=== PATIENT | male | born 1950 | race Caucasian/White ===

== ENCOUNTER 2016-07-08 13:02 | Inpatient (IN) | payer OTHER ==
[~2016-07-08] VITALS: Ht 177.8 cm; Wt 80.1 kg
[~2016-07-08 13:02] MED LIST: ALBU0.08 INH; ALBUAER2 INH; BUSP5TAB59 PO; CLC100X PO; EPP3/2 IM; GFNSR600 PO; OMEP20CA9 PO; SERT100T PO; SUCR1TAB29 PO; SYMIN160 INH; TIOTCAP INH; TRAZ150T64 PO; ULT50X PO
[2016-07-08] MEDS ORDERED: ALBUT/IPRATROP 3MG/0.5MG NEB 3 ML VIAL INH STA (13:14)
[2016-07-08] MEDS ORDERED: METHYLPREDNISOLONE 125 MG VIAL IV STA (13:18)
[2016-07-08] MEDS ORDERED: KETOROLAC TROMETHAMINE 30 MG/ML VIAL IV STA (13:24)
[2016-07-08 13:54] LABS: VEN BLOOD GAS BASE EXCESS 2.7 mmol/L; VENOUS BLOOD GAS PCO2 49 mmHg (38.0-50.0); VENOUS BLOOD GAS PO2 23 mmHg
[2016-07-08 13:55] LABS: VEN BLD GAS O2 SATURATION < 60.0 %
--- NOTE | 2016-07-08 13:59 | DIAGNOSTIC IMAGING REPORT ---
CHEST ONE VIEW PORTABLE HISTORY: Short of breath. COMPARISON: Chest 05/19/2016. FINDINGS: No pneumothorax. No pleural effusions. The heart is normal in size. Emphysema. The upper lung zones are clear. Punctate calcified granuloma within the left midlung zone. Bilateral mid to lower lung zone interstitial thickening is slightly progressed. There is a calcified granuloma the right lung base. IMPRESSION: 1. Slight progression of bilateral mid to lower lung zone interstitial thickening. This could be chronic or due to superimposed interstitial pneumonitis. Follow-up chest x-ray is recommended to ensure resolution. 2. Emphysema. Electronically signed by: Martin Perez M.D. 07/08/2016 1:58 PM Dictated Date/Time: 07/08/2016 1:55 PM
[2016-07-08 14:00] LABS: BASO % 0.1 %; BASO ABS # 0.01 K/uL (0-0.2); COMPLETE YES; HEMATOCRIT 43.4 % (42-52); IG% 0.1 %; LYMPH % 7.3 %; LYMPH ABS # 0.54 K/uL (1.2-3.4); MEAN CELL VOLUME 87.7 fL (80-100); MEAN CORPUSCULAR HEMOGLOBIN 29.7 pg (25-34); MEAN CORPUSCULAR HGB CONC 33.9 g/dl (32-36); MEAN PLATELET VOLUME 9.4 fL (7.4-10.4); MONO % 5.7 %; NEUT % 86.8 %; PLATELET COUNT 173 K/uL (130-400); RED BLOOD COUNT 4.95 M/uL (4.7-6.1); WHITE BLOOD COUNT 7.39 K/uL (4.8-10.8)
[2016-07-08 14:16] LABS: BUN/CREATININE RATIO 13.1 (10-20); CALCIUM 8.4 mg/dl (8.5-10.1); CREATININE 1.4 mg/dl (0.60-1.40); POTASSIUM 3.6 mmol/L (3.5-5.1)
[2016-07-08 14:18] LABS: ALB/GLOB RATIO 0.9 (0.9-2)
[2016-07-08] MEDS ORDERED: ONDANSETRON INJ 2 MG/ML 2 ML VIAL IV PRN (14:30)
[2016-07-08 14:58] VITALS: O2SAT 90; Ht 177.8 cm; Wt 80.1 kg
[2016-07-08 15:19] VITALS: BP 99/62; PULSE 85; TEMP 36.8; O2SAT 88
--- NOTE | 2016-07-08 15:41 | EMERGENCY ROOM VISIT NOTE ---
History Report prepared by Georgi: Benedicto Polanco Under the Supervision of: Dr. Gerson Judd D.O. First contact with patient: 13:10 Chief Complaint: SHORTNESS OF BREATH Stated Complaint: SOB,BODY ACHES,HEADACHE Nursing Triage Summary: pt here with increased sob x a few days. pt wears 2 liters at all times. pt has hx of copd. t has non prod cough History of Present Illness The patient is a 66 year old male who presents to the Emergency Room with complaints of worsening difficulty breathing for the past 3 days. The patient additionally complains of coughing, diarrhea, nausea, a headache, and rhinorrhea. The patient states that he has COPD. He denies any history of blood clots or using any blood thinners. He states that he gets short of breath without walking around. The patient states that he has a history of pneumonia in May. Pt denies change in vision, fevers, chest pain, vomiting, pain with urination, and melena. The patient takes 2L nasal cannula at night and PRN Source of History: patient Onset: three days ago Position: other (global) Quality: other (shortness of breath) Timing: worsening Associated Symptoms: + cough, + diarrhea, + headache, + nausea Note: Associated symptoms: Rhinorrhea Review of Systems See HPI for pertinent positives & negatives. A total of 10 systems reviewed and were otherwise negative. 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 (4) PTSD (post-traumatic stress disorder) Surgical Problems: (1) H/O hernia repair (2) S/P knee replacement Family History Cancer Heart disease Hypertension Social History Smoking Status: Former Smoker Alcohol Use: none Drug Use: none Marital Status: Housing Status: unknown Occupation Status: employed Current/Historical Medications Scheduled Budesonide/Formoterol Fumarate (Symbicort 160/4.5 Inhaler ), 2 PUFF INH BID Buspirone Hcl (Buspirone Hcl), 5 MG PO HS Docusate Sodium (Colace), 100 MG PO BID Guaifenesin Ext Rel (Mucinex Ext Rel), 600 MG PO Q12 Omeprazole (Prilosec), 20 MG PO BID Sertraline Hcl (Zoloft), 200 MG PO HS Sucralfate (Carafate), 1 TAB PO QID Tiotropium [place] (Spiriva Handihaler), 1 CAP INH DAILY Trazodone Hcl (Desyrel), 150 MG PO HS Scheduled PRN Albuterol (Ventolin), 2 PUFFS INH Q6H PRN for Rescue/Asthma Symptoms Albuterol Soln (Proventil 0.083% 2.5MG/3ML), 2.5 MG INH QID PRN for SOB/Wheezing Epinephrine (Epipen 2-Wilman), 0.3 MG IM UD PRN for ALLERGIC REACTION Tramadol HCl (Tramadol HCl), 50 MG PO Q6H PRN for Pain Allergies Coded Allergies: Pneumococcal Vaccine (Verified Allergy, Severe, SWELLING, 05/19/16) Prednisone (Verified Allergy, Severe, confusion and agitation, 05/19/16) Amoxicillin (Verified Allergy, Intermediate, FACIAL SWELLING (EYES SWELLED SHUT), 05/19/16) SPOKE W/ PATIENT REGARDING ALLERGYON 10/09/11--> FACIAL SWELLING, EYES SWELLED SHUT WITH SUGMENTIN. PATIENT HAS TOLERATED ROCEPHIN IV IN PAST. Clavulanic Acid (Verified Allergy, Intermediate, FACIAL SWELLING (EYES SWELLED SHUT), 05/19/16) SEE COMMENT UNDER AMOXICILLIN Statins (Verified Allergy, Unknown, UNKNOWN, 05/19/16) Physical Exam Vital Signs Date Time Temp Pulse Resp B/P Pulse Ox O2 Delivery O2 Flow Rate FiO2 07/08/16 15:19 36.8 85 22 99/62 88 Nasal Cannula 6.0 Humidified Oxygen 07/08/16 15:13 75 23 107/51 90 07/08/16 14:58 90 Nasal Cannula 4.0 07/08/16 14:51 81 23 107/51 90 Nasal Cannula 4.0 07/08/16 13:53 84 07/08/16 13:25 92 Nasal Cannula 4.0 07/08/16 13:25 92 Nasal Cannula 4.0 07/08/16 13:04 36.4 104 20 103/65 85 Nasal Cannula 2.0 Physical Exam GENERAL: Sitting up in bed on nasal cannula. Dyspneic with conversation. EYE EXAM: normal conjunctiva OROPHARYNX: no exudate, no erythema, lips, buccal mucosa, and tongue normal and mucous membranes are moist NECK: supple, no nuchal rigidity, no adenopathy, non-tender LUNGS: Diffuse wheezing bilaterally. Coarse sounds at the bases and minimal air movement. Normal chest wall mechanics HEART: no murmurs, S1 normal and S2 normal ABDOMEN: abdomen soft, non-tender, normo-active bowel sounds, no masses, no rebound or guarding. BACK: Back is symmetrical on inspection and there is no deformity, no midline tenderness, no CVA tenderness. SKIN: no rashes and no bruising UPPER EXTREMITIES: upper extremities are grossly normal. LOWER EXTREMITIES: Calves are equal bilaterally. No pitting edema. NEURO EXAM: Normal sensorium, cranial nerves II-XII grossly intact, normal speech, no gross weakness of arms, no gross weakness of legs. Gross sensation intact. Medical Decision & Procedures ER Provider Diagnostic Interpretation: Xray results per the radiologist and my interpretation. CHEST ONE VIEW PORTABLE HISTORY: Short of breath. COMPARISON: Chest 05/19/2016. FINDINGS: No pneumothorax. No pleural effusions. The heart is normal in size. Emphysema. The upper lung zones are clear. Punctate calcified granuloma within the left midlung zone. Bilateral mid to lower lung zone interstitial thickening is slightly progressed. There is a calcified granuloma the right lung base. IMPRESSION: 1. Slight progression of bilateral mid to lower lung zone interstitial thickening. This could be chronic or due to superimposed interstitial pneumonitis. Follow-up chest x-ray is recommended to ensure resolution. 2. Emphysema. Electronically signed by: Martin Perez M.D. 07/08/2016 1:58 PM Dictated Date/Time: 07/08/2016 1:55 PM Laboratory Results 07/08/16 13:44 Red Blood Count 4.95, Mean Corpuscular Volume 87.7, Mean Corpuscular Hemoglobin 29.7, Mean Corpuscular Hemoglobin Concent 33.9, Mean Platelet Volume 9.4, Neutrophils (%) (Auto) 86.8, Lymphocytes (%) (Auto) 7.3, Monocytes (%) (Auto) 5.7, Eosinophils (%) (Auto) 0.0, Basophils (%) (Auto) 0.1, Neutrophils # (Auto) 6.41, Lymphocytes # (Auto) 0.54, Monocytes # (Auto) 0.42, Eosinophils # (Auto) 0.00, Basophils # (Auto) 0.01 07/08/16 13:44 Test 07/08/16 13:40 07/08/16 13:44 Influenza Type A Antigen Neg for Influ A (NEG) Influenza Type B Antigen Neg for Influ B (NEG) White Blood Count 7.39 K/uL (4.8-10.8) Red Blood Count 4.95 M/uL (4.7-6.1) Hemoglobin 14.7 g/dL (14.0-18.0) Hematocrit 43.4 % (42-52) Mean Corpuscular Volume 87.7 fL (80-100) Mean Corpuscular Hemoglobin 29.7 pg (25-34) Mean Corpuscular Hemoglobin Concent 33.9 g/dl (32-36) Platelet Count 173 K/uL (130-400) Mean Platelet Volume 9.4 fL (7.4-10.4) Neutrophils (%) (Auto) 86.8 % Lymphocytes (%) (Auto) 7.3 % Monocytes (%) (Auto) 5.7 % Eosinophils (%) (Auto) 0.0 % Basophils (%) (Auto) 0.1 % Neutrophils # (Auto) 6.41 K/uL (1.4-6.5) Lymphocytes # (Auto) 0.54 K/uL (1.2-3.4) Monocytes # (Auto) 0.42 K/uL (0.11-0.59) Eosinophils # (Auto) 0.00 K/uL (0-0.5) Basophils # (Auto) 0.01 K/uL (0-0.2) RDW Standard Deviation 45.0 fL (36.4-46.3) RDW Coefficient of Variation 14.1 % (11.5-14.5) Immature Granulocyte % (Auto) 0.1 % Immature Granulocyte # (Auto) 0.01 K/uL (0.00-0.02) Venous Blood pH 7.39 (7.36-7.41) Venous Blood Partial Pressure CO2 49 mmHg (38.0-50.0) Venous Blood Partial Pressure O2 23 mmHg Venous Blood HCO3 29 mmol/L Venous Blood Oxygen Saturation < 60.0 % Venous Blood Base Excess 2.7 mmol/L Anion Gap 11.0 mmol/L (3-11) Est Creatinine Clear Calc Drug Dose 53.6 ml/min Estimated GFR () 60.3 Estimated GFR (Non- 52.0 BUN/Creatinine Ratio 13.1 (10-20) Calcium Level 8.4 mg/dl (8.5-10.1) Total Bilirubin 0.4 mg/dl (0.2-1) Aspartate Amino Transf (AST/SGOT) 77 U/L (15-37) Alanine Aminotransferase (ALT/SGPT) 43 U/L (12-78) Alkaline Phosphatase 81 U/L (45-117) Total Protein 7.1 gm/dl (6.4-8.2) Albumin 3.4 gm/dl (3.4-5.0) Globulin 3.7 gm/dl (2.5-4.0) Albumin/Globulin Ratio 0.9 (0.9-2) Laboratory results per my review. Medications Administered Medications (Trade) Dose Ordered Sig/Oren Route Start Time Stop Time Status Last Admin Dose Admin Albuterol/ Ipratropium (Duoneb) 3 ml NOW STAT INH 07/08/16 13:14 07/08/16 13:16 DC 07/08/16 13:50 3 ML Methylprednisolone Sodium Succinate (Solu-Medrol IV) 125 mg NOW STAT IV 07/08/16 13:18 07/08/16 13:19 DC 07/08/16 13:50 125 MG Ketorolac Tromethamine (Toradol Inj) 30 mg NOW STAT IV 07/08/16 13:24 07/08/16 13:35 DC 07/08/16 13:50 30 MG ECG Indication: SOB/dyspnea Rate (beats per minute): 87 Rhythm: sinus rhythm Findings: Q waves (Inferior), left axis deviation ED Course ED COURSE: Vital signs were reviewed and showed normal vitals The patients medical record was reviewed The above diagnostic studies were performed and reviewed. ED treatments and interventions as stated above. 1310: The patient was evaluated in room A12. A complete history and physical examination was performed. 1314: DuoNeb 3ml INH 1318: Solu-Medrol 125mg IV 1324: Toradol Inj 30mg IV 1410: I discussed the patient's case with Dr. Rowe. He is going to evaluate the patient for further treatment 1418: Upon reevaluation, the patient is resting.I discussed my findings with the patient and he understands and agrees with the treatment plan. Based on the patients age, coexisting illnesses, exam and lab findings the decision to treat as an inpatient was made. The patient remained stable while under my care. The patient will be evaluated for further management. Medical Decision Differential diagnoses includes but is not limited to pneumonia, bronchitis, COPD/Asthma exacerbation, pneumothorax, pulmonary embolism, congestive heart failure, acute coronary syndrome Patient is a 66-year-old male with emphysema/COPD that presents the ER for 3 days worth of worsening shortness of breath associated with cough and change in sputum. Afebrile. Upon presentation he is hypoxic with O2 sats in the low 80s on his 2 L nasal cannula. He was titrated up to 5 L nasal cannula and oxygen saturation saturations floated from 88% to 90%. I was comfortable with this. He was much improved. Vitals were otherwise stable. Calves are equal bilateral. He is given hour long DuoNeb along with steroids and Levaquin. Chest x-ray showed questionable worsening consolidation the right mid to lower lung. Patient/family were updated at bedside. He was admitted to internal medicine for COPD exacerbation along with hypoxia. Negative influenza A and B. Consults Time Called: 1406 Consulting Physician: Dr. Rowe Returned Call: 1410 I discussed the patient's case with Dr. Rowe. He is going to evaluate the patient for further treatment Impression Primary Impression: COPD exacerbation Additional Impressions: Bronchitis Hypoxia Scribe Attestation The scribe's documentation has been prepared under my direction and personally reviewed by me in its entirety. I confirm that the note above accurately reflects all work, treatment, procedures, and medical decision making performed by me. Departure Information Dispostion Being Evaluated By Hospitalist Referrals No Doctor, Assigned (PCP) Patient Instructions My [facility] Problem Qualifiers
[2016-07-08] MEDS: TRAMADOL HCL 50 MG TAB PO PRN (15:50)
[2016-07-08] MEDS: ALBUT/IPRATROP 3MG/0.5MG NEB 3 ML VIAL INH SCH ×2 (17:00→19:19)
[2016-07-08] MEDS ORDERED: INFLUENZA VIRUS QUAD VACCINE 0.5 ML SYR IM. ONE (17:30)
[2016-07-08] MEDS ORDERED: INFLUENZA ADMINISTRATION CHARGE ONE (17:30)
--- NOTE | 2016-07-08 18:01 | History and Physical ---
History & Physical Date & Time of Service: Jul 08, 2016 at 16:24 Chief Complaint: Copd Exacerbation,Hypoxia Primary Care Physician: No Doctor, Assigned History of Present Illness Source: patient, family, hospital records 66 yo male with history of COPD with admissions for exacerbations, most recent in the beginning of May (1.5 months ago), presented to the ED with 2 days of worsening shortness of breath, increased cough, night sweats, decreased appetite. He says that since he was discharged in May he has felt well, these symptoms seemed to come on all of a sudden. He admits that he was around a family member last week who had the flu and he did not get his flu vaccine this past year. His cough has been more frequent, minimal sputum. More wheezing at home. He typically wears 2L NC at all times and despite that he was short of breath. No chest pain or pressure. In the ED he was hypoxic with saturations 81% on 2L. Normal lab work and CXR without an infiltrate. Given hour long nebulizer and started on Solumedrol. 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 DEMO COORDINATOR vasculitis Status: Chronic (4) PTSD (post-traumatic stress disorder) Status: Chronic Surgical Problems: (1) H/O hernia repair Status: Resolved (2) S/P knee replacement Status: Resolved Family History Family history of rectal cancer, kidney cancer, hypertension, heart disease Social History Smoking Status: Former Smoker (40 years at 2ppd (80 pack years)) Smokeless Tobacco Use: No Alcohol Use: none Drug Use: none Marital Status: Housing status: lives with family 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[employer], 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) Immunizations History of Influenza Vaccine: Yes Influenza Vaccine Date: Apr 20, 2011 History of Tetanus Vaccine?: Yes Tetanus Immunization Date: Jan 19, 2010 History of Pneumococcal: Yes Pneumococcal Date: Apr 20, 2011 History of Hepatitis B Vaccine: No Multi-Drug Resistant Organisms History of MDRO: No Allergies Coded Allergies: Pneumococcal Vaccine (Verified Allergy, Severe, SWELLING, 05/19/16) Prednisone (Verified Allergy, Severe, confusion and agitation, 05/19/16) Amoxicillin (Verified Allergy, Intermediate, FACIAL SWELLING (EYES SWELLED SHUT), 05/19/16) SPOKE W/ PATIENT REGARDING ALLERGYON 5/1/12--> FACIAL SWELLING, EYES SWELLED SHUT WITH SUGMENTIN. PATIENT HAS TOLERATED ROCEPHIN IV IN PAST. Clavulanic Acid (Verified Allergy, Intermediate, FACIAL SWELLING (EYES SWELLED SHUT), 05/19/16) SEE COMMENT UNDER AMOXICILLIN Statins (Verified Allergy, Unknown, UNKNOWN, 05/19/16) Home Medications Scheduled Budesonide/Formoterol Fumarate (Symbicort 160/4.5 Inhaler ), 2 PUFF INH BID Buspirone Hcl (Buspirone Hcl), 5 MG PO HS Docusate Sodium (Colace), 100 MG PO BID Guaifenesin Ext Rel (Mucinex Ext Rel), 600 MG PO Q12 Omeprazole (Prilosec), 20 MG PO BID Sertraline Hcl (Zoloft), 200 MG PO HS Sucralfate (Carafate), 1 TAB PO QID Tiotropium [place] (Spiriva Handihaler), 1 CAP INH DAILY Trazodone Hcl (Desyrel), 150 MG PO HS Scheduled PRN Albuterol (Ventolin), 2 PUFFS INH Q6H PRN for Rescue/Asthma Symptoms Albuterol Soln (Proventil 0.083% 2.5MG/3ML), 2.5 MG INH QID PRN for SOB/Wheezing Epinephrine (Epipen 2-Wilman), 0.3 MG IM UD PRN for ALLERGIC REACTION Tramadol HCl (Tramadol HCl), 50 MG PO Q6H PRN for Pain Review of Systems Constitutional: + chills, + fatigue, + fever, + sweats, + weakness, No weight loss Eyes: No diplopia, No discharge, No eye pain, No problem reported, No redness, No worsening of vision ENT: + nasal symptoms, No dental problems, No hearing loss, No problem reported , No sore throat, No tinnitus, No trouble swallowing, No unusual epistaxis Respiratory: + cough, + dyspnea at rest, + dyspnea on exertion, + shortness of breath, + wheezing, No hemoptysis, No sputum Cardiovascular: No PND, No chest pain, No claudication, No edema, No orthopnea , No palpitations, No problem reported Abdomen: + problem reported (decreased appetite), No GI bleeding, No constipation, No diarrhea, No nausea, No pain, No vomiting Genitourinary - Male: No dysuria, No hematuria, No urinary frequency, No urinary urgency Neurologic: No balance problems, No memory loss, No numbness/tingling, No paralysis, No problem reported, No vertigo, No weakness Psychiatric: No anhedonism, No anxiety, No depression symptoms, No insomnia, No problem reported, No substance abuse Endocrine: No excessive thirst, No excessive urination, No fatigue, No problem reported Hematologic / Lymphatic: No abnormal bleeding/bruising, No clotting problems, No night sweats, No problem reported, No swollen lymph nodes Integumentary: No bleeding, No color change, No itch, No new/changing skin lesions, No problem reported, No rash Allergic / Immunologic: No environmental allergies, No food allergies, No frequent infections, No hives, No pet sensitivities, No poor healing, No problem reported, No prolonged convalescence, No seasonal allergies Physical Exam Vital Signs Date Time Temp Pulse Resp B/P Pulse Ox O2 Delivery O2 Flow Rate FiO2 07/08/16 15:19 36.8 85 22 99/62 88 Nasal Cannula 6.0 Humidified Oxygen 07/08/16 15:13 75 23 107/51 90 07/08/16 14:58 90 Nasal Cannula 4.0 07/08/16 14:51 81 23 107/51 90 Nasal Cannula 4.0 07/08/16 13:53 84 07/08/16 13:25 92 Nasal Cannula 4.0 07/08/16 13:25 92 Nasal Cannula 4.0 07/08/16 13:04 36.4 104 20 103/65 85 Nasal Cannula 2.0 General Appearance: WD/WN, no apparent distress Head: normocephalic, atraumatic Eyes: normal inspection, EOMI, sclerae normal ENT: normal ENT inspection, hearing grossly normal, pharynx normal Neck: supple, no adenopathy, no JVD, trachea midline Respiratory/Chest: chest non-tender, no respiratory distress, no accessory muscle use, + decreased breath sounds, + wheezing Cardiovascular: regular rate, rhythm, no edema, no gallop, no JVD, no murmur, normal peripheral pulses Abdomen/GI: normal bowel sounds, non tender, soft, no organomegaly Back: normal inspection, no CVA tenderness, no muscle spasm, normal range of motion Extremities/Musculoskelatal: normal inspection, no calf tenderness, normal capillary refill, no pedal edema, normal range of motion, pelvis stable Neurologic/Psych: cafe assistant II-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 nml as tested, no motor/sensory deficits, alert, normal mood/affect, normal reflexes, oriented x 3 Skin: normal color, warm/dry, no rash Lymphatic: no adenopathy Diagnostics Laboratory Results Results Past 24 Hours Test 07/08/16 13:40 07/08/16 13:44 Range/Units Influenza Type A Antigen Neg for Influ A NEG Influenza Type B Antigen Neg for Influ B NEG White Blood Count 7.39 4.8-10.8 K/uL Red Blood Count 4.95 4.7-6.1 M/uL Hemoglobin 14.7 14.0-18.0 g/dL Hematocrit 43.4 42-52 % Mean Corpuscular Volume 87.7 80-100 fL Mean Corpuscular Hemoglobin 29.7 25-34 pg Mean Corpuscular Hemoglobin Concent 33.9 32-36 g/dl Platelet Count 173 130-400 K/uL Mean Platelet Volume 9.4 7.4-10.4 fL Neutrophils (%) (Auto) 86.8 % Lymphocytes (%) (Auto) 7.3 % Monocytes (%) (Auto) 5.7 % Eosinophils (%) (Auto) 0.0 % Basophils (%) (Auto) 0.1 % Neutrophils # (Auto) 6.41 1.4-6.5 K/uL Lymphocytes # (Auto) 0.54 1.2-3.4 K/uL Monocytes # (Auto) 0.42 0.11-0.59 K/uL Eosinophils # (Auto) 0.00 0-0.5 K/uL Basophils # (Auto) 0.01 0-0.2 K/uL RDW Standard Deviation 45.0 36.4-46.3 fL RDW Coefficient of Variation 14.1 11.5-14.5 % Immature Granulocyte % (Auto) 0.1 % Immature Granulocyte # (Auto) 0.01 0.00-0.02 K/uL Venous Blood pH 7.39 7.36-7.41 Venous Blood Partial Pressure CO2 49 38.0-50.0 mmHg Venous Blood Partial Pressure O2 23 mmHg Venous Blood HCO3 29 mmol/L Venous Blood Oxygen Saturation < 60.0 % Venous Blood Base Excess 2.7 mmol/L Sodium Level 133 136-145 mmol/L Potassium Level 3.6 3.5-5.1 mmol/L Chloride Level 95 98-107 mmol/L Carbon Dioxide Level 27 21-32 mmol/L Anion Gap 11.0 3-11 mmol/L Blood Urea Nitrogen 18 7-18 mg/dl Creatinine 1.40 0.60-1.40 mg/dl Est Creatinine Clear Calc Drug Dose 53.6 ml/min Estimated GFR () 60.3 Estimated GFR (Non- 52.0 BUN/Creatinine Ratio 13.1 10-20 Random Glucose 132 70-99 mg/dl Calcium Level 8.4 8.5-10.1 mg/dl Total Bilirubin 0.4 0.2-1 mg/dl Aspartate Amino Transf (AST/SGOT) 77 15-37 U/L Alanine Aminotransferase (ALT/SGPT) 43 12-78 U/L Alkaline Phosphatase 81 45-117 U/L Total Protein 7.1 6.4-8.2 gm/dl Albumin 3.4 3.4-5.0 gm/dl Globulin 3.7 2.5-4.0 gm/dl Albumin/Globulin Ratio 0.9 0.9-2 Diagnostic Radiology CXR: bilateral interstitial thickening, slightly progressed from prior x-ray Impression Assessment and Plan 66 yo male with COPD exacerbation and acute on chronic hypoxia - COPD exacerbation: Solumedrol 40mg q12, Levaquin 750mg PO daily, nebulizers of note, patient cannot tolerate oral steroids, prior admission he was set up for IM steroids as outpatient will resume maintenance inhalers as breathing returns closer to baseline - Acute on chronic hypoxic respiratory failure: saturations improved on 4L, will titrate back to 2L as tolerated - GERD: PPI - Depression/Insomnia: continue home medications - DVT prophylaxis: Lovenox Level of Care Telemetry Advanced Directives Existing Advance Directive: No Existing Living Will: No Existing Power of Wild Oyster Harvester: No Resuscitation Status FULL RESUSCITATION VTE Prophylaxis VTE Risk Assessment Done? Y/N: Yes Risk Level: Moderate Given or contraindicated: Enoxaparin (Lovenox)SQ
[2016-07-08] MEDS: ENOXAPARIN 40 MG/0.4 ML SYR SC SCH (18:10)
[2016-07-08] MEDS: SUCRALFATE 1 GM TAB PO SCH ×2 (18:10→20:11)
[2016-07-08 19:10] VITALS: BP 111/61; PULSE 71; TEMP 36.7; O2SAT 90
[2016-07-08 19:20] VITALS: PULSE 95; O2SAT 90
[2016-07-08 20:00] VITALS: O2SAT 90
[2016-07-08] MEDS: PANTOprazole SOD 40 MG TAB PO SCH (20:11)
[2016-07-08] MEDS: GUAIFENESIN 600 MG TABCR PO SCH (20:11)
[2016-07-08] MEDS: DOCUSATE SODIUM 100 MG CAP PO SCH (20:12)
[2016-07-08] MEDS: TRAZODONE HCL 50 MG TAB PO SCH (20:12)
[2016-07-08] MEDS: SERTRALINE HCL 100 MG TAB PO SCH (20:13)
[2016-07-08 23:59] VITALS: O2SAT 90
[2016-07-09] VITALS (13 sets, daily range): BP systolic 108–122; BP diastolic 68–75; PULSE 56–82; TEMP 36.3–36.8; O2SAT 90–95
[2016-07-09] MEDS: METHYLPREDNISOLONE IV 40 MG in SYRINGE 0 ML IV SCH ×2 (01:10→14:25)
[2016-07-09 06:47] LABS: BASO % 0.2 %; BASO ABS # 0.01 K/uL (0-0.2); COMPLETE YES; HEMATOCRIT 42.3 % (42-52); IG% 0.2 %; LYMPH % 16.5 %; LYMPH ABS # 0.91 K/uL (1.2-3.4); MEAN CELL VOLUME 87.9 fL (80-100); MEAN CORPUSCULAR HEMOGLOBIN 30.8 pg (25-34); MEAN PLATELET VOLUME 9.7 fL (7.4-10.4); MONO % 5.2 %; NEUT % 77.9 %; PLATELET COUNT 172 K/uL (130-400); RED BLOOD COUNT 4.81 M/uL (4.7-6.1); WHITE BLOOD COUNT 5.53 K/uL (4.8-10.8)
[2016-07-09] MEDS: ALBUT/IPRATROP 3MG/0.5MG NEB 3 ML VIAL INH SCH ×4 (07:18→19:21)
[2016-07-09 07:33] LABS: BUN/CREATININE RATIO 17.3 (10-20); CALCIUM 8.9 mg/dl (8.5-10.1); CREATININE 1.1 mg/dl (0.60-1.40); MAGNESIUM 2.6 mg/dl (1.8-2.4); POTASSIUM 4.4 mmol/L (3.5-5.1)
--- NOTE | 2016-07-09 08:01 | Hospitalist Progress Note ---
Hospitalist Progress Note Date of Service Jul 09, 2016. (Bekah Hayes PA-C) Subjective Pt evaluation today including: conversation w/ patient, physical exam, chart review, lab review, review of studies, review of inpatient medication list Pain: None PO Intake: Good Voiding: no voiding problems The patient was seen and examined this morning. Pt reports breathing is much improved today. He has been using duoneb treatments as scheduled along with IV solumedrol. While up walking the patient still has some dyspnea on exertion. He normally wears 3 L O2 but currently is sating 88-89% on 4 L via NC. Constitutional: No chills, No fever, No sweats Eyes: No diplopia ENT: No sore throat, No tinnitus Respiratory: + dyspnea on exertion, + see HPI, No cough, No dyspnea at rest , No sputum Cardiovascular: No chest pain, No palpitations Abdomen: No constipation, No diarrhea, No nausea, No pain, No vomiting Musculoskeletal: No joint pain, No muscle pain, No swelling Male : No dysuria Neurologic: No balance problems, No weakness Skin: No rash (Bekah Hayes PA-C) Objective Vital Signs Date Time Temp Pulse Resp B/P Pulse Ox O2 Delivery O2 Flow Rate FiO2 07/09/16 07:25 36.4 61 18 114/71 95 6.0 07/09/16 07:18 66 18 93 Nasal Cannula 6.0 07/09/16 04:00 90 Nasal Cannula 6.0 07/09/16 03:59 36.4 56 18 111/75 95 Nasal Cannula 6.0 07/09/16 00:15 36.8 64 18 108/70 94 Nasal Cannula 6.0 07/08/16 23:59 90 Nasal Cannula 6.0 07/08/16 20:00 90 Nasal Cannula 6.0 07/08/16 19:20 95 18 90 Nasal Cannula 6.0 07/08/16 19:10 36.7 71 18 111/61 90 Nasal Cannula 6.0 Humidified Oxygen 07/08/16 16:00 Room Air 6.0 Humidified Oxygen 07/08/16 15:19 36.8 85 22 99/62 88 Nasal Cannula 6.0 Humidified Oxygen 07/08/16 15:13 75 23 107/51 90 07/08/16 14:58 90 Nasal Cannula 4.0 07/08/16 14:51 81 23 107/51 90 Nasal Cannula 4.0 07/08/16 13:53 84 07/08/16 13:25 92 Nasal Cannula 4.0 07/08/16 13:25 92 Nasal Cannula 4.0 07/08/16 13:04 36.4 104 20 103/65 85 Nasal Cannula 2.0 (Bekah Hayes PA-C) Physical Exam General Appearance: WD/WN, no apparent distress, + thin Eyes: PERRL, EOMI ENT: hearing grossly normal, pharynx normal, + pertinent finding (mucous membranes moist) Neck: supple, no JVD Respiratory/Chest: no respiratory distress, no accessory muscle use, + pertinent finding (+ wheezing in the R lobe throughout, + Wheeze in the CARL. Diminished breath sounds at bases bilaterally. + Faint rhonchi in the RLL. ) Cardiovascular: regular rate, rhythm, no murmur Abdomen: normal bowel sounds, non tender Extremities: non-tender, no pedal edema, no calf tenderness Neurologic/Psychiatric: alert, normal mood/affect, oriented x 3 Skin: normal color, warm/dry (Bekah Hayes PA-C) Laboratory Results Last 24 Hours Test 07/08/16 13:40 07/08/16 13:44 07/09/16 06:18 Influenza Type A Antigen Neg for Influ A Influenza Type B Antigen Neg for Influ B White Blood Count 7.39 K/uL 5.53 K/uL Red Blood Count 4.95 M/uL 4.81 M/uL Hemoglobin 14.7 g/dL 14.8 g/dL Hematocrit 43.4 % 42.3 % Mean Corpuscular Volume 87.7 fL 87.9 fL Mean Corpuscular Hemoglobin 29.7 pg 30.8 pg Mean Corpuscular Hemoglobin Concent 33.9 g/dl 35.0 g/dl Platelet Count 173 K/uL 172 K/uL Mean Platelet Volume 9.4 fL 9.7 fL Neutrophils (%) (Auto) 86.8 % 77.9 % Lymphocytes (%) (Auto) 7.3 % 16.5 % Monocytes (%) (Auto) 5.7 % 5.2 % Eosinophils (%) (Auto) 0.0 % 0.0 % Basophils (%) (Auto) 0.1 % 0.2 % Neutrophils # (Auto) 6.41 K/uL 4.31 K/uL Lymphocytes # (Auto) 0.54 K/uL 0.91 K/uL Monocytes # (Auto) 0.42 K/uL 0.29 K/uL Eosinophils # (Auto) 0.00 K/uL 0.00 K/uL Basophils # (Auto) 0.01 K/uL 0.01 K/uL RDW Standard Deviation 45.0 fL 45.6 fL RDW Coefficient of Variation 14.1 % 14.0 % Immature Granulocyte % (Auto) 0.1 % 0.2 % Immature Granulocyte # (Auto) 0.01 K/uL 0.01 K/uL Venous Blood pH 7.39 Venous Blood Partial Pressure CO2 49 mmHg Venous Blood Partial Pressure O2 23 mmHg Venous Blood HCO3 29 mmol/L Venous Blood Oxygen Saturation < 60.0 % Venous Blood Base Excess 2.7 mmol/L Sodium Level 133 mmol/L 135 mmol/L Potassium Level 3.6 mmol/L 4.4 mmol/L Chloride Level 95 mmol/L 98 mmol/L Carbon Dioxide Level 27 mmol/L 28 mmol/L Anion Gap 11.0 mmol/L 9.0 mmol/L Blood Urea Nitrogen 18 mg/dl 19 mg/dl Creatinine 1.40 mg/dl 1.10 mg/dl Est Creatinine Clear Calc Drug Dose 53.6 ml/min 68.2 ml/min Estimated GFR () 60.3 80.6 Estimated GFR (Non- 52.0 69.6 BUN/Creatinine Ratio 13.1 17.3 Random Glucose 132 mg/dl 146 mg/dl Calcium Level 8.4 mg/dl 8.9 mg/dl Total Bilirubin 0.4 mg/dl Aspartate Amino Transf (AST/SGOT) 77 U/L Alanine Aminotransferase (ALT/SGPT) 43 U/L Alkaline Phosphatase 81 U/L Total Protein 7.1 gm/dl Albumin 3.4 gm/dl Globulin 3.7 gm/dl Albumin/Globulin Ratio 0.9 Magnesium Level 2.6 mg/dl (Bekah Hayes, PAMaribelC) Assessment and Plan 66 yo male with COPD exacerbation and acute on chronic hypoxia COPD exacerbation: - Cont Solumedrol 40mg q12, Levaquin 750mg PO daily, nebulizers - of note, patient cannot tolerate oral steroids, prior admission he was set up for IM steroids as outpatient will resume maintenance inhalers as breathing returns closer to baseline - Breath sounds are present at bases but still with faint crackles in the RLL and + wheezing on exam. There are breath sounds throughout and the pt feels improved today. - O2 sats checked at bedside and are 88-89% on 4L via NC, home O2 is 3L. - CXR done 07/08/16 IMPRESSION: 1. Slight progression of bilateral mid to lower lung zone interstitial thickening. This could be chronic or due to superimposed interstitial pneumonitis. Follow-up chest x-ray is recommended to ensure resolution. 2. Emphysema. Acute on chronic hypoxic respiratory failure: - saturations improved on 4L, will titrate back to 3L as tolerated GERD: PPI Depression/Anxiety/Insomnia - continue home medications including zoloft 200 mg daily, trazodone 150 mg QHS , buspar 5 mg PO QHS DVT prophylaxis: Lovenox Disposition: From home, lives with . Continue management for now, likely discharge in 1-2 days depending on response to IV steroid. (Bekah Hayes PA-C) Reviewed: Pt Seen/Exam by Me, HO Notes, Prior Records, Labs, RAD (Lata Borja MD) History Agree with PA HPI/ROS. Pt much improved. (Lata Borja MD) All Other Systems: Reviewed and Negative (Lata Borja MD) General Appearance: WD/WN, no apparent distress (appears much older than stated age) Eye Exam: bilateral eye normal inspection Ears, Nose, Throat: hearing grossly normal, pharynx normal Neck: trachea midline Respiratory: decreased breath sounds (diminished throughout), crackles (at left base), wheezing (diffuse exp wheezing) Cardiovascular: regular rate, rhythm, no edema, no gallop, no murmur Gastrointestinal: normal bowel sounds, non tender, soft, no organomegaly, no pulsatile mass Extremities: non-tender, normal inspection, no pedal edema, no calf tenderness Neurologic/Psychiatric: alert, normal mood/affect, oriented x 3 Skin Characteristics: normal color, warm/dry, cyanosis (Lata Borja MD) Assessment/Plan AGree with PA A/P as above with the following exceptions/additions: AECOPD, acute hypoxemic respiratory failure-improved already on Levaquin, IV steroids. Problem will be that he absolutely cannot take po steroids due to previous h/o toxic encephalopathy. May need extended hospital course vs IM injections at [facility] as was arranged last month. CT chest from 05/11/16 showed irregular nodes, CXR here now with worsening interstitial prominence. He has Pulm appt as outpt and already has plans to have repeat CT chest in a few weeks from now. If worsens or not improving, will consider repeating CT chest while here. (Lata Borja MD)
[2016-07-09] MEDS: SUCRALFATE 1 GM TAB PO SCH ×4 (08:20→20:16)
[2016-07-09] MEDS: GUAIFENESIN 600 MG TABCR PO SCH ×2 (08:20→20:17)
[2016-07-09] MEDS: DOCUSATE SODIUM 100 MG CAP PO SCH ×2 (08:20→20:16)
[2016-07-09] MEDS: PANTOprazole SOD 40 MG TAB PO SCH ×2 (08:20→20:19)
[2016-07-09] MEDS: LEVOFLOXACIN 750 MG TAB PO SCH (12:57)
[2016-07-09 15:32] LABS: URINE APPEARANCE CLEAR (CLEAR); URINE BILIRUBIN NEG (NEG); URINE COLOR DK YELLOW; URINE EPITHELIAL CELL AUTO >30 /lpf (0-5); URINE NITRITE NEG (NEG); URINE SPECIFIC GRAVITY 1.022 (1.000-1.030); UROBILINOGEN NEG (NEG)
[2016-07-09 15:36] LABS: MANUAL MICROSCOPIC REQUIRED? NO; REVIEW REQ? YES
[2016-07-09] MEDS: ENOXAPARIN 40 MG/0.4 ML SYR SC SCH (17:26)
[2016-07-09] MEDS: TRAMADOL HCL 50 MG TAB PO PRN (17:38)
[2016-07-09] MEDS: SERTRALINE HCL 100 MG TAB PO SCH (20:17)
[2016-07-09] MEDS: TRAZODONE HCL 50 MG TAB PO SCH (20:19)
[2016-07-09] MEDS: ACETAMINOPHEN 325 MG TAB PO PRN (20:24)
[2016-07-10] VITALS (19 sets, daily range): BP systolic 92–139; BP diastolic 57–80; PULSE 59–97; TEMP 36.2–36.8; O2SAT 90–97
[2016-07-10] MEDS: METHYLPREDNISOLONE IV 40 MG in SYRINGE 0 ML IV SCH ×2 (02:00→14:39)
[2016-07-10] MEDS: ALBUT/IPRATROP 3MG/0.5MG NEB 3 ML VIAL INH SCH ×4 (07:12→19:58)
[2016-07-10] MEDS: GUAIFENESIN 600 MG TABCR PO SCH ×2 (07:52→20:25)
[2016-07-10] MEDS: DOCUSATE SODIUM 100 MG CAP PO SCH ×2 (07:52→20:24)
[2016-07-10] MEDS: SUCRALFATE 1 GM TAB PO SCH ×4 (07:53→20:29)
[2016-07-10] MEDS: TRAMADOL HCL 50 MG TAB PO PRN ×4 (07:59→22:23)
[2016-07-10] MEDS: PANTOprazole SOD 40 MG TAB PO SCH ×2 (08:58→20:27)
--- NOTE | 2016-07-10 09:14 | DIAGNOSTIC IMAGING REPORT ---
CHEST ONE VIEW PORTABLE CLINICAL HISTORY: Shortness of breath. COPD. Abnormal chest x-ray. COMPARISON STUDY: 07/08/2016 FINDINGS: The cardiac and mediastinal contours remain stable. The chest has an emphysematous configuration. There is radiographic evidence of pulmonary arterial hypertension. There are bilateral interstitial opacities with a lower lung zone predominance similar to the preceding study. There is no significant pleural fluid.[ IMPRESSION: 1. Emphysema 2. Bilateral interstitial opacities with a lower lung zone predominance, similar to the prior study. This is likely inflammatory. Continued radiographic follow-up is recommended. Electronically signed by: Herman Thornton M.D. 07/10/2016 9:12 AM Dictated Date/Time: 07/10/2016 9:10 AM
[2016-07-10] MEDS: LEVOFLOXACIN 750 MG TAB PO SCH (11:03)
[2016-07-10] MEDS: ACETAMINOPHEN 325 MG TAB PO PRN (14:40)
[2016-07-10] MEDS: ENOXAPARIN 40 MG/0.4 ML SYR SC SCH (17:20)
--- NOTE | 2016-07-10 18:53 | Hospitalist Progress Note ---
Hospitalist Progress Note Date of Service Jul 10, 2016. Subjective Pt evaluation today including: conversation w/ patient, physical exam, chart review, lab review, review of studies, review of inpatient medication list PO Intake: maria g po Pt feels about the same as yesterday. Reports when he got out of bed to go to the bathroom today he "almost passed out." He's focused this evening on getting cleaned up and wants to try walking around the hallway. Constitutional: No fever Respiratory: + shortness of breath Cardiovascular: No chest pain All Other Systems: Reviewed and Negative Objective Vital Signs Date Time Temp Pulse Resp B/P Pulse Ox O2 Delivery O2 Flow Rate FiO2 07/10/16 15:29 36.8 94 20 105/67 96 07/10/16 15:24 93 18 91 Nasal Cannula 3.0 07/10/16 15:06 97 Nasal Cannula 4.0 07/10/16 12:00 96 Nasal Cannula 4.0 07/10/16 11:39 36.8 81 18 92/57 90 07/10/16 11:11 81 18 91 Nasal Cannula 3.0 07/10/16 08:00 95 Nasal Cannula 4.0 07/10/16 07:58 36.8 59 18 139/80 96 07/10/16 07:12 77 18 94 Nasal Cannula 3.0 07/10/16 04:00 94 Nasal Cannula 4.0 07/10/16 03:12 36.4 77 18 112/72 94 Nasal Cannula 4.0 07/10/16 00:01 93 Nasal Cannula 4.0 07/09/16 23:55 36.3 81 20 109/68 93 Nasal Cannula 4.0 07/09/16 20:00 93 Nasal Cannula 4.0 07/09/16 19:44 36.6 81 18 118/74 93 07/09/16 19:21 81 18 92 Nasal Cannula 4.0 Physical Exam General Appearance: no apparent distress, + thin Eyes: normal inspection, sclerae normal Neck: trachea midline Respiratory/Chest: no respiratory distress, no accessory muscle use, + decreased breath sounds (throughout, +rales at right base, scattered exp wheezes ) Cardiovascular: regular rate, rhythm, no edema, no gallop, no murmur Abdomen: normal bowel sounds, non tender, soft Extremities: non-tender, normal inspection, no pedal edema, no calf tenderness Neurologic/Psychiatric: alert, normal mood/affect, oriented x 3 Skin: normal color, warm/dry, no rash Assessment and Plan 66 yo male with acute COPD exacerbation and acute on chronic hypoxemic respiratory failure-improving on Levaquin, IV steroids. Problem will be that he absolutely cannot take po steroids due to previous h/o toxic encephalopathy. [facility] need [facility], although pt reports he does not want to make his drive him all the way [facility] in this weather to do so. CT chest from 05/11/16 showed irregular nodes, CXR here now with worsening interstitial prominence. He has Pulm appt as outpt and already has plans to have repeat CT chest in a few weeks from now. CXR done 07/08/16 IMPRESSION: 1. Slight progression of bilateral mid to lower lung zone interstitial thickening. This could be chronic or due to superimposed interstitial pneumonitis. Follow-up chest x-ray is recommended to ensure resolution. 2. Emphysema. If worsens or not improving, will consider repeating CT chest while here. Repeat CXR 07/10 I reviewed images and looks slightly improved from admission. COPD exacerbation: - Cont Solumedrol 40mg q12, Levaquin 750mg PO daily, nebulizers -continue to wean back to home O2 which is 3L. GERD-stable -continue PPI Depression/Anxiety/Insomnia/PTSD-stable - continue home medications including zoloft 200 mg daily, trazodone 150 mg QHS , buspar 5 mg PO QHS DVT prophylaxis: Lovenox Disposition: From home, lives with . Continue management for now, likely discharge in 1-2 days depending on response to IV steroid.
[2016-07-10] MEDS: SERTRALINE HCL 100 MG TAB PO SCH (20:25)
[2016-07-10] MEDS: TRAZODONE HCL 50 MG TAB PO SCH (20:26)
[2016-07-11] VITALS (10 sets, daily range): BP systolic 106–148; BP diastolic 66–90; PULSE 64–87; TEMP 36.3–36.5; O2SAT 90–95
[2016-07-11] MEDS: METHYLPREDNISOLONE IV 40 MG in SYRINGE 0 ML IV SCH ×2 (01:09→13:35)
[2016-07-11] MEDS: ALBUT/IPRATROP 3MG/0.5MG NEB 3 ML VIAL INH SCH ×4 (06:59→19:16)
[2016-07-11 07:11] LABS: HEMATOCRIT 39.5 % (42-52); MEAN CELL VOLUME 87.6 fL (80-100); MEAN CORPUSCULAR HEMOGLOBIN 29.9 pg (25-34); MEAN CORPUSCULAR HGB CONC 34.2 g/dl (32-36); MEAN PLATELET VOLUME 9.2 fL (7.4-10.4); PLATELET COUNT 159 K/uL (130-400); RED BLOOD COUNT 4.51 M/uL (4.7-6.1); WHITE BLOOD COUNT 4.21 K/uL (4.8-10.8)
[2016-07-11 07:43] LABS: BASO % 0.5 %; BASO ABS # 0.02 K/uL (0-0.2); COMPLETE YES; IG% 0.5 %; LYMPH % 25.9 %; LYMPH ABS # 1.09 K/uL (1.2-3.4); MONO % 8.6 %; NEUT % 64.5 %
[2016-07-11 07:54] LABS: BUN/CREATININE RATIO 17.4 (10-20); CALCIUM 8.3 mg/dl (8.5-10.1); CREATININE 0.87 mg/dl (0.60-1.40); MAGNESIUM 2.1 mg/dl (1.8-2.4); POTASSIUM 4.3 mmol/L (3.5-5.1)
[2016-07-11] MEDS: TRAMADOL HCL 50 MG TAB PO PRN ×2 (08:18→17:57)
[2016-07-11] MEDS: GUAIFENESIN 600 MG TABCR PO SCH ×2 (08:19→21:27)
[2016-07-11] MEDS: SUCRALFATE 1 GM TAB PO SCH ×4 (08:19→21:27)
[2016-07-11] MEDS: PANTOprazole SOD 40 MG TAB PO SCH ×2 (08:19→21:28)
[2016-07-11] MEDS: DOCUSATE SODIUM 100 MG CAP PO SCH ×2 (08:19→21:27)
--- NOTE | 2016-07-11 11:02 | Hospitalist Progress Note ---
Hospitalist Progress Note Date of Service Jul 11, 2016. (Bekah Hayes PA-C) Subjective Pt evaluation today including: conversation w/ patient, physical exam, chart review, lab review, review of studies, review of inpatient medication list Pain: none PO Intake: good Voiding: no voiding problems The patient was seen and examined this morning. Pt reports his breathing is better today than yesterday. He has a mild cough, with sputum although he has not spit anything out to see if it has color. Pt is currently on 3.5 L O2 via NC with sat= 90%. He was up and walking with PT yesterday and walked the whole floor but was short of breath upon return to his room. He hasn't yet walked today other than to the restroom in room. Denies chest pain, sob at rest, abd pain n/v/d/c. Constitutional: No chills, No fever, No sweats Eyes: No diplopia, No redness ENT: No nasal symptoms, No sore throat, No tinnitus Respiratory: + see HPI Cardiovascular: No chest pain, No palpitations Abdomen: No constipation, No diarrhea, No nausea, No pain, No vomiting Musculoskeletal: No muscle pain, No swelling Male : No dysuria Skin: No itch, No rash (Bekah Hayes, CHRISTOPHER) Objective Vital Signs Date Time Temp Pulse Resp B/P Pulse Ox O2 Delivery O2 Flow Rate FiO2 07/11/16 08:23 95 Nasal Cannula 2.0 07/11/16 07:53 36.3 87 16 124/76 95 Nasal Cannula 2.0 07/11/16 07:32 Nasal Cannula 4.0 07/11/16 06:59 64 18 93 Nasal Cannula 4.0 07/11/16 00:05 36.5 78 16 148/90 94 Nasal Cannula 4.0 07/11/16 00:00 94 Nasal Cannula 4.0 07/10/16 23:50 94 Nasal Cannula 4.0 07/10/16 22:25 94 4.0 07/10/16 21:37 36.2 97 20 116/72 07/10/16 21:18 36.2 97 20 94 4.0 07/10/16 20:00 94 Nasal Cannula 4.0 07/10/16 19:59 90 18 94 Nasal Cannula 3.0 07/10/16 19:54 36.6 78 20 121/74 95 Nasal Cannula 4.0 Humidified Oxygen 07/10/16 15:29 36.8 94 20 105/67 96 07/10/16 15:24 93 18 91 Nasal Cannula 3.0 07/10/16 15:06 97 Nasal Cannula 4.0 07/10/16 12:00 96 Nasal Cannula 4.0 07/10/16 11:39 36.8 81 18 92/57 90 07/10/16 11:11 81 18 91 Nasal Cannula 3.0 (Bekah Hayes PA-C) Physical Exam General Appearance: WD/WN, no apparent distress, + thin, + pertinent finding ( appears older than stated age) Eyes: PERRL, EOMI ENT: hearing grossly normal, pharynx normal Neck: supple, no JVD Respiratory/Chest: chest non-tender, + pertinent finding (expiratory wheeze throughout. + rhonchi at left base. Diminished breath sounds at right base.) Cardiovascular: regular rate, rhythm, no murmur Abdomen: normal bowel sounds, non tender, soft Extremities: non-tender, no pedal edema, no calf tenderness Neurologic/Psychiatric: alert, oriented x 3 Skin: normal color, warm/dry (Bekah Hayes, JORI-C) Laboratory Results Last 24 Hours Test 07/11/16 06:43 White Blood Count 4.21 K/uL Red Blood Count 4.51 M/uL Hemoglobin 13.5 g/dL Hematocrit 39.5 % Mean Corpuscular Volume 87.6 fL Mean Corpuscular Hemoglobin 29.9 pg Mean Corpuscular Hemoglobin Concent 34.2 g/dl Platelet Count 159 K/uL Mean Platelet Volume 9.2 fL Neutrophils (%) (Auto) 64.5 % Lymphocytes (%) (Auto) 25.9 % Monocytes (%) (Auto) 8.6 % Eosinophils (%) (Auto) 0.0 % Basophils (%) (Auto) 0.5 % Neutrophils # (Auto) 2.72 K/uL Lymphocytes # (Auto) 1.09 K/uL Monocytes # (Auto) 0.36 K/uL Eosinophils # (Auto) 0.00 K/uL Basophils # (Auto) 0.02 K/uL RDW Standard Deviation 45.3 fL RDW Coefficient of Variation 14.0 % Immature Granulocyte % (Auto) 0.5 % Immature Granulocyte # (Auto) 0.02 K/uL Sodium Level 136 mmol/L Potassium Level 4.3 mmol/L Chloride Level 98 mmol/L Carbon Dioxide Level 30 mmol/L Anion Gap 8.0 mmol/L Blood Urea Nitrogen 15 mg/dl Creatinine 0.87 mg/dl Est Creatinine Clear Calc Drug Dose 86.2 ml/min Estimated GFR () 104.2 Estimated GFR (Non- 89.9 BUN/Creatinine Ratio 17.4 Random Glucose 118 mg/dl Calcium Level 8.3 mg/dl Magnesium Level 2.1 mg/dl (Bekah Hayes PA-C) Assessment and Plan 66 yo male with COPD exacerbation and acute on chronic hypoxia COPD exacerbation: - Cont Solumedrol 40mg q12, Levaquin 750mg PO daily, nebulizers - of note, patient cannot tolerate oral steroids, prior admission he was set up for IM steroids as outpatient will resume maintenance inhalers as breathing returns closer to baseline - Breath sounds are present at bases but still with +rhonchi in the RLL and + expiratory wheezing thyroughout with diminished breath sounds in the left base. Pt does feel improved today compared to yesterday but likely need one more day here. - O2 sats checked at bedside and are 90% on 3.5L via NC, home O2 is 3L. Repeat CXR on 07/10: IMPRESSION: 1. Emphysema 2. Bilateral interstitial opacities with a lower lung zone predominance, similar to the prior study. This is likely inflammatory. Continued radiographic follow-up is recommended. Acute on chronic hypoxic respiratory failure: - saturations improved on 4L, will titrate back to 3L as tolerated GERD: PPI Depression/Anxiety/Insomnia - continue home medications including zoloft 200 mg daily, trazodone 150 mg QHS , buspar 5 mg PO QHS DVT prophylaxis: Lovenox Disposition: From home, lives with . CM assisting with follow up. Likely discharge in 1-2 days depending on response to IV steroid. (Bekah Hayes PA-C) Reviewed: Pt Seen/Exam by Me, VIVIEN Notes, Prior Records, Labs (Lata Borja MD) History Agree with above PA HPI/ROS. Pt feeling much improved. Walked 2 laps around RN station and felt HORAN was much improved. (Lata Borja MD) All Other Systems: Reviewed and Negative (Lata Borja MD) General Appearance: no apparent distress, thin Eye Exam: bilateral eye normal inspection Respiratory: no respiratory distress, no accessory muscle use, crackles (at bases bilat, moving more air today and a few scattered wheezes bilat) Cardiovascular: regular rate, rhythm, no edema, no gallop, no murmur Gastrointestinal: normal bowel sounds, non tender, soft Extremities: non-tender, normal inspection, no pedal edema, no calf tenderness Neurologic/Psychiatric: alert, normal mood/affect, oriented x 3 Skin Characteristics: normal color, warm/dry (Lata Borja MD) Assessment/Plan 66 yo male with acute COPD exacerbation and acute on chronic hypoxemic respiratory failure-improving on Levaquin, IV steroids. Problem will be that he absolutely cannot take po steroids due to previous h/o toxic encephalopathy. May need extended hospital course vs IM injections at [facility] as was arranged last month, although pt reports he does not want to make his drive him all the way to the [facility] in this weather to do so. CT chest from 05/11/16 showed irregular nodes, CXR here now with worsening interstitial prominence. Follows with Pul[facility] Price at [facility]. CXR done 07/08/16 IMPRESSION: 1. Slight progression of bilateral mid to lower lung zone interstitial thickening. This could be chronic or due to superimposed interstitial pneumonitis. Follow-up chest x-ray is recommended to ensure resolution. 2. Emphysema. If worsens or not improving, will consider repeating CT chest while here. Repeat CXR 07/10 I reviewed images and looks slightly improved from admission. -Will obtain CT chest from 05/11/16 on CD with report for him to take to Pulm and have him f/u with his Pulm in 1 week after discharge COPD exacerbation: - Cont Solumedrol 40mg q12, Levaquin 750mg PO daily, nebulizers -continue to wean back to home O2 which is 3L but is only nocturnal. He has plenty of O2 tanks at home he states to last him for continuous O2 GERD-stable -continue PPI Depression/Anxiety/Insomnia/PTSD-stable - continue home medications including zoloft 200 mg daily, trazodone 150 mg QHS , buspar 5 mg PO QHS DVT prophylaxis: Lovenox Disposition: From home, lives with . Continue management for now, likely discharge in 1-2 days depending on response to IV steroid. (Lata Borja MD)
[2016-07-11] MEDS: LEVOFLOXACIN 750 MG TAB PO SCH (11:04)
[2016-07-11] MEDS: ENOXAPARIN 40 MG/0.4 ML SYR SC SCH (17:52)
[2016-07-11] MEDS: TRAZODONE HCL 50 MG TAB PO SCH (21:27)
[2016-07-11] MEDS: SERTRALINE HCL 100 MG TAB PO SCH (21:28)
[2016-07-12] MEDS: METHYLPREDNISOLONE IV 40 MG in SYRINGE 0 ML IV SCH ×2 (01:53→13:13)
[2016-07-12] MEDS: TRAMADOL HCL 50 MG TAB PO PRN ×2 (01:54→08:09)
[2016-07-12 07:13] VITALS: PULSE 70; O2SAT 96
[2016-07-12] MEDS: ALBUT/IPRATROP 3MG/0.5MG NEB 3 ML VIAL INH SCH ×2 (07:13→11:18)
--- NOTE | 2016-07-12 07:41 | Hospitalist Progress Note ---
Hospitalist Progress Note Date of Service Jul 12, 2016. Subjective Pt evaluation today including: conversation w/ patient, physical exam, chart review, lab review, review of studies, review of inpatient medication list Pain: None PO Intake: Good The patient was seen and examined this morning. Pt reports "I feel great today" and is insisting on going home. He reports he has been walking without any shortness of breath, with his report of O2 sats at 95%. He is coughing slightly and last night kelly up a large mucous plug and since then has felt so much better. I checked o2 sats at bedside = 88% on 3L at rest. Constitutional: No chills, No fever, No sweats Eyes: No diplopia ENT: No nasal symptoms, No sore throat, No tinnitus Respiratory: + see HPI Cardiovascular: No chest pain, No palpitations Abdomen: No constipation, No diarrhea, No nausea, No pain, No vomiting Musculoskeletal: No joint pain, No muscle pain, No swelling Male : No dysuria Skin: No itch, No rash Objective Vital Signs Date Time Temp Pulse Resp B/P Pulse Ox O2 Delivery O2 Flow Rate FiO2 07/12/16 07:13 70 16 96 Nasal Cannula 4.0 07/12/16 00:05 Nasal Cannula 4.0 07/11/16 23:27 36.3 67 18 106/66 91 Nasal Cannula 4.0 07/11/16 19:21 78 16 94 Nasal Cannula 3.0 07/11/16 16:00 90 Room Air 4.0 Nasal Cannula 07/11/16 15:47 36.4 72 16 120/74 90 Room Air 07/11/16 15:07 67 18 94 Nasal Cannula 3.0 07/11/16 08:23 95 Nasal Cannula 4.0 07/11/16 07:53 36.3 87 16 124/76 95 Nasal Cannula 4.0 Physical Exam General Appearance: WD/WN, no apparent distress Eyes: PERRL, EOMI ENT: hearing grossly normal, pharynx normal Neck: supple, no JVD Respiratory/Chest: chest non-tender, no respiratory distress, no accessory muscle use, + pertinent finding (Breath sounds are much clearer today, breath sounds present in all lung feilds, no adventitious breath sounds. No expiratory wheeze. + cough) Cardiovascular: regular rate, rhythm, no murmur Abdomen: normal bowel sounds, non tender, soft Extremities: non-tender, no pedal edema, no calf tenderness Neurologic/Psychiatric: normal mood/affect, oriented x 3 Skin: warm/dry, no rash Assessment and Plan 66 yo male with COPD exacerbation and acute on chronic hypoxia COPD exacerbation: - Cont Solumedrol 40mg q12 (day4), Levaquin 750mg PO daily(day4), nebulizers - of note, patient cannot tolerate oral steroids, prior admission he was set up for IM steroids as outpatient will resume maintenance inhalers as breathing returns closer to baseline - Breath sounds improved throughout, good breath sounds in bases bilaterally, no expiratory wheezing. - O2 sats are 88% on 3L, checked at bedside at rest. - Pt is agreeable to receiving an IM decadron dose prior to discharge in attempt have steroids on board for another day without the pt having to travel for IM dosing as an outpatient. [facility] [place] - Spoke with pharmacy: can administer Decadron 1mL IM (10mg/mL ) prior to discharge but after receives next dose of IV solumedrol. Repeat CXR on 07/10: IMPRESSION: 1. Emphysema 2. Bilateral interstitial opacities with a lower lung zone predominance, similar to the prior study. This is likely inflammatory. Continued radiographic follow-up is recommended. Acute on chronic hypoxic respiratory failure: - saturations improved on supplemental o2, back to home O2 level = 3L. - Pt reports normally only uses nocturnal o2, will need script at time of discharge for continuous o2. GERD: - cont PPI Depression/Anxiety/Insomnia - continue home medications including zoloft 200 mg daily, trazodone 150 mg QHS , buspar 5 mg PO QHS DVT prophylaxis: Lovenox Disposition: From home, lives with . CM assisting with follow up. Likely discharge later today.
[2016-07-12 07:48] VITALS: BP 136/77; PULSE 87; TEMP 36.4; O2SAT 92
[2016-07-12] MEDS: SUCRALFATE 1 GM TAB PO SCH ×2 (08:05→12:46)
[2016-07-12] MEDS: GUAIFENESIN 600 MG TABCR PO SCH (08:05)
[2016-07-12] MEDS: PANTOprazole SOD 40 MG TAB PO SCH (08:05)
[2016-07-12] MEDS: DOCUSATE SODIUM 100 MG CAP PO SCH (08:06)
[2016-07-12 09:00] VITALS: O2SAT 92
[2016-07-12 11:18] VITALS: PULSE 61; O2SAT 93
[2016-07-12 11:20] VITALS: BP 118/72; PULSE 88; TEMP 36.5; O2SAT 97
[2016-07-12] MEDS: LEVOFLOXACIN 750 MG TAB PO SCH (11:25)
[2016-07-12] MEDS ORDERED: LVQ750 PO (12:42)
--- NOTE | 2016-07-12 13:04 | Discharge Instructions ---
Discharge Instructions Admission Reason for Admission: Copd Exacerbation,Hypoxia (Bekah Hayes PA-C) Discharge Discharge Diagnosis / Problem: Acute exacerbation of COPD (Bekah Hayes PA-C) Discharge Goals Goal(s): Decrease discomfort, Improve function (Bekah Hayes PA-C) Activity Recommendations Activity Limitations: resume your previous activity Lifting Limitations: gradually increase as tolerated Exercise/Sports Limitations: gradually increase as tolerated Shower/Bathe: no limitations Driving or Machine Use: resume 1 day after discharge . (Bekah Hayes PA-C) Instructions / Follow-Up Instructions / Follow-Up You were admitted to [facility] with shortness of breath, increased cough, fever and sweats dx and diagnosed with acute exacerbation of COPD. - During your stay here you were treated with intravenous steroids and other supportive treatment including nebulizer treatements and oxygen. - You should resume your normal inhaler regimen upon discharge. - Continue taking Levaquin for the next 3 days to complete a prophylactic course of antibiotics for possible infectious process. Imaging studies which were completed include two chest xrays, the first on 07/08 and the second chest xray on 07/10 showed improvement. - You have been given a script for continuous oxygen at 3L, please use this as directed and have the [facility] follow your need for continuous oxygen at 3L. - Prior to discharge you received Decadron IM 10 mg injection to continue steroid treatment for one more day. Follow up with your Gas Processing Plant Operator, Dr. Jamaal Price within 1 week. Please call and schedule this appointment with him. Follow up with your PCP at the [facility] within 1 week. (Bekah Hayes PA-C) Current Hospital Diet Patient's current hospital diet: AHA Diet (Heart Healthy) (Bekah Hayes PA-C) Discharge Diet Recommended Diet: Regular Diet (Bekah Hayes PA-C) Procedures Procedures Performed: CXR 07/08 CXR 07/10 (Bekah Hayes PA-C) Pending Studies Studies pending at discharge: no (Bekah Hayes PA-C) Laboratory Results Last Resulted CBC 07/11/16 06:43 Red Blood Count 4.51, Mean Corpuscular Volume 87.6, Mean Corpuscular Hemoglobin 29.9, Mean Corpuscular Hemoglobin Concent 34.2, Mean Platelet Volume 9.2, Neutrophils (%) (Auto) 64.5, Lymphocytes (%) (Auto) 25.9, Monocytes (%) (Auto) 8.6, Eosinophils (%) (Auto) 0.0, Basophils (%) (Auto) 0.5, Neutrophils # (Auto) 2.72, Lymphocytes # (Auto) 1.09, Monocytes # (Auto) 0.36, Eosinophils # (Auto) 0.00, Basophils # (Auto) 0.02 Last Resulted BMP 07/11/16 06:43 (Bekah Hayes PA-C) Medical Emergencies . Who to Call and When: Medical Emergencies: If at any time you feel your situation is an emergency, please call 911 immediately. . (Bekah Hayes PA-C) Non-Emergent Contact Non-Emergency issues call your: Primary Care Provider Call Non-Emergent contact if: temperature is above 100.5, you have any medication questions . (Bekah Hayes PA-C) Past History Medical & Surgical History: (1) COPD exacerbation (2) Chronic obstructive lung disease (3) Hypoxia (Bekah Hayes PA-C) . "Provider Documentation" section prepared by Isaura Hayes. (Bekah Hayes PA-C) VTE Core Measure Inpt VTE Proph given/why not?: Enoxaparin (Lovenox)SQ (Bekah Hayes PA-C)
[2016-07-12] MEDS ORDERED: GFNSR600 PO (13:11)
--- NOTE | 2016-07-12 13:22 | Discharge Summary ---
Discharge Summary Admission Date: Jul 08, 2016 at 14:27 Discharge Date: Jul 12, 2016 Discharge Disposition: Home Principal Diagnosis: COPD exacerbation Problems/Secondary Diagnoses: Acute respiratory hypoxia Hx COPD Immunizations: Have You Had Influenza Vaccine: Yes Influenza Vaccine Date: Apr 20, 2011 History of Tetanus Vaccine?: Yes Tetanus Immunization Date: Jan 19, 2010 History of Pneumococcal: Yes Pneumococcal Date: Apr 20, 2011 History of Hepatitis B Vaccine: No Procedures: CHEST ONE VIEW PORTABLE HISTORY: Short of breath. COMPARISON: Chest 05/19/2016. FINDINGS: No pneumothorax. No pleural effusions. The heart is normal in size. Emphysema. The upper lung zones are clear. Punctate calcified granuloma within the left midlung zone. Bilateral mid to lower lung zone interstitial thickening is slightly progressed. There is a calcified granuloma the right lung base. IMPRESSION: 1. Slight progression of bilateral mid to lower lung zone interstitial thickening. This could be chronic or due to superimposed interstitial pneumonitis. Follow-up chest x-ray is recommended to ensure resolution. 2. Emphysema. Electronically signed by: Martin Perez M.D. 07/08/2016 1:58 PM Dictated Date/Time: 07/08/2016 1:55 PM The status of this report is Signed. CHEST ONE VIEW PORTABLE CLINICAL HISTORY: Shortness of breath. COPD. Abnormal chest x-ray. COMPARISON STUDY: 07/08/2016 FINDINGS: The cardiac and mediastinal contours remain stable. The chest has an emphysematous configuration. There is radiographic evidence of pulmonary arterial hypertension. There are bilateral interstitial opacities with a lower lung zone predominance similar to the preceding study. There is no significant pleural fluid.[ IMPRESSION: 1. Emphysema 2. Bilateral interstitial opacities with a lower lung zone predominance, similar to the prior study. This is likely inflammatory. Continued radiographic follow-up is recommended. Electronically signed by: Herman Thornton M.D. 07/10/2016 9:12 AM Dictated Date/Time: 07/10/2016 9:10 AM The status of this report is Signed. Consultations: None (Bekah Hayes, CHRISTOPHER) Medication Reconciliation New Medications: Levofloxacin (Levofloxacin) 750 Mg Tab 750 MG PO DAILY@11 for 3 Days, #3 TAB Continued Medications: Albuterol (Ventolin) Inh 2 PUFFS INH Q6H PRN for Rescue/Asthma Symptoms, 0 Refills Albuterol Soln (Proventil 0.083% 2.5MG/3ML) Nebu 2.5 MG INH QID PRN for SOB/Wheezing, EA Budesonide/Formoterol Fumarate (Symbicort 160/4.5 Inhaler ) Aero 2 PUFF INH BID, 0 Refills Buspirone Hcl (Buspirone Hcl) 5 Mg Tab 5 MG PO HS Docusate Sodium (Colace) 100 Mg Cap 100 MG PO BID, CAP Epinephrine (Epipen 2-Wilman) 0.3 Mg Inj 0.3 MG IM UD PRN for ALLERGIC REACTION Guaifenesin Ext Rel (Mucinex Ext Rel) 600 Mg Tabcr 600 MG PO Q12 for 3 Days, #6 TAB Omeprazole (Prilosec) 20 Mg Cap 20 MG PO BID, CAP Sertraline Hcl (Zoloft) 100 Mg Tab 200 MG PO HS, TAB Sucralfate (Carafate) 1 Gm Tab 1 TAB PO QID for 30 Days, #120 TAB 1 Refill Tiotropium Eagle (Spiriva Handihaler) 18 Mcg/ Aerp 1 CAP INH DAILY, 0 Refills Tramadol HCl (Tramadol HCl) 50 Mg Tab 50 MG PO Q6H PRN for Pain, #30 TAB Trazodone Hcl (Desyrel) 150 Mg Tab 150 MG PO HS, 0 Refills Discharge Exam The patient was seen and examined this morning. Pt reports his breathing is better today than yesterday. He has a mild cough, with sputum although he has not spit anything out to see if it has color. Pt is currently on 3.5 L O2 via NC with sat= 90%. He was up and walking with PT yesterday and walked the whole floor but was short of breath upon return to his room. He hasn't yet walked today other than to the restroom in room. Denies chest pain, sob at rest, abd pain n/v/d/c. Review of Systems: Constitutional: No chills, No fever, No sweats Eyes: No problem reported ENT: No sore throat, No tinnitus Cardiovascular: No chest pain, No palpitations Abdomen: No nausea, No pain, No vomiting Musculoskeletal: No calf pain, No joint pain, No swelling Neurologic: No numbness/tingling Integumentary: No itch, No rash Physical Exam: General Appearance: WD/WN, no apparent distress, + thin Eyes: PERRL, EOMI ENT: hearing grossly normal, pharynx normal Neck: supple, no JVD Respiratory/Chest: no respiratory distress, no accessory muscle use, + pertinent finding (Breath sounds are much clearer today, breath sounds present in all lung feilds, no adventitious breath sounds. No expiratory wheeze. + cough)) Cardiovascular: regular rate, rhythm, no murmur Abdomen / GI: normal bowel sounds, non tender, soft Extremities: no calf tenderness, no pedal edema Neurologic/Psychiatric: alert, normal mood/affect, oriented x 3 Skin: normal color, warm/dry (Bekah Hayes, CHRISTOPHER) Hospital Course H&P Source: patient, family, hospital records 66 yo male with history of COPD with admissions for exacerbations, most recent in the beginning of May (1.5 months ago), presented to the ED with 2 days of worsening shortness of breath, increased cough, night sweats, decreased appetite. He says that since he was discharged in May he has felt well, these symptoms seemed to come on all of a sudden. He admits that he was around a family member last week who had the flu and he did not get his flu vaccine this past year. His cough has been more frequent, minimal sputum. More wheezing at home. He typically wears 2L NC at all times and despite that he was short of breath. No chest pain or pressure. In the ED he was hypoxic with saturations 81% on 2L. Normal lab work and CXR without an infiltrate. Given hour long nebulizer and started on Solumedrol. 66 yo male with COPD exacerbation and acute on chronic hypoxia PE: Date Time Temp Pulse Resp B/P Pulse Ox O2 Delivery O2 Flow Rate FiO2 07/08/16 15:19 36.8 85 22 99/62 88 Nasal Cannula 6.0 Humidified Oxygen 07/08/16 15:13 75 23 107/51 90 07/08/16 14:58 90 Nasal Cannula 4.0 07/08/16 14:51 81 23 107/51 90 Nasal Cannula 4.0 07/08/16 13:53 84 07/08/16 13:25 92 Nasal Cannula 4.0 07/08/16 13:25 92 Nasal Cannula 4.0 07/08/16 13:04 36.4 104 20 103/65 85 Nasal Cannula 2.0 General Appearance: WD/WN, no apparent distress Head: normocephalic, atraumatic Eyes: normal inspection, EOMI, sclerae normal ENT: normal ENT inspection, hearing grossly normal, pharynx normal Neck: supple, no adenopathy, no JVD, trachea midline Respiratory/Chest: chest non-tender, no respiratory distress, no accessory muscle use, + decreased breath sounds, + wheezing Cardiovascular: regular rate, rhythm, no edema, no gallop, no JVD, no murmur, normal peripheral pulses Abdomen/GI: normal bowel sounds, non tender, soft, no organomegaly Back: normal inspection, no CVA tenderness, no muscle spasm, normal range of motion Extremities/Musculoskelatal: normal inspection, no calf tenderness, normal capillary refill, no pedal edema, normal range of motion, pelvis stable Neurologic/Psych: electric plater II-XII nml as tested, no motor/sensory deficits, alert, normal mood/affect, normal reflexes, oriented x 3 Skin: normal color, warm/dry, no rash Lymphatic: no adenopathy Hospital Course Acute on chronic COPD exacerbation: - Pt was treated with IV Solumedrol 40mg q12H (day4), Levaquin 750mg PO daily( day4), nebulizers - of note, patient cannot tolerate oral steroids, prior admission he was set up for IM steroids as outpatient - The patient breathing improved with iv steroids, antibiotics and other supportive treatment. Prior to discharge he was give one IM injection of Decadron 10 mg so that he would not need to drive for daily IM steriod injections as an outpatient to [place]. - He was given 3 more days of levaquin to complete a 7 day course. - O2 sats = 88% on 3L, Breath sounds improved throughout, good breath sounds in bases bilaterally, no expiratory wheezing on day of discharge - Resume maintenance inhalers upon discharge Repeat CXR on 07/10: IMPRESSION: 1. Emphysema 2. Bilateral interstitial opacities with a lower lung zone predominance, similar to the prior study. This is likely inflammatory. Continued radiographic follow-up is recommended. Acute on chronic hypoxic respiratory failure: - saturations improved on supplemental o2, back to home O2 level = 3L. - Pt reports normally only uses nocturnal o2, - a script was given to him at time of discharge for continuous o2 so that he [facility] can [facility] more can[facility]. GERD: - cont PPI Depression/Anxiety/Insomnia - continue home medications including zoloft 200 mg daily, trazodone 150 mg QHS , buspar 5 mg PO QHS DVT prophylaxis: Lovenox Total Time Spent: Greater than 30 minutes This includes examination of the patient, discharge planning, medication reconciliation, and communication with other providers. (Bekah Hayes PA-C) Discharge Instructions Please refer to the electronic Patient Visit Report (Discharge Instructions) for additional information. (Bekah Hayes, CHRISTOPHER) Follow-Up Follow up with your Primary Care Provider within 1 week. Follow up with your Dredge Boat Engineer, Dr. Jamaal Price within 1 week. (Bekah Hayes PA-C) Reviewed: Pt Seen/Exam by Me, HO Notes, Labs, RAD (Lata Borja MD) History Agree with above PA Discharge summary/ROS. Pt feeling much improved on day of discharge. He coughed up he said a "huge tubular" chunk of sputum last night that was yellow, no hemoptysis, and afterwards has been breathing much more easily. He has ambulated today with significantly improved dyspnea. He is anxious for discharge to home. (Lata Borja MD) All Other Systems: Reviewed and Negative (Lata Borja MD) General Appearance: no apparent distress (appears older than stated age), thin Eye Exam: bilateral eye normal inspection Ears, Nose, Throat: hearing grossly normal, pharynx normal Neck: supple, normal inspection, trachea midline Respiratory: no respiratory distress, no accessory muscle use, decreased breath sounds (throughout but improved air movement from previous, occasional exp wheeze noted, some mild crackles at left base) Cardiovascular: regular rate, rhythm, no edema, no gallop, no murmur Gastrointestinal: normal bowel sounds, non tender, soft, no organomegaly, no pulsatile mass Extremities: non-tender, normal inspection, no pedal edema, no calf tenderness Neurologic/Psychiatric: alert, normal mood/affect, oriented x 3 Skin Characteristics: normal color, warm/dry (Lata Borja MD) Assessment/Plan 66 yo male with acute COPD exacerbation and acute on chronic hypoxemic respiratory failure-improving on Levaquin, IV steroids. Problem will be that he absolutely cannot take po steroids due to previous h/o toxic encephalopathy. CT chest from 05/11/16 showed irregular nodes, CXR here now with worsening interstitial prominence. Follows with Pulm Dr. Price at [facility]. CXR done 07/08/16 IMPRESSION: 1. Slight progression of bilateral mid to lower lung zone interstitial thickening. This could be chronic or due to superimposed interstitial pneumonitis. Follow-up chest x-ray is recommended to ensure resolution. 2. Emphysema. Repeat CXR 07/10 I reviewed images and looks slightly improved from admission. -Will obtain CT chest from 05/11/16 on CD with report for him to take to Pulm and have him f/u with his Pulm in 1 week after discharge COPD exacerbation: - received Solumedrol 40mg q12, Levaquin 750mg PO daily, nebulizers -continue to wean back to home O2 which is 3L but is only nocturnal. He has plenty of O2 tanks at home he states to last him for continuous O2 -IM Decadron 10mg x 1 given just prior to discharge and half life is 36-48 hrs -f/u Pulm in 1 week GERD-stable -continue PPI Depression/Anxiety/Insomnia/PTSD-stable - continue home medications including zoloft 200 mg daily, trazodone 150 mg QHS , buspar 5 mg PO QHS DVT prophylaxis: Lovenox Disposition: to home (Lata Borja MD)
[2016-07-12 14:27] VITALS: BP 136/77; PULSE 61; TEMP 36.4; O2SAT 93
[2016-07-12] MEDS ORDERED: DEXAMETHASONE INJ 10 MG in SYRINGE 0 ML IM ONE (15:00)
[2016-09-24] MEDS ORDERED: LVQ500 PO (15:03)
== END 2016-07-12 15:16 | disposition home or self-care (01) | DRG 190 ==
LOC: ENRESERVTM → ENRESERVDT → C.EDB 13:03 → C.2T 14:27 → C.MED 07-10 21:28
PROVIDERS: ADMIT Internal Medicine; ATTEND Family Medicine
DX: J44.1 Chronic obstructive pulmonary disease with (acute) exacerbation (principal); J96.21 Acute and chronic respiratory failure with hypoxia; F43.10 Post-traumatic stress disorder, unspecified; F32.9 Major depressive disorder, single episode, unspecified; Z96.659 Presence of unspecified artificial knee joint; Z82.49 Family history of ischemic heart disease and other diseases of the circulatory system; Z80.8 Family history of malignant neoplasm of other organs or systems; Z87.891 Personal history of nicotine dependence; Z88.7 Allergy status to serum and vaccine; Z88.8 Allergy status to other drugs, medicaments and biological substances; Z88.0 Allergy status to penicillin; K21.9 Gastro-esophageal reflux disease without esophagitis; G47.00 Insomnia, unspecified; Z99.81 Dependence on supplemental oxygen; F41.9 Anxiety disorder, unspecified; J39.8 Other specified diseases of upper respiratory tract

== ENCOUNTER 2016-09-21 11:38 | Inpatient (IN) | payer OTHER ==
[~2016-09-21] VITALS: Ht 177.8 cm; Wt 84.5 kg
[2016-09-21 11:00] VITALS: BP 106/65; PULSE 75; TEMP 36.6; O2SAT 95
[~2016-09-21 11:38] MED LIST changes: +LVQ750 PO
[2016-09-21] MEDS ORDERED: METHYLPREDNISOLONE 125 MG VIAL IV STA (12:05)
[2016-09-21] MEDS ORDERED: LEVAQUIN 500MG / 100ML D5W IV ONE (12:15)
[2016-09-21 12:34] LABS: BASO % 0.1 %; BASO ABS # 0.02 K/uL (0-0.2); COMPLETE YES; EOS % 0.2 %; HEMATOCRIT 38.2 % (42-52); IG% 0.3 %; LYMPH % 6.8 %; LYMPH ABS # 1.11 K/uL (1.2-3.4); MEAN CELL VOLUME 88.2 fL (80-100); MEAN CORPUSCULAR HEMOGLOBIN 29.3 pg (25-34); MEAN CORPUSCULAR HGB CONC 33.2 g/dl (32-36); MONO % 7.6 %; PLATELET COUNT 190 K/uL (130-400); RED BLOOD COUNT 4.33 M/uL (4.7-6.1); WHITE BLOOD COUNT 16.42 K/uL (4.8-10.8)
--- NOTE | 2016-09-21 12:48 | DIAGNOSTIC IMAGING REPORT ---
CHEST ONE VIEW PORTABLE CLINICAL HISTORY: EVALUATE RESPIRATORY DISTRESS. DYSPNEA dyspnea COMPARISON STUDY: 07/10/2016 FINDINGS: Emphysematous change. Slightly progressive bibasilar parenchymal markings suggesting a component of basilar infiltrative change. Persistent hilar fullness bilaterally suggesting a component of pulmonary tear of hypertension. IMPRESSION: Small bibasilar parenchymal interstitial infiltrates superimposed upon chronic emphysematous change Electronically signed by: Tomer Villarreal M.D. 09/21/2016 12:46 PM Dictated Date/Time: 09/21/2016 12:44 PM
[2016-09-21 12:49] LABS: INR 1.1 (0.9-1.1); PARTIAL THROMBOPLASTIN RATIO 1.2; PROTHROMBIN TIME (PATIENT) 11.9 SECONDS (9.0-12.0)
[2016-09-21 12:51] LABS: BUN/CREATININE RATIO 9.3 (10-20); CREATININE 1.1 mg/dl (0.60-1.40); POTASSIUM 3.6 mmol/L (3.5-5.1)
[2016-09-21 12:55] LABS: ALB/GLOB RATIO 0.8 (0.9-2)
[2016-09-21] MEDS ORDERED: ALBUTEROL 0.083% NEBU SOLN 3 ML VIAL INH STA (12:58)
[2016-09-21 13:35] LABS: CALCIUM 8.9 mg/dl (8.5-10.1)
[2016-09-21] MEDS ORDERED: ONDANSETRON INJ 2 MG/ML 2 ML VIAL IV PRN (13:45)
[2016-09-21] MEDS ORDERED: ACETAMINOPHEN 325 MG TAB PO PRN (13:45)
[2016-09-21] MEDS ORDERED: LEVAQUIN~CONSULT PHARMACY PRN (13:50)
--- NOTE | 2016-09-21 14:41 | History and Physical ---
History & Physical Date & Time of Service: Sep 21, 2016 at 14:18 Chief Complaint: Shortness of Breath, Wheezing Primary Care Physician: Burak HUTTON History of Present Illness 66 year old male who presents to the ER with shortness of breath and wheezing. Patient was recently admitted to [facility] 07/08 - 07/12 for COPD exacerbation. At the time of discharge, patient was placed on 4L NC. He later saw his spacecraft systems engineer who increased his oxygen to 6L. Patient reports he slowly weaned off and has been totally off the oxygen for the past two weeks. Two days ago patient reports he developed rhinorrhea and watery eyes. He called his PCP who prescribed allergy medicine which he did not start taking yet. Yesterday he developed shortness of breath, wheezing, and cough productive for green sputum. He reports mild shortness of breath and with minimal exertion. He denies fever, chills, and rigors. No chest pain. He denies lightheadedness, dizziness, diaphoresis, and syncopal events. No abdominal pain, nausea, vomiting, or diarrhea. He denies urinary symptoms. In the ER, patient was found to be hypoxic on 3L at 76%. This improved with neb, IV solumedrol, and oxygen 5L via NC. CXR shows bibasilar infiltrates. He was given IV Levaquin. BP and HR and are stable. 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 (4) PTSD (post-traumatic stress disorder) Status: Chronic Surgical Problems: (1) H/O hernia repair Status: Resolved (2) S/P arthroscopic surgery of right knee Status: Resolved Family History FH: colon cancer MOTHER FH: kidney cancer FATHER Heart disease Uncle Social History Smoking Status: Former Smoker Alcohol Use: none Marital Status: Housing status: lives with family Multi-Drug Resistant Organisms History of MDRO: No Allergies Coded Allergies: Pneumococcal Vaccine (Verified Allergy, Severe, SWELLING, 09/21/16) Prednisone (Verified Allergy, Severe, confusion and agitation, 09/21/16) Amoxicillin (Verified Allergy, Intermediate, FACIAL SWELLING (EYES SWELLED SHUT), 09/21/16) SPOKE W/ PATIENT REGARDING ALLERGYON 10/09/11--> FACIAL SWELLING, EYES SWELLED SHUT WITH SUGMENTIN. PATIENT HAS TOLERATED ROCEPHIN IV IN PAST. Clavulanic Acid (Verified Allergy, Intermediate, FACIAL SWELLING (EYES SWELLED SHUT), 09/21/16) SEE COMMENT UNDER AMOXICILLIN BEE STING (Unverified Allergy, Unknown, ANAPHYLAXIS, 09/21/16) Statins (Verified Allergy, Unknown, UNKNOWN, 09/21/16) Home Medications Scheduled Budesonide/Formoterol Fumarate (Symbicort 160/4.5 Inhaler ), 2 PUFF INH BID Buspirone Hcl (Buspirone Hcl), 5 MG PO HS Docusate Sodium (Colace), 100 MG PO DAILY Guaifenesin Ext Rel (Mucinex Ext Rel), 600 MG PO Q12 Omeprazole (Prilosec), 20 MG PO BID Sertraline Hcl (Zoloft), 200 MG PO HS Tiotropium Victor (Spiriva Handihaler), 1 CAP INH DAILY Trazodone Hcl (Desyrel), 150 MG PO HS Scheduled PRN Albuterol (Ventolin), 2 PUFFS INH Q6H PRN for Rescue/Asthma Symptoms Albuterol Soln (Proventil 0.083% 2.5MG/3ML), 2.5 MG INH QID PRN for SOB/Wheezing Epinephrine (Epipen 2-Wilman), 0.3 MG IM UD PRN for ALLERGIC REACTION Tramadol HCl (Tramadol HCl), 50 MG PO Q6H PRN for Pain Review of Systems 10 point review of systems was completed with the pertinent positives and negatives noted per the HPI Physical Exam Vital Signs Date Time Temp Pulse Resp B/P Pulse Ox O2 Delivery O2 Flow Rate FiO2 09/21/16 13:10 82 22 120/73 96 Nasal Cannula 5.0 09/21/16 12:26 90 Nasal Cannula 4.0 09/21/16 12:26 90 Nasal Cannula 4.0 09/21/16 12:26 90 Nasal Cannula 4.0 09/21/16 12:06 96 09/21/16 11:43 36.6 99 18 118/72 76 Nasal Cannula 3.0 General Appearance: + mild distress (mild conversational dyspnea noted) Head: normocephalic Eyes: normal inspection ENT: hearing grossly normal Neck: supple, no JVD Respiratory/Chest: + respiratory distress (mild conversational dyspnea and with minimal exertion), + decreased breath sounds (poor air entry noted BL), + wheezing (end, expiratory), + pertinent finding (moist non productive cough) Abdomen/GI: normal bowel sounds, non tender, soft Extremities/Musculoskelatal: normal inspection, no calf tenderness Neurologic/Psych: no motor/sensory deficits, alert, normal mood/affect, oriented x 3 Skin: normal color, warm/dry Diagnostics Laboratory Results Results Past 24 Hours Test 09/21/16 12:17 09/21/16 12:20 Range/Units White Blood Count 16.42 4.8-10.8 K/uL Red Blood Count 4.33 4.7-6.1 M/uL Hemoglobin 12.7 14.0-18.0 g/dL Hematocrit 38.2 42-52 % Mean Corpuscular Volume 88.2 80-100 fL Mean Corpuscular Hemoglobin 29.3 25-34 pg Mean Corpuscular Hemoglobin Concent 33.2 32-36 g/dl Platelet Count 190 130-400 K/uL Mean Platelet Volume 9.0 7.4-10.4 fL Neutrophils (%) (Auto) 85.0 % Lymphocytes (%) (Auto) 6.8 % Monocytes (%) (Auto) 7.6 % Eosinophils (%) (Auto) 0.2 % Basophils (%) (Auto) 0.1 % Neutrophils # (Auto) 13.95 1.4-6.5 K/uL Lymphocytes # (Auto) 1.11 1.2-3.4 K/uL Monocytes # (Auto) 1.25 0.11-0.59 K/uL Eosinophils # (Auto) 0.04 0-0.5 K/uL Basophils # (Auto) 0.02 0-0.2 K/uL RDW Standard Deviation 46.9 36.4-46.3 fL RDW Coefficient of Variation 14.5 11.5-14.5 % Immature Granulocyte % (Auto) 0.3 % Immature Granulocyte # (Auto) 0.05 0.00-0.02 K/uL Prothrombin Time 11.9 9.0-12.0 SECONDS Prothromb Time International Ratio 1.1 0.9-1.1 Activated Partial Thromboplast Time 30.1 21.0-31.0 SECONDS Partial Thromboplastin Ratio 1.2 Sodium Level 136 136-145 mmol/L Potassium Level 3.6 3.5-5.1 mmol/L Chloride Level 100 98-107 mmol/L Carbon Dioxide Level 29 21-32 mmol/L Anion Gap 7.0 3-11 mmol/L Blood Urea Nitrogen 10 7-18 mg/dl Creatinine 1.10 0.60-1.40 mg/dl Est Creatinine Clear Calc Drug Dose 68.2 ml/min Estimated GFR () 80.6 Estimated GFR (Non- 69.6 BUN/Creatinine Ratio 9.3 10-20 Random Glucose 139 70-99 mg/dl Calcium Level 8.9 8.5-10.1 mg/dl Total Bilirubin 0.9 0.2-1 mg/dl Aspartate Amino Transf (AST/SGOT) 14 15-37 U/L Alanine Aminotransferase (ALT/SGPT) 15 12-78 U/L Alkaline Phosphatase 94 45-117 U/L Troponin I 0.028 0-0.045 ng/ml Pro-B-Type Natriuretic Peptide 3379 0-900 pg/ml Total Protein 7.1 6.4-8.2 gm/dl Albumin 3.1 3.4-5.0 gm/dl Globulin 4.0 2.5-4.0 gm/dl Albumin/Globulin Ratio 0.8 0.9-2 Influenza Type A Antigen Neg for Influ A NEG Influenza Type B Antigen Neg for Influ B NEG Diagnostic Radiology CXR IMPRESSION: Small bibasilar parenchymal interstitial infiltrates superimposed upon chronic emphysematous change Impression Assessment and Plan ACUTE HYPOXIC RESPIRATORY FAILURE DUE TO PNEUMONIA AND COPD EXACERBATION - admit to tele - patient presenting with increasing shortness of breath, productive cough, and wheezing; was found to be 76% on 3L in the ED, improved after neb, IV solumedrol and oxygen 5L via NC - patient had been on home O2 until about 2 weeks ago - check ABG - rapid flu negative, will check PCR - CXR shows bibasilar infiltrates - WBC 16K, no other signs of sepsis - s/p Levaquin in the ED, will continue with; due to recent hospitalization, will check MRSA nasal swab and add Vanco if positive - IV steroids (noted patient does not PO steroids and has required IM injections at the time of discharge), around the clock nebs, continue inhaled corticosteroid - may need home O2 eval prior to discharge GERD - continue PPI ANXIETY - continue home meds DVT PROPHYLAXIS - SQ Lovenox CODE STATUS - Patient is a full code as per my discussion with him. DISPO - In my clinical judgment this beneficiary meets acute admission criteria, established by [facility], that includes being hospitalized through two midnights. I have seen and examined the patient and agree with the assessment and plan as stated. He did mention to me that he recently had a CT chest without contrast for tracking of a pulm nodule last week at the [place]. I decided to repeat the CT with contast to rule out PE in the setting of acute onset hypoxia since that time. This study was negative for PE and multifocal pneumonia was identified, consistent with the significance of the hypoxia. Ang, DO Level of Care Telemetry Resuscitation Status FULL RESUSCITATION VTE Prophylaxis VTE Risk Assessment Done? Y/N: Yes Risk Level: Moderate Given or contraindicated: Enoxaparin (Lovenox)SQ
[2016-09-21 15:21] VITALS: BP 105/64; PULSE 81; TEMP 36.8; O2SAT 91; Ht 177.8 cm; Wt 84.5 kg
[2016-09-21 15:42] LABS: ALLEN TEST POS (POS); ARTERIAL BLD GAS O2 SATURATION 90.3 % (90-95); ARTERIAL BLOOD GAS BASE EXCESS 2.4 mEq/L (-9-1.8); ARTERIAL BLOOD GAS HCO3 27 mmol/L (19-24); ARTERIAL BLOOD GAS PO2 61 mm/Hg (80-95); ARTERIAL BLOOD GAS pH 7.41 (7.35-7.45); O2 ADMINISTRATION 5 L
[2016-09-21] MEDS: TRAMADOL HCL 50 MG TAB PO PRN ×2 (17:00→23:21)
[2016-09-21 17:07] VITALS: PULSE 92; O2SAT 93
[2016-09-21] MEDS ORDERED: ALBUT/IPRATROP 3MG/0.5MG NEB 3 ML VIAL INH ONE (17:15)
[2016-09-21 17:17] LABS: URINE APPEARANCE CLEAR (CLEAR); URINE BILIRUBIN NEG (NEG); URINE COLOR YELLOW; URINE EPITHELIAL CELL AUTO >30 /lpf (0-5); URINE NITRITE NEG (NEG); URINE PH 5.5 (4.5-7.5); URINE SPECIFIC GRAVITY 1.013 (1.000-1.030); UROBILINOGEN NEG (NEG)
[2016-09-21 17:23] LABS: MANUAL MICROSCOPIC REQUIRED? NO; REVIEW REQ? YES
--- NOTE | 2016-09-21 17:54 | EMERGENCY ROOM VISIT NOTE ---
History Report prepared by Georgi: Camryn Mcpherson Under the Supervision of: Dr. Gerson Judd D.O. First contact with patient: 11:54 Chief Complaint: SHORTNESS OF BREATH Stated Complaint: SOB, PAININ CHEST History of Present Illness The patient is a 66 year old male who presents to the Emergency Room with complaints of worsening SOB starting yesterday. His symptoms started 4 days ago as sneezing, congestion, and a "tickle" in his throat. Since then he has developed a cough productive of dark green sputum. He has a headache. He denies any fever, abdominal pain, or vomiting. He has been urinating and moving his bowels normally. He has been eating and drinking normally. He is on 3 L of oxygen as needed at home. He has inhalers which he has been using often. He denies any sick contacts. He has had a blood clot before in his hand. He is not on any blood thinners. He has a history of COPD and emphysema. He had a hospital stay in early July when he last received steroids. Source of History: patient Onset: yesterday Position: other (global) Quality: other (SOB) Timing: worsening Associated Symptoms: + cough, + headache, No abdominal pain, No fevers, No vomiting Review of Systems See HPI for pertinent positives & negatives. A total of 10 systems reviewed and were otherwise negative. 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 (4) PTSD (post-traumatic stress disorder) Surgical Problems: (1) H/O hernia repair (2) S/P arthroscopic surgery of right knee Family History Cancer Heart disease Hypertension Social History Smoking Status: Former Smoker Alcohol Use: none Drug Use: none Marital Status: Housing Status: unknown Occupation Status: retired Current/Historical Medications Scheduled Budesonide/Formoterol Fumarate (Symbicort 160/4.5 Inhaler ), 2 PUFF INH BID Buspirone Hcl (Buspirone Hcl), 5 MG PO HS Docusate Sodium (Colace), 100 MG PO DAILY Guaifenesin Ext Rel (Mucinex Ext Rel), 600 MG PO Q12 Omeprazole (Prilosec), 20 MG PO BID Sertraline Hcl (Zoloft), 200 MG PO HS Tiotropium [place] (Spiriva Handihaler), 1 CAP INH DAILY Trazodone Hcl (Desyrel), 150 MG PO HS Scheduled PRN Albuterol (Ventolin), 2 PUFFS INH Q6H PRN for Rescue/Asthma Symptoms Albuterol Soln (Proventil 0.083% 2.5MG/3ML), 2.5 MG INH QID PRN for SOB/Wheezing Epinephrine (Epipen 2-Wilman), 0.3 MG IM UD PRN for ALLERGIC REACTION Tramadol HCl (Tramadol HCl), 50 MG PO Q6H PRN for Pain Allergies Coded Allergies: Pneumococcal Vaccine (Verified Allergy, Severe, SWELLING, 09/21/16) Prednisone (Verified Allergy, Severe, confusion and agitation, 09/21/16) Amoxicillin (Verified Allergy, Intermediate, FACIAL SWELLING (EYES SWELLED SHUT), 09/21/16) SPOKE W/ PATIENT REGARDING ALLERGYON 10/09/11--> FACIAL SWELLING, EYES SWELLED SHUT WITH SUGMENTIN. PATIENT HAS TOLERATED ROCEPHIN IV IN PAST. Clavulanic Acid (Verified Allergy, Intermediate, FACIAL SWELLING (EYES SWELLED SHUT), 09/21/16) SEE COMMENT UNDER AMOXICILLIN BEE STING (Unverified Allergy, Unknown, ANAPHYLAXIS, 09/21/16) Statins (Verified Allergy, Unknown, UNKNOWN, 09/21/16) Physical Exam Vital Signs Date Time Temp Pulse Resp B/P Pulse Ox O2 Delivery O2 Flow Rate FiO2 09/21/16 13:10 82 22 120/73 96 Nasal Cannula 5.0 09/21/16 12:26 90 Nasal Cannula 4.0 09/21/16 12:26 90 Nasal Cannula 4.0 09/21/16 12:26 90 Nasal Cannula 4.0 09/21/16 12:06 96 09/21/16 11:43 36.6 99 18 118/72 76 Nasal Cannula 3.0 Physical Exam GENERAL: sitting up in bed, chronically ill-appearing, on nasal cannula with dry cough EYE EXAM: normal conjunctiva OROPHARYNX: no exudate, no erythema, lips, buccal mucosa, and tongue normal and mucous membranes are moist NECK: supple, no nuchal rigidity, no adenopathy, non-tender LUNGS: Coarse bilateral bases. HEART: no murmurs, S1 normal and S2 normal ABDOMEN: abdomen soft, non-tender, normo-active bowel sounds, no masses, no rebound or guarding. BACK: Back is symmetrical on inspection and there is no deformity, no midline tenderness, no CVA tenderness. SKIN: no rashes and no bruising UPPER EXTREMITIES: upper extremities are grossly normal. LOWER EXTREMITIES: No pitting edema. NEURO EXAM: Normal sensorium, cranial nerves II-XII grossly intact, normal speech, no gross weakness of arms, no gross weakness of legs. Medical Decision & Procedures ER Provider Diagnostic Interpretation: Xray results as stated below per radiologists and my interpretation. CHEST ONE VIEW PORTABLE CLINICAL HISTORY: EVALUATE RESPIRATORY DISTRESS. DYSPNEA dyspnea COMPARISON STUDY: 07/10/2016 FINDINGS: Emphysematous change. Slightly progressive bibasilar parenchymal markings suggesting a component of basilar infiltrative change. Persistent hilar fullness bilaterally suggesting a component of pulmonary tear of hypertension. IMPRESSION: Small bibasilar parenchymal interstitial infiltrates superimposed upon chronic emphysematous change Electronically signed by: Tomer Villarreal M.D. 09/21/2016 12:46 PM Dictated Date/Time: 09/21/2016 12:44 PM Laboratory Results 09/21/16 12:17 Red Blood Count 4.33, Mean Corpuscular Volume 88.2, Mean Corpuscular Hemoglobin 29.3, Mean Corpuscular Hemoglobin Concent 33.2, Mean Platelet Volume 9.0, Neutrophils (%) (Auto) 85.0, Lymphocytes (%) (Auto) 6.8, Monocytes (%) (Auto) 7.6, Eosinophils (%) (Auto) 0.2, Basophils (%) (Auto) 0.1, Neutrophils # (Auto) 13.95, Lymphocytes # (Auto) 1.11, Monocytes # (Auto) 1.25, Eosinophils # (Auto) 0.04, Basophils # (Auto) 0.02 09/21/16 12:17 Test 09/21/16 12:17 09/21/16 12:20 White Blood Count 16.42 K/uL (4.8-10.8) Red Blood Count 4.33 M/uL (4.7-6.1) Hemoglobin 12.7 g/dL (14.0-18.0) Hematocrit 38.2 % (42-52) Mean Corpuscular Volume 88.2 fL (80-100) Mean Corpuscular Hemoglobin 29.3 pg (25-34) Mean Corpuscular Hemoglobin Concent 33.2 g/dl (32-36) Platelet Count 190 K/uL (130-400) Mean Platelet Volume 9.0 fL (7.4-10.4) Neutrophils (%) (Auto) 85.0 % Lymphocytes (%) (Auto) 6.8 % Monocytes (%) (Auto) 7.6 % Eosinophils (%) (Auto) 0.2 % Basophils (%) (Auto) 0.1 % Neutrophils # (Auto) 13.95 K/uL (1.4-6.5) Lymphocytes # (Auto) 1.11 K/uL (1.2-3.4) Monocytes # (Auto) 1.25 K/uL (0.11-0.59) Eosinophils # (Auto) 0.04 K/uL (0-0.5) Basophils # (Auto) 0.02 K/uL (0-0.2) RDW Standard Deviation 46.9 fL (36.4-46.3) RDW Coefficient of Variation 14.5 % (11.5-14.5) Immature Granulocyte % (Auto) 0.3 % Immature Granulocyte # (Auto) 0.05 K/uL (0.00-0.02) Prothrombin Time 11.9 SECONDS (9.0-12.0) Prothromb Time International Ratio 1.1 (0.9-1.1) Activated Partial Thromboplast Time 30.1 SECONDS (21.0-31.0) Partial Thromboplastin Ratio 1.2 Anion Gap 7.0 mmol/L (3-11) Est Creatinine Clear Calc Drug Dose 68.2 ml/min Estimated GFR () 80.6 Estimated GFR (Non- 69.6 BUN/Creatinine Ratio 9.3 (10-20) Calcium Level 8.9 mg/dl (8.5-10.1) Total Bilirubin 0.9 mg/dl (0.2-1) Aspartate Amino Transf (AST/SGOT) 14 U/L (15-37) Alanine Aminotransferase (ALT/SGPT) 15 U/L (12-78) Alkaline Phosphatase 94 U/L (45-117) Troponin I 0.028 ng/ml (0-0.045) Pro-B-Type Natriuretic Peptide 3379 pg/ml (0-900) Total Protein 7.1 gm/dl (6.4-8.2) Albumin 3.1 gm/dl (3.4-5.0) Globulin 4.0 gm/dl (2.5-4.0) Albumin/Globulin Ratio 0.8 (0.9-2) Influenza Type A Antigen Neg for Influ A (NEG) Influenza Type B Antigen Neg for Influ B (NEG) Laboratory results per my review. Medications Administered Medications (Trade) Dose Ordered Sig/Oren Route Start Time Stop Time Status Last Admin Dose Admin Levofloxacin (Levaquin / D5W) 500 mg NOW ONCE IV 09/21/16 12:15 09/21/16 12:16 DC 09/21/16 12:34 500 MG Methylprednisolone Sodium Succinate (Solu-Medrol IV) 125 mg NOW STAT IV 09/21/16 12:05 09/21/16 12:07 DC 09/21/16 12:33 125 MG Albuterol Sulfate (Ventolin 0.083% 2.5MG/3ML Neb) 2.5 mg NOW STAT INH 09/21/16 12:58 09/21/16 12:59 DC 09/21/16 13:09 2.5 MG ECG Indication: SOB/dyspnea Rate (beats per minute): 91 Rhythm: sinus rhythm Findings: Q waves (Inferior), other (normal axis, T-wave flattening in anterior leads) Comparison ECG Date: 08-Jul-2016 Change: no significant change ED Course ED COURSE: Vital signs were reviewed and showed hypoxia. The patients medical record was reviewed The above diagnostic studies were performed and reviewed. ED treatments and interventions as stated above. 1158: The patient was evaluated in room C9. A complete history and physical examination was performed. 1205: Solu-Medrol IV 125 mg IV. 1215: Levofloxacin 500 mg IV. 1257: Upon reevaluation, the patient is resting comfortably.I discussed my findings with the patient and he understands and agrees with the treatment plan. Based on the patients age, coexisting illnesses, exam and lab findings the decision to treat as an inpatient was made. The patient remained stable while under my care. The patient will be evaluated for further management. 1258: Albuterol Sulfate 2.5 mg INH. 1305: I discussed the patient's case with Dr. Fry, [facility] hospitalist. She will evaluate the patient for further management. Medical Decision Differential diagnoses includes but is not limited to pneumonia, bronchitis, COPD/Asthma exacerbation, pneumothorax, pulmonary embolism, congestive heart failure, acute coronary syndrome Patient is a 66-year-old male who presents the ER for shortness breath associated with a green productive cough. He is chronically on 3 L nasal cannula intermittently and is now requiring 5 L. He was sent over by his PCP. Chest x-ray supports a pneumonia. Labs show a leukocytosis 16,000. He was given IV Levaquin. With his new oxygen requirement and infiltrate on chest x- ray he was admitted to internal medicine with pneumonia. He was given steroids and albuterol as he does have COPD. Consults Time Called: 1300 Consulting Physician: Dr. Fry [facility] hospitalist Returned Call: 1305 I reviewed the patient's case with her. She will evaluate the patient for further management. Impression Primary Impression: Pneumonia Additional Impression: Hypoxia Scribe Attestation The scribe's documentation has been prepared under my direction and personally reviewed by me in its entirety. I confirm that the note above accurately reflects all work, treatment, procedures, and medical decision making performed by me. Departure Information Dispostion Being Evaluated By Hospitalist Referrals No Doctor, Assigned (PCP) Patient Instructions My [facility] Problem Qualifiers Primary Impression: Pneumonia Pneumonia type: due to unspecified organism Laterality: unspecified laterality Lung location: unspecified part of lung Qualified Codes: J18.9 - Pneumonia, unspecified organism
[2016-09-21] MEDS ORDERED: KETOROLAC TROMETHAMINE 15 MG/ML VIAL IV. PRN (18:00)
[2016-09-21 19:47] VITALS: PULSE 78; O2SAT 93
[2016-09-21] MEDS: ALBUT/IPRATROP 3MG/0.5MG NEB 3 ML VIAL INH SCH (19:47)
[2016-09-21] MEDS ORDERED: HYDROCODONE/ACETAMINOPHEN 7.5/325MG TAB PO STA (20:24)
[2016-09-21] MEDS ORDERED: OPTIRAY 320 IV PRN (20:30)
[2016-09-21] MEDS: SERTRALINE HCL 100 MG TAB PO SCH (21:04)
[2016-09-21] MEDS: GUAIFENESIN 600 MG TABCR PO SCH (21:05)
[2016-09-21] MEDS: PANTOprazole SOD 40 MG TAB PO SCH (21:05)
[2016-09-21] MEDS: TRAZODONE HCL 50 MG TAB PO SCH (21:05)
[2016-09-21] MEDS: BUDESONIDE/FORMOTEROL FUMARATE 160/4.5 60 PUFFS/INHALER INH SCH (21:06)
[2016-09-21] MEDS: ENOXAPARIN 40 MG/0.4 ML SYR SC SCH (21:08)
[2016-09-21] MEDS: METHYLPREDNISOLONE IV 40 MG in SYRINGE 0 ML IV SCH (21:15)
--- NOTE | 2016-09-21 21:49 | DIAGNOSTIC IMAGING REPORT ---
CT ANGIOGRAM OF THE CHEST CLINICAL HISTORY: Atypical chest pain. COMPARISON STUDY: Chest x-ray dated 09/21/2016. Chest CT scans dated 05/11/2016 and 01/21/2011. TECHNIQUE: Following the IV administration of 96 cc of Optiray 320, CT angiogram of the chest was performed from the upper abdomen to the thoracic inlet utilizing the pulmonary embolus protocol. Images are reviewed in the axial, sagittal, and coronal planes. 3-D MIPS images are created and assessed. IV contrast was administered without complication. The examination is degraded by motion artifact. CT DOSE: 382.86 mGy.cm FINDINGS: Thyroid: Imaged portions of the thyroid gland are normal in size and attenuation. Thoracic aorta: There is atherosclerotic calcification of the thoracic aorta, which is normal in caliber and demonstrates bovine variant arch anatomy. No dissection is seen. Pulmonary vasculature: The pulmonary trunk is is dilated, measuring 3.8 cm. This suggests pulmonary artery hypertension. There are no filling defects identified in main, lobar, or segmental pulmonary branches to suggest pulmonary embolus. Heart: The heart is top normal in size and configuration, and without pericardial effusion. There are coronary artery calcifications. Lungs and pleural spaces: Evaluation of the lung parenchyma is degraded by respiratory motion artifact. There are advanced emphysematous changes. Scattered calcified granulomas are identified. There is patchy airspace consolidation/nodularity identified at both lung bases, left greater than right as well as in the left middle lobe. Mild patchy airspace opacities are also identified in the left upper lobe.. No pleural effusion is identified. Diffuse peribronchial thickening is observed. The trachea and central airways are clear. Mediastinum: There are mildly enlarged prevascular nodes which measure up to 11 mm short axis. Arabella: Calcified hilar lymph nodes are observed. Mildly enlarged bilateral hilar nodes measure up to 17 mm in short axis. Axillae: There is no axillary lymphadenopathy. Upper abdomen: Small calcified splenic granulomas are noted. Partially visualized upper abdominal viscera is otherwise within normal limits. Skeletal structures: The skeletal structures are osteopenic. Degenerative change is noted throughout the thoracic spine. No lytic or blastic bony lesions are seen. IMPRESSION: 1. There is no evidence of pulmonary embolus in the main, lobar, or segmental pulmonary arteries. 2. Advanced emphysema with evidence of pulmonary artery hypertension. 3. There is patchy airspace consolidation with foci of parenchymal nodularity seen at both lung bases, the right middle lobe, and the left upper lobe. There is also diffuse peribronchial thickening. These findings are typical for multifocal pneumonia. Precautionary 3-6 month follow-up chest CT is recommended to document resolution and to exclude the possibility of underlying pulmonary lesion. 4. Mildly enlarged mediastinal and hilar lymph nodes are likely on a reactive basis. Electronically signed by: Luciano Prieto M.D. 09/21/2016 9:47 PM Dictated Date/Time: 09/21/2016 9:40 PM
[2016-09-21 22:02] VITALS: BP 110/64; PULSE 78; TEMP 36.4; O2SAT 95
[2016-09-21 23:00] VITALS: BP 106/65; PULSE 75; TEMP 36.6; O2SAT 95
[2016-09-22] VITALS (10 sets, daily range): BP systolic 98–139; BP diastolic 60–73; PULSE 70–88; TEMP 36.4–36.8; O2SAT 92–98
[2016-09-22] MEDS: ALBUT/IPRATROP 3MG/0.5MG NEB 3 ML VIAL INH SCH ×4 (02:03→19:04)
[2016-09-22] MEDS: HYDROCODONE/ACETAMOPHEN 5/325MG TAB PO PRN ×3 (03:57→20:14)
[2016-09-22] MEDS: METHYLPREDNISOLONE IV 40 MG in SYRINGE 0 ML IV SCH ×3 (03:57→20:15)
[2016-09-22 06:02] LABS: HEMATOCRIT 34.4 % (42-52); MEAN CELL VOLUME 85.8 fL (80-100); MEAN CORPUSCULAR HEMOGLOBIN 28.7 pg (25-34); MEAN CORPUSCULAR HGB CONC 33.4 g/dl (32-36); MEAN PLATELET VOLUME 9.6 fL (7.4-10.4); PLATELET COUNT 186 K/uL (130-400); RED BLOOD COUNT 4.01 M/uL (4.7-6.1); WHITE BLOOD COUNT 11.97 K/uL (4.8-10.8)
[2016-09-22 06:32] LABS: BUN/CREATININE RATIO 17.1 (10-20); CALCIUM 8.9 mg/dl (8.5-10.1); CREATININE 1.1 mg/dl (0.60-1.40); POTASSIUM 4.1 mmol/L (3.5-5.1)
--- NOTE | 2016-09-22 07:52 | PULMONARY CONSULTATION ---
DATE OF CONSULTATION: 09/22/2016 The patient is a pleasant 66-year-old male who was admitted once again with an exacerbation of chronic obstructive lung disease and pneumonia. Molly Card PA-C, has asked me to evaluate the patient from a pulmonary standpoint. The patient developed worsening shortness of breath associated with cough which was nonproductive and some rhinorrhea 2 days prior to admission. He was prescribed some medications by his family physician but never started it. He developed some worsening shortness of breath and a cough producing green sputum yesterday, was seen by Dr. Gerson Judd in the Emergency Room, had been on 3 liters of oxygen at home, and was noted to have an oxygen saturation of 76% initially on 3 liters upon presentation to the Emergency Room. Chest x-ray revealed some parenchymal infiltrates and he also had leukocytosis. He had a CAT scan of his chest done last night that reveals bibasilar pulmonary infiltrates, changes consistent with advanced emphysema, calcified granulomas bilaterally, and an infiltrative process in the left mid lung field as well. There is some peribronchial thickening as well. Since admission, he states he is stable. Interestingly, he had a chest x-ray that showed some significant infiltrative changes at the bases back when he was hospitalized here in June. Prior to this, he has actually been fairly stable. He was out with his granddaughter shooting basketball 3 weeks ago and remains active at home doing woodworking with no significant symptoms. REVIEW OF SYSTEMS: Otherwise is unremarkable. He does have several pets at home, several dogs and a cat, but no exposure to birds. His travel history and environmental histories otherwise are normal. 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 He had been seen by Dr. Cunningham in the past, had a cardiac cath done several years ago, that was unremarkable. He was then readmitted for occlusion of the right radial artery but that resolved. He had been seen by Dr. Jon in the past and does not have any significant coronary artery disease. PAST SURGICAL HISTORY: Otherwise noted as above. FAMILY HISTORY: His father is from colon cancer. His mother is from kidney cancer. The patient does carry a history of nephrolithiasis after I reviewed the records. SOCIAL HISTORY: Started smoking at about age 12, quit at age 60, at least a pack a day. No alcohol. 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 He is . He was in the service in the [employer] in [place] [id number]. ALLERGIES: HE HAS MULTIPLE ALLERGIES INCLUDING PREDNISONE WHICH CAUSED CONFUSION, PNEUMOCOCCAL VACCINE, PENICILLIN, CLAVULANIC ACID, BEE STINGS, AND STATINS APPARENTLY CAUSE ACHING. MEDICATIONS: Noted. PHYSICAL EXAMINATION: VITAL SIGNS: Stable. His blood pressure is 106/65, last night it was 98/60, pulse is 70 and regular, respiratory rate 16 this morning, he is afebrile, oxygen saturation 94% on room air. His I\T\O's, 917 in and 300 out. Weight 84 kilograms. When he was here for an exacerbation of chronic obstructive lung disease in 08/2014, he was 103 kilograms. He states he has had a voluntary 75-pound weight loss after stopping prednisone. HEENT: Unremarkable. No thrush noted. No adenopathy is noted. Expansion of the thorax is good with deep inspiration. Thyroid normal. Trachea midline. No nodes palpable anywhere. HEART: Regular rate and rhythm. No murmurs are heard. Second heart sound normal. LUNGS: Reveal few crackles at the lung bases, especially the left lower lobe. The anterior lung cisneros are clear. No wheezing is noted. Forced expiratory maneuver about 2 seconds with no wheezing. ABDOMEN: Soft, nontender. No organomegaly noted. EXTREMITIES: He has no cyanosis, clubbing or edema. LABORATORY WORK: Reveals an improved white count from 16.42 down to 11.97, hemoglobin 11.5 with a slight left shift. Blood gas revealed pH 7.41, pCO2 of 44, pO2 of 61 on 5 liters. PRP is unremarkable. Glucose of 177, BUN was 10, creatinine 1.1. BNP was slightly increased at 3379. Liver function studies are normal. Troponin, coagulation profile unremarkable. Urinalysis did reveal few inflammatory cells with some budding hyphae. Influenza A and B antigens negative. MRSA DNA surveillance screen by DNA probe negative. Sputum Gram stain is pending. IMPRESSION: 1. Bibasilar pneumonia. From a purest standpoint, this should be considered healthcare facility associated pneumonia since he was hospitalized here and discharged on 07/08/2016. However, he has responded nicely to prednisone, has been very active at home, and this came on fairly suddenly, so I think it is appropriate to treat him as a community-acquired pneumonia at this point. 2. History of aspiration. He had been seen in [place], had a video swallow done in the remote past that showed some mild aspiration. Certainly, conceivable basilar infiltrates are consistent with aspiration. The fact that he had basilar infiltrates in June and they are very similar now could be worrisome for a chronic process as well. 3. Chronic obstructive lung disease. 4. Posttraumatic stress disorder post-[place]. 5. History of renal lithiasis. RECOMMENDATIONS: 1. Continue his present medications. He states he is improved on Levaquin, he has been afebrile, his white count has improved. I do not think we have to add on staph coverage or gram-negative coverage that is different from what we are doing now. 2. Continue on the Symbicort. Use the DuoNeb 4 times a day and q. 4 hours p.r.n. Continue on the methylprednisolone, I think that could be tapered down starting tomorrow 20 mg IV q. 8 hours and taper if off over about 4 or 5 days. 3. He will need a repeat CT of the chest in about 2-3 months. If the pulmonary infiltrative processes persist, then bronchoscopy should be considered. Thanks for asking me to evaluate Mr. Cantu and I will be glad to follow along with you during his hospital stay.
[2016-09-22] MEDS: LEVOFLOXACIN 750MG / D5W IV SCH (08:12)
[2016-09-22] MEDS: BUDESONIDE/FORMOTEROL FUMARATE 160/4.5 60 PUFFS/INHALER INH SCH ×2 (08:13→20:16)
[2016-09-22] MEDS: DOCUSATE SODIUM 100 MG CAP PO SCH (08:14)
[2016-09-22] MEDS: PANTOprazole SOD 40 MG TAB PO SCH ×2 (08:15→20:14)
[2016-09-22] MEDS: GUAIFENESIN 600 MG TABCR PO SCH ×2 (08:16→20:16)
[2016-09-22] MEDS: TRAMADOL HCL 50 MG TAB PO PRN ×2 (08:19→17:23)
--- NOTE | 2016-09-22 13:34 | Progress Note ---
Internal Med Progress Note Date of Service: Sep 22, 2016. Provider Documentation: SUBJECTIVE: Patient is seen and examined at bedside. Patient states feeling better today. Cough and SOB are improved. wheezing resolved. Denies chest pain, dizziness, nausea, vomiting, abd pain. Offers no other complaints. Family at bedside. OBJECTIVE: Vital Signs-as noted below Physical Exam: General Appearance:Moderately built and nourished, no apparent distress Head: normocephalic, Atraumatic Eyes: normal inspection, EOMI, PERRLA Neck: supple, Trachea midline Respiratory/Chest: Decreased breath sounds, CTA Cardiovascular: S1, S2, No murmur Abdomen/GI:Soft, Non tender, Bowel sounds present Extremities/Musculoskelatal:normal inspection, no edema Neurologic/Psych:AAOX3, grossly no focal neurological deficits Skin: normal color, warm Lab data as noted below. ASSESSMENT & PLAN: ACUTE ON CHRONIC HYPOXIC RESPIRATORY FAILURE DUE TO PNEUMONIA AND COPD EXACERBATION HCAP Patient presented with worsening SOB, productive cough and wheezing. 76% on 3L in the ED On chronic Oxygen 3L NC at baseline CT chest: No PE, multifocal pneumonia, Advanced COPD Influenza: Negative Leukocytosis improving Continue Levaquin, bronchodilators Oxygen per protocol Appreciate pulmonary input Plan to taper steroids starting tomorrow Needs repeat CT of the chest in about 2-3 months and consideration for bronchoscopy if infiltrate persists. ? Aspiration: Plan for video swallow eval on Saturday Aspiration precautions GERD Continue PPI ANXIETY Stable continue home meds DVT PX SQ Lovenox CODE STATUS Full Code DISPOSITION: Continue monitoring in Tele PROCEDURES: CT CHEST: 1. There is no evidence of pulmonary embolus in the main, lobar, or segmental pulmonary arteries. 2. Advanced emphysema with evidence of pulmonary artery hypertension. 3. There is patchy airspace consolidation with foci of parenchymal nodularity seen at both lung bases, the right middle lobe, and the left upper lobe. There is also diffuse peribronchial thickening. These findings are typical for multifocal pneumonia. Precautionary 3-6 month follow-up chest CT is recommended to document resolution and to exclude the possibility of underlying pulmonary lesion. 4. Mildly enlarged mediastinal and hilar lymph nodes are likely on a reactive basis. Vital Signs: Date Time Temp Pulse Resp B/P Pulse Ox O2 Delivery O2 Flow Rate FiO2 09/22/16 12:00 Nasal Cannula 5.0 09/22/16 11:45 36.8 79 18 119/65 97 09/22/16 08:00 Nasal Cannula 5.0 09/22/16 07:23 36.8 76 18 117/63 98 09/22/16 06:58 73 16 93 Nasal Cannula 4.0 09/22/16 04:00 Nasal Cannula 5.0 09/22/16 03:05 36.6 78 17 98/60 94 Nasal Cannula 5.0 09/22/16 02:03 70 14 93 Nasal Cannula 5.0 09/21/16 23:59 Nasal Cannula 5.0 09/21/16 23:00 36.6 75 17 106/65 95 Nasal Cannula 5.0 09/21/16 22:02 36.4 78 18 110/64 95 Nasal Cannula 5.0 09/21/16 20:00 Nasal Cannula 5.0 09/21/16 19:47 78 14 93 Nasal Cannula 5.0 09/21/16 17:07 92 14 93 Nasal Cannula 5.0 09/21/16 16:00 Nasal Cannula 5.0 09/21/16 15:21 36.8 81 18 105/64 91 Nasal Cannula 5.0 09/21/16 14:40 77 21 115/70 91 Nasal Cannula 5.0 Lab Results: Results Past 24 Hours Test 09/21/16 15:20 09/21/16 16:55 09/22/16 05:27 Range/Units Arterial Blood pH 7.41 7.35-7.45 Arterial Blood Partial Pressure CO2 44 35-46 mmHg Arterial Blood Partial Pressure O2 61 80-95 mm/Hg Arterial Blood HCO3 27 19-24 mmol/L Arterial Blood Oxygen Saturation 90.3 90-95 % Arterial Blood Base Excess 2.4 -9-1.8 mEq/L Arterial Blood Gas Delivery 5 L Wyatt Test POS POS Urine Color YELLOW Urine Appearance CLEAR CLEAR Urine pH 5.5 4.5-7.5 Urine Specific [place] 1.013 1.000-1.030 Urine Protein TRACE NEG Urine Glucose (UA) NEG NEG Urine Ketones NEG NEG Urine Occult Blood NEG NEG Urine Nitrite NEG NEG Urine Bilirubin NEG NEG Urine Urobilinogen NEG NEG Urine Leukocyte Esterase SMALL NEG Urine WBC (Auto) 10-30 0-5 /hpf Urine RBC (Auto) 0-4 0-4 /hpf Urine Hyaline Casts (Auto) 5-10 0-5 /lpf Urine Epithelial Cells (Auto) >30 0-5 /lpf Urine Bacteria (Auto) NEG NEG Urine Yeast (Auto) BUD W/ HYPHAE NONE PRSENT White Blood Count 11.97 4.8-10.8 K/uL Red Blood Count 4.01 4.7-6.1 M/uL Hemoglobin 11.5 14.0-18.0 g/dL Hematocrit 34.4 42-52 % Mean Corpuscular Volume 85.8 80-100 fL Mean Corpuscular Hemoglobin 28.7 25-34 pg Mean Corpuscular Hemoglobin Concent 33.4 32-36 g/dl RDW Standard Deviation 44.2 36.4-46.3 fL RDW Coefficient of Variation 14.2 11.5-14.5 % Platelet Count 186 130-400 K/uL Mean Platelet Volume 9.6 7.4-10.4 fL Sodium Level 134 136-145 mmol/L Potassium Level 4.1 3.5-5.1 mmol/L Chloride Level 99 98-107 mmol/L Carbon Dioxide Level 27 21-32 mmol/L Anion Gap 8.0 3-11 mmol/L Blood Urea Nitrogen 19 7-18 mg/dl Creatinine 1.10 0.60-1.40 mg/dl Est Creatinine Clear Calc Drug Dose 68.2 ml/min Estimated GFR () 80.6 Estimated GFR (Non- 69.6 BUN/Creatinine Ratio 17.1 10-20 Random Glucose 177 70-99 mg/dl Calcium Level 8.9 8.5-10.1 mg/dl Microbiology Results 09/21/16 MRSA DNA Surveillance Screen - Final, Complete Specimen Negative for MRSA by DNA Probe
[2016-09-22] MEDS: SERTRALINE HCL 100 MG TAB PO SCH (20:16)
[2016-09-22] MEDS: TRAZODONE HCL 50 MG TAB PO SCH (20:17)
[2016-09-22] MEDS: ENOXAPARIN 40 MG/0.4 ML SYR SC SCH (20:18)
[2016-09-23] VITALS (10 sets, daily range): BP systolic 119–138; BP diastolic 62–83; PULSE 80–105; TEMP 35.6–36.8; O2SAT 90–98
[2016-09-23] MEDS: ALBUT/IPRATROP 3MG/0.5MG NEB 3 ML VIAL INH SCH ×4 (02:11→19:42)
[2016-09-23] MEDS: METHYLPREDNISOLONE IV 40 MG in SYRINGE 0 ML IV SCH (04:42)
[2016-09-23 06:36] LABS: BASO % 0.1 %; BASO ABS # 0.01 K/uL (0-0.2); COMPLETE YES; HEMATOCRIT 35.6 % (42-52); IG% 0.5 %; LYMPH % 4.8 %; LYMPH ABS # 0.91 K/uL (1.2-3.4); MEAN CORPUSCULAR HEMOGLOBIN 29.3 pg (25-34); MEAN CORPUSCULAR HGB CONC 33.7 g/dl (32-36); MEAN PLATELET VOLUME 9.5 fL (7.4-10.4); MONO % 4.9 %; NEUT % 89.7 %; PLATELET COUNT 224 K/uL (130-400); RED BLOOD COUNT 4.09 M/uL (4.7-6.1); WHITE BLOOD COUNT 18.86 K/uL (4.8-10.8)
[2016-09-23 07:04] LABS: BUN/CREATININE RATIO 18.5 (10-20); MAGNESIUM 2.6 mg/dl (1.8-2.4); POTASSIUM 4.3 mmol/L (3.5-5.1)
[2016-09-23] MEDS: PANTOprazole SOD 40 MG TAB PO SCH ×2 (07:48→20:40)
[2016-09-23] MEDS: GUAIFENESIN 600 MG TABCR PO SCH ×2 (07:48→20:39)
[2016-09-23] MEDS: BUDESONIDE/FORMOTEROL FUMARATE 160/4.5 60 PUFFS/INHALER INH SCH ×2 (07:48→20:39)
[2016-09-23] MEDS: LEVOFLOXACIN 750MG / D5W IV SCH (07:48)
[2016-09-23] MEDS: DOCUSATE SODIUM 100 MG CAP PO SCH (07:48)
--- NOTE | 2016-09-23 08:57 | PROGRESS NOTE ---
DATE: 09/23/2016 SUBJECTIVE: The patient states he is considerably improved. He is able to walk in the room without difficulty. His cough is considerably improved. He is eating well and slept very well last night. He apparently is scheduled for a swallowing study which was ordered yesterday. He is tolerating his medications well. OBJECTIVE: VITAL SIGNS: Stable. He is afebrile, blood pressure 119/65, oxygen saturation 94% on six liters. I\T\O is a 1937 in and 2350 out. Weight 85.3 kilograms, which is about stable. According to the nurses' notes he slept fairly well without difficulty. HEENT: Unremarkable. No neck vein distention or HJR. HEART: Regular rate and rhythm. No gallops are auscultated. LUNGS: Reveal decreased breath sounds, otherwise are clear. ABDOMEN: Soft and nontender. EXTREMITIES: He has no cyanosis, clubbing or edema. CT of the chest revealed airspace consolidation at both lung bases and in the left mid lung field. Diffuse peribronchial thickening was noted as well. LABORATORY DATA: White count is 18.86, hemoglobin 12 and platelet count 224,000. Blood gas on the was fairly stable revealing normal acid base status with significant hypoxemia and widening of the A-a gradient. PRP is unremarkable today with a CO2 of 29. The MRSA DNA surveillance screen was negative. Sputum Gram stain from the revealed many inflammatory cells with mixed organisms and has grown out normal mary kate. IMPRESSION: 1. Bibasilar pneumonia. 2. Chronic obstructive lung disease. 3. Post-traumatic stress disorder from [place]. RECOMMENDATIONS: 1. At this point, I think the patient could be switched to p.o. Levaquin 500 mg daily; I will actually treat him for a full ten days. 2. Continue the Symbicort 160/4.5 two puffs b.i.d. with a mouth rinse. I discussed that with him today. 3. Continue on the DuoNeb 4 times a day and q. 4 hours p.r.n. antireflux regimen. He apparently is intolerant to prednisone. I think the methylprednisolone could be tapered down to 20 mg q. 12 hours. Hopefully, he will be well-controlled with the long-acting bronchodilator with budesonide ie; Symbicort. He will be followed by Dr. Eagle starting tomorrow who is on the pulmonary service. The patient should have a repeat CT of the chest done in about two months.
--- NOTE | 2016-09-23 11:06 | Progress Note ---
Internal Med Progress Note Date of Service: Sep 23, 2016. Provider Documentation: SUBJECTIVE: Patient is seen and examined at bedside. Cough and SOB improving. Denies chest pain, dizziness. Offers no other complaints. OBJECTIVE: Vital Signs-as noted below Physical Exam: General Appearance:Moderately built and nourished, no apparent distress Head: normocephalic, Atraumatic Eyes: normal inspection, EOMI, PERRLA Neck: supple, Trachea midline Respiratory/Chest: Decreased breath sounds, CTA Cardiovascular: S1, S2, No murmur Abdomen/GI:Soft, Non tender, Bowel sounds present Extremities/Musculoskelatal:normal inspection, no edema Neurologic/Psych:AAOX3, grossly no focal neurological deficits Skin: normal color, warm Lab data as noted below. ASSESSMENT & PLAN: ACUTE ON CHRONIC HYPOXIC RESPIRATORY FAILURE DUE TO PNEUMONIA AND COPD EXACERBATION HCAP Patient presented with worsening SOB, productive cough and wheezing. 76% on 3L in the ED On chronic Oxygen 3L NC at baseline CT chest: No PE, multifocal pneumonia, Advanced COPD Influenza: Negative Leukocytosis likely secondary to steroids Continue bronchodilators, Levaquin Day # 2 (Needs total of 10 days) Patient has intolerance to prednisone Oxygen per protocol Appreciate pulmonary input Continue steroid taper Needs repeat CT of the chest in about 2-3 months and consideration for bronchoscopy if infiltrate persists. Titrate oxygen down as able ? Aspiration: Plan for video swallow eval on Saturday Aspiration precautions GERD Continue PPI ANXIETY Stable continue home meds DVT PX SQ Lovenox CODE STATUS Full Code DISPOSITION: Continue monitoring in Tele PROCEDURES: CT CHEST: 1. There is no evidence of pulmonary embolus in the main, lobar, or segmental pulmonary arteries. 2. Advanced emphysema with evidence of pulmonary artery hypertension. 3. There is patchy airspace consolidation with foci of parenchymal nodularity seen at both lung bases, the right middle lobe, and the left upper lobe. There is also diffuse peribronchial thickening. These findings are typical for multifocal pneumonia. Precautionary 3-6 month follow-up chest CT is recommended to document resolution and to exclude the possibility of underlying pulmonary lesion. 4. Mildly enlarged mediastinal and hilar lymph nodes are likely on a reactive basis. Vital Signs: Date Time Temp Pulse Resp B/P Pulse Ox O2 Delivery O2 Flow Rate FiO2 09/23/16 08:00 Room Air 09/23/16 07:55 36.6 80 20 121/62 95 Nasal Cannula 5.0 09/23/16 06:18 86 16 94 Nasal Cannula 6.0 09/23/16 04:00 Nasal Cannula 4.0 09/23/16 03:29 36.6 85 20 119/65 92 Nasal Cannula 5.0 09/23/16 02:11 85 16 94 Nasal Cannula 4.0 09/22/16 23:59 Nasal Cannula 4.0 09/22/16 23:30 36.5 85 20 139/68 93 Nasal Cannula 5.0 09/22/16 20:00 Nasal Cannula 4.0 09/22/16 19:19 36.4 82 16 133/73 92 Nasal Cannula 4.0 09/22/16 19:05 82 16 92 Nasal Cannula 4.0 09/22/16 16:00 Nasal Cannula 5.0 09/22/16 15:34 36.4 88 18 111/70 92 4.0 09/22/16 14:01 71 16 93 Nasal Cannula 4.0 09/22/16 12:00 Nasal Cannula 5.0 09/22/16 11:45 36.8 79 18 119/65 97 Lab Results: Results Past 24 Hours Test 09/23/16 05:20 Range/Units White Blood Count 18.86 4.8-10.8 K/uL Red Blood Count 4.09 4.7-6.1 M/uL Hemoglobin 12.0 14.0-18.0 g/dL Hematocrit 35.6 42-52 % Mean Corpuscular Volume 87.0 80-100 fL Mean Corpuscular Hemoglobin 29.3 25-34 pg Mean Corpuscular Hemoglobin Concent 33.7 32-36 g/dl Platelet Count 224 130-400 K/uL Mean Platelet Volume 9.5 7.4-10.4 fL Neutrophils (%) (Auto) 89.7 % Lymphocytes (%) (Auto) 4.8 % Monocytes (%) (Auto) 4.9 % Eosinophils (%) (Auto) 0.0 % Basophils (%) (Auto) 0.1 % Neutrophils # (Auto) 16.92 1.4-6.5 K/uL Lymphocytes # (Auto) 0.91 1.2-3.4 K/uL Monocytes # (Auto) 0.93 0.11-0.59 K/uL Eosinophils # (Auto) 0.00 0-0.5 K/uL Basophils # (Auto) 0.01 0-0.2 K/uL RDW Standard Deviation 46.6 36.4-46.3 fL RDW Coefficient of Variation 14.5 11.5-14.5 % Immature Granulocyte % (Auto) 0.5 % Immature Granulocyte # (Auto) 0.09 0.00-0.02 K/uL Sodium Level 138 136-145 mmol/L Potassium Level 4.3 3.5-5.1 mmol/L Chloride Level 101 98-107 mmol/L Carbon Dioxide Level 29 21-32 mmol/L Anion Gap 8.0 3-11 mmol/L Blood Urea Nitrogen 19 7-18 mg/dl Creatinine 1.00 0.60-1.40 mg/dl Est Creatinine Clear Calc Drug Dose 75.0 ml/min Estimated GFR () 90.5 Estimated GFR (Non- 78.1 BUN/Creatinine Ratio 18.5 10-20 Random Glucose 150 70-99 mg/dl Calcium Level 9.0 8.5-10.1 mg/dl Magnesium Level 2.6 1.8-2.4 mg/dl
[2016-09-23] MEDS: METHYLPREDNISOLONE IV 20 MG in SYRINGE 0 ML IV SCH (18:03)
[2016-09-23] MEDS: TRAMADOL HCL 50 MG TAB PO PRN (18:06)
[2016-09-23] MEDS: ENOXAPARIN 40 MG/0.4 ML SYR SC SCH (22:00)
[2016-09-23] MEDS: SERTRALINE HCL 100 MG TAB PO SCH (22:04)
[2016-09-23] MEDS: TRAZODONE HCL 50 MG TAB PO SCH (22:05)
[2016-09-24 00:25] VITALS: BP 132/72; PULSE 83; TEMP 36.8; O2SAT 94
[2016-09-24 02:01] VITALS: PULSE 84; O2SAT 93
[2016-09-24] MEDS: ALBUT/IPRATROP 3MG/0.5MG NEB 3 ML VIAL INH SCH ×3 (02:01→14:07)
[2016-09-24] MEDS: TRAMADOL HCL 50 MG TAB PO PRN (03:04)
[2016-09-24] MEDS: METHYLPREDNISOLONE IV 20 MG in SYRINGE 0 ML IV SCH (05:36)
[2016-09-24 07:06] VITALS: BP 138/81; PULSE 74; TEMP 36.6; O2SAT 95
[2016-09-24 07:19] LABS: COMPLETE YES; EOS % 0.2 %; IG% 0.6 %; LYMPH % 16.8 %; LYMPH ABS # 1.99 K/uL (1.2-3.4); MEAN CELL VOLUME 87.8 fL (80-100); MEAN CORPUSCULAR HEMOGLOBIN 29.3 pg (25-34); MEAN CORPUSCULAR HGB CONC 33.3 g/dl (32-36); MEAN PLATELET VOLUME 9.2 fL (7.4-10.4); NEUT % 71.4 %; PLATELET COUNT 209 K/uL (130-400); WHITE BLOOD COUNT 11.82 K/uL (4.8-10.8)
[2016-09-24 07:45] LABS: BUN/CREATININE RATIO 17.5 (10-20); CALCIUM 8.7 mg/dl (8.5-10.1); MAGNESIUM 2.5 mg/dl (1.8-2.4)
[2016-09-24 07:55] VITALS: PULSE 86; O2SAT 93
[2016-09-24] MEDS: DOCUSATE SODIUM 100 MG CAP PO SCH (08:28)
[2016-09-24] MEDS: BUDESONIDE/FORMOTEROL FUMARATE 160/4.5 60 PUFFS/INHALER INH SCH (08:29)
[2016-09-24] MEDS: PANTOprazole SOD 40 MG TAB PO SCH (08:29)
[2016-09-24] MEDS: GUAIFENESIN 600 MG TABCR PO SCH (08:29)
[2016-09-24] MEDS ORDERED: LEVOFLOXACIN 500 MG TAB PO SCH (11:00)
--- NOTE | 2016-09-24 12:40 | DIAGNOSTIC IMAGING REPORT ---
VIDEO SWALLOW STUDY CLINICAL HISTORY: Aspiration. COMPARISON STUDY: No priors. Fluoroscopy time: 2.5 minutes. FINDINGS: Fluoroscopic guidance was provided to the Department of Speech Pathology in performing a video swallow study. The patient consumed barium-impregnated pudding, cracker with paste, nectar thick liquids, and thin barium while the swallowing mechanism was observed in real-time. Pharyngeal penetration and aspiration was seen with thin barium. There is pharyngeal penetration identified with the pudding and nectar thick liquid textures without clear evidence of aspiration. No aspiration was seen on the cracker with paste texture. IMPRESSION: 1. Aspiration was seen with thin barium. 2. Pharyngeal penetration was identified with pudding nectar thick liquids. 3. See dedicated speech pathology report for detailed findings and recommendations. Dictated: 09/24/2016 12:06 PM Transcribed: 09/24/2016 12:38 PM Nina Electronically signed by: Luciano Prieto M.D. 09/24/2016 1:00 PM Dictated Date/Time: 09/24/2016 12:06 PM
--- NOTE | 2016-09-24 14:01 | Pulmonology Progress Note ---
Pulmonary Progress Note Date of Service Sep 24, 2016. Attending Dr. Eagle Subjective Feeling improved today. Cough is less productive. Dyspnea markedly improved. Ambulating without difficulty. Anticipating discharge soon. Did report episode yesterday in which he blew a blood clot from his nose followed by cough productive of blood clot - felt to be upper respiratory origin. No further events. Objective 66-year-old male admitted to [facility] 09/21/2016 with bilateral pneumonia and exacerbation of COPD. Prior records were reviewed. PMHx includes: COPD/emphysema. His promotion producer is Dr. Price through the [place]. He is on Symbicort and Spiriva prior to admission. He was admitted recently in early 2016 with exacerbation of COPD and discharged on 4 liters/minute of oxygen but had been adjusting- weaning this in preceding weeks. He is a former tobacco user: 49 pack year. 09/21/2016 patient evaluated in the [facility] Emergency Department with history of cough productive of green sputum, wheeze, and dyspnea. In the emergency department he was hypoxic on 3 liters. Chest x-ray consistent with bibasilar infiltrate. CT angiogram confirmed presence of bibasilar pulmonary infiltrates , advanced emphysema, and middle left-sided infiltrate. There were mild enlargement of the lymph nodes felt to be inflammatory in nature. There is a question as to whether the patient has a history of aspiration with a these changes were acute on chronic. Patient was treated with Levaquin (day 4), methylprednisolone, scheduled bronchodilators, expectorants, and anti-reflux medication. ABG 09/21 was consistent with compensated respiratory acidosis. He responded quickly with steady clinical improvement. Today: - 93-95% on 2-4LPM - Afebrile, HD stable - WBC down-trending (11.82) - Swallow study- anticipated today Physical Exam: Constitutional: WDWN male lying in hospital bed but getting up easily and moving throughout the room. No acute distress. Head: + facial symmetry Eyes: EOMi, PERRLA, no conjunctival injection Mouth: Moist mucous membranes. No erythema, exudate, or post nasal gtt Neck: Trachea midline. No adenopathy or masses Respiratory: Non-labored respirations. Extended expiratory phase with diminished air movement throughout. No wheeze or rhonchi. No clubbing or cyanosis. Cardiovascular: RRR, no MRG. +2 radial pulses. <1s capillary refill. Abdomen: soft, non-tender, active bowel sounds Integumentary: no rashes, or ecchymosis MSK/Extremities: Moving and developed symmetrically. No calf tenderness or pitting peripheral edema. Neurologic: A&O, data recall in-tact. Appropriate affect. Assessment & Plan 66-yo male hospital day #3 with bilateral pneumonia and hypoxic exacerbation of COPD. 1. Complete total 10-days levofloxacin 2. Clarify prednisone allergy: consider discharge on Medrol Dose pack if he has tolerated before. Otherwise - no taper needed. 3. Continue PRN nebulizers, BID Symbicort and Restart Spiriva daily 4. 2-step prior to discharge with h/o variable O2 needs leading up to his admission 5. Will need CT in 12/2016 for chronic changes - if persistent would recommend bronchoscopy for further evaluation if felt appropriate by [facility] 6. F/U swallow evaluation - concern for aspiration 7. Should be seen by his promotion producer within 2-weeks of discharge. Data Medications: Current Inpatient Medications Medications (Trade) Dose Ordered Sig/Oren Route Start Time Stop Time Status Last Admin Dose Admin Enoxaparin Sodium (Lovenox Inj) 40 mg HS SC 09/21/16 21:00 10/21/16 20:59 09/22/16 20:18 40 MG Acetaminophen (Tylenol Tab) 650 mg Q4H PRN PO 09/21/16 13:45 10/21/16 13:44 Ondansetron HCl (Zofran Inj) 4 mg Q6H PRN IV 09/21/16 13:45 10/21/16 13:44 Albuterol/ Ipratropium (Duoneb) 3 ml Q6R INH 09/21/16 21:00 10/21/16 20:59 09/24/16 07:55 3 ML Budesonide/ Formoterol Fumarate (Symbicort 160/ 4.5 Inh) 2 puffs BID INH 09/21/16 21:00 10/21/16 20:59 09/24/16 08:29 2 PUFFS Buspirone HCl (Buspar Tab) 5 mg HS PO 09/21/16 21:00 10/21/16 20:59 09/23/16 22:04 5 MG Docusate Sodium (coLACE CAP) 100 mg DAILY PO 09/22/16 09:00 10/22/16 08:59 09/24/16 08:28 100 MG Guaifenesin (Mucinex Contr Rel Tab) 600 mg Q12 PO 09/21/16 21:00 10/21/16 20:59 09/24/16 08:29 600 MG Sertraline HCl (Zoloft Tab) 200 mg HS PO 09/21/16 21:00 10/21/16 20:59 09/23/16 22:04 200 MG Tramadol HCl (Ultram Tab) 50 mg Q6H PRN PO 09/21/16 14:00 10/21/16 13:59 09/24/16 03:04 50 MG Trazodone HCl (Desyrel Tab) 150 mg HS PO 09/21/16 21:00 10/21/16 20:59 09/23/16 22:05 150 MG Pantoprazole Sodium (Protonix Tab) 40 mg BID PO 09/21/16 21:00 10/21/16 20:59 09/24/16 08:29 40 MG Ketorolac Tromethamine (Toradol Inj) 15 mg Q8H PRN IV. 09/21/16 18:00 09/26/16 17:59 09/21/16 18:31 15 MG Ioversol (Optiray 320) 100 ml UD PRN IV 09/21/16 20:30 09/25/16 20:29 Acetaminophen/ Hydrocodone Bitart ([place] 5/325 Tab) 1 tab Q8 PRN PO 09/22/16 04:00 10/06/16 03:59 09/22/16 20:14 1 TAB Levofloxacin 500 mg 500 mg DAILY@11 PO 09/24/16 11:00 09/30/16 11:01 09/24/16 08:28 500 MG Methylprednisolone Sodium Succinate/ Syringe (Solu-Medrol IV/ Syringe) 0.32 ml @ 1.5 mls/min BID@0600,1800 IV 09/23/16 18:00 10/23/16 17:59 09/24/16 05:36 1.5 MLS/MIN I & O: 24-Hour Column 09/24/16 08:00 Output Total 0 ml Balance 0 ml Vital Signs: Date Time Temp Pulse Resp B/P Pulse Ox O2 Delivery O2 Flow Rate FiO2 09/24/16 08:00 Nasal Cannula 4.0 09/24/16 07:55 86 20 93 Nasal Cannula 4.0 09/24/16 07:06 36.6 74 18 138/81 95 2.0 09/24/16 02:01 84 20 93 Nasal Cannula 4.0 09/24/16 00:25 36.8 83 20 132/72 94 4.0 09/24/16 00:05 Nasal Cannula 4.0 09/23/16 20:00 Nasal Cannula 4.0 09/23/16 19:43 88 16 93 Nasal Cannula 4.0 09/23/16 16:00 Nasal Cannula 4.0 09/23/16 15:30 36.4 98 20 131/71 91 Nasal Cannula 4.0 09/23/16 14:38 35.6 96 20 122/71 90 Nasal Cannula 4.0 09/23/16 14:24 36.8 86 16 94 4.0 09/23/16 13:53 86 16 94 Nasal Cannula 4.0 Laboratory Results: Last 24 Hours Test 09/24/16 06:59 White Blood Count 11.82 K/uL Red Blood Count 4.10 M/uL Hemoglobin 12.0 g/dL Hematocrit 36.0 % Mean Corpuscular Volume 87.8 fL Mean Corpuscular Hemoglobin 29.3 pg Mean Corpuscular Hemoglobin Concent 33.3 g/dl Platelet Count 209 K/uL Mean Platelet Volume 9.2 fL Neutrophils (%) (Auto) 71.4 % Lymphocytes (%) (Auto) 16.8 % Monocytes (%) (Auto) 11.0 % Eosinophils (%) (Auto) 0.2 % Basophils (%) (Auto) 0.0 % Neutrophils # (Auto) 8.44 K/uL Lymphocytes # (Auto) 1.99 K/uL Monocytes # (Auto) 1.30 K/uL Eosinophils # (Auto) 0.02 K/uL Basophils # (Auto) 0.00 K/uL RDW Standard Deviation 47.4 fL RDW Coefficient of Variation 14.8 % Immature Granulocyte % (Auto) 0.6 % Immature Granulocyte # (Auto) 0.07 K/uL Sodium Level 138 mmol/L Potassium Level 4.0 mmol/L Chloride Level 101 mmol/L Carbon Dioxide Level 32 mmol/L Anion Gap 5.0 mmol/L Blood Urea Nitrogen 18 mg/dl Creatinine 1.00 mg/dl Est Creatinine Clear Calc Drug Dose 75.0 ml/min Estimated GFR () 90.5 Estimated GFR (Non- 78.1 BUN/Creatinine Ratio 17.5 Random Glucose 88 mg/dl Calcium Level 8.7 mg/dl Magnesium Level 2.5 mg/dl
[2016-09-24 14:07] VITALS: PULSE 75; O2SAT 94
--- NOTE | 2016-09-24 14:39 | Progress Note ---
Internal Med Progress Note Date of Service: Sep 24, 2016. Provider Documentation: SUBJECTIVE: Patient is seen and examined at bedside. States feeling much better. Eager to get discharged. Minimal cough. Denies chest pain, dizziness. Offers no other complaints. OBJECTIVE: Vital Signs-as noted below Physical Exam: General Appearance:Moderately built and nourished, no apparent distress Head: normocephalic, Atraumatic Eyes: normal inspection, EOMI, PERRLA Neck: supple, Trachea midline Respiratory/Chest: Decreased breath sounds, CTA Cardiovascular: S1, S2, No murmur Abdomen/GI:Soft, Non tender, Bowel sounds present Extremities/Musculoskelatal:normal inspection, no edema Neurologic/Psych:AAOX3, grossly no focal neurological deficits Skin: normal color, warm Lab data as noted below. ASSESSMENT & PLAN: ACUTE ON CHRONIC HYPOXIC RESPIRATORY FAILURE DUE TO PNEUMONIA AND COPD EXACERBATION HCAP Patient presented with worsening SOB, productive cough and wheezing. 76% on 3L in the ED On chronic Oxygen 3L NC at baseline CT chest: No PE, multifocal pneumonia, Advanced COPD Influenza: Negative Leukocytosis improved: secondary to steroids Continue bronchodilators, Levaquin Day # 3 (Needs total of 10 days) Patient has intolerance to prednisone Advised PO Methylprednisolone on discharge but patient refused. Oxygen per protocol Appreciate pulmonary input S/P IV steroids Needs repeat CT of the chest in about 2-3 months and consideration for bronchoscopy if infiltrate persists. Titrate oxygen down as able Sputum Culture:Normal mary kate Will get 2 step prior to discharge Chronic Aspiration: Video swallow eval:mild to moderate dal[place]-pharyngeal dysphagia Strict Aspiration and GERD precautions Regular diet and thin liquids. NO STRAWS GERD Continue PPI ANXIETY Stable continue home meds DVT PX SQ Lovenox CODE STATUS Full Code DISPOSITION: Plan to discharge home today Follow up with your Physician (PCP) at [place] in 1 week Follow up with your General Internal Medicine Doctor at [place] in [address] chest in December 2016: For chronic changes evaluation. May need bronchoscopy if infiltrates persist. PROCEDURES: CT CHEST: 1. There is no evidence of pulmonary embolus in the main, lobar, or segmental pulmonary arteries. 2. Advanced emphysema with evidence of pulmonary artery hypertension. 3. There is patchy airspace consolidation with foci of parenchymal nodularity seen at both lung bases, the right middle lobe, and the left upper lobe. There is also diffuse peribronchial thickening. These findings are typical for multifocal pneumonia. Precautionary 3-6 month follow-up chest CT is recommended to document resolution and to exclude the possibility of underlying pulmonary lesion. 4. Mildly enlarged mediastinal and hilar lymph nodes are likely on a reactive basis. Video Swallow Study: 1. Aspiration was seen with thin barium. 2. Pharyngeal penetration was identified with pudding nectar thick liquids. 3. See dedicated speech pathology report for detailed findings and recommendations. Vital Signs: Date Time Temp Pulse Resp B/P Pulse Ox O2 Delivery O2 Flow Rate FiO2 09/24/16 14:07 75 20 94 Nasal Cannula 4.0 09/24/16 08:00 Nasal Cannula 4.0 09/24/16 07:55 86 20 93 Nasal Cannula 4.0 09/24/16 07:06 36.6 74 18 138/81 95 2.0 09/24/16 02:01 84 20 93 Nasal Cannula 4.0 09/24/16 00:25 36.8 83 20 132/72 94 4.0 09/24/16 00:05 Nasal Cannula 4.0 09/23/16 20:00 Nasal Cannula 4.0 09/23/16 19:43 88 16 93 Nasal Cannula 4.0 09/23/16 16:00 Nasal Cannula 4.0 09/23/16 15:30 36.4 98 20 131/71 91 Nasal Cannula 4.0 Lab Results: Results Past 24 Hours Test 09/24/16 06:59 Range/Units White Blood Count 11.82 4.8-10.8 K/uL Red Blood Count 4.10 4.7-6.1 M/uL Hemoglobin 12.0 14.0-18.0 g/dL Hematocrit 36.0 42-52 % Mean Corpuscular Volume 87.8 80-100 fL Mean Corpuscular Hemoglobin 29.3 25-34 pg Mean Corpuscular Hemoglobin Concent 33.3 32-36 g/dl Platelet Count 209 130-400 K/uL Mean Platelet Volume 9.2 7.4-10.4 fL Neutrophils (%) (Auto) 71.4 % Lymphocytes (%) (Auto) 16.8 % Monocytes (%) (Auto) 11.0 % Eosinophils (%) (Auto) 0.2 % Basophils (%) (Auto) 0.0 % Neutrophils # (Auto) 8.44 1.4-6.5 K/uL Lymphocytes # (Auto) 1.99 1.2-3.4 K/uL Monocytes # (Auto) 1.30 0.11-0.59 K/uL Eosinophils # (Auto) 0.02 0-0.5 K/uL Basophils # (Auto) 0.00 0-0.2 K/uL RDW Standard Deviation 47.4 36.4-46.3 fL RDW Coefficient of Variation 14.8 11.5-14.5 % Immature Granulocyte % (Auto) 0.6 % Immature Granulocyte # (Auto) 0.07 0.00-0.02 K/uL Sodium Level 138 136-145 mmol/L Potassium Level 4.0 3.5-5.1 mmol/L Chloride Level 101 98-107 mmol/L Carbon Dioxide Level 32 21-32 mmol/L Anion Gap 5.0 3-11 mmol/L Blood Urea Nitrogen 18 7-18 mg/dl Creatinine 1.00 0.60-1.40 mg/dl Est Creatinine Clear Calc Drug Dose 75.0 ml/min Estimated GFR () 90.5 Estimated GFR (Non- 78.1 BUN/Creatinine Ratio 17.5 10-20 Random Glucose 88 70-99 mg/dl Calcium Level 8.7 8.5-10.1 mg/dl Magnesium Level 2.5 1.8-2.4 mg/dl
[2016-09-24] MEDS ORDERED: LVQ500 PO (15:03)
--- NOTE | 2016-09-24 15:12 | Discharge Instructions ---
Discharge Instructions Date of Service Sep 24, 2016. Admission Reason for Admission: Pneumonia Discharge Discharge Diagnosis / Problem: Pneumonia, COPD exacerbation, [place]-pharyngeal dysphagia Discharge Goals Goal(s): Decrease discomfort, Improve function Activity Recommendations Activity Limitations: resume your previous activity Exercise/Sports Limitations: as tolerated . Instructions / Follow-Up Instructions / Follow-Up Follow up with your Physician (PCP) at [place] in 1 week Follow up with your Pipe Bending Machine Operator at [place] in [address] chest in December 2016: For chronic changes evaluation. May need bronchoscopy if infiltrates persist. Complete the antibiotic course as advised Continue Oxygen vial Nasal Cannula: 3L at rest and 5L with activity/ambulation Aspiration Precautions: 1.Regular diet and thin liquids. 2.Strict aspiration and GERD precautions. NO straws. Fully upright for all oral intake and for 30-60 minutes after meals. HOB at 30 degrees at all times to include while asleep. 3.Safe swallow strategies: Small bites, small single sips of liquids. Throat clear/cough after swallowing liquids. Stringent oral care to include brushing of the teeth and all surfaces of the mouth in the morning, prior to and after each meal, and before bed. Current Hospital Diet Patient's current hospital diet: Regular Diet Discharge Diet Recommended Diet: Regular Diet Pending Studies Studies pending at discharge: no Medical Emergencies . Who to Call and When: Medical Emergencies: If at any time you feel your situation is an emergency, please call 911 immediately. . Non-Emergent Contact Non-Emergency issues call your: Primary Care Provider, Pipe Bending Machine Operator Call Non-Emergent contact if: you have a fever, your pain is not controlled, your pain is worsening, your pain is unusual for you, you have any medication questions If your SOB, wheezing or Cough is worsening . . "Provider Documentation" section prepared by Tino Regan. VTE Core Measure Inpt VTE Proph given/why not?: Enoxaparin (Lovenox)SQ
--- NOTE | 2016-09-24 16:34 | Discharge Summary ---
Discharge Summary Date of Service Sep 24, 2016. Discharge Summary Admission Date: Sep 21, 2016 at 13:46 Discharge Date: Sep 24, 2016 Discharge Disposition: Home Principal Diagnosis: Pneumonia, COPD exacerbation, [place]-pharyngeal dysphagia Procedures: CT CHEST: 1. There is no evidence of pulmonary embolus in the main, lobar, or segmental pulmonary arteries. 2. Advanced emphysema with evidence of pulmonary artery hypertension. 3. There is patchy airspace consolidation with foci of parenchymal nodularity seen at both lung bases, the right middle lobe, and the left upper lobe. There is also diffuse peribronchial thickening. These findings are typical for multifocal pneumonia. Precautionary 3-6 month follow-up chest CT is recommended to document resolution and to exclude the possibility of underlying pulmonary lesion. 4. Mildly enlarged mediastinal and hilar lymph nodes are likely on a reactive basis. Video Swallow Study: 1. Aspiration was seen with thin barium. 2. Pharyngeal penetration was identified with pudding nectar thick liquids. 3. See dedicated speech pathology report for detailed findings and recommendations. Consultations: Pulmonology Pending Studies/Follow-Up: Follow up with your Physician (PCP) at [place] in 1 week Follow up with your Marketing Programs Manager at [place] in [address] chest in December 2016: For chronic changes evaluation. May need bronchoscopy if infiltrates persist. Complete the antibiotic course as advised Continue Oxygen vial Nasal Cannula: 3L at rest and 5L with activity/ambulation Medication Reconciliation New Medications: Levofloxacin (Levofloxacin) 500 Mg Tab 500 MG PO DAILY@11 for 7 Days, #7 TAB Continued Medications: Albuterol (Ventolin) Inh 2 PUFFS INH Q6H PRN for Rescue/Asthma Symptoms, 0 Refills Albuterol Soln (Proventil 0.083% 2.5MG/3ML) Nebu 2.5 MG INH QID PRN for SOB/Wheezing, EA Budesonide/Formoterol Fumarate (Symbicort 160/4.5 Inhaler ) Aero 2 PUFF INH BID, 0 Refills Buspirone Hcl (Buspirone Hcl) 5 Mg Tab 5 MG PO HS Docusate Sodium (Colace) 100 Mg Cap 100 MG PO DAILY, CAP Epinephrine (Epipen 2-Wilman) 0.3 Mg Inj 0.3 MG IM UD PRN for ALLERGIC REACTION Guaifenesin Ext Rel (Mucinex Ext Rel) 600 Mg Tabcr 600 MG PO Q12 for 7 Days, #14 TAB Omeprazole (Prilosec) 20 Mg Cap 20 MG PO BID, CAP Sertraline Hcl (Zoloft) 100 Mg Tab 200 MG PO HS, TAB Tiotropium [place] (Spiriva Handihaler) 18 Mcg/ Aerp 1 CAP INH DAILY, 0 Refills Tramadol HCl (Tramadol HCl) 50 Mg Tab 50 MG PO Q6H PRN for Pain, #30 TAB Trazodone Hcl (Desyrel) 150 Mg Tab 150 MG PO HS, 0 Refills Admission Information HPI (per Admitting provider): 66 year old male who presents to the ER with shortness of breath and wheezing. Patient was recently admitted to [facility] 07/08 - 07/12 for COPD exacerbation. At the time of discharge, patient was placed on 4L NC. He later saw his powerhouse laborer who increased his oxygen to 6L. Patient reports he slowly weaned off and has been totally off the oxygen for the past two weeks. Two days ago patient reports he developed rhinorrhea and watery eyes. He called his PCP who prescribed allergy medicine which he did not start taking yet. Yesterday he developed shortness of breath, wheezing, and cough productive for green sputum. He reports mild shortness of breath and with minimal exertion. He denies fever, chills, and rigors. No chest pain. He denies lightheadedness, dizziness, diaphoresis, and syncopal events. No abdominal pain, nausea, vomiting, or diarrhea. He denies urinary symptoms. In the ER, patient was found to be hypoxic on 3L at 76%. This improved with neb, IV solumedrol, and oxygen 5L via NC. CXR shows bibasilar infiltrates. He was given IV Levaquin. BP and HR and are stable. Physical Exam (per Admitting): General Appearance: + mild distress (mild conversational dyspnea noted) Head: normocephalic Eyes: normal inspection ENT: hearing grossly normal Neck: supple, no JVD Respiratory/Chest: + respiratory distress (mild conversational dyspnea and with minimal exertion), + decreased breath sounds (poor air entry noted BL), + wheezing (end, expiratory), + pertinent finding (moist non productive cough) Abdomen/GI: normal bowel sounds, non tender, soft Extremities/Musculoskelatal: normal inspection, no calf tenderness Neurologic/Psych: no motor/sensory deficits, alert, normal mood/affect, oriented x 3 Skin: normal color, warm/dry Hospital Course ACUTE ON CHRONIC HYPOXIC RESPIRATORY FAILURE DUE TO PNEUMONIA AND COPD EXACERBATION HCAP Patient presented with worsening SOB, productive cough and wheezing. 76% on 3L in the ED On chronic Oxygen 3L NC at baseline CT chest: No PE, multifocal pneumonia, Advanced COPD Influenza: Negative Leukocytosis improved: secondary to steroids Continue bronchodilators, Levaquin Day # 3 (Needs total of 10 days) Patient has intolerance to prednisone Advised PO Methylprednisolone on discharge but patient refused. Oxygen per protocol Appreciate pulmonary input S/P IV steroids Needs repeat CT of the chest in about 2-3 months and consideration for bronchoscopy if infiltrate persists. Titrate oxygen down as able Sputum Culture:Normal mary kate Will get 2 step prior to discharge Chronic Aspiration: Video swallow eval:mild to moderate dal[place]-pharyngeal dysphagia Strict Aspiration and GERD precautions Regular diet and thin liquids. NO STRAWS GERD Continue PPI ANXIETY Stable continue home meds DVT PX SQ Lovenox CODE STATUS Full Code DISPOSITION: Plan to discharge home today Follow up with your Physician (PCP) at [place] in 1 week Follow up with your Marketing Programs Manager at [place] in [address] chest in December 2016: For chronic changes evaluation. May need bronchoscopy if infiltrates persist. PROCEDURES: CT CHEST: 1. There is no evidence of pulmonary embolus in the main, lobar, or segmental pulmonary arteries. 2. Advanced emphysema with evidence of pulmonary artery hypertension. 3. There is patchy airspace consolidation with foci of parenchymal nodularity seen at both lung bases, the right middle lobe, and the left upper lobe. There is also diffuse peribronchial thickening. These findings are typical for multifocal pneumonia. Precautionary 3-6 month follow-up chest CT is recommended to document resolution and to exclude the possibility of underlying pulmonary lesion. 4. Mildly enlarged mediastinal and hilar lymph nodes are likely on a reactive basis. Video Swallow Study: 1. Aspiration was seen with thin barium. 2. Pharyngeal penetration was identified with pudding nectar thick liquids. 3. See dedicated speech pathology report for detailed findings and recommendations. Total time spent on discharge = 40 minutes This includes examination of the patient, discharge planning, medication reconciliation, and communication with other providers. Discharge Instructions Discharge Instructions Date of Service Sep 24, 2016. Admission Reason for Admission: Pneumonia Discharge Discharge Diagnosis / Problem: Pneumonia, COPD exacerbation, [place]-pharyngeal dysphagia Discharge Goals Goal(s): Decrease discomfort, Improve function Activity Recommendations Activity Limitations: resume your previous activity Exercise/Sports Limitations: as tolerated . Instructions / Follow-Up Instructions / Follow-Up Follow up with your Physician (PCP) at [place] in 1 week Follow up with your Marketing Programs Manager at [place] in [address] chest in December 2016: For chronic changes evaluation. May need bronchoscopy if infiltrates persist. Complete the antibiotic course as advised Continue Oxygen vial Nasal Cannula: 3L at rest and 5L with activity/ambulation Aspiration Precautions: 1.Regular diet and thin liquids. 2.Strict aspiration and GERD precautions. NO straws. Fully upright for all oral intake and for 30-60 minutes after meals. HOB at 30 degrees at all times to include while asleep. 3.Safe swallow strategies: Small bites, small single sips of liquids. Throat clear/cough after swallowing liquids. Stringent oral care to include brushing of the teeth and all surfaces of the mouth in the morning, prior to and after each meal, and before bed. Current Hospital Diet Patient's current hospital diet: Regular Diet Discharge Diet Recommended Diet: Regular Diet Pending Studies Studies pending at discharge: no Medical Emergencies . Who to Call and When: Medical Emergencies: If at any time you feel your situation is an emergency, please call 911 immediately. . Non-Emergent Contact Non-Emergency issues call your: Primary Care Provider, Marketing Programs Manager Call Non-Emergent contact if: you have a fever, your pain is not controlled, your pain is worsening, your pain is unusual for you, you have any medication questions If your SOB, wheezing or Cough is worsening . . "Provider Documentation" section prepared by Tino Regan. VTE Core Measure Inpt VTE Proph given/why not?: Enoxaparin (Lovenox)SQ
[2016-09-24 16:40] VITALS: BP 138/81; PULSE 75; TEMP 36.6; O2SAT 94
[2016-09-25] MEDS ORDERED: TIOTROPIUM BROMIDE 5 PUFF/90 MCG INH INH SCH (08:00)
== END 2016-09-24 17:00 | disposition home or self-care (01) | DRG 177 ==
LOC: ENRESERVDT → ENRESERVTM → C.EDB 11:40 → C.2T 13:46 → C.MS4W 09-23 14:22
PROVIDERS: ADMIT Hospitalist; ATTEND Internal Medicine
DX: J69.0 Pneumonitis due to inhalation of food and vomit (principal); J96.21 Acute and chronic respiratory failure with hypoxia; Y95 Nosocomial condition; K21.9 Gastro-esophageal reflux disease without esophagitis; F43.10 Post-traumatic stress disorder, unspecified; R13.12 Dysphagia, oropharyngeal phase; F41.9 Anxiety disorder, unspecified; F32.9 Major depressive disorder, single episode, unspecified; T38.0X5A Adverse effect of glucocorticoids and synthetic analogues, initial encounter; J43.9 Emphysema, unspecified; Z87.891 Personal history of nicotine dependence; Z88.8 Allergy status to other drugs, medicaments and biological substances; Z86.79 Personal history of other diseases of the circulatory system; Z79.51 Long term (current) use of inhaled steroids; Z79.899 Other long term (current) drug therapy; Z79.891 Long term (current) use of opiate analgesic; Z53.29 Procedure and treatment not carried out because of patient's decision for other reasons

== ENCOUNTER 2017-05-31 14:50 | Inpatient (IN) | payer OTHER ==
[~2017-05-31] VITALS: Ht 180.3 cm; Wt 70.4 kg
[~2017-05-31 14:50] MED LIST changes: +LVQ500 PO; -LVQ750 PO; -SUCR1TAB29 PO
[2017-05-31] MEDS ORDERED: ALBUT/IPRATROP 3MG/0.5MG NEB 3 ML VIAL INH STA (14:57)
--- NOTE | 2017-05-31 15:21 | EMERGENCY ROOM VISIT NOTE ---
History Report prepared by Georgi: Benedicto Polanco Under the Supervision of: Dr. Reinaldo Gallegos D.O. First contact with patient: 14:55 Chief Complaint: CHEST PAIN Stated Complaint: SHORT OF BREATH, CHEST PAIN History of Present Illness The patient is a 67 year old male who presents to the Emergency Room with complaints of constant shortness of breath starting yesterday. The patient has had pneumonia three times already this year, and he went to a friends house this morning, and he had an oxygen saturation of 69%. The patient is supposed to be on 3L of oxygen, though he is weaning himself off. He reports that he has had some chest pain on the right side, though he states that it could be from coughing. He denies any leg swelling, leg pain, fever, chills, nausea, and vomiting. He notes that last night he had some night sweats. The patient states that he has been having difficulty breathing since 1970, and he used to smoke and quit 6 months ago. He has a history of COPD and emphysema, and he has no history of lung clots. Source of History: patient Onset: yesterday Position: other (global) Quality: other (shortness of breath) Timing: constant Associated Symptoms: + cough, + chest pain, No fevers, No chills, No nausea , No vomiting Review of Systems See HPI for pertinent positives & negatives. A total of 10 systems reviewed and were otherwise negative. 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[employer] HELPER vasculitis (5) PTSD (post-traumatic stress disorder) Surgical Problems: (1) H/O hernia repair (2) S/P arthroscopic surgery of right knee Family History FH: colon cancer MOTHER FH: kidney cancer FATHER Heart disease Uncle Social History Smoking Status: Former Smoker Alcohol Use: none Drug Use: none Marital Status: Housing Status: unknown Occupation Status: retired Current/Historical Medications Scheduled Budesonide/Formoterol Fumarate (Symbicort 160/4.5 Inhaler ), 2 PUFF INH BID Buspirone Hcl (Buspirone Hcl), 5 MG PO HS Cetirizine (Zyrtec), 10 MG PO DAILY Docusate Sodium (Colace), 100 MG PO DAILY Guaifenesin Ext Rel (Mucinex Ext Rel), 600 MG PO Q12 Omeprazole (Prilosec), 20 MG PO BID Sertraline Hcl (Zoloft), 200 MG PO HS Tiotropium Volin (Spiriva Handihaler), 1 CAP INH DAILY Trazodone HCl (Trazodone HCl), 150 MG PO HS Scheduled PRN Albuterol Hfa (Ventolin Hfa), 2-4 PUFFS INH Q6H PRN for ASTHMA Albuterol Sulf (Proventil 0.083% 2.5MG/3ML), 2.5 MG INH QID PRN for SOB/Wheezing Epinephrine (Epipen 2-Wilman), 0.3 MG IM UD PRN for ALLERGIC REACTION Tramadol HCl (Tramadol HCl), 50 MG PO Q6H PRN for Pain Allergies Coded Allergies: Pneumococcal Vaccine (Verified Allergy, Severe, SWELLING, 05/31/17) Prednisone (Verified Allergy, Severe, confusion and agitation, 05/31/17) Amoxicillin (Verified Allergy, Intermediate, FACIAL SWELLING (EYES SWELLED SHUT), 05/31/17) SPOKE W/ PATIENT REGARDING ALLERGYON 10/09/11--> FACIAL SWELLING, EYES SWELLED SHUT WITH SUGMENTIN. PATIENT HAS TOLERATED ROCEPHIN IV IN PAST. Clavulanic Acid (Verified Allergy, Intermediate, FACIAL SWELLING (EYES SWELLED SHUT), 05/31/17) SEE COMMENT UNDER AMOXICILLIN BEE STING (Unverified Allergy, Unknown, ANAPHYLAXIS, 05/31/17) Statins (Verified Allergy, Unknown, UNKNOWN, 05/31/17) Physical Exam Vital Signs Date Time Temp Pulse Resp B/P (MAP) Pulse Ox O2 Delivery O2 Flow Rate FiO2 05/31/17 17:16 70 20 96 Mask 5.0 05/31/17 17:11 72 22 93 Mask 5.0 05/31/17 17:01 96/63 05/31/17 16:41 72 23 94 Mask 5.0 05/31/17 16:36 74 20 94 Mask 5.0 05/31/17 16:31 115/56 05/31/17 16:06 76 26 94 Mask 5.0 05/31/17 16:01 108/57 05/31/17 15:50 72 19 94 Mask 5.0 05/31/17 15:36 122/59 05/31/17 15:36 73 24 122/59 94 Mask 5.0 05/31/17 15:31 94 Mask 5.0 05/31/17 15:20 73 88 05/31/17 15:03 80 05/31/17 15:00 37.3 79 24 113/59 92 Nasal Cannula 3.0 05/31/17 15:00 84 Nasal Cannula 3.0 05/31/17 14:58 113/59 Physical Exam GENERAL: Patient is awake, alert, very anxious appearing. Appears to be having difficulty with breathing. EYES: The conjunctivae are clear. The pupils are round and reactive. EARS, NOSE, MOUTH AND THROAT: The nose is without any evidence of any deformity. Mucous membranes are moist tongue is midline NECK: The neck is nontender and supple. RESPIRATORY: Lung sounds are diminished throughout. There was absent breath sounds at the right base. Scattered expiratory wheezing throughout. Pursed lip breathing noted. Significant conversational dyspnea. CARDIOVASCULAR: Regular rate and rhythm noted there no murmurs rubs or gallops normal S1 normal S2 GASTROINTESTINAL: The abdomen is soft. Bowel sounds are present in all quadrants. Abdomen is nontender PELVIS: The Pelvis is stable. No tenderness to palpation is noted. BACK: No midline tenderness or or step-off noted range of motion in flexion extension as well as rotation no signs of muscle spasm noted MUSCULOSKELETAL/EXTREMITIES: There is no evidence of gross deformity full range of motion is noted in the hips and shoulders SKIN: There is no obvious evidence of any rash. There are no petechiae, pallor or cyanosis noted. NEUROLOGIC: Patient is awake alert and oriented x3 Medical Decision & Procedures ER Provider Diagnostic Interpretation: Radiology results as stated below per my review and radiologist interpretation: CHEST ONE VIEW PORTABLE CLINICAL HISTORY: Sepsis COMPARISON STUDY: Chest radiograph and chest CT September 21, 2016. FINDINGS: Severe emphysema is noted. No pneumothorax or pleural effusion is present. Patchy right midlung airspace opacity has developed. Cardiac size is normal. Mediastinal contours are normal. There is no radiographic evidence of pulmonary edema. IMPRESSION: 1. Interval development of mild right midlung opacity which favors pneumonia. Radiographic follow-up to ensure resolution is recommended. 2. Severe emphysema. Electronically signed by: Mode Solis M.D. 05/31/2017 3:44 PM Dictated Date/Time: 05/31/2017 3:43 PM Laboratory Results 05/31/17 15:20 Red Blood Count 4.42, Mean Corpuscular Volume 90.0, Mean Corpuscular Hemoglobin 29.2, Mean Corpuscular Hemoglobin Concent 32.4, Mean Platelet Volume 9.6, Neutrophils (%) (Auto) 76.6, Lymphocytes (%) (Auto) 11.8, Monocytes (%) (Auto) 10.7, Eosinophils (%) (Auto) 0.3, Basophils (%) (Auto) 0.2, Neutrophils # (Auto ) 9.48, Lymphocytes # (Auto) 1.46, Monocytes # (Auto) 1.33, Eosinophils # (Auto ) 0.04, Basophils # (Auto) 0.03 05/31/17 15:20 Test 05/31/17 15:08 05/31/17 15:20 05/31/17 15:35 05/31/17 15:38 Venous Blood pH 7.41 (7.36-7.41) Venous Blood Partial Pressure CO2 45 mmHg (38.0-50.0) Venous Blood Partial Pressure O2 40 mmHg Venous Blood HCO3 28 mmol/L Venous Blood Oxygen Saturation 73.4 % Venous Blood Base Excess 3.0 mEq/L White Blood Count 12.39 K/uL (4.8-10.8) Red Blood Count 4.42 M/uL (4.7-6.1) Hemoglobin 12.9 g/dL (14.0-18.0) Hematocrit 39.8 % (42-52) Mean Corpuscular Volume 90.0 fL (80-100) Mean Corpuscular Hemoglobin 29.2 pg (25-34) Mean Corpuscular Hemoglobin Concent 32.4 g/dl (32-36) Platelet Count 192 K/uL (130-400) Mean Platelet Volume 9.6 fL (7.4-10.4) Neutrophils (%) (Auto) 76.6 % Lymphocytes (%) (Auto) 11.8 % Monocytes (%) (Auto) 10.7 % Eosinophils (%) (Auto) 0.3 % Basophils (%) (Auto) 0.2 % Neutrophils # (Auto) 9.48 K/uL (1.4-6.5) Lymphocytes # (Auto) 1.46 K/uL (1.2-3.4) Monocytes # (Auto) 1.33 K/uL (0.11-0.59) Eosinophils # (Auto) 0.04 K/uL (0-0.5) Basophils # (Auto) 0.03 K/uL (0-0.2) RDW Standard Deviation 49.2 fL (36.4-46.3) RDW Coefficient of Variation 15.0 % (11.5-14.5) Immature Granulocyte % (Auto) 0.4 % Immature Granulocyte # (Auto) 0.05 K/uL (0.00-0.02) Erythrocyte Sedimentation Rate 36 mm/hr (0-14) Prothrombin Time 11.3 SECONDS (9.0-12.0) Prothromb Time International Ratio 1.1 (0.9-1.1) Activated Partial Thromboplast Time 30.2 SECONDS (21.0-31.0) Partial Thromboplastin Ratio 1.2 D-Dimer 350 ug/L FEU (0-500) Anion Gap 4.0 mmol/L (3-11) Est Creatinine Clear Calc Drug Dose 70.7 ml/min Estimated GFR () 88.8 Estimated GFR (Non- 76.6 BUN/Creatinine Ratio 8.8 (10-20) Calcium Level 8.5 mg/dl (8.5-10.1) Phosphorus Level 1.7 mg/dl (2.5-4.9) Magnesium Level 2.1 mg/dl (1.8-2.4) Total Bilirubin 0.7 mg/dl (0.2-1) Aspartate Amino Transf (AST/SGOT) 18 U/L (15-37) Alanine Aminotransferase (ALT/SGPT) 19 U/L (12-78) Alkaline Phosphatase 74 U/L (45-117) Total Creatine Kinase 173 U/L (39-308) Creatine Kinase MB 1.0 ng/ml (0.5-3.6) Creatine Kinase MB Ratio 0.6 (0-3.0) Troponin I < 0.015 ng/ml (0-0.045) C-Reactive Protein 16.40 mg/dl (0-0.29) Pro-B-Type Natriuretic Peptide 1168 pg/ml (0-900) Total Protein 6.9 gm/dl (6.4-8.2) Albumin 3.3 gm/dl (3.4-5.0) Globulin 3.6 gm/dl (2.5-4.0) Albumin/Globulin Ratio 0.9 (0.9-2) Lipase 47 U/L (73-393) Influenza Type A (RT-PCR) Neg for Influ A (NEG) Influenza Type A Antigen Neg for Influ A (NEG) Influenza Type B Antigen Neg for Influ B (NEG) Influenza Type B (RT-PCR) Neg for Influ B (NEG) Bedside Lactic Acid Venous 0.66 mmol/L (0.90-1.70) Laboratory results per my review. Medications Administered Medications (Trade) Dose Ordered Sig/Oren Route Start Time Stop Time Status Last Admin Dose Admin Albuterol/ Ipratropium (Duoneb) 3 ml NOW STAT INH 05/31/17 14:57 05/31/17 14:59 DC 05/31/17 15:27 3 ML Levofloxacin (Levaquin / D5W) 750 mg NOW STAT IV 05/31/17 16:15 05/31/17 16:16 DC 05/31/17 16:25 750 MG Sodium Chloride 1,000 ml @ 999 mls/hr Q1H1M STAT IV 05/31/17 16:28 05/31/17 17:28 DC 05/31/17 16:37 999 MLS/HR Oxycodone HCl (Roxicodone Immediate Rel Tab) 5 mg NOW STAT PO 05/31/17 16:28 05/31/17 16:29 DC 05/31/17 16:37 5 MG ECG Indication: chest pain, SOB/dyspnea Rate (beats per minute): 78 Rhythm: normal sinus Findings: nonspecific-ST abn (diffuse) Comparison ECG Date: 09/21/16 Change: no significant change ED Course 1455: The patient was evaluated in room C9. A complete history and physical examination were performed. 1457: DuoNeb 3ml INH 1615: Levofloxacin 750mg IV 1628: I discussed the patient's case with Molly MERCHANT. The patient will be evaluated for further management. I ordered Oxycodone HCl 5mg PO and NSS 1,000 ml @ 999 mls/hr IV 1640: I discussed the treatment plan with the patient, and he was agreeable. He will be evaluated for further management. Medical Decision Differential diagnosis: Etiologies such as infections, reactive airway disease, pneumonia, pneumothorax , COPD, CHF, cardiac ischemia, pulmonary embolism, musculoskeletal, gastrointestinal, as well as others were entertained. Nursing notes reviewed. The patient is a 67-year-old male who presented to the emergency department for an evaluation of shortness of breath and dyspnea on exertion. The patient has a history of COPD but also started having a productive cough. The patient was found have signs of pneumonia on chest x-ray. The the patient was treated with IV fluids IV antibiotics and DuoNeb in the emergency department. He was also placed and supple at all oxygen. The patient's hypoxia was significantly improved. I discussed the patient's laboratory and radiographic studies with him. I discussed his case with the on-call [facility] hospitalist group. They've agreed to evaluate the patient in the emergency apartment for further management and disposition. Medication Reconcilliation Current Medication List: was personally reviewed by me Blood Pressure Screening Patient's blood pressure: Normal blood pressure Consults Time Called: 162 Consulting Physician: Molly MERCHANT Returned Call: [phone] I discussed the patient's case with Molly MERCHANT. The patient will be evaluated for further management. Impression Primary Impression: Pneumonia Additional Impressions: Hypoxia COPD (chronic obstructive pulmonary disease) Scribe Attestation The scribe's documentation has been prepared under my direction and personally reviewed by me in its entirety. I confirm that the note above accurately reflects all work, treatment, procedures, and medical decision making performed by me. Departure Information Dispostion Being Evaluated By Hospitalist Referrals No Doctor, Assigned (PCP) Patient Instructions My [facility] Problem Qualifiers Primary Impression: Pneumonia Pneumonia type: due to unspecified organism Laterality: right Lung location : middle lobe of lung Qualified Codes: J18.1 - Lobar pneumonia, unspecified organism Additional Impressions: COPD (chronic obstructive pulmonary disease) COPD type: unspecified COPD Qualified Codes: J44.9 - Chronic obstructive pulmonary disease, unspecified
[2017-05-31 15:38] LABS: VEN BLD GAS O2 SATURATION 73.4 %
[2017-05-31 15:41] LABS: BASO % 0.2 %; BASO ABS # 0.03 K/uL (0-0.2); COMPLETE YES; EOS % 0.3 %; HEMATOCRIT 39.8 % (42-52); IG% 0.4 %; LYMPH % 11.8 %; LYMPH ABS # 1.46 K/uL (1.2-3.4); MEAN CORPUSCULAR HEMOGLOBIN 29.2 pg (25-34); MEAN CORPUSCULAR HGB CONC 32.4 g/dl (32-36); MEAN PLATELET VOLUME 9.6 fL (7.4-10.4); MONO % 10.7 %; NEUT % 76.6 %; PLATELET COUNT 192 K/uL (130-400); RED BLOOD COUNT 4.42 M/uL (4.7-6.1); WHITE BLOOD COUNT 12.39 K/uL (4.8-10.8)
--- NOTE | 2017-05-31 15:45 | DIAGNOSTIC IMAGING REPORT ---
CHEST ONE VIEW PORTABLE CLINICAL HISTORY: Sepsis COMPARISON STUDY: Chest radiograph and chest CT September 21, 2016. FINDINGS: Severe emphysema is noted. No pneumothorax or pleural effusion is present. Patchy right midlung airspace opacity has developed. Cardiac size is normal. Mediastinal contours are normal. There is no radiographic evidence of pulmonary edema. IMPRESSION: 1. Interval development of mild right midlung opacity which favors pneumonia. Radiographic follow-up to ensure resolution is recommended. 2. Severe emphysema. Electronically signed by: Mode Solis M.D. 05/31/2017 3:44 PM Dictated Date/Time: 05/31/2017 3:43 PM
[2017-05-31] MEDS ORDERED: SPRIN/30 INH (15:46)
[2017-05-31] MEDS ORDERED: DOCU-94 PO (15:46)
[2017-05-31] MEDS ORDERED: DSY/150 PO (15:46)
[2017-05-31] MEDS ORDERED: ALBINS/ INH (15:46)
[2017-05-31] MEDS ORDERED: VNTHFA/IN INH (15:46)
[2017-05-31 15:49] LABS: INR 1.1 (0.9-1.1); PARTIAL THROMBOPLASTIN RATIO 1.2; PROTHROMBIN TIME (PATIENT) 11.3 SECONDS (9.0-12.0)
[2017-05-31 16:00] LABS: ALT/SGPT 19 U/L (12-78); AST/SGOT 18 U/L (15-37); BLOOD UREA NITROGEN 9 mg/dl (7-18); BUN/CREATININE RATIO 8.8 (10-20); CALCIUM 8.5 mg/dl (8.5-10.1); CARBON DIOXIDE 28 mmol/L (21-32); CHLORIDE 100 mmol/L (98-107); CREATININE 1.01 mg/dl (0.60-1.40); GLUCOSE 120 mg/dl (70-99); MAGNESIUM 2.1 mg/dl (1.8-2.4); POTASSIUM 3.8 mmol/L (3.5-5.1); SODIUM 132 mmol/L (136-145)
[2017-05-31 16:03] LABS: ALB/GLOB RATIO 0.9 (0.9-2); ALKALINE PHOSPHATASE 74 U/L (45-117); CKMB/CK RATIO 0.6 (0-3.0); PHOSPHORUS 1.7 mg/dl (2.5-4.9)
[2017-05-31] MEDS ORDERED: LEVAQUIN 750MG / 150ML D5W IV STA (16:15)
[2017-05-31] MEDS ORDERED: OXYCODONE HCL IR 5 MG TAB (IMMEDIATE RELEASE) PO STA (16:28)
[2017-05-31] MEDS ORDERED: SODIUM CHLORIDE 0.9% 1000ML 1,000 ML IV STA (16:28)
[2017-05-31 17:03] LABS: INFLUENZA A PCR Neg for Influ A (NEG); INFLUENZA B PCR Neg for Influ B (NEG)
[2017-05-31] MEDS ORDERED: ONDANSETRON INJ 2 MG/ML 2 ML VIAL IV PRN (17:15)
[2017-05-31] MEDS ORDERED: ACETAMINOPHEN 325 MG TAB PO PRN (17:15)
[2017-05-31] MEDS ORDERED: CETI10TA84 PO (17:51)
[2017-05-31] MEDS ORDERED: AZITHROMYCIN 250 MG TAB PO STA (17:57)
[2017-05-31 19:06] VITALS: Ht 180.3 cm; Wt 70.4 kg
[2017-05-31] MEDS: METHYLPREDNISOLONE IV 40 MG in SYRINGE 0 ML IV SCH (19:24)
[2017-05-31] MEDS: TRAMADOL HCL 50 MG TAB PO PRN (19:24)
--- NOTE | 2017-05-31 19:30 | History and Physical ---
History & Physical Date & Time of Service: May 31, 2017 ~ 17:00 Chief Complaint: Shortness of Breath Primary Care Physician: [facility] History of Present Illness 67 year old male who presents to the ED with shortness of breath. Patient reports his symptoms began two days ago. He reports increasing shortness of breath with exertion as well as at rest. He has had a cough productive for green and yellow sputum. He denies fever and chills. Patient reports he was on oxygen in the past however weaned himself off of it. He follows with a training and development project leader at the [facility]. He checked his oxygen saturations at home today and reports they were in the 60s. He then came to the ED for further evaluation. He denies chest pain and palpitations. No lightheadedness or dizziness. He denies abdominal pain, nausea, vomiting, or diarrhea. No urinary symptoms. In the ED, patient was saturating 84% on 3L via NC. Saturations improved with neb treatment and oxygen 5L via mask. CXR shows right mid lung pneumonia. He was given IV Levaquin. 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 (4) PTSD (post-traumatic stress disorder) Status: Chronic Surgical Problems: (1) H/O hernia repair Status: Resolved (2) S/P arthroscopic surgery of right knee Status: Resolved Family History FH: colon cancer MOTHER FH: kidney cancer FATHER Heart disease Uncle Social History Smoking Status: Former Smoker Alcohol Use: none Multi-Drug Resistant Organisms History of MDRO: No Allergies Coded Allergies: Pneumococcal Vaccine (Verified Allergy, Severe, SWELLING, 05/31/17) Prednisone (Verified Allergy, Severe, confusion and agitation, 05/31/17) Amoxicillin (Verified Allergy, Intermediate, FACIAL SWELLING (EYES SWELLED SHUT), 05/31/17) SPOKE W/ PATIENT REGARDING ALLERGYON 10/09/11--> FACIAL SWELLING, EYES SWELLED SHUT WITH SUGMENTIN. PATIENT HAS TOLERATED ROCEPHIN IV IN PAST. Clavulanic Acid (Verified Allergy, Intermediate, FACIAL SWELLING (EYES SWELLED SHUT), 05/31/17) SEE COMMENT UNDER AMOXICILLIN BEE STING (Unverified Allergy, Unknown, ANAPHYLAXIS, 05/31/17) Statins (Verified Allergy, Unknown, UNKNOWN, 05/31/17) Home Medications Scheduled Budesonide/Formoterol Fumarate (Symbicort 160/4.5 Inhaler ), 2 PUFF INH BID Buspirone Hcl (Buspirone Hcl), 5 MG PO HS Cetirizine (Zyrtec), 10 MG PO DAILY Docusate Sodium (Colace), 100 MG PO DAILY Guaifenesin Ext Rel (Mucinex Ext Rel), 600 MG PO Q12 Omeprazole (Prilosec), 20 MG PO BID Sertraline Hcl (Zoloft), 200 MG PO HS Tiotropium [place] (Spiriva Handihaler), 1 CAP INH DAILY Trazodone HCl (Trazodone HCl), 150 MG PO HS Scheduled PRN Albuterol Hfa (Ventolin Hfa), 2-4 PUFFS INH Q6H PRN for ASTHMA Albuterol Sulf (Proventil 0.083% 2.5MG/3ML), 2.5 MG INH QID PRN for SOB/Wheezing Epinephrine (Epipen 2-Wilman), 0.3 MG IM UD PRN for ALLERGIC REACTION Tramadol HCl (Tramadol HCl), 50 MG PO Q6H PRN for Pain Review of Systems ROS per HPI, all other systems reviewed and negative Physical Exam Vital Signs Date Time Temp Pulse Resp B/P (MAP) Pulse Ox O2 Delivery O2 Flow Rate FiO2 05/31/17 17:46 37.3 70 20 119/60 96 05/31/17 17:31 119/60 05/31/17 17:16 70 20 96 Mask 5.0 05/31/17 17:11 72 22 93 Mask 5.0 05/31/17 17:01 96/63 05/31/17 16:41 72 23 94 Mask 5.0 05/31/17 16:36 74 20 94 Mask 5.0 05/31/17 16:31 115/56 05/31/17 16:06 76 26 94 Mask 5.0 05/31/17 16:01 108/57 05/31/17 15:50 72 19 94 Mask 5.0 05/31/17 15:36 122/59 05/31/17 15:36 73 24 122/59 94 Mask 5.0 05/31/17 15:31 94 Mask 5.0 05/31/17 15:20 73 88 05/31/17 15:03 80 05/31/17 15:00 37.3 79 24 113/59 92 Nasal Cannula 3.0 05/31/17 15:00 84 Nasal Cannula 3.0 05/31/17 14:58 113/59 General Appearance: WD/WN, no apparent distress Head: normocephalic, atraumatic Eyes: normal inspection, EOMI, sclerae normal ENT: hearing grossly normal, + pertinent finding (mucous membranes moist) Neck: supple, no JVD, trachea midline Respiratory/Chest: no respiratory distress (able to speak in full sentences), + decreased breath sounds, + wheezing (faint, end expiratory wheezing scattered throughout all lung cisneros) Cardiovascular: regular rate, rhythm, no edema, normal peripheral pulses Abdomen/GI: normal bowel sounds, non tender, soft, no organomegaly Extremities/Musculoskelatal: normal inspection, no calf tenderness, normal capillary refill Neurologic/Psych: no motor/sensory deficits, alert, normal mood/affect, oriented x 3 Skin: warm/dry, + pertinent finding (scattered bruising and abrasions noted to BLUE in various stages of healing) Diagnostics Laboratory Results Results Past 24 Hours Test 05/31/17 15:08 05/31/17 15:20 05/31/17 15:35 05/31/17 15:38 Range/Units Venous Blood pH 7.41 7.36-7.41 Venous Blood Partial Pressure CO2 45 38.0-50.0 mmHg Venous Blood Partial Pressure O2 40 mmHg Venous Blood HCO3 28 mmol/L Venous Blood Oxygen Saturation 73.4 % Venous Blood Base Excess 3.0 mEq/L White Blood Count 12.39 4.8-10.8 K/uL Red Blood Count 4.42 4.7-6.1 M/uL Hemoglobin 12.9 14.0-18.0 g/dL Hematocrit 39.8 42-52 % Mean Corpuscular Volume 90.0 80-100 fL Mean Corpuscular Hemoglobin 29.2 25-34 pg Mean Corpuscular Hemoglobin Concent 32.4 32-36 g/dl Platelet Count 192 130-400 K/uL Mean Platelet Volume 9.6 7.4-10.4 fL Neutrophils (%) (Auto) 76.6 % Lymphocytes (%) (Auto) 11.8 % Monocytes (%) (Auto) 10.7 % Eosinophils (%) (Auto) 0.3 % Basophils (%) (Auto) 0.2 % Neutrophils # (Auto) 9.48 1.4-6.5 K/uL Lymphocytes # (Auto) 1.46 1.2-3.4 K/uL Monocytes # (Auto) 1.33 0.11-0.59 K/uL Eosinophils # (Auto) 0.04 0-0.5 K/uL Basophils # (Auto) 0.03 0-0.2 K/uL RDW Standard Deviation 49.2 36.4-46.3 fL RDW Coefficient of Variation 15.0 11.5-14.5 % Immature Granulocyte % (Auto) 0.4 % Immature Granulocyte # (Auto) 0.05 0.00-0.02 K/uL Erythrocyte Sedimentation Rate 36 0-14 mm/hr Prothrombin Time 11.3 9.0-12.0 SECONDS Prothromb Time International Ratio 1.1 0.9-1.1 Activated Partial Thromboplast Time 30.2 21.0-31.0 SECONDS Partial Thromboplastin Ratio 1.2 D-Dimer 350 0-500 ug/L FEU Sodium Level 132 136-145 mmol/L Potassium Level 3.8 3.5-5.1 mmol/L Chloride Level 100 98-107 mmol/L Carbon Dioxide Level 28 21-32 mmol/L Anion Gap 4.0 3-11 mmol/L Blood Urea Nitrogen 9 7-18 mg/dl Creatinine 1.01 0.60-1.40 mg/dl Est Creatinine Clear Calc Drug Dose 70.7 ml/min Estimated GFR () 88.8 Estimated GFR (Non- 76.6 BUN/Creatinine Ratio 8.8 10-20 Random Glucose 120 70-99 mg/dl Calcium Level 8.5 8.5-10.1 mg/dl Phosphorus Level 1.7 2.5-4.9 mg/dl Magnesium Level 2.1 1.8-2.4 mg/dl Total Bilirubin 0.7 0.2-1 mg/dl Aspartate Amino Transf (AST/SGOT) 18 15-37 U/L Alanine Aminotransferase (ALT/SGPT) 19 12-78 U/L Alkaline Phosphatase 74 45-117 U/L Total Creatine Kinase 173 39-308 U/L Creatine Kinase MB 1.0 0.5-3.6 ng/ml Creatine Kinase MB Ratio 0.6 0-3.0 Troponin I < 0.015 0-0.045 ng/ml C-Reactive Protein 16.40 0-0.29 mg/dl Pro-B-Type Natriuretic Peptide 1168 0-900 pg/ml Total Protein 6.9 6.4-8.2 gm/dl Albumin 3.3 3.4-5.0 gm/dl Globulin 3.6 2.5-4.0 gm/dl Albumin/Globulin Ratio 0.9 0.9-2 Lipase 47 73-393 U/L Influenza Type A (RT-PCR) Neg for Influ A NEG Influenza Type A Antigen Neg for Influ A NEG Influenza Type B Antigen Neg for Influ B NEG Influenza Type B (RT-PCR) Neg for Influ B NEG Bedside Lactic Acid Venous 0.66 0.90-1.70 mmol/L Microbiology Results 05/31/17 Blood Culture, Received Pending 05/31/17 Blood Culture, Received Pending Diagnostic Radiology CXR IMPRESSION: 1. Interval development of mild right midlung opacity which favors pneumonia. Radiographic follow-up to ensure resolution is recommended. 2. Severe emphysema. Impression Assessment and Plan ACUTE ON CHRONIC HYPOXIC RESPIRATORY FAILURE DUE TO COPD EXACERBATION AND PNEUMONIA - admit to med/surg - patient presenting with shortness of breath and productive cough x 2 days; in the ED, found to be hypoxic on 3L and CXR showing RML pneumonia - patient reports he has been on oxygen in the past however weaned himself off of it; currently requiring 5L via mask - follows with training and development project leader at [facility] - consider aspiration - patient has history of and also recently got a new bridge and reports trouble chewing at times; will obtain speech eval - s/p Levaquin in the ED; will change to Rocephin and azithromycin - IV steroids (patient reports severe hallucinations with oral steroids), around the clock nebs, continue home inhaled corticosteroid, flutter valve to help mobilize secretions - may need home O2 eval HYPOPHOSPHATEMIA - replace, follow up labs GERD - continue PPI DEPRESSION / PTSD - continue buspirone, sertraline, and trazodone DVT PROPHYLAXIS - SQ Lovenox DISPO - In my clinical judgment this beneficiary meets acute admission criteria, established by [facility], that includes being hospitalized through two midnights. Attending Addendum: The patient was seen adn examined Admitted with COPD exacerbation Feels a little better Want to go home tomorrow O/E Moderate SOB at rest Some right sided chest wall pain Chest-decreased breath sound bilaterally No Wheezing Heart-regular Abdomen-benign,no masses,bowel sound present Labs and Imaging studies were reviewed Agree with the assessment and plan. HE CANNOT TOLERATE ORAL PREDNISONE DR Michelle Sandoval VTE Prophylaxis VTE Risk Assessment Done? Y/N: Yes Risk Level: Moderate
[2017-05-31] MEDS: ALBUT/IPRATROP 3MG/0.5MG NEB 3 ML VIAL INH SCH (19:36)
[2017-05-31 19:39] VITALS: PULSE 66; O2SAT 91
[2017-05-31] MEDS ORDERED: POTASSIUM PHOS 3 MMOL/1 ML INFUSION IV STA (19:48)
[2017-05-31] MEDS: BUDESONIDE/FORMOTEROL FUMARATE 160/4.5 60 PUFFS/INHALER INH SCH (20:21)
[2017-05-31] MEDS: CEFTRIAXONE SOD INJ 1 GM in DEXTROSE 5% ADD-VANTAGE 50ML 50 ML IV SCH (20:21)
[2017-05-31] MEDS: SERTRALINE HCL 100 MG TAB PO SCH (20:21)
[2017-05-31] MEDS: GUAIFENESIN 600 MG TABCR PO SCH (20:22)
[2017-05-31] MEDS: PANTOprazole SOD 40 MG TAB PO SCH (20:22)
[2017-05-31] MEDS: TRAZODONE HCL 50 MG TAB PO SCH (20:22)
[2017-05-31] MEDS: ENOXAPARIN 40 MG/0.4 ML SYR SQ SCH (20:23)
[2017-05-31] MEDS ORDERED: POTASSIUM PHOSPHATE INJ 40 MMOL in SODIUM CHLORIDE 0.9% 1000ML 1,000 ML IV ONE (20:30)
[2017-06-01] VITALS (7 sets, daily range): BP systolic 104–133; BP diastolic 63–75; PULSE 64–91; TEMP 36.5–37; O2SAT 91–95
[2017-06-01] MEDS: ALBUT/IPRATROP 3MG/0.5MG NEB 3 ML VIAL INH SCH ×4 (03:00→18:58)
[2017-06-01 03:12] LABS: URINE APPEARANCE CLEAR (CLEAR); URINE BILIRUBIN NEG (NEG); URINE COLOR YELLOW; URINE NITRITE NEG (NEG); URINE PH 6.5 (4.5-7.5); URINE SPECIFIC GRAVITY 1.005 (1.000-1.030); UROBILINOGEN NEG (NEG); ZZUR CULT IF INDIC CLEAN CATCH YES
[2017-06-01 03:21] LABS: MANUAL MICROSCOPIC REQUIRED? NO; REVIEW REQ? YES
[2017-06-01] MEDS: METHYLPREDNISOLONE IV 40 MG in SYRINGE 0 ML IV SCH ×3 (04:15→20:36)
[2017-06-01 06:40] LABS: HEMATOCRIT 40.9 % (42-52); MEAN CELL VOLUME 90.7 fL (80-100); MEAN CORPUSCULAR HEMOGLOBIN 29.3 pg (25-34); MEAN CORPUSCULAR HGB CONC 32.3 g/dl (32-36); MEAN PLATELET VOLUME 9.7 fL (7.4-10.4); PLATELET COUNT 182 K/uL (130-400); RED BLOOD COUNT 4.51 M/uL (4.7-6.1); WHITE BLOOD COUNT 7.22 K/uL (4.8-10.8)
[2017-06-01 07:08] LABS: CREATININE 0.87 mg/dl (0.60-1.40)
[2017-06-01 07:09] LABS: BUN/CREATININE RATIO 9.8 (10-20); CALCIUM 8.3 mg/dl (8.5-10.1); PHOSPHORUS 2.8 mg/dl (2.5-4.9); POTASSIUM 4.9 mmol/L (3.5-5.1)
[2017-06-01] MEDS: AZITHROMYCIN 250 MG TAB PO SCH (08:47)
[2017-06-01] MEDS: CETIRIZINE HCL 10 MG TAB PO SCH (08:48)
[2017-06-01] MEDS: GUAIFENESIN 600 MG TABCR PO SCH ×2 (08:48→20:39)
[2017-06-01] MEDS: PANTOprazole SOD 40 MG TAB PO SCH ×2 (08:48→20:39)
[2017-06-01] MEDS: DOCUSATE SODIUM 100 MG CAP PO SCH (08:48)
[2017-06-01] MEDS: BUDESONIDE/FORMOTEROL FUMARATE 160/4.5 60 PUFFS/INHALER INH SCH ×2 (08:48→20:36)
--- NOTE | 2017-06-01 13:55 | Progress Note ---
Internal Med Progress Note Date of Service: Jun 01, 2017. Provider Documentation: SUBJECTIVE: Seen and examined at bedside Feels better today Less SOB, cough Denies chest pain, abd pain, dizziness No other complaints Family at bedside Eager to get discharged OBJECTIVE: Vital Signs-as noted below Physical Exam: General Appearance:Moderately built and nourished, no apparent distress Head: normocephalic, Atraumatic Eyes: normal inspection, EOMI, PERRL Neck: supple, Trachea midline Respiratory/Chest: Decreased breath sounds, B/L expiratory wheezing Cardiovascular: S1, S2, No murmur Abdomen/GI:Soft, Non tender, Bowel sounds present Extremities/Musculoskelatal:normal inspection, no edema Neurologic/Psych:AAOX3, grossly no focal neurological deficits Skin: normal color, warm Lab data as noted below. 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0 06/01/17 00:20 37.0 64 18 104/63 (77) 91 Nasal Cannula 4.0 06/01/17 00:00 Nasal Cannula 4.0 05/31/17 20:00 Nasal Cannula 4.0 05/31/17 19:39 66 16 91 Nasal Cannula 4.0 05/31/17 19:06 Nasal Cannula 4.0 05/31/17 17:46 37.3 70 20 119/60 96 05/31/17 17:31 119/60 05/31/17 17:16 70 20 96 Mask 5.0 05/31/17 17:11 72 22 93 Mask 5.0 05/31/17 17:01 96/63 05/31/17 16:41 72 23 94 Mask 5.0 05/31/17 16:36 74 20 94 Mask 5.0 05/31/17 16:31 115/56 05/31/17 16:06 76 26 94 Mask 5.0 05/31/17 16:01 108/57 05/31/17 15:50 72 19 94 Mask 5.0 05/31/17 15:36 122/59 05/31/17 15:36 73 24 122/59 94 Mask 5.0 05/31/17 15:31 94 Mask 5.0 05/31/17 15:20 73 88 05/31/17 15:03 80 05/31/17 15:00 37.3 79 24 113/59 92 Nasal Cannula 3.0 05/31/17 15:00 84 Nasal Cannula 3.0 05/31/17 14:58 113/59 Lab Results: Results Past 24 Hours Test 05/31/17 15:08 05/31/17 15:20 05/31/17 15:35 05/31/17 15:38 Range/Units Venous Blood pH 7.41 7.36-7.41 Venous Blood Partial Pressure CO2 45 38.0-50.0 mmHg Venous Blood Partial Pressure O2 40 mmHg Venous Blood HCO3 28 mmol/L Venous Blood Oxygen Saturation 73.4 % Venous Blood Base Excess 3.0 mEq/L White Blood Count 12.39 4.8-10.8 K/uL Red Blood Count 4.42 4.7-6.1 M/uL Hemoglobin 12.9 14.0-18.0 g/dL Hematocrit 39.8 42-52 % Mean Corpuscular Volume 90.0 80-100 fL Mean Corpuscular Hemoglobin 29.2 25-34 pg Mean Corpuscular Hemoglobin Concent 32.4 32-36 g/dl Platelet Count 192 130-400 K/uL Mean Platelet Volume 9.6 7.4-10.4 fL Neutrophils (%) (Auto) 76.6 % Lymphocytes (%) (Auto) 11.8 % Monocytes (%) (Auto) 10.7 % Eosinophils (%) (Auto) 0.3 % Basophils (%) (Auto) 0.2 % Neutrophils # (Auto) 9.48 1.4-6.5 K/uL Lymphocytes # (Auto) 1.46 1.2-3.4 K/uL Monocytes # (Auto) 1.33 0.11-0.59 K/uL Eosinophils # (Auto) 0.04 0-0.5 K/uL Basophils # (Auto) 0.03 0-0.2 K/uL RDW Standard Deviation 49.2 36.4-46.3 fL RDW Coefficient of Variation 15.0 11.5-14.5 % Immature Granulocyte % (Auto) 0.4 % Immature Granulocyte # (Auto) 0.05 0.00-0.02 K/uL Erythrocyte Sedimentation Rate 36 0-14 mm/hr Prothrombin Time 11.3 9.0-12.0 SECONDS Prothromb Time International Ratio 1.1 0.9-1.1 Activated Partial Thromboplast Time 30.2 21.0-31.0 SECONDS Partial Thromboplastin Ratio 1.2 D-Dimer 350 0-500 ug/L FEU Sodium Level 132 136-145 mmol/L Potassium Level 3.8 3.5-5.1 mmol/L Chloride Level 100 98-107 mmol/L Carbon Dioxide Level 28 21-32 mmol/L Anion Gap 4.0 3-11 mmol/L Blood Urea Nitrogen 9 7-18 mg/dl Creatinine 1.01 0.60-1.40 mg/dl Est Creatinine Clear Calc Drug Dose 70.7 ml/min Estimated GFR () 88.8 Estimated GFR (Non- 76.6 BUN/Creatinine Ratio 8.8 10-20 Random Glucose 120 70-99 mg/dl Calcium Level 8.5 8.5-10.1 mg/dl Phosphorus Level 1.7 2.5-4.9 mg/dl Magnesium Level 2.1 1.8-2.4 mg/dl Total Bilirubin 0.7 0.2-1 mg/dl Aspartate Amino Transf (AST/SGOT) 18 15-37 U/L Alanine Aminotransferase (ALT/SGPT) 19 12-78 U/L Alkaline Phosphatase 74 45-117 U/L Total Creatine Kinase 173 39-308 U/L Creatine Kinase MB 1.0 0.5-3.6 ng/ml Creatine Kinase MB Ratio 0.6 0-3.0 Troponin I < 0.015 0-0.045 ng/ml C-Reactive Protein 16.40 0-0.29 mg/dl Pro-B-Type Natriuretic Peptide 1168 0-900 pg/ml Total Protein 6.9 6.4-8.2 gm/dl Albumin 3.3 3.4-5.0 gm/dl Globulin 3.6 2.5-4.0 gm/dl Albumin/Globulin Ratio 0.9 0.9-2 Lipase 47 73-393 U/L Influenza Type A (RT-PCR) Neg for Influ A NEG Influenza Type A Antigen Neg for Influ A NEG Influenza Type B Antigen Neg for Influ B NEG Influenza Type B (RT-PCR) Neg for Influ B NEG Bedside Lactic Acid Venous 0.66 0.90-1.70 mmol/L Test 06/01/17 02:45 06/01/17 06:21 Range/Units Urine Color YELLOW Urine Appearance CLEAR CLEAR Urine pH 6.5 4.5-7.5 Urine Specific [place] 1.005 1.000-1.030 Urine Protein NEG NEG Urine Glucose (UA) NEG NEG Urine Ketones NEG NEG Urine Occult Blood NEG NEG Urine Nitrite NEG NEG Urine Bilirubin NEG NEG Urine Urobilinogen NEG NEG Urine Leukocyte Esterase MODERATE NEG Urine WBC (Auto) 10-30 0-5 /hpf Urine RBC (Auto) 0-4 0-4 /hpf Urine Hyaline Casts (Auto) 0 0-5 /lpf Urine Epithelial Cells (Auto) 10-20 0-5 /lpf Urine Bacteria (Auto) NEG NEG Urine Yeast (Auto) BUD W/ HYPHAE NONE PRSENT White Blood Count 7.22 4.8-10.8 K/uL Red Blood Count 4.51 4.7-6.1 M/uL Hemoglobin 13.2 14.0-18.0 g/dL Hematocrit 40.9 42-52 % Mean Corpuscular Volume 90.7 80-100 fL Mean Corpuscular Hemoglobin 29.3 25-34 pg Mean Corpuscular Hemoglobin Concent 32.3 32-36 g/dl RDW Standard Deviation 50.2 36.4-46.3 fL RDW Coefficient of Variation 15.1 11.5-14.5 % Platelet Count 182 130-400 K/uL Mean Platelet Volume 9.7 7.4-10.4 fL Sodium Level 138 136-145 mmol/L Potassium Level 4.9 3.5-5.1 mmol/L Chloride Level 105 98-107 mmol/L Carbon Dioxide Level 28 21-32 mmol/L Anion Gap 5.0 3-11 mmol/L Blood Urea Nitrogen 9 7-18 mg/dl Creatinine 0.87 0.60-1.40 mg/dl Est Creatinine Clear Calc Drug Dose 82.0 ml/min Estimated GFR () 103.5 Estimated GFR (Non- 89.3 BUN/Creatinine Ratio 9.8 10-20 Random Glucose 150 70-99 mg/dl Calcium Level 8.3 8.5-10.1 mg/dl Phosphorus Level 2.8 2.5-4.9 mg/dl Microbiology Results 05/31/17 Blood Culture, Received Pending 05/31/17 Blood Culture, Received Pending 06/01/17 Gram Stain, Received Pending 06/01/17 Sputum Culture, Received Pending 06/01/17 Urine Culture, Received Pending
[2017-06-01] MEDS: TRAMADOL HCL 50 MG TAB PO PRN ×2 (15:46→23:13)
[2017-06-01] MEDS: CEFTRIAXONE SOD INJ 1 GM in DEXTROSE 5% ADD-VANTAGE 50ML 50 ML IV SCH (20:37)
[2017-06-01] MEDS: ENOXAPARIN 40 MG/0.4 ML SYR SQ SCH (20:39)
[2017-06-01] MEDS: TRAZODONE HCL 50 MG TAB PO SCH (20:40)
[2017-06-01] MEDS: SERTRALINE HCL 100 MG TAB PO SCH (20:41)
[2017-06-02] VITALS (9 sets, daily range): BP systolic 125–144; BP diastolic 76–93; PULSE 79–95; TEMP 36.4–36.8; O2SAT 92–96
[2017-06-02] MEDS: ALBUT/IPRATROP 3MG/0.5MG NEB 3 ML VIAL INH SCH ×4 (01:57→18:47)
[2017-06-02] MEDS: METHYLPREDNISOLONE IV 40 MG in SYRINGE 0 ML IV SCH ×3 (03:00→20:48)
[2017-06-02 06:33] LABS: HEMATOCRIT 38.5 % (42-52); MEAN CELL VOLUME 90.8 fL (80-100); MEAN CORPUSCULAR HEMOGLOBIN 29.5 pg (25-34); MEAN CORPUSCULAR HGB CONC 32.5 g/dl (32-36); MEAN PLATELET VOLUME 9.5 fL (7.4-10.4); PLATELET COUNT 225 K/uL (130-400); RED BLOOD COUNT 4.24 M/uL (4.7-6.1); WHITE BLOOD COUNT 11.17 K/uL (4.8-10.8)
[2017-06-02 06:59] LABS: CALCIUM 9.1 mg/dl (8.5-10.1); CREATININE 0.93 mg/dl (0.60-1.40); POTASSIUM 4.3 mmol/L (3.5-5.1)
[2017-06-02] MEDS: BUDESONIDE/FORMOTEROL FUMARATE 160/4.5 60 PUFFS/INHALER INH SCH ×2 (08:53→20:48)
[2017-06-02] MEDS: PANTOprazole SOD 40 MG TAB PO SCH ×2 (08:54→20:49)
[2017-06-02] MEDS: GUAIFENESIN 600 MG TABCR PO SCH ×2 (08:54→20:51)
[2017-06-02] MEDS: AZITHROMYCIN 250 MG TAB PO SCH (08:54)
[2017-06-02] MEDS: CETIRIZINE HCL 10 MG TAB PO SCH (08:54)
[2017-06-02] MEDS: DOCUSATE SODIUM 100 MG CAP PO SCH (08:54)
[2017-06-02] MEDS: TRAMADOL HCL 50 MG TAB PO PRN ×3 (08:59→21:36)
--- NOTE | 2017-06-02 12:58 | Progress Note ---
Internal Med Progress Note Date of Service: Jun 02, 2017. Provider Documentation: SUBJECTIVE: Seen and examined at bedside Eager to get discharged Cough, SOB is improving per patient B/L wheezing on exam Denies chest pain, abd pain, dizziness OBJECTIVE: Vital Signs-as noted below Physical Exam: General Appearance:Moderately built and nourished, no apparent distress Head: normocephalic, Atraumatic Eyes: normal inspection, EOMI, PERRL Neck: supple, Trachea midline Respiratory/Chest: Decreased breath sounds, B/L expiratory wheezing Cardiovascular: S1, S2, No murmur Abdomen/GI:Soft, Non tender, Bowel sounds present Extremities/Musculoskelatal:normal inspection, no edema Neurologic/Psych:AAOX3, grossly no focal neurological deficits Skin: normal color, warm Lab data as noted below. 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 Aspiration precautions Continue Nebs, Solumedrol, IV Abx Speech Eval Oxygen support Mild leukocytosis likely secondary to steroids Sputum culture:Normal mary kate Blood culture:No growth Titrate oxygen to keep Sats > 88% Hypophosphatemia: Resolved monitor GERD continue PPI DEPRESSION / PTSD continue buspirone, sertraline, and trazodone DVT Px: SQ Lovenox Disposition: Expect to discharge home when stable Vital Signs: Date Time Temp Pulse Resp B/P (MAP) Pulse Ox O2 Delivery O2 Flow Rate FiO2 06/02/17 08:00 Nasal Cannula 4.0 06/02/17 07:40 36.4 89 18 125/76 (92) 94 06/02/17 06:52 79 17 92 Nasal Cannula 4.0 06/02/17 01:58 91 17 93 Nasal Cannula 4.0 06/02/17 00:01 36.6 86 20 135/77 (96) 94 Room Air 06/02/17 00:00 Nasal Cannula 4.0 06/01/17 18:59 90 17 94 Nasal Cannula 4.0 06/01/17 16:00 92 Nasal Cannula 3.0 06/01/17 15:08 36.6 91 20 133/75 (94) 92 3.0 06/01/17 14:18 85 16 93 Nasal Cannula 4.0 Lab Results: Results Past 24 Hours Test 06/02/17 05:45 Range/Units White Blood Count 11.17 4.8-10.8 K/uL Red Blood Count 4.24 4.7-6.1 M/uL Hemoglobin 12.5 14.0-18.0 g/dL Hematocrit 38.5 42-52 % Mean Corpuscular Volume 90.8 80-100 fL Mean Corpuscular Hemoglobin 29.5 25-34 pg Mean Corpuscular Hemoglobin Concent 32.5 32-36 g/dl RDW Standard Deviation 50.5 36.4-46.3 fL RDW Coefficient of Variation 15.4 11.5-14.5 % Platelet Count 225 130-400 K/uL Mean Platelet Volume 9.5 7.4-10.4 fL Sodium Level 136 136-145 mmol/L Potassium Level 4.3 3.5-5.1 mmol/L Chloride Level 103 98-107 mmol/L Carbon Dioxide Level 28 21-32 mmol/L Anion Gap 5.0 3-11 mmol/L Blood Urea Nitrogen 12 7-18 mg/dl Creatinine 0.93 0.60-1.40 mg/dl Est Creatinine Clear Calc Drug Dose 76.8 ml/min Estimated GFR () 98.1 Estimated GFR (Non- 84.6 BUN/Creatinine Ratio 13.0 10-20 Random Glucose 154 70-99 mg/dl Calcium Level 9.1 8.5-10.1 mg/dl
[2017-06-02] MEDS: CEFTRIAXONE SOD INJ 1 GM in DEXTROSE 5% ADD-VANTAGE 50ML 50 ML IV SCH (20:48)
[2017-06-02] MEDS: ENOXAPARIN 40 MG/0.4 ML SYR SQ SCH (20:49)
[2017-06-02] MEDS: SERTRALINE HCL 100 MG TAB PO SCH (20:50)
[2017-06-02] MEDS: TRAZODONE HCL 50 MG TAB PO SCH (20:51)
[2017-06-03] MEDS: ALBUT/IPRATROP 3MG/0.5MG NEB 3 ML VIAL INH SCH ×4 (01:55→18:52)
[2017-06-03 01:56] VITALS: PULSE 80; O2SAT 95
[2017-06-03] MEDS: TRAMADOL HCL 50 MG TAB PO PRN ×4 (03:21→23:51)
[2017-06-03] MEDS: METHYLPREDNISOLONE IV 40 MG in SYRINGE 0 ML IV SCH (03:21)
[2017-06-03 06:53] VITALS: BP 160/92; PULSE 97; TEMP 36.8; O2SAT 91
[2017-06-03 07:11] VITALS: PULSE 88; O2SAT 93
[2017-06-03 07:24] LABS: CREATININE 0.89 mg/dl (0.60-1.40)
[2017-06-03] MEDS: CETIRIZINE HCL 10 MG TAB PO SCH (07:41)
[2017-06-03] MEDS: DOCUSATE SODIUM 100 MG CAP PO SCH (07:41)
[2017-06-03] MEDS: GUAIFENESIN 600 MG TABCR PO SCH ×2 (07:41→20:49)
[2017-06-03] MEDS: AZITHROMYCIN 250 MG TAB PO SCH (07:42)
[2017-06-03] MEDS: PANTOprazole SOD 40 MG TAB PO SCH ×2 (07:42→20:49)
[2017-06-03] MEDS: BUDESONIDE/FORMOTEROL FUMARATE 160/4.5 60 PUFFS/INHALER INH SCH ×2 (07:42→20:48)
--- NOTE | 2017-06-03 12:14 | Progress Note ---
Internal Med Progress Note Date of Service: Jun 03, 2017. Provider Documentation: SUBJECTIVE: Seen and examined at bedside Feels better Eager to get discharged Cough, SOB improving Denies chest pain, abd pain, dizziness No new complaints Oxygen being titrated OBJECTIVE: Vital Signs-as noted below Physical Exam: General Appearance:Moderately built and nourished, no apparent distress Head: normocephalic, Atraumatic Eyes: normal inspection, EOMI, PERRL Neck: supple, Trachea midline Respiratory/Chest: Decreased breath sounds, CTA Cardiovascular: S1, S2, No murmur Abdomen/GI:Soft, Non tender, Bowel sounds present Extremities/Musculoskelatal:normal inspection, no edema Neurologic/Psych:AAOX3, grossly no focal neurological deficits Skin: normal color, warm Lab data as noted below. 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 Aspiration precautions Continue Nebs, Solumedrol, IV Abx Will decrease solumedrol to BID today and daily starting tomorrow Speech Eval Oxygen support Mild leukocytosis likely secondary to steroids Sputum culture:Normal mary kate Blood culture:No growth Titrate oxygen to keep Sats > 88% Hypophosphatemia: Resolved monitor GERD continue PPI DEPRESSION / PTSD continue buspirone, sertraline, and trazodone DVT Px: SQ Lovenox Disposition: Expect to discharge home when stable Vital Signs: Date Time Temp Pulse Resp B/P (MAP) Pulse Ox O2 Delivery O2 Flow Rate FiO2 06/03/17 08:00 Nasal Cannula 3.0 06/03/17 07:11 88 16 93 Nasal Cannula 2.0 06/03/17 06:53 36.8 97 18 160/92 (114) 91 06/03/17 01:56 80 16 95 Nasal Cannula 3.0 06/03/17 00:00 Nasal Cannula 3.0 06/02/17 22:58 36.8 83 20 129/93 (105) 93 2.0 06/02/17 18:48 86 17 96 Nasal Cannula 3.0 06/02/17 16:00 94 Nasal Cannula 3.0 06/02/17 15:46 36.7 95 18 144/82 (102) 94 Nasal Cannula 3.0 06/02/17 14:24 87 17 94 Nasal Cannula 3.0 Lab Results: Results Past 24 Hours Test 06/03/17 06:22 Range/Units Creatinine 0.89 0.60-1.40 mg/dl Est Creatinine Clear Calc Drug Dose 80.2 ml/min Estimated GFR () 102.5 Estimated GFR (Non- 88.5
[2017-06-03 14:21] VITALS: PULSE 84; O2SAT 93
[2017-06-03 15:21] VITALS: BP 108/69; PULSE 99; TEMP 36.9; O2SAT 92
[2017-06-03] MEDS ORDERED: METHYLPREDNISOLONE IV 40 MG in SYRINGE 0 ML IV ONE (18:00)
[2017-06-03 18:54] VITALS: PULSE 89; O2SAT 92
[2017-06-03] MEDS: CEFTRIAXONE SOD INJ 1 GM in DEXTROSE 5% ADD-VANTAGE 50ML 50 ML IV SCH (20:48)
[2017-06-03] MEDS: ENOXAPARIN 40 MG/0.4 ML SYR SQ SCH (20:50)
[2017-06-03] MEDS: TRAZODONE HCL 50 MG TAB PO SCH (20:51)
[2017-06-03] MEDS: SERTRALINE HCL 100 MG TAB PO SCH (20:51)
[2017-06-04 00:10] VITALS: BP 116/74; PULSE 79; TEMP 36.6; O2SAT 91
[2017-06-04] MEDS: ALBUT/IPRATROP 3MG/0.5MG NEB 3 ML VIAL INH SCH ×3 (02:26→14:12)
[2017-06-04 06:49] LABS: HEMATOCRIT 43.7 % (42-52); MEAN CORPUSCULAR HEMOGLOBIN 29.2 pg (25-34); MEAN PLATELET VOLUME 9.4 fL (7.4-10.4); PLATELET COUNT 228 K/uL (130-400)
[2017-06-04 07:10] VITALS: PULSE 73; O2SAT 96
[2017-06-04 07:21] LABS: BUN/CREATININE RATIO 18.5 (10-20); CALCIUM 9.3 mg/dl (8.5-10.1); POTASSIUM 3.9 mmol/L (3.5-5.1)
[2017-06-04] MEDS: BUDESONIDE/FORMOTEROL FUMARATE 160/4.5 60 PUFFS/INHALER INH SCH (07:51)
[2017-06-04] MEDS: AZITHROMYCIN 250 MG TAB PO SCH (07:52)
[2017-06-04] MEDS: PANTOprazole SOD 40 MG TAB PO SCH (07:52)
[2017-06-04] MEDS: DOCUSATE SODIUM 100 MG CAP PO SCH (07:52)
[2017-06-04] MEDS: CETIRIZINE HCL 10 MG TAB PO SCH (07:52)
[2017-06-04] MEDS: GUAIFENESIN 600 MG TABCR PO SCH (07:52)
[2017-06-04] MEDS ORDERED: METHYLPREDNISOLONE IV 40 MG in SYRINGE 0 ML IV SCH (08:00)
[2017-06-04 08:29] VITALS: BP 137/84; PULSE 78; TEMP 36.7; O2SAT 92
[2017-06-04] MEDS ORDERED: METHYLPREDNISOLONE 4 MG TAB PO SCH ×2 (13:00→21:00)
[2017-06-04] MEDS ORDERED: METHYLPREDNISOLONE 4MG TAB, 6 DAY TAPER PO SCH (13:30)
[2017-06-04 14:12] VITALS: PULSE 78; O2SAT 93
[2017-06-04 15:29] VITALS: BP 132/84; PULSE 86; TEMP 36.7; O2SAT 91
[2017-06-04] MEDS ORDERED: LEVO500T19 PO (16:12)
[2017-06-04] MEDS ORDERED: METH4PAK PO (16:12)
--- NOTE | 2017-06-04 16:17 | Discharge Instructions ---
Discharge Instructions Date of Service Jun 04, 2017. Admission Reason for Admission: Copd Exacerbation Discharge Discharge Diagnosis / Problem: COPD Exacerbation, pneumonia Discharge Goals Goal(s): Therapeutic intervention Activity Recommendations Activity Limitations: as noted below Lifting Limitations: gradually increase as tolerated Exercise/Sports Limitations: gradually increase as tolerated . Instructions / Follow-Up Instructions / Follow-Up Please call the [place] clinic to obtain a follow up appointment with your Primary care physician and also with your Potato Pancake Frier. Please see your Primary care physician within the next 5-7 days Current Hospital Diet Patient's current hospital diet: Regular Diet Discharge Diet Recommended Diet: Regular Diet Pending Studies Studies pending at discharge: no Medical Emergencies . Who to Call and When: Medical Emergencies: If at any time you feel your situation is an emergency, please call 911 immediately. . Non-Emergent Contact Non-Emergency issues call your: Primary Care Provider, Potato Pancake Frier . . "Provider Documentation" section prepared by Becki Calles. . VTE Core Measure Inpt VTE Proph given/why not?: Enoxaparin (Lovenox)SQ
[2017-06-04 16:20] VITALS: BP 132/84; PULSE 86; TEMP 36.7; O2SAT 91
--- NOTE | 2017-06-04 16:50 | Discharge Summary ---
Discharge Summary Date of Service Jun 04, 2017. Discharge Summary Admission Date: May 31, 2017 at 17:17 Discharge Date: Jun 04, 2017 Discharge Disposition: Home with services Principal Diagnosis: COPD exacerbation, hypoxic respiratory failure, community acquired pneumonia Pending Studies/Follow-Up: Pulmonary follow up Medication Reconciliation New Medications: Levofloxacin (Levaquin) 500 Mg Tab 1 TAB PO DAILY for 4 Days, #4 TAB Methylprednisolone (Medrol Dosepak) 4 Mg Wilman 1 PKT PO UD for 6 Days, #1 PKT Continued Medications: Albuterol Hfa (Ventolin Hfa) 200 Puffs/84831 Mcg Aers 2-4 PUFFS INH Q6H PRN for ASTHMA Albuterol Sulf (Proventil 0.083% 2.5MG/3ML) 2.5 Mg/3 Ml Nebu 2.5 MG INH QID PRN for SOB/Wheezing Budesonide/Formoterol Fumarate (Symbicort 160/4.5 Inhaler ) Aero 2 PUFF INH BID, 0 Refills Buspirone Hcl (Buspirone Hcl) 5 Mg Tab 5 MG PO HS Cetirizine (Zyrtec) 10 Mg Tab 10 MG PO DAILY, TAB Docusate Sodium (Colace) 100 Mg Cap 100 MG PO DAILY Epinephrine (Epipen 2-Wilman) 0.3 Mg Inj 0.3 MG IM UD PRN for ALLERGIC REACTION Guaifenesin Ext Rel (Mucinex Ext Rel) 600 Mg Tabcr 600 MG PO Q12 for 7 Days, #14 TAB Omeprazole (Prilosec) 20 Mg Cap 20 MG PO BID, CAP Sertraline Hcl (Zoloft) 100 Mg Tab 200 MG PO HS, TAB Tiotropium [place] (Spiriva Handihaler) 30 Puff/540 Mcg Aerp 1 CAP INH DAILY Tramadol HCl (Tramadol HCl) 50 Mg Tab 50 MG PO Q6H PRN for Pain, #30 TAB Trazodone HCl (Trazodone HCl) 150 Mg Tab 150 MG PO HS Admission Information HPI (per Admitting provider): 67 year old male who presents to the ED with shortness of breath. Patient reports his symptoms began two days ago. He reports increasing shortness of breath with exertion as well as at rest. He has had a cough productive for green and yellow sputum. He denies fever and chills. Patient reports he was on oxygen in the past however weaned himself off of it. He follows with a rubber compounder supervisor at the [facility]. He checked his oxygen saturations at home today and reports they were in the 60s. He then came to the ED for further evaluation. He denies chest pain and palpitations. No lightheadedness or dizziness. He denies abdominal pain, nausea, vomiting, or diarrhea. No urinary symptoms. In the ED, patient was saturating 84% on 3L via NC. Saturations improved with neb treatment and oxygen 5L via mask. CXR shows right mid lung pneumonia. He was given IV Levaquin. Physical Exam (per Admitting): General Appearance: WD/WN, no apparent distress Head: normocephalic, atraumatic Eyes: normal inspection, EOMI, sclerae normal ENT: hearing grossly normal, + pertinent finding (mucous membranes moist) Neck: supple, no JVD, trachea midline Respiratory/Chest: no respiratory distress (able to speak in full sentences) , + decreased breath sounds, + wheezing (faint, end expiratory wheezing scattered throughout all lung cisneros) Cardiovascular: regular rate, rhythm, no edema, normal peripheral pulses Abdomen/GI: normal bowel sounds, non tender, soft, no organomegaly Extremities/Musculoskelatal: normal inspection, no calf tenderness, normal capillary refill Neurologic/Psych: no motor/sensory deficits, alert, normal mood/affect, oriented x 3 Skin: warm/dry, + pertinent finding (scattered bruising and abrasions noted to BLUE in various stages of healing) Hospital Course ACUTE ON CHRONIC HYPOXIC RESPIRATORY FAILURE: secondary to COPD EXACERBATION and CAP -chronically on Oxygen: 3L at bedtime -Has Intolerance to Prednisone; hence the patient was given PO methylprednisolone as a trial and tolerated it without difficulty -CXR suggestive of RML pneumonia -follows with rubber compounder supervisor at [facility] -aspiration precautions -continue nebs, steroids, IV Abx -tapering steroids as tolerated -Speech Eval, no restrictions -Sputum culture:Normal mary kate -Blood culture:No growth -Titrate oxygen to keep Sats > 88% HYPOPHOSPHATEMIA: -resolved -monitor GERD: -continue PPI DEPRESSION/PTSD: -continue buspirone, sertraline, and trazodone DVT Px: SQ Lovenox PHYSICAL EXAM ON DAY OF DISCHARGE: GENERAL: Patient is in no acute distress. HEENT: No acute trauma, normocephalic, mucous membranes moist, no nasal congestion, no scleral icterus. NECK: No stridor, trachea is midline. LUNGS: Diminished bilaterally, no wheeze, no rhonchi, breath sounds equal. HEART: Without murmurs gallops or rubs, regular rate and rhythm. ABDOMEN: Soft, nontender, bowel sounds positive. EXTREMITIES: No cyanosis or edema, intact range of motion of the extremities NEUROLOGIC: Oriented x 3, no acute motor or sensory deficits, no focal weakness. SKIN: No rash, no jaundice, no diaphoresis. Total time spent on discharge = 37 This includes examination of the patient, discharge planning, medication reconciliation, and communication with other providers. Discharge Instructions see patient instructions
[2017-06-05] MEDS ORDERED: METHYLPREDNISOLONE 4 MG TAB PO SCH ×2 (07:00→22:00)
[2017-06-06] MEDS ORDERED: METHYLPREDNISOLONE 4 MG TAB PO SCH (07:00)
[2017-06-07] MEDS ORDERED: METHYLPREDNISOLONE 4 MG TAB PO SCH (07:00)
[2017-06-08] MEDS ORDERED: METHYLPREDNISOLONE 4 MG TAB PO SCH (07:00)
[2017-06-09] MEDS ORDERED: METHYLPREDNISOLONE 4 MG TAB PO SCH (07:00)
== END 2017-06-04 16:40 | disposition home or self-care (01) | DRG 189 ==
LOC: C.EDB 14:50 → C.MED 17:17 → ENRESERV 17:33 → C.MS4W 06-01 07:45
PROVIDERS: ADMIT Internal Medicine; ATTEND Internal Medicine
DX: J96.21 Acute and chronic respiratory failure with hypoxia (principal); J44.0 Chronic obstructive pulmonary disease with (acute) lower respiratory infection; J44.1 Chronic obstructive pulmonary disease with (acute) exacerbation; J18.9 Pneumonia, unspecified organism; F32.9 Major depressive disorder, single episode, unspecified; I77.6 Arteritis, unspecified; Z87.891 Personal history of nicotine dependence; E83.39 Other disorders of phosphorus metabolism; K21.9 Gastro-esophageal reflux disease without esophagitis; F43.10 Post-traumatic stress disorder, unspecified; Z99.81 Dependence on supplemental oxygen

== ENCOUNTER 2017-10-26 17:04 | Inpatient (IN) | payer OTHER ==
[~2017-10-26] VITALS: Ht 180.3 cm; Wt 86.0 kg
[~2017-10-26 17:04] MED LIST changes: +ALBINS/ INH; -ALBU0.08 INH; -ALBUAER2 INH; +CETI10TA84 PO; -CLC100X PO; +DOCU-94 PO; +DSY/150 PO; -LVQ500 PO; +SPRIN/30 INH; -TIOTCAP INH; -TRAZ150T64 PO; +VNTHFA/IN INH
[2017-10-26] MEDS ORDERED: METHYLPREDNISOLONE 125 MG VIAL IV STA (17:16)
[2017-10-26] MEDS ORDERED: ALBUT/IPRATROP 3MG/0.5MG NEB 3 ML VIAL INH STA ×3 (17:16→18:40)
--- NOTE | 2017-10-26 17:20 | EMERGENCY ROOM VISIT NOTE ---
History Report prepared by Georgi: Keven Mclaughlin Under the Supervision of: Dr. Elkin Montilla M.D. First contact with patient: 17:11 Chief Complaint: CHEST PAIN Stated Complaint: CHEST PAIN, SOB History of Present Illness The patient is a 67 year old male who presents to the Emergency Room with complaints of constant right sided chest pain that began two days ago. He rates his pain as an 8/10 in severity. The patient states he was walking to the mailbox when suddenly developed right sided chest pain. He reports the chest pain has been dull with intermittent episodes of a sharp sensation. The patient states he has also been short of breath. He denies recent travel, surgery, trauma, coughing up blood, and hormone pill use. The patient reports a history of COPD, which he occasionally wears oxygen for. He reports his last oxygen use was three weeks ago. The patient also reports a history of pneumonia. He reports whenever he takes Prednisone he "goes absolutely crazy". He states he has taken Solu-Medrol in the past without any complications. Source of History: patient Onset: two days ago Position: chest (right) Symptom Intensity: 8/10 Quality: sharp, dull Timing: constant Associated Symptoms: + SOB Note: Denies coughing up blood Review of Systems See HPI for pertinent positives and negatives. A total of ten systems were reviewed and were otherwise negative. 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 (4) PTSD (post-traumatic stress disorder) (5) Respiratory failure, acute Surgical Problems: (1) H/O hernia repair (2) S/P arthroscopic surgery of right knee Family History FH: colon cancer MOTHER FH: kidney cancer FATHER Heart disease Uncle Social History Smoking Status: Former Smoker Alcohol Use: none Housing Status: unknown Current/Historical Medications Scheduled Budesonide/Formoterol Fumarate (Symbicort 160/4.5 Inhaler ), 2 PUFF INH BID Buspirone Hcl (Buspirone Hcl), 5 MG PO HS Cetirizine (Zyrtec), 10 MG PO DAILY Docusate Sodium (Colace), 100 MG PO DAILY Guaifenesin La (Guaifenesin Er), 1,200 MG PO Q12H Omeprazole (Prilosec), 20 MG PO BID Sertraline Hcl (Zoloft), 200 MG PO HS Tiotropium [place] (Spiriva Handihaler), 1 CAP INH DAILY Trazodone HCl (Trazodone HCl), 150 MG PO HS Scheduled PRN Albuterol Hfa (Ventolin Hfa), 2-4 PUFFS INH Q6H PRN for ASTHMA Albuterol Sulf (Proventil 0.083% 2.5MG/3ML), 2.5 MG INH QID PRN for SOB/Wheezing Epinephrine (Epipen 2-Wilman), 0.3 MG IM UD PRN for ALLERGIC REACTION Tramadol (Ultram), 50 MG PO Q6H PRN for Pain Allergies Coded Allergies: Pneumococcal Vaccine (Verified Allergy, Severe, SWELLING, 05/31/17) Prednisone (Verified Allergy, Severe, confusion and agitation, 05/31/17) Amoxicillin (Verified Allergy, Intermediate, FACIAL SWELLING (EYES SWELLED SHUT), 05/31/17) SPOKE W/ PATIENT REGARDING ALLERGYON 10/09/11--> FACIAL SWELLING, EYES SWELLED SHUT WITH SUGMENTIN. PATIENT HAS TOLERATED ROCEPHIN IV IN PAST. Clavulanic Acid (Verified Allergy, Intermediate, FACIAL SWELLING (EYES SWELLED SHUT), 05/31/17) SEE COMMENT UNDER AMOXICILLIN BEE STING (Unverified Allergy, Unknown, ANAPHYLAXIS, 05/31/17) Statins (Verified Allergy, Unknown, UNKNOWN, 05/31/17) Physical Exam Vital Signs Date Time Temp Pulse Resp B/P (MAP) Pulse Ox O2 Delivery O2 Flow Rate FiO2 10/26/17 20:19 96 20 121/76 92 Nasal Cannula 2.5 10/26/17 18:50 84 22 130/76 92 Nasal Cannula 2.5 10/26/17 17:51 93 Nasal Cannula 2.5 10/26/17 17:49 67 20 129/83 99 Nebulizer 10/26/17 17:32 93 Nasal Cannula 2.5 10/26/17 17:32 93 Nasal Cannula 2.5 10/26/17 17:24 74 10/26/17 17:06 37.0 86 18 129/58 87 Room Air Physical Exam Physical Exam GENERAL: He is oriented to person, place, and time. He appears well-developed and well-nourished. He does not appear distressed. ____ HENT: Exam performed. Head: Normocephalic and atraumatic. Right Ear: External ear normal. No mastoid tenderness. Left Ear: External ear normal. No mastoid tenderness. Mouth/Throat: The oropharynx is clear and moist. No trismus in the jaw. No dental abscesses or uvula swelling. No oropharyngeal exudate or tonsillar abscesses. ____ EYES: Conjunctivae and EOM are normal. Pupils are equal, round, and reactive to light. Right eye exhibits no discharge. Left eye exhibits no discharge. No scleral icterus. ____ NECK: Normal range of motion. Neck supple. No JVD present. No spinous process tenderness present. No carotid bruit present. No rigidity. No tracheal deviation and normal range of motion present. No Brudzinski's sign and no Kernig 's sign noted. ____ CV: Normal rate, regular rhythm, normal heart sounds and intact distal pulses. There is no peripheral edema. Palpable radial pulses bue. ____ PULM/CHEST: Effort normal and breath sounds normal. No respiratory distress. No stridor. He has bilateral expiratory wheezes. He has no rales. Chest Wall: He exhibits no tenderness. ____ ABD: The abdomen is soft. Bowel sounds are normal. He has no distension. No mass is present. There is no tenderness. There is no rebound, no guarding, no Wilde's sign and no tenderness at McBurney's point. Rovsig negative MUSC/SKEL: Normal range of motion. There is no peripheral edema, tenderness or deformity. LYMPH: No cervical adenopathy. ____ NEURO: He is alert and oriented to person, place, and time. He has normal strength. No cranial nerve deficit or sensory deficit. Coordination and gait normal. GCS eye subscore is 4. GCS verbal subscore is 5. GCS motor subscore is 6. Cerebellar tests wnl. ____ SKIN: Skin is warm and dry. He is not diaphoretic. ____ PSYCH: He has a normal mood and affect. His behavior is normal. Judgment and thought content normal. ____ Medical Decision & Procedures ER Provider Diagnostic Interpretation: X-ray: Per my interpretation, radiologist review. CHEST 2 VIEWS ROUTINE CLINICAL HISTORY: COPD. Cough. Chest pain. COMPARISON STUDY: 05/31/2017 FINDINGS: The heart is normal in size. There is radiographic evidence of emphysema. There is been partial clearing of the right midlung zone airspace opacity. There are subtle left infrahilar airspace opacities, statistically infectious/inflammatory. Radiographic follow-up is recommended. There are no pleural effusions. There is no failure. IMPRESSION: 1. Emphysema 2. Partial clearing of the right midlung zone airspace opacities 3. Subtle left infrahilar airspace opacities statistically infectious/inflammatory. Radiographic follow-up is recommended Electronically signed by: Herman Thornton M.D. 10/26/2017 6:34 PM Dictated Date/Time: 10/26/2017 6:32 PM Laboratory Results 10/26/17 17:40 Red Blood Count 4.39, Mean Corpuscular Volume 88.2, Mean Corpuscular Hemoglobin 29.6, Mean Corpuscular Hemoglobin Concent 33.6, Mean Platelet Volume 8.9, Neutrophils (%) (Auto) 66.7, Lymphocytes (%) (Auto) 16.8, Monocytes (%) (Auto) 15.1, Eosinophils (%) (Auto) 0.7, Basophils (%) (Auto) 0.6, Neutrophils # (Auto ) 4.73, Lymphocytes # (Auto) 1.19, Monocytes # (Auto) 1.07, Eosinophils # (Auto ) 0.05, Basophils # (Auto) 0.04 10/26/17 17:40 Test 10/26/17 17:40 10/26/17 20:06 White Blood Count 7.09 K/uL (4.8-10.8) Red Blood Count 4.39 M/uL (4.7-6.1) Hemoglobin 13.0 g/dL (14.0-18.0) Hematocrit 38.7 % (42-52) Mean Corpuscular Volume 88.2 fL (80-100) Mean Corpuscular Hemoglobin 29.6 pg (25-34) Mean Corpuscular Hemoglobin Concent 33.6 g/dl (32-36) Platelet Count 168 K/uL (130-400) Mean Platelet Volume 8.9 fL (7.4-10.4) Neutrophils (%) (Auto) 66.7 % Lymphocytes (%) (Auto) 16.8 % Monocytes (%) (Auto) 15.1 % Eosinophils (%) (Auto) 0.7 % Basophils (%) (Auto) 0.6 % Neutrophils # (Auto) 4.73 K/uL (1.4-6.5) Lymphocytes # (Auto) 1.19 K/uL (1.2-3.4) Monocytes # (Auto) 1.07 K/uL (0.11-0.59) Eosinophils # (Auto) 0.05 K/uL (0-0.5) Basophils # (Auto) 0.04 K/uL (0-0.2) RDW Standard Deviation 46.9 fL (36.4-46.3) RDW Coefficient of Variation 14.4 % (11.5-14.5) Immature Granulocyte % (Auto) 0.1 % Immature Granulocyte # (Auto) 0.01 K/uL (0.00-0.02) Activated Partial Thromboplast Time 28.9 SECONDS (21.0-31.0) Partial Thromboplastin Ratio 1.1 Anion Gap 3.0 mmol/L (3-11) Est Creatinine Clear Calc Drug Dose 71.2 ml/min Estimated GFR () 85.7 Estimated GFR (Non- 73.9 BUN/Creatinine Ratio 8.4 (10-20) Calcium Level 8.4 mg/dl (8.5-10.1) Magnesium Level 2.1 mg/dl (1.8-2.4) Troponin I < 0.015 ng/ml (0-0.045) Pro-B-Type Natriuretic Peptide 716 pg/ml (0-900) Thyroid Stimulating Hormone (TSH) 1.310 uIu/ml (0.300-4.500) Arterial Blood pH 7.45 (7.35-7.45) Arterial Blood Partial Pressure CO2 42 mmHg (35-46) Arterial Blood Partial Pressure O2 56 mm/Hg (80-95) Arterial Blood HCO3 28 mmol/L (19-24) Arterial Blood Oxygen Saturation 88.4 % (90-95) Arterial Blood Base Excess 3.7 mEq/L (-9-1.8) Arterial Blood Gas Delivery 3L O2 Wyatt Test POS (POS) Laboratory results reviewed by me Medications Administered Medications (Trade) Dose Ordered Sig/Oren Route Start Time Stop Time Status Last Admin Dose Admin Methylprednisolone Sodium Succinate (Solu-Medrol IV) 125 mg NOW STAT IV 10/26/17 17:16 10/26/17 17:19 DC 10/26/17 17:47 125 MG Albuterol/ Ipratropium (Duoneb) 3 ml NOW STAT INH 10/26/17 17:16 10/26/17 17:19 DC 10/26/17 17:46 3 ML Albuterol/ Ipratropium (Duoneb) 3 ml NOW STAT INH 10/26/17 18:23 10/26/17 18:25 DC 10/26/17 18:25 3 ML Albuterol/ Ipratropium (Duoneb) 3 ml NOW STAT INH 10/26/17 18:40 10/26/17 18:43 DC 10/26/17 18:51 3 ML Azithromycin (Zithromax Tab) 500 mg NOW ONCE PO 10/26/17 18:45 10/26/17 18:46 DC 10/26/17 18:51 500 MG ECG Per My Interpretation Indication: chest pain Rate (beats per minute): 87 Rhythm: sinus rhythm Findings: other (MI QRS and QTC WNL. No ST elevation or depression.) ED Course 1713: The patient was evaluated in room B11A. A complete history and physical exam was performed. 1716: Ordered Duoneb 3 ml INH, Solu-Medrol 125 mg IV. 1823: Ordered Duoneb 3 ml INH. 1824: I reevaluated the patient. He feels better after breathing treatment. His oxygen saturation is 92 on 2 L of oxygen. He is still experiencing expiratory wheezes on reexamination. 1840: Ordered Duoneb 3 ml INH. 1845: Ordered Azithromycin 500 mg PO. 1855: Labs within normal limits. Patient still wheezing status post 3 duo nebs. Chest x-ray shows possible infiltrate, given the patient's long history of COPD and recurrent pneumonias as well as his symptoms we will treat with azithromycin. I reevaluated the patient and updated him on his results. I told him he will need to come in for COPD exacerbation.I discussed the patients case with Dr. Roldan, [facility] Hospitalist. He understands the patients condition and agrees to accept the patient. The patient will be further evaluated. Medical Decision 1713: The patient was evaluated in room B11A. A complete history and physical exam was performed. 1716: Ordered Duoneb 3 ml INH, Solu-Medrol 125 mg IV. 1822: Ordered Duoneb 3 ml INH. 182: I reevaluated the patient. He feels better after breathing treatment. His oxygen saturation is 92 on 2 L of oxygen. He is still experiencing expiratory wheezes on reexamination. 184: Ordered Duoneb 3 ml INH. 184: Ordered Azithromycin 500 mg PO. 185: Labs within normal limits. Patient still wheezing status post 3 duo nebs. Chest x-ray shows possible infiltrate, given the patient's long history of COPD and recurrent pneumonias as well as his symptoms we will treat with azithromycin. I reevaluated the patient and updated him on his results. I told him he will need to come in for COPD exacerbation.[facility] the patients condition and agrees to accept the patient. The patient will be further evaluated. Medication Reconcilliation Current Medication List: was personally reviewed by me Blood Pressure Screening Patient's blood pressure: Normal blood pressure Consults Time Called: 1854 [facility]ing Phys[facility] Returned Call: [phone] I discussed the patients case [facility] He understands the patients condition and agrees to accept the patient. The patient will be further evaluated. Impression Primary Impression: Hypoxia Additional Impressions: COPD exacerbation Bronchitis Scribe Attestation The scribe's documentation has been prepared under my direction and personally reviewed by me in its entirety. I confirm that the note above accurately reflects all work, treatment, procedures, and medical decision making performed by me. The chart was completed utilizing [employer] Speech voice recognition software. Grammatical errors, random word insertions, pronoun errors, and incomplete sentences are an occasional consequence of this system due to software limitations, ambient noise, and hardware issues. Any formal questions or concerns about the content, text, or information contained within the body of this dictation should be directly addressed to the physician for clarification. Departure Information Dispostion Being Evaluated By Hospitalist Referrals No Doctor, Assigned (PCP) Patient Instructions [facility] Problem Qualifiers
[2017-10-26 17:54] LABS: BASO % 0.6 %; BASO ABS # 0.04 K/uL (0-0.2); EOS % 0.7 %; EOS ABS # 0.05 K/uL (0-0.5); HEMATOCRIT 38.7 % (42-52); IG# 0.01 K/uL (0.00-0.02); LYMPH % 16.8 %; LYMPH ABS # 1.19 K/uL (1.2-3.4); MEAN CELL VOLUME 88.2 fL (80-100); MEAN CORPUSCULAR HEMOGLOBIN 29.6 pg (25-34); MEAN CORPUSCULAR HGB CONC 33.6 g/dl (32-36); MEAN PLATELET VOLUME 8.9 fL (7.4-10.4); MONO % 15.1 %; MONO ABS # 1.07 K/uL (0.11-0.59); NEUT % 66.7 %; NEUT ABS # 4.73 K/uL (1.4-6.5); PLATELET COUNT 168 K/uL (130-400); RED CELL DISTRIBUTION WIDTH CV 14.4 % (11.5-14.5); RED CELL DISTRIBUTION WIDTH SD 46.9 fL (36.4-46.3); WHITE BLOOD COUNT 7.09 K/uL (4.8-10.8)
[2017-10-26 18:15] LABS: BLOOD UREA NITROGEN 9 mg/dl (7-18); CALCIUM 8.4 mg/dl (8.5-10.1); CARBON DIOXIDE 31 mmol/L (21-32); CREATININE 1.04 mg/dl (0.60-1.40); GLUCOSE 87 mg/dl (70-99); SODIUM 137 mmol/L (136-145)
--- NOTE | 2017-10-26 18:35 | DIAGNOSTIC IMAGING REPORT ---
CHEST 2 VIEWS ROUTINE CLINICAL HISTORY: COPD. Cough. Chest pain. COMPARISON STUDY: 05/31/2017 FINDINGS: The heart is normal in size. There is radiographic evidence of emphysema. There is been partial clearing of the right midlung zone airspace opacity. There are subtle left infrahilar airspace opacities, statistically infectious/inflammatory. Radiographic follow-up is recommended. There are no pleural effusions. There is no failure. IMPRESSION: 1. Emphysema 2. Partial clearing of the right midlung zone airspace opacities 3. Subtle left infrahilar airspace opacities statistically infectious/inflammatory. Radiographic follow-up is recommended Electronically signed by: Herman Thornton M.D. 10/26/2017 6:34 PM Dictated Date/Time: 10/26/2017 6:32 PM
[2017-10-26] MEDS ORDERED: AZITHROMYCIN 250 MG TAB PO ONE (18:45)
[2017-10-26] MEDS ORDERED: GUAI1TAB75 PO (19:53)
[2017-10-26] MEDS ORDERED: TRAM-10 PO (19:54)
[2017-10-26] MEDS ORDERED: TRAMADOL HCL 50 MG TAB PO ONE (19:59)
[2017-10-26] MEDS ORDERED: TRAMADOL HCL 50 MG TAB PO PRN (20:00)
[2017-10-26 20:01] LABS: PTT PATIENT 28.9 SECONDS (21.0-31.0)
[2017-10-26] MEDS ORDERED: OPTIRAY 320 IV PRN (20:15)
[2017-10-26] MEDS ORDERED: SODIUM CHLORIDE 0.9% 1000ML 1,000 ML IV ONE (20:30)
[2017-10-26] MEDS ORDERED: ACETAMINOPHEN 325 MG TAB PO PRN (20:30)
[2017-10-26] MEDS ORDERED: PROCHLORPERAZINE INJ 5 MG in SYRINGE 4 ML IV PRN (20:30)
[2017-10-26] MEDS ORDERED: LEVALBUTEROL/IPRATROPIUM NEB INH PRN (20:30)
[2017-10-26 20:42] LABS: ALBUMIN 3.4 gm/dl (3.4-5.0); TOTAL PROTEIN 6.9 gm/dl (6.4-8.2)
[2017-10-26] MEDS ORDERED: LEVALBUTEROL/IPRATROPIUM NEB INH SCH (21:00)
[2017-10-26] MEDS ORDERED: SERTRALINE HCL 100 MG TAB PO SCH (21:00)
[2017-10-26] MEDS ORDERED: TRAZODONE HCL 50 MG TAB PO SCH (21:00)
[2017-10-26] MEDS ORDERED: ENOXAPARIN 40 MG/0.4 ML SYR SC SCH (21:00)
[2017-10-26] MEDS ORDERED: MoRPHine SULFATE 2 MG/ML CARP ONE (21:26)
[2017-10-26] MEDS ORDERED: MoRPHine SULFATE 4 MG/ML 1 ML CARP\\VIAL ONE (21:31)
[2017-10-26] MEDS ORDERED: IPRATROPIUM BROMIDE NEB SOLN 0.02% 2.5 ML VIAL INH PRN (21:45)
[2017-10-26] MEDS ORDERED: LEVALBUTEROL 1.25MG/0.5ML NEB INH PRN (21:45)
--- NOTE | 2017-10-26 22:17 | DIAGNOSTIC IMAGING REPORT ---
CT HEAD WITHOUT CONTRAST (CT) CLINICAL HISTORY: Severe headache COMPARISON STUDY: 06/17/2014 TECHNIQUE: Axial CT of the brain is performed from the vertex to the skull base. IV contrast was not administered for this examination. A dose lowering technique was utilized adhering to the principles of ALARA. CT DOSE: 941.41 mGy.cm FINDINGS: No intra or extra-axial mass lesions are visualized. There is no CT evidence of acute cortical infarction. There is no evidence of midline shift. There is no acute hemorrhage. No calvarial fractures are visualized. There are minor white matter hypodensities likely on a small vessel basis. There is no evidence of pathologic ventricular dilatation. There is no evidence of acute sinusitis IMPRESSION: No acute intracranial findings Electronically signed by: Herman Thornton M.D. 10/26/2017 10:15 PM Dictated Date/Time: 10/26/2017 10:14 PM
--- NOTE | 2017-10-26 22:24 | DIAGNOSTIC IMAGING REPORT ---
CT ANGIOGRAM OF THE CHEST CLINICAL HISTORY: Atypical chest pain and shortness of breath COMPARISON STUDY: 09/21/2016 TECHNIQUE: Following the IV administration of 116 mL of Optiray-320, CT angiogram of the thorax was performed from the thoracic inlet to the lung bases utilizing the pulmonary embolus protocol. Images are reviewed in the axial, sagittal, and coronal planes. IV contrast was administered without complication. MIP imaging was performed. A dose lowering technique was utilized adhering to the principles of ALARA. CT DOSE: FINDINGS: There is increasing hilar lymphadenopathy. A right hilar node measures 32 mm in diameter. There is a mildly enlarged 11 mm prevascular lymph node. There is 11 mm precarinal lymph node. There is 18 mm subcarinal lymph node. There are right hilar fide calcifications. The ascending thoracic aorta measures 37 mm. No intimal flaps are visualized. There are no pulmonary artery filling defects to indicate acute pulmonary embolism. Potential hypertension is suspected. No pleural effusions are visualized. There is severe underlying pulmonary emphysema there is lower lobe bronchial wall thickening. There are scattered areas of groundglass attenuation in a mosaic pattern, likely secondary to air-trapping. There is dependent atelectatic change. There is no lobar consolidation. IMPRESSION: 1. No evidence of acute pulmonary embolism 2. Advanced pulmonary emphysema 3. Stable mild mediastinal lymphadenopathy. Slight increase in the right hilar lymphadenopathy. 4. Lower lobe bronchial wall thickening Electronically signed by: Herman Thornton M.D. 10/26/2017 10:23 PM Dictated Date/Time: 10/26/2017 10:16 PM
[2017-10-26] MEDS: GUAIFENESIN 600 MG TABCR PO SCH (22:27)
[2017-10-26] MEDS: PANTOprazole SOD 40 MG TAB PO SCH (22:28)
[2017-10-26 23:47] VITALS: BP 133/70; PULSE 92; TEMP 36.8; O2SAT 90; Ht 180.3 cm; Wt 86.0 kg
[2017-10-27 00:10] VITALS: BP 113/69; PULSE 83; TEMP 36.9; O2SAT 90
[2017-10-27] MEDS: MoRPHine SULFATE 4 MG/ML 1 ML CARP\\VIAL IV PRN ×2 (00:28→03:43)
[2017-10-27] MEDS: IPRATROPIUM BROMIDE NEB SOLN 0.02% 2.5 ML VIAL INH SCH ×2 (02:10→07:05)
[2017-10-27] MEDS: LEVALBUTEROL 1.25MG/0.5ML NEB INH SCH ×2 (02:10→07:05)
[2017-10-27 02:11] VITALS: PULSE 86; O2SAT 85
--- NOTE | 2017-10-27 03:16 | HISTORY & PHYSICAL EXAMINATION ---
DATE OF ADMISSION: 10/26/2017 PRIMARY CARE DOCTOR[facility] [place]. CHIEF COMPLAINT: Right-sided chest pain, shortness of breath. HISTORY OF PRESENT ILLNESS: History obtained from patient and records. Medical history is significant for COPD, HTN, past tobacco abuse, mood disorder , post traumatic stress disorder, history of coronary vasospasm as per records, chronic anemia, baseline of 13. Recent confinement last in May 2017 for COPD exacerbation. A few days history of right-sided chest pain with cough symptoms productive of junky sputum. No aspiration, some chills, increasing shortness of breath. Patient complaining of generalized achy headache symptoms from stress. No nausea, no vomiting. No unusual leg swelling. At the Emergency Room, noted to be hypoxemic, O2 saturation is 87% on room air. Received Solu-Medrol, Albuterol, and Azithromycin for COPD exacerbation. MEDICAL HISTORY: As above. SURGICAL HISTORY: He has had appendectomy, tonsillectomy, knee surgery, urologic procedure. MEDICATIONS: Home medications include albuterol, budesonide, epinephrine, tramadol, buspirone, docusate sodium, gabapentin, omeprazole, sertraline, trazodone. ALLERGIES: AMOXICILLIN, BEE STING, CLAVULANIC ACID, PNEUMOCOCCAL VACCINE, PREDNISONE, STATIN. PREDNISONE REACTION IS AGITATION, but the patient can take methylprednisolone without problems. PERSONAL/SOCIAL HISTORY: Past tobacco abuse. No chronic intake of alcohol beverages. . REVIEW OF SYSTEMS: As per HPI. All 10 systems reviewed, all other ROS negative. PHYSICAL EXAMINATION: VITAL SIGNS: Blood pressure was noted to be 129/60, pulse rate 84, RR 22, temperature 37, O2 saturations 93% on 2 L. GENERAL: Noted to be in no respiratory distress, slightly anxious. SKIN: Normal color, warm. HEENT: Ventress palpebral conjunctivae. Chronic ptosis on the right. Dry oral mucosa. NECK: Supple and nontender. CHEST: Decreased expiratory wheeze. HEART: Regular rate and rhythm, no murmur. ABDOMEN: Some distention, nontender. EXTREMITIES: No edema, no other gross deformities, no tenderness. NEUROLOGIC: No gross focality except for chronic ptosis, right. LABORATORY DATA: Hemoglobin of 13, white cells 7, platelets noted to be 168. Sodium 137, potassium 4, chloride 103, CO2 of 30, BUN 9, creatinine 1, glucose was noted to be 87. IMAGING: Chest x-ray showed emphysema, subtle left infrahilar airspace opacity. EKG as per my interpretation, rate 85, NSR, no ischemia. ASSESSMENT: 1. Acute hypoxemic respiratory failure secondary to chronic obstructive pulmonary disease exacerbation secondary to complicated bronchitis no sepsis rule out pulmonary embolism with right-sided pleuritic chest pain. 2. Past tobacco abuse. 3. Hypertension, stable. 4. Chronic anemia, hemoglobin at baseline. 5. Headache likely posttussive , rule out bleed. PLAN: PCU supplemental O2. Doxycycline, nebs, oral methylprednisolone course (given patient hx of agitation from Prednisone) CT of chest PE study CT head RE headache. DVT Prophylaxis: Lovenox subcu. Full code. MTDD
[2017-10-27 03:41] VITALS: BP 106/62; PULSE 76; TEMP 36.9; O2SAT 90
[2017-10-27 05:31] LABS: HEMATOCRIT 37.3 % (42-52); HEMOGLOBIN 12.2 g/dL (14.0-18.0); IG# 0.01 K/uL (0.00-0.02); LYMPH % 8.2 %; MEAN CELL VOLUME 88.6 fL (80-100); MEAN CORPUSCULAR HGB CONC 32.7 g/dl (32-36); MONO % 3.3 %; MONO ABS # 0.16 K/uL (0.11-0.59); NEUT % 88.3 %; NEUT ABS # 4.29 K/uL (1.4-6.5); PLATELET COUNT 172 K/uL (130-400); RED CELL DISTRIBUTION WIDTH CV 14.7 % (11.5-14.5); RED CELL DISTRIBUTION WIDTH SD 47.3 fL (36.4-46.3); WHITE BLOOD COUNT 4.86 K/uL (4.8-10.8)
[2017-10-27 05:52] LABS: BLOOD UREA NITROGEN 10 mg/dl (7-18); CALCIUM 8.5 mg/dl (8.5-10.1); CARBON DIOXIDE 28 mmol/L (21-32); CREATININE 1.19 mg/dl (0.60-1.40); GLUCOSE 173 mg/dl (70-99); POTASSIUM 4.4 mmol/L (3.5-5.1); SODIUM 136 mmol/L (136-145)
[2017-10-27 07:05] VITALS: PULSE 89; O2SAT 91
[2017-10-27 07:12] VITALS: BP 119/72; PULSE 68; TEMP 36.8; O2SAT 90
[2017-10-27] MEDS: GUAIFENESIN 600 MG TABCR PO SCH (07:39)
[2017-10-27] MEDS: PANTOprazole SOD 40 MG TAB PO SCH (07:41)
[2017-10-27] MEDS ORDERED: CETIRIZINE HCL 10 MG TAB PO SCH (09:00)
[2017-10-27] MEDS ORDERED: DOCUSATE SODIUM 100 MG CAP PO SCH (09:00)
[2017-10-27] MEDS ORDERED: METHYLPREDNISOLONE 16 MG TAB PO SCH (09:00)
[2017-10-27] MEDS ORDERED: DOXYCYCLINE HYCLATE 100 MG CAP PO SCH (09:00)
--- NOTE | 2017-10-27 10:32 | Progress Note ---
Subjective Date of Service: October 27, 2017. Subjective Pt evaluation today including: conversation w/ patient, physical exam, lab review, review of studies, review of inpatient medication list Saw/examined the patient in room 288 Tells me his chest pain has resolved and his breathing is improved Refusing to stay in the hospital; states he has everything at home including oxygen, nebulizers Problem List Medical Problems: (1) Acute bronchitis Status: Acute (2) Bronchitis Status: Acute (3) Bronchitis Status: Acute (4) Bronchitis Status: Acute (5) Chest pain, unspecified Status: Acute (6) COPD exacerbation Status: Acute (7) Failure of outpatient treatment Status: Acute (8) Gastritis Status: Acute (9) Hypokalemia Status: Acute (10) Hypoxia Status: Acute (11) Hypoxia Status: Acute (12) Pneumonia Status: Acute Review of Systems Respiratory: + cough, + sputum, + wheezing, + dyspnea on exertion, No shortness of breath (improving) Cardiac: No chest pain (resolved), No edema, No palpitations Medications Current Inpatient Medications Medications (Trade) Dose Ordered Sig/Oren Route Start Time Stop Time Status Last Admin Dose Admin Tramadol HCl (Ultram Tab) not relieved by tylenol @ Q6H PRN PO 10/26/17 20:00 11/25/17 19:59 10/26/17 22:34 50 MG Ioversol (Optiray 320) 100 ml UD PRN IV 10/26/17 20:15 10/30/17 20:14 Enoxaparin Sodium (Lovenox Inj) 40 mg Q24H SC 10/26/17 21:00 11/25/17 20:59 10/26/17 22:36 40 MG Acetaminophen (Tylenol Tab) 650 mg Q4H PRN PO 10/26/17 20:30 11/25/17 20:29 Morphine Sulfate (MoRPHine SULFATE INJ) 4 mg Q3H PRN IV 10/26/17 20:30 11/09/17 20:29 10/27/17 03:43 4 MG Prochlorperazine Edisylate 5 mg/ Syringe 5 ml @ 5 mls/min Q6H PRN IV 10/26/17 20:30 11/25/17 20:29 Methylprednisolone (Medrol Tab) 32 mg DAILY PO 10/27/17 09:00 10/31/17 08:59 10/27/17 07:40 32 MG Buspirone HCl (Buspar Tab) 5 mg HS PO 10/26/17 21:00 11/25/17 20:59 10/26/17 21:34 5 MG Cetirizine HCl (zyrTEC TAB) 10 mg DAILY PO 10/27/17 09:00 11/26/17 08:59 10/27/17 07:41 10 MG Docusate Sodium (coLACE CAP) 100 mg DAILY PO 10/27/17 09:00 11/26/17 08:59 10/27/17 07:40 100 MG Guaifenesin (Mucinex Contr Rel Tab) 1,200 mg Q12H PO 10/26/17 21:00 11/25/17 20:59 10/27/17 07:39 1,200 MG Sertraline HCl (Zoloft Tab) 200 mg HS PO 10/26/17 21:00 11/25/17 20:59 10/26/17 22:27 200 MG Pantoprazole Sodium (Protonix Tab) 40 mg BID PO 10/26/17 21:00 11/25/17 20:59 10/27/17 07:41 40 MG Trazodone HCl (Desyrel Tab) 150 mg HS PO 10/26/17 21:00 11/25/17 20:59 10/26/17 22:35 150 MG Ipratropium Wheeler (Atrovent 0.02% 0.5MG/2.5ML Neb) 0.5 mg Q6R INH 10/27/17 03:00 11/26/17 02:59 10/27/17 07:05 0.5 MG Levalbuterol (Xopenex 1.25MG/ 0.5ML Neb) 1.25 mg Q6R INH 10/27/17 03:00 11/26/17 02:59 10/27/17 07:05 1.25 MG Ipratropium Wheeler (Atrovent 0.02% 0.5MG/2.5ML Neb) 0.5 mg Q4H PRN INH 10/26/17 21:45 11/25/17 21:44 Levalbuterol (Xopenex 1.25MG/ 0.5ML Neb) 1.25 mg Q4H PRN INH 5/19/18 21:45 11/25/17 21:44 Doxycycline Hyclate (Vibramycin Cap) 100 mg BID PO 10/27/17 09:00 11/03/17 08:59 10/27/17 07:40 100 MG Objective Vital Signs Date Time Temp Pulse Resp B/P (MAP) Pulse Ox O2 Delivery O2 Flow Rate FiO2 10/27/17 08:00 Nasal Cannula 3.0 10/27/17 07:12 36.8 68 18 119/72 (88) 90 Nasal Cannula 2.0 10/27/17 07:05 89 18 91 Nasal Cannula 3.0 10/27/17 04:00 Nasal Cannula 3.0 10/27/17 03:41 36.9 76 18 106/62 (77) 90 Nasal Cannula 10/27/17 02:11 86 18 85 Nasal Cannula 2.0 10/27/17 00:10 36.9 83 20 113/69 (84) 90 Nasal Cannula 2.0 10/27/17 00:00 Nasal Cannula 3.0 10/26/17 23:47 36.8 92 20 133/70 90 Nasal Cannula 3.0 10/26/17 20:19 96 20 121/76 92 Nasal Cannula 2.5 10/26/17 18:50 84 22 130/76 92 Nasal Cannula 2.5 10/26/17 17:51 93 Nasal Cannula 2.5 10/26/17 17:49 67 20 129/83 99 Nebulizer 10/26/17 17:32 93 Nasal Cannula 2.5 10/26/17 17:32 93 Nasal Cannula 2.5 10/26/17 17:24 74 10/26/17 17:06 37.0 86 18 129/58 87 Room Air Physical Exam General Appearance: no apparent distress Respiratory/Chest: no respiratory distress, no accessory muscle use, + wheezing (diffuse end expiratory wheezing with decreased air movement) Cardiovascular: regular rate, rhythm, no edema, no murmur Extremities: normal range of motion, non-tender, normal inspection, no pedal edema, no calf tenderness Neurologic/Psychiatric: no motor/sensory deficits, alert, normal mood/affect Laboratory Results Last 24 Hours Test 10/26/17 17:40 10/26/17 20:06 10/27/17 05:00 White Blood Count 7.09 K/uL 4.86 K/uL Red Blood Count 4.39 M/uL 4.21 M/uL Hemoglobin 13.0 g/dL 12.2 g/dL Hematocrit 38.7 % 37.3 % Mean Corpuscular Volume 88.2 fL 88.6 fL Mean Corpuscular Hemoglobin 29.6 pg 29.0 pg Mean Corpuscular Hemoglobin Concent 33.6 g/dl 32.7 g/dl Platelet Count 168 K/uL 172 K/uL Mean Platelet Volume 8.9 fL 9.0 fL Neutrophils (%) (Auto) 66.7 % 88.3 % Lymphocytes (%) (Auto) 16.8 % 8.2 % Monocytes (%) (Auto) 15.1 % 3.3 % Eosinophils (%) (Auto) 0.7 % 0.0 % Basophils (%) (Auto) 0.6 % 0.0 % Neutrophils # (Auto) 4.73 K/uL 4.29 K/uL Lymphocytes # (Auto) 1.19 K/uL 0.40 K/uL Monocytes # (Auto) 1.07 K/uL 0.16 K/uL Eosinophils # (Auto) 0.05 K/uL 0.00 K/uL Basophils # (Auto) 0.04 K/uL 0.00 K/uL RDW Standard Deviation 46.9 fL 47.3 fL RDW Coefficient of Variation 14.4 % 14.7 % Immature Granulocyte % (Auto) 0.1 % 0.2 % Immature Granulocyte # (Auto) 0.01 K/uL 0.01 K/uL Prothrombin Time 10.7 SECONDS Prothromb Time International Ratio 1.0 Activated Partial Thromboplast Time 28.9 SECONDS Partial Thromboplastin Ratio 1.1 Sodium Level 137 mmol/L 136 mmol/L Potassium Level 4.0 mmol/L 4.4 mmol/L Chloride Level 103 mmol/L 103 mmol/L Carbon Dioxide Level 31 mmol/L 28 mmol/L Anion Gap 3.0 mmol/L 5.0 mmol/L Blood Urea Nitrogen 9 mg/dl 10 mg/dl Creatinine 1.04 mg/dl 1.19 mg/dl Est Creatinine Clear Calc Drug Dose 71.2 ml/min 64.1 ml/min Estimated GFR () 85.7 72.8 Estimated GFR (Non- 73.9 62.8 BUN/Creatinine Ratio 8.4 8.4 Random Glucose 87 mg/dl 173 mg/dl Calcium Level 8.4 mg/dl 8.5 mg/dl Magnesium Level 2.1 mg/dl Total Bilirubin 0.4 mg/dl Direct Bilirubin 0.1 mg/dl Aspartate Amino Transf (AST/SGOT) 20 U/L Alanine Aminotransferase (ALT/SGPT) 21 U/L Alkaline Phosphatase 95 U/L Troponin I < 0.015 ng/ml < 0.015 ng/ml Pro-B-Type Natriuretic Peptide 716 pg/ml Total Protein 6.9 gm/dl Albumin 3.4 gm/dl Thyroid Stimulating Hormone (TSH) 1.310 uIu/ml Arterial Blood pH 7.45 Arterial Blood Partial Pressure CO2 42 mmHg Arterial Blood Partial Pressure O2 56 mm/Hg Arterial Blood HCO3 28 mmol/L Arterial Blood Oxygen Saturation 88.4 % Arterial Blood Base Excess 3.7 mEq/L Arterial Blood Gas Delivery 3L O2 Wyatt Test POS Assessment and Plan This is a 67 year old male with a past medical history of severe COPD, PTSD, mood disorder - presents with worsening shortness of breath, dyspnea on exertion Acute Hypoxic Respiratory Failure Acute Complicated Bronchitis Acute COPD Exacerbation - patient with severe COPD, likely should be on supplemental O2 continuously - uses Symbicort and Spiriva at home at baseline - presented with worsening shortness of breath/wheezing/HORAN - CT chest performed to show bronchial wall thickening/severe emphysema - recommended patient stay in the hospital due to persistent wheezing but refusing at this point - states he has nebulizer machine, portable oxygen at home - explained the possibility of a re-admission due to worsening shortness of breath, but insistent on going home - two step ordered to see how much O2 he would need at home - will discharge with a medrol dosepak (prednisone allergy noted) - doxycycline for complicated bronchitis - close outpatient follow-up with PCP and pulmonology PTSD/Mood Disorder - continue home medications DVT ppx - Lovenox FULL CODE
[2017-10-27 10:59] VITALS: BP 119/72; PULSE 68; TEMP 36.8; O2SAT 90
[2017-10-27] MEDS ORDERED: METH4PAK PO (11:07)
[2017-10-27] MEDS ORDERED: OXGN (11:07)
[2017-10-27] MEDS ORDERED: DXY100 PO (11:07)
--- NOTE | 2017-10-27 11:12 | Discharge Instructions ---
Discharge Instructions Date of Service October 27, 2017. Admission Reason for Admission: Respiratory Failure, Acute Discharge Discharge Diagnosis / Problem: Worsening COPD, bronchitis Discharge Goals Goal(s): Decrease discomfort, Improve function, Diagnostic testing, Therapeutic intervention Activity Recommendations Activity Limitations: resume your previous activity . Instructions / Follow-Up Instructions / Follow-Up Please follow-up with your primary care doctor in 3-5 days Please follow-up with pulmonology * You will require 2L of oxygen at rest and 5L with ambulation * You will be on doxycycline (abx) twice a day for the next five days * You will be on a medrol dose-bre please use as directed Current Hospital Diet Patient's current hospital diet: AHA Diet (Heart Healthy) Discharge Diet Recommended Diet: AHA Diet (Heart Healthy) Pending Studies Studies pending at discharge: no Medical Emergencies . Who to Call and When: Medical Emergencies: If at any time you feel your situation is an emergency, please call 911 immediately. . Non-Emergent Contact Non-Emergency issues call your: Primary Care Provider . . "Provider Documentation" section prepared by Antonio Calix. .
--- NOTE | 2017-10-27 11:14 | Discharge Summary ---
Discharge Summary Date of Service October 27, 2017. Discharge Summary Admission Date: October 26, 2017 at 19:38 Discharge Date: October 27, 2017 Discharge Disposition: Home Principal Diagnosis: Acute COPD Exacerbation; Severe COPD Acute Hypoxic Respiratory Failure Acute, Complicated Bronchitis Medication Reconciliation New Medications: Home O2 Therapy (Oxygen) Gas 2 LITERS NA PRN for 30 Days use 2L of O2 at rest use 5L of O2 with ambulation Methylprednisolone (Medrol Dosepak) 4 Mg Wilman 1 PKT PO DAILY, #1 PKT Doxycycline Hyclate (Doxycycline Hyclate) 100 Mg Cap 100 MG PO BID for 5 Days, #10 CAP Continued Medications: Albuterol Hfa (Ventolin Hfa) 200 Puffs/88282 Mcg Aers 2-4 PUFFS INH Q6H PRN for ASTHMA Albuterol Sulf (Proventil 0.083% 2.5MG/3ML) 2.5 Mg/3 Ml Nebu 2.5 MG INH QID PRN for SOB/Wheezing Budesonide/Formoterol Fumarate (Symbicort 160/4.5 Inhaler ) Aero 2 PUFF INH BID Buspirone Hcl (Buspirone Hcl) 5 Mg Tab 5 MG PO HS Cetirizine (Zyrtec) 10 Mg Tab 10 MG PO DAILY, TAB Docusate Sodium (Colace) 100 Mg Cap 100 MG PO DAILY Epinephrine (Epipen 2-Wilman) 0.3 Mg Inj 0.3 MG IM UD PRN for ALLERGIC REACTION Guaifenesin La (Guaifenesin Er) 600 Mg Tabcr 1200 MG PO Q12H, TAB Omeprazole (Prilosec) 20 Mg Cap 20 MG PO BID, CAP Sertraline Hcl (Zoloft) 100 Mg Tab 200 MG PO HS, TAB Tiotropium Amidon (Spiriva Handihaler) 30 Puff/540 Mcg Aerp 1 CAP INH DAILY Tramadol (Ultram) 50 Mg Tab 50 MG PO Q6H PRN for Pain, TAB Trazodone HCl (Trazodone HCl) 150 Mg Tab 150 MG PO HS Admission Information HPI (per Admitting provider): DATE OF ADMISSION: 10/26/2017 PRIMARY CARE DOCTOR: [facility] in [place]. CHIEF COMPLAINT: Right-sided chest pain, shortness of breath. HISTORY OF PRESENT ILLNESS: History obtained from patient and records. Medical history is significant for COPD, HTN, past tobacco abuse, mood disorder , post traumatic stress disorder, history of coronary vasospasm as per records, chronic anemia, baseline of 13. Recent confinement last in May 2017 for COPD exacerbation. A few days history of right-sided chest pain with cough symptoms productive of junky sputum. No aspiration, some chills, increasing shortness of breath. Patient complaining of generalized achy headache symptoms from stress. No nausea, no vomiting. No unusual leg swelling. At the Emergency Room, noted to be hypoxemic, O2 saturation is 87% on room air. Received Solu-Medrol, Albuterol, and Azithromycin for COPD exacerbation. MEDICAL HISTORY: As above. SURGICAL HISTORY: He has had appendectomy, tonsillectomy, knee surgery, urologic procedure. MEDICATIONS: Home medications include albuterol, budesonide, epinephrine, tramadol, buspirone, docusate sodium, gabapentin, omeprazole, sertraline, trazodone. ALLERGIES: AMOXICILLIN, BEE STING, CLAVULANIC ACID, PNEUMOCOCCAL VACCINE, PREDNISONE, STATIN. PREDNISONE REACTION IS AGITATION, but the patient can take methylprednisolone without problems. PERSONAL/SOCIAL HISTORY: Past tobacco abuse. No chronic intake of alcohol beverages. . REVIEW OF SYSTEMS: As per HPI. All 10 systems reviewed, all other ROS negative. PHYSICAL EXAMINATION: VITAL SIGNS: Blood pressure was noted to be 129/60, pulse rate 84, RR 22, temperature 37, O2 saturations 93% on 2 L. GENERAL: Noted to be in no respiratory distress, slightly anxious. SKIN: Normal color, warm. HEENT: [place] palpebral conjunctivae. Chronic ptosis on the right. Dry oral mucosa. NECK: Supple and nontender. CHEST: Decreased expiratory wheeze. HEART: Regular rate and rhythm, no murmur. ABDOMEN: Some distention, nontender. EXTREMITIES: No edema, no other gross deformities, no tenderness. NEUROLOGIC: No gross focality except for chronic ptosis, right. LABORATORY DATA: Hemoglobin of 13, white cells 7, platelets noted to be 168. Sodium 137, potassium 4, chloride 103, CO2 of 30, BUN 9, creatinine 1, glucose was noted to be 87. IMAGING: Chest x-ray showed emphysema, subtle left infrahilar airspace opacity. EKG as per my interpretation, rate 85, NSR, no ischemia. ASSESSMENT: 1. Acute hypoxemic respiratory failure secondary to chronic obstructive pulmonary disease exacerbation secondary to complicated bronchitis no sepsis rule out pulmonary embolism with right-sided pleuritic chest pain. 2. Past tobacco abuse. 3. Hypertension, stable. 4. Chronic anemia, hemoglobin at baseline. 5. Headache likely posttussive , rule out bleed. PLAN: PCU supplemental O2. Doxycycline, nebs, oral methylprednisolone course (given patient hx of agitation from Prednisone) CT of chest PE study CT head RE headache. DVT Prophylaxis: Lovenox subcu. Full code. Hospital Course This is a 67 year old male with a past medical history of severe COPD, PTSD, mood disorder - presents with worsening shortness of breath, dyspnea on exertion Acute Hypoxic Respiratory Failure Acute Complicated Bronchitis Acute COPD Exacerbation - patient with severe COPD, likely should be on supplemental O2 continuously - uses Symbicort and Spiriva at home at baseline - presented with worsening shortness of breath/wheezing/HORAN - CT chest performed to show bronchial wall thickening/severe emphysema - recommended patient stay in the hospital due to persistent wheezing but refusing at this point - states he has nebulizer machine, portable oxygen at home - explained the possibility of a re-admission due to worsening shortness of breath, but insistent on going home - two step ordered to see how much O2 he would need at home - will discharge with a medrol dosepak (prednisone allergy noted) - doxycycline for complicated bronchitis - close outpatient follow-up with PCP and pulmonology PTSD/Mood Disorder - continue home medications DVT ppx - Lovenox FULL CODE Total time spent on discharge = 45 minutes This includes examination of the patient, discharge planning, medication reconciliation, and communication with other providers. Discharge Instructions Please follow-up with your primary care doctor in 3-5 days Please follow-up with pulmonology * You will require 2L of oxygen at rest and 5L with ambulation * You will be on doxycycline (abx) twice a day for the next five days * You will be on a medrol dose-wilman please use as directed
== END 2017-10-27 12:15 | disposition home or self-care (01) | DRG 189 ==
LOC: C.EDB 17:04 → C.MED 19:38 → ENRESERV 20:13
PROVIDERS: ADMIT Family Medicine; ATTEND Family Medicine
DX: J96.01 Acute respiratory failure with hypoxia (principal); J44.0 Chronic obstructive pulmonary disease with (acute) lower respiratory infection; J44.1 Chronic obstructive pulmonary disease with (acute) exacerbation; J20.9 Acute bronchitis, unspecified; Z87.891 Personal history of nicotine dependence; Z88.1 Allergy status to other antibiotic agents; Z88.8 Allergy status to other drugs, medicaments and biological substances; D64.9 Anemia, unspecified; I10 Essential (primary) hypertension; Z88.7 Allergy status to serum and vaccine; G44.83 Primary cough headache; F39 Unspecified mood [affective] disorder

== ENCOUNTER 2018-07-04 14:33 | Observation (INO) ==
[2018-07-04] MEDS ORDERED: ALBUT/IPRATROP 3MG/0.5MG NEB 3 ML VIAL INH STA (15:06)
[2018-07-04] MEDS ORDERED: methylPREDNISolone 125 MG/2 ML VIAL IV STA (15:06)
[2018-07-04] MEDS ORDERED: SODIUM CHLORIDE 0.9% 1000ML 1,000 ML IV SCH (15:15)
[2018-07-04 15:34] LABS: Base Excess VBG 3.4 mEq/L; Oxygen Saturation VBG 73.6 %; pH VBG 7.37 (7.36-7.41)
[2018-07-04 15:37] LABS: Basophils # (auto) 0.02 K/uL (0-0.2); Basophils % (auto) 0.2 %; Eosinophils # (auto) 0.07 K/uL (0-0.5); Eosinophils % (auto) 0.6 %; Hematocrit (blood only) 40.8 % (42-52); Hemoglobin 13.2 g/dL (14.0-18.0); Immature Granulocytes # (auto) 0.03 K/uL (0.00-0.02); Immature Granulocytes % (auto) 0.3 %; Lymphocytes # (auto) 1.83 K/uL (1.2-3.4); Lymphocytes % (auto) 16.4 %; Mean Corpuscular Hgb Conc 32.4 g/dL (32-36); Mean Corpuscular Volume 89.9 fL (80-100); Mean Platelet Volume 8.9 fL (7.4-10.4); Monocytes # (auto) 0.97 K/uL (0.11-0.59); Monocytes % (auto) 8.7 %; Neutrophils # (auto) 8.25 K/uL (1.4-6.5); Neutrophils % (auto) 73.8 %; Platelet Count 226 K/uL (130-400); RDW Coefficient of Variation 15.5 % (11.5-14.5); RDW Standard Deviation 51.4 fL (36.4-46.3); Red Blood Count 4.54 M/uL (4.7-6.1); White Blood Count 11.17 K/uL (4.8-10.8)
[2018-07-04 15:48] LABS: Alanine Aminotransferase 16 U/L (12-78); Albumin Level 3.4 gm/dl (3.4-5.0); Aspartate Aminotransferase 13 U/L (15-37); BUN Creatinine Ratio 12.7 (10-20); Blood Urea Nitrogen 13 mg/dl (7-18); Calcium 8.5 mg/dl (8.5-10.1); Carbon Dioxide 27 mmol/L (21-32); Chloride 103 mmol/L (98-107); Creatinine Clr Calc Pharmacy 69.5 ml/min; Est GFR (African American) 84.1; Est GFR (Non-African American) 72.6; Glucose 96 mg/dl (70-99); Sodium 137 mmol/L (136-145)
--- NOTE | 2018-07-04 15:50 | XRay Report ---
SINGLE VIEW CHEST CLINICAL HISTORY: Dyspnea. FINDINGS: An AP, portable, upright chest radiograph is compared to chest x-ray and chest CT dated . The examination is degraded by portable technique and patient rotation. The cardiomediastin al silhouette is unremarkable, noting atherosclerotic calcification of the thoracic aorta enlargement of the central pulmonary arteries indicates pulmonary artery hypertension.. Advanced emphysema and c hronic interstitial thickening are similar to previous. Dependent airspace opacities are present at b oth lung bases. No large pleural effusion is identified. No pneumothorax is seen. The skeletal struct ures are osteopenic. The bony thorax is grossly intact. Degenerative change and scoliosis are noted i n the thoracic spine. IMPRESSION: 1. Advanced emphysema. 2. Bibasilar airspace opacities are nonspecific and could represent atelectasis versus an infectious/ inflammatory pneumonitis. Clinical correlation will be required. Electronically signed by: Luciano Prieto M.D. 07/04/2018 3:49 PM
[2018-07-04 15:51] LABS: INR 1.1 (0.9-1.1); Partial Thromboplastin Ratio 1.3; Partial Thromboplastin Time 34.8 Seconds (21.0-31.0); Prothrombin Time 10.7 Seconds (9.0-12.0)
[2018-07-04 15:52] LABS: Alkaline Phosphatase 86 U/L (45-117); Bilirubin,Total 0.4 mg/dl (0.2-1); Globulin 3.3 gm/dl (2.5-4.0); Total Protein 6.7 gm/dl (6.4-8.2); Troponin I < 0.015 ng/ml (0-0.045)
[2018-07-04] MEDS ORDERED: metroNIDAZOLE 500 MG/100 ML BAG IV STA (16:13)
[2018-07-04] MEDS ORDERED: CEFEPIME 1,000 MG in SYRINGE 0 ML IV STA (16:13)
[2018-07-04 16:25] LABS: Influenza A virus by PCR Neg for Influ A (Neg); Influenza B virus by PCR Neg for Influ B (Neg)
--- NOTE | 2018-07-04 16:33 | Emergency Department Note ---
Entered by Francois Buenrostro acting as a scribe for Edgar Beck MD History of Present Illness General Chief complaint: Shortness of Breath/Dyspnea Time Seen by Provider: 07/04/18 14:54 Source: patient History of Present Illness Onset (ago): hour(s) (worsened today) Location: chest (lungs) Pain Consistency: + other (worsening) Quality: + other (shortness of breath) Relieved By: + other (supplemental oxygen) Exacerbated By: + other (exertion and lying flat) Associated symptoms: + cough; no fever/chills and no other (leg swelling) The patient is a 68 year old white male with a history COPD, emphysema, 2 L oxygen at night, PTSD, and HTN who presents to the Emergency Room with hypoxia and worsened shortness of breath. His shortness of breath is worsened with exertion and lying flat, and he has been taking his inhalers more frequently in the past week. The patient reports that he was sent [facility] today for his symptoms. He notes a cough productive of yellow phlegm. He states that he wears oxygen at night but not during the day. He notes that he quit smoking six years ago. He states that he follows pulmonology at the [facility]. The patient denies leg swelling, fevers, or cardiac history. He states that he currently feels improved while wearing supplemental oxygen. He reports that he was hospitalized here with pneumonia last month and has been taking antibiotics. He states that he has received a flu shot. Home Medications Home Medications Medication Instructions Recorded Confirmed Type buspirone 5 mg PO HS 04/08/18 07/04/18 History cetirizine 10 mg PO DAILY PRN 04/08/18 07/04/18 History guaifenesin [Mucinex] 600 mg PO Q12H 04/08/18 07/04/18 History omeprazole 20 mg PO BID 04/08/18 07/04/18 History sertraline 200 mg PO HS 04/08/18 07/04/18 History tiotropium bromide [Spiriva with 1 cap INHALATION DAILY 04/08/18 07/04/18 History HandiHaler] tramadol 50 mg PO QID PRN 04/08/18 07/04/18 History trazodone 150 mg PO HS 04/08/18 07/04/18 History budesonide-formoterol 2 puff INHALATION Q12H 12/13/18 01/25/19 History diltiazem HCl 120 mg PO DAILY 05/22/18 07/04/18 History albuterol sulfate 2 puff INHALATION Q6H PRN 07/04/18 07/04/18 History albuterol sulfate 2.5 mg INHALATION QID PRN 07/04/18 07/04/18 History finasteride 5 mg PO DAILY 07/04/18 07/04/18 History Allergies Allergy/AdvReac Type Severity Reaction Status Date / Time bee venom protein (honey bee) Allergy Severe ANAPHYLAXIS Verified 07/04/18 15:41 pneumococcal vaccine Allergy Severe SWELLING Verified 07/04/18 15:41 Ujuzomv-Puj-Nag Reductase Allergy Severe CPK'S GO Verified 07/04/18 15:41 Inhibitor THROUGH ROOF amoxicillin Allergy Intermediate FACIAL Verified 07/04/18 15:41 SWELLING (EYES SWELLED SHUT) clavulanic acid Allergy Intermediate FACIAL Verified 07/04/18 15:41 SWELLING (EYES SWELLED SHUT) prednisone AdvReac Severe confusion Verified 07/04/18 15:41 and agitation Past Med/Surg History Surgical History History of extraction of renal calculus (Resolved) History of appendectomy (Resolved) History of tonsillectomy (Resolved) Loss of teeth due to extraction (Chronic) H/O hernia repair S/P arthroscopic surgery of right knee Family History Mother Colon cancer Father FH: kidney cancer Other Cancer Social History marital status: Current Living Situation: Spouse 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 and A total of 10 systems reviewed and were otherwise negative Physical Exam Vital Signs Vital Signs - 24 hr 07/04/18 14:44 07/04/18 14:46 07/04/18 14:47 Temperature 36.7 C Temperature Source Oral Sepsis Recent Fever Within 48 Hours No Sepsis New/Unexplained Change in Mental Status No Sepsis Action Taken by Nursing No Action Required Pulse Rate 68 Pulse Rhythm Respiratory Rate 20 Respiratory Depth Normal Blood Pressure 151/76 H Blood Pressure Mean 101 Pulse Oximetry 80 L 91 93 Oxygen Delivery Method Room Air Nasal Cannula Nasal Cannula Oxygen Flow Rate 2 2 07/04/18 15:38 07/04/18 16:01 07/04/18 16:30 Temperature Temperature Source Sepsis Recent Fever Within 48 Hours Sepsis New/Unexplained Change in Mental Status Sepsis Action Taken by Nursing Pulse Rate 63 65 Pulse Rhythm Regular Respiratory Rate 20 20 Respiratory Depth Blood Pressure 115/69 99/64 L Blood Pressure Mean 84 75 Pulse Oximetry 92 97 93 Oxygen Delivery Method Nasal Cannula Oxygen Flow Rate 2 07/04/18 17:01 07/04/18 17:34 07/04/18 18:01 Temperature Temperature Source Sepsis Recent Fever Within 48 Hours Sepsis New/Unexplained Change in Mental Status Sepsis Action Taken by Nursing Pulse Rate 70 66 Pulse Rhythm Respiratory Rate 18 18 Respiratory Depth Blood Pressure 109/60 118/59 L 119/70 Blood Pressure Mean 76 78 Pulse Oximetry 89 L 91 92 Oxygen Delivery Method Room Air Oxygen Flow Rate GENERAL: Appears older than stated age, well nourished, NAD, non-toxic, wearing glasses, NC in place. EYE EXAM: Normal conjunctiva. PERRL, no anisocoria and EOM's grossly intact w/o pain. OROPHARYNX: No exudate, posterior pharynx is clear, no tonsillar/uvular deviation or swelling. NECK: Supple, no nuchal rigidity, no adenopathy, non-tender. No signs of meningismus. LUNGS: Decreased breath sounds and mild diffuse wheezing throughout. Normal chest wall mechanics. HEART: NSR, no MRG. ABDOMEN: Abdomen soft, non-tender, normo-active bowel sounds, no masses, no rebound or guarding. BACK: No CVA TTP. SKIN: No rashes and no bruising. UPPER EXTREMITIES: Upper extremities are grossly normal. LOWER EXTREMITIES: No pitting edema. No calf pain. Negative Claudia's sign b/l. NEURO EXAM: Cranial nerves II-XII grossly intact, normal speech, 5/5 strength in b/l upper and lower extremities, moves all 4 extremities without issue on command. Course 1458: Past medical records reviewed. The patient was evaluated in room B5, and a complete history and physical examination were performed. 1630: I consulted MAYUR Collins [facility]. She will reevaluate the patient for hospitalization. 1645: I updated the patient on his results and the plan for hospitalization. Consultations Consultation #1: I consulted MAYUR Collins Hospitalist. She will reevaluate the patient for hospitalization. Time: 16:30 Administered Medications Discontinued Medications Albuterol (Duoneb) 6 ml INH NOW STA Stop: 07/04/18 15:07 Last Admin: 07/04/18 15:41 Dose: 6 ml Sodium Chloride (Nss 1000ml) 1,000 mls @ 999 mls/hr IV .Q1H1M PEARL Stop: 07/04/18 16:15 Last Infusion: 07/04/18 17:38 Dose: 0 mls/hr Admin: 07/04/18 15:41 Dose: 999 mls/hr Cefepime HCl 1,000 mg/ Syringe 11.3 mls @ 5.5 mls/min IV NOW STA Stop: 07/04/18 16:15 Last Admin: 07/04/18 17:11 Dose: 5.5 mls/min Metronidazole (Flagyl) 500 mg in 100 mls @ 100 mls/hr IV NOW STA Stop: 07/04/18 17:12 Last Admin: 07/04/18 17:11 Dose: 100 mls/hr Methylprednisolone (Solumedrol) 125 mg IV NOW STA Stop: 07/04/18 15:07 Last Admin: 07/04/18 15:42 Dose: 125 mg Medical Decision Making Medical Records Attestation: I reviewed the patient's medical records. Home Medications Current Medication List: was personally reviewed by me Laboratory Data Attestation: I reviewed the patient's lab results. Result diagrams: 07/04/18 15:17 07/04/18 15:17 Lab Results 07/04/18 07/04/18 07/04/18 Range/Units 15:17 15:17 15:17 WBC 11.17 H (4.8-10.8) K/uL RBC 4.54 L (4.7-6.1) M/uL Hgb 13.2 L (14.0-18.0) g/dL Hct 40.8 L (42-52) % MCV 89.9 (80-100) fL MCH 29.1 (25-34) pg MCHC 32.4 (32-36) g/dL RDW Std Deviation 51.4 H (36.4-46.3) fL RDW Coeff of Ren 15.5 H (11.5-14.5) % Plt Count 226 (130-400) K/uL MPV 8.9 (7.4-10.4) fL Immature Gran % (Auto) 0.3 % Neut % (Auto) 73.8 % Lymph % (Auto) 16.4 % Lamar % (Auto) 8.7 % Eos % (Auto) 0.6 % Baso % (Auto) 0.2 % Immature Gran # (Auto) 0.03 H (0.00-0.02) K/uL Neut # (Auto) 8.25 H (1.4-6.5) K/uL Lymph # (Auto) 1.83 (1.2-3.4) K/uL Lamar # (Auto) 0.97 H (0.11-0.59) K/uL Eos # (Auto) 0.07 (0-0.5) K/uL Baso # (Auto) 0.02 (0-0.2) K/uL PT 10.7 (9.0-12.0) Seconds INR 1.1 (0.9-1.1) APTT 34.8 H (21.0-31.0) Seconds PTT Ratio 1.3 VBG pH 7.37 (7.36-7.41) VBG pCO2 53 H (38-50) mmHg VBG pO2 41 mmHg VBG HCO3 30 mmol/L VBG O2 Saturation 73.6 % VBG Base Excess 3.4 mEq/L Barometric Pressure 732.9 mm/Hg Sodium (136-145) mmol/L Potassium (3.5-5.1) mmol/L Chloride (98-107) mmol/L Carbon Dioxide (21-32) mmol/L Anion Gap (3-11) BUN (7-18) mg/dl Creatinine (0.6-1.4) mg/dl Est Cr Clr Drug Dosing ml/min Est GFR ( Amer) Est GFR (Non-Af Amer) BUN/Creatinine Ratio (10-20) Glucose (70-99) mg/dl Calcium (8.5-10.1) mg/dl Total Bilirubin (0.2-1) mg/dl AST (15-37) U/L ALT (12-78) U/L Alkaline Phosphatase (45-117) U/L Troponin I (0-0.045) ng/ml Total Protein (6.4-8.2) gm/dl Albumin (3.4-5.0) gm/dl Globulin (2.5-4.0) gm/dl Albumin/Globulin Ratio (0.9-2) Urine Color Urine Appearance (Clear) Urine pH (4.5-7.5) Ur Specific [place] (1.000-1.030) Urine Protein (Negative) Urine Glucose (UA) (Negative) Urine Ketones (Negative) Urine Blood (Negative) Urine Nitrite (Negative) Urine Bilirubin (Negative) Urine Urobilinogen (Negative) Ur Leukocyte Esterase (Negative) Urine WBC (Auto) (0-5) /hpf Urine RBC (Auto) (0-4) /hpf U Hyaline Cast (Auto) (0-5) /lpf U Epithel Cells (Auto) (0-5) /lpf Urine Bacteria (Auto) (Negative) Urine Yeast (None Prsent) Influenza Type A (PCR) (Neg) Influenza Type B (PCR) (Neg) 07/04/18 07/04/18 07/04/18 Range/Units 15:17 15:40 16:20 WBC (4.8-10.8) K/uL RBC (4.7-6.1) M/uL Hgb (14.0-18.0) g/dL Hct (42-52) % MCV (80-100) fL MCH (25-34) pg MCHC (32-36) g/dL RDW Std Deviation (36.4-46.3) fL RDW Coeff of Ren (11.5-14.5) % Plt Count (130-400) K/uL MPV (7.4-10.4) fL Immature Gran % (Auto) % Neut % (Auto) % Lymph % (Auto) % Lamar % (Auto) % Eos % (Auto) % Baso % (Auto) % Immature Gran # (Auto) (0.00-0.02) K/uL Neut # (Auto) (1.4-6.5) K/uL Lymph # (Auto) (1.2-3.4) K/uL Lamar # (Auto) (0.11-0.59) K/uL Eos # (Auto) (0-0.5) K/uL Baso # (Auto) (0-0.2) K/uL PT (9.0-12.0) Seconds INR (0.9-1.1) APTT (21.0-31.0) Seconds PTT Ratio VBG pH (7.36-7.41) VBG pCO2 (38-50) mmHg VBG pO2 mmHg VBG HCO3 mmol/L VBG O2 Saturation % VBG Base Excess mEq/L Barometric Pressure mm/Hg Sodium 137 (136-145) mmol/L Potassium 4.0 (3.5-5.1) mmol/L Chloride 103 (98-107) mmol/L Carbon Dioxide 27 (21-32) mmol/L Anion Gap 8.0 (3-11) BUN 13 (7-18) mg/dl Creatinine 1.05 (0.6-1.4) mg/dl Est Cr Clr Drug Dosing 69.5 ml/min Est GFR ( Amer) 84.1 Est GFR (Non-Af Amer) 72.6 BUN/Creatinine Ratio 12.7 (10-20) Glucose 96 (70-99) mg/dl Calcium 8.5 (8.5-10.1) mg/dl Total Bilirubin 0.4 (0.2-1) mg/dl AST 13 L (15-37) U/L ALT 16 (12-78) U/L Alkaline Phosphatase 86 (45-117) U/L Troponin I < 0.015 (0-0.045) ng/ml Total Protein 6.7 (6.4-8.2) gm/dl Albumin 3.4 (3.4-5.0) gm/dl Globulin 3.3 (2.5-4.0) gm/dl Albumin/Globulin Ratio 1.0 (0.9-2) Urine Color Yellow Urine Appearance Turbid H (Clear) Urine pH 5.5 (4.5-7.5) Ur Specific [place] 1.014 (1.000-1.030) Urine Protein Negative (Negative) Urine Glucose (UA) Negative (Negative) Urine Ketones Negative (Negative) Urine Blood Trace H (Negative) Urine Nitrite Negative (Negative) Urine Bilirubin Negative (Negative) Urine Urobilinogen Negative (Negative) Ur Leukocyte Esterase 3+ H (Negative) Urine WBC (Auto) >30 H (0-5) /hpf Urine RBC (Auto) 0-4 (0-4) /hpf U Hyaline Cast (Auto) 1-5 (0-5) /lpf U Epithel Cells (Auto) 0-5 (0-5) /lpf Urine Bacteria (Auto) Negative (Negative) Urine Yeast Budding H (None Prsent) Influenza Type A (PCR) Neg for Influ A (Neg) Influenza Type B (PCR) Neg for Influ B (Neg) Imaging Data Radiologist's Impression: Radiology results as stated below per my review and the radiologist's interpretation: SINGLE VIEW CHEST CLINICAL HISTORY: Dyspnea. FINDINGS: An AP, portable, upright chest radiograph is compared to chest x-ray and chest CT dated 05/22/2018. The examination is degraded by portable technique and patient rotation. The cardiomediastinal silhouette is unremarkable, noting atherosclerotic calcification of the thoracic aorta enlargement of the central pulmonary arteries indicates pulmonary artery hypertension.. Advanced emphysema and chronic interstitial thickening are similar to previous. Dependent airspace opacities are present at both lung bases. No large pleural effusion is identified. No pneumothorax is seen. The skeletal structures are osteopenic. The bony thorax is grossly intact. Degenerative change and scoliosis are noted in the thoracic spine. IMPRESSION: 1. Advanced emphysema. 2. Bibasilar airspace opacities are nonspecific and could represent atelectasis versus an infectious/inflammatory pneumonitis. Clinical correlation will be required. Electronically signed by: Luciano Prieto M.D. 07/04/2018 3:49 PM ECG Data Attestation: I personally reviewed and interpreted this ECG as follows: Indication: SOB/dyspnea Rate (beats per minute): 61 Rhythm: normal sinus Findings: + other (normal intervals), + T-wave inversion (V2) and + left axis deviation Blood Pressure Blood Pressure Findings: Normal blood pressure Blood Pressure Disposition: further management by hospitalist [facility] Narrative Prior records/ancillary studies reviewed. Triage nursing notes reviewed. The patient is a 68 year old white male with a history COPD, emphysema, 2 L oxygen at night, PTSD, and HTN who presents to the Emergency Room with hypoxia and worsened shortness of breath. Differential diagnosis: Etiologies such as infections, reactive airway disease, pneumonia, pneumothorax , COPD, CHF, cardiac ischemia, pulmonary embolism, musculoskeletal, gastrointestinal, as well as others were entertained. Patient was seen and evaluated the bedside. The patient did present with concern for hypoxia. The patient does have a known history of emphysema. Last smoked 6 years prior. The patient does not complain of any chest pain lower extremity swelling. Patient does complain of exertional dyspnea. No prior history of DVT or PE. Patient had blood work completed along with EKG troponin chest x-ray. Patient' s chest x-ray shows possible atelectasis versus pneumonia. Given his recent hospitalization increasing hypoxia that is requiring oxygen supplementation and his productive sputum we will treat conservatively with antibiotics. The patient was ordered cefepime and Flagyl as the patient has an amoxicillin allergy and would not be able to have Zosyn. Patient's other blood work is fairly unremarkable. Troponin is not elevated. EKG does not show any acute ischemic change. Patient did receive duo nebs, methylprednisolone, and IV fluids. The patient did respond well to this and was satting in the low 90s on 2 L nasal cannula. I did discuss the patient's case with the on-call hospitalist who agreed to further evaluate treat the patient. Patient was admitted to the medicine service. Impression & Plan Respiratory failure with hypoxia, COPD exacerbation, Healthcare-associated pneumonia Discharge Plan Visit Data *Final* Discharge Date/Time: 07/04/18 18:01 Chief Complaint: Shortness of Breath/Dyspnea ED Provider: Edgar Beck Discharge Problem: Respiratory failure with hypoxia, COPD exacerbation, Healthcare-associated pneumonia Patient Disposition: Admitted As Inpatient Discharge Instructions Interventions: ED Discharge Assessment Last Done: 07/04/18 18:01 The scribe's documentation has been prepared under my direction and personally reviewed by me in its entirety. I confirm that the note above accurately reflects all work, treatment, procedures, and medical decision making performed by me.
[2018-07-04 16:36] LABS: Appearance Urine Turbid (Clear); Bacteria Urine Automated Negative (Negative); Bilirubin Urine Negative (Negative); Color Urine Yellow; Epithelial Cell Urine Auto 0-5 /lpf (0-5); Glucose Urine UA Negative (Negative); Ketones Urine Negative (Negative); Leukocyte Esterase Urine 3+ (Negative); Nitrite Urine Negative (Negative); Protein Urine Negative (Negative); Specific Gravity Urine 1.014 (1.000-1.030); Urobilinogen Urine Negative (Negative); WBC Urine Automated >30 /hpf (0-5); pH Urine 5.5 (4.5-7.5)
--- NOTE | 2018-07-04 17:53 | History & Physical Report ---
Date of Service July 04, 2018 Assessment & Plan (1) Acute on chronic respiratory failure with hypoxia: (2) COPD exacerbation: -[facility] -Patient presenting from referral of outpatient [facility] office for evaluation of shortness of breath and hypoxia -Patient well-known to our service for admissions for COPD/pneumonia -In the ED, patient saturating 80% on chronic 2 L of oxygen which greatly improved after nebulizer treatments and IV Solu-Medrol -CXR showing chronic changes; afebrile WBC 11 K -[id number] nebulizers -Continue home medications of Mucinex and Symbicort -S/P Solu-Medrol 125 mg IV in the ED; will continue with Medrol Dosepak starting tomorrow (patient is unable to tolerate prednisone) -S/P cefepime and Flagyl in the ED; will start Levaquin 500 mg p.o. tomorrow (3) HTN (hypertension): -BP controlled, continue diltiazem (4) PTSD (post-traumatic stress disorder): -Continue buspirone, trazodone, sertraline (5) GERD (gastroesophageal reflux disease): -Continue PPI (6) DVT prophylaxis: -SQ Lovenox History of Present Illness Chief Complaint: Shortness of Breath Primary Care Provider: [facility] 68 year old male who presents to the ED with shortness of breath. Patient is well known to our service for admissions for COPD exacerbation and pneumonia in the past, most recently May 2018. Patient reports his symptoms began 2 days ago. He reports increasing shortness of breath and cough productive for yellow sputum. He has noted increase use of rescue inhaler at home. He has not been using his nebulizer. He reports he typically uses 2L of oxygen at night. Patient reports he has "[employer] [facility]" at home that monitors his pulse ox, pulse, and BP daily. When he did his check in today, he received a phone call to be seen in the [place] clinic. He reports that his oxygen level was in the 70s and he was sent to the ED for further evaluation. Patient denies fever and chills. No other sick contacts. He reports some mild chest pain with coughing. No lightheadedness, dizziness, diaphoresis, or syncope. He denies abdominal pain, nausea, vomiting, diarrhea. No urinary symptoms. In the ED, patient was saturating 80% on his chronic 2 L. This improved after 2 nebulizer treatments and IV Solu-Medrol. Influenza PCR is negative. CXR shows chronic changes. Patient was also given IVF, IV cefepime, IV Flagyl. Allergies Allergy/AdvReac Type Severity Reaction Status Date / Time bee venom protein (honey bee) Allergy Severe ANAPHYLAXIS Verified 07/04/18 15:41 pneumococcal vaccine Allergy Severe SWELLING Verified 07/04/18 15:41 Yzlxpct-Rga-Yeg Reductase Allergy Severe CPK'S GO Verified 07/04/18 15:41 Inhibitor THROUGH ROOF amoxicillin Allergy Intermediate FACIAL Verified 07/04/18 15:41 SWELLING (EYES SWELLED SHUT) clavulanic acid Allergy Intermediate FACIAL Verified 07/04/18 15:41 SWELLING (EYES SWELLED SHUT) prednisone AdvReac Severe confusion Verified 07/04/18 15:41 and agitation Home Medications Home Medications Medication Instructions Recorded Confirmed Type buspirone 5 mg PO HS 04/08/18 07/04/18 History cetirizine 10 mg PO DAILY PRN 04/08/18 07/04/18 History guaifenesin [Mucinex] 600 mg PO Q12H 04/08/18 07/04/18 History omeprazole 20 mg PO BID 04/08/18 07/04/18 History sertraline 200 mg PO HS 04/08/18 07/04/18 History tiotropium bromide [Spiriva with 1 cap INHALATION DAILY 04/08/18 07/04/18 History HandiHaler] tramadol 50 mg PO QID PRN 04/08/18 07/04/18 History trazodone 150 mg PO HS 04/08/18 07/04/18 History budesonide-formoterol 2 puff INHALATION Q12H 05/22/18 07/04/18 History diltiazem HCl 120 mg PO DAILY 05/22/18 07/04/18 History albuterol sulfate 2 puff INHALATION Q6H PRN 07/04/18 07/04/18 History albuterol sulfate 2.5 mg INHALATION QID PRN 07/04/18 07/04/18 History finasteride 5 mg PO DAILY 07/04/18 07/04/18 History Past Med/Surg History Surgical History History of extraction of renal calculus (Resolved) History of appendectomy (Resolved) History of tonsillectomy (Resolved) Loss of teeth due to extraction (Chronic) H/O hernia repair S/P arthroscopic surgery of right knee Family History Mother Colon cancer Father FH: kidney cancer Other Cancer Social History marital status: Current Living Situation: Spouse 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 Feels Safe at Home: Yes Smoking Status: Former smoker Cigarettes per Day: 40 pack year hx Hx Alcohol Use: No Hx Substance Use: No Beliefs That Will Affect Care: None Preferred Language: Indonesian Review of Systems ROS per HPI, all other systems reviewed and negative Physical Exam 2 Vital Signs (Past 24 Hours): Last Vital Signs Temp 36.7 C 07/04/18 14:44 Pulse 65 07/04/18 16:01 Resp 20 07/04/18 16:01 BP 115/69 07/04/18 16:01 Pulse Ox 97 07/04/18 16:01 Constitutional: WD/WN, vitals as above Eyes: PERRL, conjunctivae normal, anicteric sclerae ENMT: external ear and nose normal, oropharynx normal Respiratory: normal respiratory effort; no respiratory distress Auscultation: + diminished lung sounds; no crackles, no rhonchi and no wheezes Cardiovascular: Rate/Rhythm: regular rate and regular rhythm Vessels: normal peripheral pulses Extremities: no edema Gastrointestinal (Abdomen): normal bowel sounds, soft, nontender, no hepatosplenomegaly Musculoskeletal: no cyanosis or clubbing, extremities motor strength 5/5 Skin: no rashes, warm and dry Neurologic: PERRL, EOMI, accommodation nl, no face palsy, no dysarthria Psychiatric: A+Ox3, euthymic affect Results & Data Laboratory Results Laboratory Last Values WBC 11.17 K/uL (4.8-10.8) H 07/04/18 15:17 RBC 4.54 M/uL (4.7-6.1) L 07/04/18 15:17 Hgb 13.2 g/dL (14.0-18.0) L 07/04/18 15:17 Hct 40.8 % (42-52) L 07/04/18 15:17 MCV 89.9 fL (80-100) 07/04/18 15:17 MCH 29.1 pg (25-34) 07/04/18 15:17 MCHC 32.4 g/dL (32-36) 07/04/18 15:17 RDW Std Deviation 51.4 fL (36.4-46.3) H 07/04/18 15:17 RDW Coeff of Ren 15.5 % (11.5-14.5) H 07/04/18 15:17 Plt Count 226 K/uL (130-400) 07/04/18 15:17 MPV 8.9 fL (7.4-10.4) 07/04/18 15:17 Immature Gran % (Auto) 0.3 % 07/04/18 15:17 Neut % (Auto) 73.8 % 07/04/18 15:17 Lymph % (Auto) 16.4 % 07/04/18 15:17 [place] % (Auto) 8.7 % 07/04/18 15:17 Eos % (Auto) 0.6 % 07/04/18 15:17 Baso % (Auto) 0.2 % 07/04/18 15:17 Immature Gran # (Auto) 0.03 K/uL (0.00-0.02) H 07/04/18 15:17 Neut # (Auto) 8.25 K/uL (1.4-6.5) H 07/04/18 15:17 Lymph # (Auto) 1.83 K/uL (1.2-3.4) 07/04/18 15:17 [place] # (Auto) 0.97 K/uL (0.11-0.59) H 07/04/18 15:17 Eos # (Auto) 0.07 K/uL (0-0.5) 07/04/18 15:17 Baso # (Auto) 0.02 K/uL (0-0.2) 07/04/18 15:17 PT 10.7 Seconds (9.0-12.0) 07/04/18 15:17 INR 1.1 (0.9-1.1) 07/04/18 15:17 APTT 34.8 Seconds (21.0-31.0) H 07/04/18 15:17 PTT Ratio 1.3 07/04/18 15:17 VBG pH 7.37 (7.36-7.41) 07/04/18 15:17 VBG pCO2 53 mmHg (38-50) H 07/04/18 15:17 VBG pO2 41 mmHg 07/04/18 15:17 VBG HCO3 30 mmol/L 07/04/18 15:17 VBG O2 Saturation 73.6 % 07/04/18 15:17 VBG Base Excess 3.4 mEq/L 07/04/18 15:17 Barometric Pressure 732.9 mm/Hg 07/04/18 15:17 Sodium 137 mmol/L (136-145) 07/04/18 15:17 Potassium 4.0 mmol/L (3.5-5.1) 07/04/18 15:17 Chloride 103 mmol/L (98-107) 07/04/18 15:17 Carbon Dioxide 27 mmol/L (21-32) 07/04/18 15:17 Anion Gap 8.0 (3-11) 07/04/18 15:17 BUN 13 mg/dl (7-18) 07/04/18 15:17 Creatinine 1.05 mg/dl (0.6-1.4) 07/04/18 15:17 Est Cr Clr Drug Dosing 69.5 ml/min 07/04/18 15:17 Est GFR ( Amer) 84.1 07/04/18 15:17 Est GFR (Non-Af Amer) 72.6 07/04/18 15:17 BUN/Creatinine Ratio 12.7 (10-20) 07/04/18 15:17 Glucose 96 mg/dl (70-99) 07/04/18 15:17 Calcium 8.5 mg/dl (8.5-10.1) 07/04/18 15:17 Total Bilirubin 0.4 mg/dl (0.2-1) 07/04/18 15:17 AST 13 U/L (15-37) L 07/04/18 15:17 ALT 16 U/L (12-78) 07/04/18 15:17 Alkaline Phosphatase 86 U/L (45-117) 07/04/18 15:17 Troponin I < 0.015 ng/ml (0-0.045) 07/04/18 15:17 Total Protein 6.7 gm/dl (6.4-8.2) 07/04/18 15:17 Albumin 3.4 gm/dl (3.4-5.0) 07/04/18 15:17 Globulin 3.3 gm/dl (2.5-4.0) 07/04/18 15:17 Albumin/Globulin Ratio 1.0 (0.9-2) 07/04/18 15:17 Urine Color Yellow 07/04/18 16:20 Urine Appearance Turbid (Clear) H 07/04/18 16:20 Urine pH 5.5 (4.5-7.5) 07/04/18 16:20 Ur Specific [place] 1.014 (1.000-1.030) 07/04/18 16:20 Urine Protein Negative (Negative) 07/04/18 16:20 Urine Glucose (UA) Negative (Negative) 07/04/18 16:20 Urine Ketones Negative (Negative) 07/04/18 16:20 Urine Blood Trace (Negative) H 07/04/18 16:20 Urine Nitrite Negative (Negative) 07/04/18 16:20 Urine Bilirubin Negative (Negative) 07/04/18 16:20 Urine Urobilinogen Negative (Negative) 07/04/18 16:20 Ur Leukocyte Esterase 3+ (Negative) H 07/04/18 16:20 Urine WBC (Auto) >30 /hpf (0-5) H 07/04/18 16:20 Urine RBC (Auto) 0-4 /hpf (0-4) 07/04/18 16:20 U Hyaline Cast (Auto) 1-5 /lpf (0-5) 07/04/18 16:20 U Epithel Cells (Auto) 0-5 /lpf (0-5) 07/04/18 16:20 Urine Bacteria (Auto) Negative (Negative) 07/04/18 16:20 Urine Yeast Budding (None Prsent) H 07/04/18 16:20 Influenza Type A (PCR) Neg for Influ A (Neg) 07/04/18 15:40 Influenza Type B (PCR) Neg for Influ B (Neg) 07/04/18 15:40 Diagnostic Findings CXR IMPRESSION: 1. Advanced emphysema. 2. Bibasilar airspace opacities are nonspecific and could represent atelectasis versus an infectious/inflammatory pneumonitis. Clinical correlation will be required. Code Status & VTE Plan VTE Prophylaxis Plan VTE Prophylaxis will be ordered: Yes Supervising Physician Co-Signing Physician Notes Patient is a 68-year-old male with history of COPD, chronic oxygen dependency and other problems presents with history of worsening shortness of breath, productive cough with yellow expectoration and need for increased use of rescue inhaler since 2 days duration. He was found to be Hypoxic today. CXR is suggestive of advanced COPD and bibasilar opacities suggestive of possible infectious/inflammatory pneumonitis. Negative influenza screen. He denied any history of fever, chills but admits to have mild chest pain with cough. He quit smoking few yrs ago. On Exam patient is chronic ill appearing, Lungs decreased Breath sounds, CTA, S1, S2, No murmur, No focal deficits, No pedal edema. Patient is admitted for mild COPD exacerbation, hypoxia and possible penumonia. Plan to start on IV Abx, Nebs, continue home inhalers. UA abnormal--Urine culture obtained. Patient denies any dysuria. Patient has Intolerance to Prednisone and so will be started on methylprednisolone. Oxygen support as needed. Check Procalcitonin. I personally reviewed the record. Patient is interviewed and examined at bedside. Patient's care is coordinated with Molly Card [facility]. Please refer to the documentation above for details of patient's presentation and for discussion of other issues.
[2018-07-04] MEDS ORDERED: TRAMADOL HCL 50 MG TABLET PO PRN (18:44)
[2018-07-04] MEDS ORDERED: CETIRIZINE HCL 10 MG TABLET PO PRN (18:44)
[2018-07-04] MEDS ORDERED: ACETAMINOPHEN 325 MG TAB PO PRN (18:44)
[2018-07-04] MEDS: ALBUT/IPRATROP 3MG/0.5MG NEB 3 ML VIAL NEB SCH (20:18)
[2018-07-04] MEDS ORDERED: ENOXAPARIN INJ 40 MG/0.4 ML SYR SQ SCH (21:00)
[2018-07-04] MEDS ORDERED: TRAZODONE HCL 50 MG TAB PO SCH (21:00)
[2018-07-04] MEDS ORDERED: SERTRALINE HCL 100 MG TABLET PO SCH (21:00)
[2018-07-04] MEDS: BUDESONIDE/FORMOTEROL FUMARATE 160/4.5 60 PUFFS/INHALER INH SCH (22:11)
[2018-07-04] MEDS: guaiFENesin 600 MG TABCR PO SCH (22:12)
[2018-07-04] MEDS: PANTOprazole 40 MG TAB PO SCH (22:12)
[2018-07-05] MEDS ORDERED: methylPREDNISolone 4 MG TAB PO SCH ×3 (07:00→13:00)
[2018-07-05] MEDS: ALBUT/IPRATROP 3MG/0.5MG NEB 3 ML VIAL NEB SCH ×2 (07:39→10:53)
[2018-07-05 08:47] LABS: Hematocrit (blood only) 37.6 % (42-52); Hemoglobin 12.1 g/dL (14.0-18.0); Mean Corpuscular Hgb Conc 32.2 g/dL (32-36); Mean Corpuscular Volume 89.3 fL (80-100); Mean Platelet Volume 9.5 fL (7.4-10.4); Platelet Count 228 K/uL (130-400); RDW Coefficient of Variation 15.2 % (11.5-14.5); Red Blood Count 4.21 M/uL (4.7-6.1); White Blood Count 9.85 K/uL (4.8-10.8)
[2018-07-05] MEDS: PANTOprazole 40 MG TAB PO SCH (09:00)
[2018-07-05] MEDS: guaiFENesin 600 MG TABCR PO SCH (09:00)
[2018-07-05] MEDS ORDERED: dilTIAZem ER 120 MG CAPCR PO SCH (09:00)
[2018-07-05] MEDS: BUDESONIDE/FORMOTEROL FUMARATE 160/4.5 60 PUFFS/INHALER INH SCH (09:00)
[2018-07-05] MEDS ORDERED: FINASTERIDE 5 MG TAB PO SCH (09:00)
[2018-07-05] MEDS ORDERED: methylPREDNISolone 4 MG TAB, 6 DAY TAPER PO SCH (09:00)
[2018-07-05 09:11] LABS: BUN Creatinine Ratio 12.3 (10-20); Calcium 9.1 mg/dl (8.5-10.1); Creatinine Clr Calc Pharmacy 71.6 ml/min; Est GFR (African American) 87.1; Est GFR (Non-African American) 75.2; Potassium 4.6 mmol/L (3.5-5.1)
[2018-07-05] MEDS ORDERED: ALBUTEROL 0.083% NEBU SOLN 3 ML VIAL NEB STA (09:59)
[2018-07-05] MEDS ORDERED: levoFLOXacin 500 MG TAB PO SCH ×2 (11:00→12:15)
--- NOTE | 2018-07-05 13:40 | Hospitalist Progress Note ---
Date of Service July 05, 2018 Assessment & Plan (1) Acute on chronic respiratory failure with hypoxia: (2) COPD exacerbation: -Admit to [facility] -Patient presenting from referral of outpatient [facility] office for evaluation of shortness of breath and hypoxia -In the ED, patient saturating 80% on chronic 2 L of oxygen which greatly improved after nebulizer treatments and IV Solu-Medrol -CXR showing chronic changes; afebrile WBC 11 K -S/P Solu-Medrol 125 mg IV in the ED -S/P cefepime and Flagyl in the ED 07/05/18: transitioned to Levaquin 500 mg, and medrol dose pack, WBC normalized, saturating high 80s to low 90s on nasal cannula at 2 liter/min, doing well between 2 liters to 3.5 liters/min, no wheezing, no acute coughing, patient plans on continuing medications at home including nebulizers if needed and follow up with [facility] Patient should follow up with primary care doctor at [facility] Patient should take medrol pack A Medrol Dose Pack contains 21 4-milligram pills that last for six days. The patient starts with six pills (24 milligrams) and takes one fewer each day, until the pack is finished Patient started medrol pack on 07/05/18 while in the hospital and is being discharged with enough pills to last to Saturday07/07/18 for which he can use the prescription with [facility] Patient given prescription for Levofloxacin daily for 7 more days and the last day is July 12, 2018 Patient given supply of Levofloxacin to last to Saturday07/07/18 for which he can use the prescription with [facility] (3) HTN (hypertension): -BP controlled, continue diltiazem (4) PTSD (post-traumatic stress disorder): -Continue buspirone, trazodone, sertraline (5) GERD (gastroesophageal reflux disease): -Continue PPI (6) DVT prophylaxis: -SQ Lovenox Discharge Instructions Patient should follow up with primary care doctor at [facility] Patient should take medrol pack A Medrol Dose Pack contains 21 4-milligram pills that last for six days. The patient starts with six pills (24 milligrams) and takes one fewer each day, until the pack is finished Patient started medrol pack on 07/05/18 while in the hospital and is being discharged with enough pills to last to Saturday07/07/18 for which he can use the prescription with [facility] Patient given prescription for Levofloxacin daily for 7 more days and the last day is July 12, 2018 Patient given supply of Levofloxacin to last to Saturday07/07/18 for which he can use the prescription with [facility] Discharge diagnosis Acute and chronic respiratory failure with hypoxia, COPD exacerbation, Essential hypertension, History of PTSD (Post-Traumatic Stress Disorder) Subjective transitioned to Levaquin 500 mg, and medrol dose pack, saturating high 80s to low 90s on nasal cannula at 2 liter/min, doing well between 2 liters to 3.5 liters/min, no wheezing, no acute coughing, patient plans on continuing medications at home including nebulizers if needed and follow up with [facility] Patient denies acute shortness of breath. reports that his breathing is baseline despite high oxygen requirements. he says he can adjust this at home denies chest pain or palpitations. denies abdominal pain or vomiting. denies fevers. denies emotional distress WBC normalized Physical Exam 2 Vital Signs (Past 24 Hours): Last Vital Signs Temp 36.8 C 07/05/18 07:11 Pulse 73 07/05/18 10:54 Resp 18 07/05/18 10:54 BP 143/73 H 07/05/18 07:11 Pulse Ox 87 L 07/05/18 10:54 Constitutional: WD/WN, vitals as above Eyes: PERRL, conjunctivae normal, anicteric sclerae ENMT: external ear and nose normal, oropharynx normal Neck: trachea midline, no thyromegaly Respiratory: normal respiratory effort, lungs clear to auscultation (on nasal cannula 3.5 liters/min) Cardiovascular: RRR, no murmur, no edema Gastrointestinal (Abdomen): normal bowel sounds, soft, nontender, no hepatosplenomegaly Musculoskeletal: no cyanosis or clubbing, extremities motor strength 5/5 Head/Neck/Chest: normocephalic and head atraumatic Neurologic: PERRL, EOMI, accommodation nl, no face palsy, no dysarthria CN' s II-XI intact bilaterally Psychiatric: A+Ox3, euthymic affect
--- NOTE | 2018-07-05 13:51 | Discharge Summary ---
Date of Service July 05, 2018 Admission HPI Per Admitting Provider 68 year old male who presents to the ED with shortness of breath. Patient is well known to our service for admissions for COPD exacerbation and pneumonia in the past, most recently May 2018. Patient reports his symptoms began 2 days ago. He reports increasing shortness of breath and cough productive for yellow sputum. He has noted increase use of rescue inhaler at home. He has not been using his nebulizer. He reports he typically uses 2L of oxygen at night. Patient reports he has "[facility]" at home that monitors his pulse ox, pulse, and BP daily. When he did his check in today, he received a phone call to be seen in the [facility] clinic. He reports that his oxygen level was in the 70s and he was sent to the ED for further evaluation. Patient denies fever and chills. No other sick contacts. He reports some mild chest pain with coughing. No lightheadedness, dizziness, diaphoresis, or syncope. He denies abdominal pain, nausea, vomiting, diarrhea. No urinary symptoms. In the ED, patient was saturating 80% on his chronic 2 L. This improved after 2 nebulizer treatments and IV Solu-Medrol. Influenza PCR is negative. CXR shows chronic changes. Patient was also given IVF, IV cefepime, IV Flagyl. Admission Exam Per Admitting Provider Constitutional: WD/WN, vitals as above Eyes: PERRL, conjunctivae normal, anicteric sclerae ENMT: external ear and nose normal, oropharynx normal Respiratory: normal respiratory effort; no respiratory distress Auscultation: + diminished lung sounds; no crackles, no rhonchi and no wheezes Cardiovascular: Rate/Rhythm: regular rate and regular rhythm Vessels: normal peripheral pulses Extremities: no edema Gastrointestinal (Abdomen): normal bowel sounds, soft, nontender, no hepatosplenomegaly Musculoskeletal: no cyanosis or clubbing, extremities motor strength 5/5 Skin: no rashes, warm and dry Neurologic: PERRL, EOMI, accommodation nl, no face palsy, no dysarthria Psychiatric: A+Ox3, euthymic affect Principal Diagnosis Acute and chronic respiratory failure with hypoxia, COPD exacerbation, Essential hypertension, History of PTSD (Post-Traumatic Stress Disorder) Discharge Exam Constitutional WD/WN, vitals as above Eyes PERRL, conjunctivae normal, anicteric sclerae ENMT external ear and nose normal, oropharynx normal Neck trachea midline, no thyromegaly Respiratory normal respiratory effort, lungs clear to auscultation (on nasal cannula 3.5 liters/min) Cardiovascular RRR, no murmur, no edema Gastrointestinal (Abdomen) normal bowel sounds, soft, nontender, no hepatosplenomegaly Musculoskeletal no cyanosis or clubbing, extremities motor strength 5/5 Head/Neck/Chest: normocephalic and head atraumatic Neurologic PERRL, EOMI, accommodation nl, no face palsy, no dysarthria CN's II-XI intact bilaterally Psychiatric A+Ox3, euthymic affect Discharge Data Allergies Allergy/AdvReac Type Severity Reaction Status Date / Time bee venom protein (honey bee) Allergy Severe ANAPHYLAXIS Verified 07/04/18 15:41 pneumococcal vaccine Allergy Severe SWELLING Verified 07/04/18 15:41 Mfxswlz-Qap-Nvn Reductase Allergy Severe CPK'S GO Verified 07/04/18 15:41 Inhibitor THROUGH ROOF amoxicillin Allergy Intermediate FACIAL Verified 07/04/18 15:41 SWELLING (EYES SWELLED SHUT) clavulanic acid Allergy Intermediate FACIAL Verified 07/04/18 15:41 SWELLING (EYES SWELLED SHUT) prednisone AdvReac Severe confusion Verified 07/04/18 15:41 and agitation Consultations 07/04/18 16:33 ED Decision to Admit Stat Hospital Course (1) Acute on chronic respiratory failure with hypoxia: (2) COPD exacerbation: -Admit to [facility] -Patient presenting from referral of outpatient [facility] office for evaluation of shortness of breath and hypoxia -In the ED, patient saturating 80% on chronic 2 L of oxygen which greatly improved after nebulizer treatments and IV Solu-Medrol -CXR showing chronic changes; afebrile WBC 11 K -S/P Solu-Medrol 125 mg IV in the ED -S/P cefepime and Flagyl in the ED 07/05/18: transitioned to Levaquin 500 mg, and medrol dose pack, WBC normalized, saturating high 80s to low 90s on nasal cannula at 2 liter/min, doing well between 2 liters to 3.5 liters/min, no wheezing, no acute coughing, patient plans on continuing medications at home including nebulizers if needed and follow up with AR and [facility] tele-health Patient should follow up with primary care doctor at [facility] Patient should take medrol pack A Medrol Dose Pack contains 21 4-milligram pills that last for six days. The patient starts with six pills (24 milligrams) and takes one fewer each day, until the pack is finished Patient started medrol pack on 07/05/18 while in the hospital and is being discharged with enough pills to last to Saturday07/07/18 for which [facility] Patient given prescription for Levofloxacin daily for 7 more days and the last day is July 12, 2018 Patient given supply of Levofloxacin to last to Saturday07/07/18 for which he can use the prescription with [facility] (3) HTN (hypertension): -BP controlled, continue diltiazem (4) PTSD (post-traumatic stress disorder): -Continue buspirone, trazodone, sertraline (5) GERD (gastroesophageal reflux disease): -Continue PPI (6) DVT prophylaxis: -SQ Lovenox Discharge Instructions Patient should follow up with primary care doctor at [facility] Patient should take medrol pack A Medrol Dose Pack contains 21 4-milligram pills that last for six days. The patient starts with six pills (24 milligrams) and takes one fewer each day, until the pack is finished Patient started medrol pack on 07/05/18 while in the hospital and is being discharged with enough pills to last to Saturday07/07/18 for which [facility] can [facility] Patient given prescription for Levofloxacin daily for 7 more days and the last day is July 12, 2018 Patient given supply of Levofloxacin to last to Saturday07/07/18 for which he can [facility] Discharge diagnosis Acute and chronic respiratory failure with hypoxia, COPD exacerbation, Essential hypertension, History of PTSD (Post-Traumatic Stress Disorder) Total Time Total Time Spent Total Time Spent (In Minutes): 40 minutes Total Time Includes: Examination of the Patient, Discharge Planning and Medication Reconciliation Discharge Plan Discharge Items Patient Disposition: Home - Self-Care Reason For Visit: COPD EXACERBATION Discharge Diagnosis: Acute and chronic respiratory failure with hypoxia, COPD exacerbation, Essential hypertension, History of PTSD (Post-Traumatic Stress Disorder) Condition: Good Discharge Goals: Improve disease control Activity: Resume your previous activity Non-emergency contact: Primary Care Provider Call non-emergency contact if: you have any medication questions Diet: Regular Addtl Provider Instructions: Discharge Instructions Patient should follow up with primary care doctor at [facility] Patient should take medrol pack A Medrol Dose Pack contains 21 4-milligram pills that last for six days. The patient starts with six pills (24 milligrams) and takes one fewer each day, until the pack is finished Patient started medrol pack on 07/05/18 while in the hospital and is being discharged with enough pills to last to Saturday07/07/18 for which he can use the prescription with [facility] Patient given prescription for Levofloxacin daily for 7 more days and the last day is July 12, 2018 Patient given supply of Levofloxacin to last to Saturday07/07/18 for which he can use the prescription with [facility] associated [facility] Prescriptions: New levofloxacin 500 mg Tablet 500 mg PO DAILY@1100 7 Days Qty: 7 RF: 0 methylprednisolone [Medrol (Wilman)] 4 mg tablets,dose pack 4 mg PO .as instructed 6 Days Qty: 21 RF: 0 Continue diltiazem HCl 120 mg Capsule,Extended Release 24 Hr 120 mg PO DAILY RF: 0 budesonide-formoterol 160-4.5 mcg/actuation Hfa Aerosol Inhaler 2 puff INHALATION Q12H RF: 0 albuterol sulfate 2.5 mg /3 mL (0.083 %) Solution For Nebulization 2.5 mg INHALATION QID PRN (Reason: Shortness Of Breath) RF: 0 albuterol sulfate 90 mcg/actuation Hfa Aerosol Inhaler 2 puff INHALATION Q6H PRN (Reason: shortness of breath) RF: 0 finasteride 5 mg Tablet 5 mg PO DAILY RF: 0 buspirone 5 mg Tablet 5 mg PO HS RF: 0 cetirizine 10 mg Tablet 10 mg PO DAILY PRN (Reason: Allergy Symptoms) RF: 0 sertraline 100 mg Tablet 200 mg PO HS RF: 0 tramadol 50 mg Tablet 50 mg PO QID PRN (Reason: Pain) RF: 0 trazodone 150 mg Tablet 150 mg PO HS RF: 0 omeprazole 20 mg Capsule,Delayed Release(Dr/Ec) 20 mg PO BID RF: 0 tiotropium bromide [Spiriva with HandiHaler] 18 mcg Capsule, W/Inhalation Device 1 cap INHALATION DAILY RF: 0 Discontinued guaifenesin [Mucinex] 600 mg Tablet Extended Release 12hr 600 mg PO Q12H RF: 0 Stand-Alone Forms: [facility] Discharge Orders: Discharge Order (Routine); Ordered 07/05/18 Ordered By: Markos Bains Admission Data Admit Date/Time: 07/04/18 17:19 Attending Provider: Markos Bains Admit Provider: Tino Regan Primary Care Provider: PCP,MAXIM Other Providers: Tino Regan Service: Medical Other Pending Studies at Discharge: No
[2018-07-06] MEDS ORDERED: methylPREDNISolone 4 MG TAB PO SCH ×2 (07:00→21:00)
[2018-07-07] MEDS ORDERED: methylPREDNISolone 4 MG TAB PO SCH (07:00)
[2018-07-08] MEDS ORDERED: methylPREDNISolone 4 MG TAB PO SCH (07:00)
[2018-07-09] MEDS ORDERED: methylPREDNISolone 4 MG TAB PO SCH (07:00)
[2018-07-10] MEDS ORDERED: methylPREDNISolone 4 MG TAB PO SCH (07:00)
== END 2018-07-05 15:00 | disposition home or self-care (01) ==
LOC: 4W 14:33 → ED 14:33 → 4W 18:01

== ENCOUNTER 2018-08-22 14:25 | Inpatient (IN) ==
[2018-08-22] MEDS ORDERED: ALBUT/IPRATROP 3MG/0.5MG NEB 3 ML VIAL NEB STA ×2 (14:57→17:09)
[2018-08-22] MEDS ORDERED: methylPREDNISolone 125 MG/2 ML VIAL IV STA (14:57)
[2018-08-22] MEDS ORDERED: SODIUM CHLORIDE 0.9% 500 ML IV SCH (15:00)
--- NOTE | 2018-08-22 15:07 | Emergency Department Note ---
Entered by Shilpa Masters acting as a scribe for Reinaldo Gallegos DO History of Present Illness General Chief complaint: Shortness of Breath/Dyspnea Stated complaint: SHORTNESS OF BREATH Time Seen by Provider: 08/22/18 14:41 Source: patient History of Present Illness Provider complaint: shortness of breath Onset (ago): hour(s) (today) Location: chest Maximum Pain Intensity: 0 Quality: + other (shortness of breath ) Associated symptoms: + denies other symptoms (denies swelling in his legs ) and + cough; no chest pain and no fever/chills The patient is a 68 year old male who presents to the Emergency Room with complaints of shortness of breath today. The patient states that he has TeleHealth through the [place] that monitors his BP, pulse, and pulse oximetry. He states that his pulse ox was 74 this morning, did a nebulizer treatment, and [facility] He states that he was referred here. He denies having chest pain, swelling in his legs, and a fever. The patient states that he has had a productive cough with green and yellow phlegm. The patient states that he has had pneumonia 6 times in the last 18 months and also reports that he has COPD. He states that he no longer smokes and states that he normally wears 2L of Oxygen. The patient does report falling 3 weeks ago and states that he hit his chest but did not hit his head. Home Medications Home Medications Medication Instructions Recorded Confirmed Type Spiriva with HandiHaler 1 cap INHALATION DAILY 04/08/18 08/22/18 History buspirone 5 mg PO HS 04/08/18 08/22/18 History cetirizine 10 mg PO DAILY PRN 04/08/18 08/22/18 History omeprazole 20 mg PO BID 04/08/18 08/22/18 History sertraline 200 mg PO HS 04/08/18 08/22/18 History trazodone 150 mg PO HS 04/08/18 08/22/18 History budesonide-formoterol 2 puff INHALATION Q12H 05/22/18 08/22/18 History diltiazem HCl 120 mg PO DAILY 05/22/18 08/22/18 History albuterol sulfate 2 puff INHALATION Q6H PRN 07/04/18 08/22/18 History albuterol sulfate 2.5 mg INHALATION QID PRN 07/04/18 08/22/18 History finasteride 5 mg PO DAILY 07/04/18 08/22/18 History budesonide-formoterol [Symbicort] 2 puff INHALATION BID 08/22/18 08/22/18 History epinephrine [EpiPen] 0.3 mg IM Q3H PRN 08/22/18 08/22/18 History guaifenesin 10 ml PO Q6H PRN 08/22/18 08/22/18 History guaifenesin 400 mg PO BID 08/22/18 08/22/18 History Allergies Allergy/AdvReac Type Severity Reaction Status Date / Time bee venom protein (honey bee) Allergy Severe ANAPHYLAXIS Verified 08/22/18 17:55 pneumococcal vaccine Allergy Severe SWELLING Verified 08/22/18 17:55 Nrcshgr-Wte-Cmo Reductase Allergy Severe CPK'S GO Verified 08/22/18 17:55 Inhibitor THROUGH ROOF amoxicillin Allergy Intermediate FACIAL Verified 08/22/18 17:55 SWELLING (EYES SWELLED SHUT) clavulanic acid Allergy Intermediate FACIAL Verified 08/22/18 17:55 SWELLING (EYES SWELLED SHUT) prednisone AdvReac Severe confusion Verified 08/22/18 17:55 and agitation Past Med/Surg History Medical History History of tobacco abuse (Chronic) HTN (hypertension) (Chronic) GERD (gastroesophageal reflux disease) (Chronic) PTSD (post-traumatic stress disorder) (Chronic) COPD (chronic obstructive pulmonary disease) with emphysema (Chronic) Kidney stones (Resolved) Osteoarthritis (Chronic) 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) Pneumonia (Resolved) Thrombophlebitis arm (Resolved) Depression Emphysema/COPD PTSD (post-traumatic stress disorder) Surgical History History of extraction of renal calculus (Resolved) History of appendectomy (Resolved) History of tonsillectomy (Resolved) Loss of teeth due to extraction (Chronic) H/O hernia repair S/P arthroscopic surgery of right knee Family History Mother Colon cancer Father FH: kidney cancer Other Cancer Social History Preferred Language: Kinyarwanda Communication Ability: Effective [employer] 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 and A total of 10 systems reviewed and were otherwise negative Physical Exam Vital Signs Vital Signs - 24 hr 08/22/18 16:35 08/22/18 17:35 08/22/18 18:30 Temperature Temperature Source Pulse Rate [Right Finger] 65 70 62 Pulse Rhythm [Right Finger] Regular Regular Pulse Strength [Right Finger] Normal Normal Respiratory Rate 18 18 18 Respiratory Effort / Characteristics Non-Labored Non-Labored Respiratory Depth Normal Normal Respiratory Pattern Regular Regular Blood Pressure [Left Arm] Blood Pressure [Right Arm] 136/84 146/102 H 138/76 Blood Pressure Mean [Left Arm] Blood Pressure Mean [Right Arm] 101 116 96 Blood Pressure Position [Left Arm] Blood Pressure Position [Right Arm] Lying Lying Pulse Oximetry 94 93 98 Oxygen Delivery Method Nasal Cannula Nasal Cannula Nasal Cannula Oxygen Flow Rate 3 3 3 08/22/18 21:20 08/22/18 21:21 08/23/18 00:12 Temperature 36.6 C 36.6 C Temperature Source Oral Oral Pulse Rate [Right Finger] 59 L 74 Pulse Rhythm [Right Finger] Pulse Strength [Right Finger] Respiratory Rate 20 18 Respiratory Effort / Characteristics Non-Labored Spontaneous Non-Labored Spontaneous Respiratory Depth Normal Normal Respiratory Pattern Regular Regular Blood Pressure [Left Arm] Blood Pressure [Right Arm] 136/74 129/68 Blood Pressure Mean [Left Arm] Blood Pressure Mean [Right Arm] 94 88 Blood Pressure Position [Left Arm] Blood Pressure Position [Right Arm] Lying Lying Pulse Oximetry 94 93 Oxygen Delivery Method Nasal Cannula Nasal Cannula Oxygen Flow Rate 4 4 4 08/23/18 07:34 Temperature 36.8 C Temperature Source Oral Pulse Rate [Right Finger] 59 L Pulse Rhythm [Right Finger] Pulse Strength [Right Finger] Respiratory Rate 18 Respiratory Effort / Characteristics Respiratory Depth Respiratory Pattern Blood Pressure [Left Arm] 122/61 Blood Pressure [Right Arm] Blood Pressure Mean [Left Arm] 81 Blood Pressure Mean [Right Arm] Blood Pressure Position [Left Arm] Lying Blood Pressure Position [Right Arm] Pulse Oximetry 95 Oxygen Delivery Method Nasal Cannula Oxygen Flow Rate 4 GENERAL: Patient is awake alert in no acute distress patient is resting comfortably and showing no signs of anxiety EYES: The conjunctivae are clear. The pupils are round and reactive. EARS, NOSE, MOUTH AND THROAT: The nose is without any evidence of any deformity. Mucous membranes are moist tongue is midline NECK: The neck is nontender and supple. RESPIRATORY: Diminished breath sounds are noted throughout. There were expiratory wheezes noted in both upper lung cisneros. There was mild conversational dyspnea appreciated. CARDIOVASCULAR: Regular rate and rhythm noted there no murmurs rubs or gallops normal S1 normal S2 GASTROINTESTINAL: The abdomen is soft. Bowel sounds are present in all quadrants. Abdomen is nontender MUSCULOSKELETAL/EXTREMITIES: There is no evidence of gross deformity full range of motion is noted in the hips and shoulders SKIN: There is no obvious evidence of any rash. There are no petechiae, pallor or cyanosis noted. There was no calf tenderness. NEUROLOGIC: Patient is awake alert and oriented x3. Strength is symmetric dumont llar reflexes are 2+ bilaterally Course 1457: Past medical records reviewed. The patient was evaluated in room C4, and a complete history and physical examination were performed. 1702: I updated the patient who verbalized agreement and understanding of the treatment plan. 1711: I discussed the patient's case with Dr. Albert who will evaluate the patient for further management. Consultations Consultation #1: Dr. Albert Time: 17:11 Administered Medications Budesonide/Formoterol Fumarate (Symbicort 160mcg/4.5mcg) 2 puffs INH Q12H PEARL Stop: 09/21/18 19:55 Last Admin: 08/23/18 07:42 Dose: 2 puffs Documented by: [id number] Admin: 08/22/18 21:46 Dose: 2 puffs Documented by: [id number] Buspirone HCl (Buspar) 5 mg PO HS PEARL Stop: 09/21/18 20:59 Last Admin: 08/22/18 21:47 Dose: 5 mg Documented by: [id number] Diltiazem HCl (Tiazac) 120 mg PO DAILY PEARL Stop: 09/22/18 08:59 Last Admin: 08/23/18 07:44 Dose: 120 mg Documented by: [id number] Enoxaparin Sodium (Lovenox) 40 mg SQ Q24H PEARL Stop: 09/21/18 20:59 Last Admin: 08/22/18 21:48 Dose: 40 mg Documented by: [id number] Finasteride (Proscar) 5 mg PO DAILY PEARL Stop: 09/22/18 08:59 Last Admin: 08/23/18 07:43 Dose: 5 mg Documented by: [id number] Methylprednisolone 40 mg/ (Syringe) 0.64 mls @ 1.5 mls/min IV Q8H PEARL Stop: 09/22/18 00:00 Last Admin: 08/23/18 07:42 Dose: 1.5 mls/min Documented by: [id number] Admin: 08/22/18 23:23 Dose: 1.5 mls/min Documented by: [id number] Levofloxacin (Levaquin) 500 mg PO DAILY@1100 PEARL Stop: 08/30/18 10:59 Last Admin: 08/23/18 11:13 Dose: 500 mg Documented by: [id number] Admin: 08/23/18 11:13 Dose: 500 mg Documented by: [id number] Pantoprazole Sodium (Protonix) 40 mg PO BID PEARL Stop: 09/21/18 20:59 Last Admin: 08/23/18 07:43 Dose: 40 mg Documented by: [id number] Admin: 08/22/18 21:48 Dose: 40 mg Documented by: [id number] Sertraline HCl (Zoloft) 200 mg PO HS PEARL Stop: 09/21/18 20:59 Last Admin: 08/22/18 21:48 Dose: 200 mg Documented by: [id number] Tiotropium [place] (Spiriva) 1 puffs INH DAILY PEARL Stop: 09/22/18 08:59 Last Admin: 08/23/18 09:04 Dose: 1 puffs Documented by: [id number] Trazodone HCl (Desyrel) 150 mg PO HS PEARL Stop: 09/21/18 20:59 Last Admin: 08/22/18 21:47 Dose: 150 mg Documented by: [id number] Discontinued Medications Albuterol (Duoneb) 3 ml NEB NOW STA Stop: 08/22/18 14:58 Last Admin: 08/22/18 15:22 Dose: 3 ml Documented by: [id number] Albuterol (Duoneb) 3 ml NEB NOW STA Stop: 08/22/18 17:10 Last Admin: 08/22/18 17:40 Dose: 3 ml Documented by: [id number] Sodium Chloride (Nss) 500 mls @ 999 mls/hr IV .Q31M PEARL Stop: 08/22/18 15:30 Last Infusion: 08/22/18 16:34 Dose: 0 mls/hr Documented by: [id number] Admin: 08/22/18 15:19 Dose: 999 mls/hr Documented by: [id number] Levofloxacin/Dextrose (Levaquin/D5w) 750 mg in 150 mls @ 100 mls/hr IV NOW STA Stop: 08/22/18 18:37 Last Infusion: 08/22/18 19:05 Dose: 0 mls/hr Documented by: [id number] Admin: 08/22/18 17:39 Dose: 100 mls/hr Documented by: [id number] Sodium Chloride (Nss 1000ml) 1,000 mls @ 999 mls/hr IV .Q1H1M ONE Stop: 08/22/18 18:08 Last Infusion: 08/22/18 19:05 Dose: 0 mls/hr Documented by: [id number] Admin: 08/22/18 17:41 Dose: 999 mls/hr Documented by: [id number] Methylprednisolone (Solumedrol) 125 mg IV NOW STA Stop: 08/22/18 14:58 Last Admin: 08/22/18 15:19 Dose: 125 mg Documented by: [id number] Medical Decision Making Differential Diagnosis Differential diagnosis: Etiologies such as infections, reactive airway disease, COPD, pneumonia, pleural effusion, pulmonary edema, ARDS, pneumothorax, CHF, cardiac ischemia, cardiac tamponade, dysrhythmia, anemia, pulmonary embolism, musculoskeletal, gastrointestinal process, as well as others were entertained. Medical Records Attestation: I reviewed the patient's medical records. Home Medications Current Medication List: was personally reviewed by me Laboratory Data Attestation: I reviewed the patient's lab results. Result diagrams: 08/22/18 15:10 08/22/18 15:10 Lab Results 08/22/18 08/22/18 08/22/18 Range/Units 15:10 15:10 15:10 WBC 8.62 (4.8-10.8) K/uL RBC 4.49 L (4.7-6.1) M/uL Hgb 13.0 L (14.0-18.0) g/dL Hct 39.5 L (42-52) % MCV 88.0 (80-100) fL MCH 29.0 (25-34) pg MCHC 32.9 (32-36) g/dL RDW Std Deviation 53.0 H (36.4-46.3) fL RDW Coeff of Ren 16.5 H (11.5-14.5) % Plt Count 201 (130-400) K/uL MPV 9.3 (7.4-10.4) fL Immature Gran % (Auto) 0.3 % Neut % (Auto) 66.8 % Lymph % (Auto) 21.8 % [place] % (Auto) 9.3 % Eos % (Auto) 1.2 % Baso % (Auto) 0.6 % Immature Gran # (Auto) 0.03 H (0.00-0.02) K/uL Neut # (Auto) 5.76 (1.4-6.5) K/uL Lymph # (Auto) 1.88 (1.2-3.4) K/uL [place] # (Auto) 0.80 H (0.11-0.59) K/uL Eos # (Auto) 0.10 (0-0.5) K/uL Baso # (Auto) 0.05 (0-0.2) K/uL PT 10.6 (9.0-12.0) Seconds INR 1.0 (0.9-1.1) APTT 25.2 (21.0-31.0) Seconds PTT Ratio 0.9 D-Dimer (0-500) ug/L FEU VBG pH (7.36-7.41) VBG pCO2 (38-50) mmHg VBG pO2 mmHg VBG HCO3 mmol/L VBG O2 Saturation % VBG Base Excess mEq/L Barometric Pressure mm/Hg Sodium 140 (136-145) mmol/L Potassium 4.0 (3.5-5.1) mmol/L Chloride 105 (98-107) mmol/L Carbon Dioxide 29 (21-32) mmol/L Anion Gap 5.0 (3-11) BUN 21 H (7-18) mg/dl Creatinine 1.12 (0.6-1.4) mg/dl Est Cr Clr Drug Dosing 65.2 ml/min Est GFR ( Amer) 77.8 Est GFR (Non-Af Amer) 67.1 BUN/Creatinine Ratio 18.3 (10-20) Glucose 80 (70-99) mg/dl Calcium 8.7 (8.5-10.1) mg/dl Total Bilirubin 0.4 (0.2-1) mg/dl AST 18 (15-37) U/L ALT 21 (12-78) U/L Alkaline Phosphatase 84 (45-117) U/L Troponin I < 0.015 (0-0.045) ng/ml Total Protein 7.3 (6.4-8.2) gm/dl Albumin 3.8 (3.4-5.0) gm/dl Globulin 3.5 (2.5-4.0) gm/dl Albumin/Globulin Ratio 1.1 (0.9-2) Urine Color Urine Appearance (Clear) Urine pH (4.5-7.5) Ur Specific [place] (1.000-1.030) Urine Protein (Negative) Urine Glucose (UA) (Negative) Urine Ketones (Negative) Urine Blood (Negative) Urine Nitrite (Negative) Urine Bilirubin (Negative) Urine Urobilinogen (Negative) Ur Leukocyte Esterase (Negative) Urine WBC (Auto) (0-5) /hpf Urine RBC (Auto) (0-4) /hpf U Hyaline Cast (Auto) (0-5) /lpf U Epithel Cells (Auto) (0-5) /lpf Urine Bacteria (Auto) (Negative) Urine Yeast (None Prsent) Influenza Type A (PCR) (Neg) Influenza Type B (PCR) (Neg) 08/22/18 08/22/18 08/22/18 Range/Units 15:10 15:18 15:33 WBC (4.8-10.8) K/uL RBC (4.7-6.1) M/uL Hgb (14.0-18.0) g/dL Hct (42-52) % MCV (80-100) fL MCH (25-34) pg MCHC (32-36) g/dL RDW Std Deviation (36.4-46.3) fL RDW Coeff of Ren (11.5-14.5) % Plt Count (130-400) K/uL MPV (7.4-10.4) fL Immature Gran % (Auto) % Neut % (Auto) % Lymph % (Auto) % [place] % (Auto) % Eos % (Auto) % Baso % (Auto) % Immature Gran # (Auto) (0.00-0.02) K/uL Neut # (Auto) (1.4-6.5) K/uL Lymph # (Auto) (1.2-3.4) K/uL [place] # (Auto) (0.11-0.59) K/uL Eos # (Auto) (0-0.5) K/uL Baso # (Auto) (0-0.2) K/uL PT (9.0-12.0) Seconds INR (0.9-1.1) APTT (21.0-31.0) Seconds PTT Ratio D-Dimer 300 (0-500) ug/L FEU VBG pH 7.39 (7.36-7.41) VBG pCO2 47 (38-50) mmHg VBG pO2 78 mmHg VBG HCO3 28 mmol/L VBG O2 Saturation 95.1 % VBG Base Excess 1.9 mEq/L Barometric Pressure 724.0 mm/Hg Sodium (136-145) mmol/L Potassium (3.5-5.1) mmol/L Chloride (98-107) mmol/L Carbon Dioxide (21-32) mmol/L Anion Gap (3-11) BUN (7-18) mg/dl Creatinine (0.6-1.4) mg/dl Est Cr Clr Drug Dosing ml/min Est GFR ( Amer) Est GFR (Non-Af Amer) BUN/Creatinine Ratio (10-20) Glucose (70-99) mg/dl Calcium (8.5-10.1) mg/dl Total Bilirubin (0.2-1) mg/dl AST (15-37) U/L ALT (12-78) U/L Alkaline Phosphatase (45-117) U/L Troponin I (0-0.045) ng/ml Total Protein (6.4-8.2) gm/dl Albumin (3.4-5.0) gm/dl Globulin (2.5-4.0) gm/dl Albumin/Globulin Ratio (0.9-2) Urine Color Urine Appearance (Clear) Urine pH (4.5-7.5) Ur Specific [place] (1.000-1.030) Urine Protein (Negative) Urine Glucose (UA) (Negative) Urine Ketones (Negative) Urine Blood (Negative) Urine Nitrite (Negative) Urine Bilirubin (Negative) Urine Urobilinogen (Negative) Ur Leukocyte Esterase (Negative) Urine WBC (Auto) (0-5) /hpf Urine RBC (Auto) (0-4) /hpf U Hyaline Cast (Auto) (0-5) /lpf U Epithel Cells (Auto) (0-5) /lpf Urine Bacteria (Auto) (Negative) Urine Yeast (None Prsent) Influenza Type A (PCR) Neg for Influ A (Neg) Influenza Type B (PCR) Neg for Influ B (Neg) 08/22/18 Range/Units 19:24 WBC (4.8-10.8) K/uL RBC (4.7-6.1) M/uL Hgb (14.0-18.0) g/dL Hct (42-52) % MCV (80-100) fL MCH (25-34) pg MCHC (32-36) g/dL RDW Std Deviation (36.4-46.3) fL RDW Coeff of Ren (11.5-14.5) % Plt Count (130-400) K/uL MPV (7.4-10.4) fL Immature Gran % (Auto) % Neut % (Auto) % Lymph % (Auto) % [place] % (Auto) % Eos % (Auto) % Baso % (Auto) % Immature Gran # (Auto) (0.00-0.02) K/uL Neut # (Auto) (1.4-6.5) K/uL Lymph # (Auto) (1.2-3.4) K/uL [place] # (Auto) (0.11-0.59) K/uL Eos # (Auto) (0-0.5) K/uL Baso # (Auto) (0-0.2) K/uL PT (9.0-12.0) Seconds INR (0.9-1.1) APTT (21.0-31.0) Seconds PTT Ratio D-Dimer (0-500) ug/L FEU VBG pH (7.36-7.41) VBG pCO2 (38-50) mmHg VBG pO2 mmHg VBG HCO3 mmol/L VBG O2 Saturation % VBG Base Excess mEq/L Barometric Pressure mm/Hg Sodium (136-145) mmol/L Potassium (3.5-5.1) mmol/L Chloride (98-107) mmol/L Carbon Dioxide (21-32) mmol/L Anion Gap (3-11) BUN (7-18) mg/dl Creatinine (0.6-1.4) mg/dl Est Cr Clr Drug Dosing ml/min Est GFR ( Amer) Est GFR (Non-Af Amer) BUN/Creatinine Ratio (10-20) Glucose (70-99) mg/dl Calcium (8.5-10.1) mg/dl Total Bilirubin (0.2-1) mg/dl AST (15-37) U/L ALT (12-78) U/L Alkaline Phosphatase (45-117) U/L Troponin I (0-0.045) ng/ml Total Protein (6.4-8.2) gm/dl Albumin (3.4-5.0) gm/dl Globulin (2.5-4.0) gm/dl Albumin/Globulin Ratio (0.9-2) Urine Color Yellow Urine Appearance Turbid H (Clear) Urine pH 5.0 (4.5-7.5) Ur Specific [place] 1.017 (1.000-1.030) Urine Protein Negative (Negative) Urine Glucose (UA) Negative (Negative) Urine Ketones Negative (Negative) Urine Blood 1+ H (Negative) Urine Nitrite Negative (Negative) Urine Bilirubin Negative (Negative) Urine Urobilinogen Negative (Negative) Ur Leukocyte Esterase 3+ H (Negative) Urine WBC (Auto) >30 H (0-5) /hpf Urine RBC (Auto) 5-10 H (0-4) /hpf U Hyaline Cast (Auto) 0 (0-5) /lpf U Epithel Cells (Auto) 5-10 H (0-5) /lpf Urine Bacteria (Auto) Negative (Negative) Urine Yeast Budding H (None Prsent) Influenza Type A (PCR) (Neg) Influenza Type B (PCR) (Neg) Imaging Data Radiologist's Impression: Radiology results as stated below per my review and the radiologist's interpretation: SINGLE VIEW CHEST CLINICAL HISTORY: Dyspnea. FINDINGS: An AP, portable, upright chest radiograph is compared to study dated 07/04/2018 and correlated with chest CT dated 05/22/2018. The examination is degraded by portable technique and patient rotation. The heart is mildly enlarged. The pulmonary vasculature is noncongested. Enlargement of the central pulmonary vessels suggests pulmonary artery hypertension. Advanced emphysema and chronic interstitial thickening are similar to previous. There is bibasilar scarring/atelectasis. No airspace consolidation or large pleural effusion is identified. No pneumothorax is seen. The skeletal structures are osteopenic. The bony thorax is grossly intact. Degenerative change is noted throughout the thoracic spine. IMPRESSION: Cardiomegaly and advanced emphysema with no acute cardiopulmonary abnormality. Electronically signed by: Luciano Prieto M.D. 08/22/2018 3:46 PM ECG Data Attestation: I personally reviewed and interpreted this ECG as follows: Indication: SOB/dyspnea Rate (beats per minute): 96 Rhythm: normal sinus Findings: no PAC, no PVC, no ST depression, no ST elevation and no ectopy Comparison ECG Date: from (07/04/18) Change: no significant change Blood Pressure Blood Pressure Findings: Normal blood pressure MDM Narrative The patient is a 68-year-old male who presented to the emergency department for an evaluation of difficulty breathing. The patient has a tele-monitor which notifies his primary doctor if he has any abnormal vital signs. The patient was called today and told to go to the emergency department because of significant hypoxia. He was noted to have oxygen saturation in the 70s. He has a long history of COPD but also has had bronchitis in the past. He does note some sputum production with shortness of breath and cough. The patient had a negative d-dimer. He was treated with bronchodilator therapy and IV steroids. He was also treated with IV antibiotics. I discussed the patient's laboratory and radiographic studies with him. Ultimately given his hypoxia and underlying medical conditions I did discuss his case with the on-call [facility] hospitalist group. They have agreed to evaluate the patient in the emergency department for further management and disposition. Impression & Plan COPD exacerbation, Hypoxia, Bronchitis Discharge Plan Visit Data *Final* Discharge Date/Time: 08/22/18 19:20 Chief Complaint: Shortness of Breath/Dyspnea Stated Complaint: SHORTNESS OF BREATH ED Provider: Reinaldo Gallegos Discharge Problem: COPD exacerbation, Hypoxia, Bronchitis Patient Disposition: Admitted As Inpatient Discharge Instructions Interventions: ED Discharge Assessment Last Done: 08/22/18 19:20 The scribe's documentation has been prepared under my direction and personally reviewed by me in its entirety. I confirm that the note above accurately reflects all work, treatment, procedures, and medical decision making performed by me.
[2018-08-22 15:25] LABS: Basophils # (auto) 0.05 K/uL (0-0.2); Basophils % (auto) 0.6 %; Eosinophils % (auto) 1.2 %; Hematocrit (blood only) 39.5 % (42-52); Immature Granulocytes # (auto) 0.03 K/uL (0.00-0.02); Immature Granulocytes % (auto) 0.3 %; Lymphocytes # (auto) 1.88 K/uL (1.2-3.4); Lymphocytes % (auto) 21.8 %; Mean Corpuscular Hgb Conc 32.9 g/dL (32-36); Mean Platelet Volume 9.3 fL (7.4-10.4); Monocytes % (auto) 9.3 %; Neutrophils # (auto) 5.76 K/uL (1.4-6.5); Neutrophils % (auto) 66.8 %; Platelet Count 201 K/uL (130-400); RDW Coefficient of Variation 16.5 % (11.5-14.5); Red Blood Count 4.49 M/uL (4.7-6.1); White Blood Count 8.62 K/uL (4.8-10.8)
[2018-08-22 15:35] LABS: Partial Thromboplastin Ratio 0.9; Partial Thromboplastin Time 25.2 Seconds (21.0-31.0); Prothrombin Time 10.6 Seconds (9.0-12.0)
[2018-08-22 15:42] LABS: Alanine Aminotransferase 21 U/L (12-78); Albumin Level 3.8 gm/dl (3.4-5.0); Aspartate Aminotransferase 18 U/L (15-37); BUN Creatinine Ratio 18.3 (10-20); Blood Urea Nitrogen 21 mg/dl (7-18); Calcium 8.7 mg/dl (8.5-10.1); Carbon Dioxide 29 mmol/L (21-32); Chloride 105 mmol/L (98-107); Creatinine Clr Calc Pharmacy 65.2 ml/min; Est GFR (African American) 77.8; Est GFR (Non-African American) 67.1; Glucose 80 mg/dl (70-99); Sodium 140 mmol/L (136-145)
[2018-08-22 15:46] LABS: Albumin Globulin Ratio 1.1 (0.9-2); Alkaline Phosphatase 84 U/L (45-117); Bilirubin,Total 0.4 mg/dl (0.2-1); Globulin 3.5 gm/dl (2.5-4.0); Total Protein 7.3 gm/dl (6.4-8.2); Troponin I < 0.015 ng/ml (0-0.045)
[2018-08-22 15:47] LABS: Base Excess VBG 1.9 mEq/L; Oxygen Saturation VBG 95.1 %; pH VBG 7.39 (7.36-7.41)
--- NOTE | 2018-08-22 15:48 | XRay Report ---
SINGLE VIEW CHEST CLINICAL HISTORY: Dyspnea. FINDINGS: An AP, portable, upright chest radiograph is compared to study dated 07/04/2018 and correlat ed with chest CT dated 05/22/2018. The examination is degraded by portable technique and patient rota tion. The heart is mildly enlarged. The pulmonary vasculature is noncongested. Enlargement of the ce ntral pulmonary vessels suggests pulmonary artery hypertension. Advanced emphysema and chronic inters titial thickening are similar to previous. There is bibasilar scarring/atelectasis. No airspace conso lidation or large pleural effusion is identified. No pneumothorax is seen. The skeletal structures ar e osteopenic. The bony thorax is grossly intact. Degenerative change is noted throughout the thoracic spine. IMPRESSION: Cardiomegaly and advanced emphysema with no acute cardiopulmonary abnormality. Electronically signed by: Luciano Prieto M.D. 08/22/2018 3:46 PM
[2018-08-22 16:22] LABS: Influenza A virus by PCR Neg for Influ A (Neg); Influenza B virus by PCR Neg for Influ B (Neg)
[2018-08-22 16:29] LABS: D Dimer 300 ug/L FEU (0-500)
[2018-08-22] MEDS ORDERED: LEVOFLOXACIN/D5W 750 MG/150 ML BAG IV STA (17:08)
[2018-08-22] MEDS ORDERED: SODIUM CHLORIDE 0.9% 1000ML 1,000 ML IV ONE (17:08)
--- NOTE | 2018-08-22 18:06 | History & Physical Report ---
Date of Service August 22, 2018 Assessment & Plan (1) COPD exacerbation: Increasing shortness of breath with cough for the last 2 days Noted to have hypoxia on admission Chest x-ray did not show any pneumonia Likely has acute bronchitis with exacerbation of COPD Started on intravenous Levaquin, Solu-Medrol and nebulized bronchodilator Blood culture has been sent Uses 2 L of oxygen at night only Likely to need a 2 steps O2 saturation before discharge Present on Admission?: Yes (2) Bronchitis: As above (3) HTN (hypertension): Blood pressure is controlled (4) PTSD (post-traumatic stress disorder): No acute delirium and/or depression Continue current medications for PTSD (5) GERD (gastroesophageal reflux disease): No acute symptoms DVT prophylaxis Subcu Lovenox CODE STATUS Full History of Present Illness Chief Complaint: Shortness of breath with cough for the last 2 days Primary Care Provider: NO PCP He is a 68-year-old male with significant past medical history of COPD on home oxygen, hypertension, GERD, PTSD and history of kidney stone has been complaining of more shortness of breath with cough for the last 2 days. He has been producing yellowish phlegm but denies any fever and/or chills. He denies any chest pain and/or palpitation. No abdominal pain, nausea and/or vomiting. No headache, dizziness, blurred vision or any other neurological symptoms. Infiltrating ER with a decreasing O2 saturation on 2 L nasal cannula. Chest x- ray did not show any pneumonia. And was admitted to medical unit with infective exacerbation of COPD. . Allergies Allergy/AdvReac Type Severity Reaction Status Date / Time bee venom protein (honey bee) Allergy Severe ANAPHYLAXIS Verified 08/22/18 17:55 pneumococcal vaccine Allergy Severe SWELLING Verified 08/22/18 17:55 Qechenu-Osv-Gso Reductase Allergy Severe CPK'S GO Verified 08/22/18 17:55 Inhibitor THROUGH ROOF amoxicillin Allergy Intermediate FACIAL Verified 08/22/18 17:55 SWELLING (EYES SWELLED SHUT) clavulanic acid Allergy Intermediate FACIAL Verified 08/22/18 17:55 SWELLING (EYES SWELLED SHUT) prednisone AdvReac Severe confusion Verified 08/22/18 17:55 and agitation Home Medications Home Medications Medication Instructions Recorded Confirmed Type Spiriva with HandiHaler 1 cap INHALATION DAILY 04/08/18 08/22/18 History buspirone 5 mg PO HS 04/08/18 08/22/18 History cetirizine 10 mg PO DAILY PRN 04/08/18 08/22/18 History omeprazole 20 mg PO BID 04/08/18 08/22/18 History sertraline 200 mg PO HS 04/08/18 08/22/18 History trazodone 150 mg PO HS 04/08/18 08/22/18 History budesonide-formoterol 2 puff INHALATION Q12H 05/22/18 08/22/18 History diltiazem HCl 120 mg PO DAILY 05/22/18 08/22/18 History albuterol sulfate 2 puff INHALATION Q6H PRN 07/04/18 08/22/18 History albuterol sulfate 2.5 mg INHALATION QID PRN 07/04/18 08/22/18 History finasteride 5 mg PO DAILY 07/04/18 08/22/18 History epinephrine [EpiPen] 0.3 mg IM Q3H PRN 08/22/18 08/22/18 History guaifenesin 10 ml PO Q6H PRN 08/22/18 08/22/18 History guaifenesin 400 mg PO BID 08/22/18 08/22/18 History Past Med/Surg History Medical History History of tobacco abuse (Chronic) HTN (hypertension) (Chronic) GERD (gastroesophageal reflux disease) (Chronic) PTSD (post-traumatic stress disorder) (Chronic) COPD (chronic obstructive pulmonary disease) with emphysema (Chronic) Kidney stones (Resolved) Osteoarthritis (Chronic) 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) Pneumonia (Resolved) Thrombophlebitis arm (Resolved) Depression Emphysema/COPD PTSD (post-traumatic stress disorder) Surgical History History of extraction of renal calculus (Resolved) History of appendectomy (Resolved) History of tonsillectomy (Resolved) Loss of teeth due to extraction (Chronic) H/O hernia repair S/P arthroscopic surgery of right knee Family History Mother Colon cancer Father FH: kidney cancer Other Cancer Social History Preferred Language: Upper Sorbian Beliefs That Will Affect Care: None marital status: Current Living Situation: Spouse 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 Feels Safe at Home: Yes Smoking Status: Former smoker Hx Alcohol Use: No Hx Substance Use: No Review of Systems All systems reviewed & are unremarkable except as noted in HPI & below Physical Exam Vital Signs (Past 24 Hours): Last Vital Signs Temp 36.3 C L 08/22/18 14:30 Pulse 70 08/22/18 17:35 Resp 18 08/22/18 17:35 BP 146/102 H 08/22/18 17:35 Pulse Ox 93 08/22/18 17:35 Physical Exam: Moderate distress at rest with shortness of breath Constitutional: WD/WN, vitals as above well developed, + acute distress (Minimal acute distress) and + ill appearing Eyes: PERRL, conjunctivae normal, anicteric sclerae ENMT: external ear and nose normal, oropharynx normal Neck: trachea midline, no thyromegaly Respiratory: + respiratory distress, + cough and + tachypneic Auscultation: + diminished lung sounds and + wheezes (Severe decrease in air entry and minimal wheezing) Cardiovascular: RRR, no murmur, no edema Gastrointestinal (Abdomen): Inspection/Auscultation: abdomen normal to inspection and normal bowel sounds Neurologic: PERRL, EOMI, accommodation nl, no face palsy, no dysarthria Results & Data Laboratory Results Short CBC 08/22/18 Range/Units 15:10 WBC 8.62 (4.8-10.8) K/uL Hgb 13.0 L (14.0-18.0) g/dL Hct 39.5 L (42-52) % Plt Count 201 (130-400) K/uL BMP 08/22/18 15:10 Sodium 140 Potassium 4.0 Chloride 105 Carbon Dioxide 29 BUN 21 H Creatinine 1.12 Glucose 80 Calcium 8.7 Cardiac Enzymes 08/22/18 Range/Units 15:10 Troponin I < 0.015 (0-0.045) ng/ml Liver Function 08/22/18 Range/Units 15:10 Total Bilirubin 0.4 (0.2-1) mg/dl AST 18 (15-37) U/L ALT 21 (12-78) U/L Alkaline Phosphatase 84 (45-117) U/L Albumin 3.8 (3.4-5.0) gm/dl Medications Administered Current Inpatient Medications Enoxaparin Sodium (Lovenox) 40 mg SQ Q24H PEARL Stop: 09/21/18 17:59 Levofloxacin/Dextrose (Levaquin/D5w) 750 mg in 150 mls @ 100 mls/hr IV NOW STA Stop: 08/22/18 18:37 Last Admin: 08/22/18 17:39 Dose: 100 mls/hr Documented by: Sodium Chloride (Nss 1000ml) 1,000 mls @ 999 mls/hr IV .Q1H1M ONE Stop: 08/22/18 18:08 Last Admin: 08/22/18 17:41 Dose: 999 mls/hr Documented by:
[2018-08-22 19:51] LABS: Appearance Urine Turbid (Clear); Bacteria Urine Automated Negative (Negative); Bilirubin Urine Negative (Negative); Blood Urine 1+ (Negative); Cast Urine Automated 0 /lpf (0-5); Color Urine Yellow; Glucose Urine UA Negative (Negative); Ketones Urine Negative (Negative); Leukocyte Esterase Urine 3+ (Negative); Nitrite Urine Negative (Negative); Protein Urine Negative (Negative); Specific Gravity Urine 1.017 (1.000-1.030); Urobilinogen Urine Negative (Negative); WBC Urine Automated >30 /hpf (0-5)
[2018-08-22] MEDS ORDERED: ALBUTEROL HFA 8 GM INHALER INH PRN (19:56)
[2018-08-22] MEDS ORDERED: CETIRIZINE HCL 10 MG TABLET PO PRN (19:56)
[2018-08-22] MEDS ORDERED: TRAMADOL HCL 50 MG TABLET PO PRN (19:56)
[2018-08-22] MEDS ORDERED: ALBUTEROL 0.083% NEBU SOLN 3 ML VIAL INH PRN (19:56)
[2018-08-22] MEDS: BUDESONIDE/FORMOTEROL FUMARATE 160/4.5 60 PUFFS/INHALER INH SCH (21:46)
[2018-08-22] MEDS: TRAZODONE HCL 50 MG TAB PO SCH (21:47)
[2018-08-22] MEDS: ENOXAPARIN INJ 40 MG/0.4 ML SYR SQ SCH (21:48)
[2018-08-22] MEDS: SERTRALINE HCL 100 MG TABLET PO SCH (21:48)
[2018-08-22] MEDS: PANTOprazole 40 MG TAB PO SCH (21:48)
[2018-08-22] MEDS: methylPREDNISolone 40 MG in SYRINGE 0 ML IV SCH (23:23)
[2018-08-23] MEDS: methylPREDNISolone 40 MG in SYRINGE 0 ML IV SCH ×3 (07:42→23:29)
[2018-08-23] MEDS: BUDESONIDE/FORMOTEROL FUMARATE 160/4.5 60 PUFFS/INHALER INH SCH ×2 (07:42→21:00)
[2018-08-23] MEDS: PANTOprazole 40 MG TAB PO SCH ×2 (07:43→21:02)
[2018-08-23] MEDS: FINASTERIDE 5 MG TAB PO SCH (07:43)
[2018-08-23] MEDS: dilTIAZem ER 120 MG CAPCR PO SCH (07:44)
[2018-08-23] MEDS: TIOTROPIUM BROMIDE 5 PUFF/90 MCG INH INH SCH (09:04)
[2018-08-23] MEDS ORDERED: levoFLOXacin 750 MG TAB PO SCH (11:00)
[2018-08-23] MEDS: levoFLOXacin 500 MG TAB PO SCH (11:13)
[2018-08-23 15:47] VITALS: TEMP 98.1
--- NOTE | 2018-08-23 17:52 | Hospitalist Progress Note ---
Date of Service August 23, 2018 Assessment & Plan (1) COPD exacerbation: Presents with worsening shortness of breath with cough for 2 days Chronic Oxygen dependency--2 Liters at bedtime Former Tobacco use CXR:Cardiomegaly and advanced emphysema with no acute cardiopulmonary abnormality. Continue IV Levaquin, Solu-Medrol and nebulized bronchodilator Blood culture:Pending Supplemental Oxygen as needed May need 2 step prior to discharge (2) Bronchitis: As above (3) HTN (hypertension): Stable (4) PTSD (post-traumatic stress disorder): Stable Continue home meds (5) GERD (gastroesophageal reflux disease): Continue PPI DVT Px: SQ Lovenox Code Status Full Code Subjective Patient is seen and examined at bedside Feels much better today Eager to get discharged Less Cough and SOB today Denies chest pain, nausea, abd pain No other complaints Physical Exam Vital Signs (Past 24 Hours): Last Vital Signs Temp 36.7 C 08/23/18 15:47 Pulse 62 08/23/18 15:47 Resp 20 08/23/18 15:47 BP 129/75 08/23/18 15:47 Pulse Ox 93 08/23/18 15:47 Physical Exam: Physical Exam: Vitals signs as noted above General Appearance:Moderately built and nourished, no apparent distress Head: normocephalic, Atraumatic Eyes: normal inspection, EOMI Neck: supple, Trachea midline Respiratory/Chest: Decreased breath sounds, CTA Cardiovascular: S1, S2, No murmur Abdomen/GI:Soft, Non tender, Bowel sounds present Extremities/Musculoskelatal:normal inspection, no edema Neurologic/Psych:AAOX3, grossly no focal neurological deficits Skin: normal color, warm Results & Data Laboratory Results Urine 08/22/18 Range/Units 19:24 Urine Color Yellow Urine Appearance Turbid H (Clear) Urine pH 5.0 (4.5-7.5) Ur Specific [place] 1.017 (1.000-1.030) Urine Protein Negative (Negative) Urine Glucose (UA) Negative (Negative)
[2018-08-23] MEDS: TRAZODONE HCL 50 MG TAB PO SCH (21:01)
[2018-08-23] MEDS: ENOXAPARIN INJ 40 MG/0.4 ML SYR SQ SCH (21:01)
[2018-08-23] MEDS: SERTRALINE HCL 100 MG TABLET PO SCH (21:02)
[2018-08-24 06:51] LABS: Hematocrit (blood only) 36.6 % (42-52); Hemoglobin 11.7 g/dL (14.0-18.0); Mean Corpuscular Volume 88.2 fL (80-100); Mean Platelet Volume 9.5 fL (7.4-10.4); Platelet Count 182 K/uL (130-400); RDW Coefficient of Variation 16.3 % (11.5-14.5); RDW Standard Deviation 52.5 fL (36.4-46.3); Red Blood Count 4.15 M/uL (4.7-6.1); White Blood Count 10.91 K/uL (4.8-10.8)
[2018-08-24 07:23] LABS: BUN Creatinine Ratio 14.9 (10-20); Calcium 8.5 mg/dl (8.5-10.1); Creatinine Clr Calc Pharmacy 70.2 ml/min; Est GFR (African American) 85.1; Est GFR (Non-African American) 73.4; Potassium 3.9 mmol/L (3.5-5.1)
[2018-08-24] MEDS: methylPREDNISolone 40 MG in SYRINGE 0 ML IV SCH ×2 (08:37→14:09)
[2018-08-24] MEDS: dilTIAZem ER 120 MG CAPCR PO SCH (08:37)
[2018-08-24] MEDS: BUDESONIDE/FORMOTEROL FUMARATE 160/4.5 60 PUFFS/INHALER INH SCH (08:38)
[2018-08-24] MEDS: PANTOprazole 40 MG TAB PO SCH (08:38)
[2018-08-24] MEDS: TIOTROPIUM BROMIDE 5 PUFF/90 MCG INH INH SCH (08:38)
[2018-08-24] MEDS: FINASTERIDE 5 MG TAB PO SCH (08:38)
--- NOTE | 2018-08-24 11:18 | Hospitalist Progress Note ---
Date of Service August 24, 2018 Assessment & Plan (1) COPD exacerbation: Presents with worsening shortness of breath with cough for 2 days Chronic Oxygen dependency--2 Liters at bedtime Former Tobacco use CXR:Cardiomegaly and advanced emphysema with no acute cardiopulmonary abnormality. Continue Levaquin, Solu-Medrol and nebulized bronchodilator Blood culture:No growth to date Supplemental Oxygen as needed Saturating well on 2 liters--Taper as able 2 step:2 liters at rest and with activity (2) Bronchitis: As above (3) HTN (hypertension): Stable (4) PTSD (post-traumatic stress disorder): Stable Continue home meds (5) GERD (gastroesophageal reflux disease): Continue PPI DVT Px: SQ Lovenox Code Status Full Code Subjective Patient is seen and examined at bedside Eager to get discharged Offers no complaints Minimal dry Cough Denies chest pain,SOB, nausea, abd pain Plan to discharge home today Physical Exam Vital Signs (Past 24 Hours): Last Vital Signs Temp 36.7 C 08/24/18 07:51 Pulse 57 L 08/24/18 07:51 Resp 20 08/24/18 07:51 BP 122/67 08/24/18 07:51 Pulse Ox 92 08/24/18 07:51 Physical Exam: Physical Exam: Vitals signs as noted above General Appearance:Moderately built and nourished, no apparent distress Head: normocephalic, Atraumatic Eyes: normal inspection, EOMI Neck: supple, Trachea midline Respiratory/Chest: Decreased breath sounds, Scattered wheezes Cardiovascular: S1, S2, No murmur Abdomen/GI:Soft, Non tender, Bowel sounds present Extremities/Musculoskelatal:normal inspection, no edema Neurologic/Psych:AAOX3, grossly no focal neurological deficits Skin: normal color, warm Results & Data Laboratory Results Short CBC 08/24/18 Range/Units 06:21 WBC 10.91 H (4.8-10.8) K/uL Hgb 11.7 L (14.0-18.0) g/dL Hct 36.6 L (42-52) % Plt Count 182 (130-400) K/uL BMP 08/24/18 06:21 Sodium 134 L Potassium 3.9 Chloride 100 Carbon Dioxide 27 BUN 16 Creatinine 1.04 Glucose 221 H Calcium 8.5
--- NOTE | 2018-08-24 13:25 | Discharge Summary ---
Date of Service August 24, 2018 Admission HPI Per Admitting Provider He is a 68-year-old male with significant past medical history of COPD on home oxygen, hypertension, GERD, PTSD and history of kidney stone has been complaining of more shortness of breath with cough for the last 2 days. He has been producing yellowish phlegm but denies any fever and/or chills. He denies any chest pain and/or palpitation. No abdominal pain, nausea and/or vomiting. No headache, dizziness, blurred vision or any other neurological symptoms. Infiltrating ER with a decreasing O2 saturation on 2 L nasal cannula. Chest x- ray did not show any pneumonia. And was admitted to medical unit with infective exacerbation of COPD. . Admission Exam Per Admitting Provider Constitutional: WD/WN, vitals as above Eyes: PERRL, conjunctivae normal, anicteric sclerae ENMT: external ear and nose normal, oropharynx normal Respiratory: normal respiratory effort; no respiratory distress Auscultation: + diminished lung sounds; no crackles, no rhonchi and no wheezes Cardiovascular: Rate/Rhythm: regular rate and regular rhythm Vessels: normal peripheral pulses Extremities: no edema Gastrointestinal (Abdomen): normal bowel sounds, soft, nontender, no hepatosplenomegaly Musculoskeletal: no cyanosis or clubbing, extremities motor strength 5/5 Skin: no rashes, warm and dry Neurologic: PERRL, EOMI, accommodation nl, no face palsy, no dysarthria Psychiatric: A+Ox3, euthymic affect Principal Diagnosis Discharge Information Discharge Diagnosis COPD Exacerbation Discharge Goals Decrease discomfort,Improve disease control, Improve function Discharge Activity Limitations Per instructions/follow-up Discharge Data Allergies Allergy/AdvReac Type Severity Reaction Status Date / Time bee venom protein (honey bee) Allergy Severe ANAPHYLAXIS Verified 08/22/18 17:55 pneumococcal vaccine Allergy Severe SWELLING Verified 08/22/18 17:55 Rxnmugn-Qnv-Rot Reductase Allergy Severe CPK'S GO Verified 08/22/18 17:55 Inhibitor THROUGH ROOF amoxicillin Allergy Intermediate FACIAL Verified 08/22/18 17:55 SWELLING (EYES SWELLED SHUT) clavulanic acid Allergy Intermediate FACIAL Verified 08/22/18 17:55 SWELLING (EYES SWELLED SHUT) prednisone AdvReac Severe confusion Verified 08/22/18 17:55 and agitation Consultations 08/22/18 17:16 ED Decision to Admit Stat Procedures Performed CXR: Cardiomegaly and advanced emphysema with no acute cardiopulmonary abnormality. Hospital Course (1) COPD exacerbation: Presents with worsening shortness of breath with cough for 2 days Chronic Oxygen dependency--2 Liters at bedtime Former Tobacco use CXR:Cardiomegaly and advanced emphysema with no acute cardiopulmonary abnormality. Continue Levaquin, Solu-Medrol and nebulized bronchodilator Blood culture:No growth to date Supplemental Oxygen as needed Saturating well on 2 liters--Taper as able 2 step:2 liters at rest and with activity (2) Bronchitis: As above (3) HTN (hypertension): Stable (4) PTSD (post-traumatic stress disorder): Stable Continue home meds (5) GERD (gastroesophageal reflux disease): Continue PPI DVT Px: SQ Lovenox Code Status Full Code Total Time Total Time Spent Total Time Spent (In Minutes): 36 minutes Total Time Includes: Examination of the Patient, Discharge Planning, Medication Reconciliation and Other Discharge Plan Discharge Items Patient Disposition: Home - Self-Care Reason For Visit: COPD EXACERBATION Discharge Diagnosis: COPD Exacerbation Discharge Goals: Decrease discomfort, Improve disease control and Improve function Activity: Per 'Additional Instructions' section Lifting: Gradually increase as tolerated Exercise/Sports: Gradually increase as tolerated Non-emergency contact: Primary Care Provider and Shift Production Supervisor Call non-emergency contact if: you have any medication questions, your symptoms worsen, your pain is not controlled, your pain is worsening, your pain is unusual for you, your pain is concerning for you and you have a fever Follow-up/Referrals: PCP,NO [Primary Care Provider] - Diet: Heart Healthy Addtl Provider Instructions: Follow up with your Primary Care Physician at [facility] in 1 week as advised Follow up with your Pulmnologist in 2-4 weeks Complete the antibiotic and Steroid Course as prescribed Use Oxygen 2 liters via Nasal Cannula at rest and with activity Seek immediate medical attention if your symptoms reoccur or worsen Prescriptions: New levofloxacin 500 mg Tablet 500 mg PO DAILY@1100 4 Days Qty: 2 RF: 0 methylprednisolone [Medrol (Wilman)] 4 mg tablets,dose pack 4 mg PO DIRECTED Qty: 21 RF: 0 Continued diltiazem HCl 120 mg Capsule,Extended Release 24 Hr 120 mg PO DAILY RF: 0 budesonide-formoterol 160-4.5 mcg/actuation Hfa Aerosol Inhaler 2 puff INHALATION Q12H RF: 0 albuterol sulfate 2.5 mg /3 mL (0.083 %) Solution For Nebulization 2.5 mg INHALATION QID PRN (Reason: Shortness Of Breath) RF: 0 albuterol sulfate 90 mcg/actuation Hfa Aerosol Inhaler 2 puff INHALATION Q6H PRN (Reason: shortness of breath) RF: 0 finasteride 5 mg Tablet 5 mg PO DAILY RF: 0 buspirone 5 mg Tablet 5 mg PO HS RF: 0 cetirizine 10 mg Tablet 10 mg PO DAILY PRN (Reason: Allergy Symptoms) RF: 0 sertraline 100 mg Tablet 200 mg PO HS RF: 0 trazodone 150 mg Tablet 150 mg PO HS RF: 0 omeprazole 20 mg Capsule,Delayed Release(Dr/Ec) 20 mg PO BID RF: 0 Spiriva with HandiHaler 18 mcg Capsule, W/Inhalation Device 1 cap INHALATION DAILY RF: 0 guaifenesin 200 mg Tablet 400 mg PO BID RF: 0 epinephrine [EpiPen] 0.3 mg/0.3 mL Auto-Injector 0.3 mg IM Q3H PRN (Reason: Allergic Reaction) RF: 0 guaifenesin 200 mg/5 mL Liquid 10 ml PO Q6H PRN (Reason: Cough) RF: 0 Symbicort 160-4.5 mcg/actuation Hfa Aerosol Inhaler 2 puff INHALATION BID RF: 0 Stand-Alone Forms: [facility] Discharge Orders: Discharge Order (Routine); Ordered 08/24/18 Ordered By: Tino Regan Admission Data Admit Date/Time: 08/22/18 17:55 Attending Provider: Tino Regan Admit Provider: Emeli Sandoval Primary Care Provider: PCP,MAXIM Other Providers: Emeli Sandoval Service: Medical Other Interventions: Discharge Summary Assessment (RN) Last Done: 08/24/18 13:43 DC Date/Time DO NOT enter until pt leaves facility: 08/24/18 14:42
[2018-08-24] MEDS: levoFLOXacin 500 MG TAB PO SCH (13:38)
[2018-08-24 13:44] VITALS: BP 127/77; PULSE 57; O2SAT 92
== END 2018-08-24 14:42 | disposition home or self-care (01) | DRG 202 ==
LOC: ED 14:25 → 4W 17:55

== ENCOUNTER 2018-09-09 16:26 | Inpatient (IN) ==
[2018-09-09] MEDS ORDERED: ALBUT/IPRATROP 3MG/0.5MG NEB 3 ML VIAL INH STA (16:44)
[2018-09-09] MEDS ORDERED: methylPREDNISolone 125 MG/2 ML VIAL IV STA (16:44)
[2018-09-09] MEDS ORDERED: LEVOFLOXACIN/D5W 750 MG/150 ML BAG IV STA (16:44)
[2018-09-09] MEDS ORDERED: SODIUM CHLORIDE 0.9% 1000ML 1,000 ML IV SCH (16:45)
--- NOTE | 2018-09-09 16:59 | XRay Report ---
XR chest 1V portable HISTORY: Dyspnea COMPARISON: Chest 08/22/2018. FINDINGS: Emphysema and bilateral mid to lower lung zone interstitial thickening persists. No pneumot horax. No pleural effusions. The heart is normal in size. IMPRESSION: No significant change compared to the prior study. No acute process. Emphysema. Electronically signed by: Martin Perez M.D. 09/09/2018 4:57 PM
[2018-09-09 17:07] LABS: Basophils # (auto) 0.01 K/uL (0-0.2); Basophils % (auto) 0.1 %; Eosinophils # (auto) 0.04 K/uL (0-0.5); Eosinophils % (auto) 0.4 %; Hematocrit (blood only) 42.7 % (42-52); Hemoglobin 13.9 g/dL (14.0-18.0); Immature Granulocytes # (auto) 0.03 K/uL (0.00-0.02); Immature Granulocytes % (auto) 0.3 %; Lymphocytes # (auto) 1.75 K/uL (1.2-3.4); Lymphocytes % (auto) 17.1 %; Mean Corpuscular Hgb Conc 32.6 g/dL (32-36); Mean Corpuscular Volume 88.2 fL (80-100); Mean Platelet Volume 9.5 fL (7.4-10.4); Monocytes # (auto) 0.74 K/uL (0.11-0.59); Monocytes % (auto) 7.2 %; Neutrophils # (auto) 7.67 K/uL (1.4-6.5); Neutrophils % (auto) 74.9 %; Platelet Count 144 K/uL (130-400); RDW Coefficient of Variation 16.5 % (11.5-14.5); RDW Standard Deviation 53.5 fL (36.4-46.3); Red Blood Count 4.84 M/uL (4.7-6.1); White Blood Count 10.24 K/uL (4.8-10.8)
[2018-09-09 17:17] LABS: Base Excess VBG 5.9 mEq/L; Oxygen Saturation VBG 78.9 %; pH VBG 7.36 (7.36-7.41)
[2018-09-09 17:23] LABS: Alanine Aminotransferase 27 U/L (12-78); Albumin Level 3.7 gm/dl (3.4-5.0); Aspartate Aminotransferase 18 U/L (15-37); BUN Creatinine Ratio 18.7 (10-20); Blood Urea Nitrogen 18 mg/dl (7-18); Calcium 9.3 mg/dl (8.5-10.1); Carbon Dioxide 33 mmol/L (21-32); Chloride 102 mmol/L (98-107); Creatinine Clr Calc Pharmacy 76.8 ml/min; Est GFR (African American) 94.9; Est GFR (Non-African American) 81.9; Glucose 113 mg/dl (70-99); Partial Thromboplastin Ratio 0.9; Partial Thromboplastin Time 23.1 Seconds (21.0-31.0); Potassium 3.8 mmol/L (3.5-5.1); Prothrombin Time 10.2 Seconds (9.0-12.0); Sodium 138 mmol/L (136-145)
[2018-09-09 17:28] LABS: Alkaline Phosphatase 86 U/L (45-117); Bilirubin,Total 0.3 mg/dl (0.2-1); Globulin 3.7 gm/dl (2.5-4.0); Total Protein 7.4 gm/dl (6.4-8.2); Troponin I < 0.015 ng/ml (0-0.045)
[2018-09-09 17:48] LABS: Influenza A virus by PCR Neg for Influ A (Neg); Influenza B virus by PCR Neg for Influ B (Neg)
[2018-09-09 18:08] LABS: Appearance Urine Turbid (Clear); Bacteria Urine Automated Negative (Negative); Bilirubin Urine Negative (Negative); Blood Urine 1+ (Negative); Color Urine Yellow; Epithelial Cell Urine Auto 0-5 /lpf (0-5); Glucose Urine UA Negative (Negative); Ketones Urine Negative (Negative); Leukocyte Esterase Urine 3+ (Negative); Nitrite Urine Negative (Negative); Protein Urine Negative (Negative); Specific Gravity Urine 1.017 (1.000-1.030); Urobilinogen Urine Negative (Negative); WBC Urine Automated >30 /hpf (0-5); pH Urine 5.5 (4.5-7.5)
--- NOTE | 2018-09-09 18:22 | History & Physical Report ---
Date of Service September 09, 2018 Assessment & Plan (1) COPD exacerbation: Admitted with exacerbation of COPD secondary to acute bronchitis Requiring more than usual amount of oxygen at home Uses 2 L via nasal cannula oxygen continuously at home Started on intravenous Solu-Medrol and nebulized bronchodilator Continue other medications for COPD Cannot tolerate prednisone but continues Solu-Medrol and Medrol Dosepak Present on Admission?: Yes (2) Bronchitis: We will start doxycycline No pneumonia on chest x-ray (3) HTN (hypertension): The patient seems to be controlled Continue with current medications (4) PTSD (post-traumatic stress disorder): No acute delirium and confusion Continue current medications DVT prophylaxis Subcu heparin CODE STATUS Full History of Present Illness Chief Complaint: Shortness of breath and hypoxemia since Saturday last Primary Care Provider: NO PCP He is a 68-year-old male with significant past medical history of COPD on home oxygen, chronic respiratory failure, hypertension, posttraumatic stress disorder, GERD, and history of kidney stone and osteoarthritis has been complaining of increasing shortness of breath with cough for the last few days. He has been complaining of greenish yellow phlegm with the cough and requiring more than usual flow of oxygen to maintain saturation. He denies any fever and/or chills and he is not improved for the last few days. He denies any chest pain and/or palpitation, no abdominal pain and/or nausea and/or vomiting. He was noted to have tachypnea and tachycardic in the emergency room with wheezing and decreased breathing sound on examination. Chest x-ray did not show pneumonia. He was admitted to medical unit for continuation of care. Allergies Allergy/AdvReac Type Severity Reaction Status Date / Time bee venom protein (honey bee) Allergy Severe ANAPHYLAXIS Verified 08/22/18 17:55 pneumococcal vaccine Allergy Severe SWELLING Verified 08/22/18 17:55 Sapmgjg-Vkp-Vlp Reductase Allergy Severe CPK'S GO Verified 08/22/18 17:55 Inhibitor THROUGH ROOF amoxicillin Allergy Intermediate FACIAL Verified 08/22/18 17:55 SWELLING (EYES SWELLED SHUT) clavulanic acid Allergy Intermediate FACIAL Verified 08/22/18 17:55 SWELLING (EYES SWELLED SHUT) prednisone AdvReac Severe confusion Verified 08/22/18 17:55 and agitation Home Medications Home Medications Medication Instructions Recorded Confirmed Type Spiriva with HandiHaler 1 cap INHALATION DAILY 04/08/18 09/09/18 History buspirone 5 mg PO HS 04/08/18 09/09/18 History cetirizine 10 mg PO DAILY PRN 04/08/18 09/09/18 History omeprazole 20 mg PO BID 04/08/18 09/09/18 History sertraline 200 mg PO HS 04/08/18 09/09/18 History trazodone 150 mg PO HS 04/08/18 09/09/18 History budesonide-formoterol 2 puff INHALATION Q12H 05/22/18 09/09/18 History diltiazem HCl 120 mg PO DAILY 05/22/18 09/09/18 History albuterol sulfate 2 puff INHALATION Q6H PRN 07/04/18 09/09/18 History albuterol sulfate 2.5 mg CONTINUOUS NEBULIZATION QID 07/04/18 09/09/18 History PRN finasteride 5 mg PO DAILY 07/04/18 09/09/18 History Symbicort 2 puff INHALATION BID 08/22/18 09/09/18 History epinephrine [EpiPen] 0.3 mg IM Q3H PRN 08/22/18 09/09/18 History guaifenesin 10 ml PO Q6H PRN 08/22/18 09/09/18 History guaifenesin 400 mg PO BID 08/22/18 09/09/18 History methylprednisolone [Medrol (Wilman)] 4 mg PO DIRECTED #21 ea 08/24/18 09/09/18 Rx cholecalciferol (vitamin D3) 50,000 units PO .WEEKLY ON Saturday09/09/18 09/09/18 History Past Med/Surg History Medical History History of tobacco abuse (Chronic) HTN (hypertension) (Chronic) GERD (gastroesophageal reflux disease) (Chronic) PTSD (post-traumatic stress disorder) (Chronic) COPD (chronic obstructive pulmonary disease) with emphysema (Chronic) Kidney stones (Resolved) Osteoarthritis (Chronic) 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) Pneumonia (Resolved) Thrombophlebitis arm (Resolved) Depression Emphysema/COPD PTSD (post-traumatic stress disorder) Surgical History History of extraction of renal calculus (Resolved) History of appendectomy (Resolved) History of tonsillectomy (Resolved) Loss of teeth due to extraction (Chronic) H/O hernia repair S/P arthroscopic surgery of right knee Family History Mother Colon cancer Father FH: kidney cancer Other Cancer Social History Preferred Language: Swedish Beliefs That Will Affect Care: None marital status: Current Living Situation: Spouse 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 Feels Safe at Home: Yes Smoking Status: Former smoker Hx Alcohol Use: Yes Hx Substance Use: No Review of Systems All systems reviewed & are unremarkable except as noted in HPI & below Physical Exam Vital Signs (Past 24 Hours): Last Vital Signs Temp 36.7 C 09/09/18 16:32 Pulse 78 09/09/18 17:03 Resp 19 09/09/18 17:03 BP 129/77 09/09/18 16:32 Pulse Ox 98 09/09/18 17:03 Physical Exam: Minimal distress at rest with shortness of breath Constitutional: well nourished and + ill appearing Eyes: PERRL, conjunctivae normal, anicteric sclerae ENMT: external ear and nose normal, oropharynx normal Neck: trachea midline, no thyromegaly Respiratory: + respiratory distress, + labored breathing and + uses accessory muscles Auscultation: + diminished lung sounds and + wheezes (Moderate wheezing bilaterally) Cardiovascular: Rate/Rhythm: regular rate, regular rhythm and + tachycardic Heart Sounds: normal S1 and normal S2 Extremities: no edema Gastrointestinal (Abdomen): Inspection/Auscultation: abdomen normal to inspection and normal bowel sounds Percussion/Palpation: abdomen soft Neurologic: PERRL, EOMI, accommodation nl, no face palsy, no dysarthria Psychiatric: A+Ox3, euthymic affect Results & Data Laboratory Results Short CBC 09/09/18 Range/Units 16:59 WBC 10.24 (4.8-10.8) K/uL Hgb 13.9 L (14.0-18.0) g/dL Hct 42.7 (42-52) % Plt Count 144 (130-400) K/uL BMP 09/09/18 16:59 Sodium 138 Potassium 3.8 Chloride 102 Carbon Dioxide 33 H BUN 18 Creatinine 0.95 Glucose 113 H Calcium 9.3 Cardiac Enzymes 09/09/18 Range/Units 16:59 Troponin I < 0.015 (0-0.045) ng/ml Liver Function 09/09/18 Range/Units 16:59 Total Bilirubin 0.3 (0.2-1) mg/dl AST 18 (15-37) U/L ALT 27 (12-78) U/L Alkaline Phosphatase 86 (45-117) U/L Albumin 3.7 (3.4-5.0) gm/dl Urine 09/09/18 Range/Units 17:50 Urine Color Yellow Urine Appearance Turbid H (Clear) Urine pH 5.5 (4.5-7.5) Ur Specific [place] 1.017 (1.000-1.030) Urine Protein Negative (Negative) Urine Glucose (UA) Negative (Negative) Medications Administered Current Inpatient Medications Doxycycline Hyclate (Vibramycin) 100 mg PO BID PEARL Stop: 09/16/18 20:59 Heparin Sodium (Porcine) (Heparin Sodium (Porcine)) 5,000 units SQ Q8 PEARL Stop: 10/09/18 21:59 Methylprednisolone 40 mg/ (Syringe) 0.64 mls @ 1.5 mls/min IV Q8H PEARL Stop: 10/09/18 18:14
[2018-09-09] MEDS ORDERED: guaiFENesin SUGAR FREE 200 MG/10 ML UDC PO PRN (19:15)
[2018-09-09] MEDS ORDERED: ALBUTEROL HFA 8 GM INHALER INH PRN (19:15)
[2018-09-09] MEDS ORDERED: CETIRIZINE HCL 10 MG TABLET PO PRN (19:15)
[2018-09-09] MEDS ORDERED: BUDESONIDE/FORMOTEROL FUMARATE 160/4.5 60 PUFFS/INHALER INH SCH (19:15)
[2018-09-09] MEDS ORDERED: ACETAMINOPHEN 500 MG TAB PO PRN (20:01)
[2018-09-09] MEDS: SERTRALINE HCL 100 MG TABLET PO SCH (20:34)
[2018-09-09] MEDS: guaiFENesin 200 MG TAB PO SCH (20:35)
[2018-09-09] MEDS: PANTOprazole 40 MG TAB PO SCH (20:35)
[2018-09-09] MEDS: TRAZODONE HCL 50 MG TAB PO SCH (20:36)
[2018-09-09] MEDS: DOXYCYCLINE HYCLATE 100 MG CAP PO SCH (20:38)
[2018-09-09] MEDS: BUDESONIDE/FORMOTEROL FUMARATE 160/4.5 60 PUFFS/INHALER INH SCH (20:39)
[2018-09-09] MEDS: HEPARIN SOD 5,000 UNIT/0.5 ML VIAL SQ SCH (20:42)
--- NOTE | 2018-09-09 23:10 | Emergency Department Note ---
Entered by Lakeisha Elias acting as a scribe for Gerson Judd DO History of Present Illness General Chief complaint: Shortness of Breath/Dyspnea Stated complaint: SOB, CHEST PAIN Time Seen by Provider: 09/09/18 16:36 Source: patient Mode of arrival: ambulatory Limitations: no limitations History of Present Illness Provider complaint: shortness of breath Onset (ago): day(s) 4 Location: chest Pain Consistency: + other (persistent) Maximum Pain Intensity: 7 Quality: + other (SOB) Associated symptoms: + denies other symptoms (abd pain, diarrhea), + chest pain, + cough and + other (rhinorrhea); no nausea/vomiting The patient is a 68 year old male who presents to the Emergency Room with complaints of a persistent shortness of breath that began last Saturday. The patient reports that he wears 2 L of nasal cannula oxygen at baseline and notes that his pulse ox this morning was 74. He states that he has also been coughing and had a runny nose but denies any abdominal pain, nausea, vomiting or diarrhea. He reports that he does have a COPD and is a former smoker, but denies a history of asthma. He notes that he has also had chest pain which he describes as stabbing and notes it is exacerbated when coughing. No other exacerbating or remitting factors. Home Medications Home Medications Medication Instructions Recorded Confirmed Type Spiriva with HandiHaler 1 cap INHALATION DAILY 04/08/18 09/09/18 History buspirone 5 mg PO HS 04/08/18 09/09/18 History cetirizine 10 mg PO DAILY PRN 04/08/18 09/09/18 History omeprazole 20 mg PO BID 04/08/18 09/09/18 History sertraline 200 mg PO HS 04/08/18 09/09/18 History trazodone 150 mg PO HS 04/08/18 09/09/18 History budesonide-formoterol 2 puff INHALATION Q12H 05/22/18 09/09/18 History diltiazem HCl 120 mg PO DAILY 05/22/18 09/09/18 History albuterol sulfate 2 puff INHALATION Q6H PRN 07/04/18 09/09/18 History albuterol sulfate 2.5 mg CONTINUOUS NEBULIZATION QID 07/04/18 09/09/18 History PRN finasteride 5 mg PO DAILY 07/04/18 09/09/18 History Symbicort 2 puff INHALATION BID 08/22/18 09/09/18 History epinephrine [EpiPen] 0.3 mg IM Q3H PRN 08/22/18 09/09/18 History guaifenesin 10 ml PO Q6H PRN 08/22/18 09/09/18 History guaifenesin 400 mg PO BID 08/22/18 09/09/18 History methylprednisolone [Medrol (Wilman)] 4 mg PO DIRECTED #21 ea 08/24/18 09/09/18 Rx cholecalciferol (vitamin D3) 50,000 units PO .WEEKLY ON Saturday09/09/18 09/09/18 History Allergies Allergy/AdvReac Type Severity Reaction Status Date / Time bee venom protein (honey bee) Allergy Severe ANAPHYLAXIS Verified 08/22/18 17:55 pneumococcal vaccine Allergy Severe SWELLING Verified 08/22/18 17:55 [id number] Reductase Allergy Severe CPK'S GO Verified 08/22/18 17:55 Inhibitor THROUGH ROOF amoxicillin Allergy Intermediate FACIAL Verified 08/22/18 17:55 SWELLING (EYES SWELLED SHUT) clavulanic acid Allergy Intermediate FACIAL Verified 08/22/18 17:55 SWELLING (EYES SWELLED SHUT) prednisone AdvReac Severe confusion Verified 08/22/18 17:55 and agitation Past Med/Surg History Medical History History of tobacco abuse (Chronic) HTN (hypertension) (Chronic) GERD (gastroesophageal reflux disease) (Chronic) PTSD (post-traumatic stress disorder) (Chronic) COPD (chronic obstructive pulmonary disease) with emphysema (Chronic) Kidney stones (Resolved) Osteoarthritis (Chronic) 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) Pneumonia (Resolved) Thrombophlebitis arm (Resolved) Depression Emphysema/COPD PTSD (post-traumatic stress disorder) Surgical History History of extraction of renal calculus (Resolved) History of appendectomy (Resolved) History of tonsillectomy (Resolved) Loss of teeth due to extraction (Chronic) H/O hernia repair S/P arthroscopic surgery of right knee Family History Mother Colon cancer Father FH: kidney cancer Other Cancer Social History Preferred Language: Chinese Communication Ability: Effective Electronic Coils Supervisor Required: No Beliefs That Will Affect Care: None marital status: Current Living Situation: Spouse Current Living Situation Comment: lives with spouse 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 and A total of 10 systems reviewed and were otherwise negative Physical Exam Vital Signs Vital Signs - 24 hr 09/09/18 16:32 09/09/18 17:01 09/09/18 17:03 Temperature 36.7 C Temperature Source Oral Sepsis Recent Fever Within 48 Hours No Sepsis New/Unexplained Change in Mental Status No Sepsis Action Taken by Nursing No Action Required Pulse Rate 94 H 78 Pulse Rate [Right Brachial] Pulse Rate from SpO2 Sensor Pulse Rhythm Regular Pulse Rhythm [Right Brachial] Pulse Strength [Right Brachial] Respiratory Rate 22 19 Respiratory Effort / Characteristics Respiratory Depth Respiratory Pattern Blood Pressure 129/77 Blood Pressure [Right Arm] Blood Pressure Mean 94 Blood Pressure Mean [Right Arm] Blood Pressure Position [Right Arm] Pulse Oximetry 90 98 98 Oxygen Delivery Method Nasal Cannula Nasal Cannula Nasal Cannula Oxygen Flow Rate 4 4 4 09/09/18 17:08 09/09/18 17:09 09/09/18 17:30 Temperature Temperature Source Sepsis Recent Fever Within 48 Hours Sepsis New/Unexplained Change in Mental Status Sepsis Action Taken by Nursing Pulse Rate 76 77 Pulse Rate [Right Brachial] Pulse Rate from SpO2 Sensor 77 76 Pulse Rhythm Pulse Rhythm [Right Brachial] Pulse Strength [Right Brachial] Respiratory Rate 19 18 Respiratory Effort / Characteristics Respiratory Depth Respiratory Pattern Blood Pressure 133/78 123/93 Blood Pressure [Right Arm] Blood Pressure Mean 96 103 Blood Pressure Mean [Right Arm] Blood Pressure Position [Right Arm] Pulse Oximetry 98 98 Oxygen Delivery Method Nasal Cannula Nasal Cannula Nasal Cannula Oxygen Flow Rate 4 4 4 09/09/18 18:15 09/09/18 18:47 09/09/18 19:21 Temperature 36.6 C Temperature Source Oral Sepsis Recent Fever Within 48 Hours Sepsis New/Unexplained Change in Mental Status Sepsis Action Taken by Nursing Pulse Rate 76 76 Pulse Rate [Right Brachial] 78 Pulse Rate from SpO2 Sensor 77 Pulse Rhythm Pulse Rhythm [Right Brachial] Pulse Strength [Right Brachial] Respiratory Rate 18 18 22 Respiratory Effort / Characteristics SOB on Exertion Respiratory Depth Normal Respiratory Pattern Tachypnea Blood Pressure 134/78 134/78 Blood Pressure [Right Arm] 145/81 H Blood Pressure Mean 96 Blood Pressure Mean [Right Arm] 102 Blood Pressure Position [Right Arm] Sitting Pulse Oximetry 97 97 95 Oxygen Delivery Method Nasal Cannula Room Air Nasal Cannula Oxygen Flow Rate 4 5 09/09/18 23:01 Temperature 36.6 C Temperature Source Oral Sepsis Recent Fever Within 48 Hours Sepsis New/Unexplained Change in Mental Status Sepsis Action Taken by Nursing Pulse Rate Pulse Rate [Right Brachial] 74 Pulse Rate from SpO2 Sensor Pulse Rhythm Pulse Rhythm [Right Brachial] Regular Pulse Strength [Right Brachial] Normal Respiratory Rate 20 Respiratory Effort / Characteristics Non-Labored Respiratory Depth Normal Respiratory Pattern Regular Blood Pressure Blood Pressure [Right Arm] 132/62 Blood Pressure Mean Blood Pressure Mean [Right Arm] 85 Blood Pressure Position [Right Arm] Lying Pulse Oximetry 94 Oxygen Delivery Method Nasal Cannula Oxygen Flow Rate 5 GENERAL: Sitting up in bed, alert, disheveled, dyspneic with conversation, on 5 L nasal cannula. EYE EXAM: normal conjunctiva. OROPHARYNX: no exudate, no erythema, lips, buccal mucosa, and tongue normal and mucous membranes are moist NECK: supple, no nuchal rigidity, no adenopathy, non-tender LUNGS: Wheezing at bilateral bases. HEART: no murmurs, S1 normal and S2 normal ABDOMEN: abdomen soft, non-tender, normo-active bowel, sounds, no masses, no rebound or guarding. BACK: Back is symmetrical on inspection and there is no deformity, no midline tenderness, no CVA tenderness. SKIN: no rashes and no bruising UPPER EXTREMITIES: upper extremities are grossly normal. LOWER EXTREMITIES: No pitting edema. Calves are equal bilaterally. NEURO EXAM: Normal sensorium, cranial nerves II-XII grossly intact, normal speech, no gross weakness of arms, no gross weakness of legs. Course ED COURSE: Vital signs were reviewed and the patient is hypoxic. The patients medical record was reviewed The above diagnostic studies were performed and reviewed. ED treatments and interventions as stated above. 1640: The patient was evaluated in room C12A. A complete history and physical examination was performed. 1742: I discussed my findings with the patient and he understands and agrees with the treatment plan. Based on the patients age, coexisting illnesses, exam and lab findings the decision to treat as an inpatient was made. The patient remained stable while under my care. The patient will be evaluated for further management. Administered Medications Acetaminophen (Tylenol) 1,000 mg PO Q6H PRN PRN Reason: Pain Stop: 10/09/18 20:00 Last Admin: 09/09/18 20:35 Dose: 1,000 mg Documented by: [id number] Budesonide/Formoterol Fumarate (Symbicort 160mcg/4.5mcg) 2 puffs INH BID PEARL Stop: 10/09/18 20:59 Last Admin: 09/09/18 20:39 Dose: 2 puffs Documented by: [id number] Buspirone HCl (Buspar) 5 mg PO HS PEARL Stop: 10/09/18 20:59 Last Admin: 09/09/18 20:37 Dose: 5 mg Documented by: [id number] Doxycycline Hyclate (Vibramycin) 100 mg PO BID PEARL Stop: 09/16/18 20:59 Last Admin: 09/09/18 20:38 Dose: 100 mg Documented by: [id number] Guaifenesin (Organidin Nr) 400 mg PO BID PEARL Stop: 10/09/18 20:59 Last Admin: 09/09/18 20:35 Dose: 400 mg Documented by: [id number] Heparin Sodium (Porcine) (Heparin Sodium (Porcine)) 5,000 units SQ Q8 PEARL Stop: 10/09/18 21:59 Last Admin: 09/09/18 20:42 Dose: 5,000 units Documented by: [id number] Cosigned by: [id number] Pantoprazole Sodium (Protonix) 40 mg PO BID PEARL Stop: 10/09/18 20:59 Last Admin: 09/09/18 20:35 Dose: 40 mg Documented by: [id number] Sertraline HCl (Zoloft) 200 mg PO HS PEARL Stop: 10/09/18 20:59 Last Admin: 09/09/18 20:34 Dose: 200 mg Documented by: [id number] Trazodone HCl (Desyrel) 150 mg PO HS PEARL Stop: 10/09/18 20:59 Last Admin: 09/09/18 20:36 Dose: 150 mg Documented by: [id number] Discontinued Medications Albuterol (Duoneb) 9 ml INH NOW STA Stop: 09/09/18 16:45 Last Admin: 09/09/18 17:28 Dose: 9 ml Documented by: [id number] Levofloxacin/Dextrose (Levaquin/D5w) 750 mg in 150 mls @ 100 mls/hr IV NOW STA Stop: 09/09/18 18:13 Last Infusion: 09/09/18 18:58 Dose: 0 mls/hr Documented by: [id number] Admin: 09/09/18 17:28 Dose: 100 mls/hr Documented by: [id number] Sodium Chloride (Nss 1000ml) 1,000 mls @ 999 mls/hr IV .Q1H1M PEARL Stop: 09/09/18 17:45 Last Infusion: 09/09/18 18:47 Dose: 0 mls/hr Documented by: [id number] Admin: 09/09/18 17:34 Dose: 999 mls/hr Documented by: [id number] Methylprednisolone (Solumedrol) 40 mg IV NOW STA Stop: 09/09/18 16:45 Last Admin: 09/09/18 17:29 Dose: Not Given Documented by: [id number] Methylprednisolone (Solumedrol) Confirm Administered Dose 40 mg .ROUTE .STK-MED ONE Stop: 09/09/18 17:19 Last Admin: 09/09/18 17:28 Dose: 40 mg Documented by: [id number] Medical Decision Making Differential Diagnosis Differential diagnoses includes but is not limited to: pneumonia, bronchitis, COPD/Asthma exacerbation, pneumothorax, pulmonary embolism, congestive heart failure, and acute coronary syndrome. Home Medications Current Medication List: was personally reviewed by me Laboratory Data Attestation: I reviewed the patient's lab results. Result diagrams: 09/09/18 16:59 09/09/18 16:59 Lab Results 09/09/18 09/09/18 09/09/18 Range/Units 16:59 16:59 16:59 WBC 10.24 (4.8-10.8) K/uL RBC 4.84 (4.7-6.1) M/uL Hgb 13.9 L (14.0-18.0) g/dL Hct 42.7 (42-52) % MCV 88.2 (80-100) fL MCH 28.7 (25-34) pg MCHC 32.6 (32-36) g/dL RDW Std Deviation 53.5 H (36.4-46.3) fL RDW Coeff of Ren 16.5 H (11.5-14.5) % Plt Count 144 (130-400) K/uL MPV 9.5 (7.4-10.4) fL Immature Gran % (Auto) 0.3 % Neut % (Auto) 74.9 % Lymph % (Auto) 17.1 % [place] % (Auto) 7.2 % Eos % (Auto) 0.4 % Baso % (Auto) 0.1 % Immature Gran # (Auto) 0.03 H (0.00-0.02) K/uL Neut # (Auto) 7.67 H (1.4-6.5) K/uL Lymph # (Auto) 1.75 (1.2-3.4) K/uL [place] # (Auto) 0.74 H (0.11-0.59) K/uL Eos # (Auto) 0.04 (0-0.5) K/uL Baso # (Auto) 0.01 (0-0.2) K/uL PT 10.2 (9.0-12.0) Seconds INR 1.0 (0.9-1.1) APTT 23.1 (21.0-31.0) Seconds PTT Ratio 0.9 VBG pH 7.36 (7.36-7.41) VBG pCO2 60 H (38-50) mmHg VBG pO2 45 mmHg VBG HCO3 33 mmol/L VBG O2 Saturation 78.9 % VBG Base Excess 5.9 mEq/L Barometric Pressure 734.3 mm/Hg Sodium (136-145) mmol/L Potassium (3.5-5.1) mmol/L Chloride (98-107) mmol/L Carbon Dioxide (21-32) mmol/L Anion Gap (3-11) BUN (7-18) mg/dl Creatinine (0.6-1.4) mg/dl Est Cr Clr Drug Dosing ml/min Est GFR ( Amer) Est GFR (Non-Af Amer) BUN/Creatinine Ratio (10-20) Glucose (70-99) mg/dl Calcium (8.5-10.1) mg/dl Total Bilirubin (0.2-1) mg/dl AST (15-37) U/L ALT (12-78) U/L Alkaline Phosphatase (45-117) U/L Troponin I (0-0.045) ng/ml Total Protein (6.4-8.2) gm/dl Albumin (3.4-5.0) gm/dl Globulin (2.5-4.0) gm/dl Albumin/Globulin Ratio (0.9-2) Urine Color Urine Appearance (Clear) Urine pH (4.5-7.5) Ur Specific [place] (1.000-1.030) Urine Protein (Negative) Urine Glucose (UA) (Negative) Urine Ketones (Negative) Urine Blood (Negative) Urine Nitrite (Negative) Urine Bilirubin (Negative) Urine Urobilinogen (Negative) Ur Leukocyte Esterase (Negative) Urine WBC (Auto) (0-5) /hpf Urine RBC (Auto) (0-4) /hpf U Hyaline Cast (Auto) (0-5) /lpf U Epithel Cells (Auto) (0-5) /lpf Urine Bacteria (Auto) (Negative) Urine Yeast (None Prsent) Influenza Type A (PCR) (Neg) Influenza Type B (PCR) (Neg) 09/09/18 09/09/18 09/09/18 Range/Units 16:59 17:07 17:50 WBC (4.8-10.8) K/uL RBC (4.7-6.1) M/uL Hgb (14.0-18.0) g/dL Hct (42-52) % MCV (80-100) fL MCH (25-34) pg MCHC (32-36) g/dL RDW Std Deviation (36.4-46.3) fL RDW Coeff of Ren (11.5-14.5) % Plt Count (130-400) K/uL MPV (7.4-10.4) fL Immature Gran % (Auto) % Neut % (Auto) % Lymph % (Auto) % [place] % (Auto) % Eos % (Auto) % Baso % (Auto) % Immature Gran # (Auto) (0.00-0.02) K/uL Neut # (Auto) (1.4-6.5) K/uL Lymph # (Auto) (1.2-3.4) K/uL [place] # (Auto) (0.11-0.59) K/uL Eos # (Auto) (0-0.5) K/uL Baso # (Auto) (0-0.2) K/uL PT (9.0-12.0) Seconds INR (0.9-1.1) APTT (21.0-31.0) Seconds PTT Ratio VBG pH (7.36-7.41) VBG pCO2 (38-50) mmHg VBG pO2 mmHg VBG HCO3 mmol/L VBG O2 Saturation % VBG Base Excess mEq/L Barometric Pressure mm/Hg Sodium 138 (136-145) mmol/L Potassium 3.8 (3.5-5.1) mmol/L Chloride 102 (98-107) mmol/L Carbon Dioxide 33 H (21-32) mmol/L Anion Gap 3.0 (3-11) BUN 18 (7-18) mg/dl Creatinine 0.95 (0.6-1.4) mg/dl Est Cr Clr Drug Dosing 76.8 ml/min Est GFR ( Amer) 94.9 Est GFR (Non-Af Amer) 81.9 BUN/Creatinine Ratio 18.7 (10-20) Glucose 113 H (70-99) mg/dl Calcium 9.3 (8.5-10.1) mg/dl Total Bilirubin 0.3 (0.2-1) mg/dl AST 18 (15-37) U/L ALT 27 (12-78) U/L Alkaline Phosphatase 86 (45-117) U/L Troponin I < 0.015 (0-0.045) ng/ml Total Protein 7.4 (6.4-8.2) gm/dl Albumin 3.7 (3.4-5.0) gm/dl Globulin 3.7 (2.5-4.0) gm/dl Albumin/Globulin Ratio 1.0 (0.9-2) Urine Color Yellow Urine Appearance Turbid H (Clear) Urine pH 5.5 (4.5-7.5) Ur Specific [place] 1.017 (1.000-1.030) Urine Protein Negative (Negative) Urine Glucose (UA) Negative (Negative) Urine Ketones Negative (Negative) Urine Blood 1+ H (Negative) Urine Nitrite Negative (Negative) Urine Bilirubin Negative (Negative) Urine Urobilinogen Negative (Negative) Ur Leukocyte Esterase 3+ H (Negative) Urine WBC (Auto) >30 H (0-5) /hpf Urine RBC (Auto) 5-10 H (0-4) /hpf U Hyaline Cast (Auto) 1-5 (0-5) /lpf U Epithel Cells (Auto) 0-5 (0-5) /lpf Urine Bacteria (Auto) Negative (Negative) Urine Yeast Budding H (None Prsent) Influenza Type A (PCR) Neg for Influ A (Neg) Influenza Type B (PCR) Neg for Influ B (Neg) Imaging Data Radiologist's Impression: Radiology results as stated below per my review and the radiologist's interpretation: XR chest 1V portable HISTORY: Dyspnea COMPARISON: Chest 08/22/2018. FINDINGS: Emphysema and bilateral mid to lower lung zone interstitial thickening persists. No pneumothorax. No pleural effusions. The heart is normal in size. IMPRESSION: No significant change compared to the prior study. No acute process. Emphysema. Electronically signed by: Martin Perez M.D. 09/09/2018 4:57 PM ECG Data Attestation: I personally reviewed and interpreted this ECG as follows: Indication: SOB/dyspnea Rate (beats per minute): 75 Rhythm: sinus rhythm Findings: + other (normal axis) and + T-wave inversion (Septal); no PVC Blood Pressure Blood Pressure Findings: Normal blood pressure Blood Pressure Disposition: did not require urgent referral MDM Narrative Patient is a 60-year-old male who presents the ER for cough, runny nose and shortness of breath which is been present for the past several days and gradually getting worse. Normally on 2 L nasal cannula secondary to COPD but recently within the past 4-5 hours had increased to 4 L. Upon presentation he was placed on 5 L pulse ox was 90%. He was given an hour-long neb treatment along with IV steroids and IV Levaquin with a cough and congestion. Chest x-ray shows no focal infiltrate. Patient was updated bedside. EKG was unchanged. Labs show no significant leukocytosis or anemia. VBG with a pH of 60. BMP along with LFTs bilirubin was unremarkable. UA with yeast which I do favor is contaminant. Patient was updated bedside admitted to the hospitalist for further workup of his COPD exacerbation. Impression & Plan COPD exacerbation Discharge Plan Visit Data *Final* Discharge Date/Time: 09/09/18 18:47 Chief Complaint: Shortness of Breath/Dyspnea Stated Complaint: SOB, CHEST PAIN ED Provider: Gerson Judd Discharge Problem: COPD exacerbation Patient Disposition: Admitted As Inpatient Discharge Instructions Interventions: ED Discharge Assessment Last Done: 09/09/18 18:47 The scribe's documentation has been prepared under my direction and personally reviewed by me in its entirety. I confirm that the note above accurately reflects all work, treatment, procedures, and medical decision making performed by me.
[2018-09-10] MEDS: methylPREDNISolone 40 MG in SYRINGE 0 ML IV SCH ×3 (01:51→18:16)
[2018-09-10] MEDS: HYDROCODONE/HOMATROPINE SYRUP 5MG/1.5MG 5ML UDP PO PRN ×5 (02:34→21:26)
[2018-09-10] MEDS: HEPARIN SOD 5,000 UNIT/0.5 ML VIAL SQ SCH ×3 (05:48→21:29)
[2018-09-10] MEDS: FINASTERIDE 5 MG TAB PO SCH (08:51)
[2018-09-10] MEDS: DOXYCYCLINE HYCLATE 100 MG CAP PO SCH ×2 (08:51→21:28)
[2018-09-10] MEDS: dilTIAZem ER 120 MG CAPCR PO SCH (08:51)
[2018-09-10] MEDS: PANTOprazole 40 MG TAB PO SCH ×2 (08:52→21:27)
[2018-09-10] MEDS: guaiFENesin 200 MG TAB PO SCH ×2 (08:52→21:27)
[2018-09-10] MEDS: BUDESONIDE/FORMOTEROL FUMARATE 160/4.5 60 PUFFS/INHALER INH SCH ×2 (08:53→21:29)
[2018-09-10] MEDS: TIOTROPIUM BROMIDE 5 PUFF/90 MCG INH INH SCH (08:54)
[2018-09-10] MEDS: ALBUTEROL 0.083% NEBU SOLN 3 ML VIAL NEB PRN ×2 (15:53→23:55)
[2018-09-10] MEDS: ALBUTEROL HFA 8 GM INHALER INH SCH (16:40)
--- NOTE | 2018-09-10 16:48 | Hospitalist Progress Note ---
Date of Service September 10, 2018 Assessment & Plan (1) COPD exacerbation: Admitted with exacerbation of COPD secondary to acute bronchitis Requiring more than usual amount of oxygen at home Uses 2 L via nasal cannula oxygen continuously at home Started on intravenous Solu-Medrol and nebulized bronchodilator Continue other medications for COPD Cannot tolerate prednisone but continues Solu-Medrol and Medrol Dosepak Not any better today We will continue current medications Hycodan cough syrup has been added (2) Bronchitis: We will start doxycycline No pneumonia on chest x-ray (3) HTN (hypertension): The patient seems to be controlled Continue with current medications (4) PTSD (post-traumatic stress disorder): No acute delirium and confusion Continue current medications DVT prophylaxis Subcu heparin CODE STATUS Full Subjective 09/10 The patient was seen and examined in medical floor He was admitted with exacerbation of COPD Has been complaining of more shortness of breath and cough this morning He did not get his nebulized bronchodilators since admission Physical Exam Vital Signs (Past 24 Hours): Last Vital Signs Temp 36.8 C 09/10/18 14:52 Pulse 90 09/10/18 15:53 Resp 20 09/10/18 15:53 BP 146/82 H 09/10/18 14:52 Pulse Ox 94 09/10/18 15:53 Physical Exam: Shortness of breath at rest with wheezing Constitutional: well nourished and + ill appearing Eyes: PERRL, conjunctivae normal, anicteric sclerae ENMT: external ear and nose normal, oropharynx normal Neck: trachea midline, no thyromegaly Respiratory: + respiratory distress, + labored breathing and + uses accessory muscles Auscultation: + diminished lung sounds and + wheezes (Moderate wheezing bilaterally) Cardiovascular: Rate/Rhythm: regular rate, regular rhythm and + tachycardic Heart Sounds: normal S1 and normal S2 Extremities: no edema Gastrointestinal (Abdomen): Inspection/Auscultation: abdomen normal to inspection and normal bowel sounds Percussion/Palpation: abdomen soft Neurologic: PERRL, EOMI, accommodation nl, no face palsy, no dysarthria Psychiatric: A+Ox3, euthymic affect Results & Data Laboratory Results Short CBC 09/09/18 Range/Units 16:59 WBC 10.24 (4.8-10.8) K/uL Hgb 13.9 L (14.0-18.0) g/dL Hct 42.7 (42-52) % Plt Count 144 (130-400) K/uL BMP 09/09/18 16:59 Sodium 138 Potassium 3.8 Chloride 102 Carbon Dioxide 33 H BUN 18 Creatinine 0.95 Glucose 113 H Calcium 9.3 Cardiac Enzymes 09/09/18 Range/Units 16:59 Troponin I < 0.015 (0-0.045) ng/ml Liver Function 09/09/18 Range/Units 16:59 Total Bilirubin 0.3 (0.2-1) mg/dl AST 18 (15-37) U/L ALT 27 (12-78) U/L Alkaline Phosphatase 86 (45-117) U/L Albumin 3.7 (3.4-5.0) gm/dl Urine 09/09/18 Range/Units 17:50 Urine Color Yellow Urine Appearance Turbid H (Clear) Urine pH 5.5 (4.5-7.5) Ur Specific [place] 1.017 (1.000-1.030) Urine Protein Negative (Negative) Urine Glucose (UA) Negative (Negative) Medications Administered Current Inpatient Medications Acetaminophen (Tylenol) 1,000 mg PO Q6H PRN PRN Reason: Pain Stop: 10/09/18 20:00 Last Admin: 09/09/18 20:35 Dose: 1,000 mg Documented by: Albuterol (Ventolin 0.083% 2.5mg/3ml) 2.5 mg NEB QID PRN PRN Reason: Shortness Of Breath Stop: 10/09/18 19:14 Last Admin: 09/10/18 15:53 Dose: 2.5 mg Documented by: Albuterol (Ventolin Hfa) 2 puffs INH Q6 [facility]AR[place] Stop: 10/10/18 16:14 Last Admin: 09/10/18 16:40 Dose: 2 puffs Documented by: Budesonide/Formoterol Fumarate (Symbicort 160mcg/4.5mcg) 2 puffs INH BID [place]AR[place] Stop: 10/09/18 20:59 Last Admin: 09/10/18 08:53 Dose: 2 puffs Documented by: Buspirone HCl (Buspar) 5 mg PO HS PEARL Stop: 10/09/18 20:59 Last Admin: 09/09/18 20:37 Dose: 5 mg Documented by: Cetirizine HCl (Zyrtec) 10 mg PO DAILY PRN PRN Reason: ALLERGIES Stop: 10/09/18 19:14 Diltiazem HCl (Tiazac) 120 mg PO DAILY [facility]AR[facility] Stop: 10/10/18 08:59 Last Admin: 09/10/18 08:51 Dose: 120 mg Documented by: Doxycycline Hyclate (Vibramycin) 100 mg PO BID PEARL Stop: 09/16/18 20:59 Last Admin: 09/10/18 08:51 Dose: 100 mg Documented by: Ergocalciferol (Vitamin D2) 50,000 units PO Edgar@0900 PEARL Stop: 10/14/18 08:59 Finasteride (Proscar) 5 mg PO DAILY PEAR[place] Stop: 10/10/18 08:59 Last Admin: 09/10/18 08:51 Dose: 5 mg Documented by: Guaifenesin (Organidin Nr) 400 mg PO BID [facility] Stop: 10/09/18 20:59 Last Admin: 09/10/18 08:52 Dose: 400 mg Documented by: Guaifenesin (Robitussin Sugar Free) 200 mg PO Q6H PRN PRN Reason: Cough Stop: 10/09/18 19:14 Heparin Sodium (Porcine) (Heparin Sodium (Porcine)) 5,000 units SQ Q8 PEARL Stop: 10/09/18 21:59 Last Admin: 09/10/18 14:21 Dose: 5,000 units Documented by: Hydrocodone Bit/Homatropine Methylb (Hycodan) 5 ml PO Q6H PRN PRN Reason: Cough Stop: 09/24/18 01:45 Last Admin: 09/10/18 15:38 Dose: 5 ml Documented by: Methylprednisolone 40 mg/ (Syringe) 0.64 mls @ 1.5 mls/min IV Q8H PEARL Stop: 10/10/18 01:59 Last Admin: 09/10/18 12:43 Dose: 1.5 mls/min Documented by: Pantoprazole Sodium (Protonix) 40 mg PO BID PEARL Stop: 10/09/18 20:59 Last Admin: 09/10/18 08:52 Dose: 40 mg Documented by: Sertraline HCl (Zoloft) 200 mg PO HS [facility] Stop: 10/09/18 20:59 Last Admin: 09/09/18 20:34 Dose: 200 mg Documented by: Tiotropium [place] (Spiriva) 1 puffs INH DAILY [facility] Stop: 10/10/18 08:59 Last Admin: 09/10/18 08:54 Dose: 1 puffs Documented by: Trazodone HCl (Desyrel) 150 mg PO HS [facility] Stop: 10/09/18 20:59 Last Admin: 09/09/18 20:36 Dose: 150 mg Documented by:
[2018-09-10] MEDS: TRAZODONE HCL 50 MG TAB PO SCH (21:27)
[2018-09-10] MEDS: SERTRALINE HCL 100 MG TABLET PO SCH (21:28)
[2018-09-11] MEDS: methylPREDNISolone 40 MG in SYRINGE 0 ML IV SCH ×3 (01:13→18:52)
[2018-09-11] MEDS: ALBUTEROL HFA 8 GM INHALER INH SCH ×4 (01:20→18:52)
[2018-09-11] MEDS: HYDROCODONE/HOMATROPINE SYRUP 5MG/1.5MG 5ML UDP PO PRN ×3 (02:27→16:11)
[2018-09-11] MEDS: HEPARIN SOD 5,000 UNIT/0.5 ML VIAL SQ SCH ×3 (06:13→21:19)
[2018-09-11] MEDS: ALBUTEROL 0.083% NEBU SOLN 3 ML VIAL NEB PRN ×3 (07:50→19:27)
[2018-09-11] MEDS: guaiFENesin 200 MG TAB PO SCH ×2 (08:12→21:19)
[2018-09-11] MEDS: DOXYCYCLINE HYCLATE 100 MG CAP PO SCH ×2 (08:13→21:20)
[2018-09-11] MEDS: dilTIAZem ER 120 MG CAPCR PO SCH (08:13)
[2018-09-11] MEDS: TIOTROPIUM BROMIDE 5 PUFF/90 MCG INH INH SCH (08:13)
[2018-09-11] MEDS: PANTOprazole 40 MG TAB PO SCH ×2 (08:13→21:19)
[2018-09-11] MEDS: BUDESONIDE/FORMOTEROL FUMARATE 160/4.5 60 PUFFS/INHALER INH SCH ×2 (08:15→21:20)
[2018-09-11] MEDS: FINASTERIDE 5 MG TAB PO SCH (08:15)
--- NOTE | 2018-09-11 12:13 | Hospitalist Progress Note ---
Date of Service September 11, 2018 Assessment & Plan (1) COPD exacerbation: Secondary to acute and chronic respiratory failure in setting of Acute Bronchitis with COPD Requiring more than usual amount of oxygen at home Uses 2 L via nasal cannula oxygen continuously at home Started on intravenous Solu-Medrol and nebulized bronchodilator Continue other medications for COPD Cannot tolerate prednisone but continues Solu-Medrol and Medrol Dosepak Not any better today We will continue current medications Hycodan cough syrup has been added Clinically a lot better today Advised to have more ambulation (2) Bronchitis: We will start doxycycline No pneumonia on chest x-ray Cough syrup is helping (3) HTN (hypertension): The patient seems to be controlled Continue with current medications (4) PTSD (post-traumatic stress disorder): No acute delirium and confusion Continue current medications Presence of any acute anxiety and/or depression DVT prophylaxis Subcu heparin CODE STATUS Full Subjective 09/10 The patient was seen and examined in medical floor He was admitted with exacerbation of COPD Has been complaining of more shortness of breath and cough this morning He did not get his nebulized bronchodilators since admission 09/11 He has been feeling a lot better this morning His breathing is better and the cough has improved Not yet ready to be discharged and he does not want to be transferred to [facility] in [place] Physical Exam Vital Signs (Past 24 Hours): Last Vital Signs Temp 36.6 C 09/11/18 07:55 Pulse 72 09/11/18 07:55 Resp 18 09/11/18 07:55 BP 132/75 09/11/18 07:55 Pulse Ox 96 09/11/18 07:55 Physical Exam: Moderate shortness of breath at rest Constitutional: well nourished and + ill appearing Eyes: PERRL, conjunctivae normal, anicteric sclerae ENMT: external ear and nose normal, oropharynx normal Neck: trachea midline, no thyromegaly Respiratory: + respiratory distress, + labored breathing and + uses accessory muscles Auscultation: + diminished lung sounds and + wheezes (Minimal wheezing) Cardiovascular: Rate/Rhythm: regular rate, regular rhythm and + tachycardic Heart Sounds: normal S1 and normal S2 Extremities: no edema Gastrointestinal (Abdomen): Inspection/Auscultation: abdomen normal to inspection and normal bowel sounds Percussion/Palpation: abdomen soft Neurologic: PERRL, EOMI, accommodation nl, no face palsy, no dysarthria Psychiatric: A+Ox3, euthymic affect Results & Data Medications Administered Current Inpatient Medications Acetaminophen (Tylenol) 1,000 mg PO Q6H PRN PRN Reason: Pain Stop: 10/09/18 20:00 Last Admin: 09/09/18 20:35 Dose: 1,000 mg Documented by: Albuterol (Ventolin 0.083% 2.5mg/3ml) 2.5 mg NEB QID PRN PRN Reason: Shortness Of Breath Stop: 10/09/18 19:14 Last Admin: 09/11/18 07:50 Dose: 2.5 mg Documented by: Albuterol (Ventolin Hfa) 2 puffs INH Q6 [facility] Stop: 10/10/18 16:14 Last Admin: 09/11/18 06:14 Dose: 2 puffs Documented by: Budesonide/Formoterol Fumarate (Symbicort 160mcg/4.5mcg) 2 puffs INH BID [facility] Stop: 10/09/18 20:59 Last Admin: 09/11/18 08:15 Dose: 2 puffs Documented by: Buspirone HCl (Buspar) 5 mg PO HS [facility] Stop: 10/09/18 20:59 Last Admin: 09/10/18 21:26 Dose: 5 mg Documented by: Cetirizine HCl (Zyrtec) 10 mg PO DAILY PRN PRN Reason: ALLERGIES Stop: 10/09/18 19:14 Diltiazem HCl (Tiazac) 120 mg PO DAILY [facility] Stop: 10/10/18 08:59 Last Admin: 09/11/18 08:13 Dose: 120 mg Documented by: Doxycycline Hyclate (Vibramycin) 100 mg PO BID [facility] Stop: 09/16/18 20:59 Last Admin: 09/11/18 08:13 Dose: 100 mg Documented by: Ergocalciferol (Vitamin D2) 50,000 units PO Edgar@0900 [facility] Stop: 10/14/18 08:59 Finasteride (Proscar) 5 mg PO DAILY [facility] Stop: 10/10/18 08:59 Last Admin: 09/11/18 08:15 Dose: 5 mg Documented by: Guaifenesin (Organidin Nr) 400 mg PO BID [facility] Stop: 10/09/18 20:59 Last Admin: 09/11/18 08:12 Dose: 400 mg Documented by: Guaifenesin (Robitussin Sugar Free) 200 mg PO Q6H PRN PRN Reason: Cough Stop: 10/09/18 19:14 Heparin Sodium (Porcine) (Heparin Sodium (Porcine)) 5,000 units SQ Q8 [facility] Stop: 10/09/18 21:59 Last Admin: 09/11/18 06:13 Dose: 5,000 units Documented by: Hydrocodone Bit/Homatropine Methylb (Hycodan) 5 ml PO Q6H PRN PRN Reason: Cough Stop: 09/24/18 01:45 Last Admin: 09/11/18 08:21 Dose: 5 ml Documented by: Methylprednisolone 40 mg/ (Syringe) 0.64 mls @ 1.5 mls/min IV Q8H [facility] Stop: 10/10/18 01:59 Last Admin: 09/11/18 10:10 Dose: 1.5 mls/min Documented by: Pantoprazole Sodium (Protonix) 40 mg PO BID [facility] Stop: 10/09/18 20:59 Last Admin: 09/11/18 08:13 Dose: 40 mg Documented by: Sertraline HCl (Zoloft) 200 mg PO HS [facility] Stop: 10/09/18 20:59 Last Admin: 09/10/18 21:28 Dose: 200 mg Documented by: Tiotropium [place] (Spiriva) 1 puffs INH DAILY [facility] Stop: 10/10/18 08:59 Last Admin: 09/11/18 08:13 Dose: 1 puffs Documented by: Trazodone HCl (Desyrel) 150 mg PO HS [facility] Stop: 10/09/18 20:59 Last Admin: 09/10/18 21:27 Dose: 150 mg Documented by:
[2018-09-11] MEDS: SERTRALINE HCL 100 MG TABLET PO SCH (21:18)
[2018-09-11] MEDS: TRAZODONE HCL 50 MG TAB PO SCH (21:18)
[2018-09-12] MEDS: ALBUTEROL HFA 8 GM INHALER INH SCH ×5 (00:17→23:28)
[2018-09-12] MEDS: HYDROCODONE/HOMATROPINE SYRUP 5MG/1.5MG 5ML UDP PO PRN ×3 (00:19→17:31)
[2018-09-12] MEDS: methylPREDNISolone 40 MG in SYRINGE 0 ML IV SCH ×3 (03:42→17:58)
[2018-09-12] MEDS: HEPARIN SOD 5,000 UNIT/0.5 ML VIAL SQ SCH ×3 (07:19→21:43)
[2018-09-12] MEDS: ALBUTEROL 0.083% NEBU SOLN 3 ML VIAL NEB PRN ×2 (07:33→18:59)
[2018-09-12] MEDS: BUDESONIDE/FORMOTEROL FUMARATE 160/4.5 60 PUFFS/INHALER INH SCH ×2 (08:24→21:45)
[2018-09-12] MEDS: PANTOprazole 40 MG TAB PO SCH ×2 (08:24→21:44)
[2018-09-12] MEDS: TIOTROPIUM BROMIDE 5 PUFF/90 MCG INH INH SCH (08:24)
[2018-09-12] MEDS: guaiFENesin 200 MG TAB PO SCH ×2 (08:25→21:43)
[2018-09-12] MEDS: FINASTERIDE 5 MG TAB PO SCH (08:25)
[2018-09-12] MEDS: DOXYCYCLINE HYCLATE 100 MG CAP PO SCH ×2 (08:25→21:43)
[2018-09-12] MEDS: dilTIAZem ER 120 MG CAPCR PO SCH (08:27)
--- NOTE | 2018-09-12 15:49 | Hospitalist Progress Note ---
Date of Service September 12, 2018 Assessment & Plan (1) COPD exacerbation: Secondary to acute and chronic respiratory failure in setting of Acute Bronchitis with COPD Requiring more than usual amount of oxygen at home Uses 2 L via nasal cannula oxygen continuously at home Started on intravenous Solu-Medrol and nebulized bronchodilator Continue other medications for COPD Cannot tolerate prednisone but continues Solu-Medrol and Medrol Dosepak Not any better today We will continue current medications Hycodan cough syrup has been added Clinically a lot better today and has been ambulating Likely be discharged tomorrow (2) Bronchitis: We will start doxycycline No pneumonia on chest x-ray Denies any more cough (3) HTN (hypertension): The patient seems to be controlled Continue with current medications Controlled (4) PTSD (post-traumatic stress disorder): No acute delirium and confusion Continue current medications Presence of any acute anxiety and/or depression DVT prophylaxis Subcu heparin CODE STATUS Full Subjective 09/10 The patient was seen and examined in medical floor He was admitted with exacerbation of COPD Has been complaining of more shortness of breath and cough this morning He did not get his nebulized bronchodilators since admission 09/11 He has been feeling a lot better this morning His breathing is better and the cough has improved Not yet ready to be discharged and he does not want to be transferred to [place] in [place] 09/12 The patient was seen and examined in medical floor He has been feeling a lot better since this morning He is back to his usual requirement of oxygen flow to maintain saturation He was advised to ambulate more before he goes on to Physical Exam Vital Signs (Past 24 Hours): Last Vital Signs Temp 36.7 C 09/12/18 15:02 Pulse 95 H 09/12/18 15:02 Resp 18 09/12/18 15:02 BP 161/84 H 09/12/18 15:02 Pulse Ox 90 09/12/18 15:02 Physical Exam: No apparent distress at rest Constitutional: well nourished and + ill appearing Eyes: PERRL, conjunctivae normal, anicteric sclerae ENMT: external ear and nose normal, oropharynx normal Neck: trachea midline, no thyromegaly Respiratory: + respiratory distress and + uses accessory muscles Auscultation: + diminished lung sounds and + wheezes (Minimal wheezing) Cardiovascular: Rate/Rhythm: regular rate, regular rhythm and + tachycardic Heart Sounds: normal S1 and normal S2 Extremities: no edema Gastrointestinal (Abdomen): Inspection/Auscultation: abdomen normal to inspection and normal bowel sounds Percussion/Palpation: abdomen soft Neurologic: PERRL, EOMI, accommodation nl, no face palsy, no dysarthria Psychiatric: A+Ox3, euthymic affect Results & Data Medications Administered Current Inpatient Medications Acetaminophen (Tylenol) 1,000 mg PO Q6H PRN PRN Reason: Pain Stop: 10/09/18 20:00 Last Admin: 09/09/18 20:35 Dose: 1,000 mg Documented by: Albuterol (Ventolin 0.083% 2.5mg/3ml) 2.5 mg NEB QID PRN PRN Reason: Shortness Of Breath Stop: 10/09/18 19:14 Last Admin: 09/12/18 07:33 Dose: 2.5 mg Documented by: Albuterol (Ventolin Hfa) 2 puffs INH Q6 [facility] Stop: 10/10/18 16:14 Last Admin: 09/12/18 14:24 Dose: 2 puffs Documented by: Budesonide/Formoterol Fumarate (Symbicort 160mcg/4.5mcg) 2 puffs INH BID [facility] Stop: 10/09/18 20:59 Last Admin: 09/12/18 08:24 Dose: 2 puffs Documented by: Buspirone HCl (Buspar) 5 mg PO HS [facility] Stop: 10/09/18 20:59 Last Admin: 09/11/18 21:19 Dose: 5 mg Documented by: Cetirizine HCl (Zyrtec) 10 mg PO DAILY PRN PRN Reason: ALLERGIES Stop: 10/09/18 19:14 Diltiazem HCl (Tiazac) 120 mg PO DAILY [facility] Stop: 10/10/18 08:59 Last Admin: 09/12/18 08:27 Dose: 120 mg Documented by: Doxycycline Hyclate (Vibramycin) 100 mg PO BID [facility] Stop: 09/16/18 20:59 Last Admin: 09/12/18 08:25 Dose: 100 mg Documented by: Ergocalciferol (Vitamin D2) 50,000 units PO Edgar@0900 [facility] Stop: 10/14/18 08:59 Finasteride (Proscar) 5 mg PO DAILY [facility] Stop: 10/10/18 08:59 Last Admin: 04/05/19 08:25 Dose: 5 mg Documented by: Orenaifenesin (Organidin Nr) 400 mg PO BID [facility] Stop: 10/09/18 20:59 Last Admin: 09/12/18 08:25 Dose: 400 mg Documented by: Guaifenesin (Robitussin Sugar Free) 200 mg PO Q6H PRN PRN Reason: Cough Stop: 10/09/18 19:14 Heparin Sodium (Porcine) (Heparin Sodium (Porcine)) 5,000 units SQ Q8 [facility] Stop: 10/09/18 21:59 Last Admin: 09/12/18 14:25 Dose: 5,000 units Documented by: Hydrocodone Bit/Homatropine Methylb (Hycodan) 5 ml PO Q6H PRN PRN Reason: Cough Stop: 09/24/18 01:45 Last Admin: 09/12/18 08:32 Dose: 5 ml Documented by: Methylprednisolone 40 mg/ (Syringe) 0.64 mls @ 1.5 mls/min IV Q8H [facility] Stop: 10/10/18 01:59 Last Admin: 09/12/18 10:48 Dose: 1.5 mls/min Documented by: Pantoprazole Sodium (Protonix) 40 mg PO BID [facility] Stop: 10/09/18 20:59 Last Admin: 09/12/18 08:24 Dose: 40 mg Documented by: Sertraline HCl (Zoloft) 200 mg PO HS [facility] Stop: 10/09/18 20:59 Last Admin: 09/11/18 21:18 Dose: 200 mg Documented by: Tiotropium [place] (Spiriva) 1 puffs INH DAILY [facility] Stop: 10/10/18 08:59 Last Admin: 09/12/18 08:24 Dose: 1 puffs Documented by: Trazodone HCl (Desyrel) 150 mg PO HS [facility] Stop: 10/09/18 20:59 Last Admin: 09/11/18 21:18 Dose: 150 mg Documented by:
[2018-09-12] MEDS: SERTRALINE HCL 100 MG TABLET PO SCH (21:42)
[2018-09-12] MEDS: TRAZODONE HCL 50 MG TAB PO SCH (21:43)
[2018-09-13] MEDS ORDERED: methylPREDNISolone 4 MG TAB PO SCH ×2
[2018-09-13] MEDS: methylPREDNISolone 40 MG in SYRINGE 0 ML IV SCH ×2 (02:11→10:19)
[2018-09-13] MEDS: ALBUTEROL HFA 8 GM INHALER INH SCH ×2 (05:33→13:48)
[2018-09-13] MEDS: HEPARIN SOD 5,000 UNIT/0.5 ML VIAL SQ SCH (05:33)
[2018-09-13] MEDS: TIOTROPIUM BROMIDE 5 PUFF/90 MCG INH INH SCH (08:11)
[2018-09-13] MEDS: BUDESONIDE/FORMOTEROL FUMARATE 160/4.5 60 PUFFS/INHALER INH SCH (08:11)
[2018-09-13 09:15] LABS: Hematocrit (blood only) 37.8 % (42-52); Hemoglobin 12.3 g/dL (14.0-18.0); Immature Granulocytes # (auto) 0.03 K/uL (0.00-0.02); Immature Granulocytes % (auto) 0.3 %; Lymphocytes # (auto) 0.58 K/uL (1.2-3.4); Lymphocytes % (auto) 6.5 %; Mean Corpuscular Hgb Conc 32.5 g/dL (32-36); Mean Corpuscular Volume 88.3 fL (80-100); Mean Platelet Volume 9.6 fL (7.4-10.4); Monocytes # (auto) 0.37 K/uL (0.11-0.59); Monocytes % (auto) 4.1 %; Neutrophils # (auto) 7.96 K/uL (1.4-6.5); Neutrophils % (auto) 89.1 %; Platelet Count 124 K/uL (130-400); RDW Coefficient of Variation 16.5 % (11.5-14.5); RDW Standard Deviation 53.5 fL (36.4-46.3); Red Blood Count 4.28 M/uL (4.7-6.1); White Blood Count 8.94 K/uL (4.8-10.8)
[2018-09-13 09:32] LABS: BUN Creatinine Ratio 22.5 (10-20); Calcium 9.7 mg/dl (8.5-10.1); Creatinine Clr Calc Pharmacy 73.7 ml/min; Est GFR (African American) 90.3; Est GFR (Non-African American) 77.9; Magnesium 2.5 mg/dl (1.8-2.4); Potassium 4.2 mmol/L (3.5-5.1)
[2018-09-13] MEDS: guaiFENesin 200 MG TAB PO SCH (10:17)
[2018-09-13] MEDS: FINASTERIDE 5 MG TAB PO SCH (10:18)
[2018-09-13] MEDS: PANTOprazole 40 MG TAB PO SCH (10:18)
[2018-09-13] MEDS: dilTIAZem ER 120 MG CAPCR PO SCH (10:18)
[2018-09-13] MEDS: DOXYCYCLINE HYCLATE 100 MG CAP PO SCH (10:19)
--- NOTE | 2018-09-13 10:43 | Hospitalist Progress Note ---
Date of Service September 13, 2018 Assessment & Plan (1) COPD exacerbation: Secondary to acute and chronic respiratory failure in setting of Acute Bronchitis with COPD Requiring more than usual amount of oxygen at home Uses 2 L via nasal cannula oxygen continuously at home Started on intravenous Solu-Medrol and nebulized bronchodilator Continue other medications for COPD Cannot tolerate prednisone but continues Solu-Medrol and Medrol Dosepak Not any better today We will continue current medications Hycodan cough syrup has been added Denies any more cough and/or shortness of breath at rest No problem with ambulation and back to his baseline use of oxygen He will be discharged this afternoon (2) Bronchitis: We will start doxycycline No pneumonia on chest x-ray Denies any more cough We will continue antibiotic as an outpatient (3) HTN (hypertension): The patient seems to be controlled Continue with current medications Controlled (4) PTSD (post-traumatic stress disorder): No acute delirium and confusion Continue current medications Presence of any acute anxiety and/or depression DVT prophylaxis Subcu heparin CODE STATUS Full Subjective 09/10 The patient was seen and examined in medical floor He was admitted with exacerbation of COPD Has been complaining of more shortness of breath and cough this morning He did not get his nebulized bronchodilators since admission 09/11 He has been feeling a lot better this morning His breathing is better and the cough has improved Not yet ready to be discharged and he does not want to be transferred to [place] in [place] 09/12 The patient was seen and examined in medical floor He has been feeling a lot better since this morning He is back to his usual requirement of oxygen flow to maintain saturation He was advised to ambulate more before he goes on to 09/13 He has been feeling a lot better this morning and feels that he is back to his baseline Has been ambulating without any significant symptoms He will be discharged this afternoon Physical Exam Vital Signs (Past 24 Hours): Last Vital Signs Temp 36.3 C L 09/13/18 07:16 Pulse 72 09/13/18 07:16 Resp 18 09/13/18 07:16 BP 156/92 H 09/13/18 07:16 Pulse Ox 94 09/13/18 07:16 Physical Exam: No apparent distress at rest and no wheezing Constitutional: well nourished and + ill appearing Eyes: PERRL, conjunctivae normal, anicteric sclerae ENMT: external ear and nose normal, oropharynx normal Neck: trachea midline, no thyromegaly Respiratory: normal respiratory effort and + respiratory distress (Activity) Auscultation: + diminished lung sounds and + wheezes (Almost gone) Cardiovascular: Rate/Rhythm: regular rate, regular rhythm and + tachycardic Heart Sounds: normal S1 and normal S2 Extremities: no edema Gastrointestinal (Abdomen): Inspection/Auscultation: abdomen normal to inspection and normal bowel sounds Percussion/Palpation: abdomen soft Neurologic: PERRL, EOMI, accommodation nl, no face palsy, no dysarthria Psychiatric: A+Ox3, euthymic affect Results & Data Laboratory Results Short CBC 09/13/18 Range/Units 08:29 WBC 8.94 (4.8-10.8) K/uL Hgb 12.3 L (14.0-18.0) g/dL Hct 37.8 L (42-52) % Plt Count 124 L (130-400) K/uL BMP 09/13/18 08:29 Sodium 136 Potassium 4.2 Chloride 96 L Carbon Dioxide 33 H BUN 22 H Creatinine 0.99 Glucose 155 H Calcium 9.7 Medications Administered Current Inpatient Medications Acetaminophen (Tylenol) 1,000 mg PO Q6H PRN PRN Reason: Pain Stop: 10/09/18 20:00 Last Admin: 09/09/18 20:35 Dose: 1,000 mg Documented by: Albuterol (Ventolin 0.083% 2.5mg/3ml) 2.5 mg NEB QID PRN PRN Reason: Shortness Of Breath Stop: 10/09/18 19:14 Last Admin: 09/12/18 18:59 Dose: 2.5 mg Documented by: Albuterol (Ventolin Hfa) 2 puffs INH Q6 [facility] Stop: 10/10/18 16:14 Last Admin: 09/13/18 05:33 Dose: 2 puffs Documented by: Budesonide/Formoterol Fumarate (Symbicort 160mcg/4.5mcg) 2 puffs INH BID [facility] Stop: 10/09/18 20:59 Last Admin: 09/13/18 08:11 Dose: 2 puffs Documented by: Buspirone HCl (Buspar) 5 mg PO HS [facility] Stop: 10/09/18 20:59 Last Admin: 09/12/18 22:11 Dose: 5 mg Documented by: Cetirizine HCl (Zyrtec) 10 mg PO DAILY PRN PRN Reason: ALLERGIES Stop: 10/09/18 19:14 Diltiazem HCl (Tiazac) 120 mg PO DAILY [facility] Stop: 10/10/18 08:59 Last Admin: 09/13/18 10:18 Dose: 120 mg Documented by: Doxycycline Hyclate (Vibramycin) 100 mg PO BID [facility] Stop: 09/16/18 20:59 Last Admin: 09/13/18 10:19 Dose: 100 mg Documented by: Ergocalciferol (Vitamin D2) 50,000 units PO Edgar@0900 [facility] Stop: 10/14/18 08:59 Finasteride (Proscar) 5 mg PO DAILY [facility] Stop: 10/10/18 08:59 Last Admin: 09/13/18 10:18 Dose: 5 mg Documented by: Guaifenesin (Organidin Nr) 400 mg PO BID [facility] Stop: 10/09/18 20:59 Last Admin: 09/13/18 10:17 Dose: 400 mg Documented by: Guaifenesin (Robitussin Sugar Free) 200 mg PO Q6H PRN PRN Reason: Cough Stop: 10/09/18 19:14 Heparin Sodium (Porcine) (Heparin Sodium (Porcine)) 5,000 units SQ Q8 [facility] Stop: 10/09/18 21:59 Last Admin: 09/13/18 05:33 Dose: 5,000 units Documented by: Hydrocodone Bit/Homatropine Methylb (Hycodan) 5 ml PO Q6H PRN PRN Reason: Cough Stop: 09/24/18 01:45 Last Admin: 09/12/18 17:31 Dose: 5 ml Documented by: Methylprednisolone 40 mg/ (Syringe) 0.64 mls @ 1.5 mls/min IV Q8H [facility] Stop: 10/10/18 01:59 Last Admin: 09/13/18 10:19 Dose: 1.5 mls/min Documented by: Pantoprazole Sodium (Protonix) 40 mg PO BID [facility] Stop: 10/09/18 20:59 Last Admin: 09/13/18 10:18 Dose: 40 mg Documented by: Sertraline HCl (Zoloft) 200 mg PO HS [facility] Stop: 10/09/18 20:59 Last Admin: 09/12/18 21:42 Dose: 200 mg Documented by: Tiotropium [place] (Spiriva) 1 puffs INH DAILY [facility] Stop: 10/10/18 08:59 Last Admin: 09/13/18 08:11 Dose: 1 puffs Documented by: Trazodone HCl (Desyrel) 150 mg PO HS [facility] Stop: 10/09/18 20:59 Last Admin: 09/12/18 21:43 Dose: 150 mg Documented by:
[2018-09-13] MEDS ORDERED: [UNRECOGNIZED DRUG - OTHER] PO SCH (11:00)
[2018-09-13] MEDS ORDERED: Nursing to Pharmacy Communication ONE (14:03)
--- NOTE | 2018-09-14 07:30 | Discharge Summary ---
Date of Service September 14, 2018 Admission HPI Per Admitting Provider He is a 68-year-old male with significant past medical history of COPD on home oxygen, chronic respiratory failure, hypertension, posttraumatic stress disorder, GERD, and history of kidney stone and osteoarthritis has been complaining of increasing shortness of breath with cough for the last few days. He has been complaining of greenish yellow phlegm with the cough and requiring more than usual flow of oxygen to maintain saturation. He denies any fever and/or chills and he is not improved for the last few days. He denies any chest pain and/or palpitation, no abdominal pain and/or nausea and/or vomiting. He was noted to have tachypnea and tachycardic in the emergency room with wheezing and decreased breathing sound on examination. Chest x-ray did not show pneumonia. He was admitted to medical unit for continuation of care. Admission Exam Per Admitting Provider Vital Signs (Past 24 Hours): Last Vital Signs Temp 36.7 C 09/09/18 16:32 Pulse 78 09/09/18 17:03 Resp 19 09/09/18 17:03 BP 129/77 09/09/18 16:32 Pulse Ox 98 09/09/18 17:03 Physical Exam: Minimal distress at rest with shortness of breath Constitutional: well nourished and + ill appearing Eyes: PERRL, conjunctivae normal, anicteric sclerae ENMT: external ear and nose normal, oropharynx normal Neck: trachea midline, no thyromegaly Respiratory: + respiratory distress, + labored breathing and + uses accessory muscles Auscultation: + diminished lung sounds and + wheezes (Moderate wheezing bilaterally) Cardiovascular: Rate/Rhythm: regular rate, regular rhythm and + tachycardic Heart Sounds: normal S1 and normal S2 Extremities: no edema Gastrointestinal (Abdomen): Inspection/Auscultation: abdomen normal to inspection and normal bowel sounds Percussion/Palpation: abdomen soft Neurologic: PERRL, EOMI, accommodation nl, no face palsy, no dysarthria Psychiatric: A+Ox3, euthymic affect Principal Diagnosis COPD exacerbation, acute bronchitis Discharge Exam Constitutional well nourished and + ill appearing Eyes PERRL, conjunctivae normal, anicteric sclerae ENMT external ear and nose normal, oropharynx normal Neck trachea midline, no thyromegaly Respiratory normal respiratory effort and + respiratory distress (Activity) Auscultation: + diminished lung sounds and + wheezes (Almost gone) Cardiovascular Rate/Rhythm: regular rate, regular rhythm and + tachycardic Heart Sounds: normal S1 and normal S2 Extremities: no edema Gastrointestinal (Abdomen) Inspection/Auscultation: abdomen normal to inspection and normal bowel sounds Percussion/Palpation: abdomen soft Neurologic PERRL, EOMI, accommodation nl, no face palsy, no dysarthria Psychiatric A+Ox3, euthymic affect Discharge Data Allergies Allergy/AdvReac Type Severity Reaction Status Date / Time bee venom protein (honey bee) Allergy Severe ANAPHYLAXIS Verified 08/22/18 17:55 pneumococcal vaccine Allergy Severe SWELLING Verified 08/22/18 17:55 [id number]-[id number]-Eev Reductase Allergy Severe CPK'S GO Verified 08/22/18 17:55 Inhibitor THROUGH ROOF amoxicillin Allergy Intermediate FACIAL Verified 08/22/18 17:55 SWELLING (EYES SWELLED SHUT) clavulanic acid Allergy Intermediate FACIAL Verified 08/22/18 17:55 SWELLING (EYES SWELLED SHUT) prednisone AdvReac Severe confusion Verified 08/22/18 17:55 and agitation Consultations 09/09/18 17:46 ED Decision to Admit Stat Hospital Course (1) COPD exacerbation: Secondary to acute and chronic respiratory failure in setting of Acute Bronchitis with COPD Requiring more than usual amount of oxygen at home Uses 2 L via nasal cannula oxygen continuously at home Started on intravenous Solu-Medrol and nebulized bronchodilator Continue other medications for COPD Cannot tolerate prednisone but continues Solu-Medrol and Medrol Dosepak Not any better today We will continue current medications Hycodan cough syrup has been added Denies any more cough and/or shortness of breath at rest No problem with ambulation and back to his baseline use of oxygen He will be discharged this afternoon (2) Bronchitis: We will start doxycycline No pneumonia on chest x-ray Denies any more cough We will continue antibiotic as an outpatient (3) HTN (hypertension): The patient seems to be controlled Continue with current medications Controlled (4) PTSD (post-traumatic stress disorder): No acute delirium and confusion Continue current medications Presence of any acute anxiety and/or depression DVT prophylaxis Subcu heparin CODE STATUS Full Total Time Total Time Spent Total Time Spent (In Minutes): 35 minutes Total Time Includes: Examination of the Patient, Discharge Planning and Medication Reconciliation Discharge Plan Discharge Items Patient Disposition: Home - Self-Care Reason For Visit: COPD EXACERBATION Discharge Diagnosis: COPD exacerbation, acute bronchitis Condition: Good Discharge Goals: Decrease discomfort, Improve function and Increase independence Activity: Resume your previous activity Non-emergency contact: Primary Care Provider Call non-emergency contact if: you have any medication questions and your symptoms worsen Follow-up/Referrals: PCP,NO [Primary Care Provider] - (Please keep appointment with your primary care physician on Saturday) Diet: Heart Healthy Addtl Provider Instructions: Continue oxygen as prescribed Prescriptions: New methylprednisolone [Medrol ([place])] 4 mg tablets,dose pack 4 mg PO UD Qty: 21 RF: 0 Continued diltiazem HCl 120 mg Capsule,Extended Release 24 Hr 120 mg PO DAILY RF: 0 budesonide-formoterol 160-4.5 mcg/actuation Hfa Aerosol Inhaler 2 puff INHALATION Q12H RF: 0 albuterol sulfate 2.5 mg /3 mL (0.083 %) Solution For Nebulization 2.5 mg continuous nebulization QID PRN (Reason: Shortness Of Breath) RF: 0 albuterol sulfate 90 mcg/actuation Hfa Aerosol Inhaler 2 puff INHALATION Q6H PRN (Reason: shortness of breath) RF: 0 finasteride 5 mg Tablet 5 mg PO DAILY RF: 0 buspirone 5 mg Tablet 5 mg PO HS RF: 0 cetirizine 10 mg Tablet 10 mg PO DAILY PRN (Reason: Allergy Symptoms) RF: 0 sertraline 100 mg Tablet 200 mg PO HS RF: 0 trazodone 150 mg Tablet 150 mg PO HS RF: 0 omeprazole 20 mg Capsule,Delayed Release(Dr/Ec) 20 mg PO BID RF: 0 Spiriva with HandiHaler 18 mcg Capsule, W/Inhalation Device 1 cap INHALATION DAILY RF: 0 guaifenesin 200 mg Tablet 400 mg PO BID RF: 0 epinephrine [EpiPen] 0.3 mg/0.3 mL Auto-Injector 0.3 mg IM Q3H PRN (Reason: Allergic Reaction) RF: 0 guaifenesin 200 mg/5 mL Liquid 10 ml PO Q6H PRN (Reason: Cough) RF: 0 Symbicort 160-4.5 mcg/actuation Hfa Aerosol Inhaler 2 puff INHALATION BID RF: 0 methylprednisolone [Medrol ([place])] 4 mg tablets,dose pack 4 mg PO DIRECTED Qty: 21 RF: 0 cholecalciferol (vitamin D3) 50,000 unit Tablet 50,000 units PO .WEEKLY ON SATURDAY RF: 0 Stand-Alone Forms: [facility] Discharge Orders: Discharge Order (Routine); Ordered 09/13/18 Ordered By: Emeli Sandoval Admission Data Admit Date/Time: 09/09/18 18:30 Attending Provider: Emeli Sandoval Admit Provider: Emeli Sandoval Primary Care Provider: PCP,NO Other Providers: Emeli Sandoval ; Crow Franklin Service: Medical Other Interventions: Discharge Summary Assessment (RN) Last Done: 09/13/18 11:32 DC Date/Time DO NOT enter until pt leaves facility: 09/13/18 14:45
[2018-09-14] MEDS ORDERED: ERGOCALCIFEROL 50,000 UNITS CAP PO SCH (09:00)
== END 2018-09-13 14:45 | disposition home or self-care (01) | DRG 190 ==
LOC: ED 16:26 → 4W 18:30 → SUATTDRO 18:30 → 4W 18:47

== ENCOUNTER 2019-06-25 14:40 | Inpatient (IN) ==
[2019-06-25] MEDS ORDERED: ALBUT/IPRATROP 3MG/0.5MG NEB 3 ML VIAL NEB STA ×2 (15:01→17:36)
[2019-06-25] MEDS ORDERED: methylPREDNISolone 125 MG/2 ML VIAL IV STA (15:01)
[2019-06-25] MEDS ORDERED: MoRPHine SULFATE 4 MG/ML 1 ML CARP\\VIAL IV STA ×2 (15:02→17:36)
--- NOTE | 2019-06-25 15:21 | XRay Report ---
XR chest 1V portable CLINICAL HISTORY: Chest Pain dyspnea COMPARISON STUDY: 09/09/2018 FINDINGS: Chronic interstitial change of both hemithorax. Stable emphysematous change. Stable bleb fo rmation. No evidence for superimposed infiltrate. Diaphragms are smooth. IMPRESSION: Chronic and emphysematous change. No acute process. ACT 112: Negative or not required by law. The above report was generated using voice recognition software. It may contain grammatical, syntax or spelling errors. Electronically signed by: Tomer Villarreal M.D. 06/25/2019 3:19 PM
[2019-06-25 15:36] LABS: Basophils # (auto) 0.02 K/uL (0-0.2); Basophils % (auto) 0.3 %; Eosinophils # (auto) 0.02 K/uL (0-0.5); Eosinophils % (auto) 0.3 %; Hemoglobin 13.3 g/dL (14.0-18.0); Immature Granulocytes # (auto) 0.02 K/uL (0.00-0.02); Immature Granulocytes % (auto) 0.3 %; Lymphocytes # (auto) 0.99 K/uL (1.2-3.4); Lymphocytes % (auto) 14.6 %; Mean Corpuscular Hemoglobin 29.3 pg (25-34); Mean Corpuscular Hgb Conc 32.4 g/dL (32-36); Mean Corpuscular Volume 90.3 fL (80-100); Mean Platelet Volume 9.3 fL (7.4-10.4); Monocytes # (auto) 0.82 K/uL (0.11-0.59); Monocytes % (auto) 12.1 %; Neutrophils % (auto) 72.4 %; Platelet Count 122 K/uL (130-400); RDW Coefficient of Variation 15.8 % (11.5-14.5); RDW Standard Deviation 52.2 fL (36.4-46.3); Red Blood Count 4.54 M/uL (4.7-6.1); White Blood Count 6.77 K/uL (4.8-10.8)
[2019-06-25 15:52] LABS: Alanine Aminotransferase 21 U/L (12-78); Albumin Level 3.8 gm/dl (3.4-5.0); Aspartate Aminotransferase 23 U/L (15-37); BUN Creatinine Ratio 9.5 (10-20); Blood Urea Nitrogen 11 mg/dl (7-18); Calcium 9.3 mg/dl (8.5-10.1); Carbon Dioxide 33 mmol/L (21-32); Chloride 99 mmol/L (98-107); Creatinine Clr Calc Pharmacy 65.9 ml/min; Est GFR (African American) 71.1; Est GFR (Non-African American) 61.3; Glucose 111 mg/dl (70-99); Lipase 85 U/L (73-393); Potassium 4.1 mmol/L (3.5-5.1); Sodium 135 mmol/L (136-145)
[2019-06-25 15:57] LABS: Alkaline Phosphatase 82 U/L (45-117); Bilirubin,Total 0.6 mg/dl (0.2-1); Globulin 3.9 gm/dl (2.5-4.0); Total Protein 7.7 gm/dl (6.4-8.2); Troponin I < 0.015 ng/ml (0-0.045)
[2019-06-25] MEDS ORDERED: OPTIRAY 320 125ml IV PRN (16:23)
--- NOTE | 2019-06-25 16:37 | CT Scan Report ---
CT angio chest PE protocol CT DOSE: 400.59 mGy.cm HISTORY: 69 years-old Male with PE, right chest pain. Acute right-sided chest pain or shortness of breath and emphysema TECHNIQUE: Multiple CTA images of the chest were obtained after the intravenous administration of 97 ml Optiray 320. Coronal and sagittal MIPS were obtained from the axial data set and were submitted f or review. All measurements were obtained according to NASCET criteria. A dose lowering technique wa s utilized adhering to the principles of ALARA. COMPARISON: Chest radiograph of same day, CTA chest 05/22/2018 FINDINGS: CTA: Heart is upper limits of normal in size. No pericardial effusion. Reflux of contrast into the IVC. Mi ld coronary arterial calcifications. No thoracic aortic aneurysm or dissection. Moderate mixed plaque of the thoracic aorta with patency of the imaged great vessels. The main pulmonary artery is dilated measuring up to 3.6 cm. Pulmonary arterial tree is opacified to level of the proximal subsegmental b ranches and demonstrates no appreciable filling defects suggest pulmonary thromboembolic disease. Mil d respiratory motion artifact limits evaluation of the lung bases. CT CHEST: Unremarkable thyroid. Enlarged subcarinal lymph nodes measure up to 2.6 x 1.2 cm. Enlarged hilar lymp h nodes measure up to 1.5 cm on the right. Calcified hilar lymph nodes are also present. Findings thalia ear similar from comparison. No pneumothorax or pleural effusion. Severe emphysema with chronic fibro tic changes. Moderate bronchial wall thickening. Scattered calcified granulomata. Mild dependent biba silar groundglass densities suggest atelectasis. 4 mm solid nodule of the left upper lobe, image 167 series 4 is unchanged from comparison. Subpleural 4 mm solid nodule of the superior segment right low er lobe, image 180 series 4 appears new from comparison. Unchanged 4 mm solid nodule of the right low er lobe on image 158 series 4. Central airways appear patent. Calcified granulomata of the spleen. No acute process of the imaged upper abdomen. Soft tissues are w ithin normal limits. Degenerative changes of the shoulders and spine. IMPRESSION: 1. No evidence of pulmonary thromboembolic disease. 2. Advanced emphysema with chronic fibrotic changes. Moderate bronchial wall thickening suggests asso ciated bronchitis. 3. No pleural effusion or airspace consolidation typical for pneumonia. 4. Prior granulomatous disease. 5. There are a few scattered 4 mm solid nodules including a new subpleural nodule of the superior seg ment right lower lobe as above. 6. Probable pulmonary arterial hypertension. ACT 112: Negative or not required by law. Please refer to below summary of Fleischner criteria recommendations for follow-up of incidental CT n odules (Medardo Martinez, Guidelines for management of small pulmonary nodules detected on CT scans: A sta tement from the Fleischner Society, Radiology 237: [phone].) SOLID NODULES Multiple nodules size: <6 mm * Low risk patients: no routine follow-up * high risk patients: optional CT at 12 months Note: newly detected indeterminate nodule in persons 35 years of age or older. * Low risk patients: minimal or absent history of smoking and/or other known risk factors * high risk patients: history of smoking or of other known risk factors (e.g. first degree relative with lung cancer, or exposure to asbestos, radon, uranium) * if a nodule up to 8 mm is partly solid or is ground glass further follow-up is required after 24 m onths to exclude possible slow growing adenocarcinoma (MACHO) The above report was generated using voice recognition software. It may contain grammatical, syntax o r spelling errors. Electronically signed by: Nicholas Cr M.D. 06/25/2019 4:36 PM
--- NOTE | 2019-06-25 17:35 | Electrocardiogram Report ---
Test Reason : Blood Pressure : / mmHG Vent. Rate : 096 BPM Atrial Rate : 096 BPM P-R Int : 144 ms QRS Dur : 070 ms QT Int : 336 ms P-R-T Axes : 070 010 081 degrees QTc Int : 424 ms Normal sinus rhythm Normal ECG When compared with ECG of 09-SEP-2018 17:03, QRS axis Shifted right Nonspecific T wave abnormality no longer present Confirmed by Cristiano Allen ([id number]) on 06/25/2019 5:35:34 PM Referred By: Confirmed By:Cristiano Allen
[2019-06-25] MEDS ORDERED: DOXYCYCLINE HYCLATE 100 MG in DEXTROSE 5% 100 ML IV STA (17:36)
[2019-06-25] MEDS ORDERED: ALUMINUM/MAGNESIUM SUSP 30 ML UDC PO PRN (18:28)
[2019-06-25] MEDS ORDERED: ONDANSETRON INJ 2 MG/ML 2 ML VIAL IV PRN (18:28)
--- NOTE | 2019-06-25 18:45 | History & Physical Report ---
Date of Service June 25, 2019 Assessment & Plan (1) COPD exacerbation: Increasing shortness of breath for the last 2 days Likely secondary to viral infection--negative for flu Recent exposure to grandson who has RSV Has been started on intravenous Solu-Medrol and nebulized bronchodilator Doxycycline will be continued for about 8 more days to complete the course of 10 days in total He has been on a prophylactic antibiotic 3 times a week . The antibiotic itself and the doses were not available during my examination. Clinically better since admission Present on Admission?: Yes (2) Respiratory failure with hypoxia: Has chronic respiratory failure on O2 at 2 L/min Requiring 4 L/min to maintain saturation Expected to improve (3) Bronchitis: Has cough with greenish-yellow phlegm No pneumonia and/or fluid overload in chest x-ray No fever and/or chills and no increase in white count He has been on oral doxycycline foot for the last 2 days We will continue doxycycline for now Present on Admission?: Yes (4) HTN (hypertension): Continue Cardizem (5) PTSD (post-traumatic stress disorder): Continue antidepressant No acute issue DVT prophylaxis Subcu heparin CODE STATUS Full History of Present Illness Chief Complaint: Increasing shortness of breath for the last day or 2 Primary Care Provider: NO PCP He is a 69-year-old male with significant past medical history of COPD on home oxygen, chronic respiratory failure, hypertension, posttraumatic stress disorder and GERD has been complaining of increasing shortness of breath for the last day or 2. Apparently he was exposed to his grandson recently who has respiratory symptoms. He has been complaining more shortness of breath on minimal exertion and that is not been improved with increasing dose of oxygen to 4 L/min. He has cough with associated pain mostly in the right side of the chest with greenish and sometimes yellowish phlegm. Denies any fever and/or chills. Denies any nausea and/or vomiting. No edema and no increase in weight. He was noted to be hypoxic in the emergency room and apparent investigation including CT of the chest did not show any pulmonary embolism and/or infiltration. He received intravenous Solu-Medrol and bronchodilators and the condition improved to some extent. From that point he was admitted to telemetry unit for continuation of care. Allergies Allergy/AdvReac Type Severity Reaction Status Date / Time bee venom protein (honey bee) Allergy Severe ANAPHYLAXIS Verified 12/03/18 13:02 pneumococcal vaccine Allergy Severe SWELLING Verified 12/03/18 13:02 Jkpouat-Wcz-Jcw Reductase Allergy Severe CPK'S GO Verified 12/03/18 13:02 Inhibitor THROUGH ROOF amoxicillin Allergy Intermediate FACIAL Verified 12/03/18 13:02 SWELLING (EYES SWELLED SHUT) clavulanic acid Allergy Intermediate FACIAL Verified 12/03/18 13:02 SWELLING (EYES SWELLED SHUT) prednisone AdvReac Severe confusion Verified 12/03/18 13:02 and agitation Home Medications Home Medications Medication Instructions Recorded Confirmed Type Spiriva with HandiHaler 1 cap INHALATION DAILY 04/08/18 06/25/19 History buspirone 5 mg PO HS 04/08/18 06/25/19 History cetirizine 10 mg PO DAILY PRN 04/08/18 06/25/19 History omeprazole 20 mg PO BID 04/08/18 06/25/19 History sertraline 200 mg PO HS 04/08/18 06/25/19 History trazodone 150 mg PO HS 04/08/18 06/25/19 History diltiazem HCl 120 mg PO DAILY 05/22/18 06/25/19 History albuterol sulfate 2 puff INHALATION Q6H PRN 07/04/18 06/25/19 History albuterol sulfate 2.5 mg INHALATION QID PRN 07/04/18 06/25/19 History finasteride 5 mg PO DAILY 07/04/18 06/25/19 History Symbicort 2 puff INHALATION BID 08/22/18 06/25/19 History epinephrine [EpiPen] 0.3 mg IM DIRECTED PRN 08/22/18 06/25/19 History guaifenesin 400 mg PO BID 08/22/18 06/25/19 History cholecalciferol (vitamin D3) 50,000 units PO WK 09/09/18 06/25/19 History Unknown Maintenance Antibiotic 1 dose PO 3XWK 06/25/19 History doxycycline hyclate 0 mg PO BID 06/25/19 06/25/19 History Past Med/Surg History Social History Preferred Language: [place]ian Communication Ability: Effective Rn Disease Management Required: No Beliefs That Will Affect Care: None marital status: Current Living Situation: Spouse Current Living Situation Comment: lives with spouse 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 Right-sided chest pain Physical Exam Physical Exam: Lying in bed with moderate discomfort due to shortness of breath Constitutional: well developed, well nourished, + acute distress (Minimal shortness of breath at rest) and + ill appearing Eyes: PERRL, conjunctivae normal, anicteric sclerae ENMT: external ear and nose normal, oropharynx normal Neck: trachea midline, no thyromegaly Respiratory: + respiratory distress (Minimal at rest) Auscultation: + diminished lung sounds and + wheezes (Minimal wheezing bilaterally); no crackles Cardiovascular: Rate/Rhythm: regular rate and regular rhythm Heart Sounds: no murmur Gastrointestinal (Abdomen): Inspection/Auscultation: abdomen normal to inspection and normal bowel sounds Musculoskeletal: No acute arthritis in any joints Neurologic: moves all extremities and + focal motor deficit Alert, awake and oriented x3. Lymphatic: no cervical or axillary lymphadenopathy Results & Data Vital Signs (Past 12 Hours) Vital Signs Temp Pulse Pulse Resp BP Pulse Ox 06/25/19 18:00 77 76 23 115/65 90 06/25/19 17:00 76 21 124/66 91 06/25/19 16:25 82 16 119/64 86 L 06/25/19 16:01 77 21 94 06/25/19 16:00 78 20 128/57 L 94 06/25/19 15:50 76 21 132/50 L 94 06/25/19 15:32 79 20 96 06/25/19 15:31 75 21 96 06/25/19 15:30 76 20 125/67 96 06/25/19 15:05 97 06/25/19 15:00 78 19 132/73 96 06/25/19 14:46 37.1 C 89 20 128/74 90 Laboratory Results Short CBC 06/25/19 Range/Units 15:28 WBC 6.77 (4.8-10.8) K/uL Hgb 13.3 L (14.0-18.0) g/dL Hct 41.0 L (42-52) % Plt Count 122 L (130-400) K/uL BMP 06/25/19 15:28 Sodium 135 L Potassium 4.1 Chloride 99 Carbon Dioxide 33 H BUN 11 Creatinine 1.20 Glucose 111 H Calcium 9.3 Cardiac Enzymes 06/25/19 Range/Units 15:28 Troponin I < 0.015 (0-0.045) ng/ml Liver Function 06/25/19 Range/Units 15:28 Total Bilirubin 0.6 (0.2-1) mg/dl AST 23 (15-37) U/L ALT 21 (12-78) U/L Alkaline Phosphatase 82 (45-117) U/L Albumin 3.8 (3.4-5.0) gm/dl Medications Administered Current Inpatient Medications Acetaminophen (Tylenol) 650 mg PO Q4H PRN PRN Reason: Pain or Fever Stop: 07/25/19 18:27 Al Hydrox/Mg Hydrox/Simethicone (Maalox) 15 ml PO Q4H PRN PRN Reason: Dyspepsia Stop: 07/25/19 18:27 Heparin Sodium (Porcine) (Heparin Sodium (Porcine)) 5,000 units SQ Q12 PEARL Stop: 07/25/19 20:59 Doxycycline Hyclate 100 mg/ (Dextrose) 110 mls @ 50 mls/hr IV NOW STA Stop: 06/25/19 19:47 Last Admin: 06/25/19 18:16 Dose: 50 mls/hr Documented by: Ioversol (Optiray 320 125ml) 97 ml IV ONCE PRN PRN Reason: Interaction Checking Stop: 06/29/19 16:22 Last Admin: 06/25/19 16:24 Dose: 97 ml Documented by: Methylprednisolone (Solumedrol) 40 mg IV Q8H PEARL Stop: 07/25/19 18:29 Ondansetron HCl (Zofran) 4 mg IV Q6H PRN PRN Reason: Nausea Stop: 07/25/19 18:27 Code Status & VTE Plan VTE Prophylaxis Plan VTE Prophylaxis will be ordered: Yes (1) Respiratory failure with hypoxia Chronicity: acute on chronic Qualified Code(s): J96.21 - Acute and chronic respiratory failure with hypoxia
[2019-06-25 19:45] LABS: Influenza A virus by PCR Neg for Influ A (Neg); Influenza B virus by PCR Neg for Influ B (Neg)
[2019-06-25] MEDS ORDERED: CETIRIZINE HCL 10 MG TABLET PO PRN (21:16)
[2019-06-25] MEDS ORDERED: ALBUTEROL HFA 8 GM INHALER INH PRN (21:16)
[2019-06-25] MEDS: ACETAMINOPHEN 325 MG TAB PO PRN (21:22)
[2019-06-25] MEDS: SERTRALINE HCL 100 MG TABLET PO SCH (23:44)
[2019-06-25] MEDS: PANTOprazole 40 MG TAB PO SCH (23:45)
[2019-06-25] MEDS: DOXYCYCLINE HYCLATE 100 MG CAP PO SCH (23:45)
[2019-06-25] MEDS: guaiFENesin 200 MG TAB PO SCH (23:45)
[2019-06-25] MEDS: TRAZODONE HCL 50 MG TAB PO SCH (23:46)
[2019-06-25] MEDS: methylPREDNISolone 40 MG in SYRINGE 0 ML IV SCH (23:48)
[2019-06-25] MEDS: HEPARIN SOD 5,000 UNIT/0.5 ML VIAL SQ SCH (23:48)
[2019-06-26] MEDS: ALBUTEROL 0.083% NEBU SOLN 3 ML VIAL INH SCH ×5 (00:17→19:06)
--- NOTE | 2019-06-26 00:36 | Emergency Department Note ---
Entered by Gale Foster acting as a scribe for ED Provider Note CHIEF COMPLAINT: Shortness of breath HISTORY OF PRESENT ILLNESS: The patient is a 69 year old male who presents to the Emergency Room with complaints of worsening shortness of breath that started 1 week ago. The patient states that he also has sharp right sided chest pain secondary to coughing so much. The patient rates his pain as a 8/10. The patient states that his cough is productive with thick white and yellow mucous. The patient notes that he usually wears 2L of oxygen via nasal cannula, but he has increased it to 4L all of the time because he has been feeling more short of breath. The patient states that after he got up today to make coffee and go to the bathroom, his O2 saturation was 72%. The patient notes that he has been diagnosed with pneumonia 6 times in the past 3 years. The patient notes that his current symptoms feel similar to when he had pneumonia. The patient notes that his has noticed him audibly wheezing. Pt denies LOC, headache, fevers, chills, diaphoresis, visual changes, neck pain, nausea, vomiting, abdominal pain, back pain, melena, hematochezia, urinary symptoms, numbness, weakness, lymphadenopathy, rash, or other complai nts. REVIEW OF SYSTEMS: See HPI for pertinent positives and negatives. A total of ten systems were reviewed and were otherwise negative. PMHx/PSHx: COPD, emphysema, hypertension, pneumonia, kidney stones, depression, PTSD and osteoarthritis. SOCIAL HISTORY: Patient lives at home. PHYSICAL EXAM: GENERAL: Awake, alert, uncomfortable and tired-appearing, in no distress HENT: Normocephalic, atraumatic. Oropharynx unremarkable. EYES: PERRL. Normal conjunctiva. Sclera non-icteric. NECK: Inspection normal. Non-tender. Supple. No nuchal rigidity. FROM. No masses. RESPIRATORY: Wheezes bilaterally, increased work of breathing. No rales. CARDIAC: Normal rate. Normal rhythm. No murmurs. No rubs. Extremities warm and well perfused. Pulses equal. No JVD. GI: Soft, non-distended. No tenderness to palpation. No rebound or guarding. No masses. RECTAL: Deferred. MUSCULOSKELETAL: Atraumatic. Chest examination reveals no tenderness. The back is symmetrical on inspection without obvious abnormality. There is no CVA tenderness to palpation. No joint edema. LOWER EXTREMITIES: Calves are equal size bilaterally and non-tender. No edema. No discoloration. NEURO: Normal sensorium. No sensory or motor deficits noted. SKIN: No rash or jaundice noted. EMERGENCY DEPARTMENT COURSE: 1458: Past medical records reviewed. The patient was evaluated in room A09A, and a complete history and physical examination were performed. 1738: I updated the patient on the plan for admission. He verbally agrees and u nderstands. 175: I discussed the patient's case with Dr. Sissy Pedraza, Hospitalist. He will evaluate the patient for further management. MEDICAL DECISION MAKING: A9 Prior records/ancillary studies reviewed. Triage Nursing notes reviewed and agree them. The patient's history was concerning for shortness of breath and chest pain. Differential diagnosis: Etiologies such as pneumonia, COPD, reactive airway disease, CHF, cardiac ischemia, pulmonary embolism, pneumothorax, musculoskeletal, infections, gastrointestinal, as well as others were entertained. Physical examination: As above. The patient was requiring 4 L nasal cannula oxygen to maintain his saturations barely at 90 to 91% ER treatment provided: DuoNeb x2 Solu-Medrol 125 mg IV IV morphine x2 On reassessment the patient felt better. IV doxycycline Diagnostic interpretation by me: The electrocardiogram was negative for ischemic change. The labs revealed an unremarkable CBC and chemistry panel. Troponin negative. Imaging studies: Chest x-ray negative for acute process. CT PE study was performed and showed advanced COPD/emphysema with bronchitis. No pneumothorax or pulmonary embolism. The patient has pleuritic chest pain and what appears to be a COPD exacerbation. He is requiring twice his normal oxygen delivery to maintain his saturations in the 90% range. Consultation: A consultation was placed with the hospitalist. The case was discussed and diagnostics were reviewed. The patient was evaluated in the ER for further treatment. IMPRESSION: Hypoxia, COPD exacerbation, bronchitis. PLAN: Admitted as inpatient The scribe's documentation has been prepared under my direction and personally reviewed by me in its entirety. I confirm that the note above accurately refle cts all work, treatment, procedures, and medical decision making performed by me. 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 Other Information That Helps Us Care for You: No Feels Safe at Home: Yes Safety Concerns: Feels Safe At This Time Smoking Status: Former smoker Tobacco Type: cigarettes ; Cigarettes Per Day: 40 pack year hx ; Do You Dip or Chew Tobacco: No ; Second Hand Exposure: No ; Tobacco Cessation Education Requested by Patient: No Hx Alcohol Use: Yes Alcohol type: hard liquor Hx Substance Use: No Results & Data Vital Signs Vital Signs - 24 hr 06/25/19 14:46 06/25/19 15:00 06/25/19 15:05 Temperature 37.1 C Temperature Source Oral Pulse Rate 89 78 Pulse Rate [Right Finger] Pulse Rate from SpO2 Sensor 77 Respiratory Rate 20 19 Respiratory Effort / Characteristics Non-Labored Respiratory Depth Normal Blood Pressure 128/74 132/73 Blood Pressure Mean 92 83 Blood Pressure Position Lying Pulse Oximetry 90 96 97 Oxygen Delivery Method Nasal Cannula Nasal Cannula Oxygen Flow Rate 4 4 Sepsis Recent Fever Within 48 Hours No Sepsis New/Unexplained Change in Mental Status No Sepsis Action Taken by Nursing No Action Required 06/25/19 15:30 06/25/19 15:31 06/25/19 15:32 Temperature Temperature Source Pulse Rate 76 75 Pulse Rate [Right Finger] 79 Pulse Rate from SpO2 Sensor 76 75 Respiratory Rate 20 21 20 Respiratory Effort / Characteristics Non-Labored Respiratory Depth Blood Pressure 125/67 Blood Pressure Mean 92 Blood Pressure Position Pulse Oximetry 96 96 96 Oxygen Delivery Method Oxygen Flow Rate 4 Sepsis Recent Fever Within 48 Hours Sepsis New/Unexplained Change in Mental Status Sepsis Action Taken by Nursing 06/25/19 15:50 06/25/19 16:00 06/25/19 16:01 Temperature Temperature Source Pulse Rate 76 78 77 Pulse Rate [Right Finger] Pulse Rate from SpO2 Sensor 77 78 77 Respiratory Rate 21 20 21 Respiratory Effort / Characteristics Respiratory Depth Blood Pressure 132/50 L 128/57 L Blood Pressure Mean 94 85 Blood Pressure Position Pulse Oximetry 94 94 94 Oxygen Delivery Method Oxygen Flow Rate Sepsis Recent Fever Within 48 Hours Sepsis New/Unexplained Change in Mental Status Sepsis Action Taken by Nursing 06/25/19 16:25 06/25/19 17:00 06/25/19 18:00 Temperature Temperature Source Pulse Rate 82 76 77 Pulse Rate [Right Finger] 76 Pulse Rate from SpO2 Sensor 82 76 77 Respiratory Rate 16 21 23 Respiratory Effort / Characteristics Non-Labored Respiratory Depth Blood Pressure 119/64 124/66 115/65 Blood Pressure Mean 75 78 91 Blood Pressure Position Pulse Oximetry 86 L 91 90 Oxygen Delivery Method Nasal Cannula Nasal Cannula Oxygen Flow Rate 4 4 Sepsis Recent Fever Within 48 Hours Sepsis New/Unexplained Change in Mental Status Sepsis Action Taken by Longterm Medications Current Medication List: was personally reviewed by me Laboratory Data Attestation: I reviewed the patient's lab results. Result diagrams: 06/25/19 15:28 06/25/19 15:28 Lab Results 06/25/19 06/25/19 Range/Units 15:28 15:28 WBC 6.77 (4.8-10.8) K/uL RBC 4.54 L (4.7-6.1) M/uL Hgb 13.3 L (14.0-18.0) g/dL Hct 41.0 L (42-52) % MCV 90.3 (80-100) fL MCH 29.3 (25-34) pg MCHC 32.4 (32-36) g/dL RDW Std Deviation 52.2 H (36.4-46.3) fL RDW Coeff of Ren 15.8 H (11.5-14.5) % Plt Count 122 L (130-400) K/uL MPV 9.3 (7.4-10.4) fL Immature Gran % (Auto) 0.3 % Neut % (Auto) 72.4 % Lymph % (Auto) 14.6 % [place] % (Auto) 12.1 % Eos % (Auto) 0.3 % Baso % (Auto) 0.3 % Immature Gran # (Auto) 0.02 (0.00-0.02) K/uL Neut # (Auto) 4.90 (1.4-6.5) K/uL Lymph # (Auto) 0.99 L (1.2-3.4) K/uL [place] # (Auto) 0.82 H (0.11-0.59) K/uL Eos # (Auto) 0.02 (0-0.5) K/uL Baso # (Auto) 0.02 (0-0.2) K/uL Sodium 135 L (136-145) mmol/L Potassium 4.1 (3.5-5.1) mmol/L Chloride 99 (98-107) mmol/L Carbon Dioxide 33 H (21-32) mmol/L Anion Gap 3.0 (3-11) BUN 11 (7-18) mg/dl Creatinine 1.20 (0.6-1.4) mg/dl Est Cr Clr Drug Dosing 65.9 ml/min Est GFR ( Amer) 71.1 Est GFR (Non-Af Amer) 61.3 BUN/Creatinine Ratio 9.5 L (10-20) Glucose 111 H (70-99) mg/dl Calcium 9.3 (8.5-10.1) mg/dl Total Bilirubin 0.6 (0.2-1) mg/dl AST 23 (15-37) U/L ALT 21 (12-78) U/L Alkaline Phosphatase 82 (45-117) U/L Troponin I < 0.015 (0-0.045) ng/ml Total Protein 7.7 (6.4-8.2) gm/dl Albumin 3.8 (3.4-5.0) gm/dl Globulin 3.9 (2.5-4.0) gm/dl Albumin/Globulin Ratio 1.0 (0.9-2) Lipase 85 (73-393) U/L Administered Medications Acetaminophen (Tylenol) 650 mg PO Q4H PRN PRN Reason: Pain or Fever Stop: 07/25/19 18:27 Last Admin: 06/25/19 21:22 Dose: 650 mg Documented by: [id number] Albuterol (Ventolin 0.083% 2.5mg/3ml) 2.5 mg INH Q6R [facility] Stop: 07/25/19 21:15 Last Admin: 06/26/19 00:17 Dose: 2.5 mg Documented by: [id number] Buspirone HCl (Buspar) 5 mg PO HS [facility] Stop: 07/25/19 21:15 Last Admin: 06/25/19 23:45 Dose: 5 mg Documented by: [id number] Doxycycline Hyclate (Vibramycin) 100 mg PO BID [facility] Stop: 07/03/19 09:01 Last Admin: 06/25/19 23:45 Dose: 100 mg Documented by: [id number] Guaifenesin (Organidin Nr) 400 mg PO BID [facility] Stop: 07/25/19 21:15 Last Admin: 06/25/19 23:45 Dose: 400 mg Documented by: [id number] Heparin Sodium (Porcine) (Heparin Sodium (Porcine)) 5,000 units SQ Q12 [facility] Stop: 07/25/19 20:59 Last Admin: 06/25/19 23:48 Dose: 5,000 units Documented by: [id number] Cosigned by: [id number] Methylprednisolone 40 mg/ (Syringe) 0.64 mls @ 1.5 mls/min IV Q8H [facility] Stop: 07/26/19 00:00 Last Admin: 06/25/19 23:48 Dose: 1.5 mls/min Documented by: [id number] Ioversol (Optiray 320 125ml) 97 ml IV ONCE PRN PRN Reason: Interaction Checking Stop: 06/29/19 16:22 Last Admin: 06/25/19 16:24 Dose: 97 ml Documented by: [id number] Pantoprazole Sodium (Protonix) 40 mg PO BID [facility] Stop: 07/25/19 22:59 Last Admin: 06/25/19 23:45 Dose: 40 mg Documented by: [id number] Sertraline HCl (Zoloft) 200 mg PO HS [facility] Stop: 07/25/19 21:15 Last Admin: 06/25/19 23:44 Dose: 200 mg Documented by: [id number] Trazodone HCl (Desyrel) 150 mg PO HS [facility] Stop: 07/25/19 21:15 Last Admin: 06/25/19 23:46 Dose: 150 mg Documented by: [id number] Discontinued Medications Albuterol (Duoneb) 3 ml NEB NOW STA Stop: 06/25/19 15:02 Last Admin: 06/25/19 15:29 Dose: 3 ml Documented by: [id number] Albuterol (Duoneb) 3 ml NEB NOW STA Stop: 06/25/19 17:37 Last Admin: 06/25/19 17:59 Dose: 3 ml Documented by: [id number] Doxycycline Hyclate 100 mg/ (Dextrose) 110 mls @ 50 mls/hr IV NOW STA Stop: 06/25/19 19:47 Last Infusion: 06/25/19 20:35 Dose: 0 mls/hr Documented by: [id number] Admin: 06/25/19 18:16 Dose: 50 mls/hr Documented by: [id number] Methylprednisolone (Solumedrol) 125 mg IV NOW STA Stop: 06/25/19 15:02 Last Admin: 06/25/19 15:36 Dose: 125 mg Documented by: [id number] Morphine Sulfate (Morphine Sulfate) 4 mg IV NOW STA Stop: 06/25/19 15:03 Last Admin: 06/25/19 15:36 Dose: 4 mg Documented by: [id number] Morphine Sulfate (Morphine Sulfate) 4 mg IV NOW STA Stop: 06/25/19 17:37 Last Admin: 06/25/19 18:16 Dose: 4 mg Documented by: [id number] Imaging Data Radiologist's Impression: Radiology results as stated below per my review and the radiologist's interpretation: XR chest 1V portable CLINICAL HISTORY: Chest Pain dyspnea COMPARISON STUDY: 09/09/2018 FINDINGS: Chronic interstitial change of both hemithorax. Stable emphysematous change. Stable bleb formation. No evidence for superimposed infiltrate. Diaphragms are smooth. IMPRESSION: Chronic and emphysematous change. No acute process. ACT 112: Negative or not required by law. The above report was generated using voice recognition software. It may contain grammatical, syntax or spelling errors. Electronically signed by: Tomer Villarreal M.D. 06/25/2019 3:[address] angio chest PE protocol CT DOSE: 400.59 mGy.cm HISTORY: 69 years-old Male with PE, right chest pain. Acute right-sided chest pain or shortness of breath and emphysema TECHNIQUE: Multiple CTA images of the chest were obtained after the intravenous administration of 97 ml Optiray 320. Coronal and sagittal MIPS were obtained from the axial data set and were submitted for review. All measurements were obtained according to NASCET criteria. A dose lowering technique was utilized adhering to the principles of ALARA. COMPARISON: Chest radiograph of same day, CTA chest 05/22/2018 FINDINGS: CTA: Heart is upper limits of normal in size. No pericardial effusion. Reflux of contrast into the IVC. Mild coronary arterial calcifications. No thoracic aortic aneurysm or dissection. Moderate mixed plaque of the thoracic aorta with patency of the imaged great vessels. The main pulmonary artery is dilated measuring up to 3.6 cm. Pulmonary arterial tree is opacified to level of the proximal subsegmental branches and demonstrates no appreciable filling defects suggest pulmonary thromboembolic disease. Mild respiratory motion artifact limits evaluation of the lung bases. CT CHEST: Unremarkable thyroid. Enlarged subcarinal lymph nodes measure up to 2.6 x 1.2 cm. Enlarged hilar lymph nodes measure up to 1.5 cm on the right. Calcified hilar lymph nodes are also present. Findings appear similar from comparison. No pneumothorax or pleural effusion. Severe emphysema with chronic fibrotic changes. Moderate bronchial wall thickening. Scattered calcified granulomata. Mild dependent bibasilar groundglass densities suggest atelectasis. 4 mm solid nodule of the left upper lobe, image 167 series 4 is unchanged from comparison. Subpleural 4 mm solid nodule of the superior segment right lower lobe, image 180 series 4 appears new from comparison. Unchanged 4 mm solid nodule of the right lower lobe on image 158 series 4. Central airways appear patent. Calcified granulomata of the spleen. No acute process of the imaged upper abdomen. Soft tissues are within normal limits. Degenerative changes of the shoulders and spine. IMPRESSION: 1. No evidence of pulmonary thromboembolic disease. 2. Advanced emphysema with chronic fibrotic changes. Moderate bronchial wall thickening suggests associated bronchitis. 3. No pleural effusion or airspace consolidation typical for pneumonia. 4. Prior granulomatous disease. 5. There are a few scattered 4 mm solid nodules including a new subpleural nodule of the superior segment right lower lobe as above. 6. Probable pulmonary arterial hypertension. ACT 112: Negative or not required by law. Please refer to below summary of Fleischner criteria recommendations for follow- up of incidental CT nodules (Medardo Martinez, Guidelines for management of small pulmonary nodules detected on CT scans: A statement from the Fleischner Society, Radiology 237: [phone].) SOLID NODULES Multiple nodules size: <6 mm * Low risk patients: no routine follow-up * high risk patients: optional CT at 12 months Note: newly detected indeterminate nodule in persons 35 years of age or older. * Low risk patients: minimal or absent history of smoking and/or other known risk factors * high risk patients: history of smoking or of other known risk factors (e.g. first degree relative with lung cancer, or exposure to asbestos, radon, uranium) * if a nodule up to 8 mm is partly solid or is ground glass further follow-up is required after 24 months to exclude possible slow growing adenocarcinoma (MACHO) The above report was generated using voice recognition software. It may contain grammatical, syntax or spelling errors. Electronically signed by: Nicholas Cr M.D. 06/25/2019 4:36 PM ECG Data Attestation: I personally reviewed and interpreted this ECG as follows: Indication: + chest pain Rate (beats per minute): 96 Rhythm: normal sinus ECG Intervals/blocks: + Normal QRS ECG [place]: + Normal ECG ST segments: no ST depression and no ST elevation ECG Findings: no PACs and no PVCs Blood Pressure Blood Pressure Findings: Normal blood pressure Blood Pressure Disposition: did not require urgent referral Discharge Plan Visit Data *Final* Discharge Date/Time: 06/25/19 21:26 Chief Complaint: Chest Pain Stated Complaint: CHEST PAIN ED Provider: Sanjeev Andino Discharge Problem: Hypoxia, COPD exacerbation, Bronchitis Patient Disposition: Admitted As Inpatient Discharge Instructions Interventions: ED Discharge Assessment Last Done: 06/25/19 20:55 The scribe's documentation has been prepared under my direction and personally reviewed by me in its entirety. I confirm that the note above accurately reflects all work, treatment, procedures, and medical decision making performed by me.
[2019-06-26] MEDS: TRAMADOL HCL 50 MG TABLET PO PRN ×2 (01:07→06:20)
[2019-06-26] MEDS: KETOROLAC TROMETHAMINE 15 MG/ML VIAL IV PRN (01:08)
[2019-06-26] MEDS: ACETAMINOPHEN 325 MG TAB PO PRN (03:07)
[2019-06-26 06:55] LABS: Basophils # (auto) 0.01 K/uL (0-0.2); Basophils % (auto) 0.3 %; Hematocrit (blood only) 36.4 % (42-52); Hemoglobin 11.7 g/dL (14.0-18.0); Immature Granulocytes # (auto) 0.01 K/uL (0.00-0.02); Immature Granulocytes % (auto) 0.3 %; Lymphocytes # (auto) 0.55 K/uL (1.2-3.4); Lymphocytes % (auto) 14.4 %; Mean Corpuscular Hemoglobin 28.7 pg (25-34); Mean Corpuscular Hgb Conc 32.1 g/dL (32-36); Mean Corpuscular Volume 89.2 fL (80-100); Monocytes % (auto) 5.2 %; Neutrophils # (auto) 3.04 K/uL (1.4-6.5); Neutrophils % (auto) 79.8 %; Platelet Count 123 K/uL (130-400); RDW Coefficient of Variation 15.2 % (11.5-14.5); RDW Standard Deviation 49.5 fL (36.4-46.3); Red Blood Count 4.08 M/uL (4.7-6.1); White Blood Count 3.81 K/uL (4.8-10.8)
[2019-06-26 07:29] LABS: BUN Creatinine Ratio 12.9 (10-20); Est GFR (African American) 72.5; Est GFR (Non-African American) 62.6; Phosphorus 2.6 mg/dl (2.5-4.9); Potassium 4.2 mmol/L (3.5-5.1)
[2019-06-26] MEDS: methylPREDNISolone 40 MG in SYRINGE 0 ML IV SCH ×2 (09:14→15:58)
[2019-06-26] MEDS: UMECLIDINIUM BROMIDE 62.5MCG/BLISTER 7 PUFFS/INHALER INH SCH (09:15)
[2019-06-26] MEDS: FLUTICASONE/VILANTEROL 100/25MCG 14 PUFFS/INHALER INH SCH (09:15)
[2019-06-26] MEDS: PANTOprazole 40 MG TAB PO SCH ×2 (09:17→19:59)
[2019-06-26] MEDS: HEPARIN SOD 5,000 UNIT/0.5 ML VIAL SQ SCH ×2 (09:17→19:59)
[2019-06-26] MEDS: DOXYCYCLINE HYCLATE 100 MG CAP PO SCH ×2 (09:18→19:58)
[2019-06-26] MEDS: guaiFENesin 200 MG TAB PO SCH ×2 (09:18→19:58)
[2019-06-26] MEDS: dilTIAZem ER 120 MG CAPCR PO SCH (09:19)
[2019-06-26] MEDS: FINASTERIDE 5 MG TAB PO SCH (09:19)
--- NOTE | 2019-06-26 15:40 | Hospitalist Progress Note ---
Date of Service June 26, 2019 Assessment & Plan (1) COPD exacerbation: Improved since yesterday. Recent exposure to RSV which was possible inciting factor. Swab was performed however this will be a send out. Will empirically place him on droplet precautions to protect others. Continue supportive care. Continue increased level of oxygen supplementation. Continue current therapy with Solu-Medrol IV every 8, doxycycline, guaifenesin twice daily, Incruse Ellipta, Breo. (2) Respiratory failure with hypoxia: Chronic respiratory failure requiring 2 L/min of oxygen supplementation at home secondary to COPD. (3) HTN (hypertension): At goal, continue Cardizem per home regimen. Low-salt diet. (4) BPH (benign prostatic hyperplasia): Continue finasteride per home regimen. (5) Depression: Stable, continue sertraline 200 mg p.o. nightly, trazodone 150 mg p.o. nightly, BuSpar 5 mg p.o. nightly all per home regimen. (6) DVT prophylaxis: Heparin Full code Disposition-continue PCU monitoring Susana Fry DO [facility] Hospitalist Subjective 69 yo M wtih COPD, h/o smoking but not active, on chronic oxygen 2LPM at home. Recently had an exposure to RSV as grandson was sick and he held him all day (3 months old). His symptoms began 7-10 days ago and became worse yesterday. He reported chest pain yesterday with some relief with morphine. Trop trend was negative and EKG revealed no ST changes or acute ischemia. He is still tight but is feeling better today than yesterday. He denies other symptoms and is not febrile and is tolerating PO. He is still requiring twice as much oxygen as his baseline. Review of Systems Review of Systems: All systems reviewed & are unremarkable except as noted in HPI & below Physical Exam Physical Exam: CONSTITUTIONAL: WNWD, vitals as above, generally well- appearing EYES: normal conjunctivae, no scleral icterus ENT: MMM RESPIRATORY: wheezing throughout all lung cisneros and poor air movement. Normal respiratory effort and no conversational dyspnea noted. CARDIOVASCULAR: regular rate and rhythm, S1 and 2 heard without murmurs, gallops or rubs, no JVD, no peripheral edema GASTROINTESTINAL: normal bowel sounds, soft, nontender, nondistended MUSCULOSKELETAL: strength 5/5 throughout, head is normocephalic and atraumatic SKIN: warm and dry NEUROLOGIC: CN 2-12 grossly intact, normal cognition, normal speech, no gross focal deficits. PSYCHIATRIC: alert cooperative and oriented to person, place and time. Results & Data Vital Signs (Past 12 Hours) Vital Signs Temp Pulse Pulse Resp BP Pulse Ox 06/26/19 15:11 36.6 C 83 18 121/67 91 06/26/19 13:22 77 20 93 06/26/19 11:34 36.8 C 71 18 120/66 91 06/26/19 08:45 72 06/26/19 07:10 36.4 C L 78 24 119/69 95 06/26/19 06:59 71 20 95 06/26/19 04:43 37.0 C 67 20 111/60 91 Laboratory Results Short CBC 06/26/19 Range/Units 06:37 WBC 3.81 L (4.8-10.8) K/uL Hgb 11.7 L (14.0-18.0) g/dL Hct 36.4 L (42-52) % Plt Count 123 L (130-400) K/uL BMP 06/25/19 06/26/19 15:28 06:37 Sodium 135 L 131 L Potassium 4.1 4.2 Chloride 99 97 L Carbon Dioxide 33 H 28 BUN 11 15 Creatinine 1.20 1.18 Glucose 111 H 204 H Calcium 9.3 9.0 Cardiac Enzymes 06/25/19 06/25/19 Range/Units 15:28 19:01 Troponin I < 0.015 < 0.015 (0-0.045) ng/ml Liver Function 06/25/19 Range/Units 15:28 Total Bilirubin 0.6 (0.2-1) mg/dl AST 23 (15-37) U/L ALT 21 (12-78) U/L Alkaline Phosphatase 82 (45-117) U/L Albumin 3.8 (3.4-5.0) gm/dl Medications Administered Current Inpatient Medications Acetaminophen (Tylenol) 650 mg PO Q4H PRN PRN Reason: Pain or Fever Stop: 07/25/19 18:27 Last Admin: 06/26/19 03:07 Dose: 650 mg Documented by: Al Hydrox/Mg Hydrox/Simethicone (Maalox) 15 ml PO Q4H PRN PRN Reason: Dyspepsia Stop: 07/25/19 18:27 Albuterol (Ventolin 0.083% 2.5mg/3ml) 2.5 mg INH Q6R [facility] Stop: 07/25/19 21:15 Last Admin: 06/26/19 13:21 Dose: 2.5 mg Documented by: Albuterol (Ventolin Hfa) 2 puffs INH Q6H PRN PRN Reason: Shortness Of Breath Or Wheezing Stop: 07/25/19 21:15 Buspirone HCl (Buspar) 5 mg PO HS [facility] Stop: 07/25/19 21:15 Last Admin: 06/25/19 23:45 Dose: 5 mg Documented by: Cetirizine HCl (Zyrtec) 10 mg PO DAILY PRN PRN Reason: Allergy Symptoms Stop: 07/25/19 21:15 Diltiazem HCl (Tiazac) 120 mg PO DAILY [facility] Stop: 07/26/19 08:59 Last Admin: 06/26/19 09:19 Dose: 120 mg Documented by: Doxycycline Hyclate (Vibramycin) 100 mg PO BID [facility] Stop: 07/03/19 09:01 Last Admin: 06/26/19 09:18 Dose: 100 mg Documented by: Ergocalciferol (Vitamin D2) 50,000 units PO Edgar@0900 [facility] Stop: 07/28/19 08:59 Finasteride (Proscar) 5 mg PO DAILY [facility] Stop: 07/26/19 08:59 Last Admin: 06/26/19 09:19 Dose: 5 mg Documented by: Fluticasone/Vilanterol (Breo Ellipta 100/25 Mcg Inh) 1 puffs INH DAILY [facility]; Protocol Stop: 07/26/19 08:59 Last Admin: 06/26/19 09:15 Dose: 1 puffs Documented by: Guaifenesin (Organidin Nr) 400 mg PO BID [facility] Stop: 07/25/19 21:15 Last Admin: 06/26/19 09:18 Dose: 400 mg Documented by: Heparin Sodium (Porcine) (Heparin Sodium (Porcine)) 5,000 units SQ Q12 [facility] Stop: 07/25/19 20:59 Last Admin: 06/26/19 09:17 Dose: 5,000 units Documented by: Methylprednisolone 40 mg/ (Syringe) 0.64 mls @ 1.5 mls/min IV Q8H [facility] Stop: 07/26/19 00:00 Last Admin: 06/26/19 09:14 Dose: 1.5 mls/min Documented by: Ioversol (Optiray 320 125ml) 97 ml IV ONCE PRN PRN Reason: Interaction Checking Stop: 06/29/19 16:22 Last Admin: 06/25/19 16:24 Dose: 97 ml Documented by: Ketorolac Tromethamine (Toradol) 15 mg IV Q6H PRN PRN Reason: Pain Stop: 07/01/19 00:33 Last Admin: 06/26/19 01:08 Dose: 15 mg Documented by: Morphine Sulfate (Morphine Sulfate) 2 mg IV Q2H PRN PRN Reason: Pain Stop: 07/10/19 15:40 Ondansetron HCl (Zofran) 4 mg IV Q6H PRN PRN Reason: Nausea Stop: 07/25/19 18:27 Pantoprazole Sodium (Protonix) 40 mg PO BID [facility] Stop: 07/25/19 22:59 Last Admin: 06/26/19 09:17 Dose: 40 mg Documented by: Sertraline HCl (Zoloft) 200 mg PO HS [facility] Stop: 07/25/19 21:15 Last Admin: 06/25/19 23:44 Dose: 200 mg Documented by: Tramadol HCl (Ultram) 25 mg PO Q4H PRN PRN Reason: Pain Stop: 07/26/19 00:33 Last Admin: 06/26/19 06:20 Dose: 25 mg Documented by: Trazodone HCl (Desyrel) 150 mg PO HS [facility] Stop: 07/25/19 21:15 Last Admin: 06/25/19 23:46 Dose: 150 mg Documented by: Umeclidinium [place] (Incruse Ellipta) 1 puffs INH DAILY [facility] Stop: 07/26/19 08:59 Last Admin: 06/26/19 09:15 Dose: 1 puffs Documented by: (1) Respiratory failure with hypoxia Chronicity: acute on chronic Qualified Code(s): J96.21 - Acute and chronic respiratory failure with hypoxia
[2019-06-26] MEDS ORDERED: MoRPHine SULFATE 2 MG/ML CARP IV STA (15:41)
[2019-06-26] MEDS: MoRPHine SULFATE 2 MG/ML CARP IV PRN ×2 (19:55→22:02)
[2019-06-26] MEDS: SERTRALINE HCL 100 MG TABLET PO SCH (19:57)
[2019-06-26] MEDS: TRAZODONE HCL 50 MG TAB PO SCH (19:58)
[2019-06-27] MEDS: ALBUTEROL 0.083% NEBU SOLN 3 ML VIAL INH SCH ×4 (00:56→19:01)
[2019-06-27] MEDS: MoRPHine SULFATE 2 MG/ML CARP IV PRN ×4 (02:08→09:00)
[2019-06-27 06:19] LABS: Hematocrit (blood only) 34.7 % (42-52); Hemoglobin 11.5 g/dL (14.0-18.0); Mean Corpuscular Hgb Conc 33.1 g/dL (32-36); Mean Corpuscular Volume 87.6 fL (80-100); Mean Platelet Volume 9.8 fL (7.4-10.4); Platelet Count 121 K/uL (130-400); RDW Standard Deviation 48.5 fL (36.4-46.3); Red Blood Count 3.96 M/uL (4.7-6.1); White Blood Count 7.89 K/uL (4.8-10.8)
[2019-06-27 06:51] LABS: BUN Creatinine Ratio 17.3 (10-20); Calcium 9.3 mg/dl (8.5-10.1); Creatinine Clr Calc Pharmacy 64.9 ml/min; Est GFR (African American) 78.1; Est GFR (Non-African American) 67.4; Potassium 4.3 mmol/L (3.5-5.1)
[2019-06-27] MEDS: FINASTERIDE 5 MG TAB PO SCH (08:43)
[2019-06-27] MEDS: methylPREDNISolone 40 MG in SYRINGE 0 ML IV SCH ×3 (08:43→16:41)
[2019-06-27] MEDS: PANTOprazole 40 MG TAB PO SCH ×2 (08:43→20:17)
[2019-06-27] MEDS: guaiFENesin 200 MG TAB PO SCH ×2 (08:43→20:17)
[2019-06-27] MEDS: dilTIAZem ER 120 MG CAPCR PO SCH (08:43)
[2019-06-27] MEDS: FLUTICASONE/VILANTEROL 100/25MCG 14 PUFFS/INHALER INH SCH (08:44)
[2019-06-27] MEDS: DOXYCYCLINE HYCLATE 100 MG CAP PO SCH ×2 (08:44→20:18)
[2019-06-27] MEDS: UMECLIDINIUM BROMIDE 62.5MCG/BLISTER 7 PUFFS/INHALER INH SCH (08:44)
[2019-06-27] MEDS: HEPARIN SOD 5,000 UNIT/0.5 ML VIAL SQ SCH ×2 (08:44→20:16)
[2019-06-27] MEDS: KETOROLAC TROMETHAMINE 15 MG/ML VIAL IV PRN (09:01)
[2019-06-27] MEDS: TRAMADOL HCL 50 MG TABLET PO SCH ×2 (11:40→20:20)
[2019-06-27] MEDS: ACETAMINOPHEN 500 MG TAB PO SCH ×2 (11:41→20:18)
--- NOTE | 2019-06-27 11:53 | Hospitalist Progress Note ---
Date of Service June 27, 2019 Assessment & Plan (1) COPD exacerbation: Improved since yesterday. Recent exposure to RSV which was possible inciting factor. Swab was performed however this will be a send out. Will empirically place him on droplet precautions to protect others. Continue supportive care. Continue oxygen supplementation, now at baseline. Continue current therapy with Solu-Medrol IV every 8, doxycycline, guaifenesin twice daily, Incruse Ellipta, Breo. (2) Respiratory failure with hypoxia: Chronic respiratory failure requiring 2 L/min of oxygen supplementation at home secondary to COPD. (3) HTN (hypertension): At goal, continue Cardizem per home regimen. Low-salt diet. (4) BPH (benign prostatic hyperplasia): Continue finasteride per home regimen. (5) Depression: Stable, continue sertraline 200 mg p.o. nightly, trazodone 150 mg p.o. nightly, BuSpar 5 mg p.o. nightly all per home regimen. (6) DVT prophylaxis: Heparin Full code Disposition-continue PCU monitoring Susana Fry DO [facility] Hospitalist Subjective 69-year-old man admitted for COPD exacerbation. Still reporting some coughing with chest pain that is tender to palpation on the chest wall. Patient feels this is musculoskeletal in nature. Current cardiac work-up has been negative and telemetry review revealed no evidence of arrhythmias. He has been using morphine every 2 hours to control the pain and we will switch to a different treatment regimen today. He reports an improvement in his breathing again today but is not back to baseline. He is on baseline oxygen use at this time. Review of Systems Review of Systems: All systems reviewed & are unremarkable except as noted in HPI & below Physical Exam Physical Exam: CONSTITUTIONAL: WNWD, vitals as above, generally well- appearing EYES: normal conjunctivae, no scleral icterus ENT: MMM RESPIRATORY: wheezing throughout all lung cisneros and poor air movement., somewhat improved. Normal respiratory effort and no conversational dyspnea noted. CARDIOVASCULAR: regular rate and rhythm, S1 and 2 heard without murmurs, gallops or rubs, no JVD, no peripheral edema GASTROINTESTINAL: normal bowel sounds, soft, nontender, nondistended MUSCULOSKELETAL: strength 5/5 throughout, head is normocephalic and atraumatic SKIN: warm and dry NEUROLOGIC: CN 2-12 grossly intact, normal cognition, normal speech, no gross focal deficits. PSYCHIATRIC: alert cooperative and oriented to person, place and time. Results & Data Vital Signs (Past 12 Hours) Vital Signs Temp Pulse Pulse Resp BP Pulse Ox 06/27/19 11:05 36.4 C L 81 19 129/71 91 06/27/19 09:20 69 06/27/19 07:15 77 19 99 06/27/19 06:18 36.6 C 70 20 124/76 92 06/27/19 04:02 36.7 C 73 19 135/73 91 06/27/19 00:56 68 16 94 Laboratory Results Short CBC 06/27/19 Range/Units 05:51 WBC 7.89 (4.8-10.8) K/uL Hgb 11.5 L (14.0-18.0) g/dL Hct 34.7 L (42-52) % Plt Count 121 L (130-400) K/uL BMP 06/27/19 05:51 Sodium 133 L Potassium 4.3 Chloride 98 Carbon Dioxide 30 BUN 19 H Creatinine 1.11 Glucose 184 H Calcium 9.3 Medications Administered Current Inpatient Medications Acetaminophen (Tylenol) 1,000 mg PO Q8 [facility] Stop: 07/27/19 11:14 Last Admin: 06/27/19 11:41 Dose: 1,000 mg Documented by: Al Hydrox/Mg Hydrox/Simethicone (Maalox) 15 ml PO Q4H PRN PRN Reason: Dyspepsia Stop: 07/25/19 18:27 Albuterol (Ventolin 0.083% 2.5mg/3ml) 2.5 mg INH Q6R [facility] Stop: 07/25/19 21:15 Last Admin: 06/27/19 07:13 Dose: 2.5 mg Documented by: Albuterol (Ventolin Hfa) 2 puffs INH Q6H PRN PRN Reason: Shortness Of Breath Or Wheezing Stop: 07/25/19 21:15 Buspirone HCl (Buspar) 5 mg PO HS [facility] Stop: 07/25/19 21:15 Last Admin: 06/26/19 19:59 Dose: 5 mg Documented by: Cetirizine HCl (Zyrtec) 10 mg PO DAILY PRN PRN Reason: Allergy Symptoms Stop: 07/25/19 21:15 Diltiazem HCl (Tiazac) 120 mg PO DAILY [facility] Stop: 07/26/19 08:59 Last Admin: 06/27/19 08:43 Dose: 120 mg Documented by: Doxycycline Hyclate (Vibramycin) 100 mg PO BID [facility] Stop: 07/03/19 09:01 Last Admin: 06/27/19 08:44 Dose: 100 mg Documented by: Ergocalciferol (Vitamin D2) 50,000 units PO Edgar@0900 [facility] Stop: 07/28/19 08:59 Finasteride (Proscar) 5 mg PO DAILY [facility] Stop: 07/26/19 08:59 Last Admin: 06/27/19 08:43 Dose: 5 mg Documented by: Fluticasone/Vilanterol (Breo Ellipta 100/25 Mcg Inh) 1 puffs INH DAILY [facility]; Protocol Stop: 07/26/19 08:59 Last Admin: 06/27/19 08:44 Dose: 1 puffs Documented by: Guaifenesin (Organidin Nr) 400 mg PO BID [facility] Stop: 07/25/19 21:15 Last Admin: 06/27/19 08:43 Dose: 400 mg Documented by: Heparin Sodium (Porcine) (Heparin Sodium (Porcine)) 5,000 units SQ Q12 [facility] Stop: 07/25/19 20:59 Last Admin: 06/27/19 08:44 Dose: 5,000 units Documented by: Methylprednisolone 40 mg/ (Syringe) 0.64 mls @ 1.5 mls/min IV Q8H [facility] Stop: 07/26/19 00:00 Last Admin: 06/27/19 08:43 Dose: 1.5 mls/min Documented by: Ioversol (Optiray 320 125ml) 97 ml IV ONCE PRN PRN Reason: Interaction Checking Stop: 06/29/19 16:22 Last Admin: 06/25/19 16:24 Dose: 97 ml Documented by: Ondansetron HCl (Zofran) 4 mg IV Q6H PRN PRN Reason: Nausea Stop: 07/25/19 18:27 Pantoprazole Sodium (Protonix) 40 mg PO BID [facility] Stop: 07/25/19 22:59 Last Admin: 06/27/19 08:43 Dose: 40 mg Documented by: Sertraline HCl (Zoloft) 200 mg PO HS [facility] Stop: 07/25/19 21:15 Last Admin: 06/26/19 19:57 Dose: 200 mg Documented by: Tramadol HCl (Ultram) 50 mg PO Q8 [facility] Stop: 07/27/19 11:14 Last Admin: 06/27/19 11:40 Dose: 50 mg Documented by: Trazodone HCl (Desyrel) 150 mg PO HS [facility] Stop: 07/25/19 21:15 Last Admin: 06/26/19 19:58 Dose: 150 mg Documented by: Umeclidinium [place] (Incruse Ellipta) 1 puffs INH DAILY [facility] Stop: 07/26/19 08:59 Last Admin: 06/27/19 08:44 Dose: 1 puffs Documented by: (1) Respiratory failure with hypoxia Chronicity: acute on chronic Qualified Code(s): J96.21 - Acute and chronic respiratory failure with hypoxia
[2019-06-27] MEDS: TRAZODONE HCL 50 MG TAB PO SCH (20:16)
[2019-06-27] MEDS: SERTRALINE HCL 100 MG TABLET PO SCH (20:18)
[2019-06-28] MEDS: methylPREDNISolone 40 MG in SYRINGE 0 ML IV SCH ×4 (00:04→23:43)
[2019-06-28] MEDS: ALBUTEROL 0.083% NEBU SOLN 3 ML VIAL INH SCH ×2 (00:14→06:57)
[2019-06-28] MEDS: TRAMADOL HCL 50 MG TABLET PO SCH ×3 (05:31→20:12)
[2019-06-28] MEDS: ACETAMINOPHEN 500 MG TAB PO SCH ×3 (05:32→20:14)
[2019-06-28] MEDS ORDERED: ERGOCALCIFEROL 50,000 UNITS CAP PO SCH (09:00)
[2019-06-28] MEDS: PANTOprazole 40 MG TAB PO SCH ×2 (09:49→20:13)
[2019-06-28] MEDS: dilTIAZem ER 120 MG CAPCR PO SCH (09:49)
[2019-06-28] MEDS: FINASTERIDE 5 MG TAB PO SCH (09:49)
[2019-06-28] MEDS: guaiFENesin 200 MG TAB PO SCH ×2 (09:49→20:14)
[2019-06-28] MEDS: HEPARIN SOD 5,000 UNIT/0.5 ML VIAL SQ SCH ×2 (09:49→20:15)
[2019-06-28] MEDS: DOXYCYCLINE HYCLATE 100 MG CAP PO SCH ×2 (09:49→20:14)
[2019-06-28] MEDS: UMECLIDINIUM BROMIDE 62.5MCG/BLISTER 7 PUFFS/INHALER INH SCH (09:50)
[2019-06-28] MEDS: FLUTICASONE/VILANTEROL 100/25MCG 14 PUFFS/INHALER INH SCH (09:50)
[2019-06-28] MEDS: ALBUT/IPRATROP 3MG/0.5MG NEB 3 ML VIAL NEB SCH ×3 (11:10→19:04)
--- NOTE | 2019-06-28 12:11 | Hospitalist Progress Note ---
Date of Service June 28, 2019 Assessment & Plan (1) COPD exacerbation: Continues to improve clinically and is moving more air now. Continue current therapy with Solu-Medrol IV every 8, doxycycline, guaifenesin twice daily, Incruse Ellipta, Breo. Change albuterol nebs to duonebs scheduled. (2) Respiratory failure with hypoxia: Chronic respiratory failure requiring 2 L/min of oxygen supplementation at home secondary to COPD. (3) HTN (hypertension): At goal, continue Cardizem per home regimen. Low-salt diet. (4) BPH (benign prostatic hyperplasia): Continue finasteride per home regimen. (5) Depression: Stable, continue sertraline 200 mg p.o. nightly, trazodone 150 mg p.o. nightly, BuSpar 5 mg p.o. nightly all per home regimen. (6) DVT prophylaxis: Heparin Full code Disposition-continue PCU monitoring Susana Fry DO [facility] Hospitalist Subjective 69 yo M with COPD exacerbation after RSV exposure. States he is continuing to improve with respect to his breathing and he is coughing less. Afebrile. Skye ating PO and doing well on the steorids. Review of Systems Review of Systems: All systems reviewed & are unremarkable except as noted in HPI & below Physical Exam Physical Exam: CONSTITUTIONAL: WNWD, vitals as above, generally well-a ppearing EYES: normal conjunctivae, no scleral icterus ENT: MMM RESPIRATORY: wheezing throughout all lung cisneros and improved air movement. Normal respiratory effort and no conversational dyspnea noted. On baseline oxygen supplementation. CARDIOVASCULAR: regular rate and rhythm, S1 and 2 heard without murmurs, gallops or rubs, no JVD, no peripheral edema GASTROINTESTINAL: normal bowel sounds, soft, nontender, nondistended MUSCULOSKELETAL: strength 5/5 throughout, head is normocephalic and atraumatic SKIN: warm and dry NEUROLOGIC: CN 2-12 grossly intact, normal cognition, normal speech, no gross focal deficits. PSYCHIATRIC: alert cooperative and oriented to person, place and time. Results & Data Vital Signs (Past 12 Hours) Vital Signs Temp Pulse Pulse Resp BP Pulse Ox 06/28/19 11:49 36.6 C 82 20 143/79 H 06/28/19 11:11 78 18 94 06/28/19 09:00 73 06/28/19 07:07 36.5 C 67 18 144/80 H 93 06/28/19 06:59 18 94 06/28/19 03:00 36.4 C L 76 16 137/72 92 06/28/19 00:14 74 16 94 Medications Administered Current Inpatient Medications Acetaminophen (Tylenol) 1,000 mg PO Q8 [facility] Stop: 07/27/19 11:14 Last Admin: 06/28/19 05:32 Dose: 1,000 mg Documented by: Al Hydrox/Mg Hydrox/Simethicone (Maalox) 15 ml PO Q4H PRN PRN Reason: Dyspepsia Stop: 07/25/19 18:27 Albuterol (Ventolin Hfa) 2 puffs INH Q6H PRN PRN Reason: Shortness Of Breath Or Wheezing Stop: 07/25/19 21:15 Albuterol (Duoneb) 3 ml NEB QIDR [facility] Stop: 07/28/19 10:59 Last Admin: 06/28/19 11:10 Dose: 3 ml Documented by: Buspirone HCl (Buspar) 5 mg PO HS [facility] Stop: 07/25/19 21:15 Last Admin: 06/27/19 20:16 Dose: 5 mg Documented by: Cetirizine HCl (Zyrtec) 10 mg PO DAILY PRN PRN Reason: Allergy Symptoms Stop: 07/25/19 21:15 Diltiazem HCl (Tiazac) 120 mg PO DAILY [facility] Stop: 07/26/19 08:59 Last Admin: 06/28/19 09:49 Dose: 120 mg Documented by: Doxycycline Hyclate (Vibramycin) 100 mg PO BID [facility] Stop: 07/03/19 09:01 Last Admin: 06/28/19 09:49 Dose: 100 mg Documented by: Ergocalciferol (Vitamin D2) 50,000 units PO Edgar@0900 [facility] Stop: 07/28/19 08:59 Last Admin: 06/28/19 09:49 Dose: 50,000 units Documented by: Finasteride (Proscar) 5 mg PO DAILY [facility] Stop: 07/26/19 08:59 Last Admin: 06/28/19 09:49 Dose: 5 mg Documented by: Fluticasone/Vilanterol (Breo Ellipta 100/25 Mcg Inh) 1 puffs INH DAILY [facility]; Protocol Stop: 07/26/19 08:59 Last Admin: 06/28/19 09:50 Dose: 1 puffs Documented by: Guaifenesin (Organidin Nr) 400 mg PO BID [facility] Stop: 07/25/19 21:15 Last Admin: 06/28/19 09:49 Dose: 400 mg Documented by: Heparin Sodium (Porcine) (Heparin Sodium (Porcine)) 5,000 units SQ Q12 [facility] Stop: 07/25/19 20:59 Last Admin: 06/28/19 09:49 Dose: 5,000 units Documented by: Methylprednisolone 40 mg/ (Syringe) 0.64 mls @ 1.5 mls/min IV Q8H [facility] Stop: 07/26/19 00:00 Last Admin: 06/28/19 09:49 Dose: 1.5 mls/min Documented by: Ioversol (Optiray 320 125ml) 97 ml IV ONCE PRN PRN Reason: Interaction Checking Stop: 06/29/19 16:22 Last Admin: 06/25/19 16:24 Dose: 97 ml Documented by: Ondansetron HCl (Zofran) 4 mg IV Q6H PRN PRN Reason: Nausea Stop: 07/25/19 18:27 Pantoprazole Sodium (Protonix) 40 mg PO BID [facility] Stop: 07/25/19 22:59 Last Admin: 06/28/19 09:49 Dose: 40 mg Documented by: Sertraline HCl (Zoloft) 200 mg PO HS [facility] Stop: 07/25/19 21:15 Last Admin: 06/27/19 20:18 Dose: 200 mg Documented by: Tramadol HCl (Ultram) 50 mg PO Q8 [facility] Stop: 07/27/19 11:14 Last Admin: 06/28/19 05:31 Dose: 50 mg Documented by: Trazodone HCl (Desyrel) 150 mg PO HS [facility] Stop: 07/25/19 21:15 Last Admin: 06/27/19 20:16 Dose: 150 mg Documented by: Trazodone HCl (Desyrel) 150 mg PO HS [facility] Stop: 06/28/19 23:59 Umeclidinium [place] (Incruse Ellipta) 1 puffs INH DAILY [facility] Stop: 07/26/19 08:59 Last Admin: 06/28/19 09:50 Dose: 1 puffs Documented by: (1) Respiratory failure with hypoxia Chronicity: acute on chronic Qualified Code(s): J96.21 - Acute and chronic respiratory failure with hypoxia
[2019-06-28] MEDS: SERTRALINE HCL 100 MG TABLET PO SCH (20:12)
[2019-06-28] MEDS ORDERED: TRAZODONE HCL 100 MG TAB PO SCH (21:00)
[2019-06-29] MEDS: ACETAMINOPHEN 500 MG TAB PO SCH ×3 (05:55→22:25)
[2019-06-29] MEDS: TRAMADOL HCL 50 MG TABLET PO SCH ×3 (05:55→22:25)
[2019-06-29 05:56] LABS: Hematocrit (blood only) 35.9 % (42-52); Hemoglobin 11.6 g/dL (14.0-18.0); Mean Corpuscular Hgb Conc 32.3 g/dL (32-36); Mean Corpuscular Volume 89.8 fL (80-100); Mean Platelet Volume 9.7 fL (7.4-10.4); Platelet Count 130 K/uL (130-400); RDW Coefficient of Variation 15.5 % (11.5-14.5); RDW Standard Deviation 51.2 fL (36.4-46.3); White Blood Count 10.07 K/uL (4.8-10.8)
[2019-06-29 06:17] LABS: BUN Creatinine Ratio 19.8 (10-20); Creatinine Clr Calc Pharmacy 62.1 ml/min; Est GFR (African American) 74.1; Est GFR (Non-African American) 63.9; Potassium 4.7 mmol/L (3.5-5.1)
[2019-06-29] MEDS: ALBUT/IPRATROP 3MG/0.5MG NEB 3 ML VIAL NEB SCH ×4 (06:55→19:41)
[2019-06-29] MEDS: FLUTICASONE/VILANTEROL 100/25MCG 14 PUFFS/INHALER INH SCH (08:14)
[2019-06-29] MEDS: UMECLIDINIUM BROMIDE 62.5MCG/BLISTER 7 PUFFS/INHALER INH SCH (08:14)
[2019-06-29] MEDS: methylPREDNISolone 40 MG in SYRINGE 0 ML IV SCH (08:18)
[2019-06-29] MEDS: guaiFENesin 200 MG TAB PO SCH ×2 (08:18→21:24)
[2019-06-29] MEDS: HEPARIN SOD 5,000 UNIT/0.5 ML VIAL SQ SCH ×2 (08:19→21:23)
[2019-06-29] MEDS: DOXYCYCLINE HYCLATE 100 MG CAP PO SCH ×2 (08:19→21:24)
[2019-06-29] MEDS: FINASTERIDE 5 MG TAB PO SCH (08:19)
[2019-06-29] MEDS: dilTIAZem ER 120 MG CAPCR PO SCH (08:19)
[2019-06-29] MEDS: PANTOprazole 40 MG TAB PO SCH ×2 (08:19→21:23)
[2019-06-29] MEDS: methylPREDNISolone 4 MG TAB PO SCH (14:11)
--- NOTE | 2019-06-29 14:48 | Hospitalist Progress Note ---
Date of Service June 29, 2019 Assessment & Plan (1) COPD exacerbation: Continues to improve clinically and is moving more air now. Continue current therapy with Solu-Medrol IV every 8, doxycycline, guaifenesin twice daily, Incruse Ellipta, Breo. Change albuterol nebs to duonebs scheduled. (2) Respiratory failure with hypoxia: Chronic respiratory failure requiring 2 L/min of oxygen supplementation at home secondary to COPD. (3) HTN (hypertension): At goal, continue Cardizem per home regimen. Low-salt diet. (4) BPH (benign prostatic hyperplasia): Continue finasteride per home regimen. (5) Depression: Stable, continue sertraline 200 mg p.o. nightly, trazodone 150 mg p.o. nightly, BuSpar 5 mg p.o. nightly all per home regimen. (6) DVT prophylaxis: Heparin Full code Disposition-continue PCU monitoring [facility] Hospitalist Results & Data Vital Signs (Past 12 Hours) Vital Signs Temp Pulse Pulse Resp BP BP Pulse Ox 06/29/19 14:36 36.4 C L 85 24 132/70 91 06/29/19 11:09 36.5 C 84 22 136/76 97 06/29/19 11:05 78 19 97 06/29/19 08:00 62 06/29/19 07:36 36.4 C L 67 22 130/77 93 06/29/19 06:56 74 18 97 06/29/19 02:57 36.8 C 71 18 120/71 93 Laboratory Results Short CBC 06/29/19 Range/Units 05:21 WBC 10.07 (4.8-10.8) K/uL Hgb 11.6 L (14.0-18.0) g/dL Hct 35.9 L (42-52) % Plt Count 130 (130-400) K/uL BMP 06/29/19 05:21 Sodium 135 L Potassium 4.7 Chloride 100 Carbon Dioxide 33 H BUN 23 H Creatinine 1.16 Glucose 136 H Calcium 9.0 Medications Administered Current Inpatient Medications Acetaminophen (Tylenol) 1,000 mg PO Q8 [facility] Stop: 07/27/19 11:14 Last Admin: 06/29/19 14:10 Dose: 1,000 mg Documented by: Al Hydrox/Mg Hydrox/Simethicone (Maalox) 15 ml PO Q4H PRN PRN Reason: Dyspepsia Stop: 07/25/19 18:27 Albuterol (Ventolin Hfa) 2 puffs INH Q6H PRN PRN Reason: Shortness Of Breath Or Wheezing Stop: 07/25/19 21:15 Albuterol (Duoneb) 3 ml NEB QIDR [facility] Stop: 07/28/19 10:59 Last Admin: 06/29/19 11:05 Dose: 3 ml Documented by: Buspirone HCl (Buspar) 5 mg PO HS [facility] Stop: 07/25/19 21:15 Last Admin: 06/28/19 20:13 Dose: 5 mg Documented by: Cetirizine HCl (Zyrtec) 10 mg PO DAILY PRN PRN Reason: Allergy Symptoms Stop: 07/25/19 21:15 Diltiazem HCl (Tiazac) 120 mg PO DAILY [facility] Stop: 07/26/19 08:59 Last Admin: 06/29/19 08:19 Dose: 120 mg Documented by: Doxycycline Hyclate (Vibramycin) 100 mg PO BID [facility] Stop: 07/03/19 09:01 Last Admin: 06/29/19 08:19 Dose: 100 mg Documented by: Ergocalciferol (Vitamin D2) 50,000 units PO Edgar@0900 [facility] Stop: 07/28/19 08:59 Last Admin: 06/28/19 09:49 Dose: 50,000 units Documented by: Finasteride (Proscar) 5 mg PO DAILY [facility] Stop: 07/26/19 08:59 Last Admin: 06/29/19 08:19 Dose: 5 mg Documented by: Fluticasone/Vilanterol (Breo Ellipta 100/25 Mcg Inh) 1 puffs INH DAILY [facility]; Protocol Stop: 07/26/19 08:59 Last Admin: 06/29/19 08:14 Dose: 1 puffs Documented by: Guaifenesin (Organidin Nr) 400 mg PO BID [facility] Stop: 07/25/19 21:15 Last Admin: 06/29/19 08:18 Dose: 400 mg Documented by: Heparin Sodium (Porcine) (Heparin Sodium (Porcine)) 5,000 units SQ Q12 [facility] Stop: 07/25/19 20:59 Last Admin: 06/29/19 08:19 Dose: 5,000 units Documented by: Ioversol (Optiray 320 125ml) 97 ml IV ONCE PRN PRN Reason: Interaction Checking Stop: 06/29/19 16:22 Last Admin: 06/25/19 16:24 Dose: 97 ml Documented by: Methylprednisolone (Medrol) 40 mg PO DAILY [facility] Stop: 07/29/19 13:29 Last Admin: 06/29/19 14:11 Dose: 40 mg Documented by: Ondansetron HCl (Zofran) 4 mg IV Q6H PRN PRN Reason: Nausea Stop: 07/25/19 18:27 Pantoprazole Sodium (Protonix) 40 mg PO BID [facility] Stop: 07/25/19 22:59 Last Admin: 06/29/19 08:19 Dose: 40 mg Documented by: Sertraline HCl (Zoloft) 200 mg PO HS [facility] Stop: 07/25/19 21:15 Last Admin: 06/28/19 20:12 Dose: 200 mg Documented by: Tramadol HCl (Ultram) 50 mg PO Q8 [facility] Stop: 07/27/19 11:14 Last Admin: 06/29/19 14:10 Dose: 50 mg Documented by: Trazodone HCl (Desyrel) 150 mg PO HS [facility] Stop: 07/25/19 21:15 Last Admin: 06/27/19 20:16 Dose: 150 mg Documented by: Umeclidinium [place] (Incruse Ellipta) 1 puffs INH DAILY [facility] Stop: 07/26/19 08:59 Last Admin: 06/29/19 08:14 Dose: 1 puffs Documented by: (1) Respiratory failure with hypoxia Chronicity: acute on chronic Qualified Code(s): J96.21 - Acute and chronic respiratory failure with hypoxia
[2019-06-29] MEDS: TRAZODONE HCL 50 MG TAB PO SCH (21:22)
[2019-06-29] MEDS: SERTRALINE HCL 100 MG TABLET PO SCH (21:22)
[2019-06-30] MEDS: TRAMADOL HCL 50 MG TABLET PO SCH ×2 (05:33→14:05)
[2019-06-30] MEDS: ACETAMINOPHEN 500 MG TAB PO SCH ×2 (05:34→14:05)
[2019-06-30 05:54] LABS: Hematocrit (blood only) 35.2 % (42-52); Hemoglobin 11.3 g/dL (14.0-18.0); Mean Corpuscular Hemoglobin 28.8 pg (25-34); Mean Corpuscular Hgb Conc 32.1 g/dL (32-36); Mean Corpuscular Volume 89.6 fL (80-100); Mean Platelet Volume 10.1 fL (7.4-10.4); Platelet Count 128 K/uL (130-400); RDW Coefficient of Variation 15.5 % (11.5-14.5); RDW Standard Deviation 50.9 fL (36.4-46.3); Red Blood Count 3.93 M/uL (4.7-6.1); White Blood Count 12.17 K/uL (4.8-10.8)
[2019-06-30 06:29] LABS: BUN Creatinine Ratio 21.7 (10-20); Calcium 8.9 mg/dl (8.5-10.1); Creatinine Clr Calc Pharmacy 70.6 ml/min; Est GFR (African American) 86.5; Est GFR (Non-African American) 74.6; Potassium 4.2 mmol/L (3.5-5.1)
[2019-06-30] MEDS: ALBUT/IPRATROP 3MG/0.5MG NEB 3 ML VIAL NEB SCH ×3 (07:40→14:52)
[2019-06-30] MEDS: dilTIAZem ER 120 MG CAPCR PO SCH (08:43)
[2019-06-30] MEDS: guaiFENesin 200 MG TAB PO SCH (08:43)
[2019-06-30] MEDS: FINASTERIDE 5 MG TAB PO SCH (08:44)
[2019-06-30] MEDS: DOXYCYCLINE HYCLATE 100 MG CAP PO SCH (08:44)
[2019-06-30] MEDS: PANTOprazole 40 MG TAB PO SCH (08:44)
[2019-06-30] MEDS: methylPREDNISolone 4 MG TAB PO SCH (08:44)
[2019-06-30] MEDS: UMECLIDINIUM BROMIDE 62.5MCG/BLISTER 7 PUFFS/INHALER INH SCH (08:45)
[2019-06-30] MEDS: FLUTICASONE/VILANTEROL 100/25MCG 14 PUFFS/INHALER INH SCH (08:45)
[2019-06-30] MEDS: HEPARIN SOD 5,000 UNIT/0.5 ML VIAL SQ SCH (08:46)
--- NOTE | 2019-06-30 16:18 | Discharge Summary ---
Date of Service June 30, 2019 Admission HPI Per Admitting Provider He is a 69-year-old male with significant past medical history of COPD on home oxygen, chronic respiratory failure, hypertension, posttraumatic stress disorder and GERD has been complaining of increasing shortness of breath for the last day or 2. Apparently he was exposed to his grandson recently who has respiratory symptoms. He has been complaining more shortness of breath on minimal exertion and that is not been improved with increasing dose of oxygen to 4 L/min. He has cough with associated pain mostly in the right side of the chest with greenish and sometimes yellowish phlegm. Denies any fever and/or chills. Denies any nausea and/or vomiting. No edema and no increase in weight. He was noted to be hypoxic in the emergency room and apparent investigation including CT of the chest did not show any pulmonary embolism and/or infiltration. He received intravenous Solu-Medrol and bronchodilators and the condition improved to some extent. From that point he was admitted to telemetry unit for continuation of care. Principal Diagnosis COPD exacerbation chronic hypoxic respiratory failure on continuous oxygen supplementation Discharge Data Allergies Allergy/AdvReac Type Severity Reaction Status Date / Time bee venom protein (honey bee) Allergy Severe ANAPHYLAXIS Verified 12/03/18 13:02 pneumococcal vaccine Allergy Severe SWELLING Verified 12/03/18 13:02 [id number]-Hxm Reductase Allergy Severe CPK'S GO Verified 12/03/18 13:02 Inhibitor THROUGH ROOF amoxicillin Allergy Intermediate FACIAL Verified 12/03/18 13:02 SWELLING (EYES SWELLED SHUT) clavulanic acid Allergy Intermediate FACIAL Verified 12/03/18 13:02 SWELLING (EYES SWELLED SHUT) prednisone AdvReac Severe confusion Verified 12/03/18 13:02 and agitation Consultations 06/25/19 17:56 ED Decision to Admit Stat Ordered Studies 06/25/19 15:58 CT angio chest PE protocol Stat Hospital Course (1) COPD exacerbation: Continues to improve clinically and is moving more air now. Continue current therapy with Solu-Medrol IV every 8, doxycycline, guaifenesin twice daily, Incruse Ellipta, Breo. Change albuterol nebs to duonebs scheduled. (2) Respiratory failure with hypoxia: Chronic respiratory failure requiring 2 L/min of oxygen supplementation at home secondary to COPD. (3) HTN (hypertension): At goal, continue Cardizem per home regimen. Low-salt diet. (4) BPH (benign prostatic hyperplasia): Continue finasteride per home regimen. (5) Depression: Stable, continue sertraline 200 mg p.o. nightly, trazodone 150 mg p.o. nightly, BuSpar 5 mg p.o. nightly all per home regimen. (6) DVT prophylaxis: Heparin Full code Disposition-continue PCU monitoring DO [facility] Plan Discharge Items Patient Disposition: Home - Self-Care Reason For Visit: EXACERBATION OF COPD, CHEST PAIN Discharge Diagnosis: COPD exacerbation chronic hypoxic respiratory failure on continuous oxygen supplementation Condition on Discharge: Good Activity: Resume your previous activity Non-emergency contact: Primary Care Provider and Bass String Winder Call non-emergency contact if: you have any medication questions, your symptoms worsen, your pain is not controlled, your pain is worsening, your pain is unusual for you, your pain is concerning for you and you have a fever Follow-up/Referrals: PCP,MAXIM [Primary Care Provider] - Diet: Heart Healthy Addtl Attending Provider Instructions: Please take all medications as instructed on discharge list below. You are being given a Medrol Dosepak to continue to taper off of steroids. Please follow the instruction packaging on the label. It is recommended that you have a close follow-up with your lung doctor and primary care physician after this hospitalization to touch base and review your medications. It was a pleasure taking care of you! Please call if you have any questions or problems. You can reach a [facility] Hospitalist on duty at [facility] 24 hours a day by calling [phone]. Take care of yourself. Susana [facility] Pending Studies at Discharge: No Stand-Alone Forms: Call Back Authorization, [facility], Smoking Cessation Medications and DC Order Prescriptions: New methylprednisolone [Medrol ([place])] 4 mg tablets,dose pack See Rx Instructions .ROUTE .COMPLEX Qty: 21 RF: 0 Continued diltiazem HCl 120 mg Capsule,Extended Release 24 Hr 120 mg PO DAILY RF: 0 albuterol sulfate 2.5 mg /3 mL (0.083 %) Solution For Nebulization 2.5 mg inhalation QID PRN (Reason: Shortness Of Breath Or Wheezing) RF: 0 albuterol sulfate 90 mcg/actuation Hfa Aerosol Inhaler 2 puff INHALATION Q6H PRN (Reason: Shortness Of Breath Or Wheezing) RF: 0 finasteride 5 mg Tablet 5 mg PO DAILY RF: 0 buspirone 5 mg Tablet 5 mg PO HS RF: 0 cetirizine 10 mg Tablet 10 mg PO DAILY PRN (Reason: Allergy Symptoms) RF: 0 sertraline 100 mg Tablet 200 mg PO HS RF: 0 trazodone 150 mg Tablet 150 mg PO HS RF: 0 omeprazole 20 mg Capsule,Delayed Release(Dr/Ec) 20 mg PO BID RF: 0 Spiriva with HandiHaler 18 mcg Capsule, W/Inhalation Device 1 cap INHALATION DAILY RF: 0 guaifenesin 200 mg Tablet 400 mg PO BID RF: 0 epinephrine [EpiPen] 0.3 mg/0.3 mL Auto-Injector 0.3 mg IM DIRECTED PRN (Reason: Allergic Reaction) RF: 0 Symbicort 160-4.5 mcg/actuation Hfa Aerosol Inhaler 2 puff INHALATION BID RF: 0 cholecalciferol (vitamin D3) 50,000 unit Tablet 50,000 units PO WK RF: 0 Unknown Maintenance Antibiotic 1 dose PO 3XWK RF: 0 Discontinued doxycycline hyclate 100 mg Tablet 0 mg PO BID RF: 0 Discharge Orders: Discharge Order (Routine); Ordered 06/30/19 Ordered By: Susana Fry Admission Data Admit Date/Time: 06/25/19 18:29 Attending Provider: Susana Fry Admit Provider: Emeli Sandoval Primary Care Provider: PCP,NO Other Providers: Emeli Sandoval
== END 2019-06-30 17:11 | disposition home or self-care (01) | DRG 191 ==
LOC: ED 14:40 → 2S 18:29 → 3N 06-29 14:29

== ENCOUNTER 2019-07-01 17:25 | Inpatient (IN) ==
[2019-07-01] MEDS ORDERED: SODIUM CHLORIDE 0.9% 500 ML IV ONE (17:54)
[2019-07-01 18:16] LABS: Basophils # (auto) 0.01 K/uL (0-0.2); Basophils % (auto) 0.1 %; Hematocrit (blood only) 39.2 % (42-52); Hemoglobin 12.7 g/dL (14.0-18.0); Immature Granulocytes # (auto) 0.24 K/uL (0.00-0.02); Immature Granulocytes % (auto) 1.3 %; Lymphocytes # (auto) 0.84 K/uL (1.2-3.4); Lymphocytes % (auto) 4.7 %; Mean Corpuscular Hemoglobin 28.8 pg (25-34); Mean Corpuscular Hgb Conc 32.4 g/dL (32-36); Mean Corpuscular Volume 88.9 fL (80-100); Mean Platelet Volume 9.7 fL (7.4-10.4); Monocytes # (auto) 1.13 K/uL (0.11-0.59); Monocytes % (auto) 6.3 %; Neutrophils # (auto) 15.61 K/uL (1.4-6.5); Neutrophils % (auto) 87.6 %; Platelet Count 130 K/uL (130-400); RDW Coefficient of Variation 15.8 % (11.5-14.5); RDW Standard Deviation 51.6 fL (36.4-46.3); Red Blood Count 4.41 M/uL (4.7-6.1); White Blood Count 17.83 K/uL (4.8-10.8)
--- NOTE | 2019-07-01 18:17 | XRay Report ---
XR chest 1V portable CLINICAL HISTORY: 69 years-old Male presenting with Chest Pain. TECHNIQUE: Portable upright AP view of the chest was obtained. COMPARISON: . FINDINGS: Bilateral hilar prominence is presumably vascular. Cardiomediastinal silhouette otherwise normal. Ret iculonodular infiltrates with a basilar predominance, stable to slightly increased in prominence. Het erogeneous radiolucency of the upper lungs. No large effusion or pneumothorax. Degenerative changes o f the right glenohumeral joint. Upper abdomen normal. IMPRESSION: 1. Stable to slight increased prominence of the bibasilar reticulonodular infiltrates. Presumably th is in large part relates to underlying fibrotic change as seen on recent CTA chest from . Pot entially this may also indicate mild superimposed congestive change or less likely developing multifo alexandru infiltrates. 2. Underlying emphysema. ACT 112: Negative or not required by law. Electronically signed by: Mian Sánchez M.D. 07/01/2019 6:15 PM
[2019-07-01] MEDS ORDERED: methylPREDNISolone 125 MG/2 ML VIAL IV STA (18:30)
[2019-07-01] MEDS ORDERED: ALBUT/IPRATROP 3MG/0.5MG NEB 3 ML VIAL NEB ONE (18:30)
[2019-07-01 18:32] LABS: Blood Urea Nitrogen 26 mg/dl (7-18); Carbon Dioxide 34 mmol/L (21-32); Chloride 94 mmol/L (98-107); Est GFR (African American) 85.5; Potassium 4.6 mmol/L (3.5-5.1); Sodium 133 mmol/L (136-145)
[2019-07-01 18:33] LABS: Alanine Aminotransferase 49 U/L (12-78); Albumin Level 3.2 gm/dl (3.4-5.0); Aspartate Aminotransferase 26 U/L (15-37); Calcium 8.9 mg/dl (8.5-10.1); Creatinine Clr Calc Pharmacy 71.3 ml/min; Est GFR (Non-African American) 73.8; Glucose 130 mg/dl (70-99); Lipase 56 U/L (73-393); Magnesium 2.2 mg/dl (1.8-2.4)
[2019-07-01 18:37] LABS: Albumin Globulin Ratio 0.9 (0.9-2); Alkaline Phosphatase 65 U/L (45-117); Bilirubin,Total 0.6 mg/dl (0.2-1); Globulin 3.6 gm/dl (2.5-4.0); Phosphorus 3.6 mg/dl (2.5-4.9); Total Protein 6.8 gm/dl (6.4-8.2); Troponin I < 0.015 ng/ml (0-0.045)
[2019-07-01 19:11] LABS: Base Excess VBG 5.7 mEq/L; pH VBG 7.46 (7.36-7.41)
[2019-07-01 19:13] LABS: NT Pro B Type Natriuretic Pept 117 pg/ml (0-900)
[2019-07-01 19:41] LABS: Influenza A virus by PCR Neg for Influ A (Neg); Influenza B virus by PCR Neg for Influ B (Neg)
[2019-07-01] MEDS ORDERED: OPTIRAY 320 125ml IV PRN (20:31)
[2019-07-01] MEDS ORDERED: DOXYCYCLINE HYCLATE 100 MG in DEXTROSE 5% 100 ML IV STA (20:36)
[2019-07-01] MEDS ORDERED: cefTRIAXone SODIUM 2,000 MG/70 ML BAG IV STA (20:36)
--- NOTE | 2019-07-01 21:05 | CT Scan Report ---
CT angio chest PE protocol CLINICAL HISTORY: 69 years-old Male presenting with shortness of breath, atypical chest pain. TECHNIQUE: Multidetector CT angiography of the chest was performed after administration of intravenou s contrast. 3-D volumetric and/or maximum intensity projection (MIP) images were subsequently reconst ructed for review. IV contrast: 119 mL of Optiray 320. One or more dose lowering techniques were used consistent with the principles of ALARA (as low as reasonably achievable), including automatic expos ure control, mA or kV adjustment to individual patient size, and/or use of iterative reconstruction. COMPARISON: 06/25/2019. CT DOSE (mGy.cm): The estimated cumulative dose is 505.76 mGy.cm. FINDINGS: Radar Scientist topogram: Unremarkable. Pulmonary vasculature: The study is suboptimal for the assessment of the pulmonary vascular tree secondary to respiratory mo tion artifact. No filling defect within the pulmonary arteries to suggest embolus. Main pulmonary art diane enlarged measuring 3.8 cm in diameter. No flattening of the interventricular septum. No intracard iac filling defect. No reflux of contrast into the hepatic veins. Remaining chest: Soft tissues: Normal thyroid and thoracic inlet. Calcified right hilar lymph nodes. Atherosclerosis o f the aorta. Normal heart size. No pericardial or pleural effusion. Upper abdomen normal. Lungs and airways: No pneumothorax. Bronchial wall thickening in the lower lobes. Allowing for the ex piratory phase of respiration, central airways patent. Severe centrilobular emphysema. Pulmonary teddy adam enlarged relative to adjacent bronchi. Significant interval increase in predominantly dependent nodular consolidation in the right middle lobe. Dependent groundglass density in the posterior segmen t of the right upper lobe is similar to prior. Increased peribronchovascular consolidation in the lat eral basal right lower lobe. There is also stable to increased dependent groundglass and solid consol idation in the right lower lobe. Remaining scattered areas of presumed atelectasis and scarring in th e lung similar to prior. Respiratory motion artifact significantly degrades evaluation. Musculoskeletal: Degenerative changes of the spine. IMPRESSION: 1. Interval development of nodular consolidation dependently in the right middle lobe concerning for pneumonia. 2. No evidence of pulmonary emboli. 3. Severe emphysema. 4. Evidence of old granulomatous disease. 5. Pulmonary nodules not well assessed due to respiratory motion artifact. Please see prior exam for enumerated nodules and follow-up recommendations. 6. Pulmonary artery hypertension. ACT 112: Negative or not required by law. Electronically signed by: Mian Sánchez M.D. 07/01/2019 9:04 PM
[2019-07-01] MEDS ORDERED: KETOROLAC TROMETHAMINE 15 MG/ML VIAL IV STA (21:16)
[2019-07-01] MEDS ORDERED: ACETAMINOPHEN 1,000 MG/100 ML VIAL IV STA (21:16)
--- NOTE | 2019-07-01 22:33 | Emergency Department Note ---
Entered by Shira Kiser acting as a scribe for Hiram Main MD History of Present Illness General Chief complaint: Shortness of Breath/Dyspnea Stated complaint: SOB Time Seen by Provider: 07/01/19 17:54 Source: patient History of Present Illness Provider complaint: shortness of breath Onset (ago): day(s) 1 Location: chest Pain Consistency: + other (worsening) Maximum Pain Intensity: 3 Relieved By: + none Associated symptoms: + chest pain and + cough The patient is a 69 year old male who presents to the Emergency Room with complaints of worsening shortness of breath since yesterday. The patient states that he was discharged yesterday for COPD exacerbation. He notes that his symptoms have worsened. He reports that he wears oxygen at home and is normally on 2 liters. He reports that he was on 5 liters at home today with a pulse oxygen percent at 90. He notes that he has right sided chest pain. He states that he has been coughing up yellow mucous. He denies taking any blood thinners. Home Medications Home Medications Medication Instructions Recorded Confirmed Type Spiriva with HandiHaler 1 cap INHALATION DAILY 04/08/18 07/01/19 History buspirone 5 mg PO HS 04/08/18 07/01/19 History cetirizine 10 mg PO DAILY PRN 04/08/18 07/01/19 History omeprazole 20 mg PO BID 04/08/18 07/01/19 History sertraline 200 mg PO HS 04/08/18 07/01/19 History trazodone 150 mg PO HS 04/08/18 07/01/19 History diltiazem HCl 120 mg PO DAILY 05/22/18 07/01/19 History albuterol sulfate 2 puff INHALATION Q6H PRN 07/04/18 07/01/19 History albuterol sulfate 2.5 mg INHALATION QID PRN 07/04/18 07/01/19 History finasteride 5 mg PO DAILY 07/04/18 07/01/19 History Symbicort 2 puff INHALATION BID 08/22/18 07/01/19 History epinephrine [EpiPen] 0.3 mg IM DIRECTED PRN 08/22/18 07/01/19 History guaifenesin 400 mg PO BID 08/22/18 07/01/19 History cholecalciferol (vitamin D3) 50,000 units PO WK 09/09/18 07/01/19 History Unknown Maintenance Antibiotic 1 dose PO 3XWK 06/25/19 07/01/19 History methylprednisolone [Medrol (Wilman)] See Rx Instructions .ROUTE 06/30/19 07/01/19 Rx .COMPLEX #21 ea Allergies Allergy/AdvReac Type Severity Reaction Status Date / Time bee venom protein (honey bee) Allergy Severe ANAPHYLAXIS Verified 07/01/19 18:00 pneumococcal vaccine Allergy Severe SWELLING Verified 07/01/19 18:00 [id number] Reductase Allergy Severe CPK'S GO Verified 07/01/19 18:00 Inhibitor THROUGH ROOF amoxicillin Allergy Intermediate FACIAL Verified 07/01/19 18:00 SWELLING (EYES SWELLED SHUT) clavulanic acid Allergy Intermediate FACIAL Verified 07/01/19 18:00 SWELLING (EYES SWELLED SHUT) prednisone AdvReac Severe confusion Verified 07/01/19 18:00 and agitation Past Med/Surg History Medical History 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) Depression Emphysema/COPD GERD (gastroesophageal reflux disease) (Chronic) History of tobacco abuse (Chronic) HTN (hypertension) (Chronic) Kidney stones (Resolved) Osteoarthritis (Chronic) Pneumonia (Resolved) PTSD (post-traumatic stress disorder) PTSD (post-traumatic stress disorder) (Chronic) Thrombophlebitis arm (Resolved) Surgical History H/O hernia repair History of appendectomy (Resolved) History of extraction of renal calculus (Resolved) History of tonsillectomy (Resolved) Loss of teeth due to extraction (Chronic) S/P arthroscopic surgery of right knee Family History Mother Colon cancer Father FH: kidney cancer Other Cancer Social History Preferred Language: Divehi Communication Ability: Effective 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 and A total of 10 systems reviewed and were otherwise negative Physical Exam Vital Signs Vital Signs - 24 hr 07/01/19 17:30 07/01/19 17:34 07/01/19 17:39 Temperature 36.8 C Temperature Source Oral Pulse Rate 85 85 85 Pulse Rate [Right Finger] Pulse Rate from SpO2 Sensor 85 85 Respiratory Rate 19 18 21 Respiratory Effort / Characteristics Blood Pressure 130/63 130/63 Blood Pressure [Right Arm] Blood Pressure Mean 89 85 Blood Pressure Mean [Right Arm] Pulse Oximetry 92 80 L 90 Oxygen Delivery Method Nasal Cannula Nasal Cannula Nasal Cannula Oxygen Flow Rate 4 2 4 Sepsis Recent Fever Within 48 Hours No Sepsis New/Unexplained Change in Mental Status No Sepsis Action Taken by Nursing No Action Required Oxygen Flow Rate - Titration 5 Pulse Oximetry Post Tiitration 92 07/01/19 17:40 07/01/19 17:50 07/01/19 18:00 Temperature Temperature Source Pulse Rate 85 79 78 Pulse Rate [Right Finger] Pulse Rate from SpO2 Sensor 84 80 79 Respiratory Rate 16 21 18 Respiratory Effort / Characteristics Blood Pressure 134/82 Blood Pressure [Right Arm] Blood Pressure Mean 95 Blood Pressure Mean [Right Arm] Pulse Oximetry 91 92 93 Oxygen Delivery Method Nasal Cannula Nasal Cannula Nasal Cannula Oxygen Flow Rate 4 4 4 Sepsis Recent Fever Within 48 Hours Sepsis New/Unexplained Change in Mental Status Sepsis Action Taken by Nursing Oxygen Flow Rate - Titration Pulse Oximetry Post Tiitration 07/01/19 18:10 07/01/19 18:20 07/01/19 18:30 Temperature Temperature Source Pulse Rate 85 75 78 Pulse Rate [Right Finger] Pulse Rate from SpO2 Sensor 84 78 Respiratory Rate 26 H 23 23 Respiratory Effort / Characteristics Blood Pressure 123/83 Blood Pressure [Right Arm] Blood Pressure Mean 104 Blood Pressure Mean [Right Arm] Pulse Oximetry 92 91 Oxygen Delivery Method Nasal Cannula Nasal Cannula Nasal Cannula Oxygen Flow Rate 4 4 4 Sepsis Recent Fever Within 48 Hours Sepsis New/Unexplained Change in Mental Status Sepsis Action Taken by Nursing Oxygen Flow Rate - Titration Pulse Oximetry Post Tiitration 07/01/19 18:40 07/01/19 18:50 07/01/19 19:00 Temperature Temperature Source Pulse Rate 76 79 73 Pulse Rate [Right Finger] Pulse Rate from SpO2 Sensor 77 79 74 Respiratory Rate 21 26 H 25 H Respiratory Effort / Characteristics Blood Pressure Blood Pressure [Right Arm] Blood Pressure Mean Blood Pressure Mean [Right Arm] Pulse Oximetry 90 92 91 Oxygen Delivery Method Nasal Cannula Nasal Cannula Nasal Cannula Oxygen Flow Rate 4 4 4 Sepsis Recent Fever Within 48 Hours Sepsis New/Unexplained Change in Mental Status Sepsis Action Taken by Nursing Oxygen Flow Rate - Titration Pulse Oximetry Post Tiitration 07/01/19 19:06 07/01/19 19:10 07/01/19 19:20 Temperature Temperature Source Pulse Rate 81 73 Pulse Rate [Right Finger] 86 Pulse Rate from SpO2 Sensor 81 73 Respiratory Rate 18 19 19 Respiratory Effort / Characteristics Labored Short of Breath Blood Pressure Blood Pressure [Right Arm] Blood Pressure Mean Blood Pressure Mean [Right Arm] Pulse Oximetry 91 87 L 95 Oxygen Delivery Method Room Air Nasal Cannula Nebulizer Nebulizer Oxygen Flow Rate 5 9 9 Sepsis Recent Fever Within 48 Hours Sepsis New/Unexplained Change in Mental Status Sepsis Action Taken by Nursing Oxygen Flow Rate - Titration Pulse Oximetry Post Tiitration 07/01/19 19:30 07/01/19 19:40 07/01/19 19:50 Temperature Temperature Source Pulse Rate 73 72 72 Pulse Rate [Right Finger] Pulse Rate from SpO2 Sensor 74 73 71 Respiratory Rate 22 14 24 Respiratory Effort / Characteristics Blood Pressure 123/68 Blood Pressure [Right Arm] Blood Pressure Mean 83 Blood Pressure Mean [Right Arm] Pulse Oximetry 94 95 95 Oxygen Delivery Method Nebulizer Nebulizer Nebulizer Oxygen Flow Rate 9 9 9 Sepsis Recent Fever Within 48 Hours Sepsis New/Unexplained Change in Mental Status Sepsis Action Taken by Nursing Oxygen Flow Rate - Titration Pulse Oximetry Post Tiitration 07/01/19 19:57 07/01/19 20:00 07/01/19 20:10 Temperature Temperature Source Pulse Rate 73 72 Pulse Rate [Right Finger] 88 Pulse Rate from SpO2 Sensor 74 72 Respiratory Rate 22 19 16 Respiratory Effort / Characteristics Blood Pressure 135/79 Blood Pressure [Right Arm] 123/68 Blood Pressure Mean 100 Blood Pressure Mean [Right Arm] 86 Pulse Oximetry 90 95 95 Oxygen Delivery Method Nebulizer Nebulizer Nasal Cannula Oxygen Flow Rate 9 9 4 Sepsis Recent Fever Within 48 Hours Sepsis New/Unexplained Change in Mental Status Sepsis Action Taken by Nursing Oxygen Flow Rate - Titration Pulse Oximetry Post Tiitration 07/01/19 20:39 07/01/19 20:40 07/01/19 20:50 Temperature Temperature Source Pulse Rate 84 83 77 Pulse Rate [Right Finger] Pulse Rate from SpO2 Sensor 85 82 77 Respiratory Rate 23 21 20 Respiratory Effort / Characteristics Blood Pressure Blood Pressure [Right Arm] Blood Pressure Mean Blood Pressure Mean [Right Arm] Pulse Oximetry 90 90 92 Oxygen Delivery Method Nasal Cannula Nasal Cannula Nasal Cannula Oxygen Flow Rate 4 4 4 Sepsis Recent Fever Within 48 Hours Sepsis New/Unexplained Change in Mental Status Sepsis Action Taken by Nursing Oxygen Flow Rate - Titration Pulse Oximetry Post Tiitration 07/01/19 21:00 07/01/19 21:10 07/01/19 21:20 Temperature Temperature Source Pulse Rate 77 86 75 Pulse Rate [Right Finger] Pulse Rate from SpO2 Sensor 78 76 Respiratory Rate 25 H 22 15 Respiratory Effort / Characteristics Blood Pressure 137/65 Blood Pressure [Right Arm] Blood Pressure Mean 91 Blood Pressure Mean [Right Arm] Pulse Oximetry 92 91 Oxygen Delivery Method Nasal Cannula Nasal Cannula Nasal Cannula Oxygen Flow Rate 4 4 4 Sepsis Recent Fever Within 48 Hours Sepsis New/Unexplained Change in Mental Status Sepsis Action Taken by Nursing Oxygen Flow Rate - Titration Pulse Oximetry Post Tiitration 07/01/19 21:30 07/01/19 21:40 07/01/19 21:50 Temperature Temperature Source Pulse Rate 71 79 71 Pulse Rate [Right Finger] Pulse Rate from SpO2 Sensor 70 80 70 Respiratory Rate 19 22 19 Respiratory Effort / Characteristics Blood Pressure Blood Pressure [Right Arm] Blood Pressure Mean Blood Pressure Mean [Right Arm] Pulse Oximetry 92 90 91 Oxygen Delivery Method Nasal Cannula Nasal Cannula Nasal Cannula Oxygen Flow Rate 4 4 4 Sepsis Recent Fever Within 48 Hours Sepsis New/Unexplained Change in Mental Status Sepsis Action Taken by Nursing Oxygen Flow Rate - Titration Pulse Oximetry Post Tiitration 07/01/19 22:00 07/01/19 22:01 07/01/19 22:10 Temperature Temperature Source Pulse Rate 72 70 74 Pulse Rate [Right Finger] Pulse Rate from SpO2 Sensor 72 74 73 Respiratory Rate 15 16 17 Respiratory Effort / Characteristics Blood Pressure 147/60 H Blood Pressure [Right Arm] Blood Pressure Mean 87 Blood Pressure Mean [Right Arm] Pulse Oximetry 91 92 92 Oxygen Delivery Method Nasal Cannula Nasal Cannula Nasal Cannula Oxygen Flow Rate 4 4 4 Sepsis Recent Fever Within 48 Hours Sepsis New/Unexplained Change in Mental Status Sepsis Action Taken by Nursing Oxygen Flow Rate - Titration Pulse Oximetry Post Tiitration 07/01/19 22:20 07/01/19 22:26 Temperature Temperature Source Pulse Rate 75 Pulse Rate [Right Finger] Pulse Rate from SpO2 Sensor 75 Respiratory Rate 22 Respiratory Effort / Characteristics Blood Pressure Blood Pressure [Right Arm] Blood Pressure Mean Blood Pressure Mean [Right Arm] Pulse Oximetry 93 Oxygen Delivery Method Nasal Cannula Nasal Cannula Oxygen Flow Rate 4 4 Sepsis Recent Fever Within 48 Hours Sepsis New/Unexplained Change in Mental Status Sepsis Action Taken by Nursing Oxygen Flow Rate - Titration Pulse Oximetry Post Tiitration GENERAL: Awake, alert, chronically ill-appearing, in no distress HENT: Normocephalic, atraumatic. Oropharynx with dry mucous membranes and otherwise unremarkable. EYES: Normal conjunctiva. Sclera non-icteric. NECK: Supple. No nuchal rigidity. FROM. No JVD. RESPIRATORY: Diffuse wheezes CARDIAC: Regular rate, normal rhythm. Extremities warm and well perfused. Pulses equal. ABDOMEN: Soft, non-distended. No tenderness to palpation. No rebound or guarding. No masses. RECTAL: Deferred. MUSCULOSKELETAL: Chest examination reveals no tenderness. The back is symmetrical on inspection without obvious abnormality. There is no CVA tenderness to palpation. No joint edema. LOWER EXTREMITIES: Calves are equal size bilaterally and non-tender. No edema. No discoloration. NEURO: Normal sensorium. No sensory or motor deficits noted. SKIN: No rash or jaundice noted. Course Course 1825: The patient was evaluated in room C4, and a complete history and physical examination were performed. Upon reevaluation, the patient appeared to have improvement of his symptoms. I discussed today's findings with him. He verbalized agreement of the treatment plan. He was discharged home. Administered Medications Doxycycline Hyclate 100 mg/ (Dextrose) 110 mls @ 50 mls/hr IV NOW STA Stop: 07/01/19 22:47 Last Admin: 07/01/19 21:08 Dose: 50 mls/hr Documented by: [id number] Ioversol (Optiray 320 125ml) 119 ml IV ONCE PRN PRN Reason: Interaction Checking Stop: 07/05/19 20:30 Last Admin: 07/01/19 20:31 Dose: 119 ml Documented by: [id number] Discontinued Medications Albuterol (Duoneb) 12 ml NEB ONE ONE Stop: 07/01/19 18:31 Last Admin: 07/01/19 19:04 Dose: 12 ml Documented by: [id number] Sodium Chloride (Nss) 500 mls @ 999 mls/hr IV .Q31M ONE Stop: 07/01/19 18:24 Last Infusion: 07/01/19 18:58 Dose: 0 mls/hr Documented by: [id number] Admin: 07/01/19 18:25 Dose: 999 mls/hr Documented by: [id number] Ceftriaxone Sodium (Rocephin) 2,000 mg in 70 mls @ 140 mls/hr IV NOW STA Stop: 07/01/19 21:05 Last Infusion: 07/01/19 21:31 Dose: 0 mls/hr Documented by: [id number] Admin: 07/01/19 20:52 Dose: 140 mls/hr Documented by: [id number] Acetaminophen (Ofirmev) 1,000 mg in 100 mls @ 400 mls/hr IV NOW STA Stop: 07/01/19 21:30 Last Infusion: 07/01/19 21:40 Dose: 0 mls/hr Documented by: [id number] Admin: 07/01/19 21:25 Dose: 400 mls/hr Documented by: [id number] Ketorolac Tromethamine (Toradol) 15 mg IV NOW STA Stop: 07/01/19 21:17 Last Admin: 07/01/19 21:25 Dose: 15 mg Documented by: [id number] Methylprednisolone (Solumedrol) 125 mg IV NOW STA Stop: 07/01/19 18:31 Last Admin: 07/01/19 19:17 Dose: 125 mg Documented by: [id number] Medical Decision Making Differential Diagnosis Differential diagnosis: Etiologies such as infections, reactive airway disease, pneumonia, pneumothorax, COPD, CHF, cardiac ischemia, pulmonary embolism, musculoskeletal, gastrointestinal, as well as others were entertained. Medical Records Attestation: I reviewed the patient's medical records. Home Medications Current Medication List: was personally reviewed by me Laboratory Data Attestation: I reviewed the patient's lab results. Result diagrams: 07/01/19 18:05 07/01/19 18:05 Lab Results 07/01/19 07/01/19 07/01/19 Range/Units 18:05 18:05 18:46 WBC 17.83 H (4.8-10.8) K/uL RBC 4.41 L (4.7-6.1) M/uL Hgb 12.7 L (14.0-18.0) g/dL Hct 39.2 L (42-52) % MCV 88.9 (80-100) fL MCH 28.8 (25-34) pg MCHC 32.4 (32-36) g/dL RDW Std Deviation 51.6 H (36.4-46.3) fL RDW Coeff of Ren 15.8 H (11.5-14.5) % Plt Count 130 (130-400) K/uL MPV 9.7 (7.4-10.4) fL Immature Gran % (Auto) 1.3 % Neut % (Auto) 87.6 % Lymph % (Auto) 4.7 % Karnes % (Auto) 6.3 % Eos % (Auto) 0.0 % Baso % (Auto) 0.1 % Immature Gran # (Auto) 0.24 H (0.00-0.02) K/uL Neut # (Auto) 15.61 H (1.4-6.5) K/uL Lymph # (Auto) 0.84 L (1.2-3.4) K/uL Karnes # (Auto) 1.13 H (0.11-0.59) K/uL Eos # (Auto) 0.00 (0-0.5) K/uL Baso # (Auto) 0.01 (0-0.2) K/uL VBG pH (7.36-7.41) VBG pCO2 (38-50) mmHg VBG pO2 mmHg VBG HCO3 mmol/L VBG O2 Saturation % VBG Base Excess mEq/L Barometric Pressure mm/Hg Sodium 133 L (136-145) mmol/L Potassium 4.6 (3.5-5.1) mmol/L Chloride 94 L (98-107) mmol/L Carbon Dioxide 34 H (21-32) mmol/L Anion Gap 4.0 (3-11) BUN 26 H (7-18) mg/dl Creatinine 1.03 (0.6-1.4) mg/dl Est Cr Clr Drug Dosing 71.3 ml/min Est GFR ( Amer) 85.5 Est GFR (Non-Af Amer) 73.8 BUN/Creatinine Ratio 25.0 H (10-20) Glucose 130 H (70-99) mg/dl Lactate 1.0 (0.4-2.0) mmol/L Calcium 8.9 (8.5-10.1) mg/dl Phosphorus 3.6 (2.5-4.9) mg/dl Magnesium 2.2 (1.8-2.4) mg/dl Total Bilirubin 0.6 (0.2-1) mg/dl AST 26 (15-37) U/L ALT 49 (12-78) U/L Alkaline Phosphatase 65 (45-117) U/L Troponin I < 0.015 (0-0.045) ng/ml NT-Pro-B Natriuret Pep 117 (0-900) pg/ml Total Protein 6.8 (6.4-8.2) gm/dl Albumin 3.2 L (3.4-5.0) gm/dl Globulin 3.6 (2.5-4.0) gm/dl Albumin/Globulin Ratio 0.9 (0.9-2) Lipase 56 L (73-393) U/L Influenza Type A (PCR) (Neg) Influenza Type B (PCR) (Neg) 07/01/19 07/01/19 Range/Units 18:46 18:55 WBC (4.8-10.8) K/uL RBC (4.7-6.1) M/uL Hgb (14.0-18.0) g/dL Hct (42-52) % MCV (80-100) fL MCH (25-34) pg MCHC (32-36) g/dL RDW Std Deviation (36.4-46.3) fL RDW Coeff of Ren (11.5-14.5) % Plt Count (130-400) K/uL MPV (7.4-10.4) fL Immature Gran % (Auto) % Neut % (Auto) % Lymph % (Auto) % Karnes % (Auto) % Eos % (Auto) % Baso % (Auto) % Immature Gran # (Auto) (0.00-0.02) K/uL Neut # (Auto) (1.4-6.5) K/uL Lymph # (Auto) (1.2-3.4) K/uL Karnes # (Auto) (0.11-0.59) K/uL Eos # (Auto) (0-0.5) K/uL Baso # (Auto) (0-0.2) K/uL VBG pH 7.46 H (7.36-7.41) VBG pCO2 44 (38-50) mmHg VBG pO2 51 mmHg VBG HCO3 30 mmol/L VBG O2 Saturation 86.0 % VBG Base Excess 5.7 mEq/L Barometric Pressure 738.6 mm/Hg Sodium (136-145) mmol/L Potassium (3.5-5.1) mmol/L Chloride (98-107) mmol/L Carbon Dioxide (21-32) mmol/L Anion Gap (3-11) BUN (7-18) mg/dl Creatinine (0.6-1.4) mg/dl Est Cr Clr Drug Dosing ml/min Est GFR ( Amer) Est GFR (Non-Af Amer) BUN/Creatinine Ratio (10-20) Glucose (70-99) mg/dl Lactate (0.4-2.0) mmol/L Calcium (8.5-10.1) mg/dl Phosphorus (2.5-4.9) mg/dl Magnesium (1.8-2.4) mg/dl Total Bilirubin (0.2-1) mg/dl AST (15-37) U/L ALT (12-78) U/L Alkaline Phosphatase (45-117) U/L Troponin I (0-0.045) ng/ml NT-Pro-B Natriuret Pep (0-900) pg/ml Total Protein (6.4-8.2) gm/dl Albumin (3.4-5.0) gm/dl Globulin (2.5-4.0) gm/dl Albumin/Globulin Ratio (0.9-2) Lipase (73-393) U/L Influenza Type A (PCR) Neg for Influ A (Neg) Influenza Type B (PCR) Neg for Influ B (Neg) Imaging Data Radiologist's Impression: Radiology results as stated below per my review and the radiologist's interpretation: XR chest 1V portable CLINICAL HISTORY: 69 years-old Male presenting with Chest Pain. TECHNIQUE: Portable upright AP view of the chest was obtained. COMPARISON: . FINDINGS: Bilateral hilar prominence is presumably vascular. Cardiomediastinal silhouette otherwise normal. Reticulonodular infiltrates with a basilar predominance, stable to slightly increased in prominence. Heterogeneous radiolucency of the upper lungs. No large effusion or pneumothorax. Degenerative changes of the right glenohumeral joint. Upper abdomen normal. IMPRESSION: 1. Stable to slight increased prominence of the bibasilar reticulonodular infiltrates. Presumably this in large part relates to underlying fibrotic change as seen on recent CTA chest from . Potentially this may also indicate mild superimposed congestive change or less likely developing multifocal infiltrates. 2. Underlying emphysema. ACT 112: Negative or not required by law. Electronically signed by: Mian Sánchez M.D. 07/01/2019 6:[address] angio chest PE protocol CLINICAL HISTORY: 69 years-old Male presenting with shortness of breath, atypical chest pain. TECHNIQUE: Multidetector CT angiography of the chest was performed after administration of intravenous contrast. 3-D volumetric and/or maximum intensity projection (MIP) images were subsequently reconstructed for review. IV contrast: 119 mL of Optiray 320. One or more dose lowering techniques were used consistent with the principles of ALARA (as low as reasonably achievable), including automatic exposure control, mA or kV adjustment to individual patient size, and/or use of iterative reconstruction. COMPARISON: 06/25/2019. CT DOSE (mGy.cm): The estimated cumulative dose is 505.76 mGy.cm. FINDINGS: Superintendent Local topogram: Unremarkable. Pulmonary vasculature: The study is suboptimal for the assessment of the pulmonary vascular tree secondary to respiratory motion artifact. No filling defect within the pulmonary arteries to suggest embolus. Main pulmonary artery enlarged measuring 3.8 cm in diameter. No flattening of the interventricular septum. No intracardiac filling defect. No reflux of contrast into the hepatic veins. Remaining chest: Soft tissues: Normal thyroid and thoracic inlet. Calcified right hilar lymph nodes. Atherosclerosis of the aorta. Normal heart size. No pericardial or pleural effusion. Upper abdomen normal. Lungs and airways: No pneumothorax. Bronchial wall thickening in the lower lobes. Allowing for the expiratory phase of respiration, central airways patent. Severe centrilobular emphysema. Pulmonary arteries enlarged relative to adjacent bronchi. Significant interval increase in predominantly dependent nodular consolidation in the right middle lobe. Dependent groundglass density in the posterior segment of the right upper lobe is similar to prior. Increased peribronchovascular consolidation in the lateral basal right lower lobe. There is also stable to increased dependent groundglass and solid consolidation in the right lower lobe. Remaining scattered areas of presumed atelectasis and scarring in the lung similar to prior. Respiratory motion artifact significantly degrades evaluation. Musculoskeletal: Degenerative changes of the spine. IMPRESSION: 1. Interval development of nodular consolidation dependently in the right middle lobe concerning for pneumonia. 2. No evidence of pulmonary emboli. 3. Severe emphysema. 4. Evidence of old granulomatous disease. 5. Pulmonary nodules not well assessed due to respiratory motion artifact. Please see prior exam for enumerated nodules and follow-up recommendations. 6. Pulmonary artery hypertension. ACT 112: Negative or not required by law. Electronically signed by: Mian Sánchez M.D. 07/01/2019 9:04 PM ECG Data Attestation: I personally reviewed and interpreted this ECG as follows: Indication: + SOB/dyspnea Rate (beats per minute): 93 Rhythm: + sinus tachycardia ECG Intervals/blocks: + Normal QRS (64) and + Normal QT-c (437) ECG ST segments: no ST depression and no ST elevation ECG Findings: + PVCs Blood Pressure Blood Pressure Findings: Elevated blood pressure Blood Pressure Disposition: did not require urgent referral MDM Narrative The patient is a pleasant 69-year-old gentleman with a past medical history of COPD on 2 L home O2, HTN, GERD who presents emergency department with worsening cough congestion shortness of breath in setting of being discharged yesterday after an admission for a COPD flare discharged on steroids and doxycycline per HPI. On arrival the patient is chronically ill-appearing but no acute distress, afebrile stable vital signs. On exam the patient has diffuse wheezes. EKG without overt acute ischemia. Chest x-ray with question of increased density of previously viewed infiltrate. WBC 17.8, with neutrophil predominance and left shift however nonspecific and possibly related to the patient's course of steroids on his recent admission versus possible worsening infection. H/H 12.7/39.2 similar to prior range of values. Platelets within normal limits. Chemistry without acidosis. Electrolytes and LFTs unremarkable. Lactate 1.0. Troponin negative/undetectable. BNP within normal limits. Flu was negative. CTA of the chest was performed and negative for PE. There was interval development of a nodular consolidation in the right middle lobe that is suspicious for pneumonia. Given the patient does not appear toxic with normal lactate treatment initiated with ceftriaxone and doxycycline. Patient did show some improvement after his initial treatment with IV fluid hydration, Solu- Medrol and continuous DuoNeb. However he did easily desaturate with exertion despite being on 100% oxygen during his nebulizer. He is agreeable with plan for admission. Case was discussed with Dr. Neumann, [facility] hospitalist, who evaluate the patient for admission. Impression & Plan Pneumonia, COPD exacerbation, Leukocytosis, Oxygen dependent Discharge Plan Visit Data Chief Complaint: Shortness of Breath/Dyspnea Stated Complaint: SOB ED Provider: Hiram Main Discharge Problem: Pneumonia, COPD exacerbation, Leukocytosis, Oxygen dependent Patient Disposition: Admitted As Inpatient Discharge Instructions Interventions: ED Discharge Assessment Last Done: 07/01/19 22:26 Forms Stand Alone Forms: My [employer] Prescriptions Prescriptions: No Action diltiazem HCl 120 mg Capsule,Extended Release 24 Hr 120 mg PO DAILY RF: 0 albuterol sulfate 2.5 mg /3 mL (0.083 %) Solution For Nebulization 2.5 mg inhalation QID PRN (Reason: Shortness Of Breath Or Wheezing) RF: 0 albuterol sulfate 90 mcg/actuation Hfa Aerosol Inhaler 2 puff INHALATION Q6H PRN (Reason: Shortness Of Breath Or Wheezing) RF: 0 finasteride 5 mg Tablet 5 mg PO DAILY RF: 0 buspirone 5 mg Tablet 5 mg PO HS RF: 0 cetirizine 10 mg Tablet 10 mg PO DAILY PRN (Reason: Allergy Symptoms) RF: 0 sertraline 100 mg Tablet 200 mg PO HS RF: 0 trazodone 150 mg Tablet 150 mg PO HS RF: 0 omeprazole 20 mg Capsule,Delayed Release(Dr/Ec) 20 mg PO BID RF: 0 Spiriva with HandiHaler 18 mcg Capsule, W/Inhalation Device 1 cap INHALATION DAILY RF: 0 guaifenesin 200 mg Tablet 400 mg PO BID RF: 0 epinephrine [EpiPen] 0.3 mg/0.3 mL Auto-Injector 0.3 mg IM DIRECTED PRN (Reason: Allergic Reaction) RF: 0 Symbicort 160-4.5 mcg/actuation Hfa Aerosol Inhaler 2 puff INHALATION BID RF: 0 cholecalciferol (vitamin D3) 50,000 unit Tablet 50,000 units PO WK RF: 0 Unknown Maintenance Antibiotic 1 dose PO 3XWK RF: 0 methylprednisolone [Medrol ([place])] 4 mg tablets,dose pack See Rx Instructions .ROUTE .COMPLEX Qty: 21 RF: 0 Referrals Referrals: PCP,NO [Primary Care Provider] - Discharge Problem: Pneumonia Qualifiers: Pneumonia type: due to unspecified organism Laterality: right Lung location: middle lobe of lung Qualified Code(s): J18.9 - Pneumonia, unspecified organism Leukocytosis Qualifiers: Leukocytosis type: unspecified Qualified Code(s): D72.829 - Elevated white b lood cell count, unspecified The scribe's documentation has been prepared under my direction and personally reviewed by me in its entirety. I confirm that the note above accurately reflects all work, treatment, procedures, and medical decision making performed by me.
[2019-07-01] MEDS ORDERED: EPINEPHRINE ADULT AUTO-INJECT 0.3 MG SYR IM PRN (22:49)
[2019-07-01] MEDS ORDERED: CETIRIZINE HCL 10 MG TABLET PO PRN (22:49)
[2019-07-01] MEDS ORDERED: LEVALBUTEROL 1.25MG/0.5ML NEB INH PRN (22:49)
[2019-07-01] MEDS ORDERED: XOPENEX/ATROVENT 1.25mg/0.5MG NEB COMBO NEB PRN (22:49)
[2019-07-01] MEDS ORDERED: IPRATROPIUM BROMIDE NEB SOLN 0.02% 2.5 ML VIAL INH PRN (22:49)
[2019-07-01] MEDS ORDERED: POLYETHYLENE (MIRALAX) 17 GM PACK PO PRN (22:49)
[2019-07-01] MEDS ORDERED: ONDANSETRON INJ 2 MG/ML 2 ML VIAL IV PRN (22:49)
[2019-07-01] MEDS ORDERED: ACETAMINOPHEN 325 MG TAB PO PRN (22:49)
--- NOTE | 2019-07-01 23:08 | History and Physical Report ---
DATE OF ADMISSION: 07/01/2019 CHIEF COMPLAINT: Shortness of breath. HISTORY OF PRESENT ILLNESS: This 69-year-old male with past medical history significant for COPD on home oxygen 2 liters, chronic respiratory failure, hypertension, posttraumatic stress disorder, GERD, who was recently in the hospital for COPD exacerbation and discharged yesterday, comes back with again shortness of breath. The patient states after going home, he suddenly started to feel short of breath. He is still coughing, bringing up yellowish phlegm. Denies any fever, chills. He has some right-sided chest pain at one spot on the lateral side of the right anterior chest. He thinks it is from the cough and his pain is more when taking deep breath. Denies any nausea, vomiting. Appetite is good. Denies any dysphagia or odynophagia. Denies any cough while eating. No headache, no blurred vision. Somewhat hard of hearing. He has some runny nose for the last 1 week. No abdominal pain. Normal bowel and bladder movements. No hematuria or hematochezia or melena. No swelling in the legs, ambulates okay. Currently, he is saturating 92%. ALLERGIES: BEE VENOM, PNEUMOCOCCAL VACCINE, STATIN, AMOXICILLIN, CLAVULANIC ACID, PREDNISONE. PAST MEDICAL HISTORY: As mentioned above. PAST SURGICAL HISTORY: Significant for appendectomy, tonsillectomy, renal endoscopy, cystoscopy and stent placement. MEDICATIONS: The patient is discharged on Medrol Dosepak, diltiazem 120 mg p.o. daily, albuterol inhalation q.i.d. p.r.n., albuterol 2 puffs inhalation q. 6 hours p.r.n., finasteride 5 mg p.o. daily, buspirone 5 mg p.o. at bedtime, cetirizine 10 mg p.o. daily p.r.n., Zoloft 200 mg p.o. at bedtime, trazodone 150 mg p.o. at bedtime, omeprazole 20 mg p.o. b.i.d., Spiriva 18 mcg 1 capsule inhalation daily, guaifenesin 400 mg p.o. b.i.d., epinephrine as directed, Symbicort 160/4.5 mcg 2 puffs inhalation b.i.d., vitamin D 50,000 units p.o. weekly. FAMILY HISTORY: No family history on file. SOCIAL HISTORY: . Former smoker, quit 42 years ago. No alcohol use. REVIEW OF SYMPTOMS: As per HPI. Rest of review of systems negative. PHYSICAL EXAMINATION: GENERAL: The patient is alert and oriented, not in acute distress. VITAL SIGNS: Temperature 36.8, pulse 71, respiratory rate 19, blood pressure 137/65, oxygen 92% on 4 liters. HEENT: No pallor, no icterus. Pupils equal, round, reactive to light. NECK: No JVD, no neck masses, no carotid bruits. CARDIOVASCULAR: S1, S2 heard, regular rate and rhythm, no murmur, no gallop. RESPIRATORY SYSTEM: Normal AP diameter. No accessory muscle use. Mild bibasilar expiratory wheezing heard, no crackles. ABDOMEN: Soft, bowel sounds present, nontender. No distention. CENTRAL NERVOUS SYSTEM: Cranial nerves II-XII grossly intact. Nonfocal. EXTREMITIES: No edema, no erythema. LABORATORY DATA: WBC 17.8, hemoglobin 11.8, hematocrit 39.2, platelets 130. Venous blood gas pH of 7.46, pCO2 of 44, pO2 51, bicarbonate 30. Sodium 133, potassium 4.6, chloride 94, bicarbonate 34, BUN 26, creatinine 1.03, serum glucose 130. Lactate 1. Calcium 8.9, phosphorus 3.6, magnesium 2.2, total bilirubin 0.6, AST 26, ALT 49, alkaline phosphatase 65. Troponin I less than 0.015. BNP 117. Lipase 56. Influenza A and B, PCR negative. IMAGING: Chest x-ray, stable to slight increased prominence of bibasilar infiltrates. Presumably this enlarged part relates to underlying fibrotic change as seen on the recent CT of the chest. Potential risks also indicate mild superimposed congestive changes or less likely developing multifocal infiltrates, underlying emphysema. CT of the chest, interval development of nodular consolidation dependency in the right middle lobe concerning for pneumonia. No evidence of pulmonary embolism or severe emphysema, evidence of old granulomatous disease, pulmonary nodules due to respiratory motion artifact. EKG: Shows accelerated junctional rhythm with occasional PVCs at a rate of 93, nonspecific ST abnormality. ASSESSMENT AND PLAN: This is a 69-year-old male who presents with shortness of breath. 1. Shortness of breath. The patient was recently in the hospital for chronic obstructive pulmonary disease exacerbation, discharged yesterday. Today's CAT scan showing right middle lobe infiltrate pneumonia. He received Rocephin and doxycycline in the ER which we will continue for now. THE PATIENT IS ALLERGIC TO AUGMENTIN WITH FACIAL SWELLING. We will watch for any allergic reaction to Rocephin, seems to tolerate okay in the ER. We will place him on IV Solu-Medrol 40 mg t.i.d., nebs around the clock and p.r.n. Continue Symbicort and Spiriva. Closely monitor on tele floor. 2. Chronic obstructive pulmonary disease exacerbation secondary to above. Management as above. 3. Chest pain at one spot on the right side more with cough. EKG shows junctional rhythm. We will follow repeat EKG, follow serial troponins and monitor in the med/surg tele. 4. Hypertension. Continue Cardizem. Monitor the blood pressure. 5. Acute on chronic respiratory failure secondary to above, on home oxygen 2 liters. Continue to monitor. 7. Depression. Continue Zoloft, trazodone, BuSpar. 8. Deep venous thrombosis prophylaxis, Lovenox. DISPOSITION: Admit to med/surg tele. Level 1 full code. PT and OT prior to discharge. Social Service to help with discharge planning. ELOISA
[2019-07-01] MEDS: SERTRALINE HCL 100 MG TABLET PO SCH (23:56)
[2019-07-01] MEDS: TRAZODONE HCL 50 MG TAB PO SCH (23:57)
[2019-07-01] MEDS: PANTOprazole 40 MG TAB PO SCH (23:58)
[2019-07-02] MEDS: IPRATROPIUM BROMIDE NEB SOLN 0.02% 2.5 ML VIAL INH SCH ×4 (00:23→19:51)
[2019-07-02] MEDS: LEVALBUTEROL 1.25MG/0.5ML NEB INH SCH ×4 (00:23→19:50)
[2019-07-02] MEDS ORDERED: XOPENEX/ATROVENT 1.25mg/0.5MG NEB COMBO NEB SCH (01:00)
[2019-07-02 05:46] LABS: Basophils # (auto) 0.01 K/uL (0-0.2); Basophils % (auto) 0.1 %; Hematocrit (blood only) 36.4 % (42-52); Hemoglobin 11.8 g/dL (14.0-18.0); Immature Granulocytes # (auto) 0.14 K/uL (0.00-0.02); Immature Granulocytes % (auto) 1.1 %; Lymphocytes # (auto) 0.75 K/uL (1.2-3.4); Lymphocytes % (auto) 5.9 %; Mean Corpuscular Hemoglobin 28.9 pg (25-34); Mean Corpuscular Hgb Conc 32.4 g/dL (32-36); Mean Platelet Volume 10.2 fL (7.4-10.4); Monocytes # (auto) 0.55 K/uL (0.11-0.59); Monocytes % (auto) 4.3 %; Neutrophils # (auto) 11.29 K/uL (1.4-6.5); Neutrophils % (auto) 88.6 %; Platelet Count 138 K/uL (130-400); RDW Standard Deviation 51.9 fL (36.4-46.3); Red Blood Count 4.09 M/uL (4.7-6.1); White Blood Count 12.74 K/uL (4.8-10.8)
[2019-07-02 06:21] LABS: BUN Creatinine Ratio 23.7 (10-20); Blood Urea Nitrogen 27 mg/dl (7-18); Calcium 8.8 mg/dl (8.5-10.1); Carbon Dioxide 34 mmol/L (21-32); Chloride 97 mmol/L (98-107); Creatinine Clr Calc Pharmacy 62.6 ml/min; Est GFR (African American) 74.8; Est GFR (Non-African American) 64.6; Glucose 174 mg/dl (70-99); Magnesium 2.6 mg/dl (1.8-2.4); Potassium 4.5 mmol/L (3.5-5.1); Sodium 135 mmol/L (136-145)
[2019-07-02 06:26] LABS: Troponin I < 0.015 ng/ml (0-0.045)
[2019-07-02] MEDS: dilTIAZem ER 120 MG CAPCR PO SCH (08:26)
[2019-07-02] MEDS: DOXYCYCLINE HYCLATE 100 MG CAP PO SCH ×2 (08:26→21:00)
[2019-07-02] MEDS: PANTOprazole 40 MG TAB PO SCH ×2 (08:27→20:59)
[2019-07-02] MEDS: methylPREDNISolone 40 MG in SYRINGE 0 ML IV SCH ×3 (08:28→21:01)
[2019-07-02] MEDS: FINASTERIDE 5 MG TAB PO SCH (08:28)
[2019-07-02] MEDS: guaiFENesin 200 MG TAB PO SCH ×2 (08:28→21:01)
[2019-07-02] MEDS: ENOXAPARIN INJ 40 MG/0.4 ML SYR SQ SCH (08:28)
[2019-07-02] MEDS: FLUTICASONE/VILANTEROL 100/25MCG 14 PUFFS/INHALER INH SCH (08:30)
[2019-07-02] MEDS: UMECLIDINIUM BROMIDE 62.5MCG/BLISTER 7 PUFFS/INHALER INH SCH (08:31)
[2019-07-02] MEDS ORDERED: cefTRIAXone SODIUM 1,000 MG in DEXTROSE 5% 50 ML IV SCH (09:00)
--- NOTE | 2019-07-02 13:54 | Hospitalist Progress Note ---
Date of Service July 02, 2019 Assessment & Plan (1) Pneumonia: Recent discharge from the hospital on of this month following an attack of acute bronchitis and COPD exacerbation Has been back with increasing shortness of breath on exertion and desaturation Noted to have right middle lobe infiltration on CAT scan of the chest Has been on intravenous ceftriaxone and oral doxycycline twice daily Clinically better today We will continue current medications Present on Admission?: Yes (2) COPD exacerbation: Has severe emphysema Has been getting intravenous Solu-Medrol and nebulized bronchodilators as before Will change to oral prednisone on improvement (3) Respiratory failure with hypoxia: Has been on home oxygen Requiring more oxygen than before (4) Oxygen dependent: As above (5) HTN (hypertension): Blood pressure is upper side of normal Continue current medications (6) PTSD (post-traumatic stress disorder): Continue suppressive medic (7) Depression: No acute delirium DVT prophylaxis Subcu Lovenox CODE STATUS Full Subjective 07/02/2019 The patient was seen and examined in medical for He was admitted with the desaturation with minimal exertion and shortness of breath and noted to have right middle lobe infiltration He has severe COPD Has been feeling a little bit better since admission Review of Systems Review of Systems: All systems reviewed and are unremarkable except as noted below Respiratory: + cough, + dyspnea and + dyspnea on exertion Physical Exam Physical Exam: Lying in bed with minimal distress due to shortness of breath Constitutional: well developed, well nourished and + obese Eyes: PERRL, conjunctivae normal, anicteric sclerae ENMT: external ear and nose normal, oropharynx normal Neck: trachea midline, no thyromegaly Respiratory: + respiratory distress (Minimal respiratory distress) Auscultation: + diminished lung sounds and + wheezes (Minimal wheezing); no crackles Cardiovascular: Rate/Rhythm: regular rate and regular rhythm Heart Sounds: no murmur Gastrointestinal (Abdomen): Inspection/Auscultation: abdomen normal to inspection and normal bowel sounds Musculoskeletal: No acute arthritis in any joints Neurologic: Alert, awake and oriented x3 Lymphatic: no cervical or axillary lymphadenopathy Results & Data Vital Signs (Past 12 Hours) Vital Signs Temp Pulse Pulse Resp BP Pulse Ox 07/02/19 13:17 83 17 93 07/02/19 11:16 36.6 C 72 20 163/84 H 93 07/02/19 07:53 36.4 C L 60 20 132/82 95 07/02/19 07:12 62 07/02/19 06:49 63 18 97 07/02/19 04:00 36.8 C 63 18 123/80 96 Laboratory Results Short CBC 07/01/19 07/02/19 Range/Units 18:05 05:17 WBC 17.83 H 12.74 H (4.8-10.8) K/uL Hgb 12.7 L 11.8 L (14.0-18.0) g/dL Hct 39.2 L 36.4 L (42-52) % Plt Count 130 138 (130-400) K/uL BMP 07/01/19 07/02/19 18:05 05:17 Sodium 133 L 135 L Potassium 4.6 4.5 Chloride 94 L 97 L Carbon Dioxide 34 H 34 H BUN 26 H 27 H Creatinine 1.03 1.15 Glucose 130 H 174 H Calcium 8.9 8.8 Cardiac Enzymes 07/01/19 07/01/19 07/02/19 Range/Units 18:05 22:54 05:17 Troponin I < 0.015 < 0.015 < 0.015 (0-0.045) ng/ml 07/02/19 Range/Units 11:00 Troponin I < 0.015 (0-0.045) ng/ml Liver Function 07/01/19 Range/Units 18:05 Total Bilirubin 0.6 (0.2-1) mg/dl AST 26 (15-37) U/L ALT 49 (12-78) U/L Alkaline Phosphatase 65 (45-117) U/L Albumin 3.2 L (3.4-5.0) gm/dl Medications Administered Current Inpatient Medications Acetaminophen (Tylenol) 650 mg PO Q4H PRN PRN Reason: Pain or Fever Stop: 07/31/19 22:48 Buspirone HCl (Buspar) 5 mg PO HS [facility] Stop: 08/01/19 20:59 Last Admin: 07/01/19 23:56 Dose: 5 mg Documented by: Cetirizine HCl (Zyrtec) 10 mg PO DAILY PRN PRN Reason: Allergy Symptoms Stop: 07/31/19 22:48 Diltiazem HCl (Tiazac) 120 mg PO DAILY [facility] Stop: 08/01/19 08:59 Last Admin: 07/02/19 08:26 Dose: 120 mg Documented by: Doxycycline Hyclate (Vibramycin) 100 mg PO BID [facility] Stop: 07/09/19 08:59 Last Admin: 07/02/19 08:26 Dose: 100 mg Documented by: Enoxaparin Sodium (Lovenox) 40 mg SQ Q24H [facility] Stop: 08/01/19 08:59 Last Admin: 07/02/19 08:28 Dose: 40 mg Documented by: Epinephrine HCl (Epipen) 0.3 mg IM UD PRN PRN Reason: Allergic Reaction Stop: 07/31/19 22:48 Finasteride (Proscar) 5 mg PO DAILY [facility] Stop: 08/01/19 08:59 Last Admin: 07/02/19 08:28 Dose: 5 mg Documented by: Fluticasone/Vilanterol (Breo Ellipta 100/25 Mcg Inh) 1 puffs INH DAILY [facility] Stop: 08/01/19 08:59 Last Admin: 07/02/19 08:30 Dose: 1 puffs Documented by: Guaifenesin (Organidin Nr) 400 mg PO BID [facility] Stop: 08/01/19 08:59 Last Admin: 07/02/19 08:28 Dose: 400 mg Documented by: Ceftriaxone Sodium 2,000 mg/ (Dextrose) 70 mls @ 140 mls/hr IV Q24H [facility] Stop: 07/07/19 21:29 Methylprednisolone 40 mg/ (Syringe) 0.64 mls @ 1.5 mls/min IV TID [facility] Stop: 08/01/19 08:59 Last Admin: 07/02/19 08:28 Dose: 1.5 mls/min Documented by: Ipratropium [place] (Atrovent 0.02% 0.5mg/2.5ml) 0.5 mg INH Q6R [facility] Stop: 08/01/19 00:59 Last Admin: 07/02/19 13:17 Dose: 0.5 mg Documented by: Ipratropium [place] (Atrovent 0.02% 0.5mg/2.5ml) 0.5 mg INH Q2H PRN PRN Reason: Shortness Of Breath Or Wheezing Stop: 07/31/19 22:48 Levalbuterol HCl (Xopenex 1.25mg/0.5ml Neb) 1.25 mg INH Q6R [facility] Stop: 08/01/19 00:59 Last Admin: 07/02/19 13:17 Dose: 1.25 mg Documented by: Levalbuterol HCl (Xopenex 1.25mg/0.5ml Neb) 1.25 mg INH Q2H PRN PRN Reason: Shortness Of Breath Or Wheezing Stop: 07/31/19 22:48 Ondansetron HCl (Zofran) 4 mg IV Q6H PRN PRN Reason: Nausea Stop: 07/31/19 22:48 Pantoprazole Sodium (Protonix) 40 mg PO BID [facility] Stop: 08/01/19 08:59 Last Admin: 07/02/19 08:27 Dose: 40 mg Documented by: Polyethylene Glycol (Miralax Powder Packet) 17 gm PO DAILY PRN PRN Reason: Constipation Stop: 07/31/19 22:48 Sertraline HCl (Zoloft) 200 mg PO HS [facility] Stop: 08/01/19 20:59 Last Admin: 07/01/19 23:56 Dose: 200 mg Documented by: Trazodone HCl (Desyrel) 150 mg PO HS [facility] Stop: 08/01/19 20:59 Last Admin: 07/01/19 23:57 Dose: 150 mg Documented by: Umeclidinium [place] (Incruse Ellipta) 1 puffs INH DAILY [facility] Stop: 08/01/19 08:59 Last Admin: 07/02/19 08:31 Dose: 1 puffs Documented by: (1) Pneumonia Laterality: right Lung location: middle lobe of lung Pneumonia type: due to unspecified organism Qualified Code(s): J18.9 - Pneumonia, unspecified organism (2) Respiratory failure with hypoxia Chronicity: acute on chronic Qualified Code(s): J96.21 - Acute and chronic respiratory failure with hypoxia
[2019-07-02] MEDS: TRAZODONE HCL 50 MG TAB PO SCH (20:59)
[2019-07-02] MEDS: SERTRALINE HCL 100 MG TABLET PO SCH (21:00)
[2019-07-02] MEDS: cefTRIAXone SODIUM 2,000 MG in DEXTROSE 5% 50 ML IV SCH (21:04)
--- NOTE | 2019-07-02 22:16 | Electrocardiogram Report ---
Test Reason : Blood Pressure : / mmHG Vent. Rate : 093 BPM Atrial Rate : 092 BPM P-R Int : 184 ms QRS Dur : 064 ms QT Int : 352 ms P-R-T Axes : 000 -38 060 degrees QTc Int : 437 ms Poor data quality, interpretation may be adversely affected Normal sinus rhythm Left axis deviation Nonspecific ST abnormality Abnormal ECG When compared with ECG of 25-JUN-2019 14:46, No significant change Confirmed by Will Walls ([id number]) on 07/02/2019 10:16:23 PM Referred By: REFERRED SELF Confirmed By:Will Walls
[2019-07-03] MEDS: IPRATROPIUM BROMIDE NEB SOLN 0.02% 2.5 ML VIAL INH SCH ×4 (01:07→19:34)
[2019-07-03] MEDS: LEVALBUTEROL 1.25MG/0.5ML NEB INH SCH ×4 (01:07→19:34)
[2019-07-03 05:55] LABS: Basophils # (auto) 0.01 K/uL (0-0.2); Basophils % (auto) 0.1 %; Hematocrit (blood only) 34.8 % (42-52); Hemoglobin 11.3 g/dL (14.0-18.0); Immature Granulocytes # (auto) 0.14 K/uL (0.00-0.02); Lymphocytes # (auto) 0.82 K/uL (1.2-3.4); Mean Corpuscular Hemoglobin 28.8 pg (25-34); Mean Corpuscular Hgb Conc 32.5 g/dL (32-36); Mean Corpuscular Volume 88.8 fL (80-100); Mean Platelet Volume 9.9 fL (7.4-10.4); Monocytes # (auto) 1.01 K/uL (0.11-0.59); Monocytes % (auto) 7.4 %; Neutrophils # (auto) 11.69 K/uL (1.4-6.5); Neutrophils % (auto) 85.5 %; Platelet Count 148 K/uL (130-400); RDW Coefficient of Variation 16.1 % (11.5-14.5); RDW Standard Deviation 51.1 fL (36.4-46.3); Red Blood Count 3.92 M/uL (4.7-6.1); White Blood Count 13.67 K/uL (4.8-10.8)
[2019-07-03 06:12] LABS: BUN Creatinine Ratio 22.7 (10-20); Calcium 8.9 mg/dl (8.5-10.1); Creatinine Clr Calc Pharmacy 67.9 ml/min; Est GFR (African American) 82.6; Est GFR (Non-African American) 71.3; Potassium 4.3 mmol/L (3.5-5.1)
[2019-07-03] MEDS: ENOXAPARIN INJ 40 MG/0.4 ML SYR SQ SCH (08:24)
[2019-07-03] MEDS: DOXYCYCLINE HYCLATE 100 MG CAP PO SCH ×2 (08:25→20:36)
[2019-07-03] MEDS: guaiFENesin 200 MG TAB PO SCH ×2 (08:25→20:37)
[2019-07-03] MEDS: FINASTERIDE 5 MG TAB PO SCH (08:25)
[2019-07-03] MEDS: PANTOprazole 40 MG TAB PO SCH ×2 (08:25→20:36)
[2019-07-03] MEDS: dilTIAZem ER 120 MG CAPCR PO SCH (08:25)
[2019-07-03] MEDS: methylPREDNISolone 40 MG in SYRINGE 0 ML IV SCH ×3 (08:25→20:34)
[2019-07-03] MEDS: FLUTICASONE/VILANTEROL 100/25MCG 14 PUFFS/INHALER INH SCH (08:26)
[2019-07-03] MEDS: UMECLIDINIUM BROMIDE 62.5MCG/BLISTER 7 PUFFS/INHALER INH SCH (08:26)
--- NOTE | 2019-07-03 16:25 | Hospitalist Progress Note ---
Date of Service July 03, 2019 Assessment & Plan (1) Pneumonia: Recent discharge from the hospital on of this month following an attack of acute bronchitis and COPD exacerbation Has been back with increasing shortness of breath on exertion and desaturation Noted to have right middle lobe infiltration on CAT scan of the chest Has been on intravenous ceftriaxone and oral doxycycline twice daily Clinically better today We will continue current medications Much better today Advised to increase ambulation PT and OT evaluation (2) COPD exacerbation: Has severe emphysema Has been getting intravenous Solu-Medrol and nebulized bronchodilators as before Will change to oral prednisone on improvement Decrease intravenous dose of steroid (3) Respiratory failure with hypoxia: Has been on home oxygen Requiring more oxygen than before (4) Oxygen dependent: As above (5) HTN (hypertension): Blood pressure is upper side of normal Continue current medications (6) PTSD (post-traumatic stress disorder): Continue suppressive medic (7) Depression: No acute delirium DVT prophylaxis Subcu Lovenox CODE STATUS Full Subjective 07/02/2019 The patient was seen and examined in medical for He was admitted with the desaturation with minimal exertion and shortness of breath and noted to have right middle lobe infiltration He has severe COPD Has been feeling a little bit better since admission 07/03/19 Patient was seen and examined in medical floor He has been feeling little better Still has shortness of breath at rest but cough is decreased Denies any fever and/or chills Review of Systems Review of Systems: All systems reviewed and are unremarkable except as noted below Respiratory: + cough, + dyspnea and + dyspnea on exertion Physical Exam Physical Exam: Lying in bed comfortably Constitutional: well developed, well nourished and + obese Eyes: PERRL, conjunctivae normal, anicteric sclerae ENMT: external ear and nose normal, oropharynx normal Neck: trachea midline, no thyromegaly Respiratory: + respiratory distress (Very minimal) Auscultation: + diminished lung sounds and + wheezes (Minimal wheezing); no crackles Cardiovascular: Rate/Rhythm: regular rate and regular rhythm Heart Sounds: no murmur Gastrointestinal (Abdomen): Inspection/Auscultation: abdomen normal to inspection and normal bowel sounds Musculoskeletal: No acute arthritis in any joints Lymphatic: no cervical or axillary lymphadenopathy Results & Data Vital Signs (Past 12 Hours) Vital Signs Temp Pulse Pulse Resp BP BP Pulse Ox 07/03/19 15:24 36.6 C 80 18 153/81 H 90 07/03/19 13:34 81 18 94 07/03/19 11:42 36.6 C 77 20 150/91 H 92 07/03/19 07:34 36.9 C 73 16 146/84 H 97 07/03/19 07:30 68 07/03/19 06:50 74 16 96 Laboratory Results Short CBC 07/03/19 Range/Units 05:27 WBC 13.67 H (4.8-10.8) K/uL Hgb 11.3 L (14.0-18.0) g/dL Hct 34.8 L (42-52) % Plt Count 148 (130-400) K/uL BMP 07/03/19 05:27 Sodium 135 L Potassium 4.3 Chloride 98 Carbon Dioxide 33 H BUN 24 H Creatinine 1.06 Glucose 146 H Calcium 8.9 Medications Administered Current Inpatient Medications Acetaminophen (Tylenol) 650 mg PO Q4H PRN PRN Reason: Pain or Fever Stop: 07/31/19 22:48 Buspirone HCl (Buspar) 5 mg PO HS [facility] Stop: 08/01/19 20:59 Last Admin: 07/02/19 21:01 Dose: 5 mg Documented by: Cetirizine HCl (Zyrtec) 10 mg PO DAILY PRN PRN Reason: Allergy Symptoms Stop: 07/31/19 22:48 Diltiazem HCl (Tiazac) 120 mg PO DAILY [facility] Stop: 08/01/19 08:59 Last Admin: 07/03/19 08:25 Dose: 120 mg Documented by: Doxycycline Hyclate (Vibramycin) 100 mg PO BID [facility] Stop: 07/09/19 08:59 Last Admin: 07/03/19 08:25 Dose: 100 mg Documented by: Enoxaparin Sodium (Lovenox) 40 mg SQ Q24H [facility] Stop: 08/01/19 08:59 Last Admin: 07/03/19 08:24 Dose: 40 mg Documented by: Epinephrine HCl (Epipen) 0.3 mg IM UD PRN PRN Reason: Allergic Reaction Stop: 07/31/19 22:48 Finasteride (Proscar) 5 mg PO DAILY [facility] Stop: 08/01/19 08:59 Last Admin: 07/03/19 08:25 Dose: 5 mg Documented by: Fluticasone/Vilanterol (Breo Ellipta 100/25 Mcg Inh) 1 puffs INH DAILY [facility] Stop: 08/01/19 08:59 Last Admin: 07/03/19 08:26 Dose: 1 puffs Documented by: Guaifenesin (Organidin Nr) 400 mg PO BID [facility] Stop: 08/01/19 08:59 Last Admin: 07/03/19 08:25 Dose: 400 mg Documented by: Ceftriaxone Sodium 2,000 mg/ (Dextrose) 70 mls @ 140 mls/hr IV Q24H [facility] Stop: 07/07/19 21:29 Last Infusion: 07/02/19 21:37 Dose: Infused Documented by: Methylprednisolone 40 mg/ (Syringe) 0.64 mls @ 1.5 mls/min IV TID [facility] Stop: 08/01/19 08:59 Last Admin: 07/03/19 14:38 Dose: 1.5 mls/min Documented by: Ipratropium [place] (Atrovent 0.02% 0.5mg/2.5ml) 0.5 mg INH Q6R [facility] Stop: 08/01/19 00:59 Last Admin: 07/03/19 13:33 Dose: 0.5 mg Documented by: Ipratropium [place] (Atrovent 0.02% 0.5mg/2.5ml) 0.5 mg INH Q2H PRN PRN Reason: Shortness Of Breath Or Wheezing Stop: 07/31/19 22:48 Levalbuterol HCl (Xopenex 1.25mg/0.5ml Neb) 1.25 mg INH Q6R [facility] Stop: 08/01/19 00:59 Last Admin: 07/03/19 13:33 Dose: 1.25 mg Documented by: Levalbuterol HCl (Xopenex 1.25mg/0.5ml Neb) 1.25 mg INH Q2H PRN PRN Reason: Shortness Of Breath Or Wheezing Stop: 07/31/19 22:48 Ondansetron HCl (Zofran) 4 mg IV Q6H PRN PRN Reason: Nausea Stop: 07/31/19 22:48 Pantoprazole Sodium (Protonix) 40 mg PO BID [facility] Stop: 08/01/19 08:59 Last Admin: 07/03/19 08:25 Dose: 40 mg Documented by: Polyethylene Glycol (Miralax Powder Packet) 17 gm PO DAILY PRN PRN Reason: Constipation Stop: 07/31/19 22:48 Sertraline HCl (Zoloft) 200 mg PO HS [facility] Stop: 08/01/19 20:59 Last Admin: 07/02/19 21:00 Dose: 200 mg Documented by: Trazodone HCl (Desyrel) 150 mg PO HS [facility] Stop: 08/01/19 20:59 Last Admin: 07/02/19 20:59 Dose: 150 mg Documented by: Umeclidinium [place] (Incruse Ellipta) 1 puffs INH DAILY [facility] Stop: 08/01/19 08:59 Last Admin: 07/03/19 08:26 Dose: 1 puffs Documented by: (1) Pneumonia Laterality: right Lung location: middle lobe of lung Pneumonia type: due to unspecified organism Qualified Code(s): J18.9 - Pneumonia, unspecified organism (2) Respiratory failure with hypoxia Chronicity: acute on chronic Qualified Code(s): J96.21 - Acute and chronic respiratory failure with hypoxia
[2019-07-03] MEDS: cefTRIAXone SODIUM 2,000 MG in DEXTROSE 5% 50 ML IV SCH (20:34)
[2019-07-03] MEDS: SERTRALINE HCL 100 MG TABLET PO SCH (20:35)
[2019-07-03] MEDS: TRAZODONE HCL 50 MG TAB PO SCH (20:37)
[2019-07-04] MEDS: IPRATROPIUM BROMIDE NEB SOLN 0.02% 2.5 ML VIAL INH SCH ×4 (01:31→19:51)
[2019-07-04] MEDS: LEVALBUTEROL 1.25MG/0.5ML NEB INH SCH ×4 (01:31→19:51)
[2019-07-04] MEDS: PANTOprazole 40 MG TAB PO SCH ×2 (07:50→20:26)
[2019-07-04] MEDS: UMECLIDINIUM BROMIDE 62.5MCG/BLISTER 7 PUFFS/INHALER INH SCH (07:50)
[2019-07-04] MEDS: FINASTERIDE 5 MG TAB PO SCH (07:50)
[2019-07-04] MEDS: FLUTICASONE/VILANTEROL 100/25MCG 14 PUFFS/INHALER INH SCH (07:50)
[2019-07-04] MEDS: ENOXAPARIN INJ 40 MG/0.4 ML SYR SQ SCH (07:51)
[2019-07-04] MEDS: dilTIAZem ER 120 MG CAPCR PO SCH (07:51)
[2019-07-04] MEDS: guaiFENesin 200 MG TAB PO SCH ×2 (07:51→20:26)
[2019-07-04] MEDS: DOXYCYCLINE HYCLATE 100 MG CAP PO SCH ×2 (07:51→20:25)
[2019-07-04] MEDS: methylPREDNISolone 40 MG in SYRINGE 0 ML IV SCH ×2 (08:41→20:26)
[2019-07-04] MEDS: NYSTATIN SUSP 500,000 U/5 ML UDC PO SCH ×3 (12:23→20:26)
--- NOTE | 2019-07-04 13:31 | Hospitalist Progress Note ---
Date of Service July 04, 2019 Assessment & Plan (1) Pneumonia: Recent discharge from the hospital on of this month following an attack of acute bronchitis and COPD exacerbation Has been back with increasing shortness of breath on exertion and desaturation Noted to have right middle lobe infiltration on CAT scan of the chest Has been on intravenous ceftriaxone and oral doxycycline twice daily Clinically better today We will continue current medications Much better today Advised to increase ambulation PT and OT evaluation Clinically a lot better and will continue current medications (2) COPD exacerbation: Has severe emphysema Has been getting intravenous Solu-Medrol and nebulized bronchodilators as before Will change to oral prednisone on improvement Decrease intravenous dose of steroid We will change steroids to oral prednisone from tomorrow (3) Respiratory failure with hypoxia: Has been on home oxygen Requiring more oxygen than before (4) Oxygen dependent: As above (5) HTN (hypertension): Blood pressure is upper side of normal Continue current medications Blood pressure remains upper side of normal Will increase diltiazem to twice a day (6) PTSD (post-traumatic stress disorder): Continue suppressive medic (7) Depression: No acute delirium DVT prophylaxis Subcu Lovenox CODE STATUS Full Subjective 07/02/2019 The patient was seen and examined in medical for He was admitted with the desaturation with minimal exertion and shortness of breath and noted to have right middle lobe infiltration He has severe COPD Has been feeling a little bit better since admission 07/03/19 Patient was seen and examined in medical floor He has been feeling little better Still has shortness of breath at rest but cough is decreased Denies any fever and/or chills 07/04/2019 The patient was seen and examined in medical telemetry unit He remains stable and complains of less cough and/or shortness of breath He has been out of bed without any symptoms He complains to have oral thrush Review of Systems Review of Systems: All systems reviewed and are unremarkable except as noted below Respiratory: + cough, + dyspnea and + dyspnea on exertion Physical Exam Physical Exam: Lying in bed comfortably Constitutional: well developed, well nourished and + obese Eyes: PERRL, conjunctivae normal, anicteric sclerae ENMT: external ear and nose normal, oropharynx normal Neck: trachea midline, no thyromegaly Respiratory: normal respiratory effort; no respiratory distress Auscultation: + diminished lung sounds and + wheezes (Minimal wheezing); no crackles Cardiovascular: Rate/Rhythm: regular rate and regular rhythm Heart Sounds: no murmur Gastrointestinal (Abdomen): Inspection/Auscultation: abdomen normal to inspection and normal bowel sounds Musculoskeletal: No acute arthritis involving any joints Lymphatic: no cervical or axillary lymphadenopathy Results & Data Vital Signs (Past 12 Hours) Vital Signs Temp Pulse Pulse Resp BP BP Pulse Ox 07/04/19 13:14 96 H 18 93 07/04/19 12:01 36.6 C 84 18 156/91 H 90 07/04/19 09:18 36.5 C 07/04/19 07:36 35.6 C L 78 16 188/80 H 97 07/04/19 07:33 79 07/04/19 07:05 94 H 16 91 07/04/19 05:11 36.5 C 75 18 128/80 92 07/04/19 01:32 73 16 93 Medications Administered Current Inpatient Medications Acetaminophen (Tylenol) 650 mg PO Q4H PRN PRN Reason: Pain or Fever Stop: 07/31/19 22:48 Buspirone HCl (Buspar) 5 mg PO HS [facility] Stop: 08/01/19 20:59 Last Admin: 07/03/19 20:37 Dose: 5 mg Documented by: Cetirizine HCl (Zyrtec) 10 mg PO DAILY PRN PRN Reason: Allergy Symptoms Stop: 07/31/19 22:48 Diltiazem HCl (Tiazac) 120 mg PO DAILY [facility] Stop: 08/01/19 08:59 Last Admin: 07/04/19 07:51 Dose: 120 mg Documented by: Doxycycline Hyclate (Vibramycin) 100 mg PO BID [facility] Stop: 07/09/19 08:59 Last Admin: 07/04/19 07:51 Dose: 100 mg Documented by: Enoxaparin Sodium (Lovenox) 40 mg SQ Q24H [facility] Stop: 08/01/19 08:59 Last Admin: 07/04/19 07:51 Dose: 40 mg Documented by: Epinephrine HCl (Epipen) 0.3 mg IM UD PRN PRN Reason: Allergic Reaction Stop: 07/31/19 22:48 Finasteride (Proscar) 5 mg PO DAILY [facility] Stop: 08/01/19 08:59 Last Admin: 07/04/19 07:50 Dose: 5 mg Documented by: Fluticasone/Vilanterol (Breo Ellipta 100/25 Mcg Inh) 1 puffs INH DAILY [facility] Stop: 08/01/19 08:59 Last Admin: 07/04/19 07:50 Dose: 1 puffs Documented by: Guaifenesin (Organidin Nr) 400 mg PO BID [facility] Stop: 08/01/19 08:59 Last Admin: 07/04/19 07:51 Dose: 400 mg Documented by: Ceftriaxone Sodium 2,000 mg/ (Dextrose) 70 mls @ 140 mls/hr IV Q24H [facility] Stop: 07/07/19 21:29 Last Infusion: 07/03/19 21:28 Dose: Infused Documented by: Methylprednisolone 40 mg/ (Syringe) 0.64 mls @ 1.5 mls/min IV TID [facility] Stop: 08/01/19 08:59 Last Admin: 07/04/19 08:41 Dose: 1.5 mls/min Documented by: Ipratropium [place] (Atrovent 0.02% 0.5mg/2.5ml) 0.5 mg INH Q6R [facility] Stop: 08/01/19 00:59 Last Admin: 07/04/19 13:14 Dose: 0.5 mg Documented by: Ipratropium [place] (Atrovent 0.02% 0.5mg/2.5ml) 0.5 mg INH Q2H PRN PRN Reason: Shortness Of Breath Or Wheezing Stop: 07/31/19 22:48 Levalbuterol HCl (Xopenex 1.25mg/0.5ml Neb) 1.25 mg INH Q6R [facility] Stop: 08/01/19 00:59 Last Admin: 07/04/19 13:14 Dose: 1.25 mg Documented by: Levalbuterol HCl (Xopenex 1.25mg/0.5ml Neb) 1.25 mg INH Q2H PRN PRN Reason: Shortness Of Breath Or Wheezing Stop: 07/31/19 22:48 Nystatin (Mycostatin) 5 ml PO QID [facility] Stop: 08/03/19 12:59 Last Admin: 07/04/19 12:23 Dose: 5 ml Documented by: Ondansetron HCl (Zofran) 4 mg IV Q6H PRN PRN Reason: Nausea Stop: 07/31/19 22:48 Pantoprazole Sodium (Protonix) 40 mg PO BID [facility] Stop: 08/01/19 08:59 Last Admin: 07/04/19 07:50 Dose: 40 mg Documented by: Polyethylene Glycol (Miralax Powder Packet) 17 gm PO DAILY PRN PRN Reason: Constipation Stop: 07/31/19 22:48 Sertraline HCl (Zoloft) 200 mg PO HS [facility] Stop: 08/01/19 20:59 Last Admin: 07/03/19 20:35 Dose: 200 mg Documented by: Trazodone HCl (Desyrel) 150 mg PO HS [facility] Stop: 08/01/19 20:59 Last Admin: 07/03/19 20:37 Dose: 150 mg Documented by: Umeclidinium [place] (Incruse Ellipta) 1 puffs INH DAILY [facility] Stop: 08/01/19 08:59 Last Admin: 07/04/19 07:50 Dose: 1 puffs Documented by: (1) Pneumonia Laterality: right Lung location: middle lobe of lung Pneumonia type: due to unspecified organism Qualified Code(s): J18.9 - Pneumonia, unspecified organism (2) Respiratory failure with hypoxia Chronicity: acute on chronic Qualified Code(s): J96.21 - Acute and chronic respiratory failure with hypoxia
[2019-07-04] MEDS ORDERED: dilTIAZem HCL 120 MG CAPCR PO ONE (13:36)
[2019-07-04] MEDS: cefTRIAXone SODIUM 2,000 MG in DEXTROSE 5% 50 ML IV SCH (20:25)
[2019-07-04] MEDS: SERTRALINE HCL 100 MG TABLET PO SCH (20:26)
[2019-07-04] MEDS: TRAZODONE HCL 50 MG TAB PO SCH (20:26)
[2019-07-05] MEDS: IPRATROPIUM BROMIDE NEB SOLN 0.02% 2.5 ML VIAL INH SCH ×4 (01:45→19:41)
[2019-07-05] MEDS: LEVALBUTEROL 1.25MG/0.5ML NEB INH SCH ×4 (01:45→19:41)
[2019-07-05] MEDS: FLUTICASONE/VILANTEROL 100/25MCG 14 PUFFS/INHALER INH SCH (08:46)
[2019-07-05] MEDS: UMECLIDINIUM BROMIDE 62.5MCG/BLISTER 7 PUFFS/INHALER INH SCH (08:46)
[2019-07-05] MEDS: PANTOprazole 40 MG TAB PO SCH ×2 (08:47→20:59)
[2019-07-05] MEDS: DOXYCYCLINE HYCLATE 100 MG CAP PO SCH ×2 (08:47→20:59)
[2019-07-05] MEDS: guaiFENesin 200 MG TAB PO SCH ×2 (08:47→20:59)
[2019-07-05] MEDS: ENOXAPARIN INJ 40 MG/0.4 ML SYR SQ SCH (08:47)
[2019-07-05] MEDS: dilTIAZem ER 120 MG CAPCR PO SCH (08:47)
[2019-07-05] MEDS: FINASTERIDE 5 MG TAB PO SCH (08:47)
[2019-07-05] MEDS: methylPREDNISolone 40 MG in SYRINGE 0 ML IV SCH ×2 (08:47→21:00)
[2019-07-05] MEDS: NYSTATIN SUSP 500,000 U/5 ML UDC PO SCH ×4 (08:47→20:59)
[2019-07-05] MEDS ORDERED: predniSONE 20 MG TAB PO SCH (09:00)
--- NOTE | 2019-07-05 11:59 | Hospitalist Progress Note ---
Date of Service July 05, 2019 Assessment & Plan (1) Pneumonia: Recent discharge from the hospital on of this month following an attack of acute bronchitis and COPD exacerbation Has been back with increasing shortness of breath on exertion and desaturation Noted to have right middle lobe infiltration on CAT scan of the chest Has been on intravenous ceftriaxone and oral doxycycline twice daily Much better today Advised to increase ambulation PT and OT evaluation Clinically a lot better and will continue current medications CXR PA and lateral view tomorrow We will continue current antibiotics (2) COPD exacerbation: Has severe emphysema Has been getting intravenous Solu-Medrol and nebulized bronchodilators as before Will change to oral prednisone on improvement Decrease intravenous dose of steroid Will go home on oral Medrol dose pack (3) Respiratory failure with hypoxia: Has been on home oxygen Requiring more oxygen than before (4) Oxygen dependent: As above (5) HTN (hypertension): Blood pressure is upper side of normal Continue current medications Blood pressure remains upper side of normal Will increase diltiazem to twice a day Blood pressure seems to be controlled with increasing dose of diltiazem (6) PTSD (post-traumatic stress disorder): Continue suppressive medic (7) Depression: No acute delirium DVT prophylaxis Subcu Lovenox CODE STATUS Full Subjective 07/02/2019 The patient was seen and examined in medical for He was admitted with the desaturation with minimal exertion and shortness of breath and noted to have right middle lobe infiltration He has severe COPD Has been feeling a little bit better since admission 07/03/19 Patient was seen and examined in medical floor He has been feeling little better Still has shortness of breath at rest but cough is decreased Denies any fever and/or chills 07/04/2019 The patient was seen and examined in medical telemetry unit He remains stable and complains of less cough and/or shortness of breath He has been out of bed without any symptoms He complains to have oral thrush 07/05/2019 Patient was seen and examined in medical floor He has been feeling a lot better and denies any cough and/or shortness of breath at rest Was advised to have more ambulation Like to be discharged tomorrow Review of Systems Review of Systems: All systems reviewed and are unremarkable except as noted below Respiratory: + cough, + dyspnea and + dyspnea on exertion Physical Exam Physical Exam: Lying in bed without any acute distress Constitutional: well developed, well nourished and + obese Eyes: PERRL, conjunctivae normal, anicteric sclerae ENMT: external ear and nose normal, oropharynx normal Neck: trachea midline, no thyromegaly Respiratory: normal respiratory effort; no respiratory distress Auscultation: + diminished lung sounds and + wheezes (Minimal wheezing); no crackles Cardiovascular: Rate/Rhythm: regular rate and regular rhythm Heart Sounds: no murmur Gastrointestinal (Abdomen): Inspection/Auscultation: abdomen normal to inspection and normal bowel sounds Musculoskeletal: No acute pain in any of the joints Neurologic: Alert, awake and oriented x3 Lymphatic: no cervical or axillary lymphadenopathy Results & Data Vital Signs (Past 12 Hours) Vital Signs Temp Pulse Pulse Resp BP BP Pulse Ox 07/05/19 11:33 36.5 C 82 16 147/79 H 90 07/05/19 07:49 87 17 95 07/05/19 07:06 36.3 C L 69 18 146/84 H 94 07/05/19 07:03 78 07/05/19 02:44 36.3 C L 89 23 118/78 94 07/05/19 01:47 89 16 93 07/05/19 00:16 78 Medications Administered Current Inpatient Medications Acetaminophen (Tylenol) 650 mg PO Q4H PRN PRN Reason: Pain or Fever Stop: 07/31/19 22:48 Last Admin: 07/04/19 19:31 Dose: 650 mg Documented by: Buspirone HCl (Buspar) 5 mg PO HS [facility] Stop: 08/01/19 20:59 Last Admin: 07/04/19 20:26 Dose: 5 mg Documented by: Cetirizine HCl (Zyrtec) 10 mg PO DAILY PRN PRN Reason: Allergy Symptoms Stop: 07/31/19 22:48 Diltiazem HCl (Tiazac) 240 mg PO DAILY [facility] Stop: 08/04/19 08:59 Last Admin: 07/05/19 08:47 Dose: 240 mg Documented by: Doxycycline Hyclate (Vibramycin) 100 mg PO BID [facility] Stop: 07/09/19 08:59 Last Admin: 07/05/19 08:47 Dose: 100 mg Documented by: Enoxaparin Sodium (Lovenox) 40 mg SQ Q24H [facility] Stop: 08/01/19 08:59 Last Admin: 01/26/20 08:47 Dose: 40 mg Documented by: Epinephrine HCl (Epipen) 0.3 mg IM UD PRN PRN Reason: Allergic Reaction Stop: 07/31/19 22:48 Finasteride (Proscar) 5 mg PO DAILY [facility] Stop: 08/01/19 08:59 Last Admin: 07/05/19 08:47 Dose: 5 mg Documented by: Fluticasone/Vilanterol (Breo Ellipta 100/25 Mcg Inh) 1 puffs INH DAILY [facility] Stop: 08/01/19 08:59 Last Admin: 07/05/19 08:46 Dose: 1 puffs Documented by: Guaifenesin (Organidin Nr) 400 mg PO BID [facility] Stop: 08/01/19 08:59 Last Admin: 07/05/19 08:47 Dose: 400 mg Documented by: Ceftriaxone Sodium 2,000 mg/ (Dextrose) 70 mls @ 140 mls/hr IV Q24H [facility] Stop: 07/07/19 21:29 Last Infusion: 07/04/19 21:00 Dose: Infused Documented by: Methylprednisolone 40 mg/ (Syringe) 0.64 mls @ 1.5 mls/min IV BID [facility] Stop: 08/03/19 20:59 Last Admin: 07/05/19 08:47 Dose: 1.5 mls/min Documented by: Ipratropium [place] (Atrovent 0.02% 0.5mg/2.5ml) 0.5 mg INH Q6R [facility] Stop: 08/01/19 00:59 Last Admin: 07/05/19 07:48 Dose: 0.5 mg Documented by: Ipratropium [place] (Atrovent 0.02% 0.5mg/2.5ml) 0.5 mg INH Q2H PRN PRN Reason: Shortness Of Breath Or Wheezing Stop: 07/31/19 22:48 Levalbuterol HCl (Xopenex 1.25mg/0.5ml Neb) 1.25 mg INH Q6R [facility] Stop: 08/01/19 00:59 Last Admin: 07/05/19 07:48 Dose: 1.25 mg Documented by: Levalbuterol HCl (Xopenex 1.25mg/0.5ml Neb) 1.25 mg INH Q2H PRN PRN Reason: Shortness Of Breath Or Wheezing Stop: 07/31/19 22:48 Nystatin (Mycostatin) 5 ml PO QID [facility] Stop: 08/03/19 12:59 Last Admin: 07/05/19 08:47 Dose: 5 ml Documented by: Ondansetron HCl (Zofran) 4 mg IV Q6H PRN PRN Reason: Nausea Stop: 07/31/19 22:48 Pantoprazole Sodium (Protonix) 40 mg PO BID [facility] Stop: 08/01/19 08:59 Last Admin: 07/05/19 08:47 Dose: 40 mg Documented by: Polyethylene Glycol (Miralax Powder Packet) 17 gm PO DAILY PRN PRN Reason: Constipation Stop: 07/31/19 22:48 Sertraline HCl (Zoloft) 200 mg PO HS [facility] Stop: 08/01/19 20:59 Last Admin: 07/04/19 20:26 Dose: 200 mg Documented by: Trazodone HCl (Desyrel) 150 mg PO HS [facility] Stop: 08/01/19 20:59 Last Admin: 07/04/19 20:26 Dose: 150 mg Documented by: Umeclidinium [place] (Incruse Ellipta) 1 puffs INH DAILY [facility] Stop: 08/01/19 08:59 Last Admin: 07/05/19 08:46 Dose: 1 puffs Documented by: (1) Pneumonia Laterality: right Lung location: middle lobe of lung Pneumonia type: due to unspecified organism Qualified Code(s): J18.9 - Pneumonia, unspecified organism (2) Respiratory failure with hypoxia Chronicity: acute on chronic Qualified Code(s): J96.21 - Acute and chronic respiratory failure with hypoxia
[2019-07-05] MEDS: TRAZODONE HCL 50 MG TAB PO SCH (20:59)
[2019-07-05] MEDS: SERTRALINE HCL 100 MG TABLET PO SCH (20:59)
[2019-07-05] MEDS: cefTRIAXone SODIUM 2,000 MG in DEXTROSE 5% 50 ML IV SCH (20:59)
[2019-07-06] MEDS: IPRATROPIUM BROMIDE NEB SOLN 0.02% 2.5 ML VIAL INH SCH ×3 (01:18→13:24)
[2019-07-06] MEDS: LEVALBUTEROL 1.25MG/0.5ML NEB INH SCH ×3 (01:20→13:24)
--- NOTE | 2019-07-06 08:06 | XRay Report ---
XR chest 2V PA/lateral HISTORY: pneumonia COMPARISON: Chest CTA 07/01/2019. FINDINGS: No pneumothorax. No pleural effusions. The heart is normal in size. Stable prominence of th e central pulmonary arteries. Mild interstitial thickening at the lung bases has improved. No new foc al lung consolidations identified. IMPRESSION: Mild interstitial thickening at the lung bases has improved. No new focal lung consolidations. ACT 112: Negative or not required by law. Electronically signed by: Martin Perez M.D. 07/06/2019 8:05 AM
[2019-07-06] MEDS: ENOXAPARIN INJ 40 MG/0.4 ML SYR SQ SCH (08:41)
[2019-07-06] MEDS: UMECLIDINIUM BROMIDE 62.5MCG/BLISTER 7 PUFFS/INHALER INH SCH (08:41)
[2019-07-06] MEDS: NYSTATIN SUSP 500,000 U/5 ML UDC PO SCH (08:42)
[2019-07-06] MEDS: PANTOprazole 40 MG TAB PO SCH (08:42)
[2019-07-06] MEDS: DOXYCYCLINE HYCLATE 100 MG CAP PO SCH (08:42)
[2019-07-06] MEDS: dilTIAZem ER 120 MG CAPCR PO SCH (08:42)
[2019-07-06] MEDS: guaiFENesin 200 MG TAB PO SCH (08:42)
[2019-07-06] MEDS: methylPREDNISolone 40 MG in SYRINGE 0 ML IV SCH (08:43)
[2019-07-06] MEDS: FINASTERIDE 5 MG TAB PO SCH (08:43)
[2019-07-06] MEDS: FLUTICASONE/VILANTEROL 100/25MCG 14 PUFFS/INHALER INH SCH (08:43)
--- NOTE | 2019-07-06 11:26 | Hospitalist Progress Note ---
Date of Service July 06, 2019 Assessment & Plan (1) Pneumonia: Recent discharge from the hospital on of this month following an attack of acute bronchitis and COPD exacerbation Has been back with increasing shortness of breath on exertion and desaturation Noted to have right middle lobe infiltration on CAT scan of the chest Has been on intravenous ceftriaxone and oral doxycycline twice daily Much better today Advised to increase ambulation PT and OT evaluation Clinically a lot better and will continue current medications CXR PA and lateral view tomorrow We will continue current antibiotics Repeat chest x-ray did show improvement of infiltration He will continue with oral doxycycline to finish a 10-day course of antibiotic (2) COPD exacerbation: Has severe emphysema Has been getting intravenous Solu-Medrol and nebulized bronchodilators as before Will change to oral prednisone on improvement Decrease intravenous dose of steroid Will go home on oral Medrol dose pack He has Medrol Dosepak at home and will finish (3) Respiratory failure with hypoxia: Has been on home oxygen Requiring more oxygen than before Oxygen requirement has been to baseline for the last 2 days (4) Oxygen dependent: As above (5) HTN (hypertension): Blood pressure is upper side of normal Continue current medications Blood pressure remains upper side of normal Will increase diltiazem to twice a day Blood pressure seems to be controlled with increasing dose of diltiazem (6) PTSD (post-traumatic stress disorder): Continue suppressive medic (7) Depression: No acute delirium DVT prophylaxis Subcu Lovenox CODE STATUS Full Discharge home this afternoon Subjective 07/06/2019 Patient was seen and examined in medical telemetry unit He denies any complaints as of today No cough and/or shortness of breath at rest He has been ambulating without any difficulty as well Discharge home this afternoon 07/02/2019 The patient was seen and examined in medical for He was admitted with the desaturation with minimal exertion and shortness of breath and noted to have right middle lobe infiltration He has severe COPD Has been feeling a little bit better since admission 07/03/19 Patient was seen and examined in medical floor He has been feeling little better Still has shortness of breath at rest but cough is decreased Denies any fever and/or chills 07/04/2019 The patient was seen and examined in medical telemetry unit He remains stable and complains of less cough and/or shortness of breath He has been out of bed without any symptoms He complains to have oral thrush 07/05/2019 Patient was seen and examined in medical floor He has been feeling a lot better and denies any cough and/or shortness of breath at rest Was advised to have more ambulation Like to be discharged tomorrow Review of Systems Review of Systems: All systems reviewed and are unremarkable except as noted below Respiratory: + dyspnea on exertion (Minimal); no cough and no dyspnea Physical Exam Physical Exam: Lying in bed comfortably Constitutional: well developed, well nourished and + obese Eyes: PERRL, conjunctivae normal, anicteric sclerae ENMT: external ear and nose normal, oropharynx normal Neck: trachea midline, no thyromegaly Respiratory: normal respiratory effort; no respiratory distress Auscultation: + diminished lung sounds and + wheezes (Minimal wheezing); no crackles Cardiovascular: Rate/Rhythm: regular rate and regular rhythm Heart Sounds: no murmur Gastrointestinal (Abdomen): Inspection/Auscultation: abdomen normal to inspection and normal bowel sounds Musculoskeletal: No acute arthritis involving any joints Lymphatic: no cervical or axillary lymphadenopathy Results & Data Vital Signs (Past 12 Hours) Vital Signs Temp Pulse Pulse Resp BP BP Pulse Ox 07/06/19 11:20 36.6 C 84 16 156/88 H 90 07/06/19 07:32 36.1 C L 74 16 126/53 L 98 07/06/19 07:23 74 18 98 07/06/19 04:44 36.5 C 72 23 124/74 94 07/06/19 01:21 85 18 93 07/06/19 00:42 82 07/06/19 00:35 36.8 C 78 20 139/81 92 Medications Administered Current Inpatient Medications Acetaminophen (Tylenol) 650 mg PO Q4H PRN PRN Reason: Pain or Fever Stop: 07/31/19 22:48 Last Admin: 07/04/19 19:31 Dose: 650 mg Documented by: Buspirone HCl (Buspar) 5 mg PO HS [facility] Stop: 08/01/19 20:59 Last Admin: 07/05/19 20:59 Dose: 5 mg Documented by: Cetirizine HCl (Zyrtec) 10 mg PO DAILY PRN PRN Reason: Allergy Symptoms Stop: 07/31/19 22:48 Diltiazem HCl (Tiazac) 240 mg PO DAILY [facility] Stop: 08/04/19 08:59 Last Admin: 07/06/19 08:42 Dose: 240 mg Documented by: Doxycycline Hyclate (Vibramycin) 100 mg PO BID [facility] Stop: 07/09/19 08:59 Last Admin: 07/06/19 08:42 Dose: 100 mg Documented by: Enoxaparin Sodium (Lovenox) 40 mg SQ Q24H [facility] Stop: 08/01/19 08:59 Last Admin: 07/06/19 08:41 Dose: 40 mg Documented by: Epinephrine HCl (Epipen) 0.3 mg IM UD PRN PRN Reason: Allergic Reaction Stop: 07/31/19 22:48 Finasteride (Proscar) 5 mg PO DAILY [facility] Stop: 08/01/19 08:59 Last Admin: 07/06/19 08:43 Dose: 5 mg Documented by: Fluticasone/Vilanterol (Breo Ellipta 100/25 Mcg Inh) 1 puffs INH DAILY [facility] Stop: 08/01/19 08:59 Last Admin: 07/06/19 08:43 Dose: 1 puffs Documented by: Guaifenesin (Organidin Nr) 400 mg PO BID [facility] Stop: 08/01/19 08:59 Last Admin: 07/06/19 08:42 Dose: 400 mg Documented by: Ceftriaxone Sodium 2,000 mg/ (Dextrose) 70 mls @ 140 mls/hr IV Q24H [facility] Stop: 07/07/19 21:29 Last Infusion: 07/05/19 21:41 Dose: Infused Documented by: Methylprednisolone 40 mg/ (Syringe) 0.64 mls @ 1.5 mls/min IV BID [facility] Stop: 08/03/19 20:59 Last Admin: 07/06/19 08:43 Dose: 1.5 mls/min Documented by: Ipratropium [place] (Atrovent 0.02% 0.5mg/2.5ml) 0.5 mg INH Q6R [facility] Stop: 08/01/19 00:59 Last Admin: 07/06/19 07:23 Dose: 0.5 mg Documented by: Ipratropium [place] (Atrovent 0.02% 0.5mg/2.5ml) 0.5 mg INH Q2H PRN PRN Reason: Shortness Of Breath Or Wheezing Stop: 07/31/19 22:48 Levalbuterol HCl (Xopenex 1.25mg/0.5ml Neb) 1.25 mg INH Q6R [facility] Stop: 08/01/19 00:59 Last Admin: 07/06/19 07:23 Dose: 1.25 mg Documented by: Levalbuterol HCl (Xopenex 1.25mg/0.5ml Neb) 1.25 mg INH Q2H PRN PRN Reason: Shortness Of Breath Or Wheezing Stop: 07/31/19 22:48 Nystatin (Mycostatin) 5 ml PO QID [facility] Stop: 08/03/19 12:59 Last Admin: 07/06/19 08:42 Dose: 5 ml Documented by: Ondansetron HCl (Zofran) 4 mg IV Q6H PRN PRN Reason: Nausea Stop: 07/31/19 22:48 Pantoprazole Sodium (Protonix) 40 mg PO BID [facility] Stop: 08/01/19 08:59 Last Admin: 07/06/19 08:42 Dose: 40 mg Documented by: Polyethylene Glycol (Miralax Powder Packet) 17 gm PO DAILY PRN PRN Reason: Constipation Stop: 07/31/19 22:48 Sertraline HCl (Zoloft) 200 mg PO HS [facility] Stop: 08/01/19 20:59 Last Admin: 07/05/19 20:59 Dose: 200 mg Documented by: Trazodone HCl (Desyrel) 150 mg PO HS [facility] Stop: 08/01/19 20:59 Last Admin: 07/05/19 20:59 Dose: 150 mg Documented by: Umeclidinium [place] (Incruse Ellipta) 1 puffs INH DAILY [facility] Stop: 08/01/19 08:59 Last Admin: 07/06/19 08:41 Dose: 1 puffs Documented by: (1) Pneumonia Laterality: right Lung location: middle lobe of lung Pneumonia type: due to unspecified organism Qualified Code(s): J18.9 - Pneumonia, unspecified organism (2) Respiratory failure with hypoxia Chronicity: acute on chronic Qualified Code(s): J96.21 - Acute and chronic respiratory failure with hypoxia
== END 2019-07-06 15:32 | disposition home or self-care (01) | DRG 190 ==
LOC: ED 17:25 → 2N 21:51

== ENCOUNTER 2019-08-19 14:41 | Inpatient (IN) ==
[2019-08-19] MEDS ORDERED: ALBUT/IPRATROP 3MG/0.5MG NEB 3 ML VIAL INH STA (15:08)
--- NOTE | 2019-08-19 15:20 | Emergency Department Note ---
Entered by Papito Goodwin acting as a scribe for History of Present Illness General Chief complaint: Shortness of Breath/Dyspnea Stated complaint: COUGH, CHEST PAIN, SOB Time Seen by Provider: 08/19/19 14:54 Source: patient History of Present Illness Onset (ago): day(s) (few) Location: chest Pain Consistency: + other (worsening) Maximum Pain Intensity: 8 Quality: + other (shortness of breath) Relieved By: + rest (and deep breathing) Exacerbated By: + movement Associated symptoms: + chest pain (pressure) and + cough The patient is a 69 y/o male who presents to the ED w/ CC of worsening shortness of breath beginning a few days ago. The patient states he has had trouble maintaining his PulseOx at home while being on 3L of oxygen. He reports he will walk around his house and his saturation will drop to 78 while on his 3L. The patient notes the only way to raise his saturation to 89-91 is to sit down and breathe deeply. He states he also developed chest pressure for the past three days. The [facility]. He notes he has had a cough that is productive with yellow/brown phlegm for the past few days. The patient states the last time he was hospitalized for pneumonia was a few months ago. Home Medications Home Medications Medication Instructions Recorded Confirmed Type Spiriva with HandiHaler 1 cap INHALATION QPM 04/08/18 08/19/19 History buspirone 5 mg PO HS 04/08/18 08/19/19 History cetirizine 10 mg PO DAILY PRN 04/08/18 08/19/19 History omeprazole 20 mg PO BID 04/08/18 08/19/19 History sertraline 200 mg PO HS 04/08/18 08/19/19 History trazodone 150 mg PO HS 04/08/18 08/19/19 History albuterol sulfate 2 puff INHALATION Q6H PRN 07/04/18 08/19/19 History albuterol sulfate 2.5 mg INHALATION QID PRN 07/04/18 08/19/19 History finasteride 5 mg PO DAILY 07/04/18 08/19/19 History budesonide-formoterol [Symbicort] 2 puff INHALATION BID 08/22/18 08/19/19 History epinephrine [EpiPen] 0.3 mg IM DIRECTED PRN 08/22/18 08/19/19 History guaifenesin 400 mg PO BID 08/22/18 08/19/19 History Unknown Maintenance Antibiotic 1 dose PO 3XWK 06/25/19 07/01/19 History cholecalciferol (vitamin D3) 0 unit PO DAILY 08/19/19 08/19/19 History [Vitamin D3] erythromycin 0 mg PO 3XWK 08/19/19 08/19/19 History Allergies Allergy/AdvReac Type Severity Reaction Status Date / Time bee venom protein (honey bee) Allergy Severe ANAPHYLAXIS Verified 08/19/19 15:19 pneumococcal vaccine Allergy Severe SWELLING Verified 08/19/19 15:19 Gethmwk-Pkn-Rgw Reductase Allergy Severe CPK'S GO Verified 08/19/19 15:19 Inhibitor THROUGH ROOF amoxicillin Allergy Intermediate FACIAL Verified 08/19/19 15:19 SWELLING (EYES SWELLED SHUT) clavulanic acid Allergy Intermediate FACIAL Verified 08/19/19 15:19 SWELLING (EYES SWELLED SHUT) prednisone AdvReac Severe confusion Verified 08/19/19 15:19 and agitation Past Med/Surg History Medical History 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) Depression Emphysema/COPD GERD (gastroesophageal reflux disease) (Chronic) History of tobacco abuse (Chronic) HTN (hypertension) (Chronic) Kidney stones (Resolved) Osteoarthritis (Chronic) Pneumonia (Resolved) PTSD (post-traumatic stress disorder) PTSD (post-traumatic stress disorder) (Chronic) Thrombophlebitis arm (Resolved) Surgical History H/O hernia repair History of appendectomy (Resolved) History of extraction of renal calculus (Resolved) History of tonsillectomy (Resolved) Loss of teeth due to extraction (Chronic) S/P arthroscopic surgery of right knee Family History Mother Colon cancer Father FH: kidney cancer Other Cancer Social History Preferred Language: [place] Communication Ability: Effective Business Services Tech Required: No Beliefs That Will Affect Care: None marital status: Current Living Situation: Spouse Current Living Situation Comment: lives with spouse 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 and A total of 10 systems reviewed and were otherwise negative Physical Exam Vital Signs Vital Signs - 24 hr 08/19/19 14:48 08/19/19 15:00 08/19/19 15:08 Temperature 36.5 C Temperature Source Oral Pulse Rate 77 66 Pulse Rate [Right] Pulse Rate from SpO2 Sensor 66 Respiratory Rate 22 17 22 Respiratory Rate [Exercises] Respiratory Effort / Characteristics Non-Labored Non-Labored SOB on Exertion Respiratory Depth Normal Normal Respiratory Pattern Regular Blood Pressure 138/78 143/86 H Blood Pressure Mean 98 102 Pulse Oximetry 88 L 95 93 Pulse Oximetry [Exercises] Oxygen Delivery Method Nasal Cannula Nasal Cannula Oxygen Flow Rate 3 3 Sepsis Recent Fever Within 48 Hours No Sepsis New/Unexplained Change in Mental Status No Sepsis Action Taken by Nursing No Action Required 08/19/19 15:14 08/19/19 15:15 08/19/19 15:30 Temperature Temperature Source Pulse Rate 67 65 61 Pulse Rate [Right] Pulse Rate from SpO2 Sensor 66 65 60 Respiratory Rate 25 H 21 17 Respiratory Rate [Exercises] Respiratory Effort / Characteristics Respiratory Depth Respiratory Pattern Blood Pressure 133/77 Blood Pressure Mean 93 Pulse Oximetry 95 95 95 Pulse Oximetry [Exercises] Oxygen Delivery Method Oxygen Flow Rate Sepsis Recent Fever Within 48 Hours Sepsis New/Unexplained Change in Mental Status Sepsis Action Taken by Nursing 08/19/19 15:40 08/19/19 15:44 08/19/19 15:45 Temperature Temperature Source Pulse Rate 58 L Pulse Rate [Right] 61 Pulse Rate from SpO2 Sensor 58 L Respiratory Rate 20 13 Respiratory Rate [Exercises] Respiratory Effort / Characteristics Non-Labored Spontaneous Respiratory Depth Respiratory Pattern Blood Pressure Blood Pressure Mean Pulse Oximetry 94 93 98 Pulse Oximetry [Exercises] Oxygen Delivery Method Nasal Cannula Nasal Cannula Oxygen Flow Rate 4 3 Sepsis Recent Fever Within 48 Hours Sepsis New/Unexplained Change in Mental Status Sepsis Action Taken by Nursing 08/19/19 16:00 08/19/19 16:14 08/19/19 16:15 Temperature Temperature Source Pulse Rate 59 L 60 Pulse Rate [Right] Pulse Rate from SpO2 Sensor 59 L 60 Respiratory Rate 15 16 Respiratory Rate [Exercises] 34 H Respiratory Effort / Characteristics Respiratory Depth Respiratory Pattern Blood Pressure 131/72 Blood Pressure Mean 95 Pulse Oximetry 96 95 Pulse Oximetry [Exercises] 78 L Oxygen Delivery Method Nasal Cannula Oxygen Flow Rate 3 Sepsis Recent Fever Within 48 Hours Sepsis New/Unexplained Change in Mental Status Sepsis Action Taken by Nursing 08/19/19 16:30 Temperature Temperature Source Pulse Rate 59 L Pulse Rate [Right] Pulse Rate from SpO2 Sensor 59 L Respiratory Rate 17 Respiratory Rate [Exercises] Respiratory Effort / Characteristics Respiratory Depth Respiratory Pattern Blood Pressure 124/77 Blood Pressure Mean 92 Pulse Oximetry 94 Pulse Oximetry [Exercises] Oxygen Delivery Method Nasal Cannula Oxygen Flow Rate 4 Sepsis Recent Fever Within 48 Hours Sepsis New/Unexplained Change in Mental Status Sepsis Action Taken by Nursing CONSTITUTIONAL/VITAL SIGNS: Reviewed / noted above. GENERAL: Non-toxic in appearance. INTEGUMENTARY: Warm, dry, and Vincent. HEAD: Normocephalic. EYES: without scleral icterus or trauma. ENT/OROPHARYNX: clear and moist. LYMPHADENOPATHY/NECK: Is supple without lymphadenopathy or meningismus. RESPIRATORY: Diminished breathe sounds bilaterally with expiratory wheezing in the right lower lobe. CARDIOVASCULAR: Regular rate and rhythm. GI/ABDOMEN: Soft and nontender. No organomegaly or pulsatile mass. No rebound or guarding. Normal bowel sounds. EXTREMITIES: Warm and well perfused. BACK: No CVA tenderness. NEUROLOGICAL: Intact without focal deficits. PSYCHIATRIC: normal affect. MUSCULOSKELETAL: Normally developed with good muscle tone. Course Course 1457: Past medical records reviewed. The patient was evaluated in room A02. A complete history and physical examination was performed. 1654: Upon reevaluation, the patient is resting comfortably. I discussed laboratory and radiographic results with him. He verbalized agreement of the treatment plan. The patient will be evaluated for further management and care. 1704: I reviewed the patient's case with Shakila Cole PA-C, [facility] Hospitalist, attending Dr. Moreno. She will evaluate the patient for further management. Administered Medications Discontinued Medications Albuterol (Duoneb) 3 ml INH NOW STA Stop: 08/19/19 15:09 Last Admin: 08/19/19 15:38 Dose: 3 ml Documented by: [id number] Medical Decision Making Differential Diagnosis Differential diagnoses includes but is not limited to pneumonia, bronchitis, COPD/Asthma exacerbation, pneumothorax, pulmonary embolism, congestive heart failure, acute coronary syndrome Medical Records Attestation: I reviewed the patient's medical records. Home Medications Current Medication List: was personally reviewed by me Laboratory Data Attestation: I reviewed the patient's lab results. Result diagrams: 08/19/19 15:26 08/19/19 15:26 Lab Results 08/19/19 08/19/19 08/19/19 Range/Units 15:26 15:26 15:26 WBC 9.35 (4.8-10.8) K/uL RBC 4.17 L (4.7-6.1) M/uL Hgb 12.2 L (14.0-18.0) g/dL Hct 37.7 L (42-52) % MCV 90.4 (80-100) fL MCH 29.3 (25-34) pg MCHC 32.4 (32-36) g/dL RDW Std Deviation 52.1 H (36.4-46.3) fL RDW Coeff of Ren 15.7 H (11.5-14.5) % Plt Count 157 (130-400) K/uL MPV 9.3 (7.4-10.4) fL Immature Gran % (Auto) 0.2 % Neut % (Auto) 71.8 % Lymph % (Auto) 19.5 % Lanier % (Auto) 7.6 % Eos % (Auto) 0.7 % Baso % (Auto) 0.2 % Immature Gran # (Auto) 0.02 (0.00-0.02) K/uL Neut # (Auto) 6.71 H (1.4-6.5) K/uL Lymph # (Auto) 1.82 (1.2-3.4) K/uL Lanier # (Auto) 0.71 H (0.11-0.59) K/uL Eos # (Auto) 0.07 (0-0.5) K/uL Baso # (Auto) 0.02 (0-0.2) K/uL PT 10.9 (9.0-12.0) Seconds INR 1.0 (0.9-1.1) APTT 23.2 (21.0-31.0) Seconds PTT Ratio 0.8 Sodium 138 (136-145) mmol/L Potassium 3.8 (3.5-5.1) mmol/L Chloride 105 (98-107) mmol/L Carbon Dioxide 29 (21-32) mmol/L Anion Gap 4.0 (3-11) BUN 14 (7-18) mg/dl Creatinine 1.09 (0.6-1.4) mg/dl Est Cr Clr Drug Dosing 66.0 ml/min Est GFR ( Amer) 79.8 Est GFR (Non-Af Amer) 68.9 BUN/Creatinine Ratio 12.4 (10-20) Glucose 100 H (70-99) mg/dl Calcium 8.9 (8.5-10.1) mg/dl Total Bilirubin 0.4 (0.2-1) mg/dl AST 21 (15-37) U/L ALT 21 (12-78) U/L Alkaline Phosphatase 71 (45-117) U/L Troponin I < 0.015 (0-0.045) ng/ml Total Protein 6.7 (6.4-8.2) gm/dl Albumin 3.3 L (3.4-5.0) gm/dl Globulin 3.4 (2.5-4.0) gm/dl Albumin/Globulin Ratio 1.0 (0.9-2) Imaging Data Radiologist's Impression: Radiology results as stated below per my review and the radiologist's interpretation: SINGLE VIEW CHEST CLINICAL HISTORY: Dyspnea. FINDINGS: An AP, portable, upright chest radiograph is compared to study dated 07/06/2019 and correlated with chest CT dated 07/01/2019. The examination is degraded by portable technique and patient rotation. The heart is top normal for projection noting atherosclerotic calcification of the thoracic aorta. Enlargement of the main pulmonary arteries suggests pulmonary artery hypertension. Advanced emphysema and chronic interstitial thickening are similar to previous. Dependent airspace opacities are noted in the lower lobes. No large pleural effusion or pneumothorax is seen. The skeletal structures are osteopenic. The bony thorax is grossly intact. IMPRESSION: 1. Advanced emphysema. 2. Dependent airspace opacities could represent scarring/atelectasis. Correlate clinically for evidence of a superimposed infectious/inflammatory pneumonitis. ACT 112: Negative or not required by law. Electronically signed by: Luciano Prieto M.D. 08/19/2019 3:37 PM ECG Data Attestation: I personally reviewed and interpreted this ECG as follows: Indication: + SOB/dyspnea Rate (beats per minute): 63 Rhythm: + normal sinus ECG Intervals/blocks: + Normal QT-c ECG ST segments: no ST elevation ECG Findings: no PVCs Blood Pressure Blood Pressure Findings: Elevated blood pressure Blood Pressure Disposition: further management by hospitalist ALBINO Zamudio This is a 69-year-old male who presents to the ED with a chief complaint of shortness of breath with exertion. The patient states that he noticed his symptoms this morning. He also noticed that his pulse ox was low. It was 78% on his typical 3 L of home oxygen. The patient also reports chest pain for the past few days. He describes it as a pressure. He also reports a cough that is productive of a slight yellow/brown phlegm. His initial pulse ox here was noted to be 88% on 3 L nasal cannula. Vital signs are otherwise stable. His physical exam did reveal diminished breath sounds bilaterally with some end expiratory wheezing in the right lower lobe. The patient does not appear to be in any respiratory distress. He does not appear to have any increased work of breathing. The patient does have a history of emphysema. His pulse ox on 3 L in the ED evaluation room revealed a pulse ox of 93 to 98%. Twelve-lead EKG shows a normal sinus rhythm at rate of 63 without ischemic changes. Chest x-ray reveals advanced COPD as well as atelectasis or possibly some inflammatory change in the bases. CBC is normal. An ambulatory pulse ox was performed and the patient's pulse ox drops into the 70s with ambulation. This was done after a DuoNeb treatment. The chemistry panel was unremarkable and troponin was negative. The patient was given IV Zithromax and IV Rocephin. Because of his hypoxia despite oxygen, he will be seen by the hospitalist for further evaluation and care. Impression & Plan Basal pneumonia of both lungs, Hypoxia Discharge Plan Visit Data Chief Complaint: Shortness of Breath/Dyspnea Stated Complaint: COUGH, CHEST PAIN, SOB ED Provider: Anand Pickard Discharge Problem: Basal pneumonia of both lungs, Hypoxia Patient Disposition: Being Evaluated by Hospitalist Forms Stand Alone Forms: My [facility] Prescriptions Prescriptions: No Action albuterol sulfate 2.5 mg /3 mL (0.083 %) Solution For Nebulization 2.5 mg inhalation QID PRN (Reason: Shortness Of Breath Or Wheezing) RF: 0 albuterol sulfate 90 mcg/actuation Hfa Aerosol Inhaler 2 puff INHALATION Q6H PRN (Reason: Shortness Of Breath Or Wheezing) RF: 0 finasteride 5 mg Tablet 5 mg PO DAILY RF: 0 buspirone 5 mg Tablet 5 mg PO HS RF: 0 cetirizine 10 mg Tablet 10 mg PO DAILY PRN (Reason: Allergy Symptoms) RF: 0 sertraline 100 mg Tablet 200 mg PO HS RF: 0 trazodone 150 mg Tablet 150 mg PO HS RF: 0 omeprazole 20 mg Capsule,Delayed Release(Dr/Ec) 20 mg PO BID RF: 0 Spiriva with HandiHaler 18 mcg Capsule, W/Inhalation Device 1 cap INHALATION QPM RF: 0 guaifenesin 200 mg Tablet 400 mg PO BID RF: 0 epinephrine [EpiPen] 0.3 mg/0.3 mL Auto-Injector 0.3 mg IM DIRECTED PRN (Reason: Allergic Reaction) RF: 0 budesonide-formoterol [Symbicort] 160-4.5 mcg/actuation Hfa Aerosol Inhaler 2 puff INHALATION BID RF: 0 Unknown Maintenance Antibiotic 1 dose PO 3XWK RF: 0 cholecalciferol (vitamin D3) [Vitamin D3] 25 mcg (1,000 unit) Capsule 0 unit PO DAILY RF: 0 erythromycin 250 mg Tablet 0 mg PO 3XWK RF: 0 Referrals Referrals: PT,DECLINED [Primary Care Provider] - The scribe's documentation has been prepared under my direction and personally reviewed by me in its entirety. I confirm that the note above accurately reflects all work, treatment, procedures, and medical decision making performed by me.
[2019-08-19 15:35] LABS: Basophils # (auto) 0.02 K/uL (0-0.2); Basophils % (auto) 0.2 %; Eosinophils # (auto) 0.07 K/uL (0-0.5); Eosinophils % (auto) 0.7 %; Hematocrit (blood only) 37.7 % (42-52); Hemoglobin 12.2 g/dL (14.0-18.0); Immature Granulocytes # (auto) 0.02 K/uL (0.00-0.02); Immature Granulocytes % (auto) 0.2 %; Lymphocytes # (auto) 1.82 K/uL (1.2-3.4); Lymphocytes % (auto) 19.5 %; Mean Corpuscular Hemoglobin 29.3 pg (25-34); Mean Corpuscular Hgb Conc 32.4 g/dL (32-36); Mean Corpuscular Volume 90.4 fL (80-100); Mean Platelet Volume 9.3 fL (7.4-10.4); Monocytes # (auto) 0.71 K/uL (0.11-0.59); Monocytes % (auto) 7.6 %; Neutrophils # (auto) 6.71 K/uL (1.4-6.5); Neutrophils % (auto) 71.8 %; Platelet Count 157 K/uL (130-400); RDW Coefficient of Variation 15.7 % (11.5-14.5); RDW Standard Deviation 52.1 fL (36.4-46.3); Red Blood Count 4.17 M/uL (4.7-6.1); White Blood Count 9.35 K/uL (4.8-10.8)
--- NOTE | 2019-08-19 15:38 | XRay Report ---
SINGLE VIEW CHEST CLINICAL HISTORY: Dyspnea. FINDINGS: An AP, portable, upright chest radiograph is compared to study dated 07/06/2019 and correlat ed with chest CT dated 07/01/2019. The examination is degraded by portable technique and patient rotat ion. The heart is top normal for projection noting atherosclerotic calcification of the thoracic aor ta. Enlargement of the main pulmonary arteries suggests pulmonary artery hypertension. Advanced emphy sema and chronic interstitial thickening are similar to previous. Dependent airspace opacities are no mildred in the lower lobes. No large pleural effusion or pneumothorax is seen. The skeletal structures ar e osteopenic. The bony thorax is grossly intact. IMPRESSION: 1. Advanced emphysema. 2. Dependent airspace opacities could represent scarring/atelectasis. Correlate clinically for eviden ce of a superimposed infectious/inflammatory pneumonitis. ACT 112: Negative or not required by law. Electronically signed by: Luciano Prieto M.D. 08/19/2019 3:37 PM
[2019-08-19 15:45] LABS: Partial Thromboplastin Ratio 0.8; Partial Thromboplastin Time 23.2 Seconds (21.0-31.0); Prothrombin Time 10.9 Seconds (9.0-12.0)
[2019-08-19 15:58] LABS: Alanine Aminotransferase 21 U/L (12-78); Albumin Level 3.3 gm/dl (3.4-5.0); Aspartate Aminotransferase 21 U/L (15-37); BUN Creatinine Ratio 12.4 (10-20); Blood Urea Nitrogen 14 mg/dl (7-18); Calcium 8.9 mg/dl (8.5-10.1); Carbon Dioxide 29 mmol/L (21-32); Chloride 105 mmol/L (98-107); Est GFR (African American) 79.8; Est GFR (Non-African American) 68.9; Glucose 100 mg/dl (70-99); Potassium 3.8 mmol/L (3.5-5.1); Sodium 138 mmol/L (136-145)
[2019-08-19 16:02] LABS: Alkaline Phosphatase 71 U/L (45-117); Bilirubin,Total 0.4 mg/dl (0.2-1); Globulin 3.4 gm/dl (2.5-4.0); Total Protein 6.7 gm/dl (6.4-8.2); Troponin I < 0.015 ng/ml (0-0.045)
--- NOTE | 2019-08-19 16:28 | Electrocardiogram Report ---
Test Reason : Blood Pressure : / mmHG Vent. Rate : 063 BPM Atrial Rate : 063 BPM P-R Int : 156 ms QRS Dur : 072 ms QT Int : 428 ms P-R-T Axes : 042 -10 051 degrees QTc Int : 437 ms Normal sinus rhythm Normal ECG When compared with ECG of 01-JUL-2019 17:32, No significant change was found Confirmed by Cristiano Allen ([id number]) on 08/19/2019 4:28:03 PM Referred By: Confirmed By:Cristiano Allen
[2019-08-19] MEDS ORDERED: AZITHROMYCIN 500 MG in DEXTROSE 5% 250 ML IV ONE (16:46)
[2019-08-19] MEDS ORDERED: cefTRIAXone SODIUM 1,000 MG/50 ML BAG IV STA (16:46)
--- NOTE | 2019-08-19 18:07 | History & Physical Report ---
Date of Service August 19, 2019 Assessment & Plan (1) Acute on chronic respiratory failure with hypoxia: (2) Basal pneumonia of both lungs: (3) COPD exacerbation: This is a 69-year-old male with significant PMH for chronic hypoxemic respiratory failure on 3 L of O2, emphysema, HTN, PTSD, GERD presents to ED secondary to shortness of breath with exertion and hypoxia x2 days. In ED he remained hemodynamically stable; however he was hypoxic requiring increased O2 requirements. He also desaturated with ambulation. Lab work revealed WBC 9.35, H&H 12.2 and 37.7, platelet 157, K3.8, BUN 14, creatinine 1.09, glucose 100, troponin WNL. Chest x-ray consistent with dependent airspace opacities which could represent scarring/atelectasis, correlate clinically for evidence of superimposed infectious/inflammatory pneumonitis. In ED he received IV azithromycin and Rocephin along with nebulizer treatment. His symptoms have improve since arrival and has good air exchange without wheezing on my exam. This is patient's third hospitalization since June 2019 for COPD exacerbation and presumed pneumonia. Cannot rule out HCAP, last discharged 07/06/19. Admit to PCU IV methylprednisolone 40 mg 3 times daily ( pt with allergy to prednisone but can tolerate methylprednisolone) IV cefepime, azithromycin and Flagyl for broad-spectrum coverage (cover for HCAP and aspiration given previous RML infiltrate) obtain CT scan chest w/o contrast sputum culture, procalcitonin pending Influenza pending BIOFIRE panel available tomorrow - consider ordering Pulmonary toilet with routine DuoNeb, incentive spirometry consult pulmonary due to freq exac - appreciate their input consider ST eval (4) Chest pain: Doubt ACS EKG reviewed, normal sinus rhythm no ST or T wave changes Troponin WNL Chest pain reproducible on exam and worsens with cough We will trend troponin x2 and repeat EKG in a.m. 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 Moreno, please see addendum History of Present Illness Chief Complaint: SOB with exertion and hypoxia x 2 days. Primary Care Provider: PT DECLINED This is a 69-year-old male with significant PMH for chronic hypoxemic respiratory failure on 3 L of O2, emphysema, HTN, PTSD, GERD presents to ED secondary to shortness of breath with exertion and hypoxia x2 days. Of significance patient with 2 hospitalizations in the past 3 months. Initially was hospitalized 06/25 06/30 secondary to a COPD exacerbation and right middle lobe pneumonia treated with doxycycline. He was then rehospitalized on 07/01 to 07/06/2019 again secondary to COPD exacerbation treated with IV methylprednisolone, IV Rocephin and oral doxycycline. His symptoms improved and he was discharged home. He had been doing well until the past 2 days when he developed a productive cough of brown-yellow sputum, increasing shortness of breath with exertion and hypoxia. He has a pulse oximeter at home and was getting readings in the 70s today. He occasionally gets short of breath at rest. When he does get short of breath he complains of left-sided chest pain. It resolves with rest. Chest pain gets worse when he coughs, but is not active with respiration. He denies any fever, chills, sweats, lightheadedness, dizziness, hemoptysis, wheezing, palpitations, nausea, vomiting, abdominal pain, change in bowel or urinary habits. He has been eating and drinking well and appetite has been good. He denies any significant weight gain or loss or peripheral edema. He admits to being compliant with Symbicort twice a day and has been using his nebulizer once a day. He has not used his nebulizer with his increasing shortness of breath. He is also taking azithromycin 250 mg 3 times a week as well as Mucinex. He denies any coughing with meals or feel like he is having difficulty swallowing. He denies any sick contacts or recent travel. In ED he remained hemodynamically stable; however he was hypoxic requiring increased O2 requirements. He also desaturated with ambulation. Lab work revealed WBC 9.35, H&H 12.2 and 37.7, platelet 157, K3.8, BUN 14, creatinine 1.09, glucose 100, troponin WNL. Chest x-ray consistent with dependent airspace opacities which could represent scarring/atelectasis, correlate clinically for evidence of superimposed infectious/inflammatory pneumonitis. In ED he received IV azithromycin and Rocephin along with nebulizer treatment. His symptoms did improve. Allergies Allergy/AdvReac Type Severity Reaction Status Date / Time bee venom protein (honey bee) Allergy Severe ANAPHYLAXIS Verified 08/19/19 15:19 amoxicillin Allergy Intermediate FACIAL Verified 08/19/19 15:19 SWELLING (EYES SWELLED SHUT) clavulanic acid Allergy Intermediate FACIAL Verified 08/19/19 15:19 SWELLING (EYES SWELLED SHUT) pneumococcal vaccine Allergy Intermediate SWELLING Verified 08/19/19 18:22 Iylxgyf-Wbi-Kpx Reductase Allergy Intermediate CPK'S GO Verified 08/19/19 18:22 Inhibitor THROUGH ROOF prednisone AdvReac Intermediate confusion Verified 08/19/19 18:22 and agitation Home Medications Home Medications Medication Instructions Recorded Confirmed Type Spiriva with HandiHaler 1 cap INHALATION QPM 04/08/18 08/19/19 History buspirone 5 mg PO HS 04/08/18 08/19/19 History cetirizine 10 mg PO DAILY PRN 04/08/18 08/19/19 History omeprazole 20 mg PO BID 04/08/18 08/19/19 History sertraline 200 mg PO HS 04/08/18 08/19/19 History trazodone 150 mg PO HS 04/08/18 08/19/19 History albuterol sulfate 2 puff INHALATION Q6H PRN 07/04/18 08/19/19 History albuterol sulfate 2.5 mg INHALATION QID PRN 07/04/18 08/19/19 History budesonide-formoterol [Symbicort] 2 puff INHALATION BID 08/22/18 08/19/19 History epinephrine [EpiPen] 0.3 mg IM DIRECTED PRN 08/22/18 08/19/19 History guaifenesin 400 mg PO BID 08/22/18 08/19/19 History azithromycin 250 mg PO MOWEFR 08/19/19 08/19/19 History cholecalciferol (vitamin D3) 1,000 unit PO DAILY 08/19/19 08/19/19 History [Vitamin D3] Past Med/Surg History Medical History 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) Depression Emphysema/COPD GERD (gastroesophageal reflux disease) (Chronic) History of tobacco abuse (Chronic) HTN (hypertension) (Chronic) Kidney stones (Resolved) Osteoarthritis (Chronic) Pneumonia (Resolved) PTSD (post-traumatic stress disorder) PTSD (post-traumatic stress disorder) (Chronic) Thrombophlebitis arm (Resolved) Surgical History H/O hernia repair History of appendectomy (Resolved) History of extraction of renal calculus (Resolved) History of tonsillectomy (Resolved) Loss of teeth due to extraction (Chronic) S/P arthroscopic surgery of right knee Family History Mother Colon cancer Father FH: kidney cancer Other Cancer Social History Preferred Language: Icelandic Communication Ability: Effective Flow Floor Attendant Required: No Beliefs That Will Affect Care: None marital status: Current Living Situation: Spouse Current Living Situation Comment: lives with spouse 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 Other Information That Helps Us Care for You: No Feels Safe at Home: Yes Safety Concerns: Feels Safe At This Time Smoking Status: Former smoker Tobacco Type: cigarettes ; Cigarettes Per Day: 40 pack year hx ; Second Hand Exposure: No ; Hx Alcohol Use: No Hx Substance Use: No Review of Systems Review of Systems: All systems reviewed & are unremarkable except as noted in HPI & below Physical Exam Physical Exam: Constitutional: Appears older than stated age, WD/WN, vitals as above, NAD, sitting up in bed, pleasant, conversing easily Head: Normocephalic, Atraumatic Eyes: PERRL, conjunctivae normal, anicteric sclerae ENMT: external ear and nose normal, oropharynx normal Neck: trachea midline, no thyromegaly normal visual inspection Respiratory: On O2 via NC, normal respiratory effort, lungs clear to auscultation, no wheeze, rales, rhonchi. Normal insp/exp effort, no accessory muscle use Cardiovascular: RRR, no murmur, no edema Vessels: no JVD or carotid bruit Chest: normal inspection of chest, L sided parasternal CP reproducible on exam, no erythema Abdomen: normal bowel sounds, soft, nontender, no hepatosplenomegaly Musculoskeletal: no cyanosis or clubbing, extremities motor strength 5/5 Skin: no rashes, warm and dry normal turgor Neurologic: PERRL, EOMI, accommodation nl, no face palsy, no dysarthria CN's II-XI intact bilaterally and moves all extremities Psychiatric: A+Ox3, euthymic affect Lymphatic: no cervical or axillary lymphadenopathy : deferred Results & Data Vital Signs (Past 12 Hours) Vital Signs Temp Pulse Pulse Resp Resp BP Pulse Ox 08/19/19 17:30 60 16 133/78 93 08/19/19 17:00 61 19 118/71 93 08/19/19 16:42 62 19 124/77 93 08/19/19 16:30 59 L 17 124/77 94 08/19/19 16:15 60 16 95 08/19/19 16:14 34 H 08/19/19 16:00 59 L 15 131/72 96 08/19/19 15:45 58 L 13 98 08/19/19 15:44 93 08/19/19 15:40 61 20 94 08/19/19 15:30 61 17 133/77 95 08/19/19 15:15 65 21 95 08/19/19 15:14 67 25 H 95 08/19/19 15:08 22 93 08/19/19 15:00 66 17 143/86 H 95 08/19/19 14:48 36.5 C 77 22 138/78 88 L Pulse Ox 08/19/19 17:30 08/19/19 17:00 08/19/19 16:42 08/19/19 16:30 08/19/19 16:15 08/19/19 16:14 78 L 08/19/19 16:00 08/19/19 15:45 08/19/19 15:44 08/19/19 15:40 08/19/19 15:30 08/19/19 15:15 08/19/19 15:14 08/19/19 15:08 08/19/19 15:00 08/19/19 14:48 Laboratory Results Short CBC 08/19/19 Range/Units 15:26 WBC 9.35 (4.8-10.8) K/uL Hgb 12.2 L (14.0-18.0) g/dL Hct 37.7 L (42-52) % Plt Count 157 (130-400) K/uL BMP 08/19/19 15:26 Sodium 138 Potassium 3.8 Chloride 105 Carbon Dioxide 29 BUN 14 Creatinine 1.09 Glucose 100 H Calcium 8.9 Cardiac Enzymes 08/19/19 Range/Units 15:26 Troponin I < 0.015 (0-0.045) ng/ml Liver Function 08/19/19 Range/Units 15:26 Total Bilirubin 0.4 (0.2-1) mg/dl AST 21 (15-37) U/L ALT 21 (12-78) U/L Alkaline Phosphatase 71 (45-117) U/L Albumin 3.3 L (3.4-5.0) gm/dl Diagnostic Findings CXR: IMPRESSION: 1. Advanced emphysema. 2. Dependent airspace opacities could represent scarring/atelectasis. Correlate clinically for evidence of a superimposed infectious/inflammatory pneumonitis. Medications Administered Azithromycin 500 mg/ Dextrose 255 mls @ 125 mls/hr IV ONE ONE Stop: 08/19/19 18:48 Last Admin: 08/19/19 18:01 Dose: 125 mls/hr Documented by: [id number] Discontinued Medications Albuterol (Duoneb) 3 ml INH NOW STA Stop: 08/19/19 15:09 Last Admin: 08/19/19 15:38 Dose: 3 ml Documented by: [id number] Ceftriaxone Sodium (Rocephin) 1,000 mg in 50 mls @ 100 mls/hr IV NOW STA Stop: 08/19/19 17:15 Last Admin: 08/19/19 17:28 Dose: 100 mls/hr Documented by: [id number] ECG Rate (beats per minute): 63 Rhythm: normal sinus Additional Comments: QTC 437ms Code Status & VTE Plan Code Status Full Code VTE Prophylaxis Plan VTE Prophylaxis will be ordered: Yes Supervising Physician Co-Signing Physician Notes Pt seen and examined by me, care coordinated with Shakila Cole PA-C, pls refer to her note above for further detail. Pt is a a 69 y/o male with COPD and frequent hospitalizations, more recently discharged at the end of June. Reports chronic cough w/ clear yellow sputum however noted sputum to be brown for the past 3 days. He also noted that his O2 sats significantly decreased (to 70s%) with ambulation. Denies any fever, chills, but reports left sided chest pain that comes and goes and feels somewhat sharp, does not radiate anywhere. It is also increased w/ cough or when pressing on the chest. On physical exam, pt is lying in bed in NAD on 4L (up from 3L at baseline). Lung sounds are diminished b/l, no wheezing, or rhonchi appreciated. Heart sounds regular, no murmurs noted. Chest discomfort reproducible by pressing on ribcage. Abdomen is soft, nontender, nondistended, posit. bowel sounds. Pt moves extremities spontaneously, seems to answer questions appropriately, no facial asymmetry or slurred speech noted. 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 Price at [facility]. Will obtain medical records tmrw AM. Pt reports that no new medications were started during that visit, reports getting chest CT done and follow up appointment planned in 6 months. He was started on azithromycin MWF by his PCP. Will obtain chest CT to further evaluate and will consult pulmonary service given frequent hospitalizations. Will obtain sputum cltx, procalcitonin, cont. broad spectrum Abx for now. Goal O2 sats between 86-92% given his COPD. Chest pain does not seem to be ACS, EKG reviewed - normal sinus rhythm, troponin negative, will cont. to monitor. Dangelo Moreno MD
[2019-08-19 18:47] LABS: Influenza A virus by PCR Neg for Influ A (Neg); Influenza B virus by PCR Neg for Influ B (Neg)
[2019-08-19] MEDS ORDERED: ONDANSETRON INJ 2 MG/ML 2 ML VIAL IV PRN (19:07)
[2019-08-19] MEDS ORDERED: MAGNESIUM HYDROXIDE SUSP 30 ML UDC PO PRN (19:07)
[2019-08-19] MEDS ORDERED: ALUMINUM/MAGNESIUM SUSP 30 ML UDC PO PRN (19:07)
[2019-08-19] MEDS ORDERED: POLYETHYLENE (MIRALAX) 17 GM PACK PO PRN (19:07)
[2019-08-19] MEDS ORDERED: ACETAMINOPHEN 325 MG TAB PO PRN (19:07)
[2019-08-19 19:23] LABS: Basophils # (auto) 0.02 K/uL (0-0.2); Basophils % (auto) 0.2 %; Eosinophils # (auto) 0.09 K/uL (0-0.5); Hematocrit (blood only) 37.3 % (42-52); Immature Granulocytes # (auto) 0.02 K/uL (0.00-0.02); Immature Granulocytes % (auto) 0.2 %; Lymphocytes # (auto) 2.02 K/uL (1.2-3.4); Lymphocytes % (auto) 22.8 %; Mean Corpuscular Hemoglobin 29.4 pg (25-34); Mean Corpuscular Hgb Conc 32.2 g/dL (32-36); Mean Corpuscular Volume 91.4 fL (80-100); Mean Platelet Volume 9.1 fL (7.4-10.4); Monocytes # (auto) 0.64 K/uL (0.11-0.59); Monocytes % (auto) 7.2 %; Neutrophils # (auto) 6.08 K/uL (1.4-6.5); Neutrophils % (auto) 68.6 %; Platelet Count 156 K/uL (130-400); RDW Coefficient of Variation 15.6 % (11.5-14.5); RDW Standard Deviation 52.3 fL (36.4-46.3); Red Blood Count 4.08 M/uL (4.7-6.1); White Blood Count 8.87 K/uL (4.8-10.8)
[2019-08-19] MEDS ORDERED: METRONIDAZOLE CONSULT ACTIVE PRN (19:24)
[2019-08-19] MEDS ORDERED: CEFEPIME CONSULT ACTIVE PRN (19:25)
[2019-08-19] MEDS: ALBUT/IPRATROP 3MG/0.5MG NEB 3 ML VIAL NEB SCH (19:38)
[2019-08-19] MEDS: metroNIDAZOLE 500 MG/100 ML BAG IV SCH (21:05)
[2019-08-19] MEDS: CEFEPIME 2,000 MG in SYRINGE 7.5 ML IV SCH (21:05)
[2019-08-19] MEDS: methylPREDNISolone 40 MG in SYRINGE 0 ML IV SCH (21:05)
[2019-08-19] MEDS: UMECLIDINIUM BROMIDE 62.5MCG/BLISTER 7 PUFFS/INHALER INH SCH (21:06)
[2019-08-19] MEDS: ENOXAPARIN INJ 40 MG/0.4 ML SYR SQ SCH (21:06)
[2019-08-19] MEDS: SERTRALINE HCL 100 MG TABLET PO SCH (21:07)
[2019-08-19] MEDS: guaiFENesin 200 MG TAB PO SCH (21:07)
[2019-08-19] MEDS: PANTOprazole 40 MG TAB PO SCH (21:07)
[2019-08-19] MEDS: TRAZODONE HCL 50 MG TAB PO SCH (21:19)
[2019-08-20 03:15] LABS: Hematocrit (blood only) 37.8 % (42-52); Hemoglobin 11.9 g/dL (14.0-18.0); Mean Corpuscular Hemoglobin 28.7 pg (25-34); Mean Corpuscular Hgb Conc 31.5 g/dL (32-36); Mean Corpuscular Volume 91.1 fL (80-100); Mean Platelet Volume 9.4 fL (7.4-10.4); Platelet Count 143 K/uL (130-400); RDW Coefficient of Variation 15.6 % (11.5-14.5); RDW Standard Deviation 52.3 fL (36.4-46.3); Red Blood Count 4.15 M/uL (4.7-6.1); White Blood Count 7.73 K/uL (4.8-10.8)
[2019-08-20] MEDS: metroNIDAZOLE 500 MG/100 ML BAG IV SCH (03:26)
[2019-08-20] MEDS: CEFEPIME 2,000 MG in SYRINGE 7.5 ML IV SCH (03:27)
[2019-08-20 03:33] LABS: BUN Creatinine Ratio 9.9 (10-20); Blood Urea Nitrogen 13 mg/dl (7-18); Calcium 8.7 mg/dl (8.5-10.1); Carbon Dioxide 27 mmol/L (21-32); Chloride 106 mmol/L (98-107); Creatinine Clr Calc Pharmacy 56.7 ml/min; Est GFR (African American) 66.4; Est GFR (Non-African American) 57.3; Glucose 178 mg/dl (70-99); Magnesium 2.1 mg/dl (1.8-2.4); Potassium 4.3 mmol/L (3.5-5.1); Sodium 137 mmol/L (136-145)
[2019-08-20 03:38] LABS: Phosphorus 2.8 mg/dl (2.5-4.9); Troponin I < 0.015 ng/ml (0-0.045)
[2019-08-20 03:42] LABS: Appearance Urine Cloudy (Clear); Bacteria Urine Automated Negative (Negative); Bilirubin Urine Negative (Negative); Blood Urine Negative (Negative); Color Urine Yellow; Glucose Urine UA Negative (Negative); Ketones Urine Negative (Negative); Leukocyte Esterase Urine 2+ (Negative); Nitrite Urine Negative (Negative); Protein Urine Negative (Negative); RBC Urine Automated 0-4 /hpf (0-4); Specific Gravity Urine 1.019 (1.000-1.030); Urobilinogen Urine Negative (Negative); WBC Urine Automated >30 /hpf (0-5)
--- NOTE | 2019-08-20 07:00 | CT Scan Report ---
CT chest wo con CT DOSE: 388.28 mGy.cm CLINICAL HISTORY: 69 years-old Male with hypoxia. Acute hypoxia TECHNIQUE: Multiaxial CT images of the chest were performed without contrast. A dose lowering techni que was utilized adhering to the principles of ALARA. COMPARISON: CTA of the chest 07/01/2019, 06/25/2019 FINDINGS: Heart is upper limits of normal in size. No pericardial effusion. Mild coronary artery calcifications . Unremarkable thyroid. Mild to moderate calcified plaque of the thoracic aorta. No thoracic aortic a neurysm. Dilation of the main pulmonary artery measures up to 3.6 cm. Mild enlarged 2.0 x 1.0 cm subc arinal lymph node with central fatty hilum, likely physiologic is unchanged. Calcified right hilar ly mph nodes. No new adenopathy. Advanced emphysema. No pneumothorax or pleural effusion. Chronic fibrotic changes are most pronounced in the lung bases. Bronchial wall thickening suggests chronic bronchitis. 4 mm fissural nodule adjac ent to the superior aspect of the right major fissure is likely physiologic. The previously noted sub pleural 4 mm solid nodule of the superior segment right lower lobe is not appreciated on today's stud y. 4 mm solid nodule of the left upper lobe, image 128 series 4 is unchanged. Unchanged 4 mm solid no dule of the superior segment right lower lobe. There is resolution of the previously described nodula r and patchy consolidative opacities of the right lung base, most pronounced within the dependent rig ht middle lobe. No overt pulmonary edema or new airspace consolidation typical for pneumonia. Scatter ed calcified granulomata of the lungs. Central airways are patent. No acute processes of the imaged upper abdomen. Scattered calcified granulomata of the spleen. Mildly contracted gallbladder. Soft tissues are unremarkable. Degenerative changes of the shoulders and spi ne. IMPRESSION: 1. No acute intrathoracic abnormality. 2. Resolution of the previously described consolidative opacities of the right lung base compatible w ith resolved pneumonia. 3. Advanced emphysema with chronic bibasilar fibrotic changes. 4. There are a few scattered bilateral solid pulmonary nodules redemonstrated measuring up to 4 mm wh ich are unchanged from comparison. 5. Probable pulmonary artery hypertension. 6. Prior granulomatous disease. Please refer to below summary of Fleischner criteria recommendations for follow-up of incidental CT n odules [place], Guidelines for management of small pulmonary nodules detected on CT scans: A sta tement from the Fleischner Society, Radiology 237: [id number].) SOLID NODULES Multiple nodules size: <6 mm * Low risk patients: no routine follow-up * high risk patients: optional CT at 12 months Note: newly detected indeterminate nodule in persons 35 years of age or older. * Low risk patients: minimal or absent history of smoking and/or other known risk factors * high risk patients: history of smoking or of other known risk factors (e.g. first degree relative with lung cancer, or exposure to asbestos, radon, uranium) * if a nodule up to 8 mm is partly solid or is ground glass further follow-up is required after 24 m onths to exclude possible slow growing adenocarcinoma (MACHO) The above report was generated using voice recognition software. It may contain grammatical, syntax o r spelling errors. ACT 112: Negative or not required by law. Electronically signed by: Nicholas Cr M.D. 08/20/2019 6:58 AM
[2019-08-20] MEDS: ALBUT/IPRATROP 3MG/0.5MG NEB 3 ML VIAL NEB SCH ×4 (07:11→19:19)
--- NOTE | 2019-08-20 08:01 | Hospitalist Progress Note ---
Date of Service August 20, 2019 Assessment & Plan (1) Acute on chronic respiratory failure with hypoxia: (2) Basal pneumonia of both lungs: (3) COPD exacerbation: This is a 69-year-old male with significant PMH for chronic hypoxemic respiratory failure on 3 L of O2, emphysema, HTN, PTSD, GERD presents to ED secondary to shortness of breath with exertion and hypoxia x2 days. In ED he remained hemodynamically stable; however he was hypoxic requiring increased O2 requirements. He also desaturated with ambulation. Lab work revealed WBC 9.35, H&H 12.2 and 37.7, platelet 157, K3.8, BUN 14, creatinine 1.09, glucose 100, troponin WNL. Chest x-ray consistent with dependent airspace opacities which could represent scarring/atelectasis, correlate clinically for evidence of superimposed infectious/inflammatory pneumonitis. In ED he received IV azithromycin and Rocephin along with nebulizer treatment. His symptoms have improve since arrival and has good air exchange without wheezing on my exam. This is patient's third hospitalization since June 2019 for COPD exacerbation and presumed pneumonia. Cannot rule out HCAP, last discharged 07/06/19. Admit to PCU IV methylprednisolone 40 mg 3 times daily ( pt with allergy to prednisone but can tolerate methylprednisolone) IV cefepime, azithromycin and Flagyl for broad-spectrum coverage (cover for HCAP and aspiration given previous RML infiltrate) obtain CT scan chest w/o contrast CT chest - obtained - no pna (shows resolution of prior pna and empysema) - will de-escalate Abx sputum culture - pending, procalcitonin wnl Influenza - negative BIOFIRE panel not available at this time Pulmonary toilet with routine DuoNeb, incentive spirometry Consulted pulmonary medicine due to freq exac - appreciate their input 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 Price at [facility]) - not yet received (4) Chest pain: Doubt ACS EKG reviewed, normal sinus rhythm no ST or T wave changes Trended troponin WNL Chest pain reproducible on exam and worsens with cough EKG repeated this a.m. 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 Discussed CT chest findings, prior pna resolved, emphysema. Records requested from pulmonology [place] [facility], Dr. Price - not received. Pulmonology consulted while inpt. Review of Systems Review of Systems: All systems reviewed & are unremarkable except as noted in HPI & below Constitutional: no fever and no chills Respiratory: + cough and + dyspnea Cardiovascular: no chest pain and no palpitations Gastrointestinal: no abdominal pain, no nausea and no vomiting Physical Exam Physical Exam: Constitutional: Elderly male in NAD, sitting up in bed, on NC Head: Normocephalic, Atraumatic Eyes: PERRL, EOMI, conjunctivae normal, anicteric sclerae ENMT: external ear and nose normal, oropharynx normal Neck: trachea midline, no thyromegaly normal visual inspection Respiratory: On O2 via NC, normal respiratory effort, lungs sounds diminished, no wheeze, rales, rhonchi noted. Normal insp/exp effort, no accessory muscle use Cardiovascular: RRR, no murmur, no edema Vessels: no JVD or carotid bruit Chest: normal inspection of chest, L sided parasternal CP reproducible on exam, no erythema Abdomen: normal bowel sounds, soft, nontender, nondistended Musculoskeletal: no cyanosis or clubbing, extremities motor strength 5/5, moves extremities spontaneously Skin: no rashes, warm and dry normal turgor Neurologic: PERRL, EOMI, accommodation nl, no face palsy, no dysarthria CN's II-XI intact bilaterally and moves all extremities Psychiatric: A+Ox3, euthymic affect Results & Data ([facility]) Vital Signs (Past 12 Hours) Vital Signs Temp Pulse Resp BP Pulse Ox 08/20/19 07:13 64 18 95 08/20/19 07:07 37 C 63 18 128/74 92 08/20/19 03:20 36.6 C 73 19 136/79 94 08/19/19 23:58 36.4 C L 73 20 133/74 92 Laboratory Results 03/12/20 03/12/20 03/12/20 Range/Units 03:20 02:56 02:56 WBC 7.73 (4.8-10.8) K/uL RBC 4.15 L (4.7-6.1) M/uL Hgb 11.9 L (14.0-18.0) g/dL Hct 37.8 L (42-52) % MCV 91.1 (80-100) fL MCH 28.7 (25-34) pg MCHC 31.5 L (32-36) g/dL RDW Std Deviation 52.3 H (36.4-46.3) fL RDW Coeff of Ren 15.6 H (11.5-14.5) % Plt Count 143 (130-400) K/uL MPV 9.4 (7.4-10.4) fL Immature Gran % (Auto) % Neut % (Auto) % Lymph % (Auto) % Morris % (Auto) % Eos % (Auto) % Baso % (Auto) % Immature Gran # (Auto) (0.00-0.02) K/uL Neut # (Auto) (1.4-6.5) K/uL Lymph # (Auto) (1.2-3.4) K/uL Morris # (Auto) (0.11-0.59) K/uL Eos # (Auto) (0-0.5) K/uL Baso # (Auto) (0-0.2) K/uL PT (9.0-12.0) Seconds INR (0.9-1.1) APTT (21.0-31.0) Seconds PTT Ratio Sodium 137 (136-145) mmol/L Potassium 4.3 (3.5-5.1) mmol/L Chloride 106 (98-107) mmol/L Carbon Dioxide 27 (21-32) mmol/L Anion Gap 4.0 (3-11) BUN 13 (7-18) mg/dl Creatinine 1.27 (0.6-1.4) mg/dl Est Cr Clr Drug Dosing 56.7 ml/min Est GFR ( Amer) 66.4 Est GFR (Non-Af Amer) 57.3 BUN/Creatinine Ratio 9.9 L (10-20) Glucose 178 H (70-99) mg/dl Lactate (0.4-2.0) mmol/L Calcium 8.7 (8.5-10.1) mg/dl Phosphorus 2.8 (2.5-4.9) mg/dl Magnesium 2.1 (1.8-2.4) mg/dl Total Bilirubin (0.2-1) mg/dl AST (15-37) U/L ALT (12-78) U/L Alkaline Phosphatase (45-117) U/L Troponin I < 0.015 (0-0.045) ng/ml Total Protein (6.4-8.2) gm/dl Albumin (3.4-5.0) gm/dl Globulin (2.5-4.0) gm/dl Albumin/Globulin Ratio (0.9-2) Procalcitonin (0-0.5) ng/ml Urine Color Yellow Urine Appearance Cloudy A (Clear) Urine pH 5.0 (4.5-7.5) Ur Specific [place] 1.019 (1.000-1.030) Urine Protein Negative (Negative) Urine Glucose (UA) Negative (Negative) Urine Ketones Negative (Negative) Urine Blood Negative (Negative) Urine Nitrite Negative (Negative) Urine Bilirubin Negative (Negative) Urine Urobilinogen Negative (Negative) Ur Leukocyte Esterase 2+ H (Negative) Urine WBC (Auto) >30 H (0-5) /hpf Urine RBC (Auto) 0-4 (0-4) /hpf U Hyaline Cast (Auto) 1-5 (0-5) /lpf U Epithel Cells (Auto) 5-10 H (0-5) /lpf Urine Bacteria (Auto) Negative (Negative) Urine Yeast Budding A (None Prsent) Influenza Type A (PCR) (Neg) Influenza Type B (PCR) (Neg) 08/20/19 08/19/19 08/19/19 Range/Units 00:03 20:43 19:13 WBC 8.87 (4.8-10.8) K/uL RBC 4.08 L (4.7-6.1) M/uL Hgb 12.0 L (14.0-18.0) g/dL Hct 37.3 L (42-52) % MCV 91.4 (80-100) fL MCH 29.4 (25-34) pg MCHC 32.2 (32-36) g/dL RDW Std Deviation 52.3 H (36.4-46.3) fL RDW Coeff of Ren 15.6 H (11.5-14.5) % Plt Count 156 (130-400) K/uL MPV 9.1 (7.4-10.4) fL Immature Gran % (Auto) 0.2 % Neut % (Auto) 68.6 % Lymph % (Auto) 22.8 % Morris % (Auto) 7.2 % Eos % (Auto) 1.0 % Baso % (Auto) 0.2 % Immature Gran # (Auto) 0.02 (0.00-0.02) K/uL Neut # (Auto) 6.08 (1.4-6.5) K/uL Lymph # (Auto) 2.02 (1.2-3.4) K/uL Morris # (Auto) 0.64 H (0.11-0.59) K/uL Eos # (Auto) 0.09 (0-0.5) K/uL Baso # (Auto) 0.02 (0-0.2) K/uL PT (9.0-12.0) Seconds INR (0.9-1.1) APTT (21.0-31.0) Seconds PTT Ratio Sodium (136-145) mmol/L Potassium (3.5-5.1) mmol/L Chloride (98-107) mmol/L Carbon Dioxide (21-32) mmol/L Anion Gap (3-11) BUN (7-18) mg/dl Creatinine (0.6-1.4) mg/dl Est Cr Clr Drug Dosing ml/min Est GFR ( Amer) Est GFR (Non-Af Amer) BUN/Creatinine Ratio (10-20) Glucose (70-99) mg/dl Lactate 2.0 (0.4-2.0) mmol/L Calcium (8.5-10.1) mg/dl Phosphorus (2.5-4.9) mg/dl Magnesium (1.8-2.4) mg/dl Total Bilirubin (0.2-1) mg/dl AST (15-37) U/L ALT (12-78) U/L Alkaline Phosphatase (45-117) U/L Troponin I < 0.015 (0-0.045) ng/ml Total Protein (6.4-8.2) gm/dl Albumin (3.4-5.0) gm/dl Globulin (2.5-4.0) gm/dl Albumin/Globulin Ratio (0.9-2) Procalcitonin (0-0.5) ng/ml Urine Color Urine Appearance (Clear) Urine pH (4.5-7.5) Ur Specific [place] (1.000-1.030) Urine Protein (Negative) Urine Glucose (UA) (Negative) Urine Ketones (Negative) Urine Blood (Negative) Urine Nitrite (Negative) Urine Bilirubin (Negative) Urine Urobilinogen (Negative) Ur Leukocyte Esterase (Negative) Urine WBC (Auto) (0-5) /hpf Urine RBC (Auto) (0-4) /hpf U Hyaline Cast (Auto) (0-5) /lpf U Epithel Cells (Auto) (0-5) /lpf Urine Bacteria (Auto) (Negative) Urine Yeast (None Prsent) Influenza Type A (PCR) (Neg) Influenza Type B (PCR) (Neg) 08/19/19 08/19/19 08/19/19 Range/Units 18:02 18:02 15:26 WBC (4.8-10.8) K/uL RBC (4.7-6.1) M/uL Hgb (14.0-18.0) g/dL Hct (42-52) % MCV (80-100) fL MCH (25-34) pg MCHC (32-36) g/dL RDW Std Deviation (36.4-46.3) fL RDW Coeff of Ren (11.5-14.5) % Plt Count (130-400) K/uL MPV (7.4-10.4) fL Immature Gran % (Auto) % Neut % (Auto) % Lymph % (Auto) % Morris % (Auto) % Eos % (Auto) % Baso % (Auto) % Immature Gran # (Auto) (0.00-0.02) K/uL Neut # (Auto) (1.4-6.5) K/uL Lymph # (Auto) (1.2-3.4) K/uL Morris # (Auto) (0.11-0.59) K/uL Eos # (Auto) (0-0.5) K/uL Baso # (Auto) (0-0.2) K/uL PT (9.0-12.0) Seconds INR (0.9-1.1) APTT (21.0-31.0) Seconds PTT Ratio Sodium (136-145) mmol/L Potassium (3.5-5.1) mmol/L Chloride (98-107) mmol/L Carbon Dioxide (21-32) mmol/L Anion Gap (3-11) BUN (7-18) mg/dl Creatinine (0.6-1.4) mg/dl Est Cr Clr Drug Dosing ml/min Est GFR ( Amer) Est GFR (Non-Af Amer) BUN/Creatinine Ratio (10-20) Glucose (70-99) mg/dl Lactate (0.4-2.0) mmol/L Calcium (8.5-10.1) mg/dl Phosphorus (2.5-4.9) mg/dl Magnesium 2.2 (1.8-2.4) mg/dl Total Bilirubin (0.2-1) mg/dl AST (15-37) U/L ALT (12-78) U/L Alkaline Phosphatase (45-117) U/L Troponin I (0-0.045) ng/ml Total Protein (6.4-8.2) gm/dl Albumin (3.4-5.0) gm/dl Globulin (2.5-4.0) gm/dl Albumin/Globulin Ratio (0.9-2) Procalcitonin < 0.05 (0-0.5) ng/ml Urine Color Urine Appearance (Clear) Urine pH (4.5-7.5) Ur Specific [place] (1.000-1.030) Urine Protein (Negative) Urine Glucose (UA) (Negative) Urine Ketones (Negative) Urine Blood (Negative) Urine Nitrite (Negative) Urine Bilirubin (Negative) Urine Urobilinogen (Negative) Ur Leukocyte Esterase (Negative) Urine WBC (Auto) (0-5) /hpf Urine RBC (Auto) (0-4) /hpf U Hyaline Cast (Auto) (0-5) /lpf U Epithel Cells (Auto) (0-5) /lpf Urine Bacteria (Auto) (Negative) Urine Yeast (None Prsent) Influenza Type A (PCR) Neg for Influ A (Neg) Influenza Type B (PCR) Neg for Influ B (Neg) 08/19/19 08/19/19 08/19/19 Range/Units 15:26 15:26 15:26 WBC 9.35 (4.8-10.8) K/uL RBC 4.17 L (4.7-6.1) M/uL Hgb 12.2 L (14.0-18.0) g/dL Hct 37.7 L (42-52) % MCV 90.4 (80-100) fL MCH 29.3 (25-34) pg MCHC 32.4 (32-36) g/dL RDW Std Deviation 52.1 H (36.4-46.3) fL RDW Coeff of Ren 15.7 H (11.5-14.5) % Plt Count 157 (130-400) K/uL MPV 9.3 (7.4-10.4) fL Immature Gran % (Auto) 0.2 % Neut % (Auto) 71.8 % Lymph % (Auto) 19.5 % Morris % (Auto) 7.6 % Eos % (Auto) 0.7 % Baso % (Auto) 0.2 % Immature Gran # (Auto) 0.02 (0.00-0.02) K/uL Neut # (Auto) 6.71 H (1.4-6.5) K/uL Lymph # (Auto) 1.82 (1.2-3.4) K/uL Morris # (Auto) 0.71 H (0.11-0.59) K/uL Eos # (Auto) 0.07 (0-0.5) K/uL Baso # (Auto) 0.02 (0-0.2) K/uL PT 10.9 (9.0-12.0) Seconds INR 1.0 (0.9-1.1) APTT 23.2 (21.0-31.0) Seconds PTT Ratio 0.8 Sodium 138 (136-145) mmol/L Potassium 3.8 (3.5-5.1) mmol/L Chloride 105 (98-107) mmol/L Carbon Dioxide 29 (21-32) mmol/L Anion Gap 4.0 (3-11) BUN 14 (7-18) mg/dl Creatinine 1.09 (0.6-1.4) mg/dl Est Cr Clr Drug Dosing 66.0 ml/min Est GFR ( Amer) 79.8 Est GFR (Non-Af Amer) 68.9 BUN/Creatinine Ratio 12.4 (10-20) Glucose 100 H (70-99) mg/dl Lactate (0.4-2.0) mmol/L Calcium 8.9 (8.5-10.1) mg/dl Phosphorus (2.5-4.9) mg/dl Magnesium (1.8-2.4) mg/dl Total Bilirubin 0.4 (0.2-1) mg/dl AST 21 (15-37) U/L ALT 21 (12-78) U/L Alkaline Phosphatase 71 (45-117) U/L Troponin I < 0.015 (0-0.045) ng/ml Total Protein 6.7 (6.4-8.2) gm/dl Albumin 3.3 L (3.4-5.0) gm/dl Globulin 3.4 (2.5-4.0) gm/dl Albumin/Globulin Ratio 1.0 (0.9-2) Procalcitonin (0-0.5) ng/ml Urine Color Urine Appearance (Clear) Urine pH (4.5-7.5) Ur Specific [place] (1.000-1.030) Urine Protein (Negative) Urine Glucose (UA) (Negative) Urine Ketones (Negative) Urine Blood (Negative) Urine Nitrite (Negative) Urine Bilirubin (Negative) Urine Urobilinogen (Negative) Ur Leukocyte Esterase (Negative) Urine WBC (Auto) (0-5) /hpf Urine RBC (Auto) (0-4) /hpf U Hyaline Cast (Auto) (0-5) /lpf U Epithel Cells (Auto) (0-5) /lpf Urine Bacteria (Auto) (Negative) Urine Yeast (None Prsent) Influenza Type A (PCR) (Neg) Influenza Type B (PCR) (Neg) Medications Administered Current Inpatient Medications Acetaminophen (Tylenol) 650 mg PO Q4H PRN PRN Reason: Pain or Fever Stop: 09/18/19 19:06 Al Hydrox/Mg Hydrox/Simethicone (Maalox) 15 ml PO Q4H PRN PRN Reason: Dyspepsia Stop: 09/18/19 19:06 Albuterol (Duoneb) 3 ml NEB QIDR [facility] Stop: 09/18/19 19:06 Last Admin: 08/20/19 07:11 Dose: 3 ml Documented by: Buspirone HCl (Buspar) 5 mg PO HS [facility] Stop: 09/18/19 20:59 Last Admin: 08/19/19 21:07 Dose: 5 mg Documented by: Enoxaparin Sodium (Lovenox) 40 mg SQ Q24H [facility] Stop: 09/18/19 20:59 Last Admin: 08/19/19 21:06 Dose: 40 mg Documented by: Fluticasone/Vilanterol (Breo Ellipta 100/25 Mcg Inh) 1 puffs INH DAILY [facility] Stop: 09/19/19 08:59 Guaifenesin (Organidin Nr) 400 mg PO BID [facility] Stop: 09/18/19 20:59 Last Admin: 08/19/19 21:07 Dose: 400 mg Documented by: Azithromycin 500 mg/ Dextrose 255 mls @ 125 mls/hr IV DAILY@1800 [facility] Stop: 08/27/19 17:59 Cefepime HCl 2,000 mg/ Syringe 20 mls @ 5 mls/min IV Q8H [facility]; Protocol Stop: 08/26/19 19:59 Last Admin: 08/20/19 03:27 Dose: 5 mls/min Documented by: Metronidazole (Flagyl) 500 mg in 100 mls @ 100 mls/hr IV Q8H [facility] Stop: 08/26/19 19:59 Last Infusion: 08/20/19 04:28 Dose: Infused Documented by: Methylprednisolone 40 mg/ (Syringe) 0.64 mls @ 1.5 mls/min IV TID [facility] Stop: 09/18/19 20:59 Last Admin: 08/19/19 21:05 Dose: 1.5 mls/min Documented by: Magnesium Hydroxide (Milk Of Magnesia) 30 ml PO Q12H PRN PRN Reason: Constipation Stop: 09/18/19 19:06 Miscellaneous Information (Consult) 1 ea N/A UD PRN PRN Reason: Consult Stop: 09/18/19 19:23 Miscellaneous Information (Cefepime Consult Active) 1 ea N/A UD PRN PRN Reason: Consult Stop: 09/18/19 19:24 Ondansetron HCl (Zofran) 4 mg IV Q6H PRN PRN Reason: Nausea Stop: 09/18/19 19:06 Pantoprazole Sodium (Protonix) 40 mg PO BID [facility] Stop: 09/18/19 20:59 Last Admin: 08/19/19 21:07 Dose: 40 mg Documented by: Polyethylene Glycol (Miralax Powder Packet) 17 gm PO DAILY PRN PRN Reason: Constipation Stop: 09/18/19 19:06 Sertraline HCl (Zoloft) 200 mg PO HS [facility] Stop: 09/18/19 20:59 Last Admin: 08/19/19 21:07 Dose: 200 mg Documented by: Trazodone HCl (Desyrel) 150 mg PO HS [facility] Stop: 09/18/19 20:59 Last Admin: 08/19/19 21:19 Dose: 150 mg Documented by: Umeclidinium [place] (Incruse Ellipta) 1 puffs INH QPM [facility] Stop: 09/18/19 20:59 Last Admin: 08/19/19 21:06 Dose: 1 puffs Documented by: Vitamin D (Vitamin D3) 1,000 units PO DAILY [facility] Stop: 09/19/19 08:59
[2019-08-20] MEDS: methylPREDNISolone 40 MG in SYRINGE 0 ML IV SCH (08:04)
[2019-08-20] MEDS: PANTOprazole 40 MG TAB PO SCH ×2 (08:04→20:00)
[2019-08-20] MEDS: CHOLECALCIFEROL 1,000 UNITS 25 MCG TAB PO SCH (08:04)
[2019-08-20] MEDS: guaiFENesin 200 MG TAB PO SCH ×2 (08:04→20:01)
[2019-08-20] MEDS: FLUTICASONE/VILANTEROL 100/25MCG 14 PUFFS/INHALER INH SCH (08:04)
--- NOTE | 2019-08-20 11:23 | Pulmonary Consultation ---
Date of Consultation August 20, 2019 Assessment & Plan (1) Acute on chronic respiratory failure with hypoxemia: Patient has a chart history of COPD. I do not have any pulmonary function testing on him. He certainly has characteristics of COPD including an extensive smoking history and severe emphysema noted on his CT of his chest. He also has sequelae of severe COPD including chronic hypoxemic respiratory failure and chronic bronchitis. He also likely has some mild degree of WHO class III pulmonary hypertension. He is having some chest pain and I would recommend a thorough ischemia evaluation with a possible echo and a stress test as an outpatient. I do not think that he is in a significant COPD exacerbation during this hospitalization. I do not think that he warrants cefepime, Flagyl and azithromycin. He is not infected. He does not have pneumonia. His infiltrates have in fact resolved since his last CAT scan. I would recommend obtaining a morning ABG to evaluate for the possibility of hypercapnia and see if he would be a candidate for noninvasive ventilation. The patient did indicate to me that he is very claustrophobic and would likely not wear a BiPAP if indicated. I also recommend pulmonary rehab as an outpatient and follow-up with his assistant kitchen manager. We will certainly be happy to see him in our clinic if you would prefer to be seen by us in [place]. I would not give him more than 5 days of prednisone. I have decreased him to 40 mg p.o. prednisone. Maintain sats of 88 to 92%. Avoid hyperoxia in this gentleman who has a tendency to go hypercapnic. In addition to his Symbicort. I would stop his Spiriva and add him on a nebulized long-acting muscarinic antagonist such as Yupelri. Would defer to his outpatient assistant kitchen manager in regards to starting him on bed bug exterminator azithromycin or Roflumilast therapy. (2) Chest pain: (3) COPD exacerbation: History of Present Illness Reason for Consultation: Recurrent COPD exacerbation Requesting Physician: Hospitalist Attending Physician: Mendel Moreno MD History of Present Illness 69-year-old male with a past medical history of COPD, chronic hypoxemic respiratory failure on 3 L of oxygen for the last 4 years, tobacco abuse, PTSD, hypertension who presented to the hospital due to shortness of breath x3 days. Patient notes occasional chest pain as well that is sharp and can last for an entire day. He notes episodes of "pneumonia" in the last 2 years. Pulmonary is asked to evaluate the patient for 3 recent COPD exacerbations. Patient notes that he has been on Symbicort and Spiriva for the last 5 years. He has a assistant kitchen manager that he sees in [place]. He also saw Dr. Marie here based on records from all scripts. Am not able to find any history of pulmonary function testing. He had an echo in 2014 which was generally unremarkable. He denies any fevers, chills or night sweats. He does have a cough that is occasionally productive in the morning. CT of the chest performed on 08/19/2019 demonstrates no acute abnormalities and improvement in previously seen consolidative opacities in the right lung base. There is very severe emphysema. Pulmonary artery is mildly enlarged. Tobacco history includes 42 years of smoking quit 4 to 5 years ago. Smoked 2 packs/day. He was deployed to [place]. Has some agent orange exposure. Also had numerous other jobs. Lives with his . Patient was started on IV methylprednisone. He was also started on cefepime azithromycin and Flagyl. Procalcitonin is negative. Influenza negative. Bio fire panel testing has not been checked. Troponin is within normal limits. EKG with no obvious ischemia. Allergies Allergy/AdvReac Type Severity Reaction Status Date / Time bee venom protein (honey bee) Allergy Severe ANAPHYLAXIS Verified 08/19/19 15:19 amoxicillin Allergy Intermediate FACIAL Verified 08/19/19 15:19 SWELLING (EYES SWELLED SHUT) clavulanic acid Allergy Intermediate FACIAL Verified 08/19/19 15:19 SWELLING (EYES SWELLED SHUT) pneumococcal vaccine Allergy Intermediate SWELLING Verified 08/19/19 18:22 Khzvqwu-Mxo-Gwq Reductase Allergy Intermediate CPK'S GO Verified 08/19/19 18:22 Inhibitor THROUGH ROOF prednisone AdvReac Intermediate confusion Verified 08/19/19 18:22 and agitation Home Medications Home Medications Medication Instructions Recorded Confirmed Type Spiriva with HandiHaler 1 cap INHALATION QPM 04/08/18 08/19/19 History buspirone 5 mg PO HS 04/08/18 08/19/19 History cetirizine 10 mg PO DAILY PRN 04/08/18 08/19/19 History omeprazole 20 mg PO BID 04/08/18 08/19/19 History sertraline 200 mg PO HS 04/08/18 08/19/19 History trazodone 150 mg PO HS 04/08/18 08/19/19 History albuterol sulfate 2 puff INHALATION Q6H PRN 07/04/18 08/19/19 History albuterol sulfate 2.5 mg INHALATION QID PRN 07/04/18 08/19/19 History budesonide-formoterol [Symbicort] 2 puff INHALATION BID 08/22/18 08/19/19 History epinephrine [EpiPen] 0.3 mg IM DIRECTED PRN 08/22/18 08/19/19 History guaifenesin 400 mg PO BID 08/22/18 08/19/19 History azithromycin 250 mg PO MOWEFR 08/19/19 08/19/19 History cholecalciferol (vitamin D3) 1,000 unit PO DAILY 08/19/19 08/19/19 History [Vitamin D3] Patient History Medical History 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) Depression Emphysema/COPD GERD (gastroesophageal reflux disease) (Chronic) History of tobacco abuse (Chronic) HTN (hypertension) (Chronic) Kidney stones (Resolved) Osteoarthritis (Chronic) Pneumonia (Resolved) PTSD (post-traumatic stress disorder) PTSD (post-traumatic stress disorder) (Chronic) Thrombophlebitis arm (Resolved) Surgical History H/O hernia repair History of appendectomy (Resolved) History of extraction of renal calculus (Resolved) History of tonsillectomy (Resolved) Loss of teeth due to extraction (Chronic) S/P arthroscopic surgery of right knee Family History Mother Colon cancer Father FH: kidney cancer Other Cancer Social History Preferred Language: Polish Communication Ability: Effective Camp Counselor Required: No Beliefs That Will Affect Care: None marital status: Current Living Situation: Spouse Current Living Situation Comment: lives with spouse 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 No apparent distress. Eyes: PERRL, conjunctivae normal, anicteric sclerae ENMT: external ear and nose normal, oropharynx normal Neck: trachea midline, no thyromegaly Respiratory: normal respiratory effort, lungs clear to auscultation Cardiovascular: RRR, no murmur, no edema Gastrointestinal (Abdomen): normal bowel sounds, soft, nontender, no hepatosplenomegaly Musculoskeletal: no cyanosis or clubbing, extremities motor strength 5/5 Skin: normal turgor Senile purpura noted Neurologic: PERRL, EOMI, accommodation nl, no face palsy, no dysarthria Psychiatric: A+Ox3, euthymic affect Results & Data ([facility]) Vital Signs (Past 12 Hours) Vital Signs Temp Pulse Resp BP Pulse Ox 08/20/19 07:13 64 18 95 08/20/19 07:07 98.6 F 63 18 128/74 92 08/20/19 03:20 97.9 F 73 19 136/79 94 08/19/19 23:58 97.5 F L 73 20 133/74 92 PG Care Time/CCT Total # of Minutes Spent Total Time Spent with Patient: Total time spent is greater than 50% in coordination of care (as documented) at patient's floor/unit and/or counseling patient: [place] [address] Initial Inpt Care Lvl 3 Patient Type New Diagnoses Acute on chronic respiratory failure with hypoxemia J96.21 Chest pain R07.9 COPD exacerbation J44.1
--- NOTE | 2019-08-20 14:33 | Electrocardiogram Report ---
Test Reason : Blood Pressure : / mmHG Vent. Rate : 061 BPM Atrial Rate : 061 BPM P-R Int : 156 ms QRS Dur : 074 ms QT Int : 440 ms P-R-T Axes : 040 -16 048 degrees QTc Int : 442 ms Normal sinus rhythm Normal ECG When compared with ECG of 19-AUG-2019 15:17, No significant change was found Confirmed by Cristiano Allen ([id number]) on 08/20/2019 2:33:10 PM Referred By: REFERRED SELF Confirmed By:Cristiano Allen
--- NOTE | 2019-08-20 14:47 | Electrocardiogram Report ---
Test Reason : Blood Pressure : / mmHG Vent. Rate : 065 BPM Atrial Rate : 065 BPM P-R Int : 154 ms QRS Dur : 070 ms QT Int : 436 ms P-R-T Axes : 035 -11 055 degrees QTc Int : 453 ms Normal sinus rhythm Normal ECG When compared with ECG of 19-AUG-2019 16:19, No significant change was found Confirmed by Cristiano Allen ([id number]) on 08/20/2019 2:46:55 PM Referred By: REFERRED SELF Confirmed By:Cristiano Allen
[2019-08-20] MEDS ORDERED: AZITHROMYCIN 500 MG in DEXTROSE 5% 250 ML IV SCH (18:00)
[2019-08-20] MEDS: TRAZODONE HCL 50 MG TAB PO SCH (20:00)
[2019-08-20] MEDS: SERTRALINE HCL 100 MG TABLET PO SCH (20:01)
[2019-08-20] MEDS: ENOXAPARIN INJ 40 MG/0.4 ML SYR SQ SCH (20:02)
[2019-08-20] MEDS: UMECLIDINIUM BROMIDE 62.5MCG/BLISTER 7 PUFFS/INHALER INH SCH (20:03)
[2019-08-21] MEDS ORDERED: methylPREDNISolone 4 MG TAB PO SCH
[2019-08-21 06:37] LABS: Allen Test Pos (Pos); Base Excess ABG 5.2 mEq/L (-9-1.8); HCO3 ABG 30 mmol/L (19-24); Oxygen Saturation ABG 93.5 % (90-95); PCO2 ABG 45 mmHg (35-46); PO2 ABG 67 mmHg (80-95); pH ABG 7.44 (7.35-7.45)
[2019-08-21] MEDS: ALBUT/IPRATROP 3MG/0.5MG NEB 3 ML VIAL NEB SCH ×4 (06:55→19:11)
[2019-08-21] MEDS: PANTOprazole 40 MG TAB PO SCH (08:08)
[2019-08-21] MEDS: CHOLECALCIFEROL 1,000 UNITS 25 MCG TAB PO SCH (08:08)
[2019-08-21] MEDS: guaiFENesin 200 MG TAB PO SCH (08:08)
[2019-08-21] MEDS: FLUTICASONE/VILANTEROL 100/25MCG 14 PUFFS/INHALER INH SCH (08:09)
[2019-08-21] MEDS ORDERED: predniSONE 20 MG TAB PO SCH (09:00)
[2019-08-21 09:12] LABS: BUN Creatinine Ratio 8.9 (10-20); Calcium 8.6 mg/dl (8.5-10.1); Creatinine Clr Calc Pharmacy 65.4 ml/min; Est GFR (Non-African American) 68.1; Phosphorus 3.2 mg/dl (2.5-4.9); Potassium 3.3 mmol/L (3.5-5.1)
[2019-08-21 09:16] LABS: Hematocrit (blood only) 34.3 % (42-52); Hemoglobin 11.1 g/dL (14.0-18.0); Mean Corpuscular Hemoglobin 29.6 pg (25-34); Mean Corpuscular Hgb Conc 32.4 g/dL (32-36); Mean Corpuscular Volume 91.5 fL (80-100); Mean Platelet Volume 9.7 fL (7.4-10.4); Platelet Count 143 K/uL (130-400); RDW Coefficient of Variation 15.7 % (11.5-14.5); Red Blood Count 3.75 M/uL (4.7-6.1); White Blood Count 10.39 K/uL (4.8-10.8)
[2019-08-21] MEDS ORDERED: POTASSIUM CHLORIDE 20 MEQ TABCR PO STA (09:18)
[2019-08-21] MEDS ORDERED: methylPREDNISolone 40 MG in SYRINGE 0 ML IV SCH (09:45)
--- NOTE | 2019-08-21 09:49 | Pulmonology Progress Note ---
Date of Service August 21, 2019 Assessment & Plan (1) Acute on chronic respiratory failure with hypoxemia: ABG does not demonstrate evidence of chronic hypercapnic respiratory failure. He would not actually qualify for noninvasive ventilation at this point. Would recommend an outpatient sleep study. Recommend pulmonary rehab and consideration of chronic azithromycin versus Roflumilast as an outpatient per the discretion of his blade boner. Additionally recommend discharging home on you Yupelri instead of spiriva. Would not recommend steroids for longer than 5 days total. Pulmonary will sign off. Please call with questions. Thanks. (2) Chest pain: (3) COPD exacerbation: Subjective Patient laying in bed sleeping. He is in no apparent distress. He does have a bit of a dry cough. No fevers. No chills. No chest pain. He notes that he is about 70% better since hospital admission. Physical Exam Constitutional: WD/WN, vitals as above Laying in bed with a nasal cannula in place. No apparent distress. Eyes: PERRL, conjunctivae normal, anicteric sclerae ENMT: external ear and nose normal, oropharynx normal Neck: trachea midline, no thyromegaly Respiratory: normal respiratory effort, lungs clear to auscultation Cardiovascular: RRR, no murmur, no edema Gastrointestinal (Abdomen): normal bowel sounds, soft, nontender, no hepatosplenomegaly Musculoskeletal: no cyanosis or clubbing, extremities motor strength 5/5 Skin: normal turgor Senile purpura noted Neurologic: PERRL, EOMI, accommodation nl, no face palsy, no dysarthria Psychiatric: A+Ox3, euthymic affect Results & Data ([facility]) Vital Signs (Past 12 Hours) Vital Signs Temp Pulse Resp BP Pulse Ox 08/21/19 07:53 98.2 F 74 18 115/62 96 08/21/19 06:55 66 18 92 08/21/19 03:21 97.5 F L 84 18 101/64 94 08/20/19 23:43 97.3 F L 88 18 113/70 94 PG Care Time/CCT Total # of Minutes Spent Total Time Spent with Patient: Total time spent is greater than 50% in coordination of care (as documented) at patient's floor/unit and/or counseling patient: Coding Level of Care Code 77058 Subseq Hosp Care Lvl 3 Diagnoses Acute on chronic respiratory failure with hypoxemia J96.21 Chest pain R07.9 COPD exacerbation J44.1
[2019-08-21] MEDS ORDERED: POTASSIUM CHLORIDE 20 MEQ TABCR PO SCH (13:00)
[2019-08-21] MEDS ORDERED: AZITHROMYCIN 250 MG TAB PO SCH (18:00)
--- NOTE | 2019-08-21 19:45 | Discharge Summary ---
Date of Service August 21, 2019 Admission HPI Per Admitting Provider This is a 69-year-old male with significant PMH for chronic hypoxemic respiratory failure on 3 L of O2, emphysema, HTN, PTSD, GERD presents to ED secondary to shortness of breath with exertion and hypoxia x2 days. Of s ignificance patient with 2 hospitalizations in the past 3 months. Initially was hospitalized 06/25 06/30 secondary to a COPD exacerbation and right middle lobe pneumonia treated with doxycycline. He was then rehospitalized on 07/01 to 07/06/2019 again secondary to COPD exacerbation treated with IV methylprednisolone, IV Rocephin and oral doxycycline. His symptoms improved and he was discharged home. He had been doing well until the past 2 days when he developed a productive cough of brown-yellow sputum, increasing shortness of breath with exertion and hypoxia. He has a pulse oximeter at home and was getting readings in the 70s today. He occasionally gets short of breath at rest. When he does get short of breath he complains of left-sided chest pain. It resolves with rest. Chest pain gets worse when he coughs, but is not active with respiration. He denies any fever, chills, sweats, lightheadedness, dizziness, hemoptysis, wheezing, palpitations, nausea, vomiting, abdominal pain, change in bowel or urinary habits. He has been eating and drinking well and appetite has been good. He denies any significant weight gain or loss or peripheral edema. He admits to being compliant with Symbicort twice a day and has been using his nebulizer once a day. He has not used his nebulizer with his increasing shortness of breath. He is also taking azithromycin 250 mg 3 times a week as well as Mucinex. He denies any coughing with meals or feel like he is having difficulty swallowing. He denies any sick contacts or recent travel. In ED he remained hemodynamically stable; however he was hypoxic requiring increased O2 requirements. He also desaturated with ambulation. Lab work revealed WBC 9.35, H&H 12.2 and 37.7, platelet 157, K3.8, BUN 14, creatinine 1.09, glucose 100, troponin WNL. Chest x-ray consistent with dependent airspace opacities which could represent scarring/atelectasis, correlate clinically for evidence of superimposed infectious/inflammatory pneumonitis. In ED he received IV azithromycin and Rocephin along with nebulizer treatment. His symptoms did improve. Admission Exam Per Admitting Provider Constitutional: Elderly male, WD/WN, vitals as above, NAD, sitting up in bed, pleasant, conversing easily Head: Normocephalic, Atraumatic Eyes: PERRL, conjunctivae normal, anicteric sclerae ENMT: external ear and nose normal, oropharynx normal Neck: trachea midline, no thyromegaly normal visual inspection Respiratory: On O2 via NC, normal respiratory effort, lung sounds somewhat diminished, but otherwise clear to auscultation, no wheeze, rales, rhonchi. no accessory muscle use Cardiovascular: RRR, no murmur, no edema Vessels: no JVD or carotid bruit Chest: normal inspection of chest, L sided parasternal CP reproducible on exam, no erythema Abdomen: normal bowel sounds, soft, nontender, nondistended Musculoskeletal: no LE edema b/l, moves extremities spontaneously Skin: no rashes, warm and dry normal turgor Neurologic: PERRL, EOMI, no face palsy, no dysarthria, moves extremities spontaneously Psychiatric: A+Ox3, euthymic affect Principal Diagnosis Acute on chronic resp. failure w/ hypoxia due to COPD exacerbation Discharge Exam Constitutional: Elderly male in NAD, sitting up in bed, on 3L NC Head: Normocephalic, Atraumatic Eyes: PERRL, EOMI, conjunctivae normal, anicteric sclerae ENMT: external ear and nose normal, oropharynx normal Neck: trachea midline, no thyromegaly normal visual inspection Respiratory: On O2 via NC, normal respiratory effort, improved air movement from previous exam, no wheeze, rales, rhonchi noted. no accessory muscle use Cardiovascular: RRR, no murmur, no edema Vessels: no JVD or carotid bruit Chest: normal inspection of chest, L sided parasternal CP reproducible on exam, no erythema Abdomen: normal bowel sounds, soft, nontender, nondistended Musculoskeletal: no cyanosis or clubbing, extremities motor strength 5/5, moves extremities spontaneously Skin: no rashes, warm and dry normal turgor Neurologic: PERRL, EOMI, accommodation nl, no face palsy, no dysarthria CN's II-XI intact bilaterally and moves all extremities Psychiatric: A+Ox3, euthymic affect Discharge Data Allergies Allergy/AdvReac Type Severity Reaction Status Date / Time bee venom protein (honey bee) Allergy Severe ANAPHYLAXIS Verified 08/19/19 15:19 amoxicillin Allergy Intermediate FACIAL Verified 08/19/19 15:19 SWELLING (EYES SWELLED SHUT) clavulanic acid Allergy Intermediate FACIAL Verified 08/19/19 15:19 SWELLING (EYES SWELLED SHUT) pneumococcal vaccine Allergy Intermediate SWELLING Verified 08/19/19 18:22 Noqzhcy-Xgj-Kqp Reductase Allergy Intermediate CPK'S GO Verified 08/19/19 18:22 Inhibitor THROUGH ROOF prednisone AdvReac Intermediate confusion Verified 08/19/19 18:22 and agitation Consultations 08/19/19 17:10 ED Decision to Admit Stat 08/19/19 19:07 Consult Case Management - Discharge Planning Routine Consult Pulmonology Routine Ordered Studies 08/19/19 18:11 CT chest wo con Urgent IMPRESSION: 1. No acute intrathoracic abnormality. 2. Resolution of the previously described consolidative opacities of the right lung base compatible with resolved pneumonia. 3. Advanced emphysema with chronic bibasilar fibrotic changes. 4. There are a few scattered bilateral solid pulmonary nodules redemonstrated measuring up to 4 mm which are unchanged from comparison. 5. Probable pulmonary artery hypertension. 6. Prior granulomatous disease. Hospital Course (1) Acute on chronic respiratory failure with hypoxia: (2) COPD exacerbation: This is a 69-year-old male with significant PMH for chronic hypoxemic respiratory failure on 3 L of O2, emphysema, HTN, PTSD, GERD presents to ED secondary to shortness of breath with exertion and hypoxia x2 days. In ED he remained hemodynamically stable; however he was hypoxic requiring increased O2 requirements. He also desaturated with ambulation. Lab work revealed WBC 9.35, H&H 12.2 and 37.7, platelet 157, K3.8, BUN 14, creatinine 1.09, glucose 100, troponin WNL. Chest x-ray consistent with dependent airspace opacities which could represent scarring/atelectasis, correlate clinically for evidence of superimposed infectious/inflammatory pneumonitis. In ED he received IV azithromycin and Rocephin along with nebulizer treatment. His symptoms have improve since arrival and has good air exchange without wheezing on my exam. This is patient's third hospitalization since June 2019 for COPD exacerbation and presumed pneumonia. On admission could not rule out HCAP, last discharged 07/06/19. IV methylprednisolone 40 mg 3 times daily ( pt with allergy to prednisone but can tolerate methylprednisolone) IV cefepime, azithromycin and Flagyl for broad-spectrum coverage on admission (cover for HCAP and aspiration given previous RML infiltrate) Goal O2 sats 88-92% given pt's COPD Obtained CT chest w/o contrast - no pna (shows resolution of prior pna and emphysema) - IV Abx stopped sputum culture ordered - sample not adequate, procalcitonin wnl Influenza - negative BIOFIRE panel not available at this time Pulmonary toilet with routine DuoNeb, incentive spirometry ABG obtained - does not demonstrate evidence of chronic hypercapnic respiratory failure. Pt would not actually qualify for noninvasive ventilation at this point. Records from pt's swatcher requested (Dr. Price at [facility]) and reviewed - pt seen on 07/21/2019, CT images from [facility] reviewed at that time. Pt has diagnosis of moderate COPD. During that visit pt was clinically back to his baseline and no medications changes were made. Consulted Pulmonary medicine due to freq exac - recommend pulmonary rehab, outpt sleep study and consider to stop Spiriva and add nebulized long-acting muscarinic antagonist such as Yupelri. Will send records from this visit to pt's PCP and swatcher, Dr. Price for review. 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 failure w/ hypoxia due to COPD exacerbation Activity: As commented below Non-emergency contact: Primary Care Provider and [employer] Veget[employer] Inspector Call non-emergency contact if: you have any medication questions Follow-up/Referrals: PT,DECLINED [Primary Care Provider] - Diet: Heart Healthy Addtl Attending Provider Instructions: Recommend to follow up with primary care doctor in 1 week and with your swatcher in next 1-2 weeks. Methylprednisolone will be provided for you on discharge (11 pills), please take 6 pills tomorrow (Monday 08/21) and 5 pills on Saturday on 08/22. You will be provided paper script for the rest of the medication taper. Take 4 pills following day (Saturday), then 3 pills (), then 2 (Sat) and then 1 pill (). We will send recommendations to your health care providers regarding your COPD management. Pending Studies at Discharge: No Stand-Alone Forms: My [facility] Manifest, Smoking Cessation Medications and DC Order Prescriptions: New methylprednisolone 4 mg Tablet 4 mg PO UD Qty: 11 RF: 0 Continued albuterol sulfate 2.5 mg /3 mL (0.083 %) Solution For Nebulization 2.5 mg inhalation QID PRN (Reason: Shortness Of Breath Or Wheezing) RF: 0 albuterol sulfate 90 mcg/actuation Hfa Aerosol Inhaler 2 puff INHALATION Q6H PRN (Reason: Shortness Of Breath Or Wheezing) RF: 0 buspirone 5 mg Tablet 5 mg PO HS RF: 0 cetirizine 10 mg Tablet 10 mg PO DAILY PRN (Reason: Allergy Symptoms) RF: 0 sertraline 100 mg Tablet 200 mg PO HS RF: 0 trazodone 150 mg Tablet 150 mg PO HS RF: 0 omeprazole 20 mg Capsule,Delayed Release(Dr/Ec) 20 mg PO BID RF: 0 Spiriva with HandiHaler 18 mcg Capsule, W/Inhalation Device 1 cap INHALATION QPM RF: 0 guaifenesin 200 mg Tablet 400 mg PO BID RF: 0 epinephrine [EpiPen] 0.3 mg/0.3 mL Auto-Injector 0.3 mg IM DIRECTED PRN (Reason: Allergic Reaction) RF: 0 budesonide-formoterol [Symbicort] 160-4.5 mcg/actuation Hfa Aerosol Inhaler 2 puff INHALATION BID RF: 0 cholecalciferol (vitamin D3) [Vitamin D3] 25 mcg (1,000 unit) Capsule 1,000 unit PO DAILY RF: 0 azithromycin 250 mg Tablet 250 mg PO MOWEFR RF: 0 Discharge Orders: Discharge Order (Routine); Ordered 08/21/19 Ordered By: Mendel Moreno Admission Data Admit Date/Time: 08/19/19 17:30 Attending Provider: Mendel Moreno Admit Provider: Mendel Moreno Primary Care Provider: PT,DECLINED Other Providers: Mendel Moreno ; Joshua Abel Other Interventions: Discharge Summary Assessment (RN) Last Done: 08/21/19 19:49 DC Date/Time DO NOT enter until pt leaves facility: 08/21/19 20:34
== END 2019-08-21 20:34 | disposition home or self-care (01) | DRG 190 ==
LOC: ED 14:41 → 2S 17:30
DX: I10 Essential (primary) hypertension; R07.9 Chest pain, unspecified; J96.21 Acute and chronic respiratory failure with hypoxia; J18.9 Pneumonia, unspecified organism; F32.9 Major depressive disorder, single episode, unspecified; K21.9 Gastro-esophageal reflux disease without esophagitis; F43.10 Post-traumatic stress disorder, unspecified; J44.1 Chronic obstructive pulmonary disease with (acute) exacerbation

== ENCOUNTER 2019-12-06 05:28 | Inpatient (IN) ==
[2019-12-06] MEDS ORDERED: ALBUT/IPRATROP 3MG/0.5MG NEB 3 ML VIAL NEB ONE (05:39)
[2019-12-06] MEDS ORDERED: TRAMADOL HCL 50 MG TABLET PO STA ×2 (05:39→21:23)
--- NOTE | 2019-12-06 05:44 | Emergency Department Note ---
Impression & Plan Acute on chronic respiratory failure with hypoxemia, Elevated troponin ED Provider Note Name: DAVID AVILEZ Age: 69 Sex: M Arrives Via: Ambulance Informant: Patient, EMS ED Provider: David Conti MD Chief Complaint: Shortness of breath Impression: Acute on Chronic Respiratory Failure with Hypoxemia Elevated Troponin Medical Decision Makin male with long history of COPD issues who's oxygen broke a few days ago arrives via EMS due to worsening shortness of breath. Evaluated at bedside and labs/nebs ordered as patient very tight lung sounds and consistent with COPD exacerbation. While reviewing vitals notes temp 37.8 and thus out of abundance of caution I asked patient to be placed in isolation while awaiting covid testing. Patient did seem to be breathing better on prolonged neb. To try and decrease number of gownings I opted to have cultures/lactate drawn with initial labs as well. CXR with bilateral congestion vs infiltrates. With fevers will treat with empiric abx. With stable BP and normal lactate does not appear he is septic shock. He has mildly low pH on vbg consistent with acute on chronic respiratory failure. Troponin positive though EKG without stemi and patient denies chest pain. This may be due to persistent hypoxia at home. Given no chest pain will defer anticoagulation to hospitalist as primary ACS seems less likely. Prior Medical Record and Triage/Nursing Notes reviewed by Me Additional history obtained from chart Differentials:Reactive airway disease, COVID, pneumonia, pneumothorax, COPD, CHF, infections, cardiac ischemia, pulmonary embolism, musculoskeletal, g astrointestinal, as well as other pathologies. Vital Signs: reviewed and remarkable for hypoxia, tachypnea, febrile Interventions: saline lock, duoneb 1 hr, nss bolus 1 L IV, tylenol 1gm PO Labs:Reviewed and remarkable for negative covid, positive trop Imaging:X ray results are stated below per my interpretation: Chest: 1 view: Bilateral congestion vs infiltrates EKG:Per My Interpretation: Indication Shortness of breath: NSR 94 bpm, qtc 432. New anterior/diffuse ST depressions compared to 08/20/19. No Ectopy. No STEMI. Cardiac/Tele Monitoring: Cardiac Monitoring: An Order was placed for continuous cardiac monitoring. The monitor shows a rate of 90 with a normal sinus rhythm. Consults:Dr Rachel Pedraza Hospitalist Plan: Disposition:Hospitalization. Condition: Fair Blood pressure:Normal.No Referral necessary Prescriptions:none PDMP: n/a History of Present Illness:69 / M with extensive COPD arrives for evaluation of shortness of breath. Patient chronically on 2 L NC O2 for respiratory issues and notes his machine brook 3 days ago. Breathing gradually worsening over last few days. Machine was fixed yesterday but breathing difficulty continued. Noted he started getting feeling of chest tightness at which point EMS contacted. O2 sats in 70s and he was given multiple albuterol puffs, 125mg IV solumedrol en route. Patient notes he is starting to feel a bit better. Exertion makes worse, rest makes better. Denies fevers, chills, chest pain, rashes, nausea, vomiting, abdominal pain, leg swelling, calf pain, nor other symptoms with this. Does note chronic back pain for which he uses tramadol and it is acting up from ambulance ride. Patient states that he has had no sick contacts, no travel, and no known Covid exposures. He has not been tested for covid. 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 ROS: See above HPI for pertinent positives & negatives. A total of 10 systems reviewed and were otherwise negative. Past Medical History:See Below Past Surgical History:See Below Family History:See Below Social History:See Below Home Medications:See Below Allergies:See Below Vitals:Blood Pressure: 112/58, Pulse 94, RR 26, T 37.8C, O2 90% on 4L NC Physical Exam: GENERAL: Patient is unwell appearing and in mild distress. EYES: No scleral icterus, unremarkable pupils. ENT: Mucous membranes moist, no nasal congestion. NECK: No masses appreciated, nomeningismus, trachea is midline. RESPIRATORY: Dyspneic with diffusely tight lung sounds and tight wheezing CARDIOVASCULAR: Regular rate and rhythm.No murmurs, rubs, gallops appreciated. GASTROINTESTINAL: Abdomen soft, non-tender, no peritonitis.Bowel sounds positive.No masses appreciated. BACK: No midline tenderness, no CVA tenderness EXTREMITIES: Normal motion all extremities, no cyanosis, no edema. NEUROLOGIC: Alert and oriented, no acute motor or sensory deficits, no focal weakness, cranial nerves grossly intact. SKIN: No rash, no jaundice, no diaphoresis. PSYCH: Appropriate GCS: 15 ED Course: Times/Reassessments: Breathing much improved post neb Critical Care: I have personally spent 40 minutes of critical care time in the direct management of this patient. Acute hypoxic respiratory failure requiring high flow oxygen and prolonged respiratory treatment. This was a life/limb threate dominick event. This 40 minutes is in excess of all separately billable procedures. David Conti MD Past Med/Surg History Medical History (Updated 12/06/19 @ 22:37 by Sanjeev Ramos MD) 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) Cirrhosis of liver COPD (chronic obstructive pulmonary disease) with emphysema (Chronic) Depression Emphysema/COPD GERD (gastroesophageal reflux disease) (Chronic) History of tobacco abuse (Chronic) HTN (hypertension) (Chronic) Kidney stones (Resolved) Osteoarthritis (Chronic) Pneumonia (Resolved) PTSD (post-traumatic stress disorder) (Chronic) Pulmonary nodules Surgical History H/O hernia repair History of appendectomy (Resolved) History of extraction of renal calculus (Resolved) History of tonsillectomy (Resolved) Loss of teeth due to extraction (Chronic) S/P arthroscopic surgery of right knee Family History Mother Colon cancer Father FH: kidney cancer Other Cancer Social History Preferred Language: Albanian Communication Ability: Effective Roll Former Required: No Beliefs That Will Affect Care: None marital status: Current Living Situation: Spouse Current Living Situation Comment: lives with spouse 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 Other Information That Helps Us Care for You: No Feels Safe at Home: Yes Safety Concerns: Feels Safe At This Time Smoking Status: Former smoker Tobacco Type: cigarettes ; Cigarettes Per Day: 40 pack year hx ; Do You Dip or Chew Tobacco: No ; Second Hand Exposure: No ; Tobacco Cessation Education Requested by Patient: No Hx Alcohol Use: No Hx Substance Use: No Allergies Allergies Allergy/AdvReac Type Severity Reaction Status Date / Time bee venom protein (honey bee) Allergy Severe ANAPHYLAXIS Verified 12/06/19 05:57 amoxicillin Allergy Intermediate FACIAL Verified 12/06/19 05:57 SWELLING (EYES SWELLED SHUT) clavulanic acid Allergy Intermediate FACIAL Verified 12/06/19 05:57 SWELLING (EYES SWELLED SHUT) pneumococcal vaccine Allergy Intermediate SWELLING Verified 12/06/19 05:57 Coeipsp-Muy-Rds Reductase Allergy Intermediate CPK'S GO Verified 12/06/19 05:57 Inhibitor THROUGH ROOF prednisone AdvReac Intermediate confusion Verified 12/06/19 05:57 and agitation Home Meds Home Medications Medication Instructions Recorded Confirmed Spiriva with HandiHaler 1 cap INHALATION QPM 04/08/18 12/06/19 buspirone 5 mg PO HS 04/08/18 12/06/19 cetirizine 10 mg PO DAILY PRN 04/08/18 12/06/19 omeprazole 20 mg PO BID 04/08/18 12/06/19 sertraline 200 mg PO HS 04/08/18 12/06/19 trazodone 150 mg PO HS 04/08/18 12/06/19 albuterol sulfate 2 puff INHALATION Q6H PRN 07/04/18 12/06/19 albuterol sulfate 2.5 mg INHALATION QID PRN 07/04/18 12/06/19 budesonide-formoterol [Symbicort] 2 puff INHALATION BID 08/22/18 12/06/19 epinephrine [EpiPen] 0.3 mg IM DIRECTED PRN 08/22/18 12/06/19 guaifenesin 400 mg PO BID 08/22/18 12/06/19 azithromycin 250 mg PO 3XWK 08/19/19 12/06/19 cholecalciferol (vitamin D3) 0 unit PO DAILY 08/19/19 12/06/19 [Vitamin D3] Results & Data (ED) Vital Signs Vital Signs - 24 hr 12/06/19 05:40 12/06/19 05:46 12/06/19 05:48 Temperature 37.8 C H Temperature Source Oral Pulse Rate 94 H Pulse Rate [Apical] Respiratory Rate 26 H Respiratory Effort / Characteristics Accessory Muscle Use Respiratory Depth Normal Blood Pressure 112/58 L Blood Pressure [Left Arm] Blood Pressure Mean 76 Blood Pressure Mean [Left Arm] Pulse Oximetry 82 L 90 90 Oxygen Delivery Method Nasal Cannula Nasal Cannula Nasal Cannula Oxygen Flow Rate 2 4 4 Sepsis Recent Fever Within 48 Hours Yes Sepsis Action Taken by Nursing Physician Notified 12/06/19 06:00 12/06/19 06:45 Temperature Temperature Source Pulse Rate Pulse Rate [Apical] 90 92 H Respiratory Rate 18 22 Respiratory Effort / Characteristics Non-Labored Spontaneous Respiratory Depth Blood Pressure Blood Pressure [Left Arm] 117/69 Blood Pressure Mean Blood Pressure Mean [Left Arm] 85 Pulse Oximetry 94 94 Oxygen Delivery Method Nasal Cannula Nebulizer Oxygen Flow Rate 5 Sepsis Recent Fever Within 48 Hours Sepsis Action Taken by Nursing Laboratory Data Result diagrams: 12/06/19 06:11 12/06/19 06:11 Lab Results 12/06/19 12/06/19 12/06/19 Range/Units 05:59 05:59 06:09 WBC (4.8-10.8) K/uL RBC (4.7-6.1) M/uL Hgb (14.0-18.0) g/dL Hct (42-52) % MCV (80-100) fL MCH (25-34) pg MCHC (32-36) g/dL RDW Std Deviation (36.4-46.3) fL RDW Coeff of Ren (11.5-14.5) % Plt Count (130-400) K/uL MPV (7.4-10.4) fL Immature Gran % (Auto) % Neut % (Auto) % Lymph % (Auto) % [place] % (Auto) % Eos % (Auto) % Baso % (Auto) % Neut # (Auto) (1.4-6.5) K/uL Lymph # (Auto) (1.2-3.4) K/uL [place] # (Auto) (0.11-0.59) K/uL Eos # (Auto) (0-0.5) K/uL Baso # (Auto) (0-0.2) K/uL Immature Gran # (Auto) (0.00-0.02) K/uL PT (9.0-12.0) Seconds INR (0.9-1.1) VBG pH (7.36-7.41) VBG pCO2 (38-50) mmHg VBG pO2 mmHg VBG HCO3 mmol/L VBG O2 Saturation % VBG Base Excess mEq/L Barometric Pressure mm/Hg Sodium (136-145) mmol/L Potassium (3.5-5.1) mmol/L Chloride (98-107) mmol/L Carbon Dioxide (21-32) mmol/L Anion Gap (3-11) BUN (7-18) mg/dl Creatinine (0.6-1.4) mg/dl Est Cr Clr Drug Dosing ml/min Est GFR ( Amer) Est GFR (Non-Af Amer) BUN/Creatinine Ratio (10-20) Glucose (70-99) mg/dl Lactate 0.5 (0.4-2.0) mmol/L Calcium (8.5-10.1) mg/dl Magnesium (1.8-2.4) mg/dl Troponin I (0-0.045) ng/ml COVID-19 PCR NEGATIVE (Negative) SARS-CoV-2 RNA (RT-PCR) Cancelled 12/06/19 12/06/19 12/06/19 Range/Units 06:11 06:11 06:11 WBC 9.28 (4.8-10.8) K/uL RBC 3.79 L (4.7-6.1) M/uL Hgb 10.6 L (14.0-18.0) g/dL Hct 34.1 L (42-52) % MCV 90.0 (80-100) fL MCH 28.0 (25-34) pg MCHC 31.1 L (32-36) g/dL RDW Std Deviation 47.8 H (36.4-46.3) fL RDW Coeff of Ren 14.5 (11.5-14.5) % Plt Count 180 (130-400) K/uL MPV 9.6 (7.4-10.4) fL Immature Gran % (Auto) 0.2 % Neut % (Auto) 71.2 % Lymph % (Auto) 17.7 % [place] % (Auto) 9.7 % Eos % (Auto) 1.1 % Baso % (Auto) 0.1 % Neut # (Auto) 6.61 H (1.4-6.5) K/uL Lymph # (Auto) 1.64 (1.2-3.4) K/uL [place] # (Auto) 0.90 H (0.11-0.59) K/uL Eos # (Auto) 0.10 (0-0.5) K/uL Baso # (Auto) 0.01 (0-0.2) K/uL Immature Gran # (Auto) 0.02 (0.00-0.02) K/uL PT 10.8 (9.0-12.0) Seconds INR 1.0 (0.9-1.1) VBG pH (7.36-7.41) VBG pCO2 (38-50) mmHg VBG pO2 mmHg VBG HCO3 mmol/L VBG O2 Saturation % VBG Base Excess mEq/L Barometric Pressure mm/Hg Sodium 140 (136-145) mmol/L Potassium 3.7 (3.5-5.1) mmol/L Chloride 106 (98-107) mmol/L Carbon Dioxide 29 (21-32) mmol/L Anion Gap 5.0 (3-11) BUN 18 (7-18) mg/dl Creatinine 1.29 (0.6-1.4) mg/dl Est Cr Clr Drug Dosing 63.1 ml/min Est GFR ( Amer) 65.1 Est GFR (Non-Af Amer) 56.2 BUN/Creatinine Ratio 13.9 (10-20) Glucose 110 H (70-99) mg/dl Lactate (0.4-2.0) mmol/L Calcium 8.4 L (8.5-10.1) mg/dl Magnesium 2.0 (1.8-2.4) mg/dl Troponin I 0.058 H* (0-0.045) ng/ml COVID-19 PCR (Negative) SARS-CoV-2 RNA (RT-PCR) 12/06/19 Range/Units 06:18 WBC (4.8-10.8) K/uL RBC (4.7-6.1) M/uL Hgb (14.0-18.0) g/dL Hct (42-52) % MCV (80-100) fL MCH (25-34) pg MCHC (32-36) g/dL RDW Std Deviation (36.4-46.3) fL RDW Coeff of Ren (11.5-14.5) % Plt Count (130-400) K/uL MPV (7.4-10.4) fL Immature Gran % (Auto) % Neut % (Auto) % Lymph % (Auto) % [place] % (Auto) % Eos % (Auto) % Baso % (Auto) % Neut # (Auto) (1.4-6.5) K/uL Lymph # (Auto) (1.2-3.4) K/uL [place] # (Auto) (0.11-0.59) K/uL Eos # (Auto) (0-0.5) K/uL Baso # (Auto) (0-0.2) K/uL Immature Gran # (Auto) (0.00-0.02) K/uL PT (9.0-12.0) Seconds INR (0.9-1.1) VBG pH 7.32 L (7.36-7.41) VBG pCO2 59 H (38-50) mmHg VBG pO2 64 mmHg VBG HCO3 29 mmol/L VBG O2 Saturation 89.8 % VBG Base Excess 2.3 mEq/L Barometric Pressure 727.1 mm/Hg Sodium (136-145) mmol/L Potassium (3.5-5.1) mmol/L Chloride (98-107) mmol/L Carbon Dioxide (21-32) mmol/L Anion Gap (3-11) BUN (7-18) mg/dl Creatinine (0.6-1.4) mg/dl Est Cr Clr Drug Dosing ml/min Est GFR ( Amer) Est GFR (Non-Af Amer) BUN/Creatinine Ratio (10-20) Glucose (70-99) mg/dl Lactate (0.4-2.0) mmol/L Calcium (8.5-10.1) mg/dl Magnesium (1.8-2.4) mg/dl Troponin I (0-0.045) ng/ml COVID-19 PCR (Negative) SARS-CoV-2 RNA (RT-PCR) Administered Medications Buspirone HCl (Buspar) 5 mg PO HS [facility] Stop: 01/05/20 20:59 Last Admin: 12/06/19 20:08 Dose: 5 mg Documented by: [id number] Enoxaparin Sodium (Lovenox) 40 mg SQ HS [facility] Stop: 01/05/20 20:59 Last Admin: 12/06/19 20:10 Dose: 40 mg Documented by: [id number] Guaifenesin (Organidin Nr) 400 mg PO BID [facility] Stop: 01/05/20 20:59 Last Admin: 12/06/19 20:09 Dose: 400 mg Documented by: [id number] Methylprednisolone 20 mg/ (Syringe) 0.32 mls @ 1.5 mls/min IV Q8 [facility] Stop: 01/05/20 13:59 Last Admin: 12/06/19 21:35 Dose: 1.5 mls/min Documented by: [id number] Admin: 12/06/19 13:58 Dose: 1.5 mls/min Documented by: [id number] Ioversol (Optiray 320 125ml) 118 ml IV ONCE PRN PRN Reason: Interaction Checking Stop: 12/10/19 09:28 Last Admin: 12/06/19 09:30 Dose: 118 ml Documented by: [id number] Pantoprazole Sodium (Protonix) 40 mg PO BID [facility]; Protocol Stop: 01/05/20 20:59 Last Admin: 12/06/19 20:09 Dose: 40 mg Documented by: [id number] Sertraline HCl (Zoloft) 200 mg PO [facility] Stop: 01/05/20 20:59 Last Admin: 12/06/19 20:08 Dose: 200 mg Documented by: [id number] Trazodone HCl (Desyrel) 150 mg PO [facility] Stop: 01/05/20 20:59 Last Admin: 12/06/19 20:13 Dose: 150 mg Documented by: [id number] Umeclidinium [place] (Incruse Ellipta) 1 puffs INH QPM [facility]; Protocol Stop: 01/05/20 20:59 Last Admin: 12/06/19 20:10 Dose: 1 puffs Documented by: [id number] Discontinued Medications Acetaminophen (Tylenol) 1,000 mg PO NOW STA Stop: 12/06/19 05:52 Last Admin: 12/06/19 06:05 Dose: 1,000 mg Documented by: [id number] Albuterol (Duoneb) 12 ml NEB ONE ONE Stop: 12/06/19 05:40 Last Admin: 12/06/19 05:56 Dose: 12 ml Documented by: [id number] Sodium Chloride (Nss 1000ml) 1,000 mls @ 999 mls/hr IV .Q1H1M ONE Stop: 12/06/19 06:51 Last Infusion: 12/06/19 07:57 Dose: 0 mls/hr Documented by: [id number] Admin: 12/06/19 06:05 Dose: 999 mls/hr Documented by: [id number] Levofloxacin/Dextrose (Levaquin/D5w) 750 mg in 150 mls @ 100 mls/hr IV NOW STA Stop: 12/06/19 08:32 Last Infusion: 12/06/19 08:58 Dose: 0 mls/hr Documented by: [id number] Admin: 12/06/19 07:26 Dose: 100 mls/hr Documented by: [id number] Furosemide 40 mg/ Syringe 4 mls @ 4 mls/min IV NOW ONE Stop: 12/06/19 17:46 Last Admin: 12/06/19 18:54 Dose: 4 mls/min Documented by: [id number] Potassium Chloride (Klor-Con M20) 20 meq PO NOW ONE Stop: 12/06/19 17:46 Last Admin: 12/06/19 18:54 Dose: 20 meq Documented by: [id number] Tramadol HCl (Ultram) 50 mg PO NOW STA Stop: 12/06/19 05:40 Last Admin: 12/06/19 06:05 Dose: 50 mg Documented by: [id number] Tramadol HCl (Ultram) 50 mg PO NOW STA Stop: 12/06/19 21:24 Last Admin: 12/06/19 21:34 Dose: 50 mg Documented by: [id number] Discharge Plan Visit Data *Final* Discharge Date/Time: 12/06/19 08:41 Chief Complaint: Respiratory Problems Stated Complaint: DIFFICULTY BREATHING ED Provider: David Conti Discharge Problem: Acute on chronic respiratory failure with hypoxemia, Elevated troponin Patient Disposition: Admitted As Inpatient Discharge Instructions Interventions: ED Discharge Assessment Last Done: 12/06/19 08:41
[2019-12-06] MEDS ORDERED: SODIUM CHLORIDE 0.9% 1000ML 1,000 ML IV ONE (05:51)
[2019-12-06] MEDS ORDERED: ACETAMINOPHEN 500 MG TAB PO STA (05:51)
[2019-12-06 06:29] LABS: Basophils # (auto) 0.01 K/uL (0-0.2); Basophils % (auto) 0.1 %; Eosinophils % (auto) 1.1 %; Hematocrit (blood only) 34.1 % (42-52); Hemoglobin 10.6 g/dL (14.0-18.0); Immature Granulocytes # (auto) 0.02 K/uL (0.00-0.02); Immature Granulocytes % (auto) 0.2 %; Lymphocytes # (auto) 1.64 K/uL (1.2-3.4); Lymphocytes % (auto) 17.7 %; Mean Corpuscular Hgb Conc 31.1 g/dL (32-36); Mean Platelet Volume 9.6 fL (7.4-10.4); Monocytes % (auto) 9.7 %; Neutrophils # (auto) 6.61 K/uL (1.4-6.5); Neutrophils % (auto) 71.2 %; Platelet Count 180 K/uL (130-400); RDW Coefficient of Variation 14.5 % (11.5-14.5); RDW Standard Deviation 47.8 fL (36.4-46.3); Red Blood Count 3.79 M/uL (4.7-6.1); White Blood Count 9.28 K/uL (4.8-10.8)
[2019-12-06 06:35] LABS: Base Excess VBG 2.3 mEq/L; Oxygen Saturation VBG 89.8 %; pH VBG 7.32 (7.36-7.41)
[2019-12-06 06:38] LABS: Prothrombin Time 10.8 Seconds (9.0-12.0)
--- NOTE | 2019-12-06 06:45 | XRay Report ---
XR chest 1V portable CLINICAL HISTORY: shortness of breath dyspnea COMPARISON STUDY: 08/19/2019 FINDINGS: Prominent interstitial changes throughout both hemithoraces. Mild increase in cardiac size. Pulmonary apices are clear. IMPRESSION: Developing congestive failure ACT 112: Negative or not required by law. The above report was generated using voice recognition software. It may contain grammatical, syntax or spelling errors. Electronically signed by: Tomer Villarreal M.D. 12/06/2019 6:43 AM
[2019-12-06 06:48] LABS: BUN Creatinine Ratio 13.9 (10-20); Calcium 8.4 mg/dl (8.5-10.1); Creatinine Clr Calc Pharmacy 63.1 ml/min; Est GFR (African American) 65.1; Est GFR (Non-African American) 56.2; Potassium 3.7 mmol/L (3.5-5.1)
[2019-12-06 07:00] LABS: Troponin I 0.058 ng/ml (0-0.045)
[2019-12-06] MEDS ORDERED: LEVOFLOXACIN/D5W 750 MG/150 ML BAG IV STA (07:03)
--- NOTE | 2019-12-06 08:07 | History & Physical Report ---
Date of Service December 06, 2019 Assessment & Plan (1) Acute on chronic respiratory failure with hypoxemia: Chronic hypoxic respiratory failure on home O2 2 LPM. Former smoker with severe COPD. Presents with dyspnea and worsening hypoxia with O2 sats as low as 64% at home. = acute on chronic hypoxic respiratory failure. O2 sats in ED as low as 87% on NC 5 LPM. Low grade fever. SARS-CoV-2 PCR negative. No apparent acute infiltrates per chest x-ray or CTA. Pulmonary embolism ruled out by CTA. ? mild CHF on CXR. Pro-BNP slightly elevated. Check echo. Levofloxacin + IV methylprednisolone for probable exacerbation of COPD. IV furosemide x 1 for possible CHF. Titrate supplemental O2. (2) Elevated troponin: No apparent history of ischemic heart disease. Pt complains of sharp anterior chest pain, pleuritic in nature. Troponin # 1 = 0.058, # 2 = 0.027. EKG shows NSR, incomplete RBBB, slight ST depression anterior leads. CTA negative for pulmonary embolism. Check echo. Slightly elevated troponin could be secondary to hypoxia. (3) Pulmonary nodules: Multiple sub-centimeter pulmonary nodules noted on CTA chest, stable compared to August 2019. Former smoker. Follow-up per guidelines. (4) Cirrhosis of liver: Cirrhosis of liver noted on CTA of chest. Need to review hepatic history. (5) COVID-19 ruled out: SARS-CoV-2 PCR negative. (6) DVT prophylaxis: SQ enoxaparin. Ambulate. (7) Discharge planning issues: Anticipated discharge to home. Primary Care and Pulmonary Medicine follow-up with [facility]. History of Present Illness Chief Complaint: shortness of breath Primary Care Provider: [facility] 69 YO male followed by [facility] for primary care. Also followed by [facility]. History of severe COPD on home O2 2 LPM and other problems as outlined below. He was in his usual state of fair health until 2 days prior to admission when he felt more dyspneic. O2 sats were 64% per his personal pulse oximeter. Is seemed like there was a problem with his oxygen concentrator. However, he continued to feel SOB once the concentrator seemed to be functioning properly. He required O2 at 6 LPM compared to usual 2 LPM. Came to the ED during the night because of persistent dypnea. No significant cough. No fever. No travel or sick contacts. Also experiencing sharp anterior chest pain, worse with deep inspiration. He attributes the chest pain to low O2 sats. Received nebulizer treatment in ED without much improvement of symptoms. Allergies Allergy/AdvReac Type Severity Reaction Status Date / Time bee venom protein (honey bee) Allergy Severe ANAPHYLAXIS Verified 12/06/19 05:57 amoxicillin Allergy Intermediate FACIAL Verified 12/06/19 05:57 SWELLING (EYES SWELLED SHUT) clavulanic acid Allergy Intermediate FACIAL Verified 12/06/19 05:57 SWELLING (EYES SWELLED SHUT) pneumococcal vaccine Allergy Intermediate SWELLING Verified 12/06/19 05:57 Lvgpvio-Uhp-Yml Reductase Allergy Intermediate CPK'S GO Verified 12/06/19 05:57 Inhibitor THROUGH ROOF prednisone AdvReac Intermediate confusion Verified 12/06/19 05:57 and agitation Home Medications Home Medications Medication Instructions Recorded Confirmed Type Spiriva with HandiHaler 1 cap INHALATION QPM 04/08/18 12/06/19 History buspirone 5 mg PO HS 04/08/18 12/06/19 History cetirizine 10 mg PO DAILY PRN 04/08/18 12/06/19 History omeprazole 20 mg PO BID 04/08/18 12/06/19 History sertraline 200 mg PO HS 04/08/18 12/06/19 History trazodone 150 mg PO HS 04/08/18 12/06/19 History albuterol sulfate 2 puff INHALATION Q6H PRN 07/04/18 12/06/19 History albuterol sulfate 2.5 mg INHALATION QID PRN 07/04/18 12/06/19 History budesonide-formoterol [Symbicort] 2 puff INHALATION BID 08/22/18 12/06/19 History epinephrine [EpiPen] 0.3 mg IM DIRECTED PRN 08/22/18 12/06/19 History guaifenesin 400 mg PO BID 08/22/18 12/06/19 History azithromycin 250 mg PO 3XWK 08/19/19 12/06/19 History cholecalciferol (vitamin D3) 0 unit PO DAILY 08/19/19 12/06/19 History [Vitamin D3] Past Med/Surg History Medical History (Updated 12/06/19 @ 22:37 by Sanjeev Ramos MD) 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) Cirrhosis of liver COPD (chronic obstructive pulmonary disease) with emphysema (Chronic) Depression Emphysema/COPD GERD (gastroesophageal reflux disease) (Chronic) History of tobacco abuse (Chronic) HTN (hypertension) (Chronic) Kidney stones (Resolved) Osteoarthritis (Chronic) Pneumonia (Resolved) PTSD (post-traumatic stress disorder) (Chronic) Pulmonary nodules Surgical History H/O hernia repair History of appendectomy (Resolved) History of extraction of renal calculus (Resolved) History of tonsillectomy (Resolved) Loss of teeth due to extraction (Chronic) S/P arthroscopic surgery of right knee Family History Mother Colon cancer Father FH: kidney cancer Other Cancer Social History Preferred Language: Finnish Communication Ability: Effective Satellite Manager Required: No Beliefs That Will Affect Care: None marital status: Current Living Situation: Spouse Current Living Situation Comment: lives with spouse current occupation: Retired [employer] Other Information That Helps Us Care for You: No Feels Safe at Home: Yes Safety Concerns: Feels Safe At This Time Smoking Status: Former smoker Tobacco Type: cigarettes ; Cigarettes Per Day: 40 pack year hx ; Do You Dip or Chew Tobacco: No ; Second Hand Exposure: No ; Tobacco Cessation Education Requested by Patient: No Hx Alcohol Use: No Hx Substance Use: No Review of Systems Constitutional: no fever and no weight loss Eyes: + worsening vision (gradual changes); no diplopia Ear, Nose, Mouth, Throat: no nasal congestion, no sinus pain/pressure and no sore throat Respiratory: as per Subjective / HPI Cardiovascular: + chest pain; no palpitations and no edema Gastrointestinal: no nausea, no vomiting, no constipation, no diarrhea/loose stools, no blood in stools and no melena Genitourinary: no dysuria and no hematuria Musculoskeletal: + joint pain Integumentary: no rash and no new lesions Neurologic: + headache(s) (occasional) Psychiatric: + anxiety Endocrine: no polydipsia and no polyuria Hematologic / Lymphatic: + easy bruising; no lymphadenopathy Physical Exam Constitutional: WD/WN, vitals as above no acute distress Eyes: PERRL, conjunctivae normal, anicteric sclerae ENMT: external ear and nose normal, oropharynx normal Mouth: + dentition abnormality (edentulous) Neck: trachea midline, no thyromegaly Respiratory: no respiratory distress Auscultation: + wheezes (diffuse); no rhonchi and no pleural rub Cardiovascular: Rate/Rhythm: regular rate Heart Sounds: no gallop (distant heart sounds, exam limited), no murmur (distant heart sounds, exam limited) and no cardiac rub (distant heart sounds, exam limited) Vessels: no JVD and + abnormal peripheral pulses (pedal pulses diminished) Extremities: normal capillary refill; no calf tenderness and no edema Gastrointestinal (Abdomen): normal bowel sounds, soft, nontender, no hepatosplenomegaly Musculoskeletal: Head/Neck/Chest: neck supple Extremities: strength 5/5 throughout and + clubbing; no cyanosis Skin: no rashes, warm and dry several ecchymoses Neurologic: PERRL, EOMI no facial palsy no dysarthria or aphasia patellar DTR's 2/2 bilat Psychiatric: Orientation: alert and oriented x 3 Affect: euthymic affect Lymphatic: no cervical lymphadenopathy Results & Data Results & Data ([facility]) Vital Signs (Past 12 Hours) Vital Signs Temp Pulse Pulse Resp BP BP Pulse Ox 12/06/19 06:45 92 H 22 117/69 94 12/06/19 06:00 90 18 94 12/06/19 05:48 90 12/06/19 05:46 90 12/06/19 05:40 37.8 C H 94 H 26 H 112/58 L 82 L Laboratory Results Laboratory Results - last 24 hr 12/06/19 12/06/19 12/06/19 05:59 05:59 06:09 WBC RBC Hgb Hct MCV MCH MCHC RDW Std Deviation RDW Coeff of Ren Plt Count MPV Immature Gran % (Auto) Neut % (Auto) Lymph % (Auto) Yates % (Auto) Eos % (Auto) Baso % (Auto) Neut # (Auto) Lymph # (Auto) Yates # (Auto) Eos # (Auto) Baso # (Auto) Immature Gran # (Auto) PT INR VBG pH VBG pCO2 VBG pO2 VBG HCO3 VBG O2 Saturation VBG Base Excess Barometric Pressure Sodium Potassium Chloride Carbon Dioxide Anion Gap BUN Creatinine Est Cr Clr Drug Dosing Est GFR ( Amer) Est GFR (Non-Af Amer) BUN/Creatinine Ratio Glucose Lactate 0.5 Calcium Magnesium Troponin I NT-Pro-B Natriuret Pep Procalcitonin COVID-19 PCR NEGATIVE SARS-CoV-2 RNA (RT-PCR) Cancelled 12/06/19 12/06/19 12/06/19 06:11 06:11 06:11 WBC 9.28 RBC 3.79 L Hgb 10.6 L Hct 34.1 L MCV 90.0 MCH 28.0 MCHC 31.1 L RDW Std Deviation 47.8 H RDW Coeff of Ren 14.5 Plt Count 180 MPV 9.6 Immature Gran % (Auto) 0.2 Neut % (Auto) 71.2 Lymph % (Auto) 17.7 Yates % (Auto) 9.7 Eos % (Auto) 1.1 Baso % (Auto) 0.1 Neut # (Auto) 6.61 H Lymph # (Auto) 1.64 Yates # (Auto) 0.90 H Eos # (Auto) 0.10 Baso # (Auto) 0.01 Immature Gran # (Auto) 0.02 PT 10.8 INR 1.0 VBG pH VBG pCO2 VBG pO2 VBG HCO3 VBG O2 Saturation VBG Base Excess Barometric Pressure Sodium 140 Potassium 3.7 Chloride 106 Carbon Dioxide 29 Anion Gap 5.0 BUN 18 Creatinine 1.29 Est Cr Clr Drug Dosing 63.1 Est GFR ( Amer) 65.1 Est GFR (Non-Af Amer) 56.2 BUN/Creatinine Ratio 13.9 Glucose 110 H Lactate Calcium 8.4 L Magnesium 2.0 Troponin I 0.058 H* NT-Pro-B Natriuret Pep Procalcitonin COVID-19 PCR SARS-CoV-2 RNA (RT-PCR) 12/06/19 12/06/19 12/06/19 06:18 14:37 14:37 WBC RBC Hgb Hct MCV MCH MCHC RDW Std Deviation RDW Coeff of Ren Plt Count MPV Immature Gran % (Auto) Neut % (Auto) Lymph % (Auto) Yates % (Auto) Eos % (Auto) Baso % (Auto) Neut # (Auto) Lymph # (Auto) Yates # (Auto) Eos # (Auto) Baso # (Auto) Immature Gran # (Auto) PT INR VBG pH 7.32 L VBG pCO2 59 H VBG pO2 64 VBG HCO3 29 VBG O2 Saturation 89.8 VBG Base Excess 2.3 Barometric Pressure 727.1 Sodium Potassium Chloride Carbon Dioxide Anion Gap BUN Creatinine Est Cr Clr Drug Dosing Est GFR ( Amer) Est GFR (Non-Af Amer) BUN/Creatinine Ratio Glucose Lactate Calcium Magnesium Troponin I 0.027 NT-Pro-B Natriuret Pep 1364 H Procalcitonin < 0.05 COVID-19 PCR SARS-CoV-2 RNA (RT-PCR) Diagnostic Findings PORTABLE CHEST X-RAY Reviewed by the undersigned and formally interpreted by Radiology: FINDINGS: Prominent interstitial changes throughout both hemithoraces. Mild increase in cardiac size. Pulmonary apices are clear. IMPRESSION: Developing congestive failure ACT 112: Negative or not required by law. The above report was generated using voice recognition software. It may contain grammatical, syntax or spelling errors. Electronically signed by: Tomer Villarreal M.D. 12/06/2019 6:43 AM CTA CHEST IMPRESSION: 1. No evidence for pulmonary embolus. 2. No significant change in the scattered subcentimeter pulmonary nodules. Dominant nodule within the left upper lobe measures 5 mm. Continued follow-up recommended on the previous studies. 3. Prominent arterial hypertension. 4. Trace bilateral pleural effusions. 5. Linear scarlike density within the left lower lobe is again noted. 6. Mild cirrhosis. ACT 112: Negative or not required by law. Electronically signed by: Martin Perez M.D. 12/06/2019 10:20 AM ECG Additional Comments: EKG performed at 0535 reviewed and demonstrated NSR at 94 / min, incomplete RBBB, slight ST depression anterior leads. Code Status & VTE Plan Code Status Discussed with patient. No living will. He would like to have resuscitation attempted in the event of a cardiopulmonary arrest. VTE Prophylaxis Plan VTE Prophylaxis will be ordered: Yes
[2019-12-06] MEDS ORDERED: OPTIRAY 320 125ml IV PRN (09:29)
--- NOTE | 2019-12-06 10:21 | CT Scan Report ---
CHEST CTA for PULMONARY ARTERIES CT DOSE: 519.29 mGy.cm HISTORY: Atypical chest pain. TECHNIQUE: Multiaxial CT images of the chest were performed following the intravenous administration of contrast to evaluate the pulmonary arteries. Maximal intensity projection images were also obtaine d. A dose lowering technique was utilized adhering to the principles of ALARA. COMPARISON STUDY: Chest CT 08/19/2019. Chest CTA 07/01/2019. FINDINGS: Normal caliber thoracic aorta with no evidence for dissection. The heart is normal in size. The main pulmonary artery is distended up to 3.5 cm. This is consistent with pulmonary arterial hype rtension. No filling defects within the pulmonary arteries to suggest pulmonary embolus. Limited view s of the upper abdomen demonstrate a normal spleen. Nodular contour to the liver consistent with cirr hosis. Normal esophagus. Stable calcified right hilar lymph nodes and a few prominent left hilar lymp h nodes. No mediastinal or right hilar lymphadenopathy. No suspicious lytic are blastic osseous lesio ns. No pneumothorax. Advanced emphysema. Scattered calcified granulomas and scattered solid nodules r emain unchanged. Dominant nodule within the left upper lobe abutting the major fissure measures 5 mm and is best seen on image 209. Mild interstitial thickening and mild bronchial wall thickening which is likely chronic. Linear density within the left lower lobe posteriorly. This may represent scarring or atelectasis. This is similar to the prior study. Otherwise, no new focal lung consolidations to s uggest pneumonia. Trace bilateral pleural effusions. No pneumothorax. IMPRESSION: 1. No evidence for pulmonary embolus. 2. No significant change in the scattered subcentimeter pulmonary nodules. Dominant nodule within the left upper lobe measures 5 mm. Continued follow-up recommended on the previous studies. 3. Prominent arterial hypertension. 4. Trace bilateral pleural effusions. 5. Linear scarlike density within the left lower lobe is again noted. 6. Mild cirrhosis. ACT 112: Negative or not required by law. Electronically signed by: Martin Perez M.D. 12/06/2019 10:20 AM
[2019-12-06] MEDS ORDERED: ACETAMINOPHEN 325 MG TAB PO PRN (10:26)
--- NOTE | 2019-12-06 12:29 | Electrocardiogram Report ---
Test Reason : Blood Pressure : / mmHG Vent. Rate : 094 BPM Atrial Rate : 094 BPM P-R Int : 140 ms QRS Dur : 072 ms QT Int : 346 ms P-R-T Axes : 057 008 071 degrees QTc Int : 432 ms Normal sinus rhythm Nonspecific ST and T wave abnormality Incomplete right bundle branch block Abnormal ECG When compared with ECG of 20-AUG-2019 06:46, ST now depressed in Anterior leads Nonspecific T wave abnormality now evident in Anterior leads Confirmed by Peter Mariano ([id number]) on 12/06/2019 12:29:28 PM Referred By: Confirmed By:Tong Mariano
[2019-12-06] MEDS ORDERED: ALBUTEROL 0.083% NEBU SOLN 3 ML VIAL INH PRN (13:02)
[2019-12-06] MEDS: methylPREDNISolone 20 MG in SYRINGE 0 ML IV SCH ×2 (13:58→21:35)
[2019-12-06 15:18] LABS: Troponin I 0.027 ng/ml (0-0.045)
[2019-12-06] MEDS ORDERED: FUROSEMIDE 40 MG/4 ML VIAL IV ONE (17:11)
[2019-12-06] MEDS ORDERED: POTASSIUM CHLORIDE 20 MEQ TABCR PO ONE (17:45)
[2019-12-06] MEDS ORDERED: FUROSEMIDE 40 MG in SYRINGE 0 ML IV ONE (17:45)
[2019-12-06] MEDS: SERTRALINE HCL 100 MG TABLET PO SCH (20:08)
[2019-12-06] MEDS: PANTOprazole 40 MG TAB PO SCH (20:09)
[2019-12-06] MEDS: guaiFENesin 200 MG TAB PO SCH (20:09)
[2019-12-06] MEDS: UMECLIDINIUM BROMIDE 62.5MCG/BLISTER 7 PUFFS/INHALER INH SCH (20:10)
[2019-12-06] MEDS: ENOXAPARIN INJ 40 MG/0.4 ML SYR SQ SCH (20:10)
[2019-12-06] MEDS: TRAZODONE HCL 50 MG TAB PO SCH (20:13)
[2019-12-07] MEDS: methylPREDNISolone 20 MG in SYRINGE 0 ML IV SCH ×3 (05:14→22:24)
[2019-12-07] MEDS ORDERED: TRAMADOL HCL 50 MG TABLET PO STA (05:39)
[2019-12-07] MEDS: PANTOprazole 40 MG TAB PO SCH ×2 (08:18→22:21)
[2019-12-07] MEDS: guaiFENesin 200 MG TAB PO SCH ×2 (08:18→22:21)
[2019-12-07] MEDS: FLUTICASONE/VILANTEROL 100/25MCG 14 PUFFS/INHALER INH SCH (08:19)
--- NOTE | 2019-12-07 20:41 | Hospitalist Progress Note ---
Date of Service December 07, 2019 Assessment & Plan (1) Acute on chronic respiratory failure with hypoxemia: Chronic hypoxic respiratory failure on home O2 2 LPM. Former smoker with severe COPD. Presented with dyspnea and worsening hypoxia with O2 sats as low as 64% at home. = acute on chronic hypoxic respiratory failure. O2 sats in ED as low as 87% on NC 5 LPM. Low grade fever. SARS-CoV-2 PCR negative. No apparent acute infiltrates per chest x-ray or CTA. Pulmonary embolism ruled out by CTA. ? mild CHF on CXR. Pro-BNP slightly elevated. Echo showed LVEF 70%, grade I diastolic dysfunction, mild pulmonary hypertension. IV furosemide x 1 for possible CHF. Received levofloxacin + IV methylprednisolone for probable exacerbation of COPD. Changed antibiotic therapy to doxycycline. Titrate supplemental O2. (2) Elevated troponin: No apparent history of ischemic heart disease. Pt complains of sharp anterior chest pain, pleuritic in nature. Troponin # 1 = 0.058, # 2 = 0.027. EKG showed NSR, incomplete RBBB, slight ST depression anterior leads. CTA negative for pulmonary embolism. Check echo. Slightly elevated troponin could be secondary to hypoxia. (3) Pulmonary nodules: Multiple sub-centimeter pulmonary nodules noted on CTA chest, stable compared to August 2019. Former smoker. Follow-up per guidelines. (4) Cirrhosis of liver: Cirrhosis of liver noted on CTA of chest. Former drinker. Patient believes that diagnosis may have been mentioned in past. Follow. (5) COVID-19 ruled out: SARS-CoV-2 PCR negative. (6) DVT prophylaxis: SQ enoxaparin. Ambulate. (7) Discharge planning issues: Anticipated discharge to home. Primary Care and Pulmonary Medicine follow-up with [facility]. Admission and Anticipated Discharge Date Admission Date: December 06, 2019 Subjective Recheck for multiple problems. Patient seen in their room around 1530. No fever. Less SOB. Occasional cough. Still requiring higher O2 flow rate than baseline. No chest pain. Review of Systems: Constitutional- no fever. Cardiac- as noted above. Pulmonary- as noted above. GI- no nausea, vomiting, diarrhea, melena, hematochezia. - no urinary symptoms. Otherwise, as noted above. Physical Exam Constitutional: WD/WN, vitals as above no acute distress Eyes: + anicteric sclerae Respiratory: no respiratory distress Auscultation: + wheezes (diffuse); no rhonchi and no pleural rub Cardiovascular: Rate/Rhythm: regular rate Heart Sounds: no gallop (distant heart sounds, exam limited), no murmur (distant heart sounds, exam limited) and no cardiac rub (distant heart sounds, exam limited) Vessels: no JVD Extremities: no calf tenderness and no edema Gastrointestinal (Abdomen): normal bowel sounds, soft, nontender, no hepatosplenomegaly Musculoskeletal: Extremities: + clubbing; no cyanosis Skin: no rashes, warm and dry Psychiatric: Orientation: alert and oriented x 3 Results & Data Results & Data ([facility]) Vital Signs (Past 12 Hours) Vital Signs Temp Pulse Pulse Resp BP Pulse Ox 12/07/19 19:37 36.5 C 88 20 151/82 H 91 12/07/19 15:02 37.0 C 78 19 127/85 92 12/07/19 14:30 96 H 12/07/19 11:23 36.7 C 83 18 136/74 90 Laboratory Results 12/06/19 06:11 12/06/19 06:11
[2019-12-07] MEDS: ENOXAPARIN INJ 40 MG/0.4 ML SYR SQ SCH (21:42)
[2019-12-07] MEDS: UMECLIDINIUM BROMIDE 62.5MCG/BLISTER 7 PUFFS/INHALER INH SCH (21:42)
[2019-12-07] MEDS: TRAZODONE HCL 50 MG TAB PO SCH (21:45)
[2019-12-07] MEDS: DOXYCYCLINE HYCLATE 100 MG CAP PO SCH (22:21)
[2019-12-07] MEDS: SERTRALINE HCL 100 MG TABLET PO SCH (22:22)
[2019-12-08] MEDS: methylPREDNISolone 20 MG in SYRINGE 0 ML IV SCH ×2 (06:10→14:14)
[2019-12-08 06:23] LABS: Hemoglobin 11.4 g/dL (14.0-18.0); Mean Corpuscular Hgb Conc 30.8 g/dL (32-36); Mean Corpuscular Volume 90.9 fL (80-100); Mean Platelet Volume 9.5 fL (7.4-10.4); Platelet Count 169 K/uL (130-400); RDW Coefficient of Variation 14.4 % (11.5-14.5); RDW Standard Deviation 48.1 fL (36.4-46.3); Red Blood Count 4.07 M/uL (4.7-6.1); White Blood Count 9.79 K/uL (4.8-10.8)
[2019-12-08 06:51] LABS: BUN Creatinine Ratio 19.3 (10-20); Calcium 8.8 mg/dl (8.5-10.1); Creatinine Clr Calc Pharmacy 74.9 ml/min; Est GFR (African American) 84.5; Est GFR (Non-African American) 72.9; Potassium 4.1 mmol/L (3.5-5.1)
[2019-12-08 06:57] LABS: Ferritin 9.8 ng/ml (8-388)
[2019-12-08] MEDS: FLUTICASONE/VILANTEROL 100/25MCG 14 PUFFS/INHALER INH SCH (08:21)
[2019-12-08] MEDS: guaiFENesin 200 MG TAB PO SCH (08:22)
[2019-12-08] MEDS: PANTOprazole 40 MG TAB PO SCH (08:22)
[2019-12-08] MEDS: DOXYCYCLINE HYCLATE 100 MG CAP PO SCH (08:24)
[2019-12-08 10:34] LABS: Folate (Folic Acid) 2.99 ng/ml (>5.38)
--- NOTE | 2019-12-08 13:35 | Hospitalist Progress Note ---
Date of Service December 08, 2019 Assessment & Plan (1) Acute on chronic respiratory failure with hypoxemia: Chronic hypoxic respiratory failure on home O2 2 LPM. Former smoker with severe COPD. Presented with dyspnea and worsening hypoxia with O2 sats as low as 64% at home. = acute on chronic hypoxic respiratory failure. O2 sats in ED as low as 87% on NC 5 LPM. Low grade fever. SARS-CoV-2 PCR negative. No apparent acute infiltrates per chest x-ray or CTA. Pulmonary embolism ruled out by CTA. ? mild CHF on CXR. Pro-BNP slightly elevated. Echo showed LVEF 70%, grade I diastolic dysfunction, mild pulmonary hypertension. IV furosemide x 1 for possible CHF. Received levofloxacin + IV methylprednisolone for probable exacerbation of COPD. Changed antibiotic therapy to doxycycline. Titrated supplemental O2- weaned to baseline 2 LPM by discharge. Exacerbation of COPD secondary to bronchitis. Discharge on doxycycline + methylprednisolone taper. (2) Elevated troponin: No apparent history of ischemic heart disease. Pt complains of sharp anterior chest pain, pleuritic in nature. Troponin # 1 = 0.058, # 2 = 0.027. EKG showed NSR, incomplete RBBB, slight ST depression anterior leads. CTA negative for pulmonary embolism. Echo did not show any wall motion abnormalities. Slightly elevated troponin probably secondary to hypoxia. (3) Pulmonary nodules: Multiple sub-centimeter pulmonary nodules noted on CTA chest, stable compared to August 2019. Former smoker. Followed by [facility] Medicine at [facility]. Follow-up per guidelines. (4) Cirrhosis of liver: Cirrhosis of liver noted on CTA of chest. Former drinker. Patient believes that diagnosis may have been mentioned in past. Follow. (5) COVID-19 ruled out: SARS-CoV-2 PCR negative. (6) DVT prophylaxis: SQ enoxaparin. Ambulate. (7) Discharge planning issues: Discharged to home. Primary Care ([facility]) and Pulmonary Medicine follow-up with [facility]. Admission and Anticipated Discharge Date Admission Date: December 06, 2019 Subjective Recheck for multiple problems. Patient seen in their room around 1340. Feels well- back to baseline. O2 weaned down to usual 2 LPM. No fever. Less SOB. Rare cough. No chest pain. Ambulating. Would like to go home today. Review of Systems: Constitutional- no fever. Cardiac- as noted above. Pulmonary- as noted above. GI- no nausea, vomiting, diarrhea, melena, hematochezia. - no urinary symptoms. Otherwise, as noted above. Physical Exam Constitutional: WD/WN, vitals as above no acute distress Respiratory: no respiratory distress Auscultation: + wheezes (diffuse, mild); no rhonchi and no pleural rub Cardiovascular: Rate/Rhythm: regular rate Heart Sounds: no gallop (distant heart sounds, exam limited), no murmur (distant heart sounds, exam limited) and no cardiac rub (distant heart sounds, exam limited) Vessels: no JVD Extremities: no calf tenderness and no edema Gastrointestinal (Abdomen): normal bowel sounds, soft, nontender, no hepatosplenomegaly Musculoskeletal: Extremities: no cyanosis Skin: no rashes, warm and dry Psychiatric: Orientation: alert and oriented x 3 Results & Data Results & Data ([facility]) Vital Signs (Past 12 Hours) Vital Signs Temp Pulse Pulse Resp BP Pulse Ox 12/08/19 11:39 36.8 C 74 16 118/58 L 98 12/08/19 08:00 68 12/08/19 07:55 37.0 C 62 18 121/63 96 12/08/19 03:27 36.5 C 63 16 118/75 92 Laboratory Results 12/08/19 05:59 12/08/19 05:59 Microbiology 12/06/19 06:11 Blood Aerobic Blood Culture - Preliminary No growth in Aerobic bottle after 48 hours. 12/06/19 06:11 Blood Anaerobic Blood Culture - Preliminary No growth in Anaerobic bottle after 48 hours. 12/06/19 06:18 Blood Aerobic Blood Culture - Preliminary No growth in Aerobic bottle after 48 hours. 12/06/19 06:18 Blood Anaerobic Blood Culture - Final
[2019-12-08] MEDS ORDERED: DOXYCYCLINE HYCLATE 100 MG CAP PO STA (14:17)
--- NOTE | 2019-12-09 07:03 | Discharge Summary ---
Date of Service Date of Admission: 12/06/19 Date of Discharge: 12/08/19 Admission HPI Per Admitting Provider 69 YO male followed by [facility] for primary care. Also followed by [facility]. History of severe COPD on home O2 2 LPM and other problems as outlined below. He was in his usual state of fair health until 2 days prior to admission when he felt more dyspneic. O2 sats were 64% per his personal pulse oximeter. Is seemed like there was a problem with his oxygen concentrator. However, he continued to feel SOB once the concentrator seemed to be functioning properly. He required O2 at 6 LPM compared to usual 2 LPM. Came to the ED during the night because of persistent dypnea. No significant cough. No fever. No travel or sick contacts. Also experiencing sharp anterior chest pain, worse with deep inspiration. He attributes the chest pain to low O2 sats. Received nebulizer treatment in ED without much improvement of symptoms. Principal Diagnosis acute on chronic hypoxic respiratory failure exacerbation of COPD Discharge Data Allergies Allergy/AdvReac Type Severity Reaction Status Date / Time bee venom protein (honey bee) Allergy Severe ANAPHYLAXIS Verified 12/06/19 05:57 amoxicillin Allergy Intermediate FACIAL Verified 12/06/19 05:57 SWELLING (EYES SWELLED SHUT) clavulanic acid Allergy Intermediate FACIAL Verified 12/06/19 05:57 SWELLING (EYES SWELLED SHUT) pneumococcal vaccine Allergy Intermediate SWELLING Verified 12/06/19 05:57 Cqjdmiw-Kyi-Wku Reductase Allergy Intermediate CPK'S GO Verified 12/06/19 05:57 Inhibitor THROUGH ROOF prednisone AdvReac Intermediate confusion Verified 12/06/19 05:57 and agitation Consultations 12/06/19 07:03 ED Decision to Admit Stat Ordered Studies 12/06/19 08:49 CT angio chest PE protocol Stat Hospital Course (1) Acute on chronic respiratory failure with hypoxemia: Chronic hypoxic respiratory failure on home O2 2 LPM. Former smoker with severe COPD. Presented with dyspnea and worsening hypoxia with O2 sats as low as 64% at home. = acute on chronic hypoxic respiratory failure. O2 sats in ED as low as 87% on NC 5 LPM. Low grade fever. SARS-CoV-2 PCR negative. No apparent acute infiltrates per chest x-ray or CTA. Pulmonary embolism ruled out by CTA. ? mild CHF on CXR. Pro-BNP slightly elevated. Echo showed LVEF 70%, grade I diastolic dysfunction, mild pulmonary hypertension. IV furosemide x 1 for possible CHF. Received levofloxacin + IV methylprednisolone for probable exacerbation of COPD. Changed antibiotic therapy to doxycycline. Titrated supplemental O2- weaned to baseline 2 LPM by discharge. Exacerbation of COPD secondary to bronchitis. Discharge on doxycycline + methylprednisolone taper. (2) Elevated troponin: No apparent history of ischemic heart disease. Pt complained of sharp anterior chest pain, pleuritic in nature. Troponin # 1 = 0.058, # 2 = 0.027. EKG showed NSR, incomplete RBBB, slight ST depression anterior leads. CTA negative for pulmonary embolism. Echo did not show any wall motion abnormalities. Slightly elevated troponin probably secondary to hypoxia. (3) Pulmonary nodules: Multiple sub-centimeter pulmonary nodules noted on CTA chest, stable compared to August 2019. Former smoker. Followed by Pul[facility] Medicine at [facility]. Follow-up per guidelines. (4) Cirrhosis of liver: Cirrhosis of liver noted on CTA of chest. Former drinker. Patient believes that diagnosis may have been mentioned in past. Follow. (5) COVID-19 ruled out: SARS-CoV-2 PCR negative. (6) Anemia: Normocytic anemia with Hgb ~ 11. Fe low. Folate low. B12 normal. Fe + folate supplementation. Should have colonoscopy if not done recently. (7) DVT prophylaxis: SQ enoxaparin. Ambulate. (8) Discharge planning issues: Discharged to home. Primary Care ([facility]) and Pulmonary Medicine follow-up with [facility]. 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 CT scan of chest did not show any blood clots. CT scan of chest did show some small spots in the lungs. You should see your lung doctor at the [facility] for follow-up. CT scan showed cirrhosis of liver. Please discuss with your primary care provider. Blood count showed mild anemia. Your iron level was low. Your folic acid level was low. Take folic acid and ferrous sulfate as directed. Discuss further with your primary care provider. You should consider having a colonoscopy if not recently done. RECOMMENDATIONS FOR FOLLOW-UP: Please schedule follow-up appointment at [facility] next week for recheck. OTHER INSTRUCTIONS: Seek medical attention if you have: * temperature above 101 * chest pain or trouble breathing * abdominal pain, nausea, vomiting * diarrhea, dark stools or bloody stools * any unanswered questions or concerns Call 911 if symptoms are severe. Please take good care of yourself. Call if you have any questions or problems. You can reach a [facility] hospitalist on duty at [facility] 24 hours a day by calling [phone]. My cell # is [phone]. Pending Studies at Discharge: No Stand-Alone Forms: [facility], Smoking Cessation Medications and DC Order Prescriptions: New doxycycline hyclate 100 mg capsule 100 mg PO BID 6 Days Qty: 12 RF: 0 methylprednisolone 4 mg tablets,dose pack See Rx Instructions .ROUTE .COMPLEX Qty: 21 RF: 0 folic acid 1 mg tablet 1 mg PO DAILY Qty: 30 RF: 5 ferrous sulfate 325 mg (65 mg iron) tablet 325 mg PO DAILY Qty: 30 RF: 5 Continued albuterol sulfate 2.5 mg /3 mL (0.083 %) Solution For Nebulization 2.5 mg inhalation QID PRN (Reason: Shortness Of Breath Or Wheezing) RF: 0 albuterol sulfate 90 mcg/actuation Hfa Aerosol Inhaler 2 puff INHALATION Q6H PRN (Reason: Shortness Of Breath Or Wheezing) RF: 0 buspirone 5 mg Tablet 5 mg PO HS RF: 0 cetirizine 10 mg Tablet 10 mg PO DAILY PRN (Reason: Allergy Symptoms) RF: 0 sertraline 100 mg Tablet 200 mg PO HS RF: 0 trazodone 150 mg Tablet 150 mg PO HS RF: 0 omeprazole 20 mg Capsule,Delayed Release(Dr/Ec) 20 mg PO BID RF: 0 Spiriva with HandiHaler 18 mcg Capsule, W/Inhalation Device 1 cap INHALATION QPM RF: 0 guaifenesin 200 mg Tablet 400 mg PO BID RF: 0 epinephrine [EpiPen] 0.3 mg/0.3 mL Auto-Injector 0.3 mg IM DIRECTED PRN (Reason: Allergic Reaction) RF: 0 budesonide-formoterol [Symbicort] 160-4.5 mcg/actuation Hfa Aerosol Inhaler 2 puff INHALATION BID RF: 0 cholecalciferol (vitamin D3) [Vitamin D3] 25 mcg (1,000 unit) Capsule 0 unit PO DAILY RF: 0 azithromycin 250 mg Tablet 250 mg PO 3XWK RF: 0 Discharge Orders: Discharge Order (Routine); Ordered 12/08/19 Ordered By: Sanjeev Ramos Admission Data Admit Date/Time: 12/06/19 08:06 Attending Provider: Sanjeev Ramos Admit Provider: Sanjeev Ramos Primary Care Provider: PCP,NO Other Providers: Sanjeev Ramos Other Interventions: Discharge Summary Assessment (RN) Last Done: 12/08/19 14:06 DC Date/Time DO NOT enter until pt leaves facility: 12/08/19 14:40
== END 2019-12-08 14:40 | disposition home or self-care (01) | DRG 190 ==
LOC: ED 05:28 → 2S 08:06

== ENCOUNTER 2020-05-30 11:57 | Inpatient (IN) ==
[2020-05-30] MEDS ORDERED: methylPREDNISolone 125 MG/2 ML VIAL IV STA (12:59)
[2020-05-30] MEDS ORDERED: ALBUT/IPRATROP 3MG/0.5MG NEB 3 ML VIAL INH STA (12:59)
[2020-05-30] MEDS ORDERED: HYDROCODONE/ACETAMOPHEN 5/325MG TAB PO STA (13:44)
[2020-05-30 13:56] LABS: Appearance Urine Cloudy (Clear); Bacteria Urine Automated Negative (Negative); Bilirubin Urine Negative (Negative); Blood Urine 2+ (Negative); Color Urine Dark Yellow; Epithelial Cell Urine Auto 0-5 /lpf (0-5); Glucose Urine UA Negative (Negative); Ketones Urine Negative (Negative); Leukocyte Esterase Urine 2+ (Negative); Nitrite Urine Negative (Negative); Protein Urine 1+ (Negative); Specific Gravity Urine 1.021 (1.000-1.030); Urobilinogen Urine Negative (Negative); WBC Urine Automated >30 /hpf (0-5); pH Urine 5.5 (4.5-7.5)
--- NOTE | 2020-05-30 14:04 | XRay Report ---
XR chest 1V portable CLINICAL HISTORY: Dyspnea COMPARISON STUDY: 12/06/2019 FINDINGS: The heart is normal in size. There is prominence of central pulmonary arteries suggesting p ulmonary arterial hypertension. There is underlying pulmonary emphysema. There are persistent bilater al interstitial opacities with a basilar predominance.[ IMPRESSION: 1. Pulmonary emphysema 2. Radiographic evidence of pulmonary arterial hypertension 3. Relatively stable mid to lower lung zone interstitial opacities ACT 112: Negative or not required by law. Electronically signed by: Herman Thornton M.D. 05/30/2020 2:02 PM
[2020-05-30 14:12] LABS: Basophils # (auto) 0.01 K/uL (0-0.2); Basophils % (auto) 0.2 %; Eosinophils # (auto) 0.01 K/uL (0-0.5); Eosinophils % (auto) 0.2 %; Hematocrit (blood only) 37.4 % (42-52); Hemoglobin 12.5 g/dL (14.0-18.0); Immature Granulocytes # (auto) 0.02 K/uL (0.00-0.02); Immature Granulocytes % (auto) 0.4 %; Lymphocytes # (auto) 0.93 K/uL (1.2-3.4); Lymphocytes % (auto) 18.1 %; Mean Corpuscular Hemoglobin 30.9 pg (25-34); Mean Corpuscular Hgb Conc 33.4 g/dL (32-36); Mean Corpuscular Volume 92.3 fL (80-100); Mean Platelet Volume 9.5 fL (7.4-10.4); Monocytes # (auto) 0.52 K/uL (0.11-0.59); Monocytes % (auto) 10.1 %; Neutrophils # (auto) 3.65 K/uL (1.4-6.5); Platelet Count 89 K/uL (130-400); Platelet Estimate Decreased (Normal); RDW Coefficient of Variation 14.2 % (11.5-14.5); RDW Standard Deviation 48.1 fL (36.4-46.3); Red Blood Count 4.05 M/uL (4.7-6.1); White Blood Count 5.14 K/uL (4.8-10.8)
[2020-05-30 14:14] LABS: RBC Urine Automated 0-4 /hpf (0-4)
[2020-05-30 14:15] LABS: Partial Thromboplastin Ratio 1.2; Partial Thromboplastin Time 33.3 Seconds (21.0-31.0); Prothrombin Time 10.9 Seconds (9.0-12.0)
[2020-05-30 14:17] LABS: Alanine Aminotransferase 45 U/L (12-78); Albumin Level 3.2 gm/dl (3.4-5.0); Aspartate Aminotransferase 80 U/L (15-37); BUN Creatinine Ratio 14.2 (10-20); Blood Urea Nitrogen 15 mg/dl (7-18); Carbon Dioxide 29 mmol/L (21-32); Chloride 100 mmol/L (98-107); Est GFR (Non-African American) 70.8; Glucose 103 mg/dl (70-99); Sodium 135 mmol/L (136-145)
[2020-05-30 14:21] LABS: Albumin Globulin Ratio 0.9 (0.9-2); Alkaline Phosphatase 72 U/L (45-117); Bilirubin,Total 0.5 mg/dl (0.2-1); Globulin 3.4 gm/dl (2.5-4.0); Total Protein 6.6 gm/dl (6.4-8.2); Troponin I < 0.015 ng/ml (0-0.045)
--- NOTE | 2020-05-30 15:43 | History & Physical Report ---
Date of Service May 30, 2020 Assessment & Plan (1) Acute on chronic respiratory failure with hypoxia: (2) COVID-19: This is a 70yo M with a PMH of severe COPD on 6 L NC O2 at baseline, depression, anxiety, cirrhosis and other medical problems listed below who presents with worsening SOB and dizziness x 3 days and was found to be covid positive. -Covid positive test today, 05/30. Symptomatic with dizziness, SOB and cough x 3 days -Saturating at 90% on 6 L NC at rest, which is baseline but becomes hypoxic to mid-80s with any ambulation -VBG pH 7.36, d-dimer, troponin, procalcitonin all within normal limits. Lyme ab negative. Anaplasma smear pending -Given solumedrol 60mg IV in ED. Plan to continue steroids with 6mg IV dexamethasone daily. Started day 1 of 5 Remdesivir -Discussed option of convalescent plasma-patient declined (3) COPD (chronic obstructive pulmonary disease) with emphysema: Mid wheezing on exam but close to baseline. Continue home nebs, Symbicort, Spiriva (4) PTSD (post-traumatic stress disorder): (5) Depression: (6) Anxiety: Continue Zoloft, buspar (7) GERD (gastroesophageal reflux disease): Continue PPI (8) Cirrhosis of liver: Former drinker. Has been informed of this diagnosis in the past. LFTs normal except for elevation of AST: 80. Monitor with CMP DVT Ppx: SQ Lovenox Code status: CONDITIONAL CODE- YES to CPR, cardiac defibrillation resuscitative efforts but NO intubation or mechanical ventilation PCP: [facility] Dispo: Admitted to 2nd floor covid unit. Discharge planning ordered. Patient seen in collaboration with Dr. Hein. Please see addendum. History of Present Illness Chief Complaint: SOB, Covid + Primary Care Provider: NO PCP This is a 70yo M with a PMH of severe COPD on 6 L NC O2 at baseline, depression, anxiety, cirrhosis and other medical problems listed below who presents with worsening SOB and dizziness x 3 days. Patient started to feel lightheaded with worsening shortness of breath with any type of ambulation on Saturday. Also endorses pleuritic chest pain and productive cough with yellow mucus. Had a near syncopal event earlier today prior to presenting to the ED. Denies any head trauma. Denies any fever, chills, loss of taste or smell, sore throat, palpitations, nausea, vomiting, abdominal pain, dysuria, diarrhea or constipation. No changes to appetite. Follows with [facility] PCP and pulmonology. Lives at home with , adult children and grandchildren. He is the first to test positive for Covid. In ED, patient is saturating at 90% on 6 L nasal cannula at rest, which is baseline. When he got up to ambulate to the restroom, became hypoxic to 85%. No leukocytosis. Plt 89, D-dimer 410, creatinine 1.06, initial troponin negative, procalcitonin normal. Anaplasma smear, lyme ab pending. CXR with pulmonary emphysema, radiographic evidence of pulmonary arterial hypertension and relatively stable mid to lower lung zone interstitial opacities. Allergies Allergy/AdvReac Type Severity Reaction Status Date / Time bee venom protein (honey bee) Allergy Severe ANAPHYLAXIS Verified 05/30/20 13:11 amoxicillin Allergy Intermediate FACIAL Verified 05/30/20 13:11 SWELLING (EYES SWELLED SHUT) clavulanic acid Allergy Intermediate FACIAL Verified 05/30/20 13:11 SWELLING (EYES SWELLED SHUT) pneumococcal vaccine Allergy Intermediate SWELLING Verified 05/30/20 13:11 Swwpial-Dwx-Mkz Reductase Allergy Intermediate CPK'S GO Verified 05/30/20 13:11 Inhibitor THROUGH ROOF prednisone AdvReac Intermediate confusion Verified 05/30/20 13:11 and agitation Home Medications Medication Instructions Recorded Confirmed Type Spiriva with HandiHaler 1 cap INHALATION QPM 04/08/18 05/30/20 History buspirone 5 mg PO QPM 04/08/18 05/30/20 History cetirizine 10 mg PO DAILY PRN 04/08/18 05/30/20 History omeprazole 20 mg PO BID 04/08/18 05/30/20 History sertraline 200 mg PO HS 04/08/18 05/30/20 History trazodone 150 mg PO HS 04/08/18 05/30/20 History albuterol sulfate 2 puff INHALATION Q6H PRN 07/04/18 05/30/20 History albuterol sulfate 2.5 mg INHALATION QID PRN 07/04/18 05/30/20 History budesonide-formoterol [Symbicort] 2 puff INHALATION BID 08/22/18 05/30/20 History epinephrine [EpiPen] 0.3 mg IM DIRECTED PRN 08/22/18 05/30/20 History guaifenesin 400 mg PO BID 08/22/18 05/30/20 History cholecalciferol (vitamin D3) 1,000 unit PO QAM 08/19/19 05/30/20 History [Vitamin D3] ferrous sulfate 325 mg PO QAM 05/30/20 05/30/20 History folic acid 1 mg PO QAM 05/30/20 05/30/20 History Past Med/Surg History Medical History (Updated 05/30/20 @ 17:02 by Bethany Morales PA-C) Agent orange exposure Anemia Anxiety Cirrhosis of liver COPD (chronic obstructive pulmonary disease) with emphysema Depression Emphysema/COPD GERD (gastroesophageal reflux disease) History of tobacco abuse HTN (hypertension) Kidney stones Osteoarthritis Pneumonia PTSD (post-traumatic stress disorder) Pulmonary nodules Surgical History H/O hernia repair History of appendectomy History of extraction of renal calculus History of tonsillectomy Loss of teeth due to extraction S/P arthroscopic surgery of right knee Family History Mother Colon cancer Father FH: kidney cancer Other Cancer Social History Smoking Status: Never smoker Tobacco Type: Cigarettes Cigarettes Per Day: 40 pack year hx; Second Hand Exposure: No; Hx Alcohol Use: No Hx Substance Use: No Preferred Language: Urdu Communication Ability: Effective Accountant Auditor Required: No Beliefs That Will Affect Care: None marital status: Current Living Situation: Spouse Current Living Situation Comment: lives with spouse 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 Physical Exam Physical Exam: Please see Dr. Hein's addendum for physical exam. Results & Data Results & Data ([facility]) Vital Signs (Past 12 Hours) Vital Signs Temp Pulse Pulse Pulse Pulse Pulse Resp 05/30/20 15:08 98 H 86 82 05/30/20 14:50 68 16 05/30/20 14:40 66 21 05/30/20 14:30 66 21 05/30/20 14:20 66 24 05/30/20 14:10 70 21 05/30/20 14:08 71 25 H 05/30/20 14:06 69 21 05/30/20 14:00 72 23 05/30/20 13:50 70 24 05/30/20 13:40 72 16 05/30/20 13:30 72 24 05/30/20 13:28 75 18 05/30/20 13:26 79 24 05/30/20 13:10 76 31 H 05/30/20 13:00 79 21 05/30/20 12:57 80 17 05/30/20 12:15 37.0 C 87 22 Resp Resp Resp BP BP Pulse Ox Pulse Ox 05/30/20 15:08 26 H 24 22 85 L 05/30/20 14:50 05/30/20 14:40 05/30/20 14:30 05/30/20 14:20 05/30/20 14:10 95 05/30/20 14:08 107/55 L 95 05/30/20 14:06 107/55 L 97 05/30/20 14:00 97 05/30/20 13:50 97 05/30/20 13:40 96 05/30/20 13:30 98 05/30/20 13:28 95 05/30/20 13:26 05/30/20 13:10 97 05/30/20 13:00 95 05/30/20 12:57 97 05/30/20 12:15 94/50 L 94 Pulse Ox Pulse Ox 05/30/20 15:08 92 91 05/30/20 14:50 05/30/20 14:40 05/30/20 14:30 05/30/20 14:20 05/30/20 14:10 05/30/20 14:08 05/30/20 14:06 05/30/20 14:00 05/30/20 13:50 05/30/20 13:40 05/30/20 13:30 05/30/20 13:28 05/30/20 13:26 05/30/20 13:10 05/30/20 13:00 05/30/20 12:57 05/30/20 12:15 Laboratory Results Short CBC 05/30/20 05/30/20 05/30/20 Range/Units 13:30 13:30 13:30 WBC 5.14 (4.8-10.8) K/uL Hgb 12.5 L (14.0-18.0) g/dL Hct 37.4 L (42-52) % Plt Count 89 L (130-400) K/uL Sodium 135 L (136-145) mmol/L Total Creatine Kinase 371 H (39-308) U/L BMP 05/30/20 13:30 Sodium 135 L Potassium 4.0 Chloride 100 Carbon Dioxide 29 BUN 15 Creatinine 1.06 Glucose 103 H Calcium 8.0 L Cardiac Enzymes 05/30/20 05/30/20 Range/Units 13:30 13:30 Total Creatine Kinase 371 H (39-308) U/L Troponin I < 0.015 (0-0.045) ng/ml Liver Function 05/30/20 Range/Units 13:30 Total Bilirubin 0.5 (0.2-1) mg/dl AST 80 H (15-37) U/L ALT 45 (12-78) U/L Alkaline Phosphatase 72 (45-117) U/L Albumin 3.2 L (3.4-5.0) gm/dl Urine 05/30/20 Range/Units 13:30 Urine Color Dark Yellow Urine Appearance Cloudy A (Clear) Urine pH 5.5 (4.5-7.5) Ur Specific [place] 1.021 (1.000-1.030) Urine Protein 1+ H (Negative) Urine Glucose (UA) Negative (Negative) Diagnostic Findings CXR: IMPRESSION: 1. Pulmonary emphysema 2. Radiographic evidence of pulmonary arterial hypertension 3. Relatively stable mid to lower lung zone interstitial opacities Code Status & VTE Plan VTE Prophylaxis Plan VTE Prophylaxis will be ordered: Yes Supervising Physician Co-Signing Physician Notes Pt was seen and and examined. Agreed with Bethany WHITE assessment and plan. 70yo M with a PMH of severe COPD on 6 L NC O2 at baseline, depression, anxiety, cirrhosis presented to the ED with worsening SOB and dizziness x 3 days. Pt said that SOB worsening with minimal exertion. He said that he also has productive cough with yellow mucus. Denies any head trauma. In the ED his saturation was above 90% in 6L NC oxygen rest but when she tries to ambulate to the bathroom his oxygen dropped in the 80's. Denies any fever, chills, loss of taste or smell, sore throat, palpitations, nausea, vomiting, abdominal pain, dysuria, diarrhea, constipation or any contact to anyone testing positive for COVID. Exam General- Mild respiratory distress with exertion Head- atraumatic Eyes- PERRL, EOMI, ENT- oropharynx clear Neck- supple, no JVD Lungs- +wheezing Heart- regular rhythm; no murmur Abdomen- normal bowel sounds, soft, nontender Extremities- no calf tenderness Neuro- alert, oriented x 3; PERRL, EOMI; no facial palsy; no dysarthria Skin- warm & dry A/P COVID 19 Positive Chronic hypoxic respiratory failure on home O2 6 L NC oxygen Presented on admission with worsening dyspnea CXR on admission showed pulmonary emphysema. Relatively stable mid to lower lung zone interstitial opacities D-Dimer and procalcitonin are normal Received IV solumedrol 60mg in ER Pt meet criteria for steroid and remdesivir since he desaturates in the 80's with ambulation Pt declined plasma convalescent administered Will monitor LFT while on Remdesivir Will start on decadron IV 6mg for now [place] oxygen supplement Will check anti-inflammatory markers such as ESR, CRP, LDH, Ferritin, Will repeat procalcitonin in am DVT px on Lovenox subq BID Please refer to Bethany WHITE documentation for other problems MD Angel Luis
[2020-05-30 16:02] LABS: Ferritin 262.3 ng/ml (8-388)
[2020-05-30 16:13] LABS: D Dimer 410 ug/L FEU (0-500)
[2020-05-30] MEDS ORDERED: REMDESIVIR 200 MG in SODIUM CHLORIDE 0.9% 210 ML IV STA (16:20)
[2020-05-30 16:48] LABS: Lyme Ab IgG w/WB Rflx Negative (Negative); Lyme Ab IgM w/WB Rflx Negative (Negative)
[2020-05-30] MEDS ORDERED: HYDROCODONE/ACETAMOPHEN 5/325MG TAB PO ONE (18:33)
--- NOTE | 2020-05-30 18:47 | Emergency Department Note ---
History of Present Illness General Chief complaint: Shortness of Breath/Dyspnea Stated complaint: sob hx copd cough dizzy Source: patient and RN notes reviewed Mode of arrival: ambulatory Limitations: no limitations History of Present Illness Provider complaint: Shortness of breath, oxygen dependent COPD Maximum Pain Intensity: 6 This patient is a 70-year-old male who presents emergency department with complaints of increased shortness of breath. Patient states he has had difficulty particularly with exertion. He had a near syncopal episode while attempting to walk to the bathroom today. He had his oxygen on at 6 L which is his baseline. Patient states he has terrible COPD from his "days in [place]." He states he does not currently smoke cigarettes. He denies any recent fevers but states he has been coughing more than usual. He lives at home with his , son, [id number] and their 3 children. He denies any vomiting, abdominal pain or diarrhea. Home Medications Medication Instructions Recorded Confirmed Type Spiriva with HandiHaler 1 cap INHALATION QPM 04/08/18 05/30/20 History buspirone 5 mg PO QPM 04/08/18 05/30/20 History cetirizine 10 mg PO DAILY PRN 04/08/18 05/30/20 History omeprazole 20 mg PO BID 04/08/18 05/30/20 History sertraline 200 mg PO HS 04/08/18 05/30/20 History trazodone 150 mg PO HS 04/08/18 05/30/20 History albuterol sulfate 2 puff INHALATION Q6H PRN 07/04/18 05/30/20 History albuterol sulfate 2.5 mg INHALATION QID PRN 07/04/18 05/30/20 History budesonide-formoterol [Symbicort] 2 puff INHALATION BID 08/22/18 05/30/20 History epinephrine [EpiPen] 0.3 mg IM DIRECTED PRN 08/22/18 05/30/20 History guaifenesin 400 mg PO BID 08/22/18 05/30/20 History cholecalciferol (vitamin D3) 1,000 unit PO QAM 08/19/19 05/30/20 History [Vitamin D3] ferrous sulfate 325 mg PO QAM 05/30/20 05/30/20 History folic acid 1 mg PO QAM 05/30/20 05/30/20 History Allergies Allergy/AdvReac Type Severity Reaction Status Date / Time bee venom protein (honey bee) Allergy Severe ANAPHYLAXIS Verified 05/30/20 13:11 amoxicillin Allergy Intermediate FACIAL Verified 05/30/20 13:11 SWELLING (EYES SWELLED SHUT) clavulanic acid Allergy Intermediate FACIAL Verified 05/30/20 13:11 SWELLING (EYES SWELLED SHUT) pneumococcal vaccine Allergy Intermediate SWELLING Verified 05/30/20 13:11 [id number]-[id number] Reductase Allergy Intermediate CPK'S GO Verified 05/30/20 13:11 Inhibitor THROUGH ROOF prednisone AdvReac Intermediate confusion Verified 05/30/20 13:11 and agitation Past Med/Surg History Medical History Agent orange exposure Anemia Anxiety Cirrhosis of liver COPD (chronic obstructive pulmonary disease) with emphysema Depression Emphysema/COPD GERD (gastroesophageal reflux disease) History of tobacco abuse HTN (hypertension) Kidney stones Osteoarthritis Pneumonia PTSD (post-traumatic stress disorder) Pulmonary nodules Surgical History H/O hernia repair History of appendectomy History of extraction of renal calculus History of tonsillectomy Loss of teeth due to extraction S/P arthroscopic surgery of right knee Family History Mother Colon cancer Father FH: kidney cancer Other Cancer Social History Smoking Status: Former smoker Tobacco Type: Cigarettes Cigarettes Per Day: 40 pack year hx; Second Hand Exposure: No; Do You Dip or Chew Tobacco: No; Tobacco Cessation Education Requested by Patient: No Hx Alcohol Use: No Hx Substance Use: No Preferred Language: Mongolian Communication Ability: Effective 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 and A total of 10 systems reviewed and were otherwise negative Physical Exam Vital Signs Vital Signs - 24 hr 05/30/20 12:15 05/30/20 12:57 05/30/20 13:00 Temperature 37.0 C Temperature Source Temporal Artery Scan Pulse Rate 87 80 79 Pulse Rate [Apical] Pulse Rate [Exercises] Pulse Rate [Recovery] Pulse Rate [Resting] Pulse Rate from SpO2 Sensor 79 78 Pulse Rhythm Regular Pulse Rhythm [Apical] Pulse Strength Normal Respiratory Rate 22 17 21 Respiratory Rate [Exercises] Respiratory Rate [Recovery] Respiratory Rate [Resting] Respiratory Effort / Characteristics Non-Labored Spontaneous Respiratory Depth Normal Respiratory Pattern Regular Blood Pressure 94/50 L Blood Pressure [Left Arm] Blood Pressure Mean 64 Blood Pressure Mean [Left Arm] Blood Pressure Position Sitting Blood Pressure Position [Left Arm] Pulse Oximetry 94 97 95 Pulse Oximetry [Exercises] Pulse Oximetry [Recovery] Pulse Oximetry [Resting] Oxygen Delivery Method Nasal Cannula Oxygen Flow Rate 6 Sepsis Recent Fever Within 48 Hours No Sepsis New/Unexplained Change in Mental Status No Sepsis Action Taken by Nursing No Action Required 05/30/20 13:10 05/30/20 13:26 05/30/20 13:28 Temperature Temperature Source Pulse Rate 76 79 Pulse Rate [Apical] 75 Pulse Rate [Exercises] Pulse Rate [Recovery] Pulse Rate [Resting] Pulse Rate from SpO2 Sensor 77 Pulse Rhythm Pulse Rhythm [Apical] Pulse Strength Respiratory Rate 31 H 24 18 Respiratory Rate [Exercises] Respiratory Rate [Recovery] Respiratory Rate [Resting] Respiratory Effort / Characteristics Spontaneous Respiratory Depth Respiratory Pattern Blood Pressure Blood Pressure [Left Arm] Blood Pressure Mean Blood Pressure Mean [Left Arm] Blood Pressure Position Blood Pressure Position [Left Arm] Pulse Oximetry 97 95 Pulse Oximetry [Exercises] Pulse Oximetry [Recovery] Pulse Oximetry [Resting] Oxygen Delivery Method Nasal Cannula Oxygen Flow Rate 6 Sepsis Recent Fever Within 48 Hours Sepsis New/Unexplained Change in Mental Status Sepsis Action Taken by Nursing 05/30/20 13:30 05/30/20 13:40 05/30/20 13:50 Temperature Temperature Source Pulse Rate 72 72 70 Pulse Rate [Apical] Pulse Rate [Exercises] Pulse Rate [Recovery] Pulse Rate [Resting] Pulse Rate from SpO2 Sensor 72 72 70 Pulse Rhythm Pulse Rhythm [Apical] Pulse Strength Respiratory Rate 24 16 24 Respiratory Rate [Exercises] Respiratory Rate [Recovery] Respiratory Rate [Resting] Respiratory Effort / Characteristics Respiratory Depth Respiratory Pattern Blood Pressure Blood Pressure [Left Arm] Blood Pressure Mean Blood Pressure Mean [Left Arm] Blood Pressure Position Blood Pressure Position [Left Arm] Pulse Oximetry 98 96 97 Pulse Oximetry [Exercises] Pulse Oximetry [Recovery] Pulse Oximetry [Resting] Oxygen Delivery Method Oxygen Flow Rate Sepsis Recent Fever Within 48 Hours Sepsis New/Unexplained Change in Mental Status Sepsis Action Taken by Nursing 05/30/20 14:00 05/30/20 14:06 05/30/20 14:08 Temperature Temperature Source Pulse Rate 72 69 Pulse Rate [Apical] 71 Pulse Rate [Exercises] Pulse Rate [Recovery] Pulse Rate [Resting] Pulse Rate from SpO2 Sensor 71 69 Pulse Rhythm Pulse Rhythm [Apical] Regular Pulse Strength Respiratory Rate 23 21 25 H Respiratory Rate [Exercises] Respiratory Rate [Recovery] Respiratory Rate [Resting] Respiratory Effort / Characteristics Respiratory Depth Normal Respiratory Pattern Blood Pressure 107/55 L Blood Pressure [Left Arm] 107/55 L Blood Pressure Mean 60 Blood Pressure Mean [Left Arm] 72 Blood Pressure Position Blood Pressure Position [Left Arm] Sitting Pulse Oximetry 97 97 95 Pulse Oximetry [Exercises] Pulse Oximetry [Recovery] Pulse Oximetry [Resting] Oxygen Delivery Method Nasal Cannula Oxygen Flow Rate 6 Sepsis Recent Fever Within 48 Hours Sepsis New/Unexplained Change in Mental Status Sepsis Action Taken by Nursing 05/30/20 14:10 05/30/20 14:20 05/30/20 14:30 Temperature Temperature Source Pulse Rate 70 66 66 Pulse Rate [Apical] Pulse Rate [Exercises] Pulse Rate [Recovery] Pulse Rate [Resting] Pulse Rate from SpO2 Sensor 69 Pulse Rhythm Pulse Rhythm [Apical] Pulse Strength Respiratory Rate 21 24 21 Respiratory Rate [Exercises] Respiratory Rate [Recovery] Respiratory Rate [Resting] Respiratory Effort / Characteristics Respiratory Depth Respiratory Pattern Blood Pressure Blood Pressure [Left Arm] Blood Pressure Mean Blood Pressure Mean [Left Arm] Blood Pressure Position Blood Pressure Position [Left Arm] Pulse Oximetry 95 Pulse Oximetry [Exercises] Pulse Oximetry [Recovery] Pulse Oximetry [Resting] Oxygen Delivery Method Oxygen Flow Rate Sepsis Recent Fever Within 48 Hours Sepsis New/Unexplained Change in Mental Status Sepsis Action Taken by Nursing 05/30/20 14:40 05/30/20 14:50 05/30/20 15:00 Temperature Temperature Source Pulse Rate 66 68 67 Pulse Rate [Apical] Pulse Rate [Exercises] Pulse Rate [Recovery] Pulse Rate [Resting] Pulse Rate from SpO2 Sensor Pulse Rhythm Pulse Rhythm [Apical] Pulse Strength Respiratory Rate 21 16 18 Respiratory Rate [Exercises] Respiratory Rate [Recovery] Respiratory Rate [Resting] Respiratory Effort / Characteristics Respiratory Depth Respiratory Pattern Blood Pressure Blood Pressure [Left Arm] Blood Pressure Mean Blood Pressure Mean [Left Arm] Blood Pressure Position Blood Pressure Position [Left Arm] Pulse Oximetry Pulse Oximetry [Exercises] Pulse Oximetry [Recovery] Pulse Oximetry [Resting] Oxygen Delivery Method Oxygen Flow Rate Sepsis Recent Fever Within 48 Hours Sepsis New/Unexplained Change in Mental Status Sepsis Action Taken by Nursing 05/30/20 15:08 05/30/20 15:30 05/30/20 15:44 Temperature Temperature Source Pulse Rate 66 66 Pulse Rate [Apical] Pulse Rate [Exercises] 98 H Pulse Rate [Recovery] 86 Pulse Rate [Resting] 82 Pulse Rate from SpO2 Sensor Pulse Rhythm Pulse Rhythm [Apical] Pulse Strength Respiratory Rate 24 19 Respiratory Rate [Exercises] 28 H Respiratory Rate [Recovery] 24 Respiratory Rate [Resting] 22 Respiratory Effort / Characteristics Respiratory Depth Respiratory Pattern Blood Pressure 99/67 L Blood Pressure [Left Arm] Blood Pressure Mean 75 Blood Pressure Mean [Left Arm] Blood Pressure Position Blood Pressure Position [Left Arm] Pulse Oximetry Pulse Oximetry [Exercises] 80 L Pulse Oximetry [Recovery] 92 Pulse Oximetry [Resting] 91 Oxygen Delivery Method Nasal Cannula Oxygen Flow Rate 6 Sepsis Recent Fever Within 48 Hours Sepsis New/Unexplained Change in Mental Status Sepsis Action Taken by Nursing 05/30/20 15:52 05/30/20 16:00 05/30/20 16:30 Temperature Temperature Source Pulse Rate 61 65 Pulse Rate [Apical] 65 Pulse Rate [Exercises] Pulse Rate [Recovery] Pulse Rate [Resting] Pulse Rate from SpO2 Sensor Pulse Rhythm Pulse Rhythm [Apical] Pulse Strength Respiratory Rate 22 20 17 Respiratory Rate [Exercises] Respiratory Rate [Recovery] Respiratory Rate [Resting] Respiratory Effort / Characteristics Non-Labored Spontaneous Respiratory Depth Normal Respiratory Pattern Blood Pressure Blood Pressure [Left Arm] 99/67 L Blood Pressure Mean Blood Pressure Mean [Left Arm] 77 Blood Pressure Position Blood Pressure Position [Left Arm] Pulse Oximetry 90 Pulse Oximetry [Exercises] Pulse Oximetry [Recovery] Pulse Oximetry [Resting] Oxygen Delivery Method Nasal Cannula Oxygen Flow Rate 6 Sepsis Recent Fever Within 48 Hours Sepsis New/Unexplained Change in Mental Status Sepsis Action Taken by Nursing 05/30/20 17:00 05/30/20 17:30 05/30/20 17:42 Temperature Temperature Source Pulse Rate 63 63 Pulse Rate [Apical] Pulse Rate [Exercises] Pulse Rate [Recovery] Pulse Rate [Resting] Pulse Rate from SpO2 Sensor 62 Pulse Rhythm Pulse Rhythm [Apical] Pulse Strength Respiratory Rate 25 H 25 H Respiratory Rate [Exercises] Respiratory Rate [Recovery] Respiratory Rate [Resting] Respiratory Effort / Characteristics Respiratory Depth Respiratory Pattern Blood Pressure 125/60 Blood Pressure [Left Arm] Blood Pressure Mean 79 Blood Pressure Mean [Left Arm] Blood Pressure Position Blood Pressure Position [Left Arm] Pulse Oximetry 95 Pulse Oximetry [Exercises] Pulse Oximetry [Recovery] Pulse Oximetry [Resting] Oxygen Delivery Method Nasal Cannula Oxygen Flow Rate 6 Sepsis Recent Fever Within 48 Hours Sepsis New/Unexplained Change in Mental Status Sepsis Action Taken by Nursing 05/30/20 18:00 05/30/20 18:30 Temperature Temperature Source Pulse Rate 60 59 L Pulse Rate [Apical] Pulse Rate [Exercises] Pulse Rate [Recovery] Pulse Rate [Resting] Pulse Rate from SpO2 Sensor Pulse Rhythm Pulse Rhythm [Apical] Pulse Strength Respiratory Rate 20 26 H Respiratory Rate [Exercises] Respiratory Rate [Recovery] Respiratory Rate [Resting] Respiratory Effort / Characteristics Respiratory Depth Respiratory Pattern Blood Pressure 121/68 Blood Pressure [Left Arm] Blood Pressure Mean 85 Blood Pressure Mean [Left Arm] Blood Pressure Position Blood Pressure Position [Left Arm] Pulse Oximetry Pulse Oximetry [Exercises] Pulse Oximetry [Recovery] Pulse Oximetry [Resting] Oxygen Delivery Method Oxygen Flow Rate Sepsis Recent Fever Within 48 Hours Sepsis New/Unexplained Change in Mental Status Sepsis Action Taken by Nursing Vital signs reviewed. General: Chronically ill-appearing 70-year-old male, in no significant distress. HEENT: No scleral icterus, PERRLA, neck supple. Atraumatic. Cardiovascular: Regular rate and rhythm, no extra sounds. Pulmonary: Decreased but coarse breath sounds bilaterally, dry cough, on nasal cannula oxygen. Increased work of breathing. Abdomen: Soft, nontender, nondistended, positive bowel sounds. Musculoskeletal: Atraumatic, no peripheral edema. Neurologic: Patient awake alert and oriented x 3 Skin: Warm, dry, no rash Course Administered Medications Hydrocodone Bitart/Acetaminophen (Hydrocodone/Acetamophen 5/325mg Tab) 1 tab PO Q6H PRN PRN Reason: Pain Stop: 06/14/20 17:46 Last Admin: 06/01/20 00:31 Dose: 1 tab Documented by: [id number] Admin: 05/31/20 17:53 Dose: 1 tab Documented by: [id number] Buspirone HCl (Buspirone 5 Mg Tab) 5 mg PO QPM [facility] Stop: 06/29/20 20:59 Last Admin: 05/31/20 21:35 Dose: 5 mg Documented by: [id number] Admin: 05/30/20 21:45 Dose: 5 mg Documented by: [id number] Ferrous Sulfate (Ferrous Sulfate 325 Mg Tab) 325 mg PO QAM [facility] Stop: 06/30/20 08:59 Last Admin: 05/31/20 08:22 Dose: 325 mg Documented by: [id number] Fluticasone/Vilanterol (Fluticasone/Vilanterol 100/25mcg 14 Puffs/Inhaler) 1 puffs INH DAILY [facility]; Protocol Stop: 06/30/20 08:59 Last Admin: 05/31/20 08:21 Dose: 1 puffs Documented by: [id number] Folic Acid (Folic Acid 1 Mg Tab) 1 mg PO QAM [facility] Stop: 06/30/20 08:59 Last Admin: 05/31/20 08:22 Dose: 1 mg Documented by: [id number] Guaifenesin (Guaifenesin 200 Mg Tab) 400 mg PO BID [facility] Stop: 06/29/20 20:59 Last Admin: 05/31/20 21:35 Dose: 400 mg Documented by: [id number] Admin: 05/31/20 08:21 Dose: 400 mg Documented by: [id number] Admin: 05/30/20 21:44 Dose: 400 mg Documented by: [id number] Remdesivir 100 mg/ Sodium (Chloride) 250 mls @ 250 mls/hr IV Q24H [facility]; Protocol Stop: 06/03/20 20:59 Last Infusion: 06/01/20 00:32 Dose: 0 mls/hr Documented by: [id number] Admin: 05/31/20 21:33 Dose: 250 mls/hr Documented by: [id number] Dexamethasone 6 mg/ Syringe 1.5 mls @ 1 mls/min IV DAILY [facility] Stop: 06/10/20 08:59 Last Admin: 05/31/20 08:21 Dose: 1 mls/min Documented by: [id number] Pantoprazole Sodium (Pantoprazole 40 Mg Tab) 40 mg PO BID [facility]; Protocol Stop: 06/29/20 20:59 Last Admin: 05/31/20 21:36 Dose: 40 mg Documented by: [id number] Admin: 05/31/20 08:22 Dose: 40 mg Documented by: [id number] Admin: 05/30/20 21:47 Dose: 40 mg Documented by: [id number] Sertraline HCl (Sertraline Hcl 100 Mg Tablet) 200 mg PO HS [facility] Stop: 06/29/20 20:59 Last Admin: 05/31/20 21:37 Dose: 200 mg Documented by: [id number] Admin: 05/30/20 21:46 Dose: 200 mg Documented by: [id number] Sodium Chloride (Sodium Chloride 0.9% 10ml Flush) 30 ml IV Q24H [facility] Stop: 06/03/20 18:01 Last Admin: 06/01/20 00:32 Dose: 30 ml Documented by: [id number] Admin: 05/30/20 22:03 Dose: 30 ml Documented by: [id number] Trazodone HCl (Trazodone Hcl 50 Mg Tab) 150 mg PO [facility] Stop: 06/29/20 20:59 Last Admin: 05/31/20 21:34 Dose: 150 mg Documented by: [id number] Admin: 05/30/20 21:46 Dose: 150 mg Documented by: [id number] Umeclidinium [place] (Umeclidinium [place] 62.5mcg/Blister 7 Puffs/Inhaler) 1 puffs INH QPM [facility] Stop: 06/29/20 20:59 Last Admin: 05/31/20 21:37 Dose: 1 puffs Documented by: [id number] Admin: 05/31/20 00:15 Dose: 1 puffs Documented by: [id number] Vitamin D (Cholecalciferol 1,000 Units 25 Mcg Tab) 1,000 units PO QAM [facility] Stop: 06/30/20 08:59 Last Admin: 05/31/20 08:22 Dose: 1,000 units Documented by: [id number] Discontinued Medications Hydrocodone Bitart/Acetaminophen (Hydrocodone/Acetamophen 5/325mg Tab) 1 tab PO NOW STA Stop: 05/30/20 13:45 Last Admin: 05/30/20 14:05 Dose: 1 tab Documented by: [id number] Hydrocodone Bitart/Acetaminophen (Hydrocodone/Acetamophen 5/325mg Tab) 1 tab PO ONE ONE Stop: 05/30/20 18:34 Last Admin: 05/30/20 19:10 Dose: 1 tab Documented by: [id number] Hydrocodone Bitart/Acetaminophen (Hydrocodone/Acetamophen 5/325mg Tab) Confirm Administered Dose 1 tab PO .STK-MED ONE Stop: 05/31/20 17:52 Last Admin: 05/31/20 17:53 Dose: Not Given Documented by: [id number] Albuterol (Albut/Ipratrop 3mg/0.5mg Neb 3 Ml Vial) 3 ml INH NOW STA Stop: 05/30/20 13:00 Last Admin: 05/30/20 13:28 Dose: 3 ml Documented by: [id number] Enoxaparin Sodium (Enoxaparin Inj 40 Mg/0.4 Ml Syr) 40 mg SQ Q12H [facility] Stop: 06/29/20 20:59 Last Admin: 05/31/20 08:22 Dose: 40 mg Documented by: [id number] Admin: 05/30/20 21:47 Dose: 40 mg Documented by: [id number] Remdesivir 200 mg/ Sodium (Chloride) 250 mls @ 125 mls/hr IV ONE STA; Protocol Stop: 05/30/20 18:19 Last Infusion: 05/30/20 22:09 Dose: 0 mls/hr Documented by: [id number] Admin: 05/30/20 17:40 Dose: 125 mls/hr Documented by: [id number] Sodium Chloride (Nss) 500 mls @ 80 mls/hr IV .Q6H15M [facility] Stop: 05/31/20 02:36 Last Infusion: 05/31/20 06:45 Dose: 0 mls/hr Documented by: [id number] Admin: 05/31/20 00:14 Dose: 80 mls/hr Documented by: [id number] Methylprednisolone (Methylprednisolone 125 Mg/2 Ml Vial) 60 mg IV NOW STA Stop: 05/30/20 13:00 Last Admin: 05/30/20 13:45 Dose: 60 mg Documented by: [id number] Medical Decision Making Differential Diagnosis Reactive airway disease, pneumonia, pneumothorax, COPD, CHF, infections, cardiac ischemia, pulmonary embolism, musculoskeletal, gastrointestinal, as well as other pathologies. Medical Records Attestation: I reviewed the patient's medical records. Home Medications Current Medication List: was personally reviewed by me Laboratory Data Attestation: I reviewed the patient's lab results. Result diagrams: 05/31/20 07:18 05/31/20 07:18 Lab Results 05/30/20 05/30/20 05/30/20 Range/Units 13:30 13:30 13:30 WBC 5.14 (4.8-10.8) K/uL RBC 4.05 L (4.7-6.1) M/uL Hgb 12.5 L (14.0-18.0) g/dL Hct 37.4 L (42-52) % MCV 92.3 (80-100) fL MCH 30.9 (25-34) pg MCHC 33.4 (32-36) g/dL RDW Std Deviation 48.1 H (36.4-46.3) fL RDW Coeff of Ren 14.2 (11.5-14.5) % Plt Count 89 L (130-400) K/uL MPV 9.5 (7.4-10.4) fL Immature Gran % (Auto) 0.4 % Neut % (Auto) 71.0 % Lymph % (Auto) 18.1 % [place] % (Auto) 10.1 % Eos % (Auto) 0.2 % Baso % (Auto) 0.2 % Neut # (Auto) 3.65 (1.4-6.5) K/uL Lymph # (Auto) 0.93 L (1.2-3.4) K/uL [place] # (Auto) 0.52 (0.11-0.59) K/uL Eos # (Auto) 0.01 (0-0.5) K/uL Baso # (Auto) 0.01 (0-0.2) K/uL Immature Gran # (Auto) 0.02 (0.00-0.02) K/uL Platelet Estimate Decreased L (Normal) PT 10.9 (9.0-12.0) Seconds INR 1.0 (0.9-1.1) APTT 33.3 H (21.0-31.0) Seconds PTT Ratio 1.2 D-Dimer (0-500) ug/L FEU Sodium 135 L (136-145) mmol/L Potassium 4.0 (3.5-5.1) mmol/L Chloride 100 (98-107) mmol/L Carbon Dioxide 29 (21-32) mmol/L Anion Gap 6.0 (3-11) BUN 15 (7-18) mg/dl Creatinine 1.06 (0.6-1.4) mg/dl Est Cr Clr Drug Dosing 67.0 ml/min Est GFR ( Amer) 82.0 Est GFR (Non-Af Amer) 70.8 BUN/Creatinine Ratio 14.2 (10-20) Glucose 103 H (70-99) mg/dl Calcium 8.0 L (8.5-10.1) mg/dl Magnesium 2.0 (1.8-2.4) mg/dl Ferritin (8-388) ng/ml Total Bilirubin 0.5 (0.2-1) mg/dl AST 80 H (15-37) U/L ALT 45 (12-78) U/L Alkaline Phosphatase 72 (45-117) U/L Total Creatine Kinase (39-308) U/L Troponin I < 0.015 (0-0.045) ng/ml Total Protein 6.6 (6.4-8.2) gm/dl Albumin 3.2 L (3.4-5.0) gm/dl Globulin 3.4 (2.5-4.0) gm/dl Albumin/Globulin Ratio 0.9 (0.9-2) Procalcitonin (0-0.5) ng/ml Urine Color Urine Appearance (Clear) Urine pH (4.5-7.5) Ur Specific [place] (1.000-1.030) Urine Protein (Negative) Urine Glucose (UA) (Negative) Urine Ketones (Negative) Urine Blood (Negative) Urine Nitrite (Negative) Urine Bilirubin (Negative) Urine Urobilinogen (Negative) Ur Leukocyte Esterase (Negative) Urine WBC (Auto) (0-5) /hpf Urine RBC (Auto) (0-4) /hpf U Hyaline Cast (Auto) (0-5) /lpf U Epithel Cells (Auto) (0-5) /lpf Urine Bacteria (Auto) (Negative) Urine Yeast (None Prsent) Anaplasma Smear See Comment Lyme Disease IgG Ab (Negative) Lyme Disease IgM Ab (Negative) COVID-19 Eval Order SARS-CoV-2, RNA, NAAT (NEGATIVE) 05/30/20 05/30/20 05/30/20 Range/Units 13:30 13:30 13:30 WBC (4.8-10.8) K/uL RBC (4.7-6.1) M/uL Hgb (14.0-18.0) g/dL Hct (42-52) % MCV (80-100) fL MCH (25-34) pg MCHC (32-36) g/dL RDW Std Deviation (36.4-46.3) fL RDW Coeff of Ren (11.5-14.5) % Plt Count (130-400) K/uL MPV (7.4-10.4) fL Immature Gran % (Auto) % Neut % (Auto) % Lymph % (Auto) % [place] % (Auto) % Eos % (Auto) % Baso % (Auto) % Neut # (Auto) (1.4-6.5) K/uL Lymph # (Auto) (1.2-3.4) K/uL [place] # (Auto) (0.11-0.59) K/uL Eos # (Auto) (0-0.5) K/uL Baso # (Auto) (0-0.2) K/uL Immature Gran # (Auto) (0.00-0.02) K/uL Platelet Estimate (Normal) PT (9.0-12.0) Seconds INR (0.9-1.1) APTT (21.0-31.0) Seconds PTT Ratio D-Dimer (0-500) ug/L FEU Sodium (136-145) mmol/L Potassium (3.5-5.1) mmol/L Chloride (98-107) mmol/L Carbon Dioxide (21-32) mmol/L Anion Gap (3-11) BUN (7-18) mg/dl Creatinine (0.6-1.4) mg/dl Est Cr Clr Drug Dosing ml/min Est GFR ( Amer) Est GFR (Non-Af Amer) BUN/Creatinine Ratio (10-20) Glucose (70-99) mg/dl Calcium (8.5-10.1) mg/dl Magnesium (1.8-2.4) mg/dl Ferritin (8-388) ng/ml Total Bilirubin (0.2-1) mg/dl AST (15-37) U/L ALT (12-78) U/L Alkaline Phosphatase (45-117) U/L Total Creatine Kinase (39-308) U/L Troponin I (0-0.045) ng/ml Total Protein (6.4-8.2) gm/dl Albumin (3.4-5.0) gm/dl Globulin (2.5-4.0) gm/dl Albumin/Globulin Ratio (0.9-2) Procalcitonin (0-0.5) ng/ml Urine Color Dark Yellow Urine Appearance Cloudy A (Clear) Urine pH 5.5 (4.5-7.5) Ur Specific [place] 1.021 (1.000-1.030) Urine Protein 1+ H (Negative) Urine Glucose (UA) Negative (Negative) Urine Ketones Negative (Negative) Urine Blood 2+ H (Negative) Urine Nitrite Negative (Negative) Urine Bilirubin Negative (Negative) Urine Urobilinogen Negative (Negative) Ur Leukocyte Esterase 2+ H (Negative) Urine WBC (Auto) >30 H (0-5) /hpf Urine RBC (Auto) 0-4 (0-4) /hpf U Hyaline Cast (Auto) 5-10 H (0-5) /lpf U Epithel Cells (Auto) 0-5 (0-5) /lpf Urine Bacteria (Auto) Negative (Negative) Urine Yeast Budding w/ Hyphae A (None Prsent) Anaplasma Smear Cancelled Lyme Disease IgG Ab Negative (Negative) Lyme Disease IgM Ab Negative (Negative) COVID-19 Eval Order SARS-CoV-2, RNA, NAAT (NEGATIVE) 05/30/20 05/30/20 05/30/20 Range/Units 13:30 13:30 13:30 WBC (4.8-10.8) K/uL RBC (4.7-6.1) M/uL Hgb (14.0-18.0) g/dL Hct (42-52) % MCV (80-100) fL MCH (25-34) pg MCHC (32-36) g/dL RDW Std Deviation (36.4-46.3) fL RDW Coeff of Ren (11.5-14.5) % Plt Count (130-400) K/uL MPV (7.4-10.4) fL Immature Gran % (Auto) % Neut % (Auto) % Lymph % (Auto) % [place] % (Auto) % Eos % (Auto) % Baso % (Auto) % Neut # (Auto) (1.4-6.5) K/uL Lymph # (Auto) (1.2-3.4) K/uL [place] # (Auto) (0.11-0.59) K/uL Eos # (Auto) (0-0.5) K/uL Baso # (Auto) (0-0.2) K/uL Immature Gran # (Auto) (0.00-0.02) K/uL Platelet Estimate (Normal) PT (9.0-12.0) Seconds INR (0.9-1.1) APTT (21.0-31.0) Seconds PTT Ratio D-Dimer 410 (0-500) ug/L FEU Sodium (136-145) mmol/L Potassium (3.5-5.1) mmol/L Chloride (98-107) mmol/L Carbon Dioxide (21-32) mmol/L Anion Gap (3-11) BUN (7-18) mg/dl Creatinine (0.6-1.4) mg/dl Est Cr Clr Drug Dosing ml/min Est GFR ( Amer) Est GFR (Non-Af Amer) BUN/Creatinine Ratio (10-20) Glucose (70-99) mg/dl Calcium (8.5-10.1) mg/dl Magnesium (1.8-2.4) mg/dl Ferritin 262.3 (8-388) ng/ml Total Bilirubin (0.2-1) mg/dl AST (15-37) U/L ALT (12-78) U/L Alkaline Phosphatase (45-117) U/L Total Creatine Kinase 371 H (39-308) U/L Troponin I (0-0.045) ng/ml Total Protein (6.4-8.2) gm/dl Albumin (3.4-5.0) gm/dl Globulin (2.5-4.0) gm/dl Albumin/Globulin Ratio (0.9-2) Procalcitonin < 0.05 (0-0.5) ng/ml Urine Color Urine Appearance (Clear) Urine pH (4.5-7.5) Ur Specific [place] (1.000-1.030) Urine Protein (Negative) Urine Glucose (UA) (Negative) Urine Ketones (Negative) Urine Blood (Negative) Urine Nitrite (Negative) Urine Bilirubin (Negative) Urine Urobilinogen (Negative) Ur Leukocyte Esterase (Negative) Urine WBC (Auto) (0-5) /hpf Urine RBC (Auto) (0-4) /hpf U Hyaline Cast (Auto) (0-5) /lpf U Epithel Cells (Auto) (0-5) /lpf Urine Bacteria (Auto) (Negative) Urine Yeast (None Prsent) Anaplasma Smear Lyme Disease IgG Ab (Negative) Lyme Disease IgM Ab (Negative) COVID-19 Eval Order SARS-CoV-2, RNA, NAAT (NEGATIVE) 05/30/20 05/30/20 Range/Units 14:12 14:12 WBC (4.8-10.8) K/uL RBC (4.7-6.1) M/uL Hgb (14.0-18.0) g/dL Hct (42-52) % MCV (80-100) fL MCH (25-34) pg MCHC (32-36) g/dL RDW Std Deviation (36.4-46.3) fL RDW Coeff of Ren (11.5-14.5) % Plt Count (130-400) K/uL MPV (7.4-10.4) fL Immature Gran % (Auto) % Neut % (Auto) % Lymph % (Auto) % [place] % (Auto) % Eos % (Auto) % Baso % (Auto) % Neut # (Auto) (1.4-6.5) K/uL Lymph # (Auto) (1.2-3.4) K/uL [place] # (Auto) (0.11-0.59) K/uL Eos # (Auto) (0-0.5) K/uL Baso # (Auto) (0-0.2) K/uL Immature Gran # (Auto) (0.00-0.02) K/uL Platelet Estimate (Normal) PT (9.0-12.0) Seconds INR (0.9-1.1) APTT (21.0-31.0) Seconds PTT Ratio D-Dimer (0-500) ug/L FEU Sodium (136-145) mmol/L Potassium (3.5-5.1) mmol/L Chloride (98-107) mmol/L Carbon Dioxide (21-32) mmol/L Anion Gap (3-11) BUN (7-18) mg/dl Creatinine (0.6-1.4) mg/dl Est Cr Clr Drug Dosing ml/min Est GFR ( Amer) Est GFR (Non-Af Amer) BUN/Creatinine Ratio (10-20) Glucose (70-99) mg/dl Calcium (8.5-10.1) mg/dl Magnesium (1.8-2.4) mg/dl Ferritin (8-388) ng/ml Total Bilirubin (0.2-1) mg/dl AST (15-37) U/L ALT (12-78) U/L Alkaline Phosphatase (45-117) U/L Total Creatine Kinase (39-308) U/L Troponin I (0-0.045) ng/ml Total Protein (6.4-8.2) gm/dl Albumin (3.4-5.0) gm/dl Globulin (2.5-4.0) gm/dl Albumin/Globulin Ratio (0.9-2) Procalcitonin (0-0.5) ng/ml Urine Color Urine Appearance (Clear) Urine pH (4.5-7.5) Ur Specific [place] (1.000-1.030) Urine Protein (Negative) Urine Glucose (UA) (Negative) Urine Ketones (Negative) Urine Blood (Negative) Urine Nitrite (Negative) Urine Bilirubin (Negative) Urine Urobilinogen (Negative) Ur Leukocyte Esterase (Negative) Urine WBC (Auto) (0-5) /hpf Urine RBC (Auto) (0-4) /hpf U Hyaline Cast (Auto) (0-5) /lpf U Epithel Cells (Auto) (0-5) /lpf Urine Bacteria (Auto) (Negative) Urine Yeast (None Prsent) Anaplasma Smear Lyme Disease IgG Ab (Negative) Lyme Disease IgM Ab (Negative) COVID-19 Eval Order Covid19 [facility] SARS-CoV-2, RNA, NAAT POSITIVE A* (NEGATIVE) Imaging Data Radiologist's Impression: XR chest 1V portable CLINICAL HISTORY: Dyspnea COMPARISON STUDY: 12/06/2019 FINDINGS: The heart is normal in size. There is prominence of central pulmonary arteries suggesting pulmonary arterial hypertension. There is underlying pulmonary emphysema. There are persistent bilateral interstitial opacities with a basilar predominance.[ IMPRESSION: 1. Pulmonary emphysema 2. Radiographic evidence of pulmonary arterial hypertension 3. Relatively stable mid to lower lung zone interstitial opacities ACT 112: Negative or not required by law. Electronically signed by: Herman Thornton M.D. 05/30/2020 2:02 PM Dictated: 05/30/20 1400Transcribed: 05/30/20 1400 ECG Data Attestation: I personally reviewed and interpreted this ECG as follows: Indication: + SOB/dyspnea Rate (beats per minute): 77 Rhythm: + normal sinus ECG Intervals/blocks: + Normal QT-c ECG [place]: + Normal ECG ST segments: + Nonspecific ST abnormalities ECG Findings: no PACs and no PVCs Blood Pressure Blood Pressure Findings: Low blood pressure Blood Pressure Disposition: further management by hospitalist MDM Narrative This patient was evaluated and appeared to be in no significant distress. Patient was placed in isolation. IV access was obtained and laboratory work was drawn. An order for cardiac monitoring was noted to be in a normal sinus rhythm at 79 bpm. Patient's blood pressure and oxygenation have remained stable on 6 L nasal cannula. Patient was given 60 mg of IV Solu-Medrol and a DuoNeb treatment. Chest x-ray was performed and reveals evidence of his emphysema with pulmonary arterial hypertension and stable mid to lower lung zone opacities. Patient has tested positive for Covid. Patient's laboratory work is fairly reassuring with a normal WBC and negative troponin. Patient did request somethi ng for pain and was given a [place] tablet p.o. Given the patient's chronic lung condition and frail state with 6 L nasal cannula oxygen dependency and positive Covid status, patient will be evaluated by the hospitalist service for further evaluation and management. Patient is aware of the plan and agrees. Impression & Plan Acute exacerbation of chronic obstructive pulmonary disease, Oxygen dependent, COVID-19 Discharge Plan Visit Data Chief Complaint: Shortness of Breath/Dyspnea Stated Complaint: sob hx copd cough dizzy ED Provider: Kiah Banks Discharge Problem: Acute exacerbation of chronic obstructive pulmonary disease, Oxygen dependent, COVID-19 Patient Disposition: Admitted As Inpatient Discharge Instructions Interventions: ED Discharge Assessment Last Done: 05/30/20 19:03
[2020-05-30] MEDS ORDERED: ALBUTEROL 0.083% NEBU SOLN 3 ML VIAL INH PRN (20:22)
[2020-05-30] MEDS ORDERED: SODIUM CHLORIDE 0.9% 500 ML IV SCH (20:22)
[2020-05-30] MEDS ORDERED: EPINEPHrine ADULT AUTO-INJECT 0.3 MG SYR IM PRN (20:22)
[2020-05-30] MEDS ORDERED: ACETAMINOPHEN 325 MG TAB PO PRN (20:22)
[2020-05-30] MEDS ORDERED: CETIRIZINE HCL 10 MG TABLET PO PRN (20:22)
[2020-05-30] MEDS ORDERED: POLYETHYLENE (MIRALAX) 17 GM PACK PO PRN (20:22)
[2020-05-30] MEDS ORDERED: ALBUTEROL HFA 8 GM INHALER INH PRN (20:22)
[2020-05-30] MEDS: guaiFENesin 200 MG TAB PO SCH (21:44)
[2020-05-30] MEDS: busPIRone 5 MG TAB PO SCH (21:45)
[2020-05-30] MEDS: SERTRALINE HCL 100 MG TABLET PO SCH (21:46)
[2020-05-30] MEDS: traZODone HCL 50 MG TAB PO SCH (21:46)
[2020-05-30] MEDS: ENOXAPARIN INJ 40 MG/0.4 ML SYR SQ SCH (21:47)
[2020-05-30] MEDS: PANTOprazole 40 MG TAB PO SCH (21:47)
[2020-05-30] MEDS: SODIUM CHLORIDE 0.9% 10ML FLUSH IV SCH (22:03)
[2020-05-31] MEDS: UMECLIDINIUM BROMIDE 62.5MCG/BLISTER 7 PUFFS/INHALER INH SCH ×2 (00:15→21:37)
[2020-05-31 08:01] LABS: Hematocrit (blood only) 38.2 % (42-52); Hemoglobin 12.5 g/dL (14.0-18.0); Mean Corpuscular Hemoglobin 30.2 pg (25-34); Mean Corpuscular Hgb Conc 32.7 g/dL (32-36); Mean Corpuscular Volume 92.3 fL (80-100); RDW Coefficient of Variation 13.9 % (11.5-14.5); RDW Standard Deviation 46.9 fL (36.4-46.3); Red Blood Count 4.14 M/uL (4.7-6.1); White Blood Count 3.29 K/uL (4.8-10.8)
[2020-05-31 08:04] LABS: Mean Platelet Volume 9.5 fL (7.4-10.4); Platelet Count 83 K/uL (130-400)
[2020-05-31] MEDS: dexAMETHasone 6 MG in SYRINGE 0 ML IV SCH (08:21)
[2020-05-31] MEDS: FLUTICASONE/VILANTEROL 100/25MCG 14 PUFFS/INHALER INH SCH (08:21)
[2020-05-31] MEDS: guaiFENesin 200 MG TAB PO SCH ×2 (08:21→21:35)
[2020-05-31] MEDS: FERROUS SULFATE 325 MG TAB PO SCH (08:22)
[2020-05-31] MEDS: PANTOprazole 40 MG TAB PO SCH ×2 (08:22→21:36)
[2020-05-31] MEDS: FOLIC ACID 1 MG TAB PO SCH (08:22)
[2020-05-31] MEDS: CHOLECALCIFEROL 1,000 UNITS 25 MCG TAB PO SCH (08:22)
[2020-05-31] MEDS: ENOXAPARIN INJ 40 MG/0.4 ML SYR SQ SCH (08:22)
[2020-05-31 08:31] LABS: Albumin Level 2.9 gm/dl (3.4-5.0); BUN Creatinine Ratio 17.4 (10-20); C Reactive Protein 5.58 mg/dl (0-0.29); Calcium 8.3 mg/dl (8.5-10.1); Creatinine Clr Calc Pharmacy 78.9 ml/min; Est GFR (African American) 99.9; Est GFR (Non-African American) 86.2; Potassium 4.2 mmol/L (3.5-5.1)
[2020-05-31 08:36] LABS: Albumin Globulin Ratio 0.9 (0.9-2); Bilirubin,Total 0.4 mg/dl (0.2-1); Ferritin 230.4 ng/ml (8-388); Globulin 3.2 gm/dl (2.5-4.0); Total Protein 6.1 gm/dl (6.4-8.2)
--- NOTE | 2020-05-31 15:55 | Electrocardiogram Report ---
Test Reason : Blood Pressure : / mmHG Vent. Rate : 077 BPM Atrial Rate : 077 BPM P-R Int : 148 ms QRS Dur : 072 ms QT Int : 378 ms P-R-T Axes : 053 -22 073 degrees QTc Int : 427 ms Poor data quality, interpretation may be adversely affected Normal sinus rhythm Nonspecific ST abnormality Abnormal ECG When compared with ECG of 06-DEC-2019 05:35, No significant change was found Confirmed by Alonso Lo ([id number]) on 05/31/2020 3:55:16 PM Referred By: REFERRED SELF Confirmed By:Alonso Lo
[2020-05-31] MEDS ORDERED: ACETAMINOPHEN 325 MG TAB PO ONE (16:30)
[2020-05-31] MEDS ORDERED: HYDROCODONE/ACETAMOPHEN 5/325MG TAB PO ONE (17:51)
[2020-05-31] MEDS: HYDROCODONE/ACETAMOPHEN 5/325MG TAB PO PRN (17:53)
--- NOTE | 2020-05-31 19:23 | Hospitalist Progress Note ---
Date of Service May 31, 2020 Assessment & Plan (1) Acute on chronic respiratory failure with hypoxia: (2) COVID-19: Admitting service notes This is a 70yo M with a PMH of severe COPD on 6 L NC O2 at baseline, depression, anxiety, cirrhosis and other medical problems listed below who presents with worsening SOB and dizziness x 3 days and was found to be covid positive. -Covid positive test today, 05/30. Symptomatic with dizziness, SOB and cough x 3 days -Saturating at 90% on 6 L NC at rest, which is baseline but becomes hypoxic to mid-80s with any ambulation -VBG pH 7.36, d-dimer, troponin, procalcitonin all within normal limits. Lyme ab negative. Anaplasma smear pending -Given solumedrol 60mg IV in ED. Plan to continue steroids with 6mg IV dexamethasone daily. Started day 1 of 5 Remdesivir -Discussed option of convalescent plasma-patient declined 05/31/2020 Patient now back to baseline 6 L from 8 L of oxygen via nasal cannula Continue day #2 of remdesivir and Decadron Patient requesting convalescent plasma today Lovenox subcu for DVT prophylaxis Incentive spirometry, flutter valve (3) COPD (chronic obstructive pulmonary disease) with emphysema: No wheezing today continue home nebs, Symbicort, Spiriva (4) PTSD (post-traumatic stress disorder): (5) Depression: (6) Anxiety: Continue Zoloft, buspar (7) GERD (gastroesophageal reflux disease): Continue PPI (8) Cirrhosis of liver: Former drinker. monitor LFTs DVT Ppx: SQ Lovenox Code status: CONDITIONAL CODE- YES to CPR, cardiac defibrillation resuscitative efforts but NO intubation or mechanical ventilation PCP: Burak [facility] Dispo: Lives with family at home, anticipate discharge home medically stable Admission and Anticipated Discharge Date Admission Date: May 30, 2020 Subjective Follow-up for COVID-19 pneumonia, COPD on 6 L of oxygen via nasal cannula etc. Seen resting in bed sitting up, comfortable, on 6 L of O2 via nasal States breathing is improved today compared to yesterday Less cough, no chest pain No abdominal pain, no nausea no diarrhea No other symptoms, Review of Systems Review of Systems: All systems reviewed & are unremarkable except as noted in Subjective Physical Exam Physical Exam: General- oriented x 3, not in distress, speaks in sentences with no effort or accessory muscle use Head- atraumatic Eyes- PERRL, EOMI, anicteric ENT- oropharynx clear Neck- supple, no JVD, no adenopathy, no thyromegaly; carotids +2/2, no bruits appreciated Lungs-diminished breath sounds bilaterally, mild rales at the bases, no wheezing Heart- normal rate, regular rhythm; no murmur, no gallop, no rub appreciated Abdomen- normal bowel sounds, nondistended, soft, nontender, no masses or hepatosplenomegaly Extremities- no pretibial edema, no calf tenderness; peripheral pulses intact Neuro- alert, oriented x 3; CN 2-12 grossly intact; motor 5/5 bilaterally;sensation 100% on all extremities; no other gross focal neurologic deficits Skin- warm & dry Results & Data Results & Data ([facility]) Vital Signs (Past 12 Hours) Vital Signs Temp Pulse Pulse Resp BP Pulse Ox 05/31/20 15:41 36.4 C L 64 19 145/77 H 92 05/31/20 11:22 36.4 C L 58 L 20 118/76 95 05/31/20 08:35 60 05/31/20 08:29 93 05/31/20 07:55 36.4 C L 55 L 18 112/74 93
[2020-05-31] MEDS: REMDESIVIR 100 MG in SODIUM CHLORIDE 0.9% 230 ML IV SCH (21:33)
[2020-05-31] MEDS: traZODone HCL 50 MG TAB PO SCH (21:34)
[2020-05-31] MEDS: busPIRone 5 MG TAB PO SCH (21:35)
[2020-05-31] MEDS: SERTRALINE HCL 100 MG TABLET PO SCH (21:37)
[2020-06-01] MEDS: HYDROCODONE/ACETAMOPHEN 5/325MG TAB PO PRN ×4 (00:31→23:58)
[2020-06-01] MEDS: SODIUM CHLORIDE 0.9% 10ML FLUSH IV SCH ×2 (00:32→22:37)
[2020-06-01 07:14] LABS: Hematocrit (blood only) 36.2 % (42-52); Hemoglobin 12.1 g/dL (14.0-18.0); Mean Corpuscular Hemoglobin 30.6 pg (25-34); Mean Corpuscular Hgb Conc 33.4 g/dL (32-36); Mean Corpuscular Volume 91.6 fL (80-100); Mean Platelet Volume 10.5 fL (7.4-10.4); Platelet Count 108 K/uL (130-400); RDW Coefficient of Variation 13.7 % (11.5-14.5); RDW Standard Deviation 45.9 fL (36.4-46.3); Red Blood Count 3.95 M/uL (4.7-6.1); White Blood Count 6.85 K/uL (4.8-10.8)
[2020-06-01 07:41] LABS: Albumin Level 2.9 gm/dl (3.4-5.0); BUN Creatinine Ratio 18.8 (10-20); Calcium 8.3 mg/dl (8.5-10.1); Creatinine Clr Calc Pharmacy 77.1 ml/min; Est GFR (African American) 97.3; Potassium 3.7 mmol/L (3.5-5.1)
[2020-06-01 07:44] LABS: Albumin Globulin Ratio 0.9 (0.9-2); Bilirubin,Total 0.4 mg/dl (0.2-1); Globulin 3.3 gm/dl (2.5-4.0); Total Protein 6.2 gm/dl (6.4-8.2)
[2020-06-01] MEDS: dexAMETHasone 6 MG in SYRINGE 0 ML IV SCH (08:33)
[2020-06-01] MEDS: ENOXAPARIN INJ 40 MG/0.4 ML SYR SQ SCH (08:34)
[2020-06-01] MEDS: FLUTICASONE/VILANTEROL 100/25MCG 14 PUFFS/INHALER INH SCH (08:34)
[2020-06-01] MEDS: FOLIC ACID 1 MG TAB PO SCH (08:35)
[2020-06-01] MEDS: CHOLECALCIFEROL 1,000 UNITS 25 MCG TAB PO SCH (08:35)
[2020-06-01] MEDS: guaiFENesin 200 MG TAB PO SCH ×2 (08:35→20:40)
[2020-06-01] MEDS: PANTOprazole 40 MG TAB PO SCH ×2 (08:35→20:40)
[2020-06-01] MEDS: FERROUS SULFATE 325 MG TAB PO SCH (08:35)
[2020-06-01] MEDS: REMDESIVIR 100 MG in SODIUM CHLORIDE 0.9% 230 ML IV SCH (20:34)
[2020-06-01] MEDS: UMECLIDINIUM BROMIDE 62.5MCG/BLISTER 7 PUFFS/INHALER INH SCH (20:39)
[2020-06-01] MEDS: SERTRALINE HCL 100 MG TABLET PO SCH (20:40)
[2020-06-01] MEDS: traZODone HCL 50 MG TAB PO SCH (20:41)
[2020-06-01] MEDS: busPIRone 5 MG TAB PO SCH (20:41)
--- NOTE | 2020-06-01 21:04 | Hospitalist Progress Note ---
Date of Service June 01, 2020 Assessment & Plan (1) Acute on chronic respiratory failure with hypoxia: (2) COVID-19: Admitting service notes This is a 70yo M with a PMH of severe COPD on 6 L NC O2 at baseline, depression, anxiety, cirrhosis and other medical problems listed below who presents with worsening SOB and dizziness x 3 days and was found to be covid positive. -Saturating at 90% on 6 L NC at rest, which is baseline but becomes hypoxic to mid-80s with any ambulation -VBG pH 7.36, d-dimer, troponin, procalcitonin all within normal limits. Lyme ab negative. Anaplasma smear pending pt started on IV dexamethasone day # 3 IV remdesivir Day # 3 Patient now back to baseline resp status 6 L oxygen via nasal cannula receiving convalescent plasma today Lovenox for DVT prophylaxis Incentive spirometry, flutter valve (3) COPD (chronic obstructive pulmonary disease) with emphysema: No wheezing continue home nebs, Symbicort, Spiriva (4) PTSD (post-traumatic stress disorder): (5) Depression: (6) Anxiety: Continue Zoloft, buspar (7) GERD (gastroesophageal reflux disease): Continue PPI (8) Cirrhosis of liver: Former drinker. monitor LFTs while getting Remdesivir DVT Ppx: SQ Lovenox Code status: CONDITIONAL CODE- YES to CPR, cardiac defibrillation resuscitative efforts but NO intubation or mechanical ventilation PCP: Burak [facility] Dispo: Lives with family at home, anticipate discharge home medically stable Admission and Anticipated Discharge Date Admission Date: May 30, 2020 Subjective FOLLOW UP VISIT FOR COVID 19 PNEUMONIA : pt report of feeling fine no cough or SOB at baseline resp status receiving convalescent plasma BP check during infusion noted 151/81 ( previous reading 119 /62 ) pt remains asymptomatic , cont to monitor Review of Systems Review of Systems: All systems reviewed & are unremarkable except as noted in HPI & below Physical Exam Constitutional: WD/WN, vitals as above Eyes: + anicteric sclerae ENMT: external ear and nose normal, oropharynx normal Neck: trachea midline, no thyromegaly Respiratory: + cough Auscultation: + diminished lung sounds Gastrointestinal (Abdomen): Percussion/Palpation: abdomen soft; abdomen nontender Neurologic: PERRL, EOMI, accommodation nl, no face palsy, no dysarthria Psychiatric: A+Ox3, euthymic affect Results & Data Results & Data ([facility]) Vital Signs (Past 12 Hours) Vital Signs Temp Pulse Pulse Pulse Resp BP Pulse Ox 06/01/20 19:11 36.6 C 65 19 139/82 94 06/01/20 15:39 36.6 C 66 18 133/79 95 06/01/20 15:14 66 06/01/20 11:31 36.5 C 68 20 123/77 95 (1) COPD (chronic obstructive pulmonary disease) with emphysema Emphysema type: unspecified Qualified Code(s): J43.9 - Emphysema, unspecified
[2020-06-02] MEDS: HYDROCODONE/ACETAMOPHEN 5/325MG TAB PO PRN ×3 (06:18→23:41)
[2020-06-02] MEDS: guaiFENesin 200 MG TAB PO SCH ×2 (08:27→20:02)
[2020-06-02] MEDS: PANTOprazole 40 MG TAB PO SCH ×2 (08:27→20:02)
[2020-06-02] MEDS: FERROUS SULFATE 325 MG TAB PO SCH (08:27)
[2020-06-02] MEDS: dexAMETHasone 6 MG in SYRINGE 0 ML IV SCH (08:28)
[2020-06-02] MEDS: CHOLECALCIFEROL 1,000 UNITS 25 MCG TAB PO SCH (08:28)
[2020-06-02] MEDS: ENOXAPARIN INJ 40 MG/0.4 ML SYR SQ SCH (08:28)
[2020-06-02] MEDS: FOLIC ACID 1 MG TAB PO SCH (08:28)
[2020-06-02] MEDS: FLUTICASONE/VILANTEROL 100/25MCG 14 PUFFS/INHALER INH SCH (08:29)
--- NOTE | 2020-06-02 18:06 | Hospitalist Progress Note ---
Date of Service June 02, 2020 Assessment & Plan (1) Acute on chronic respiratory failure with hypoxia: (2) COVID-19: Admitting service notes This is a 70yo M with a PMH of severe COPD on 6 L NC O2 at baseline, depression, anxiety, cirrhosis and other medical problems listed below who presents with worsening SOB and dizziness x 3 days and was found to be covid positive. on IV dexamethasone day # 5 IV remdesivir Day # 5 Patient now back to baseline resp status 6 L oxygen via nasal cannula Has been asymptomatic, no shortness of breath or dyspnea on exertion. Plan to discharge home tomorrow (3) COPD (chronic obstructive pulmonary disease) with emphysema: No wheezing continue home nebs, Symbicort, Spiriva (4) PTSD (post-traumatic stress disorder): (5) Depression: (6) Anxiety: Continue Zoloft, buspar (7) GERD (gastroesophageal reflux disease): Continue PPI (8) Cirrhosis of liver: Former drinker. monitor LFTs while getting Remdesivir DVT Ppx: SQ Lovenox Code status: CONDITIONAL CODE- YES to CPR, cardiac defibrillation resuscitative efforts but NO intubation or mechanical ventilation PCP: Burak [facility] Dispo: dc home in am Admission and Anticipated Discharge Date Admission Date: May 30, 2020 Subjective ,FOLLOW UP VISIT FOR COVID 19 PNEUMONIA : Patient stated respiratory status improved, has no cough, on 6 L oxygen which is at his home setting No fever or chills no shortness of breath no dyspnea on exertion Has been able to ambulate independently Review of Systems Review of Systems: All systems reviewed & are unremarkable except as noted in HPI & below Physical Exam Constitutional: WD/WN, vitals as above Eyes: + anicteric sclerae ENMT: external ear and nose normal, oropharynx normal Neck: trachea midline, no thyromegaly Respiratory: Auscultation: + diminished lung sounds Gastrointestinal (Abdomen): Percussion/Palpation: abdomen soft; abdomen nontender Musculoskeletal: no cyanosis or clubbing, extremities motor strength 5/5 Skin: no rashes, warm and dry Neurologic: PERRL, EOMI, accommodation nl, no face palsy, no dysarthria Psychiatric: A+Ox3, euthymic affect Results & Data Results & Data ([facility]) Vital Signs (Past 12 Hours) Vital Signs Temp Pulse Pulse Resp BP Pulse Ox 06/02/20 15:52 36.5 C 64 19 158/84 H 94 06/02/20 11:11 36.5 C 51 L 20 149/76 H 91 06/02/20 07:29 36.6 C 57 L 20 148/84 H 97 06/02/20 07:11 70 (1) COPD (chronic obstructive pulmonary disease) with emphysema Emphysema type: unspecified Qualified Code(s): J43.9 - Emphysema, unspecified
[2020-06-02] MEDS: REMDESIVIR 100 MG in SODIUM CHLORIDE 0.9% 230 ML IV SCH (19:56)
[2020-06-02] MEDS: SODIUM CHLORIDE 0.9% 10ML FLUSH IV SCH (19:59)
[2020-06-02] MEDS: traZODone HCL 50 MG TAB PO SCH (19:59)
[2020-06-02] MEDS: SERTRALINE HCL 100 MG TABLET PO SCH (20:00)
[2020-06-02] MEDS: UMECLIDINIUM BROMIDE 62.5MCG/BLISTER 7 PUFFS/INHALER INH SCH (20:01)
[2020-06-02] MEDS: busPIRone 5 MG TAB PO SCH (20:03)
[2020-06-03] MEDS: dexAMETHasone 6 MG in SYRINGE 0 ML IV SCH (08:45)
[2020-06-03] MEDS: FLUTICASONE/VILANTEROL 100/25MCG 14 PUFFS/INHALER INH SCH (08:45)
[2020-06-03] MEDS: FOLIC ACID 1 MG TAB PO SCH (08:47)
[2020-06-03] MEDS: ENOXAPARIN INJ 40 MG/0.4 ML SYR SQ SCH (08:47)
[2020-06-03] MEDS: FERROUS SULFATE 325 MG TAB PO SCH (08:47)
[2020-06-03] MEDS: guaiFENesin 200 MG TAB PO SCH (08:48)
[2020-06-03] MEDS: CHOLECALCIFEROL 1,000 UNITS 25 MCG TAB PO SCH (08:48)
[2020-06-03] MEDS: PANTOprazole 40 MG TAB PO SCH (08:48)
[2020-06-03] MEDS: HYDROCODONE/ACETAMOPHEN 5/325MG TAB PO PRN (08:57)
--- NOTE | 2020-06-03 15:13 | Discharge Summary ---
Date of Service June 03, 2020 Admission HPI Per Admitting Provider This is a 70yo M with a PMH of severe COPD on 6 L NC O2 at baseline, depression, anxiety, cirrhosis and other medical problems listed below who presents with worsening SOB and dizziness x 3 days. Patient started to feel lightheaded with worsening shortness of breath with any type of ambulation on Saturday. Also endorses pleuritic chest pain and productive cough with yellow mucus. Had a near syncopal event earlier today prior to presenting to the ED. Denies any head trauma. Denies any fever, chills, loss of taste or smell, sore throat, palpitations, nausea, vomiting, abdominal pain, dysuria, diarrhea or c onstipation. No changes to appetite. Follows with [facility] PCP and pulmonology. Lives at home with , adult children and grandchildren. He is the first to test positive for Covid. In ED, patient is saturating at 90% on 6 L nasal cannula at rest, which is baseline. When he got up to ambulate to the restroom, became hypoxic to 85%. No leukocytosis. Plt 89, D-dimer 410, creatinine 1.06, initial troponin negative, procalcitonin normal. Anaplasma smear, lyme ab pending. CXR with pulmonary emphysema, radiographic evidence of pulmonary arterial hypertension and relatively stable mid to lower lung zone interstitial opacities. Principal Diagnosis COVID-19 pneumonia: Acute on chronic respiratory failure with COPD exacerbation Discharge Exam Constitutional WD/WN, vitals as above Eyes + anicteric sclerae ENMT external ear and nose normal, oropharynx normal Neck trachea midline, no thyromegaly Respiratory + cough Auscultation: + diminished lung sounds Gastrointestinal (Abdomen) Percussion/Palpation: abdomen soft; abdomen nontender Musculoskeletal no cyanosis or clubbing, extremities motor strength 5/5 Skin no rashes, warm and dry Neurologic PERRL, EOMI, accommodation nl, no face palsy, no dysarthria Psychiatric A+Ox3, euthymic affect Discharge Data Allergies Allergy/AdvReac Type Severity Reaction Status Date / Time bee venom protein (honey bee) Allergy Severe ANAPHYLAXIS Verified 05/30/20 13:11 amoxicillin Allergy Intermediate FACIAL Verified 05/30/20 13:11 SWELLING (EYES SWELLED SHUT) clavulanic acid Allergy Intermediate FACIAL Verified 05/30/20 13:11 SWELLING (EYES SWELLED SHUT) pneumococcal vaccine Allergy Intermediate SWELLING Verified 05/30/20 13:11 Owsvwlt-Dmp-Pre Reductase Allergy Intermediate CPK'S GO Verified 05/30/20 13:11 Inhibitor THROUGH ROOF prednisone AdvReac Intermediate confusion Verified 05/30/20 13:11 and agitation Consultations 05/30/20 17:08 ED Decision to Admit Stat 05/30/20 20:22 Consult Case Management - Discharge Planning Routine Hospital Course (1) Acute on chronic respiratory failure with hypoxia: (2) COVID-19: Admitting service notes This is a 70yo M with a PMH of severe COPD on 6 L NC O2 at baseline, depression, anxiety, cirrhosis and other medical problems listed below who presents with worsening SOB and dizziness x 3 days and was found to be covid positive. on IV dexamethasone day # 5 IV remdesivir Day # 5 Patient now back to baseline resp status 6 L oxygen via nasal cannula Has been asymptomatic, no shortness of breath or dyspnea on exertion. Plan to discharge home tomorrow (3) COPD (chronic obstructive pulmonary disease) with emphysema: No wheezing continue home nebs, Symbicort, Spiriva (4) PTSD (post-traumatic stress disorder): (5) Depression: (6) Anxiety: Continue Zoloft, buspar (7) GERD (gastroesophageal reflux disease): Continue PPI (8) Cirrhosis of liver: Former drinker. monitor LFTs while getting Remdesivir DVT Ppx: SQ Lovenox Code status: CONDITIONAL CODE- YES to CPR, cardiac defibrillation resuscitative efforts but NO intubation or mechanical ventilation PCP: [facility] Dispo: dc home in am Total Time Total Time Spent Total Time Spent (In Minutes): approximately 35 minutes. Total Time Includes: Discharge Planning and Medication Reconciliation Discharge Plan Discharge Items Patient Disposition: Home - Self-Care Reason For Visit: COVID, CHRONIC RESP FAILURE REQUIRING 6L BASELINE Discharge Diagnosis: COVID-19 pneumonia: Acute on chronic respiratory failure with COPD exacerbation Activity: Resume your previous activity Non-emergency contact: Primary Care Provider Call non-emergency contact if: you have any medication questions Follow-up/Referrals: PCP,NO [Primary Care Provider] - Diet: Heart Healthy Addtl Attending Provider Instructions: Hospital follow-up with your family physician in a week Addtl Energy Assistant Provider Instructions: Home Isolation COVID-19 Instructions The following information about Home Isolation is from the CDC Website: https://www.cdc.gov/coronavirus/2019-ncov/hcp/sxrgwvmr-lmhhghf-drlvmy.html Stay home except to get medical care People who are mildly ill with COVID-19 are able to isolate at home during their illness. You should restrict activities outside your home, except for getting medical care. Do not go to work, school, or public areas. Avoid using public transportation, ride-sharing, or taxis. Separate yourself from other people and animals in your home People: As much as possible, you should stay in a specific room and away from other people in your home. Also, you should use a separate bathroom, if available. Animals: You should restrict contact with pets and other animals while you are sick with COVID-19, just like you would around other people. Although there have not been reports of pets or other animals becoming sick with COVID-19, it is still recommended that people sick with COVID-19 limit contact with animals until more information is known about the virus. When possible, have another member of your household care for your animals while you are sick. If you are sick with COVID-19, avoid contact with your pet, including petting, snuggling, being kissed or licked, and sharing food. If you must care for your pet or be around animals while you are sick, wash your hands before and after you interact with pets and wear a face mask. Call ahead before visiting your doctor If you have a medical appointment, call the healthcare provider and tell them that you have or may have COVID-19. This will help the healthcare providers office take steps to keep other people from getting infected or exposed. Wear a face mask You should wear a face mask when you are around other people (e.g., sharing a room or vehicle) or pets and before you enter a healthcare providers office. If you are not able to wear a face mask (for example, because it causes trouble breathing), then people who live with you should not stay in the same room with you, or they should wear a face mask if they enter your room. Cover your coughs and sneezes Cover your mouth and nose with a tissue when you cough or sneeze. Throw used tissues in a lined trash can. Immediately wash your hands with soap and water for at least 20 seconds or, if soap and water are not available, clean your hands with an alcohol-based hand box worker that contains at least 60% alcohol. Clean your hands often Wash your hands often with soap and water for at least 20 seconds, especially after blowing your nose, coughing, or sneezing; going to the bathroom; and before eating or preparing food. If soap and water are not readily available, use an alcohol-based hand box worker with at least 60% alcohol, covering all sasha faces of your hands and rubbing them together until they feel dry. Soap and water are the best option if hands are visibly dirty. Avoid touching your eyes, nose, and mouth with unwashed hands. Avoid sharing personal household items You should not share dishes, drinking glasses, cups, eating utensils, towels, or bedding with other people or pets in your home. After using these items, they should be washed thoroughly with soap and water. Clean all high-touch surfaces everyday High touch surfaces include counters, tabletops, doorknobs, bathroom fixtures, toilets, phones, keyboards, tablets, and bedside tables. Also, clean any surfaces that may have blood, stool, or body fluids on them. Use a household cleaning spray or wipe, according to the label instructions. Labels contain instructions for safe and effective use of the cleaning product including precautions you should take when applying the product, such as wearing gloves and making sure you have good ventilation during use of the product. Monitor your symptoms Seek prompt medical attention if your illness is worsening (e.g., difficulty breathing).Beforeseeking care, call your healthcare provider and tell them that you have, or are being evaluated for, COVID-19. Put on a face mask before you enter the facility. These steps will help the healthcare providers office to keep other people in the office or waiting room from getting infected or exposed. Ask your healthcare provider to call the local or state health departme nt. Persons who are placed under active monitoring or facilitated self- monitoring should follow instructions provided by their local health department or occupational health professionals, as appropriate. When working with your local health department check their available hours. If you have a medical emergency and need to call 911, notify the dispatch personnel that you have, or are being evaluated for COVID-19. If possible, put on a face mask before emergency medical services arrive. Discontinuing home isolation As per CDC guideline home quarantine/isolation can be discontinued 10 days after the onset of symptoms-if no fever for last 3 days without taking any fever reducing medications Pending Studies at Discharge: No Stand-Alone Forms: My [facility] [employer], Smoking Cessation Medications and DC Order Prescriptions: Continued albuterol sulfate 2.5 mg /3 mL (0.083 %) Solution For Nebulization 2.5 mg inhalation QID PRN (Reason: Shortness Of Breath Or Wheezing) RF: 0 albuterol sulfate 90 mcg/actuation Hfa Aerosol Inhaler 2 puff INHALATION Q6H PRN (Reason: Shortness Of Breath Or Wheezing) RF: 0 ferrous sulfate 325 mg (65 mg iron) tablet 325 mg PO QAM RF: 0 folic acid 1 mg tablet 1 mg PO QAM RF: 0 buspirone 5 mg Tablet 5 mg PO QPM RF: 0 cetirizine 10 mg Tablet 10 mg PO DAILY PRN (Reason: Allergy Symptoms) RF: 0 sertraline 100 mg Tablet 200 mg PO HS RF: 0 trazodone 150 mg Tablet 150 mg PO HS RF: 0 omeprazole 20 mg Capsule,Delayed Release(Dr/Ec) 20 mg PO BID RF: 0 Spiriva with HandiHaler 18 mcg Capsule, W/Inhalation Device 1 cap INHALATION QPM RF: 0 guaifenesin 200 mg Tablet 400 mg PO BID RF: 0 epinephrine [EpiPen] 0.3 mg/0.3 mL Auto-Injector 0.3 mg IM DIRECTED PRN (Reason: Allergic Reaction) RF: 0 budesonide-formoterol [Symbicort] 160-4.5 mcg/actuation Hfa Aerosol Inhaler 2 puff INHALATION BID RF: 0 cholecalciferol (vitamin D3) [Vitamin D3] 25 mcg (1,000 unit) Capsule 1,000 unit PO QAM RF: 0 Discharge Orders: Discharge Order (Routine); Ordered 06/03/20 Ordered By: Phylicia Zee Admission Data Admit Date/Time: 05/30/20 15:38 Attending Provider: Phylicia Zee Admit Provider: Jay Hein Primary Care Provider: PCP,NO Other Providers: Jay Hein ; Crow Franklin Other Interventions: Discharge Summary Assessment (RN) Last Done: 06/03/20 14:44
== END 2020-06-03 16:36 | disposition home or self-care (01) | DRG 177 ==
LOC: ED 11:57 → SUATTDRO 15:38 → 2S 15:38

== ENCOUNTER 2020-12-19 16:18 | Inpatient (IN) ==
--- NOTE | 2020-12-19 16:38 | Emergency Department Note ---
Impression & Plan Acute exacerbation of chronic obstructive pulmonary disease, Agent orange exposure ED Provider Note NAME: PANTERA AVILEZ AGE: 70 SEX: M : 1950 ARRIVES VIA: Walk-In INFORMANT: Patient, ED PROVIDER(S): Edgar Beck MD Chief Complaint: Shortness of breath HPI: Patient does present with concern for shortness of breath which she has been acute on chronic but worse over the last 7 days. Patient states that even getting up to use the restroom he becomes very dyspneic and tachypneic. The patient's O2 saturation at home is in the 70s. The patient does require 6 L at all times secondary to COPD and history of agent orange exposure. Patient denies any fevers or chills but does have some chest pains that he describes as right-sided in nature. No exertional symptoms with regard to the chest pain. Patient denies any lower extremity swelling. Patient denies any history of DVT. The patient does follow with Dr. Price with pulmonology at [place]. The patient has been using his inhalers with only mild improvement that is typically brief in duration. He denies any productive cough. Patient is vaccinated for Covid. No recent prolonged car or plane travel, surgeries or procedures. ROS: See HPI for pertinent positives and negatives. A total of 10 systems were reviewed and otherwise negative. Past medical history: See below Surgical history: See below Social history: See below Physical Exam: GENERAL: Wearing a mask, nasal cannula in place. Mild tachypnea noted. EYE EXAM: Normal conjunctiva. PERRL, no anisocoria and EOM's grossly intact w/o pain. NECK: Supple, no nuchal rigidity, no adenopathy, non-tender. No signs of meningismus. LUNGS: Mild tachypnea noted. Decreased air movement throughout. HEART: NSR, no MRG. ABDOMEN: Abdomen soft, non-tender, normo-active bowel sounds, no masses, no rebound or guarding. BACK: No CVA TTP. SKIN: No rashes and no bruising. UPPER EXTREMITIES: Upper extremities are grossly normal. LOWER EXTREMITIES: Grossly normal, no edema. Negative Homans' sign bilaterally. NEURO EXAM: A&O x3, cranial nerves II-XII grossly intact, normal speech, moves all 4 extremities on command w/o issue. Differential diagnoses: Reactive airway disease, pneumonia, pneumothorax, COPD, CHF, infections, cardiac ischemia, pulmonary embolism, musculoskeletal, bradley rointestinal, as well as other pathologies. Course: Patient was seen and evaluated the bedside. Full history physical exam was performed. EKG interpreted by me Normal sinus rhythm, rate of 65, normal intervals, left axis deviation, T wave inversion in V2. No obvious ST changes. Imaging Studies: See below Cardiac monitoring: An order was placed for continuous cardiac monitoring. The monitor shows a rate of 66 with sinus rhythm. MDM: Patient did present with worsening shortness of breath. The patient does have significant chronic lung disease. Given the patient's inability to complete activities of daily living I was concerned about the patient's ability to go home safely. Patient was treated symptomatically for COPD exacerbation given the patient's history and physical exam the patient did have blood work which was completed which showed a normal white counts mild anemia. The patient's kidney function grossly unremarkable. The patient VBG does show chronic hypercarbia. I did speak the on-call hospitalist and the patient was admitted to the medicine service by Bethany Morales PA-C. Past Med/Surg History Medical History (Updated 12/20/20 @ 17:40 by Edgar Beck MD) Agent orange exposure Anemia Anxiety Chronic respiratory failure with hypoxia Cirrhosis of liver COPD (chronic obstructive pulmonary disease) with emphysema Depression Emphysema/COPD GERD (gastroesophageal reflux disease) History of tobacco abuse HTN (hypertension) Kidney stones Osteoarthritis Pneumonia PTSD (post-traumatic stress disorder) Pulmonary nodules Surgical History H/O hernia repair History of appendectomy History of extraction of renal calculus History of tonsillectomy Loss of teeth due to extraction S/P arthroscopic surgery of right knee Family History Mother Colon cancer Father FH: kidney cancer Other Cancer Social History Smoking Status: Former smoker Tobacco Type: Cigarettes Cigarettes Per Day: 40 pack year hx; Second Hand Exposure: No; Hx Alcohol Use: No Hx Substance Use: No Preferred Language: Greek Communication Ability: Effective Blending Line Attendant Required: No Beliefs That Will Affect Care: None marital status: Current Living Situation: Spouse Current Living Situation Comment: lives with spouse 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 Other Information That Helps Us Care for You: No Feels Safe at Home: Yes Safety Concerns: Feels Safe At This Time Assistive Devices: Oxygen - Continuous Allergies Allergies Allergy/AdvReac Type Severity Reaction Status Date / Time bee venom protein (honey bee) Allergy Severe ANAPHYLAXIS Verified 12/19/20 17:25 amoxicillin Allergy Intermediate FACIAL Verified 12/19/20 17:25 SWELLING (EYES SWELLED SHUT) clavulanic acid Allergy Intermediate FACIAL Verified 12/19/20 17:25 SWELLING (EYES SWELLED SHUT) pneumococcal vaccine Allergy Intermediate SWELLING Verified 12/19/20 17:25 Blfxydk-Kqq-Fff Reductase Allergy Intermediate CPK'S GO Verified 12/19/20 17:25 Inhibitor THROUGH ROOF prednisone AdvReac Intermediate confusion Verified 12/19/20 17:25 and agitation Home Meds Home Medications Medication Instructions Recorded Confirmed Spiriva with HandiHaler 1 cap INHALATION QPM 04/08/18 12/19/20 buspirone 5 mg PO QPM 04/08/18 12/19/20 cetirizine 10 mg PO DAILY PRN 04/08/18 12/19/20 omeprazole 20 mg PO BID 04/08/18 12/19/20 sertraline 200 mg PO HS 04/08/18 12/19/20 trazodone 150 mg PO HS 04/08/18 12/19/20 albuterol sulfate 2 puff INHALATION Q6H PRN 07/04/18 12/19/20 albuterol sulfate 2.5 mg INHALATION QID PRN 07/04/18 12/19/20 budesonide-formoterol [Symbicort] 2 puff INHALATION BID 08/22/18 12/19/20 epinephrine [EpiPen] 0.3 mg IM DIRECTED PRN 08/22/18 12/19/20 guaifenesin 400 mg PO BID 08/22/18 12/19/20 cholecalciferol (vitamin D3) 1,000 unit PO QAM 08/19/19 12/19/20 [Vitamin D3] cyanocobalamin (vitamin B-12) 1,000 mcg PO 2XWK 12/19/20 12/19/20 [Vitamin B-12] diltiazem HCl 240 mg PO DAILY 12/19/20 12/19/20 Results & Data (ED) Vital Signs Vital Signs - 24 hr 12/19/20 17:39 12/19/20 18:43 Pulse Rate [Finger] 65 84 Respiratory Rate 20 16 Respiratory Effort / Characteristics Non-Labored Spontaneous Pulse Oximetry 93 98 Oxygen Delivery Method Nasal Cannula Oxygen Flow Rate 6 Home Medications Current Medication List: was personally reviewed by me Laboratory Data Attestation: I reviewed the patient's lab results. Result diagrams: 12/20/20 06:45 12/20/20 06:45 Lab Results 12/19/20 12/19/20 12/19/20 Range/Units 17:00 17:00 17:00 WBC 11.88 H (4.8-10.8) K/uL RBC 4.24 L (4.7-6.1) M/uL Hgb 13.1 L (14.0-18.0) g/dL Hct 40.2 L (42-52) % MCV 94.8 (80-100) fL MCH 30.9 (25-34) pg MCHC 32.6 (32-36) g/dL RDW Std Deviation 51.0 H (36.4-46.3) fL RDW Coeff of Ren 14.8 H (11.5-14.5) % Plt Count 117 L (130-400) K/uL MPV 10.4 (7.4-10.4) fL Immature Gran % (Auto) 0.2 % Neut % (Auto) 77.1 % Lymph % (Auto) 13.6 % [place] % (Auto) 8.1 % Eos % (Auto) 0.8 % Baso % (Auto) 0.2 % Neut # (Auto) 9.16 H (1.4-6.5) K/uL Lymph # (Auto) 1.62 (1.2-3.4) K/uL [place] # (Auto) 0.96 H (0.11-0.59) K/uL Eos # (Auto) 0.10 (0-0.5) K/uL Baso # (Auto) 0.02 (0-0.2) K/uL Immature Gran # (Auto) 0.02 (0.00-0.02) K/uL VBG pH 7.36 (7.36-7.41) VBG pCO2 60 H (38-50) mmHg VBG pO2 37 mmHg VBG HCO3 33 mmol/L VBG O2 Saturation 70.6 % VBG Base Excess 6.0 mEq/L Barometric Pressure 734.6 mm/Hg Sodium 137 (136-145) mmol/L Potassium 4.0 (3.5-5.1) mmol/L Chloride 102 (98-107) mmol/L Carbon Dioxide 34 H (21-32) mmol/L Anion Gap 1.0 L (3-11) BUN 15 (7-18) mg/dl Creatinine 1.20 (0.6-1.4) mg/dl Est Cr Clr Drug Dosing 59.1 ml/min Est GFR ( Amer) 70.6 ml/min Est GFR (Non-Af Amer) 60.9 ml/min BUN/Creatinine Ratio 12.9 (10-20) Glucose 98 (70-99) mg/dl Calcium 9.2 (8.5-10.1) mg/dl Total Bilirubin 0.5 (0.2-1) mg/dl AST 30 (15-37) U/L ALT 30 (12-78) U/L Alkaline Phosphatase 83 (45-117) U/L Troponin I < 0.015 (0-0.045) ng/ml NT-Pro-B Natriuret Pep 128 (0-900) pg/ml Total Protein 7.4 (6.4-8.2) gm/dl Albumin 3.8 (3.4-5.0) gm/dl Globulin 3.6 (2.5-4.0) gm/dl Albumin/Globulin Ratio 1.1 (0.9-2) COVID-19 Eval Order SARS-CoV-2 (PCR) (Negative) 12/19/20 12/19/20 Range/Units 17:19 17:19 WBC (4.8-10.8) K/uL RBC (4.7-6.1) M/uL Hgb (14.0-18.0) g/dL Hct (42-52) % MCV (80-100) fL MCH (25-34) pg MCHC (32-36) g/dL RDW Std Deviation (36.4-46.3) fL RDW Coeff of Ren (11.5-14.5) % Plt Count (130-400) K/uL MPV (7.4-10.4) fL Immature Gran % (Auto) % Neut % (Auto) % Lymph % (Auto) % [place] % (Auto) % Eos % (Auto) % Baso % (Auto) % Neut # (Auto) (1.4-6.5) K/uL Lymph # (Auto) (1.2-3.4) K/uL [place] # (Auto) (0.11-0.59) K/uL Eos # (Auto) (0-0.5) K/uL Baso # (Auto) (0-0.2) K/uL Immature Gran # (Auto) (0.00-0.02) K/uL VBG pH (7.36-7.41) VBG pCO2 (38-50) mmHg VBG pO2 mmHg VBG HCO3 mmol/L VBG O2 Saturation % VBG Base Excess mEq/L Barometric Pressure mm/Hg Sodium (136-145) mmol/L Potassium (3.5-5.1) mmol/L Chloride (98-107) mmol/L Carbon Dioxide (21-32) mmol/L Anion Gap (3-11) BUN (7-18) mg/dl Creatinine (0.6-1.4) mg/dl Est Cr Clr Drug Dosing ml/min Est GFR ( Amer) ml/min Est GFR (Non-Af Amer) ml/min BUN/Creatinine Ratio (10-20) Glucose (70-99) mg/dl Calcium (8.5-10.1) mg/dl Total Bilirubin (0.2-1) mg/dl AST (15-37) U/L ALT (12-78) U/L Alkaline Phosphatase (45-117) U/L Troponin I (0-0.045) ng/ml NT-Pro-B Natriuret Pep (0-900) pg/ml Total Protein (6.4-8.2) gm/dl Albumin (3.4-5.0) gm/dl Globulin (2.5-4.0) gm/dl Albumin/Globulin Ratio (0.9-2) COVID-19 Eval Order Covid19 at [facility] SARS-CoV-2 (PCR) NEGATIVE (Negative) Administered Medications Albuterol (Albut/Ipratrop 3mg/0.5mg Neb 3 Ml Vial) 3 ml NEB Q4R PEARL Stop: 01/18/21 22:59 Last Admin: 12/20/20 15:11 Dose: 3 ml Documented by: [id number] Admin: 12/20/20 11:15 Dose: 3 ml Documented by: [id number] Admin: 12/20/20 07:08 Dose: 3 ml Documented by: [id number] Admin: 12/20/20 02:40 Dose: Not Given Documented by: [id number] Admin: 12/19/20 22:10 Dose: 3 ml Documented by: [id number] Buspirone HCl (Buspirone 5 Mg Tab) 5 mg PO QPM PEARL Stop: 01/18/21 20:59 Last Admin: 12/19/20 22:04 Dose: 5 mg Documented by: [id number] Diltiazem HCl (Diltiazem Hcl 240 Mg Capcr) 240 mg PO DAILY PEARL Stop: 01/19/21 08:59 Last Admin: 12/20/20 08:05 Dose: 240 mg Documented by: [id number] Doxycycline Hyclate (Doxycycline Hyclate 100 Mg Cap) 100 mg PO BID PEARL Stop: 12/26/20 20:59 Last Admin: 12/20/20 08:05 Dose: 100 mg Documented by: [id number] Admin: 12/19/20 22:06 Dose: 100 mg Documented by: [id number] Enoxaparin Sodium (Enoxaparin Inj 40 Mg/0.4 Ml Syr) 40 mg SQ Q24H PEARL Stop: 01/18/21 20:59 Last Admin: 12/19/20 22:04 Dose: 40 mg Documented by: [id number] Fluticasone/Vilanterol (Fluticasone/Vilanterol 200/25mcg 14 Puffs/Inhaler) 1 puffs INH DAILY PEARL Stop: 01/19/21 08:59 Last Admin: 12/20/20 08:04 Dose: 1 puffs Documented by: [id number] Guaifenesin (Guaifenesin 200 Mg Tab) 400 mg PO BID PEARL Stop: 01/18/21 20:59 Last Admin: 12/20/20 08:05 Dose: 400 mg Documented by: [id number] Admin: 12/19/20 22:04 Dose: 400 mg Documented by: [id number] Methylprednisolone 40 mg/ (Syringe) 0.64 mls @ 1.5 mls/min IV DAILY PEARL Stop: 01/19/21 08:59 Last Admin: 12/20/20 08:05 Dose: 1.5 mls/min Documented by: [id number] Pantoprazole Sodium (Pantoprazole 40 Mg Tab) 40 mg PO BID PEARL Stop: 01/18/21 20:59 Last Admin: 12/20/20 08:05 Dose: 40 mg Documented by: [id number] Admin: 12/19/20 22:05 Dose: 40 mg Documented by: [id number] Sertraline HCl (Sertraline Hcl 100 Mg Tablet) 200 mg PO HS PEARL Stop: 01/18/21 20:59 Last Admin: 12/19/20 22:05 Dose: 200 mg Documented by: [id number] Trazodone HCl (Trazodone Hcl 50 Mg Tab) 150 mg PO HS PEARL Stop: 01/18/21 20:59 Last Admin: 12/19/20 22:05 Dose: 150 mg Documented by: [id number] Vitamin D (Cholecalciferol 1,000 Units 25 Mcg Tab) 1,000 units PO QAM PEARL Stop: 01/19/21 08:59 Last Admin: 12/20/20 08:06 Dose: 1,000 units Documented by: [id number] Discontinued Medications Albuterol (Albut/Ipratrop 3mg/0.5mg Neb 3 Ml Vial) 12 ml INH ONE STA Stop: 12/19/20 16:45 Last Admin: 12/19/20 17:38 Dose: 12 ml Documented by: [id number] Sodium Chloride (Nss) 500 mls @ 999 mls/hr IV .Q31M STA Stop: 12/19/20 17:14 Last Infusion: 12/19/20 17:32 Dose: 0 mls/hr Documented by: [id number] Admin: 12/19/20 17:02 Dose: 999 mls/hr Documented by: [id number] Magnesium Sulfate/Dextrose (Magnesium Sulfate / D5w) 1 gm in 100 mls @ 100 mls/hr IV Q1H PEARL Stop: 12/19/20 18:44 Last Infusion: 12/19/20 20:59 Dose: 0 mls/hr Documented by: [id number] Admin: 12/19/20 18:09 Dose: 100 mls/hr Documented by: [id number] Infusion: 12/19/20 18:02 Dose: 100 mls/hr Documented by: [id number] Admin: 12/19/20 17:02 Dose: 100 mls/hr Documented by: [id number] Methylprednisolone (Methylprednisolone 125 Mg/2 Ml Vial) 125 mg IV NOW STA Stop: 12/19/20 16:45 Last Admin: 12/19/20 17:02 Dose: 125 mg Documented by: [id number] Imaging Data Radiologist's Impression: Chest X-Ray 12/19/20 16:44 XR chest 1V portable CLINICAL HISTORY: Dyspnea COMPARISON STUDY: Chest CT November 28, 2019. Chest radiograph May 30, 2020. FINDINGS: There is no pneumothorax or pleural effusion. Underlying emphysema is present. Interstitial thickening is unchanged. Cardiomediastinal silhouette is stable. There is no consolidation or evidence for pulmonary edema. IMPRESSION: 1. No change in appearance of the chest. Emphysema. 2. Interstitial thickening, likely chronic. ACT 112: Negative or not required by law. Electronically signed by: Mode Solis M.D. 12/19/2020 6:06 PM Discharge Plan Visit Data Chief Complaint: Shortness of Breath/Dyspnea Stated Complaint: SOB,DIZZY,LOW OXY ED Provider: Edgar Beck Discharge Problem: Acute exacerbation of chronic obstructive pulmonary disease, Agent orange exposure Patient Disposition: Admitted As Inpatient Discharge Instructions Interventions: ED Discharge Assessment Last Done: 12/19/20 20:30
[2020-12-19] MEDS ORDERED: methylPREDNISolone 125 MG/2 ML VIAL IV STA (16:44)
[2020-12-19] MEDS ORDERED: SODIUM CHLORIDE 0.9% 500 ML IV STA (16:44)
[2020-12-19] MEDS ORDERED: ALBUT/IPRATROP 3MG/0.5MG NEB 3 ML VIAL INH STA (16:44)
[2020-12-19] MEDS: MAGNESIUM SULFATE / D5W 1 GM/100 ML BAG IV SCH ×2 (17:02→18:09)
[2020-12-19 17:19] LABS: Basophils # (auto) 0.02 K/uL (0-0.2); Basophils % (auto) 0.2 %; Eosinophils % (auto) 0.8 %; Hematocrit (blood only) 40.2 % (42-52); Hemoglobin 13.1 g/dL (14.0-18.0); Immature Granulocytes # (auto) 0.02 K/uL (0.00-0.02); Immature Granulocytes % (auto) 0.2 %; Lymphocytes # (auto) 1.62 K/uL (1.2-3.4); Lymphocytes % (auto) 13.6 %; Mean Corpuscular Hemoglobin 30.9 pg (25-34); Mean Corpuscular Hgb Conc 32.6 g/dL (32-36); Mean Corpuscular Volume 94.8 fL (80-100); Mean Platelet Volume 10.4 fL (7.4-10.4); Monocytes # (auto) 0.96 K/uL (0.11-0.59); Monocytes % (auto) 8.1 %; Neutrophils # (auto) 9.16 K/uL (1.4-6.5); Neutrophils % (auto) 77.1 %; Platelet Count 117 K/uL (130-400); RDW Coefficient of Variation 14.8 % (11.5-14.5); Red Blood Count 4.24 M/uL (4.7-6.1); White Blood Count 11.88 K/uL (4.8-10.8)
[2020-12-19 17:24] LABS: Oxygen Saturation VBG 70.6 %; pH VBG 7.36 (7.36-7.41)
[2020-12-19 17:36] LABS: Alanine Aminotransferase 30 U/L (12-78); Albumin Level 3.8 gm/dl (3.4-5.0); Aspartate Aminotransferase 30 U/L (15-37); BUN Creatinine Ratio 12.9 (10-20); Blood Urea Nitrogen 15 mg/dl (7-18); Calcium 9.2 mg/dl (8.5-10.1); Carbon Dioxide 34 mmol/L (21-32); Chloride 102 mmol/L (98-107); Creatinine Clr Calc Pharmacy 59.1 ml/min; Est GFR (African American) 70.6 ml/min; Est GFR (Non-African American) 60.9 ml/min; Glucose 98 mg/dl (70-99); Sodium 137 mmol/L (136-145)
[2020-12-19 17:41] LABS: Albumin Globulin Ratio 1.1 (0.9-2); Alkaline Phosphatase 83 U/L (45-117); Bilirubin,Total 0.5 mg/dl (0.2-1); Globulin 3.6 gm/dl (2.5-4.0); NT Pro B Type Natriuretic Pept 128 pg/ml (0-900); Total Protein 7.4 gm/dl (6.4-8.2); Troponin I < 0.015 ng/ml (0-0.045)
--- NOTE | 2020-12-19 18:07 | XRay Report ---
XR chest 1V portable CLINICAL HISTORY: Dyspnea COMPARISON STUDY: Chest CT November 28, 2019. Chest radiograph May 30, 2020. FINDINGS: There is no pneumothorax or pleural effusion. Underlying emphysema is present. Interstitial thickening is unchanged. Cardiomediastinal silhouette is stable. There is no consolidation or eviden ce for pulmonary edema. IMPRESSION: 1. No change in appearance of the chest. Emphysema. 2. Interstitial thickening, likely chronic. ACT 112: Negative or not required by law. Electronically signed by: Mode Solis M.D. 12/19/2020 6:06 PM
--- NOTE | 2020-12-19 19:15 | History & Physical Report ---
Date of Service December 19, 2020 Assessment & Plan (1) Acute exacerbation of chronic obstructive pulmonary disease: (2) Chronic respiratory failure with hypoxia: This is a 70 yo M with a PMH of severe COPD on 6 L NC O2 at baseline, anxiety, history of cirrhosis and other medical problems listed below who presents with worsening SOB and lightheadedness x1 week. Worsening dyspnea on exertion with any type of movement x 1 week, hypoxia to 74% at home. Has saturated above 93% on baseline 6L NC O2 while in ER Afebrile, mild leukocytosis of 11. Covid PCR negative CXR with no change in appearance of the chest. Evidence of chronic emphysema, interstitial thickening VBG consistent with compensated respiratory acidosis Given 125mg IV solu-medrol in ER along with albuterol breathing treatment Prednisone 40mg daily, Doxycycline 100mg BID and Duoneb Q4HR Continue Mucinex (3) Anxiety: Continue Zoloft, Buspar (4) GERD (gastroesophageal reflux disease): Continue PPI (5) Cirrhosis of liver: Former drinker. Has been informed of this diagnosis in the past. LFTs normal DVT Ppx: SQ Lovenox Code status: Full code PCP: Bur[facility] Dispo: Observation med tele. Discharge planning ordered. Patient seen in collaboration with Dr. Neumann. Please see addendum. History of Present Illness Chief Complaint: SOB Primary Care Provider: MAXIM PCP This is a 70 yo M with a PMH of severe COPD on 6 L NC O2 at baseline, anxiety, history of cirrhosis and other medical problems listed below who presents with worsening SOB and lightheadedness x1 week. Patient started to notice worsening dyspnea on exertion with any type of movement, including just walking 30 feet to the bathroom. Checked his pulse ox during ambulation to the bathroom earlier today and saw that it was 74%. Came to ED for further evaluation. Denies any recent sick contacts. No fever or chills. No productive cough. No chest pain, wheezing, nausea, vomiting, abdominal pain, dysuria, diarrhea constipation. Uses inhalers as scheduled as well as taking Mucinex twice a day. Has not been using nebulizers treatments. He is on 6 L of oxygen at baseline. Follows with [facility]CP and pulmonology. Lives at home with , adult children and grandchildren. Allergies Allergy/AdvReac Type Severity Reaction Status Date / Time bee venom protein (honey bee) Allergy Severe ANAPHYLAXIS Verified 12/19/20 17:25 amoxicillin Allergy Intermediate FACIAL Verified 12/19/20 17:25 SWELLING (EYES SWELLED SHUT) clavulanic acid Allergy Intermediate FACIAL Verified 12/19/20 17:25 SWELLING (EYES SWELLED SHUT) pneumococcal vaccine Allergy Intermediate SWELLING Verified 12/19/20 17:25 Ahyozhj-Wbd-Cde Reductase Allergy Intermediate CPK'S GO Verified 12/19/20 17:25 Inhibitor THROUGH ROOF prednisone AdvReac Intermediate confusion Verified 12/19/20 17:25 and agitation Home Medications Medication Instructions Recorded Confirmed Type Spiriva with HandiHaler 1 cap INHALATION QPM 04/08/18 12/19/20 History buspirone 5 mg PO QPM 04/08/18 12/19/20 History cetirizine 10 mg PO DAILY PRN 04/08/18 12/19/20 History omeprazole 20 mg PO BID 04/08/18 12/19/20 History sertraline 200 mg PO HS 04/08/18 12/19/20 History trazodone 150 mg PO HS 04/08/18 12/19/20 History albuterol sulfate 2 puff INHALATION Q6H PRN 07/04/18 12/19/20 History albuterol sulfate 2.5 mg INHALATION QID PRN 07/04/18 12/19/20 History budesonide-formoterol [Symbicort] 2 puff INHALATION BID 08/22/18 12/19/20 History epinephrine [EpiPen] 0.3 mg IM DIRECTED PRN 08/22/18 12/19/20 History guaifenesin 400 mg PO BID 08/22/18 12/19/20 History cholecalciferol (vitamin D3) 1,000 unit PO QAM 08/19/19 12/19/20 History [Vitamin D3] cyanocobalamin (vitamin B-12) 1,000 mcg PO 2XWK 12/19/20 12/19/20 History [Vitamin B-12] diltiazem HCl 240 mg PO DAILY 12/19/20 12/19/20 History Past Med/Surg History Medical History (Updated 12/19/20 @ 20:06 by Bethany Morales PA-C) Agent orange exposure Anemia Anxiety Chronic respiratory failure with hypoxia Cirrhosis of liver COPD (chronic obstructive pulmonary disease) with emphysema Depression Emphysema/COPD GERD (gastroesophageal reflux disease) History of tobacco abuse HTN (hypertension) Kidney stones Osteoarthritis Pneumonia PTSD (post-traumatic stress disorder) Pulmonary nodules Surgical History H/O hernia repair History of appendectomy History of extraction of renal calculus History of tonsillectomy Loss of teeth due to extraction S/P arthroscopic surgery of right knee Family History Mother Colon cancer Father FH: kidney cancer Other Cancer Social History Smoking Status: Former smoker Tobacco Type: Cigarettes Cigarettes Per Day: 40 pack year hx; Second Hand Exposure: No; Hx Alcohol Use: No Hx Substance Use: No Preferred Language: Czech Communication Ability: Effective Med Spa Manager Required: No Beliefs That Will Affect Care: None marital status: Current Living Situation: Spouse Current Living Situation Comment: lives with spouse 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 Physical Exam Physical Exam: General Appearance: WD/WN, vitals as above, NAD, sitting up in bed, pleasant, conversational dyspnea, wearing oxymask Head: normocephalic, atraumatic Eyes: normal inspection, PERRL, conjunctivae normal, anicteric sclerae ENT: external ear and nose normal, oropharynx normal Neck: normal visual inspection, trachea midline, no thyromegaly Respiratory: normal respiratory effort, diminished lung sounds throughout, no wheeze, rales, rhonchi. No accessory muscle use Cardiovascular: regular rate, rhythm, no murmur, normal peripheral pulses, no BLE edema. Vessels: no JVD Chest: normal inspection of chest Abdomen/GI: normal bowel sounds, soft, nontender, no hepatosplenomegaly Extremities/Musculoskeletal: no cyanosis or clubbing, extremities motor strength 5/5 Neurologic: PERRL, EOMI, accommodation nl, no face palsy, no dysarthria, CN's II-XI intact bilaterally and moves all extremities Psychiatric: A+Ox3, euthymic affect Skin: no rashes, normal color, warm/dry Results & Data Results & Data ([facility]) Vital Signs (Past 12 Hours) Vital Signs Temp Pulse Pulse Resp BP Pulse Ox 12/19/20 18:43 84 16 98 12/19/20 17:39 65 20 93 12/19/20 17:19 65 18 96 12/19/20 16:23 37.0 C 66 24 111/68 100 Laboratory Results Short CBC 12/19/20 Range/Units 17:00 WBC 11.88 H (4.8-10.8) K/uL Hgb 13.1 L (14.0-18.0) g/dL Hct 40.2 L (42-52) % Plt Count 117 L (130-400) K/uL BMP 12/19/20 17:00 Sodium 137 Potassium 4.0 Chloride 102 Carbon Dioxide 34 H BUN 15 Creatinine 1.20 Glucose 98 Calcium 9.2 Cardiac Enzymes 12/19/20 Range/Units 17:00 Troponin I < 0.015 (0-0.045) ng/ml Liver Function 12/19/20 Range/Units 17:00 Total Bilirubin 0.5 (0.2-1) mg/dl AST 30 (15-37) U/L ALT 30 (12-78) U/L Alkaline Phosphatase 83 (45-117) U/L Albumin 3.8 (3.4-5.0) gm/dl Diagnostic Findings Chest X-Ray 12/19/20 16:44 XR chest 1V portable CLINICAL HISTORY: Dyspnea COMPARISON STUDY: Chest CT November 28, 2019. Chest radiograph May 30, 2020. FINDINGS: There is no pneumothorax or pleural effusion. Underlying emphysema is present. Interstitial thickening is unchanged. Cardiomediastinal silhouette is stable. There is no consolidation or evidence for pulmonary edema. IMPRESSION: 1. No change in appearance of the chest. Emphysema. 2. Interstitial thickening, likely chronic. ACT 112: Negative or not required by law. Electronically signed by: Mode Solis M.D. 12/19/2020 6:06 PM ECG Rhythm: normal sinus Change: no significant change Code Status & VTE Plan VTE Prophylaxis Plan VTE Prophylaxis will be ordered: Yes Supervising Physician Co-Signing Physician Notes Care coordinated with Bethany Morales PA-C. Agree with above note. Patient seen and examined. Please refer to her notes for full details. Vital signs reviewed. Physical exam: General exam: Alert and oriented. Not in acute distress. CVS: S1 and S2 heard, regular rate and rhythm, no murmurs. RS: Clear to auscultation, mild b/l wheezing or crackles. ABD: Soft, bowel sounds present, nontender, no distention. RESORT HOUSEKEEPER: Nonfocal. EXT: No edema, no erythema. Labs: Reviewed. Assessment and plan: 70M with hx of exposure to agent orange in 1968, quit smoking 6yrs ago, hx of covid 05/29 , hx of copd, on home oxygen 6lts comes with sob. He says he can walk a block with oxygen on but today going to bathroom and coming back about 30feet his oxygen sats dropped into 70's . Has cough. No fevers. No chest pain. Copd ex nebs, iv solumedrol, doxycyline close monitor in med/tele seems cannot tolerate prednisone but ok with solumedrol pt/ot when stable Anxiety home meds Other diagnosis and plan of care as per Bethany Morales PA-C.. Nav obregon MD.
[2020-12-19] MEDS ORDERED: CETIRIZINE HCL 10 MG TABLET PO PRN (20:30)
[2020-12-19] MEDS ORDERED: POLYETHYLENE (MIRALAX) 17 GM PACK PO PRN (20:30)
[2020-12-19] MEDS ORDERED: EPINEPHrine ADULT AUTO-INJECT 0.3 MG SYR IM PRN (20:30)
[2020-12-19] MEDS ORDERED: ONDANSETRON INJ 2 MG/ML 2 ML VIAL IV PRN (20:30)
[2020-12-19] MEDS ORDERED: ALBUTEROL HFA 8 GM INHALER INH PRN (20:30)
[2020-12-19] MEDS: ENOXAPARIN INJ 40 MG/0.4 ML SYR SQ SCH (22:04)
[2020-12-19] MEDS: busPIRone 5 MG TAB PO SCH (22:04)
[2020-12-19] MEDS: guaiFENesin 200 MG TAB PO SCH (22:04)
[2020-12-19] MEDS: PANTOprazole 40 MG TAB PO SCH (22:05)
[2020-12-19] MEDS: SERTRALINE HCL 100 MG TABLET PO SCH (22:05)
[2020-12-19] MEDS: traZODone HCL 50 MG TAB PO SCH (22:05)
[2020-12-19] MEDS: DOXYCYCLINE HYCLATE 100 MG CAP PO SCH (22:06)
[2020-12-19] MEDS: ALBUT/IPRATROP 3MG/0.5MG NEB 3 ML VIAL NEB SCH (22:10)
[2020-12-19 23:10] LABS: Appearance Urine Turbid (Clear); Bacteria Urine Automated Negative (Negative); Bilirubin Urine Negative (Negative); Blood Urine 1+ (Negative); Color Urine Yellow; Glucose Urine UA Negative (Negative); Ketones Urine Negative (Negative); Leukocyte Esterase Urine 3+ (Negative); Nitrite Urine Negative (Negative); Protein Urine Negative (Negative); Specific Gravity Urine 1.013 (1.000-1.030); Urobilinogen Urine Negative (Negative); WBC Urine Automated >30 /hpf (0-5); pH Urine 5.5 (4.5-7.5)
[2020-12-19 23:23] LABS: RBC Urine Automated 0-4 /hpf (0-4)
[2020-12-20] MEDS: ALBUT/IPRATROP 3MG/0.5MG NEB 3 ML VIAL NEB SCH ×6 (02:40→22:46)
[2020-12-20 07:31] LABS: Hematocrit (blood only) 35.8 % (42-52); Hemoglobin 11.7 g/dL (14.0-18.0); Mean Corpuscular Hemoglobin 30.6 pg (25-34); Mean Corpuscular Hgb Conc 32.7 g/dL (32-36); Mean Corpuscular Volume 93.7 fL (80-100); RDW Coefficient of Variation 14.6 % (11.5-14.5); RDW Standard Deviation 50.2 fL (36.4-46.3); Red Blood Count 3.82 M/uL (4.7-6.1); White Blood Count 6.24 K/uL (4.8-10.8)
[2020-12-20 07:36] LABS: Mean Platelet Volume 11.1 fL (7.4-10.4); Platelet Count 97 K/uL (130-400)
[2020-12-20] MEDS: FLUTICASONE/VILANTEROL 200/25MCG 14 PUFFS/INHALER INH SCH (08:04)
[2020-12-20] MEDS: dilTIAZem HCL 240 MG CAPCR PO SCH (08:05)
[2020-12-20] MEDS: methylPREDNISolone 40 MG in SYRINGE 0 ML IV SCH (08:05)
[2020-12-20] MEDS: PANTOprazole 40 MG TAB PO SCH ×2 (08:05→21:58)
[2020-12-20] MEDS: DOXYCYCLINE HYCLATE 100 MG CAP PO SCH ×2 (08:05→22:00)
[2020-12-20] MEDS: guaiFENesin 200 MG TAB PO SCH ×2 (08:05→21:59)
[2020-12-20] MEDS: CHOLECALCIFEROL 1,000 UNITS 25 MCG TAB PO SCH (08:06)
[2020-12-20 08:08] LABS: Creatinine Clr Calc Pharmacy 67.6 ml/min; Est GFR (Non-African American) 71.6 ml/min; Potassium 4.3 mmol/L (3.5-5.1)
[2020-12-20] MEDS ORDERED: predniSONE 20 MG TAB PO SCH (09:00)
--- NOTE | 2020-12-20 18:23 | Electrocardiogram Report ---
Test Reason : Blood Pressure : / mmHG Vent. Rate : 065 BPM Atrial Rate : 065 BPM P-R Int : 160 ms QRS Dur : 072 ms QT Int : 432 ms P-R-T Axes : 052 -14 058 degrees QTc Int : 449 ms Normal sinus rhythm Normal ECG When compared with ECG of 30-MAY-2020 13:28, No significant change was found Confirmed by Peter Mariano ([id number]) on 12/20/2020 6:22:39 PM Referred By: REFERRED SELF Confirmed By:Tong Mariano
[2020-12-20] MEDS: ENOXAPARIN INJ 40 MG/0.4 ML SYR SQ SCH (21:57)
[2020-12-20] MEDS: SERTRALINE HCL 100 MG TABLET PO SCH (21:58)
[2020-12-20] MEDS: busPIRone 5 MG TAB PO SCH (21:59)
[2020-12-20] MEDS: ACETAMINOPHEN 325 MG TAB PO PRN (22:00)
[2020-12-20] MEDS: traZODone HCL 50 MG TAB PO SCH (22:00)
[2020-12-21] MEDS: ALBUT/IPRATROP 3MG/0.5MG NEB 3 ML VIAL NEB SCH ×6 (01:59→23:01)
--- NOTE | 2020-12-21 06:38 | Hospitalist Progress Note ---
Date of Service December 20, 2020 Assessment & Plan (1) Acute exacerbation of chronic obstructive pulmonary disease: Continue home nebs, Symbicort, Spiriva (2) Chronic respiratory failure with hypoxia: This is a 70 yo M with a PMH of severe COPD on 6 L NC O2 at baseline, anxiety, history of cirrhosis and other medical problems listed below who presents with worsening SOB and lightheadedness x1 week. Worsening dyspnea on exertion with any type of movement x 1 week, hypoxia to 74% at home. Has saturated above 93% on baseline 6L NC O2 while in ER Afebrile, mild leukocytosis of 11. Covid PCR negative CXR with no change in appearance of the chest. Evidence of chronic emphysema, interstitial thickening VBG consistent with compensated respiratory acidosis Given 125mg IV solu-medrol in ER along with albuterol breathing treatment Prednisone 40mg daily, Doxycycline 100mg BID and Duoneb Q4HR Continue Mucinex (3) Anxiety: Continue Zoloft, Buspar (4) GERD (gastroesophageal reflux disease): Continue PPI (5) Cirrhosis of liver: Former drinker. Has been informed of this diagnosis in the past. LFTs normal DVT Ppx: SQ Lovenox Code status: Full code PCP: Burak [facility] Dispo: Observation med tele. Discharge planning ordered. Admission and Anticipated Discharge Date Admission Date: December 19, 2020 Subjective Pt seen in follow up of COPD exacerbation Says when he was walking he dasatted into low 80s Otherwise denies any chest pain, palpitations, fever, chills Says he cannot take prednisone, doing well on solumedrol now Review of Systems Review of Systems: At least ten systems reviewed and negative except as noted in the HPI. Physical Exam Physical Exam: General Appearance: WD/WN, NAD Head: normocephalic, atraumatic Eyes: normal inspection, PERRL, EOMI, conjunctivae normal, anicteric sclerae ENT: external ear and nose normal, oropharynx normal Neck: normal visual inspection Respiratory: normal respiratory effort, CTAB no wheeze, rales, rhonchi. No accessory muscle use Cardiovascular: regular rate, rhythm, no murmur, normal peripheral pulses, no BLE edema. Vessels: no JVD Chest: normal inspection of chest Abdomen/GI: normal bowel sounds, soft, nontender Extremities/Musculoskeletal: extremities motor strength 5/5 Neurologic: PERRL, EOMI, no face palsy, no dysarthria, moves all extremities Psychiatric: A+Ox3, euthymic affect Skin: no rashes, normal color, warm/dry Results & Data Results & Data ([facility]) Vital Signs (Past 12 Hours) Vital Signs Temp Pulse Pulse Resp BP BP Pulse Ox 12/20/20 23:09 36.8 C 85 18 113/58 L 93 12/20/20 22:47 85 14 93 12/20/20 22:19 90 12/20/20 20:30 12/20/20 19:43 36.7 C 85 18 127/69 92 12/20/20 19:19 80 20 93 Pulse Ox 12/20/20 23:09 12/20/20 22:47 12/20/20 22:19 12/20/20 20:30 90 12/20/20 19:43 12/20/20 19:19
[2020-12-21] MEDS: PANTOprazole 40 MG TAB PO SCH ×2 (08:23→20:11)
[2020-12-21] MEDS: methylPREDNISolone 40 MG in SYRINGE 0 ML IV SCH (08:23)
[2020-12-21] MEDS: FLUTICASONE/VILANTEROL 200/25MCG 14 PUFFS/INHALER INH SCH (08:23)
[2020-12-21] MEDS: guaiFENesin 200 MG TAB PO SCH ×2 (08:24→20:11)
[2020-12-21] MEDS: DOXYCYCLINE HYCLATE 100 MG CAP PO SCH ×2 (08:24→20:10)
[2020-12-21] MEDS: dilTIAZem HCL 240 MG CAPCR PO SCH (08:24)
[2020-12-21] MEDS: CHOLECALCIFEROL 1,000 UNITS 25 MCG TAB PO SCH (08:24)
[2020-12-21] MEDS: ACETAMINOPHEN 325 MG TAB PO PRN (11:57)
--- NOTE | 2020-12-21 18:40 | Hospitalist Progress Note ---
Date of Service December 21, 2020 Assessment & Plan (1) Acute exacerbation of chronic obstructive pulmonary disease: (2) Chronic respiratory failure with hypoxia: Plan: 70 yo M with a PMH of severe COPD on 6 L NC O2 at baseline, anxiety, history of cirrhosis presents with worsening SOB with exertion and hypoxia Covid 19 PCR negative CXR with no change in appearance of the chest. Evidence of chronic emphysema, interstitial thickening VBG consistent with compensated respiratory acidosis Received solumedrol 125mg IV in the ER and neb treatment Currently on IV Solumedrol, Doxycycline 100mg BID and Duoneb Q4HR Continue oxygen supplement with 6L NC baseline Continue Mucinex daily Anxiety: Continue Zoloft, Buspar stable GERD (gastroesophageal reflux disease): Continue PPI Cirrhosis of liver: Former drinker. Has been informed of this diagnosis in the past. LFTs normal DVT Ppx: SQ Lovenox Code status: Full code (3) Anxiety: (4) GERD (gastroesophageal reflux disease): (5) Cirrhosis of liver: Admission and Anticipated Discharge Date Admission Date: December 19, 2020 Subjective Pt was seen and examined for follow up of SOB Lying in bed with no distress watching TV Pt said that his breathing is getting better He said that he has not been able to cough the phlem out Denies any chest pain, palpitation, dizziness and SOB Physical Exam Physical Exam: General Appearance: WD/WN, NAD Head: normocephalic, atraumatic Eyes: normal inspection, PERRL, EOMI, conjunctivae normal, anicteric sclerae ENT: external ear and nose normal, oropharynx normal Neck: normal visual inspection Respiratory: normal respiratory effort, CTAB no wheeze, rales, rhonchi. No accessory muscle use Cardiovascular: regular rate, rhythm, no murmur, normal peripheral pulses, no BLE edema. Vessels: no JVD Chest: normal inspection of chest Abdomen/GI: normal bowel sounds, soft, nontender Extremities/Musculoskeletal: extremities motor strength 5/5 Neurologic: PERRL, EOMI, no face palsy Psychiatric: A+Ox3, euthymic affect Skin: no rashes, normal color, warm/dry Results & Data Results & Data ([facility]) Vital Signs (Past 12 Hours) Vital Signs Temp Pulse Resp BP Pulse Ox 12/21/20 18:16 85 16 92 12/21/20 15:20 37.0 C 79 19 107/56 L 93 12/21/20 15:19 81 16 95 12/21/20 11:25 36.6 C 80 21 128/71 92 12/21/20 11:04 84 20 95 12/21/20 07:42 36.5 C 80 18 118/67 93 12/21/20 07:30 78 20 91
[2020-12-21] MEDS: busPIRone 5 MG TAB PO SCH (20:10)
[2020-12-21] MEDS: ENOXAPARIN INJ 40 MG/0.4 ML SYR SQ SCH (20:10)
[2020-12-21] MEDS: SERTRALINE HCL 100 MG TABLET PO SCH (20:11)
[2020-12-21] MEDS: traZODone HCL 50 MG TAB PO SCH (20:11)
[2020-12-22] MEDS: ALBUT/IPRATROP 3MG/0.5MG NEB 3 ML VIAL NEB SCH ×6 (03:39→22:40)
[2020-12-22] MEDS: dilTIAZem HCL 240 MG CAPCR PO SCH (07:42)
[2020-12-22] MEDS: CHOLECALCIFEROL 1,000 UNITS 25 MCG TAB PO SCH (07:42)
[2020-12-22] MEDS: guaiFENesin 200 MG TAB PO SCH ×2 (07:42→21:35)
[2020-12-22] MEDS: PANTOprazole 40 MG TAB PO SCH ×2 (07:42→21:35)
[2020-12-22] MEDS: FLUTICASONE/VILANTEROL 200/25MCG 14 PUFFS/INHALER INH SCH (07:42)
[2020-12-22] MEDS: methylPREDNISolone 40 MG in SYRINGE 0 ML IV SCH (07:42)
[2020-12-22] MEDS: DOXYCYCLINE HYCLATE 100 MG CAP PO SCH ×2 (07:42→21:34)
[2020-12-22 08:42] LABS: Creatinine Clr Calc Pharmacy 69.6 ml/min; Est GFR (African American) 85.9 ml/min; Est GFR (Non-African American) 74.1 ml/min
[2020-12-22] MEDS: ENOXAPARIN INJ 40 MG/0.4 ML SYR SQ SCH (21:34)
[2020-12-22] MEDS: busPIRone 5 MG TAB PO SCH (21:34)
[2020-12-22] MEDS: traZODone HCL 50 MG TAB PO SCH (21:35)
[2020-12-22] MEDS: SERTRALINE HCL 100 MG TABLET PO SCH (21:35)
[2020-12-22] MEDS: ACETAMINOPHEN 325 MG TAB PO PRN (22:17)
--- NOTE | 2020-12-22 23:32 | Hospitalist Progress Note ---
Date of Service December 22, 2020 Assessment & Plan (1) Acute exacerbation of chronic obstructive pulmonary disease: (2) Chronic respiratory failure with hypoxia: Plan: 70 yo M with a PMH of severe COPD on 6 L NC O2 at baseline, anxiety, history of cirrhosis presents with worsening SOB with exertion and hypoxia Covid 19 PCR negative CXR with no change in appearance of the chest. Evidence of chronic emphysema, interstitial thickening VBG consistent with compensated respiratory acidosis Received solumedrol 125mg IV in the ER and neb treatment Currently on IV Solumedrol, Doxycycline 100mg BID and Duoneb Q4HR Will transition to PO prednisone Continue oxygen supplement with 6L NC baseline Continue Mucinex daily Anxiety: Continue Zoloft, Buspar stable GERD (gastroesophageal reflux disease): Continue PPI Cirrhosis of liver: Former drinker. Has been informed of this diagnosis in the past. LFTs normal DVT Ppx: SQ Lovenox Code status: Full code Disposition Plan to discharge home tomorrow (3) Anxiety: (4) GERD (gastroesophageal reflux disease): (5) Cirrhosis of liver: Admission and Anticipated Discharge Date Admission Date: December 19, 2020 Subjective Pt was seen and examined for follow up of SOB He was walking in the hallway with therapist Pt said that his breathing is getting better Denies any chest pain, palpitation, dizziness and SOB Physical Exam Physical Exam: General Appearance: WD/WN, NAD Head: normocephalic, atraumatic Eyes: normal inspection, PERRL, EOMI, conjunctivae normal, anicteric sclerae ENT: external ear and nose normal, oropharynx normal Neck: normal visual inspection Respiratory: normal respiratory effort, CTAB no wheeze, rales, rhonchi. No accessory muscle use Cardiovascular: regular rate, rhythm, no murmur, normal peripheral pulses, no BLE edema. Vessels: no JVD Chest: normal inspection of chest Abdomen/GI: normal bowel sounds, soft, nontender Extremities/Musculoskeletal: extremities motor strength 5/5 Neurologic: PERRL, EOMI, no face palsy Psychiatric: A+Ox3, euthymic affect Skin: no rashes, normal color, warm/dry Results & Data Results & Data ([facility]) Vital Signs (Past 12 Hours) Vital Signs Temp Pulse Resp BP BP Pulse Ox 12/22/20 23:03 36.7 C 85 18 127/69 94 07/15/21 22:41 84 18 91 12/22/20 19:39 86 22 91 12/22/20 19:23 36.7 C 90 18 124/68 93 12/22/20 16:09 37.0 C 89 20 125/74 92 12/22/20 15:11 80 18 94 12/22/20 11:44 36.9 C 86 19 132/82 90
[2020-12-23] MEDS: ALBUT/IPRATROP 3MG/0.5MG NEB 3 ML VIAL NEB SCH ×2 (04:04→07:31)
[2020-12-23] MEDS: dilTIAZem HCL 240 MG CAPCR PO SCH (08:14)
[2020-12-23] MEDS: CHOLECALCIFEROL 1,000 UNITS 25 MCG TAB PO SCH (08:14)
[2020-12-23] MEDS: DOXYCYCLINE HYCLATE 100 MG CAP PO SCH (08:14)
[2020-12-23] MEDS: FLUTICASONE/VILANTEROL 200/25MCG 14 PUFFS/INHALER INH SCH (08:14)
[2020-12-23] MEDS: methylPREDNISolone 40 MG in SYRINGE 0 ML IV SCH (08:15)
[2020-12-23] MEDS: PANTOprazole 40 MG TAB PO SCH (08:15)
[2020-12-23] MEDS: guaiFENesin 200 MG TAB PO SCH (08:15)
[2020-12-23] MEDS ORDERED: CYANOCOBALAMIN 500 MCG TABLET (VITAMIN B-12) PO SCH (09:00)
[2020-12-23] MEDS ORDERED: ALBUT/IPRATROP 3MG/0.5MG NEB 3 ML VIAL NEB PRN (09:05)
--- NOTE | 2020-12-23 12:40 | Discharge Summary ---
Date of Service December 23, 2020 Admission HPI Per Admitting Provider This is a 70 yo M with a PMH of severe COPD on 6 L NC O2 at baseline, anxiety, history of cirrhosis and other medical problems listed below who presents with worsening SOB and lightheadedness x1 week. Patient started to notice worsening dyspnea on exertion with any type of movement, including just walking 30 feet to the bathroom. Checked his pulse ox during ambulation to the bathroom earlier today and saw that it was 74%. Came to ED for further evaluation. Denies any recent sick contacts. No fever or chills. No productive cough. No chest pain, wheezing, nausea, vomiting, abdominal pain, dysuria, diarrhea constipation. Uses inhalers as scheduled as well as taking Mucinex twice a day. Has not been using nebulizers treatments. He is on 6 L of oxygen at baseline. Follows with [facility] PCP and pulmonology. Lives at home with , adult children and grandchildren. Admission Exam Per Admitting Provider General Appearance: WD/WN, vitals as above, NAD, sitting up in bed, pleasant, conversational dyspnea, wearing oxymask Head: normocephalic, atraumatic Eyes: normal inspection, PERRL, conjunctivae normal, anicteric sclerae ENT: external ear and nose normal, oropharynx normal Neck: normal visual inspection, trachea midline, no thyromegaly Respiratory: normal respiratory effort, diminished lung sounds throughout, no wheeze, rales, rhonchi. No accessory muscle use Cardiovascular: regular rate, rhythm, no murmur, normal peripheral pulses, no BLE edema. Vessels: no JVD Chest: normal inspection of chest Abdomen/GI: normal bowel sounds, soft, nontender, no hepatosplenomegaly Extremities/Musculoskeletal: no cyanosis or clubbing, extremities motor strength 5/5 Neurologic: PERRL, EOMI, accommodation nl, no face palsy, no dysarthria, CN's II-XI intact bilaterally and moves all extremities Psychiatric: A+Ox3, euthymic affect Skin: no rashes, normal color, warm/dry Principal Diagnosis Acute exacerbation of chronic obstructive pulmonary disease: Chronic respiratory failure with hypoxia: Discharge Exam General Appearance: WD/WN, NAD Head: normocephalic, atraumatic Eyes: normal inspection, PERRL, EOMI, conjunctivae normal, anicteric sclerae ENT: external ear and nose normal, oropharynx normal Neck: normal visual inspection Respiratory: normal respiratory effort, CTAB no wheeze, rales, rhonchi. No accessory muscle use Cardiovascular: regular rate, rhythm, no murmur, normal peripheral pulses, no BLE edema. Vessels: no JVD Chest: normal inspection of chest Abdomen/GI: normal bowel sounds, soft, nontender Extremities/Musculoskeletal: extremities motor strength 5/5 Neurologic: PERRL, EOMI, no face palsy Psychiatric: A+Ox3, euthymic affect Skin: no rashes, normal color, warm/dry Discharge Data Allergies Allergy/AdvReac Type Severity Reaction Status Date / Time bee venom protein (honey bee) Allergy Severe ANAPHYLAXIS Verified 12/19/20 17:25 amoxicillin Allergy Intermediate FACIAL Verified 12/19/20 17:25 SWELLING (EYES SWELLED SHUT) clavulanic acid Allergy Intermediate FACIAL Verified 12/19/20 17:25 SWELLING (EYES SWELLED SHUT) pneumococcal vaccine Allergy Intermediate SWELLING Verified 12/19/20 17:25 Amsnuoh-Okj-Ays Reductase Allergy Intermediate CPK'S GO Verified 12/19/20 17:25 Inhibitor THROUGH ROOF prednisone AdvReac Intermediate confusion Verified 12/19/20 17:25 and agitation Consultations 12/19/20 18:52 ED Decision to Admit Stat Ordered Studies XR chest 1V portable CLINICAL HISTORY: Dyspnea COMPARISON STUDY: Chest CT November 28, 2019. Chest radiograph May 30, 2020. FINDINGS: There is no pneumothorax or pleural effusion. Underlying emphysema is present. Interstitial thickening is unchanged. Cardiomediastinal silhouette is stable. There is no consolidation or evidence for pulmonary edema. IMPRESSION: 1. No change in appearance of the chest. Emphysema. 2. Interstitial thickening, likely chronic. ACT 112: Negative or not required by law. Electronically signed by: Mode Solis M.D. 12/19/2020 6:06 PM Dictated: 12/19/201803Transcribed: 12/19/201803 Hospital Course (1) Acute exacerbation of chronic obstructive pulmonary disease: (2) Chronic respiratory failure with hypoxia: 70 yo M with a PMH of severe COPD on 6 L NC O2 at baseline, anxiety, history of cirrhosis presents with worsening SOB with exertion and hypoxia Covid 19 PCR negative CXR with no change in appearance of the chest. Evidence of chronic emphysema, interstitial thickening VBG consistent with compensated respiratory acidosis Received solumedrol 125mg IV in the ER and [facility] treatment Currently on IV Solumedrol, Doxycycline 100mg BID and Duoneb Q4HR Will transition to PO medrol dose wilman and doxycycline PO Continue oxygen supplement with 6L NC baseline Continue Mucinex daily Continue flutter valve. Pt said that he has vibrating vest, will continue it at home Anxiety: Continue Zoloft, Buspar stable GERD (gastroesophageal reflux disease): Continue PPI Cirrhosis of liver: Former drinker. Has been informed of this diagnosis in the past. LFTs normal DVT Ppx: SQ Lovenox Code status: Full code Disposition Plan to discharge home today Total Time Total Time Spent Total Time Spent (In Minutes): 35 minutes Discharge Plan Discharge Items Patient Disposition: Home - Self-Care Reason For Visit: COPD EXACERBATION. Discharge Diagnosis: (1) Acute exacerbation of chronic obstructive pulmonary disease: (2) Chronic respiratory failure with hypoxia: Activity: Resume your previous activity Non-emergency contact: Primary Care Provider Call non-emergency contact if: you have any medication questions Follow-up/Referrals: PCP,NO [Physician] - (Your Primary Care Physician's office at the [facility] will call you with an appointment for follow up of your hospital stay.) Diet: Heart Healthy Addtl Attending Provider Instructions: Follow up with your primary care provider at the [facility] within 1 week Continue oxygen supplement at 6L nasal canula Continue Flutter valve and chest PT (vibrating vest) seek medical attention if shortness of breath worsening Pending Studies at Discharge: No Stand-Alone Forms: [employer], Smoking Cessation Medications and DC Order Prescriptions: New methylprednisolone [Medrol ([place])] 4 mg tablets,dose pack 4 mg PO UD Qty: 21 RF: 0 Continued albuterol sulfate 2.5 mg /3 mL (0.083 %) Solution For Nebulization 2.5 mg inhalation QID PRN (Reason: Shortness Of Breath Or Wheezing) RF: 0 albuterol sulfate 90 mcg/actuation Hfa Aerosol Inhaler 2 puff INHALATION Q6H PRN (Reason: Shortness Of Breath Or Wheezing) RF: 0 buspirone 5 mg Tablet 5 mg PO QPM RF: 0 cetirizine 10 mg Tablet 10 mg PO DAILY PRN (Reason: Allergy Symptoms) RF: 0 sertraline 100 mg Tablet 200 mg PO HS RF: 0 trazodone 150 mg Tablet 150 mg PO HS RF: 0 omeprazole 20 mg Capsule,Delayed Release(Dr/Ec) 20 mg PO BID RF: 0 Spiriva with HandiHaler 18 mcg Capsule, W/Inhalation Device 1 cap INHALATION QPM RF: 0 guaifenesin 200 mg Tablet 400 mg PO BID RF: 0 epinephrine [EpiPen] 0.3 mg/0.3 mL Auto-Injector 0.3 mg IM DIRECTED PRN (Reason: Allergic Reaction) RF: 0 budesonide-formoterol [Symbicort] 160-4.5 mcg/actuation Hfa Aerosol Inhaler 2 puff INHALATION BID RF: 0 cholecalciferol (vitamin D3) [Vitamin D3] 25 mcg (1,000 unit) Capsule 1,000 unit PO QAM RF: 0 cyanocobalamin (vitamin B-12) [Vitamin B-12] 1,000 mcg Tablet 1,000 mcg PO 2XWK RF: 0 diltiazem HCl 240 mg Capsule,Ext.Rel 24h Degradable 240 mg PO DAILY RF: 0 Discharge Orders: Discharge Order (Routine); Ordered 12/23/20 Ordered By: Jay Hein Admission Data Admit Date/Time: 12/21/20 06:33 Attending Provider: Jay Hein Admit Provider: Nav Neumann Primary Care Provider: Valencia Patel Other Providers: Nav Neumann ; [facility] ; Mendel Moreno Other Interventions: Discharge Summary Assessment (RN) Last Done: 12/23/20 12:47
== END 2020-12-23 14:22 | disposition home or self-care (01) | DRG 191 ==
LOC: ED 16:18 → 2W 16:18 → SUATTDRO 19:10 → 2W 20:30

== ENCOUNTER 2021-05-09 12:37 | Inpatient (IN) ==
--- NOTE | 2021-05-09 13:27 | XRay Report ---
SINGLE VIEW CHEST CLINICAL HISTORY: Dyspnea. FINDINGS: An AP, portable, upright chest radiograph is compared to study dated 12/19/2020 and correlat ed with chest CT dated 12/06/2019. The heart is top normal for projection. Enlargement of the central pulmonary arteries is unchanged and suggests pulmonary artery hypertension. Advanced emphysema with c hanges of chronic interstitial lung disease are similar to previous. There is bibasilar scarring/atel ectasis. No airspace consolidation typical for pneumonia or large pleural effusion is identified. No pneumothorax is seen. The skeletal structures are osteopenic. The bony thorax is grossly intact. IMPRESSION: 1. No acute cardiopulmonary abnormality. 2. Findings of emphysema with superimposed chronic interstitial lung disease are similar to previous. ACT 112: Negative or not required by law. Electronically signed by: Luciano Prieto M.D. 05/09/2021 1:25 PM
--- NOTE | 2021-05-09 13:31 | Electrocardiogram Report ---
Test Reason : Blood Pressure : / mmHG Vent. Rate : 076 BPM Atrial Rate : 076 BPM P-R Int : 150 ms QRS Dur : 072 ms QT Int : 372 ms P-R-T Axes : 057 -24 066 degrees QTc Int : 418 ms Normal sinus rhythm Normal ECG When compared with ECG of 19-DEC-2020 16:51, No significant change was found Confirmed by Peter Mariano ([id number]) on 05/09/2021 1:30:52 PM Referred By: Confirmed By:Tong Mariano
[2021-05-09 13:33] LABS: Basophils # (auto) 0.01 K/uL (0-0.2); Basophils % (auto) 0.1 %; Eosinophils # (auto) 0.12 K/uL (0-0.5); Eosinophils % (auto) 1.2 %; Hematocrit (blood only) 41.7 % (42-52); Immature Granulocytes # (auto) 0.03 K/uL (0.00-0.02); Immature Granulocytes % (auto) 0.3 %; Lymphocytes # (auto) 0.98 K/uL (1.2-3.4); Lymphocytes % (auto) 10.2 %; Mean Corpuscular Hemoglobin 31.1 pg (25-34); Mean Corpuscular Hgb Conc 31.2 g/dL (32-36); Mean Corpuscular Volume 99.8 fL (80-100); Mean Platelet Volume 10.6 fL (7.4-10.4); Monocytes % (auto) 7.3 %; Neutrophils % (auto) 80.9 %; Platelet Count 152 K/uL (130-400); RDW Coefficient of Variation 13.7 % (11.5-14.5); RDW Standard Deviation 50.5 fL (36.4-46.3); Red Blood Count 4.18 M/uL (4.7-6.1); White Blood Count 9.64 K/uL (4.8-10.8)
[2021-05-09 13:53] LABS: Alanine Aminotransferase 23 U/L (12-78); Albumin Level 3.9 gm/dl (3.4-5.0); BUN Creatinine Ratio 10.5 (10-20); Blood Urea Nitrogen 11 mg/dl (7-18); Calcium 9.3 mg/dl (8.5-10.1); Carbon Dioxide 39 mmol/L (21-32); Chloride 94 mmol/L (98-107); Creatinine Clr Calc Pharmacy 64.2 ml/min; Est GFR (African American) 78.7 ml/min; Est GFR (Non-African American) 67.9 ml/min; Glucose 92 mg/dl (70-99); Potassium 3.7 mmol/L (3.5-5.1); Sodium 138 mmol/L (136-145)
[2021-05-09 14:00] LABS: Albumin Globulin Ratio 0.9 (0.9-2); Alkaline Phosphatase 92 U/L (45-117); Aspartate Aminotransferase 24 U/L (15-37); Bilirubin,Total 0.5 mg/dl (0.2-1); Globulin 4.5 gm/dl (2.5-4.0); Total Protein 8.4 gm/dl (6.4-8.2); Troponin I < 0.015 ng/ml (0-0.045)
[2021-05-09] MEDS ORDERED: ALBUT/IPRATROP 3MG/0.5MG NEB 3 ML VIAL NEB STA (14:32)
[2021-05-09] MEDS ORDERED: methylPREDNISolone 125 MG/2 ML VIAL IV STA (14:32)
--- NOTE | 2021-05-09 14:34 | Emergency Department Note ---
Impression & Plan Acute respiratory failure with hypoxia and hypercarbia ADMIT ED Provider Note HPI: The patient is a 71-year-old male with history of COPD on 6 L nasal cannula oxygen at baseline history of agent orange exposure, presents the emergency department with a chief complaint of shortness of breath with physical exertion and desaturations with physical exertion. He states this has been worsening over the past several weeks. Denies any chest pain, denies any recent fevers or cough. Pt states he is fully vaccinated against COVID-19. ROS: -Pulmonary: Shortness of breath on exertion *10 point review systems was conducted and is otherwise negative unless stated above *Outpatient medications and allergy history reviewed PE: General: Alert, NAD HEENT: Normocephalic, atraumatic, trachea midline Eyes: Extraocular eye movement is intact, no scleral erythema Pulmonary: Diminished bilaterally, no wheezing Cardio: Regular rate and rhythm GI: Abdomen is soft, nontender : No suprapubic tenderness MSK: No evidence of trauma or malformation of the extremities, no edema Skin: No evidence of rash Neuro: Alert, no focal deficits Psychiatric: Cooperative hris coordinator: - An order was placed for continuous cardiac monitoring - Patient was noted to be in sinus rhythm with rate of 85 EKG: Rate: 76 Rhythm: Normal sinus rhythm Intervals: Within normal limits ST changes: No ST elevation Time: 1313 Medical Decision Making: On arrival here to the ED the patient is stable at rest on a 6 L nasal cannula oxygen which he wears at baseline. Chest x-ray does not show any evidence of pneumonia. Venous blood gas shows evidence of hypercarbic retention with a PCO2 of 81, pH is near compensated at 7.33. Lab work is otherwise largely unremarkable including a negative troponin. EKG does not show any ischemic changes. Ambulatory pulse ox was performed here in the ED and the patient did have an acute desaturation with minimal exertion making it only a few feet before he became hypoxic into the 70s despite being on 6 L nasal cannula oxygen. Given this in addition to his hypercarbia [facility]. COVID-19 test is pending. * Diagnosis: Hypercarbic respiratory failure, dyspnea on exertion, hypoxia on exertion despite supplemental oxygen * Disposition: Admission * CRITICAL CARE TIME: 32 min -Treatment of hypoxia on exertion requiring supplemental oxygen for stabilization, treatment of hypercarbic respiratory failure requiring DuoNeb breathing treatments and IV Solu-Medrol, time spent at the bedside, discussion with the patient, discussion with other physicians and arrangement of admission Tomer Powell DO Emergency Medicine Past Med/Surg History Medical History (Updated 05/09/21 @ 15:25 by Tomer Powell DO) Anemia COPD (chronic obstructive pulmonary disease) with emphysema Depression GERD (gastroesophageal reflux disease) Hearing deficit [place] 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 [place] exposure History of COVID-19 05/2020 - hospitalized at [facility] - sob, cough, generalized weakness --> pneumonia; still requiring more supplemental oxygen since having Covid (currently on 6 lpm cont home o2, prior to covid was only on 4 lpm) History of kidney stones History of tobacco abuse HTN (hypertension) On home O2 cont @ 6 lpm Osteoarthritis PTSD (post-traumatic stress disorder) Pulmonary nodules Thrombocytopenia Surgical History Dilatation of ureter H/O hernia repair History of appendectomy History of cardiac cath x 2 - most recent [place] 2010 - no stents; also cath years prior at [facility] and no stents History of colonoscopy History of extraction of renal calculus History of tonsillectomy Loss of teeth due to extraction S/P arthroscopic surgery of right knee Family History Mother Colon cancer Father FH: kidney cancer Other Cancer Social History Smoking Status: Former smoker Tobacco Type: Cigarettes Cigarettes Per Day: 40 pack year hx; Second Hand Exposure: No; Hx Alcohol Use: No Hx Substance Use: No Preferred Language: [place] Leonean Communication Ability: Effective Plate Sensitizer Required: No Beliefs That Will Affect Care: None marital status: Current Living Situation: Spouse Current Living Situation Comment: lives with spouse 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 Feels Safe at Home: Yes Assistive Devices: Oxygen - Continuous Allergies Allergies Allergy/AdvReac Type Severity Reaction Status Date / Time bee venom protein (honey bee) Allergy Severe ANAPHYLAXIS Verified 03/24/21 09:37 amoxicillin Allergy Intermediate FACIAL Verified 03/24/21 09:37 SWELLING (EYES SWELLED SHUT) clavulanic acid Allergy Intermediate FACIAL Verified 03/24/21 09:37 SWELLING (EYES SWELLED SHUT) pneumococcal vaccine Allergy Intermediate SWELLING Verified 03/24/21 09:37 Kbrqabh-IME-RjW Reductase Allergy Intermediate CPK'S GO Verified 03/24/21 09:37 Inhibitor THROUGH [Bxgltkk-Bbx-Ogi Reductase ROOF Inhibitor] prednisone AdvReac Intermediate confusion Verified 03/24/21 09:37 and agitation Home Meds Home Medications Medication Instructions Recorded Confirmed buspirone 5 mg tablet 5 mg PO QPM 04/08/18 03/21/21 cetirizine 10 mg tablet 10 mg PO DAILY PRN 04/08/18 03/21/21 omeprazole 20 mg capsule,delayed 20 mg PO BID 04/08/18 03/21/21 release sertraline 100 mg tablet 200 mg PO HS 04/08/18 03/21/21 tiotropium bromide 18 mcg capsule 1 cap INHALATION QPM 04/08/18 03/21/21 with inhalation device (Spiriva with HandiHaler) trazodone 150 mg tablet 150 mg PO HS 04/08/18 03/21/21 albuterol sulfate 2.5 mg INHALATION QID PRN 07/04/18 03/21/21 albuterol sulfate 90 mcg/actuation 2 puff INHALATION Q6H PRN 07/04/18 03/21/21 aerosol inhaler budesonide-formoterol HFA 160 2 puff INHALATION BID 08/22/18 03/21/21 mcg-4.5 mcg/actuation aerosol inhaler (Symbicort) epinephrine 0.3 mg/0.3 mL 0.3 mg IM DIRECTED PRN 08/22/18 03/21/21 injection, auto-injector (EpiPen) guaifenesin 200 mg tablet 400 mg PO BID 08/22/18 03/21/21 cholecalciferol (vitamin D3) 25 1,000 unit PO QAM 08/19/19 03/21/21 mcg (1,000 unit) capsule (Vitamin D3) cyanocobalamin (vitamin B-12) 1,000 mcg PO 2XWK 12/19/20 03/21/21 1,000 mcg tablet (Vitamin B-12) diltiazem HCl 240 mg 240 mg PO QAM 12/19/20 03/24/21 capsule,extended release 24 hr, controlled Results & Data (ED) Vital Signs Vital Signs - 24 hr 05/09/21 12:43 05/09/21 13:54 05/09/21 14:30 Temperature 36.3 C L Temperature Source Temporal Artery Scan Pulse Rate 92 H Pulse Rate [Exercises] Pulse Rate [Right Finger] 82 Respiratory Rate 24 18 Respiratory Rate [Exercises] Respiratory Effort / Characteristics Labored Non-Labored Spontaneous Respiratory Depth Blood Pressure 131/80 Blood Pressure [Left Arm] 96/54 L Blood Pressure Mean 97 Blood Pressure Mean [Left Arm] 68 Pulse Oximetry 99 Pulse Oximetry [Exercises] Oxygen Delivery Method Nasal Cannula Nasal Cannula Nasal Cannula Oxygen Flow Rate 6 6 6 Sepsis Recent Fever Within 48 Hours No Sepsis New/Unexplained Change in Mental Status N/A Sepsis Action Taken by Nursing No Action Required 05/09/21 14:51 05/09/21 15:00 05/09/21 15:34 Temperature Temperature Source Pulse Rate Pulse Rate [Exercises] 88 Pulse Rate [Right Finger] 75 77 Respiratory Rate 16 18 Respiratory Rate [Exercises] 22 Respiratory Effort / Characteristics Non-Labored Spontaneous Non-Labored Respiratory Depth Normal Blood Pressure Blood Pressure [Left Arm] 116/72 Blood Pressure Mean Blood Pressure Mean [Left Arm] 86 Pulse Oximetry 96 95 Pulse Oximetry [Exercises] 81 L Oxygen Delivery Method Nasal Cannula Nasal Cannula Nasal Cannula Oxygen Flow Rate 6 6 6 Sepsis Recent Fever Within 48 Hours Sepsis New/Unexplained Change in Mental Status Sepsis Action Taken by Nursing 05/09/21 15:35 Temperature Temperature Source Pulse Rate Pulse Rate [Exercises] Pulse Rate [Right Finger] Respiratory Rate Respiratory Rate [Exercises] Respiratory Effort / Characteristics Respiratory Depth Blood Pressure Blood Pressure [Left Arm] Blood Pressure Mean Blood Pressure Mean [Left Arm] Pulse Oximetry 93 Pulse Oximetry [Exercises] Oxygen Delivery Method Nasal Cannula Oxygen Flow Rate 6 Sepsis Recent Fever Within 48 Hours Sepsis New/Unexplained Change in Mental Status Sepsis Action Taken by Nursing Laboratory Data Result diagrams: 05/09/21 13:22 05/09/21 13:22 Lab Results 05/09/21 05/09/21 05/09/21 Range/Units 13:22 13:22 13:22 WBC 9.64 (4.8-10.8) K/uL RBC 4.18 L (4.7-6.1) M/uL Hgb 13.0 L (14.0-18.0) g/dL Hct 41.7 L (42-52) % MCV 99.8 (80-100) fL MCH 31.1 (25-34) pg MCHC 31.2 L (32-36) g/dL RDW Std Deviation 50.5 H (36.4-46.3) fL RDW Coeff of Ren 13.7 (11.5-14.5) % Plt Count 152 (130-400) K/uL MPV 10.6 H (7.4-10.4) fL Immature Gran % (Auto) 0.3 % Neut % (Auto) 80.9 % Lymph % (Auto) 10.2 % [place] % (Auto) 7.3 % Eos % (Auto) 1.2 % Baso % (Auto) 0.1 % Neut # (Auto) 7.80 H (1.4-6.5) K/uL Lymph # (Auto) 0.98 L (1.2-3.4) K/uL [place] # (Auto) 0.70 H (0.11-0.59) K/uL Eos # (Auto) 0.12 (0-0.5) K/uL Baso # (Auto) 0.01 (0-0.2) K/uL Immature Gran # (Auto) 0.03 H (0.00-0.02) K/uL PT Cancelled INR Cancelled APTT Cancelled PTT Ratio Cancelled VBG pH (7.36-7.41) VBG pCO2 (38-50) mmHg VBG pO2 mmHg VBG HCO3 mmol/L VBG O2 Saturation % VBG Base Excess mEq/L Barometric Pressure mm/Hg Sodium 138 (136-145) mmol/L Potassium 3.7 (3.5-5.1) mmol/L Chloride 94 L (98-107) mmol/L Carbon Dioxide 39 H (21-32) mmol/L Anion Gap 6.0 (3-11) BUN 11 (7-18) mg/dl Creatinine 1.09 (0.6-1.4) mg/dl Est Cr Clr Drug Dosing 64.2 ml/min Est GFR ( Amer) 78.7 ml/min Est GFR (Non-Af Amer) 67.9 ml/min BUN/Creatinine Ratio 10.5 (10-20) Glucose 92 (70-99) mg/dl Calcium 9.3 (8.5-10.1) mg/dl Magnesium 2.0 (1.8-2.4) mg/dl Total Bilirubin 0.5 (0.2-1) mg/dl AST 24 (15-37) U/L ALT 23 (12-78) U/L Alkaline Phosphatase 92 (45-117) U/L Troponin I < 0.015 (0-0.045) ng/ml Total Protein 8.4 H (6.4-8.2) gm/dl Albumin 3.9 (3.4-5.0) gm/dl Globulin 4.5 H (2.5-4.0) gm/dl Albumin/Globulin Ratio 0.9 (0.9-2) 05/09/ Range/Units 14:45 WBC (4.8-10.8) K/uL RBC (4.7-6.1) M/uL Hgb (14.0-18.0) g/dL Hct (42-52) % MCV (80-100) fL MCH (25-34) pg MCHC (32-36) g/dL RDW Std Deviation (36.4-46.3) fL RDW Coeff of Ren (11.5-14.5) % Plt Count (130-400) K/uL MPV (7.4-10.4) fL Immature Gran % (Auto) % Neut % (Auto) % Lymph % (Auto) % [place] % (Auto) % Eos % (Auto) % Baso % (Auto) % Neut # (Auto) (1.4-6.5) K/uL Lymph # (Auto) (1.2-3.4) K/uL [place] # (Auto) (0.11-0.59) K/uL Eos # (Auto) (0-0.5) K/uL Baso # (Auto) (0-0.2) K/uL Immature Gran # (Auto) (0.00-0.02) K/uL PT INR APTT PTT Ratio VBG pH 7.33 L (7.36-7.41) VBG pCO2 81 H (38-50) mmHg VBG pO2 54 mmHg VBG HCO3 42 mmol/L VBG O2 Saturation 88.0 % VBG Base Excess 12.4 mEq/L Barometric Pressure 728.6 mm/Hg Sodium (136-145) mmol/L Potassium (3.5-5.1) mmol/L Chloride (98-107) mmol/L Carbon Dioxide (21-32) mmol/L Anion Gap (3-11) BUN (7-18) mg/dl Creatinine (0.6-1.4) mg/dl Est Cr Clr Drug Dosing ml/min Est GFR ( Amer) ml/min Est GFR (Non-Af Amer) ml/min BUN/Creatinine Ratio (10-20) Glucose (70-99) mg/dl Calcium (8.5-10.1) mg/dl Magnesium (1.8-2.4) mg/dl Total Bilirubin (0.2-1) mg/dl AST (15-37) U/L ALT (12-78) U/L Alkaline Phosphatase (45-117) U/L Troponin I (0-0.045) ng/ml Total Protein (6.4-8.2) gm/dl Albumin (3.4-5.0) gm/dl Globulin (2.5-4.0) gm/dl Albumin/Globulin Ratio (0.9-2) Administered Medications Discontinued Medications Albuterol (Albut/Ipratrop 3mg/0.5mg Neb 3 Ml Vial) 3 ml NEB NOW STA Stop: 05/09/21 14:33 Last Admin: 05/09/21 14:50 Dose: 3 ml Documented by: [id number] Sodium Chloride (Nss) 500 mls @ 999 mls/hr IV .Q31M ONE Stop: 05/09/21 15:19 Last Admin: 05/09/21 15:03 Dose: 999 mls/hr Documented by: [id number] Methylprednisolone (Methylprednisolone 125 Mg/2 Ml Vial) 125 mg IV NOW STA Stop: 05/09/21 14:33 Last Admin: 05/09/21 15:02 Dose: 125 mg Documented by: [id number] Imaging Data Radiologist's Impression: Chest X-Ray 05/09/21 12:48 SINGLE VIEW CHEST CLINICAL HISTORY: Dyspnea. FINDINGS: An AP, portable, upright chest radiograph is compared to study dated 12/19/2020 and correlated with chest CT dated 12/06/2019. The heart is top normal for projection. Enlargement of the central pulmonary arteries is unchanged and suggests pulmonary artery hypertension. Advanced emphysema with changes of chronic interstitial lung disease are similar to previous. There is bibasilar scarring/atelectasis. No airspace consolidation typical for pneumonia or large pleural effusion is identified. No pneumothorax is seen. The skeletal structures are osteopenic. The bony thorax is grossly intact. IMPRESSION: 1. No acute cardiopulmonary abnormality. 2. Findings of emphysema with superimposed chronic interstitial lung disease are similar to previous. ACT 112: Negative or not required by law. Electronically signed by: Luciano Prieto M.D. 05/09/2021 1:25 PM Discharge Plan Visit Data Chief Complaint: Shortness of Breath/Dyspnea Stated Complaint: SOB EVEN WITH O2 ON ED Provider: Tomer Powell Discharge Problem: Acute respiratory failure with hypoxia and hypercarbia Forms Stand Alone Forms: [employer] [facility] Prescriptions Prescriptions: No Action albuterol sulfate 2.5 mg /3 mL (0.083 %) Solution For Nebulization 2.5 mg inhalation QID PRN (Reason: Shortness Of Breath Or Wheezing) RF: 0 albuterol sulfate 90 mcg/actuation Hfa Aerosol Inhaler 2 puff INHALATION Q6H PRN (Reason: Shortness Of Breath Or Wheezing) RF: 0 buspirone 5 mg Tablet 5 mg PO QPM RF: 0 cetirizine 10 mg Tablet 10 mg PO DAILY PRN (Reason: Allergy Symptoms) RF: 0 sertraline 100 mg Tablet 200 mg PO HS RF: 0 trazodone 150 mg Tablet 150 mg PO HS RF: 0 omeprazole 20 mg Capsule,Delayed Release(Dr/Ec) 20 mg PO BID RF: 0 Spiriva with HandiHaler 18 mcg Capsule, W/Inhalation Device 1 cap INHALATION QPM RF: 0 guaifenesin 200 mg Tablet 400 mg PO BID RF: 0 epinephrine [EpiPen] 0.3 mg/0.3 mL Auto-Injector 0.3 mg IM DIRECTED PRN (Reason: Allergic Reaction) RF: 0 budesonide-formoterol [Symbicort] 160-4.5 mcg/actuation Hfa Aerosol Inhaler 2 puff INHALATION BID RF: 0 cholecalciferol (vitamin D3) [Vitamin D3] 25 mcg (1,000 unit) Capsule 1,000 unit PO QAM RF: 0 cyanocobalamin (vitamin B-12) [Vitamin B-12] 1,000 mcg Tablet 1,000 mcg PO 2XWK RF: 0 diltiazem HCl 240 mg Capsule,Ext.Rel 24h Degradable 240 mg PO QAM RF: 0 Referrals Referrals: Valencia Patel PA-C [Primary Care Provider] -
[2021-05-09] MEDS ORDERED: SODIUM CHLORIDE 0.9% 500 ML IV ONE (14:49)
[2021-05-09 15:07] LABS: Base Excess VBG 12.4 mEq/L; pH VBG 7.33 (7.36-7.41)
[2021-05-09] MEDS ORDERED: AZITHROMYCIN 250 MG TAB PO ONE (16:08)
--- NOTE | 2021-05-09 16:24 | History & Physical Report ---
Date of Service May 09, 2021 Assessment & Plan (1) Acute on chronic respiratory failure with hypoxia and hypercapnia: (2) COPD exacerbation: (3) HTN (hypertension): (4) PTSD (post-traumatic stress disorder): Plan: This is a 71-year-old male who has significant past medical history of severe COPD on chronic 6 L of oxygen, cirrhosis, HTN, PTSD, depression with anxiety, history of tobacco abuse, anemia who presents to ED secondary to worsening shortness of breath times several weeks. He elicits that he has been following pulmonary rehab for the past 3 to 4 weeks 2 times a week. Acute on Chronic Respiratory failure with hypoxia and hypercapnia COPD Exac admit to [facility] tele IV solumedrol 30mg TID Azithromycin 500mg po x 3 days duoneb QID and q2h prn incentive spirometry, flutter valve muccinex continue supplemental oxygen obtain abg, consider BIPAP if CO2 significantly elevated from baseline continue symbicort and spiriva pt follows [facility] HTN bp stable continue diltiazem Depression with anxiety/PTSD continue zoloft, buspar and trazodone mood stable DVT ppx: SQ Lovenox Dispo:med tele PCP: Valencia Patel PA-C FULL CODE Pt was seen and examined in collaboration with Dr. Moreno, please see addendum History of Present Illness Chief Complaint: Increasing shortness of breath times several weeks. Primary Care Provider: Valencia Patel PA-C This is a 71-year-old male who has significant past medical history of severe COPD on chronic 6 L of oxygen, cirrhosis, HTN, PTSD, depression with anxiety, history of tobacco abuse, anemia who presents to ED secondary to worsening shortness of breath times several weeks. He elicits that he has been following pulmonary rehab for the past 3 to 4 weeks 2 times a week. Over the past few weeks he has noticed increasing need to use his rescue albuterol inhaler. He has been using it twice a day. Per pulmonary rehab they felt this was an exacerbation and recommended he be seen in ER due to history of allergy to oral prednisone. He denies any wheezing or increased sputum production. He does have a chronic cough of productive white sputum. He admits to being chilled and sweats but denies any documented fever. He denies any lightheadedness, dizziness, syncope, chest pain, palpitations, hemoptysis, nausea, vomiting, abdominal pain, change in bowel or urinary habits. His appetite is otherwise been stable. He has been compliant with his Symbicort and Spiriva. He denies any known sick contacts. In ED patient remained hemodynamically stable. Upon ambulation he did desaturate on his chronic 6 L of oxygen. He did receive 125 mg IV Solu-Medrol, albuterol nebulizer treatment and his symptoms did mildly improve. Chest x-ray was negative for acute abnormality. His VBG does show a compensatory respiratory acidosis; however, hypercarbia is worse than baseline. Allergies Allergy/AdvReac Type Severity Reaction Status Date / Time bee venom protein (honey bee) Allergy Severe ANAPHYLAXIS Verified 05/09/21 15:48 amoxicillin Allergy Intermediate FACIAL Verified 05/09/21 15:48 SWELLING (EYES SWELLED SHUT) clavulanic acid Allergy Intermediate FACIAL Verified 05/09/21 15:48 SWELLING (EYES SWELLED SHUT) pneumococcal vaccine Allergy Intermediate SWELLING Verified 05/09/21 15:48 Ottbgoj-AZC-NlZ Reductase Allergy Intermediate CPK'S GO Verified 05/09/21 15:48 Inhibitor THROUGH [Xkuzwns-Spc-Gjd Reductase ROOF Inhibitor] prednisone AdvReac Intermediate confusion Verified 05/09/21 15:48 and agitation Home Medications Medication Instructions Recorded Confirmed Type buspirone 5 mg tablet 5 mg PO QPM 04/08/18 05/09/21 History cetirizine 10 mg tablet 10 mg PO DAILY PRN 04/08/18 05/09/21 History omeprazole 20 mg capsule,delayed 20 mg PO BID 04/08/18 05/09/21 History release sertraline 100 mg tablet 200 mg PO HS 04/08/18 05/09/21 History tiotropium bromide 18 mcg capsule 1 cap INHALATION QPM 04/08/18 05/09/21 History with inhalation device (Spiriva with HandiHaler) trazodone 150 mg tablet 150 mg PO HS 04/08/18 05/09/21 History albuterol sulfate 2.5 mg INHALATION QID PRN 07/04/18 05/09/21 History albuterol sulfate 90 mcg/actuation 2 puff INHALATION Q6H PRN 07/04/18 05/09/21 History aerosol inhaler budesonide-formoterol HFA 160 2 puff INHALATION BID 08/22/18 05/09/21 History mcg-4.5 mcg/actuation aerosol inhaler (Symbicort) epinephrine 0.3 mg/0.3 mL 0.3 mg IM DIRECTED PRN 08/22/18 05/09/21 History injection, auto-injector (EpiPen) guaifenesin 200 mg tablet 400 mg PO BID 08/22/18 05/09/21 History cholecalciferol (vitamin D3) 25 1,000 unit PO QAM 08/19/19 05/09/21 History mcg (1,000 unit) capsule (Vitamin D3) cyanocobalamin (vitamin B-12) 1,000 mcg PO 2XWK 12/19/20 05/09/21 History 1,000 mcg tablet (Vitamin B-12) diltiazem HCl 240 mg 240 mg PO QAM 12/19/20 05/09/21 History capsule,extended release 24 hr, controlled aspirin 81 mg tablet,delayed 81 mg PO QAM #30 tab 05/16/21 Rx release azithromycin 250 mg tablet 250 mg PO MoWeFr@0900 #15 tab 05/16/21 Rx isosorbide mononitrate 30 mg 30 mg PO QAM #30 tab 05/16/21 Rx tablet,extended release 24 hr methylprednisolone 16 mg tablet 32 mg PO DAILY #4 tab 05/16/21 Rx (Medrol) Past Med/Surg History Medical History Anemia COPD (chronic obstructive pulmonary disease) with emphysema Depression GERD (gastroesophageal reflux disease) Hearing deficit BL BRUNO 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 [place] exposure History of COVID-19 05/2020 - hospitalized at [facility] - sob, cough, generalized weakness --> pneumonia; still requiring more supplemental oxygen since having Covid (currently on 6 lpm cont home o2, prior to covid was only on 4 lpm) History of kidney stones History of tobacco abuse HTN (hypertension) On home O2 cont @ 6 lpm Osteoarthritis Palliative care encounter PTSD (post-traumatic stress disorder) Pulmonary nodules Thrombocytopenia Surgical History Dilatation of ureter H/O hernia repair History of appendectomy History of cardiac cath x 2 - most recent [place] 2010 - no stents; also cath years prior at [facility] and no stents History of colonoscopy History of extraction of renal calculus History of tonsillectomy Loss of teeth due to extraction S/P arthroscopic surgery of right knee Family History Mother Colon cancer Father FH: kidney cancer Other Cancer Social History Smoking Status: Former smoker Tobacco Type: Cigarettes Cigarettes Per Day: 40 pack year hx; Second Hand Exposure: No; Hx Alcohol Use: No Hx Substance Use: No Preferred Language: Bulgarian Communication Ability: Effective 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 Required: No Beliefs That Will Affect Care: None marital status: Current Living Situation: Spouse Current Living Situation Comment: lives with spouse 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 Feels Safe at Home: Yes Assistive Devices: Glasses, Oxygen - Continuous and Walker Review of Systems Review of Systems: All systems reviewed & are unremarkable except as noted in HPI & below Physical Exam Physical Exam: Constitutional: Alert, male, chronically ill-appearing, vitals as above, NAD, sitting up in bed, pleasant, conversing easily Head: Normocephalic, Atraumatic Eyes: PERRL, conjunctivae normal, anicteric sclerae ENMT: external ear and nose normal, oropharynx normal Neck: trachea midline, no thyromegaly normal visual inspection Respiratory: On 6 L O2 via NC, decreased breath sounds throughout, diminished aeration, respiratory effort, lungs clear to auscultation, no wheeze, rales, rhonchi. Normal insp/exp effort, no accessory muscle use Cardiovascular: RRR, no murmur, no edema Vessels: no JVD or carotid bruit Chest: normal inspection of chest Abdomen: normal bowel sounds, soft, nontender, Musculoskeletal: no cyanosis or clubbing, extremities motor strength 5/5 Skin: no rashes, warm and dry normal turgor Neurologic: PERRL, EOMI, accommodation nl, no face palsy, no dysarthria CN's II-XI intact bilaterally and moves all extremities Psychiatric: A+Ox3, euthymic affect Lymphatic: no cervical or axillary lymphadenopathy : deferred Results & Data Results & Data ([facility]) Vital Signs (Past 12 Hours) Vital Signs Temp Pulse Pulse Pulse Resp Resp BP 05/09/21 15:35 05/09/21 15:34 88 22 05/09/21 15:00 77 18 05/09/21 14:51 75 16 05/09/21 13:54 82 18 05/09/21 12:43 36.3 C L 92 H 24 131/80 BP Pulse Ox Pulse Ox 05/09/21 15:35 93 05/09/21 15:34 81 L 05/09/21 15:00 116/72 95 05/09/21 14:51 96 05/09/21 13:54 96/54 L 99 05/09/21 12:43 Diagnostic Findings Chest X-Ray 05/09/21 12:48 SINGLE VIEW CHEST CLINICAL HISTORY: Dyspnea. FINDINGS: An AP, portable, upright chest radiograph is compared to study dated 12/19/2020 and correlated with chest CT dated 12/06/2019. The heart is top normal for projection. Enlargement of the central pulmonary arteries is unchanged and suggests pulmonary artery hypertension. Advanced emphysema with changes of chronic interstitial lung disease are similar to previous. There is bibasilar scarring/atelectasis. No airspace consolidation typical for pneumonia or large pleural effusion is identified. No pneumothorax is seen. The skeletal structures are osteopenic. The bony thorax is grossly intact. IMPRESSION: 1. No acute cardiopulmonary abnormality. 2. Findings of emphysema with superimposed chronic interstitial lung disease are similar to previous. ACT 112: Negative or not required by law. Electronically signed by: Luciano Prieto M.D. 05/09/2021 1:25 PM Medications Administered Medication List Discontinued Medications Albuterol (Albut/Ipratrop 3mg/0.5mg Neb 3 Ml Vial) 3 ml NEB NOW STA Stop: 05/09/21 14:33 Last Admin: 05/09/21 14:50 Dose: 3 ml Documented by: [id number] Sodium Chloride (Nss) 500 mls @ 999 mls/hr IV .Q31M ONE Stop: 05/09/21 15:19 Last Infusion: 05/09/21 15:57 Dose: 0 mls/hr Documented by: [id number] Admin: 05/09/21 15:03 Dose: 999 mls/hr Documented by: [id number] Methylprednisolone (Methylprednisolone 125 Mg/2 Ml Vial) 125 mg IV NOW STA Stop: 05/09/21 14:33 Last Admin: 05/09/21 15:02 Dose: 125 mg Documented by: [id number] COVID-19 Results Results COVID-19 Adm Lab Results: RBC 3.44 M/uL (4.7-6.1) L 05/14/21 WBC 9.09 K/uL (4.8-10.8) 05/14/21 Hgb 10.4 g/dL (14.0-18.0) L 05/14/21 Hct 32.8 % (42-52) L 05/14/21 Plt Count 108 K/uL (130-400) L 05/14/21 Neutrophils (%) (Auto) 79.9 % 05/12/21 Lymphocytes (%) (Auto) 10.7 % 05/12/21 Monocytes # (Auto) 0.75 K/uL (0.11-0.59) H 05/12/21 Eosinophils # (Auto) 0.00 K/uL (0-0.5) 05/12/21 Immature Granulocyte % (Auto) 0.4 % 05/12/21 Neutrophils # (Auto) 6.62 K/uL (1.4-6.5) H 05/12/21 Lymphocytes # (Auto) 0.89 K/uL (1.2-3.4) L 05/12/21 Monocytes # (Auto) 0.75 K/uL (0.11-0.59) H 05/12/21 Eosinophils # (Auto) 0.00 K/uL (0-0.5) 05/12/21 Basophils # (Auto) 0.00 K/uL (0-0.2) 05/12/21 Immature Granulocyte # (Auto) 0.03 K/uL (0.00-0.02) H 05/12/21 Na 139 mmol/L (136-145) 05/14/21 K 3.9 mmol/L (3.5-5.1) 05/14/21 Cl 97 mmol/L (98-107) L 05/14/21 CO2 37 mmol/L (21-32) H 05/14/21 Anion Gap 5.0 (3-11) 05/14/21 BUN 20 mg/dl (7-18) H 05/14/21 Creatinine 0.94 mg/dl (0.6-1.4) 05/15/21 BUN/Creatinine Ratio 21.7 (10-20) H 05/14/21 Glucose Level 91 mg/dl (70-99) 05/14/21 Ca 8.5 mg/dl (8.5-10.1) 05/14/21 Phosphorus Level 3.5 mg/dl (2.5-4.9) 05/12/21 Total Bilirubin 0.2 mg/dl (0.2-1) 05/11/21 AST/SGOT 16 U/L (15-37) 05/11/21 ALT/SGPT 22 U/L (12-78) 05/11/21 Alkaline Phosphatase 65 U/L (45-117) 05/11/21 Total Protein 6.5 gm/dl (6.4-8.2) 05/11/21 Albumin 3.1 gm/dl (3.4-5.0) L 05/11/21 Globulin 3.4 gm/dl (2.5-4.0) 05/11/21 Albumin/Globulin Ratio 0.9 (0.9-2) 05/11/21 Troponin I < 0.015 ng/ml (0-0.045) 05/11/21 Procalcitonin < 0.05 ng/ml (0-0.5) 05/09/21 PTT 24.0 Seconds (21.0-31.0) 05/11/21 SARS-CoV-2, RNA, NAAT NEGATIVE (NEGATIVE) 05/09/21 ABG pH 7.37 (7.35-7.45) 05/09/21 ABG pCO2 71 mmHg (35-46) H 05/09/21 ABG pO2 80 mmHg (80-95) 05/09/21 ABG HCO3 40 mmol/L (19-24) H 05/09/21 ABG O2 Saturation 95.0 % (90-95) 05/09/21 ABG Base Excess 11.9 mEq/L (-9-1.8) H 05/09/21 Chest X-Ray 05/09/21 Code Status & VTE Plan Code Status FULL CODE VTE Prophylaxis Plan VTE Prophylaxis will be ordered: Yes Supervising Physician Co-Signing Physician Notes Pt seen and examined by me, care coordinated with Beatriz Bautista PA-C, pls refer to her note above for further detail. Pt is a 71 yo M w/ severe COPD on chronic 6 L of oxygen (follows w/ [facility] pulmonary medicine), cirrhosis, HTN, PTSD, depression with anxiety, history of tobacco abuse, anemia who presents w/ worsening shortness of breath and O2 desaturation w/ ambulation. He has been involved w/pulmonary rehab for the past 3 to 4 weeks 2 times a week. Per pulmonary rehab they felt pt had an exacerbation and recommended he be seen in ER due to history of allergy to oral prednisone. He received 125 mg IV Solu-Medrol, albuterol nebulizer treatment and his symptoms did mildly improve. Chest x-ray was negative for acute abnormality. Currently laying in bed in NAD, on 6L of O2 reading on his iPad. He is awake and able to converse without difficulty. He is answering questions appropriately. Lung sounds are decreased, no wheezing, rhonchi noted. Heart sounds regular. Abdomen soft, nontender, nondistended. No LE edema. Moves extremities. Skin is warm, dry. Cont. current treatment w/ solumedrol and nebs. Obtain ABG, may need bipap ( however pt reports he is not interested/ willing to use one). If not improved, consider pulmonary consultation. Dangelo Moreno MD
[2021-05-09 16:39] LABS: Allen Test Pos (Pos); Base Excess ABG 11.9 mEq/L (-9-1.8); HCO3 ABG 40 mmol/L (19-24); PCO2 ABG 71 mmHg (35-46); PO2 ABG 80 mmHg (80-95); pH ABG 7.37 (7.35-7.45)
[2021-05-09] MEDS ORDERED: MAGNESIUM HYDROXIDE SUSP 30 ML UDC PO PRN (18:29)
[2021-05-09] MEDS ORDERED: POLYETHYLENE (MIRALAX) 17 GM PACK PO PRN (18:29)
[2021-05-09] MEDS ORDERED: ONDANSETRON INJ 2 MG/ML 2 ML VIAL IV PRN (18:29)
[2021-05-09] MEDS ORDERED: ACETAMINOPHEN 325 MG TAB PO PRN (18:29)
[2021-05-09] MEDS ORDERED: ALUMINUM/MAGNESIUM SUSP 30 ML UDC PO PRN (18:29)
[2021-05-09] MEDS ORDERED: CETIRIZINE HCL 10 MG TABLET PO PRN (18:29)
[2021-05-09] MEDS ORDERED: ALBUT/IPRATROP 3MG/0.5MG NEB 3 ML VIAL NEB PRN (19:28)
[2021-05-09] MEDS: ALBUT/IPRATROP 3MG/0.5MG NEB 3 ML VIAL NEB SCH (19:46)
[2021-05-09] MEDS: UMECLIDINIUM BROMIDE 62.5MCG/BLISTER 7 PUFFS/INHALER INH SCH (23:18)
[2021-05-09] MEDS: FLUTICASONE/VILANTEROL 200/25MCG 14 PUFFS/INHALER INH SCH (23:19)
[2021-05-09] MEDS: guaiFENesin 600 MG TABCR PO SCH (23:30)
[2021-05-09] MEDS: busPIRone 5 MG TAB PO SCH (23:30)
[2021-05-09] MEDS: traZODone HCL 50 MG TAB PO SCH (23:31)
[2021-05-09] MEDS: SERTRALINE HCL 100 MG TABLET PO SCH (23:31)
[2021-05-09] MEDS: PANTOprazole 40 MG TAB PO SCH (23:32)
[2021-05-09] MEDS: ENOXAPARIN INJ 40 MG/0.4 ML SYR SQ SCH (23:34)
[2021-05-10] MEDS ORDERED: MoRPHine SULFATE 2 MG/ML CARP IV STA (04:55)
[2021-05-10] MEDS: ALBUT/IPRATROP 3MG/0.5MG NEB 3 ML VIAL NEB SCH ×4 (07:48→20:24)
[2021-05-10 08:14] LABS: Mean Corpuscular Hemoglobin 30.6 pg (25-34); Mean Corpuscular Hgb Conc 31.4 g/dL (32-36); Mean Corpuscular Volume 97.2 fL (80-100); RDW Coefficient of Variation 13.4 % (11.5-14.5); RDW Standard Deviation 48.1 fL (36.4-46.3); White Blood Count 7.12 K/uL (4.8-10.8)
[2021-05-10] MEDS: PANTOprazole 40 MG TAB PO SCH ×2 (08:16→21:00)
[2021-05-10] MEDS: dilTIAZem HCL 240 MG CAPCR PO SCH (08:16)
[2021-05-10] MEDS: guaiFENesin 600 MG TABCR PO SCH ×2 (08:16→21:00)
[2021-05-10] MEDS: CHOLECALCIFEROL 1,000 UNITS 25 MCG TAB PO SCH (08:17)
[2021-05-10 08:19] LABS: Base Excess VBG 12.9 mEq/L; Oxygen Saturation VBG 77.8 %; pH VBG 7.42 (7.36-7.41)
[2021-05-10 08:35] LABS: Immature Granulocytes # (auto) 0.01 K/uL (0.00-0.02); Immature Granulocytes % (auto) 0.1 %; Lymphocytes # (auto) 0.68 K/uL (1.2-3.4); Lymphocytes % (auto) 9.6 %; Mean Platelet Volume 10.3 fL (7.4-10.4); Monocytes # (auto) 0.42 K/uL (0.11-0.59); Monocytes % (auto) 5.9 %; Neutrophils # (auto) 6.01 K/uL (1.4-6.5); Neutrophils % (auto) 84.4 %; Platelet Count 95 K/uL (130-400); Platelet Estimate Decreased (Normal)
[2021-05-10 08:58] LABS: BUN Creatinine Ratio 14.2 (10-20); Blood Urea Nitrogen 14 mg/dl (7-18); Carbon Dioxide 36 mmol/L (21-32); Chloride 97 mmol/L (98-107); Creatinine Clr Calc Pharmacy 70.7 ml/min; Est GFR (African American) 88.4 ml/min; Est GFR (Non-African American) 76.3 ml/min; Glucose 116 mg/dl (70-99); Magnesium 2.2 mg/dl (1.8-2.4); Potassium 4.5 mmol/L (3.5-5.1); Sodium 138 mmol/L (136-145); Troponin I < 0.015 ng/ml (0-0.045)
[2021-05-10] MEDS ORDERED: AZITHROMYCIN 250 MG TAB PO SCH (09:00)
[2021-05-10] MEDS: methylPREDNISolone 30 MG in SYRINGE 0 ML IV SCH ×3 (09:39→20:59)
[2021-05-10] MEDS: DICLOFENAC SOD 1% GEL 100 GM TUBE EXT SCH ×2 (13:54→21:00)
--- NOTE | 2021-05-10 14:07 | Electrocardiogram Report ---
Test Reason : Blood Pressure : / mmHG Vent. Rate : 076 BPM Atrial Rate : 076 BPM P-R Int : 170 ms QRS Dur : 074 ms QT Int : 396 ms P-R-T Axes : 051 -07 060 degrees QTc Int : 445 ms Normal sinus rhythm Normal ECG When compared with ECG of 09-MAY-2021 13:13, No significant change was found Confirmed by Peter Mariano ([id number]) on 05/10/2021 2:07:18 PM Referred By: REFERRED SELF Confirmed By:Tong Mariano
[2021-05-10] MEDS: traMADol HCL 50 MG TABLET PO PRN ×2 (15:37→22:42)
--- NOTE | 2021-05-10 17:24 | Pulmonary Consultation ---
Date of Consultation May 10, 2021 Assessment & Plan (1) COPD exacerbation: (2) Acute on chronic respiratory failure with hypoxia and hypercapnia: Impression: 71-year-old male with advanced COPD and chronic hypoxemic respiratory failure requiring 6 L at baseline. He does not appear far off from his baseline oxygen requirement. Blood gas demonstrated compensated hypercarbic respiratory failure. Again this does not appear far off from the patient's baseline. He is not coughing and expectorating phlegm and is not particularly bronchospastic. Unfortunately it appears that the patient has advanced/end- stage emphysema. Recommendations: 1. COPD: The patient does not have clear evidence of an exacerbation currently as he is not coughing, expectorating phlegm, or significantly wheezing. He is on Solu-Medrol 30 mg 3 times a day currently which seems reasonable to continue for now but would recommend rapidly transitioning to a 5-day prednisone burst. He is currently on Breo and Incruse which should be adequate as well as duo nebs on an as-needed basis. 2. There is a question about oral medications. Given his frequent exacerbations, could consider the addition of chronic azithromycin therapy 250 mg 3 times a week or potential Daliresp however these medications Have only been shown to decrease exacerbations and have no role in the acute management of chronic obstructive pulmonary disease. Could consider theophylline however it has a fairly narrow therapeutic index and I am unclear if it would offer the patient clinical benefit at this point in time. 3. Hypercarbic respiratory failure: Blood gas demonstrates fairly good compensation currently. He has been ordered CPAP/BiPAP nightly. We will follow up with his response. Could consider outpatient AVAPS for chronic hypercarbic respiratory failure. 4. Patient is not a candidate for other advanced therapies including a lung transplant. Could consider referral to a tertiary center to see whether or not the patient was a candidate for endobronchial valves or other potential interventions. These are not available here. 5. Unfortunately it appears that the patient is close to his poor baseline status. His oxygen requirement is at his baseline and he does not report increased wheezing or sputum production. He may be eligible to dismiss from the hospital in short order with [facility] Feel free to contact us with additional questions. Will reassess tomorrow History of Present Illness Attending Physician: Fidel Reilly MD History of Present Illness Asked by hospitalist to assist in evaluation management of this patient admitted with obstructive lung disease. History is obtained from reviewed electronic medical record and interview the patient at bedside. Patient is a 71-year-old male with a history of chronic hypoxemic respiratory failure on 6 L of oxygen chronically. He is [facility] through [facility] and gets most of his care through them. He has been undergoing pulmonary rehab and was referred to the emergency room due to possible exacerbation. Patient has been treated with azithromycin and Solu-Medrol. He states that his admitting provider told him that there was a pill that would make him not require supplemental oxygen. He does report cough but no significant wheezing. He has been maintained on Spiriva and Symbicort in the outpatient setting. He states that he is admitted about 3 times a year for respiratory difficulties. We do not have his PFTs available to review. He denies fevers chills night sweats or other constitutional symptoms. He states he cannot go home until he is able to walk in the hallway without his oxygen level dropping. Allergies Allergy/AdvReac Type Severity Reaction Status Date / Time bee venom protein (honey bee) Allergy Severe ANAPHYLAXIS Verified 05/09/21 15:48 amoxicillin Allergy Intermediate FACIAL Verified 05/09/21 15:48 SWELLING (EYES SWELLED SHUT) clavulanic acid Allergy Intermediate FACIAL Verified 05/09/21 15:48 SWELLING (EYES SWELLED SHUT) pneumococcal vaccine Allergy Intermediate SWELLING Verified 05/09/21 15:48 Olbhdcf-QDP-TaN Reductase Allergy Intermediate CPK'S GO Verified 05/09/21 15:48 Inhibitor THROUGH [Pwgipft-Jxj-Ejw Reductase ROOF Inhibitor] prednisone AdvReac Intermediate confusion Verified 05/09/21 15:48 and agitation Home Medications Medication Instructions Recorded Confirmed Type buspirone 5 mg tablet 5 mg PO QPM 04/08/18 05/09/21 History cetirizine 10 mg tablet 10 mg PO DAILY PRN 04/08/18 05/09/21 History omeprazole 20 mg capsule,delayed 20 mg PO BID 04/08/18 05/09/21 History release sertraline 100 mg tablet 200 mg PO HS 04/08/18 05/09/21 History tiotropium bromide 18 mcg capsule 1 cap INHALATION QPM 04/08/18 05/09/21 History with inhalation device (Spiriva with HandiHaler) trazodone 150 mg tablet 150 mg PO HS 04/08/18 05/09/21 History albuterol sulfate 2.5 mg INHALATION QID PRN 07/04/18 05/09/21 History albuterol sulfate 90 mcg/actuation 2 puff INHALATION Q6H PRN 07/04/18 05/09/21 History aerosol inhaler budesonide-formoterol HFA 160 2 puff INHALATION BID 08/22/18 05/09/21 History mcg-4.5 mcg/actuation aerosol inhaler (Symbicort) epinephrine 0.3 mg/0.3 mL 0.3 mg IM DIRECTED PRN 08/22/18 05/09/21 History injection, auto-injector (EpiPen) guaifenesin 200 mg tablet 400 mg PO BID 08/22/18 05/09/21 History cholecalciferol (vitamin D3) 25 1,000 unit PO QAM 08/19/19 05/09/21 History mcg (1,000 unit) capsule (Vitamin D3) cyanocobalamin (vitamin B-12) 1,000 mcg PO 2XWK 12/19/20 05/09/21 History 1,000 mcg tablet (Vitamin B-12) diltiazem HCl 240 mg 240 mg PO QAM 12/19/20 05/09/21 History capsule,extended release 24 hr, controlled Patient History Medical History Anemia COPD (chronic obstructive pulmonary disease) with emphysema Depression GERD (gastroesophageal reflux disease) Hearing deficit [place] BRUNO 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 [place] exposure History of COVID-05/2020 - hospitalized at [facility] - sob, cough, generalized weakness --> pneumonia; still requiring more supplemental oxygen since having Covid (currently on 6 lpm cont home o2, prior to covid was only on 4 lpm) History of kidney stones History of tobacco abuse HTN (hypertension) On home O2 cont @ 6 lpm Osteoarthritis PTSD (post-traumatic stress disorder) Pulmonary nodules Thrombocytopenia Surgical History Dilatation of ureter H/O hernia repair History of appendectomy History of cardiac cath x 2 - most recent [place] 2010 - no stents; also cath years prior at [facility] and no stents History of colonoscopy History of extraction of renal calculus History of tonsillectomy Loss of teeth due to extraction S/P arthroscopic surgery of right knee Family History Mother Colon cancer Father FH: kidney cancer Other Cancer Social History Smoking Status: Former smoker Tobacco Type: Cigarettes Cigarettes Per Day: 40 pack year hx; Second Hand Exposure: No; Do You Dip or Chew Tobacco: No; Hx Alcohol Use: No Hx Substance Use: No Preferred Language: Croatian Communication Ability: Effective Wood Router Hand Required: No Beliefs That Will Affect Care: None marital status: Current Living Situation: Spouse Current Living Situation Comment: lives with spouse 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 Feels Safe at Home: Yes Safety Concerns: Feels Safe At This Time Assistive Devices: Oxygen - Continuous Review of Systems Review of Systems: Please refer to admission H&P Physical Exam Physical Exam: Constitutional: Alert, male, chronically ill-appearing, vitals as above, NAD, sitting up in bed, pleasant, conversing easily Head: Normocephalic, Atraumatic Eyes: PERRL, conjunctivae normal, anicteric sclerae ENMT: external ear and nose normal, oropharynx normal Neck: trachea midline, no thyromegaly normal visual inspection Respiratory: On 6 L O2 via NC, decreased breath sounds throughout, diminished aeration, respiratory effort, lungs clear to auscultation, no wheeze, rales, rhonchi. Normal insp/exp effort, no accessory muscle use Cardiovascular: RRR, no murmur, no edema Vessels: no JVD or carotid bruit Chest: normal inspection of chest Abdomen: normal bowel sounds, soft, nontender, Musculoskeletal: no cyanosis or clubbing, extremities motor strength 5/5 Skin: no rashes, warm and dry normal turgor Neurologic: PERRL, EOMI, accommodation nl, no face palsy, no dysarthria CN's II-XI intact bilaterally and moves all extremities Psychiatric: A+Ox3, euthymic affect Lymphatic: no cervical or axillary lymphadenopathy : deferred Results & Data Results & Data ([facility]) Vital Signs (Past 12 Hours) Vital Signs Temp Pulse Pulse Resp BP Pulse Ox 05/10/21 15:53 84 05/10/21 15:18 78 18 93 05/10/21 15:06 37.0 C 85 18 103/62 93 05/10/21 11:32 75 18 94 05/10/21 11:09 36.8 C 59 L 18 136/79 99 05/10/21 08:15 65 05/10/21 07:50 76 18 92 05/10/21 07:29 36.8 C 64 18 136/71 91 Laboratory Results 05/10/21 08:02 05/10/21 08:02 05/09/21 05/09/21 05/10/21 14:45 16:23 08:02 ABG pH 7.37 ABG pCO2 71 H ABG pO2 80 ABG HCO3 40 H ABG O2 Saturation 95.0 ABG Base Excess 11.9 H VBG pH 7.33 L 7.42 H VBG pCO2 81 H 63 H VBG pO2 54 43 VBG HCO3 42 40 VBG O2 Saturation 88.0 77.8 VBG Base Excess 12.4 12.9 Diagnostic Findings X-ray from the emergency room demonstrated no acute infiltrate. Hyperinflation with emphysematous changes was identified. PG Care Time/CCT Total # of Minutes Spent Total Time Spent with Patient: Total time spent is greater than 50% in coordination of care (as documented) at patient's floor/unit and/or counseling patient: Coding Level of Care Code 28580 Initial Inpt Care Lvl 3 Diagnoses COPD exacerbation J44.1 Acute on chronic respiratory failure with hypoxia and hypercapnia J96.21; J96.22
--- NOTE | 2021-05-10 17:32 | Hospitalist Progress Note ---
Date of Service May 10, 2021 Assessment & Plan (1) Acute on chronic respiratory failure with hypoxia and hypercapnia: (2) COPD exacerbation: (3) HTN (hypertension): (4) PTSD (post-traumatic stress disorder): Plan: 71-year-old male who has significant past medical history of severe COPD on chronic 6 L of oxygen, Covid May last year, cirrhosis, HTN, PTSD, depression with anxiety, history of tobacco abuse, anemia who presents to ED 05/09 secondary to worsening shortness of breath times several weeks. He elicits that he has been following pulmonary rehab for the past 3 to 4 weeks 2 times a week. Is being managed for the following: Acute on Chronic Respiratory failure with hypoxia and hypercapnia COPD Exac admitted to [facility] c/w IV solumedrol 30mg TID Azithromycin 500mg po x 3 days duoneb QID and q2h prn incentive spirometry, flutter valve, Mucinex, Symbicort, Spiriva continue supplemental oxygen, patient at baseline oxygen while at rest, desaturates/feels increased shortness of breath with ambulation. Pt reports cough frequency at baseline with scant whitish occasional mucus, no fever, no wheezing. BiPAP at bedtime and as needed. Follow OR pulmonology per pt, patient requested pulmonology see him while inpatient. consulted Pulm, await further recs HTN bp stable continue diltiazem Depression with anxiety/PTSD continue zoloft, buspar and trazodone mood stable DVT ppx: SQ Lovenox Dispo:[facility] PCP: Valencia Patel PA-C FULL CODE Admission and Anticipated Discharge Date Admission Date: May 09, 2021 Subjective Patient was lying in bed, on 6 L nasal cannula oxygen, NAD, reports an episode of sudden onset sharp pinpointed chest pain with no radiation overnight. Troponin x3 and EKG WNL. Patient's pain was reproducible at bedside exam. Pain is constant and has not abated. Will give a trial of diclofenac gel. Patient is eating and moving bowels okay. Patient denies headache/di zziness/chills/chest pain/palpitation/other review of symptoms. Physical Exam Physical Exam: GENERAL: Alert and oriented x3. NAD, on 6L HEENT: No pallor, no icterus. Pupils equal, round and reactive to light. Oral mucosa moist. NECK: No JVD, no neck masses. HEART: S1 and S2 heard. Regular rate and rhythm. No murmur, no gallop. RESPIRATORY SYSTEM: Normal AP diameter. No accessory muscle use. No wheezing, no crackles. Decreased breath sounds bilaterally. ABDOMEN: Soft, bowel sounds present, nontender, no distention. CENTRAL NERVOUS SYSTEM: Alert and oriented x3. No facial droop. Speech is clear. Obeys simple commands. Moves extremities. EXTREMITIES: No edema, no erythema seen. Results & Data Results & Data ([facility]) Vital Signs (Past 12 Hours) Vital Signs Temp Pulse Pulse Resp BP Pulse Ox 05/10/21 15:53 84 05/10/21 15:18 78 18 93 05/10/21 15:06 37.0 C 85 18 103/62 93 05/10/21 11:32 75 18 94 05/10/21 11:09 36.8 C 59 L 18 136/79 99 05/10/21 08:15 65 05/10/21 07:50 76 18 92 05/10/21 07:29 36.8 C 64 18 136/71 91
[2021-05-10] MEDS: UMECLIDINIUM BROMIDE 62.5MCG/BLISTER 7 PUFFS/INHALER INH SCH (20:58)
[2021-05-10] MEDS: FLUTICASONE/VILANTEROL 200/25MCG 14 PUFFS/INHALER INH SCH (20:58)
[2021-05-10] MEDS: SERTRALINE HCL 100 MG TABLET PO SCH (20:59)
[2021-05-10] MEDS: busPIRone 5 MG TAB PO SCH (21:00)
[2021-05-10] MEDS: ENOXAPARIN INJ 40 MG/0.4 ML SYR SQ SCH (22:42)
[2021-05-10] MEDS: traZODone HCL 50 MG TAB PO SCH (22:43)
[2021-05-11] MEDS ORDERED: NITROGLYCERIN SL 0.4 MG/TAB TAB SL STA (02:54)
[2021-05-11] MEDS ORDERED: traMADol HCL 50 MG TABLET PO STA (03:09)
[2021-05-11 03:25] LABS: Hematocrit (blood only) 33.7 % (42-52); Hemoglobin 10.8 g/dL (14.0-18.0); Immature Granulocytes # (auto) 0.03 K/uL (0.00-0.02); Immature Granulocytes % (auto) 0.3 %; Lymphocytes # (auto) 0.47 K/uL (1.2-3.4); Lymphocytes % (auto) 5.4 %; Mean Corpuscular Hemoglobin 30.8 pg (25-34); Mean Platelet Volume 9.5 fL (7.4-10.4); Monocytes # (auto) 0.36 K/uL (0.11-0.59); Monocytes % (auto) 4.1 %; Neutrophils # (auto) 7.83 K/uL (1.4-6.5); Neutrophils % (auto) 90.2 %; Platelet Count 108 K/uL (130-400); RDW Coefficient of Variation 13.7 % (11.5-14.5); RDW Standard Deviation 48.2 fL (36.4-46.3); Red Blood Count 3.51 M/uL (4.7-6.1); White Blood Count 8.69 K/uL (4.8-10.8)
[2021-05-11 03:46] LABS: Partial Thromboplastin Ratio 0.9
[2021-05-11 03:49] LABS: Alanine Aminotransferase 22 U/L (12-78); Albumin Level 3.1 gm/dl (3.4-5.0); Aspartate Aminotransferase 16 U/L (15-37); BUN Creatinine Ratio 14.7 (10-20); Blood Urea Nitrogen 17 mg/dl (7-18); Calcium 9.4 mg/dl (8.5-10.1); Carbon Dioxide 37 mmol/L (21-32); Chloride 96 mmol/L (98-107); Creatinine Clr Calc Pharmacy 61.9 ml/min; Est GFR (African American) 75.4 ml/min; Glucose 190 mg/dl (70-99); Lipase 74 U/L (73-393); Magnesium 2.3 mg/dl (1.8-2.4); Potassium 4.2 mmol/L (3.5-5.1); Sodium 135 mmol/L (136-145)
[2021-05-11 04:01] LABS: Albumin Globulin Ratio 0.9 (0.9-2); Alkaline Phosphatase 65 U/L (45-117); Bilirubin,Total 0.2 mg/dl (0.2-1); Globulin 3.4 gm/dl (2.5-4.0); Phosphorus 2.4 mg/dl (2.5-4.9); Total Protein 6.5 gm/dl (6.4-8.2); Troponin I < 0.015 ng/ml (0-0.045)
--- NOTE | 2021-05-11 04:31 | Communication Note ---
Date of Service: May 11, 2021 2:48 AM Patient complaining of chest pain described as somebody stabbing/sitting on his chest as per RN. Happened last night as well as per RN. SBP 140s EKG as per my interpretation : Rate 85, NSR, normal axis, no ischemia Troponin negative Some relief of of chest pain with nitroglycerin as per RN. AP Chest pain possible ACS given relief with nitroglycerin Aspirin for CAD prevention Follow troponin Check TTE May benefit from Cardiology input Will relay to AM provider.
[2021-05-11] MEDS ORDERED: ASPIRIN 81 MG ECTAB PO ONE (04:45)
[2021-05-11] MEDS: ALBUT/IPRATROP 3MG/0.5MG NEB 3 ML VIAL NEB SCH ×4 (07:59→20:06)
[2021-05-11] MEDS: traMADol HCL 50 MG TABLET PO PRN ×2 (08:37→21:03)
[2021-05-11] MEDS: guaiFENesin 600 MG TABCR PO SCH ×2 (08:38→20:51)
[2021-05-11] MEDS: dilTIAZem HCL 240 MG CAPCR PO SCH (08:38)
[2021-05-11] MEDS: CHOLECALCIFEROL 1,000 UNITS 25 MCG TAB PO SCH (08:38)
[2021-05-11] MEDS: PANTOprazole 40 MG TAB PO SCH ×2 (08:38→20:51)
[2021-05-11] MEDS: methylPREDNISolone 30 MG in SYRINGE 0 ML IV SCH ×2 (08:38→14:57)
[2021-05-11] MEDS: DICLOFENAC SOD 1% GEL 100 GM TUBE EXT SCH ×3 (08:39→20:48)
--- NOTE | 2021-05-11 08:50 | Electrocardiogram Report ---
Test Reason : Blood Pressure : / mmHG Vent. Rate : 082 BPM Atrial Rate : 082 BPM P-R Int : 160 ms QRS Dur : 074 ms QT Int : 384 ms P-R-T Axes : 057 -05 059 degrees QTc Int : 448 ms Normal sinus rhythm Normal ECG When compared with ECG of 10-MAY-2021 04:43, No significant change was found Confirmed by Peter Mariano ([id number]) on 05/11/2021 8:50:07 AM Referred By: REFERRED SELF Confirmed By:Tong Mariano
[2021-05-11] MEDS ORDERED: AZITHROMYCIN 250 MG TAB PO SCH (09:00)
--- NOTE | 2021-05-11 10:18 | Cardiology Consultation ---
Date of Consultation May 11, 2021 Assessment & Plan (1) Acute on chronic respiratory failure with hypoxia: (2) Chest pain: Chest discomfort noted at rest, without acute EKG changes, serial cardiac enzyme enzymes negative. Assessment does have risk factors for underlying coronary heart disease. Echocardiogram reassuring. Given his history of chief complaint of dyspnea on exertion in the setting of chronic COPD and oxygen supplementation, and recent stasis, with patient description of being confined to his chair due to severe dyspnea recently, I think would be prudent to proceed with a CT angiogram to exclude pulmonary embolism. At present I am not inclined to start him on aspirin for unfractionated heparin especially given his history of chronic normocytic anemia, hemoglobin 10.8 in the setting of chronic hypoxia. He has a chart history of intolerance to statin medications due to elevated CPK levels. As noted we will start with CT angiogram, in terms of work-up for angina, in the absence of evidence of acute coronary syndrome, likely ongoing observation would be the best approach. History of Present Illness Attending Physician: Fidel Reilly MD History of Present Illness David Cantu is a 71 year old male seen in cardiology consultation per the request of Dr Reilly for the evaluation of chest pain. The patient follows with the [facility] clinic in [place], and has not been seen by cardiology at this center, or within the [facility] system in the past. He does recall having perhaps been seen at [facility] and having either a stress test or cardiac catheterization dating back to the 1980s. He quit cigarette smoking 6 years ago, and has a history of severe COPD and is on chronic supplemental oxygen, 6 L/min, and has a history of cirrhosis, hypertension, posttraumatic stress disorder. He was admitted via the emergency room on 05/09/2021 with chief complaint of worsening shortness of breath with exertion. He describes that he becomes extremely fatigued with minimal exertion such as walking from his chair in his home to his bathroom. He has been obtaining drive-through food because he gets dyspneic when he tries to go into stores. He had been assessed by the hospitalist on duty last evening for an episode of chest discomfort. He describes it as a sharp pain that was just left of his sternum, and then radiated throughout his left pectoral area. The patient received a dose of nitroglycerin and he describes to me that it only partially relieved the discomfort. He describes ongoing vague discomfort, but he is in no distress. Serial EKG tracings have been normal. 5 troponin I levels this admission have been undetectable the most recent of which was obtained this morning at 7:55 AM. He notes recent similar discomfort at home that typically occurs when he is sitting or resting, he does not notice when he is walking. Allergies Allergy/AdvReac Type Severity Reaction Status Date / Time bee venom protein (honey bee) Allergy Severe ANAPHYLAXIS Verified 05/09/21 15:48 amoxicillin Allergy Intermediate FACIAL Verified 05/09/21 15:48 SWELLING (EYES SWELLED SHUT) clavulanic acid Allergy Intermediate FACIAL Verified 05/09/21 15:48 SWELLING (EYES SWELLED SHUT) pneumococcal vaccine Allergy Intermediate SWELLING Verified 05/09/21 15:48 Kehvxqf-QUE-GcD Reductase Allergy Intermediate CPK'S GO Verified 05/09/21 15:48 Inhibitor THROUGH [Nmzgzam-Qmz-Wbs Reductase ROOF Inhibitor] prednisone AdvReac Intermediate confusion Verified 05/09/21 15:48 and agitation Home Medications Medication Instructions Recorded Confirmed Type buspirone 5 mg tablet 5 mg PO QPM 04/08/18 05/09/21 History cetirizine 10 mg tablet 10 mg PO DAILY PRN 04/08/18 05/09/21 History omeprazole 20 mg capsule,delayed 20 mg PO BID 04/08/18 05/09/21 History release sertraline 100 mg tablet 200 mg PO HS 04/08/18 05/09/21 History tiotropium bromide 18 mcg capsule 1 cap INHALATION QPM 04/08/18 05/09/21 History with inhalation device (Spiriva with HandiHaler) trazodone 150 mg tablet 150 mg PO HS 04/08/18 05/09/21 History albuterol sulfate 2.5 mg INHALATION QID PRN 07/04/18 05/09/21 History albuterol sulfate 90 mcg/actuation 2 puff INHALATION Q6H PRN 07/04/18 05/09/21 History aerosol inhaler budesonide-formoterol HFA 160 2 puff INHALATION BID 08/22/18 05/09/21 History mcg-4.5 mcg/actuation aerosol inhaler (Symbicort) epinephrine 0.3 mg/0.3 mL 0.3 mg IM DIRECTED PRN 08/22/18 05/09/21 History injection, auto-injector (EpiPen) guaifenesin 200 mg tablet 400 mg PO BID 08/22/18 05/09/21 History cholecalciferol (vitamin D3) 25 1,000 unit PO QAM 08/19/19 05/09/21 History mcg (1,000 unit) capsule (Vitamin D3) cyanocobalamin (vitamin B-12) 1,000 mcg PO 2XWK 12/19/20 05/09/21 History 1,000 mcg tablet (Vitamin B-12) diltiazem HCl 240 mg 240 mg PO QAM 12/19/20 05/09/21 History capsule,extended release 24 hr, controlled Patient History Medical History Anemia COPD (chronic obstructive pulmonary disease) with emphysema Depression GERD (gastroesophageal reflux disease) Hearing deficit [place] 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 Leslie exposure History of COVID-19 05/2020 - hospitalized at [facility] - sob, cough, generalized weakness --> pneumonia; still requiring more supplemental oxygen since having Covid (currently on 6 lpm cont home o2, prior to covid was only on 4 lpm) History of kidney stones History of tobacco abuse HTN (hypertension) On home O2 cont @ 6 lpm Osteoarthritis PTSD (post-traumatic stress disorder) Pulmonary nodules Thrombocytopenia Surgical History Dilatation of ureter H/O hernia repair History of appendectomy History of cardiac cath x 2 - most recent NE 2010 - no stents; also cath years prior at [facility] [place] and no stents History of colonoscopy History of extraction of renal calculus History of tonsillectomy Loss of teeth due to extraction S/P arthroscopic surgery of right knee Family History Mother Colon cancer Father FH: kidney cancer Other Cancer Social History Smoking Status: Former smoker Tobacco Type: Cigarettes Cigarettes Per Day: 40 pack year hx; Second Hand Exposure: No; Do You Dip or Chew Tobacco: No; Hx Alcohol Use: No Hx Substance Use: No Preferred Language: Somali Communication Ability: Effective Deck Worker Required: No Beliefs That Will Affect Care: None marital status: Current Living Situation: Spouse Current Living Situation Comment: lives with spouse 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 Feels Safe at Home: Yes Safety Concerns: Feels Safe At This Time Assistive Devices: Oxygen - Continuous Review of Systems Review of Systems: All systems reviewed & are unremarkable except as noted in HPI & below Physical Exam Physical Exam: Temp Pulse Resp BP Pulse Ox 36.7 C 80 17 147/79 H 90 05/11/21 07:25 05/11/21 08:29 05/11/21 08:29 05/11/21 07:25 05/11/21 08:29 Constitutional: WD/WN, vitals as above Respiratory: normal respiratory effort, lungs clear to auscultation Chest (Breasts): normal inspection/palpation of breasts Neurologic: PERRL, EOMI, accommodation nl, no face palsy, no dysarthria Results & Data ([facility]) Vital Signs (Past 12 Hours) Vital Signs Temp Pulse Pulse Resp BP Pulse Ox 05/11/21 08:29 80 17 90 05/11/21 07:48 76 05/11/21 07:25 36.7 C 74 18 147/79 H 93 05/11/21 02:39 36.9 C 78 19 145/71 H 91 05/10/21 22:30 36.8 C 92 H 18 118/67 91 05/10/21 22:19 91 H Laboratory Results Cardiac Enzymes 05/10/21 05/11/21 05/11/21 Range/Units 11:07 03:14 07:55 AST 16 (15-37) U/L Troponin I < 0.015 < 0.015 < 0.015 (0-0.045) ng/ml Coagulation 05/11/21 Range/Units 03:14 APTT 24.0 (21.0-31.0) Seconds CBC 05/11/21 Range/Units 03:14 WBC 8.69 (4.8-10.8) K/uL RBC 3.51 L (4.7-6.1) M/uL Hgb 10.8 L (14.0-18.0) g/dL Hct 33.7 L (42-52) % Plt Count 108 L (130-400) K/uL Neut # (Auto) 7.83 H (1.4-6.5) K/uL Lymph # (Auto) 0.47 L (1.2-3.4) K/uL [place] # (Auto) 0.36 (0.11-0.59) K/uL Eos # (Auto) 0.00 (0-0.5) K/uL Baso # (Auto) 0.00 (0-0.2) K/uL Comprehensive Metabolic Panel 05/11/21 Range/Units 03:14 Sodium 135 L (136-145) mmol/L Potassium 4.2 (3.5-5.1) mmol/L Chloride 96 L (98-107) mmol/L Carbon Dioxide 37 H (21-32) mmol/L BUN 17 (7-18) mg/dl Creatinine 1.13 (0.6-1.4) mg/dl Glucose 190 H (70-99) mg/dl Calcium 9.4 (8.5-10.1) mg/dl AST 16 (15-37) U/L ALT 22 (12-78) U/L Alkaline Phosphatase 65 (45-117) U/L Total Protein 6.5 D (6.4-8.2) gm/dl Albumin 3.1 L (3.4-5.0) gm/dl Intake and Output 05/10/21 05/11/21 05/11/21 22:59 06:59 14:59 Intake Total 300 / 1250 460 / 1250 Output Total 300 / 1750 1050 / 1750 Balance 0 / -500 -590 / -500 Intake: Oral 300 / 1250 460 / 1250 Output: Urine 300 / 1750 1050 / 1750 Other: Weight 86.5 kg Diagnostic Findings EKG performed this morning 05/11/2021 at 2:42 AM revealed normal sinus rhythm 87 bpm, normal EKG Echocardiogram performed this morning and reviewed independently revealed borderline concentric left ventricular hypertrophy, no regional left ventricular wall motion abnormalities, LVEF in the range of 65 to 70%. Mild dilatation of the right ventricle with mild RV hypokinesis noted, unchanged compared to 2019.
[2021-05-11] MEDS ORDERED: OPTIRAY 320 125ml IV ONE (11:04)
--- NOTE | 2021-05-11 11:23 | CT Scan Report ---
CT ANGIOGRAM OF THE CHEST CLINICAL HISTORY: Dyspnea COMPARISON STUDY: Chest CT dated 12/06/2019. Chest x-ray dated 05/09/2021, 05/22/2018, and 01/21/2011. TECHNIQUE: Following the IV administration of 120 cc of Optiray 320, CT angiogram of the chest was pe rformed from the upper abdomen to the thoracic inlet utilizing the pulmonary embolus protocol. Images are reviewed in the axial, sagittal, and coronal planes. 3-D MIPS images are created and assessed. I V contrast was administered without complication. A dose lowering technique was utilized adhering to the principles of ALARA. CT DOSE: 498.37 mGycm FINDINGS: Thyroid: Imaged portions of the thyroid gland are normal in size and attenuation. Thoracic aorta: There is mild atherosclerotic calcification of the thoracic aorta, which is normal in caliber and demonstrates bovine variant arch anatomy. No dissection is seen. Pulmonary vasculature: The pulmonary trunk is dilated, measuring 4.0 cm in diameter. This suggests pu lmonary artery hypertension. There are no filling defects identified in main, lobar, or segmental pul monary branches to suggest pulmonary embolus. Heart: The heart is mildly enlarged and without pericardial effusion. There are scattered coronary ar gerardo calcifications. Lungs and pleural spaces: Advanced emphysematous change is noted. There is no airspace consolidation typical for pneumonia or pleural effusion. The trachea and central airways appear clear. Foci of scar ring/atelectasis are seen throughout both lungs. There are scattered calcified granulomas. Diffuse pe ribronchial thickening is observed. A 5 mm left upper lobe pulmonary nodule is seen on image #133. Th is has been present dating back to 2010 and is of low suspicion. Mediastinum: There is no mediastinal lymphadenopathy. [place]: There are calcified right hilar nodes. No hilar adenopathy is seen. Axillae: There is no axillary lymphadenopathy. Upper abdomen: The catheter granuloma is noted in the spleen. Imaged portions of the liver show mild cirrhotic change Skeletal structures: The skeletal structures are osteopenic. There is a mild chronic superior endplat e compression deformity of T3. Mild spondylotic change is seen throughout the thoracic spine. No lyti c or blastic bony lesions are seen. IMPRESSION: 1. There is no evidence of pulmonary embolus in the main, lobar, or segmental pulmonary arteries. 2. Mild cardiomegaly and advanced emphysema with evidence of pulmonary artery hypertension. 3. There is no airspace consolidation typical for pneumonia or pleural effusion. 4. Diffuse peribronchial thickening suggests bronchitis/reactive airway disease. Clinical correlation will be required. 5. Additional findings as above. ACT 112: Negative or not required by law. Electronically signed by: Luciano Prieto M.D. 05/11/2021 11:22 AM
--- NOTE | 2021-05-11 14:24 | Electrocardiogram Report ---
Test Reason : Blood Pressure : / mmHG Vent. Rate : 087 BPM Atrial Rate : 087 BPM P-R Int : 138 ms QRS Dur : 080 ms QT Int : 372 ms P-R-T Axes : 053 -01 059 degrees QTc Int : 447 ms Normal sinus rhythm Normal ECG When compared with ECG of 10-MAY-2021 09:55, (unconfirmed) No significant change was found Confirmed by Peter Mariano ([id number]) on 05/11/2021 2:24:03 PM Referred By: REFERRED SELF Confirmed By:Tong Mariano
[2021-05-11] MEDS: ISOSORBIDE MONO EXTENDED REL 30 MG TABCR PO SCH (14:56)
[2021-05-11] MEDS: POT PHOSPHATE MONOBASIC W/ SOD TAB PO SCH ×2 (17:14→20:51)
--- NOTE | 2021-05-11 17:15 | Hospitalist Progress Note ---
Date of Service May 11, 2021 Assessment & Plan (1) Acute on chronic respiratory failure with hypoxia and hypercapnia: (2) COPD exacerbation: (3) HTN (hypertension): (4) PTSD (post-traumatic stress disorder): Plan: 71-year-old male who has significant past medical history of severe COPD on chronic 6 L of oxygen, Covid May last year, cirrhosis, HTN, PTSD, depression with anxiety, history of tobacco abuse, anemia who presents to ED 05/09 secondary to worsening shortness of breath times several weeks. He elicits that he has been following pulmonary rehab for the past 3 to 4 weeks 2 times a week. Is being managed for the following: Acute on Chronic Respiratory failure with hypoxia and hypercapnia COPD Exac admitted to [facility] tele Pt reports cough frequency at baseline with scant whitish occasional mucus, no fever, no wheezing. c/w IV solumedrol 30mg TID --> transition to BID --->then PO methylprednisolone from tomorrow [patient reports increased confusion/" going nuts" with prednisone but cannot tolerate methylprednisolone] s/p Azithromycin 500mg po x 3 days duoneb QID and q2h prn incentive spirometry, flutter valve, Mucinex, Symbicort, Spiriva continue supplemental oxygen, patient at baseline oxygen while at rest Pulmonology evaluated the patient while inpatient: Transition to 5-day prednisone burst, agrees with current Breo and Incruse with as needed duo nebs. Consider adding azithromycin 250 mg 3 times a week or potential Daliresp given his poor baseline status. Also could consider outpatient AVAPS for chronic hypercarbic respiratory failure. Patient not a candidate for lung transplant. Patient declining BiPAP use overnight, communicated with RN to see if respiratory can provide different masks that patient can tolerate. Patient ne eds to use BiPAP for improvement in his COPD status. Patient needs to follow-up with his pulmonology as an outpatient, will be started on azithromycin 253 times a week upon discharge, will need to discuss with his outpatient pulmonology regarding AVAPS/other possible interventions upon discharge. Chest Pain Patient complained of chest pain overnight for 2 nights in a row, troponin trends normal, EKG showing no acute ST or T elevation 05/11 ECHO with ejection fraction of 65 to 70% with grade 1 diastolic dysfunction. / CTA chest negative per PE or pneumonia or pleural effusion. Cardiology consulted: Await further recommendation. HTN bp stable continue diltiazem Depression with anxiety/PTSD continue zoloft, buspar and trazodone mood stable DVT ppx: SQ Lovenox Dispo:med tele PCP: Valencia Patel PA-C FULL CODE Disposition: PT/OT evaluation, will transition him to p.o. methylprednisolone tomorrow in preparation for discharge. Should be able to discharge in 1 to 2 days if no new issues arises. Admission and Anticipated Discharge Date Admission Date: May 09, 2021 Subjective Patient was lying in bed, on 6 L nasal cannula oxygen, NAD, overnight reported pressure-like chest pain relieved with nitroglycerin. Troponin x3 and EKG WNL. Echo WNL. No complaint of pain at bedside exam. Cardiology is already on board. Patient is eating and moving bowels okay. Patient denies headache/dizziness/chills/palpitation/other review of symptoms. Per RN, patient has occasions of confusion and hallucination, appeared AOx3/no hallucination at bedside exam. Physical Exam Physical Exam: GENERAL: Alert and oriented x3. NAD, on 6L HEENT: No pallor, no icterus. Pupils equal, round and reactive to light. Oral mucosa moist. NECK: No JVD, no neck masses. HEART: S1 and S2 heard. Regular rate and rhythm. No murmur, no gallop. RESPIRATORY SYSTEM: Normal AP diameter. No accessory muscle use. No wheezing, no crackles. Decreased breath sounds bilaterally -- better compared to yesterday. ABDOMEN: Soft, bowel sounds present, nontender, no distention. CENTRAL NERVOUS SYSTEM: Alert and oriented x3. No facial droop. Speech is clear. Obeys simple commands. Moves extremities. EXTREMITIES: No edema, no erythema seen. Results & Data Results & Data ([facility]) Vital Signs (Past 12 Hours) Vital Signs Temp Pulse Pulse Resp BP Pulse Ox 05/11/21 16:22 75 18 96 05/11/21 15:57 79 05/11/21 15:51 36.7 C 73 18 136/72 90 05/11/21 11:45 36.6 C 75 18 152/78 H 92 05/11/21 11:30 79 18 96 05/11/21 08:29 80 17 90 05/11/21 07:48 76 05/11/21 07:25 36.7 C 74 18 147/79 H 93
[2021-05-11] MEDS: busPIRone 5 MG TAB PO SCH (20:51)
[2021-05-11] MEDS: SERTRALINE HCL 100 MG TABLET PO SCH (20:51)
[2021-05-11] MEDS: traZODone HCL 50 MG TAB PO SCH (20:52)
[2021-05-11] MEDS: UMECLIDINIUM BROMIDE 62.5MCG/BLISTER 7 PUFFS/INHALER INH SCH (20:56)
[2021-05-11] MEDS: FLUTICASONE/VILANTEROL 200/25MCG 14 PUFFS/INHALER INH SCH (20:56)
[2021-05-11] MEDS: ENOXAPARIN INJ 40 MG/0.4 ML SYR SQ SCH (21:04)
--- NOTE | 2021-05-11 22:59 | Pulmonology Progress Note ---
Date of Service May 11, 2021 Assessment & Plan (1) COPD exacerbation: (2) Acute on chronic respiratory failure with hypoxia and hypercapnia: Plan: Impression: 71-year-old male with advanced COPD and chronic hypoxemic respiratory failure requiring 6 L at baseline. He does not appear far off from his baseline oxygen requirement. Blood gas demonstrated compensated hypercarbic respiratory failure. Again this does not appear far off from the patient's baseline. He is not coughing and expectorating phlegm and is not particularly bronchospastic. Unfortunately it appears that the patient has advanced/end- stage emphysema. Recommendations: 1. COPD: The patient does not have clear evidence of an exacerbation currently as he is not coughing, expectorating phlegm, or significantly wheezing. He is on Solu-Medrol 30 mg 3 times a day currently which seems reasonable to continue for now but would recommend rapidly transitioning to a 5-day prednisone burst t omorrow. He is currently on Breo and Incruse which should be adequate as well as duo nebs on an as-needed basis. 2. There is a question about oral medications. Given his frequent exacerbations, could consider the addition of chronic azithromycin therapy 250 mg 3 times a week or potential Daliresp however these medications Have only been shown to decrease exacerbations and have no role in the acute management of chronic obstructive pulmonary disease. Could consider theophylline however it has a fairly narrow therapeutic index and I am unclear if it would offer the patient clinical benefit at this point in time. These typically are prescribed as outpatient. QTC is 447 ms. EKG would have to be monitored if patient was placed on chronic azithromycin therapy. 3. Hypercarbic respiratory failure: Blood gas demonstrates fairly good compensation currently. He has been ordered CPAP/BiPAP nightly. We will follow up with his response. Could consider outpatient AVAPS for chronic hypercarbic respiratory failure. Follow-up with outpatient sleep clinic for CPAP compliance. 4. Patient is not a candidate for other advanced therapies including a lung transplant. Could consider referral to a tertiary center to see whether or not the patient was a candidate for endobronchial valves or other potential interventions. These are not available here. This would need to be completed as an outpatient. 5. Unfortunately it appears that the patient is close to his poor baseline status. His oxygen requirement is at his baseline and he does not report increased wheezing or sputum production. He may be eligible to dismiss from the hospital in short order with [facility] Patient does appear baseline. He can be discharged from a pulmonary perspective and follow-up with the [place] clinic. He is well-established with a position classification manager who visits the clinic on Tuesdays. At this time the pulmonary service will sign off. Please call with any additional questions. Admission and Anticipated Discharge Date Admission Date: May 09, 2021 Subjective Attending: Dr. Abel Patient seen and examined at bedside. He has no improvement. He continues with his chronic respiratory failure requiring 6 L/min via nasal cannula. He reports that he feels like he is at baseline but wants to have further improvement before discharge. No other acute symptoms. Review of Systems Review of Systems: All systems reviewed & are unremarkable except as noted in Subjective Physical Exam Physical Exam: GENERAL : No acute distress EYES: No icterus, gaze conjugate NOSE: No evidence of epistaxis MOUTH: No lesions or candidiasis NECK: Supple LUNGS: Diminished breath sounds throughout. No wheezes. No rales. No rhonchi. Patient continues on 6 L/min via nasal cannula which is his baseline at home. HEART: Regular, rate controlled ABDOMEN: Soft, NT, ND, BS Present EXTREMITIES: No LE edema, pedal pulses intact NEURO: A&OX3 Results & Data Results & Data ([facility]) Vital Signs (Past 12 Hours) Vital Signs Temp Pulse Pulse Resp BP Pulse Ox Pulse Ox 05/11/21 20:08 88 18 94 05/11/21 19:06 36.6 C 83 20 123/66 93 05/11/21 18:00 92 05/11/21 16:22 75 18 96 05/11/21 15:57 79 05/11/21 15:51 36.7 C 73 18 136/72 90 05/11/21 11:45 36.6 C 75 18 152/78 H 92 05/11/21 11:30 79 18 96 Laboratory Results 05/11/21 03:14 05/11/21 03:14 05/09/21 05/09/21 05/10/21 14:45 16:23 08:02 ABG pH 7.37 ABG pCO2 71 H ABG pO2 80 ABG HCO3 40 H ABG O2 Saturation 95.0 ABG Base Excess 11.9 H VBG pH 7.33 L 7.42 H VBG pCO2 81 H 63 H VBG pO2 54 43 VBG HCO3 42 40 VBG O2 Saturation 88.0 77.8 VBG Base Excess 12.4 12.9 Diagnostic Findings Chest CTA 05/11/21 08:56 CT ANGIOGRAM OF THE CHEST CLINICAL HISTORY: Dyspnea COMPARISON STUDY: Chest CT dated 12/06/2019. Chest x-ray dated 05/09/2021, 05/22/2018, and 01/21/2011. TECHNIQUE: Following the IV administration of 120 cc of Optiray 320, CT angiogram of the chest was performed from the upper abdomen to the thoracic inlet utilizing the pulmonary embolus protocol. Images are reviewed in the axial, sagittal, and coronal planes. 3-D MIPS images are created and assessed. IV contrast was administered without complication. A dose lowering technique was utilized adhering to the principles of ALARA. CT DOSE: 498.37 mGycm FINDINGS: Thyroid: Imaged portions of the thyroid gland are normal in size and attenuation. Thoracic aorta: There is mild atherosclerotic calcification of the thoracic aorta, which is normal in caliber and demonstrates bovine variant arch anatomy. No dissection is seen. Pulmonary vasculature: The pulmonary trunk is dilated, measuring 4.0 cm in diameter. This suggests pulmonary artery hypertension. There are no filling defects identified in main, lobar, or segmental pulmonary branches to suggest pulmonary embolus. Heart: The heart is mildly enlarged and without pericardial effusion. There are scattered coronary artery calcifications. Lungs and pleural spaces: Advanced emphysematous change is noted. There is no airspace consolidation typical for pneumonia or pleural effusion. The trachea and central airways appear clear. Foci of scarring/atelectasis are seen throughout both lungs. There are scattered calcified granulomas. Diffuse peribronchial thickening is observed. A 5 mm left upper lobe pulmonary nodule is seen on image #133. This has been present dating back to 2010 and is of low suspicion. Mediastinum: There is no mediastinal lymphadenopathy. Arabella: There are calcified right hilar nodes. No hilar adenopathy is seen. Axillae: There is no axillary lymphadenopathy. Upper abdomen: The catheter granuloma is noted in the spleen. Imaged portions of the liver show mild cirrhotic change Skeletal structures: The skeletal structures are osteopenic. There is a mild chronic superior endplate compression deformity of T3. Mild spondylotic change is seen throughout the thoracic spine. No lytic or blastic bony lesions are seen. IMPRESSION: 1. There is no evidence of pulmonary embolus in the main, lobar, or segmental pulmonary arteries. 2. Mild cardiomegaly and advanced emphysema with evidence of pulmonary artery hypertension. 3. There is no airspace consolidation typical for pneumonia or pleural effusion. 4. Diffuse peribronchial thickening suggests bronchitis/reactive airway disease. Clinical correlation will be required. 5. Additional findings as above. ACT 112: Negative or not required by law. Electronically signed by: Luciano Prieto M.D. 05/11/2021 11:22 AM PG Care Time/CCT Total # of Minutes Spent Total Time Spent with Patient: Total time spent is greater than 50% in coordination of care (as documented) at patient's floor/unit and/or counseling patient: 30 minutes Coding Level of Care Code 06615 Subseq Hosp Care Lvl 2 Diagnoses COPD exacerbation J44.1 Acute on chronic respiratory failure with hypoxia and hypercapnia J96.21; J96.22 Time Spent (min) 30
[2021-05-12] MEDS ORDERED: methylPREDNISolone 30 MG in SYRINGE 0 ML IV SCH (04:00)
[2021-05-12] MEDS: traMADol HCL 50 MG TABLET PO PRN ×3 (04:17→17:18)
[2021-05-12] MEDS: ALBUT/IPRATROP 3MG/0.5MG NEB 3 ML VIAL NEB SCH ×4 (07:16→20:32)
[2021-05-12 08:16] LABS: Hematocrit (blood only) 36.2 % (42-52); Hemoglobin 11.4 g/dL (14.0-18.0); Mean Corpuscular Hemoglobin 30.6 pg (25-34); Mean Corpuscular Hgb Conc 31.5 g/dL (32-36); Mean Corpuscular Volume 97.1 fL (80-100); Mean Platelet Volume 10.4 fL (7.4-10.4); Platelet Count 113 K/uL (130-400); RDW Coefficient of Variation 13.7 % (11.5-14.5); RDW Standard Deviation 48.5 fL (36.4-46.3); Red Blood Count 3.73 M/uL (4.7-6.1); White Blood Count 8.67 K/uL (4.8-10.8)
[2021-05-12] MEDS: POT PHOSPHATE MONOBASIC W/ SOD TAB PO SCH ×4 (08:20→20:58)
[2021-05-12] MEDS: CHOLECALCIFEROL 1,000 UNITS 25 MCG TAB PO SCH (08:20)
[2021-05-12] MEDS: ISOSORBIDE MONO EXTENDED REL 30 MG TABCR PO SCH (08:21)
[2021-05-12] MEDS: dilTIAZem HCL 240 MG CAPCR PO SCH (08:21)
[2021-05-12] MEDS: guaiFENesin 600 MG TABCR PO SCH ×2 (08:22→20:57)
[2021-05-12] MEDS: CYANOCOBALAMIN 500 MCG TABLET (VITAMIN B-12) PO SCH (08:22)
[2021-05-12] MEDS: PANTOprazole 40 MG TAB PO SCH ×2 (08:22→20:57)
[2021-05-12] MEDS: DICLOFENAC SOD 1% GEL 100 GM TUBE EXT SCH ×3 (08:25→20:55)
[2021-05-12 09:02] LABS: BUN Creatinine Ratio 19.4 (10-20); Calcium 9.3 mg/dl (8.5-10.1); Creatinine Clr Calc Pharmacy 71.4 ml/min; Est GFR (African American) 89.5 ml/min; Est GFR (Non-African American) 77.3 ml/min; Potassium 4.4 mmol/L (3.5-5.1)
[2021-05-12 09:15] LABS: Phosphorus 3.5 mg/dl (2.5-4.9)
[2021-05-12] MEDS ORDERED: ISOSORBIDE MONO EXTENDED REL 30 MG TABCR PO ONE (10:09)
--- NOTE | 2021-05-12 10:18 | Cardiology Progress Note ---
Date of Service May 12, 2021 Assessment & Plan (1) Acute on chronic respiratory failure with hypoxia: (2) Chest pain: Plan: Chest discomfort noted at rest, without acute EKG changes, serial Troponin I undetectable x 5 measurements. Assessment does have risk factors for underlying coronary heart disease. Echocardiogram reassuring. CT negative for pulmonary embolism. He has a chart history of intolerance to statin medications due to elevated CPK levels. He is not on aspirin at baseline, perhaps due to anemia (patient unaware of why). Although pt is certainly at high risk for having underlying significant CAD, his symptoms are atypical, favor conservative approach. Increase Imdur to 30 mg, add ASA 81 mg with caution. Continue diltiazem. No beta loraine due to lung disease and bedause HR and BP are already controlled. As noted, intolerant of statin therapy. Admission and Anticipated Discharge Date Admission Date: May 09, 2021 Subjective Pt seen in cardiology follow up of chest discomfort. His was transferred to a different room, now has a window. He notes he believes he is "seeing things that are not there". No respiratory distress. Appears very comfortable. Describes ongoing vague left sided chest discomfort, unchanged with Imdur yesterday or today. Physical Exam Constitutional: WD/WN, vitals as above Respiratory: normal respiratory effort, lungs clear to auscultation Cardiovascular: RRR, no murmur, no edema Neurologic: PERRL, EOMI, accommodation nl, no face palsy, no dysarthria Results & Data ([facility]) Vital Signs (Past 12 Hours) Vital Signs Temp Pulse Pulse Resp BP Pulse Ox 05/12/21 07:58 36.6 C 79 20 129/71 91 05/12/21 07:16 88 22 90 05/12/21 04:10 36.7 C 76 20 131/71 95 05/12/21 04:09 79 05/11/21 23:49 36.7 C 79 20 124/66 95
--- NOTE | 2021-05-12 13:59 | Hospitalist Progress Note ---
Date of Service May 12, 2021 Assessment & Plan (1) Acute on chronic respiratory failure with hypoxia and hypercapnia: (2) COPD exacerbation: (3) HTN (hypertension): (4) PTSD (post-traumatic stress disorder): Plan: 71-year-old male who has significant past medical history of severe COPD on chronic 6 L of oxygen, Covid May last year, cirrhosis, HTN, PTSD, depression with anxiety, history of tobacco abuse, anemia who presents to ED 05/09 secondary to worsening shortness of breath times several weeks. He elicits that he has been following pulmonary rehab for the past 3 to 4 weeks 2 times a week. Is being managed for the following: Acute on Chronic Respiratory failure with hypoxia and hypercapnia COPD Exac admitted to [facility] tele Pt reports cough frequency at baseline with scant whitish occasional mucus, no fever, no wheezing. c/w IV solumedrol 30mg TID --> transition to BID --->then PO methylprednisolone from tomorrow (05/13) for 5 days and stop [patient reports increased confusion/" going nuts" with prednisone but cannot tolerate methylprednisolone] s/p Azithromycin 500mg po x 3 days duoneb QID and q2h prn incentive spirometry, flutter valve, Mucinex, Symbicort, Spiriva continue supplemental oxygen, patient at baseline oxygen while at rest Pulmonology evaluated the patient while inpatient: Transition to 5-day prednisone burst, agrees with current Breo and Incruse with as needed duo nebs. Consider adding azithromycin 250 mg 3 times a week or potential Daliresp given his poor baseline status. Also could consider outpatient AVAPS for chronic hypercarbic respiratory failure. Patient not a candidate for lung transplant. Patient declining BiPAP use overnight - multiple counselling done, Already got different masks that suits him but still not using, discussed about using it tonight. Patient needs to follow-up with his pulmonology as an outpatient Start Azithro 250 mg 3times/week (05/12) and CM made aware for AVAPS upon DC. D/w Pulm regarding AVAPS settings Discussed with patient for palliative care, pt agreeable. Chest Pain Patient complained of chest pain overnight for 2 nights in a row, troponin trends normal, EKG showing no acute ST or T elevation 05/11 ECHO with ejection fraction of 65 to 70% with grade 1 diastolic dysfunction. 12/2 CTA chest negative per PE or pneumonia or pleural effusion. Cardiology consulted: conservative approach, on imdur and ASA 81 mg daily. HTN bp stable continue diltiazem Depression with anxiety/PTSD continue zoloft, buspar and trazodone mood stable DVT ppx: SQ Lovenox Dispo:med tele PCP: Valencia Patel PA-C FULL CODE Disposition: PT/OT evaluation, await recs. CM to work on AVAPS and assist with DC planning. Should be able to discharge in a day or 2 if no new issues arises. Admission and Anticipated Discharge Date Admission Date: May 09, 2021 Subjective Patient lying in bed, on nasal cannula oxygen 6 L, NAD, no new acute events overnight. Patient reports eating and moving bowels okay. Patient reports ongoing chest painconstant relieved with Imdur. Patient denies f ever/headache/increased shortness of breath/wheezing/other review of symptoms. Patient has been repeatedly counseled to use BiPAP overnight in this admission, he has been declining/reluctant/noncompliant with BiPAP use. Upon further counseling and discussion today, he has agreed to use BiPAP overnight today. Will relay to the nursing staff. Per pulmonology, patient needs outpatient AVAPS, discussed with pulmonology for required settings when patient leaves. CM made aware. PT/OT to eval. Physical Exam Physical Exam: GENERAL: Alert and oriented x3. NAD, on 6L HEENT: No pallor, no icterus. Pupils equal, round and reactive to light. Oral mucosa moist. NECK: No JVD, no neck masses. HEART: S1 and S2 heard. Regular rate and rhythm. No murmur, no gallop. RESPIRATORY SYSTEM: Normal AP diameter. No accessory muscle use. No wheezing, no crackles. Decreased breath sounds bilaterally. ABDOMEN: Soft, bowel sounds present, nontender, no distention. CENTRAL NERVOUS SYSTEM: Alert and oriented x3. No facial droop. Speech is clear. Obeys simple commands. Moves extremities. EXTREMITIES: No edema, no erythema seen. Results & Data Results & Data ([facility]) Vital Signs (Past 12 Hours) Vital Signs Temp Pulse Pulse Resp BP Pulse Ox 05/12/21 12:03 36.3 C L 77 20 115/75 93 05/12/21 10:58 87 20 90 05/12/21 07:58 36.6 C 79 20 129/71 91 05/12/21 07:16 88 22 90 05/12/21 04:10 36.7 C 76 20 131/71 95 05/12/21 04:09 79
--- NOTE | 2021-05-12 14:02 | Palliative Care Consultation ---
Date of Consultation May 12, 2021 Assessment & Plan (1) Palliative care encounter: This is a 71 year old male who presented to the hospital with SOB over a few week period. Additional PMH includes: COPD on chronic 6 L of oxygen at baseline/home, cirrhosis, HTN, PTSD, depression with anxiety, history of tobacco abuse, and anemia of chronic disease. Palliative medicine was consulted to discuss overall goals of care and code status. I talked with David in his room for a while. He talked about his illness and him wearing 6LNC at baseline. He said that he lives next door to his son and DIL who are both EMT's and check in on them daily. 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 We talked about his overall goals. It sounds like his just had a knee replacement. Overall, we talked about his code status and before I could even finish the conversation he was clear that he would not want to be intubated in the event of further and continued respiratory decline. He confirmed he would not want heroic efforts taken in the event of cardiac or respiratory arrest. Cod e status changed to reflect such. DNR/DNI ordered. Discussed above with hospitalist who plans to DC in 1-2 days. (2) COPD exacerbation: (3) Oxygen dependent: History of Present Illness Reason for Consultation: Goals of care Requesting Physician: Dr. Reilly Attending Physician: Fidel Reilly MD History of Present Illness This is a 71 year old male who presented to the hospital with SOB over a few week period. Additional PMH includes: COPD on chronic 6 L of oxygen at baseline/home, cirrhosis, HTN, PTSD, depression with anxiety, history of tobacco abuse, and anemia of chronic disease. Palliative medicine was consulted to discuss overall goals of care and code status. Thanks for involving palliative medicine with this patient. Allergies Allergy/AdvReac Type Severity Reaction Status Date / Time bee venom protein (honey bee) Allergy Severe ANAPHYLAXIS Verified 05/09/21 15:48 amoxicillin Allergy Intermediate FACIAL Verified 05/09/21 15:48 SWELLING (EYES SWELLED SHUT) clavulanic acid Allergy Intermediate FACIAL Verified 05/09/21 15:48 SWELLING (EYES SWELLED SHUT) pneumococcal vaccine Allergy Intermediate SWELLING Verified 05/09/21 15:48 Cjuadmm-PFL-VpQ Reductase Allergy Intermediate CPK'S GO Verified 05/09/21 15:48 Inhibitor THROUGH [Iohvnda-Hqq-Kao Reductase ROOF Inhibitor] prednisone AdvReac Intermediate confusion Verified 05/09/21 15:48 and agitation Home Medications Medication Instructions Recorded Confirmed Type buspirone 5 mg tablet 5 mg PO QPM 04/08/18 05/09/21 History cetirizine 10 mg tablet 10 mg PO DAILY PRN 04/08/18 05/09/21 History omeprazole 20 mg capsule,delayed 20 mg PO BID 04/08/18 05/09/21 History release sertraline 100 mg tablet 200 mg PO HS 04/08/18 05/09/21 History tiotropium bromide 18 mcg capsule 1 cap INHALATION QPM 04/08/18 05/09/21 History with inhalation device (Spiriva with HandiHaler) trazodone 150 mg tablet 150 mg PO HS 04/08/18 05/09/21 History albuterol sulfate 2.5 mg INHALATION QID PRN 07/04/18 05/09/21 History albuterol sulfate 90 mcg/actuation 2 puff INHALATION Q6H PRN 07/04/18 05/09/21 History aerosol inhaler budesonide-formoterol HFA 160 2 puff INHALATION BID 08/22/18 05/09/21 History mcg-4.5 mcg/actuation aerosol inhaler (Symbicort) epinephrine 0.3 mg/0.3 mL 0.3 mg IM DIRECTED PRN 08/22/18 05/09/21 History injection, auto-injector (EpiPen) guaifenesin 200 mg tablet 400 mg PO BID 08/22/18 05/09/21 History cholecalciferol (vitamin D3) 25 1,000 unit PO QAM 08/19/19 05/09/21 History mcg (1,000 unit) capsule (Vitamin D3) cyanocobalamin (vitamin B-12) 1,000 mcg PO 2XWK 12/19/20 05/09/21 History 1,000 mcg tablet (Vitamin B-12) diltiazem HCl 240 mg 240 mg PO QAM 12/19/20 05/09/21 History capsule,extended release 24 hr, controlled Patient History Medical History (Updated 05/12/21 @ 19:41 by MAYUR Macias) Anemia COPD (chronic obstructive pulmonary disease) with emphysema Depression GERD (gastroesophageal reflux disease) Hearing deficit [place] 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 History of COVID-19 05/2020 - hospitalized at [facility], [place] - sob, cough, generalized weakness --> pneumonia; still requiring more supplemental oxygen since having Covid (currently on 6 lpm cont home o2, prior to covid was only on 4 lpm) History of kidney stones History of tobacco abuse HTN (hypertension) On home O2 cont @ 6 lpm Osteoarthritis Palliative care encounter PTSD (post-traumatic stress disorder) Pulmonary nodules Thrombocytopenia Surgical History Dilatation of ureter H/O hernia repair History of appendectomy History of cardiac cath x 2 - most recent CA 2010 - no stents; also cath years prior at [facility] [place] and no stents History of colonoscopy History of extraction of renal calculus History of tonsillectomy Loss of teeth due to extraction S/P arthroscopic surgery of right knee Family History Mother Colon cancer Father FH: kidney cancer Other Cancer Social History Smoking Status: Former smoker Tobacco Type: Cigarettes Cigarettes Per Day: 40 pack year hx; Second Hand Exposure: No; Do You Dip or Chew Tobacco: No; Hx Alcohol Use: No Hx Substance Use: No Preferred Language: [place] Communication Ability: Effective Material Liaison Required: No Beliefs That Will Affect Care: None marital status: Current Living Situation: Spouse Current Living Situation Comment: lives with spouse 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 Feels Safe at Home: Yes Safety Concerns: Feels Safe At This Time Assistive Devices: Oxygen - Continuous and Walker Review of Systems Review of Systems: [place] System Assessment Scale: Pain: 0/3 SOB: 0/3 Anxiety: 0/3 Lack of Appetite: 0/3 PPS: 50% Physical Exam Constitutional: + thin, cooperative and comfortable ENMT: Mouth: + dry oral mucous membranes Respiratory: normal respiratory effort Auscultation: + diminished lung sounds Cardiovascular: Rate/Rhythm: regular rate and regular rhythm Heart Sounds: normal S1 and normal S2 Extremities: normal capillary refill Gastrointestinal (Abdomen): Inspection/Auscultation: abdomen normal to inspection Skin: + pallor Psychiatric: Orientation: alert and oriented x 3 Insight: + limited insight Judgement: + limited judgement Results & Data ([facility]) Vital Signs (Past 12 Hours) Vital Signs Temp Pulse Pulse Resp BP Pulse Ox 05/12/21 12:03 36.3 C L 77 20 115/75 93 05/12/21 10:58 87 20 90 05/12/21 07:58 36.6 C 79 20 129/71 91 05/12/21 07:16 88 22 90 05/12/21 04:10 36.7 C 76 20 131/71 95 05/12/21 04:09 79
[2021-05-12] MEDS: AZITHROMYCIN 250 MG TAB PO SCH (17:15)
--- NOTE | 2021-05-12 19:47 | Palliative Care Consultation ---
Date of Consultation May 12, 2021 Assessment & Plan (1) Palliative care encounter: This is a 71 year old male who presented to the hospital with SOB over a few week period. Additional PMH includes: COPD on chronic 6 L of oxygen at baseline/home, cirrhosis, HTN, PTSD, depression with anxiety, history of tobacco abuse, and anemia of chronic disease. Palliative medicine was consulted to discuss overall goals of care and code status. I talked with David in his room for a while. He talked about his illness and him wearing 6LNC at baseline. He said that he lives next door to his son and DIL who are both EMT's and check in on them daily. 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 We talked about his overall goals. It sounds like his just had a knee replacement. Overall, we talked about his code status and before I could even finish the conversation he was clear that he would not want to be intubated in the event of further and continued respiratory decline. He confirmed he would not want heroic efforts taken in the event of cardiac or respiratory arrest. Cod e status changed to reflect such. DNR/DNI ordered. Discussed above with hospitalist who plans to DC in 1-2 days. (2) COPD exacerbation: (3) Oxygen dependent: History of Present Illness Reason for Consultation: goals of care Requesting Physician: Dr. Reilly Attending Physician: Fidel Reilly MD History of Present Illness This is a 71 year old male who presented to the hospital with SOB over a few week period. Additional PMH includes: COPD on chronic 6 L of oxygen at baseline/home, cirrhosis, HTN, PTSD, depression with anxiety, history of tobacco abuse, and anemia of chronic disease. Palliative medicine was consulted to discuss overall goals of care and code status. Allergies Allergy/AdvReac Type Severity Reaction Status Date / Time bee venom protein (honey bee) Allergy Severe ANAPHYLAXIS Verified 05/09/21 15:48 amoxicillin Allergy Intermediate FACIAL Verified 05/09/21 15:48 SWELLING (EYES SWELLED SHUT) clavulanic acid Allergy Intermediate FACIAL Verified 05/09/21 15:48 SWELLING (EYES SWELLED SHUT) pneumococcal vaccine Allergy Intermediate SWELLING Verified 05/09/21 15:48 Glhulsb-YCF-PnO Reductase Allergy Intermediate CPK'S GO Verified 05/09/21 15:48 Inhibitor THROUGH [Iesucte-Baf-Oyn Reductase ROOF Inhibitor] prednisone AdvReac Intermediate confusion Verified 05/09/21 15:48 and agitation Home Medications Medication Instructions Recorded Confirmed Type buspirone 5 mg tablet 5 mg PO QPM 04/08/18 05/09/21 History cetirizine 10 mg tablet 10 mg PO DAILY PRN 04/08/18 05/09/21 History omeprazole 20 mg capsule,delayed 20 mg PO BID 04/08/18 05/09/21 History release sertraline 100 mg tablet 200 mg PO HS 04/08/18 05/09/21 History tiotropium bromide 18 mcg capsule 1 cap INHALATION QPM 04/08/18 05/09/21 History with inhalation device (Spiriva with HandiHaler) trazodone 150 mg tablet 150 mg PO HS 04/08/18 05/09/21 History albuterol sulfate 2.5 mg INHALATION QID PRN 07/04/18 05/09/21 History albuterol sulfate 90 mcg/actuation 2 puff INHALATION Q6H PRN 07/04/18 05/09/21 History aerosol inhaler budesonide-formoterol HFA 160 2 puff INHALATION BID 08/22/18 05/09/21 History mcg-4.5 mcg/actuation aerosol inhaler (Symbicort) epinephrine 0.3 mg/0.3 mL 0.3 mg IM DIRECTED PRN 08/22/18 05/09/21 History injection, auto-injector (EpiPen) guaifenesin 200 mg tablet 400 mg PO BID 08/22/18 05/09/21 History cholecalciferol (vitamin D3) 25 1,000 unit PO QAM 08/19/19 05/09/21 History mcg (1,000 unit) capsule (Vitamin D3) cyanocobalamin (vitamin B-12) 1,000 mcg PO 2XWK 12/19/20 05/09/21 History 1,000 mcg tablet (Vitamin B-12) diltiazem HCl 240 mg 240 mg PO QAM 12/19/20 05/09/21 History capsule,extended release 24 hr, controlled Patient History Medical History Anemia COPD (chronic obstructive pulmonary disease) with emphysema Depression GERD (gastroesophageal reflux disease) Hearing deficit [place] 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 [place] exposure History of COVID-19 05/2020 - hospitalized at [facility] - sob, cough, generalized weakness --> pneumonia; still requiring more supplemental oxygen since having Covid (currently on 6 lpm cont home o2, prior to covid was only on 4 lpm) History of kidney stones History of tobacco abuse HTN (hypertension) On home O2 cont @ 6 lpm Osteoarthritis Palliative care encounter PTSD (post-traumatic stress disorder) Pulmonary nodules Thrombocytopenia Surgical History Dilatation of ureter H/O hernia repair History of appendectomy History of cardiac cath x 2 - most recent [place] 2010 - no stents; also cath years prior at [facility] and no stents History of colonoscopy History of extraction of renal calculus History of tonsillectomy Loss of teeth due to extraction S/P arthroscopic surgery of right knee Family History Mother Colon cancer Father FH: kidney cancer Other Cancer Social History Smoking Status: Former smoker Tobacco Type: Cigarettes Cigarettes Per Day: 40 pack year hx; Second Hand Exposure: No; Do You Dip or Chew Tobacco: No; Hx Alcohol Use: No Hx Substance Use: No Preferred Language: Azeri Communication Ability: Effective Parts Cataloguer Required: No Beliefs That Will Affect Care: None marital status: Current Living Situation: Spouse Current Living Situation Comment: lives with spouse 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 Feels Safe at Home: Yes Safety Concerns: Feels Safe At This Time Assistive Devices: Oxygen - Continuous and Walker Review of Systems Review of Systems: [place] System Assessment Scale: Pain: 0/3 SOB: 0/3 Anxiety: 0/3 Lack of Appetite: 0/3 PPS: 50% Physical Exam Constitutional: + thin, cooperative and comfortable ENMT: Mouth: + dry oral mucous membranes Respiratory: normal respiratory effort Auscultation: + diminished lung sounds Cardiovascular: Rate/Rhythm: regular rate and regular rhythm Heart Sounds: normal S1 and normal S2 Extremities: normal capillary refill Gastrointestinal (Abdomen): Inspection/Auscultation: abdomen normal to inspection Skin: + pallor Psychiatric: Orientation: alert and oriented x 3 Insight: + limited insight Judgement: + limited judgement Results & Data ([facility]) Vital Signs (Past 12 Hours) Vital Signs Temp Pulse Resp BP Pulse Ox 05/12/21 16:02 87 18 93 05/12/21 15:13 36.3 C L 77 20 123/69 93 05/12/21 15:05 92 05/12/21 12:03 36.3 C L 77 20 115/75 93 05/12/21 10:58 87 20 90 05/12/21 07:58 36.6 C 79 20 129/71 91 PG Care Time/CCT Total # of Minutes Spent Total Time Spent with Patient: Total time spent is greater than 50% in coordination of care (as documented) at patient's floor/unit and/or counseling patient: 100 minutes Coding Level of Care Code 06394 Initial Inpt Care Lvl 3 Diagnoses Palliative care encounter Z51.5 COPD exacerbation J44.1 Oxygen dependent Z99.81 Time Spent (min) 100
[2021-05-12] MEDS: busPIRone 5 MG TAB PO SCH (20:57)
[2021-05-12] MEDS: SERTRALINE HCL 100 MG TABLET PO SCH (20:58)
[2021-05-12] MEDS: traZODone HCL 50 MG TAB PO SCH (20:58)
[2021-05-12] MEDS: UMECLIDINIUM BROMIDE 62.5MCG/BLISTER 7 PUFFS/INHALER INH SCH (21:02)
[2021-05-12] MEDS: FLUTICASONE/VILANTEROL 200/25MCG 14 PUFFS/INHALER INH SCH (21:02)
[2021-05-12] MEDS: ENOXAPARIN INJ 40 MG/0.4 ML SYR SQ SCH (21:03)
--- NOTE | 2021-05-12 21:06 | Communication Note ---
Date of Service: May 12, 2021 Patient with epistaxis as per RN without headache complaints. Thrombocytopenia noted on lab work. Hold Lovenox for now.
[2021-05-12 21:39] LABS: Hematocrit (blood only) 34.6 % (42-52); Hemoglobin 10.9 g/dL (14.0-18.0); Immature Granulocytes # (auto) 0.03 K/uL (0.00-0.02); Immature Granulocytes % (auto) 0.4 %; Lymphocytes # (auto) 0.89 K/uL (1.2-3.4); Lymphocytes % (auto) 10.7 %; Mean Corpuscular Hemoglobin 30.5 pg (25-34); Mean Corpuscular Hgb Conc 31.5 g/dL (32-36); Mean Corpuscular Volume 96.9 fL (80-100); Mean Platelet Volume 9.4 fL (7.4-10.4); Monocytes # (auto) 0.75 K/uL (0.11-0.59); Neutrophils # (auto) 6.62 K/uL (1.4-6.5); Neutrophils % (auto) 79.9 %; Platelet Count 102 K/uL (130-400); RDW Coefficient of Variation 13.7 % (11.5-14.5); RDW Standard Deviation 48.4 fL (36.4-46.3); Red Blood Count 3.57 M/uL (4.7-6.1); White Blood Count 8.29 K/uL (4.8-10.8)
[2021-05-13 07:08] LABS: BUN Creatinine Ratio 19.8 (10-20); Calcium 8.5 mg/dl (8.5-10.1); Creatinine Clr Calc Pharmacy 70.7 ml/min; Est GFR (African American) 88.4 ml/min; Est GFR (Non-African American) 76.3 ml/min; Potassium 3.8 mmol/L (3.5-5.1)
[2021-05-13] MEDS: ALBUT/IPRATROP 3MG/0.5MG NEB 3 ML VIAL NEB SCH ×4 (07:44→19:56)
[2021-05-13] MEDS: POT PHOSPHATE MONOBASIC W/ SOD TAB PO SCH ×2 (08:05→13:10)
[2021-05-13] MEDS: CHOLECALCIFEROL 1,000 UNITS 25 MCG TAB PO SCH (08:05)
[2021-05-13] MEDS: PANTOprazole 40 MG TAB PO SCH ×2 (08:05→20:17)
[2021-05-13] MEDS: ASPIRIN 81 MG ECTAB PO SCH (08:06)
[2021-05-13] MEDS: dilTIAZem HCL 240 MG CAPCR PO SCH (08:06)
[2021-05-13] MEDS: ISOSORBIDE MONO EXTENDED REL 30 MG TABCR PO SCH (08:06)
[2021-05-13] MEDS: DICLOFENAC SOD 1% GEL 100 GM TUBE EXT SCH ×3 (08:06→20:15)
[2021-05-13] MEDS: guaiFENesin 600 MG TABCR PO SCH ×2 (08:06→20:17)
--- NOTE | 2021-05-13 16:31 | Cardiology Progress Note ---
Date of Service May 13, 2021 Assessment & Plan (1) Acute on chronic respiratory failure with hypoxia: (2) Chest pain: Plan: Although pt is certainly at high risk for having underlying significant CAD, his symptoms are atypical, favor conservative approach. Added Imdur to 30 mg and ASA 81 mg with caution. Continue diltiazem. No beta loraine due to lung disease and because HR and BP are already controlled. As noted, intolerant of statin therapy. If has recurrent epistaxis, consider elevating aspirin, perhaps this is why he was not on it at baseline. Admission and Anticipated Discharge Date Admission Date: May 09, 2021 Subjective Patient seen in follow-up. He states his breathing has improved, denies chest discomfort. He states he is ready to go home. He had an episode of epistaxis last night and therefore his Lovenox is on hold. Physical Exam Physical Exam: Temp Pulse Resp BP Pulse Ox 36.7 C 80 17 147/79 H 90 05/11/21 07:25 05/11/21 08:29 05/11/21 08:29 05/11/21 07:25 05/11/21 08:29 Constitutional: WD/WN, vitals as above Respiratory: normal respiratory effort, lungs clear to auscultation Cardiovascular: RRR, no murmur, no edema Chest (Breasts): normal inspection/palpation of breasts Neurologic: PERRL, EOMI, accommodation nl, no face palsy, no dysarthria Results & Data ([facility]) Vital Signs (Past 12 Hours) Vital Signs Temp Pulse Resp BP Pulse Ox 05/13/21 15:38 84 18 94 05/13/21 15:37 36.7 C 88 21 104/66 92 05/13/21 12:13 37.0 C 89 18 94/58 L 90 05/13/21 11:04 76 18 97 05/13/21 07:46 70 18 98 05/13/21 07:00 70 21 112/66 93
--- NOTE | 2021-05-13 19:44 | Hospitalist Progress Note ---
Date of Service May 13, 2021 Assessment & Plan (1) Acute on chronic respiratory failure with hypoxia and hypercapnia: (2) COPD exacerbation: (3) HTN (hypertension): (4) PTSD (post-traumatic stress disorder): Plan: 71-year-old male who has significant past medical history of severe COPD on chronic 6 L of oxygen, Covid May last year, cirrhosis, HTN, PTSD, depression with anxiety, history of tobacco abuse, anemia who presents to ED 05/09 secondary to worsening shortness of breath times several weeks. He elicits that he has been following pulmonary rehab for the past 3 to 4 weeks 2 times a week. Is being managed for the following: Acute on Chronic Respiratory failure with hypoxia and hypercapnia COPD Exac admitted to [facility] tele Pt reports cough frequency at baseline with scant whitish occasional mucus, no fever, no wheezing. c/w IV solumedrol 30mg TID --> transition to BID --->then PO methylprednisolone from tomorrow (05/13) for 5 days and stop [patient reports increased confusion/" going nuts" with prednisone but cannot tolerate methylprednisolone] s/p Azithromycin 500mg po x 3 days duoneb QID and q2h prn incentive spirometry, flutter valve, Mucinex, Symbicort, Spiriva continue supplemental oxygen, patient at baseline oxygen while at rest Pulmonology evaluated the patient while inpatient: Transition to 5-day prednisone burst, agrees with current Breo and Incruse with as needed duo nebs. Consider adding azithromycin 250 mg 3 times a week or potential Daliresp given his poor baseline status. Also could consider outpatient AVAPS for chronic hypercarbic respiratory failure. Patient not a candidate for lung transplant. Continue with BiPAP nightly. Patient needs to follow-up with his pulmonology as an outpatient Start Azithro 250 mg 3times/week (05/12) and CM made aware for AVAPS upon DC. D/w Pulm regarding AVAPS settings. Palliative care evaluated the patient while inpatient. Chest Pain Patient complained of chest pain overnight for 2 nights in a row, troponin trends normal, EKG showing no acute ST or T elevation 05/11 ECHO with ejection fraction of 65 to 70% with grade 1 diastolic dysfunction. 05/11 CTA chest negative per PE or pneumonia or pleural effusion. Cardiology consulted: conservative approach, on imdur and ASA 81 mg daily. HTN bp stable continue diltiazem Depression with anxiety/PTSD continue zoloft, buspar and trazodone mood stable DVT ppx: SQ Lovenox Dispo:med tele PCP: Valencia Patel PA-C FULL CODE Disposition: PT/OT evaluation, await recs. CM to work on AVAPS and assist with DC planning. Okay to DC. Awaiting BiPAP. Agreed with DC to home with home health. Admission and Anticipated Discharge Date Admission Date: May 09, 2021 Subjective Patient seen and examined at the bedside. Patient was on 6 L nasal cannula oxygen NAD, patient uses BiPAP overnight for 3 hours. Patient denies increasing cough or wheezing. Patient denies fever/headache/dizziness/other review of symptoms. Physical Exam Physical Exam: GENERAL: Alert and oriented x3. NAD, on 6L HEENT: No pallor, no icterus. Pupils equal, round and reactive to light. Oral mucosa moist. NECK: No JVD, no neck masses. HEART: S1 and S2 heard. Regular rate and rhythm. No murmur, no gallop. RESPIRATORY SYSTEM: Normal AP diameter. No accessory muscle use. No wheezing, no crackles. Decreased breath sounds bilaterally. ABDOMEN: Soft, bowel sounds present, nontender, no distention. CENTRAL NERVOUS SYSTEM: Alert and oriented x3. No facial droop. Speech is clear. Obeys simple commands. Moves extremities. EXTREMITIES: No edema, no erythema seen. Results & Data Results & Data ([facility]) Vital Signs (Past 12 Hours) Vital Signs Temp Pulse Resp BP Pulse Ox 05/13/21 15:38 84 18 94 05/13/21 15:37 36.7 C 88 21 104/66 92 05/13/21 12:13 37.0 C 89 18 94/58 L 90 05/13/21 11:04 76 18 97 05/13/21 07:46 70 18 98
[2021-05-13] MEDS: SERTRALINE HCL 100 MG TABLET PO SCH (20:17)
[2021-05-13] MEDS: traZODone HCL 50 MG TAB PO SCH (20:17)
[2021-05-13] MEDS: busPIRone 5 MG TAB PO SCH (20:17)
[2021-05-13] MEDS: UMECLIDINIUM BROMIDE 62.5MCG/BLISTER 7 PUFFS/INHALER INH SCH (20:17)
[2021-05-13] MEDS: FLUTICASONE/VILANTEROL 200/25MCG 14 PUFFS/INHALER INH SCH (20:17)
[2021-05-14] MEDS: traMADol HCL 50 MG TABLET PO PRN (01:52)
[2021-05-14] MEDS: ALBUT/IPRATROP 3MG/0.5MG NEB 3 ML VIAL NEB SCH ×4 (07:38→19:55)
[2021-05-14 07:39] LABS: Hematocrit (blood only) 32.8 % (42-52); Hemoglobin 10.4 g/dL (14.0-18.0); Mean Corpuscular Hemoglobin 30.2 pg (25-34); Mean Corpuscular Hgb Conc 31.7 g/dL (32-36); Mean Corpuscular Volume 95.3 fL (80-100); Mean Platelet Volume 9.9 fL (7.4-10.4); Platelet Count 108 K/uL (130-400); RDW Coefficient of Variation 13.7 % (11.5-14.5); RDW Standard Deviation 48.3 fL (36.4-46.3); Red Blood Count 3.44 M/uL (4.7-6.1); White Blood Count 9.09 K/uL (4.8-10.8)
[2021-05-14 08:13] LABS: BUN Creatinine Ratio 21.7 (10-20); Calcium 8.5 mg/dl (8.5-10.1); Creatinine Clr Calc Pharmacy 80.6 ml/min; Est GFR (African American) 94.2 ml/min; Est GFR (Non-African American) 81.2 ml/min; Magnesium 2.4 mg/dl (1.8-2.4); Potassium 3.9 mmol/L (3.5-5.1)
[2021-05-14] MEDS: dilTIAZem HCL 240 MG CAPCR PO SCH (09:20)
[2021-05-14] MEDS: CHOLECALCIFEROL 1,000 UNITS 25 MCG TAB PO SCH (09:20)
[2021-05-14] MEDS: ISOSORBIDE MONO EXTENDED REL 30 MG TABCR PO SCH (09:21)
[2021-05-14] MEDS: guaiFENesin 600 MG TABCR PO SCH ×2 (09:21→20:55)
[2021-05-14] MEDS: PANTOprazole 40 MG TAB PO SCH ×2 (09:21→20:56)
[2021-05-14] MEDS: ASPIRIN 81 MG ECTAB PO SCH (09:21)
[2021-05-14] MEDS: DICLOFENAC SOD 1% GEL 100 GM TUBE EXT SCH ×3 (09:22→20:54)
--- NOTE | 2021-05-14 18:09 | Hospitalist Progress Note ---
Date of Service May 14, 2021 Assessment & Plan (1) Acute on chronic respiratory failure with hypoxia and hypercapnia: (2) COPD exacerbation: (3) HTN (hypertension): (4) PTSD (post-traumatic stress disorder): Plan: 71-year-old male who has significant past medical history of severe COPD on chronic 6 L of oxygen, Covid May last year, cirrhosis, HTN, PTSD, depression with anxiety, history of tobacco abuse, anemia who presents to ED 05/09 secondary to worsening shortness of breath times several weeks. He elicits that he has been following pulmonary rehab for the past 3 to 4 weeks 2 times a week. Is being managed for the following: Acute on Chronic Respiratory failure with hypoxia and hypercapnia COPD Exac admitted to [facility] tele Pt reports cough frequency at baseline with scant whitish occasional mucus, no fever, no wheezing. c/w IV solumedrol 30mg TID --> transition to BID ---> continue with methylprednisolone (05/13) for 5 days and stop [patient reports increased confusion/" going nuts" with prednisone but cannot tolerate methylprednisolone] s/p Azithromycin 500mg po x 3 days duoneb QID and q2h prn incentive spirometry, flutter valve, Mucinex, Symbicort, Spiriva continue supplemental oxygen, patient at baseline oxygen while at rest Pulmonology evaluated the patient while inpatient: Transition to 5-day prednisone burst, agrees with current Breo and Incruse with as needed duo nebs. Consider adding azithromycin 250 mg 3 times a week or potential Daliresp given his poor baseline status. Also could consider outpatient AVAPS for chronic hypercarbic respiratory failure. Patient not a candidate for lung transplant. Continue with BiPAP nightly. Patient needs to follow-up with his pulmonology as an outpatient Start Azithro 250 mg 3times/week (05/12) and CM made aware for AVAPS/BPAP upon DC. D/w Pulm regarding AVAPS settings. Palliative care evaluated the patient while inpatient. Chest Pain Patient complained of chest pain overnight for 2 nights in a row, troponin trends normal, EKG showing no acute ST or T elevation 05/11 ECHO with ejection fraction of 65 to 70% with grade 1 diastolic dysfunction. 05/11 CTA chest negative per PE or pneumonia or pleural effusion. Cardiology consulted: conservative approach, on imdur and ASA 81 mg daily. Patient reports improving chest pain. HTN bp stable continue diltiazem Depression with anxiety/PTSD continue zoloft, buspar and trazodone mood stable DVT ppx: SQ Lovenox Dispo:med tele PCP: Valencia Patel PA-C FULL CODE Disposition: PT/OT evaluation, await recs. CM to work on AVAPS/BPAP and assist with DC planning. Okay to DC. Awaiting BiPAP. Agreed with DC to home with home health. Admission and Anticipated Discharge Date Admission Date: May 09, 2021 Subjective Patient seen and examined at the bedside. Patient was on 6 L nasal cannula oxygen NAD, no new acute events overnight.. Patient denies increasing cough or wheezing. Patient denies fever/headache/dizziness/other review of symptoms. Physical Exam Physical Exam: GENERAL: Alert and oriented x3. NAD, on 6L HEENT: No pallor, no icterus. Pupils equal, round and reactive to light. Oral mucosa moist. NECK: No JVD, no neck masses. HEART: S1 and S2 heard. Regular rate and rhythm. No murmur, no gallop. RESPIRATORY SYSTEM: Normal AP diameter. No accessory muscle use. No wheezing, no crackles. Decreased breath sounds bilaterally. ABDOMEN: Soft, bowel sounds present, nontender, no distention. CENTRAL NERVOUS SYSTEM: Alert and oriented x3. No facial droop. Speech is clear. Obeys simple commands. Moves extremities. EXTREMITIES: No edema, no erythema seen. Results & Data Results & Data ([facility]) Vital Signs (Past 12 Hours) Vital Signs Temp Pulse Pulse Resp BP BP Pulse Ox 05/14/21 15:04 36.6 C 72 18 115/54 L 94 05/14/21 15:03 68 05/14/21 14:45 77 18 94 05/14/21 11:07 36.6 C 70 18 137/76 98 05/14/21 08:12 71 05/14/21 07:43 36.5 C 78 20 143/72 H 90
[2021-05-14] MEDS: busPIRone 5 MG TAB PO SCH (20:53)
[2021-05-14] MEDS: FLUTICASONE/VILANTEROL 200/25MCG 14 PUFFS/INHALER INH SCH (20:54)
[2021-05-14] MEDS: UMECLIDINIUM BROMIDE 62.5MCG/BLISTER 7 PUFFS/INHALER INH SCH (20:55)
[2021-05-14] MEDS: SERTRALINE HCL 100 MG TABLET PO SCH (20:57)
[2021-05-14] MEDS: traZODone HCL 50 MG TAB PO SCH (21:00)
[2021-05-15] MEDS: ALBUT/IPRATROP 3MG/0.5MG NEB 3 ML VIAL NEB SCH (07:36)
[2021-05-15] MEDS: CHOLECALCIFEROL 1,000 UNITS 25 MCG TAB PO SCH (08:31)
[2021-05-15] MEDS: AZITHROMYCIN 250 MG TAB PO SCH (08:31)
[2021-05-15] MEDS: ASPIRIN 81 MG ECTAB PO SCH (08:31)
[2021-05-15] MEDS: dilTIAZem HCL 240 MG CAPCR PO SCH (08:32)
[2021-05-15] MEDS: ISOSORBIDE MONO EXTENDED REL 30 MG TABCR PO SCH (08:32)
[2021-05-15] MEDS: CYANOCOBALAMIN 500 MCG TABLET (VITAMIN B-12) PO SCH (08:32)
[2021-05-15] MEDS: guaiFENesin 600 MG TABCR PO SCH ×2 (08:33→20:36)
[2021-05-15] MEDS: PANTOprazole 40 MG TAB PO SCH ×2 (08:33→20:38)
[2021-05-15 10:21] LABS: Creatinine Clr Calc Pharmacy 74.4 ml/min; Est GFR (African American) 94.2 ml/min; Est GFR (Non-African American) 81.2 ml/min
[2021-05-15] MEDS: DICLOFENAC SOD 1% GEL 100 GM TUBE EXT SCH ×3 (11:45→20:31)
--- NOTE | 2021-05-15 12:19 | Pulmonology Progress Note ---
Date of Service May 15, 2021 Assessment & Plan (1) COPD exacerbation: (2) Acute on chronic respiratory failure with hypoxia and hypercapnia: Plan: Impression: 71-year-old male with advanced COPD and chronic hypoxemic respiratory failure requiring 6 L at baseline. He does not appear far off from his baseline oxygen requirement. Blood gas demonstrated compensated hypercarbic respiratory failure. Again this does not appear far off from the patient's baseline. He is not coughing and expectorating phlegm and is not particularly bronchospastic. Unfortunately it appears that the patient has advanced/end- stage emphysema. Recommendations: 1. COPD: The patient does not have clear evidence of an exacerbation currently as he is not coughing, expectorating phlegm, or significantly wheezing. He is on Solu-Medrol [address] patient on a 5 day rapid prednisone taper. He is currently on scheduled Breo and Incruse which should be adequate as well as duo nebs on an as-needed basis. 2. There is a question about oral medications. Given his frequent exacerbations, could consider the addition of chronic azithromycin therapy 250 mg 3 times a week or potential Daliresp however these medications Have only been shown to decrease exacerbations and have no role in the acute management of chronic obstructive pulmonary disease. Could consider theophylline however it has a fairly narrow therapeutic index and I am unclear if it would offer the patient clinical benefit at this point in time. These typically are prescribed as outpatient. QTC is 447 ms. EKG would have to be monitored if patient was placed on chronic azithromycin therapy. 3. Hypercarbic respiratory failure: Blood gas demonstrates fairly good compensation currently. He has been ordered CPAP/BiPAP nightly. We will follow up with his response. Will order outpatient AVAPS for chronic hypercarbic respiratory failure. See #6 below. Follow-up with outpatient sleep clinic for CPAP compliance. 4. Patient is not a candidate for other advanced therapies including a lung transplant. Could consider referral to a tertiary center to see whether or not the patient was a candidate for endobronchial valves or other potential interventions. These are not available here. This would need to be completed as an outpatient. 5. Unfortunately it appears that the patient is close to his poor baseline status. His oxygen requirement is at his baseline and he does not report increased wheezing or sputum production. He may be eligible to dismiss from the hospital in short order with [facility] Please discharge with incentive spirometry and flutter valve. 6. Due to chronic respiratory failure consequent to COPD, patient now requires a noninvasive home ventilator. Bilevel therapy with and without a rate would be ineffective as patient requires a volume targeted mode. Ventilation is required to decrease work of breathing and improve pulmonary status. Interruption of ventilator support would lead to decline of health status. NIMV settings should be AVAPS-AE; Breath rate: auto; Inspiratory time:auto; Sigh: off; PS min: 6; PS max 16; EPAP min: 4; EPAP max: 14; AVAPS rate: 1 During sleep and as needed; Targeted Vt 6-8 ml/kg 420-560 Patient does appear baseline. He can be discharged from a pulmonary perspective and follow-up with the [place] clinic. He is well-established with a [employer] administrator who visits the clinic on Tuesdays. At this time the pulmonary service will sign off. Please call with any additional questions. Admission and Anticipated Discharge Date Admission Date: May 09, 2021 Subjective Attending: Dr. Marlow Patient is still admitted. Has been at baseline oxygen requirements for several days. Recommendation prior was to discharge home from a pulmonary perspective. Patient is being prescribed AVAPS therapy. This can be coordinated as an outpatient. Settings are below. And Rx will be given to case management to [facility]. Review of Systems Review of Systems: All systems reviewed & are unremarkable except as noted in Subjective Physical Exam Physical Exam: GENERAL : No acute distress EYES: No icterus, gaze conjugate NOSE: No evidence of epistaxis. Nasal cannula in place. MOUTH: No lesions or candidiasis NECK: Supple LUNGS: No accessory muscle use. Fine scattered wheezes. Scattered rales. No rhonchi appreciated. HEART: Regular, rate controlled ABDOMEN: Soft, NT, ND, BS Present EXTREMITIES: No LE edema, pedal pulses intact NEURO: A&OX3 Results & Data Results & Data ([facility]) Vital Signs (Past 12 Hours) Vital Signs Temp Pulse Pulse Resp BP BP Pulse Ox 05/15/21 11:17 36.3 C L 89 22 124/68 93 05/15/21 08:32 36.4 C L 78 18 147/77 H 95 05/15/21 07:17 64 05/15/21 04:44 72 20 93 05/15/21 03:13 36 C L 71 20 128/68 95 05/15/21 00:38 71 26 H 93 Diagnostic Findings No further imaging since 05/11/2021 PG Care Time/CCT Total # of Minutes Spent Total Time Spent with Patient: Total time spent is greater than 50% in coordination of care (as documented) at patient's floor/unit and/or counseling patient: 30 minutes Coding Level of Care Code 06108 Subseq Hosp Care Lvl 2 Diagnoses COPD exacerbation J44.1 Acute on chronic respiratory failure with hypoxia and hypercapnia J96.21; J96 .22
--- NOTE | 2021-05-15 18:26 | Hospitalist Progress Note ---
Date of Service May 15, 2021 Assessment & Plan (1) Acute on chronic respiratory failure with hypoxia and hypercapnia: (2) COPD exacerbation: (3) HTN (hypertension): (4) PTSD (post-traumatic stress disorder): Plan: 71-year-old male who has significant past medical history of severe COPD on chronic 6 L of oxygen, Covid May last year, cirrhosis, HTN, PTSD, depression with anxiety, history of tobacco abuse, anemia who presents to ED 05/09 secondary to worsening shortness of breath times several weeks. He elicits that he has been following pulmonary rehab for the past 3 to 4 weeks 2 times a week. Is being managed for the following: Acute on Chronic Respiratory failure with hypoxia and hypercapnia COPD Exac admitted to [facility] tele Pt reports cough frequency at baseline with scant whitish occasional mucus, no fever, no wheezing. c/w IV solumedrol 30mg TID --> transition to BID ---> continue with methylprednisolone (05/13) for 5 days and stop [patient reports increased confusion/" going nuts" with prednisone but cannot tolerate methylprednisolone] s/p Azithromycin 500mg po x 3 days duoneb QID and q2h prn incentive spirometry, flutter valve, Mucinex, Symbicort, Spiriva continue supplemental oxygen, patient at baseline oxygen while at rest Pulmonology evaluated the patient while inpatient: Transition to 5-day prednisone burst, agrees with current Breo and Incruse with as needed duo nebs. Consider adding azithromycin 250 mg 3 times a week or potential Daliresp given his poor baseline status. Also could consider outpatient AVAPS/BPAP for chronic hypercarbic respiratory failure. Patient not a candidate for lung transplant. f/u OP sleep clinic for CPAP compliance. DC with IS and flutter valve. F/u Pulm as OP. AVAPS settings recommended by Pulm: PS min 6; PS max 16; EPAP min 4; EPAP max 14; AVAPS rat: 1; Targeted Vt 6-8 ml/kg 420-560. Continue with BiPAP nightly. Patient needs to follow-up with his pulmonology as an outpatient Start Azithro 250 mg 3times/week (05/12) and CM made aware for AVAPS/BPAP upon DC. Monitor EKG for QTc periodically. D/w Pulm regarding AVAPS settings. Palliative care evaluated the patient while inpatient. Chest Pain Patient complained of chest pain overnight for 2 nights in a row, troponin trends normal, EKG showing no acute ST or T elevation / ECHO with ejection fraction of 65 to 70% with grade 1 diastolic dysfunction. / CTA chest negative per PE or pneumonia or pleural effusion. Cardiology consulted: conservative approach, on imdur and ASA 81 mg daily. Patient reports improving chest pain. HTN bp stable continue diltiazem Depression with anxiety/PTSD continue zoloft, buspar and trazodone mood stable DVT ppx: SQ Lovenox Dispo:med tele PCP: Valencia Patel PA-C FULL CODE Disposition: Patient to be discharged to home with home health tomorrow with BiPAP set up from [place]. Admission and Anticipated Discharge Date Admission Date: May 09, 2021 Subjective Patient lying in bed, on 6 L nasal cannula oxygen which is his baseline, no new acute events overnight, patient reports eating and moving bowels okay. Patient denies fever/chills/headache/increased shortness of breath/chest pain/palpitations or other review of symptoms. Physical Exam Physical Exam: GENERAL: Alert and oriented x3. NAD, on 6L HEENT: No pallor, no icterus. Pupils equal, round and reactive to light. Oral mucosa moist. NECK: No JVD, no neck masses. HEART: S1 and S2 heard. Regular rate and rhythm. No murmur, no gallop. RESPIRATORY SYSTEM: Normal AP diameter. No accessory muscle use. No wheezing, no crackles. Decreased breath sounds bilaterally. ABDOMEN: Soft, bowel sounds present, nontender, no distention. CENTRAL NERVOUS SYSTEM: Alert and oriented x3. No facial droop. Speech is clear. Obeys simple commands. Moves extremities. EXTREMITIES: No edema, no erythema seen. Results & Data Results & Data ([facility]) Vital Signs (Past 12 Hours) Vital Signs Temp Pulse Pulse Resp BP BP Pulse Ox 05/15/21 17:08 76 05/15/21 15:46 36.8 C 75 20 126/73 95 05/15/21 11:17 36.3 C L 89 22 124/68 93 05/15/21 08:32 36.4 C L 78 18 147/77 H 95 05/15/21 07:17 64
[2021-05-15] MEDS: traZODone HCL 50 MG TAB PO SCH (20:37)
[2021-05-15] MEDS: SERTRALINE HCL 100 MG TABLET PO SCH (20:37)
[2021-05-15] MEDS: busPIRone 5 MG TAB PO SCH (20:38)
[2021-05-15] MEDS: FLUTICASONE/VILANTEROL 200/25MCG 14 PUFFS/INHALER INH SCH (20:39)
[2021-05-15] MEDS: UMECLIDINIUM BROMIDE 62.5MCG/BLISTER 7 PUFFS/INHALER INH SCH (20:39)
[2021-05-16] MEDS: ASPIRIN 81 MG ECTAB PO SCH (07:50)
[2021-05-16] MEDS: ISOSORBIDE MONO EXTENDED REL 30 MG TABCR PO SCH (07:50)
[2021-05-16] MEDS: dilTIAZem HCL 240 MG CAPCR PO SCH (07:50)
[2021-05-16] MEDS: CHOLECALCIFEROL 1,000 UNITS 25 MCG TAB PO SCH (07:50)
[2021-05-16] MEDS: guaiFENesin 600 MG TABCR PO SCH (07:50)
[2021-05-16] MEDS: PANTOprazole 40 MG TAB PO SCH (07:50)
[2021-05-16] MEDS: DICLOFENAC SOD 1% GEL 100 GM TUBE EXT SCH ×2 (07:51→10:44)
--- NOTE | 2021-05-16 12:24 | Discharge Summary ---
Date of Service May 16, 2021 Admission HPI Per Admitting Provider This is a 71-year-old male who has significant past medical history of severe COPD on chronic 6 L of oxygen, cirrhosis, HTN, PTSD, depression with anxiety, history of tobacco abuse, anemia who presents to ED secondary to worsening shortness of breath times several weeks. He elicits that he has been following pulmonary rehab for the past 3 to 4 weeks 2 times a week. Over the past few weeks he has noticed increasing need to use his rescue albuterol inhaler. He has been using it twice a day. Per pulmonary rehab they felt this was an exacerbation and recommended he be seen in ER due to history of allergy to oral prednisone. He denies any wheezing or increased sputum production. He does have a chronic cough of productive white sputum. He admits to being chilled and sweats but denies any documented fever. He denies any lightheadedness, dizziness, syncope, chest pain, palpitations, hemoptysis, nausea, vomiting, abdominal pain, change in bowel or urinary habits. His appetite is otherwise been stable. He has been compliant with his Symbicort and Spiriva. He denies any known sick contacts. In ED patient remained hemodynamically stable. Upon ambulation he did desaturate on his chronic 6 L of oxygen. He did receive 125 mg IV Solu-Medrol, albuterol nebulizer treatment and his symptoms did mildly improve. Chest x-ray was negative for acute abnormality. His VBG does show a compensatory respiratory acidosis; however, hypercarbia is worse than baseline. Admission Exam Per Admitting Provider Constitutional: Alert, male, chronically ill-appearing, vitals as above, NAD, sitting up in bed, pleasant, conversing easily Head: Normocephalic, Atraumatic Eyes: PERRL, conjunctivae normal, anicteric sclerae ENMT: external ear and nose normal, oropharynx normal Neck: trachea midline, no thyromegaly normal visual inspection Respiratory: On 6 L O2 via NC, decreased breath sounds throughout, diminished aeration, respiratory effort, lungs clear to auscultation, no wheeze, rales, rhonchi. Normal insp/exp effort, no accessory muscle use Cardiovascular: RRR, no murmur, no edema Vessels: no JVD or carotid bruit Chest: normal inspection of chest Abdomen: normal bowel sounds, soft, nontender, Musculoskeletal: no cyanosis or clubbing, extremities motor strength 5/5 Skin: no rashes, warm and dry normal turgor Neurologic: PERRL, EOMI, accommodation nl, no face palsy, no dysarthria CN's II-XI intact bilaterally and moves all extremities Psychiatric: A+Ox3, euthymic affect Lymphatic: no cervical or axillary lymphadenopathy : deferred Principal Diagnosis Acute on chronic respiratory failure with hypoxia and hypercapnia COPD exacerbation Discharge Exam GENERAL: Alert and oriented x3. NAD, on 6L HEENT: No pallor, no icterus. Pupils equal, round and reactive to light. Oral mucosa moist. NECK: No JVD, no neck masses. HEART: S1 and S2 heard. Regular rate and rhythm. No murmur, no gallop. RESPIRATORY SYSTEM: Normal AP diameter. No accessory muscle use. No wheezing, no crackles. Decreased breath sounds bilaterally. ABDOMEN: Soft, bowel sounds present, nontender, no distention. CENTRAL NERVOUS SYSTEM: Alert and oriented x3. No facial droop. Speech is clear. Obeys simple commands. Moves extremities. EXTREMITIES: No edema, no erythema seen. Discharge Data Allergies Allergy/AdvReac Type Severity Reaction Status Date / Time bee venom protein (honey bee) Allergy Severe ANAPHYLAXIS Verified 05/09/21 15:48 amoxicillin Allergy Intermediate FACIAL Verified 05/09/21 15:48 SWELLING (EYES SWELLED SHUT) clavulanic acid Allergy Intermediate FACIAL Verified 05/09/21 15:48 SWELLING (EYES SWELLED SHUT) pneumococcal vaccine Allergy Intermediate SWELLING Verified 05/09/21 15:48 Lywbeec-HRF-NpZ Reductase Allergy Intermediate CPK'S GO Verified 05/09/21 15:48 Inhibitor THROUGH [Sgrgdwv-Bir-Iqn Reductase ROOF Inhibitor] prednisone AdvReac Intermediate confusion Verified 05/09/21 15:48 and agitation Consultations 05/09/21 15:36 ED Decision to Admit Stat 05/10/21 12:36 Consult Pulmonology Routine 05/11/21 07:18 Consult Cardiology Routine 05/12/21 13:48 Consult Palliative Care Routine Ordered Studies 05/11/21 08:56 CT angio chest PE protocol Routine Hospital Course (1) Acute on chronic respiratory failure with hypoxia and hypercapnia: (2) COPD exacerbation: (3) HTN (hypertension): (4) PTSD (post-traumatic stress disorder): 71-year-old male who has significant past medical history of severe COPD on c hronic 6 L of oxygen, Covid May last year, cirrhosis, HTN, PTSD, depression with anxiety, history of tobacco abuse, anemia who presents to ED 05/09 secondary to worsening shortness of breath times several weeks. He elicits that he has been following pulmonary rehab for the past 3 to 4 weeks 2 times a week. He was managed for the following: #. Acute on Chronic Respiratory failure with hypoxia and hypercapnia #. COPD Exac admitted to [facility] Pt reports cough frequency at baseline with scant whitish occasional mucus, no fever, no wheezing. Incentive spirometer, flutter valve, Mucinex, Symbicort and Spiriva while inpatient. Patient treated with azithromycin and started on thrice weekly azithromycin long-term with pulmonology recommendation. Patient needs to have periodic EKG follow-up. Patient transitioned from IV to oral Solu-Medrol as patient reports not tolerating prednisone. On the day of examination, patient was at his baseline with 6 L nasal cannula oxygen and auscultation there were decreased breath sound but no wheezing appreciated. #. Pulmonology evaluated the patient while inpatient: Consider adding azithromycin 250 mg 3 times a week or potential Daliresp given his poor baseline status. Also could consider outpatient AVAPS/BPAP for chronic hypercarbic respiratory failure. Patient not a candidate for lung transplant. f/u OP sleep clinic for CPAP compliance. DC with IS and flutter valve. F/u Pulm as OP. AVAPS settings recommended by Pulm: PS min 6; PS max 16; EPAP min 4; EPAP max 14; AVAPS rat: 1; Targeted Vt 6-8 ml/kg 420-560. Continue with BiPAP nightly. [facility]. Patient needs to follow-up with his pulmonology as an outpatient Start Azithro 250 mg 3times/week (05/12), continue with it. Monitor EKG for QTc periodically. Palliative care evaluated the patient while inpatient. #. Chest Pain Patient complained of chest pain overnight for 2 nights in a row, troponin trends normal, EKG showing no acute ST or T elevation 05/11 ECHO with ejection fraction of 65 to 70% with grade 1 diastolic dysfunction. 05/11 CTA chest negative per PE or pneumonia or pleural effusion. Cardiology consulted: conservative approach, on imdur and ASA 81 mg daily. Patient reports improving chest pain. #. HTN bp stable continue diltiazem #. Depression with anxiety/PTSD continue zoloft, buspar and trazodone mood stable DVT ppx: SQ Lovenox Dispo:med tele PCP: Valencia Patel PA-C FULL CODE Patient is being discharged to home with home health with following instruction at the point of discharge: Follow-up with your primary care physician within a week time. You have been started on long-term azithromycin 3 times weekly [Saturday, Saturday, Saturday], you will need periodic EKG monitoring due to this. Coordinate with your primary care physician as an outpatient. Get EKG done in 2 weeks time. You are being discharged on BiPAP/AVAPS per pulmonology recommendation while inpatient, you will need to follow-up with your pulmonology closely. Use your BiPAP nightly. Follow-up with your heart doctor in a month time. Because of any chest pain, cardiology evaluated you while inpatient, you are started on Imdur and aspirin. Watch out for any recurrent epistaxis/bleeding, stop aspirin in such scenario and coordinate with your primary care or cardiology immediately. You are being discharged on incentive spirometer and flutter valve, continue to do as instructed. AVAPS settings recommended by Pulm:PS min 6; PS max 16; EPAP min 4; EPAP max 14; AVAPS rate: 1; Targeted Vt 6-8 ml/kg 420-560. Follow-up with outpatient sleep clinic for CPAP compliance. Take medications as prescribed. Total Time Total Time Spent Total Time Spent (In Minutes): 40 Discharge Plan Discharge Items Patient Disposition: Home - Home Health Services Reason For Visit: COPD EXAC Discharge Diagnosis: Acute on chronic respiratory failure with hypoxia and hypercapnia COPD exacerbation Activity: Resume your previous activity Non-emergency contact: Primary Care Provider Call non-emergency contact if: you have any medication questions, your symptoms worsen, your pain is not controlled and your temperature is above 101 Follow-up/Referrals: Valencia Patel PA-C [Primary Care Provider] - Diet: Heart Healthy Addtl Attending Provider Instructions: Follow-up with your primary care physician within a week time. You have been started on long-term azithromycin 3 times weekly [Saturday, Saturday, Saturday], you will need periodic EKG monitoring due to this. Coordinate with your primary care physician as an outpatient. Get EKG done in 2 weeks time. You are being discharged on BiPAP/AVAPS per pulmonology recommendation while inpatient, you will need to follow-up with your pulmonology closely. Use your BiPAP nightly. Follow-up with your heart doctor in a month time. Because of any chest pain, cardiology evaluated you while inpatient, you are st arted on Imdur and aspirin. Watch out for any recurrent epistaxis/bleeding, stop aspirin in such scenario and coordinate with your primary care or cardiology immediately. You are being discharged on incentive spirometer and flutter valve, continue to do as instructed. AVAPS settings recommended by Pulm:PS min 6; PS max 16; EPAP min 4; EPAP max 14; AVAPS rate: 1; Targeted Vt 6-8 ml/kg 420-560. Follow-up with outpatient sleep clinic for CPAP compliance. Take medications as prescribed. Pending Studies at Discharge: No Stand-Alone Forms: My [facility] [employer], Smoking Cessation Medications and DC Order Prescriptions: New azithromycin 250 mg Tablet 250 mg PO MoWeFr@0900 Qty: 15 RF: 0 isosorbide mononitrate 30 mg Tablet Extended Release 24 Hr 30 mg PO QAM Qty: 30 RF: 0 aspirin 81 mg Tablet,Delayed Release (Dr/Ec) 81 mg PO QAM Qty: 30 RF: 0 methylprednisolone [Medrol] 16 mg Tablet 32 mg PO DAILY Qty: 4 RF: 0 Continued albuterol sulfate 2.5 mg /3 mL (0.083 %) Solution For Nebulization 2.5 mg inhalation QID PRN (Reason: Shortness Of Breath Or Wheezing) RF: 0 albuterol sulfate 90 mcg/actuation Hfa Aerosol Inhaler 2 puff INHALATION Q6H PRN (Reason: Shortness Of Breath Or Wheezing) RF: 0 buspirone 5 mg Tablet 5 mg PO QPM RF: 0 cetirizine 10 mg Tablet 10 mg PO DAILY PRN (Reason: Allergy Symptoms) RF: 0 sertraline 100 mg Tablet 200 mg PO HS RF: 0 trazodone 150 mg Tablet 150 mg PO HS RF: 0 omeprazole 20 mg Capsule,Delayed Release(Dr/Ec) 20 mg PO BID RF: 0 Spiriva with HandiHaler 18 mcg Capsule, W/Inhalation Device 1 cap INHALATION QPM RF: 0 guaifenesin 200 mg Tablet 400 mg PO BID RF: 0 epinephrine [EpiPen] 0.3 mg/0.3 mL Auto-Injector 0.3 mg IM DIRECTED PRN (Reason: Allergic Reaction) RF: 0 budesonide-formoterol [Symbicort] 160-4.5 mcg/actuation Hfa Aerosol Inhaler 2 puff INHALATION BID RF: 0 cholecalciferol (vitamin D3) [Vitamin D3] 25 mcg (1,000 unit) Capsule 1,000 unit PO QAM RF: 0 cyanocobalamin (vitamin B-12) [Vitamin B-12] 1,000 mcg Tablet 1,000 mcg PO 2XWK RF: 0 diltiazem HCl 240 mg Capsule,Ext.Rel 24h Degradable 240 mg PO QAM RF: 0 Discharge Orders: Discharge Order (Routine); Ordered 05/16/21 Ordered By: Fidel Reilly Admission Data Admit Date/Time: 05/09/21 15:42 Attending Provider: Fidel Reilly Admit Provider: Tanya Jones I. Primary Care Provider: Valencia Patel Other Providers: Tanya Jones I. ; [facility] ; Joshua Abel ; Kendall Jon ; Hazel Yeh ; [facility]
== END 2021-05-16 15:00 | disposition home health service (06) | DRG 190 ==
LOC: ED 12:37 → EDINP 15:42 → SUATTDRO 15:42 → 2W 22:44 → 2N 05-11 18:16
DX: Z91.030 Bee allergy status; Z87.01 Personal history of pneumonia (recurrent); Z66 Do not resuscitate; J96.21 Acute and chronic respiratory failure with hypoxia; Z86.16 Personal history of COVID-19; R04.0 Epistaxis; Z86.711 Personal history of pulmonary embolism; Z99.81 Dependence on supplemental oxygen; Z79.51 Long term (current) use of inhaled steroids; Z77.098 Contact with and (suspected) exposure to other hazardous, chiefly nonmedicinal, chemicals; D69.6 Thrombocytopenia, unspecified; D63.8 Anemia in other chronic diseases classified elsewhere; Z79.899 Other long term (current) drug therapy; F43.10 Post-traumatic stress disorder, unspecified; Z88.8 Allergy status to other drugs, medicaments and biological substances; Z88.0 Allergy status to penicillin; Z88.7 Allergy status to serum and vaccine; Z79.52 Long term (current) use of systemic steroids; Z87.891 Personal history of nicotine dependence; R07.9 Chest pain, unspecified; J96.22 Acute and chronic respiratory failure with hypercapnia; F41.8 Other specified anxiety disorders; Z79.2 Long term (current) use of antibiotics; I10 Essential (primary) hypertension; Z79.82 Long term (current) use of aspirin; J44.1 Chronic obstructive pulmonary disease with (acute) exacerbation

== ENCOUNTER 2021-06-14 09:36 | Inpatient (IN) ==
[2021-06-14] MEDS ORDERED: ALBUT/IPRATROP 3MG/0.5MG NEB 3 ML VIAL INH STA (09:38)
[2021-06-14] MEDS ORDERED: ALBUT/IPRATROP 3MG/0.5MG NEB 3 ML VIAL NEB ONE (09:50)
[2021-06-14] MEDS ORDERED: methylPREDNISolone 125 MG/2 ML VIAL IV STA (09:50)
[2021-06-14 10:01] LABS: Basophils # (auto) 0.02 K/uL (0-0.2); Basophils % (auto) 0.2 %; Eosinophils # (auto) 0.04 K/uL (0-0.5); Eosinophils % (auto) 0.4 %; Hematocrit (blood only) 41.8 % (42-52); Hemoglobin 13.1 g/dL (14.0-18.0); Immature Granulocytes # (auto) 0.03 K/uL (0.00-0.02); Immature Granulocytes % (auto) 0.3 %; Lymphocytes # (auto) 1.09 K/uL (1.2-3.4); Lymphocytes % (auto) 10.8 %; Mean Corpuscular Hemoglobin 30.8 pg (25-34); Mean Corpuscular Hgb Conc 31.3 g/dL (32-36); Mean Corpuscular Volume 98.1 fL (80-100); Mean Platelet Volume 9.4 fL (7.4-10.4); Monocytes # (auto) 1.08 K/uL (0.11-0.59); Monocytes % (auto) 10.7 %; Neutrophils # (auto) 7.79 K/uL (1.4-6.5); Neutrophils % (auto) 77.6 %; Platelet Count 167 K/uL (130-400); RDW Coefficient of Variation 14.3 % (11.5-14.5); RDW Standard Deviation 50.3 fL (36.4-46.3); Red Blood Count 4.26 M/uL (4.7-6.1); White Blood Count 10.05 K/uL (4.8-10.8)
--- NOTE | 2021-06-14 10:11 | Emergency Department Note ---
Impression & Plan Hypoxia, Chest pain, COPD (chronic obstructive pulmonary disease) with emphysema, SOB (shortness of breath) ED Provider Note INFORMANT: Patient ED PROVIDER(S): Sanjeev Andino MD CHIEF COMPLAINT: Shortness of breath PLAN: Disposition: Admitted Condition: Guarded Outpatient prescription management: none Referral: None MEDICAL DECISION MAKING: Patient presented because of respiratory difficulties. He was hypoxic and tachypneic. He has an extensive history of COPD. The patient responded well to nonrebreather increasing his oxygen saturations into the high 90s. He was given IV Solu-Medrol as he has had this before and has not had a reaction. He does not do well with prednisone. The patient was started on an hour-long treatment. Chest x-ray and blood work were performed. ECG did not reveal any acute findings. Covid, flu, RSV testing performed. Chest x-ray is concerning for his extensive COPD. Patient did respond well to supplemental oxygen as well as the treatments and IV steroids. CBC and chemistry panel were unremarkable. Further management in the hospital will be necessary. Covid testing and flu testing negative. Triage Nursing notes reviewed and agree them. Vital Signs: reviewed and remarkable for hypoxia and tachypnea Differential diagnosis: Reactive airway disease, pneumonia, pneumothorax, COPD, influenza, COVID-19, CHF, infections, cardiac ischemia, pulmonary embolism, musculoskeletal, gastro intestinal, as well as other pathologies. Diagnostics interpreted by me: ECG: Twelve-lead ECG reveals a normal sinus rhythm at [address] elevation or depression. No PACs or PVCs. Cardiac Monitoring: Cardiac monitoring ordered by me: The patient was placed on continuous cardiac monitoring and observed. It revealed a normal sinus rhythm at 96 beats per minute without ectopy or evidence of dysrhythmia. Imaging studies: Chest imaging reveals extensive chronic changes of emphysema and bibasilar increased interstitial markings. HPI: The patient is a 71year old male who presents to the Emergency Room with complaints of shortness of breath. This started day before yesterday and is worsening. The patient also notes the following associated symptoms, chest pain, fatigue, cough. Patient is immunized for influenza and Covid. He denies any Covid exposures but may have an influenza exposure. Patient has an extensive history of COPD. The patient has been given a nebulizer treatment by EMS for relieving factors. Current pain is rated as 6/10. Patient states he did not take his morning medications. EMS noted the patient's sats were in the 60s but he responded well to a nebulizer treatment and supplemental oxygen. On arrival to the emergency department his O2 saturation was in the 50s on room air. Patient states he has been requiring up to 6 L of oxygen daily. Pt denies LOC, headache, fevers, chills, diaphoresis, visual changes, neck pain, nausea, vomiting, abdominal pain, back pain, melena, hematochezia, urinary symptoms, numbness, weakness, lymphadenopathy, rash, or other complaints. ROS: See above HPI for pertinent positives & negatives. A total of 10 systems reviewed and were otherwise negative. PAST MEDICAL HISTORY:See Below , COPD PAST SURGICAL HISTORY:See Below, FAMILY HISTORY:See Below SOCIAL HISTORY:See Below, former smoker HOME MEDICATIONS:See Below ALLERGIES:See Below VITALS:See Below PHYSICAL EXAMINATION: GENERAL: Awake, alert, dyspneic-appearing, in mild distress HENT: Normocephalic, atraumatic. Oropharynx unremarkable. EYES: Normal conjunctiva. Sclera non-icteric. NECK: Inspection normal. Non-tender. Supple. No nuchal rigidity. FROM. No m asses. RESPIRATORY: Few scattered wheezes. No rales. Poor air movement. Increased respiratory effort. CARDIAC: Normal rate. Normal rhythm. No murmurs. No rubs. Extremities warm and well perfused. Pulses equal. No JVD. GI: Soft, non-distended. No tenderness to palpation. No rebound or guarding. No masses. RECTAL: Deferred. MUSCULOSKELETAL: Atraumatic. Chest examination reveals no tenderness. The back is symmetrical on inspection without obvious abnormality. There is no CVA tenderness to palpation. No joint edema. LOWER EXTREMITIES: Calves are equal size bilaterally and non-tender. No edema. No discoloration. NEURO: Normal sensorium. No sensory or motor deficits noted. SKIN: No rash or jaundice noted. CRITICAL CARE: I have personally spent greater than 38 minutes of critical care time in the direct management of this patient. This includes bedside care, interpretation of diagnostic studies, and testing, discussion with consultants, patient, and other required patient management activities. These minutes are in excess of all separately billable procedures. Sanjeev Andino MD Past Med/Surg History Medical History Anemia COPD (chronic obstructive pulmonary disease) with emphysema Depression GERD (gastroesophageal reflux disease) Hearing deficit [place] 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 Maverick exposure History of COVID-19 05/2020 - hospitalized at [facility] - sob, cough, generalized weakness --> pneumonia; still requiring more supplemental oxygen since having Covid (currently on 6 lpm cont home o2, prior to covid was only on 4 lpm) History of kidney stones History of tobacco abuse HTN (hypertension) On home O2 cont @ 6 lpm Osteoarthritis Palliative care encounter PTSD (post-traumatic stress disorder) Pulmonary nodules Thrombocytopenia Surgical History Dilatation of ureter H/O hernia repair History of appendectomy History of cardiac cath x 2 - most recent [place] 2010 - no stents; also cath years prior at [facility] [place] and no stents History of colonoscopy History of extraction of renal calculus History of tonsillectomy Loss of teeth due to extraction S/P arthroscopic surgery of right knee Family History Mother Colon cancer Father FH: kidney cancer Other Cancer Social History (Updated 06/14/21 @ 13:24 by Nitza Floyd PA-C) Smoking Status: Former smoker Tobacco Type: Cigarettes Cigarettes Per Day: 40 pack year hx; Second Hand Exposure: No; Hx Alcohol Use: No Hx Substance Use: No Preferred Language: Bulgarian Communication Ability: Effective Javascript Software 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 Required: No Beliefs That Will Affect Care: None marital status: Current Living Situation: Spouse Current Living Situation Comment: lives with spouse current occupation: Retired [employer] Feels Safe at Home: Yes Safety Concerns: Feels Safe At This Time Assistive Devices: Glasses, Oxygen - Continuous and Walker Allergies Allergies Allergy/AdvReac Type Severity Reaction Status Date / Time bee venom protein (honey bee) Allergy Severe ANAPHYLAXIS Verified 05/09/21 15:48 amoxicillin Allergy Intermediate FACIAL Verified 05/09/21 15:48 SWELLING (EYES SWELLED SHUT) clavulanic acid Allergy Intermediate FACIAL Verified 05/09/21 15:48 SWELLING (EYES SWELLED SHUT) pneumococcal vaccine Allergy Intermediate SWELLING Verified 05/09/21 15:48 [id number] Reductase Allergy Intermediate CPK'S GO Verified 05/09/21 15:48 Inhibitor THROUGH [Stpgyrm-Ved-Poo Reductase ROOF Inhibitor] prednisone AdvReac Intermediate confusion Verified 05/09/21 15:48 and agitation Home Meds Home Medications Medication Instructions Recorded Confirmed buspirone 5 mg tablet 5 mg PO QPM 04/08/18 06/14/21 cetirizine 10 mg tablet 10 mg PO DAILY PRN 04/08/18 06/14/21 omeprazole 20 mg capsule,delayed 20 mg PO BID 04/08/18 06/14/21 release sertraline 100 mg tablet 200 mg PO HS 04/08/18 06/14/21 tiotropium bromide 18 mcg capsule 1 cap INHALATION QPM 04/08/18 06/14/21 with inhalation device (Spiriva with HandiHaler) trazodone 150 mg tablet 150 mg PO HS 04/08/18 06/14/21 albuterol sulfate 2.5 mg INHALATION QID PRN 07/04/18 06/14/21 albuterol sulfate 90 mcg/actuation 2 puff INHALATION Q6H PRN 07/04/18 06/14/21 aerosol inhaler budesonide-formoterol HFA 160 2 puff INHALATION BID 08/22/18 06/14/21 mcg-4.5 mcg/actuation aerosol inhaler (Symbicort) epinephrine 0.3 mg/0.3 mL 0.3 mg IM DIRECTED PRN 08/22/18 06/14/21 injection, auto-injector (EpiPen) guaifenesin 200 mg tablet 400 mg PO BID 08/22/18 06/14/21 cholecalciferol (vitamin D3) 25 1,000 unit PO QAM 08/19/19 06/14/21 mcg (1,000 unit) capsule (Vitamin D3) cyanocobalamin (vitamin B-12) 1,000 mcg PO 2XWK 12/19/20 06/14/21 1,000 mcg tablet (Vitamin B-12) diltiazem HCl 240 mg 240 mg PO QAM 12/19/20 06/14/21 capsule,extended release 24 hr, controlled Previous Rx's Medication Instructions Recorded aspirin 81 mg tablet,delayed 81 mg PO QAM #30 tab 05/16/21 release azithromycin 250 mg tablet 250 mg PO MoWeFr@0900 #15 tab 05/16/21 isosorbide mononitrate 30 mg 30 mg PO QAM #30 tab 05/16/21 tablet,extended release 24 hr Results & Data (ED) Vital Signs Vital Signs - 24 hr 06/14/21 09:22 06/14/21 09:38 06/14/21 09:46 Temperature 37.1 C Temperature Source Oral Pulse Rate 98 H 97 H 101 H Pulse Rate [Bilateral Apical] Pulse Rate from SpO2 Sensor 100 H Pulse Rhythm Regular Regular Pulse Strength Normal Respiratory Rate 32 H 32 H 27 H Respiratory Effort / Characteristics Labored Blood Pressure 124/76 Blood Pressure [Left Arm] Blood Pressure Mean 92 Blood Pressure Mean [Left Arm] Pulse Oximetry 56 L 98 96 Oxygen Delivery Method Room Air Non-rebreather Oxygen Flow Rate Sepsis Recent Fever Within 48 Hours No Sepsis New/Unexplained Change in Mental Status No Sepsis Action Taken by Nursing No Action Required Oxygen Flow Rate - Titration Pulse Oximetry Post Tiitration 06/14/21 09:50 06/14/21 09:53 06/14/21 10:00 Temperature Temperature Source Pulse Rate 97 H 96 H 96 H Pulse Rate [Bilateral Apical] 96 H Pulse Rate from SpO2 Sensor 96 H 96 H 96 H Pulse Rhythm Pulse Strength Respiratory Rate 31 H 25 H 30 H Respiratory Effort / Characteristics Labored Short of Breath Blood Pressure 156/66 H 124/76 Blood Pressure [Left Arm] Blood Pressure Mean 96 92 Blood Pressure Mean [Left Arm] Pulse Oximetry 98 99 97 Oxygen Delivery Method Non-rebreather Oxygen Flow Rate 15 Sepsis Recent Fever Within 48 Hours Sepsis New/Unexplained Change in Mental Status Sepsis Action Taken by Nursing Oxygen Flow Rate - Titration 15 Pulse Oximetry Post Tiitration 98 06/14/21 12:15 Temperature Temperature Source Pulse Rate Pulse Rate [Bilateral Apical] 106 H Pulse Rate from SpO2 Sensor Pulse Rhythm Pulse Strength Respiratory Rate 22 Respiratory Effort / Characteristics Blood Pressure Blood Pressure [Left Arm] 123/65 Blood Pressure Mean Blood Pressure Mean [Left Arm] 84 Pulse Oximetry 95 Oxygen Delivery Method Oxymask Oxygen Flow Rate Sepsis Recent Fever Within 48 Hours Sepsis New/Unexplained Change in Mental Status Sepsis Action Taken by Nursing Oxygen Flow Rate - Titration Pulse Oximetry Post Tiitration Laboratory Data Result diagrams: 06/14/21 09:50 06/14/21 Unknown Lab Results 06/14/21 Range/Units 09:50 WBC 10.05 (4.8-10.8) K/uL RBC 4.26 L (4.7-6.1) M/uL Hgb 13.1 L (14.0-18.0) g/dL Hct 41.8 L (42-52) % MCV 98.1 (80-100) fL MCH 30.8 (25-34) pg MCHC 31.3 L (32-36) g/dL RDW Std Deviation 50.3 H (36.4-46.3) fL RDW Coeff of Ren 14.3 (11.5-14.5) % Plt Count 167 (130-400) K/uL MPV 9.4 (7.4-10.4) fL Immature Gran % (Auto) 0.3 % Neut % (Auto) 77.6 % Lymph % (Auto) 10.8 % [place] % (Auto) 10.7 % Eos % (Auto) 0.4 % Baso % (Auto) 0.2 % Neut # (Auto) 7.79 H (1.4-6.5) K/uL Lymph # (Auto) 1.09 L (1.2-3.4) K/uL York # (Auto) 1.08 H (0.11-0.59) K/uL Eos # (Auto) 0.04 (0-0.5) K/uL Baso # (Auto) 0.02 (0-0.2) K/uL Immature Gran # (Auto) 0.03 H (0.00-0.02) K/uL Administered Medications Albuterol (Albut/Ipratrop 3mg/0.5mg Neb 3 Ml Vial) 3 ml NEB QIDR PEARL; Protocol Stop: 07/14/21 14:59 Last Admin: 06/14/21 16:08 Dose: 3 ml Documented by: [id number] Diltiazem HCl (Diltiazem Hcl 240 Mg Capcr) 240 mg PO QAM [facility] Stop: 07/14/21 13:59 Last Admin: 06/14/21 15:22 Dose: 240 mg Documented by: [id number] Enoxaparin Sodium (Enoxaparin Inj 40 Mg/0.4 Ml Syr) 40 mg SQ Q24H [facility] Stop: 07/14/21 13:59 Last Admin: 06/14/21 15:22 Dose: 40 mg Documented by: [id number] Discontinued Medications Albuterol (Albut/Ipratrop 3mg/0.5mg Neb 3 Ml Vial) 3 ml INH NOW STA Stop: 06/14/21 09:39 Last Admin: 06/14/21 10:46 Dose: 3 ml Documented by: [id number] Albuterol (Albut/Ipratrop 3mg/0.5mg Neb 3 Ml Vial) 12 ml NEB ONE ONE; Protocol Stop: 06/14/21 09:51 Last Admin: 06/14/21 10:00 Dose: 12 ml Documented by: [id number] Methylprednisolone (Methylprednisolone 125 Mg/2 Ml Vial) 125 mg IV NOW STA Stop: 06/14/21 09:51 Last Admin: 06/14/21 10:13 Dose: 125 mg Documented by: [id number] Methylprednisolone (Methylprednisolone 40 Mg/Ml Vial) 40 mg IV Q8H [place] Stop: 07/14/21 13:14 Last Admin: 06/14/21 13:32 Dose: 40 mg Documented by: [id number] Tramadol HCl (Tramadol Hcl 50 Mg Tablet) 50 mg PO NOW STA Stop: 06/14/21 13:05 Last Admin: 06/14/21 13:32 Dose: 50 mg Documented by: [id number] Imaging Data Radiologist's Impression: Chest X-Ray 06/14/21 09:38 XR chest 1V portable HISTORY: Dyspnea COMPARISON: Chest 05/09/2021. FINDINGS: No pneumothorax. No pleural effusions. The heart is normal in size. Central pulmonary enlargement remains unchanged. This favors pulmonary arterial hypertension. Emphysema and chronic interstitial changes again noted within the mid to lower lung zones. This remains unchanged. No new focal lung consolidations. No evidence for pulmonary edema. IMPRESSION: 1. No change in the emphysema and chronic interstitial change at the lung bases. 2. No new focal lung consolidations. 3. Pulmonary arterial hypertension is again noted. ACT 112: Negative or not required by law. Electronically signed by: Martin Perez M.D. 06/14/2021 10:51 AM Discharge Plan Visit Data Chief Complaint: Shortness of Breath/Dyspnea Stated Complaint: SOB, BODY PAIN ED Provider: Sanjeev Andino Discharge Problem: Hypoxia, Chest pain, COPD (chronic obstructive pulmonary disease) with emphysema, SOB (shortness of breath) Patient Disposition: Admitted As Inpatient Discharge Instructions Interventions: ED Discharge Assessment Last Done: 06/14/21 13:25
[2021-06-14 10:23] LABS: Alanine Aminotransferase 20 (12-78); Albumin Level 3.5 gm/dl (3.4-5.0); Aspartate Aminotransferase 20 U/L (15-37); BUN Creatinine Ratio 8.9 (10-20); Blood Urea Nitrogen 9 mg/dl (7-18); Calcium 9.3 mg/dl (8.5-10.1); Carbon Dioxide 35 mmol/L (21-32); Chloride 94 mmol/L (98-107); Est GFR (African American) 87.4 ml/min; Est GFR (Non-African American) 75.4 ml/min; Glucose 129 mg/dl (70-99); Potassium 4.1 mmol/L (3.5-5.1); Sodium 133 mmol/L (136-145)
[2021-06-14 10:28] LABS: Albumin Globulin Ratio 0.9 (0.9-2); Alkaline Phosphatase 101 U/L (45-117); Bilirubin,Total 0.4 mg/dl (0.2-1); Globulin 4.1 gm/dl (2.5-4.0); NT Pro B Type Natriuretic Pept 169 pg/ml (0-900); Total Protein 7.6 gm/dl (6.4-8.2); Troponin I < 0.015 ng/ml (0-0.045)
--- NOTE | 2021-06-14 10:53 | XRay Report ---
XR chest 1V portable HISTORY: Dyspnea COMPARISON: Chest 05/09/2021. FINDINGS: No pneumothorax. No pleural effusions. The heart is normal in size. Central pulmonary enlar gement remains unchanged. This favors pulmonary arterial hypertension. Emphysema and chronic intersti tial changes again noted within the mid to lower lung zones. This remains unchanged. No new focal katheryn g consolidations. No evidence for pulmonary edema. IMPRESSION: 1. No change in the emphysema and chronic interstitial change at the lung bases. 2. No new focal lung consolidations. 3. Pulmonary arterial hypertension is again noted. ACT 112: Negative or not required by law. Electronically signed by: Martin Perez M.D. 06/14/2021 10:51 AM
[2021-06-14 10:58] LABS: Influenza A virus by PCR Negative (Neg); Influenza B virus by PCR Negative (Neg); RSV by PCR Negative (Neg); SARS CoV2 RNA(COVID-19) InHosp NEGATIVE (Negative)
[2021-06-14] MEDS ORDERED: traMADol HCL 50 MG TABLET PO STA (13:04)
--- NOTE | 2021-06-14 13:04 | History & Physical Report ---
Date of Service June 14, 2021 Assessment & Plan (1) Acute on chronic respiratory failure: (2) COPD (chronic obstructive pulmonary disease) with emphysema: Plan: Patient is 71y/o M with PMH chronic respiratory failure, COPD on chronic 6 L O2, HTN, cirrhosis, depression, anxiety, PTSD, h/o tobacco use, chronic anemia presented to ER with complaint of increased shortness of breath for the past 3 days and reported pulse ox down to the 60s at home Today in ER patient afebrile, P: 98, R: 32, BP 124/76, 56% on room air. Patient was initially placed on nonrebreather with sats up to 98%. Currently on oxygen mask 6 L with sats 92-95%. No leukocytosis. Negative COVID-19 PCR, negative influenza and RSV PCR. CXR: No consolidation, chronic emphysema changes, chronic interstitial changes at lung bases, evidence of pulmonary hypertension In ER received Solu-Medrol 125 mg IV, hour-long neb Solu-Medrol 40 mg IV every 8 H Will continue home azithromycin on Saturday basis Obtain procalcitonin, if elevated consider adding Rocephin Obtain ABG, may need to consider BiPAP Scheduled DuoNebs Continue supplemental oxygen Continue BiPAP at bedtime Incentive spirometry, flutter valve Continue home Symbicort. Will hold Spiriva as getting scheduled DuoNebs Pulmonology consult Patient [facility] Patient reports does not want intubation or mechanical ventilation CBC, BMP in a.m. (3) HTN (hypertension): Plan: Continue diltiazem (4) Depression: Plan: Continue buspirone, sertraline, trazodone DVT Prophylaxis Lovenox SQ Conditional code - Is DNI, wants CPR as per discussion with pt Follows with Valencia Patel PA-C for routine care Pt was seen and care coordinated with Dr Regan. See addendum History of Present Illness Chief Complaint: SOB Primary Care Provider: Valencia Patel PA-C Patient is 71y/o M with PMH chronic respiratory failure, COPD on chronic 6 L O2, HTN, cirrhosis, depression, anxiety, PTSD, h/o tobacco use, chronic anemia presented to ER with complaint of increased shortness of breath for the past 3 days. Patient reports chronic shortness of breath with exertion at baseline. States increased shortness of breath with exertion the past 3 days. Today noted pulse ox to drop down to the 60s with ambulation. He reports he ambulates with use of walker with seat. Patient states he has been having lightheadedness with ambulating. He states he had a fall 2 days ago. Patient denies any chest pain, syncope, palpitations. Denies hitting his head. Patient reports chronic cough however past couple of days he has noted some white sputum production. He typically uses albuterol neb 2-3 times a day however past couple days has felt like he needed it more frequently. Is on Symbicort and Spiriva. Patient with history of hospitalization 05/09/2021-05/16/2021 for acute on chronic respiratory failure. Upon discharge he was given azithromycin three times a week and pulmonology was consulted and had recommended to consider outpatient AVAPS/BPAP for chronic hypercarbic respiratory failure. [facility] and he is still on his chronic inhalers and using bipap HS and was given f/u in 6 months. Denies fever/chills, diaphoresis, N/V/D/C, BRUNO, syncope, vision changes, neck pain, CP, orthopnea, palpitations, hemoptysis, sore throat, choking, otalgia, rhinorrhea, abdominal pain, paresthesias, extremity weakness, extremity edema, rashes, urinary symptoms. Allergies Allergy/AdvReac Type Severity Reaction Status Date / Time bee venom protein (honey bee) Allergy Severe ANAPHYLAXIS Verified 05/09/21 15:48 amoxicillin Allergy Intermediate FACIAL Verified 05/09/21 15:48 SWELLING (EYES SWELLED SHUT) clavulanic acid Allergy Intermediate FACIAL Verified 05/09/21 15:48 SWELLING (EYES SWELLED SHUT) pneumococcal vaccine Allergy Intermediate SWELLING Verified 05/09/21 15:48 Yluptrp-HLD-DkK Reductase Allergy Intermediate CPK'S GO Verified 05/09/21 15:48 Inhibitor THROUGH [Xptgsub-Idj-Mdk Reductase ROOF Inhibitor] prednisone AdvReac Intermediate confusion Verified 05/09/21 15:48 and agitation Home Medications Medication Instructions Recorded Confirmed Type buspirone 5 mg tablet 5 mg PO QPM 04/08/18 06/14/21 History cetirizine 10 mg tablet 10 mg PO DAILY PRN 04/08/18 06/14/21 History omeprazole 20 mg capsule,delayed 20 mg PO BID 04/08/18 06/14/21 History release sertraline 100 mg tablet 200 mg PO HS 04/08/18 06/14/21 History tiotropium bromide 18 mcg capsule 1 cap INHALATION QPM 04/08/18 06/14/21 History with inhalation device (Spiriva with HandiHaler) trazodone 150 mg tablet 150 mg PO HS 04/08/18 06/14/21 History albuterol sulfate 2.5 mg INHALATION QID PRN 07/04/18 06/14/21 History albuterol sulfate 90 mcg/actuation 2 puff INHALATION Q6H PRN 07/04/18 06/14/21 History aerosol inhaler budesonide-formoterol HFA 160 2 puff INHALATION BID 08/22/18 06/14/21 History mcg-4.5 mcg/actuation aerosol inhaler (Symbicort) epinephrine 0.3 mg/0.3 mL 0.3 mg IM DIRECTED PRN 08/22/18 06/14/21 History injection, auto-injector (EpiPen) guaifenesin 200 mg tablet 400 mg PO BID 08/22/18 06/14/21 History cholecalciferol (vitamin D3) 25 1,000 unit PO QAM 08/19/19 06/14/21 History mcg (1,000 unit) capsule (Vitamin D3) cyanocobalamin (vitamin B-12) 1,000 mcg PO 2XWK 12/19/20 06/14/21 History 1,000 mcg tablet (Vitamin B-12) diltiazem HCl 240 mg 240 mg PO QAM 12/19/20 06/14/21 History capsule,extended release 24 hr, controlled aspirin 81 mg tablet,delayed 81 mg PO QAM #30 tab 05/16/21 06/14/21 Rx release azithromycin 250 mg tablet 250 mg PO MoWeFr@0900 #15 tab 05/16/21 06/14/21 Rx isosorbide mononitrate 30 mg 30 mg PO QAM #30 tab 05/16/21 06/14/21 Rx tablet,extended release 24 hr Past Med/Surg History Medical History Anemia COPD (chronic obstructive pulmonary disease) with emphysema Depression GERD (gastroesophageal reflux disease) Hearing deficit BL BRUNO 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 [place] exposure History of COVID-19 05/2020 - hospitalized at [facility] - sob, cough, generalized weakness --> pneumonia; still requiring more supplemental oxygen since having Covid (currently on 6 lpm cont home o2, prior to covid was only on 4 lpm) History of kidney stones History of tobacco abuse HTN (hypertension) On home O2 cont @ 6 lpm Osteoarthritis Palliative care encounter PTSD (post-traumatic stress disorder) Pulmonary nodules Thrombocytopenia Surgical History Dilatation of ureter H/O hernia repair History of appendectomy History of cardiac cath x 2 - most recent [place] 2010 - no stents; also cath years prior at [facility] and no stents History of colonoscopy History of extraction of renal calculus History of tonsillectomy Loss of teeth due to extraction S/P arthroscopic surgery of right knee Family History Mother Colon cancer Father FH: kidney cancer Other Cancer Social History (Updated 06/14/21 @ 13:24 by Nitza Floyd PA-C) Smoking Status: Former smoker Tobacco Type: Cigarettes Cigarettes Per Day: 40 pack year hx; Second Hand Exposure: No; Hx Alcohol Use: No Hx Substance Use: No Preferred Language: Scottish Communication Ability: Effective Assistant Professor Of History Required: No Beliefs That Will Affect Care: None marital status: Current Living Situation: Spouse Current Living Situation Comment: lives with spouse 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 Feels Safe at Home: Yes Safety Concerns: Feels Safe At This Time Assistive Devices: Glasses, Oxygen - Continuous and Walker Review of Systems Review of Systems: All systems reviewed & are unremarkable except as noted in HPI & below Physical Exam Physical Exam: General: mild respiratory distress, chronic ill appearing elderly male Head: normocephalic, atraumatic Eyes: conjunctiva non-injected, anicteric ENT: hard of hearing, normal inspection external ears, nose, mucous membranes moist Neck: supple, trachea midline Lungs: Respirations 24, pulse ox 92% on 6L oxymask, able to speak in short sentences, +diminished throughout, +scattered wheezing CV: tachycardia, rate 104, no murmur, no pretibial edema Abd: normal BS, soft, non-tender Ext: no cyanosis, no calf tenderness Neuro: A&O x 3, no focal deficits noted, normal affect Skin: warm, dry Results & Data Results & Data ([facility]) Vital Signs (Past 12 Hours) Vital Signs Temp Pulse Pulse Resp BP BP Pulse Ox 06/14/21 12:15 106 H 22 123/65 95 06/14/21 10:00 96 H 96 H 30 H 124/76 97 06/14/21 09:53 96 H 25 H 156/66 H 99 06/14/21 09:50 97 H 31 H 98 06/14/21 09:46 101 H 27 H 96 06/14/21 09:38 97 H 32 H 98 06/14/21 09:22 37.1 C 98 H 32 H 124/76 56 L Laboratory Results Short CBC 06/14/21 Range/Units 09:50 WBC 10.05 (4.8-10.8) K/uL Hgb 13.1 L (14.0-18.0) g/dL Hct 41.8 L (42-52) % Plt Count 167 (130-400) K/uL BMP 06/14/21 Unknown Sodium 133 L Potassium 4.1 Chloride 94 L Carbon Dioxide 35 H BUN 9 Creatinine 1.00 Glucose 129 H Calcium 9.3 Cardiac Enzymes 06/14/21 Range/Units Unknown Troponin I < 0.015 (0-0.045) ng/ml Liver Function 06/14/21 Range/Units Unknown Total Bilirubin 0.4 (0.2-1) mg/dl AST 20 (15-37) U/L ALT 20 (12-78) Alkaline Phosphatase 101 (45-117) U/L Albumin 3.5 (3.4-5.0) gm/dl Diagnostic Findings Chest X-Ray 06/14/21 09:38 XR chest 1V portable HISTORY: Dyspnea COMPARISON: Chest 05/09/2021. FINDINGS: No pneumothorax. No pleural effusions. The heart is normal in size. Central pulmonary enlargement remains unchanged. This favors pulmonary arterial hypertension. Emphysema and chronic interstitial changes again noted within the mid to lower lung zones. This remains unchanged. No new focal lung consolidations. No evidence for pulmonary edema. IMPRESSION: 1. No change in the emphysema and chronic interstitial change at the lung bases. 2. No new focal lung consolidations. 3. Pulmonary arterial hypertension is again noted. ACT 112: Negative or not required by law. Electronically signed by: Martin Perez M.D. 06/14/2021 10:51 AM Code Status & VTE Plan VTE Prophylaxis Plan VTE Prophylaxis will be ordered: Yes Supervising Physician Co-Signing Physician Notes Patient is a 71-year-old male with history of COPD, chronic oxygen dependency 6 L at baseline, hypertension, cirrhosis, prior tobacco use disorder and other medical problems presents with history of worsening shortness of breath associated with cough since 3 days duration. Patient was recently discharged from [facility] after being treated for acute respiratory failure secondary to COPD exacerbation. Patient admits to using his home inhalers more frequently than his usual secondary to his symptoms. He was found to be hypoxic in 60s while in ED. He was negative for Covid, RSV, influenza screen. He also reports having dizziness with ambulation but admits to sustained a fall 2 days ago but denies any head trauma, loss of consciousness. He also denies any chest pain, nausea, vomiting, abdominal pain, diarrhea. Please review HPI for complete details of presentation. On exam patient is chronic ill-appearing, mild respiratory distress, normocephalic atraumatic, EOMI, decreased breath sounds, bilateral wheezing, S1-S2, mild tachycardia, no pedal edema, no murmur, abdomen soft, nontender, normal vitals, alert, awake, oriented, grossly no focal deficits. Patient is admitted for management of acute on chronic respiratory failure secondary to COPD exacerbation. Agree with hermilo Dixon, will consider antibiotics, continue chronic azithromycin, obtain ABG, consult pulmonary. Continue supplemental oxygen as needed. Continue BiPAP at bedtime. Hyponatremia, hypochloremia noted from regrowing. Monitor for now. I personally reviewed the record. Patient is interviewed and examined at bedside. Patient's care is coordinated with Nitza Floyd PA-C. Please refer to the documentation above for details of patient's presentation and for discussion of other issues.
--- NOTE | 2021-06-14 13:08 | Electrocardiogram Report ---
Test Reason : Blood Pressure : / mmHG Vent. Rate : 094 BPM Atrial Rate : 094 BPM P-R Int : 152 ms QRS Dur : 066 ms QT Int : 332 ms P-R-T Axes : 056 -28 061 degrees QTc Int : 415 ms Poor data quality, interpretation may be adversely affected Normal sinus rhythm Nonspecific ST and T wave abnormality Abnormal ECG When compared with ECG of 11-MAY-2021 02:42, T wave inversion now evident in Anterior leads Confirmed by Reinaldo Wan ([id number]) on 06/14/2021 1:07:56 PM Referred By: REFERRED SELF Confirmed By:Reinaldo Wan
[2021-06-14] MEDS ORDERED: ACETAMINOPHEN 325 MG TAB PO PRN (13:40)
[2021-06-14] MEDS ORDERED: POLYETHYLENE (MIRALAX) 17 GM PACK PO PRN (13:40)
[2021-06-14 13:55] LABS: Base Excess ABG 8.8 mEq/L (-9-1.8); HCO3 ABG 38 mmol/L (19-24); Oxygen Saturation ABG 95.2 % (90-95); PCO2 ABG 76 mmHg (35-46); PO2 ABG 81 mmHg (80-95); pH ABG 7.32 (7.35-7.45)
[2021-06-14 13:58] LABS: Allen Test Pos (Pos)
[2021-06-14] MEDS: ENOXAPARIN INJ 40 MG/0.4 ML SYR SQ SCH (15:22)
[2021-06-14] MEDS: dilTIAZem HCL 240 MG CAPCR PO SCH (15:22)
[2021-06-14] MEDS: ALBUT/IPRATROP 3MG/0.5MG NEB 3 ML VIAL NEB SCH (16:08)
--- NOTE | 2021-06-14 16:23 | Pulmonary Consultation ---
Date of Consultation June 14, 2021 Assessment & Plan (1) Acute on chronic respiratory failure with hypoxia and hypercapnia: (2) COPD exacerbation: (3) COPD (chronic obstructive pulmonary disease) with emphysema: Chest x-ray 06/14/2021 personally reviewed: Portable film, fair inspiratory ef fort, bilateral costophrenic cardiomegaly is again Increased hilar vascular markings Increased reticular markings in the periphery especially in the lower part of the lung. No significant change compared to before ABG 06/14/2021: 7.32/76/81 on 5 L --Acute on chronic hypercapnic hypoxic respiratory failure Secondary to COPD exacerbation COVID-19 PCR negative Influenza A/B negative Continue with inhaled bronchodilators --COPD On azithromycin 250 mg [id number] --> resume at discharge On Symbicort as well as Spiriva Daliresp 250 MCG daily for 1 week followed by 500 MCG on a daily basis on the day of discharge --History of COVID-19 pneumonia May 2020 Plan: Continue with Solu-Medrol 40 mg every 8 hours Hold azithromycin while patient is in the hospital I will give the patient doxycycline for 5 days Continue with BiPAP nightly and as needed shortness of breath Please note the above document was generated using voice recognition software. It may contain grammatical, syntax or spelling errors.Any formal questions or concerns about the content, text or information contained within the body of this dictation should be directly addressed to the provider for clarification. History of Present Illness Attending Physician: Tino Regan MD History of Present Illness 71-year-old male came to the hospital because of shortness of breath which has been going on since the last 3-5 days Past medical history: Combined pulmonary emphysema with fibrosis, chronic respiratory failure on 6 L O2, hypertension, depression, PTSD Patient was recently in the hospital end of April early May and he was discharged on azithromycin 3 times a week. Patient states that he has been compliant with his inhalers and has been using BiPAP nightly At the time of examination patient states that he is feeling better after coming to the hospital He stated he has been coughing but is unable to bring up any phlegm He has chest vest at home, he also uses guaifenesin but is not bringing up any phlegm. He denies any hemoptysis. No chest pain. He says that he is compliant with his inhalers as well as his machine at night. Denies any fever or chills. No dysuria or diarrhea Social history: Greater than [id number] smoking history Allergies Allergy/AdvReac Type Severity Reaction Status Date / Time bee venom protein (honey bee) Allergy Severe ANAPHYLAXIS Verified 05/09/21 15:48 amoxicillin Allergy Intermediate FACIAL Verified 05/09/21 15:48 SWELLING (EYES SWELLED SHUT) clavulanic acid Allergy Intermediate FACIAL Verified 05/09/21 15:48 SWELLING (EYES SWELLED SHUT) pneumococcal vaccine Allergy Intermediate SWELLING Verified 05/09/21 15:48 Bknomll-RUE-FxA Reductase Allergy Intermediate CPK'S GO Verified 05/09/21 15:48 Inhibitor THROUGH [Zpkdrox-Whf-Svr Reductase ROOF Inhibitor] prednisone AdvReac Intermediate confusion Verified 05/09/21 15:48 and agitation Home Medications Medication Instructions Recorded Confirmed Type buspirone 5 mg tablet 5 mg PO QPM 04/08/18 06/14/21 History cetirizine 10 mg tablet 10 mg PO DAILY PRN 04/08/18 06/14/21 History omeprazole 20 mg capsule,delayed 20 mg PO BID 04/08/18 06/14/21 History release sertraline 100 mg tablet 200 mg PO HS 04/08/18 06/14/21 History tiotropium bromide 18 mcg capsule 1 cap INHALATION QPM 04/08/18 06/14/21 History with inhalation device (Spiriva with HandiHaler) trazodone 150 mg tablet 150 mg PO HS 04/08/18 06/14/21 History albuterol sulfate 2.5 mg INHALATION QID PRN 07/04/18 06/14/21 History albuterol sulfate 90 mcg/actuation 2 puff INHALATION Q6H PRN 07/04/18 06/14/21 History aerosol inhaler budesonide-formoterol HFA 160 2 puff INHALATION BID 08/22/18 06/14/21 History mcg-4.5 mcg/actuation aerosol inhaler (Symbicort) epinephrine 0.3 mg/0.3 mL 0.3 mg IM DIRECTED PRN 08/22/18 06/14/21 History injection, auto-injector (EpiPen) guaifenesin 200 mg tablet 400 mg PO BID 08/22/18 06/14/21 History cholecalciferol (vitamin D3) 25 1,000 unit PO QAM 08/19/19 06/14/21 History mcg (1,000 unit) capsule (Vitamin D3) cyanocobalamin (vitamin B-12) 1,000 mcg PO 2XWK 12/19/20 06/14/21 History 1,000 mcg tablet (Vitamin B-12) diltiazem HCl 240 mg 240 mg PO QAM 12/19/20 06/14/21 History capsule,extended release 24 hr, controlled aspirin 81 mg tablet,delayed 81 mg PO QAM #30 tab 05/16/21 06/14/21 Rx release azithromycin 250 mg tablet 250 mg PO MoWeFr@0900 #15 tab 05/16/21 06/14/21 Rx isosorbide mononitrate 30 mg 30 mg PO QAM #30 tab 05/16/21 06/14/21 Rx tablet,extended release 24 hr Patient History Medical History Anemia COPD (chronic obstructive pulmonary disease) with emphysema Depression GERD (gastroesophageal reflux disease) Hearing deficit BL BRUNO 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 [place] exposure History of COVID-19 05/2020 - hospitalized at [facility] - sob, cough, generalized weakness --> pneumonia; still requiring more supplemental oxygen since having Covid (currently on 6 lpm cont home o2, prior to covid was only on 4 lpm) History of kidney stones History of tobacco abuse HTN (hypertension) On home O2 cont @ 6 lpm Osteoarthritis Palliative care encounter PTSD (post-traumatic stress disorder) Pulmonary nodules Thrombocytopenia Surgical History Dilatation of ureter H/O hernia repair History of appendectomy History of cardiac cath x 2 - most recent [place] 2010 - no stents; also cath years prior at [facility] and no stents History of colonoscopy History of extraction of renal calculus History of tonsillectomy Loss of teeth due to extraction S/P arthroscopic surgery of right knee Family History Mother Colon cancer Father FH: kidney cancer Other Cancer Social History (Updated 06/14/21 @ 13:24 by Nitza Floyd PA-C) Smoking Status: Former smoker Tobacco Type: Cigarettes Cigarettes Per Day: 40 pack year hx; Second Hand Exposure: No; Hx Alcohol Use: No Hx Substance Use: No Preferred Language: Romanian Communication Ability: Effective Career Development Coordinator/Teacher Required: No Beliefs That Will Affect Care: None marital status: Current Living Situation: Spouse Current Living Situation Comment: lives with spouse 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 Feels Safe at Home: Yes Safety Concerns: Feels Safe At This Time Assistive Devices: Oxygen - Continuous Review of Systems Review of Systems: All systems reviewed & are unremarkable except as noted in HPI & below Physical Exam Physical Exam: Constitutional: No acute distress HEENT: EOMI, PERRLA Respiratory system: Decreased air entry bilaterally, no rhonchi, minimal expiratory wheeze, positive crackles bilaterally lower lobes CVS: S1-S2 positive, no murmurs or gallops Abdomen: Soft, nontender, nondistended, positive bowel sounds x4 Extremities: +2 pulses bilaterally radialis/ dorsalis pedis, no cyanosis, +1 pitting edema bilateral lower extremity Neuro: Awake alert oriented x3 Psych: Normal mood and affect G/U: No [place] Skin: no rashes, warm and dry Lymphatic: no cervical or axillary lymphadenopathy Results & Data Results & Data ([facility]) Vital Signs (Past 12 Hours) Vital Signs Temp Pulse Pulse Resp BP BP Pulse Ox 06/14/21 16:11 97 H 24 94 06/14/21 15:32 06/14/21 14:15 94 H 22 125/69 93 06/14/21 14:13 95 H 22 125/69 93 06/14/21 14:12 97 H 18 93 06/14/21 12:15 106 H 22 123/65 95 06/14/21 10:00 96 H 96 H 30 H 124/76 97 06/14/21 09:53 96 H 25 H 156/66 H 99 06/14/21 09:50 97 H 31 H 98 06/14/21 09:46 101 H 27 H 96 06/14/21 09:38 97 H 32 H 98 06/14/21 09:22 37.1 C 98 H 32 H 124/76 56 L Pulse Ox 06/14/21 16:11 06/14/21 15:32 92 06/14/21 14:15 06/14/21 14:13 93 06/14/21 14:12 06/14/21 12:15 01/05/22 10:00 06/14/21 09:53 06/14/21 09:50 06/14/21 09:46 06/14/21 09:38 06/14/21 09:22 06/14/21 09:50 06/14/21 Unknown PG Care Time/CCT Total # of Minutes Spent Total Time Spent with Patient: Total time spent is greater than 50% in coordination of care (as documented) at patient's floor/unit and/or counseling patient: Coding Level of Care Code 97815 Initial Inpt Care Lvl 3 Diagnoses Acute on chronic respiratory failure with hypoxia and hypercapnia J96.21; J96.22 COPD exacerbation J44.1 COPD (chronic obstructive pulmonary disease) with emphysema J43.9
[2021-06-14] MEDS: SERTRALINE HCL 100 MG TABLET PO SCH (20:49)
[2021-06-14] MEDS: traZODone HCL 50 MG TAB PO SCH (20:49)
[2021-06-14] MEDS: PANTOprazole 40 MG TAB PO SCH (20:49)
[2021-06-14] MEDS: guaiFENesin 600 MG TABCR PO SCH (20:49)
[2021-06-14] MEDS: DOXYCYCLINE HYCLATE 100 MG CAP PO SCH (20:49)
[2021-06-14] MEDS: busPIRone 5 MG TAB PO SCH (20:50)
[2021-06-14] MEDS: methylPREDNISolone 40 MG in SYRINGE 0 ML IV SCH (20:50)
[2021-06-14 22:39] LABS: Appearance Urine Cloudy (Clear); Bacteria Urine Automated Negative (Negative); Bilirubin Urine Negative (Negative); Blood Urine Trace (Negative); Cast Urine Automated 0 /lpf (0-5); Color Urine Yellow; Glucose Urine UA Negative (Negative); Ketones Urine Negative (Negative); Leukocyte Esterase Urine 2+ (Negative); Nitrite Urine Negative (Negative); Protein Urine Trace (Negative); Specific Gravity Urine 1.014 (1.000-1.030); Urobilinogen Urine Negative (Negative); WBC Urine Automated >30 /hpf (0-5)
[2021-06-15] MEDS ORDERED: traMADol HCL 50 MG TABLET PO STA (00:15)
[2021-06-15] MEDS ORDERED: NITROGLYCERIN SL 0.4 MG/TAB TAB ONE (00:20)
[2021-06-15] MEDS ORDERED: NITROGLYCERIN SL 0.4 MG/TAB TAB SL STA (00:26)
[2021-06-15] MEDS: ALBUT/IPRATROP 3MG/0.5MG NEB 3 ML VIAL NEB SCH ×5 (01:07→19:42)
[2021-06-15] MEDS: methylPREDNISolone 40 MG in SYRINGE 0 ML IV SCH ×2 (04:21→13:30)
[2021-06-15 06:42] LABS: Hematocrit (blood only) 38.6 % (42-52); Hemoglobin 12.1 g/dL (14.0-18.0); Mean Corpuscular Hemoglobin 30.4 pg (25-34); Mean Corpuscular Hgb Conc 31.3 g/dL (32-36); Mean Platelet Volume 10.1 fL (7.4-10.4); Platelet Count 143 K/uL (130-400); RDW Coefficient of Variation 13.9 % (11.5-14.5); RDW Standard Deviation 49.4 fL (36.4-46.3); Red Blood Count 3.98 M/uL (4.7-6.1); White Blood Count 7.57 K/uL (4.8-10.8)
[2021-06-15 06:46] LABS: Base Excess VBG 11.8 mEq/L; HCO3 VBG 43 mmol/L; PCO2 VBG 97 mmHg (38-50); PO2 VBG 40 mmHg; pH VBG 7.26 (7.36-7.41)
[2021-06-15 07:17] LABS: Blood Urea Nitrogen 12 mg/dl (7-18); Calcium 9.5 mg/dl (8.5-10.1); Carbon Dioxide 40 mmol/L (21-32); Chloride 95 mmol/L (98-107); Est GFR (African American) 103.6 ml/min; Est GFR (Non-African American) 89.4 ml/min; Glucose 157 mg/dl (70-99); Sodium 136 mmol/L (136-145); Troponin I < 0.015 ng/ml (0-0.045)
[2021-06-15 07:24] LABS: Estimated Average Glucose 123 mg/dl; Hemoglobin A1C 5.9 % (4.5-5.6)
[2021-06-15 08:29] LABS: Potassium 5.2 mmol/L (3.5-5.1)
[2021-06-15] MEDS: dilTIAZem HCL 240 MG CAPCR PO SCH (09:00)
[2021-06-15] MEDS: PANTOprazole 40 MG TAB PO SCH ×2 (09:01→20:46)
[2021-06-15] MEDS: guaiFENesin 600 MG TABCR PO SCH ×2 (09:01→20:46)
[2021-06-15] MEDS: CHOLECALCIFEROL 1,000 UNITS 25 MCG TAB PO SCH (09:01)
[2021-06-15] MEDS: ASPIRIN 81 MG ECTAB PO SCH (09:01)
[2021-06-15] MEDS: DOXYCYCLINE HYCLATE 100 MG CAP PO SCH ×2 (09:01→20:46)
[2021-06-15] MEDS: UMECLIDINIUM BROMIDE 62.5MCG/BLISTER 7 PUFFS/INHALER INH SCH (09:02)
[2021-06-15] MEDS: ISOSORBIDE MONO EXTENDED REL 30 MG TABCR PO SCH (09:02)
[2021-06-15] MEDS: FLUTICASONE/VILANTEROL 100/25MCG 14 PUFFS/INHALER INH SCH (09:02)
[2021-06-15] MEDS: traMADol HCL 50 MG TABLET PO PRN ×2 (12:49→23:42)
--- NOTE | 2021-06-15 13:02 | Pulmonology Progress Note ---
Date of Service June 15, 2021 Assessment & Plan (1) Acute on chronic respiratory failure with hypoxia and hypercapnia: (2) COPD exacerbation: (3) COPD (chronic obstructive pulmonary disease) with emphysema: Plan: Chest x-ray 06/14/2021 reviewed: Portable film, fair inspiratory effort, bilateral costophrenic cardiomegaly is again Increased hilar vascular markings Increased reticular markings in the periphery especially in the lower part of the lung. No significant change compared to before ABG 06/14/2021: 7.32/76/81 on 5 L --Acute on chronic hypercapnic hypoxic respiratory failure Secondary to COPD exacerbation Baseline 6L/min via nasal canula Follows with [place] manager instrumentation Uses CPAP at home on a regular basis. End stage disease. Not eligble for a lung transplant Discussed outpatient evaluation with tertiary [facility] facility last admission for consideration of bronchial valves Continue BiPAP HS while an inpatient Continue with CPAP on discharge per [place] manager instrumentation COVID-19 PCR negative Influenza A/B negative Continue with inhaled bronchodilators --COPD Started on azithromycin 250 mg Dewjux-Jigymsnoe-Gjspze after last admission --> resume at discharge * Follow QtC - currently 446 ms On Symbicort as well as Spiriva Daliresp 250 MCG daily for 1 week followed by 500 MCG on a daily basis on the day of discharge. Continue as an outpatient --History of COVID-19 pneumonia May 2020 Plan: Can titrate Solu-Medrol Change to 40 mg daily Hold azithromycin while patient is in the hospital and resume on discharge Doxycycline for 5 days then stop The pulmonary service will sign off at this time. Please feel free to call with further questions. Admission and Anticipated Discharge Date Admission Date: June 14, 2021 Supervising Physician Co-Signing Physician Notes I saw and evaluated the patient with Luciano Chow, and agree with findings and plan as documented in the note. Patient seen and examined at bedside. No acute distress, no deficits overnight Patient states that he is feeling better. He is bringing up phlegm. No hemoptysis. No headache, no nausea or vomiting. Overall he states that he is feeling better On physical exam patient does have mild expiratory wheeze. S1-S2 positive, no murmurs or gallops No edema. Abdominal sounds present Can titrate down Solu-Medrol to prednisone. Consider adding Roflumilast on discharge Patient will benefit from pulmonary rehab Subjective Attending: Dr. Osuna Patient seen and examined in room 241. He appears to be at baseline. He uses 6 L of supplemental oxygen via nasal cannula at home. He did have some decrease in saturations last night with CPAP usage. That was corrected and otherwise he did well overnight. There was some confusion about placement and patient thought that he was being placed in group home permanently. I discussed with him that he may benefit from temporary placement for rehab but we would not know until evaluations for physical therapy and Occupational Therapy were completed. Patient does have a good support system with his son. Patient states she continues with some white sputum. No hemoptysis. No green sputum. He is tolerating supplemental oxygen. He has no fever or chills. He denies any other acute complaints. Review of Systems Review of Systems: All systems reviewed & are unremarkable except as noted in Subjective Physical Exam Constitutional: No acute distress. Pleasant Eyes: PERRL, conjunctivae normal, anicteric sclerae Neck: No appreciation of stridor or carotid bruits Respiratory: normal respiratory effort; no respiratory distress Auscultation: + diminished lung sounds and + rales (bilaterally) Cardiovascular: Rate/Rhythm: regular rate and regular rhythm Musculoskeletal: Head/Neck/Chest: + abnormal palpation of chest wall Neurologic: [CAM +] [CAM -]. A&OX3. Results & Data Results [facility]) Vital Signs (Past 12 Hours) Vital Signs Temp Pulse Pulse Pulse Resp BP Pulse Ox 06/15/21 11:20 70 06/15/21 11:11 36.6 C 98 H 19 126/66 91 06/15/21 10:31 86 20 91 06/15/21 07:35 36.4 C L 90 19 125/71 91 06/15/21 07:11 86 20 99 06/15/21 03:05 36.4 C L 80 24 133/78 95 Laboratory Results 06/15/21 06:25 06/15/21 06:25 PG Care Time/CCT Total # of Minutes Spent Total Time Spent with Patient: Total time spent is greater than 50% in coordination of care (as documented) at patient's floor/unit and/or counseling patient: Coding Level of Care Code 50850 Subseq Hosp Care Lvl 2 Diagnoses Acute on chronic respiratory failure with hypoxia and hypercapnia J96.21; J96.22 COPD exacerbation J44.1 COPD (chronic obstructive pulmonary disease) with emphysema J43.9 Time Spent (min) 25
[2021-06-15] MEDS: ENOXAPARIN INJ 40 MG/0.4 ML SYR SQ SCH (14:30)
--- NOTE | 2021-06-15 15:31 | Hospitalist Progress Note ---
Date of Service June 15, 2021 Assessment & Plan (1) Acute on chronic respiratory failure: Plan: Management as below (2) COPD (chronic obstructive pulmonary disease) with emphysema: Plan: Patient is 71y/o M with PMH chronic respiratory failure, COPD on chronic 6 L O2, HTN, cirrhosis, depression, anxiety, PTSD, h/o tobacco use, chronic anemia presented to ER with complaint of increased shortness of breath for the past 3 days and reported pulse ox down to the 60s at home Today in ER patient afebrile, P: 98, R: 32, BP 124/76, 56% on room air. Patient was initially placed on nonrebreather with sats up to 98%. Following admission he was on oxygen mask 6 L with sats 92-95%. No leukocytosis. Negative COVID-19 PCR, negative influenza and RSV PCR. CXR: No consolidation, chronic emphysema changes, chronic interstitial changes at lung bases, evidence of pulmonary hypertension In ER received Solu-Medrol 125 mg IV, hour-long neb Solu-Medrol 40 mg IV every 8 H was continued and later on decreased to follow milligram once daily from 06/15/2021 Will continue home azithromycin on Saturday basis following discharge Obtain procalcitonin-less than 0.05 Obtain ABG,-7.3 on 5 L of oxygen Scheduled DuoNebs Continue supplemental oxygen Continue BiPAP at bedtime Incentive spirometry, flutter valve Continue home Symbicort. Will hold Spiriva as getting scheduled DuoNebs Pulmonology consult-appreciate input and recommendation Patient follows [facility] outpatient Patient reports does not want intubation or mechanical ventilation Clinically a little bit better We will continue doxycycline for 5 days We will get PT and OT evaluation and may need placement (3) HTN (hypertension): Plan: Continue diltiazem (4) Depression: Plan: Continue buspirone, sertraline, trazodone DVT Prophylaxis Lovenox SQ Conditional code - Is DNI, wants CPR as per discussion with pt Follows with Valencia Patel PA-C for routine care Admission and Anticipated Discharge Date Admission Date: June 14, 2021 Subjective 06/15/2021 The patient was seen and examined in telemetry unit He has had episode of desaturation last night and required extra care He has been feeling better this morning Has shortness of breath but denies any pain, any nausea and or vomiting Review of Systems Review of Systems: All systems reviewed and are unremarkable except as noted below Respiratory: Moderate shortness of breath at rest Physical Exam Physical Exam: Lying in bed with moderate shortness of breath Constitutional: + ill appearing and average body habitus Eyes: PERRL, conjunctivae normal, anicteric sclerae ENMT: external ear and nose normal, oropharynx normal Neck: trachea midline, no thyromegaly Respiratory: + respiratory distress; no labored breathing Auscultation: + diminished lung sounds, + crackles (Bibasilar crackles) and + wheezes (Minimal wheezing) Cardiovascular: Rate/Rhythm: regular rate and regular rhythm; not tachycardic Heart Sounds: normal S1 and normal S2; no murmur Extremities: no edema Gastrointestinal (Abdomen): Inspection/Auscultation: normal bowel sounds; abdomen not distended Percussion/Palpation: abdomen soft; abdomen nontender Musculoskeletal: No acute arthritis in any joint Neurologic: Alert, awake and oriented x3 Results & Data Results & Data ([facility]) Vital Signs (Past 12 Hours) Vital Signs Temp Pulse Pulse Resp BP Pulse Ox Pulse Ox 06/15/21 15:00 91 06/15/21 11:20 70 06/15/21 11:11 36.6 C 98 H 19 126/66 91 06/15/21 10:31 86 20 91 06/15/21 07:35 36.4 C L 90 19 125/71 91 06/15/21 07:11 86 20 99 Laboratory Results Short CBC 06/15/21 Range/Units 06:25 WBC 7.57 (4.8-10.8) K/uL Hgb 12.1 L (14.0-18.0) g/dL Hct 38.6 L (42-52) % Plt Count 143 (130-400) K/uL BMP 06/15/21 06:25 Sodium 136 Potassium 5.2 H D Chloride 95 L Carbon Dioxide 40 H BUN 12 Creatinine 0.81 Glucose 157 H Calcium 9.5 Cardiac Enzymes 06/15/21 06/15/21 Range/Units 00:24 06:25 Troponin I < 0.015 < 0.015 (0-0.045) ng/ml Urine 06/14/21 Range/Units 22:00 Urine Color Yellow Urine Appearance Cloudy A (Clear) Urine pH 6.0 (4.5-7.5) Ur Specific [place] 1.014 (1.000-1.030) Urine Protein Trace H (Negative) Urine Glucose (UA) Negative (Negative) Medications Administered Current Inpatient Medications Acetaminophen (Acetaminophen 325 Mg Tab) 650 mg PO Q4H PRN PRN Reason: Pain or Fever Stop: 07/14/21 13:39 Albuterol (Albut/Ipratrop 3mg/0.5mg Neb 3 Ml Vial) 3 ml NEB QIDR [facility]; Protocol Stop: 07/14/21 14:59 Last Admin: 06/15/21 15:22 Dose: 3 ml Documented by: Aspirin (Aspirin 81 Mg Ectab) 81 mg PO QAM [facility] Stop: 07/15/21 08:59 Last Admin: 06/15/21 09:01 Dose: 81 mg Documented by: Buspirone HCl (Buspirone 5 Mg Tab) 5 mg PO QPM [facility] Stop: 07/14/21 20:59 Last Admin: 06/14/21 20:50 Dose: 5 mg Documented by: Diltiazem HCl (Diltiazem Hcl 240 Mg Capcr) 240 mg PO QAM [facility] Stop: 07/14/21 13:59 Last Admin: 06/15/21 09:00 Dose: 240 mg Documented by: Doxycycline Hyclate (Doxycycline Hyclate 100 Mg Cap) 100 mg PO BID [facility] Stop: 06/19/21 20:59 Last Admin: 06/15/21 09:01 Dose: 100 mg Documented by: Enoxaparin Sodium (Enoxaparin Inj 40 Mg/0.4 Ml Syr) 40 mg SQ Q24H [facility] Stop: 07/14/21 13:59 Last Admin: 06/15/21 14:30 Dose: 40 mg Documented by: Fluticasone/Vilanterol (Fluticasone/Vilanterol 100/25mcg 14 Puffs/Inhaler) 1 puffs INH DAILY [facility]; Protocol Stop: 07/15/21 08:59 Last Admin: 06/15/21 09:02 Dose: 1 puffs Documented by: Guaifenesin (Guaifenesin 600 Mg Tabcr) 600 mg PO Q12 [facility] Stop: 07/14/21 20:59 Last Admin: 06/15/21 09:01 Dose: 600 mg Documented by: Methylprednisolone 40 mg/ (Syringe) 0.64 mls @ 1.5 mls/min IV Q8H [facility] Stop: 07/14/21 20:59 Last Admin: 06/15/21 13:30 Dose: 1.5 mls/min Documented by: Isosorbide Mononitrate (Isosorbide [place] Extended Rel 30 Mg Tabcr) 30 mg PO QAM [facility] Stop: 07/15/21 08:59 Last Admin: 06/15/21 09:02 Dose: 30 mg Documented by: Pantoprazole Sodium (Pantoprazole 40 Mg Tab) 40 mg PO BID [facility]; Protocol Stop: 07/14/21 20:59 Last Admin: 06/15/21 09:01 Dose: 40 mg Documented by: Polyethylene Glycol (Polyethylene (Miralax) 17 Gm Pack) 17 gm PO DAILY PRN PRN Reason: Constipation Stop: 07/14/21 13:39 Sertraline HCl (Sertraline Hcl 100 Mg Tablet) 200 mg PO [facility] Stop: 07/14/21 20:59 Last Admin: 06/14/21 20:49 Dose: 200 mg Documented by: Tramadol HCl (Tramadol Hcl 50 Mg Tablet) 25 mg PO Q6H PRN PRN Reason: Pain Stop: 07/15/21 11:14 Last Admin: 06/15/21 12:49 Dose: 25 mg Documented by: Trazodone HCl (Trazodone Hcl 50 Mg Tab) 150 mg PO [facility] Stop: 07/14/21 20:59 Last Admin: 06/14/21 20:49 Dose: 150 mg Documented by: Umeclidinium Junior (Umeclidinium Junior 62.5mcg/Blister 7 Puffs/Inhaler) 1 puffs INH DAILY [facility] Stop: 07/15/21 08:59 Last Admin: 06/15/21 09:02 Dose: 1 puffs Documented by: Vitamin D (Cholecalciferol 1,000 Units 25 Mcg Tab) [facility] [place] Stop: 07/15/21 08:59 Last Admin: 06/15/21 09:01 Dose: 1,000 units Documented by:
[2021-06-15] MEDS: SERTRALINE HCL 100 MG TABLET PO SCH (20:46)
[2021-06-15] MEDS: busPIRone 5 MG TAB PO SCH (20:46)
[2021-06-15] MEDS: traZODone HCL 50 MG TAB PO SCH (20:46)
--- NOTE | 2021-06-15 22:09 | Electrocardiogram Report ---
Test Reason : Blood Pressure : / mmHG Vent. Rate : 082 BPM Atrial Rate : 082 BPM P-R Int : 152 ms QRS Dur : 076 ms QT Int : 382 ms P-R-T Axes : 061 -12 067 degrees QTc Int : 446 ms Normal sinus rhythm Normal ECG When compared with ECG of 14-JUN-2021 09:53, No significant change Confirmed by Will Walls ([id number]) on 06/15/2021 10:09:17 PM Referred By: REFERRED SELF Confirmed By:Will Walls
[2021-06-16 06:34] LABS: BUN Creatinine Ratio 17.5 (10-20); Blood Urea Nitrogen 16 mg/dl (7-18); Calcium 9.5 mg/dl (8.5-10.1); Carbon Dioxide 40 mmol/L (21-32); Chloride 94 mmol/L (98-107); Est GFR (African American) 100.2 ml/min; Est GFR (Non-African American) 86.4 ml/min; Glucose 117 mg/dl (70-99); Magnesium 2.3 mg/dl (1.8-2.4); Phosphorus 2.6 mg/dl (2.5-4.9); Potassium 4.9 mmol/L (3.5-5.1); Sodium 133 mmol/L (136-145)
[2021-06-16] MEDS: ALBUT/IPRATROP 3MG/0.5MG NEB 3 ML VIAL NEB SCH ×4 (07:03→20:16)
[2021-06-16] MEDS: dilTIAZem HCL 240 MG CAPCR PO SCH (08:01)
[2021-06-16] MEDS: guaiFENesin 600 MG TABCR PO SCH ×2 (08:02→20:55)
[2021-06-16] MEDS: DOXYCYCLINE HYCLATE 100 MG CAP PO SCH ×2 (08:02→20:55)
[2021-06-16] MEDS: CHOLECALCIFEROL 1,000 UNITS 25 MCG TAB PO SCH (08:02)
[2021-06-16] MEDS: ASPIRIN 81 MG ECTAB PO SCH (08:02)
[2021-06-16] MEDS: ISOSORBIDE MONO EXTENDED REL 30 MG TABCR PO SCH (08:02)
[2021-06-16] MEDS: PANTOprazole 40 MG TAB PO SCH ×2 (08:03→20:56)
[2021-06-16] MEDS: FLUTICASONE/VILANTEROL 100/25MCG 14 PUFFS/INHALER INH SCH (08:03)
[2021-06-16] MEDS: methylPREDNISolone 40 MG in SYRINGE 0 ML IV SCH (08:03)
[2021-06-16] MEDS: UMECLIDINIUM BROMIDE 62.5MCG/BLISTER 7 PUFFS/INHALER INH SCH (08:03)
[2021-06-16] MEDS ORDERED: AZITHROMYCIN 250 MG TAB PO SCH (09:00)
--- NOTE | 2021-06-16 14:13 | Hospitalist Progress Note ---
Date of Service June 16, 2021 Assessment & Plan (1) Acute on chronic respiratory failure: Plan: Management as below (2) COPD (chronic obstructive pulmonary disease) with emphysema: Plan: Patient is 71y/o M with PMH chronic respiratory failure, COPD on chronic 6 L O2, HTN, cirrhosis, depression, anxiety, PTSD, h/o tobacco use, chronic anemia presented to ER with complaint of increased shortness of breath for the past 3 days and reported pulse ox down to the 60s at home Today in ER patient afebrile, P: 98, R: 32, BP 124/76, 56% on room air. Patient was initially placed on nonrebreather with sats up to 98%. Following admission he was on oxygen mask 6 L with sats 92-95%. No leukocytosis. Negative COVID-19 PCR, negative influenza and RSV PCR. CXR: No consolidation, chronic emphysema changes, chronic interstitial changes at lung bases, evidence of pulmonary hypertension In ER received Solu-Medrol 125 mg IV, hour-long neb Solu-Medrol 40 mg IV every 8 H was continued and later on decreased to follow milligram once daily from 06/15/2021 Will continue home azithromycin on Saturday basis following discharge Obtain procalcitonin-less than 0.05 Obtain ABG,-7.3 on 5 L of oxygen Scheduled DuoNebs Continue supplemental oxygen Continue BiPAP at bedtime Incentive spirometry, flutter valve Continue home Symbicort. Will hold Spiriva as getting scheduled DuoNebs Pulmonology consult-appreciate input and recommendation Patient follows [facility] Patient reports does not want intubation or mechanical ventilation Clinically a little bit better We will continue doxycycline for 5 days We will get PT and OT evaluation and may need placement He has been requiring 10 L of oxygen to maintain saturation He wants to go home but not yet ready-we will continue current management (3) HTN (hypertension): Plan: Continue diltiazem (4) Depression: Plan: Continue buspirone, sertraline, trazodone DVT Prophylaxis Lovenox SQ Conditional code - Is DNI, wants CPR as per discussion with pt Admission and Anticipated Discharge Date Admission Date: June 14, 2021 Subjective 06/15/2021 The patient was seen and examined in telemetry unit He has had episode of desaturation last night and required extra care He has been feeling better this morning Has shortness of breath but denies any pain, any nausea and or vomiting 06/16/2021 The patient was seen and examined in telemetry unit He has been feeling reasonably well and is requiring 10 L of oxygen via oxygen mask to maintain saturation He wants to go home but is not yet at his baseline We will get PT and OT evaluation Review of Systems Review of Systems: All systems reviewed and are unremarkable except as noted below Respiratory: Moderate shortness of breath at rest Physical Exam Physical Exam: Lying in bed with moderate shortness of breath Constitutional: + ill appearing and average body habitus Eyes: PERRL, conjunctivae normal, anicteric sclerae ENMT: external ear and nose normal, oropharynx normal Neck: trachea midline, no thyromegaly Respiratory: + respiratory distress; no labored breathing Auscultation: + diminished lung sounds, + crackles (Bibasilar crackles) and + wheezes (Minimal wheezing) Cardiovascular: Rate/Rhythm: regular rate and regular rhythm; not tachycardic Heart Sounds: normal S1 and normal S2; no murmur Extremities: no edema Gastrointestinal (Abdomen): Inspection/Auscultation: normal bowel sounds; abdomen not distended Percussion/Palpation: abdomen soft; abdomen nontender Musculoskeletal: No acute arthritis in any joint Neurologic: Alert awake and oriented x3, generally weak but no focal sensory and motor deficit appreciated Results & Data Results & Data ([facility]) Vital Signs (Past 12 Hours) Vital Signs Temp Pulse Pulse Resp BP Pulse Ox Pulse Ox 06/16/21 10:50 81 06/16/21 10:32 90 18 91 06/16/21 09:41 90 06/16/21 08:00 36.8 C 69 16 118/70 95 06/16/21 07:05 68 18 96 06/16/21 03:09 36.8 C 75 17 125/73 99 Pulse Ox Pulse Ox 06/16/21 10:50 06/16/21 10:32 06/16/21 09:41 94 89 L 06/16/21 08:00 06/16/21 07:05 06/16/21 03:09 Laboratory Results BMP 06/16/21 05:46 Sodium 133 L Potassium 4.9 Chloride 94 L Carbon Dioxide 40 H BUN 16 Creatinine 0.88 Glucose 117 H Calcium 9.5 Medications Administered Current Inpatient Medications Acetaminophen (Acetaminophen 325 Mg Tab) 650 mg PO Q4H PRN PRN Reason: Pain or Fever Stop: 07/14/21 13:39 Albuterol (Albut/Ipratrop 3mg/0.5mg Neb 3 Ml Vial) 3 ml NEB QIDR [facility]; Protocol Stop: 07/14/21 14:59 Last Admin: 06/16/21 10:32 Dose: 3 ml Documented by: Aspirin (Aspirin 81 Mg Ectab) 81 mg PO QAM [facility] Stop: 07/15/21 08:59 Last Admin: 06/16/21 08:02 Dose: 81 mg Documented by: Buspirone HCl (Buspirone 5 Mg Tab) 5 mg PO QPM [facility] Stop: 07/14/21 20:59 Last Admin: 06/15/21 20:46 Dose: 5 mg Documented by: Diltiazem HCl (Diltiazem Hcl 240 Mg Capcr) 240 mg PO QAM [facility] Stop: 07/14/21 13:59 Last Admin: 06/16/21 08:01 Dose: 240 mg Documented by: Doxycycline Hyclate (Doxycycline Hyclate 100 Mg Cap) 100 mg PO BID [facility] Stop: 06/19/21 20:59 Last Admin: 06/16/21 08:02 Dose: 100 mg Documented by: Enoxaparin Sodium (Enoxaparin Inj 40 Mg/0.4 Ml Syr) 40 mg SQ Q24H [facility] Stop: 07/14/21 13:59 Last Admin: 06/16/21 14:16 Dose: 40 mg Documented by: Fluticasone/Vilanterol (Fluticasone/Vilanterol 100/25mcg 14 Puffs/Inhaler) 1 puffs INH DAILY [facility]; Protocol Stop: 07/15/21 08:59 Last Admin: 06/16/21 08:03 Dose: 1 puffs Documented by: Guaifenesin (Guaifenesin 600 Mg Tabcr) 600 mg PO Q12 [facility] Stop: 07/14/21 20:59 Last Admin: 06/16/21 08:02 Dose: 600 mg Documented by: Methylprednisolone 40 mg/ (Syringe) 0.64 mls @ 1.5 mls/min IV DAILY [facility] Stop: 07/16/21 08:59 Last Admin: 06/16/21 08:03 Dose: 1.5 mls/min Documented by: Isosorbide Mononitrate (Isosorbide [place] Extended Rel 30 Mg Tabcr) 30 mg PO QAM [facility] Stop: 07/15/21 08:59 Last Admin: 06/16/21 08:02 Dose: 30 mg Documented by: Pantoprazole Sodium (Pantoprazole 40 Mg Tab) 40 mg PO BID [facility]; Protocol Stop: 07/14/21 20:59 Last Admin: 06/16/21 08:03 Dose: 40 mg Documented by: Polyethylene Glycol (Polyethylene (Miralax) 17 Gm Pack) 17 gm PO DAILY PRN PRN Reason: Constipation Stop: 07/14/21 13:39 Sertraline HCl (Sertraline Hcl 100 Mg Tablet) 200 mg PO [facility] Stop: 07/14/21 20:59 Last Admin: 06/15/21 20:46 Dose: 200 mg Documented by: Tramadol HCl (Tramadol Hcl 50 Mg Tablet) 25 mg PO Q6H PRN PRN Reason: Pain Stop: 07/15/21 11:14 Last Admin: 06/15/21 23:42 Dose: 25 mg Documented by: Trazodone HCl (Trazodone Hcl 50 Mg Tab) 150 mg PO [facility] Stop: 07/14/21 20:59 Last Admin: 06/15/21 20:46 Dose: 150 mg Documented by: Umeclidinium [place] (Umeclidinium [place] 62.5mcg/Blister 7 Puffs/Inhaler) 1 puffs INH DAILY [facility] Stop: 07/15/21 08:59 Last Admin: 06/16/21 08:03 Dose: 1 puffs Documented by: Vitamin D (Cholecalciferol 1,000 Units 25 Mcg Tab) 1,000 units PO QAM [facility] Stop: 07/15/21 08:59 Last Admin: 06/16/21 08:02 Dose: 1,000 units Documented by:
[2021-06-16] MEDS: ENOXAPARIN INJ 40 MG/0.4 ML SYR SQ SCH (14:16)
[2021-06-16] MEDS: traZODone HCL 50 MG TAB PO SCH (20:54)
[2021-06-16] MEDS: traMADol HCL 50 MG TABLET PO PRN (20:54)
[2021-06-16] MEDS: busPIRone 5 MG TAB PO SCH (20:55)
[2021-06-16] MEDS: SERTRALINE HCL 100 MG TABLET PO SCH (20:56)
[2021-06-17] MEDS: ALBUT/IPRATROP 3MG/0.5MG NEB 3 ML VIAL NEB SCH ×4 (08:14→19:55)
[2021-06-17] MEDS: PANTOprazole 40 MG TAB PO SCH ×2 (09:11→20:34)
[2021-06-17] MEDS: dilTIAZem HCL 240 MG CAPCR PO SCH (09:12)
[2021-06-17] MEDS: CHOLECALCIFEROL 1,000 UNITS 25 MCG TAB PO SCH (09:12)
[2021-06-17] MEDS: UMECLIDINIUM BROMIDE 62.5MCG/BLISTER 7 PUFFS/INHALER INH SCH (09:12)
[2021-06-17] MEDS: methylPREDNISolone 40 MG in SYRINGE 0 ML IV SCH ×2 (09:12→20:34)
[2021-06-17] MEDS: ISOSORBIDE MONO EXTENDED REL 30 MG TABCR PO SCH (09:12)
[2021-06-17] MEDS: traMADol HCL 50 MG TABLET PO PRN (09:12)
[2021-06-17] MEDS: DOXYCYCLINE HYCLATE 100 MG CAP PO SCH ×2 (09:12→20:34)
[2021-06-17] MEDS: ASPIRIN 81 MG ECTAB PO SCH (09:12)
[2021-06-17] MEDS: guaiFENesin 600 MG TABCR PO SCH ×2 (09:12→20:33)
[2021-06-17] MEDS: FLUTICASONE/VILANTEROL 100/25MCG 14 PUFFS/INHALER INH SCH (09:13)
[2021-06-17] MEDS ORDERED: FUROSEMIDE 40 MG/4 ML VIAL IV ONE (09:31)
--- NOTE | 2021-06-17 12:39 | Hospitalist Progress Note ---
Date of Service June 17, 2021 Assessment & Plan (1) Acute on chronic respiratory failure: Plan: Management as below (2) COPD (chronic obstructive pulmonary disease) with emphysema: Plan: Patient is 71y/o M with PMH chronic respiratory failure, COPD on chronic 6 L O2, HTN, cirrhosis, depression, anxiety, PTSD, h/o tobacco use, chronic anemia presented to ER with complaint of increased shortness of breath for the past 3 days and reported pulse ox down to the 60s at home Today in ER patient afebrile, P: 98, R: 32, BP 124/76, 56% on room air. Patient was initially placed on nonrebreather with sats up to 98%. Following admission he was on oxygen mask 6 L with sats 92-95%. No leukocytosis. Negative COVID-19 PCR, negative influenza and RSV PCR. CXR: No consolidation, chronic emphysema changes, chronic interstitial changes at lung bases, evidence of pulmonary hypertension In ER received Solu-Medrol 125 mg IV, hour-long neb Solu-Medrol 40 mg IV every 8 H was continued and later on decreased to follow milligram once daily from 06/15/2021 Will continue home azithromycin on Saturday basis following discharge Obtain procalcitonin-less than 0.05 Obtain ABG,-7.3 on 5 L of oxygen Scheduled DuoNebs Continue supplemental oxygen Continue BiPAP at bedtime Incentive spirometry, flutter valve Continue home Symbicort. Will hold Spiriva as getting scheduled DuoNebs Pulmonology consult-appreciate input and recommendation [place] [facility] [place] [facility] [place] Patient reports does not want intubation or mechanical ventilation Clinically a little bit better We will continue doxycycline for 5 days We will get PT and OT evaluation and may need placement He has been requiring 10 L of oxygen to maintain saturation He wants to go home but not yet ready-we will continue current management Clinically little worse with increasing wheezing and shortness of breath and requiring more oxygen We will increase Solu-Medrol to 40 mg twice daily and given nebulized b ronchodilator treatment now He also received a dose of Lasix for more diuresis (3) HTN (hypertension): Plan: Continue diltiazem (4) Depression: Plan: Continue buspirone, sertraline, trazodone DVT Prophylaxis Lovenox SQ Conditional code - Is DNI, wants CPR as per discussion with pt Admission and Anticipated Discharge Date Admission Date: June 14, 2021 Subjective 06/15/2021 The patient was seen and examined in telemetry unit He has had episode of desaturation last night and required extra care He has been feeling better this morning Has shortness of breath but denies any pain, any nausea and or vomiting 06/16/2021 The patient was seen and examined in telemetry unit He has been feeling reasonably well and is requiring 10 L of oxygen via oxygen mask to maintain saturation He wants to go home but is not yet at his baseline We will get PT and OT evaluation 06/17/2021 The patient was seen and examined in telemetry unit His condition got worse last night and required high flow oxygen Complains a lot of wheezing today and oxygen requirements remains at 9 L/min Denies any chest pain and/or palpitation Review of Systems Review of Systems: All systems reviewed and are unremarkable except as noted below Respiratory: Moderate shortness of breath at rest with audible wheezing Physical Exam Physical Exam: Lying in bed with moderate shortness of breath Constitutional: + ill appearing and average body habitus Eyes: PERRL, conjunctivae normal, anicteric sclerae ENMT: external ear and nose normal, oropharynx normal Neck: trachea midline, no thyromegaly Respiratory: + respiratory distress; no labored breathing Auscultation: + diminished lung sounds, + crackles (Bibasilar crackles) and + wheezes (Moderate wheezing bilaterally) Cardiovascular: Rate/Rhythm: regular rate and regular rhythm; not tachycardic Heart Sounds: normal S1 and normal S2; no murmur Extremities: no edema Gastrointestinal (Abdomen): Inspection/Auscultation: normal bowel sounds; abdomen not distended Percussion/Palpation: abdomen soft; abdomen nontender Musculoskeletal: No acute arthritis in any joint Neurologic: PERRL, EOMI, accommodation nl, no face palsy, no dysarthria Lymphatic: no cervical or axillary lymphadenopathy Results & Data Results & Data ([facility]) Vital Signs (Past 12 Hours) Vital Signs Temp Pulse Pulse Resp BP Pulse Ox 06/17/21 12:03 90 20 93 06/17/21 11:00 37.0 C 89 20 124/69 98 06/17/21 08:15 79 18 92 06/17/21 07:30 71 06/17/21 07:00 36.9 C 76 18 131/71 98 06/17/21 03:50 36.5 C 81 18 144/74 H 92 Medications Administered Current Inpatient Medications Acetaminophen (Acetaminophen 325 Mg Tab) 650 mg PO Q4H PRN PRN Reason: Pain or Fever Stop: 07/14/21 13:39 Albuterol (Albut/Ipratrop 3mg/0.5mg Neb 3 Ml Vial) 3 ml NEB QIDR [facility]; Protocol Stop: 07/14/21 14:59 Last Admin: 06/17/21 12:03 Dose: 3 ml Documented by: Aspirin (Aspirin 81 Mg Ectab) 81 mg PO QAM [facility] Stop: 07/15/21 08:59 Last Admin: 06/17/21 09:12 Dose: 81 mg Documented by: Buspirone HCl (Buspirone 5 Mg Tab) 5 mg PO QPM [facility] Stop: 07/14/21 20:59 Last Admin: 06/16/21 20:55 Dose: 5 mg Documented by: Diltiazem HCl (Diltiazem Hcl 240 Mg Capcr) 240 mg PO QAM [facility] Stop: 07/14/21 13:59 Last Admin: 06/17/21 09:12 Dose: 240 mg Documented by: Doxycycline Hyclate (Doxycycline Hyclate 100 Mg Cap) 100 mg PO BID [facility] Stop: 06/19/21 20:59 Last Admin: 06/17/21 09:12 Dose: 100 mg Documented by: Enoxaparin Sodium (Enoxaparin Inj 40 Mg/0.4 Ml Syr) 40 mg SQ Q24H [facility] Stop: 07/14/21 13:59 Last Admin: 06/16/21 14:16 Dose: 40 mg Documented by: Fluticasone/Vilanterol (Fluticasone/Vilanterol 100/25mcg 14 Puffs/Inhaler) 1 puffs INH DAILY [facility]; Protocol Stop: 07/15/21 08:59 Last Admin: 06/17/21 09:13 Dose: 1 puffs Documented by: Guaifenesin (Guaifenesin 600 Mg Tabcr) 600 mg PO Q12 [facility] Stop: 07/14/21 20:59 Last Admin: 06/17/21 09:12 Dose: 600 mg Documented by: Methylprednisolone 40 mg/ (Syringe) 0.64 mls @ 1.5 mls/min IV BID [facility] Stop: 07/17/21 20:59 Isosorbide Mononitrate (Isosorbide [place] Extended Rel 30 Mg Tabcr) 30 mg PO QAM [facility] Stop: 07/15/21 08:59 Last Admin: 06/17/21 09:12 Dose: 30 mg Documented by: Pantoprazole Sodium (Pantoprazole 40 Mg Tab) 40 mg PO BID [facility]; Protocol Stop: 07/14/21 20:59 Last Admin: 06/17/21 09:11 Dose: 40 mg Documented by: Polyethylene Glycol (Polyethylene (Miralax) 17 Gm Pack) 17 gm PO DAILY PRN PRN Reason: Constipation Stop: 07/14/21 13:39 Sertraline HCl (Sertraline Hcl 100 Mg Tablet) [address] [facility] Stop: 07/14/21 20:59 Last Admin: 06/16/21 20:56 Dose: 200 mg Documented by: Tramadol HCl (Tramadol Hcl 50 Mg Tablet) 25 mg PO Q6H PRN PRN Reason: Pain Stop: 07/15/21 11:14 Last Admin: 06/17/21 09:12 Dose: 25 mg Documented by: Trazodone HCl (Trazodone Hcl 50 Mg Tab) [address] [facility] Stop: 07/14/21 20:59 Last Admin: 06/16/21 20:54 Dose: 150 mg Documented by: Umeclidinium Conrad (Umeclidinium Conrad 62.5mcg/Blister 7 Puffs/Inhaler) 1 puffs INH DAILY [facility] Stop: 07/15/21 08:59 Last Admin: 06/17/21 09:12 Dose: 1 puffs Documented by: Vitamin D (Cholecalciferol 1,000 Units 25 Mcg Tab) [facility] [place]: 07/15/21 08:59 Last Admin: 06/17/21 09:12 Dose: 1,000 units Documented by:
[2021-06-17] MEDS: ENOXAPARIN INJ 40 MG/0.4 ML SYR SQ SCH (13:34)
[2021-06-17] MEDS: busPIRone 5 MG TAB PO SCH (20:33)
[2021-06-17] MEDS: SERTRALINE HCL 100 MG TABLET PO SCH (20:34)
[2021-06-17] MEDS: traZODone HCL 50 MG TAB PO SCH (20:36)
[2021-06-18] MEDS: ALBUT/IPRATROP 3MG/0.5MG NEB 3 ML VIAL NEB SCH ×4 (08:17→19:44)
[2021-06-18 08:44] LABS: BUN Creatinine Ratio 25.7 (10-20); Blood Urea Nitrogen 21 mg/dl (7-18); Calcium 9.6 mg/dl (8.5-10.1); Carbon Dioxide 43 mmol/L (21-32); Chloride 91 mmol/L (98-107); Est GFR (African American) 103.6 ml/min; Est GFR (Non-African American) 89.4 ml/min; Glucose 144 mg/dl (70-99); Magnesium 2.3 mg/dl (1.8-2.4); Phosphorus 3.9 mg/dl (2.5-4.9); Potassium 4.1 mmol/L (3.5-5.1); Sodium 135 mmol/L (136-145)
[2021-06-18] MEDS: FLUTICASONE/VILANTEROL 100/25MCG 14 PUFFS/INHALER INH SCH (08:53)
[2021-06-18] MEDS: DOXYCYCLINE HYCLATE 100 MG CAP PO SCH ×2 (08:53→20:37)
[2021-06-18] MEDS: dilTIAZem HCL 240 MG CAPCR PO SCH (08:53)
[2021-06-18] MEDS: ISOSORBIDE MONO EXTENDED REL 30 MG TABCR PO SCH (08:53)
[2021-06-18] MEDS: PANTOprazole 40 MG TAB PO SCH ×2 (08:53→20:37)
[2021-06-18] MEDS: guaiFENesin 600 MG TABCR PO SCH ×2 (08:53→20:37)
[2021-06-18] MEDS: CHOLECALCIFEROL 1,000 UNITS 25 MCG TAB PO SCH (08:53)
[2021-06-18] MEDS: UMECLIDINIUM BROMIDE 62.5MCG/BLISTER 7 PUFFS/INHALER INH SCH (08:53)
[2021-06-18] MEDS: methylPREDNISolone 40 MG in SYRINGE 0 ML IV SCH ×2 (08:53→20:36)
[2021-06-18] MEDS: ASPIRIN 81 MG ECTAB PO SCH (08:54)
--- NOTE | 2021-06-18 13:24 | Hospitalist Progress Note ---
Date of Service June 18, 2021 Assessment & Plan (1) Acute on chronic respiratory failure: Plan: Management as below (2) COPD (chronic obstructive pulmonary disease) with emphysema: Plan: Patient is 71y/o M with PMH chronic respiratory failure, COPD on chronic 6 L O2, HTN, cirrhosis, depression, anxiety, PTSD, h/o tobacco use, chronic anemia presented to ER with complaint of increased shortness of breath for the past 3 days and reported pulse ox down to the 60s at home Today in ER patient afebrile, P: 98, R: 32, BP 124/76, 56% on room air. Patient was initially placed on nonrebreather with sats up to 98%. Following admission he was on oxygen mask 6 L with sats 92-95%. No leukocytosis. Negative COVID-19 PCR, negative influenza and RSV PCR. CXR: No consolidation, chronic emphysema changes, chronic interstitial changes at lung bases, evidence of pulmonary hypertension In ER received Solu-Medrol 125 mg IV, hour-long neb Solu-Medrol 40 mg IV every 8 H was continued and later on decreased to follow milligram once daily from 06/15/2021 Will continue home azithromycin on Saturday basis following discharge Obtain procalcitonin-less than 0.05 Obtain ABG,-7.3 on 5 L of oxygen Scheduled DuoNebs Continue supplemental oxygen Continue BiPAP at bedtime Incentive spirometry, flutter valve Continue home Symbicort. Will hold Spiriva as getting scheduled DuoNebs Pulmonology consult-appreciate input and recommendation Patient [place] Patient reports does not want intubation or mechanical ventilation Clinically a little bit better We will continue doxycycline for 5 days We will get PT and OT evaluation and may need placement He has been requiring 10 L of oxygen to maintain saturation He wants to go home but not yet ready-we will continue current management Clinically little worse with increasing wheezing and shortness of breath and requiring more oxygen We will increase Solu-Medrol to 40 mg twice daily and given nebulized b ronchodilator treatment now He also received a dose of Lasix for more diuresis Remains stable and has been requiring up to 9 L of oxygen to maintain saturation CO2 is little elevated may be secondary to use of Lasix PT recommendation on 06/16/2021 was to go home (3) HTN (hypertension): Plan: Continue diltiazem (4) Depression: Plan: Continue buspirone, sertraline, trazodone DVT Prophylaxis Lovenox SQ Conditional code - Is DNI, wants CPR as per discussion with pt Admission and Anticipated Discharge Date Admission Date: June 14, 2021 Subjective 06/15/2021 The patient was seen and examined in telemetry unit He has had episode of desaturation last night and required extra care He has been feeling better this morning Has shortness of breath but denies any pain, any nausea and or vomiting 06/16/2021 The patient was seen and examined in telemetry unit He has been feeling reasonably well and is requiring 10 L of oxygen via oxygen mask to maintain saturation He wants to go home but is not yet at his baseline We will get PT and OT evaluation 06/17/2021 The patient was seen and examined in telemetry unit His condition got worse last night and required high flow oxygen Complains a lot of wheezing today and oxygen requirements remains at 9 L/min Denies any chest pain and/or palpitation 06/18/2021 The patient was seen and examined in telemetry unit He remains reasonably stable but is still requiring high flow oxygen to maintain saturation His CO2 level is slightly elevated this morning but denies any drowsiness Review of Systems Review of Systems: All systems reviewed and are unremarkable except as noted below Respiratory: Moderate shortness of breath at rest with audible wheezing Physical Exam Physical Exam: Lying in bed with moderate shortness of breath Constitutional: + ill appearing and average body habitus Eyes: PERRL, conjunctivae normal, anicteric sclerae ENMT: external ear and nose normal, oropharynx normal Neck: trachea midline, no thyromegaly Respiratory: + respiratory distress; no labored breathing Auscultation: + diminished lung sounds, + crackles (Bibasilar crackles) and + wheezes (Moderate wheezing bilaterally) Cardiovascular: Rate/Rhythm: regular rate and regular rhythm; not tachycardic Heart Sounds: normal S1 and normal S2; no murmur Extremities: no edema Gastrointestinal (Abdomen): Inspection/Auscultation: normal bowel sounds; abdomen not distended Percussion/Palpation: abdomen soft; abdomen nontender Musculoskeletal: No acute arthritis in any joint Neurologic: PERRL, EOMI, accommodation nl, no face palsy, no dysarthria Lymphatic: no cervical or axillary lymphadenopathy Results & Data Results & Data ([facility]) Vital Signs (Past 12 Hours) Vital Signs Temp Pulse Pulse Resp BP Pulse Ox 06/18/21 12:07 36.9 C 65 18 122/66 95 06/18/21 08:17 89 20 93 06/18/21 08:00 36.8 C 88 24 131/71 96 06/18/21 07:15 74 06/18/21 04:28 36.5 C 74 24 118/76 94 Laboratory Results [facility] 06/18/21 07:41 Sodium 135 L Potassium 4.1 Chloride 91 L Carbon Dioxide 43 H* BUN 21 H Creatinine 0.81 Glucose 144 H Calcium 9.6 Medications Administered Current Inpatient Medications Acetaminophen (Acetaminophen 325 Mg Tab) 650 mg PO Q4H PRN PRN Reason: Pain or Fever Stop: 07/14/21 13:39 Albuterol (Albut/Ipratrop 3mg/0.5mg Neb 3 Ml Vial) 3 ml NEB QIDR [facility]; Protocol Stop: 07/14/21 14:59 Last Admin: 06/18/21 11:35 Dose: Not Given Documented by: Aspirin (Aspirin 81 Mg Ectab) [facility] [place] [place] Stop: 07/15/21 08:59 Last Admin: 06/18/21 08:54 Dose: 81 mg Documented by: Buspirone HCl (Buspirone 5 Mg Tab) 5 mg PO QPM [facility] Stop: 07/14/21 20:59 Last Admin: 06/17/21 20:33 Dose: 5 mg Documented by: Diltiazem HCl (Diltiazem Hcl 240 Mg Capcr) 240 mg PO QAM [facility] Stop: 07/14/21 13:59 Last Admin: 06/18/21 08:53 Dose: 240 mg Documented by: Doxycycline Hyclate (Doxycycline Hyclate 100 Mg Cap) 100 mg PO BID [facility] Stop: 06/19/21 20:59 Last Admin: 06/18/21 08:53 Dose: 100 mg Documented by: Enoxaparin Sodium (Enoxaparin Inj 40 Mg/0.4 Ml Syr) 40 mg SQ Q24H [facility] Stop: 07/14/21 13:59 Last Admin: 06/17/21 13:34 Dose: 40 mg Documented by: Fluticasone/Vilanterol (Fluticasone/Vilanterol 100/25mcg 14 Puffs/Inhaler) 1 puffs INH DAILY [facility]; Protocol Stop: 07/15/21 08:59 Last Admin: 06/18/21 08:53 Dose: 1 puffs Documented by: Guaifenesin (Guaifenesin 600 Mg Tabcr) 600 mg PO Q12 [facility] Stop: 07/14/21 20:59 Last Admin: 06/18/21 08:53 Dose: 600 mg Documented by: Methylprednisolone 40 mg/ (Syringe) 0.64 mls @ 1.5 mls/min IV BID [facility] Stop: 07/17/21 20:59 Last Admin: 06/18/21 08:53 Dose: 1.5 mls/min Documented by: Isosorbide Mononitrate (Isosorbide [place] Extended Rel 30 Mg Tabcr) 30 mg PO QAM [facility] Stop: 07/15/21 08:59 Last Admin: 06/18/21 08:53 Dose: 30 mg Documented by: Pantoprazole Sodium (Pantoprazole 40 Mg Tab) 40 mg PO BID [facility]; Protocol Stop: 07/14/21 20:59 Last Admin: 06/18/21 08:53 Dose: 40 mg Documented by: Polyethylene Glycol (Polyethylene (Miralax) 17 Gm Pack) 17 gm PO DAILY PRN PRN Reason: Constipation Stop: 07/14/21 13:39 Sertraline HCl (Sertraline Hcl 100 Mg Tablet) 200 mg PO [facility] Stop: 07/14/21 20:59 Last Admin: 06/17/21 20:34 Dose: 200 mg Documented by: Tramadol HCl (Tramadol Hcl 50 Mg Tablet) 25 mg PO Q6H PRN PRN Reason: Pain Stop: 07/15/21 11:14 Last Admin: 06/17/21 09:12 Dose: 25 mg Documented by: Trazodone HCl (Trazodone Hcl 50 Mg Tab) 150 mg PO [facility] Stop: 07/14/21 20:59 Last Admin: 06/17/21 20:36 Dose: 150 mg Documented by: Umeclidinium [place] (Umeclidinium [place] 62.5mcg/Blister 7 Puffs/Inhaler) 1 puffs INH DAILY [facility] Stop: 07/15/21 08:59 Last Admin: 06/18/21 08:53 Dose: 1 puffs Documented by: Vitamin D (Cholecalciferol 1,000 Units 25 Mcg Tab) 1,000 [facility] [place] [place] Stop: 07/15/21 08:59 Last Admin: 06/18/21 08:53 Dose: 1,000 units Documented by:
[2021-06-18] MEDS: ENOXAPARIN INJ 40 MG/0.4 ML SYR SQ SCH (13:26)
[2021-06-18] MEDS: busPIRone 5 MG TAB PO SCH (20:37)
[2021-06-18] MEDS: SERTRALINE HCL 100 MG TABLET PO SCH (20:38)
[2021-06-18] MEDS: traZODone HCL 50 MG TAB PO SCH (20:42)
[2021-06-18] MEDS: traMADol HCL 50 MG TABLET PO PRN (20:54)
[2021-06-19 06:41] LABS: Basophils # (auto) 0.01 K/uL (0-0.2); Basophils % (auto) 0.1 %; Hematocrit (blood only) 36.9 % (42-52); Hemoglobin 11.7 g/dL (14.0-18.0); Immature Granulocytes # (auto) 0.12 K/uL (0.00-0.02); Immature Granulocytes % (auto) 0.9 %; Lymphocytes % (auto) 6.3 %; Mean Corpuscular Hemoglobin 30.4 pg (25-34); Mean Corpuscular Hgb Conc 31.7 g/dL (32-36); Mean Corpuscular Volume 95.8 fL (80-100); Mean Platelet Volume 10.2 fL (7.4-10.4); Monocytes # (auto) 0.65 K/uL (0.11-0.59); Monocytes % (auto) 5.1 %; Neutrophils # (auto) 11.09 K/uL (1.4-6.5); Neutrophils % (auto) 87.6 %; Platelet Count 181 K/uL (130-400); RDW Coefficient of Variation 13.6 % (11.5-14.5); RDW Standard Deviation 47.6 fL (36.4-46.3); Red Blood Count 3.85 M/uL (4.7-6.1); White Blood Count 12.67 K/uL (4.8-10.8)
[2021-06-19] MEDS: ALBUT/IPRATROP 3MG/0.5MG NEB 3 ML VIAL NEB SCH ×4 (07:01→19:10)
[2021-06-19 07:33] LABS: BUN Creatinine Ratio 21.9 (10-20); Blood Urea Nitrogen 20 mg/dl (7-18); Calcium 9.8 mg/dl (8.5-10.1); Carbon Dioxide 40 mmol/L (21-32); Chloride 92 mmol/L (98-107); Est GFR (African American) 96.6 ml/min; Est GFR (Non-African American) 83.4 ml/min; Glucose 152 mg/dl (70-99); Magnesium 2.7 mg/dl (1.8-2.4); Potassium 4.5 mmol/L (3.5-5.1); Sodium 135 mmol/L (136-145)
[2021-06-19 07:34] LABS: Phosphorus 2.8 mg/dl (2.5-4.9)
[2021-06-19] MEDS: DOXYCYCLINE HYCLATE 100 MG CAP PO SCH (09:26)
[2021-06-19] MEDS: ASPIRIN 81 MG ECTAB PO SCH (09:26)
[2021-06-19] MEDS: dilTIAZem HCL 240 MG CAPCR PO SCH (09:26)
[2021-06-19] MEDS: CHOLECALCIFEROL 1,000 UNITS 25 MCG TAB PO SCH (09:26)
[2021-06-19] MEDS: methylPREDNISolone 40 MG in SYRINGE 0 ML IV SCH ×2 (09:26→19:45)
[2021-06-19] MEDS: ISOSORBIDE MONO EXTENDED REL 30 MG TABCR PO SCH (09:27)
[2021-06-19] MEDS: PANTOprazole 40 MG TAB PO SCH ×2 (09:27→19:47)
[2021-06-19] MEDS: guaiFENesin 600 MG TABCR PO SCH ×2 (09:27→19:47)
[2021-06-19] MEDS: FLUTICASONE/VILANTEROL 100/25MCG 14 PUFFS/INHALER INH SCH (09:28)
[2021-06-19] MEDS: UMECLIDINIUM BROMIDE 62.5MCG/BLISTER 7 PUFFS/INHALER INH SCH (09:28)
[2021-06-19] MEDS: ENOXAPARIN INJ 40 MG/0.4 ML SYR SQ SCH (15:03)
--- NOTE | 2021-06-19 16:58 | Hospitalist Progress Note ---
Date of Service June 19, 2021 Assessment & Plan (1) Acute on chronic respiratory failure: Plan: Management as below (2) COPD (chronic obstructive pulmonary disease) with emphysema: Plan: Patient is 71y/o M with PMH chronic respiratory failure, COPD on chronic 6 L O2, HTN, cirrhosis, depression, anxiety, PTSD, h/o tobacco use, chronic anemia presented to ER with complaint of increased shortness of breath for the past 3 days and reported pulse ox down to the 60s at home Today in ER patient afebrile, P: 98, R: 32, BP 124/76, 56% on room air. Patient was initially placed on nonrebreather with sats up to 98%. Following admission he was on oxygen mask 6 L with sats 92-95%. No leukocytosis. Negative COVID-19 PCR, negative influenza and RSV PCR. CXR: No consolidation, chronic emphysema changes, chronic interstitial changes at lung bases, evidence of pulmonary hypertension In ER received Solu-Medrol 125 mg IV, hour-long neb Solu-Medrol 40 mg IV every 8 H was continued and later on decreased to follow milligram once daily from 06/15/2021 Will continue home azithromycin on Saturday basis following discharge Obtain procalcitonin-less than 0.05 Obtain ABG,-7.3 on 5 L of oxygen Scheduled DuoNebs Continue supplemental oxygen Continue BiPAP at bedtime Incentive spirometry, flutter valve Continue home Symbicort. Will hold Spiriva as getting scheduled DuoNebs Pulmonology consult-appreciate input and recommendation [place] Patient reports does not want intubation or mechanical ventilation Clinically a little bit better We will continue doxycycline for 5 days We will get PT and OT evaluation and may need placement He has been requiring 10 L of oxygen to maintain saturation He wants to go home but not yet ready-we will continue current management Clinically little worse with increasing wheezing and shortness of breath and requiring more oxygen We will increase Solu-Medrol to 40 mg twice daily and given nebulized bronchodilator treatment now He also received a dose of Lasix for more diuresis Remains stable and has been requiring up to 9 L of oxygen to maintain saturation CO2 is little elevated may be secondary to use of Lasix PT recommendation on 06/16/2021 was to go home We will continue with nocturnal BiPAP today as CO2 level remains at 40 Clinically much better and feels a lot better (3) HTN (hypertension): Plan: Continue diltiazem (4) Depression: Plan: Continue buspirone, sertraline, trazodone DVT Prophylaxis Lovenox SQ Conditional code - Is DNI, wants CPR as per discussion with pt Admission and Anticipated Discharge Date Admission Date: June 14, 2021 Subjective 06/15/2021 The patient was seen and examined in telemetry unit He has had episode of desaturation last night and required extra care He has been feeling better this morning Has shortness of breath but denies any pain, any nausea and or vomiting 06/16/2021 The patient was seen and examined in telemetry unit He has been feeling reasonably well and is requiring 10 L of oxygen via oxygen mask to maintain saturation He wants to go home but is not yet at his baseline We will get PT and OT evaluation 06/17/2021 The patient was seen and examined in telemetry unit His condition got worse last night and required high flow oxygen Complains a lot of wheezing today and oxygen requirements remains at 9 L/min Denies any chest pain and/or palpitation 06/18/2021 The patient was seen and examined in telemetry unit He remains reasonably stable but is still requiring high flow oxygen to maintain saturation His CO2 level is slightly elevated this morning but denies any drowsiness 06/19/2021 The patient was seen and examined in telemetry unit He has been feeling a lot better and wants to go home but unfortunately requiring 10 L of oxygen to maintain saturation He will be given nocturnal BiPAP treatment today Review of Systems Review of Systems: All systems reviewed and are unremarkable except as noted below Respiratory: Moderate shortness of breath at rest with audible wheezing Physical Exam Physical Exam: Lying in bed with moderate shortness of breath Constitutional: + ill appearing and average body habitus Eyes: PERRL, conjunctivae normal, anicteric sclerae ENMT: external ear and nose normal, oropharynx normal Neck: trachea midline, no thyromegaly Respiratory: + respiratory distress; no labored breathing Auscultation: + diminished lung sounds, + crackles (Bibasilar crackles) and + wheezes (Moderate wheezing bilaterally) Cardiovascular: Rate/Rhythm: regular rate and regular rhythm; not tachycardic Heart Sounds: normal S1 and normal S2; no murmur Extremities: no edema Gastrointestinal (Abdomen): Inspection/Auscultation: normal bowel sounds; abdomen not distended Percussion/Palpation: abdomen soft; abdomen nontender Musculoskeletal: No acute arthritis in any joint Neurologic: PERRL, EOMI, accommodation nl, no face palsy, no dysarthria Lymphatic: no cervical or axillary lymphadenopathy Results & Data Results & Data ([facility]) Vital Signs (Past 12 Hours) Vital Signs Temp Pulse Pulse Resp BP Pulse Ox Pulse Ox 06/19/21 16:48 36.6 C 92 H 24 139/78 90 06/19/21 15:00 91 06/19/21 14:35 88 18 91 06/19/21 11:57 36.4 C L 90 24 148/86 H 90 06/19/21 10:50 79 20 84 L 06/19/21 09:00 69 06/19/21 08:10 36.6 C 91 H 22 152/80 H 90 06/19/21 07:01 74 18 93 Laboratory Results Short CBC 06/19/21 Range/Units 05:49 WBC 12.67 H (4.8-10.8) K/uL Hgb 11.7 L (14.0-18.0) g/dL Hct 36.9 L (42-52) % Plt Count 181 (130-400) K/uL BMP 06/19/21 05:49 Sodium 135 L Potassium 4.5 Chloride 92 L Carbon Dioxide 40 H BUN 20 H Creatinine 0.92 Glucose 152 H Calcium 9.8 Medications Administered Current Inpatient Medications Acetaminophen (Acetaminophen 325 Mg Tab) 650 mg PO Q4H PRN PRN Reason: Pain or Fever Stop: 07/14/21 13:39 Albuterol (Albut/Ipratrop 3mg/0.5mg Neb 3 Ml Vial) 3 ml NEB QIDR [facility]; Protocol Stop: 07/14/21 14:59 Last Admin: 06/19/21 14:35 Dose: 3 ml Documented by: Aspirin (Aspirin 81 Mg Ectab) 81 mg PO QAM [facility] Stop: 07/15/21 08:59 Last Admin: 06/19/21 09:26 Dose: 81 mg Documented by: Buspirone HCl (Buspirone 5 Mg Tab) 5 mg PO QPM [facility] Stop: 07/14/21 20:59 Last Admin: 06/18/21 20:37 Dose: 5 mg Documented by: Diltiazem HCl (Diltiazem Hcl 240 Mg Capcr) 240 mg PO QAM [facility] Stop: 07/14/21 13:59 Last Admin: 06/19/21 09:26 Dose: 240 mg Documented by: Doxycycline Hyclate (Doxycycline Hyclate 100 Mg Cap) 100 mg PO BID [facility] Stop: 06/19/21 20:59 Last Admin: 06/19/21 09:26 Dose: 100 mg Documented by: Enoxaparin Sodium (Enoxaparin Inj 40 Mg/0.4 Ml Syr) 40 mg SQ Q24H [facility] Stop: 07/14/21 13:59 Last Admin: 06/19/21 15:03 Dose: 40 mg Documented by: Fluticasone/Vilanterol (Fluticasone/Vilanterol 100/25mcg 14 Puffs/Inhaler) 1 puffs INH DAILY [facility]; Protocol Stop: 07/15/21 08:59 Last Admin: 06/19/21 09:28 Dose: 1 puffs Documented by: Guaifenesin (Guaifenesin 600 Mg Tabcr) 600 mg PO Q12 [facility] Stop: 07/14/21 20:59 Last Admin: 06/19/21 09:27 Dose: 600 mg Documented by: Methylprednisolone 40 mg/ (Syringe) 0.64 mls @ 1.5 mls/min IV BID [facility] Stop: 07/17/21 20:59 Last Admin: 06/19/21 09:26 Dose: 1.5 mls/min Documented by: Isosorbide Mononitrate (Isosorbide [place] Extended Rel 30 Mg Tabcr) 30 mg PO QAM [facility] Stop: 07/15/21 08:59 Last Admin: 06/19/21 09:27 Dose: 30 mg Documented by: Pantoprazole Sodium (Pantoprazole 40 Mg Tab) 40 mg PO BID [facility]; Protocol Stop: 07/14/21 20:59 Last Admin: 06/19/21 09:27 Dose: 40 mg Documented by: Polyethylene Glycol (Polyethylene (Miralax) 17 Gm Pack) 17 gm PO DAILY PRN PRN Reason: Constipation Stop: 07/14/21 13:39 Sertraline HCl (Sertraline Hcl 100 Mg Tablet) 200 mg PO HS [facility] Stop: 07/14/21 20:59 Last Admin: 06/18/21 20:38 Dose: 200 mg Documented by: Tramadol HCl (Tramadol Hcl 50 Mg Tablet) 25 mg PO Q6H PRN PRN Reason: Pain Stop: 07/15/21 11:14 Last Admin: 06/18/21 20:54 Dose: 25 mg Documented by: Trazodone HCl (Trazodone Hcl 50 Mg Tab) 150 mg PO [facility] Stop: 07/14/21 20:59 Last Admin: 06/18/21 20:42 Dose: 150 mg Documented by: Umeclidinium [place] (Umeclidinium [place] 62.5mcg/Blister 7 Puffs/Inhaler) 1 puffs INH DAILY [facility] Stop: 07/15/21 08:59 Last Admin: 06/19/21 09:28 Dose: 1 puffs Documented by: Vitamin D (Cholecalciferol 1,000 Units 25 Mcg Tab) 1,000 units PO QAM [facility] Stop: 07/15/21 08:59 Last Admin: 06/19/21 09:26 Dose: 1,000 units Documented by:
--- NOTE | 2021-06-19 16:58 | Communication Note ---
Date of Service: June 19, 2021
--- NOTE | 2021-06-19 16:58 | Communication Note ---
Date of Service: June 19, 2021 Please use BiPAP at night
[2021-06-19] MEDS: SERTRALINE HCL 100 MG TABLET PO SCH (19:46)
[2021-06-19] MEDS: busPIRone 5 MG TAB PO SCH (19:47)
[2021-06-19] MEDS: traMADol HCL 50 MG TABLET PO PRN (19:53)
[2021-06-19] MEDS: traZODone HCL 50 MG TAB PO SCH (19:54)
[2021-06-20] MEDS: traMADol HCL 50 MG TABLET PO PRN ×2 (01:41→21:23)
[2021-06-20] MEDS: ALBUT/IPRATROP 3MG/0.5MG NEB 3 ML VIAL NEB SCH ×4 (07:13→19:32)
[2021-06-20 07:16] LABS: BUN Creatinine Ratio 25.3 (10-20); Blood Urea Nitrogen 22 mg/dl (7-18); Calcium 9.8 mg/dl (8.5-10.1); Carbon Dioxide 37 mmol/L (21-32); Chloride 92 mmol/L (98-107); Est GFR (African American) 100.6 ml/min; Est GFR (Non-African American) 86.8 ml/min; Glucose 149 mg/dl (70-99); Potassium 4.2 mmol/L (3.5-5.1); Sodium 133 mmol/L (136-145)
[2021-06-20] MEDS: FLUTICASONE/VILANTEROL 100/25MCG 14 PUFFS/INHALER INH SCH (08:09)
[2021-06-20] MEDS: ISOSORBIDE MONO EXTENDED REL 30 MG TABCR PO SCH (08:09)
[2021-06-20] MEDS: guaiFENesin 600 MG TABCR PO SCH ×2 (08:09→21:15)
[2021-06-20] MEDS: methylPREDNISolone 40 MG in SYRINGE 0 ML IV SCH (08:09)
[2021-06-20] MEDS: dilTIAZem HCL 240 MG CAPCR PO SCH (08:09)
[2021-06-20] MEDS: ASPIRIN 81 MG ECTAB PO SCH (08:09)
[2021-06-20] MEDS: UMECLIDINIUM BROMIDE 62.5MCG/BLISTER 7 PUFFS/INHALER INH SCH (08:09)
[2021-06-20] MEDS: PANTOprazole 40 MG TAB PO SCH ×2 (08:09→21:16)
[2021-06-20] MEDS: CHOLECALCIFEROL 1,000 UNITS 25 MCG TAB PO SCH (08:09)
[2021-06-20] MEDS: ENOXAPARIN INJ 40 MG/0.4 ML SYR SQ SCH (13:45)
--- NOTE | 2021-06-20 15:22 | Hospitalist Progress Note ---
Date of Service June 20, 2021 Assessment & Plan (1) Acute on chronic respiratory failure: Plan: Management as below (2) COPD (chronic obstructive pulmonary disease) with emphysema: Plan: Patient is 71y/o M with PMH chronic respiratory failure, COPD on chronic 6 L O2, HTN, cirrhosis, depression, anxiety, PTSD, h/o tobacco use, chronic anemia presented to ER with complaint of increased shortness of breath for the past 3 days and reported pulse ox down to the 60s at home Today in ER patient afebrile, P: 98, R: 32, BP 124/76, 56% on room air. Patient was initially placed on nonrebreather with sats up to 98%. Following admission he was on oxygen mask 6 L with sats 92-95%. No leukocytosis. Negative COVID-19 PCR, negative influenza and RSV PCR. CXR: No consolidation, chronic emphysema changes, chronic interstitial changes at lung bases, evidence of pulmonary hypertension In ER received Solu-Medrol 125 mg IV, hour-long neb Solu-Medrol 40 mg IV every 8 H was continued and later on decreased to follow milligram once daily from 06/15/2021 Will continue home azithromycin on Saturday basis following discharge Obtain procalcitonin-less than 0.05 Obtain ABG,-7.3 on 5 L of oxygen Scheduled DuoNebs Continue supplemental oxygen Continue BiPAP at bedtime Incentive spirometry, flutter valve Continue home Symbicort. Will hold Spiriva as getting scheduled DuoNebs Pulmonology consult-appreciate input and recommendation [place] [facility] [place] Patient reports does not want intubation or mechanical ventilation Clinically a little bit better We will continue doxycycline for 5 days We will get PT and OT evaluation and may need placement He has been requiring 10 L of oxygen to maintain saturation He wants to go home but not yet ready-we will continue current management Clinically little worse with increasing wheezing and shortness of breath and requiring more oxygen We will increase Solu-Medrol to 40 mg twice daily and given nebulized bronchodilator treatment now He also received a dose of Lasix for more diuresis Remains stable and has been requiring up to 9 L of oxygen to maintain saturation CO2 is little elevated may be secondary to use of Lasix PT recommendation on 06/16/2021 was to go home Tolerated BiPAP last night with difficulty and wants to have sleep medications tonight CO2 level is gone down to 37 and he has been feeling a lot better with the use of BiPAP last night He wants to go home-he was told that when the oxygen requirements come down to around 4 it would be safer for him to go home We will give him melatonin tonight Will decrease methylprednisone to once daily (3) HTN (hypertension): Plan: Continue diltiazem (4) Depression: Plan: Continue buspirone, sertraline, trazodone DVT Prophylaxis Lovenox SQ Conditional code - Is DNI, wants CPR as per discussion with pt Admission and Anticipated Discharge Date Admission Date: June 14, 2021 Subjective 06/15/2021 The patient was seen and examined in telemetry unit He has had episode of desaturation last night and required extra care He has been feeling better this morning Has shortness of breath but denies any pain, any nausea and or vomiting 06/16/2021 The patient was seen and examined in telemetry unit He has been feeling reasonably well and is requiring 10 L of oxygen via oxygen mask to maintain saturation He wants to go home but is not yet at his baseline We will get PT and OT evaluation 06/17/2021 The patient was seen and examined in telemetry unit His condition got worse last night and required high flow oxygen Complains a lot of wheezing today and oxygen requirements remains at 9 L/min Denies any chest pain and/or palpitation 06/18/2021 The patient was seen and examined in telemetry unit He remains reasonably stable but is still requiring high flow oxygen to maintain saturation His CO2 level is slightly elevated this morning but denies any drowsiness 06/19/2021 The patient was seen and examined in telemetry unit He has been feeling a lot better and wants to go home but unfortunately requiring 10 L of oxygen to maintain saturation He will be given nocturnal BiPAP treatment today 06/20/2021 The patient was seen and examined in telemetry unit He has been feeling much better but he still requires about 8 L of oxygen to maintain saturation He has had BiPAP last night He wants to have medicine to sleep tonight that he can use the BiPAP Review of Systems Review of Systems: All systems reviewed and are unremarkable except as noted below Respiratory: Moderate shortness of breath at rest with audible wheezing Physical Exam Physical Exam: Lying in bed with moderate shortness of breath Constitutional: + ill appearing and average body habitus Eyes: PERRL, conjunctivae normal, anicteric sclerae ENMT: external ear and nose normal, oropharynx normal Neck: trachea midline, no thyromegaly Respiratory: + respiratory distress; no labored breathing Auscultation: + diminished lung sounds, + crackles (Bibasilar crackles) and + wheezes (Moderate wheezing bilaterally) Cardiovascular: Rate/Rhythm: regular rate and regular rhythm; not tachycardic Heart Sounds: normal S1 and normal S2; no murmur Extremities: no edema Gastrointestinal (Abdomen): Inspection/Auscultation: normal bowel sounds; abdomen not distended Percussion/Palpation: abdomen soft; abdomen nontender Musculoskeletal: No acute arthritis in any joint Neurologic: PERRL, EOMI, accommodation nl, no face palsy, no dysarthria Lymphatic: no cervical or axillary lymphadenopathy Results & Data Results & Data ([facility]) Vital Signs (Past 12 Hours) Vital Signs Temp Pulse Pulse Resp BP Pulse Ox 06/20/21 14:53 73 18 91 06/20/21 11:38 87 18 96 06/20/21 11:37 36.7 C 77 20 141/63 H 97 06/20/21 08:16 36.6 C 79 18 132/68 98 06/20/21 08:00 73 06/20/21 07:14 65 18 95 06/20/21 03:40 36.4 C L 71 18 149/71 H 94 Diagnostic Findings BMP 06/20/21 06:00 Sodium 133 L Potassium 4.2 Chloride 92 L Carbon Dioxide 37 H BUN 22 H Creatinine 0.87 Glucose 149 H Calcium 9.8 Medications Administered Current Inpatient Medications Acetaminophen (Acetaminophen 325 Mg Tab) 650 mg PO Q4H PRN PRN Reason: Pain or Fever Stop: 07/14/21 13:39 Albuterol (Albut/Ipratrop 3mg/0.5mg Neb 3 Ml Vial) 3 ml NEB QIDR REPLACED BY [facility]; Protocol Stop: 07/14/21 14:59 Last Admin: 06/20/21 14:53 Dose: 3 ml Documented by: Aspirin (Aspirin 81 Mg Ectab) 81 mg PO [facility] Stop: 07/15/21 08:59 Last Admin: 06/20/21 08:09 Dose: 81 mg Documented by: Buspirone HCl (Buspirone 5 Mg Tab) 5 mg PO QPM [facility]PL[facility] Stop: 07/14/21 20:59 Last Admin: 06/19/21 19:47 Dose: 5 mg Documented by: Diltiazem HCl (Diltiazem Hcl 240 Mg Capcr) 240 mg PO QAM [facility] Stop: 07/14/21 13:59 Last Admin: 06/20/21 08:09 Dose: 240 mg Documented by: Enoxaparin Sodium (Enoxaparin Inj 40 Mg/0.4 Ml Syr) 40 mg SQ Q24H [facility] Stop: 07/14/21 13:59 Last Admin: 06/20/21 13:45 Dose: 40 mg Documented by: Fluticasone/Vilanterol (Fluticasone/Vilanterol 100/25mcg 14 Puffs/Inhaler) 1 puffs INH DAILY [facility]; Protocol Stop: 07/15/21 08:59 Last Admin: 06/20/21 08:09 Dose: 1 puffs Documented by: Guaifenesin (Guaifenesin 600 Mg Tabcr) 600 mg PO Q12 [facility] Stop: 07/14/21 20:59 Last Admin: 06/20/21 08:09 Dose: 600 mg Documented by: Methylprednisolone 40 mg/ (Syringe) 0.64 mls @ 1.5 mls/min IV BID [facility] Stop: 07/17/21 20:59 Last Admin: 06/20/21 08:09 Dose: 1.5 mls/min Documented by: Isosorbide Mononitrate (Isosorbide [place] Extended Rel 30 Mg Tabcr) 30 mg PO QAM [facility]PL[facility] Stop: 07/15/21 08:59 Last Admin: 06/20/21 08:09 Dose: 30 mg Documented by: Pantoprazole Sodium (Pantoprazole 40 Mg Tab) 40 mg PO BID [facility]; Protocol Stop: 07/14/21 20:59 Last Admin: 06/20/21 08:09 Dose: 40 mg Documented by: Polyethylene Glycol (Polyethylene (Miralax) 17 Gm Pack) 17 gm PO DAILY PRN PRN Reason: Constipation Stop: 07/14/21 13:39 Sertraline HCl (Sertraline Hcl 100 Mg Tablet) 200 mg PO HS [facility]PL[facility] Stop: 07/14/21 20:59 Last Admin: 06/19/21 19:46 Dose: 200 mg Documented by: Tramadol HCl (Tramadol Hcl 50 Mg Tablet) 25 mg PO Q6H PRN PRN Reason: Pain Stop: 07/15/21 11:14 Last Admin: 06/20/21 01:41 Dose: 25 mg Documented by: Trazodone HCl (Trazodone Hcl 50 Mg Tab) 150 mg PO HS [facility] Stop: 07/14/21 20:59 Last Admin: 06/19/21 19:54 Dose: 150 mg Documented by: Umeclidinium [place] (Umeclidinium [place] 62.5mcg/Blister 7 Puffs/Inhaler) 1 puffs INH DAILY [facility] Stop: 07/15/21 08:59 Last Admin: 06/20/21 08:09 Dose: 1 puffs Documented by: Vitamin D (Cholecalciferol 1,000 Units 25 Mcg Tab) 1,000 units PO QAM [facility]PL[facility] Stop: 07/15/21 08:59 Last Admin: 06/20/21 08:09 Dose: 1,000 units Documented by:
[2021-06-20] MEDS ORDERED: ZOLPIDEM TARTRATE 5 MG TAB PO STA (21:14)
[2021-06-20] MEDS: SERTRALINE HCL 100 MG TABLET PO SCH (21:15)
[2021-06-20] MEDS: busPIRone 5 MG TAB PO SCH (21:16)
[2021-06-20] MEDS: traZODone HCL 50 MG TAB PO SCH (21:23)
[2021-06-21] MEDS: ALBUT/IPRATROP 3MG/0.5MG NEB 3 ML VIAL NEB SCH ×4 (07:09→20:37)
[2021-06-21] MEDS: methylPREDNISolone 40 MG in SYRINGE 0 ML IV SCH (07:48)
[2021-06-21] MEDS: dilTIAZem HCL 240 MG CAPCR PO SCH (07:49)
[2021-06-21] MEDS: ASPIRIN 81 MG ECTAB PO SCH (07:49)
[2021-06-21] MEDS: CHOLECALCIFEROL 1,000 UNITS 25 MCG TAB PO SCH (07:49)
[2021-06-21] MEDS: ISOSORBIDE MONO EXTENDED REL 30 MG TABCR PO SCH (07:49)
[2021-06-21] MEDS: PANTOprazole 40 MG TAB PO SCH ×2 (07:49→21:57)
[2021-06-21] MEDS: guaiFENesin 600 MG TABCR PO SCH ×2 (07:49→21:58)
[2021-06-21] MEDS: FLUTICASONE/VILANTEROL 100/25MCG 14 PUFFS/INHALER INH SCH (07:50)
[2021-06-21] MEDS: UMECLIDINIUM BROMIDE 62.5MCG/BLISTER 7 PUFFS/INHALER INH SCH (07:50)
[2021-06-21] MEDS: ENOXAPARIN INJ 40 MG/0.4 ML SYR SQ SCH (14:06)
--- NOTE | 2021-06-21 19:12 | Hospitalist Progress Note ---
Date of Service June 21, 2021 Assessment & Plan (1) Acute on chronic respiratory failure: Plan: Management as below (2) COPD (chronic obstructive pulmonary disease) with emphysema: Plan: Patient is a 71 yr male with H/O Chronic respiratory failure, COPD on chronic 6 L O2, HTN, cirrhosis, depression, anxiety, PTSD, h/o tobacco use, chronic anemia presented to ER with complaint of increased shortness of breath for the past 3 days and reported pulse ox down to the 60s at home Acute on chronic respiratory failure with hypoxia/hypercapnia Chronic oxygen dependency--6 L at baseline Acute COPD exacerbation Negative COVID-19 PCR, negative influenza and RSV PCR. 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 as per pulmonary Continue IV Solu-Medrol Continue supplemental oxygen Plan to continue home azithromycin on Saturday basis following discharge Procalcitonin-less than 0.05 Continue DuoNebs Continue BiPAP at bedtime Incentive spirometry, flutter valve Continue home Symbicort Appreciate Pulmonology Input Received doxycycline for 5 days Needs 2 step prior to discharge Titrate oxygen to keep oxygen saturation 88-92% (3) HTN (hypertension): Plan: Continue diltiazem (4) Depression: Plan: Continue buspirone, sertraline, trazodone DVT Prophylaxis Lovenox SQ Code Status Conditional code Is DNI, wants CPR as per discussion Admission and Anticipated Discharge Date Admission Date: June 14, 2021 Subjective Patient is seen and examined at bedside States feeling better today Currently on 6 L supplemental oxygen Reports minimal cough Denies any dyspnea, dizziness, nausea, abdominal pain Review of Systems Review of Systems: All systems reviewed & are unremarkable except as noted in Subjective Physical Exam Physical Exam: Physical Exam: Vitals signs as noted above General Appearance:Chronic ill appearing, no apparent distress Head: normocephalic, Atraumatic Eyes: normal inspection, EOMI Neck: supple, Trachea midline Respiratory/Chest: Decreased breath sounds, CTA, No accessory muscle use Cardiovascular: S1, S2, No murmur Abdomen/GI:Soft, Non tender, Bowel sounds present Extremities/Musculoskeletal:normal inspection, no edema Neurologic/Psych:AAOX3, grossly no focal neurological deficits Skin: normal color, warm Results & Data Results & Data [facility]) Vital Signs (Past 12 Hours) Vital Signs Temp Pulse Pulse Resp BP Pulse Ox Pulse Ox 06/21/21 16:41 37.0 C 77 18 109/71 98 06/21/21 16:00 79 06/21/21 15:00 91 06/21/21 14:56 77 20 91 06/21/21 11:00 37.0 C 69 18 136/69 97 06/21/21 10:42 81 20 89 L 06/21/21 08:00 73 06/21/21 07:56 36.7 C 88 16 124/68 97 06/21/21 07:10 79 20 92
[2021-06-21] MEDS: busPIRone 5 MG TAB PO SCH (21:57)
[2021-06-21] MEDS: SERTRALINE HCL 100 MG TABLET PO SCH (21:57)
[2021-06-21] MEDS: traZODone HCL 50 MG TAB PO SCH (22:02)
[2021-06-21] MEDS: traMADol HCL 50 MG TABLET PO PRN (22:02)
[2021-06-21] MEDS ORDERED: LORazepam 0.5 MG TAB PO STA (22:56)
[2021-06-22 06:48] LABS: Anion Gap 5 (3-11); BUN Creatinine Ratio 25.3 (10-20); Blood Urea Nitrogen 20 mg/dl (6-23); Calcium 8.7 mg/dl (8.5-10.1); Carbon Dioxide 40 mmol/L (21-32); Chloride 94 mmol/L (98-107); Est GFR (African American) 104.7 ml/min; Est GFR (Non-African American) 90.3 ml/min; Glucose 123 mg/dl (70-99); Sodium 139 mmol/L (136-145)
[2021-06-22] MEDS: ALBUT/IPRATROP 3MG/0.5MG NEB 3 ML VIAL NEB SCH ×4 (07:14→19:42)
[2021-06-22] MEDS: PANTOprazole 40 MG TAB PO SCH ×2 (08:26→21:03)
[2021-06-22] MEDS: ASPIRIN 81 MG ECTAB PO SCH (08:26)
[2021-06-22] MEDS: guaiFENesin 600 MG TABCR PO SCH ×2 (08:26→21:03)
[2021-06-22] MEDS: CHOLECALCIFEROL 1,000 UNITS 25 MCG TAB PO SCH (08:26)
[2021-06-22] MEDS: dilTIAZem HCL 240 MG CAPCR PO SCH (08:26)
[2021-06-22] MEDS: ISOSORBIDE MONO EXTENDED REL 30 MG TABCR PO SCH (08:26)
[2021-06-22] MEDS: methylPREDNISolone 40 MG in SYRINGE 0 ML IV SCH (08:26)
[2021-06-22] MEDS: UMECLIDINIUM BROMIDE 62.5MCG/BLISTER 7 PUFFS/INHALER INH SCH (08:27)
[2021-06-22] MEDS: FLUTICASONE/VILANTEROL 100/25MCG 14 PUFFS/INHALER INH SCH (08:27)
[2021-06-22] MEDS: traMADol HCL 50 MG TABLET PO PRN ×2 (12:02→21:12)
[2021-06-22] MEDS: ENOXAPARIN INJ 40 MG/0.4 ML SYR SQ SCH (16:10)
--- NOTE | 2021-06-22 18:33 | Hospitalist Progress Note ---
Date of Service June 22, 2021 Assessment & Plan (1) Acute on chronic respiratory failure: Plan: Management as below (2) COPD (chronic obstructive pulmonary disease) with emphysema: Plan: Patient is a 71 yr male with H/O Chronic respiratory failure, COPD on chronic 6 L O2, HTN, cirrhosis, depression, anxiety, PTSD, h/o tobacco use, chronic anemia presented to ER with complaint of increased shortness of breath for the past 3 days and reported pulse ox down to the 60s at home Acute on chronic respiratory failure with hypoxia/hypercapnia Chronic oxygen dependency--6 L at baseline Acute COPD exacerbation Negative COVID-19 PCR, negative influenza and RSV PCR. 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 Received IV Solu-Medrol Continue supplemental oxygen Plan to continue home azithromycin on Saturday basis following discharge Procalcitonin-less than 0.05 Continue DuoNebs Continue BiPAP at bedtime Incentive spirometry, flutter valve Continue home Symbicort Appreciate Pulmonology Input Received doxycycline for 5 days Needs 2 step prior to discharge Titrate oxygen to keep oxygen saturation 88-92% Currently on 6 to 8 L supplemental oxygen Transition IV Solu-Medrol to prednisone tomorrow (3) HTN (hypertension): Plan: Continue diltiazem (4) Depression: Plan: Continue buspirone, sertraline, trazodone DVT Prophylaxis Lovenox SQ Code Status Conditional code Is DNI, wants CPR as per discussion Admission and Anticipated Discharge Date Admission Date: June 14, 2021 Subjective Patient is seen and examined at bedside No significant change symptomatically per patient Currently on 6 to 8 L supplemental oxygen Continues to have cough with minimal expectoration Denies any dyspnea, dizziness, nausea, abdominal pain Eager to get discharged Review of Systems Review of Systems: All systems reviewed & are unremarkable except as noted in Subjective Physical Exam Physical Exam: Physical Exam: Vitals signs as noted above General Appearance:Chronic ill appearing, no apparent distress Head: normocephalic, Atraumatic Eyes: normal inspection, EOMI Neck: supple, Trachea midline Respiratory/Chest: Decreased breath sounds, CTA, No accessory muscle use Cardiovascular: S1, S2, No murmur Abdomen/GI:Soft, Non tender, Bowel sounds present Extremities/Musculoskeletal:normal inspection, no edema Neurologic/Psych:AAOX3, grossly no focal neurological deficits Skin: normal color, warm Results & Data Results & Data ([facility]) Vital Signs (Past 12 Hours) Vital Signs Temp Pulse Pulse Resp BP BP Pulse Ox 06/22/21 15:26 36.6 C 89 22 128/71 90 06/22/21 15:00 06/22/21 14:47 77 18 93 06/22/21 10:58 83 18 96 06/22/21 10:56 36.4 C L 79 19 137/80 96 06/22/21 10:30 72 06/22/21 07:27 36.3 C L 81 20 138/79 97 06/22/21 07:17 79 20 86 L Pulse Ox 06/22/21 15:26 06/22/21 15:00 90 06/22/21 14:47 06/22/21 10:58 06/22/21 10:56 06/22/21 10:30 06/22/21 07:27 06/22/21 07:17
[2021-06-22] MEDS: busPIRone 5 MG TAB PO SCH (21:03)
[2021-06-22] MEDS: SERTRALINE HCL 100 MG TABLET PO SCH (21:03)
[2021-06-22] MEDS: traZODone HCL 50 MG TAB PO SCH (21:11)
[2021-06-23] MEDS: ALBUT/IPRATROP 3MG/0.5MG NEB 3 ML VIAL NEB SCH ×4 (07:26→19:16)
[2021-06-23] MEDS: ASPIRIN 81 MG ECTAB PO SCH (07:48)
[2021-06-23] MEDS: CHOLECALCIFEROL 1,000 UNITS 25 MCG TAB PO SCH (07:48)
[2021-06-23] MEDS: predniSONE 20 MG TAB PO SCH (07:48)
[2021-06-23] MEDS: guaiFENesin 600 MG TABCR PO SCH ×2 (07:48→21:26)
[2021-06-23] MEDS: PANTOprazole 40 MG TAB PO SCH ×2 (07:48→21:27)
[2021-06-23] MEDS: UMECLIDINIUM BROMIDE 62.5MCG/BLISTER 7 PUFFS/INHALER INH SCH (07:49)
[2021-06-23] MEDS: dilTIAZem HCL 240 MG CAPCR PO SCH (07:49)
[2021-06-23] MEDS: ISOSORBIDE MONO EXTENDED REL 30 MG TABCR PO SCH (07:49)
[2021-06-23] MEDS: FLUTICASONE/VILANTEROL 100/25MCG 14 PUFFS/INHALER INH SCH (08:51)
[2021-06-23] MEDS: ENOXAPARIN INJ 40 MG/0.4 ML SYR SQ SCH (15:18)
[2021-06-23] MEDS: traMADol HCL 50 MG TABLET PO PRN ×2 (15:41→21:26)
--- NOTE | 2021-06-23 17:35 | Hospitalist Progress Note ---
Date of Service June 23, 2021 Assessment & Plan (1) Acute on chronic respiratory failure: Plan: Management as below (2) COPD (chronic obstructive pulmonary disease) with emphysema: Plan: Patient is a 71 yr male with H/O Chronic respiratory failure, COPD on chronic 6 L O2, HTN, cirrhosis, depression, anxiety, PTSD, h/o tobacco use, chronic anemia presented to ER with complaint of increased shortness of breath for the past 3 days and reported pulse ox down to the 60s at home Acute on chronic respiratory failure with hypoxia/hypercapnia Chronic oxygen dependency--6 L at baseline Acute COPD exacerbation Negative COVID-19 PCR, negative influenza and RSV PCR. 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 Received IV Solu-Medrol Continue supplemental oxygen Plan to continue home azithromycin on Saturday basis following discharge Procalcitonin-less than 0.05 Continue DuoNebs Continue BiPAP at bedtime Incentive spirometry, flutter valve Continue home Symbicort Appreciate Pulmonology Input Received doxycycline for 5 days Titrate oxygen to keep oxygen saturation 88-92% Continue prednisone taper course We will repeat chest x-ray tomorrow Will need 2 step prior to discharge (3) HTN (hypertension): Plan: Continue diltiazem (4) Depression: Plan: Continue buspirone, sertraline, trazodone DVT Prophylaxis Lovenox SQ Code Status Conditional code Is DNI, wants CPR as per discussion Admission and Anticipated Discharge Date Admission Date: June 14, 2021 Subjective Patient is seen and examined at bedside No new complaints Continues to have minimal cough Requires 6 to 8 L supplemental oxygen Denies any chest pain, dyspnea, dizziness, nausea, abdominal pain Review of Systems Review of Systems: All systems reviewed & are unremarkable except as noted in Subjective Physical Exam Physical Exam: Physical Exam: Vitals signs as noted above General Appearance:Chronic ill appearing, no apparent distress Head: normocephalic, Atraumatic Eyes: normal inspection, EOMI Neck: supple, Trachea midline Respiratory/Chest: Decreased breath sounds, CTA, No accessory muscle use Cardiovascular: S1, S2, No murmur Abdomen/GI:Soft, Non tender, Bowel sounds present Extremities/Musculoskeletal:normal inspection, no edema Neurologic/Psych:AAOX3, grossly no focal neurological deficits Skin: normal color, warm Results & Data Results & Data ([facility]) Vital Signs (Past 12 Hours) Vital Signs Temp Pulse Pulse Resp BP BP Pulse Ox 06/23/21 15:29 36.7 C 79 80 19 130/68 92 06/23/21 15:00 06/23/21 14:35 82 20 90 06/23/21 12:09 36.6 C 85 19 112/69 90 06/23/21 10:18 72 20 91 06/23/21 07:41 36.6 C 75 20 130/73 91 06/23/21 07:39 67 06/23/21 07:26 75 18 91 Pulse Ox 06/23/21 15:29 06/23/21 15:00 91 06/23/21 14:35 06/23/21 12:09 06/23/21 10:18 06/23/21 07:41 06/23/21 07:39 06/23/21 07:26
[2021-06-23] MEDS: busPIRone 5 MG TAB PO SCH (21:26)
[2021-06-23] MEDS: traZODone HCL 50 MG TAB PO SCH (21:26)
[2021-06-23] MEDS: SERTRALINE HCL 100 MG TABLET PO SCH (21:27)
[2021-06-23] MEDS: LORazepam 0.5 MG TAB PO PRN (22:21)
[2021-06-24] MEDS: ALBUT/IPRATROP 3MG/0.5MG NEB 3 ML VIAL NEB SCH ×4 (07:20→19:28)
--- NOTE | 2021-06-24 07:23 | XRay Report ---
XR chest 1V portable CLINICAL HISTORY: COPD COMPARISON STUDY: Chest CT May 11, 2021 chest radiograph June 14, 2021. FINDINGS: Note is made of emphysema. No pneumothorax or pleural effusion is noted. Cardiac size is no rmal. There is no evidence for pulmonary edema. Hilar enlargement is unchanged and due to dilated pul monary arteries. Lower lung interstitial thickening has slightly improved. IMPRESSION: 1. Interval improvement in lower lung interstitial thickening. 2. Emphysema. ACT 112: Negative or not required by law. Electronically signed by: Mode Solis M.D. 06/24/2021 7:22 AM
[2021-06-24] MEDS: CHOLECALCIFEROL 1,000 UNITS 25 MCG TAB PO SCH (08:30)
[2021-06-24] MEDS: PANTOprazole 40 MG TAB PO SCH ×2 (08:30→20:09)
[2021-06-24] MEDS: ASPIRIN 81 MG ECTAB PO SCH (08:31)
[2021-06-24] MEDS: ISOSORBIDE MONO EXTENDED REL 30 MG TABCR PO SCH (08:31)
[2021-06-24] MEDS: dilTIAZem HCL 240 MG CAPCR PO SCH (08:31)
[2021-06-24] MEDS: UMECLIDINIUM BROMIDE 62.5MCG/BLISTER 7 PUFFS/INHALER INH SCH (08:32)
[2021-06-24] MEDS: predniSONE 20 MG TAB PO SCH ×2 (08:32→08:42)
[2021-06-24] MEDS: guaiFENesin 600 MG TABCR PO SCH ×2 (08:32→20:09)
[2021-06-24] MEDS: FLUTICASONE/VILANTEROL 100/25MCG 14 PUFFS/INHALER INH SCH (08:33)
[2021-06-24 09:53] LABS: BUN Creatinine Ratio 21.3 (10-20); Calcium 8.3 mg/dl (8.5-10.1); Creatinine Clr Calc Pharmacy 95.1 ml/min; Est GFR (African American) 104.2 ml/min; Est GFR (Non-African American) 89.9 ml/min; Potassium 3.8 mmol/L (3.5-5.1)
[2021-06-24] MEDS ORDERED: TRIAMCINOLONE ACET 0.1% CR 80 GM TUBE EXT PRN (13:45)
[2021-06-24] MEDS: ENOXAPARIN INJ 40 MG/0.4 ML SYR SQ SCH (15:24)
[2021-06-24] MEDS: traMADol HCL 50 MG TABLET PO PRN (18:14)
[2021-06-24] MEDS ORDERED: ALUMINUM/MAGNESIUM/SIMETH (MAALOX MAX) 30 ML UDC PO PRN (18:30)
[2021-06-24] MEDS ORDERED: ALUMINUM/MAGNESIUM/SIMETH (MAALOX MAX) 30 ML UDC ONE (18:36)
--- NOTE | 2021-06-24 19:01 | Hospitalist Progress Note ---
Date of Service June 24, 2021 Assessment & Plan (1) Acute on chronic respiratory failure: Plan: Management as below (2) COPD (chronic obstructive pulmonary disease) with emphysema: Plan: Patient is a 71 yr male with H/O Chronic respiratory failure, COPD on chronic 6 L O2, HTN, cirrhosis, depression, anxiety, PTSD, h/o tobacco use, chronic anemia presented to ER with complaint of increased shortness of breath for the past 3 days and reported pulse ox down to the 60s at home Acute on chronic respiratory failure with hypoxia/hypercapnia Chronic oxygen dependency--6 L at baseline Acute COPD exacerbation Negative COVID-19 PCR, negative influenza and RSV PCR. 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 Received IV Solu-Medrol Continue supplemental oxygen Plan to continue home azithromycin on Saturday basis following discharge Procalcitonin-less than 0.05 Continue DuoNebs Continue BiPAP at bedtime Incentive spirometry, flutter valve Continue home Symbicort Appreciate Pulmonology Input Received doxycycline for 5 days Titrate oxygen to keep oxygen saturation 88-92% Continue methylprednisolone taper course Will need 2 step prior to discharge Chest x-ray today showed improving interstitial thickening Currently on 7 L supplemental oxygen (3) HTN (hypertension): Plan: Continue diltiazem (4) Depression: Plan: Continue buspirone, sertraline, trazodone DVT Prophylaxis Lovenox SQ Code Status Conditional code Is DNI, wants CPR as per discussion Admission and Anticipated Discharge Date Admission Date: June 14, 2021 Subjective Patient is seen and examined at bedside States feeling better this morning CXR showed improvement of interstitial thickening Intermittent cough Currently on 7 L supplemental oxygen Denies any chest pain, dyspnea, dizziness, nausea, abdominal pain Review of Systems Review of Systems: All systems reviewed & are unremarkable except as noted in Subjective Physical Exam Physical Exam: Physical Exam: Vitals signs as noted above General Appearance:Chronic ill appearing, no apparent distress Head: normocephalic, Atraumatic Eyes: normal inspection, EOMI Neck: supple, Trachea midline Respiratory/Chest: Decreased breath sounds, CTA, No accessory muscle use Cardiovascular: S1, S2, No murmur Abdomen/GI:Soft, Non tender, Bowel sounds present Extremities/Musculoskeletal:normal inspection, no edema Neurologic/Psych:AAOX3, grossly no focal neurological deficits Skin: normal color, warm Results & Data Results & Data ([facility]) Vital Signs (Past 12 Hours) Vital Signs Temp Pulse Pulse Resp BP BP Pulse Ox 06/24/21 18:18 36.4 C L 82 20 129/68 91 06/24/21 15:25 36.4 C L 82 19 131/67 90 06/24/21 14:09 74 18 90 06/24/21 12:31 92 06/24/21 11:20 36.4 C L 83 19 107/67 91 06/24/21 10:23 89 20 92 06/24/21 10:02 65 06/24/21 09:55 06/24/21 07:21 72 20 06/24/21 07:18 36.4 C L 80 21 145/69 H 90 Pulse Ox 06/24/21 18:18 06/24/21 15:25 06/24/21 14:09 06/24/21 12:31 06/24/21 11:20 06/24/21 10:23 06/24/21 10:02 06/24/21 09:55 94 06/24/21 07:21 06/24/21 07:18 Laboratory Results BMP 06/24/21 08:55 Sodium 137 Potassium 3.8 Chloride 94 L Carbon Dioxide 40 H BUN 17 Creatinine 0.80 Glucose 173 H Calcium 8.3 L
[2021-06-24] MEDS: busPIRone 5 MG TAB PO SCH (20:09)
[2021-06-24] MEDS: SERTRALINE HCL 100 MG TABLET PO SCH (20:09)
[2021-06-24] MEDS: traZODone HCL 50 MG TAB PO SCH (22:41)
[2021-06-24] MEDS: LORazepam 0.5 MG TAB PO PRN (22:41)
[2021-06-25] MEDS: ALBUT/IPRATROP 3MG/0.5MG NEB 3 ML VIAL NEB SCH ×4 (07:29→19:37)
[2021-06-25] MEDS: guaiFENesin 600 MG TABCR PO SCH ×2 (08:00→21:26)
[2021-06-25] MEDS: dilTIAZem HCL 240 MG CAPCR PO SCH (08:01)
[2021-06-25] MEDS: ASPIRIN 81 MG ECTAB PO SCH (08:03)
[2021-06-25] MEDS: UMECLIDINIUM BROMIDE 62.5MCG/BLISTER 7 PUFFS/INHALER INH SCH (08:03)
[2021-06-25] MEDS: CHOLECALCIFEROL 1,000 UNITS 25 MCG TAB PO SCH (08:03)
[2021-06-25] MEDS: ISOSORBIDE MONO EXTENDED REL 30 MG TABCR PO SCH (08:03)
[2021-06-25] MEDS: PANTOprazole 40 MG TAB PO SCH ×2 (08:03→21:26)
[2021-06-25] MEDS: FLUTICASONE/VILANTEROL 100/25MCG 14 PUFFS/INHALER INH SCH (08:04)
--- NOTE | 2021-06-25 14:45 | Hospitalist Progress Note ---
Date of Service June 25, 2021 Assessment & Plan (1) Acute on chronic respiratory failure: Plan: Management as below (2) COPD (chronic obstructive pulmonary disease) with emphysema: Plan: Patient is a 71 yr male with H/O Chronic respiratory failure, COPD on chronic 6 L O2, HTN, cirrhosis, depression, anxiety, PTSD, h/o tobacco use, chronic anemia presented to ER with complaint of increased shortness of breath for the past 3 days and reported pulse ox down to the 60s at home Acute on chronic respiratory failure with hypoxia/hypercapnia Chronic oxygen dependency--6 L at baseline Acute COPD exacerbation Negative COVID-19 PCR, negative influenza and RSV PCR. 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 transplant as per pulmonary Received IV Solu-Medrol Continue supplemental oxygen Plan to continue home azithromycin on Saturday basis following discharge Procalcitonin-less than 0.05 Continue DuoNebs Continue BiPAP at bedtime Incentive spirometry, flutter valve Continue home Symbicort Appreciate Pulmonology Input Received doxycycline for 5 days Titrate oxygen to keep oxygen saturation 88-92% Continue methylprednisolone taper course Repeat Chest x-ray showed improving interstitial thickening Currently on 6-7 L supplemental oxygen Will consider 2 step tomorrow (3) HTN (hypertension): Plan: Continue diltiazem (4) Depression: Plan: Continue buspirone, sertraline, trazodone DVT Prophylaxis Lovenox SQ Code Status Conditional code Is DNI, wants CPR as per discussion Admission and Anticipated Discharge Date Admission Date: June 14, 2021 Subjective Patient is seen and examined at bedside No new complaints Currently on 6-7 L supplemental oxygen Chronic cough Denies any chest pain, dyspnea, dizziness, nausea, abdominal pain Review of Systems Review of Systems: All systems reviewed & are unremarkable except as noted in Subjective Physical Exam Physical Exam: Physical Exam: Vitals signs as noted above General Appearance:Chronic ill appearing, no apparent distress Head: normocephalic, Atraumatic Eyes: normal inspection, EOMI Neck: supple, Trachea midline Respiratory/Chest: Decreased breath sounds, CTA, No accessory muscle use Cardiovascular: S1, S2, No murmur Abdomen/GI:Soft, Non tender, Bowel sounds present Extremities/Musculoskeletal:normal inspection, no edema Neurologic/Psych:AAOX3, grossly no focal neurological deficits Skin: normal color, warm Results & Data Results & Data ([facility]) Vital Signs (Past 12 Hours) Vital Signs Temp Pulse Pulse Resp BP BP Pulse Ox 06/25/21 11:25 36.8 C 83 20 148/64 H 92 06/25/21 11:24 78 18 91 06/25/21 09:00 06/25/21 07:50 74 06/25/21 07:30 89 15 90 06/25/21 07:16 36.7 C 77 20 125/74 97 06/25/21 04:58 92 06/25/21 04:49 36.5 C 74 18 137/76 06/25/21 03:30 81 20 92 Pulse Ox 06/25/21 11:25 06/25/21 11:24 06/25/21 09:00 97 06/25/21 07:50 06/25/21 07:30 06/25/21 07:16 06/25/21 04:58 06/25/21 04:49 06/25/21 03:30 Laboratory Results Cardiac Enzymes 06/24/21 06/25/21 Range/Units 18:55 05:48 Troponin I < 0.03 < 0.03 (0-0.04) ng/ml
[2021-06-25] MEDS: ENOXAPARIN INJ 40 MG/0.4 ML SYR SQ SCH (14:51)
[2021-06-25] MEDS: traMADol HCL 50 MG TABLET PO PRN ×2 (15:15→23:03)
[2021-06-25] MEDS: SERTRALINE HCL 100 MG TABLET PO SCH (21:25)
[2021-06-25] MEDS: busPIRone 15 MG TAB PO SCH (21:26)
[2021-06-25] MEDS: traZODone HCL 50 MG TAB PO SCH (23:03)
[2021-06-25] MEDS: LORazepam 0.5 MG TAB PO PRN (23:07)
[2021-06-26] MEDS: ALBUT/IPRATROP 3MG/0.5MG NEB 3 ML VIAL NEB SCH ×4 (08:24→19:10)
[2021-06-26] MEDS: ASPIRIN 81 MG ECTAB PO SCH (08:42)
[2021-06-26] MEDS: PANTOprazole 40 MG TAB PO SCH ×2 (08:42→20:34)
[2021-06-26] MEDS: dilTIAZem HCL 240 MG CAPCR PO SCH (08:42)
[2021-06-26] MEDS: guaiFENesin 600 MG TABCR PO SCH ×2 (08:42→20:38)
[2021-06-26] MEDS: UMECLIDINIUM BROMIDE 62.5MCG/BLISTER 7 PUFFS/INHALER INH SCH (08:43)
[2021-06-26] MEDS: ISOSORBIDE MONO EXTENDED REL 30 MG TABCR PO SCH (08:43)
[2021-06-26] MEDS: CHOLECALCIFEROL 1,000 UNITS 25 MCG TAB PO SCH (08:43)
[2021-06-26] MEDS: FLUTICASONE/VILANTEROL 100/25MCG 14 PUFFS/INHALER INH SCH (08:43)
[2021-06-26 09:23] LABS: BUN Creatinine Ratio 19.3 (10-20); Calcium 8.5 mg/dl (8.5-10.1); Creatinine Clr Calc Pharmacy 92.5 ml/min; Est GFR (African American) 102.6 ml/min; Est GFR (Non-African American) 88.5 ml/min
[2021-06-26] MEDS: methylPREDNISolone 40 MG in SYRINGE 0 ML IV SCH (12:36)
[2021-06-26] MEDS: ENOXAPARIN INJ 40 MG/0.4 ML SYR SQ SCH (13:09)
--- NOTE | 2021-06-26 16:39 | Hospitalist Progress Note ---
Date of Service June 26, 2021 Assessment & Plan (1) Acute on chronic respiratory failure: Plan: Management as below (2) COPD (chronic obstructive pulmonary disease) with emphysema: Plan: Patient is a 71 yr male with H/O Chronic respiratory failure, COPD on chronic 6 L O2, HTN, cirrhosis, depression, anxiety, PTSD, h/o tobacco use, chronic anemia presented to ER with complaint of increased shortness of breath for the past 3 days and reported pulse ox down to the 60s at home Acute on chronic respiratory failure with hypoxia/hypercapnia Chronic oxygen dependency--6 L at baseline Acute COPD exacerbation Negative COVID-19 PCR, negative influenza and RSV PCR. 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 Required 15 L with ambulation Scant wheezing on exam Restart IV Solu-Medrol (3) HTN (hypertension): Plan: Continue diltiazem (4) Depression: Plan: Continue buspirone, sertraline, trazodone DVT Prophylaxis Lovenox SQ Code Status Conditional code Is DNI, wants CPR as per discussion Admission and Anticipated Discharge Date Admission Date: June 14, 2021 Subjective Patient is seen and examined at bedside Could not complete 2 step today: Required 15 L with ambulation Subjectively feels no significant change from yesterday Chronic cough Denies any chest pain, dyspnea, dizziness, nausea, abdominal pain Review of Systems Review of Systems: All systems reviewed & are unremarkable except as noted in Subjective Physical Exam Physical Exam: Physical Exam: Vitals signs as noted above General Appearance:Chronic ill appearing, no apparent distress Head: normocephalic, Atraumatic Eyes: normal inspection, EOMI Neck: supple, Trachea midline Respiratory/Chest: Decreased breath sounds, Scattered wheezing Cardiovascular: S1, S2, No murmur Abdomen/GI:Soft, Non tender, Bowel sounds present Extremities/Musculoskeletal:normal inspection, no edema Neurologic/Psych:AAOX3, grossly no focal neurological deficits Skin: normal color, warm Results & Data Results & Data ([facility]) Vital Signs (Past 12 Hours) Vital Signs Temp Pulse Pulse Pulse Pulse Pulse Pulse 06/26/21 16:16 06/26/21 15:58 36.6 C 06/26/21 15:25 06/26/21 15:08 81 06/26/21 11:06 36.5 C 06/26/21 10:58 87 92 H 94 H 82 86 06/26/21 10:57 06/26/21 09:55 06/26/21 08:22 06/26/21 07:17 73 06/26/21 07:13 36.6 C Pulse Resp Resp Resp Resp Resp Resp 06/26/21 16:16 06/26/21 15:58 78 24 06/26/21 15:25 87 22 06/26/21 15:08 06/26/21 11:06 86 24 06/26/21 10:58 22 22 22 22 18 06/26/21 10:57 87 20 06/26/21 09:55 06/26/21 08:22 85 18 06/26/21 07:17 06/26/21 07:13 80 21 BP Pulse Ox Pulse Ox Pulse Ox Pulse Ox Pulse Ox Pulse Ox 06/26/21 16:16 92 06/26/21 15:58 133/74 91 06/26/21 15:25 91 06/26/21 15:08 06/26/21 11:06 124/69 93 06/26/21 10:58 90 87 L 86 L 91 86 L 06/26/21 10:57 92 06/26/21 09:55 89 L 06/26/21 08:22 92 06/26/21 07:17 06/26/21 07:13 133/61 90 Laboratory Results BMP 06/26/21 08:32 Sodium 137 Potassium 4.0 Chloride 94 L Carbon Dioxide 43 H* BUN 16 Creatinine 0.83 Glucose 129 H Calcium 8.5
[2021-06-26] MEDS: SERTRALINE HCL 100 MG TABLET PO SCH (20:37)
[2021-06-26] MEDS: busPIRone 15 MG TAB PO SCH (20:38)
[2021-06-26] MEDS: traZODone HCL 50 MG TAB PO SCH (23:49)
[2021-06-26] MEDS: LORazepam 0.5 MG TAB PO PRN (23:49)
[2021-06-26] MEDS: traMADol HCL 50 MG TABLET PO PRN (23:49)
[2021-06-27] MEDS: ALBUT/IPRATROP 3MG/0.5MG NEB 3 ML VIAL NEB SCH ×4 (07:38→20:01)
[2021-06-27] MEDS: ASPIRIN 81 MG ECTAB PO SCH (08:18)
[2021-06-27] MEDS: dilTIAZem HCL 240 MG CAPCR PO SCH (08:18)
[2021-06-27] MEDS: CHOLECALCIFEROL 1,000 UNITS 25 MCG TAB PO SCH (08:18)
[2021-06-27] MEDS: guaiFENesin 600 MG TABCR PO SCH ×2 (08:18→20:53)
[2021-06-27] MEDS: methylPREDNISolone 40 MG in SYRINGE 0 ML IV SCH (08:18)
[2021-06-27] MEDS: FLUTICASONE/VILANTEROL 100/25MCG 14 PUFFS/INHALER INH SCH (08:19)
[2021-06-27] MEDS: UMECLIDINIUM BROMIDE 62.5MCG/BLISTER 7 PUFFS/INHALER INH SCH (08:19)
[2021-06-27] MEDS: PANTOprazole 40 MG TAB PO SCH ×2 (08:19→20:53)
[2021-06-27] MEDS: ISOSORBIDE MONO EXTENDED REL 30 MG TABCR PO SCH (08:20)
[2021-06-27] MEDS: ENOXAPARIN INJ 40 MG/0.4 ML SYR SQ SCH (14:59)
--- NOTE | 2021-06-27 17:41 | Hospitalist Progress Note ---
Date of Service June 27, 2021 Assessment & Plan (1) Acute on chronic respiratory failure: Plan: Management as below (2) COPD (chronic obstructive pulmonary disease) with emphysema: Plan: Patient is a 71 yr male with H/O Chronic respiratory failure, COPD on chronic 6 L O2, HTN, cirrhosis, depression, anxiety, PTSD, h/o tobacco use, chronic anemia presented to ER with complaint of increased shortness of breath for the past 3 days and reported pulse ox down to the 60s at home Acute on chronic respiratory failure with hypoxia/hypercapnia Chronic oxygen dependency--6 L at baseline Acute COPD exacerbation Negative COVID-19 PCR, negative influenza and RSV PCR. 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 Required 15 L with ambulation on 06/26/21 Continue IV Solu-Medrol Desaturates quickly with exertion (3) HTN (hypertension): Plan: Continue diltiazem (4) Depression: Plan: Continue buspirone, sertraline, trazodone DVT Prophylaxis Lovenox SQ Code Status Conditional code Is DNI, wants CPR as per discussion Admission and Anticipated Discharge Date Admission Date: June 14, 2021 Subjective Patient is seen and examined at bedside Sleepy during my encounter Currently on 7 L supplemental oxygen No wheezing on exam today Chronic cough Denies any chest pain, dyspnea, dizziness, nausea, abdominal pain Review of Systems Review of Systems: All systems reviewed & are unremarkable except as noted in Subjective Physical Exam Physical Exam: Physical Exam: Vitals signs as noted above General Appearance:Chronic ill appearing, no apparent distress Head: normocephalic, Atraumatic Eyes: normal inspection, EOMI Neck: supple, Trachea midline Respiratory/Chest: Decreased breath sounds, CTA Cardiovascular: S1, S2, No murmur Abdomen/GI:Soft, Non tender, Bowel sounds present Extremities/Musculoskeletal:normal inspection, no edema Neurologic/Psych:AAOX3, grossly no focal neurological deficits Skin: normal color, warm Results & Data Results & Data ([facility]) Vital Signs (Past 12 Hours) Vital Signs Temp Pulse Resp BP BP Pulse Ox 06/27/21 15:57 36.9 C 84 20 133/66 95 06/27/21 14:10 77 20 93 06/27/21 12:06 36.6 C 85 16 122/65 90 06/27/21 10:26 83 20 92 06/27/21 07:49 36.3 C L 85 15 131/74 96 06/27/21 07:40 82 20 90
[2021-06-27] MEDS: traZODone HCL 50 MG TAB PO SCH (20:53)
[2021-06-27] MEDS: SERTRALINE HCL 100 MG TABLET PO SCH (20:53)
[2021-06-27] MEDS: busPIRone 5 MG TAB PO SCH (20:54)
[2021-06-27] MEDS: traMADol HCL 50 MG TABLET PO PRN (23:37)
[2021-06-27] MEDS: LORazepam 0.5 MG TAB PO PRN (23:38)
[2021-06-28 06:42] LABS: Mean Corpuscular Hemoglobin 29.9 pg (25-34); Mean Corpuscular Hgb Conc 30.6 g/dL (32-36); Mean Corpuscular Volume 97.8 fL (80-100); Mean Platelet Volume 9.5 fL (7.4-10.4); Platelet Count 126 K/uL (130-400); RDW Coefficient of Variation 13.9 % (11.5-14.5); RDW Standard Deviation 50.3 fL (36.4-46.3); Red Blood Count 3.68 M/uL (4.7-6.1); White Blood Count 15.86 K/uL (4.8-10.8)
[2021-06-28] MEDS: guaiFENesin 600 MG TABCR PO SCH ×2 (07:27→20:55)
[2021-06-28] MEDS: methylPREDNISolone 40 MG in SYRINGE 0 ML IV SCH (07:27)
[2021-06-28] MEDS: PANTOprazole 40 MG TAB PO SCH ×2 (07:28→20:55)
[2021-06-28] MEDS: ASPIRIN 81 MG ECTAB PO SCH (07:29)
[2021-06-28] MEDS: ISOSORBIDE MONO EXTENDED REL 30 MG TABCR PO SCH (07:29)
[2021-06-28] MEDS: CHOLECALCIFEROL 1,000 UNITS 25 MCG TAB PO SCH (07:29)
[2021-06-28] MEDS: dilTIAZem HCL 240 MG CAPCR PO SCH (07:31)
[2021-06-28 07:32] LABS: BUN Creatinine Ratio 24.1 (10-20); Calcium 8.4 mg/dl (8.5-10.1); Creatinine Clr Calc Pharmacy 95.7 ml/min; Est GFR (African American) 104.7 ml/min; Est GFR (Non-African American) 90.3 ml/min; Potassium 4.1 mmol/L (3.5-5.1)
[2021-06-28] MEDS: FLUTICASONE/VILANTEROL 100/25MCG 14 PUFFS/INHALER INH SCH (07:32)
[2021-06-28] MEDS: UMECLIDINIUM BROMIDE 62.5MCG/BLISTER 7 PUFFS/INHALER INH SCH (07:32)
[2021-06-28] MEDS: ALBUT/IPRATROP 3MG/0.5MG NEB 3 ML VIAL NEB SCH ×4 (07:58→20:33)
--- NOTE | 2021-06-28 14:21 | Hospitalist Progress Note ---
Date of Service June 28, 2021 Assessment & Plan (1) Acute on chronic respiratory failure: Plan: Management as below (2) COPD (chronic obstructive pulmonary disease) with emphysema: Plan: per Dr. Regan's notes with addendum: Patient is a 71 yr male with H/O Chronic respiratory failure, COPD on chronic 6 L O2, HTN, cirrhosis, depression, anxiety, PTSD, h/o tobacco use, chronic anemia presented to ER with complaint of increased shortness of breath for the past 3 days and reported pulse ox down to the 60s at home Acute on chronic respiratory failure with hypoxia/hypercapnia Chronic oxygen dependency--6 L at baseline Acute COPD exacerbation Negative COVID-19 PCR, negative influenza and RSV PCR. 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 Required 15 L with ambulation on 06/26/21 Continue IV Solu-Medrol Desaturates quickly with exertion 06/28 wheezing improving but on 8 L NC continue IV Solumedrol Nebs incentive spirometry (3) HTN (hypertension): Plan: Continue diltiazem (4) Depression: Plan: Continue buspirone, sertraline, trazodone DVT Prophylaxis Lovenox SQ Code Status Conditional code Is DNI, wants CPR as per discussion Admission and Anticipated Discharge Date Admission Date: June 14, 2021 Subjective ff up for COPD exacerbation, etc seen resting in bed, comfortable states he feels improved today no dyspnea, intermittent cough on 8 L NC no chest pain, dyspnea, palpitations, dizziness no other symptoms Review of Systems Review of Systems: all noted and negative except for above Physical Exam Physical Exam: General- oriented x 3, not in distress, speaks in sentences with no effort or accessory muscle use Head- atraumatic Eyes- PERRL, EOMI, anicteric ENT- oropharynx clear Neck- supple, no JVD, no adenopathy, no thyromegaly; carotids +2/2, no bruits appreciated Lungs- diminished but clear to auscultation bilaterally, no rales/wheezes Heart- normal rate, regular rhythm; no murmur, no gallop, no rub appreciated Abdomen- normal bowel sounds, nondistended, soft, nontender, no masses or hepatosplenomegaly Extremities- no pretibial edema, no calf tenderness; peripheral pulses intact Neuro- alert, oriented x 3; CN 2-12 grossly intact; motor 5/5 bilaterally;sensation 100% on all extremities; no other gross focal neurologic deficits Skin- warm & dry Results & Data Results & Data ([facility]) Vital Signs (Past 12 Hours) Vital Signs Temp Pulse Pulse Resp BP BP Pulse Ox 06/28/21 12:00 36.7 C 20 114/68 91 06/28/21 11:39 71 06/28/21 11:06 81 18 90 06/28/21 08:00 36.1 C L 81 21 130/72 95 06/28/21 07:58 78 21 91 06/28/21 07:33 36.4 C L 83 18 133/76 95 06/28/21 03:42 71 16 97 06/28/21 03:41 36.6 C 71 22 112/69 99 all noted and reviewed including below
--- NOTE | 2021-06-28 14:45 | XRay Report ---
XR chest 1V portable CLINICAL HISTORY: wheezing, ff up COPD exacerbation. COMPARISON STUDY: 06/24/2021 TECHNIQUE: 1 view of the chest FINDINGS: Single frontal view of the chest demonstrates the cardiomediastinal silhouette to be within normal li mits. Compared to previous examination, patchy interstitial and alveolar opacities are again seen par ticularly at both lung bases. There is no significant interval change. There is no evidence for pleur al effusion. There is no evidence for vascular congestion. There is no acute osseous pathology. IMPRESSION: No significant interval change in bilateral interstitial and patchy alveolar opacities, p articularly at the lung bases bilaterally. ACT 112: Negative or not required by law. Electronically signed by: Rashaad Mac M.D. 06/28/2021 2:44 PM
[2021-06-28] MEDS: ENOXAPARIN INJ 40 MG/0.4 ML SYR SQ SCH (15:24)
[2021-06-28] MEDS: traZODone HCL 50 MG TAB PO SCH (20:54)
[2021-06-28] MEDS: SERTRALINE HCL 100 MG TABLET PO SCH (20:55)
[2021-06-28] MEDS: busPIRone 5 MG TAB PO SCH (20:55)
[2021-06-28] MEDS: traMADol HCL 50 MG TABLET PO PRN (23:24)
[2021-06-28] MEDS: LORazepam 0.5 MG TAB PO PRN (23:24)
[2021-06-29] MEDS: ALBUT/IPRATROP 3MG/0.5MG NEB 3 ML VIAL NEB SCH ×4 (07:33→20:08)
[2021-06-29] MEDS: CHOLECALCIFEROL 1,000 UNITS 25 MCG TAB PO SCH (08:35)
[2021-06-29] MEDS: ISOSORBIDE MONO EXTENDED REL 30 MG TABCR PO SCH (08:35)
[2021-06-29] MEDS: dilTIAZem HCL 240 MG CAPCR PO SCH (08:35)
[2021-06-29] MEDS: methylPREDNISolone 40 MG in SYRINGE 0 ML IV SCH (08:35)
[2021-06-29] MEDS: ASPIRIN 81 MG ECTAB PO SCH (08:35)
[2021-06-29] MEDS: guaiFENesin 600 MG TABCR PO SCH ×2 (08:36→20:26)
[2021-06-29] MEDS: UMECLIDINIUM BROMIDE 62.5MCG/BLISTER 7 PUFFS/INHALER INH SCH (08:36)
[2021-06-29] MEDS: PANTOprazole 40 MG TAB PO SCH ×2 (08:36→20:25)
[2021-06-29] MEDS: FLUTICASONE/VILANTEROL 100/25MCG 14 PUFFS/INHALER INH SCH (08:36)
--- NOTE | 2021-06-29 14:15 | Hospitalist Progress Note ---
Date of Service June 29, 2021 Assessment & Plan (1) Acute on chronic respiratory failure: Plan: Management as below (2) COPD (chronic obstructive pulmonary disease) with emphysema: Plan: per Dr. Regan's notes with addendum: Patient is a 71 yr male with H/O Chronic respiratory failure, COPD on chronic 6 L O2, HTN, cirrhosis, depression, anxiety, PTSD, h/o tobacco use, chronic anemia presented to ER with complaint of increased shortness of breath for the past 3 days and reported pulse ox down to the 60s at home Acute on chronic respiratory failure with hypoxia/hypercapnia Chronic oxygen dependency--6 L at baseline Acute COPD exacerbation Negative COVID-19 PCR, negative influenza and RSV PCR. 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 Required 15 L with ambulation on 06/26/21 Continue IV Solu-Medrol Desaturates quickly with exertion 06/29 wheezing resolved but remains on 7-8 L NC at rest, with ambulation, desats to83% while on 10 L NC repeat CXR: No significant interval change in bilateral interstitial and patchy alveolar opacities, particularly at the lung bases bilaterally. continue IV Solumedrol Nebs add hypertonic saline incentive spirometry Nir Moses Mucinex check sputum culture will request Pulmonary re-evaluation (3) HTN (hypertension): Plan: Continue diltiazem (4) Depression: Plan: Continue buspirone, sertraline, trazodone DVT Prophylaxis Lovenox SQ Code Status Conditional code Is DNI, wants CPR as per discussion Admission and Anticipated Discharge Date Admission Date: June 14, 2021 Subjective ff up for COPD exacerbation, etc seen resting in bed, on 7L nasal cannula states he feels improved today breathing is improving has cough productive of white sputum no chest pain, dyspnea, palpitations, dizziness no fever/chills as per PT, patient was on 10L of o2 with ambulation, satting 83% Review of Systems Review of Systems: all noted and negative except for above Physical Exam Physical Exam: General- oriented x 3, not in distress, speaks in sentences with no effort or accessory muscle use Eyes- anicteric Neck- no JVD Lungs- diminished breath sounds bilaterally no wheezing Heart- normal rate, regular rhythm; no murmurs Abdomen- normal bowel sounds, nondistended, soft, nontender Extremities- no pretibial edema, no calf tenderness Neuro- alert, oriented x 3; no gross focal neurologic deficits Skin- warm & dry Results & Data Results & Data ([facility]) Vital Signs (Past 12 Hours) Vital Signs Temp Pulse Pulse Resp BP BP Pulse Ox 06/29/21 11:31 87 20 91 06/29/21 10:53 36.6 C 81 22 136/74 91 06/29/21 10:33 78 06/29/21 07:34 85 18 95 06/29/21 07:21 36.6 C 87 22 142/76 H 91 06/29/21 03:07 36.6 C 84 16 115/68 91 all noted and reviewed including below
[2021-06-29] MEDS: ENOXAPARIN INJ 40 MG/0.4 ML SYR SQ SCH (15:17)
[2021-06-29] MEDS: SODIUM CHLOR 7% 4 ML NEB NEB SCH (19:58)
[2021-06-29] MEDS: SERTRALINE HCL 100 MG TABLET PO SCH (20:25)
[2021-06-29] MEDS: traZODone HCL 50 MG TAB PO SCH (20:25)
[2021-06-29] MEDS: busPIRone 5 MG TAB PO SCH (20:25)
[2021-06-30] MEDS: traMADol HCL 50 MG TABLET PO PRN ×3 (01:27→20:21)
[2021-06-30] MEDS: LORazepam 0.5 MG TAB PO PRN ×2 (01:28→20:23)
[2021-06-30] MEDS: ALBUT/IPRATROP 3MG/0.5MG NEB 3 ML VIAL NEB SCH ×4 (07:21→19:29)
[2021-06-30] MEDS: SODIUM CHLOR 7% 4 ML NEB NEB SCH ×2 (07:21→19:21)
[2021-06-30] MEDS: FLUTICASONE/VILANTEROL 100/25MCG 14 PUFFS/INHALER INH SCH (08:38)
[2021-06-30] MEDS: ASPIRIN 81 MG ECTAB PO SCH (08:38)
[2021-06-30] MEDS: ISOSORBIDE MONO EXTENDED REL 30 MG TABCR PO SCH (08:38)
[2021-06-30] MEDS: PANTOprazole 40 MG TAB PO SCH ×2 (08:38→20:22)
[2021-06-30] MEDS: methylPREDNISolone 40 MG in SYRINGE 0 ML IV SCH ×3 (08:38→21:11)
[2021-06-30] MEDS: guaiFENesin 600 MG TABCR PO SCH ×2 (08:38→20:22)
[2021-06-30] MEDS: UMECLIDINIUM BROMIDE 62.5MCG/BLISTER 7 PUFFS/INHALER INH SCH (08:38)
[2021-06-30] MEDS: dilTIAZem HCL 240 MG CAPCR PO SCH (08:38)
[2021-06-30] MEDS: CHOLECALCIFEROL 1,000 UNITS 25 MCG TAB PO SCH (08:39)
[2021-06-30] MEDS ORDERED: CONSULT PHARMACY STA (09:38)
[2021-06-30] MEDS: CEFEPIME 2,000 MG in SYRINGE 0 ML IV SCH ×2 (10:09→17:18)
--- NOTE | 2021-06-30 12:00 | Hospitalist Progress Note ---
Date of Service June 30, 2021 Assessment & Plan (1) Acute on chronic respiratory failure: Plan: Management as below (2) COPD (chronic obstructive pulmonary disease) with emphysema: Plan: per Dr. Regan's notes with addendum: Patient is a 71 yr male with H/O Chronic respiratory failure, COPD on chronic 6 L O2, HTN, cirrhosis, depression, anxiety, PTSD, h/o tobacco use, chronic anemia presented to ER with complaint of increased shortness of breath for the past 3 days and reported pulse ox down to the 60s at home Acute on chronic respiratory failure with hypoxia/hypercapnia Chronic oxygen dependency--6 L at baseline Acute COPD exacerbation Negative COVID-19 PCR, negative influenza and RSV PCR. 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 Required 15 L with ambulation on 06/26/21 Continue IV Solu-Medrol Desaturates quickly with exertion 06/30 wheezing resolved but remains on 8-10 L NC at rest, with ambulation, desats to 83% while on 10 L NC repeat CXR: No significant interval change in bilateral interstitial and patchy alveolar opacities, particularly at the lung bases bilaterally. continue IV Solumedrol- increased to 40mg BID added Cefepime IV ff up sputum culture Nebs hypertonic saline incentive spirometry Breo, Incruse Mucinex pending Pulmonary re-evaluation (3) HTN (hypertension): Plan: Continue diltiazem (4) Depression: Plan: Continue buspirone, sertraline, trazodone DVT Prophylaxis Lovenox SQ Code Status Conditional code Is DNI, wants CPR as per discussion Admission and Anticipated Discharge Date Admission Date: June 14, 2021 Subjective ff up for COPD exacerbation, pneumonia, etc seen resting in bed, on 8 L NC states he had a rough night with the Bipap improved this morning breathing is ok able to expectorate brown, thick phlegm no other symptoms Review of Systems Review of Systems: all noted and negative except for above Physical Exam Physical Exam: General- oriented x 3, not in distress, speaks in sentences with no effort or accessory muscle use Eyes- anicteric Neck- no JVD Lungs- diminished but clear breath sounds bilaterally Heart- normal rate, regular rhythm; no murmurs Abdomen- normal bowel sounds, nondistended, soft, nontender Extremities- no pretibial edema, no calf tenderness Neuro- alert, oriented x 3; no gross focal neurologic deficits Skin- warm & dry Results & Data Results & Data ([facility]) Vital Signs (Past 12 Hours) Vital Signs Temp Pulse Pulse Resp BP Pulse Ox 06/30/21 10:32 93 H 06/30/21 10:25 81 20 92 06/30/21 09:52 20 94 06/30/21 08:00 36.4 C L 87 18 122/72 93 06/30/21 07:22 78 20 98 06/30/21 03:04 36.5 C 77 20 146/73 H 98 06/30/21 00:25 73 16 96
--- NOTE | 2021-06-30 14:31 | Pulmonary Consultation ---
Date of Consultation June 30, 2021 Assessment & Plan (1) Acute on chronic respiratory failure: (2) SOB (shortness of breath): (3) COPD (chronic obstructive pulmonary disease) with emphysema: (4) COPD exacerbation: Patient has severe COPD at baseline which can be classified as group D. He is oxygen dependent at baseline with 6 L of oxygen via nasal cannula. He is currently on 8 L of oxygen. I would have a lower threshold for O2 saturations in this patient of 86 to 90%. Recommend titrating him down to oral steroids in the next day or so. I do not think increased Solu-Medrol is going to be of much benefit at this point. He can be placed on 40 mg of prednisone and wean by 5 mg every 5 days. Would recommend placing the patient on Bactrim prophylaxis during the prednisone taper. He will need follow-up with his outpatient director talent management. Pulmonary rehab is recommended on an outpatient basis as well. I spoke with respiratory therapy and we will try the patient on an oxygen reservoir/Oxymizer device to see if we can decrease the flow rate of oxygen to be discharged home. His overall prognosis is poor and I would recommend an outpatient palliative care consultation. Thank you for the consult. Please call with questions. History of Present Illness Reason for Consultation: Shortness of breath and COPD Attending Physician: Crow Franklin MD History of Present Illness 71-year-old male with a past medical history of osteoarthritis, hypertension, PTSD, COPD and chronic respiratory failure presenting to the hospital on 06/14/2021 due to shortness of breath. He has remained hospitalized since that time. He was seen in pulmonary consultation by Dr. Caldwell on 06/14/2021. Patient continues to be short of breath and is requiring 8 L of oxygen to maintain sats in the low 90s. He also has a history of COVID-19 in May 2020. Has been seen by palliative care in the past most recently in May 2021. He does wear 6 L of oxygen at baseline. ABG from 06/14/2021 revealed hypercapnic respiratory failure with a PCO2 of 76 and a pH of 7.32. He is currently on Solu-Medrol for COPD exacerbation. He is also on cefepime 2 g 3 times daily. Incruse Ellipta and Breo has been ordered as an inpatient. CT from 05/11/2021 reviewed which demonstrates severe bullous emphysema with in terstitial crowding in the bases. Chest x-ray from 06/28/2022 with bilateral emphysema. Echo from 05/11/2021 revealed grade 1 diastolic dysfunction, LVEF 65 to 70% and a reduction in the right ventricular function. Normal pulmonary artery pressures were estimated. Patient normally sees a director talent management at the [facility]. He is chronically on azithromycin, Symbicort and Spiriva. He notes chronic breathlessness. Allergies Allergy/AdvReac Type Severity Reaction Status Date / Time bee venom protein (honey bee) Allergy Severe ANAPHYLAXIS Verified 05/09/21 15:48 amoxicillin Allergy Intermediate FACIAL Verified 05/09/21 15:48 SWELLING (EYES SWELLED SHUT) clavulanic acid Allergy Intermediate FACIAL Verified 05/09/21 15:48 SWELLING (EYES SWELLED SHUT) pneumococcal vaccine Allergy Intermediate SWELLING Verified 05/09/21 15:48 Sqbcpos-OWA-ZpS Reductase Allergy Intermediate CPK'S GO Verified 05/09/21 15:48 Inhibitor THROUGH [Xjtibak-Xdx-Ztr Reductase ROOF Inhibitor] prednisone AdvReac Intermediate confusion Verified 05/09/21 15:48 and agitation Home Medications Medication Instructions Recorded Confirmed Type buspirone 5 mg tablet 5 mg PO QPM 04/08/18 06/14/21 History cetirizine 10 mg tablet 10 mg PO DAILY PRN 04/08/18 06/14/21 History omeprazole 20 mg capsule,delayed 20 mg PO BID 04/08/18 06/14/21 History release sertraline 100 mg tablet 200 mg PO HS 04/08/18 06/14/21 History tiotropium bromide 18 mcg capsule 1 cap INHALATION QPM 04/08/18 06/14/21 History with inhalation device (Spiriva with HandiHaler) trazodone 150 mg tablet 150 mg PO HS 04/08/18 06/14/21 History albuterol sulfate 2.5 mg INHALATION QID PRN 07/04/18 06/14/21 History albuterol sulfate 90 mcg/actuation 2 puff INHALATION Q6H PRN 07/04/18 06/14/21 History aerosol inhaler budesonide-formoterol HFA 160 2 puff INHALATION BID 08/22/18 06/14/21 History mcg-4.5 mcg/actuation aerosol inhaler (Symbicort) epinephrine 0.3 mg/0.3 mL 0.3 mg IM DIRECTED PRN 08/22/18 06/14/21 History injection, auto-injector (EpiPen) guaifenesin 200 mg tablet 400 mg PO BID 08/22/18 06/14/21 History cholecalciferol (vitamin D3) 25 1,000 unit PO QAM 08/19/19 06/14/21 History mcg (1,000 unit) capsule (Vitamin D3) cyanocobalamin (vitamin B-12) 1,000 mcg PO 2XWK 12/19/20 06/14/21 History 1,000 mcg tablet (Vitamin B-12) diltiazem HCl 240 mg 240 mg PO QAM 12/19/20 06/14/21 History capsule,extended release 24 hr, controlled aspirin 81 mg tablet,delayed 81 mg PO QAM #30 tab 05/16/21 06/14/21 Rx release azithromycin 250 mg tablet 250 mg PO MoWeFr@0900 #15 tab 05/16/21 06/14/21 Rx isosorbide mononitrate 30 mg 30 mg PO QAM #30 tab 05/16/21 06/14/21 Rx tablet,extended release 24 hr Patient History Medical History (Updated 06/30/21 @ 14:35 by Joshua Abel MD) Anemia COPD (chronic obstructive pulmonary disease) with emphysema COPD exacerbation Depression GERD (gastroesophageal reflux disease) Hearing deficit [place] 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 Dyer exposure History of COVID-19 05/2020 - hospitalized at [facility] - sob, cough, generalized weakness --> pneumon ia; still requiring more supplemental oxygen since having Covid (currently on 6 lpm cont home o2, prior to covid was only on 4 lpm) History of kidney stones History of tobacco abuse HTN (hypertension) On home O2 cont @ 6 lpm Osteoarthritis Palliative care encounter PTSD (post-traumatic stress disorder) Pulmonary nodules Thrombocytopenia Surgical History Dilatation of ureter H/O hernia repair History of appendectomy History of cardiac cath x 2 - most recent [place] 2010 - no stents; [place] [facility] [place] History of colonoscopy History of extraction of renal calculus History of tonsillectomy Loss of teeth due to extraction S/P arthroscopic surgery of right knee Family History Mother Colon cancer Father FH: kidney cancer Other Cancer Social History (Updated 06/14/21 @ 13:24 by Nitza Floyd PA-C) Smoking Status: Former smoker Tobacco Type: Cigarettes Cigarettes Per Day: 40 pack year hx; Second Hand Exposure: No; Hx Alcohol Use: No Hx Substance Use: No Preferred Language: Setswana Communication Ability: Effective Corporate Controller Required: No Beliefs That Will Affect Care: None marital status: Current Living Situation: Spouse Current Living Situation Comment: lives with spouse 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 Pleasant Eyes: PERRL, conjunctivae normal, anicteric sclerae Neck: No appreciation of stridor or carotid bruits Respiratory: normal respiratory effort; no respiratory distress Prolonged phase of exhalation. Cardiovascular: Rate/Rhythm: regular rate and regular rhythm Gastrointestinal (Abdomen): normal bowel sounds, soft, nontender, no hepatosplenomegaly Musculoskeletal: Head/Neck/Chest: + abnormal palpation of chest wall Neurologic: Nonfocal Psychiatric: A+Ox3, euthymic affect Results & Data Results & Data ([facility]) Vital Signs (Past 12 Hours) Vital Signs Temp Pulse Pulse Resp BP Pulse Ox 06/30/21 12:55 36.8 C 86 18 118/69 92 06/30/21 10:32 93 H 06/30/21 10:25 81 20 92 06/30/21 09:52 20 94 06/30/21 08:00 36.4 C L 87 18 122/72 93 06/30/21 07:22 78 20 98 06/30/21 03:04 36.5 C 77 20 146/73 H 98 Vitals, labs and imaging reviewed as per HPI PG Care Time/CCT Total # of Minutes Spent Total Time Spent with Patient: Total time spent is greater than 50% in coordination of care (as documented) at patient's floor/unit and/or counseling patient: Coding Level of Care Code 41112 Initial Inpt Care Lvl 3 Diagnoses Acute on chronic respiratory failure J96.20 SOB (shortness of breath) R06.02 COPD (chronic obstructive pulmonary disease) with emphysema J43.9 COPD exacerbation J44.1
[2021-06-30] MEDS: ENOXAPARIN INJ 40 MG/0.4 ML SYR SQ SCH (15:12)
[2021-06-30] MEDS: traZODone HCL 50 MG TAB PO SCH (20:20)
[2021-06-30] MEDS: SERTRALINE HCL 100 MG TABLET PO SCH (20:21)
[2021-06-30] MEDS: busPIRone 5 MG TAB PO SCH (20:23)
[2021-07-01] MEDS: CEFEPIME 2,000 MG in SYRINGE 0 ML IV SCH ×3 (02:38→17:45)
[2021-07-01] MEDS: methylPREDNISolone 40 MG in SYRINGE 0 ML IV SCH ×2 (05:53→13:53)
[2021-07-01] MEDS: ALBUT/IPRATROP 3MG/0.5MG NEB 3 ML VIAL NEB SCH ×4 (07:45→19:55)
[2021-07-01] MEDS: SODIUM CHLOR 7% 4 ML NEB NEB SCH ×2 (07:46→19:40)
[2021-07-01] MEDS: UMECLIDINIUM BROMIDE 62.5MCG/BLISTER 7 PUFFS/INHALER INH SCH (08:34)
[2021-07-01] MEDS: FLUTICASONE/VILANTEROL 100/25MCG 14 PUFFS/INHALER INH SCH (08:34)
[2021-07-01] MEDS: PANTOprazole 40 MG TAB PO SCH ×2 (08:35→20:13)
[2021-07-01] MEDS: CHOLECALCIFEROL 1,000 UNITS 25 MCG TAB PO SCH (08:35)
[2021-07-01] MEDS: guaiFENesin 600 MG TABCR PO SCH ×2 (08:35→20:12)
[2021-07-01] MEDS: ISOSORBIDE MONO EXTENDED REL 30 MG TABCR PO SCH (08:35)
[2021-07-01] MEDS: ASPIRIN 81 MG ECTAB PO SCH (08:36)
[2021-07-01] MEDS: dilTIAZem HCL 240 MG CAPCR PO SCH (08:36)
--- NOTE | 2021-07-01 12:47 | Pulmonology Progress Note ---
Date of Service July 01, 2021 Assessment & Plan (1) Acute on chronic respiratory failure: (2) SOB (shortness of breath): (3) COPD (chronic obstructive pulmonary disease) with emphysema: (4) COPD exacerbation: Plan: Patient has severe COPD at baseline which can be classified as group D. He is oxygen dependent at baseline with 6 L of oxygen via nasal cannula. I would have a lower threshold for O2 saturations in this patient of 86 to 90%. Recommend titrating him down to oral steroids in the next day or so. I do not think increased Solu-Medrol is going to be of much benefit at this point. He can be placed on 40 mg of prednisone and wean by 5 mg every 5 days. Would recommend placing the patient on Bactrim prophylaxis during the prednisone taper. I see no role for cefepime at this time. Sputum cultures from 06/30/2021 will floor. No clinical signs of pneumonia. White cell count elevated today likely related to demargination from increase steroid dose. He will need follow-up with his outpatient open end spinning operator. Pulmonary rehab is recommended on an outpatient basis as well. He seems to be responding well to the oxygen reservoir/Oxymizer. His overall prognosis is poor and I would recommend an outpatient palliative care consultation. Thank you for the consult. Please call with questions. We will sign off at this time. Admission and Anticipated Discharge Date Admission Date: June 14, 2021 Subjective Patient seen and examined this morning. He is doing well with the Oxymizer and is currently on 6 L of oxygen. He was able to ambulate around the hallways. No significant chest pain or tightness today. Symptoms are near his baseline. Review of Systems Review of Systems: All systems reviewed & are unremarkable except as noted in HPI & below Physical Exam Constitutional: No acute distress. Pleasant Eyes: PERRL, conjunctivae normal, anicteric sclerae Neck: No appreciation of stridor or carotid bruits Respiratory: normal respiratory effort; no respiratory distress Prolonged phase of exhalation. Cardiovascular: Rate/Rhythm: regular rate and regular rhythm Gastrointestinal (Abdomen): normal bowel sounds, soft, nontender, no hepatosplenomegaly Neurologic: Nonfocal Psychiatric: A+Ox3, euthymic affect Results & Data Results & Data ([facility]) Vital Signs (Past 12 Hours) Vital Signs Temp Pulse Pulse Resp BP BP Pulse Ox 07/01/21 12:01 36.4 C L 97 H 14 117/70 90 07/01/21 11:14 91 H 22 90 07/01/21 08:05 36.6 C 81 16 163/84 H 90 07/01/21 07:55 84 07/01/21 07:50 80 20 90 07/01/21 03:08 36.5 C 82 17 145/71 H 91 Vital signs, labs and imaging personally reviewed PG Care Time/CCT Total # of Minutes Spent Total Time Spent with Patient: Total time spent is greater than 50% in coordination of care (as documented) at patient's floor/unit and/or counseling patient: Coding Level of Care Code 81471 Subseq Hosp Care Lvl 2 Diagnoses Acute on chronic respiratory failure J96.20 SOB (shortness of breath) R06.02 COPD (chronic obstructive pulmonary disease) with emphysema J43.9 COPD exacerbation J44.1
[2021-07-01] MEDS: ENOXAPARIN INJ 40 MG/0.4 ML SYR SQ SCH (13:53)
--- NOTE | 2021-07-01 14:54 | Hospitalist Progress Note ---
Date of Service July 01, 2021 Assessment & Plan (1) Acute on chronic respiratory failure: Plan: Management as below (2) COPD (chronic obstructive pulmonary disease) with emphysema: Plan: per Dr. Regan's notes with addendum: Patient is a 71 yr male with H/O Chronic respiratory failure, COPD on chronic 6 L O2, HTN, cirrhosis, depression, anxiety, PTSD, h/o tobacco use, chronic anemia presented to ER with complaint of increased shortness of breath for the past 3 days and reported pulse ox down to the 60s at home Acute on chronic respiratory failure with hypoxia/hypercapnia Chronic oxygen dependency--6 L at baseline Acute COPD exacerbation Negative COVID-19 PCR, negative influenza and RSV PCR. 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 Required 15 L with ambulation on 06/26/21 Continue IV Solu-Medrol Desaturates quickly with exertion 06/30 wheezing resolved but remains on 8-10 L NC at rest, with ambulation, desats to 83% while on 10 L NC repeat CXR: No significant interval change in bilateral interstitial and patchy alveolar opacities, particularly at the lung bases bilaterally. 07/01 Seems to be improving clinically overall Now down to 7 L of oxygen supplement via nasal cannula Goal O2 sats 86 to 89% continue IV Solumedrol- increased to 40mg BID--> change to p.o. Solu-Medrol tomorrow added Cefepime IV ff up sputum culture: Normal mary kate Nebs hypertonic saline incentive spirometry Breo, Incruse Mucinex Consulted pulmonary service, appreciate the recommendations (3) HTN (hypertension): Plan: Continue diltiazem (4) Depression: Plan: Continue buspirone, sertraline, trazodone DVT Prophylaxis Lovenox SQ Code Status Conditional code Is DNI, wants CPR as per discussion Admission and Anticipated Discharge Date Admission Date: June 14, 2021 Subjective Follow-up for COPD exacerbation, pneumonia, etc. Seen resting in bed, comfortable, on 7 L of oxygen via nasal cannula, saturating 93% States he feels improved today No shortness of breath, less cough No chest pain No other symptoms Review of Systems Review of Systems: all noted and negative except for above Physical Exam Physical Exam: General- oriented x 3, not in distress, speaks in sentences with no effort or accessory muscle use Eyes- anicteric Neck- no JVD Lungs-diminished breath sounds bilaterally but clear No wheezing noted Heart- normal rate, regular rhythm; no murmurs Abdomen- normal bowel sounds, nondistended, soft, nontender Extremities- no pretibial edema, no calf tenderness Neuro- alert, oriented x 3; no gross focal neurologic deficits Skin- warm & dry Results & Data Results & Data ([facility]) Vital Signs (Past 12 Hours) Vital Signs Temp Pulse Pulse Resp BP BP Pulse Ox 07/01/21 14:35 84 18 94 07/01/21 12:01 36.4 C L 97 H 14 117/70 90 07/01/21 11:14 91 H 22 90 07/01/21 08:05 36.6 C 81 16 163/84 H 90 07/01/21 07:55 84 07/01/21 07:50 80 20 90 07/01/21 03:08 36.5 C 82 17 145/71 H 91 all noted and reviewed including below
[2021-07-01] MEDS: traMADol HCL 50 MG TABLET PO PRN ×2 (15:42→20:11)
[2021-07-01] MEDS: traZODone HCL 50 MG TAB PO SCH (20:11)
[2021-07-01] MEDS: SERTRALINE HCL 100 MG TABLET PO SCH (20:12)
[2021-07-01] MEDS: LORazepam 0.5 MG TAB PO PRN (20:12)
[2021-07-01] MEDS: busPIRone 5 MG TAB PO SCH (20:14)
[2021-07-02] MEDS: CEFEPIME 2,000 MG in SYRINGE 0 ML IV SCH ×3 (02:20→17:02)
[2021-07-02] MEDS: ALBUT/IPRATROP 3MG/0.5MG NEB 3 ML VIAL NEB SCH ×4 (07:00→20:04)
[2021-07-02] MEDS: SODIUM CHLOR 7% 4 ML NEB NEB SCH ×2 (07:01→20:05)
[2021-07-02] MEDS: FLUTICASONE/VILANTEROL 100/25MCG 14 PUFFS/INHALER INH SCH (08:07)
[2021-07-02] MEDS: UMECLIDINIUM BROMIDE 62.5MCG/BLISTER 7 PUFFS/INHALER INH SCH (08:07)
[2021-07-02] MEDS: dilTIAZem HCL 240 MG CAPCR PO SCH (08:08)
[2021-07-02] MEDS: ASPIRIN 81 MG ECTAB PO SCH (08:08)
[2021-07-02] MEDS: ISOSORBIDE MONO EXTENDED REL 30 MG TABCR PO SCH (08:08)
[2021-07-02] MEDS: CHOLECALCIFEROL 1,000 UNITS 25 MCG TAB PO SCH (08:08)
[2021-07-02] MEDS: guaiFENesin 600 MG TABCR PO SCH ×2 (08:09→21:16)
[2021-07-02] MEDS: PANTOprazole 40 MG TAB PO SCH ×2 (08:09→21:18)
[2021-07-02] MEDS: traMADol HCL 50 MG TABLET PO PRN ×3 (08:13→21:27)
[2021-07-02] MEDS ORDERED: methylPREDNISolone 4 MG TAB, 6 DAY TAPER PO SCH (09:00)
[2021-07-02] MEDS: methylPREDNISolone 4 MG TAB PO SCH ×4 (10:15→21:17)
--- NOTE | 2021-07-02 11:18 | Hospitalist Progress Note ---
Date of Service July 02, 2021 Assessment & Plan (1) Acute on chronic respiratory failure: Plan: Management as below (2) COPD (chronic obstructive pulmonary disease) with emphysema: Plan: per Dr. Regan's notes with addendum: Patient is a 71 yr male with H/O Chronic respiratory failure, COPD on chronic 6 L O2, HTN, cirrhosis, depression, anxiety, PTSD, h/o tobacco use, chronic anemia presented to ER with complaint of increased shortness of breath for the past 3 days and reported pulse ox down to the 60s at home Acute on chronic respiratory failure with hypoxia/hypercapnia Chronic oxygen dependency--6 L at baseline Acute COPD exacerbation Negative COVID-19 PCR, negative influenza and RSV PCR. 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 Required 15 L with ambulation on 06/26/21 Continue IV Solu-Medrol Desaturates quickly with exertion 06/30 wheezing resolved but remains on 8-10 L NC at rest, with ambulation, desats to 83% while on 10 L NC repeat CXR: No significant interval change in bilateral interstitial and patchy alveolar opacities, particularly at the lung bases bilaterally. 07/02 Improving, now at 5 L of oxygen by nasal cannula Ambulated yesterday only using 6 L Goal O2 sats 86 to 89% continue IV Solumedrol- increased to 40mg BID--> change to p.o. Medrol Dosepak today added Cefepime IV ff up sputum culture: Normal mary kate, final report pending Nebs hypertonic saline incentive spirometry Nir Mosesex Consulted pulmonary service, appreciate the recommendations (3) HTN (hypertension): Plan: Continue diltiazem (4) Depression: Plan: Continue buspirone, sertraline, trazodone DVT Prophylaxis Lovenox SQ Code Status Conditional code Is DNI, wants CPR as per discussion Admission and Anticipated Discharge Date Admission Date: June 14, 2021 Subjective Follow-up for COPD exacerbation, etc. Seen resting in bed, on 5 L of oxygen, saturating 92% States he feels improved overall Breathing is improving Less cough No other symptoms Review of Systems Review of Systems: all noted and negative except for above Physical Exam Physical Exam: General- oriented x 3, not in distress, speaks in sentences with no effort or accessory muscle use Eyes- anicteric Neck- no JVD Lungs-diminished breath sounds bilaterally, mild wheeze at the bases, better air entry noted bilaterally Heart- normal rate, regular rhythm; no murmurs Abdomen- normal bowel sounds, nondistended, soft, nontender Extremities- no pretibial edema, no calf tenderness Neuro- alert, oriented x 3; no gross focal neurologic deficits Skin- warm & dry Results & Data Results & Data ([facility]) Vital Signs (Past 12 Hours) Vital Signs Temp Pulse Pulse Resp BP BP Pulse Ox 07/02/21 11:04 88 18 90 07/02/21 10:46 92 07/02/21 07:43 36.5 C 92 H 22 144/78 H 90 07/02/21 07:20 81 07/02/21 07:02 80 18 93 07/02/21 02:49 36.8 C 90 18 104/62 91 07/02/21 00:00 65 all noted and reviewed including below
[2021-07-02] MEDS: NYSTATIN SUSP 500,000 U/5 ML UDC PO SCH ×3 (12:36→21:16)
[2021-07-02] MEDS: ENOXAPARIN INJ 40 MG/0.4 ML SYR SQ SCH (12:37)
[2021-07-02] MEDS: SERTRALINE HCL 100 MG TABLET PO SCH (21:16)
[2021-07-02] MEDS: busPIRone 5 MG TAB PO SCH (21:18)
[2021-07-02] MEDS ORDERED: SODIUM CHLORIDE 0.65% NA SOLN 45 ML (OCEAN) ONE (21:22)
[2021-07-02] MEDS: traZODone HCL 50 MG TAB PO SCH (21:26)
[2021-07-02] MEDS: LORazepam 0.5 MG TAB PO PRN (21:27)
[2021-07-02] MEDS ORDERED: SODIUM CHLORIDE 0.65% NA SOLN 45 ML (OCEAN) PRN (21:47)
[2021-07-03] MEDS: CEFEPIME 2,000 MG in SYRINGE 0 ML IV SCH (02:20)
[2021-07-03] MEDS: ALBUT/IPRATROP 3MG/0.5MG NEB 3 ML VIAL NEB SCH ×4 (07:09→19:22)
[2021-07-03] MEDS: SODIUM CHLOR 7% 4 ML NEB NEB SCH ×2 (07:09→19:22)
[2021-07-03 09:09] LABS: Calcium 8.5 mg/dl (8.5-10.1); Creatinine Clr Calc Pharmacy 93.5 ml/min; Est GFR (African American) 103.1 ml/min; Potassium 4.3 mmol/L (3.5-5.1)
[2021-07-03] MEDS: UMECLIDINIUM BROMIDE 62.5MCG/BLISTER 7 PUFFS/INHALER INH SCH (09:21)
[2021-07-03] MEDS: FLUTICASONE/VILANTEROL 100/25MCG 14 PUFFS/INHALER INH SCH (09:21)
[2021-07-03] MEDS: NYSTATIN SUSP 500,000 U/5 ML UDC PO SCH ×4 (09:22→21:01)
[2021-07-03] MEDS: ASPIRIN 81 MG ECTAB PO SCH (09:22)
[2021-07-03] MEDS: ISOSORBIDE MONO EXTENDED REL 30 MG TABCR PO SCH (09:22)
[2021-07-03] MEDS: guaiFENesin 600 MG TABCR PO SCH ×2 (09:23→21:03)
[2021-07-03] MEDS: dilTIAZem HCL 240 MG CAPCR PO SCH (09:23)
[2021-07-03] MEDS: CHOLECALCIFEROL 1,000 UNITS 25 MCG TAB PO SCH (09:23)
[2021-07-03] MEDS: PANTOprazole 40 MG TAB PO SCH ×2 (09:23→21:04)
[2021-07-03] MEDS: methylPREDNISolone 4 MG TAB PO SCH ×3 (09:24→17:12)
[2021-07-03] MEDS ORDERED: methylPREDNISolone 4 MG TAB PO SCH ×2 (11:15→21:00)
[2021-07-03] MEDS: ENOXAPARIN INJ 40 MG/0.4 ML SYR SQ SCH (13:08)
--- NOTE | 2021-07-03 17:13 | Hospitalist Progress Note ---
Date of Service July 03, 2021 Assessment & Plan (1) Acute on chronic respiratory failure: Plan: Management as below (2) COPD (chronic obstructive pulmonary disease) with emphysema: Plan: per Dr. Regan's notes with addendum: Patient is a 71 yr male with H/O Chronic respiratory failure, COPD on chronic 6 L O2, HTN, cirrhosis, depression, anxiety, PTSD, h/o tobacco use, chronic anemia presented to ER with complaint of increased shortness of breath for the past 3 days and reported pulse ox down to the 60s at home Acute on chronic respiratory failure with hypoxia/hypercapnia Chronic oxygen dependency--6 L at baseline Acute COPD exacerbation Negative COVID-19 PCR, negative influenza and RSV PCR. 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 Required 15 L with ambulation on 06/26/21 Continue IV Solu-Medrol Desaturates quickly with exertion 06/30 wheezing resolved but remains on 8-10 L NC at rest, with ambulation, desats to 83% while on 10 L NC repeat CXR: No significant interval change in bilateral interstitial and patchy alveolar opacities, particularly at the lung bases bilaterally. 07/03 Improving, now at 4 L of oxygen by nasal cannula Requiring 10 L with ambulation per two-step exercise test Goal O2 sats 86 to 89% given IV Solumedrol- increased to 40mg BID--> change to p.o. Medrol Dosepak Day 2 ff up sputum culture: Normal mary kate Nebs hypertonic saline incentive spirometry Breo, Incruse Mucinex Bactrim 3xweek m/w/f per Pulm Consulted pulmonary service, appreciate the recommendations (3) HTN (hypertension): Plan: Continue diltiazem (4) Depression: Plan: Continue buspirone, sertraline, trazodone DVT Prophylaxis Lovenox SQ Code Status Conditional code Is DNI, wants CPR as per discussion Admission and Anticipated Discharge Date Admission Date: June 14, 2021 Subjective Follow-up for COPD exacerbation, acute on chronic hypoxic respiratory failure, etc. Seen sitting up in bed, on 4 L of oxygen 90% saturation States he feels much better overall Breathing is improving Less cough No chest pain, palpitations, dizziness, nausea vomiting No other symptoms Review of Systems Review of Systems: all noted and negative except for above Physical Exam Physical Exam: General- oriented x 3, not in distress, speaks in sentences with no effort or accessory muscle use Eyes- anicteric Neck- no JVD Lungs-less diminished breath sounds, faint wheeze at the bases, no crackles Heart- normal rate, regular rhythm; no murmurs Abdomen- normal bowel sounds, nondistended, soft, nontender Extremities- no pretibial edema, no calf tenderness Neuro- alert, oriented x 3; no gross focal neurologic deficits Skin- warm & dry Results & Data Results & Data ([facility]) Vital Signs (Past 12 Hours) Vital Signs Temp Pulse Pulse Pulse Pulse Pulse Pulse 07/03/21 15:35 36.7 C 07/03/21 14:58 84 07/03/21 14:25 07/03/21 14:00 90 91 H 96 H 121 H 126 H 07/03/21 11:31 36.5 C 07/03/21 11:18 07/03/21 07:58 36.7 C 07/03/21 07:28 77 07/03/21 07:11 Pulse Pulse Pulse Pulse Pulse Resp Resp 07/03/21 15:35 82 19 07/03/21 14:58 07/03/21 14:25 68 20 07/03/21 14:00 127 H 111 H 86 90 20 07/03/21 11:31 86 19 07/03/21 11:18 87 18 07/03/21 07:58 86 18 07/03/21 07:28 07/03/21 07:11 78 18 Resp Resp Resp Resp Resp Resp Resp 07/03/21 15:35 07/03/21 14:58 07/03/21 14:25 07/03/21 14:00 20 20 24 24 22 24 20 07/03/21 11:31 07/03/21 11:18 07/03/21 07:58 07/03/21 07:28 07/03/21 07:11 Resp BP BP Pulse Ox Pulse Ox Pulse Ox Pulse Ox 07/03/21 15:35 132/72 91 07/03/21 14:58 07/03/21 14:25 95 07/03/21 14:00 20 83 L 85 L 90 07/03/21 11:31 137/70 92 07/03/21 11:18 93 07/03/21 07:58 135/65 90 07/03/21 07:28 07/03/21 07:11 97 Pulse Ox Pulse Ox Pulse Ox Pulse Ox Pulse Ox Pulse Ox 07/03/21 15:35 07/03/21 14:58 07/03/21 14:25 07/03/21 14:00 86 L 86 L 90 85 L 89 L 74 L 07/03/21 11:31 07/03/21 11:18 07/03/21 07:58 07/03/21 07:28 07/03/21 07:11 all noted and reviewed including below
[2021-07-03] MEDS: traMADol HCL 50 MG TABLET PO PRN ×2 (17:14→23:28)
[2021-07-03] MEDS ORDERED: SULFAMETHOXAZOLE/TRIMETHOPRIM DS 800/160MG TAB PO SCH (17:30)
[2021-07-03] MEDS: traZODone HCL 50 MG TAB PO SCH (21:01)
[2021-07-03] MEDS: busPIRone 5 MG TAB PO SCH (21:03)
[2021-07-03] MEDS: SERTRALINE HCL 100 MG TABLET PO SCH (21:04)
[2021-07-04] MEDS: methylPREDNISolone 4 MG TAB PO SCH ×3 (06:01→17:34)
[2021-07-04] MEDS: SODIUM CHLOR 7% 4 ML NEB NEB SCH (07:06)
[2021-07-04] MEDS: ALBUT/IPRATROP 3MG/0.5MG NEB 3 ML VIAL NEB SCH ×3 (07:06→14:50)
[2021-07-04] MEDS: ASPIRIN 81 MG ECTAB PO SCH (08:48)
[2021-07-04] MEDS: CHOLECALCIFEROL 1,000 UNITS 25 MCG TAB PO SCH (08:49)
[2021-07-04] MEDS: FLUTICASONE/VILANTEROL 100/25MCG 14 PUFFS/INHALER INH SCH (08:49)
[2021-07-04] MEDS: dilTIAZem HCL 240 MG CAPCR PO SCH (08:49)
[2021-07-04] MEDS: guaiFENesin 600 MG TABCR PO SCH (08:50)
[2021-07-04] MEDS: ISOSORBIDE MONO EXTENDED REL 30 MG TABCR PO SCH (08:50)
[2021-07-04] MEDS: NYSTATIN SUSP 500,000 U/5 ML UDC PO SCH ×3 (08:50→17:34)
[2021-07-04] MEDS: PANTOprazole 40 MG TAB PO SCH (08:51)
[2021-07-04] MEDS: UMECLIDINIUM BROMIDE 62.5MCG/BLISTER 7 PUFFS/INHALER INH SCH (08:51)
[2021-07-04] MEDS: traMADol HCL 50 MG TABLET PO PRN (13:17)
[2021-07-04] MEDS: ENOXAPARIN INJ 40 MG/0.4 ML SYR SQ SCH (13:19)
--- NOTE | 2021-07-04 13:29 | Hospitalist Progress Note ---
Date of Service July 04, 2021 Assessment & Plan (1) Acute on chronic respiratory failure: Plan: Management as below (2) COPD (chronic obstructive pulmonary disease) with emphysema: Plan: per Dr. Regan's notes with addendum: Patient is a 71 yr male with H/O Chronic respiratory failure, COPD on chronic 6 L O2, HTN, cirrhosis, depression, anxiety, PTSD, h/o tobacco use, chronic anemia presented to ER with complaint of increased shortness of breath for the past 3 days and reported pulse ox down to the 60s at home Acute on chronic respiratory failure with hypoxia/hypercapnia Chronic oxygen dependency--6 L at baseline Acute COPD exacerbation Negative COVID-19 PCR, negative influenza and RSV PCR. 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 Required 15 L with ambulation on 06/26/21 Continue IV Solu-Medrol Desaturates quickly with exertion 06/30 wheezing resolved but remains on 8-10 L NC at rest, with ambulation, desats to 83% while on 10 L NC repeat CXR: No significant interval change in bilateral interstitial and patchy alveolar opacities, particularly at the lung bases bilaterally. 07/04 Improving, now at 6 L of oxygen by nasal cannula Requiring 10 L with ambulation per two-step exercise test Goal O2 sats 86 to 89% given IV Solumedrol- increased to 40mg BID--> change to p.o. Medrol Dosepak Day 3 ff up sputum culture: Normal mary kate Nebs hypertonic saline incentive spirometry Breo, Incruse Mucinex Bactrim 3xweek m/w/f per Pulm Consulted pulmonary service, appreciate the recommendations discharge on Medrol dose bre, Bactrim m/w/f (3) HTN (hypertension): Plan: Continue diltiazem (4) Depression: Plan: Continue buspirone, sertraline, trazodone DVT Prophylaxis Lovenox SQ Code Status Conditional code Is DNI, wants CPR as per discussion Admission and Anticipated Discharge Date Admission Date: June 14, 2021 Subjective ff up for COPD exacerbation, etc seen resting in bed, comfortable on 5 L NC not in distress states he feels fine overall no dyspnea, chest pain no other symptoms eager for discharge Review of Systems Review of Systems: all noted and negative except for above Physical Exam Physical Exam: General- oriented x 3, not in distress, speaks in sentences with no effort or accessory muscle use Eyes- anicteric Neck- no JVD Lungs- diminished but clear breath sounds bilaterally, no rales/wheezes Heart- normal rate, regular rhythm; no murmurs Abdomen- normal bowel sounds, nondistended, soft, nontender Extremities- no pretibial edema, no calf tenderness Neuro- alert, oriented x 3; no gross focal neurologic deficits Skin- warm & dry Results & Data Results & Data ([facility]) Vital Signs (Past 12 Hours) Vital Signs Temp Pulse Pulse Resp BP BP Pulse Ox 07/04/21 11:00 36.9 C 88 20 132/70 93 07/04/21 10:17 89 93 07/04/21 08:00 76 07/04/21 07:06 67 18 97 07/04/21 07:00 36.3 C L 81 20 159/72 H 93 07/04/21 03:00 36.8 C 72 21 135/73 94 all noted and reviewed including below
[2021-07-04] MEDS ORDERED: SULFAMETHOXAZOLE/TRIMETHOPRIM DS 800/160MG TAB PO SCH (16:15)
--- NOTE | 2021-07-04 17:19 | Discharge Summary ---
Date of Service July 04, 2021 Admission HPI Per Admitting Provider Patient is 71y/o M with PMH chronic respiratory failure, COPD on chronic 6 L O2, HTN, cirrhosis, depression, anxiety, PTSD, h/o tobacco use, chronic anemia presented to ER with complaint of increased shortness of breath for the past 3 days. Patient reports chronic shortness of breath with exertion at baseline. States increased shortness of breath with exertion the past 3 days. Today noted pulse ox to drop down to the 60s with ambulation. He reports he ambulates with use of walker with seat. Patient states he has been having lightheadedness with ambulating. He states he had a fall 2 days ago. Patient denies any chest pain, syncope, palpitations. Denies hitting his head. Patient reports chronic cough however past couple of days he has noted some white sputum production. He typically uses albuterol neb 2-3 times a day however past couple days has felt like he needed it more frequently. Is on Symbicort and Spiriva. Patient with history of hospitalization 05/09/2021-05/16/2021 for acute on chronic respiratory failure. Upon discharge he was given azithromycin three times a week and pulmonology was consulted and had recommended to consider outpatient AVAPS/BPAP for chronic hypercarbic respiratory failure. Patient reports [facility] with [facility] and he is still on his chronic inhalers and using bipap HS and was given f/u in 6 months. Denies fever/chills, diaphoresis, N/V/D/C, BRUNO, syncope, vision changes, neck pain, CP, orthopnea, palpitations, hemoptysis, sore throat, choking, otalgia, rhinorrhea, abdominal pain, paresthesias, extremity weakness, extremity edema, rashes, urinary symptoms. Admission Exam (Per Admitting) Constitutional General: mild respiratory distress, chronic ill appearing elderly male Head: normocephalic, atraumatic Eyes: conjunctiva non-injected, anicteric ENT: hard of hearing, normal inspection external ears, nose, mucous membranes moist Neck: supple, trachea midline Lungs: Respirations 24, pulse ox 92% on 6L oxymask, able to speak in short sentences, +diminished throughout, +scattered wheezing CV: tachycardia, rate 104, no murmur, no pretibial edema Abd: normal BS, soft, non-tender Ext: no cyanosis, no calf tenderness Neuro: A&O x 3, no focal deficits noted, normal affect Skin: warm, dry Discharge Data Consultations 06/14/21 11:47 ED Decision to Admit Stat 06/14/21 13:17 Consult Pulmonology Routine 06/30/21 07:36 Consult Pulmonology Routine Procedures Performed XR chest 1V portable HISTORY: Dyspnea COMPARISON: Chest 05/09/2021. FINDINGS: No pneumothorax. No pleural effusions. The heart is normal in size. Central pulmonary enlargement remains unchanged. This favors pulmonary arterial hypertension. Emphysema and chronic interstitial changes again noted within the mid to lower lung zones. This remains unchanged. No new focal lung consolidations. No evidence for pulmonary edema. IMPRESSION: 1. No change in the emphysema and chronic interstitial change at the lung bases. 2. No new focal lung consolidations. 3. Pulmonary arterial hypertension is again noted. ACT 112: Negative or not required by law. Hospital Course (1) Acute on chronic respiratory failure: Management as below (2) COPD (chronic obstructive pulmonary disease) with emphysema: per Dr. Regan's notes with addendum: Patient is a 71 yr male with H/O Chronic respiratory failure, COPD on chronic 6 L O2, HTN, cirrhosis, depression, anxiety, PTSD, h/o tobacco use, chronic anemia presented to ER with complaint of increased shortness of breath for the past 3 days and reported pulse ox down to the 60s at home Acute on chronic respiratory failure with hypoxia/hypercapnia Chronic oxygen dependency--6 L at baseline Acute COPD exacerbation Negative COVID-19 PCR, negative influenza and RSV PCR. 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 Medrol Dosepak ff up sputum culture: Normal mary kate Nebs hypertonic saline incentive spirometry Breo, Incruse Mucinex Bactrim 3xweek m/w/f per Pulm for prophylaxis Consulted pulmonary service, appreciate the recommendations discharge on Medrol dose bre, Bactrim m/w/f, nebs every 6 hours, continue usual inhalers (3) HTN (hypertension): Continue diltiazem (4) Depression: Continue buspirone, sertraline, trazodone DVT Prophylaxis Lovenox SQ Disposition discharge to home with home services follow-up with primary care physician in 1 week follow-up with tax manager cpa as an outpatient
[2021-07-05] MEDS ORDERED: methylPREDNISolone 4 MG TAB PO SCH (07:00)
[2021-07-06] MEDS ORDERED: methylPREDNISolone 4 MG TAB PO SCH (07:00)
[2021-07-07] MEDS ORDERED: methylPREDNISolone 4 MG TAB PO SCH (07:00)
== END 2021-07-04 18:27 | disposition home health service (06) | DRG 189 ==
LOC: ED 09:36 → SUATTDRO 12:40 → EDINP 12:40 → 2S 18:46

== ENCOUNTER 2021-09-18 13:22 | Inpatient (IN) ==
[2021-09-18] MEDS ORDERED: methylPREDNISolone 125 MG/2 ML VIAL IV STA (13:32)
[2021-09-18] MEDS ORDERED: guaiFENesin 600 MG TABCR PO STA (13:32)
[2021-09-18] MEDS ORDERED: ALBUT/IPRATROP 3MG/0.5MG NEB 3 ML VIAL NEB ONE ×2 (13:32→15:30)
[2021-09-18] MEDS ORDERED: SODIUM CHLORIDE 0.9% 1000ML 1,000 ML IV ONE ×2 (13:32→15:30)
--- NOTE | 2021-09-18 13:38 | Emergency Department Note ---
Impression & Plan Acute on chronic respiratory failure with hypoxia and hypercapnia, COPD exacerbation, SIRS (systemic inflammatory response syndrome) ED Provider Note NAME: PANTERA AVILEZ AGE: 71 SEX: M ARRIVES VIA: Ambulance INFORMANT: Patient ED PROVIDER(S): Hiram Main MD CHIEF COMPLAINT: SOB PLAN: Disposition: Admit MEDICAL DECISION MAKING: The patient is a pleasant 71-year-old gentleman with a past medical history of chronic respiratory failure secondary to COPD on 4 L home O2 who presents to the emergency department via EMS with worsening shortness of breath, cough, congestion with yellow productive sputum over the past several days. Patient denies any fevers, chills, nausea, vomit, diarrhea or urinary symptoms.The patient was found to be in the mid 80s on his home oxygen by EMS. He was given DuoNeb in route and placed on 100% oxygen. On arrival the patient is acute on chronically ill-appearing but no acute distress, afebrile with stable vital signs. He appears clinically dry. He has diminished breath sounds throughout with underlying wheezing with prolonged expiratory phase. On arrival the patient is acute on chronically ill-appearing but no acute distress, afebrile with stable vital signs. He appears clinically dry. He has diminished breath sounds throughout with underlying wheezing with prolonged e xpiratory phase. EKG without overt acute ischemia. Check x-ray with chronic interstitial and alveolar opacities when compared to June 2021. WBC 18.4K with mild left shift. H/H 12.3/30.9 similar to prior range of values. Platelets within normal limits. Chemistry without metabolic acidosis. Lactic acid 1.1, within normal limits. Electrolytes and LFTs without significant abnormality. Troponin 0.03, within normal limits. Procalcitonin is not significantly elevated at 0.17. UA appears contaminated with epithelial cells present and patient denies any urinary symptoms. Covid-19 PCR negative. Influenza and RSV PCR negative. Given the patient's leukocytosis and acute on chronic respiratory failure he was treated empirically with cefepime and azithromycin. Upon reevaluation the patient did have some improvement in initial symptoms after continuous hour-long DuoNeb, Solu-Medrol, guaifenesin and 2L IV fluid hydration. Given his blood pressure was stable 30cc/kg, deferred. Case was discussed with Shakila Bautista [facility] PAC with Dr. Hopkins, [facility] hospitalist, who will evaluate the patient for admission. Triage Nursing notes reviewed and agree them. Prior medical records reviewed Vital Signs: reviewed and remarkable for tachycardia, hypoxia. Differential diagnosis: Reactive airway disease, pneumonia, pneumothorax, COPD, CHF, infections, cardiac ischemia, pulmonary embolism, musculoskeletal, gastrointestinal, as well as other pathologies. ER treatment provided: See below. Diagnostics interpreted by me: ECG: Normal sinus rhythm, 99 bpm, no ectopy, nonspecific ST and T wave abnormality, no overt ST elevation or depression, QTC 410, QRS 70 Cardiac Monitoring: An order for continuous cardiac monitoring was placed and demonstrated normal sinus rhythm, 99 bpm, no ectopy. Laboratory studies: See below Imaging studies: See below Consultation(s): Case was discussed with Shakila Pedraza PAC with Dr. Hopkins [facility] Hospitalist, who will evaluate the patient for admission. HPI: The patient is a pleasant 71-year-old gentleman with a past medical history of chronic respiratory failure secondary to COPD on 4 L home O2 who presents to the emergency department via EMS with worsening shortness of breath, cough, congestion with yellow productive sputum over the past several days. Patient denies any fevers, chills, nausea, vomit, diarrhea or urinary symptoms.The patient was found to be in the mid 80s on his home oxygen by EMS. He was given DuoNeb in route and placed on 100% oxygen. ROS: See above HPI for pertinent positives & negatives. A total of 10 systems reviewed and were otherwise negative. VITALS:See Below PHYSICAL EXAMINATION: GENERAL: Awake, alert, acute on chronically ill-appearing, in no distress HENT: Normocephalic, atraumatic. Oropharynx with dry mucous membranes and ot herwise unremarkable. EYES: Normal conjunctiva. Sclera non-icteric. NECK: Supple. No nuchal rigidity. FROM. No JVD. RESPIRATORY: Diminished breath sounds of bilateral lung cisneros with underlying wheeze with prolonged expiratory phase. Mildly dyspneic without significant increased work of breathing. CARDIAC: Regular rate, normal rhythm. Extremities warm and well perfused. Pulses equal. ABDOMEN: Soft, non-distended. No tenderness to palpation. No rebound or guarding. No masses. RECTAL: Deferred. MUSCULOSKELETAL: Chest examination reveals no tenderness. The back is symmetrical on inspection without obvious abnormality. There is no CVA tenderness to palpation. No joint edema. LOWER EXTREMITIES: Calves are equal size bilaterally and non-tender. No edema. No discoloration. NEURO: Normal sensorium. No sensory or motor deficits noted. SKIN: No rash or jaundice noted. ED COURSE: Critical Care: I have personally spent greater than 35 minutes of critical care time in the direct management of this patient. This includes bedside care, interpretation of diagnostic studies, and testing, discussion with consultants, patient, and family members, and other required patient management activities. This 35 minutes is in excess of all separately billable procedures. Hiram Main MD Past Med/Surg History Medical History Anemia COPD (chronic obstructive pulmonary disease) with emphysema COPD exacerbation Depression GERD (gastroesophageal reflux disease) Hearing deficit [place] 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 Stan[place] exposure History of COVID-19 05/2020 - hospitalized at [facility] - sob, cough, generalized weakness --> pneumonia; still requiring more supplemental oxygen since having Covid (currently on 6 lpm cont home o2, prior to covid was only on 4 lpm) History of kidney stones History of tobacco abuse HTN (hypertension) On home O2 cont @ 6 lpm Osteoarthritis Palliative care encounter PTSD (post-traumatic stress disorder) Pulmonary nodules Thrombocytopenia Surgical History Dilatation of ureter H/O hernia repair History of appendectomy History of cardiac cath x 2 - most recent [place] 2010 - no stents; [place] [facility] [place] History of colonoscopy History of extraction of renal calculus History of tonsillectomy Loss of teeth due to extraction S/P arthroscopic surgery of right knee Family History Mother Colon cancer Father FH: kidney cancer Other Cancer Social History Smoking Status: Former smoker Tobacco Type: Cigarettes Cigarettes Per Day: 40 pack year hx; Second Hand Exposure: No; Hx Alcohol Use: No Hx Substance Use: No Preferred Language: Korean Communication Ability: Effective Automation Qa Analyst Required: No Beliefs That Will Affect Care: None marital status: Current Living Situation: Spouse Current Living Situation Comment: lives with spouse 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 Feels Safe at Home: Yes Assistive Devices: Oxygen - Continuous Allergies Allergies Allergy/AdvReac Type Severity Reaction Status Date / Time bee venom protein (honey bee) Allergy Severe ANAPHYLAXIS Verified 09/18/21 14:17 amoxicillin Allergy Intermediate FACIAL Verified 09/18/21 14:17 SWELLING (EYES SWELLED SHUT) clavulanic acid Allergy Intermediate FACIAL Verified 09/18/21 14:17 SWELLING (EYES SWELLED SHUT) pneumococcal vaccine Allergy Intermediate SWELLING Verified 09/18/21 14:17 Tltushb-OJM-ShS Reductase Allergy Intermediate CPK'S GO Verified 09/18/21 14:17 Inhibitor THROUGH [Bbmmfjc-Wib-Nod Reductase ROOF Inhibitor] prednisone AdvReac Intermediate confusion Verified 09/18/21 14:17 and agitation Home Meds Home Medications Medication Instructions Recorded Confirmed buspirone 5 mg tablet 5 mg PO QPM 04/08/18 09/18/21 cetirizine 10 mg tablet 10 mg PO DAILY PRN 04/08/18 09/18/21 omeprazole 20 mg capsule,delayed 20 mg PO BID 04/08/18 09/18/21 release sertraline 100 mg tablet 200 mg PO HS 04/08/18 09/18/21 tiotropium bromide 18 mcg capsule 1 cap INHALATION QPM 04/08/18 09/18/21 with inhalation device (Spiriva with HandiHaler) trazodone 150 mg tablet 150 mg PO HS 04/08/18 09/18/21 albuterol sulfate 90 mcg/actuation 2 puff INHALATION Q6H PRN 07/04/18 09/18/21 aerosol inhaler budesonide-formoterol HFA 160 2 puff INHALATION BID 08/22/18 09/18/21 mcg-4.5 mcg/actuation aerosol inhaler (Symbicort) epinephrine 0.3 mg/0.3 mL 0.3 mg IM DIRECTED PRN 08/22/18 09/18/21 injection, auto-injector (EpiPen) guaifenesin 200 mg tablet 400 mg PO BID 08/22/18 09/18/21 cholecalciferol (vitamin D3) 25 1,000 unit PO QAM 08/19/19 09/18/21 mcg (1,000 unit) capsule (Vitamin D3) cyanocobalamin (vitamin B-12) 1,000 mcg PO 2XWK 07/12/21 04/11/22 1,000 mcg tablet (Vitamin B-12) diltiazem HCl 240 mg 240 mg PO QAM 12/19/20 09/18/21 capsule,extended release 24 hr, controlled Previous Rx's Medication Instructions Recorded aspirin 81 mg tablet,delayed 81 mg PO QAM #30 tab 05/16/21 release isosorbide mononitrate 30 mg 30 mg PO QAM #30 tab 05/16/21 tablet,extended release 24 hr albuterol sulfate 2.5 mg INHALATION QID 14 Days #168 07/04/21 ml sodium chloride 0.65 % nasal spray 1 spray NA Q2H 30 Days #1 btl 07/04/21 aerosol (Saline Mist) Results & Data (ED) Vital Signs Vital Signs - 24 hr 09/18/21 13:30 09/18/21 13:31 09/18/21 13:35 Temperature 36.8 C Temperature Source Oral Pulse Rate 98 H 95 H Pulse Rate [Apical] Pulse Rate from SpO2 Sensor 98 H Pulse Rhythm [Apical] Pulse Strength [Apical] Respiratory Rate 24 22 Respiratory Effort / Characteristics Respiratory Depth Blood Pressure 149/76 H Blood Pressure [Right Arm] Blood Pressure Mean 100 Blood Pressure Mean [Right Arm] Blood Pressure Position [Right Arm] Pulse Oximetry 98 97 Oxygen Delivery Method Non-rebreather Oxygen Flow Rate 10 Sepsis Recent Fever Within 48 Hours No Sepsis New/Unexplained Change in Mental Status No Sepsis Action Taken by Nursing No Action Required 09/18/21 13:50 09/18/21 14:00 09/18/21 15:06 Temperature Temperature Source Pulse Rate 94 H Pulse Rate [Apical] 97 H 106 H Pulse Rate from SpO2 Sensor Pulse Rhythm [Apical] Regular Pulse Strength [Apical] Normal Respiratory Rate 22 16 18 Respiratory Effort / Characteristics Spontaneous Respiratory Depth Normal Blood Pressure 136/65 Blood Pressure [Right Arm] 125/65 Blood Pressure Mean 88 Blood Pressure Mean [Right Arm] 85 Blood Pressure Position [Right Arm] Lying Pulse Oximetry 100 97 93 Oxygen Delivery Method Non-rebreather Nasal Cannula Oxygen Flow Rate 10 6 Sepsis Recent Fever Within 48 Hours Sepsis New/Unexplained Change in Mental Status Sepsis Action Taken by Nursing 09/18/21 16:42 09/18/21 17:00 Temperature Temperature Source Pulse Rate Pulse Rate [Apical] 100 H 104 H Pulse Rate from SpO2 Sensor Pulse Rhythm [Apical] Regular Pulse Strength [Apical] Normal Respiratory Rate 18 18 Respiratory Effort / Characteristics Non-Labored Spontaneous Non-Labored Respiratory Depth Normal Blood Pressure Blood Pressure [Right Arm] 141/85 H Blood Pressure Mean Blood Pressure Mean [Right Arm] 103 Blood Pressure Position [Right Arm] Pulse Oximetry 93 Oxygen Delivery Method Nasal Cannula Oxygen Flow Rate 7 Sepsis Recent Fever Within 48 Hours Sepsis New/Unexplained Change in Mental Status Sepsis Action Taken by Nursing Laboratory Data Attestation: I reviewed the patient's lab results. Result diagrams: 09/18/21 13:30 09/18/21 13:30 Lab Results 09/18/21 09/18/21 09/18/21 Range/Units 13:30 13:30 13:30 WBC 18.48 H (4.8-10.8) K/uL RBC 4.08 L (4.7-6.1) M/uL Hgb 12.3 L (14.0-18.0) g/dL Hct 38.9 L (42-52) % MCV 95.3 (80-100) fL MCH 30.1 (25-34) pg MCHC 31.6 L (32-36) g/dL RDW Std Deviation 52.4 H (36.4-46.3) fL RDW Coeff of Ren 15.2 H (11.5-14.5) % Plt Count 151 (130-400) K/uL MPV 9.8 (7.4-10.4) fL Immature Gran % (Auto) 0.5 % Neut % (Auto) 85.1 % Lymph % (Auto) 7.0 % [place] % (Auto) 7.1 % Eos % (Auto) 0.2 % Baso % (Auto) 0.1 % Neut # (Auto) 15.70 H (1.4-6.5) K/uL Lymph # (Auto) 1.30 (1.2-3.4) K/uL [place] # (Auto) 1.32 H (0.11-0.59) K/uL Eos # (Auto) 0.04 (0-0.5) K/uL Baso # (Auto) 0.02 (0-0.2) K/uL Immature Gran # (Auto) 0.10 H (0.00-0.02) K/uL Sodium 135 L (136-145) mmol/L Potassium 3.8 (3.5-5.1) mmol/L Chloride 98 (98-107) mmol/L Carbon Dioxide 31 (21-32) mmol/L Anion Gap 6 (3-11) BUN 12 (6-23) mg/dl Creatinine 0.83 (0.6-1.4) mg/dl Est Cr Clr Drug Dosing 84.3 ml/min Est GFR ( Amer) 102.6 ml/min Est GFR (Non-Af Amer) 88.5 ml/min BUN/Creatinine Ratio 14.5 (10-20) Glucose 143 H (70-99(Fasting)) mg/dl Lactate (0.4-2.0) mmol/L Calcium 9.1 (8.5-10.1) mg/dl Phosphorus 2.4 L (2.5-4.9) mg/dl Magnesium 1.9 (1.7-2.4) mg/dl Total Bilirubin 0.9 (0.2-1.0) mg/dl AST 16 (13-39) U/L ALT 12 (7-52) U/L Alkaline Phosphatase 78 (34-104) U/L Troponin I 0.03 (0-0.04) ng/ml Total Protein 6.7 (6.0-8.3) gm/dl Albumin 3.8 (3.4-5.0) gm/dl Globulin 2.9 (2.5-4.0) gm/dl Albumin/Globulin Ratio 1.3 (0.9-2) Lipase 5 L (11-82) U/L Procalcitonin 0.17 (0-0.5) ng/ml Urine Color Urine Appearance (Clear) Urine pH (4.5-7.5) Ur Specific [place] (1.000-1.030) Urine Protein (Negative) Urine Glucose (UA) (Negative) Urine Ketones (Negative) Urine Blood (Negative) Urine Nitrite (Negative) Urine Bilirubin (Negative) Urine Urobilinogen (Negative) Ur Leukocyte Esterase (Negative) Urine WBC (Auto) (0-5) /hpf Urine RBC (Auto) (0-4) /hpf U Hyaline Cast (Auto) (0-5) /lpf U Epithel Cells (Auto) (0-5) /lpf Urine Bacteria (Auto) (Negative) Ur Renal Epithelial Cell (0-5) /lpf Urine Yeast (None Prsent) SARS-CoV-2 (PCR) (Negative) Influenza Type A (PCR) (Neg) Influenza Type B (PCR) (Neg) RSV (RT-PCR) (Neg) 09/18/21 09/18/21 09/18/21 Range/Units 14:35 16:26 16:57 WBC (4.8-10.8) K/uL RBC (4.7-6.1) M/uL Hgb (14.0-18.0) g/dL Hct (42-52) % MCV (80-100) fL MCH (25-34) pg MCHC (32-36) g/dL RDW Std Deviation (36.4-46.3) fL RDW Coeff of Ren (11.5-14.5) % Plt Count (130-400) K/uL MPV (7.4-10.4) fL Immature Gran % (Auto) % Neut % (Auto) % Lymph % (Auto) % [place] % (Auto) % Eos % (Auto) % Baso % (Auto) % Neut # (Auto) (1.4-6.5) K/uL Lymph # (Auto) (1.2-3.4) K/uL [place] # (Auto) (0.11-0.59) K/uL Eos # (Auto) (0-0.5) K/uL Baso # (Auto) (0-0.2) K/uL Immature Gran # (Auto) (0.00-0.02) K/uL Sodium (136-145) mmol/L Potassium (3.5-5.1) mmol/L Chloride (98-107) mmol/L Carbon Dioxide (21-32) mmol/L Anion Gap (3-11) BUN (6-23) mg/dl Creatinine (0.6-1.4) mg/dl Est Cr Clr Drug Dosing ml/min Est GFR ( Amer) ml/min Est GFR (Non-Af Amer) ml/min BUN/Creatinine Ratio (10-20) Glucose (70-99(Fasting)) mg/dl Lactate 1.1 (0.4-2.0) mmol/L Calcium (8.5-10.1) mg/dl Phosphorus (2.5-4.9) mg/dl Magnesium (1.7-2.4) mg/dl Total Bilirubin (0.2-1.0) mg/dl AST (13-39) U/L ALT (7-52) U/L Alkaline Phosphatase (34-104) U/L Troponin I (0-0.04) ng/ml Total Protein (6.0-8.3) gm/dl Albumin (3.4-5.0) gm/dl Globulin (2.5-4.0) gm/dl Albumin/Globulin Ratio (0.9-2) Lipase (11-82) U/L Procalcitonin (0-0.5) ng/ml Urine Color Dark Yellow Urine Appearance Cloudy A (Clear) Urine pH 5.5 (4.5-7.5) Ur Specific [place] 1.020 (1.000-1.030) Urine Protein 1+ H (Negative) Urine Glucose (UA) Negative (Negative) Urine Ketones Negative (Negative) Urine Blood Trace H (Negative) Urine Nitrite Negative (Negative) Urine Bilirubin Negative (Negative) Urine Urobilinogen Negative (Negative) Ur Leukocyte Esterase 3+ H (Negative) Urine WBC (Auto) >30 H (0-5) /hpf Urine RBC (Auto) 0-4 (0-4) /hpf U Hyaline Cast (Auto) 0 (0-5) /lpf U Epithel Cells (Auto) 10-20 H (0-5) /lpf Urine Bacteria (Auto) Negative (Negative) Ur Renal Epithelial Cell 0-5 (0-5) /lpf Urine Yeast Budding w/ Hyphae A (None Prsent) SARS-CoV-2 (PCR) NEGATIVE (Negative) Influenza Type A (PCR) Negative (Neg) Influenza Type B (PCR) Negative (Neg) RSV (RT-PCR) Negative (Neg) Administered Medications Discontinued Medications Albuterol (Albut/Ipratrop 3mg/0.5mg Neb 3 Ml Vial) 12 ml NEB ONE ONE; Protocol Stop: 09/18/21 13:33 Last Admin: 09/18/21 13:46 Dose: 12 ml Documented by: [id number] Albuterol (Albut/Ipratrop 3mg/0.5mg Neb 3 Ml Vial) 12 ml NEB ONE ONE; Protocol Stop: 09/18/21 15:31 Last Admin: 09/18/21 16:40 Dose: 12 ml Documented by: [id number] Guaifenesin (Guaifenesin 600 Mg Tabcr) 600 mg PO NOW STA Stop: 09/18/21 13:33 Last Admin: 09/18/21 14:06 Dose: 600 mg Documented by: [id number] Sodium Chloride (Nss 1000ml) 1,000 mls @ 999 mls/hr IV .Q1H1M ONE Stop: 09/18/21 14:32 Last Infusion: 09/18/21 15:53 Dose: 0 mls/hr Documented by: [id number] Admin: 09/18/21 14:08 Dose: 999 mls/hr Documented by: [id number] Acetaminophen (Ofirmev) 1,000 mg in 100 mls @ 400 mls/hr IV NOW STA Stop: 09/18/21 14:37 Last Infusion: 09/18/21 15:53 Dose: 0 mls/hr Documented by: [id number] Admin: 09/18/21 14:33 Dose: 400 mls/hr Documented by: [id number] Cefepime HCl 2,000 mg/ Syringe 20 mls @ 5 mls/min IV NOW STA; Protocol Stop: 09/18/21 15:32 Last Admin: 09/18/21 16:07 Dose: 5 mls/min Documented by: [id number] Azithromycin 500 mg/ Dextrose 255 mls @ 127.5 mls/hr IV NOW STA Stop: 09/18/21 17:28 Last Admin: 09/18/21 16:07 Dose: 127.5 mls/hr Documented by: [id number] Sodium Chloride (Nss 1000ml) 1,000 mls @ 999 mls/hr IV .Q1H1M ONE Stop: 09/18/21 16:30 Last Infusion: 09/18/21 17:06 Dose: 0 mls/hr Documented by: [id number] Admin: 09/18/21 15:50 Dose: 999 mls/hr Documented by: [id number] Ketorolac Tromethamine (Ketorolac Tromethamine 15 Mg/Ml Vial) 15 mg IV NOW STA Stop: 09/18/21 15:31 Last Admin: 09/18/21 15:50 Dose: 15 mg Documented by: [id number] Methylprednisolone (Methylprednisolone 125 Mg/2 Ml Vial) 125 mg IV NOW STA Stop: 09/18/21 13:33 Last Admin: 09/18/21 14:06 Dose: 125 mg Documented by: [id number] Imaging Data Radiologist's Impression: Chest X-Ray 09/18/21 13:27 XR chest 1V portable CLINICAL HISTORY: Chest Pain. COMPARISON STUDY: 06/28/2021 TECHNIQUE: 1 view of the chest FINDINGS: Single frontal view of the chest demonstrates the cardiomediastinal silhouette to be within normal limits. There is a decreased inspiratory effort with elevation of the hemidiaphragms and crowding of the bronchovascular markings at the lung bases and centrally. Compared to the previous examination, chronic patchy interstitial and alveolar opacities are again seen at the lung bases which are more prominent due to the decreased inspiratory effort. The lungs are clear of new confluent alveolar opacities. There is no evidence for pleural effusion. There is no evidence for vascular congestion. There is no acute osseous pathology. IMPRESSION: 1. Decreased inspiration with chronic interstitial and alveolar opacities at both lung bases as described above. 2. Otherwise, no acute chest disease. ACT 112: Negative or not required by law. Electronically signed by: Rashaad Mac M.D. 09/18/2021 2:20 PM Discharge Plan Visit Data Chief Complaint: Shortness of Breath/Dyspnea ED Provider: Hiram Main Discharge Problem: Acute on chronic respiratory failure with hypoxia and hypercapnia, COPD exacerbation, SIRS (systemic inflammatory response syndrome) Forms Stand Alone Forms: [facility] [employer] Prescriptions Prescriptions: No Action albuterol sulfate 90 mcg/actuation Hfa Aerosol Inhaler 2 puff INHALATION Q6H PRN (Reason: Shortness Of Breath Or Wheezing) RF: 0 buspirone 5 mg Tablet 5 mg PO QPM RF: 0 cetirizine 10 mg Tablet 10 mg PO DAILY PRN (Reason: Allergy Symptoms) RF: 0 sertraline 100 mg Tablet 200 mg PO HS RF: 0 trazodone 150 mg Tablet 150 mg PO HS RF: 0 omeprazole 20 mg Capsule,Delayed Release(Dr/Ec) 20 mg PO BID RF: 0 Spiriva with HandiHaler 18 mcg Capsule, W/Inhalation Device 1 cap INHALATION QPM RF: 0 guaifenesin 200 mg Tablet 400 mg PO BID RF: 0 epinephrine [EpiPen] 0.3 mg/0.3 mL Auto-Injector 0.3 mg IM DIRECTED PRN (Reason: Allergic Reaction) RF: 0 budesonide-formoterol [Symbicort] 160-4.5 mcg/actuation Hfa Aerosol Inhaler 2 puff INHALATION BID RF: 0 cholecalciferol (vitamin D3) [Vitamin D3] 25 mcg (1,000 unit) Capsule 1,000 unit PO QAM RF: 0 cyanocobalamin (vitamin B-12) [Vitamin B-12] 1,000 mcg Tablet 1,000 mcg PO 2XWK RF: 0 diltiazem HCl 240 mg Capsule,Ext.Rel 24h Degradable 240 mg PO QAM RF: 0 isosorbide mononitrate 30 mg Tablet Extended Release 24 Hr 30 mg PO QAM Qty: 30 RF: 0 aspirin 81 mg Tablet,Delayed Release (Dr/Ec) 81 mg PO QAM Qty: 30 RF: 0 Saline Mist 0.65 % Aerosol,[place] 1 spray NA Q2H 30 Days Qty: 1 RF: 2 albuterol sulfate 2.5 mg /3 mL (0.083 %) Solution For Nebulization 2.5 mg inhalation QID 14 Days Qty: 168 RF: 2 Referrals Referrals: Valencia Patel PA-C [Primary Care Provider] -
[2021-09-18 13:45] LABS: Basophils # (auto) 0.02 K/uL (0-0.2); Basophils % (auto) 0.1 %; Eosinophils # (auto) 0.04 K/uL (0-0.5); Eosinophils % (auto) 0.2 %; Hematocrit (blood only) 38.9 % (42-52); Hemoglobin 12.3 g/dL (14.0-18.0); Immature Granulocytes % (auto) 0.5 %; Mean Corpuscular Hemoglobin 30.1 pg (25-34); Mean Corpuscular Hgb Conc 31.6 g/dL (32-36); Mean Corpuscular Volume 95.3 fL (80-100); Mean Platelet Volume 9.8 fL (7.4-10.4); Monocytes # (auto) 1.32 K/uL (0.11-0.59); Monocytes % (auto) 7.1 %; Neutrophils % (auto) 85.1 %; Platelet Count 151 K/uL (130-400); RDW Coefficient of Variation 15.2 % (11.5-14.5); RDW Standard Deviation 52.4 fL (36.4-46.3); Red Blood Count 4.08 M/uL (4.7-6.1); White Blood Count 18.48 K/uL (4.8-10.8)
--- NOTE | 2021-09-18 14:21 | XRay Report ---
XR chest 1V portable CLINICAL HISTORY: Chest Pain. COMPARISON STUDY: 06/28/2021 TECHNIQUE: 1 view of the chest FINDINGS: Single frontal view of the chest demonstrates the cardiomediastinal silhouette to be within normal li mits. There is a decreased inspiratory effort with elevation of the hemidiaphragms and crowding of th e bronchovascular markings at the lung bases and centrally. Compared to the previous examination, chr onic patchy interstitial and alveolar opacities are again seen at the lung bases which are more promi nent due to the decreased inspiratory effort. The lungs are clear of new confluent alveolar opacities . There is no evidence for pleural effusion. There is no evidence for vascular congestion. There is n o acute osseous pathology. IMPRESSION: 1. Decreased inspiration with chronic interstitial and alveolar opacities at both lung bases as descr ibed above. 2. Otherwise, no acute chest disease. ACT 112: Negative or not required by law. Electronically signed by: Rashaad Mac M.D. 09/18/2021 2:20 PM
[2021-09-18] MEDS ORDERED: ACETAMINOPHEN 1,000 MG/100 ML VIAL IV STA (14:23)
[2021-09-18 14:24] LABS: Troponin I 0.03 ng/ml (0-0.04)
[2021-09-18 14:36] LABS: Albumin Globulin Ratio 1.3 (0.9-2); Albumin Level 3.8 gm/dl (3.4-5.0); BUN Creatinine Ratio 14.5 (10-20); Bilirubin,Total 0.9 mg/dl (0.2-1.0); Calcium 9.1 mg/dl (8.5-10.1); Creatinine Clr Calc Pharmacy 84.3 ml/min; Est GFR (African American) 102.6 ml/min; Est GFR (Non-African American) 88.5 ml/min; Globulin 2.9 gm/dl (2.5-4.0); Magnesium 1.9 mg/dl (1.7-2.4); Phosphorus 2.4 mg/dl (2.5-4.9); Potassium 3.8 mmol/L (3.5-5.1); Total Protein 6.7 gm/dl (6.0-8.3)
[2021-09-18] MEDS ORDERED: CEFEPIME 2,000 MG in SYRINGE 0 ML IV STA (15:29)
[2021-09-18] MEDS ORDERED: AZITHROMYCIN 500 MG in DEXTROSE 5% 250 ML IV STA (15:29)
[2021-09-18] MEDS ORDERED: KETOROLAC TROMETHAMINE 15 MG/ML VIAL IV STA (15:30)
--- NOTE | 2021-09-18 16:25 | History & Physical Report ---
Date of Service September 18, 2021 Assessment & Plan (1) Acute on chronic respiratory failure: (2) COPD exacerbation: (3) SOB (shortness of breath): (4) HTN (hypertension): Plan: This is a 71-year-old male who has significant past medical history of severe COPD on chronic 6 L of oxygen, cirrhosis, HTN, PTSD, depression with anxiety, history of tobacco abuse, anemia who presents to ED secondary to worsening shortness of breath times 1.5 weeks. Acute on Chronic Respiratory failure with hypoxia and hypercapnia COPD Exac admit to [facility] IV solumedrol 40mg TID Levaquin 750mg daily duoneb QID and q2h prn Inhaled budesonide and formoterol BID incentive spirometry, flutter valve muccinex continue supplemental oxygen BIPAP at HS pt follows [facility] pulmonology - but pt states he is establishing with [facility] in 2 days obtain sputum culture pt states he had sputum culture done ~ 3 weeks ago as outpt and was treated with 2 week course of bactrim, will try to obtain from [facility] SIRS Leukocytosis per CMS guidelines pt meets SIRS criteria due to leukocytosis and tachycardia ? source is pulmonary, likely in setting of copd exac blood cultures obtain, UA and sputum culture ordered continue antibiotic therapy for COPD exacerbation HTN bp stable continue diltiazem, imdur Hyperglycemia admitting bsg 143, obtain a1c in a.m. Depression with anxiety/PTSD continue zoloft, buspar and trazodone mood stable DVT ppx:SQ Lovenox Dispo:med tele PCP:Valencia Patel PA-C FULL CODE Pt was seen and examined in collaboration with Dr. Hopkins, please see addendum History of Present Illness Chief Complaint: Shortness of breath and cough x1.5 weeks. Primary Care Provider: Valencia Patel PA-C This is a 71-year-old male who has significant past medical history of severe COPD on chronic 6 L of oxygen, cirrhosis, HTN, PTSD, depression with anxiety, history of tobacco abuse, anemia who presents to ED secondary to worsening shortness of breath times 1.5 weeks. Patient states over the last week and a half he has been experiencing increasing shortness of breath, productive cough with purulent sputum and increased oxygen requirements. He denies any sick contacts except his grandson does have pinkeye. He complains of increased wheezing. He states at baseline he typically uses 6 L of oxygen at night and 4 L during the day. Over the last 2 nights he had to increase his oxygen to 8 and 10 L without improvement; therefore, he came to ED. He does complain of generalized chest wall pain that is worse with coughing and inspiration. He feels it is related to coughing. It is not exertional. He denies any documented fever, chills, sweats, lightheadedness, dizziness, syncope, chest pain, hemoptysis, palpitations, nausea, vomiting, abdominal pain, melena, hematochezia, diarrhea, dysuria, increased urgency or frequency with urination. He uses his nebulizer routinely 3 times a day. He has not increased this. He also has been compliant with his Symbicort. His appetite has been normal and he denies any weight loss. Of significance patient was last hospitalized June 14 July 04 for COPD exacerbation. During the hospitalization he was evaluated by [facility] pulmonology. At that time it was deemed his COPD was end-stage and he was transitioned from azithromycin 3 times a week to Bactrim 3 times a week. He was also treated with Daliresp while in hospital. He states he has upcoming appointment to establish care with Dr. Abel in 2 days. In ED patient initially increased oxygen requirements at 10 L. He received DuoNeb treatment, 125 IV Solu-Medrol, IV cefepime, azithromycin and Toradol. His oxygenation improved and is currently now satting at 6 L. In ED he did have mild leukocytosis at 18 K. He denies any recent steroid use as outpatient. He does admit to increasing his Bactrim use to twice daily for 2 weeks due to abnormal sputum culture. He does not recall what organism grew on sputum culture. Allergies Allergy/AdvReac Type Severity Reaction Status Date / Time bee venom protein (honey bee) Allergy Severe ANAPHYLAXIS Verified 09/18/21 14:17 amoxicillin Allergy Intermediate FACIAL Verified 09/18/21 14:17 SWELLING (EYES SWELLED SHUT) clavulanic acid Allergy Intermediate FACIAL Verified 09/18/21 14:17 SWELLING (EYES SWELLED SHUT) pneumococcal vaccine Allergy Intermediate SWELLING Verified 09/18/21 14:17 [id number]-[id number]-[id number] Reductase Allergy Intermediate CPK'S GO Verified 09/18/21 14:17 Inhibitor THROUGH [Oldsmzf-Ckm-Bcb Reductase ROOF Inhibitor] prednisone AdvReac Intermediate confusion Verified 09/18/21 14:17 and agitation Home Medications Medication Instructions Recorded Confirmed Type buspirone 5 mg tablet 5 mg PO QPM 04/08/18 09/18/21 History cetirizine 10 mg tablet 10 mg PO DAILY PRN 04/08/18 09/18/21 History omeprazole 20 mg capsule,delayed 20 mg PO BID 04/08/18 09/18/21 History release sertraline 100 mg tablet 200 mg PO HS 04/08/18 09/18/21 History tiotropium bromide 18 mcg capsule 1 cap INHALATION QPM 04/08/18 09/18/21 History with inhalation device (Spiriva with HandiHaler) trazodone 150 mg tablet 150 mg PO HS 04/08/18 09/18/21 History albuterol sulfate 90 mcg/actuation 2 puff INHALATION Q6H PRN 07/04/18 09/18/21 History aerosol inhaler budesonide-formoterol HFA 160 2 puff INHALATION BID 08/22/18 09/18/21 History mcg-4.5 mcg/actuation aerosol inhaler (Symbicort) epinephrine 0.3 mg/0.3 mL 0.3 mg IM DIRECTED PRN 08/22/18 09/18/21 History injection, auto-injector (EpiPen) guaifenesin 200 mg tablet 400 mg PO BID 08/22/18 09/18/21 History cholecalciferol (vitamin D3) 25 1,000 unit PO QAM 08/19/19 09/18/21 History mcg (1,000 unit) capsule (Vitamin D3) cyanocobalamin (vitamin B-12) 1,000 mcg PO 2XWK 12/19/20 09/18/21 History 1,000 mcg tablet (Vitamin B-12) diltiazem HCl 240 mg 240 mg PO QAM 12/19/20 09/18/21 History capsule,extended release 24 hr, controlled aspirin 81 mg tablet,delayed 81 mg PO QAM #30 tab 05/16/21 09/18/21 Rx release isosorbide mononitrate 30 mg 30 mg PO QAM #30 tab 05/16/21 09/18/21 Rx tablet,extended release 24 hr albuterol sulfate 2.5 mg INHALATION QID 14 Days #168 07/04/21 09/18/21 Rx ml sodium chloride 0.65 % nasal spray 1 spray NA Q2H 30 Days #1 btl 07/04/21 09/18/21 Rx aerosol (Saline Mist) Past Med/Surg History Medical History Anemia COPD (chronic obstructive pulmonary disease) with emphysema COPD exacerbation Depression GERD (gastroesophageal reflux disease) Hearing deficit [place] 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 Piute exposure History of COVID-19 05/2020 - hospitalized at [facility] - sob, cough, generalized weakness --> pneumonia; still requiring more supplemental oxygen since having Covid (currently on 6 lpm cont home o2, prior to covid was only on 4 lpm) History of kidney stones History of tobacco abuse HTN (hypertension) On home O2 cont @ 6 lpm Osteoarthritis Palliative care encounter PTSD (post-traumatic stress disorder) Pulmonary nodules Thrombocytopenia Surgical History Dilatation of ureter H/O hernia repair History of appendectomy History of cardiac cath x 2 - most recent [place] 2010 - no stents; also cath years prior at [facility] [place] and no stents History of colonoscopy History of extraction of renal calculus History of tonsillectomy Loss of teeth due to extraction S/P arthroscopic surgery of right knee Family History Mother Colon cancer Father FH: kidney cancer Other Cancer Social History Smoking Status: Former smoker Tobacco Type: Cigarettes Cigarettes Per Day: 40 pack year hx; Second Hand Exposure: No; Hx Alcohol Use: No Hx Substance Use: No Preferred Language: Andorran Communication Ability: Effective Ball Shagger Required: No Beliefs That Will Affect Care: None marital status: Current Living Situation: Spouse Current Living Situation Comment: lives with spouse 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 Feels Safe at Home: Yes Assistive Devices: Oxygen - Continuous Review of Systems Review of Systems: All systems reviewed & are unremarkable except as noted in HPI & below Physical Exam Physical Exam: Constitutional: WD/WN, M, chronic ill appearing, vitals as above, NAD, sitting up in bed, pleasant, conversing easily Head: Normocephalic, Atraumatic Eyes: + ecchymosis to superior aspect of R eyelid and L lateral forehead in various stages of healing, PERRL, conjunctivae normal, anicteric sclerae ENMT: external ear and nose normal, oropharynx normal Neck: trachea midline, no thyromegaly normal visual inspection Respiratory: increased resp effort, on 6L of O2 via NC, diminished breath sounds throughout, poor air exchange, no w/r/r, no accessory muscle use Cardiovascular: RRR, no murmur, no edema Vessels: no JVD or carotid bruit Chest: normal inspection of chest Abdomen: normal bowel sounds, soft, nontender, no hepatosplenomegaly Musculoskeletal: no cyanosis or clubbing, AROM X4 Skin: no rashes, warm and dry normal turgor Neurologic: PERRL, EOMI, accommodation nl, no face palsy, no dysarthria CN's II-XI intact grossly bilaterally and moves all extremities Psychiatric: A+Ox3, euthymic affect : deferred Results & Data Results & Data ([facility]) Vital Signs (Past 12 Hours) Vital Signs Temp Pulse Pulse Resp BP BP Pulse Ox 09/18/21 15:06 106 H 18 125/65 93 09/18/21 14:00 94 H 16 136/65 97 09/18/21 13:50 97 H 22 100 09/18/21 13:35 36.8 C 95 H 22 97 09/18/21 13:31 98 H 24 98 09/18/21 13:30 149/76 H Diagnostic Findings Chest X-Ray 09/18/21 13:27 XR chest 1V portable CLINICAL HISTORY: Chest Pain. COMPARISON STUDY: 06/28/2021 TECHNIQUE: 1 view of the chest FINDINGS: Single frontal view of the chest demonstrates the cardiomediastinal silhouette to be within normal limits. There is a decreased inspiratory effort with elevation of the hemidiaphragms and crowding of the bronchovascular markings at the lung bases and centrally. Compared to the previous examination, chronic patchy interstitial and alveolar opacities are again seen at the lung bases which are more prominent due to the decreased inspiratory effort. The lungs are clear of new confluent alveolar opacities. There is no evidence for pleural effusion. There is no evidence for vascular congestion. There is no acute osseous pathology. IMPRESSION: 1. Decreased inspiration with chronic interstitial and alveolar opacities at both lung bases as described above. 2. Otherwise, no acute chest disease. ACT 112: Negative or not required by law. Electronically signed by: Rashaad Mac M.D. 09/18/2021 2:20 PM Medications Administered Medication List Azithromycin 500 mg/ Dextrose 255 mls @ 127.5 mls/hr IV NOW STA Stop: 09/18/21 17:28 Last Admin: 09/18/21 16:07 Dose: 127.5 mls/hr Documented by: [id number] Sodium Chloride (Nss 1000ml) 1,000 mls @ 999 mls/hr IV .Q1H1M ONE Stop: 09/18/21 16:30 Last Admin: 09/18/21 15:50 Dose: 999 mls/hr Documented by: [id number] Discontinued Medications Albuterol (Albut/Ipratrop 3mg/0.5mg Neb 3 Ml Vial) 12 ml NEB ONE ONE; Protocol Stop: 09/18/21 13:33 Last Admin: 09/18/21 13:46 Dose: 12 ml Documented by: [id number] Guaifenesin (Guaifenesin 600 Mg Tabcr) 600 mg PO NOW STA Stop: 09/18/21 13:33 Last Admin: 09/18/21 14:06 Dose: 600 mg Documented by: [id number] Sodium Chloride (Nss 1000ml) 1,000 mls @ 999 mls/hr IV .Q1H1M ONE Stop: 09/18/21 14:32 Last Infusion: 09/18/21 15:53 Dose: 0 mls/hr Documented by: [id number] Admin: 09/18/21 14:08 Dose: 999 mls/hr Documented by: [id number] Acetaminophen (Ofirmev) 1,000 mg in 100 mls @ 400 mls/hr IV NOW STA Stop: 09/18/21 14:37 Last Infusion: 09/18/21 15:53 Dose: 0 mls/hr Documented by: [id number] Admin: 09/18/21 14:33 Dose: 400 mls/hr Documented by: [id number] Cefepime HCl 2,000 mg/ Syringe 20 mls @ 5 mls/min IV NOW STA; Protocol Stop: 09/18/21 15:32 Last Admin: 09/18/21 16:07 Dose: 5 mls/min Documented by: [id number] Ketorolac Tromethamine (Ketorolac Tromethamine 15 Mg/Ml Vial) 15 mg IV NOW STA Stop: 09/18/21 15:31 Last Admin: 09/18/21 15:50 Dose: 15 mg Documented by: [id number] Methylprednisolone (Methylprednisolone 125 Mg/2 Ml Vial) 125 mg IV NOW STA Stop: 09/18/21 13:33 Last Admin: 09/18/21 14:06 Dose: 125 mg Documented by: [id number] ECG Rate (beats per minute): 99 Rhythm: normal sinus Additional Comments: QTC 410ms COVID-19 Results Results COVID-19 Adm Lab Results: RBC 4.08 M/uL (4.7-6.1) L 09/18/21 WBC 18.48 K/uL (4.8-10.8) H 09/18/21 Hgb 12.3 g/dL (14.0-18.0) L 09/18/21 Hct 38.9 % (42-52) L 09/18/21 Plt Count 151 K/uL (130-400) 09/18/21 Neutrophils (%) (Auto) 85.1 % 09/18/21 Lymphocytes (%) (Auto) 7.0 % 09/18/21 Monocytes # (Auto) 1.32 K/uL (0.11-0.59) H 09/18/21 Eosinophils # (Auto) 0.04 K/uL (0-0.5) 09/18/21 Immature Granulocyte % (Auto) 0.5 % 09/18/21 Neutrophils # (Auto) 15.70 K/uL (1.4-6.5) H 09/18/21 Lymphocytes # (Auto) 1.30 K/uL (1.2-3.4) 09/18/21 Monocytes # (Auto) 1.32 K/uL (0.11-0.59) H 09/18/21 Eosinophils # (Auto) 0.04 K/uL (0-0.5) 09/18/21 Basophils # (Auto) 0.02 K/uL (0-0.2) 09/18/21 Immature Granulocyte # (Auto) 0.10 K/uL (0.00-0.02) H 09/18/21 Na 135 mmol/L (136-145) L 09/18/21 K 3.8 mmol/L (3.5-5.1) 09/18/21 Cl 98 mmol/L (98-107) 09/18/21 CO2 31 mmol/L (21-32) 09/18/21 Anion Gap 6 (3-11) 09/18/21 BUN 12 mg/dl (6-23) 09/18/21 Creatinine 0.83 mg/dl (0.6-1.4) 09/18/21 BUN/Creatinine Ratio 14.5 (10-20) 09/18/21 Glucose Level 143 mg/dl (70-99(Fasting)) H 09/18/21 Ca 9.1 mg/dl (8.5-10.1) 09/18/21 Phosphorus Level 2.4 mg/dl (2.5-4.9) L 09/18/21 Total Bilirubin 0.9 mg/dl (0.2-1.0) 09/18/21 AST/SGOT 16 U/L (13-39) 09/18/21 ALT/SGPT 12 U/L (7-52) 09/18/21 Alkaline Phosphatase 78 U/L (34-104) 09/18/21 Total Protein 6.7 gm/dl (6.0-8.3) 09/18/21 Albumin 3.8 gm/dl (3.4-5.0) 09/18/21 Globulin 2.9 gm/dl (2.5-4.0) 09/18/21 Albumin/Globulin Ratio 1.3 (0.9-2) 09/18/21 Troponin I 0.03 ng/ml (0-0.04) 09/18/21 Procalcitonin 0.17 ng/ml (0-0.5) 09/18/21 COVID-19 PCR Pending 09/18/21 Influenza Virus Type A (PCR) Pending 09/18/21 Influenza Virus Type B (PCR) Pending 09/18/21 Chest X-Ray 09/18/21 Code Status & VTE Plan Code Status Conditional Code no ventilation, ok for CPR VTE Prophylaxis Plan VTE Prophylaxis will be ordered: Yes Supervising Physician Co-Signing Physician Notes I saw and examined the patient at bedside with Shakila WHITE and discussed the case with her and agree with her documentation. I have reviewed the chart independently. In summary, this is 71 year-old male with end stage lung disease severe COPD grade D, chronic hypoxic respiratory failure on 6 L of oxygen at home, recurrent admissions for COPD exacerbation with last 1 being in June presented to ED with COPD exacerbation. Symptoms ongoing for 1/2 weeks now with increased shortness of breath and sputum expectoration. Had to increase his home oxygen to 10 L. He was previously on azithromycin 3 times weekly and currently on Bactrim. Gets his care at [facility]. In ED, patient was afebrile and hemodynamically stable. Awake, alert oriented, conversing well, no conversational dyspnea noted, decreased breath sounds bilaterally, tachycardic but regular heart sounds, abd benign, no pedal edema. He was given nebs treatment and IV Solu-Medrol, states only little improvement. Will admit. Start on IV Solu-Medrol, Levaquin, qid duo nebs, twice daily Pulmicor t/peroformist, mucinex. Goal saturation of 88-90%. Get sputum clx. States he is allergic to prednisone and hence will need medrol taper at discharge. Patient was seen by pulm during last admission and recommended palliative consult given his condition. Consider depending on his improvement with the treatment. Rest per the note above.
[2021-09-18 17:22] LABS: Influenza A virus by PCR Negative (Neg); Influenza B virus by PCR Negative (Neg); RSV by PCR Negative (Neg); SARS CoV2 RNA(COVID-19) InHosp NEGATIVE (Negative)
[2021-09-18 17:23] LABS: Appearance Urine Cloudy (Clear); Bacteria Urine Automated Negative (Negative); Bilirubin Urine Negative (Negative); Blood Urine Trace (Negative); Cast Urine Automated 0 /lpf (0-5); Color Urine Dark Yellow; Glucose Urine UA Negative (Negative); Ketones Urine Negative (Negative); Leukocyte Esterase Urine 3+ (Negative); Nitrite Urine Negative (Negative); Protein Urine 1+ (Negative); RBC Urine Automated 0-4 /hpf (0-4); Urobilinogen Urine Negative (Negative); WBC Urine Automated >30 /hpf (0-5); pH Urine 5.5 (4.5-7.5)
[2021-09-18 17:45] LABS: Renal Epithelial Cells Urine 0-5 /lpf (0-5)
[2021-09-18] MEDS ORDERED: ONDANSETRON INJ 2 MG/ML 2 ML VIAL IV PRN (19:11)
[2021-09-18] MEDS ORDERED: MAGNESIUM HYDROXIDE SUSP 30 ML UDC PO PRN (19:11)
[2021-09-18] MEDS ORDERED: ALUMINUM/MAGNESIUM SUSP 30 ML UDC PO PRN (19:11)
[2021-09-18] MEDS ORDERED: POLYETHYLENE (MIRALAX) 17 GM PACK PO PRN (19:11)
[2021-09-18] MEDS: FORMOTEROL 20 MCG/2 ML VIAL NEB SCH (19:47)
[2021-09-18] MEDS: BUDESONIDE 0.5 MG/2 ML VIAL (PULMICORT) NEB SCH (19:47)
[2021-09-18] MEDS: ALBUT/IPRATROP 3MG/0.5MG NEB 3 ML VIAL NEB SCH (19:47)
[2021-09-18] MEDS: traZODone HCL 50 MG TAB PO SCH (20:05)
[2021-09-18] MEDS: busPIRone 5 MG TAB PO SCH (20:05)
[2021-09-18] MEDS: PANTOprazole 40 MG TAB PO SCH (20:05)
[2021-09-18] MEDS: ENOXAPARIN INJ 40 MG/0.4 ML SYR SQ SCH (20:06)
[2021-09-18] MEDS: SERTRALINE HCL 100 MG TABLET PO SCH (20:06)
[2021-09-18] MEDS: guaiFENesin 200 MG TAB PO SCH (20:06)
[2021-09-19] MEDS: ACETAMINOPHEN 325 MG TAB PO PRN ×2 (04:49→21:38)
[2021-09-19] MEDS: FORMOTEROL 20 MCG/2 ML VIAL NEB SCH ×2 (06:53→19:33)
[2021-09-19] MEDS: BUDESONIDE 0.5 MG/2 ML VIAL (PULMICORT) NEB SCH ×2 (06:53→19:32)
[2021-09-19] MEDS: ALBUT/IPRATROP 3MG/0.5MG NEB 3 ML VIAL NEB SCH ×4 (06:53→19:32)
[2021-09-19 08:00] LABS: Basophils # (auto) 0.01 K/uL (0-0.2); Basophils % (auto) 0.1 %; Hematocrit (blood only) 33.4 % (42-52); Hemoglobin 10.6 g/dL (14.0-18.0); Immature Granulocytes # (auto) 0.03 K/uL (0.00-0.02); Immature Granulocytes % (auto) 0.3 %; Lymphocytes # (auto) 0.53 K/uL (1.2-3.4); Lymphocytes % (auto) 4.4 %; Mean Corpuscular Hemoglobin 29.8 pg (25-34); Mean Corpuscular Hgb Conc 31.7 g/dL (32-36); Mean Corpuscular Volume 93.8 fL (80-100); Monocytes # (auto) 0.49 K/uL (0.11-0.59); Monocytes % (auto) 4.1 %; Neutrophils # (auto) 10.89 K/uL (1.4-6.5); Neutrophils % (auto) 91.1 %; Platelet Count 122 K/uL (130-400); RDW Standard Deviation 50.9 fL (36.4-46.3); Red Blood Count 3.56 M/uL (4.7-6.1); White Blood Count 11.95 K/uL (4.8-10.8)
[2021-09-19] MEDS ORDERED: levoFLOXacin/D5W 750 MG/150 ML BAG IV SCH (08:00)
[2021-09-19 09:03] LABS: Estimated Average Glucose 123 mg/dl; Hemoglobin A1C 5.9 % (4.5-5.6)
[2021-09-19] MEDS: methylPREDNISolone 40 MG in SYRINGE 0 ML IV SCH ×3 (09:21→21:27)
[2021-09-19] MEDS: guaiFENesin 200 MG TAB PO SCH ×2 (09:22→21:24)
[2021-09-19] MEDS: ISOSORBIDE MONO EXTENDED REL 30 MG TABCR PO SCH (09:22)
[2021-09-19] MEDS: PANTOprazole 40 MG TAB PO SCH ×2 (09:22→21:24)
[2021-09-19] MEDS: CHOLECALCIFEROL 1,000 UNITS 25 MCG TAB PO SCH (09:23)
[2021-09-19] MEDS: dilTIAZem ER 120 MG CAPCR PO SCH (09:23)
[2021-09-19] MEDS: ASPIRIN 81 MG ECTAB PO SCH (09:23)
[2021-09-19 10:09] LABS: Albumin Globulin Ratio 1.3 (0.9-2); Albumin Level 3.5 gm/dl (3.4-5.0); BUN Creatinine Ratio 17.3 (10-20); Bilirubin,Total 0.4 mg/dl (0.2-1.0); Calcium 9.4 mg/dl (8.5-10.1); Est GFR (Non-African American) 92.3 ml/min; Globulin 2.8 gm/dl (2.5-4.0); Magnesium 2.1 mg/dl (1.7-2.4); Potassium 4.3 mmol/L (3.5-5.1); Total Protein 6.3 gm/dl (6.0-8.3)
[2021-09-19] MEDS: POT PHOSPHATE MONOBASIC W/ SOD TAB PO SCH ×3 (13:16→21:24)
--- NOTE | 2021-09-19 16:45 | Hospitalist Progress Note ---
Date of Service September 19, 2021 Assessment & Plan (1) Acute on chronic respiratory failure: (2) COPD exacerbation: (3) SOB (shortness of breath): (4) HTN (hypertension): Plan: This is a 71-year-old male who has significant past medical history of severe COPD on chronic 6 L of oxygen, cirrhosis, HTN, PTSD, depression with anxiety, history of tobacco abuse, anemia who presents to ED 09/18 secondary to worsening shortness of breath for past1.5 weeks. Acute on Chronic Respiratory failure with hypoxia and hypercapnia COPD Exac continue IV solumedrol 40mg TID Levaquin 750mg daily--will reduce to 500mg daily duoneb QID and q2h prn Inhaled budesonide and formoterol BID incentive spirometry muccinex continue supplemental oxygen BIPAP at HS pt follows [facility] pul[facility]ology - but pt states he is establishing with [facility] and requesting to be seen by Pulmonology while here Sputum culture pending pt states he had sputum culture done ~ 3 weeks ago as outpt and was treated with 2 week course of bactrim, will try to obtain from [facility] SIRS Leukocytosis blood cultures obtain, UA and sputum culture ordered HTN continue diltiazem, imdur Depression with anxiety/PTSD continue zoloft, buspar and trazodone mood stable DVT ppx:SQ Lovenox Admission and Anticipated Discharge Date Admission Date: September 18, 2021 Subjective "I still feel terrible" "I think I had pneumonia but didn't get enough antibiotics" Reportedly had a sputum culture obtained at Urgent Care at [facility] several weeks ago Requesting to be seen by Pulmonology, "the same one that saw me last time I was here" Physical Exam Physical Exam: No acute distress, appears chronically ill, non toxic Respiratory: +faint expiratory wheezing, fair airflow Cardiovascular: regular rate and rhythm, no murmurs/rubs/gallops Gastrointestinal (Abdomen): soft, non tender Musculoskeletal: no edema Neurologic: awake, alert, spontaneously moving extremities Results & Data Results & Data ([facility]) Vital Signs (Past 12 Hours) Vital Signs Temp Pulse Pulse Resp BP Pulse Ox 09/19/21 15:25 79 18 88 L 09/19/21 15:23 87 09/19/21 15:09 36.7 C 80 20 121/69 90 09/19/21 11:15 36.5 C 89 20 133/77 91 04/12/22 10:42 87 09/19/21 10:29 95 H 18 91 09/19/21 07:40 36.3 C L 96 H 20 138/75 90 09/19/21 06:55 88 16 95 Laboratory Results Short CBC 09/19/21 Range/Units 07:27 WBC 11.95 H (4.8-10.8) K/uL Hgb 10.6 L (14.0-18.0) g/dL Hct 33.4 L (42-52) % Plt Count 122 L (130-400) K/uL BMP 09/19/21 07:27 Sodium 135 L Potassium 4.3 Chloride 99 Carbon Dioxide 32 BUN 13 Creatinine 0.75 Glucose 156 H Calcium 9.4 Liver Function 09/19/21 Range/Units 07:27 Total Bilirubin 0.4 D (0.2-1.0) mg/dl AST 12 L (13-39) U/L ALT 10 (7-52) U/L Alkaline Phosphatase 66 (34-104) U/L Albumin 3.5 (3.4-5.0) gm/dl Urine 09/18/21 Range/Units 16:57 Urine Color Dark Yellow Urine Appearance Cloudy A (Clear) Urine pH 5.5 (4.5-7.5) Ur Specific [place] 1.020 (1.000-1.030) Urine Protein 1+ H (Negative) Urine Glucose (UA) Negative (Negative) Medications Administered Current Inpatient Medications Acetaminophen (Acetaminophen 325 Mg Tab) 650 mg PO Q4H PRN PRN Reason: Pain or Fever Stop: 10/18/21 19:10 Last Admin: 09/19/21 04:49 Dose: 650 mg Documented by: Al Hydrox/Mg Hydrox/Simethicone (Aluminum/Magnesium Susp 30 Ml Udc) 15 ml PO Q4H PRN PRN Reason: Dyspepsia Stop: 10/18/21 19:10 Albuterol (Albut/Ipratrop 3mg/0.5mg Neb 3 Ml Vial) 3 ml NEB QIDR [facility]; Protocol Stop: 10/18/21 18:59 Last Admin: 09/19/21 15:22 Dose: 3 ml Documented by: Aspirin (Aspirin 81 Mg Ectab) 81 mg PO [facility] Stop: 10/19/21 08:59 Last Admin: 09/19/21 09:23 Dose: 81 mg Documented by: Budesonide (Budesonide 0.5 Mg/2 Ml Vial (Pulmicort)) 0.5 mg NEB BIDR [facility] Stop: 10/18/21 18:59 Last Admin: 09/19/21 06:53 Dose: 0.5 mg Documented by: Buspirone HCl (Buspirone 5 Mg Tab) 5 mg PO QPM [place] Stop: 10/18/21 20:59 Last Admin: 09/18/21 20:05 Dose: 5 mg Documented by: Diltiazem HCl (Diltiazem Er 120 Mg Capcr) 240 mg PO QAM [facility] Stop: 10/19/21 08:59 Last Admin: 09/19/21 09:23 Dose: 240 mg Documented by: Enoxaparin Sodium (Enoxaparin Inj 40 Mg/0.4 Ml Syr) 40 mg SQ Q24H [facility] Stop: 10/18/21 21:59 Last Admin: 09/18/21 20:06 Dose: 40 mg Documented by: Formoterol Fumarate (Formoterol 20 Mcg/2 Ml Vial) 20 mcg NEB BID [facility] Stop: 10/18/21 20:59 Last Admin: 09/19/21 06:53 Dose: 20 mcg Documented by: Guaifenesin (Guaifenesin 200 Mg Tab) 400 mg PO BID [facility] Stop: 10/18/21 20:59 Last Admin: 09/19/21 09:22 Dose: 400 mg Documented by: Methylprednisolone 40 mg/ (Syringe) 0.64 mls @ 1.5 mls/min IV Q8 [facility] Stop: 10/19/21 07:59 Last Admin: 09/19/21 13:16 Dose: 1.5 mls/min Documented by: Isosorbide Mononitrate (Isosorbide [place] Extended Rel 30 Mg Tabcr) 30 mg PO QAM [facility] Stop: 10/19/21 08:59 Last Admin: 09/19/21 09:22 Dose: 30 mg Documented by: Levofloxacin (Levofloxacin 500 Mg Tab) 500 mg PO DAILY@1100 [facility] Stop: 09/24/21 10:59 Magnesium Hydroxide (Magnesium Hydroxide Susp 30 Ml Udc) 30 ml PO Q12H PRN PRN Reason: Constipation Stop: 10/18/21 19:10 Ondansetron HCl (Ondansetron Inj 2 Mg/Ml 2 Ml Vial) 4 mg IV Q6H PRN PRN Reason: Nausea Stop: 10/18/21 19:10 Last Admin: 09/19/21 11:41 Dose: 4 mg Documented by: Pantoprazole Sodium (Pantoprazole 40 Mg Tab) 40 mg PO BID [facility] Stop: 10/18/21 20:59 Last Admin: 09/19/21 09:22 Dose: 40 mg Documented by: Polyethylene Glycol (Polyethylene (Miralax) 17 Gm Pack) 17 gm PO DAILY PRN PRN Reason: Constipation Stop: 10/18/21 19:10 Potassium Phosphate (Pot Phosphate Monobasic W/ Sod Tab) 1 tab PO QID [facility] Stop: 09/20/21 09:01 Last Admin: 09/19/21 13:16 Dose: 1 tab Documented by: Sertraline HCl (Sertraline Hcl 100 Mg Tablet) 200 mg PO [facility] Stop: 10/18/21 20:59 Last Admin: 09/18/21 20:06 Dose: 200 mg Documented by: Trazodone HCl (Trazodone Hcl 50 Mg Tab) 150 mg PO [facility] Stop: 10/18/21 20:59 Last Admin: 09/18/21 20:05 Dose: 150 mg Documented by: Vitamin D (Cholecalciferol 1,000 Units 25 Mcg Tab) 1,000 units PO QAM [facility] Stop: 10/19/21 08:59 Last Admin: 09/19/21 09:23 Dose: 1,000 units Documented by:
--- NOTE | 2021-09-19 17:11 | Pulmonary Consultation ---
Date of Consultation September 19, 2021 Assessment & Plan (1) COPD exacerbation: (2) Acute on chronic respiratory failure: (3) SOB (shortness of breath): (4) History of tobacco abuse: Chest x-ray 09/18/2021 personally reviewed: Portable film, good respiratory effort, bilateral costophrenic and cardiophrenic angles are clean, Increased bilateral hilar vasculature Increased reticular markings in the periphery especially in the lower part of the lung. No significant change compared to 06/28/2021 2D echo 05-11-21: EF 65-70%, right ventricle systolic function is mildly reduced, grade 1 diastolic dysfunction. Normal right ventricular function --Acute on chronic hypercapnic hypoxic respiratory failure Secondary to COPD exacerbation COVID-19 PCR negative Influenza A/B negative Currently on formoterol, budesonide and IV Solu-Medrol --COPD Gold D On Symbicort and Spiriva QTC 410 09/18/2021 Patient is currently not using [facility] Patient prefers nebulizers. On his last exacerbation in June patient was supposed to be discharged on azithromycin 250 mg Aukpyn-Pspdvykfn-Sjvxwh as well as Roflumilast which I do not see unfortunately on his home medication list --History of COVID-19 pneumonia May 2020 Plan: Continue with Solu-Medrol and inhaled bronchodilators Patient will benefit from flutter valve Continue with guaifenesin Currently patient is on levofloxacin. Add Incruse Please note the above document was generated using voice recognition software. It may contain grammatical, syntax or spelling errors.Any formal questions or concerns about the content, text or information contained within the body of this dictation should be directly addressed to the provider for clarification. History of Present Illness Attending Physician: Heri Aguilar MD History of Present Illness 71-year-old male came to the hospital because of worsening shortness of breath Past medical history: Combined pulmonary emphysema with fibrosis, chronic resp iratory failure on 6 L O2, hypertension, depression, PTSD BiPAP nightly Patient has had multiple exacerbations underlying COPD, last exacerbation being 06/30/2021 Patient states that he was having issues at home when it comes to his breathing. He does cough and is able to bring up phlegm. Denies any chest congestion Has been using BiPAP at night. Denies any hemoptysis and his cough. No chest pain. He says that he is compliant with his inhalers as well as his machine at night. Denies any fever or chills. No dysuria or diarrhea Social history: Greater than [id number] smoking history, quit 6 years ago Allergies Allergy/AdvReac Type Severity Reaction Status Date / Time bee venom protein (honey bee) Allergy Severe ANAPHYLAXIS Verified 09/18/21 14:17 amoxicillin Allergy Intermediate FACIAL Verified 09/18/21 14:17 SWELLING (EYES SWELLED SHUT) clavulanic acid Allergy Intermediate FACIAL Verified 09/18/21 14:17 SWELLING (EYES SWELLED SHUT) pneumococcal vaccine Allergy Intermediate SWELLING Verified 09/18/21 14:17 Erdxtsw-RYA-VtH Reductase Allergy Intermediate CPK'S GO Verified 09/18/21 14:17 Inhibitor THROUGH [Xvtpiyg-Iwg-Jvj Reductase ROOF Inhibitor] prednisone AdvReac Intermediate confusion Verified 09/18/21 14:17 and agitation Home Medications Medication Instructions Recorded Confirmed Type buspirone 5 mg tablet 5 mg PO QPM 04/08/18 09/18/21 History cetirizine 10 mg tablet 10 mg PO DAILY PRN 04/08/18 09/18/21 History omeprazole 20 mg capsule,delayed 20 mg PO BID 04/08/18 09/18/21 History release sertraline 100 mg tablet 200 mg PO HS 04/08/18 09/18/21 History tiotropium bromide 18 mcg capsule 1 cap INHALATION QPM 04/08/18 09/18/21 History with inhalation device (Spiriva with HandiHaler) trazodone 150 mg tablet 150 mg PO HS 04/08/18 09/18/21 History albuterol sulfate 90 mcg/actuation 2 puff INHALATION Q6H PRN 07/04/18 09/18/21 History aerosol inhaler budesonide-formoterol HFA 160 2 puff INHALATION BID 08/22/18 09/18/21 History mcg-4.5 mcg/actuation aerosol inhaler (Symbicort) epinephrine 0.3 mg/0.3 mL 0.3 mg IM DIRECTED PRN 08/22/18 09/18/21 History injection, auto-injector (EpiPen) guaifenesin 200 mg tablet 400 mg PO BID 08/22/18 09/18/21 History cholecalciferol (vitamin D3) 25 1,000 unit PO QAM 08/19/19 09/18/21 History mcg (1,000 unit) capsule (Vitamin D3) cyanocobalamin (vitamin B-12) 1,000 mcg PO 2XWK 12/19/20 09/18/21 History 1,000 mcg tablet (Vitamin B-12) diltiazem HCl 240 mg 240 mg PO QAM 12/19/20 09/18/21 History capsule,extended release 24 hr, controlled aspirin 81 mg tablet,delayed 81 mg PO QAM #30 tab 05/16/21 09/18/21 Rx release isosorbide mononitrate 30 mg 30 mg PO QAM #30 tab 05/16/21 09/18/21 Rx tablet,extended release 24 hr albuterol sulfate 2.5 mg INHALATION QID 14 Days #168 07/04/21 09/18/21 Rx ml sodium chloride 0.65 % nasal spray 1 spray NA Q2H 30 Days #1 btl 07/04/21 09/18/21 Rx aerosol (Saline Mist) Patient History Medical History Anemia COPD (chronic obstructive pulmonary disease) with emphysema COPD exacerbation Depression GERD (gastroesophageal reflux disease) Hearing deficit [place] 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 [place] exposure History of COVID-19 05/2020 - hospitalized at [facility] - sob, cough, generalized weakness --> pneumonia; still requiring more supplemental oxygen since having Covid (currently on 6 lpm cont home o2, prior to covid was only on 4 lpm) History of kidney stones History of tobacco abuse HTN (hypertension) On home O2 cont @ 6 lpm Osteoarthritis Palliative care encounter PTSD (post-traumatic stress disorder) Pulmonary nodules Thrombocytopenia Surgical History Dilatation of ureter H/O hernia repair History of appendectomy History of cardiac cath x 2 - most recent [place] 2010 - no stents; also cath years prior at [facility] [place] and no stents History of colonoscopy History of extraction of renal calculus History of tonsillectomy Loss of teeth due to extraction S/P arthroscopic surgery of right knee Family History Mother Colon cancer Father FH: kidney cancer Other Cancer Social History Smoking Status: Former smoker Tobacco Type: Cigarettes Cigarettes Per Day: 40 pack year hx; Second Hand Exposure: No; Hx Alcohol Use: No Hx Substance Use: No Preferred Language: Georgian Communication Ability: Effective 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 Beliefs That Will Affect Care: None marital status: Current Living Situation: Spouse Current Living Situation Comment: lives with spouse 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 Feels Safe at Home: Yes Assistive Devices: Oxygen - Continuous and Walker Assistive Devices Comment: uses walker only sometimes Review of Systems Review of Systems: All systems reviewed & are unremarkable except as noted in HPI & below Physical Exam Physical Exam: Constitutional: No acute distress HEENT: EOMI, PERRLA Respiratory system: Decreased air entry bilaterally, no wheeze, rhonchi, no crackles CVS: S1-S2 positive, no murmurs or gallops Abdomen: Soft, nontender, nondistended, positive bowel sounds x4 Extremities: +2 pulses bilaterally radialis/ dorsalis pedis, no cyanosis, no edema Neuro: Awake alert oriented x3 Psych: Normal mood and affect G/U: No Ponce Skin: no rashes, warm and dry Lymphatic: no cervical or axillary lymphadenopathy Results & Data Results & Data ([facility]) Vital Signs (Past 12 Hours) Vital Signs Temp Pulse Pulse Resp BP Pulse Ox 09/19/21 15:25 79 18 88 L 09/19/21 15:23 87 09/19/21 15:09 36.7 C 80 20 121/69 90 09/19/21 11:15 36.5 C 89 20 133/77 91 09/19/21 10:42 87 09/19/21 10:29 95 H 18 91 09/19/21 07:40 36.3 C L 96 H 20 138/75 90 09/19/21 06:55 88 16 95 Laboratory Results 09/19/21 07:27 09/19/21 07:27 PG Care Time/CCT Total # of Minutes Spent Total Time Spent with Patient: Total time spent is greater than 50% in coordination of care (as documented) at patient's floor/unit and/or counseling patient: Coding Level of Care Code 19225 Initial Inpt Care Lvl 3 Diagnoses COPD exacerbation J44.1 Acute on chronic respiratory failure J96.20 SOB (shortness of breath) R06.02 History of tobacco abuse Z87.895
[2021-09-19] MEDS ORDERED: guaiFENesin 600 MG TABCR PO SCH (21:00)
[2021-09-19] MEDS: busPIRone 5 MG TAB PO SCH (21:24)
[2021-09-19] MEDS: SERTRALINE HCL 100 MG TABLET PO SCH (21:24)
[2021-09-19] MEDS: traZODone HCL 50 MG TAB PO SCH (21:24)
[2021-09-19] MEDS: ENOXAPARIN INJ 40 MG/0.4 ML SYR SQ SCH (21:25)
--- NOTE | 2021-09-19 21:53 | Electrocardiogram Report ---
Test Reason : Blood Pressure : / mmHG Vent. Rate : 099 BPM Atrial Rate : 099 BPM P-R Int : 138 ms QRS Dur : 070 ms QT Int : 320 ms P-R-T Axes : 051 -28 071 degrees QTc Int : 410 ms Poor data quality, interpretation may be adversely affected Normal sinus rhythm Nonspecific ST and T wave abnormality Abnormal ECG When compared with ECG of 15-JUN-2021 00:22, No significant change was found Confirmed by Will Walls ([id number]) on 09/19/2021 9:53:27 PM Referred By: REFERRED SELF Confirmed By:Will Walls
[2021-09-20] MEDS: methylPREDNISolone 40 MG in SYRINGE 0 ML IV SCH ×2 (06:09→22:43)
[2021-09-20] MEDS: FORMOTEROL 20 MCG/2 ML VIAL NEB SCH ×2 (07:01→19:11)
[2021-09-20] MEDS: BUDESONIDE 0.5 MG/2 ML VIAL (PULMICORT) NEB SCH ×2 (07:01→19:12)
[2021-09-20] MEDS: ALBUT/IPRATROP 3MG/0.5MG NEB 3 ML VIAL NEB SCH ×4 (07:01→19:11)
[2021-09-20] MEDS: ACETAMINOPHEN 325 MG TAB PO PRN (07:10)
[2021-09-20] MEDS: guaiFENesin 200 MG TAB PO SCH ×2 (07:32→22:41)
[2021-09-20] MEDS: ISOSORBIDE MONO EXTENDED REL 30 MG TABCR PO SCH (07:33)
[2021-09-20] MEDS: POT PHOSPHATE MONOBASIC W/ SOD TAB PO SCH (07:33)
[2021-09-20] MEDS: CHOLECALCIFEROL 1,000 UNITS 25 MCG TAB PO SCH (07:36)
[2021-09-20] MEDS: PANTOprazole 40 MG TAB PO SCH ×2 (07:36→22:41)
[2021-09-20] MEDS: dilTIAZem ER 120 MG CAPCR PO SCH (07:37)
[2021-09-20] MEDS: ASPIRIN 81 MG ECTAB PO SCH (07:37)
[2021-09-20] MEDS: UMECLIDINIUM BROMIDE 62.5MCG/BLISTER 7 PUFFS/INHALER INH SCH (07:38)
[2021-09-20 08:19] LABS: Hemoglobin 10.4 g/dL (14.0-18.0); Mean Corpuscular Hemoglobin 30.1 pg (25-34); Mean Corpuscular Hgb Conc 31.5 g/dL (32-36); Mean Corpuscular Volume 95.4 fL (80-100); Mean Platelet Volume 9.9 fL (7.4-10.4); Platelet Count 146 K/uL (130-400); RDW Coefficient of Variation 14.9 % (11.5-14.5); RDW Standard Deviation 51.6 fL (36.4-46.3); Red Blood Count 3.46 M/uL (4.7-6.1); White Blood Count 10.57 K/uL (4.8-10.8)
[2021-09-20 08:29] LABS: BUN Creatinine Ratio 22.4 (10-20); Calcium 9.4 mg/dl (8.5-10.1); Creatinine Clr Calc Pharmacy 100.2 ml/min; Est GFR (African American) 106.4 ml/min; Est GFR (Non-African American) 91.8 ml/min; Potassium 4.7 mmol/L (3.5-5.1)
[2021-09-20] MEDS: levoFLOXacin 500 MG TAB PO SCH (11:11)
--- NOTE | 2021-09-20 12:00 | Hospitalist Progress Note ---
Date of Service September 20, 2021 Assessment & Plan (1) Acute on chronic respiratory failure: (2) COPD exacerbation: (3) SOB (shortness of breath): (4) HTN (hypertension): Plan: per Dr. Aguilar's notes with addendum: This is a 71-year-old male who has significant past medical history of severe COPD on chronic 6 L of oxygen, cirrhosis, HTN, PTSD, depression with anxiety, history of tobacco abuse, anemia who presents to ED 09/18 secondary to worsening shortness of breath for past1.5 weeks. Acute on Chronic Respiratory failure with hypoxia and hypercapnia COPD Exac - gradually improving - sputum culture: moderate normal mary kate blood culture: negative - continue IV solumedrol 40mg TID Levaquin 500mg daily duoneb QID and q2h prn Inhaled budesonide and formoterol BID incentive spirometry mucinex - continue supplemental oxygen BIPAP at HS pt states he had sputum culture done ~ 3 weeks ago as outpt and was treated with 2 week course of bactrim, [facility] Leukocytosis - resolved HTN continue diltiazem, imdur Depression with anxiety/PTSD continue zoloft, buspar and trazodone mood stable DVT ppx:SQ Lovenox plan of care discussed with patient in detail and at length all questions answered he is understanding, agreeable, comfortable with the plan of care Admission and Anticipated Discharge Date Admission Date: September 18, 2021 Subjective ff up for COPD exacerbation, etc seen resting in bed, on 6L NC baseline states he feels improved today breathing improving still has some productive cough- yellow thick sputum no other symptoms Review of Systems Review of Systems: all noted and negative except for above Physical Exam Physical Exam: General- oriented x 3, not in distress, speaks in sentences with no effort or accessory muscle use Head- atraumatic Eyes- PERRL, EOMI, anicteric ENT- oropharynx clear Neck- supple, no JVD, no adenopathy, no thyromegaly; carotids +2/2, no bruits appreciated Lungs- (+) BL rhonchi, mild wheeze Heart- normal rate, regular rhythm; no murmur, no gallop, no rub appreciated Abdomen- normal bowel sounds, nondistended, soft, nontender, no masses or hepatosplenomegaly Extremities- no pretibial edema, no calf tenderness; peripheral pulses intact Neuro- alert, oriented x 3; CN 2-12 grossly intact; motor 5/5 bilaterally;sensation 100% on all extremities; no other gross focal neurologic deficits Skin- warm & dry Results & Data Results & Data ([facility]) Vital Signs (Past 12 Hours) Vital Signs Temp Pulse Pulse Resp BP BP Pulse Ox 09/20/21 11:19 85 18 91 09/20/21 10:59 36.7 C 82 20 128/71 93 09/20/21 07:22 68 09/20/21 07:01 87 18 86 L 09/20/21 07:00 36.5 C 86 18 128/68 95 09/20/21 03:30 36.5 C 71 18 120/66 92 09/20/21 02:00 93 09/20/21 01:36 96 all noted and reviewed including below
--- NOTE | 2021-09-20 12:38 | Pulmonology Progress Note ---
Date of Service September 20, 2021 Assessment & Plan (1) COPD exacerbation: (2) Acute on chronic respiratory failure: (3) SOB (shortness of breath): (4) History of tobacco abuse: Plan: Chest x-ray 09/18/2021 personally reviewed: Portable film, good respiratory effort, bilateral costophrenic and cardiophrenic angles are clean, Increased bilateral hilar vasculature Increased reticular markings in the periphery especially in the lower part of the lung. No significant change compared to 06/28/2021 2D echo 05-11-21: EF 65-70%, right ventricle systolic function is mildly reduced, grade 1 diastolic dysfunction. Normal right ventricular function --Acute on chronic hypercapnic hypoxic respiratory failure Secondary to COPD exacerbation COVID-19 PCR negative Influenza A/B negative --COPD Gold D On Symbicort and Spiriva QTC 410 09/18/2021 Patient is currently not using [facility]. Patient prefers nebulizers. On his last exacerbation in June patient was supposed to be discharged on azithromycin 250 mg Rgavkt-Tzgkofgoi-Znybmt as well as Roflumilast which I do not see unfortunately on his home medication list On the last visit patient was discharged on prolonged taper of prednisone at this point was put on Bactrim. Currently he is not on prednisone so Bactrim could be discontinued --History of COVID-19 pneumonia May 2020 Plan: Decrease Solu-Medrol to 40 mg every 12 Patient said that he prefers budesonide nebulizer. If he plans to use budesonide nebulizer then he can be discharged on 500 MCG budesonide twice daily plus Anoro inhaler If he wants everything nebulized then the regimen would be budesonide and formoterol twice daily nebulized and Yupelri once a day nebulized Please note the above document was generated using voice recognition software. It may contain grammatical, syntax or spelling errors.Any formal questions or concerns about the content, text or information contained within the body of this dictation should be directly addressed to the provider for clarification. Admission and Anticipated Discharge Date Admission Date: September 18, 2021 Subjective Patient seen and examined at bedside. No acute distress, no adverse events overnight. He was saturating 90-91% on 6 L nasal cannula. I tried to go down to 5 L but he desaturated to 86%. Overall he says that he is doing okay after coming to the hospital He is bringing up phlegm Denies any chest pain, no headache, no nausea, no vomiting Fair appetite Review of Systems Review of Systems: All systems reviewed & are unremarkable except as noted in Subjective Physical Exam Physical Exam: Constitutional: No acute distress HEENT: EOMI, PERRLA Respiratory system: Decreased air entry bilaterally, no wheeze, rhonchi, no crackles CVS: S1-S2 positive, no murmurs or gallops Abdomen: Soft, nontender, nondistended, positive bowel sounds x4 Extremities: +2 pulses bilaterally radialis/ dorsalis pedis, no cyanosis, no edema Neuro: Awake alert oriented x3 Psych: Normal mood and affect G/U: No Ponce Skin: no rashes, warm and dry Lymphatic: no cervical or axillary lymphadenopathy Results & Data Results & Data ([facility]) Vital Signs (Past 12 Hours) Vital Signs Temp Pulse Pulse Resp BP BP Pulse Ox 09/20/21 11:19 85 18 91 09/20/21 10:59 36.7 C 82 20 128/71 93 09/20/21 07:22 68 09/20/21 07:01 87 18 86 L 09/20/21 07:00 36.5 C 86 18 128/68 95 09/20/21 03:30 36.5 C 71 18 120/66 92 09/20/21 02:00 93 09/20/21 01:36 96 Laboratory Results 09/20/21 07:42 09/20/21 07:42 PG Care Time/CCT Total # of Minutes Spent Total Time Spent with Patient: Total time spent is greater than 50% in coordination of care (as documented) at patient's floor/unit and/or counseling patient: Coding Level of Care Code 71595 Subseq Hosp Care Lvl 2 Diagnoses COPD exacerbation J44.1 Acute on chronic respiratory failure J96.20 SOB (shortness of breath) R06.02 History of tobacco abuse Z87.891
[2021-09-20] MEDS: busPIRone 5 MG TAB PO SCH (22:40)
[2021-09-20] MEDS: SERTRALINE HCL 100 MG TABLET PO SCH (22:42)
[2021-09-20] MEDS: traZODone HCL 50 MG TAB PO SCH (22:42)
[2021-09-20] MEDS: ENOXAPARIN INJ 40 MG/0.4 ML SYR SQ SCH (22:43)
[2021-09-21] MEDS ORDERED: LORazepam 0.5 MG TAB PO STA (01:39)
[2021-09-21] MEDS: FORMOTEROL 20 MCG/2 ML VIAL NEB SCH ×2 (07:03→20:12)
[2021-09-21] MEDS: ALBUT/IPRATROP 3MG/0.5MG NEB 3 ML VIAL NEB SCH ×4 (07:03→19:18)
[2021-09-21] MEDS: BUDESONIDE 0.5 MG/2 ML VIAL (PULMICORT) NEB SCH ×2 (07:03→20:12)
[2021-09-21] MEDS: dilTIAZem ER 120 MG CAPCR PO SCH (08:16)
[2021-09-21] MEDS: PANTOprazole 40 MG TAB PO SCH ×2 (08:17→20:13)
[2021-09-21] MEDS: ASPIRIN 81 MG ECTAB PO SCH (08:17)
[2021-09-21] MEDS: guaiFENesin 200 MG TAB PO SCH (08:17)
[2021-09-21] MEDS: ISOSORBIDE MONO EXTENDED REL 30 MG TABCR PO SCH (08:18)
[2021-09-21] MEDS: ACETAMINOPHEN 325 MG TAB PO PRN ×2 (08:42→18:24)
[2021-09-21] MEDS: UMECLIDINIUM BROMIDE 62.5MCG/BLISTER 7 PUFFS/INHALER INH SCH (08:43)
[2021-09-21] MEDS: methylPREDNISolone 40 MG in SYRINGE 0 ML IV SCH (08:43)
[2021-09-21] MEDS: CHOLECALCIFEROL 1,000 UNITS 25 MCG TAB PO SCH (09:21)
--- NOTE | 2021-09-21 09:27 | Pulmonology Progress Note ---
Date of Service September 21, 2021 Assessment & Plan (1) COPD exacerbation: (2) Acute on chronic respiratory failure: (3) SOB (shortness of breath): (4) History of tobacco abuse: Plan: Chest x-ray 09/18/2021 personally reviewed: Portable film, good respiratory effort, bilateral costophrenic and cardiophrenic angles are clean, Increased bilateral hilar vasculature Increased reticular markings in the periphery especially in the lower part of the lung. No significant change compared to 06/28/2021 2D echo 05-11-21: EF 65-70%, right ventricle systolic function is mildly reduced, grade 1 diastolic dysfunction. Normal right ventricular function --Acute on chronic hypercapnic hypoxic respiratory failure Secondary to COPD exacerbation COVID-19 PCR negative Influenza A/B negative O2 supplement to keep oxygen between 88-92% On BiPAP nightly and as needed shortness of breath. Patient has BiPAP at home as well --COPD Gold D On Symbicort and Spiriva QTC 410 09/18/2021 Patient is currently not using [facility]. Patient prefers nebulizers. On his last exacerbation in June patient was supposed to be discharged on azithromycin 250 mg Wgxgdy-Lgdqvisbs-Pajqbe as well as Roflumilast which I do not see unfortunately on his home medication list On the last visit patient was discharged on prolonged taper of prednisone at this point was put on Bactrim. Currently he is not on prednisone so Bactrim could be discontinued Patient said that he prefers budesonide nebulizer. If he plans to use budesonide nebulizer then he can be discharged on 500 MCG budesonide twice daily plus Anoro inhaler If he wants everything nebulized then the regimen would be budesonide and formoterol twice daily nebulized and Yupelri once a day nebulized --History of COVID-19 pneumonia May 2020 Plan: Decrease Solu-Medrol to 40 mg daily Add Mucomyst nebulized twice a day Continue with flutter valve and Mucinex Please note the above document was generated using voice recognition software. It may contain grammatical, syntax or spelling errors.Any formal questions or concerns about the content, text or information contained within the body of this dictation should be directly addressed to the provider for clarification. Admission and Anticipated Discharge Date Admission Date: September 18, 2021 Subjective Patient seen and examined at bedside. No acute distress. No episodes overnight Patient states that he is coughing and bringing up thick sticky phlegm Denies any chest pain No headache, no nausea, no vomiting He was saturating 97% at the time of examination. Unsure how many liters he was getting as he had a nebulizer as well as a nasal cannula Try to go down on oxygen to keep it between 88-92% Review of Systems Review of Systems: All systems reviewed & are unremarkable except as noted in Subjective Physical Exam Physical Exam: Constitutional: No acute distress HEENT: EOMI, PERRLA Respiratory system: Decreased air entry bilaterally, no wheeze, rhonchi, no crackles CVS: S1-S2 positive, no murmurs or gallops Abdomen: Soft, nontender, nondistended, positive bowel sounds x4 Extremities: +2 pulses bilaterally radialis/ dorsalis pedis, no cyanosis, no edema Neuro: Awake alert oriented x3 Psych: Normal mood and affect G/U: No Ponce Skin: no rashes, warm and dry Lymphatic: no cervical or axillary lymphadenopathy Results & Data Results & Data ([facility]) Vital Signs (Past 12 Hours) Vital Signs Temp Pulse Pulse Resp BP Pulse Ox Pulse Ox 09/21/21 07:21 36.5 C 87 20 137/77 95 09/21/21 07:16 76 09/21/21 07:04 80 19 92 09/21/21 04:00 36.5 C 92 H 18 114/72 91 09/21/21 03:10 74 24 91 09/21/21 01:29 22 93 09/20/21 23:55 90 09/20/21 23:41 36.6 C 82 18 132/76 92 09/20/21 23:40 83 Laboratory Results 09/20/21 07:42 09/20/21 07:42 PG Care Time/CCT Total # of Minutes Spent Total Time Spent with Patient: Total time spent is greater than 50% in coordination of care (as documented) at patient's floor/unit and/or counseling patient: Coding Level of Care Code 19079 Subseq Hosp Care Lvl 2 Diagnoses COPD exacerbation J44.1 Acute on chronic respiratory failure J96.20 SOB (shortness of breath) R06.02 History of tobacco abuse Z87.891
[2021-09-21] MEDS: ACETYLCYSTEINE 20% INHAL SOLN 4ML ***DISPENSED BY RESP. INH SCH ×2 (10:17→19:17)
[2021-09-21] MEDS ORDERED: SODIUM CHLORIDE 0.65% NA SOLN 45 ML (OCEAN) ONE (11:23)
[2021-09-21] MEDS: levoFLOXacin 500 MG TAB PO SCH (11:31)
--- NOTE | 2021-09-21 14:49 | Hospitalist Progress Note ---
Date of Service September 21, 2021 Assessment & Plan (1) Acute on chronic respiratory failure: (2) COPD exacerbation: (3) SOB (shortness of breath): (4) HTN (hypertension): Plan: per Dr. Aguilar's notes with addendum: This is a 71-year-old male who has significant past medical history of severe COPD on chronic 6 L of oxygen, cirrhosis, HTN, PTSD, depression with anxiety, history of tobacco abuse, anemia who presents to ED 09/18 secondary to worsening shortness of breath for past1.5 weeks. Acute on Chronic Respiratory failure with hypoxia and hypercapnia COPD Exac - gradually improving - sputum culture: moderate normal mary kate blood culture: negative - continue IV solumedrol 40mg daily Levaquin 500mg daily duoneb QID and q2h prn Inhaled budesonide and formoterol BID incentive spirometry mucinex Mucomyst - continue supplemental oxygen BIPAP at HS pt states he had sputum culture done ~ 3 weeks ago as outpt and was treated with 2 week course of bactrim, [facility] Leukocytosis - resolved HTN continue diltiazem, imdur Depression with anxiety/PTSD continue zoloft, buspar and trazodone mood stable DVT ppx:SQ Lovenox plan of care discussed with patient in detail and at length all questions answered he is understanding, agreeable, comfortable with the plan of care Admission and Anticipated Discharge Date Admission Date: September 18, 2021 Subjective ff up for copd exacerbation, etc seen resting in bed, comfortable on 6 L NC in good spirits states he feels improved today able to expectorate more phlegm has mild rib pain from coughing no dyspnea, palpitations, dizziness no other symptoms Review of Systems Review of Systems: all noted and negative except for above Physical Exam Physical Exam: General- oriented x 3, not in distress, speaks in sentences with no effort or accessory muscle use Eyes- anicteric Neck- no JVD Lungs-diminished, occasional crackles bilaterally Heart- normal rate, regular rhythm; no murmurs Abdomen- normal bowel sounds, nondistended, soft, nontender Extremities- no pretibial edema, no calf tenderness Neuro- alert, oriented x 3; no gross focal neurologic deficits Skin- warm & dry Results & Data Results & Data ([facility]) Vital Signs (Past 12 Hours) Vital Signs Temp Pulse Pulse Resp BP Pulse Ox 09/21/21 13:09 90 09/21/21 12:33 95 09/21/21 11:43 97 09/21/21 11:07 36.6 C 100 H 20 132/78 93 09/21/21 10:40 91 H 18 92 09/21/21 07:21 36.5 C 87 20 137/77 95 09/21/21 07:16 76 09/21/21 07:04 80 19 92 09/21/21 04:00 36.5 C 92 H 18 114/72 91 09/21/21 03:10 74 24 91 all noted and reviewed including below
[2021-09-21] MEDS: busPIRone 5 MG TAB PO SCH (20:12)
[2021-09-21] MEDS: guaiFENesin 600 MG TABCR PO SCH (20:12)
[2021-09-21] MEDS: SERTRALINE HCL 100 MG TABLET PO SCH (20:14)
[2021-09-21] MEDS: traZODone HCL 50 MG TAB PO SCH (23:10)
[2021-09-21] MEDS: ENOXAPARIN INJ 40 MG/0.4 ML SYR SQ SCH (23:10)
[2021-09-21] MEDS: LORazepam 0.5 MG TAB PO PRN (23:11)
[2021-09-22] MEDS: ALBUT/IPRATROP 3MG/0.5MG NEB 3 ML VIAL NEB SCH ×4 (06:59→18:59)
[2021-09-22] MEDS: BUDESONIDE 0.5 MG/2 ML VIAL (PULMICORT) NEB SCH ×2 (06:59→18:59)
[2021-09-22] MEDS: FORMOTEROL 20 MCG/2 ML VIAL NEB SCH ×2 (06:59→18:59)
[2021-09-22] MEDS: ACETYLCYSTEINE 20% INHAL SOLN 4ML ***DISPENSED BY RESP. INH SCH ×2 (07:00→19:14)
--- NOTE | 2021-09-22 08:33 | Pulmonology Progress Note ---
Date of Service September 22, 2021 Assessment & Plan (1) COPD exacerbation: (2) Acute on chronic respiratory failure: (3) SOB (shortness of breath): (4) History of tobacco abuse: Plan: Chest x-ray 09/18/2021 personally reviewed: Portable film, good respiratory effort, bilateral costophrenic and cardiophrenic angles are clean, Increased bilateral hilar vasculature Increased reticular markings in the periphery especially in the lower part of the lung. No significant change compared to 06/28/2021 2D echo 05-11-21: EF 65-70%, right ventricle systolic function is mildly reduced, grade 1 diastolic dysfunction. Normal right ventricular function --Acute on chronic hypercapnic hypoxic respiratory failure Secondary to COPD exacerbation COVID-19 PCR negative Influenza A/B negative O2 supplement to keep oxygen between 88-92% On BiPAP nightly and as needed shortness of breath. Patient has BiPAP at home as well --COPD Gold D On Symbicort and Spiriva QTC 410 09/18/2021 Patient is currently not using [facility]. Patient prefers nebulizers. On his last exacerbation in June patient was supposed to be discharged on azithromycin 250 mg [id number] as well as Roflumilast which I do not see unfortunately on his home medication list On the last visit patient was discharged on prolonged taper of prednisone at this point was put on Bactrim. Currently he is not on prednisone so Bactrim could be discontinued Patient said that he prefers budesonide nebulizer. If he plans to use budesonide nebulizer then he can be discharged on 500 MCG budesonide twice daily plus Anoro inhaler If he wants everything nebulized then the regimen would be budesonide and formoterol twice daily nebulized and Yupelri once a day nebulized --History of COVID-19 pneumonia May 2020 Plan: In/out: -1270, urine output 3275 Start tapering steroids as of tomorrow. Recommend prednisone 40 mg for 5 days followed by 30 mg for 3 and then stop Continue with flutter valve and Mucinex Can discharge the patient on Mucomyst inhaled twice daily on top of his inhalers No further recommendation from pulmonary perspective. Will sign off Please call directly with any questions Please note the above document was generated using voice recognition software. It may contain grammatical, syntax or spelling errors.Any formal questions or concerns about the content, text or information contained within the body of this dictation should be directly addressed to the provider for clarification. Admission and Anticipated Discharge Date Admission Date: September 18, 2021 Subjective Patient seen and examined at bedside. No acute distress, no adverse events overnight He states he is feeling better He liked Mucomyst nebulizer along with the budesonide that he has been getting Denies any headache, no nausea vomiting Is able to bring up phlegm. Denies any hemoptysis Review of Systems Review of Systems: All systems reviewed & are unremarkable except as noted in Subjective Physical Exam Physical Exam: Constitutional: No acute distress HEENT: EOMI, PERRLA Respiratory system: Decreased air entry bilaterally, no wheeze, rhonchi, no crackles CVS: S1-S2 positive, no murmurs or gallops Abdomen: Soft, nontender, nondistended, positive bowel sounds x4 Extremities: +2 pulses bilaterally radialis/ dorsalis pedis, no cyanosis, no edema Neuro: Awake alert oriented x3 Psych: Normal mood and affect G/U: No [place] Skin: no rashes, warm and dry Lymphatic: no cervical or axillary lymphadenopathy Results & Data Results & Data ([facility]) Vital Signs (Past 12 Hours) Vital Signs Temp Pulse Pulse Resp BP Pulse Ox Pulse Ox 09/22/21 07:45 36.6 C 86 19 116/70 92 09/22/21 07:40 68 09/22/21 07:01 77 19 93 09/22/21 04:00 36.7 C 80 18 118/76 95 09/22/21 03:53 94 09/22/21 02:48 88 09/22/21 00:17 90 18 91 09/22/21 00:00 36.9 C 87 18 130/65 92 09/21/21 23:00 94 Laboratory Results 09/20/21 07:42 09/20/21 07:42 PG Care Time/CCT Total # of Minutes Spent Total Time Spent with Patient: Total time spent is greater than 50% in coordination of care (as documented) at patient's floor/unit and/or counseling patient: Coding Level of Care Code 28811 Subseq Hosp Care Lvl 2 Diagnoses COPD exacerbation J44.1 Acute on chronic respiratory failure J96.20 SOB (shortness of breath) R06.02 History of tobacco abuse Z87.895
[2021-09-22] MEDS: methylPREDNISolone 40 MG in SYRINGE 0 ML IV SCH (09:23)
[2021-09-22] MEDS: ASPIRIN 81 MG ECTAB PO SCH (09:26)
[2021-09-22] MEDS: CHOLECALCIFEROL 1,000 UNITS 25 MCG TAB PO SCH (09:27)
[2021-09-22] MEDS: ISOSORBIDE MONO EXTENDED REL 30 MG TABCR PO SCH (09:27)
[2021-09-22] MEDS: guaiFENesin 600 MG TABCR PO SCH ×2 (09:28→22:25)
[2021-09-22] MEDS: PANTOprazole 40 MG TAB PO SCH ×2 (09:29→22:26)
[2021-09-22] MEDS: dilTIAZem ER 120 MG CAPCR PO SCH (09:29)
[2021-09-22] MEDS: UMECLIDINIUM BROMIDE 62.5MCG/BLISTER 7 PUFFS/INHALER INH SCH (09:30)
[2021-09-22] MEDS: levoFLOXacin 500 MG TAB PO SCH (11:15)
[2021-09-22] MEDS: ACETAMINOPHEN 325 MG TAB PO PRN ×2 (11:16→19:50)
--- NOTE | 2021-09-22 17:06 | Hospitalist Progress Note ---
Date of Service September 22, 2021 Assessment & Plan (1) Acute on chronic respiratory failure: (2) COPD exacerbation: (3) SOB (shortness of breath): (4) HTN (hypertension): Plan: per Dr. Aguilar's notes with addendum: This is a 71-year-old male who has significant past medical history of severe COPD on chronic 6 L of oxygen, cirrhosis, HTN, PTSD, depression with anxiety, history of tobacco abuse, anemia who presents to ED 09/18 secondary to worsening shortness of breath for past1.5 weeks. Acute on Chronic Respiratory failure with hypoxia and hypercapnia COPD Exac - gradually improving - sputum culture: moderate normal mary kate blood culture: negative - improving - continue IV solumedrol 40mg daily--> change to Prednisone tomorrow Levaquin 500mg daily duoneb QID and q2h prn Inhaled budesonide and formoterol BID incentive spirometry mucinex Mucomyst - continue supplemental oxygen BIPAP at HS pt states he had sputum culture done ~ 3 weeks ago as outpt and was treated with 2 week course of bactrim, [facility] Leukocytosis - resolved HTN continue diltiazem, imdur Depression with anxiety/PTSD continue zoloft, buspar and trazodone mood stable DVT ppx:SQ Lovenox plan of care discussed with patient in detail and at length all questions answered he is understanding, agreeable, comfortable with the plan of care Admission and Anticipated Discharge Date Admission Date: September 18, 2021 Subjective ff up for copd exacerbation, etc seen resting in bed, comfortable on 6 L CA states he continues to feel improved able to expectorate phlegm no other symptoms Review of Systems Review of Systems: all noted and negative except for above Physical Exam Physical Exam: General- oriented x 3, not in distress, speaks in sentences with no effort or accessory muscle use Eyes- anicteric Neck- no JVD Lungs- diminished but clear breath sounds Heart- normal rate, regular rhythm; no murmurs Abdomen- normal bowel sounds, nondistended, soft, no tenderness Extremities- no pretibial edema, no calf tenderness Neuro- alert, oriented x 3; no gross focal neurologic deficits Skin- warm & dry Results & Data Results & Data ([facility]) Vital Signs (Past 12 Hours) Vital Signs Temp Pulse Pulse Resp BP Pulse Ox Pulse Ox 09/22/21 15:23 36.8 C 88 18 123/72 94 09/22/21 14:41 85 19 90 09/22/21 14:19 85 09/22/21 11:27 36.6 C 93 H 19 134/76 93 09/22/21 10:56 80 20 93 09/22/21 10:45 86 L 09/22/21 10:01 90 09/22/21 07:45 36.6 C 86 19 116/70 92 09/22/21 07:40 68 09/22/21 07:01 77 19 93 Pulse Ox Pulse Ox 09/22/21 15:23 09/22/21 14:41 09/22/21 14:19 09/22/21 11:27 09/22/21 10:56 09/22/21 10:45 86 L 78 L 09/22/21 10:01 09/22/21 07:45 09/22/21 07:40 09/22/21 07:01 all noted and reviewed including below
[2021-09-22] MEDS: LORazepam 0.5 MG TAB PO PRN (22:25)
[2021-09-22] MEDS: traZODone HCL 50 MG TAB PO SCH (22:26)
[2021-09-22] MEDS: SERTRALINE HCL 100 MG TABLET PO SCH (22:26)
[2021-09-22] MEDS: busPIRone 5 MG TAB PO SCH (22:27)
[2021-09-22] MEDS: ENOXAPARIN INJ 40 MG/0.4 ML SYR SQ SCH (22:27)
[2021-09-23] MEDS: ALBUT/IPRATROP 3MG/0.5MG NEB 3 ML VIAL NEB SCH ×4 (07:06→19:29)
[2021-09-23] MEDS: ACETYLCYSTEINE 20% INHAL SOLN 4ML ***DISPENSED BY RESP. INH SCH ×2 (07:07→19:02)
[2021-09-23] MEDS: BUDESONIDE 0.5 MG/2 ML VIAL (PULMICORT) NEB SCH ×2 (07:07→19:02)
[2021-09-23] MEDS: FORMOTEROL 20 MCG/2 ML VIAL NEB SCH ×2 (07:09→19:02)
[2021-09-23] MEDS: CHOLECALCIFEROL 1,000 UNITS 25 MCG TAB PO SCH (08:07)
[2021-09-23] MEDS: dilTIAZem ER 120 MG CAPCR PO SCH (08:07)
[2021-09-23] MEDS: ASPIRIN 81 MG ECTAB PO SCH (08:07)
[2021-09-23] MEDS: methylPREDNISolone 40 MG in SYRINGE 0 ML IV SCH (08:08)
[2021-09-23] MEDS: PANTOprazole 40 MG TAB PO SCH ×2 (08:08→20:40)
[2021-09-23] MEDS: ISOSORBIDE MONO EXTENDED REL 30 MG TABCR PO SCH (08:08)
[2021-09-23] MEDS: UMECLIDINIUM BROMIDE 62.5MCG/BLISTER 7 PUFFS/INHALER INH SCH (08:08)
[2021-09-23] MEDS: guaiFENesin 600 MG TABCR PO SCH ×2 (08:08→20:39)
[2021-09-23] MEDS: levoFLOXacin 500 MG TAB PO SCH (10:56)
--- NOTE | 2021-09-23 15:35 | Hospitalist Progress Note ---
Date of Service September 23, 2021 Assessment & Plan (1) Acute on chronic respiratory failure: (2) COPD exacerbation: (3) SOB (shortness of breath): (4) HTN (hypertension): Plan: per Dr. Aguilar's notes with addendum: This is a 71-year-old male who has significant past medical history of severe COPD on chronic 6 L of oxygen, cirrhosis, HTN, PTSD, depression with anxiety, history of tobacco abuse, anemia who presents to ED 09/18 secondary to worsening shortness of breath for past1.5 weeks. Acute on Chronic Respiratory failure with hypoxia and hypercapnia COPD Exac - sputum culture: moderate normal mary kate blood culture: negative - patient gradually improving continue to wean off o2 accordingly - continue IV solumedrol 40mg daily--> change to Prednisone tomorrow Levaquin 500mg daily duoneb QID and q2h prn Inhaled budesonide and formoterol BID incentive spirometry mucinex Mucomyst - continue supplemental oxygen BIPAP at HS pt states he had sputum culture done ~ 3 weeks ago as outpt and was treated with 2 week course of bactrim, [facility] Leukocytosis - resolved HTN continue diltiazem, imdur Depression with anxiety/PTSD continue zoloft, buspar and trazodone mood stable DVT ppx:SQ Lovenox plan of care discussed with patient in detail and at length all questions answered he is understanding, agreeable, comfortable with the plan of care Admission and Anticipated Discharge Date Admission Date: September 18, 2021 Subjective ff up for acute COPD exacerbation, etc seen resting in bed, comfortable on 7 L NC states he continues to feel improved coughing less breathing better no chest pain, dyspnea, palpitations, dizziness no other symptoms Review of Systems Review of Systems: all noted and negative except for above Physical Exam Physical Exam: General- oriented x 3, not in distress, speaks in sentences with no effort or accessory muscle use Eyes- anicteric Neck- no JVD Lungs- diminished but clear BS bilaterally- improving no rales or wheezing Heart- normal rate, regular rhythm; no murmurs Abdomen- normal bowel sounds, nondistended, soft, nontender Extremities- no pretibial edema, no calf tenderness Neuro- alert, oriented x 3; no gross focal neurologic deficits Skin- warm & dry Results & Data Results & Data ([facility]) Vital Signs (Past 12 Hours) Vital Signs Temp Pulse Pulse Resp BP Pulse Ox 09/23/21 15:17 86 20 91 09/23/21 11:36 36.9 C 91 H 20 138/74 97 09/23/21 11:01 72 20 90 09/23/21 09:38 72 09/23/21 07:22 36.7 C 79 20 149/84 H 98 09/23/21 07:15 82 20 97 09/23/21 04:44 36.6 C 85 20 124/71 98
[2021-09-23] MEDS: busPIRone 5 MG TAB PO SCH (20:39)
[2021-09-23] MEDS: SERTRALINE HCL 100 MG TABLET PO SCH (20:40)
[2021-09-23] MEDS: traZODone HCL 50 MG TAB PO SCH (20:40)
[2021-09-23] MEDS: LORazepam 0.5 MG TAB PO PRN (20:54)
[2021-09-23] MEDS: ENOXAPARIN INJ 40 MG/0.4 ML SYR SQ SCH (21:06)
[2021-09-23] MEDS ORDERED: FLUTICASONE PROPIONATE NA SPR 16 GM BTL NAE STA (23:28)
[2021-09-24] MEDS: FLUTICASONE PROPIONATE NA SPR 16 GM BTL PRN (00:10)
[2021-09-24] MEDS: guaiFENesin SUGAR FREE 200 MG/10 ML UDC PO PRN (00:11)
[2021-09-24] MEDS: ACETYLCYSTEINE 20% INHAL SOLN 4ML ***DISPENSED BY RESP. INH SCH ×2 (07:10→19:02)
[2021-09-24] MEDS: FORMOTEROL 20 MCG/2 ML VIAL NEB SCH ×2 (07:11→19:02)
[2021-09-24] MEDS: BUDESONIDE 0.5 MG/2 ML VIAL (PULMICORT) NEB SCH ×2 (07:11→19:02)
[2021-09-24] MEDS: ALBUT/IPRATROP 3MG/0.5MG NEB 3 ML VIAL NEB SCH ×4 (07:11→19:05)
[2021-09-24] MEDS: ASPIRIN 81 MG ECTAB PO SCH (07:37)
[2021-09-24] MEDS: methylPREDNISolone 40 MG in SYRINGE 0 ML IV SCH (07:37)
[2021-09-24] MEDS: ISOSORBIDE MONO EXTENDED REL 30 MG TABCR PO SCH (07:38)
[2021-09-24] MEDS: dilTIAZem ER 120 MG CAPCR PO SCH (07:38)
[2021-09-24] MEDS: CHOLECALCIFEROL 1,000 UNITS 25 MCG TAB PO SCH (07:39)
[2021-09-24] MEDS: PANTOprazole 40 MG TAB PO SCH ×2 (07:39→20:38)
[2021-09-24] MEDS: guaiFENesin 600 MG TABCR PO SCH ×2 (07:39→20:38)
[2021-09-24] MEDS: UMECLIDINIUM BROMIDE 62.5MCG/BLISTER 7 PUFFS/INHALER INH SCH (07:40)
[2021-09-24] MEDS ORDERED: methylPREDNISolone 4 MG TAB, 6 DAY TAPER PO SCH (09:00)
[2021-09-24] MEDS: methylPREDNISolone 4 MG TAB PO SCH ×4 (10:09→20:38)
--- NOTE | 2021-09-24 14:42 | Hospitalist Progress Note ---
Date of Service September 24, 2021 Assessment & Plan (1) Acute on chronic respiratory failure: (2) COPD exacerbation: (3) SOB (shortness of breath): (4) HTN (hypertension): Plan: per Dr. Aguilar's notes with addendum: This is a 71-year-old male who has significant past medical history of severe COPD on chronic 6 L of oxygen, cirrhosis, HTN, PTSD, depression with anxiety, history of tobacco abuse, anemia who presents to ED 09/18 secondary to worsening shortness of breath for past1.5 weeks. Acute on Chronic Respiratory failure with hypoxia and hypercapnia COPD Exac - sputum culture: moderate normal mary kate blood culture: negative - patient continues to improve continue to wean off o2 accordingly - continue IV solumedrol 40mg daily--> change to Medrol dosepak Levaquin 500mg daily duoneb QID and q2h prn Inhaled budesonide and formoterol BID incentive spirometry mucinex Mucomyst - continue supplemental oxygen BIPAP at HS pt states he had sputum culture done ~ 3 weeks ago as outpt and was treated with 2 week course of bactrim, [facility] Leukocytosis - resolved HTN continue diltiazem, imdur Depression with anxiety/PTSD continue zoloft, buspar and trazodone mood stable DVT ppx:SQ Lovenox plan of care discussed with patient in detail and at length all questions answered he is understanding, agreeable, comfortable with the plan of care Admission and Anticipated Discharge Date Admission Date: September 18, 2021 Subjective ff up for COPD exacerbation, etc seen resting in bed, comfortable on 7L states he feels that he is improving overall no chest pain, dyspnea, palpitations, dizziness no other symptoms Review of Systems Review of Systems: all noted and negative except for above Physical Exam Physical Exam: General- oriented x 3, not in distress, speaks in sentences with no effort or accessory muscle use Eyes- anicteric Neck- no JVD Lungs- diminished but clear breath sounds bilaterally Heart- normal rate, regular rhythm; no murmurs Abdomen- normal bowel sounds, nondistended, soft, nontender Extremities- no pretibial edema, no calf tenderness Neuro- alert, oriented x 3; no gross focal neurologic deficits Skin- warm & dry Results & Data Results & Data ([facility]) Vital Signs (Past 12 Hours) Vital Signs Temp Pulse Pulse Resp BP Pulse Ox 09/24/21 12:01 37 C 86 18 127/76 93 09/24/21 11:08 88 20 93 09/24/21 08:19 83 09/24/21 07:12 22 97 09/24/21 06:28 37.0 C 83 20 119/71 94 09/24/21 02:45 36.4 C L 88 18 123/72 91 all noted and reviewed including below
[2021-09-24] MEDS: ACETAMINOPHEN 325 MG TAB PO PRN (19:28)
[2021-09-24] MEDS: busPIRone 5 MG TAB PO SCH (20:37)
[2021-09-24] MEDS: SERTRALINE HCL 100 MG TABLET PO SCH (20:38)
[2021-09-24] MEDS: ENOXAPARIN INJ 40 MG/0.4 ML SYR SQ SCH (20:39)
[2021-09-24] MEDS: traZODone HCL 50 MG TAB PO SCH (20:39)
[2021-09-24] MEDS: LORazepam 0.5 MG TAB PO PRN (22:34)
[2021-09-25] MEDS: methylPREDNISolone 4 MG TAB PO SCH ×3 (06:13→18:25)
[2021-09-25] MEDS: BUDESONIDE 0.5 MG/2 ML VIAL (PULMICORT) NEB SCH ×2 (07:02→19:45)
[2021-09-25] MEDS: ALBUT/IPRATROP 3MG/0.5MG NEB 3 ML VIAL NEB SCH ×4 (07:02→19:22)
[2021-09-25] MEDS: ACETYLCYSTEINE 20% INHAL SOLN 4ML ***DISPENSED BY RESP. INH SCH ×2 (07:02→19:22)
[2021-09-25] MEDS: FORMOTEROL 20 MCG/2 ML VIAL NEB SCH ×2 (07:03→19:45)
[2021-09-25] MEDS: UMECLIDINIUM BROMIDE 62.5MCG/BLISTER 7 PUFFS/INHALER INH SCH (08:56)
[2021-09-25] MEDS: CHOLECALCIFEROL 1,000 UNITS 25 MCG TAB PO SCH (08:57)
[2021-09-25] MEDS: dilTIAZem ER 120 MG CAPCR PO SCH (08:57)
[2021-09-25] MEDS: ISOSORBIDE MONO EXTENDED REL 30 MG TABCR PO SCH (08:57)
[2021-09-25] MEDS: PANTOprazole 40 MG TAB PO SCH ×2 (08:57→20:44)
[2021-09-25] MEDS: ASPIRIN 81 MG ECTAB PO SCH (08:57)
[2021-09-25] MEDS: guaiFENesin 600 MG TABCR PO SCH ×2 (08:57→20:44)
--- NOTE | 2021-09-25 12:32 | Hospitalist Progress Note ---
Date of Service September 25, 2021 Assessment & Plan (1) Acute on chronic respiratory failure: (2) COPD exacerbation: (3) SOB (shortness of breath): (4) HTN (hypertension): Plan: per Dr. Aguilar's notes with addendum: This is a 71-year-old male who has significant past medical history of severe COPD on chronic 6 L of oxygen, cirrhosis, HTN, PTSD, depression with anxiety, history of tobacco abuse, anemia who presents to ED 09/18 secondary to worsening shortness of breath for past1.5 weeks. Acute on Chronic Respiratory failure with hypoxia and hypercapnia COPD Exac - sputum culture: moderate normal mary kate blood culture: negative - patient continues to improve continue to wean off o2 accordingly requested patient to have family bring his oxymizer to better assess o2 saturation - continue IV solumedrol 40mg daily--> change to Medrol dosepak Levaquin 500mg daily duoneb QID and q2h prn Inhaled budesonide and formoterol BID incentive spirometry mucinex Mucomyst - continue supplemental oxygen BIPAP at HS pt states he had sputum culture done ~ 3 weeks ago as outpt and was treated with 2 week course of bactrim, [facility] Leukocytosis - resolved HTN continue diltiazem, imdur Depression with anxiety/PTSD continue zoloft, buspar and trazodone mood stable DVT ppx:SQ Lovenox plan of care discussed with patient in detail and at length all questions answered he is understanding, agreeable, comfortable with the plan of care Admission and Anticipated Discharge Date Admission Date: September 18, 2021 Subjective Follow-up for COPD exacerbation Seen resting in bed, on 6 L nasal cannula Comfortable States he continues to feel better ambulated in the hallway for 2 step exercise test felt ok walking even with 10 L requirement coughing less no other symptoms Review of Systems Review of Systems: all noted and negative except for above Physical Exam Physical Exam: General- oriented x 3, not in distress, speaks in sentences with no effort or accessory muscle use Eyes- anicteric Neck- no JVD Lungs- diminished but clear BS BL better air entry BL Heart- normal rate, regular rhythm; no murmurs Abdomen- normal bowel sounds, nondistended, soft, nontender Extremities- no pretibial edema, no calf tenderness Neuro- alert, oriented x 3; no gross focal neurologic deficits Skin- warm & dry Results & Data Results & Data ([facility]) Vital Signs (Past 12 Hours) Vital Signs Temp Pulse Pulse Pulse Pulse Pulse Pulse 09/25/21 11:40 36.4 C L 78 09/25/21 10:44 87 09/25/21 09:37 97 H 102 H 101 H 92 H 09/25/21 07:37 36.4 C L 78 09/25/21 07:17 78 09/25/21 07:03 82 09/25/21 03:06 36.6 C 79 Pulse Resp Resp Resp Resp Resp Resp 09/25/21 11:40 20 09/25/21 10:44 20 09/25/21 09:37 84 20 20 20 18 16 09/25/21 07:37 20 09/25/21 07:17 09/25/21 07:03 22 09/25/21 03:06 20 BP BP Pulse Ox Pulse Ox Pulse Ox Pulse Ox Pulse Ox 09/25/21 11:40 115/69 94 09/25/21 10:44 96 09/25/21 09:37 85 L 86 L 89 L 91 09/25/21 07:37 147/80 H 98 09/25/21 07:17 09/25/21 07:03 97 09/25/21 03:06 145/79 H 96 Pulse Ox 09/25/21 11:40 09/25/21 10:44 09/25/21 09:37 90 09/25/21 07:37 09/25/21 07:17 09/25/21 07:03 09/25/21 03:06 all noted and reviewed including below
[2021-09-25] MEDS: FLUTICASONE PROPIONATE NA SPR 16 GM BTL PRN (18:25)
[2021-09-25] MEDS: busPIRone 5 MG TAB PO SCH (20:44)
[2021-09-25] MEDS: traZODone HCL 50 MG TAB PO SCH (20:44)
[2021-09-25] MEDS: SERTRALINE HCL 100 MG TABLET PO SCH (20:44)
[2021-09-25] MEDS ORDERED: methylPREDNISolone 4 MG TAB PO SCH (21:00)
[2021-09-25] MEDS: LORazepam 0.5 MG TAB PO PRN (21:33)
[2021-09-25] MEDS: ENOXAPARIN INJ 40 MG/0.4 ML SYR SQ SCH (21:33)
[2021-09-25] MEDS: ACETAMINOPHEN 325 MG TAB PO PRN (23:05)
[2021-09-26] MEDS: methylPREDNISolone 4 MG TAB PO SCH ×4 (06:43→20:17)
[2021-09-26] MEDS: ALBUT/IPRATROP 3MG/0.5MG NEB 3 ML VIAL NEB SCH ×4 (07:00→19:44)
[2021-09-26] MEDS: ACETYLCYSTEINE 20% INHAL SOLN 4ML ***DISPENSED BY RESP. INH SCH ×2 (07:01→19:43)
[2021-09-26] MEDS: BUDESONIDE 0.5 MG/2 ML VIAL (PULMICORT) NEB SCH ×2 (07:01→19:43)
[2021-09-26] MEDS: FORMOTEROL 20 MCG/2 ML VIAL NEB SCH ×2 (07:31→19:43)
[2021-09-26] MEDS: dilTIAZem ER 120 MG CAPCR PO SCH (08:21)
[2021-09-26] MEDS: ASPIRIN 81 MG ECTAB PO SCH (08:21)
[2021-09-26] MEDS: guaiFENesin 600 MG TABCR PO SCH ×2 (08:21→20:16)
[2021-09-26] MEDS: UMECLIDINIUM BROMIDE 62.5MCG/BLISTER 7 PUFFS/INHALER INH SCH (08:22)
[2021-09-26] MEDS: PANTOprazole 40 MG TAB PO SCH ×2 (08:22→20:16)
[2021-09-26] MEDS: CHOLECALCIFEROL 1,000 UNITS 25 MCG TAB PO SCH (10:09)
[2021-09-26] MEDS: ISOSORBIDE MONO EXTENDED REL 30 MG TABCR PO SCH (10:10)
--- NOTE | 2021-09-26 17:53 | Hospitalist Progress Note ---
Date of Service September 26, 2021 Assessment & Plan (1) Acute on chronic respiratory failure: (2) COPD exacerbation: (3) SOB (shortness of breath): (4) HTN (hypertension): Plan: per Dr. Aguilar's notes with addendum: This is a 71-year-old male who has significant past medical history of severe COPD on chronic 6 L of oxygen, cirrhosis, HTN, PTSD, depression with anxiety, history of tobacco abuse, anemia who presents to ED 09/18 secondary to worsening shortness of breath for past1.5 weeks. Acute on Chronic Respiratory failure with hypoxia and hypercapnia COPD Exac - sputum culture: moderate normal mary kate blood culture: negative - patient gradually improved Currently on 6 L of oxygen (uses 4 to 6 L at home) with Oxymizer which he also uses at home - IV solumedrol 40mg daily--> changed to Medrol dosepak Levaquin 500mg daily given x 7 days duoneb QID and q2h prn Inhaled budesonide and formoterol BID incentive spirometry mucinex Mucomyst -Discharge on current nebulizer and inhaler regimen Consider resuming azithromycin 250 mg once a day every Saturday/Saturday/Saturday, however patient is on sertraline, buspirone, trazodone -Two-step exercise test ordered for tomorrow to determine oxygen supplement requirement upon discharge SIRS Leukocytosis - resolved HTN continue diltiazem, imdur Depression with anxiety/PTSD continue zoloft, buspar and trazodone mood stable DVT ppx:SQ Lovenox Disposition Possible discharge to home tomorrow Prescriptions already transmitted to [place] [facility] in 1 week plan of care discussed with patient in detail and at length all questions answered he is understanding, agreeable, comfortable with the plan of care Admission and Anticipated Discharge Date Admission Date: September 18, 2021 Subjective Follow-up for COPD exacerbation, etc. Seen resting in bed, on 6 L of oxygen with Oxymizer Comfortable, not in distress States he feels fine overall Breathing is okay, less cough No other new symptom Review of Systems Review of Systems: all noted and negative except for above Physical Exam Physical Exam: General- oriented x 3, not in distress, speaks in sentences with no effort or accessory muscle use Eyes- anicteric Neck- no JVD Lungs-diminished but clear breath sounds bilaterally Heart- normal rate, regular rhythm; no murmurs Abdomen- normal bowel sounds, nondistended, soft, nontender Extremities- no pretibial edema, no calf tenderness Neuro- alert, oriented x 3; no gross focal neurologic deficits Skin- warm & dry Results & Data Results & Data ([facility]) Vital Signs (Past 12 Hours) Vital Signs Temp Pulse Pulse Resp BP Pulse Ox 09/26/21 15:49 83 09/26/21 15:31 36.8 C 87 18 117/71 90 09/26/21 14:51 77 20 92 09/26/21 11:07 78 20 93 09/26/21 11:05 36.7 C 91 H 20 125/71 90 09/26/21 07:24 36.6 C 86 18 164/90 H 96 09/26/21 07:02 78 09/26/21 07:00 77 20 95 all noted and reviewed including below
[2021-09-26] MEDS: ACETAMINOPHEN 325 MG TAB PO PRN (19:16)
[2021-09-26] MEDS: busPIRone 5 MG TAB PO SCH (20:16)
[2021-09-26] MEDS: SERTRALINE HCL 100 MG TABLET PO SCH (20:17)
[2021-09-26] MEDS: traZODone HCL 50 MG TAB PO SCH (20:17)
[2021-09-26] MEDS: LORazepam 0.5 MG TAB PO PRN (20:23)
[2021-09-26] MEDS: ENOXAPARIN INJ 40 MG/0.4 ML SYR SQ SCH (22:10)
[2021-09-27] MEDS: ALBUT/IPRATROP 3MG/0.5MG NEB 3 ML VIAL NEB SCH ×4 (07:11→19:28)
[2021-09-27] MEDS: BUDESONIDE 0.5 MG/2 ML VIAL (PULMICORT) NEB SCH ×2 (07:12→19:52)
[2021-09-27] MEDS: ACETYLCYSTEINE 20% INHAL SOLN 4ML ***DISPENSED BY RESP. INH SCH ×2 (07:12→19:28)
[2021-09-27] MEDS: FORMOTEROL 20 MCG/2 ML VIAL NEB SCH ×2 (07:31→19:52)
[2021-09-27] MEDS: ISOSORBIDE MONO EXTENDED REL 30 MG TABCR PO SCH (08:59)
[2021-09-27] MEDS: methylPREDNISolone 4 MG TAB PO SCH ×3 (08:59→21:15)
[2021-09-27] MEDS: ASPIRIN 81 MG ECTAB PO SCH (08:59)
[2021-09-27] MEDS: dilTIAZem ER 120 MG CAPCR PO SCH (08:59)
[2021-09-27] MEDS: CHOLECALCIFEROL 1,000 UNITS 25 MCG TAB PO SCH (09:00)
[2021-09-27] MEDS: guaiFENesin 600 MG TABCR PO SCH ×2 (09:00→21:14)
[2021-09-27] MEDS: PANTOprazole 40 MG TAB PO SCH ×2 (09:00→21:15)
[2021-09-27] MEDS: UMECLIDINIUM BROMIDE 62.5MCG/BLISTER 7 PUFFS/INHALER INH SCH (09:01)
--- NOTE | 2021-09-27 14:56 | Hospitalist Progress Note ---
Date of Service September 27, 2021 Assessment & Plan (1) Acute on chronic respiratory failure: (2) COPD exacerbation: (3) SOB (shortness of breath): (4) HTN (hypertension): Plan: 71-year-old male who has significant past medical history of severe COPD on chronic 6 L of oxygen, cirrhosis, HTN, PTSD, depression with anxiety, history of tobacco abuse, anemia who presents to ED 09/18 secondary to worsening shortness of breath for past 1.5 weeks. He is being managed for the following: #. Acute on Chronic Respiratory failure with hypoxia and hypercapnia #. COPD Exac - sputum culture: moderate normal mary kate blood culture: negative - patient gradually improved, still desaturating with minimal activity. Currently on 5-6 L of oxygen (uses 4 to 6 L at home) with Oxymizer which he also uses at home - S/p levaquin x 7 days; s/p iv solu medrol, currently on medrol dosepak - c/w duoneb QID and q2h prn; INH budesonide and formoterol BID. - c/w incentive spirometry, mucinex, mucomyst. - Pulm evaluated, discharge on current nebulizer and inhaler regimen. resume azithro, start roflumilast. - 2 Step done 09/27 , pt requiring 10 L O2 with activity, will likely need high capacity O2 concentrator, repeat 2 step in 2days. 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 #. SIRS/ Leucocytosis: Resolved. #. Other chronic medical conditions: HTN, and depression with anxiety/PTSD Continue with diltiazem, Imdur, Zoloft, BuSpar, trazodone Mood stable #. DVT ppx:SQ Lovenox #. Disposition: PT/OT, CM to assist with DC planning. Might need to consider possibility of LTAC given high oxygen requirement and prolonged duration that patient requires every time he is admitted to go back to his baseline oxygen. Patient will likely need high capacity oxygen concentrator. F/U w/ pulm rehab as OP. Will need follow-up with [facility] in 1 week Admission and Anticipated Discharge Date Admission Date: September 18, 2021 Subjective Patient seen and examined at bedside as a follow-up of exacerbation of COPD. Patient was lying in bed, on 5 L nasal cannula, just came from a two-step test upon my exam, looks tired, NAD, no new acute events overnight. Patient reports having some cough with whitish sputum and also reports shortness of breath with minimal exertion. Patient stated that he would like to talk with his pulm doctor, let Pulm know, discussed with pulm. Patient reports having great appetite and is moving bowels okay, patient denies any fever/chills/chest pain/palpitations/leg pain/other review of symptoms. Physical Exam Physical Exam: GENERAL: Alert and oriented x3. NAD, on 5L NC O2. HEENT: No pallor, no icterus. Pupils equal, round and reactive to light. Oral mucosa moist. NECK: No JVD, no neck masses. HEART: S1 and S2 heard. Regular rate and rhythm. No murmur, no gallop. RESPIRATORY SYSTEM: Normal AP diameter. No accessory muscle use. No wheezing, no crackles. decreased b/l breath sounds ABDOMEN: Soft, bowel sounds present, nontender, no distention. CENTRAL NERVOUS SYSTEM: No facial droop. Speech is clear. Obeys simple commands. Moves extremities. EXTREMITIES: No edema, no erythema seen. Results & Data Results & Data ([facility]) Vital Signs (Past 12 Hours) Vital Signs Temp Pulse Pulse Resp BP Pulse Ox 09/27/21 14:24 36.8 C 87 137/71 88 L 09/27/21 11:38 36.9 C 86 20 135/82 94 09/27/21 11:07 86 20 90 09/27/21 08:57 36.3 C L 83 18 125/64 93 09/27/21 08:00 77 09/27/21 07:32 77 18 96 09/27/21 03:07 36.5 C 82 20 143/78 H 94
[2021-09-27] MEDS: FLUTICASONE PROPIONATE NA SPR 16 GM BTL PRN (21:13)
[2021-09-27] MEDS: LORazepam 0.5 MG TAB PO PRN (21:13)
[2021-09-27] MEDS: busPIRone 5 MG TAB PO SCH (21:14)
[2021-09-27] MEDS: traZODone HCL 50 MG TAB PO SCH (21:15)
[2021-09-27] MEDS: SERTRALINE HCL 100 MG TABLET PO SCH (21:15)
[2021-09-27] MEDS: ENOXAPARIN INJ 40 MG/0.4 ML SYR SQ SCH (21:16)
[2021-09-27] MEDS: ACETAMINOPHEN 325 MG TAB PO PRN (22:04)
[2021-09-28] MEDS ORDERED: methylPREDNISolone 4 MG TAB PO SCH (07:00)
[2021-09-28] MEDS: FORMOTEROL 20 MCG/2 ML VIAL NEB SCH (07:08)
[2021-09-28] MEDS: ALBUT/IPRATROP 3MG/0.5MG NEB 3 ML VIAL NEB SCH ×2 (07:08→11:09)
[2021-09-28] MEDS: ACETYLCYSTEINE 20% INHAL SOLN 4ML ***DISPENSED BY RESP. INH SCH (07:08)
[2021-09-28] MEDS: BUDESONIDE 0.5 MG/2 ML VIAL (PULMICORT) NEB SCH (07:08)
[2021-09-28 07:46] LABS: Hemoglobin 10.9 g/dL (14.0-18.0); Mean Corpuscular Hemoglobin 29.8 pg (25-34); Mean Corpuscular Hgb Conc 31.1 g/dL (32-36); Mean Corpuscular Volume 95.6 fL (80-100); Mean Platelet Volume 9.8 fL (7.4-10.4); Platelet Count 149 K/uL (130-400); RDW Coefficient of Variation 15.5 % (11.5-14.5); Red Blood Count 3.66 M/uL (4.7-6.1); White Blood Count 14.18 K/uL (4.8-10.8)
[2021-09-28] MEDS: UMECLIDINIUM BROMIDE 62.5MCG/BLISTER 7 PUFFS/INHALER INH SCH (08:18)
[2021-09-28] MEDS: FLUTICASONE PROPIONATE NA SPR 16 GM BTL PRN (08:18)
[2021-09-28] MEDS: guaiFENesin SUGAR FREE 200 MG/10 ML UDC PO PRN (08:19)
[2021-09-28] MEDS: guaiFENesin 600 MG TABCR PO SCH (08:20)
[2021-09-28] MEDS: PANTOprazole 40 MG TAB PO SCH (08:20)
[2021-09-28] MEDS: ISOSORBIDE MONO EXTENDED REL 30 MG TABCR PO SCH (08:22)
[2021-09-28] MEDS: CHOLECALCIFEROL 1,000 UNITS 25 MCG TAB PO SCH (08:22)
[2021-09-28] MEDS: ASPIRIN 81 MG ECTAB PO SCH (08:22)
[2021-09-28] MEDS: dilTIAZem ER 120 MG CAPCR PO SCH (08:22)
[2021-09-28 08:31] LABS: BUN Creatinine Ratio 26.8 (10-20); Calcium 8.7 mg/dl (8.5-10.1); Creatinine Clr Calc Pharmacy 94.2 ml/min; Est GFR (African American) 103.1 ml/min; Magnesium 2.1 mg/dl (1.7-2.4); Potassium 4.1 mmol/L (3.5-5.1)
[2021-09-28] MEDS ORDERED: ROFLUMILAST 500 MCG TAB PO SCH (09:00)
--- NOTE | 2021-09-28 13:06 | Discharge Summary ---
Date of Service September 28, 2021 Admission HPI Per Admitting Provider This is a 71-year-old male who has significant past medical history of severe COPD on chronic 6 L of oxygen, cirrhosis, HTN, PTSD, depression with anxiety, history of tobacco abuse, anemia who presents to ED secondary to worsening shortness of breath times 1.5 weeks. Patient states over the last week and a half he has been experiencing increasing shortness of breath, productive cough with purulent sputum and increased oxygen requirements. He denies any sick contacts except his grandson does have pinkeye. He complains of increased wheezing. He states at baseline he typically uses 6 L of oxygen at night and 4 L during the day. Over the last 2 nights he had to increase his oxygen to 8 and 10 L without improvement; therefore, he came to ED. He does complain of generalized chest wall pain that is worse with coughing and inspiration. He feels it is related to coughing. It is not exertional. He denies any documented fever, chills, sweats, lightheadedness, dizziness, syncope, chest pain, hemoptysis, palpitations, nausea, vomiting, abdominal pain, melena, hematochezia, diarrhea, dysuria, increased urgency or frequency with urination. He uses his nebulizer routinely 3 times a day. He has not increased this. He also has been compliant with his Symbicort. His appetite has been normal and he denies any weight loss. Of significance patient was last hospitalized June 14 July 04 for COPD exacerbation. During the hospitalization he was evaluated by [facility] pulmonology. At that time it was deemed his COPD was end-stage and he was transitioned from azithromycin 3 times a week to Bactrim 3 times a week. He was also treated with Daliresp while in hospital. He states he has upcoming appointment to establish care with Dr. Abel in 2 days. In ED patient initially increased oxygen requirements at 10 L. He received DuoNeb treatment, 125 IV Solu-Medrol, IV cefepime, azithromycin and Toradol. His oxygenation improved and is currently now satting at 6 L. In ED he did have mild leukocytosis at 18 K. He denies any recent steroid use as outpatient. He does admit to increasing his Bactrim use to twice daily for 2 weeks due to abnormal sputum culture. He does not recall what organism grew on sputum culture. Admission Exam Per Admitting Provider Constitutional: WD/WN, M, chronic ill appearing, vitals as above, NAD, sitting up in bed, pleasant, conversing easily Head: Normocephalic, Atraumatic Eyes: + ecchymosis to superior aspect of R eyelid and L lateral forehead in various stages of healing, PERRL, conjunctivae normal, anicteric sclerae ENMT: external ear and nose normal, oropharynx normal Neck: trachea midline, no thyromegaly normal visual inspection Respiratory: increased resp effort, on 6L of O2 via NC, diminished breath sounds throughout, poor air exchange, no w/r/r, no accessory muscle use Cardiovascular: RRR, no murmur, no edema Vessels: no JVD or carotid bruit Chest: normal inspection of chest Abdomen: normal bowel sounds, soft, nontender, no hepatosplenomegaly Musculoskeletal: no cyanosis or clubbing, AROM X4 Skin: no rashes, warm and dry normal turgor Neurologic: PERRL, EOMI, accommodation nl, no face palsy, no dysarthria CN's II-XI intact grossly bilaterally and moves all extremities Psychiatric: A+Ox3, euthymic affect : deferred Principal Diagnosis Acute exacerbation of COPD End-stage lung disease Discharge Exam GENERAL: Alert and oriented x3. NAD, on 4L NC O2. HEENT: No pallor, no icterus. Pupils equal, round and reactive to light. Oral mucosa moist. NECK: No JVD, no neck masses. HEART: S1 and S2 heard. Regular rate and rhythm. No murmur, no gallop. RESPIRATORY SYSTEM: Normal AP diameter. No accessory muscle use. No wheezing, no crackles. decreased b/l breath sounds ABDOMEN: Soft, bowel sounds present, nontender, no distention. CENTRAL NERVOUS SYSTEM: No facial droop. Speech is clear. Obeys simple commands. Moves extremities. EXTREMITIES: No edema, no erythema seen. Discharge Data Allergies Allergy/AdvReac Type Severity Reaction Status Date / Time bee venom protein (honey bee) Allergy Severe ANAPHYLAXIS Verified 09/18/21 14:17 amoxicillin Allergy Intermediate FACIAL Verified 09/18/21 14:17 SWELLING (EYES SWELLED SHUT) clavulanic acid Allergy Intermediate FACIAL Verified 09/18/21 14:17 SWELLING (EYES SWELLED SHUT) pneumococcal vaccine Allergy Intermediate SWELLING Verified 09/18/21 14:17 Gpueiev-XHV-MwY Reductase Allergy Intermediate CPK'S GO Verified 09/18/21 14:17 Inhibitor THROUGH [Akupogp-Chi-Efo Reductase ROOF Inhibitor] prednisone AdvReac Intermediate confusion Verified 09/18/21 14:17 and agitation Consultations 09/18/21 15:33 ED Decision to Admit Stat 09/18/21 16:23 Consult Health Information Management Routine 09/19/21 16:49 Consult Pulmonology Routine 09/23/21 08:41 Consult Health Information Management Routine Hospital Course (1) Acute on chronic respiratory failure: (2) COPD exacerbation: (3) SOB (shortness of breath): (4) HTN (hypertension): 71-year-old male who has significant past medical history of severe COPD on chronic 6 L of oxygen, cirrhosis, HTN, PTSD, depression with anxiety, history of tobacco abuse, anemia who presents to ED 09/18 secondary to worsening shortness of breath for past 1.5 weeks. He was managed for the following: #. Acute on Chronic Respiratory failure with hypoxia and hypercapnia #. COPD Exac - sputum culture: moderate normal mary kate blood culture: negative - Status post Levaquin 7 days. 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 Patient currently on 4 L oxygen at rest, denied 2 step test today and he insisted on going home. Denies any LTAC or rehab placement. Per patient, patient has oxygen concentrator that goes up to 15 L. Patient is started on Roflumilast and restarted on azithromycin MWF. Patient made aware that he needs to take 250 mg daily Roflumilast for 28 days followed by 500 mg daily Patient to follow-up with his primary care physician and pulmonology within a week time. Patient to take medications as prescribed at the time of discharge. Patient states that he is approved for pulmonology with [facility]. He wants to follow-up with [facility] pulmonology. #. Leucocytosis: due to steroid use. #. Other chronic medical conditions: HTN, and depression with anxiety/PTSD Continue with diltiazem, Imdur, Zoloft, BuSpar, trazodone Mood stable Patient being discharged to home with home health with following instruction at the point of discharge: Follow-up with your primary care physician within a week time. Follow-up with your lung doctor in a week time. You have been restarted on your azithromycin 250 mg MWF. You have been started on Daliresp as discussed at the bedside. You are supposed to take 250 mg daily for 28 days and then 500 mg daily afterwards. Take your medications as prescribed. Total Time Total Time Spent Total Time Spent (In Minutes): 40 Discharge Plan Discharge Items Patient Disposition: Home - Home Health Services Reason For Visit: A/C RESPIRATORY FAILURE, COPD EXACERBATION Discharge Diagnosis: Acute exacerbation of COPD End-stage COPD Activity: Resume your previous activity Non-emergency contact: Primary Care Provider Call non-emergency contact if: you have any medication questions, your symptoms worsen and your temperature is above 101 Follow-up/Referrals: Valencia Patel PA-C [Primary Care Provider] - Diet: Regular Addtl Attending Provider Instructions: Follow-up with your primary care physician within a week time. Follow-up with your lung doctor in a week time. You have been restarted on your azithromycin 250 mg MWF. You have been started on Daliresp as discussed at the bedside. You are supposed to take 250 mg daily for 28 days and then 500 mg daily afterwards. Take your medications as prescribed. Pending Studies at Discharge: No Stand-Alone Forms: [facility] [employer], Smoking Cessation Medications and DC Order Prescriptions: New formoterol fumarate [Perforomist] 20 mcg/2 mL Solution For Nebulization 20 mcg NEB BIDR 30 Days Qty: 120 RF: 2 ipratropium-albuterol 0.5 mg-3 mg(2.5 mg base)/3 mL Solution For Nebulization 3 ml NEB QIDR 30 Days Qty: 180 RF: 2 Incruse Ellipta 62.5 mcg/actuation Blister With Device 1 inh inhalation DAILY 30 Days Qty: 30 RF: 2 methylprednisolone 4 mg Tablet 4 mg PO UD 3 Days Qty: 6 RF: 0 guaifenesin [Mucinex] 600 mg Tablet Extended Release 12hr 1,200 mg PO BID 7 Days Qty: 28 RF: 0 acetylcysteine 200 mg/mL (20 %) Solution 5 ml inhalation Q12R 7 Days Qty: 90 RF: 0 budesonide 0.5 mg/2 mL Suspension For Nebulization 0.5 mg NEB BIDR 30 Days Qty: 60 RF: 0 azithromycin 250 mg Tablet 250 mg PO MoWeFr@0900 Qty: 18 RF: 0 Daliresp 500 mcg Tablet 250 mcg PO DAILY Qty: 28 RF: 0 Continued albuterol sulfate 90 mcg/actuation Hfa Aerosol Inhaler 2 puff INHALATION Q6H PRN (Reason: Shortness Of Breath Or Wheezing) RF: 0 buspirone 5 mg Tablet 5 mg PO QPM RF: 0 cetirizine 10 mg Tablet 10 mg PO DAILY PRN (Reason: Allergy Symptoms) RF: 0 sertraline 100 mg Tablet 200 mg PO HS RF: 0 trazodone 150 mg Tablet 150 mg PO HS RF: 0 omeprazole 20 mg Capsule,Delayed Release(Dr/Ec) 20 mg PO BID RF: 0 epinephrine [EpiPen] 0.3 mg/0.3 mL Auto-Injector 0.3 mg IM DIRECTED PRN (Reason: Allergic Reaction) RF: 0 cholecalciferol (vitamin D3) [Vitamin D3] 25 mcg (1,000 unit) Capsule 1,000 unit PO QAM RF: 0 cyanocobalamin (vitamin B-12) [Vitamin B-12] 1,000 mcg Tablet 1,000 mcg PO 2XWK RF: 0 diltiazem HCl 240 mg Capsule,Ext.Rel 24h Degradable 240 mg PO QAM RF: 0 isosorbide mononitrate 30 mg Tablet Extended Release 24 Hr 30 mg PO QAM Qty: 30 RF: 0 aspirin 81 mg Tablet,Delayed Release (Dr/Ec) 81 mg PO QAM Qty: 30 RF: 0 Saline Mist 0.65 % Aerosol,Sadler 1 spray NA Q2H 30 Days Qty: 1 RF: 2 Discontinued Spiriva with HandiHaler 18 mcg Capsule, W/Inhalation Device 1 cap INHALATION QPM RF: 0 guaifenesin 200 mg Tablet 400 mg PO BID RF: 0 budesonide-formoterol [Symbicort] 160-4.5 mcg/actuation Hfa Aerosol Inhaler 2 puff INHALATION BID RF: 0 albuterol sulfate 2.5 mg /3 mL (0.083 %) Solution For Nebulization 2.5 mg inhalation QID 14 Days Qty: 168 RF: 2 Discharge Orders: Discharge Order (Routine); Ordered 09/28/21 Ordered By: Fidel Reilly Admission Data Admit Date/Time: 09/18/21 15:44 Attending Provider: Fidel Reilly Admit Provider: Patel Hopkins Primary Care Provider: Valencia Patel Other Providers: Patel Hopkins ; [facility] ; Lisbeth Osuna ; Julien AguilarMuna ; [facility]
[2021-09-29] MEDS ORDERED: methylPREDNISolone 4 MG TAB PO SCH (07:00)
[2021-09-29] MEDS ORDERED: AZITHROMYCIN 250 MG TAB PO SCH (09:00)
== END 2021-09-28 14:26 | disposition home health service (06) | DRG 190 ==
LOC: ED 13:22 → SUATTDRO 15:44 → 2N 15:44

== ENCOUNTER 2022-06-11 18:18 | Inpatient (IN) ==
[2022-06-11] MEDS ORDERED: KETOROLAC TROMETHAMINE 15 MG/ML VIAL IV STA (18:56)
[2022-06-11] MEDS ORDERED: guaiFENesin 600 MG TABCR PO STA (18:56)
[2022-06-11] MEDS ORDERED: SODIUM CHLORIDE 0.9% 1000ML 1,000 ML IV STA (18:56)
[2022-06-11] MEDS ORDERED: ACETAMINOPHEN 1,000 MG/100 ML VIAL IV STA (18:56)
[2022-06-11] MEDS ORDERED: methylPREDNISolone 125 MG/2 ML VIAL IV STA (19:02)
[2022-06-11] MEDS ORDERED: ALBUT/IPRATROP 3MG/0.5MG NEB 3 ML VIAL NEB ONE (19:02)
[2022-06-11 19:30] LABS: Prothrombin Time 10.7 Seconds (9.0-12.0)
--- NOTE | 2022-06-11 19:31 | XRay Report ---
SINGLE VIEW CHEST CLINICAL HISTORY: Atypical chest pain. FINDINGS: An AP, portable, upright chest radiograph is compared to study dated 09/18/2021 and correlat ed with chest CT dated 05/11/2021. The heart is mildly enlarged noting atherosclerotic calcification o f the thoracic aorta. The pulmonary vasculature is noncongested. Enlargement of the central pulmonary arteries suggests pulmonary hypertension. Calcified right hilar nodes are again noted. Advanced emph ysema and chronic interstitial thickening is similar to previous. There are scattered calcified granu tsering. Foci of parenchymal scarring are seen throughout both lungs. Airspace consolidation is seen at both lung bases. No large pleural effusion or pneumothorax is seen. The skeletal structures are oste openic. The bony thorax is grossly intact. IMPRESSION: 1. Airspace consolidation is seen at both lung bases. Correlate clinically for evidence of pneumonia /aspiration pneumonitis. Radiographic follow-up to resolution is recommended. 2. Cardiomegaly and advanced emphysema. ACT 112: Negative or not required by law. Electronically signed by: Luciano Prieto M.D. 06/11/2022 7:30 PM
[2022-06-11 19:34] LABS: Basophils # (auto) 0.04 K/uL (0-0.2); Basophils % (auto) 0.3 %; Eosinophils # (auto) 0.28 K/uL (0-0.50); Hemoglobin 12.9 g/dl (14.0-18.0); Immature Granulocytes # (auto) 0.06 K/uL (0.00-0.02); Immature Granulocytes % (auto) 0.4 %; Lymphocytes # (auto) 1.54 K/uL (1.2-3.4); Lymphocytes % (auto) 11.1 %; Mean Corpuscular Hemoglobin 30.6 pg (25.0-34.0); Mean Corpuscular Hgb Conc 33.9 g/dL (32.0-36.0); Mean Platelet Volume 10.9 fL (9.4-12.4); Monocytes # (auto) 0.95 K/uL (0.24-0.82); Monocytes % (auto) 6.9 %; Neutrophils # (auto) 10.95 K/uL (1.4-6.5); Neutrophils % (auto) 79.3 %; Platelet Count 195 K/uL (130-400); RDW Standard Deviation 42.5 fL (36.4-46.3); Red Blood Count 4.22 M/uL (4.63-6.08); White Blood Count 13.82 K/ul (4.8-10.8)
[2022-06-11 19:35] LABS: Alanine Aminotransferase 11 U/L (7-52); Albumin Globulin Ratio 1.2 (0.9-2); Albumin Level 4.3 gm/dl (3.4-5.0); Alkaline Phosphatase 91 U/L (34-104); Anion Gap 7 (3-11); Aspartate Aminotransferase 19 U/L (13-39); BUN Creatinine Ratio 11.4 (10-20); Bilirubin,Total 0.6 mg/dl (0.2-1.0); Blood Urea Nitrogen 12 mg/dl (6-23); Calcium 9.5 mg/dl (8.5-10.1); Carbon Dioxide 32 mmol/L (21-32); Chloride 97 mmol/L (98-107); Est GFR (African American) 81.8 ml/min; Est GFR (Non-African American) 70.6 ml/min; Globulin 3.7 gm/dl (2.5-4.0); Glucose 121 mg/dl (70-99(Fasting)); Lipase 12 U/L (11-82); Potassium 3.9 mmol/L (3.5-5.1); Sodium 136 mmol/L (136-145)
[2022-06-11 19:39] LABS: Troponin I High Sensitivity 5.4 pg/ml (0-20)
[2022-06-11 20:06] LABS: Influenza A virus by PCR Negative (Neg); Influenza B virus by PCR Negative (Neg); RSV by PCR Negative (Neg); SARS CoV2 RNA(COVID-19) Ceph NEGATIVE (Negative)
[2022-06-11] MEDS ORDERED: OPTIRAY 320 500ml IV ONE (20:35)
--- NOTE | 2022-06-11 21:06 | CT Scan Report ---
CT ANGIOGRAM OF THE CHEST CLINICAL HISTORY: Atypical chest pain. COMPARISON STUDY: Chest x-ray dated 06/11/2022. Prior chest CT scans, most recently dated 05/11/2021. TECHNIQUE: Following the IV administration of 112 cc of Optiray 320, CT angiogram of the chest was pe rformed from the upper abdomen to the thoracic inlet utilizing the pulmonary embolus protocol. Images are reviewed in the axial, sagittal, and coronal planes. 3-D MIPS images are created and assessed. I V contrast was administered without complication. A dose lowering technique was utilized adhering to the principles of ALARA. CT DOSE: 347.17 mGy.cm FINDINGS: Thyroid: Imaged portions of the thyroid gland are normal in size and attenuation. Thoracic aorta: There is mild atherosclerotic calcification of the thoracic aorta, which is normal in caliber and demonstrates bovine variant arch anatomy. No dissection is seen. Pulmonary vasculature: The pulmonary trunk is dilated, measuring 4.1 cm in diameter. This suggests pu lmonary artery hypertension. There are no filling defects identified in main, lobar, or segmental pul monary branches to suggest pulmonary embolus. Heart: The heart is mildly enlarged and without pericardial effusion. There are scattered coronary ar gerardo calcifications. Lungs and pleural spaces: Advanced emphysematous change is again noted. Patchy airspace consolidation is seen in the right upper lobe. The trachea and central airways appear clear. Frontal scarring is s een throughout both lungs. There are scattered calcified granulomas. Diffuse peribronchial thickening is observed. A 5 mm left upper lobe pulmonary nodule is seen on image #176. This has been present da ting back to 2010 and is of low suspicion. No pleural effusion is identified. Mediastinum: There is no mediastinal lymphadenopathy. Arabella: There are calcified right hilar nodes. No hilar adenopathy is seen. Axillae: There is no axillary lymphadenopathy. Upper abdomen: There are calcified splenic granulomas. Imaged portions of the liver show mild cirrhot ic change Skeletal structures: The skeletal structures are osteopenic. There is a mild chronic superior endplat e compression deformity of T3. Mild spondylotic change is seen throughout the thoracic spine. There a re healed left-sided rib fractures. No lytic or blastic bony lesions are seen. IMPRESSION: 1. There is no evidence of pulmonary embolus in the main, lobar, or segmental pulmonary arteries. 2. Mild cardiomegaly and advanced emphysema with evidence of pulmonary artery hypertension. 3. Airspace consolidation in the right upper lobe is typical for pneumonia/aspiration pneumonitis. Cl inical correlation will be required and radiographic follow-up to resolution is recommended. 4. Diffuse peribronchial thickening suggests bronchitis/reactive airway disease. Clinical correlation will be required. 5. Additional findings as above. ACT 112: Negative or not required by law. Electronically signed by: Luciano Prieto M.D. 06/11/2022 9:05 PM
[2022-06-11] MEDS ORDERED: CEFEPIME 2,000 MG/20 ML VIAL IV STA (21:57)
[2022-06-11] MEDS ORDERED: fentaNYL citrate 100 MCG/2 ML VIAL IV STA (21:58)
--- NOTE | 2022-06-11 22:17 | Emergency Department Note ---
Impression & Plan Acute on chronic respiratory failure with hypoxia, End stage COPD, Pneumonia ED Provider Note NAME: PANTERA AVILEZ AGE: 72 SEX: M ARRIVES VIA: Walk-In INFORMANT: Patient ED PROVIDER(S): Hiram Main MD CHIEF COMPLAINT: Shortness of breath PLAN: Disposition: Admit MEDICAL DECISION MAKING: The patient is a pleasant 72-year-old gentleman with a past medical history of end-stage COPD on 6 L home oxygen who presents to the emergency department from home for worsening shortness of breath on his home oxygen noted to be in the low to mid 80s on his 6 L. Patient reports having increased cough congestion with thick yellow sputum over the past several days. Denies any fevers. He reports right-sided chest pain worse when with inspiration. He denies any nausea, vomiting, diarrhea or urinary symptoms. On arrival the patient is uncomfortable but no acute distress, afebrile with O2 saturation 86% on his nasal cannula with respiratory rate in the low 30s. Blood pressure was stable. Patient was placed on 100% nonrebreather until hour-long DuoNeb was administered. He appears clinically dry. Lungs with diminished breath sounds bilaterally with underlying wheeze with mild increased work of breathing. EKG without overt acute ischemia. Chest x-ray demonstrates evidence of bilateral basilar consolidation suspicious for pneumonia/aspiration. WBC 13.8 with neutrophil predominance. H/H similar to prior values. Platelets within normal limits. Chemistry without metabolic acidosis. Electrolytes and LFTs unremarkable. High-sensitivity troponin 5.4, within normal limits. Lipase is not elevated. COVID-19, influenza and RSV PCR's were negative. CT of the chest further characterize the chest x-ray findings with airspace consolidation in the right upper lobe. Additional noted of diffuse peribronchial thickening is seen. There is no PE identified. Upon reevaluation patient's work of breathing was improved following initial treatment with steroids and hour-long DuoNeb. However given the severity of his symptoms and evidence of pneumonia he did agree with plan for admission. Blood cultures, Lactate, and procalcitonin ordered and initial treatment with cefepime ordered. Case was discussed with Dr. Reilly, [facility] hospitalist, who will evaluate the patient for admission. Procalcitonin was not elevated however initial lactic acid 5.6. Further management per admitting team. Triage Nursing notes reviewed and agree them. Prior medical records reviewed Vital Signs: reviewed Differential diagnosis: Reactive airway disease, pneumonia, pneumothorax, COPD, CHF, infections, cardiac ischemia, pulmonary embolism, musculoskeletal, gastrointestinal, as well as other pathologies. ER treatment provided: See below. Diagnostics interpreted by me: ECG: Normal sinus rhythm, 66 bpm, no ectopy, no overt ST elevation or depression, QTC 448, QRS 78. Cardiac Monitoring: An order for continuous cardiac monitoring was placed and demonstrated normal sinus rhythm, 66 bpm, no ectopy. Laboratory studies: See below Imaging studies: See below Consultation(s): Dr. Reilly, [facility] hospitalist HPI: The patient is a pleasant 72-year-old gentleman with a past medical history of end-stage COPD on 6 L home oxygen who presents to the emergency department fr home for worsening shortness of breath on his home oxygen noted to be in the low to mid 80s on his 6 L. Patient reports having increased cough congestion with thick yellow sputum over the past several days. Denies any fevers. He reports right-sided chest pain worse when with inspiration. He denies any nausea, vomiting, diarrhea or urinary symptoms. ROS: See above HPI for pertinent positives & negatives. A total of 10 systems reviewed and were otherwise negative. VITALS:See Below PHYSICAL EXAMINATION: GENERAL: Awake, alert, fatigued-appearing, in mild respiratory distress HENT: Normocephalic, atraumatic. Oropharynx with dry mucous membranes and otherwise unremarkable. EYES: Normal conjunctiva. Sclera non-icteric. NECK: Supple. No nuchal rigidity. FROM. No JVD. RESPIRATORY: Diminished breath sounds bilaterally with underlying wheeze with mild increased work of breathing. CARDIAC: Regular rate, normal rhythm. Extremities warm and well perfused. Pulses equal. ABDOMEN: Soft, non-distended. No tenderness to palpation. No rebound or guarding. No masses. RECTAL: Deferred. MUSCULOSKELETAL: Chest examination reveals no tenderness. The back is symmetrical on inspection without obvious abnormality. There is no CVA tenderness to palpation. No joint edema. LOWER EXTREMITIES: Calves are equal size bilaterally and non-tender. No edema. No discoloration. NEURO: Normal sensorium. No sensory or motor deficits noted. SKIN: No rash or jaundice noted. ED COURSE: Critical Care: I have personally spent greater than 35 minutes of critical care time in the di rect management of this patient. This includes bedside care, interpretation of diagnostic studies, and testing, discussion with consultants, patient, and family members, and other required patient management activities. This 35 minutes is in excess of all separately billable procedures. Hiram Main MD Past Med/Surg History Medical History (Updated 06/12/22 @ 03:46 by Hiram Main MD) Anemia Chronic dyspnea COPD (chronic obstructive pulmonary disease) with emphysema COPD exacerbation Depression End stage COPD GERD (gastroesophageal reflux disease) Hearing deficit BL BRUNO 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 [place] exposure History of COVID-19 05/2020 - hospitalized at [facility] - sob, cough, generalized weakness --> pneumon ia; still requiring more supplemental oxygen since having Covid (currently on 6 lpm cont home o2, prior to covid was only on 4 lpm) History of kidney stones History of tobacco abuse HTN (hypertension) On home O2 cont @ 6 lpm Osteoarthritis Palliative care encounter PTSD (post-traumatic stress disorder) Pulmonary nodules Thrombocytopenia Surgical History Dilatation of ureter H/O hernia repair History of appendectomy History of cardiac cath x 2 - most recent [place] 2010 - no stents; also cath years prior at [facility] [place] and no stents History of colonoscopy History of extraction of renal calculus History of tonsillectomy Loss of teeth due to extraction S/P arthroscopic surgery of right knee Family History Mother Colon cancer Father FH: kidney cancer Other Cancer Social History Smoking Status: Former smoker Tobacco Type: Cigarettes Cigarettes Per Day: 40 pack year hx; Second Hand Exposure: No; Hx Alcohol Use: No Hx Substance Use: No Preferred Language: Uzbek Communication Ability: Effective 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 Beliefs That Will Affect Care: None marital status: Current Living Situation: Spouse Current Living Situation Comment: lives with spouse 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 Other Information That Helps Us Care for You: No Feels Safe at Home: Yes Safety Concerns: Feels Safe At This Time Assistive Devices: Glasses Allergies Allergies Allergy/AdvReac Type Severity Reaction Status Date / Time bee venom protein (honey bee) Allergy Severe ANAPHYLAXIS Verified 06/11/22 23:05 amoxicillin Allergy Intermediate FACIAL Verified 06/11/22 23:05 SWELLING (EYES SWELLED SHUT) clavulanic acid Allergy Intermediate FACIAL Verified 06/11/22 23:05 SWELLING (EYES SWELLED SHUT) pneumococcal vaccine Allergy Intermediate SWELLING Verified 06/11/22 23:05 [id number]-KMZ-ScF Reductase Allergy Intermediate CPK'S GO Verified 06/11/22 23:05 Inhibitor THROUGH [Pirirae-Ioj-Lqq Reductase ROOF Inhibitor] prednisone AdvReac Intermediate confusion Verified 06/11/22 23:05 and agitation Home Meds Home Medications Medication Instructions Recorded Confirmed omeprazole 20 mg capsule,delayed 20 mg PO BID 04/08/18 06/11/22 release sertraline 100 mg tablet 200 mg PO HS 04/08/18 06/11/22 trazodone 150 mg tablet 150 mg PO HS 04/08/18 06/11/22 albuterol sulfate 90 mcg/actuation 2 puff inhalation Q6H PRN 07/04/18 06/11/22 aerosol inhaler Shortness Of Breath Or Wheezing epinephrine 0.3 mg/0.3 mL 0.3 mg IM DIRECTED PRN Allergic 08/22/18 06/11/22 injection, auto-injector (EpiPen) Reaction cholecalciferol (vitamin D3) 25 2,000 unit PO QAM 08/19/19 06/11/22 mcg (1,000 unit) capsule (Vitamin D3) cyanocobalamin (vitamin B-12) 1,000 mcg PO 2XWK 12/19/20 06/11/22 1,000 mcg tablet (Vitamin B-12) Mucinex 200mg 400 mg PO BID 06/11/22 06/11/22 ascorbic acid (vitamin C) 1,000 mg 1 g PO DAILY 06/11/22 06/11/22 tablet (Vitamin C) budesonide 0.25 mg/2 mL suspension 0 mg inhalation BID 06/11/22 06/11/22 for nebulization buspirone 15 mg tablet 7.5 mg PO HS 06/11/22 06/11/22 ipratropium 0.5 mg-albuterol 3 mg 3 ml NEB QID PRN Shortness Of 06/11/22 06/11/22 (2.5 mg base)/3 mL nebulization Breath Or Wheezing soln lactobacillus combination no.4 3 0 mmu cells PO DAILY 06/11/22 06/11/22 billion cell capsule (Probiotic) lanolin alcohols-mineral 1 applic topical DAILY PRN Dry Skin 06/11/22 06/11/22 oil-w.petrolatum-ceresin topical cream (Eucerin topical cream) potassium chloride 20 mEq 10 meq PO DAILY 06/11/22 06/11/22 tablet,extended release Previous Rx's Medication Instructions Recorded umeclidinium 62.5 mcg/actuation 1 inh inhalation DAILY 30 days #30 09/26/21 blister powder for inhalation ea (Incruse Ellipta) acetylcysteine 100 mg/mL (10 %) 2 ml inhalation BID #100 mL 10/10/21 solution formoterol fumarate 20 mcg/2 mL 20 mcg (2 mL) NEB BID 30 days #120 12/25/21 solution for nebulization mL (Perforomist) Results & Data (ED) Vital Signs Vital Signs - 24 hr 06/11/22 18:24 06/11/22 18:56 06/11/22 18:57 Temperature 36 C L Temperature Source Temporal Artery Scan Pulse Rate 73 Pulse Rate [Apical] Pulse Rhythm Respiratory Rate 30 H Respiratory Effort / Characteristics Non-Labored Respiratory Depth Normal Respiratory Pattern Regular Blood Pressure 103/57 L Blood Pressure [Right Arm] Blood Pressure Mean 72 Blood Pressure Mean [Right Arm] Pulse Oximetry 86 L 86 L 100 Oxygen Delivery Method Nasal Cannula Nasal Cannula Non-rebreather Oxygen Flow Rate 6 6 15 Sepsis Recent Fever Within 48 Hours No Sepsis New/Unexplained Change in Mental Status N/A Sepsis Action Taken by Nursing No Action Required Oxygen Flow Rate - Titration 15 8 Pulse Oximetry Post Tiitration 100 97 06/11/22 18:29 06/11/22 19:05 06/11/22 20:19 Temperature Temperature Source Pulse Rate 65 Pulse Rate [Apical] 64 89 Pulse Rhythm Regular Respiratory Rate 22 20 20 Respiratory Effort / Characteristics Respiratory Depth Shallow Respiratory Pattern Blood Pressure Blood Pressure [Right Arm] 137/69 114/50 L Blood Pressure Mean Blood Pressure Mean [Right Arm] 91 71 Pulse Oximetry 97 98 94 Oxygen Delivery Method Non-rebreather Room Air Nasal Cannula Oxygen Flow Rate 8 6 Sepsis Recent Fever Within 48 Hours Sepsis New/Unexplained Change in Mental Status Sepsis Action Taken by Nursing Oxygen Flow Rate - Titration Pulse Oximetry Post Tiitration 06/11/22 19:30 06/11/22 21:06 Temperature Temperature Source Pulse Rate Pulse Rate [Apical] 63 88 Pulse Rhythm Respiratory Rate 22 22 Respiratory Effort / Characteristics Spontaneous Respiratory Depth Shallow Respiratory Pattern Blood Pressure Blood Pressure [Right Arm] 120/53 L Blood Pressure Mean Blood Pressure Mean [Right Arm] 75 Pulse Oximetry 94 92 Oxygen Delivery Method Nasal Cannula Nasal Cannula Oxygen Flow Rate 6 6 Sepsis Recent Fever Within 48 Hours Sepsis New/Unexplained Change in Mental Status Sepsis Action Taken by Nursing Oxygen Flow Rate - Titration Pulse Oximetry Post Tiitration Laboratory Data Result diagrams: 06/11/22 18:50 06/11/22 18:50 Lab Results 06/11/22 06/11/22 06/11/22 Range/Units 18:50 18:50 18:50 WBC 13.82 H (4.8-10.8) K/ul RBC 4.22 L (4.63-6.08) M/uL Hgb 12.9 L (14.0-18.0) g/dl Hct 38.0 L (40.1-51.0) % MCV 90.0 (80.0-100.0) fL MCH 30.6 (25.0-34.0) pg MCHC 33.9 (32.0-36.0) g/dL RDW Std Deviation 42.5 (36.4-46.3) fL RDW Coeff of Ren 13.0 (11.5-14.5) % Plt Count 195 (130-400) K/uL MPV 10.9 (9.4-12.4) fL Immature Gran % (Auto) 0.4 % Neut % (Auto) 79.3 % Lymph % (Auto) 11.1 % Berks % (Auto) 6.9 % Eos % (Auto) 2.0 % Baso % (Auto) 0.3 % Neut # (Auto) 10.95 H (1.4-6.5) K/uL Lymph # (Auto) 1.54 (1.2-3.4) K/uL Berks # (Auto) 0.95 H (0.24-0.82) K/uL Eos # (Auto) 0.28 (0-0.50) K/uL Baso # (Auto) 0.04 (0-0.2) K/uL Immature Gran # (Auto) 0.06 H (0.00-0.02) K/uL PT 10.7 (9.0-12.0) Seconds INR 1.0 (0.9-1.1) Sodium 136 (136-145) mmol/L Potassium 3.9 (3.5-5.1) mmol/L Chloride 97 L (98-107) mmol/L Carbon Dioxide 32 (21-32) mmol/L Anion Gap 7 (3-11) BUN 12 (6-23) mg/dl Creatinine 1.05 (0.6-1.4) mg/dl Est Cr Clr Drug Dosing Not Reportable Est GFR ( Amer) 81.8 ml/min Est GFR (Non-Af Amer) 70.6 ml/min BUN/Creatinine Ratio 11.4 (10-20) Glucose 121 H (70-99(Fasting)) mg/dl Calcium 9.5 (8.5-10.1) mg/dl Magnesium 2.0 (1.7-2.4) mg/dl Total Bilirubin 0.6 (0.2-1.0) mg/dl AST 19 (13-39) U/L ALT 11 (7-52) U/L Alkaline Phosphatase 91 (34-104) U/L Troponin I High Sens 5.4 (0-20) pg/ml Total Protein 8.0 (6.0-8.3) gm/dl Albumin 4.3 (3.4-5.0) gm/dl Globulin 3.7 (2.5-4.0) gm/dl Albumin/Globulin Ratio 1.2 (0.9-2) Lipase 12 (11-82) U/L Procalcitonin (0-0.5) ng/ml SARS-CoV-2 (PCR) (Negative) Influenza Type A (PCR) (Neg) Influenza Type B (PCR) (Neg) RSV (RT-PCR) (Neg) 06/11/22 06/11/22 Range/Units 18:51 18:51 WBC (4.8-10.8) K/ul RBC (4.63-6.08) M/uL Hgb (14.0-18.0) g/dl Hct (40.1-51.0) % MCV (80.0-100.0) fL MCH (25.0-34.0) pg MCHC (32.0-36.0) g/dL RDW Std Deviation (36.4-46.3) fL RDW Coeff of Ren (11.5-14.5) % Plt Count (130-400) K/uL MPV (9.4-12.4) fL Immature Gran % (Auto) % Neut % (Auto) % Lymph % (Auto) % Berks % (Auto) % Eos % (Auto) % Baso % (Auto) % Neut # (Auto) (1.4-6.5) K/uL Lymph # (Auto) (1.2-3.4) K/uL Berks # (Auto) (0.24-0.82) K/uL Eos # (Auto) (0-0.50) K/uL Baso # (Auto) (0-0.2) K/uL Immature Gran # (Auto) (0.00-0.02) K/uL PT (9.0-12.0) Seconds INR (0.9-1.1) Sodium (136-145) mmol/L Potassium (3.5-5.1) mmol/L Chloride (98-107) mmol/L Carbon Dioxide (21-32) mmol/L Anion Gap (3-11) BUN (6-23) mg/dl Creatinine (0.6-1.4) mg/dl Est Cr Clr Drug Dosing Est GFR ( Amer) ml/min Est GFR (Non-Af Amer) ml/min BUN/Creatinine Ratio (10-20) Glucose (70-99(Fasting)) mg/dl Calcium (8.5-10.1) mg/dl Magnesium (1.7-2.4) mg/dl Total Bilirubin (0.2-1.0) mg/dl AST (13-39) U/L ALT (7-52) U/L Alkaline Phosphatase (34-104) U/L Troponin I High Sens (0-20) pg/ml Total Protein (6.0-8.3) gm/dl Albumin (3.4-5.0) gm/dl Globulin (2.5-4.0) gm/dl Albumin/Globulin Ratio (0.9-2) Lipase (11-82) U/L Procalcitonin 0.05 (0-0.5) ng/ml SARS-CoV-2 (PCR) NEGATIVE (Negative) Influenza Type A (PCR) Negative (Neg) Influenza Type B (PCR) Negative (Neg) RSV (RT-PCR) Negative (Neg) Administered Medications Acetylcysteine (Acetylcysteine 20% Inhal Soln 4ml Dispensed By Resp.) 5 ml INH Q12R PEARL Stop: 07/11/22 23:44 Last Admin: 06/12/22 01:20 Dose: Not Given Documented By: ELVA Formoterol Fumarate (Formoterol 20 Mcg/2 Ml Vial) 20 mcg NEB BIDR PEARL Stop: 07/12/22 00:33 Last Admin: 06/12/22 01:20 Dose: Not Given Documented By: ELVA Doxycycline Hyclate 100 mg/ (Dextrose) 110 mls @ 50 mls/hr IV Q12H PEARL Stop: 06/19/22 00:59 Last Admin: 06/12/22 02:03 Dose: 50 mls/hr Documented By: ELLEN Discontinued Medications Albuterol (Albut/Ipratrop 3mg/0.5mg Neb 3 Ml Vial) 12 ml NEB ONE ONE; Protocol Stop: 06/11/22 19:03 Last Admin: 06/11/22 19:46 Dose: 12 ml Documented By: PHILL Buspirone HCl (Buspirone 7.5 Mg Tab) 7.5 mg PO ONE ONE Stop: 06/12/22 01:31 Last Admin: 06/12/22 02:02 Dose: 7.5 mg Documented By: ELLEN Fentanyl Citrate (Fentanyl Citrate 100 Mcg/2 Ml Vial) 25 mcg IV NOW STA Stop: 06/11/22 21:59 Last Admin: 06/11/22 22:15 Dose: 25 mcg Documented By: PHILL Guaifenesin (Guaifenesin 600 Mg Tabcr) 1,200 mg PO NOW STA Stop: 06/11/22 18:57 Last Admin: 06/11/22 19:16 Dose: 1,200 mg Documented By: PHILL Sodium Chloride (Nss 1000ml) 1,000 mls @ 999 mls/hr IV .Q1H1M STA Stop: 06/11/22 19:56 Last Infusion: 06/11/22 20:48 Dose: 0 mls/hr Documented By: Admin: 06/11/22 19:16 Dose: 999 mls/hr Documented By: PHILL Acetaminophen (Ofirmev) 1,000 mg in 100 mls @ 400 mls/hr IV NOW STA Stop: 06/11/22 19:10 Last Infusion: 06/11/22 19:46 Dose: 0 mls/hr Documented By: Admin: 06/11/22 19:16 Dose: 400 mls/hr Documented By: PHILL Cefepime HCl (Maxipime) 2,000 mg in 20 mls @ 5 mls/min IV NOW STA; Protocol Stop: 06/11/22 22:00 Last Admin: 06/11/22 22:16 Dose: 5 mls/min Documented By: PHILL Ioversol (Optiray 320 500ml) 112 ml IV ONCE ONE Stop: 06/11/22 20:36 Last Admin: 06/11/22 20:37 Dose: 112 ml Documented By: WHITNEY Ketorolac Tromethamine (Ketorolac Tromethamine 15 Mg/Ml Vial) 15 mg IV NOW STA Stop: 06/11/22 18:57 Last Admin: 06/11/22 19:16 Dose: 15 mg Documented By: PHILL Methylprednisolone (Methylprednisolone 125 Mg/2 Ml Vial) 125 mg IV NOW STA Stop: 06/11/22 19:03 Last Admin: 06/11/22 19:16 Dose: 125 mg Documented By: PHILL Sertraline HCl (Sertraline Hcl 100 Mg Tablet) 200 mg PO ONE ONE Stop: 06/12/22 01:32 Last Admin: 06/12/22 02:02 Dose: 200 mg Documented By: ELLEN Trazodone HCl (Trazodone Hcl 50 Mg Tab) 150 mg PO ONE ONE Stop: 06/12/22 01:32 Last Admin: 06/12/22 02:02 Dose: 150 mg Documented By: ELLEN Imaging Data Radiologist's Impression: Chest X-Ray 06/11/22 18:58 SINGLE VIEW CHEST CLINICAL HISTORY: Atypical chest pain. FINDINGS: An AP, portable, upright chest radiograph is compared to study dated 09/18/2021 and correlated with chest CT dated 05/11/2021. The heart is mildly enlarged noting atherosclerotic calcification of the thoracic aorta. The pulmonary vasculature is noncongested. Enlargement of the central pulmonary arteries suggests pulmonary hypertension. Calcified right hilar nodes are again noted. Advanced emphysema and chronic interstitial thickening is similar to previous. There are scattered calcified granulomas. Foci of parenchymal scarring are seen throughout both lungs. Airspace consolidation is seen at both lung bases. No large pleural effusion or pneumothorax is seen. The skeletal structures are osteopenic. The bony thorax is grossly intact. IMPRESSION: 1. Airspace consolidation is seen at both lung bases. Correlate clinically for evidence of pneumonia/aspiration pneumonitis. Radiographic follow-up to resolution is recommended. 2. Cardiomegaly and advanced emphysema. ACT 112: Negative or not required by law. Electronically signed by: Luciano Prieto M.D. 06/11/2022 7:30 PM Chest CTA 06/11/22 18:59 CT ANGIOGRAM OF THE CHEST CLINICAL HISTORY: Atypical chest pain. COMPARISON STUDY: Chest x-ray dated 06/11/2022. Prior chest CT scans, most recently dated 05/11/2021. TECHNIQUE: Following the IV administration of 112 cc of Optiray 320, CT angiogram of the chest was performed from the upper abdomen to the thoracic inlet utilizing the pulmonary embolus protocol. Images are reviewed in the axial, sagittal, and coronal planes. 3-D MIPS images are created and assessed. IV contrast was administered without complication. A dose lowering technique was utilized adhering to the principles of ALARA. CT DOSE: 347.17 mGy.cm FINDINGS: Thyroid: Imaged portions of the thyroid gland are normal in size and attenuation. Thoracic aorta: There is mild atherosclerotic calcification of the thoracic aorta, which is normal in caliber and demonstrates bovine variant arch anatomy. No dissection is seen. Pulmonary vasculature: The pulmonary trunk is dilated, measuring 4.1 cm in diameter. This suggests pulmonary artery hypertension. There are no filling defects identified in main, lobar, or segmental pulmonary branches to suggest pulmonary embolus. Heart: The heart is mildly enlarged and without pericardial effusion. There are scattered coronary artery calcifications. Lungs and pleural spaces: Advanced emphysematous change is again noted. Patchy airspace consolidation is seen in the right upper lobe. The trachea and central airways appear clear. Frontal scarring is seen throughout both lungs. There are scattered calcified granulomas. Diffuse peribronchial thickening is observed. A 5 mm left upper lobe pulmonary nodule is seen on image #[id number]. This has been present dating back to 2010 and is of low suspicion. No pleural effusion is identified. Mediastinum: There is no mediastinal lymphadenopathy. Arabella: There are calcified right hilar nodes. No hilar adenopathy is seen. Axillae: There is no axillary lymphadenopathy. Upper abdomen: There are calcified splenic granulomas. Imaged portions of the liver show mild cirrhotic change Skeletal structures: The skeletal structures are osteopenic. There is a mild chronic superior endplate compression deformity of T3. Mild spondylotic change is seen throughout the thoracic spine. There are healed left-sided rib fractures. No lytic or blastic bony lesions are seen. IMPRESSION: 1. There is no evidence of pulmonary embolus in the main, lobar, or segmental pulmonary arteries. 2. Mild cardiomegaly and advanced emphysema with evidence of pulmonary artery hypertension. 3. Airspace consolidation in the right upper lobe is typical for pneumonia/aspiration pneumonitis. Clinical correlation will be required and radiographic follow-up to resolution is recommended. 4. Diffuse peribronchial thickening suggests bronchitis/reactive airway disease. Clinical correlation will be required. 5. Additional findings as above. ACT 112: Negative or not required by law. Electronically signed by: Luciano Prieto M.D. 06/11/2022 9:05 PM Discharge Plan Visit Data Chief Complaint: Shortness of Breath/Dyspnea Stated Complaint: SOB/CHEST PAIN/COUGH WITH FLUID ED Provider: Hiram Main Discharge Problem: Acute on chronic respiratory failure with hypoxia, End stage COPD, Pneumonia Patient Disposition: Admitted As Inpatient Discharge Instructions Interventions: ED Discharge Assessment Last Done: 06/11/22 23:30
[2022-06-11] MEDS ORDERED: POLYETHYLENE (MIRALAX) 17 GM PACK PO PRN (23:37)
[2022-06-11] MEDS ORDERED: MAGNESIUM HYDROXIDE SUSP 30 ML UDC PO PRN (23:37)
[2022-06-11] MEDS ORDERED: ALUMINUM/MAGNESIUM SUSP 30 ML UDC PO PRN (23:37)
[2022-06-11] MEDS ORDERED: ACETAMINOPHEN 325 MG TAB PO PRN (23:37)
[2022-06-11] MEDS ORDERED: ONDANSETRON INJ 2 MG/ML 2 ML VIAL IV PRN (23:37)
--- NOTE | 2022-06-11 23:57 | History & Physical Report ---
Date of Service June 11, 2022 Assessment & Plan (1) COPD exacerbation: Plan COPD exacerbation: Patient does have end-stage COPD, was referred to [facility] care by his pulm in the past, pt has not visited [facility] per him. Pneumonia Acute on chronic hypoxic respiratory failure Sepsis POA: Respiratory rate and WBC elevated at presentation Patient presents with increasing cough with yellowish sputum, at presentation patient needed oxygen up to 15 L via nonrebreather and multiple DuoNeb treatments before coming back down to 6 L which is his baseline. Admitting CXR and CTA chest reviewed. Viral panel negative. Troponin WNL. Follow-up admitting blood culture and sputum culture Patient started on cefepime in the ED, will continue cefepime and add doxycycline. Pulmonology consult. Duo nebs, hypertonic saline nebulization, acetylcysteine nebulization, home inhalers, Solu-Medrol 3 times daily, telemetry monitoring. Other chronic medical conditions: Resume home meds as appropriate. Heparin subcu Full code History of Present Illness Chief Complaint: Increasing cough with yellowish sputum Primary Care Provider: Valencia Patel PA-C 71-year-old male who has significant past medical history of severe COPD on chronic 6 L of oxygen, cirrhosis, HTN, PTSD, depression with anxiety, history of tobacco abuse, anemiapresented to the ED 1/2 with complaint of increasing cough with congestion and productive of yellow sputum and associated with right chest pain upon deep breathing. Patient reports not having Mucinex in the last 1 weeks because of delivery issues. Patient reports all the symptoms are going on for 1 week. Patient was seen by his batting machine operator in last April and was referred to palliative care, patient has not visited palliative care per him because he does not want to and he would like everything to be done to save him. "Wouldn't want to go that route. " Patient denies fever or sore throat or palpitation or belly pain. Patient reports good appetite. Patient denies any pain or burning with passing urine and reports normal bowel movement. Patient reports feeling weak. Patient smoked tobacco for 42 years, quit 6 years ago, denies alcohol and recreational drug use. Full code upon my discussion with the patient. 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 Patient reports father dying of kidney cancer and mother dying of colon cancer. Medications were reviewed with the patient. Plan of care was discussed with the patient at bedside. Allergies Allergy/AdvReac Type Severity Reaction Status Date / Time bee venom protein (honey bee) Allergy Severe ANAPHYLAXIS Verified 06/11/22 23:05 amoxicillin Allergy Intermediate FACIAL Verified 06/11/22 23:05 SWELLING (EYES SWELLED SHUT) clavulanic acid Allergy Intermediate FACIAL Verified 06/11/22 23:05 SWELLING (EYES SWELLED SHUT) pneumococcal vaccine Allergy Intermediate SWELLING Verified 06/11/22 23:05 Adwgign-GCR-BbO Reductase Allergy Intermediate CPK'S GO Verified 06/11/22 23:05 Inhibitor THROUGH [Aefabjj-Vva-Uiy Reductase ROOF Inhibitor] prednisone AdvReac Intermediate confusion Verified 06/11/22 23:05 and agitation Home Medications Medication Instructions Recorded Confirmed Type omeprazole 20 mg capsule,delayed 20 mg PO BID 04/08/18 06/11/22 History release sertraline 100 mg tablet 200 mg PO HS 04/08/18 06/11/22 History trazodone 150 mg tablet 150 mg PO HS 04/08/18 06/11/22 History albuterol sulfate 90 mcg/actuation 2 puff inhalation Q6H PRN 07/04/18 06/11/22 History aerosol inhaler Shortness Of Breath Or Wheezing epinephrine 0.3 mg/0.3 mL 0.3 mg IM DIRECTED PRN Allergic 08/22/18 06/11/22 History injection, auto-injector (EpiPen) Reaction cholecalciferol (vitamin D3) 25 2,000 unit PO QAM 08/19/19 06/11/22 History mcg (1,000 unit) capsule (Vitamin D3) cyanocobalamin (vitamin B-12) 1,000 mcg PO 2XWK 12/19/20 06/11/22 History 1,000 mcg tablet (Vitamin B-12) umeclidinium 62.5 mcg/actuation 1 inh inhalation DAILY 30 days #30 09/26/21 06/11/22 Rx blister powder for inhalation ea (Incruse Ellipta) acetylcysteine 100 mg/mL (10 %) 2 ml inhalation BID #100 mL 10/10/21 06/11/22 Rx solution formoterol fumarate 20 mcg/2 mL 20 mcg (2 mL) NEB BID 30 days #120 12/25/21 06/11/22 Rx solution for nebulization mL (Perforomist) Mucinex 200mg 400 mg PO BID 06/11/22 06/11/22 History ascorbic acid (vitamin C) 1,000 mg 1 g PO DAILY 06/11/22 06/11/22 History tablet (Vitamin C) budesonide 0.25 mg/2 mL suspension 0 mg inhalation BID 06/11/22 06/11/22 History for nebulization buspirone 15 mg tablet 7.5 mg PO HS 06/11/22 06/11/22 History ipratropium 0.5 mg-albuterol 3 mg 3 ml NEB QID PRN Shortness Of 06/11/22 06/11/22 History (2.5 mg base)/3 mL nebulization Breath Or Wheezing soln lactobacillus combination no.4 3 0 mmu cells PO DAILY 06/11/22 06/11/22 History billion cell capsule (Probiotic) lanolin alcohols-mineral 1 applic topical DAILY PRN Dry Skin 06/11/22 06/11/22 History oil-w.petrolatum-ceresin topical cream (Eucerin topical cream) potassium chloride 20 mEq 10 meq PO DAILY 06/11/22 06/11/22 History tablet,extended release Past Med/Surg History Medical History (Updated 04/27/22 @ 14:20 by Joshua Abel MD) Anemia Chronic dyspnea COPD (chronic obstructive pulmonary disease) with emphysema COPD exacerbation Depression End stage COPD GERD (gastroesophageal reflux disease) Hearing deficit BL BRUNO 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 Graham exposure History of COVID-19 05/2020 - hospitalized at [facility] - sob, cough, generalized weakness --> pneumonia; still requiring more supplemental oxygen since having Covid (currently on 6 lpm cont home o2, prior to covid was only on 4 lpm) History of kidney stones History of tobacco abuse HTN (hypertension) On home O2 cont @ 6 lpm Osteoarthritis Palliative care encounter PTSD (post-traumatic stress disorder) Pulmonary nodules Thrombocytopenia Surgical History Dilatation of ureter H/O hernia repair History of appendectomy History of cardiac cath x 2 - most recent [place] 2010 - no stents; also [place] [facility] [place] no st[place] History of colonoscopy History of extraction of renal calculus History of tonsillectomy Loss of teeth due to extraction S/P arthroscopic surgery of right knee Family History Mother Colon cancer Father FH: kidney cancer Other Cancer Social History Smoking Status: Former smoker Tobacco Type: Cigarettes Cigarettes Per Day: 40 pack year hx; Second Hand Exposure: No; Hx Alcohol Use: No Hx Substance Use: No Preferred Language: Northern Irish Communication Ability: Effective Manager Paid Required: No Beliefs That Will Affect Care: None marital status: Current Living Situation: Spouse Current Living Situation Comment: lives with spouse 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 Physical Exam Physical Exam: GENERAL: Alert and oriented x3. NAD, on 6L, Appears chronically ill/weak. HEENT: No pallor, no icterus. Pupils equal, round and reactive to light. Oral mucosa moist. NECK: No JVD, no neck masses. HEART: S1 and S2 heard. Regular rate and rhythm. No murmur, no gallop. RESPIRATORY SYSTEM: Normal AP diameter. No accessory muscle use. Decreased breath sounds b/l, wheeze + ABDOMEN: Soft, bowel sounds present, nontender, no distention. CENTRAL NERVOUS SYSTEM: No facial droop. Speech is clear. Obeys simple commands. Moves extremities. EXTREMITIES: No edema, no erythema seen. Results & Data Results & Data ([facility]) Vital Signs (Past 12 Hours) Vital Signs Temp Pulse Pulse Resp BP BP Pulse Ox 06/11/22 23:30 88 22 108/57 L 90 06/11/22 21:06 88 22 120/53 L 92 06/11/22 19:30 63 22 94 06/11/22 20:19 89 20 114/50 L 94 06/11/22 19:05 65 20 98 06/11/22 18:29 64 22 137/69 97 06/11/22 18:57 100 06/11/22 18:56 86 L 06/11/22 18:24 36 C L 73 30 H 103/57 L 86 L O2 Del Method O2 Flow Rate 06/11/22 23:30 Nasal Cannula 6 06/11/22 21:06 Nasal Cannula 6 06/11/22 19:30 Nasal Cannula 6 06/11/22 20:19 Nasal Cannula 6 06/11/22 19:05 Room Air 06/11/22 18:29 Non-rebreather 8 06/11/22 18:57 Non-rebreather 15 06/11/22 18:56 Nasal Cannula 6 06/11/22 18:24 Nasal Cannula 6 Code Status & VTE Plan VTE Prophylaxis Plan VTE Prophylaxis will be ordered: Yes
[2022-06-12] MEDS ORDERED: ALBUT/IPRATROP 3MG/0.5MG NEB 3 ML VIAL NEB PRN (00:34)
[2022-06-12] MEDS: BUDESONIDE 0.25 MG/2 ML VIAL (PULMICORT) INH SCH ×3 (01:20→14:53)
[2022-06-12] MEDS: FORMOTEROL 20 MCG/2 ML VIAL NEB SCH ×3 (01:20→17:46)
[2022-06-12] MEDS: ACETYLCYSTEINE 20% INHAL SOLN 4ML ***DISPENSED BY RESP. INH SCH ×2 (01:20→07:30)
[2022-06-12] MEDS ORDERED: busPIRone 7.5 MG TAB PO ONE (01:30)
[2022-06-12] MEDS ORDERED: traZODone HCL 50 MG TAB PO ONE (01:31)
[2022-06-12] MEDS ORDERED: SERTRALINE HCL 100 MG TABLET PO ONE (01:31)
[2022-06-12] MEDS: DOXYCYCLINE HYCLATE 100 MG in DEXTROSE 5% 100 ML IV SCH ×2 (02:03→12:59)
[2022-06-12] MEDS: SODIUM CHLORIDE 0.9% 1000ML 1,000 ML IV SCH ×2 (04:29→11:16)
[2022-06-12] MEDS: methylPREDNISolone 40 MG in SYRINGE 0 ML IV SCH ×3 (04:30→20:14)
[2022-06-12 04:57] LABS: Hematocrit (blood only) 33.2 % (40.1-51.0); Mean Corpuscular Hemoglobin 30.4 pg (25.0-34.0); Mean Corpuscular Hgb Conc 33.1 g/dL (32.0-36.0); Mean Corpuscular Volume 91.7 fL (80.0-100.0); Mean Platelet Volume 10.9 fL (9.4-12.4); Platelet Count 141 K/uL (130-400); RDW Standard Deviation 43.7 fL (36.4-46.3); Red Blood Count 3.62 M/uL (4.63-6.08); White Blood Count 8.92 K/ul (4.8-10.8)
[2022-06-12 05:33] LABS: BUN Creatinine Ratio 12.5 (10-20); Calcium 8.7 mg/dl (8.5-10.1); Creatinine Clr Calc Pharmacy 55.3 ml/min; Est GFR (African American) 59.8 ml/min; Est GFR (Non-African American) 51.6 ml/min; Magnesium 1.9 mg/dl (1.7-2.4); Phosphorus 2.8 mg/dl (2.5-4.9); Potassium 3.7 mmol/L (3.5-5.1)
[2022-06-12] MEDS ORDERED: CARBOHYDRATES FOR HYPOGLYCEMIA PO PRN (05:43)
[2022-06-12] MEDS ORDERED: DEXTROSE 50% 50 ML SYRINGE IV PRN (05:43)
[2022-06-12] MEDS ORDERED: GLUCOSE 40% GEL 15 GM TUBE PO PRN (05:43)
[2022-06-12] MEDS ORDERED: GLUCOSE 10 TAB/TUBE PO PRN (05:43)
[2022-06-12] MEDS ORDERED: GLUCAGON FOR INJ 1 MG VIAL SQ PRN (05:43)
[2022-06-12] MEDS ORDERED: INSULIN ASPART PER UNIT ONE (06:15)
[2022-06-12] MEDS: INSULIN ASPART PER UNIT SC SCH ×5 (06:16→20:23)
[2022-06-12] MEDS: CEFEPIME 2,000 MG in SYRINGE 0 ML IV SCH ×3 (06:32→20:21)
[2022-06-12] MEDS: SODIUM CHLOR 7% 4 ML NEB NEB SCH ×2 (07:23→17:45)
[2022-06-12] MEDS: ALBUT/IPRATROP 3MG/0.5MG NEB 3 ML VIAL NEB SCH ×4 (07:30→18:10)
[2022-06-12] MEDS: ADVANCED PROBIOTIC 1250 MG CAPSULE PO SCH (08:37)
[2022-06-12] MEDS: UMECLIDINIUM BROMIDE 62.5MCG/BLISTER 7 PUFFS/INHALER INH SCH (08:37)
[2022-06-12] MEDS: HEPARIN SOD 5,000 UNIT/0.5 ML VIAL SQ SCH ×2 (08:37→20:16)
[2022-06-12] MEDS: PANTOprazole 40 MG TAB PO SCH ×2 (08:38→20:15)
[2022-06-12] MEDS: guaiFENesin 200 MG TAB PO SCH ×2 (08:38→20:15)
[2022-06-12] MEDS: POTASSIUM CHLORIDE 10 MEQ TABCR PO SCH (08:41)
--- NOTE | 2022-06-12 08:58 | Hospitalist Progress Note ---
Date of Service June 12, 2022 Assessment & Plan (1) Acute on chronic respiratory failure with hypoxia and hypercapnia: (2) Sepsis: (3) Pneumonia: (4) COPD exacerbation: (5) Steroid-induced hyperglycemia: (6) Acute kidney failure: Plan Patient presents with increasing cough with yellowish sputum, at presentation patient needed oxygen up to 15 L via nonrebreather and multiple DuoNeb treatments before coming back down to 6 L which is his baseline. Admitting CXR and CTA chest reviewed. Viral panel negative. Troponin WNL. Follow-up admitting blood culture and sputum culture Cont cefepime and doxycycline pending clinical improvement and culture results for total 7 days. Cont with Brovana and budesonide per pulm. Cont azithromycin MWF and Daliresp at discharge (was not initially known to add to home med list but it is there now). Duo nebs, hypertonic saline nebulization, home inhalers, Solu-Medrol 3 times daily, telemetry monitoring. Cont flutter valve and mucinex. Will give pain medication for his pleurisy. Recent A1C is <6, but steroid induced hyperglycemia is present. Cont insulin at this time including carb coverage. Use only correction factor if he becomes hypoglycemic. Increased creatinine likely related to sepsis picture. We are still resusci tating him with IVF now and lactate will be rechecked as still >2. Will Repeat BMP after IVF resuscitation in am. For underlying mood disorder please continue trazodone, sertraline and BuSpar per home regimen. Heparin for DVT prophylaxis Full code Disposition-to home when improved. Will order PT/OT while admitted. Susana Fry DO [facility] hospitalist Admission and Anticipated Discharge Date Admission Date: June 11, 2022 Subjective 71-year-old man with worsening shortness of breath and a history of combined pulmonary emphysema with fibrosis, chronic respiratory failure on 6 L oxygen depression PTSD and requires BiPAP nightly. Multiple exacerbations of u nderlying COPD with last exacerbation in September 2021. Follows with [facility] pulmonology who is already seen him this admission. Today he says his breathing is about the same as yesterday but his cough is improved. Home medications were updated by pharmacist this morning after admission and include azithromycin Saturday and Daliresp. These will be continued. Pain reported in right upper anterior chest that is sharp in quality. He is tolerating p.o. He is speaking in full complete sentences. He is coughing frequently during this examination. He reports that his appetite has been fine prior to arrival. Review of Systems Review of Systems: All systems were reviewed and negative except as indicated above. Physical Exam Physical Exam: CONSTITUTIONAL: WNWD, vitals as above, generally well- appearing, NAD EYES: normal conjunctivae, no scleral icterus ENT: external ear and nose normal, MMM. xygen supplementation in place. NECK: trachea midline RESPIRATORY: + rales or wheezes throughout, normal respiratory effort CARDIOVASCULAR: regular rate and rhythm, S1 and 2 heard without murmurs, gallops or rubs, no JVD, no peripheral edema CHEST: inspection of chest was normal GASTROINTESTINAL: soft, nontender, ND, no guarding MUSCULOSKELETAL: strength 5/5 throughout, head is normocephalic and atraumatic SKIN: warm and dry NEUROLOGIC: CN 2-12 grossly intact, no sensory deficit, normal cognition, normal speech, no tremor PSYCHIATRIC: alert cooperative and oriented to person, place and time. Results & Data Results & Data ([facility]) Vital Signs (Past 12 Hours) Vital Signs Temp Pulse Pulse Resp BP BP BP 06/12/22 07:32 77 20 06/12/22 07:13 36.5 C 58 L 20 129/71 06/12/22 05:48 80 06/12/22 04:00 36.6 C 87 18 119/65 06/12/22 02:10 06/12/22 00:55 06/12/22 00:55 36.4 C L 88 20 101/56 L 06/11/22 23:30 88 22 108/57 L 06/11/22 21:06 88 22 120/53 L Pulse Ox O2 Del Method O2 Flow Rate 06/12/22 07:32 92 Nasal Cannula 9 06/12/22 07:13 91 High Flow Nasal Cannula 9 06/12/22 05:48 06/12/22 04:00 92 High Flow Nasal Cannula 9 06/12/22 02:10 92 High Flow Nasal Cannula 8 06/12/22 00:55 High Flow Nasal Cannula 6 06/12/22 00:55 91 Nasal Cannula 6 06/11/22 23:30 90 Nasal Cannula 6 06/11/22 21:06 92 Nasal Cannula 6 Laboratory Results Short CBC 06/11/22 06/12/22 Range/Units 18:50 04:29 WBC 13.82 H 8.92 (4.8-10.8) K/ul Hgb 12.9 L 11.0 L (14.0-18.0) g/dl Hct 38.0 L 33.2 L (40.1-51.0) % Plt Count 195 141 (130-400) K/uL BMP 06/11/22 06/12/22 18:50 04:29 Sodium 136 135 L Potassium 3.9 3.7 Chloride 97 L 98 Carbon Dioxide 32 27 BUN 12 17 Creatinine 1.05 1.36 D Glucose 121 H 306 H* Calcium 9.5 8.7 Liver Function 06/11/22 Range/Units 18:50 Total Bilirubin 0.6 (0.2-1.0) mg/dl AST 19 (13-39) U/L ALT 11 (7-52) U/L Alkaline Phosphatase 91 (34-104) U/L Albumin 4.3 (3.4-5.0) gm/dl Diagnostic Findings Chest CTA 06/11/22 18:59 CT ANGIOGRAM OF THE CHEST CLINICAL HISTORY: Atypical chest pain. COMPARISON STUDY: Chest x-ray dated 06/11/2022. Prior chest CT scans, most recently dated 05/11/2021. TECHNIQUE: Following the IV administration of 112 cc of Optiray 320, CT angiogram of the chest was performed from the upper abdomen to the thoracic inlet utilizing the pulmonary embolus protocol. Images are reviewed in the axial, sagittal, and coronal planes. 3-D MIPS images are created and assessed. IV contrast was administered without complication. A dose lowering technique was utilized adhering to the principles of ALARA. CT DOSE: 347.17 mGy.cm FINDINGS: Thyroid: Imaged portions of the thyroid gland are normal in size and attenuation. Thoracic aorta: There is mild atherosclerotic calcification of the thoracic aorta, which is normal in caliber and demonstrates bovine variant arch anatomy. No dissection is seen. Pulmonary vasculature: The pulmonary trunk is dilated, measuring 4.1 cm in diameter. This suggests pulmonary artery hypertension. There are no filling defects identified in main, lobar, or segmental pulmonary branches to suggest pulmonary embolus. Heart: The heart is mildly enlarged and without pericardial effusion. There are scattered coronary artery calcifications. Lungs and pleural spaces: Advanced emphysematous change is again noted. Patchy airspace consolidation is seen in the right upper lobe. The trachea and central airways appear clear. Frontal scarring is seen throughout both lungs. There are scattered calcified granulomas. Diffuse peribronchial thickening is observed. A 5 mm left upper lobe pulmonary nodule is seen on image #[id number]. This has been present dating back to 2010 and is of low suspicion. No pleural effusion is identified. Mediastinum: There is no mediastinal lymphadenopathy. Arabella: There are calcified right hilar nodes. No hilar adenopathy is seen. Axillae: There is no axillary lymphadenopathy. Upper abdomen: There are calcified splenic granulomas. Imaged portions of the liver show mild cirrhotic change Skeletal structures: The skeletal structures are osteopenic. There is a mild chronic superior endplate compression deformity of T3. Mild spondylotic change is seen throughout the thoracic spine. There are healed left-sided rib fractures. No lytic or blastic bony lesions are seen. IMPRESSION: 1. There is no evidence of pulmonary embolus in the main, lobar, or segmental pulmonary arteries. 2. Mild cardiomegaly and advanced emphysema with evidence of pulmonary artery hypertension. 3. Airspace consolidation in the right upper lobe is typical for pneumonia/aspiration pneumonitis. Clinical correlation will be required and radiographic follow-up to resolution is recommended. 4. Diffuse peribronchial thickening suggests bronchitis/reactive airway disease. Clinical correlation will be required. 5. Additional findings as above. ACT 112: Negative or not required by law. Electronically signed by: Luciano Prieto M.D. 06/11/2022 9:05 PM Medications Administered Current Inpatient Medications Acetaminophen (Acetaminophen 325 Mg Tab) 650 mg PO Q4H PRN PRN Reason: Pain or Fever Stop: 07/11/22 23:36 Al Hydrox/Mg Hydrox/Simethicone (Aluminum/Magnesium Susp 30 Ml Udc) 15 ml PO Q4H PRN PRN Reason: Dyspepsia Stop: 07/11/22 23:36 Albuterol (Albut/Ipratrop 3mg/0.5mg Neb 3 Ml Vial) 3 ml NEB QIDR [facility]; Protocol Stop: 07/12/22 06:59 Last Admin: 06/12/22 07:30 Dose: Not Given Budesonide (Budesonide 0.25 Mg/2 Ml Vial (Pulmicort)) 0.25 mg INH BIDR [facility] Stop: 07/12/22 00:33 Last Admin: 06/12/22 07:31 Dose: 0.25 mg Buspirone HCl (Buspirone 7.5 Mg Tab) 7.5 mg PO HS [facility] Stop: 07/12/22 20:59 Dextrose (Dextrose 50% 50 Ml Syringe) 25 - 50 ml IV UD PRN; Protocol PRN Reason: Hypoglycemia Protocol Stop: 07/12/22 05:42 Formoterol Fumarate (Formoterol 20 Mcg/2 Ml Vial) 20 mcg NEB BIDR [facility] Stop: 07/12/22 00:33 Last Admin: 06/12/22 07:30 Dose: 20 mcg Glucagon (Glucagon For Inj 1 Mg Vial) 1 mg SQ UD PRN; Protocol PRN Reason: Hypoglycemia Protocol Stop: 07/12/22 05:42 Glucose (Glucose 40% Gel 15 Gm Tube) 15 - 30 gm PO UD PRN; Protocol PRN Reason: Hypoglycemia Protocol Stop: 07/12/22 05:42 Glucose (Glucose 10 Tab/Tube) 4 - 8 tab PO UD PRN; Protocol PRN Reason: Hypoglycemia Treatment Stop: 07/12/22 05:42 Guaifenesin (Guaifenesin 200 Mg Tab) 400 mg PO BID [facility] Stop: 07/12/22 08:59 Last Admin: 06/12/22 08:38 Dose: 400 mg Heparin Sodium (Porcine) (Heparin Sod 5,000 Unit/0.5 Ml Vial) 5,000 units SQ Q12 [facility] Stop: 07/12/22 08:59 Last Admin: 06/12/22 08:37 Dose: 5,000 units Cefepime HCl 2,000 mg/ Syringe 20 mls @ 5 mls/min IV Q8H [facility]; Protocol Stop: 06/19/22 04:59 Last Admin: 06/12/22 06:32 Dose: 5 mls/min Doxycycline Hyclate 100 mg/ (Dextrose) 110 mls @ 50 mls/hr IV Q12H [facility] Stop: 06/19/22 00:59 Last Infusion: 06/12/22 04:58 Dose: Infused Methylprednisolone 40 mg/ (Syringe) 0.64 mls @ 1.5 mls/min IV Q8H [facility] Stop: 07/12/22 03:59 Last Admin: 06/12/22 04:30 Dose: 1.5 mls/min Sodium Chloride (Nss 1000ml) 1,000 mls @ 125 mls/hr IV .Q8H [facility] Stop: 06/12/22 19:44 Last Admin: 06/12/22 04:29 Dose: 125 mls/hr Insulin Aspart (Insulin Aspart Per Unit) 0 units SC ACHS [facility] Stop: 07/12/22 07:29 Last Admin: 06/12/22 08:44 Dose: 4 units Lactobacillus Acidophilus (Advanced Probiotic 1250 Mg Capsule) 2 cap PO DAILY [facility] Stop: 07/12/22 08:59 Last Admin: 06/12/22 08:37 Dose: 2 cap Magnesium Hydroxide (Magnesium Hydroxide Susp 30 Ml Udc) 30 ml PO Q12H PRN PRN Reason: Constipation Stop: 07/11/22 23:36 Miscellaneous (Carbohydrates For Hypoglycemia ) 15 - 30 gm PO UD PRN PRN Reason: Hypoglycemia Protocol Stop: 07/12/22 05:42 Ondansetron HCl (Ondansetron Inj 2 Mg/Ml 2 Ml Vial) 4 mg IV Q6H PRN PRN Reason: Nausea Stop: 07/11/22 23:36 Pantoprazole Sodium (Pantoprazole 40 Mg Tab) 40 mg PO BID [facility] Stop: 07/12/22 08:59 Last Admin: 06/12/22 08:38 Dose: 40 mg Polyethylene Glycol (Polyethylene (Miralax) 17 Gm Pack) 17 gm PO DAILY PRN PRN Reason: Constipation Stop: 07/11/22 23:36 Potassium Chloride (Potassium Chloride 10 Meq Tabcr) 10 meq PO DAILY [facility] Stop: 07/12/22 08:59 Last Admin: 06/12/22 08:41 Dose: 10 meq Sertraline HCl (Sertraline Hcl 100 Mg Tablet) 200 mg PO HS [facility] Stop: 07/12/22 20:59 Sodium Chloride (Sodium Chlor 7% 4 Ml Neb) 4 ml NEB BIDR [facility] Stop: 07/12/22 06:59 Last Admin: 06/12/22 07:23 Dose: 4 ml Trazodone HCl (Trazodone Hcl 50 Mg Tab) 150 mg PO HS [facility] Stop: 07/12/22 20:59 Umeclidinium [place] (Umeclidinium [place] 62.5mcg/Blister 7 Puffs/Inhaler) 1 puffs INH DAILY [facility] Stop: 07/12/22 08:59 Last Admin: 06/12/22 08:37 Dose: 1 puffs
--- NOTE | 2022-06-12 09:00 | Pulmonary Consultation ---
Date of Consultation June 12, 2022 Assessment & Plan (1) Pneumonia: (2) Acute on chronic respiratory failure with hypoxia and hypercapnia: (3) COPD exacerbation: (4) SOB (shortness of breath): (5) COPD (chronic obstructive pulmonary disease) with emphysema: Plan 2D echo 05-11-21: EF 65-70%, right ventricle systolic function is mildly reduced, grade 1 diastolic dysfunction. Normal right ventricular function CT chest 06/11/2022 personally reviewed: Severe centrilobular and paraseptal emphysema appreciated bilaterally Patchy opacities appreciated in the right upper lobe on the periphery No mediastinal lymphadenopathy --Acute on chronic hypercapnic hypoxic respiratory failure Chronically on 6-8 l oxygen at home Secondary to COPD exacerbation with right upper lobe pneumonia COVID-19 PCR negative Influenza A/B negative RSV negative Currently on formoterol, budesonide and IV Solu-Medrol Keep O2 saturation between 88-92% BiPAP nightly and as needed shortness of breath --COPD Gold D On budesonide Brovana and Incruse at home Supposed to be on Daliresp as well as azithromycin 250 mg Fnnweo-Myzjgqocl-Mhxnnh (does not show up on the AUG) QTC 448 06/11/22 Patient does state that he has been using what ever was prescribed to him --History of COVID-19 pneumonia May 2020 Plan: Continue with Brovana budesonide Continue with antibiotics for total of 7 days Recommend going back to azithromycin 250 mg Saturday on discharge along with Daliresp Mucinex with flutter valve Try to keep O2 saturation between 88-92%. Do not over oxygenate the patient Case was discussed with RT at bedside Please note the above document was generated using voice recognition software. It may contain grammatical, syntax or spelling errors.Any formal questions or concerns about the content, text or information contained within the body of this dictation should be directly addressed to the provider for clarification. History of Present Illness Attending Physician: Susana Fry, History of Present Illness 71-year-old male came to the hospital because of worsening shortness of breath Past medical history: Combined pulmonary emphysema with fibrosis, chronic respiratory failure on 6 L O2, hypertension, depression, PTSD BiPAP nightly Patient has had multiple exacerbations underlying COPD, last exacerbation being 09/19/2021 Patient follows up with Dr. Abel as an outpatient, he was seen last on 04/27/2022. Previous notes personally reviewed Patient says that he is compliant with his inhalers including nebulizers Although azithromycin and Daliresp does not show up on his medication list he says he has been using them Only medication that he was missing was [facility]. He has having bringing up phlegm, does complain of chest congestion. Denies any chest pain. No fever or chills. No headache, no blurry vision No hemoptysis No dysuria or diarrhea Social history: Greater than [id number] smoking history, quit at the age of 66 Allergies Allergy/AdvReac Type Severity Reaction Status Date / Time bee venom protein (honey bee) Allergy Severe ANAPHYLAXIS Verified 06/11/22 23:05 amoxicillin Allergy Intermediate FACIAL Verified 06/11/22 23:05 SWELLING (EYES SWELLED SHUT) clavulanic acid Allergy Intermediate FACIAL Verified 06/11/22 23:05 SWELLING (EYES SWELLED SHUT) pneumococcal vaccine Allergy Intermediate SWELLING Verified 06/11/22 23:05 Jwamwgp-HWQ-TvE Reductase Allergy Intermediate CPK'S GO Verified 06/11/22 23:05 Inhibitor THROUGH [Xgppgka-Kzq-Zra Reductase ROOF Inhibitor] prednisone AdvReac Intermediate confusion Verified 06/11/22 23:05 and agitation Home Medications Medication Instructions Recorded Confirmed Type omeprazole 20 mg capsule,delayed 20 mg PO BID 04/08/18 06/11/22 History release sertraline 100 mg tablet 200 mg PO HS 04/08/18 06/11/22 History trazodone 150 mg tablet 150 mg PO HS 04/08/18 06/11/22 History albuterol sulfate 90 mcg/actuation 2 puff inhalation Q6H PRN 07/04/18 06/11/22 History aerosol inhaler Shortness Of Breath Or Wheezing epinephrine 0.3 mg/0.3 mL 0.3 mg IM DIRECTED PRN Allergic 08/22/18 06/11/22 History injection, auto-injector (EpiPen) Reaction cholecalciferol (vitamin D3) 25 2,000 unit PO QAM 08/19/19 06/11/22 History mcg (1,000 unit) capsule (Vitamin D3) cyanocobalamin (vitamin B-12) 1,000 mcg PO 2XWK 12/19/20 06/11/22 History 1,000 mcg tablet (Vitamin B-12) umeclidinium 62.5 mcg/actuation 1 inh inhalation DAILY 30 days #30 09/26/21 06/11/22 Rx blister powder for inhalation ea (Incruse Ellipta) acetylcysteine 100 mg/mL (10 %) 2 ml inhalation BID #100 mL 10/10/21 06/11/22 Rx solution formoterol fumarate 20 mcg/2 mL 20 mcg (2 mL) NEB BID 30 days #120 12/25/21 06/11/22 Rx solution for nebulization mL (Perforomist) Mucinex 200mg 400 mg PO BID 06/11/22 06/11/22 History ascorbic acid (vitamin C) 1,000 mg 1 g PO DAILY 06/11/22 06/11/22 History tablet (Vitamin C) budesonide 0.25 mg/2 mL suspension 0 mg inhalation BID 06/11/22 06/11/22 History for nebulization buspirone 15 mg tablet 7.5 mg PO HS 06/11/22 06/11/22 History ipratropium 0.5 mg-albuterol 3 mg 3 ml NEB QID PRN Shortness Of 06/11/22 06/11/22 History (2.5 mg base)/3 mL nebulization Breath Or Wheezing soln lactobacillus combination no.4 3 0 mmu cells PO DAILY 06/11/22 06/11/22 History billion cell capsule (Probiotic) lanolin alcohols-mineral 1 applic topical DAILY PRN Dry Skin 06/11/22 06/11/22 History oil-w.petrolatum-ceresin topical cream (Eucerin topical cream) potassium chloride 20 mEq 10 meq PO DAILY 06/11/22 06/11/22 History tablet,extended release azithromycin 250 mg tablet 250 mg PO MOWEFR 06/12/22 06/12/22 History diltiazem HCl 240 mg 240 mg PO DAILY 06/12/22 06/12/22 History capsule,extended release 24 hr (Cardizem CD) roflumilast 500 mcg tablet 500 mcg PO DAILY 06/12/22 06/12/22 History (Daliresp) Patient History Medical History (Updated 06/12/22 @ 13:00 by Susana Fry DO) Anemia Chronic dyspnea COPD (chronic obstructive pulmonary disease) with emphysema COPD exacerbation Depression End stage COPD GERD (gastroesophageal reflux disease) Hearing deficit [place] 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 [place] exposure History of COVID-19 05/2020 - hospitalized at [facility] - sob, cough, generalized weakness --> pneumonia; still requiring more supplemental oxygen since having Covid (currently on 6 lpm cont home o2, prior to covid was only on 4 lpm) History of kidney stones History of tobacco abuse HTN (hypertension) On home O2 cont @ 6 lpm Osteoarthritis Palliative care encounter PTSD (post-traumatic stress disorder) Pulmonary nodules Thrombocytopenia Surgical History Dilatation of ureter H/O hernia repair History of appendectomy History of cardiac cath x 2 - most recent [place] 2010 - no stents; also cath years prior at [facility] and no stents History of colonoscopy History of extraction of renal calculus History of tonsillectomy Loss of teeth due to extraction S/P arthroscopic surgery of right knee Family History Mother Colon cancer Father FH: kidney cancer Other Cancer Social History Smoking Status: Former smoker Tobacco Type: Cigarettes Cigarettes Per Day: 40 pack year hx; Second Hand Exposure: No; Hx Alcohol Use: No Hx Substance Use: No Preferred Language: Ukrainian Communication Ability: Effective Title Insurance Examiner Required: No Beliefs That Will Affect Care: None marital status: Current Living Situation: Spouse Current Living Situation Comment: lives with spouse 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 Other Information That Helps Us Care for You: No Feels Safe at Home: Yes Safety Concerns: Feels Safe At This Time Assistive Devices: Oxygen - Continuous, Stair Lift and Walker Review of Systems Review of Systems: All systems reviewed & are unremarkable except as noted in HPI & below Physical Exam Physical Exam: Constitutional: No acute distress HEENT: EOMI, PERRLA Respiratory system: Decreased air entry bilaterally, no rhonchi, positive crackles bilateral lower lobes, positive expiratory wheeze CVS: S1-S2 positive, no murmurs or gallops Abdomen: Soft, nontender, nondistended, positive bowel sounds x4 Extremities: +2 pulses bilaterally radialis/ dorsalis pedis, no cyanosis, no maddie ma Neuro: Awake alert oriented x3 Psych: Normal mood and affect G/U: No Ponce Skin: no rashes, warm and dry Lymphatic: no cervical or axillary lymphadenopathy Results & Data Results & Data ([facility]) Vital Signs (Past 12 Hours) Vital Signs Temp Pulse Pulse Resp BP BP BP 06/12/22 07:32 77 20 06/12/22 07:13 36.5 C 58 L 20 129/71 06/12/22 05:48 80 06/12/22 04:00 36.6 C 87 18 119/65 06/12/22 02:10 06/12/22 00:55 06/12/22 00:55 36.4 C L 88 20 101/56 L 06/11/22 23:30 88 22 108/57 L 06/11/22 21:06 88 22 120/53 L Pulse Ox O2 Del Method O2 Flow Rate 06/12/22 07:32 92 Nasal Cannula 9 06/12/22 07:13 91 High Flow Nasal Cannula 9 06/12/22 05:48 06/12/22 04:00 92 High Flow Nasal Cannula 9 06/12/22 02:10 92 High Flow Nasal Cannula 8 06/12/22 00:55 High Flow Nasal Cannula 6 06/12/22 00:55 91 Nasal Cannula 6 06/11/22 23:30 90 Nasal Cannula 6 06/11/22 21:06 92 Nasal Cannula 6 Laboratory Results 06/12/22 04:29 06/12/22 04:29 PG Care Time/CCT Total # of Minutes Spent Total Time Spent with Patient: Total time spent is greater than 50% in coordination of care (as documented) at patient's floor/unit and/or counseling patient: Coding Level of Care Code 32469 INT INP/OBS CARE 3/75MIN Diagnoses Pneumonia J18.9 Acute on chronic respiratory failure with hypoxia and hypercapnia J96.21; J96.22 COPD exacerbation J44.1 SOB (shortness of breath) R06.02 COPD (chronic obstructive pulmonary disease) with emphysema J43.9
--- NOTE | 2022-06-12 12:40 | Electrocardiogram Report ---
Test Reason : Blood Pressure : / mmHG Vent. Rate : 066 BPM Atrial Rate : 066 BPM P-R Int : 156 ms QRS Dur : 078 ms QT Int : 428 ms P-R-T Axes : 053 -08 060 degrees QTc Int : 448 ms Normal sinus rhythm Normal ECG When compared with ECG of 18-SEP-2021 13:29, Vent. rate has decreased BY 33 BPM Confirmed by Reinaldo Wan ([id number]) on 06/12/2022 12:39:51 PM Referred By: REFERRED SELF Confirmed By:Reinaldo Wan
[2022-06-12] MEDS ORDERED: ACETAMINOPHEN W/CODEINE #3 1 TAB PO ONE (13:06)
[2022-06-12] MEDS ORDERED: Nursing to Pharmacy Communication SCH (15:30)
[2022-06-12] MEDS: busPIRone 7.5 MG TAB PO SCH (20:14)
[2022-06-12] MEDS: ACETAMINOPHEN W/CODEINE #3 1 TAB PO PRN (20:14)
[2022-06-12] MEDS: SERTRALINE HCL 100 MG TABLET PO SCH (20:15)
[2022-06-12] MEDS: traZODone HCL 50 MG TAB PO SCH (20:16)
[2022-06-13] MEDS: DOXYCYCLINE HYCLATE 100 MG in DEXTROSE 5% 100 ML IV SCH ×2 (01:03→11:46)
[2022-06-13] MEDS: methylPREDNISolone 40 MG in SYRINGE 0 ML IV SCH ×4 (05:03→20:41)
[2022-06-13] MEDS: CEFEPIME 2,000 MG in SYRINGE 0 ML IV SCH ×2 (05:04→16:55)
[2022-06-13] MEDS: BUDESONIDE 0.25 MG/2 ML VIAL (PULMICORT) INH SCH ×2 (07:30→19:47)
[2022-06-13] MEDS: FORMOTEROL 20 MCG/2 ML VIAL NEB SCH ×2 (07:30→19:48)
[2022-06-13] MEDS: ALBUT/IPRATROP 3MG/0.5MG NEB 3 ML VIAL NEB SCH ×4 (07:31→20:05)
[2022-06-13] MEDS: SODIUM CHLOR 7% 4 ML NEB NEB SCH ×2 (07:31→20:05)
[2022-06-13] MEDS: INSULIN ASPART PER UNIT SC SCH ×4 (08:53→20:55)
[2022-06-13] MEDS: guaiFENesin 200 MG TAB PO SCH ×2 (08:54→20:43)
[2022-06-13] MEDS: dilTIAZem HCL 240 MG CAPCR PO SCH (08:54)
[2022-06-13] MEDS: ACETAMINOPHEN W/CODEINE #3 1 TAB PO PRN ×2 (08:54→20:55)
[2022-06-13] MEDS: ADVANCED PROBIOTIC 1250 MG CAPSULE PO SCH (08:54)
[2022-06-13] MEDS: ASCORBIC ACID 500 MG TAB PO SCH (08:54)
[2022-06-13] MEDS: POTASSIUM CHLORIDE 10 MEQ TABCR PO SCH (08:54)
[2022-06-13] MEDS: PANTOprazole 40 MG TAB PO SCH ×2 (08:55→20:43)
[2022-06-13] MEDS: HEPARIN SOD 5,000 UNIT/0.5 ML VIAL SQ SCH ×2 (08:55→20:42)
[2022-06-13] MEDS: CHOLECALCIFEROL 1,000 UNITS 25 MCG TAB PO SCH (08:55)
[2022-06-13] MEDS: UMECLIDINIUM BROMIDE 62.5MCG/BLISTER 7 PUFFS/INHALER INH SCH (08:55)
--- NOTE | 2022-06-13 09:58 | Pulmonology Progress Note ---
Date of Service June 13, 2022 Assessment & Plan (1) Pneumonia: (2) Acute on chronic respiratory failure with hypoxia and hypercapnia: (3) COPD exacerbation: (4) SOB (shortness of breath): (5) COPD (chronic obstructive pulmonary disease) with emphysema: Plan 2D echo 05-11-21: EF 65-70%, right ventricle systolic function is mildly reduced, grade 1 diastolic dysfunction. Normal right ventricular function CT chest 06/11/2022 personally reviewed: Severe centrilobular and paraseptal emphysema appreciated bilaterally Patchy opacities appreciated in the right upper lobe on the periphery No mediastinal lymphadenopathy --Acute on chronic hypercapnic hypoxic respiratory failure Chronically on 6-8 l oxygen at home Secondary to COPD exacerbation with right upper lobe pneumonia COVID-19 PCR negative Influenza A/B negative RSV negative Currently on formoterol, budesonide and IV Solu-Medrol Keep O2 saturation between 88-92% BiPAP nightly and as needed shortness of breath --COPD Gold D On budesonide Brovana and Incruse at home Supposed to be on Daliresp as well as azithromycin 250 mg Hjgycy-Vswacnuie-Udyuip (does not show up on the AUG) QTC 448 06/11/22 Patient does state that he has been using what ever was prescribed to him --History of COVID-19 pneumonia May 2020 Plan: Did Solu-Medrol to 40 mg every 12 Continue with Brovana budesonide Continue with antibiotics for total of 7 days Patient has been complaining of pain when she eats coughing. If it is significant coughing that Mucinex DM could be considered instead of plain Mucinex Recommend going back to azithromycin 250 mg Saturday on discharge along with Daliresp Try to keep O2 saturation between 88-92%. Do not over oxygenate the patient Case was discussed with RN and Dr Sandoval Please note the above document was generated using voice recognition software. It may contain grammatical, syntax or spelling errors.Any formal questions or concerns about the content, text or information contained within the body of this dictation should be directly addressed to the provider for clarification. Admission and Anticipated Discharge Date Admission Date: June 11, 2022 Subjective Patient seen and examined at bedside. No acute distress, no adverse events overnight He was saturating 96-97% on 6 L. I went down to 4 L Overall he says he is feeling better. Has been coughing up clear phlegm. Denies any hemoptysis. No nausea vomiting Does complain of pain in the chest when he coughs. No headache Review of Systems Review of Systems: All systems reviewed & are unremarkable except as noted in Subjective Physical Exam Physical Exam: Constitutional: No acute distress HEENT: EOMI, PERRLA Respiratory system: Decreased air entry bilaterally, no rhonchi, positive crackles bilateral lower lobes, Mild expiratory wheeze (improved from before) CVS: S1-S2 positive, no murmurs or gallops Abdomen: Soft, nontender, nondistended, positive bowel sounds x4 Extremities: +2 pulses bilaterally radialis/ dorsalis pedis, no cyanosis, no edema Neuro: Awake alert oriented x3 Psych: Normal mood and affect G/U: No Ponce Skin: no rashes, warm and dry Lymphatic: no cervical or axillary lymphadenopathy Results & Data Results & [facility] ([facility]) Vital Signs (Past 12 Hours) Vital Signs Temp Pulse Pulse Resp BP Pulse Ox O2 Del Method 06/13/22 08:00 High Flow Nasal Cannula 06/13/22 08:00 36.8 C 89 28 H 108/63 90 High Flow Nasal Cannula 06/13/22 07:31 18 93 06/13/22 02:58 36.4 C L 58 L 18 150/79 H 93 Nasal Cannula 06/13/22 00:18 89 06/13/22 00:03 High Flow Nasal Cannula 06/12/22 23:02 36.8 C 90 18 146/71 H 95 Nasal Cannula O2 Flow Rate 06/13/22 08:00 6 06/13/22 08:00 6 06/13/22 07:31 6 06/13/22 02:58 06/13/22 00:18 06/13/22 00:03 6 06/12/22 23:02 Laboratory Results 06/12/22 04:29 06/12/22 04:29 PG Care Time/CCT Total # of Minutes Spent Total Time Spent with Patient: Total time spent is greater than 50% in coordination of care (as documented) at patient's floor/unit and/or counseling patient: Coding Level of Care Code 46608 SUB INP/OBS CARE 2/35MIN Diagnoses Pneumonia J18.9 Acute on chronic respiratory failure with hypoxia and hypercapnia J96.21; J96.22 COPD exacerbation J44.1 SOB (shortness of breath) R06.02 COPD (chronic obstructive pulmonary disease) with emphysema J43.9
--- NOTE | 2022-06-13 10:04 | XRay Report ---
XR chest 1V portable CLINICAL HISTORY: pneumonia, ongoing hypoxia COMPARISON STUDY: Radiograph and chest CT June 11, 2022. FINDINGS: Severe emphysema. Elevation of the right hemidiaphragm is unchanged. No pneumothorax or ple ural effusion is present. There is no evidence for pulmonary edema. Cardiomediastinal silhouette is s table. Right midlung airspace opacity similar to prior chest CT and chest radiograph. There is no con solidation within the left lung. IMPRESSION: 1. No change in right midlung airspace opacity. This favors pneumonia. Radiographic follow-up is anushka mmended to ensure resolution. 2. Severe emphysema. ACT 112: Negative or not required by law. Electronically signed by: Mode Solis M.D. 06/13/2022 10:03 AM
--- NOTE | 2022-06-13 15:54 | Hospitalist Progress Note ---
Date of Service June 13, 2022 Assessment & Plan (1) Acute on chronic respiratory failure with hypoxia and hypercapnia: (2) Sepsis: (3) Pneumonia: (4) COPD exacerbation: (5) Steroid-induced hyperglycemia: (6) Acute kidney failure: Plan Patient presents with increasing cough with yellowish sputum, at presentation patient needed oxygen up to 15 L via nonrebreather and multiple DuoNeb treatments before coming back down to 6 L which is his baseline. Admitting CXR and CTA chest reviewed. Viral panel negative. Troponin WNL. Follow-up admitting blood culture and sputum culture-negative so far Cont cefepime and doxycycline pending clinical improvement and culture results for total 7 days. Cont with Brovana and budesonide per pulm. Cont azithromycin MWF and Daliresp at discharge (was not initially known to add to home med list but it is there now). Duo nebs, hypertonic saline nebulization, home inhalers, Solu-Medrol 3 times daily, telemetry monitoring. Cont flutter valve and mucinex. Solu-Medrol has been decreased to 40 mg twice daily Will need to be discharged on Medrol Dosepak Will give pain medication for his pleurisy. Recent A1C is <6, but steroid induced hyperglycemia is present. Cont insulin at this time including carb coverage. Use only correction factor if he becomes hypoglycemic. Blood sugar remains stable at 108 06/13/22 Increased creatinine likely related to sepsis picture. We are still resuscitating him with IVF now and lactate will be rechecked as still >2. Will Repeat BMP after IVF resuscitation in am. Creatinine has been normalized For underlying mood disorder please continue trazodone, sertraline and BuSpar per home regimen. Heparin for DVT prophylaxis Full code Disposition-to home when improved. Will order PT/OT while admitted. Admission and Anticipated Discharge Date Admission Date: June 11, 2022 Subjective 06/13/2022 The patient was seen and examined in telemetry unit in presence of the son He has been feeling much better Minimal cough and no shortness of breath at rest No fever and no chills Awaiting physical therapy prior to discharge tomorrow maybe Review of Systems Review of Systems: All systems reviewed and are unremarkable except as noted below Physical Exam Physical Exam: Lying in bed comfortably Constitutional: well developed, well nourished, + ill appearing and + obese Eyes: PERRL, conjunctivae normal, anicteric sclerae ENMT: external ear and nose normal, oropharynx normal Neck: trachea midline, no thyromegaly Respiratory: no respiratory distress Auscultation: + diminished lung sounds and + crackles (Bibasilar crackles) Cardiovascular: Rate/Rhythm: regular rate and regular rhythm; not tachycardic Heart Sounds: normal S1 and normal S2; no murmur Extremities: no edema Gastrointestinal (Abdomen): Inspection/Auscultation: normal bowel sounds; abdomen not distended Percussion/Palpation: abdomen soft; abdomen nontender Musculoskeletal: No acute arthritis in any joint Neurologic: normal touch/pain/proprioception and moves all extremities; no focal motor deficits Lymphatic: no cervical or axillary lymphadenopathy Results & Data Results & Data ([facility]) Vital Signs (Past 12 Hours) Vital Signs Temp Pulse Resp BP Pulse Ox Pulse Ox Pulse Ox 06/13/22 15:36 36.8 C 88 24 128/72 92 06/13/22 14:15 90 18 89 L 06/13/22 12:49 90 91 06/13/22 12:05 36.4 C L 85 19 136/73 93 06/13/22 11:15 86 18 88 L 06/13/22 08:00 06/13/22 08:00 36.8 C 89 28 H 108/63 90 06/13/22 07:31 18 93 Pulse Ox Pulse Ox O2 Del Method O2 Flow Rate O2 Flow Rate O2 Flow Rate O2 Flow Rate 06/13/22 15:36 High Flow Nasal Cannula 6 06/13/22 14:15 Nasal Cannula 6 06/13/22 12:49 93 68 L 8 6 6 06/13/22 12:05 Nasal Cannula 6 06/13/22 11:15 Nasal Cannula 6 06/13/22 08:00 High Flow Nasal Cannula 6 06/13/22 08:00 High Flow Nasal Cannula 6 06/13/22 07:31 6 O2 Flow Rate 06/13/22 15:36 06/13/22 14:15 06/13/22 12:49 6 06/13/22 12:05 06/13/22 11:15 06/13/22 08:00 06/13/22 08:00 06/13/22 07:31 Medications Administered Current Inpatient Medications Acetaminophen (Acetaminophen 325 Mg Tab) 650 mg PO Q4H PRN PRN Reason: Pain or Fever Stop: 02/01/23 23:36 Acetaminophen/Codeine Phosphate (Acetaminophen W/Codeine #3 1 Tab) 1 tab PO Q6H PRN PRN Reason: severe pain (7-10) Stop: 07/12/22 19:11 Last Admin: 06/13/22 08:54 Dose: 1 tab Al Hydrox/Mg Hydrox/Simethicone (Aluminum/Magnesium Susp 30 Ml Udc) 15 ml PO Q4H PRN PRN Reason: Dyspepsia Stop: 07/11/22 23:36 Albuterol (Albut/Ipratrop 3mg/0.5mg Neb 3 Ml Vial) 3 ml NEB QIDR [place]; Protocol Stop: 07/12/22 06:59 Last Admin: 06/13/22 14:15 Dose: 3 ml Ascorbic Acid (Ascorbic Acid 500 Mg Tab) 1,000 mg PO DAILY [facility] Stop: 07/13/22 08:59 Last Admin: 06/13/22 08:54 Dose: 1,000 mg Budesonide (Budesonide 0.25 Mg/2 Ml Vial (Pulmicort)) 0.25 mg INH BIDR [facility] Stop: 07/12/22 00:33 Last Admin: 06/13/22 07:30 Dose: 0.25 mg Buspirone HCl (Buspirone 7.5 Mg Tab) 7.5 mg PO HS [facility] Stop: 07/12/22 20:59 Last Admin: 06/12/22 20:14 Dose: 7.5 mg Dextrose (Dextrose 50% 50 Ml Syringe) 25 - 50 ml IV UD PRN; Protocol PRN Reason: Hypoglycemia Protocol Stop: 07/12/22 05:42 Diltiazem HCl (Diltiazem Hcl 240 Mg Capcr) 240 mg PO DAILY [facility] Stop: 07/13/22 08:59 Last Admin: 06/13/22 08:54 Dose: 240 mg Formoterol Fumarate (Formoterol 20 Mcg/2 Ml Vial) 20 mcg NEB BIDR [facility] Stop: 07/12/22 00:33 Last Admin: 06/13/22 07:30 Dose: 20 mcg Glucagon (Glucagon For Inj 1 Mg Vial) 1 mg SQ UD PRN; Protocol PRN Reason: Hypoglycemia Protocol Stop: 07/12/22 05:42 Glucose (Glucose 40% Gel 15 Gm Tube) 15 - 30 gm PO UD PRN; Protocol PRN Reason: Hypoglycemia Protocol Stop: 07/12/22 05:42 Glucose (Glucose 10 Tab/Tube) 4 - 8 tab PO UD PRN; Protocol PRN Reason: Hypoglycemia Treatment Stop: 07/12/22 05:42 Guaifenesin (Guaifenesin 200 Mg Tab) 400 mg PO BID [place] Stop: 07/12/22 08:59 Last Admin: 06/13/22 08:54 Dose: 400 mg Heparin Sodium (Porcine) (Heparin Sod 5,000 Unit/0.5 Ml Vial) 5,000 units SQ Q12 [facility] Stop: 07/12/22 08:59 Last Admin: 06/13/22 08:55 Dose: 5,000 units Doxycycline Hyclate 100 mg/ (Dextrose) 110 mls @ 50 mls/hr IV Q12H [facility] Stop: 06/19/22 00:59 Last Infusion: 06/13/22 14:02 Dose: Infused Cefepime HCl 2,000 mg/ Syringe 20 mls @ 5 mls/min IV Q12H [facility]; Protocol Stop: 06/19/22 04:59 Methylprednisolone 40 mg/ (Syringe) 0.64 mls @ 1.5 mls/min IV Q12 [facility] Stop: 07/13/22 20:59 Insulin Aspart (Insulin Aspart Per Unit) 0 units SC ACHS [place] Stop: 07/12/22 07:29 Last Admin: 06/13/22 13:09 Dose: 11 units Lactobacillus Acidophilus (Advanced Probiotic 1250 Mg Capsule) 2 cap PO DAILY [facility] Stop: 07/12/22 08:59 Last Admin: 06/13/22 08:54 Dose: 2 cap Magnesium Hydroxide (Magnesium Hydroxide Susp 30 Ml Udc) 30 ml PO Q12H PRN PRN Reason: Constipation Stop: 07/11/22 23:36 Miscellaneous (Carbohydrates For Hypoglycemia ) 15 - 30 gm PO UD PRN PRN Reason: Hypoglycemia Protocol Stop: 07/12/22 05:42 Ondansetron HCl (Ondansetron Inj 2 Mg/Ml 2 Ml Vial) 4 mg IV Q6H PRN PRN Reason: Nausea Stop: 07/11/22 23:36 Pantoprazole Sodium (Pantoprazole 40 Mg Tab) 40 mg PO BID [place] Stop: 07/12/22 08:59 Last Admin: 06/13/22 08:55 Dose: 40 mg Polyethylene Glycol (Polyethylene (Miralax) 17 Gm Pack) 17 gm PO DAILY PRN PRN Reason: Constipation Stop: 07/11/22 23:36 Potassium Chloride (Potassium Chloride 10 Meq Tabcr) 10 meq PO DAILY [facility] Stop: 07/12/22 08:59 Last Admin: 06/13/22 08:54 Dose: 10 meq Sertraline HCl (Sertraline Hcl 100 Mg Tablet) 200 mg PO [facility] Stop: 07/12/22 20:59 Last Admin: 06/12/22 20:15 Dose: 200 mg Sodium Chloride (Sodium Chlor 7% 4 Ml Neb) 4 ml NEB BIDR [facility] Stop: 07/12/22 06:59 Last Admin: 06/13/22 07:31 Dose: 4 ml Trazodone HCl (Trazodone Hcl 50 Mg Tab) 150 mg PO [facility] Stop: 07/12/22 20:59 Last Admin: 06/12/22 20:16 Dose: 150 mg Umeclidinium [place] (Umeclidinium [place] 62.5mcg/Blister 7 Puffs/Inhaler) 1 puffs INH DAILY [facility] Stop: 07/12/22 08:59 Last Admin: 06/13/22 08:55 Dose: 1 puffs Vitamin D (Cholecalciferol 1,000 Units 25 Mcg Tab) 2,000 units PO QAM [facility] Stop: 07/13/22 08:59 Last Admin: 06/13/22 08:55 Dose: 2,000 units
[2022-06-13] MEDS: SERTRALINE HCL 100 MG TABLET PO SCH (20:43)
[2022-06-13] MEDS: busPIRone 7.5 MG TAB PO SCH (20:43)
[2022-06-13] MEDS: traZODone HCL 50 MG TAB PO SCH (20:43)
[2022-06-14] MEDS: DOXYCYCLINE HYCLATE 100 MG in DEXTROSE 5% 100 ML IV SCH ×2 (01:14→13:35)
[2022-06-14] MEDS: CEFEPIME 2,000 MG in SYRINGE 0 ML IV SCH ×2 (05:54→18:05)
[2022-06-14 06:24] LABS: Hematocrit (blood only) 33.6 % (40.1-51.0); Hemoglobin 11.1 g/dl (14.0-18.0); Mean Corpuscular Hemoglobin 30.3 pg (25.0-34.0); Mean Corpuscular Volume 91.8 fL (80.0-100.0); Mean Platelet Volume 10.8 fL (9.4-12.4); Platelet Count 135 K/uL (130-400); RDW Coefficient of Variation 13.2 % (11.5-14.5); RDW Standard Deviation 44.4 fL (36.4-46.3); Red Blood Count 3.66 M/uL (4.63-6.08); White Blood Count 16.32 K/ul (4.8-10.8)
[2022-06-14 06:47] LABS: Basophils # (auto) 0.02 K/uL (0-0.2); Basophils % (auto) 0.1 %; Immature Granulocytes # (auto) 0.16 K/uL (0.00-0.02); Lymphocytes # (auto) 0.63 K/uL (1.2-3.4); Lymphocytes % (auto) 3.9 %; Monocytes # (auto) 0.52 K/uL (0.24-0.82); Monocytes % (auto) 3.2 %; Neutrophils # (auto) 14.99 K/uL (1.4-6.5); Neutrophils % (auto) 91.8 %; RBC Morphology Unremarkable
[2022-06-14 06:57] LABS: BUN Creatinine Ratio 22.5 (10-20); Calcium 9.1 mg/dl (8.5-10.1); Creatinine Clr Calc Pharmacy 57.5 ml/min; Est GFR (African American) 69.6 ml/min; Est GFR (Non-African American) 60.1 ml/min
[2022-06-14] MEDS: BUDESONIDE 0.25 MG/2 ML VIAL (PULMICORT) INH SCH ×2 (07:34→19:39)
[2022-06-14] MEDS: FORMOTEROL 20 MCG/2 ML VIAL NEB SCH ×2 (07:34→19:39)
[2022-06-14] MEDS: SODIUM CHLOR 7% 4 ML NEB NEB SCH ×2 (07:34→19:40)
[2022-06-14] MEDS: ALBUT/IPRATROP 3MG/0.5MG NEB 3 ML VIAL NEB SCH ×4 (07:39→19:39)
[2022-06-14] MEDS: ADVANCED PROBIOTIC 1250 MG CAPSULE PO SCH (08:56)
[2022-06-14] MEDS: ASCORBIC ACID 500 MG TAB PO SCH (08:56)
[2022-06-14] MEDS: PANTOprazole 40 MG TAB PO SCH ×2 (08:57→21:30)
[2022-06-14] MEDS: POTASSIUM CHLORIDE 10 MEQ TABCR PO SCH (08:57)
[2022-06-14] MEDS: guaiFENesin 200 MG TAB PO SCH ×2 (08:57→21:30)
[2022-06-14] MEDS: dilTIAZem HCL 240 MG CAPCR PO SCH (08:58)
[2022-06-14] MEDS: UMECLIDINIUM BROMIDE 62.5MCG/BLISTER 7 PUFFS/INHALER INH SCH (08:59)
[2022-06-14] MEDS: INSULIN ASPART PER UNIT SC SCH ×4 (09:41→21:04)
[2022-06-14] MEDS: methylPREDNISolone 40 MG in SYRINGE 0 ML IV SCH (09:44)
[2022-06-14] MEDS: CHOLECALCIFEROL 1,000 UNITS 25 MCG TAB PO SCH (09:45)
[2022-06-14] MEDS: HEPARIN SOD 5,000 UNIT/0.5 ML VIAL SQ SCH ×2 (09:46→21:28)
--- NOTE | 2022-06-14 14:30 | Pulmonology Progress Note ---
Date of Service June 14, 2022 Assessment & Plan (1) Pneumonia: (2) Acute on chronic respiratory failure with hypoxia and hypercapnia: (3) COPD exacerbation: (4) SOB (shortness of breath): (5) COPD (chronic obstructive pulmonary disease) with emphysema: Plan 2D echo 05-11-21: EF 65-70%, right ventricle systolic function is mildly reduced, grade 1 diastolic dysfunction. Normal right ventricular function CT chest 06/11/2022 personally reviewed: Severe centrilobular and paraseptal emphysema appreciated bilaterally Patchy opacities appreciated in the right upper lobe on the periphery No mediastinal lymphadenopathy --Acute on chronic hypercapnic hypoxic respiratory failure Chronically on 6-8 l oxygen at home Secondary to COPD exacerbation with right upper lobe pneumonia COVID-19 PCR negative Influenza A/B negative RSV negative Currently on formoterol, budesonide and IV Solu-Medrol Keep O2 saturation between 88-92% BiPAP nightly and as needed shortness of breath --COPD Gold D On budesonide Brovana and Incruse at home Supposed to be on Daliresp as well as azithromycin 250 mg Meaiel-Ssnkflzow-Mdozte (does not show up on the AUG) QTC 448 06/11/22 Patient does state that he has been using what ever was prescribed to him --History of COVID-19 pneumonia May 2020 Plan: Can transition Solu-Medrol to p.o. prednisone as of tomorrow, 40 mg for 3 days followed by 20 mg for 3 days Continue with Brovana and budesonide Can give cefdinir or cefpodoxime for total of 10 days. Restart azithromycin Sexoif-Psgfezeof-Kumppu after above course of antibiotics is done Try to keep O2 saturation between 88-92%. Do not over oxygenate the patient Case was discussed with Dr Sandoval Please note the above document was generated using voice recognition software. It may contain grammatical, syntax or spelling errors.Any formal questions or concerns about the content, text or information contained within the body of this dictation should be directly addressed to the provider for clarification. Admission and Anticipated Discharge Date Admission Date: June 11, 2022 Subjective Patient seen and examined at bedside. No acute distress, no adverse events overnight. Overall patient says he is feeling much better. His phlegm is loosening up and easier to bring up Denies any chest pain. Shortness of breath is improved No headache, no blurry vision No fever or chills He was saturating 90% on 6 L nasal cannula which is his baseline Review of Systems Review of Systems: All systems reviewed & are unremarkable except as noted in Subjective Physical Exam Physical Exam: Constitutional: No acute distress HEENT: EOMI, PERRLA Respiratory system: Decreased air entry bilaterally, no rhonchi, positive crackles bilateral lower lobes, no wheezing CVS: S1-S2 positive, no murmurs or gallops Abdomen: Soft, nontender, nondistended, positive bowel sounds x4 Extremities: +2 pulses bilaterally radialis/ dorsalis pedis, no cyanosis, no edema Neuro: Awake alert oriented x3 Psych: Normal mood and affect G/U: No Ponce Skin: no rashes, warm and dry Lymphatic: no cervical or axillary lymphadenopathy Results & Data Results & Data ([facility]) Vital Signs (Past 12 Hours) Vital Signs Temp Pulse Pulse Resp BP BP Pulse Ox 06/14/22 11:58 36.5 C 94 H 18 127/73 92 06/14/22 10:34 100 H 20 90 06/14/22 07:56 36.4 C L 65 18 134/84 97 06/14/22 07:45 84 06/14/22 07:38 89 18 95 06/14/22 03:16 36.6 C 62 18 122/74 96 O2 Del Method O2 Flow Rate 06/14/22 11:58 Nasal Cannula 6 06/14/22 10:34 Nasal Cannula 6 06/14/22 07:56 Nasal Cannula 6 06/14/22 07:45 06/14/22 07:38 Nasal Cannula 6 06/14/22 03:16 High Flow Nasal Cannula Laboratory Results 06/14/22 06:15 06/14/22 06:15 PG Care Time/CCT Total # of Minutes Spent Total Time Spent with Patient: Total time spent is greater than 50% in coordination of care (as documented) at patient's floor/unit and/or counseling patient: Coding Level of Care Code 74177 SUB INP/OBS CARE 2/35MIN Diagnoses Pneumonia J18.9 Acute on chronic respiratory failure with hypoxia and hypercapnia J96.21; J96.22 COPD exacerbation J44.1 SOB (shortness of breath) R06.02 COPD (chronic obstructive pulmonary disease) with emphysema J43.9
--- NOTE | 2022-06-14 14:53 | Hospitalist Progress Note ---
Date of Service June 14, 2022 Assessment & Plan (1) Acute on chronic respiratory failure with hypoxia and hypercapnia: (2) Sepsis: (3) Pneumonia: (4) COPD exacerbation: (5) Steroid-induced hyperglycemia: (6) Acute kidney failure: Plan Patient presents with increasing cough with yellowish sputum, at presentation patient needed oxygen up to 15 L via nonrebreather and multiple DuoNeb treatments before coming back down to 6 L which is his baseline. Admitting CXR and CTA chest reviewed. Viral panel negative. Troponin WNL. Follow-up admitting blood culture and sputum culture-negative so far Cont cefepime and doxycycline pending clinical improvement and culture results for total 7 days. Cont with Brovana and budesonide per pulm. Cont azithromycin MWF and Daliresp at discharge (was not initially known to add to home med list but it is there now). Duo nebs, hypertonic saline nebulization, home inhalers, Solu-Medrol 3 times daily, telemetry monitoring. Cont flutter valve and mucinex. Solu-Medrol has been decreased to 40 mg twice daily Will need to be discharged on Medrol Dosepak Clinically much better with significant improvement of symptoms Has had physical therapy and recommended home Will give Ceftin need for 7 more days and Medrol Dosepak on discharge-med ications were transmitted to the pharmacy White count is elevated likely secondary to use of Solu-Medrol Will give pain medication for his pleurisy. Denies any more chest pain with coughing Recent A1C is <6, but steroid induced hyperglycemia is present. Cont insulin at this time including carb coverage. Use only correction factor if he becomes hypoglycemic. Blood sugar remains stable at 108 06/13/22 Blood sugar was low this morning Will monitor and get PRP tomorrow Increased creatinine likely related to sepsis picture. We are still resuscitating him with IVF now and lactate will be rechecked as still >2. Will Repeat BMP after IVF resuscitation in am. Creatinine has been normalized Advised to drink more fluid For underlying mood disorder please continue trazodone, sertraline and BuSpar per home regimen. Heparin for DVT prophylaxis Full code Disposition-to home when improved. 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, the patient about discharge for tomorrow Patient is agreeable and will plan to discharge after lunch tomorrow Admission and Anticipated Discharge Date Admission Date: June 11, 2022 Subjective 06/13/2022 The patient was seen and examined in telemetry unit in presence of the son He has been feeling much better Minimal cough and no shortness of breath at rest No fever and no chills Awaiting physical therapy prior to discharge tomorrow maybe 06/14/2022 The patient was seen and examined in telemetry unit He has been feeling much better Cough and shortness of breath are improved Has had physical therapy and recommended home Review of Systems Review of Systems: All systems reviewed and are unremarkable except as noted below Physical Exam Physical Exam: Lying in bed comfortably Constitutional: well developed, well nourished, + ill appearing and + obese Eyes: PERRL, conjunctivae normal, anicteric sclerae ENMT: external ear and nose normal, oropharynx normal Neck: trachea midline, no thyromegaly Respiratory: no respiratory distress Auscultation: + diminished lung sounds and + crackles (Bibasilar crackles) Cardiovascular: Rate/Rhythm: regular rate and regular rhythm; not tachycardic Heart Sounds: normal S1 and normal S2; no murmur Extremities: no edema Gastrointestinal (Abdomen): Inspection/Auscultation: normal bowel sounds; abdomen not distended Percussion/Palpation: abdomen soft; abdomen nontender Musculoskeletal: No acute arthritis in any joint Neurologic: normal touch/pain/proprioception and moves all extremities; no focal motor deficits Lymphatic: no cervical or axillary lymphadenopathy Results & Data Results & Data ([facility]) Vital Signs (Past 12 Hours) Vital Signs Temp Pulse Pulse Resp BP BP Pulse Ox 06/14/22 14:37 90 18 92 06/14/22 11:58 36.5 C 94 H 18 127/73 92 06/14/22 10:34 100 H 20 90 06/14/22 07:56 36.4 C L 65 18 134/84 97 06/14/22 07:45 84 06/14/22 07:38 89 18 95 06/14/22 03:16 36.6 C 62 18 122/74 96 O2 Del Method O2 Flow Rate 06/14/22 14:37 Nasal Cannula 6 06/14/22 11:58 Nasal Cannula 6 06/14/22 10:34 Nasal Cannula 6 06/14/22 07:56 Nasal Cannula 6 06/14/22 07:45 06/14/22 07:38 Nasal Cannula 6 06/14/22 03:16 High Flow Nasal Cannula Laboratory Results Short CBC 06/14/22 Range/Units 06:15 WBC 16.32 H (4.8-10.8) K/ul Hgb 11.1 L (14.0-18.0) g/dl Hct 33.6 L (40.1-51.0) % Plt Count 135 (130-400) K/uL BMP 06/14/22 06:15 Sodium 135 L Potassium 5.0 Chloride 100 Carbon Dioxide 30 BUN 27 H Creatinine 1.20 Glucose 159 H Calcium 9.1 Medications Administered Current Inpatient Medications Acetaminophen (Acetaminophen 325 Mg Tab) 650 mg PO Q4H PRN PRN Reason: Pain or Fever Stop: 07/11/22 23:36 Acetaminophen/Codeine Phosphate (Acetaminophen W/Codeine #3 1 Tab) 1 tab PO Q6H PRN PRN Reason: severe pain (7-10) Stop: 07/12/22 19:11 Last Admin: 06/13/22 20:55 Dose: 1 tab Al Hydrox/Mg Hydrox/Simethicone (Aluminum/Magnesium Susp 30 Ml Udc) 15 ml PO Q4H PRN PRN Reason: Dyspepsia Stop: 07/11/22 23:36 Albuterol (Albut/Ipratrop 3mg/0.5mg Neb 3 Ml Vial) 3 ml NEB QIDR [place]; Protocol Stop: 07/12/22 06:59 Last Admin: 06/14/22 14:36 Dose: 3 ml Ascorbic Acid (Ascorbic Acid 500 Mg Tab) 1,000 mg PO DAILY [place] Stop: 07/13/22 08:59 Last Admin: 06/14/22 08:56 Dose: 1,000 mg Budesonide (Budesonide 0.25 Mg/2 Ml Vial (Pulmicort)) 0.25 mg INH BIDR [place] Stop: 07/12/22 00:33 Last Admin: 06/14/22 07:34 Dose: 0.25 mg Buspirone HCl (Buspirone 7.5 Mg Tab) 7.5 mg PO HS [facility] Stop: 07/12/22 20:59 Last Admin: 06/13/22 20:43 Dose: 7.5 mg Dextrose (Dextrose 50% 50 Ml Syringe) 25 - 50 ml IV UD PRN; Protocol PRN Reason: Hypoglycemia Protocol Stop: 07/12/22 05:42 Diltiazem HCl (Diltiazem Hcl 240 Mg Capcr) 240 mg PO DAILY [facility] Stop: 07/13/22 08:59 Last Admin: 06/14/22 08:58 Dose: 240 mg Formoterol Fumarate (Formoterol 20 Mcg/2 Ml Vial) 20 mcg NEB BIDR [facility] Stop: 07/12/22 00:33 Last Admin: 06/14/22 07:34 Dose: 20 mcg Glucagon (Glucagon For Inj 1 Mg Vial) 1 mg SQ UD PRN; Protocol PRN Reason: Hypoglycemia Protocol Stop: 07/12/22 05:42 Glucose (Glucose 40% Gel 15 Gm Tube) 15 - 30 gm PO UD PRN; Protocol PRN Reason: Hypoglycemia Protocol Stop: 07/12/22 05:42 Glucose (Glucose 10 Tab/Tube) 4 - 8 tab PO UD PRN; Protocol PRN Reason: Hypoglycemia Treatment Stop: 07/12/22 05:42 Guaifenesin (Guaifenesin 200 Mg Tab) 400 mg PO BID [facility] Stop: 07/12/22 08:59 Last Admin: 06/14/22 08:57 Dose: 400 mg Heparin Sodium (Porcine) (Heparin Sod 5,000 Unit/0.5 Ml Vial) 5,000 units SQ Q12 [facility] Stop: 07/12/22 08:59 Last Admin: 06/14/22 09:46 Dose: 5,000 units Doxycycline Hyclate 100 mg/ (Dextrose) 110 mls @ 50 mls/hr IV Q12H [facility] Stop: 06/19/22 00:59 Last Infusion: 06/14/22 14:53 Dose: 0 mls/hr Cefepime HCl 2,000 mg/ Syringe 20 mls @ 5 mls/min IV Q12H [facility]; Protocol Stop: 06/19/22 04:59 Last Admin: 06/14/22 05:54 Dose: 5 mls/min Insulin Aspart (Insulin Aspart Per Unit) 0 units SC ACHS [facility] Stop: 07/12/22 07:29 Last Admin: 06/14/22 12:50 Dose: 10 units Lactobacillus Acidophilus (Advanced Probiotic 1250 Mg Capsule) 2 cap PO DAILY [facility] Stop: 07/12/22 08:59 Last Admin: 06/14/22 08:56 Dose: 2 cap Magnesium Hydroxide (Magnesium Hydroxide Susp 30 Ml Udc) 30 ml PO Q12H PRN PRN Reason: Constipation Stop: 07/11/22 23:36 Methylprednisolone (Methylprednisolone 4 Mg Tab) 8 mg PO 0700,2100 [facility] Stop: 06/15/22 21:01 Methylprednisolone (Methylprednisolone 4 Mg Tab) 4 mg PO 1300,1800 [facility] Stop: 06/15/22 18:01 Methylprednisolone (Methylprednisolone 4 Mg Tab) 4 mg PO 0700,1300,1800 [facility] Stop: 06/16/22 18:01 Methylprednisolone (Methylprednisolone 4 Mg Tab) 8 mg PO HS [facility] Stop: 06/16/22 21:01 Methylprednisolone (Methylprednisolone 4 Mg Tab) 4 mg PO 0700,1300,1800,2100 [facility] Stop: 06/17/22 21:01 Methylprednisolone (Methylprednisolone 4 Mg Tab) 4 mg PO 0700,1300,2100 [facility] Stop: 06/18/22 21:01 Methylprednisolone (Methylprednisolone 4 Mg Tab) 4 mg PO 0700,2100 [facility] Stop: 06/19/22 21:01 Methylprednisolone (Methylprednisolone 4 Mg Tab) 4 mg PO 0700 [facility] Stop: 06/20/22 07:01 Miscellaneous (Carbohydrates For Hypoglycemia ) 15 - 30 gm PO UD PRN PRN Reason: Hypoglycemia Protocol Stop: 07/12/22 05:42 Ondansetron HCl (Ondansetron Inj 2 Mg/Ml 2 Ml Vial) 4 mg IV Q6H PRN PRN Reason: Nausea Stop: 07/11/22 23:36 Pantoprazole Sodium (Pantoprazole 40 Mg Tab) 40 mg PO BID [facility] Stop: 07/12/22 08:59 Last Admin: 06/14/22 08:57 Dose: 40 mg Polyethylene Glycol (Polyethylene (Miralax) 17 Gm Pack) 17 gm PO DAILY PRN PRN Reason: Constipation Stop: 07/11/22 23:36 Potassium Chloride (Potassium Chloride 10 Meq Tabcr) 10 meq PO DAILY [facility] Stop: 07/12/22 08:59 Last Admin: 06/14/22 08:57 Dose: 10 meq Sertraline HCl (Sertraline Hcl 100 Mg Tablet) 200 mg PO [facility] Stop: 07/12/22 20:59 Last Admin: 06/13/22 20:43 Dose: 200 mg Sodium Chloride (Sodium Chlor 7% 4 Ml Neb) 4 ml NEB BIDR [facility] Stop: 07/12/22 06:59 Last Admin: 06/14/22 07:34 Dose: 4 ml Trazodone HCl (Trazodone Hcl 50 Mg Tab) 150 mg PO [facility] Stop: 07/12/22 20:59 Last Admin: 06/13/22 20:43 Dose: 150 mg Umeclidinium [place] (Umeclidinium [place] 62.5mcg/Blister 7 Puffs/Inhaler) 1 puffs INH DAILY [facility] Stop: 07/12/22 08:59 Last Admin: 06/14/22 08:59 Dose: 1 puffs Vitamin D (Cholecalciferol 1,000 Units 25 Mcg Tab) 2,000 units PO QAM [facility] Stop: 07/13/22 08:59 Last Admin: 06/14/22 09:45 Dose: 2,000 units
[2022-06-14] MEDS: ACETAMINOPHEN W/CODEINE #3 1 TAB PO PRN (18:04)
[2022-06-14] MEDS: SERTRALINE HCL 100 MG TABLET PO SCH (21:29)
[2022-06-14] MEDS: traZODone HCL 50 MG TAB PO SCH (21:31)
[2022-06-14] MEDS: busPIRone 7.5 MG TAB PO SCH (21:32)
[2022-06-15] MEDS: DOXYCYCLINE HYCLATE 100 MG in DEXTROSE 5% 100 ML IV SCH ×2 (01:12→13:18)
[2022-06-15] MEDS: ACETAMINOPHEN W/CODEINE #3 1 TAB PO PRN (01:13)
[2022-06-15 06:15] LABS: Basophils # (auto) 0.02 K/uL (0-0.2); Basophils % (auto) 0.1 %; Eosinophils # (auto) 0.02 K/uL (0-0.50); Eosinophils % (auto) 0.1 %; Hematocrit (blood only) 35.3 % (40.1-51.0); Hemoglobin 11.5 g/dl (14.0-18.0); Immature Granulocytes # (auto) 0.14 K/uL (0.00-0.02); Lymphocytes # (auto) 1.74 K/uL (1.2-3.4); Lymphocytes % (auto) 12.4 %; Mean Corpuscular Hemoglobin 29.8 pg (25.0-34.0); Mean Corpuscular Hgb Conc 32.6 g/dL (32.0-36.0); Mean Corpuscular Volume 91.5 fL (80.0-100.0); Monocytes # (auto) 1.09 K/uL (0.24-0.82); Monocytes % (auto) 7.7 %; Neutrophils # (auto) 11.07 K/uL (1.4-6.5); Neutrophils % (auto) 78.7 %; Platelet Count 144 K/uL (130-400); RDW Coefficient of Variation 13.3 % (11.5-14.5); RDW Standard Deviation 44.1 fL (36.4-46.3); Red Blood Count 3.86 M/uL (4.63-6.08); White Blood Count 14.08 K/ul (4.8-10.8)
[2022-06-15] MEDS: CEFEPIME 2,000 MG in SYRINGE 0 ML IV SCH (06:26)
[2022-06-15 06:31] LABS: BUN Creatinine Ratio 22.5 (10-20); Calcium 8.8 mg/dl (8.5-10.1); Est GFR (African American) 58.8 ml/min; Est GFR (Non-African American) 50.7 ml/min; Potassium 3.8 mmol/L (3.5-5.1)
[2022-06-15] MEDS ORDERED: methylPREDNISolone 4 MG TAB PO SCH ×2 (07:00→13:00)
[2022-06-15] MEDS: ALBUT/IPRATROP 3MG/0.5MG NEB 3 ML VIAL NEB SCH ×2 (07:30→11:20)
[2022-06-15] MEDS: FORMOTEROL 20 MCG/2 ML VIAL NEB SCH (07:30)
[2022-06-15] MEDS: SODIUM CHLOR 7% 4 ML NEB NEB SCH (07:30)
[2022-06-15] MEDS: BUDESONIDE 0.25 MG/2 ML VIAL (PULMICORT) INH SCH (07:31)
--- NOTE | 2022-06-15 07:34 | Pulmonology Progress Note ---
Date of Service June 15, 2022 Assessment & Plan (1) Pneumonia: (2) Acute on chronic respiratory failure with hypoxia and hypercapnia: (3) COPD exacerbation: (4) SOB (shortness of breath): (5) COPD (chronic obstructive pulmonary disease) with emphysema: Plan 2D echo 05-11-21: EF 65-70%, right ventricle systolic function is mildly reduced, grade 1 diastolic dysfunction. Normal right ventricular function CT chest 06/11/2022 personally reviewed: Severe centrilobular and paraseptal emphysema appreciated bilaterally Patchy opacities appreciated in the right upper lobe on the periphery No mediastinal lymphadenopathy --Acute on chronic hypercapnic hypoxic respiratory failure Chronically on 6-8 l oxygen at home Secondary to COPD exacerbation with right upper lobe pneumonia COVID-19 PCR negative Influenza A/B negative RSV negative Currently on formoterol, budesonide and IV Solu-Medrol Keep O2 saturation between 88-92% BiPAP nightly and as needed shortness of breath --COPD Gold D On budesonide Brovana and Incruse at home Supposed to be on Daliresp as well as azithromycin 250 mg Njzckg-Uwvkklwxj-Ixbkfe (does not show up on the AUG) QTC 448 06/11/22 Patient does state that he has been using what ever was prescribed to him --History of COVID-19 pneumonia May 2020 Plan: Taper steroid off over the next 5-7 days Continue with Brovana budesonide and Incruse inhaler at home Can give cefdinir or cefpodoxime for total of 10 days. Restart azithromycin Crmsrs-Dyeyudoki-Ydsjmj after above course of antibiotics is done Try to keep O2 saturation between 88-92%. Do not over oxygenate the patient Case was discussed with Dr Sandoval No further recommendation from pulmonary perspective, will sign off. Please call directly with any questions Please note the above document was generated using voice recognition software. It may contain grammatical, syntax or spelling errors.Any formal questions or concerns about the content, text or information contained within the body of this dictation should be directly addressed to the provider for clarification. Admission and Anticipated Discharge Date Admission Date: June 11, 2022 Subjective Patient seen and examined at bedside. No acute distress, no dressings overnight. He says feeling been feeling well. Shortness of breath improved Coughing up clear phlegm. No hemoptysis Fair appetite. No nausea vomiting No headache, no dizziness Review of Systems Review of Systems: All systems reviewed & are unremarkable except as noted in Subjective Physical Exam Physical Exam: Constitutional: No acute distress HEENT: EOMI, PERRLA Respiratory system: Decreased air entry bilaterally, no rhonchi, positive crackles bilateral lower lobes, no wheezing CVS: S1-S2 positive, no murmurs or gallops Abdomen: Soft, nontender, nondistended, positive bowel sounds x4 Extremities: +2 pulses bilaterally radialis/ dorsalis pedis, no cyanosis, no edema Neuro: Awake alert oriented x3 Psych: Normal mood and affect G/U: No Ponce Skin: no rashes, warm and dry Lymphatic: no cervical or axillary lymphadenopathy Results & Data Results & Data ([facility]) Vital Signs (Past 12 Hours) Vital Signs Temp Pulse Pulse Resp BP Pulse Ox O2 Del Method 06/15/22 07:31 80 18 96 Nasal Cannula 06/15/22 07:13 36.4 C L 81 16 111/69 100 Room Air 06/15/22 03:03 36.7 C 70 18 121/70 95 Nasal Cannula 06/15/22 00:00 93 H 06/14/22 20:00 Nasal Cannula 06/14/22 23:07 36.7 C 86 18 124/71 94 Nasal Cannula 06/14/22 19:40 86 18 91 Nasal Cannula, Other 06/14/22 19:38 36.9 C 86 18 108/67 94 Nasal Cannula O2 Flow Rate 06/15/22 07:31 6 06/15/22 07:13 06/15/22 03:03 06/15/22 00:00 06/14/22 20:00 6 06/14/22 23:07 06/14/22 19:40 6 06/14/22 19:38 Laboratory Results 06/15/22 05:39 06/15/22 05:39 PG Care Time/CCT Total # of Minutes Spent Total Time Spent with Patient: Total time spent is greater than 50% in coordination of care (as documented) at patient's floor/unit and/or counseling patient: Coding Level of Care Code 45117 SUB INP/OBS CARE 2/35MIN Diagnoses Pneumonia J18.9 Acute on chronic respiratory failure with hypoxia and hypercapnia J96.21; J96.22 COPD exacerbation J44.1 SOB (shortness of breath) R06.02 COPD (chronic obstructive pulmonary disease) with emphysema J43.9
[2022-06-15] MEDS ORDERED: methylPREDNISolone 40 MG in SYRINGE 0 ML IV SCH (09:00)
[2022-06-15] MEDS: INSULIN ASPART PER UNIT SC SCH ×2 (09:51→13:22)
[2022-06-15] MEDS: ASCORBIC ACID 500 MG TAB PO SCH (09:55)
[2022-06-15] MEDS: PANTOprazole 40 MG TAB PO SCH (09:56)
[2022-06-15] MEDS: ADVANCED PROBIOTIC 1250 MG CAPSULE PO SCH (09:56)
[2022-06-15] MEDS: CHOLECALCIFEROL 1,000 UNITS 25 MCG TAB PO SCH (09:56)
[2022-06-15] MEDS: dilTIAZem HCL 240 MG CAPCR PO SCH (09:57)
[2022-06-15] MEDS: POTASSIUM CHLORIDE 10 MEQ TABCR PO SCH (09:57)
[2022-06-15] MEDS: guaiFENesin 200 MG TAB PO SCH (09:57)
[2022-06-15] MEDS: UMECLIDINIUM BROMIDE 62.5MCG/BLISTER 7 PUFFS/INHALER INH SCH (09:58)
[2022-06-15] MEDS: HEPARIN SOD 5,000 UNIT/0.5 ML VIAL SQ SCH (09:58)
--- NOTE | 2022-06-15 12:29 | Hospitalist Progress Note ---
Date of Service June 15, 2022 Assessment & Plan (1) Acute on chronic respiratory failure with hypoxia and hypercapnia: (2) Sepsis: (3) Pneumonia: (4) COPD exacerbation: (5) Steroid-induced hyperglycemia: (6) Acute kidney failure: Plan Patient presents with increasing cough with yellowish sputum, at presentation patient needed oxygen up to 15 L via nonrebreather and multiple DuoNeb treatments before coming back down to 6 L which is his baseline. Admitting CXR and CTA chest reviewed. Viral panel negative. Troponin WNL. Follow-up admitting blood culture and sputum culture-negative so far Cont cefepime and doxycycline pending clinical improvement and culture results for total 7 days. Cont with Brovana and budesonide per pulm. Cont azithromycin MWF and Daliresp at discharge (was not initially known to add to home med list but it is there now). Duo nebs, hypertonic saline nebulization, home inhalers, Solu-Medrol 3 times daily, telemetry monitoring. Cont flutter valve and mucinex. Solu-Medrol has been decreased to 40 mg twice daily Will need to be discharged on Medrol Dosepak Clinically much better with significant improvement of symptoms Has had physical therapy and recommended home Will give Ceftin need for 7 more days and Medrol Dosepak on discharge-med ications were transmitted to the pharmacy White count is elevated likely secondary to use of Solu-Medrol Remains stable and denies any significant symptoms specially no cough and no shortness of breath at rest Will be discharged home this afternoon Will give pain medication for his pleurisy. Denies any more chest pain with coughing Recent A1C is <6, but steroid induced hyperglycemia is present. Cont insulin at this time including carb coverage. Use only correction factor if he becomes hypoglycemic. Blood sugar remains stable at 108 06/13/22 Blood sugar was low this morning Blood sugar remains stable Increased creatinine likely related to sepsis picture. We are still resuscitating him with IVF now and lactate will be rechecked as still >2. Will Repeat BMP after IVF resuscitation in am. Creatinine has been normalized Advised to drink more fluid-kidney function remains stable For underlying mood disorder please continue trazodone, sertraline and BuSpar per home regimen. Heparin for DVT prophylaxis Full code Disposition-to home when improved. Discussed with the machine assembler supervisor, the patient about discharge for tomorrow Patient is agreeable and will plan to discharge after lunch tomorrow He will be discharged home this afternoon Admission and Anticipated Discharge Date Admission Date: June 11, 2022 Subjective 06/13/2022 The patient was seen and examined in telemetry unit in presence of the son He has been feeling much better Minimal cough and no shortness of breath at rest No fever and no chills Awaiting physical therapy prior to discharge tomorrow maybe 06/14/2022 The patient was seen and examined in telemetry unit He has been feeling much better Cough and shortness of breath are improved Has had physical therapy and recommended home 06/15/2022 The patient was seen and examined in telemetry unit He has been feeling much better and is back to his baseline Denies any cough and no shortness of breath No fever and no chills and the white count is coming down Review of Systems Review of Systems: All systems reviewed and are unremarkable except as noted below Physical Exam Physical Exam: Lying in bed comfortably Constitutional: well developed, well nourished, + ill appearing and + obese Eyes: PERRL, conjunctivae normal, anicteric sclerae ENMT: external ear and nose normal, oropharynx normal Neck: trachea midline, no thyromegaly Respiratory: no respiratory distress Auscultation: + diminished lung sounds and + crackles (Bibasilar crackles) Cardiovascular: Rate/Rhythm: regular rate and regular rhythm; not tachycardic Heart Sounds: normal S1 and normal S2; no murmur Extremities: no edema Gastrointestinal (Abdomen): Inspection/Auscultation: normal bowel sounds; abdomen not distended Percussion/Palpation: abdomen soft; abdomen nontender Musculoskeletal: No acute arthritis in any joint Neurologic: normal touch/pain/proprioception and moves all extremities; no focal motor deficits Psychiatric: A+Ox3, euthymic affect Lymphatic: no cervical or axillary lymphadenopathy Results & Data Results & Data ([facility]) Vital Signs (Past 12 Hours) Vital Signs Temp Pulse Pulse Resp BP Pulse Ox O2 Del Method 06/15/22 12:08 36.9 C 89 20 114/68 90 Nasal Cannula 06/15/22 11:20 86 18 96 Nasal Cannula 06/15/22 07:00 75 06/15/22 07:31 80 18 96 Nasal Cannula 06/15/22 07:13 36.4 C L 81 16 111/69 100 Room Air 06/15/22 03:03 36.7 C 70 18 121/70 95 Nasal Cannula O2 Flow Rate 06/15/22 12:08 4.5 06/15/22 11:20 5 06/15/22 07:00 06/15/22 07:31 6 06/15/22 07:13 06/15/22 03:03 Laboratory Results Short CBC 06/15/22 Range/Units 05:39 WBC 14.08 H (4.8-10.8) K/ul Hgb 11.5 L (14.0-18.0) g/dl Hct 35.3 L (40.1-51.0) % Plt Count 144 (130-400) K/uL BMP 06/15/22 05:39 Sodium 135 L Potassium 3.8 D Chloride 98 Carbon Dioxide 33 H BUN 31 H Creatinine 1.38 Glucose 160 H Calcium 8.8 Medications Administered Current Inpatient Medications Acetaminophen (Acetaminophen 325 Mg Tab) 650 mg PO Q4H PRN PRN Reason: Pain or Fever Stop: 07/11/22 23:36 Acetaminophen/Codeine Phosphate (Acetaminophen W/Codeine #3 1 Tab) 1 tab PO Q6H PRN PRN Reason: severe pain (7-10) Stop: 07/12/22 19:11 Last Admin: 06/15/22 01:13 Dose: 1 tab Al Hydrox/Mg Hydrox/Simethicone (Aluminum/Magnesium Susp 30 Ml Udc) 15 ml PO Q4H PRN PRN Reason: Dyspepsia Stop: 07/11/22 23:36 Albuterol (Albut/Ipratrop 3mg/0.5mg Neb 3 Ml Vial) 3 ml NEB QIDR [facility]; Protocol Stop: 07/12/22 06:59 Last Admin: 06/15/22 11:20 Dose: 3 ml Ascorbic Acid (Ascorbic Acid 500 Mg Tab) 1,000 mg PO DAILY [facility] Stop: 07/13/22 08:59 Last Admin: 06/15/22 09:55 Dose: 1,000 mg Budesonide (Budesonide 0.25 Mg/2 Ml Vial (Pulmicort)) 0.25 mg INH BIDR [facility] Stop: 07/12/22 00:33 Last Admin: 06/15/22 07:31 Dose: 0.25 mg Buspirone HCl (Buspirone 7.5 Mg Tab) 7.5 mg PO [facility] Stop: 07/12/22 20:59 Last Admin: 06/14/22 21:32 Dose: 7.5 mg Dextrose (Dextrose 50% 50 Ml Syringe) 25 - 50 ml IV UD PRN; Protocol PRN Reason: Hypoglycemia Protocol Stop: 07/12/22 05:42 Diltiazem HCl (Diltiazem Hcl 240 Mg Capcr) 240 mg PO DAILY [facility] Stop: 07/13/22 08:59 Last Admin: 06/15/22 09:57 Dose: 240 mg Formoterol Fumarate (Formoterol 20 Mcg/2 Ml Vial) 20 mcg NEB BIDR [place] Stop: 07/12/22 00:33 Last Admin: 06/15/22 07:30 Dose: 20 mcg Glucagon (Glucagon For Inj 1 Mg Vial) 1 mg SQ UD PRN; Protocol PRN Reason: Hypoglycemia Protocol Stop: 07/12/22 05:42 Glucose (Glucose 40% Gel 15 Gm Tube) 15 - 30 gm PO UD PRN; Protocol PRN Reason: Hypoglycemia Protocol Stop: 07/12/22 05:42 Glucose (Glucose 10 Tab/Tube) 4 - 8 tab PO UD PRN; Protocol PRN Reason: Hypoglycemia Treatment Stop: 07/12/22 05:42 Guaifenesin (Guaifenesin 200 Mg Tab) 400 mg PO BID [facility] Stop: 07/12/22 08:59 Last Admin: 06/15/22 09:57 Dose: 400 mg Heparin Sodium (Porcine) (Heparin Sod 5,000 Unit/0.5 Ml Vial) 5,000 units SQ Q12 [facility] Stop: 07/12/22 08:59 Last Admin: 06/15/22 09:58 Dose: Not Given Doxycycline Hyclate 100 mg/ (Dextrose) 110 mls @ 50 mls/hr IV Q12H [facility] Stop: 06/19/22 00:59 Last Infusion: 06/15/22 03:29 Dose: Infused Cefepime HCl 2,000 mg/ Syringe 20 mls @ 5 mls/min IV Q12H [facility]; Protocol Stop: 06/19/22 04:59 Last Admin: 06/15/22 06:26 Dose: 5 mls/min Insulin Aspart (Insulin Aspart Per Unit) 0 units SC ACHS [facility] Stop: 07/12/22 07:29 Last Admin: 06/15/22 09:51 Dose: 7 units Lactobacillus Acidophilus (Advanced Probiotic 1250 Mg Capsule) 2 cap PO DAILY [facility] Stop: 07/12/22 08:59 Last Admin: 06/15/22 09:56 Dose: 2 cap Magnesium Hydroxide (Magnesium Hydroxide Susp 30 Ml Udc) 30 ml PO Q12H PRN PRN Reason: Constipation Stop: 07/11/22 23:36 Methylprednisolone (Methylprednisolone 4 Mg Tab) 8 mg PO 0700,2100 [place] Stop: 06/15/22 21:01 Last Admin: 06/15/22 06:25 Dose: 8 mg Methylprednisolone (Methylprednisolone 4 Mg Tab) 4 mg PO 1300,1800 [place] Stop: 06/15/22 18:01 Methylprednisolone (Methylprednisolone 4 Mg Tab) 4 mg PO 0700,1300,1800 [facility] Stop: 06/16/22 18:01 Methylprednisolone (Methylprednisolone 4 Mg Tab) 8 mg PO HS [facility] Stop: 06/16/22 21:01 Methylprednisolone (Methylprednisolone 4 Mg Tab) 4 mg PO 0700,1300,1800,2100 [place] Stop: 06/17/22 21:01 Methylprednisolone (Methylprednisolone 4 Mg Tab) 4 mg PO 0700,1300,2100 [place] Stop: 06/18/22 21:01 Methylprednisolone (Methylprednisolone 4 Mg Tab) 4 mg PO 0700,2100 [place] Stop: 06/19/22 21:01 Methylprednisolone (Methylprednisolone 4 Mg Tab) 4 mg PO 0700 [facility] Stop: 06/20/22 07:01 Miscellaneous (Carbohydrates For Hypoglycemia ) 15 - 30 gm PO UD PRN PRN Reason: Hypoglycemia Protocol Stop: 07/12/22 05:42 Ondansetron HCl (Ondansetron Inj 2 Mg/Ml 2 Ml Vial) 4 mg IV Q6H PRN PRN Reason: Nausea Stop: 07/11/22 23:36 Pantoprazole Sodium (Pantoprazole 40 Mg Tab) 40 mg PO BID [facility] Stop: 07/12/22 08:59 Last Admin: 06/15/22 09:56 Dose: 40 mg Polyethylene Glycol (Polyethylene (Miralax) 17 Gm Pack) 17 gm PO DAILY PRN PRN Reason: Constipation Stop: 07/11/22 23:36 Potassium Chloride (Potassium Chloride 10 Meq Tabcr) 10 meq PO DAILY [facility] Stop: 07/12/22 08:59 Last Admin: 06/15/22 09:57 Dose: 10 meq Sertraline HCl (Sertraline Hcl 100 Mg Tablet) 200 mg PO HS [facility] Stop: 07/12/22 20:59 Last Admin: 06/14/22 21:29 Dose: 200 mg Sodium Chloride (Sodium Chlor 7% 4 Ml Neb) 4 ml NEB BIDR [place] Stop: 07/12/22 06:59 Last Admin: 06/15/22 07:30 Dose: 4 ml Trazodone HCl (Trazodone Hcl 50 Mg Tab) 150 mg PO HS [facility] Stop: 07/12/22 20:59 Last Admin: 06/14/22 21:31 Dose: 150 mg Umeclidinium [place] (Umeclidinium [place] 62.5mcg/Blister 7 Puffs/Inhaler) 1 puffs INH DAILY [facility] Stop: 07/12/22 08:59 Last Admin: 06/15/22 09:58 Dose: 1 puffs Vitamin D (Cholecalciferol 1,000 Units 25 Mcg Tab) 2,000 units PO QAM [place] Stop: 07/13/22 08:59 Last Admin: 06/15/22 09:56 Dose: 2,000 units
[2022-06-16] MEDS ORDERED: methylPREDNISolone 4 MG TAB PO SCH ×2 (07:00→21:00)
[2022-06-17] MEDS ORDERED: methylPREDNISolone 4 MG TAB PO SCH (07:00)
[2022-06-18] MEDS ORDERED: methylPREDNISolone 4 MG TAB PO SCH (07:00)
[2022-06-19] MEDS ORDERED: methylPREDNISolone 4 MG TAB PO SCH (07:00)
[2022-06-20] MEDS ORDERED: methylPREDNISolone 4 MG TAB PO SCH (07:00)
--- NOTE | 2022-06-22 09:45 | Discharge Summary ---
Date of Service June 22, 2022 Admission HPI Per Admitting Provider 71-year-old male who has significant past medical history of severe COPD on chronic 6 L of oxygen, cirrhosis, HTN, PTSD, depression with anxiety, history of tobacco abuse, anemiapresented to the ED 1/2 with complaint of increasing cough with congestion and productive of yellow sputum and associated with right chest pain upon deep breathing. Patient reports not having Mucinex in the last 1 weeks because of delivery issues. Patient reports all the symptoms are going on for 1 week. Patient was seen by his quality assurance practice manager in last April and was referred to palliative care, patient has not visited palliative care per him because he does not want to and he would like everything to be done to save him. "Wouldn't want to go that route. " Patient denies fever or sore throat or palpitation or belly pain. Patient reports good appetite. Patient denies any pain or burning with passing urine and reports normal bowel movement. Patient reports feeling weak. Patient smoked tobacco for 42 years, quit 6 years ago, denies alcohol and recreational drug use. Full code upon my discussion with the patient. 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 Patient reports father dying of kidney cancer and mother dying of colon cancer. Medications were reviewed with the patient. Plan of care was discussed with the patient at bedside. Admission Exam Per Admitting Provider Physical Exam: GENERAL: Alert and oriented x3. NAD, on 6L, Appears chronically ill/weak. HEENT: No pallor, no icterus. Pupils equal, round and reactive to light. Oral mucosa moist. NECK: No JVD, no neck masses. HEART: S1 and S2 heard. Regular rate and rhythm. No murmur, no gallop. RESPIRATORY SYSTEM: Normal AP diameter. No accessory muscle use. Decreased breath sounds b/l, wheeze + ABDOMEN: Soft, bowel sounds present, nontender, no distention. CENTRAL NERVOUS SYSTEM: No facial droop. Speech is clear. Obeys simple commands. Moves extremities. EXTREMITIES: No edema, no erythema seen. Principal Diagnosis Acute on chronic respiratory failure with hypoxia and hypercapnia, sepsis ,pneumonia, COPD exacerbation Discharge Exam Lying in bed comfortably Constitutional well developed, well nourished, + ill appearing and + obese Eyes PERRL, conjunctivae normal, anicteric sclerae ENMT external ear and nose normal, oropharynx normal Neck trachea midline, no thyromegaly Respiratory no respiratory distress Auscultation: + diminished lung sounds and + crackles (Bibasilar crackles) Cardiovascular Rate/Rhythm: regular rate and regular rhythm; not tachycardic Heart Sounds: normal S1 and normal S2; no murmur Extremities: no edema Gastrointestinal (Abdomen) Inspection/Auscultation: normal bowel sounds; abdomen not distended Percussion/Palpation: abdomen soft; abdomen nontender Neurologic normal touch/pain/proprioception and moves all extremities; no focal motor deficits Psychiatric A+Ox3, euthymic affect Lymphatic no cervical or axillary lymphadenopathy Discharge Data Allergies Allergy/AdvReac Type Severity Reaction Status Date / Time bee venom protein (honey bee) Allergy Severe ANAPHYLAXIS Verified 06/11/22 23:05 amoxicillin Allergy Intermediate FACIAL Verified 06/11/22 23:05 SWELLING (EYES SWELLED SHUT) clavulanic acid Allergy Intermediate FACIAL Verified 06/11/22 23:05 SWELLING (EYES SWELLED SHUT) pneumococcal vaccine Allergy Intermediate SWELLING Verified 06/11/22 23:05 Giwychs-NVD-IyT Reductase Allergy Intermediate CPK'S GO Verified 06/11/22 23:05 Inhibitor THROUGH [Tumzuae-Icj-Kle Reductase ROOF Inhibitor] prednisone AdvReac Intermediate confusion Verified 06/11/22 23:05 and agitation Consultations 06/11/22 21:57 ED Decision to Admit Stat 06/11/22 23:37 Consult Pulmonology Routine Ordered Studies 06/11/22 18:59 CT angio chest PE protocol Stat Hospital Course (1) Acute on chronic respiratory failure with hypoxia and hypercapnia: (2) Sepsis: (3) Pneumonia: (4) COPD exacerbation: (5) Steroid-induced hyperglycemia: (6) Acute kidney failure: Plan Patient presents with increasing cough with yellowish sputum, at presentation patient needed oxygen up to 15 L via nonrebreather and multiple DuoNeb treatments before coming back down to 6 L which is his baseline. Admitting CXR and CTA chest reviewed. Viral panel negative. Troponin WNL. Follow-up admitting blood culture and sputum culture-negative so far Cont cefepime and doxycycline pending clinical improvement and culture results for total 7 days. Cont with Brovana and budesonide per pulm. Cont azithromycin MWF and Daliresp at discharge (was not initially known to add to home med list but it is there now). Duo nebs, hypertonic saline nebulization, home inhalers, Solu-Medrol 3 times daily, telemetry monitoring. Cont flutter valve and mucinex. Solu-Medrol has been decreased to 40 mg twice daily Will need to be discharged on Medrol Dosepak Clinically much better with significant improvement of symptoms Has had physical therapy and recommended home Will give Ceftin need for 7 more days and Medrol Dosepak on discharge- medications were transmitted to the pharmacy White count is elevated likely secondary to use of Solu-Medrol Remains stable and denies any significant symptoms specially no cough and no shortness of breath at rest Will be discharged home this afternoon Will give pain medication for his pleurisy. Denies any more chest pain with coughing Recent A1C is <6, but steroid induced hyperglycemia is present. Cont insulin at this time including carb coverage. Use only correction factor if he becomes hypoglycemic. Blood sugar remains stable at 108 06/13/22 Blood sugar was low this morning Blood sugar remains stable Increased creatinine likely related to sepsis picture. We are still resuscitating him with IVF now and lactate will be rechecked as still >2. Will Repeat BMP after IVF resuscitation in am. Creatinine has been normalized Advised to drink more fluid-kidney function remains stable For underlying mood disorder please continue trazodone, sertraline and BuSpar per home regimen. Heparin for DVT prophylaxis Full code Disposition-to home when improved. Discussed with the quality assurance practice manager, the patient about discharge for tomorrow Patient is agreeable and will plan to discharge after lunch tomorrow He will be discharged home this afternoon Total Time Total Time Spent Total Time Spent (In Minutes): 35 minutes Discharge Plan Discharge Items Patient Disposition: Home - Self-Care Reason For Visit: COUGH, CONGESTION, SOB Discharge Diagnosis: Acute on chronic respiratory failure with hypoxia and hypercapnia, sepsis ,pneumonia, COPD exacerbation Condition on Discharge: Good Activity: Resume your previous activity Non-emergency contact: Primary Care Provider Call non-emergency contact if: you have any medication questions and your symptoms worsen Follow-up/Referrals: Valencia Patel PA-C [Primary Care Provider] - ([facility] to [facility]. ) Diet: Carb Consistent or DM2 Addtl Attending Provider Instructions: Please take precautions to avoid fall Take your medications as advised especially take your oxygen as before Try to avoid any respiratory stimulants as advised Please keep appointment with your healthcare provider No change in new medications except will need to finish the course of antibiotic and Medrol Dosepak Please make an appointment with your primary care doctor within 7 days Pending Studies at Discharge: No Stand-Alone Forms: My [facility] [place] [facility], Smoking Cessation Medications and DC Order Prescriptions: New methylprednisolone [Medrol] 4 mg tablet 4 mg PO UD Qty: 21 0RF Rx Instructions: Day 1: 8 mg PO before breakfast, 4 mg after lunch and after dinner, and 8 mg at bedtime Day 2: 4 mg PO before breakfast, after lunch, and after dinner and 8 mg at bedtime Day 3: 4 mg PO before breakfast, after lunch, after dinner, and at bedtime Day 4: 4 mg PO before breakfast, after lunch, and at bedtime Day 5: 4 mg PO before breakfast and at bedtime Day 6: 4 mg PO before breakfast Continued formoterol fumarate [Perforomist] 20 mcg/2 mL solution for nebulization 20 mcg NEB BID 30 Days Qty: 120 5RF acetylcysteine 100 mg/mL (10 %) solution 2 ml inhalation BID Qty: 100 3RF Rx Instructions: mix with nss albuterol sulfate 90 mcg/actuation Hfa Aerosol Inhaler 2 puff INHALATION Q6H PRN (Reason: Shortness Of Breath Or Wheezing) sertraline 100 mg Tablet 200 mg PO HS trazodone 150 mg Tablet 150 mg PO HS omeprazole 20 mg Capsule,Delayed Release(Dr/Ec) 20 mg PO BID epinephrine [EpiPen] 0.3 mg/0.3 mL Auto-Injector 0.3 mg IM DIRECTED PRN (Reason: Allergic Reaction) cholecalciferol (vitamin D3) [Vitamin D3] 25 mcg (1,000 unit) Capsule 2,000 unit PO QAM cyanocobalamin (vitamin B-12) [Vitamin B-12] 1,000 mcg Tablet 1,000 mcg PO 2XWK Rx Instructions: TAKES ON MON & FRI. Incruse Ellipta 62.5 mcg/actuation Blister With Device 1 inh inhalation DAILY 30 Days Qty: 30 2RF budesonide 0.25 mg/2 mL Suspension For Nebulization 0 mg INHALATION BID Rx Instructions: unknown srtength buspirone 15 mg Tablet 7.5 mg PO HS ascorbic acid (vitamin C) [Vitamin C] 1,000 mg Tablet 1 g PO DAILY Eucerin Cream 1 applic TOPICAL DAILY PRN (Reason: Dry Skin) Probiotic 3 billion cell Capsule 0 mmu cells PO DAILY Rx Instructions: administer with a meal potassium chloride 20 mEq Tablet Extended Release 10 meq PO DAILY Mucinex 200mg 400 mg PO BID ipratropium-albuterol 0.5 mg-3 mg(2.5 mg base)/3 mL solution for nebulization 3 ml NEB QID PRN (Reason: Shortness Of Breath Or Wheezing) Rx Instructions: also q4h prn for sob/wheezing azithromycin 250 mg Tablet 250 mg PO MOWEFR diltiazem HCl [Cardizem CD] 240 mg Capsule,Extended Release 24hr 240 mg PO DAILY roflumilast [Daliresp] 500 mcg Tablet 500 mcg PO DAILY Discharge Orders: Discharge Order (Routine); Ordered 06/15/22 Ordered By: Emeli Sandoval Admission Data Admit Date/Time: 06/11/22 22:02 Attending Provider: Emeli Sandoval Admit Provider: Fidel Reilly Primary Care Provider: Valencia Patel Other Providers: Lisbeth Osuna Other Interventions: Discharge Summary Assessment (RN) Last Done: 06/15/22 13:56
== END 2022-06-15 16:05 | disposition home or self-care (01) | DRG 871 ==
LOC: ED 18:18 → SUATTDRO 22:02 → 4W 22:02

== ENCOUNTER 2022-08-26 15:35 | Inpatient (IN) ==
[2022-08-26] MEDS ORDERED: methylPREDNISolone 125 MG/2 ML VIAL IV STA (16:09)
[2022-08-26] MEDS ORDERED: ALBUT/IPRATROP 3MG/0.5MG NEB 3 ML VIAL NEB STA ×2 (16:09→17:13)
--- NOTE | 2022-08-26 16:14 | Emergency Department Note ---
Impression & Plan Hypoxia, COPD exacerbation, SOB (shortness of breath), Parainfluenza infection, Elevated lactic acid level ED Provider Note NAME: PANTERA AVILEZ AGE: 72 SEX: M : 1950 ARRIVES VIA: Walk-In INFORMANT: [Patient][nursing] ED PROVIDER(S): [Luciano Boogie MD] CHIEF COMPLAINT: Short of breath HISTORY OF PRESENT ILLNESS: The patient is a 72-year-old male with severe emphysema. He typically is on 6 L of oxygen. He has noticed increased cough for a few days. His breathing was not too bad though yesterday. This morning, when he awoke, he was very short of breath and very short of breath with any exertion. His O2 saturation was in the 50s. His oxygen was increased to 10 L to increase the pulse ox. The patient denies fever or pain. He does have nebulizers at home. He has not had leg swelling, no vomiting or diarrhea. No sick contacts. He is not currently on antibiotics or steroids. PMHx/PSHx: See Below SOCIAL HISTORY: See Below. PHYSICAL EXAM: GENERAL: Patient is in no acute distress. HEENT: No acute trauma, normocephalic atraumatic, mucous membranes moist, no nasal congestion. NECK: No stridor, no adenopathy, no meningismus, trachea is midline. LUNGS: Diminished breath sounds with some crackles at the bases especially on the right. No obvious respiratory distress. HEART: Without murmurs gallops or rubs, regular rate and rhythm. Heart tones are distant. ABDOMEN: Soft, nontender, bowel sounds positive, no peritonitis. EXTREMITIES: No cyanosis or edema, full range of motion of all the joints without pain or difficulty, no signs for acute trauma. NEUROLOGIC: Oriented x 3, no acute motor or sensory deficits, no focal weakness. SKIN: No rash, no jaundice, no diaphoresis. DIFFERENTIAL DIAGNOSIS: COPD exacerbation, pneumonia, bronchitis, anemia, CA, electrolyte imbalance, viral illness, among others. EMERGENCY DEPARTMENT COURSE/PROCEDURES: Prior/Outside records reviewed: Most recent discharge summary. ECG per my interpretation: Indication was shortness of breath. The ECG shows a normal sinus rhythm with some baseline artifact. There is some diffuse nonspecific ST change. There is no ST elevation. The rate is 76. No PVCs. The QTc is 461. Continuous Cardiac Monitoring per my interpretation: An order was placed for continuous cardiac monitoring. The monitor shows a rate of 90 with normal sinus rhythm. Critical Care Note: I have personally spent 46 minutes of critical care time in the direct management of this patient. This includes bedside care, interpretation of diagnostic studies, and testing, discussion with consultants, patient, and family members, and other required patient management activities. This 46 minutes is in excess of all separately billable procedures. MEDICAL DECISION MAKING: There is no leukocytosis. A mild anemia was seen however, this has been documented before. Platelet count was slightly low at 129. No renal failure. No significant electrolyte abnormality in need of emergent correction. No concerning liver enzyme elevation. Lactic acid level was elevated consistent with potential infection versus mismatch from his hypoxia. ECG showed a normal sinus rhythm, no obvious ST elevation. Cardiac enzyme testing x1 was not consistent with acute cardiac injury. Procalcitonin level was not elevated making serious bacterial infection less likely. Chest film per my review showed chronic changes from his emphysema/COPD, I saw no focal infiltrate. No pneumothorax. There was no CHF. COVID test returned negative. Parainfluenza test returned positive on his bio fire. The patient was given IV Solu-Medrol, IV cefepime and a 500 cc saline bolus. He was given 2 DuoNebs. The patient seems comfortable on supplemental O2. His symptoms though are primarily an issue with any type of exertion. His O2 saturation had dropped significantly at home. I suspect the parainfluenza infection has flared his COPD and led to his shortness of breath and hypoxia. Given his history, given his current findings, I do think a hospital stay is warranted. I spoke with the patient and case management, the on-call hospitalist was consulted. DISPOSITION: The patient's presentation and findings warrant a hospital stay. Past Med/Surg History Medical History Anemia Anxiety Chronic dyspnea Chronic respiratory failure with hypoxia Cirrhosis of liver COPD (chronic obstructive pulmonary disease) with emphysema COPD exacerbation Depression End stage COPD GERD (gastroesophageal reflux disease) Hearing deficit [place] 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 Dickinson exposure History of COVID-19 05/2020 - hospitalized at [facility] - sob, cough, generalized weakness --> pneumonia; still requiring more supplemental oxygen since having Covid (currently on 6 lpm cont home o2, prior to covid was only on 4 lpm) History of kidney stones History of tobacco abuse HTN (hypertension) On home O2 cont @ 6 lpm Osteoarthritis Palliative care encounter PTSD (post-traumatic stress disorder) Pulmonary nodules Thrombocytopenia Surgical History Dilatation of ureter H/O hernia repair History of appendectomy History of cardiac cath x 2 - most recent [place] 2010 - no stents; also cath years prior at [facility] [place] and no stents History of colonoscopy History of extraction of renal calculus History of tonsillectomy Loss of teeth due to extraction S/P arthroscopic surgery of right knee Family History Mother Colon cancer Father FH: kidney cancer Other Cancer Social History Smoking Status: Former smoker Tobacco Type: Cigarettes Cigarettes Per Day: 40 pack year hx; Second Hand Exposure: No; Hx Alcohol Use: No Hx Substance Use: No Preferred Language: Turkmen Communication Ability: Effective 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 Beliefs That Will Affect Care: None marital status: Current Living Situation: Spouse Current Living Situation Comment: lives with spouse 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 Feels Safe at Home: Yes Assistive Devices: Oxygen - Continuous, Stair Lift and Walker Allergies Allergies Allergy/AdvReac Type Severity Reaction Status Date / Time bee venom protein (honey bee) Allergy Severe ANAPHYLAXIS Verified 06/11/22 23:05 amoxicillin Allergy Intermediate FACIAL Verified 06/11/22 23:05 SWELLING (EYES SWELLED SHUT) clavulanic acid Allergy Intermediate FACIAL Verified 06/11/22 23:05 SWELLING (EYES SWELLED SHUT) pneumococcal vaccine Allergy Intermediate SWELLING Verified 06/11/22 23:05 Ykxikhg-ICX-NyS Reductase Allergy Intermediate CPK'S GO Verified 06/11/22 23:05 Inhibitor THROUGH [Ysjbzax-Ife-Ait Reductase ROOF Inhibitor] prednisone AdvReac Intermediate confusion Verified 06/11/22 23:05 and agitation Home Meds Home Medications Medication Instructions Recorded Confirmed omeprazole 20 mg capsule,delayed 20 mg PO BID 04/08/18 06/11/22 release sertraline 100 mg tablet 200 mg PO HS 04/08/18 06/11/22 trazodone 150 mg tablet 150 mg PO HS 04/08/18 06/11/22 albuterol sulfate 90 mcg/actuation 2 puff inhalation Q6H PRN 07/04/18 06/11/22 aerosol inhaler Shortness Of Breath Or Wheezing epinephrine 0.3 mg/0.3 mL 0.3 mg IM DIRECTED PRN Allergic 08/22/18 06/11/22 injection, auto-injector (EpiPen) Reaction cholecalciferol (vitamin D3) 25 2,000 unit PO QAM 08/19/19 06/11/22 mcg (1,000 unit) capsule (Vitamin D3) cyanocobalamin (vitamin B-12) 1,000 mcg PO 2XWK 12/19/20 06/11/22 1,000 mcg tablet (Vitamin B-12) Mucinex 200mg 400 mg PO BID 06/11/22 06/11/22 ascorbic acid (vitamin C) 1,000 mg 1 g PO DAILY 06/11/22 06/11/22 tablet (Vitamin C) budesonide 0.25 mg/2 mL suspension 0 mg inhalation BID 06/11/22 06/11/22 for nebulization buspirone 15 mg tablet 7.5 mg PO HS 06/11/22 06/11/22 ipratropium 0.5 mg-albuterol 3 mg 3 ml NEB QID PRN Shortness Of 06/11/22 06/11/22 (2.5 mg base)/3 mL nebulization Breath Or Wheezing soln lactobacillus combination no.4 3 0 mmu cells PO DAILY 06/11/22 06/11/22 billion cell capsule (Probiotic) lanolin alcohols-mineral 1 applic topical DAILY PRN Dry Skin 06/11/22 06/11/22 oil-w.petrolatum-ceresin topical cream (Eucerin topical cream) potassium chloride 20 mEq 10 meq PO DAILY 06/11/22 06/11/22 tablet,extended release azithromycin 250 mg tablet 250 mg PO MOWEFR 06/12/22 06/12/22 diltiazem HCl 240 mg 240 mg PO DAILY 06/12/22 06/12/22 capsule,extended release 24 hr (Cardizem CD) roflumilast 500 mcg tablet 500 mcg PO DAILY 06/12/22 06/12/22 (Daliresp) Previous Rx's Medication Instructions Recorded umeclidinium 62.5 mcg/actuation 1 inh inhalation DAILY 30 days #30 09/26/21 blister powder for inhalation ea (Incruse Ellipta) acetylcysteine 100 mg/mL (10 %) 2 ml inhalation BID #100 mL 10/10/21 solution formoterol fumarate 20 mcg/2 mL 20 mcg (2 mL) NEB BID 30 days #120 12/25/21 solution for nebulization mL (Perforomist) methylprednisolone 4 mg tablet 4 mg PO UD #21 tabs 06/14/22 (Medrol) Results & Data (ED) Vital Signs Vital Signs - 24 hr 08/26/22 15:38 08/26/22 16:02 08/26/22 16:40 Temperature 36.5 C Temperature Source Temporal Artery Scan Pulse Rate 90 76 Respiratory Rate 22 Respiratory Effort / Characteristics Non-Labored Spontaneous Respiratory Depth Normal Blood Pressure 101/57 L Blood Pressure Mean 71 Pulse Oximetry 91 Oxygen Delivery Method Nasal Cannula Nasal Cannula Oxygen Flow Rate 6 6 Sepsis Recent Fever Within 48 Hours No Sepsis New/Unexplained Change in Mental Status N/A Sepsis Action Taken by Nursing No Action Required Pulse Oximetry Post Tiitration 94 Home Medications Current Medication List: was personally reviewed by me Laboratory Data Attestation: I reviewed the patient's lab results. 08/26/22 16:00 08/26/22 16:00 Lab Results 08/26/22 08/26/22 08/26/22 Range/Units 15:50 16:00 16:00 WBC 8.71 (4.8-10.8) K/ul RBC 4.03 L (4.70-6.10) M/uL Hgb 12.0 L (14.0-18.0) g/dl Hct 37.2 L (42.0-52.0) % MCV 92.3 (80.0-100.0) fL MCH 29.8 (25.0-34.0) pg MCHC 32.3 (32.0-36.0) g/dL RDW Std Deviation 47.9 H (36.4-46.3) fL RDW Coeff of Ren 14.2 (11.5-14.5) % Plt Count 129 L (130-400) K/uL MPV 10.2 (9.4-12.4) fL Immature Gran % (Auto) 0.3 % Neut % (Auto) 77.3 % Lymph % (Auto) 8.0 % Tyrrell % (Auto) 13.2 % Eos % (Auto) 0.9 % Baso % (Auto) 0.3 % Neut # (Auto) 6.72 H (1.40-6.50) K/uL Lymph # (Auto) 0.70 L (1.2-3.4) K/uL Tyrrell # (Auto) 1.15 H (0.11-0.59) K/uL Eos # (Auto) 0.08 (0-0.50) K/uL Baso # (Auto) 0.03 (0-0.2) K/uL Immature Gran # (Auto) 0.03 (0.01-0.20) K/uL PT Cancelled INR Cancelled APTT Cancelled PTT Ratio Cancelled Sodium (136-145) mmol/L Potassium (3.5-5.1) mmol/L Chloride (98-107) mmol/L Carbon Dioxide (21-32) mmol/L Anion Gap (3-11) BUN (6-23) mg/dl Creatinine (0.6-1.4) mg/dl Est Cr Clr Drug Dosing Est GFR ( Amer) ml/min Est GFR (Non-Af Amer) ml/min BUN/Creatinine Ratio (10-20) Glucose (70-99(Fasting)) mg/dl Lactate (0.4-2.0) mmol/L Calcium (8.5-10.1) mg/dl Magnesium (1.7-2.4) mg/dl Total Bilirubin (0.2-1.0) mg/dl AST (13-39) U/L ALT (7-52) U/L Alkaline Phosphatase (34-104) U/L Troponin I High Sens (0-20) pg/ml Total Protein (6.0-8.3) gm/dl Albumin (3.4-5.0) gm/dl Globulin (2.5-4.0) gm/dl Albumin/Globulin Ratio (0.9-2) Procalcitonin (0-0.5) ng/ml Adenovirus (PCR) Not Detected (NotDetected) B. pertussis DNA (PCR) Not Detected (NotDetected) B.parapertussis DNA PCR Not Detected (NotDetected) C. pneumoniae DNA (PCR) Not Detected (NotDetected) Coronavirus OC43 (PCR) Not Detected (NotDetected) Coronavirus HKU1 (PCR) Not Detected (NotDetected) Coronavirus 229E (PCR) Not Detected (NotDetected) SARS-CoV-2 (PCR) Not Detected (NotDetected) Coronavirus NL63 (PCR) Not Detected (NotDetected) Human Metapneumovir PCR Not Detected (NotDetected) Influenza Type A (PCR) Not Detected (NotDetected) Influenza Type B (PCR) Not Detected (NotDetected) M. pneumoniae (PCR) Not Detected (NotDetected) Parainfluenza 1 (PCR) Not Detected (NotDetected) Parainfluenza 2 (PCR) DETECTED A* (NotDetected) Parainfluenza 3 (PCR) Not Detected (NotDetected) Parainfluenza 4 (PCR) Not Detected (NotDetected) RSV (PCR) Not Detected (NotDetected) Entero/Rhino (PCR) Not Detected (NotDetected) 08/26/22 08/26/22 08/26/22 Range/Units 16:00 16:00 16:00 WBC (4.8-10.8) K/ul RBC (4.70-6.10) M/uL Hgb (14.0-18.0) g/dl Hct (42.0-52.0) % MCV (80.0-100.0) fL MCH (25.0-34.0) pg MCHC (32.0-36.0) g/dL RDW Std Deviation (36.4-46.3) fL RDW Coeff of Ren (11.5-14.5) % Plt Count (130-400) K/uL MPV (9.4-12.4) fL Immature Gran % (Auto) % Neut % (Auto) % Lymph % (Auto) % Tyrrell % (Auto) % Eos % (Auto) % Baso % (Auto) % Neut # (Auto) (1.40-6.50) K/uL Lymph # (Auto) (1.2-3.4) K/uL Tyrrell # (Auto) (0.11-0.59) K/uL Eos # (Auto) (0-0.50) K/uL Baso # (Auto) (0-0.2) K/uL Immature Gran # (Auto) (0.01-0.20) K/uL PT INR APTT PTT Ratio Sodium 139 (136-145) mmol/L Potassium 3.7 (3.5-5.1) mmol/L Chloride 99 (98-107) mmol/L Carbon Dioxide 32 (21-32) mmol/L Anion Gap 8 (3-11) BUN 10 (6-23) mg/dl Creatinine 1.13 (0.6-1.4) mg/dl Est Cr Clr Drug Dosing Not Reportable Est GFR ( Amer) 74.8 ml/min Est GFR (Non-Af Amer) 64.6 ml/min BUN/Creatinine Ratio 8.8 L (10-20) Glucose 103 H (70-99(Fasting)) mg/dl Lactate 2.6 H* (0.4-2.0) mmol/L Calcium 9.5 (8.5-10.1) mg/dl Magnesium 1.8 (1.7-2.4) mg/dl Total Bilirubin 0.4 (0.2-1.0) mg/dl AST 19 (13-39) U/L ALT 11 (7-52) U/L Alkaline Phosphatase 83 (34-104) U/L Troponin I High Sens 5.5 (0-20) pg/ml Total Protein 7.1 (6.0-8.3) gm/dl Albumin 4.2 (3.4-5.0) gm/dl Globulin 2.9 (2.5-4.0) gm/dl Albumin/Globulin Ratio 1.4 (0.9-2) Procalcitonin < 0.05 (0-0.5) ng/ml Adenovirus (PCR) (NotDetected) B. pertussis DNA (PCR) (NotDetected) B.parapertussis DNA PCR (NotDetected) C. pneumoniae DNA (PCR) (NotDetected) Coronavirus OC43 (PCR) (NotDetected) Coronavirus HKU1 (PCR) (NotDetected) Coronavirus 229E (PCR) (NotDetected) SARS-CoV-2 (PCR) (NotDetected) Coronavirus NL63 (PCR) (NotDetected) Human Metapneumovir PCR (NotDetected) Influenza Type A (PCR) (NotDetected) Influenza Type B (PCR) (NotDetected) M. pneumoniae (PCR) (NotDetected) Parainfluenza 1 (PCR) (NotDetected) Parainfluenza 2 (PCR) (NotDetected) Parainfluenza 3 (PCR) (NotDetected) Parainfluenza 4 (PCR) (NotDetected) RSV (PCR) (NotDetected) Entero/Rhino (PCR) (NotDetected) Administered Medications Discontinued Medications Albuterol (Albut/Ipratrop 3mg/0.5mg Neb 3 Ml Vial) 3 ml NEB NOW STA; Protocol Stop: 08/26/22 16:10 Last Admin: 08/26/22 16:24 Dose: 3 ml Documented By: ROMA Cefepime HCl (Maxipime) 2,000 mg in 20 mls @ 5 mls/min IV NOW STA; Protocol Stop: 08/26/22 16:33 Last Admin: 08/26/22 16:48 Dose: 5 mls/min Documented By: ROMA Methylprednisolone (Methylprednisolone 125 Mg/2 Ml Vial) 125 mg IV NOW STA Stop: 08/26/22 16:10 Last Admin: 08/26/22 16:20 Dose: 125 mg Documented By: ROMA Imaging Data Radiologist's Impression: Chest X-Ray 08/26/22 16:01 XR chest 1V portable HISTORY: Dyspnea COMPARISON: Chest 06/13/2022. FINDINGS: No pneumothorax. No pleural effusions. Emphysema with chronic bibasilar interstitial thickening again noted. The heart remains normal in size. The right midlung zone density seen on the prior study has almost completely resolved in the interval. There is a 9 mm nodular density remaining within the right midlung zone. No new focal lung consolidations to suggest pneumonia. No evidence for pulmonary edema. IMPRESSION: 1. Emphysema and bibasilar chronic interstitial thickening. Otherwise, no acute process within the chest. 2. Near-complete resolution of the right midlung zone density. There is a 9 mm nodular density remaining at the right midlung zone. This may represent an area of scarring. An additional [address] follow-up is recommended to ensure complete resolution. ACT 112: Positive. There are findings on this exam that require communication between the performing entity and the patient following Patient Test Result Information Act ([place] Act 112) guidelines. Electronically signed by: Martin Perez M.D. 08/26/2022 5:02 PM Discharge Plan Visit Data Chief Complaint: Shortness of Breath/Dyspnea Stated Complaint: SHORTNESS OF BREATH, CHEST PAIN, DIZZINESS ED Provider: Luciano Boogie Discharge Problem: Hypoxia, COPD exacerbation, SOB (shortness of breath), Parainfluenza infection, Elevated lactic acid level Patient Disposition: Admitted As Inpatient Condition: Fair Forms Stand Alone Forms: [facility] [employer] Prescriptions Prescriptions: No Action formoterol fumarate [Perforomist] 20 mcg/2 mL solution for nebulization 20 mcg NEB BID 30 Days Qty: 120 5RF acetylcysteine 100 mg/mL (10 %) solution 2 ml inhalation BID Qty: 100 3RF Rx Instructions: mix with nss albuterol sulfate 90 mcg/actuation Hfa Aerosol Inhaler 2 puff INHALATION Q6H PRN (Reason: Shortness Of Breath Or Wheezing) sertraline 100 mg Tablet 200 mg PO HS trazodone 150 mg Tablet 150 mg PO HS omeprazole 20 mg Capsule,Delayed Release(Dr/Ec) 20 mg PO BID epinephrine [EpiPen] 0.3 mg/0.3 mL Auto-Injector 0.3 mg IM DIRECTED PRN (Reason: Allergic Reaction) cholecalciferol (vitamin D3) [Vitamin D3] 25 mcg (1,000 unit) Capsule 2,000 unit PO QAM cyanocobalamin (vitamin B-12) [Vitamin B-12] 1,000 mcg Tablet 1,000 mcg PO 2XWK Rx Instructions: TAKES ON MON & FRI. Incruse Ellipta 62.5 mcg/actuation Blister With Device 1 inh inhalation DAILY 30 Days Qty: 30 2RF budesonide 0.25 mg/2 mL Suspension For Nebulization 0 mg INHALATION BID Rx Instructions: unknown srtength buspirone 15 mg Tablet 7.5 mg PO HS ascorbic acid (vitamin C) [Vitamin C] 1,000 mg Tablet 1 g PO DAILY Eucerin Cream 1 applic TOPICAL DAILY PRN (Reason: Dry Skin) Probiotic 3 billion cell Capsule 0 mmu cells PO DAILY Rx Instructions: administer with a meal potassium chloride 20 mEq Tablet Extended Release 10 meq PO DAILY Mucinex 200mg 400 mg PO BID ipratropium-albuterol 0.5 mg-3 mg(2.5 mg base)/3 mL solution for nebulization 3 ml NEB QID PRN (Reason: Shortness Of Breath Or Wheezing) Rx Instructions: also q4h prn for sob/wheezing azithromycin 250 mg Tablet 250 mg PO MOWEFR diltiazem HCl [Cardizem CD] 240 mg Capsule,Extended Release 24hr 240 mg PO DAILY roflumilast [Daliresp] 500 mcg Tablet 500 mcg PO DAILY methylprednisolone [Medrol] 4 mg tablet 4 mg PO UD Qty: 21 0RF Rx Instructions: Day 1: 8 mg PO before breakfast, 4 mg after lunch and after dinner, and 8 mg at bedtime Day 2: 4 mg PO before breakfast, after lunch, and after dinner and 8 mg at bedtime Day 3: 4 mg PO before breakfast, after lunch, after dinner, and at bedtime Day 4: 4 mg PO before breakfast, after lunch, and at bedtime Day 5: 4 mg PO before breakfast and at bedtime Day 6: 4 mg PO before breakfast Referrals Referrals: Valencia Patel PA-C [Primary Care Provider] -
[2022-08-26 16:30] LABS: Basophils # (auto) 0.03 K/uL (0-0.2); Basophils % (auto) 0.3 %; Eosinophils # (auto) 0.08 K/uL (0-0.50); Eosinophils % (auto) 0.9 %; Hematocrit (blood only) 37.2 % (42.0-52.0); Immature Granulocytes # (auto) 0.03 K/uL (0.01-0.20); Immature Granulocytes % (auto) 0.3 %; Mean Corpuscular Hemoglobin 29.8 pg (25.0-34.0); Mean Corpuscular Hgb Conc 32.3 g/dL (32.0-36.0); Mean Corpuscular Volume 92.3 fL (80.0-100.0); Mean Platelet Volume 10.2 fL (9.4-12.4); Monocytes # (auto) 1.15 K/uL (0.11-0.59); Monocytes % (auto) 13.2 %; Neutrophils # (auto) 6.72 K/uL (1.40-6.50); Neutrophils % (auto) 77.3 %; Platelet Count 129 K/uL (130-400); RDW Coefficient of Variation 14.2 % (11.5-14.5); RDW Standard Deviation 47.9 fL (36.4-46.3); Red Blood Count 4.03 M/uL (4.70-6.10); White Blood Count 8.71 K/ul (4.8-10.8)
[2022-08-26] MEDS ORDERED: CEFEPIME 2,000 MG/20 ML VIAL IV STA (16:30)
[2022-08-26 16:43] LABS: Alanine Aminotransferase 11 U/L (7-52); Albumin Globulin Ratio 1.4 (0.9-2); Albumin Level 4.2 gm/dl (3.4-5.0); Alkaline Phosphatase 83 U/L (34-104); Anion Gap 8 (3-11); Aspartate Aminotransferase 19 U/L (13-39); BUN Creatinine Ratio 8.8 (10-20); Bilirubin,Total 0.4 mg/dl (0.2-1.0); Blood Urea Nitrogen 10 mg/dl (6-23); Calcium 9.5 mg/dl (8.5-10.1); Carbon Dioxide 32 mmol/L (21-32); Chloride 99 mmol/L (98-107); Est GFR (African American) 74.8 ml/min; Est GFR (Non-African American) 64.6 ml/min; Globulin 2.9 gm/dl (2.5-4.0); Glucose 103 mg/dl (70-99(Fasting)); Magnesium 1.8 mg/dl (1.7-2.4); Potassium 3.7 mmol/L (3.5-5.1); Sodium 139 mmol/L (136-145); Total Protein 7.1 gm/dl (6.0-8.3)
[2022-08-26 16:50] LABS: Troponin I High Sensitivity 5.5 pg/ml (0-20)
[2022-08-26] MEDS ORDERED: SODIUM CHLORIDE 0.9% 1000ML 500 ML IV ONE (16:55)
--- NOTE | 2022-08-26 17:04 | XRay Report ---
XR chest 1V portable HISTORY: Dyspnea COMPARISON: Chest 06/13/2022. FINDINGS: No pneumothorax. No pleural effusions. Emphysema with chronic bibasilar interstitial thicke dominick again noted. The heart remains normal in size. The right midlung zone density seen on the prior study has almost completely resolved in the interval. There is a 9 mm nodular density remaining withi n the right midlung zone. No new focal lung consolidations to suggest pneumonia. No evidence for pulm onary edema. IMPRESSION: 1. Emphysema and bibasilar chronic interstitial thickening. Otherwise, no acute process within the ch est. 2. Near-complete resolution of the right midlung zone density. There is a 9 mm nodular density remain ing at the right midlung zone. This may represent an area of scarring. An additional [address] follow-up is recommended to ensure complete resolution. ACT 112: Positive. There are findings on this exam that require communication between the performing entity and the patient following Patient Test Result Information Act ([place] Act 112) guidelines. Electronically signed by: Martin Perez M.D. 08/26/2022 5:02 PM
[2022-08-26 17:12] LABS: Adenovirus PCR Not Detected (NotDetected); Bordetella parapertussis PCR Not Detected (NotDetected); Bordetella pertussis PCR Not Detected (NotDetected); Chlamydia pneumoniae PCR Not Detected (NotDetected); Coronavirus 229E PCR Not Detected (NotDetected); Coronavirus CoV-2 (COVID19)PCR Not Detected (NotDetected); Coronavirus HKU1 PCR Not Detected (NotDetected); Coronavirus NL63 PCR Not Detected (NotDetected); Coronavirus OC43PCR Not Detected (NotDetected); Human Metapneumovirus PCR Not Detected (NotDetected); Influenza A PCR Not Detected (NotDetected); Influenza B PCR Not Detected (NotDetected); Mycoplasma pneumoniae PCR Not Detected (NotDetected); Parainfluenza Virus 1 PCR Not Detected (NotDetected); Parainfluenza Virus 3 PCR Not Detected (NotDetected); Parainfluenza Virus 4 PCR Not Detected (NotDetected); Respiratory Syncytial VirusPCR Not Detected (NotDetected); Rhinovirus/Enterovirus PCR Not Detected (NotDetected)
[2022-08-26 17:20] LABS: Parainfluenza Virus 2 PCR DETECTED (NotDetected)
[2022-08-26] MEDS ORDERED: ONDANSETRON INJ 2 MG/ML 2 ML VIAL IV PRN (17:51)
[2022-08-26] MEDS ORDERED: ALUMINUM/MAGNESIUM SUSP 30 ML UDC PO PRN (17:51)
[2022-08-26] MEDS ORDERED: POLYETHYLENE (MIRALAX) 17 GM PACK PO PRN (17:51)
[2022-08-26] MEDS ORDERED: MAGNESIUM HYDROXIDE SUSP 30 ML UDC PO PRN (17:51)
--- NOTE | 2022-08-26 17:58 | History & Physical Report ---
Date of Service August 26, 2022 Assessment & Plan (1) Acute on chronic respiratory failure: (2) Parainfluenza infection: (3) Elevated lactic acid level: (4) Weakness: Plan 72 y/o with acute on chronic respiratory failure and parainfluenza infection. Steroids, continuation of home COPD meds, and cough expectorant; while following labs for continued improvement. May benefit from continuation of palliative medicine for overall goals of care despite him being resistant of this in the past. Acute on chronic respiratory failure: Parainfluenza infection: Elevated Lactate: Weakness: HORAN and SOB x a few days Suspected exacerbating factor includes + for parainfluenza 6LNC at baseline Follows with [facility] pulm Uses Fomoterol at home Uses Ellipta and Ipratropium-albuterol neb PRN at home; continue Takes Roflumilast at home; continue Allergy to Pred; but tolerates Methylpred. Methylprednisone 125 mg in ED; continue 40 mg daily x3 days; followed by 20 mg IV daily x3 days nebs QID + PRN Mucinex PO Lactate 2.6; trend. Does not appear toxic. No leukocytosis PT/OT Disposition: PCP: Dr. Patel with [facility] Code Status: Full Code VTE Prophyalxis: Heparin SQ I spent a total 87 minutes coordinating, documenting, and providing care for this patient excluding time spent in the performance of separately billed services. All of the aforementioned completed while collaborating with the assigned attending physician for a full treatment plan. Please see their addendum for further details. History of Present Illness Chief Complaint: SOB Primary Care Provider: Valencia Patel PA-C Mr. Cantu is a 72 year old male that presented to the ED today after he was experiencing shortness of breath at home. He, at baseline, wears 6LNC supplemental oxygen; he increased his home O2 to 10LNC with improvement. He reports having a sore throat and with productive yellow cough. Pt with recent admission 06/11-06/22 for COPD exacerbation related to PNA. This admission, COVID and RSV negative. CXR showed 1. Emphysema and bibasilar chronic interstitial thickening. Otherwise, no acute process within the chest. 2. Near-complete resolution of the right midlung zone density. There is a 9 mm nodular density remaining at the right midlung zone. This may represent an area of scarring. An additional [address] follow-up is recommended to ensure complete resolution. Covid negative. Biofire sent and positive for parainfluenza which appears to be causing him to be in COPD exacerbation. 2D echo 05-11-21: EF 65-70%, right ventricle systolic function is mildly reduced, grade 1 diastolic dysfunction. Normal right ventricular function. Additional PMH includes: COPD (Home O2), Combined pulmonary emphysema with fibrosis, chronic respiratory failure on 6 L O2, hypertension, depression, PTSD BiPAP nightly. Follows with Dr. Abel as pulmonary opt. Was a 60 pack year history smoker; stopped smoking at age 66. Pt denies chest pain, rashes, BRUNO, dizziness, abdominal pain, N/V/D, edema, recent falls or trauma. Pt will be admitted for further evaluation and management. Please see A/P for further details. Allergies Allergy/AdvReac Type Severity Reaction Status Date / Time bee venom protein (honey bee) Allergy Severe ANAPHYLAXIS Verified 08/26/22 18:23 amoxicillin Allergy Intermediate FACIAL Verified 08/26/22 18:23 SWELLING (EYES SWELLED SHUT) clavulanic acid Allergy Intermediate FACIAL Verified 08/26/22 18:23 SWELLING (EYES SWELLED SHUT) pneumococcal vaccine Allergy Intermediate SWELLING Verified 08/26/22 18:23 [id number] Reductase Allergy Intermediate CPK'S GO Verified 08/26/22 18:23 Inhibitor THROUGH [Poeyrcm-Hrg-Iur Reductase ROOF Inhibitor] prednisone AdvReac Intermediate confusion Verified 08/26/22 18:23 and agitation Home Medications Medication Instructions Recorded Confirmed Type omeprazole 20 mg capsule,delayed 20 mg PO BID 04/08/18 08/26/22 History release sertraline 100 mg tablet 200 mg PO HS 04/08/18 08/26/22 History trazodone 150 mg tablet 150 mg PO HS 04/08/18 08/26/22 History albuterol sulfate 90 mcg/actuation 2 puff inhalation Q6H PRN 07/04/18 08/26/22 History aerosol inhaler Shortness Of Breath Or Wheezing epinephrine 0.3 mg/0.3 mL 0.3 mg IM DIRECTED PRN Allergic 08/22/18 08/26/22 History injection, auto-injector (EpiPen) Reaction cholecalciferol (vitamin D3) 25 2,000 unit PO QAM 08/19/19 08/26/22 History mcg (1,000 unit) capsule (Vitamin D3) cyanocobalamin (vitamin B-12) 1,000 mcg PO 2XWK 12/19/20 08/26/22 History 1,000 mcg tablet (Vitamin B-12) umeclidinium 62.5 mcg/actuation 1 inh inhalation DAILY 30 days #30 09/26/21 08/26/22 Rx blister powder for inhalation ea (Incruse Ellipta) acetylcysteine 100 mg/mL (10 %) 2 ml inhalation BID #100 mL 10/10/21 08/26/22 Rx solution formoterol fumarate 20 mcg/2 mL 20 mcg (2 mL) NEB BID 30 days #120 12/25/21 08/26/22 Rx solution for nebulization mL (Perforomist) ascorbic acid (vitamin C) 1,000 mg 1 g PO DAILY 06/11/22 08/26/22 History tablet (Vitamin C) budesonide 0.25 mg/2 mL suspension 0 mg inhalation BID 06/11/22 08/26/22 History for nebulization buspirone 15 mg tablet 7.5 mg PO HS 06/11/22 08/26/22 History ipratropium 0.5 mg-albuterol 3 mg 3 ml NEB QID PRN Shortness Of 06/11/22 08/26/22 History (2.5 mg base)/3 mL nebulization Breath Or Wheezing soln lactobacillus combination no.4 3 0 mmu cells PO DAILY 06/11/22 08/26/22 History billion cell capsule (Probiotic) lanolin alcohols-mineral 1 applic topical DAILY PRN Dry Skin 06/11/22 08/26/22 History oil-w.petrolatum-ceresin topical cream (Eucerin topical cream) potassium chloride 20 mEq 10 meq PO DAILY 06/11/22 08/26/22 History tablet,extended release azithromycin 250 mg tablet 250 mg PO 3XWK 06/12/22 08/26/22 History diltiazem HCl 240 mg 240 mg PO DAILY 06/12/22 08/26/22 History capsule,extended release 24 hr (Cardizem CD) roflumilast 500 mcg tablet 500 mcg PO DAILY 06/12/22 08/26/22 History (Daliresp) guaifenesin 600 mg tablet, 1,200 mg PO BID 08/26/22 08/26/22 History extended release 12 hr (Mucinex) Past Med/Surg History Medical History (Updated 08/26/22 @ 19:51 by MAYUR Gomez) Anemia Anxiety Chronic dyspnea Chronic respiratory failure with hypoxia Cirrhosis of liver COPD (chronic obstructive pulmonary disease) with emphysema COPD exacerbation Depression End stage COPD GERD (gastroesophageal reflux disease) Hearing deficit BL BRUNO 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 Devol exposure History of COVID-19 05/2020 - hospitalized at [facility] - sob, cough, generalized weakness --> pneumonia; still requiring more supplemental oxygen since having Covid (currently on 6 lpm cont home o2, prior to covid was only on 4 lpm) History of kidney stones History of tobacco abuse HTN (hypertension) On home O2 cont @ 6 lpm Osteoarthritis Palliative care encounter PTSD (post-traumatic stress disorder) Pulmonary nodules Thrombocytopenia Weakness Surgical History Dilatation of ureter H/O hernia repair History of appendectomy History of cardiac cath x 2 - most recent [facility] 2010 - no stents; also cath years prior at [facility] [place] and no stents History of colonoscopy History of extraction of renal calculus History of tonsillectomy Loss of teeth due to extraction S/P arthroscopic surgery of right knee Family History Mother Colon cancer Father FH: kidney cancer Other Cancer Social History Smoking Status: Former smoker Tobacco Type: Cigarettes Cigarettes Per Day: 40 pack year hx; Second Hand Exposure: No; Hx Alcohol Use: No Hx Substance Use: No Preferred Language: Persian Communication Ability: Effective Rn Peritoneal Dialysis Required: No Beliefs That Will Affect Care: None marital status: Current Living Situation: Spouse Current Living Situation Comment: lives with spouse 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 Reilly's addendum for details Results & Data Results & Data Vital Signs (Past 12 Hours) Vital Signs Temp Pulse Resp BP Pulse Ox O2 Del Method O2 Flow Rate 08/26/22 16:40 76 08/26/22 16:02 Nasal Cannula 6 08/26/22 15:38 36.5 C 90 22 101/57 L 91 Nasal Cannula 6 Laboratory Results Short CBC 08/26/22 Range/Units 16:00 WBC 8.71 (4.8-10.8) K/ul Hgb 12.0 L (14.0-18.0) g/dl Hct 37.2 L (42.0-52.0) % Plt Count 129 L (130-400) K/uL BMP 08/26/22 16:00 Sodium 139 Potassium 3.7 Chloride 99 Carbon Dioxide 32 BUN 10 Creatinine 1.13 Glucose 103 H Calcium 9.5 Liver Function 08/26/22 Range/Units 16:00 Total Bilirubin 0.4 (0.2-1.0) mg/dl AST 19 (13-39) U/L ALT 11 (7-52) U/L Alkaline Phosphatase 83 (34-104) U/L Albumin 4.2 (3.4-5.0) gm/dl Diagnostic Findings Chest X-Ray 08/26/22 16:01 XR chest 1V portable HISTORY: Dyspnea COMPARISON: Chest 06/13/2022. FINDINGS: No pneumothorax. No pleural effusions. Emphysema with chronic bibasilar interstitial thickening again noted. The heart remains normal in size. The right midlung zone density seen on the prior study has almost completely resolved in the interval. There is a 9 mm nodular density remaining within the right midlung zone. No new focal lung consolidations to suggest pneumonia. No evidence for pulmonary edema. IMPRESSION: 1. Emphysema and bibasilar chronic interstitial thickening. Otherwise, no acute process within the chest. 2. Near-complete resolution of the right midlung zone density. There is a 9 mm nodular density remaining at the right midlung zone. This may represent an area of scarring. An additional [address] follow-up is recommended to ensure complete resolution. ACT 112: Positive. There are findings on this exam that require communication between the performing entity and the patient following Patient Test Result Information Act ([place] Act 112) guidelines. Electronically signed by: Martin Perez M.D. 08/26/2022 5:02 PM Code Status & VTE Plan Code Status Full Code in the event of cardiac or respiratory arrest VTE Prophylaxis Plan VTE Prophylaxis will be ordered: Yes Supervising Physician Co-Signing Physician Notes 72-year-old male with PMH of COPD on chronic 6 L of oxygen, cirrhosis, HTN, PTSD, depression with anxiety, tobacco abuse, anemia presented to the ED 08/26 with complaint of SPO2 dropping down to 56% at home per patient. Then patient increased his oxygen to 10 L and then was able to wean himself down to 6 L. He also reports feeling weak and hurting all over the body. He also reports runny nose, sore throat, cough with occasional of white mucus. He denies any chest pain or diarrhea. Denies any nausea or vomiting. Reports normal appetite. At ED, labs fairly WNL, respiratory viral panel positive for parainfluenza. Troponin negative. Lactate elevated, will continue with IV fluids. Chest x-ray with no acute process and procalcitonin negative. Patient was given antibiotic in the ED, will monitor him off of antibiotic for now. Patient was minimally wheezing at presentation, will continue with Solu-Medrol dailyto be tapered down. Patient is allergic to prednisone. Also continue with chronic azithromycin therapy. Being managed for acute on chronic respiratory failure/parainfluenza infection and elevated blood lactic acid level. Continue to monitor for any signs and symptoms of infection. Continue with home nebulizations and as needed nebulizations. On examination: GENERAL: Alert and oriented x3. NAD, on 6L NC O2. Appears chroincally ill/frail /older than stated age. HEENT: No pallor, no icterus. Pupils equal, round and reactive to light. Oral mucosa moist. NECK: No JVD, no neck masses. HEART: S1 and S2 heard. Regular rate and rhythm. No murmur, no gallop. RESPIRATORY SYSTEM: Normal AP diameter. No accessory muscle use. mild b/l mid to basal wheezing, no crackles. ABDOMEN: Soft, bowel sounds present, nontender, no distention. CENTRAL NERVOUS SYSTEM: No facial droop. Speech is clear. Obeys simple commands. Moves extremities. EXTREMITIES: No edema, no erythema seen. I have seen and examined the patient and have discussed the case with the provider above. I agree with the assessment and plan as stated.
[2022-08-26 18:36] LABS: INR 1.1 (0.9-1.1); Partial Thromboplastin Ratio 0.9; Partial Thromboplastin Time 25.9 Seconds (21.0-31.0); Prothrombin Time 11.2 Seconds (9.0-12.0)
[2022-08-26] MEDS: ALBUT/IPRATROP 3MG/0.5MG NEB 3 ML VIAL NEB SCH (19:52)
[2022-08-26] MEDS: FORMOTEROL 20 MCG/2 ML VIAL NEB SCH (21:30)
[2022-08-26] MEDS: ACETYLCYSTEINE 10% INHAL SOLN 4 ML **DISPENSED BY RESP. INH SCH (21:30)
[2022-08-26] MEDS: BUDESONIDE 0.25 MG/2 ML VIAL (PULMICORT) INH SCH (21:40)
[2022-08-26] MEDS ORDERED: LOPERAMIDE HCL 2 MG CAP PO STA (21:56)
[2022-08-26] MEDS: guaiFENesin 600 MG TABCR PO SCH (22:00)
[2022-08-26] MEDS: HEPARIN SOD 5,000 UNIT/0.5 ML VIAL SQ SCH (22:00)
[2022-08-26] MEDS: SERTRALINE HCL 100 MG TABLET PO SCH (22:01)
[2022-08-26] MEDS: traZODone HCL 50 MG TAB PO SCH (22:01)
[2022-08-26] MEDS: busPIRone 7.5 MG TAB PO SCH (22:02)
[2022-08-26] MEDS: PANTOprazole 40 MG TAB PO SCH (22:02)
[2022-08-26] MEDS: SODIUM CHLORIDE 0.9% 1000ML 1,000 ML IV SCH (22:23)
[2022-08-26] MEDS ORDERED: SODIUM CHLORIDE 0.9% 500 ML IV SCH (23:00)
[2022-08-26] MEDS: ACETAMINOPHEN 325 MG TAB PO PRN (23:41)
[2022-08-27] MEDS ORDERED: oxyCODONE HCL IR 5 MG TAB (IMMEDIATE RELEASE) PO STA (02:05)
[2022-08-27 03:35] LABS: Appearance Urine Cloudy (Clear); Bacteria Urine Automated Negative (Negative); Bilirubin Urine Negative (Negative); Blood Urine Negative (Negative); Color Urine Yellow; Glucose Urine UA Negative (Negative); Ketones Urine Negative (Negative); Leukocyte Esterase Urine 3+ (Negative); Nitrite Urine Negative (Negative); Protein Urine Trace (Negative); Specific Gravity Urine 1.017 (1.000-1.030); Urobilinogen Urine Negative (Negative); WBC Urine Automated >30 /hpf (0-5); pH Urine 5.5 (4.5-7.5)
[2022-08-27 04:58] LABS: RBC Urine Automated 0-4 /hpf (0-4)
[2022-08-27 05:07] LABS: Hematocrit (blood only) 31.5 % (42.0-52.0); Hemoglobin 10.3 g/dl (14.0-18.0); Mean Corpuscular Hgb Conc 32.7 g/dL (32.0-36.0); Mean Corpuscular Volume 91.8 fL (80.0-100.0); Mean Platelet Volume 10.8 fL (9.4-12.4); Platelet Count 110 K/uL (130-400); RDW Standard Deviation 47.4 fL (36.4-46.3); Red Blood Count 3.43 M/uL (4.70-6.10); White Blood Count 4.35 K/ul (4.8-10.8)
[2022-08-27 05:51] LABS: BUN Creatinine Ratio 12.6 (10-20); Calcium 8.9 mg/dl (8.5-10.1); Creatinine Clr Calc Pharmacy 72.6 ml/min; Est GFR (African American) 92.3 ml/min; Est GFR (Non-African American) 79.7 ml/min; Phosphorus 2.7 mg/dl (2.5-4.9); Potassium 4.7 mmol/L (3.5-5.1)
[2022-08-27] MEDS: SODIUM CHLORIDE 0.9% 1000ML 1,000 ML IV SCH (06:15)
[2022-08-27] MEDS: ALBUT/IPRATROP 3MG/0.5MG NEB 3 ML VIAL NEB SCH ×4 (07:04→19:19)
[2022-08-27] MEDS: ACETYLCYSTEINE 10% INHAL SOLN 4 ML **DISPENSED BY RESP. INH SCH ×2 (07:05→19:19)
[2022-08-27] MEDS: BUDESONIDE 0.25 MG/2 ML VIAL (PULMICORT) INH SCH ×2 (07:05→19:18)
[2022-08-27] MEDS: methylPREDNISolone 40 MG in SYRINGE 0 ML IV SCH (08:08)
[2022-08-27] MEDS: ROFLUMILAST 500 MCG TAB PO SCH (08:08)
[2022-08-27] MEDS: UMECLIDINIUM BROMIDE 62.5MCG/BLISTER 7 PUFFS/INHALER INH SCH (08:09)
[2022-08-27] MEDS: CHOLECALCIFEROL 1,000 UNITS 25 MCG TAB PO SCH (08:09)
[2022-08-27] MEDS: PANTOprazole 40 MG TAB PO SCH ×2 (08:09→21:08)
[2022-08-27] MEDS: CYANOCOBALAMIN (B-12) 500 MCG TABLET PO SCH (08:09)
[2022-08-27] MEDS: dilTIAZem HCL 240 MG CAPCR PO SCH (08:09)
[2022-08-27] MEDS: ASCORBIC ACID 500 MG TAB PO SCH (08:09)
[2022-08-27] MEDS: POTASSIUM CHLORIDE 10 MEQ TABCR PO SCH (08:09)
[2022-08-27] MEDS: HEPARIN SOD 5,000 UNIT/0.5 ML VIAL SQ SCH ×2 (08:10→21:09)
[2022-08-27] MEDS: AZITHROMYCIN 250 MG TAB PO SCH (08:10)
[2022-08-27] MEDS: ADVANCED PROBIOTIC 1250 MG CAPSULE PO SCH (08:10)
[2022-08-27] MEDS: guaiFENesin 600 MG TABCR PO SCH ×2 (08:10→21:08)
[2022-08-27] MEDS ORDERED: KETOROLAC TROMETHAMINE 15 MG/ML VIAL IV PRN (08:58)
--- NOTE | 2022-08-27 09:04 | XRay Report ---
SINGLE VIEW CHEST CLINICAL HISTORY: Cough and dyspnea. Emphysema FINDINGS: An AP, portable, upright chest radiograph is compared to study dated 08/26/2022 and correlat ed with chest CT dated 06/11/2022. The examination is degraded by portable technique and apical lordoti c positioning. The cardiomediastinal silhouette is top normal for projection. Enlargement of the cent ral pulmonary vessels suggests pulmonary artery hypertension. Advanced emphysema and chronic intersti tial thickening is similar to previous. Probable scarring is seen throughout both lungs. Bibasilar ai rspace opacities are similar to previous and likely represents scarring/atelectasis. No large pleural effusion or pneumothorax is seen. The skeletal structures are osteopenic. The bony thorax is grossly intact. IMPRESSION: 1. Advanced emphysema and chronic parenchymal changes as above. 2. Bilateral airspace opacities are similar to previous and likely represents scarring/atelectasis. C orrelate clinically for evidence of a superimposed infectious/inflammatory pneumonitis ACT 112: Negative or not required by law. Electronically signed by: Luciano Prieto M.D. 08/27/2022 9:01 AM
[2022-08-27] MEDS: FORMOTEROL 20 MCG/2 ML VIAL NEB SCH ×2 (09:06→19:18)
--- NOTE | 2022-08-27 10:53 | Electrocardiogram Report ---
Test Reason : Blood Pressure : / mmHG Vent. Rate : 076 BPM Atrial Rate : 076 BPM P-R Int : 148 ms QRS Dur : 074 ms QT Int : 410 ms P-R-T Axes : 034 -18 050 degrees QTc Int : 461 ms Normal sinus rhythm Normal ECG When compared with ECG of 11-JUN-2022 18:36, No significant change was found Confirmed by Peter Mariano ([id number]) on 08/27/2022 10:53:09 AM Referred By: Valencia Patel Confirmed By:Tong Mariano
[2022-08-27] MEDS: HYDROcodone/HOMATROPINE SYRUP 5MG/1.5MG 5ML UDP PO PRN ×2 (11:24→17:50)
--- NOTE | 2022-08-27 13:36 | Hospitalist Progress Note ---
Date of Service August 27, 2022 Assessment & Plan (1) Acute on chronic respiratory failure: (2) Parainfluenza infection: (3) Elevated lactic acid level: (4) Weakness: Plan 72 y/o with acute on chronic respiratory failure and parainfluenza infection. Steroids, continuation of home COPD meds, and cough expectorant; while following labs for continued improvement. May benefit from continuation of palliative medicine for overall goals of care despite him being resistant of this in the past. Acute on chronic respiratory failure: Parainfluenza infection: Elevated Lactate: Weakness: HORAN and SOB x a few days Suspected exacerbating factor includes + for parainfluenza 6LNC at baseline Follows with [facility] pulm Uses Fomoterol at home Uses Ellipta and Ipratropium-albuterol neb PRN at home; continue Takes Roflumilast at home; continue Allergy to Pred; but tolerates Methylpred. Methylprednisone 125 mg in ED; continue 40 mg daily x3 days; followed by 20 mg IV daily x3 days nebs QID + PRN Mucinex PO Lactate 2.6; trend. Does not appear toxic. No leukocytosis PT/OT Complains to have more cough and will provide Hycodan to suppress cough and also to help headache Severe headache Not being controlled with Tylenol and/or intravenous Toradol We will try we will add Hycodan to suppress cough Likely to improve headache as well Disposition: PCP: [facility] Code Status: Full Code VTE Prophyalxis: Heparin SQ Admission and Anticipated Discharge Date Admission Date: August 26, 2022 Subjective 08/27/2022 The patient was seen and examined in medical telemetry unit He was admitted with acute exacerbation of COPD and saturation was around 50s at home Has been complaining of pounding headache and is not responding to Tylenol and/or Toradol Complains to have cough and will provide Hycodan Review of Systems Review of Systems: All systems reviewed and are unremarkable except as noted below Respiratory: Cough without any severe respiratory distress Neurologic: Complains today of severe pounding headache Physical Exam Physical Exam: Lying in bed comfortably Constitutional: well developed, well nourished, + ill appearing and average body habitus Eyes: PERRL, conjunctivae normal, anicteric sclerae ENMT: external ear and nose normal, oropharynx normal Neck: trachea midline, no thyromegaly Respiratory: no respiratory distress Auscultation: + diminished lung sounds and + crackles (Minimal crackles at the bases) Cardiovascular: Rate/Rhythm: regular rate and regular rhythm; not tachycardic Heart Sounds: normal S1 and normal S2; no murmur Extremities: + edema (No edema) Gastrointestinal (Abdomen): Inspection/Auscultation: normal bowel sounds; abdomen not distended Percussion/Palpation: abdomen soft; abdomen nontender Musculoskeletal: No acute arthritis involving any joint Neurologic: Alert, awake and oriented x3 Psychiatric: A+Ox3, euthymic affect Lymphatic: no cervical or axillary lymphadenopathy Results & Data Results & Data Vital Signs (Past 12 Hours) Vital Signs Temp Pulse Pulse Resp BP BP Pulse Ox 08/27/22 11:00 36.7 C 82 18 145/81 H 92 08/27/22 11:03 72 20 92 08/27/22 09:47 08/27/22 07:29 36.6 C 80 18 150/76 H 92 08/27/22 07:15 64 08/27/22 07:07 70 18 93 08/27/22 03:44 37.0 C 85 18 115/70 91 O2 Del Method O2 Flow Rate 08/27/22 11:00 Nasal Cannula 6 08/27/22 11:03 Nasal Cannula 6 08/27/22 09:47 Nasal Cannula 6 08/27/22 07:29 Nasal Cannula 6 08/27/22 07:15 08/27/22 07:07 Nasal Cannula 6 08/27/22 03:44 Nasal Cannula 6 Medications Administered Current Inpatient Medications Acetaminophen (Acetaminophen 325 Mg Tab) 650 mg PO Q4H PRN PRN Reason: Pain or Fever Stop: 09/25/22 17:50 Last Admin: 08/26/22 23:41 Dose: 650 mg Acetylcysteine (Acetylcysteine 10% Inhal Soln 4 Ml Dispensed By Resp.) 2 ml INH BID PEARL Stop: 09/25/22 20:59 Last Admin: 08/27/22 07:05 Dose: Not Given Al Hydrox/Mg Hydrox/Simethicone (Aluminum/Magnesium Susp 30 Ml Udc) 15 ml PO Q4H PRN PRN Reason: Dyspepsia Stop: 09/25/22 17:50 Albuterol (Albut/Ipratrop 3mg/0.5mg Neb 3 Ml Vial) 3 ml NEB QIDR [facility]; Protocol Stop: 09/25/22 18:59 Last Admin: 08/27/22 11:03 Dose: 3 ml Ascorbic Acid (Ascorbic Acid 500 Mg Tab) 1,000 mg PO DAILY [facility] Stop: 09/26/22 08:59 Last Admin: 08/27/22 08:09 Dose: 1,000 mg Azithromycin (Azithromycin 250 Mg Tab) 250 mg PO MoWeFr@0900 [facility] Stop: 09/03/22 08:59 Last Admin: 08/27/22 08:10 Dose: 250 mg Budesonide (Budesonide 0.25 Mg/2 Ml Vial (Pulmicort)) 0 mg INH BID [facility] Stop: 09/25/22 20:59 Last Admin: 08/27/22 07:05 Dose: Not Given Buspirone HCl (Buspirone 7.5 Mg Tab) 7.5 mg PO HS [facility] Stop: 09/25/22 20:59 Last Admin: 08/26/22 22:02 Dose: 7.5 mg Cyanocobalamin (Cyanocobalamin (B-12) 500 Mcg Tablet) 1,000 mcg PO MoFr@0900 [facility] Stop: 09/26/22 08:59 Last Admin: 08/27/22 08:09 Dose: 1,000 mcg Diltiazem HCl (Diltiazem Hcl 240 Mg Capcr) 240 mg PO DAILY [facility] Stop: 09/26/22 08:59 Last Admin: 08/27/22 08:09 Dose: 240 mg Formoterol Fumarate (Formoterol 20 Mcg/2 Ml Vial) 20 mcg NEB BID [facility] Stop: 09/25/22 20:59 Last Admin: 08/27/22 09:06 Dose: 20 mcg Guaifenesin (Guaifenesin 600 Mg Tabcr) 1,200 mg PO BID [facility] Stop: 09/25/22 20:59 Last Admin: 08/27/22 08:10 Dose: 1,200 mg Heparin Sodium (Porcine) (Heparin Sod 5,000 Unit/0.5 Ml Vial) 5,000 units SQ Q12 [facility] Stop: 09/25/22 20:59 Last Admin: 08/27/22 08:10 Dose: 5,000 units Hydrocodone Bit/Homatropine Methylb (Hydrocodone/Homatropine Syrup 5mg/1.5mg 5ml Udp) 5 ml PO Q6H PRN PRN Reason: Cough Stop: 09/10/22 10:24 Last Admin: 08/27/22 11:24 Dose: 5 ml Sodium Chloride (Nss 1000ml) 1,000 mls @ 80 mls/hr IV .[id number] PEARL Stop: 08/27/22 20:29 Last Admin: 08/27/22 06:15 Dose: 80 mls/hr Methylprednisolone 40 mg/ (Syringe) 0.64 mls @ 1.5 mls/min IV DAILY PEARL Stop: 08/30/22 08:00 Last Admin: 08/27/22 08:08 Dose: 1.5 mls/min Methylprednisolone 20 mg/ (Syringe) 0.32 mls @ 1.5 mls/min IV DAILY PEARL Stop: 09/03/22 08:00 Lactobacillus Acidophilus (Advanced Probiotic 1250 Mg Capsule) 2 cap PO DAILY PEARL Stop: 09/26/22 08:59 Last Admin: 08/27/22 08:10 Dose: 2 cap Magnesium Hydroxide (Magnesium Hydroxide Susp 30 Ml Udc) 30 ml PO Q12H PRN PRN Reason: Constipation Stop: 09/25/22 17:50 Ondansetron HCl (Ondansetron Inj 2 Mg/Ml 2 Ml Vial) 4 mg IV Q6H PRN PRN Reason: Nausea Stop: 09/25/22 17:50 Pantoprazole Sodium (Pantoprazole 40 Mg Tab) 40 mg PO BID PEARL Stop: 09/25/22 20:59 Last Admin: 08/27/22 08:09 Dose: 40 mg Polyethylene Glycol (Polyethylene (Miralax) 17 Gm Pack) 17 gm PO DAILY PRN PRN Reason: Constipation Stop: 09/25/22 17:50 Potassium Chloride (Potassium Chloride 10 Meq Tabcr) 10 meq PO DAILY PEARL Stop: 09/26/22 08:59 Last Admin: 08/27/22 08:09 Dose: 10 meq Roflumilast (Roflumilast 500 Mcg Tab) 500 mcg PO DAILY PEARL Stop: 09/26/22 08:59 Last Admin: 08/27/22 08:08 Dose: 500 mcg Sertraline HCl (Sertraline Hcl 100 Mg Tablet) 200 mg PO HS PEARL Stop: 09/25/22 20:59 Last Admin: 08/26/22 22:01 Dose: 200 mg Trazodone HCl (Trazodone Hcl 50 Mg Tab) 150 mg PO HS PEARL Stop: 09/25/22 20:59 Last Admin: 08/26/22 22:01 Dose: 150 mg Umeclidinium Enders (Umeclidinium Enders 62.5mcg/Blister 7 Puffs/Inhaler) 1 puffs INH DAILY PEARL Stop: 09/26/22 08:59 Last Admin: 08/27/22 08:09 Dose: 1 puffs Vitamin D (Cholecalciferol 1,000 Units 25 Mcg Tab) 2,000 units PO QAM PEARL Stop: 09/26/22 08:59 Last Admin: 08/27/22 08:09 Dose: 2,000 units
[2022-08-27] MEDS: SERTRALINE HCL 100 MG TABLET PO SCH (21:07)
[2022-08-27] MEDS: busPIRone 7.5 MG TAB PO SCH (21:09)
[2022-08-27] MEDS: traZODone HCL 50 MG TAB PO SCH (21:13)
[2022-08-28] MEDS: HYDROcodone/HOMATROPINE SYRUP 5MG/1.5MG 5ML UDP PO PRN ×4 (00:02→18:11)
[2022-08-28] MEDS ORDERED: LEVALBUTEROL HCL 1.25 MG/3 ML NEB NEB PRN (01:33)
[2022-08-28] MEDS ORDERED: LEVALBUTEROL 1.25MG/0.5ML NEB ONE (01:43)
[2022-08-28] MEDS: ALBUT/IPRATROP 3MG/0.5MG NEB 3 ML VIAL NEB SCH ×4 (07:15→20:09)
[2022-08-28] MEDS: BUDESONIDE 0.25 MG/2 ML VIAL (PULMICORT) INH SCH ×2 (07:15→20:08)
[2022-08-28 08:34] LABS: BUN Creatinine Ratio 16.7 (10-20); Calcium 9.1 mg/dl (8.5-10.1); Creatinine Clr Calc Pharmacy 67.6 ml/min; Est GFR (African American) 84.7 ml/min; Est GFR (Non-African American) 73.1 ml/min; Magnesium 1.9 mg/dl (1.7-2.4); Potassium 4.1 mmol/L (3.5-5.1)
[2022-08-28] MEDS: methylPREDNISolone 40 MG in SYRINGE 0 ML IV SCH (08:41)
[2022-08-28] MEDS: UMECLIDINIUM BROMIDE 62.5MCG/BLISTER 7 PUFFS/INHALER INH SCH (08:41)
[2022-08-28] MEDS: ASCORBIC ACID 500 MG TAB PO SCH (08:42)
[2022-08-28] MEDS: dilTIAZem HCL 240 MG CAPCR PO SCH (08:42)
[2022-08-28] MEDS: guaiFENesin 600 MG TABCR PO SCH ×2 (08:42→21:10)
[2022-08-28] MEDS: POTASSIUM CHLORIDE 10 MEQ TABCR PO SCH (08:42)
[2022-08-28] MEDS: ADVANCED PROBIOTIC 1250 MG CAPSULE PO SCH (08:42)
[2022-08-28] MEDS: HEPARIN SOD 5,000 UNIT/0.5 ML VIAL SQ SCH ×2 (08:42→21:12)
[2022-08-28] MEDS: PANTOprazole 40 MG TAB PO SCH ×2 (08:43→21:12)
[2022-08-28] MEDS: ROFLUMILAST 500 MCG TAB PO SCH (08:43)
[2022-08-28] MEDS: CHOLECALCIFEROL 1,000 UNITS 25 MCG TAB PO SCH (08:43)
[2022-08-28] MEDS: ACETYLCYSTEINE 10% INHAL SOLN 4 ML **DISPENSED BY RESP. INH SCH ×2 (10:10→20:09)
[2022-08-28] MEDS: FORMOTEROL 20 MCG/2 ML VIAL NEB SCH ×2 (11:05→20:08)
--- NOTE | 2022-08-28 14:31 | Hospitalist Progress Note ---
Date of Service August 28, 2022 Assessment & Plan (1) Acute on chronic respiratory failure: Plan: Has been on 6 L of oxygen at baseline (2) Parainfluenza infection: Plan: Parainfluenza infection is the cause for exacerbation (3) Elevated lactic acid level: (4) Weakness: Plan 72 y/o with acute on chronic respiratory failure and parainfluenza infection. Steroids, continuation of home COPD meds, and cough expectorant; while following labs for continued improvement. May benefit from continuation of palliative medicine for overall goals of care despite him being resistant of this in the past. Acute on chronic respiratory failure: Parainfluenza infection: Elevated Lactate: Weakness: HORAN and SOB x a few days Suspected exacerbating factor includes + for parainfluenza 6LNC at baseline Follows with [facility]m Uses Fomoterol at home Uses Ellipta and Ipratropium-albuterol neb PRN at home; continue Takes Roflumilast at home; continue Allergy to Pred; but tolerates Methylpred. Methylprednisone 125 mg in ED; continue 40 mg daily x3 days; followed by 20 mg IV daily x3 days nebs QID + PRN Mucinex PO Lactate 2.6; trend. Does not appear toxic. No leukocytosis Complains to have more cough and will provide Hycodan to suppress cough and also to help headache Cough is much improved with Hycodan Severe headache Not being controlled with Tylenol and/or intravenous Toradol We will try we will add Hycodan to suppress cough Likely to improve headache as well Headache is improved to Disposition: PCP: [facility] Code Status: Full Code VTE Prophyalxis: Heparin SQ Get PT and OT evaluation Possible discharge in a day or 2 Admission and Anticipated Discharge Date Admission Date: August 26, 2022 Subjective 08/27/2022 The patient was seen and examined in medical telemetry unit He was admitted with acute exacerbation of COPD and saturation was around 50s at home Has been complaining of pounding headache and is not responding to Tylenol and/or Toradol Complains to have cough and will provide Hycodan 07/31/2022 The patient was seen and examined in medical telemetry unit He has been feeling better but he still has significant shortness of breath with minimal exertion His cough and headache are improved Review of Systems Review of Systems: All systems reviewed and are unremarkable except as noted below Respiratory: Cough without any severe respiratory distress Neurologic: Complains today of severe pounding headache Physical Exam Physical Exam: Lying in bed comfortably Constitutional: well developed, well nourished, + ill appearing and average body habitus Eyes: PERRL, conjunctivae normal, anicteric sclerae ENMT: external ear and nose normal, oropharynx normal Neck: trachea midline, no thyromegaly Respiratory: no respiratory distress Auscultation: + diminished lung sounds and + crackles (Minimal crackles at the bases) Cardiovascular: Rate/Rhythm: regular rate and regular rhythm; not tachycardic Heart Sounds: normal S1 and normal S2; no murmur Extremities: + edema (No edema) Gastrointestinal (Abdomen): Inspection/Auscultation: normal bowel sounds; abdomen not distended Percussion/Palpation: abdomen soft; abdomen nontender Musculoskeletal: No acute arthritis involving any joint Psychiatric: A+Ox3, euthymic affect Lymphatic: no cervical or axillary lymphadenopathy Results & Data Results & Data Vital Signs (Past 12 Hours) Vital Signs Temp Pulse Pulse Resp BP Pulse Ox O2 Del Method 08/28/22 11:05 90 22 93 Nasal Cannula 08/28/22 10:59 36.7 C 89 20 129/73 93 High Flow Nasal Cannula 08/28/22 09:53 High Flow Nasal Cannula 08/28/22 07:22 37.0 C 82 18 126/66 91 High Flow Nasal Cannula 08/28/22 07:18 79 20 93 Nasal Cannula 08/28/22 07:11 75 08/28/22 05:09 118/69 08/28/22 03:48 36.5 C 80 18 99/59 L 93 Nasal Cannula O2 Flow Rate 08/28/22 11:05 6 08/28/22 10:59 6 08/28/22 09:53 6 08/28/22 07:22 6 08/28/22 07:18 6 08/28/22 07:11 08/28/22 05:09 08/28/22 03:48 6 Laboratory Results [facility] 08/28/22 08:00 Sodium 137 Potassium 4.1 Chloride 101 Carbon Dioxide 32 BUN 17 Creatinine 1.02 Glucose 114 H Calcium 9.1 Medications Administered Current Inpatient Medications Acetaminophen (Acetaminophen 325 Mg Tab) 650 mg PO Q4H PRN PRN Reason: Pain or Fever Stop: 09/25/22 17:50 Last Admin: 08/26/22 23:41 Dose: 650 mg Acetylcysteine (Acetylcysteine 10% Inhal Soln 4 Ml Dispensed By Resp.) 2 ml INH BID [facility] Stop: 09/25/22 20:59 Last Admin: 08/28/22 10:10 Dose: Not Given Al Hydrox/Mg Hydrox/Simethicone (Aluminum/Magnesium Susp 30 Ml Udc) 15 ml PO Q4H PRN PRN Reason: Dyspepsia Stop: 09/25/22 17:50 Albuterol (Albut/Ipratrop 3mg/0.5mg Neb 3 Ml Vial) 3 ml NEB QIDR [facility]; Protocol Stop: 09/25/22 18:59 Last Admin: 08/28/22 11:05 Dose: Not Given Ascorbic Acid (Ascorbic Acid 500 Mg Tab) 1,000 mg PO DAILY [facility] Stop: 09/26/22 08:59 Last Admin: 08/28/22 08:42 Dose: 1,000 mg Azithromycin (Azithromycin 250 Mg Tab) 250 mg PO MoWeFr@0900 [facility] Stop: 09/03/22 08:59 Last Admin: 08/27/22 08:10 Dose: 250 mg Budesonide (Budesonide 0.25 Mg/2 Ml Vial (Pulmicort)) 0 mg INH BID [facility] Stop: 09/25/22 20:59 Last Admin: 08/28/22 07:15 Dose: 0.25 mg Buspirone HCl (Buspirone 7.5 Mg Tab) 7.5 mg PO HS [facility] Stop: 09/25/22 20:59 Last Admin: 08/27/22 21:09 Dose: 7.5 mg Cyanocobalamin (Cyanocobalamin (B-12) 500 Mcg Tablet) 1,000 mcg PO MoFr@0900 [facility] Stop: 09/26/22 08:59 Last Admin: 08/27/22 08:09 Dose: 1,000 mcg Diltiazem HCl (Diltiazem Hcl 240 Mg Capcr) 240 mg PO DAILY [facility] Stop: 09/26/22 08:59 Last Admin: 08/28/22 08:42 Dose: 240 mg Formoterol Fumarate (Formoterol 20 Mcg/2 Ml Vial) 20 mcg NEB BID [facility] Stop: 09/25/22 20:59 Last Admin: 08/28/22 11:05 Dose: 20 mcg Guaifenesin (Guaifenesin 600 Mg Tabcr) 1,200 mg PO BID [facility] Stop: 09/25/22 20:59 Last Admin: 08/28/22 08:42 Dose: 1,200 mg Heparin Sodium (Porcine) (Heparin Sod 5,000 Unit/0.5 Ml Vial) 5,000 units SQ Q12 [facility] Stop: 09/25/22 20:59 Last Admin: 08/28/22 08:42 Dose: 5,000 units Hydrocodone Bit/Homatropine Methylb (Hydrocodone/Homatropine Syrup 5mg/1.5mg 5ml Udp) 5 ml PO Q6H PRN PRN Reason: Cough Stop: 09/10/22 10:24 Last Admin: 08/28/22 12:21 Dose: 5 ml Methylprednisolone 40 mg/ (Syringe) 0.64 mls @ 1.5 mls/min IV DAILY [facility] Stop: 08/30/22 08:00 Last Admin: 08/28/22 08:41 Dose: 1.5 mls/min Methylprednisolone 20 mg/ (Syringe) 0.32 mls @ 1.5 mls/min IV DAILY [facility] Stop: 09/03/22 08:00 Lactobacillus Acidophilus (Advanced Probiotic 1250 Mg Capsule) 2 cap PO DAILY [facility] Stop: 09/26/22 08:59 Last Admin: 08/28/22 08:42 Dose: 2 cap Levalbuterol HCl (Levalbuterol Hcl 1.25 Mg/3 Ml Neb) 1.25 mg NEB Q4H PRN; Protocol PRN Reason: Shortness Of Breath Or Wheezing Stop: 09/27/22 01:44 Magnesium Hydroxide (Magnesium Hydroxide Susp 30 Ml Udc) 30 ml PO Q12H PRN PRN Reason: Constipation Stop: 09/25/22 17:50 Ondansetron HCl (Ondansetron Inj 2 Mg/Ml 2 Ml Vial) 4 mg IV Q6H PRN PRN Reason: Nausea Stop: 09/25/22 17:50 Pantoprazole Sodium (Pantoprazole 40 Mg Tab) 40 mg PO BID [facility] Stop: 09/25/22 20:59 Last Admin: 08/28/22 08:43 Dose: 40 mg Polyethylene Glycol (Polyethylene (Miralax) 17 Gm Pack) 17 gm PO DAILY PRN PRN Reason: Constipation Stop: 09/25/22 17:50 Potassium Chloride (Potassium Chloride 10 Meq Tabcr) 10 meq PO DAILY [facility] Stop: 09/26/22 08:59 Last Admin: 08/28/22 08:42 Dose: 10 meq Roflumilast (Roflumilast 500 Mcg Tab) 500 mcg PO DAILY [facility] Stop: 09/26/22 08:59 Last Admin: 08/28/22 08:43 Dose: 500 mcg Sertraline HCl (Sertraline Hcl 100 Mg Tablet) 200 mg PO [facility] Stop: 09/25/22 20:59 Last Admin: 08/27/22 21:07 Dose: 200 mg Trazodone HCl (Trazodone Hcl 50 Mg Tab) 150 mg PO [facility] Stop: 09/25/22 20:59 Last Admin: 08/27/22 21:13 Dose: 150 mg Umeclidinium [place] (Umeclidinium [place] 62.5mcg/Blister 7 Puffs/Inhaler) 1 puffs INH DAILY [facility] Stop: 09/26/22 08:59 Last Admin: 08/28/22 08:41 Dose: 1 puffs Vitamin D (Cholecalciferol 1,000 Units 25 Mcg Tab) 2,000 units PO QAM [facility] Stop: 09/26/22 08:59 Last Admin: 08/28/22 08:43 Dose: 2,000 units
[2022-08-28] MEDS: SERTRALINE HCL 100 MG TABLET PO SCH (21:11)
[2022-08-28] MEDS: busPIRone 7.5 MG TAB PO SCH (21:11)
[2022-08-28] MEDS: traZODone HCL 50 MG TAB PO SCH (21:11)
[2022-08-29] MEDS: HYDROcodone/HOMATROPINE SYRUP 5MG/1.5MG 5ML UDP PO PRN ×4 (00:21→22:54)
[2022-08-29 06:45] LABS: Basophils # (auto) 0.02 K/uL (0-0.2); Basophils % (auto) 0.2 %; Eosinophils # (auto) 0.03 K/uL (0-0.50); Eosinophils % (auto) 0.3 %; Hematocrit (blood only) 32.1 % (42.0-52.0); Hemoglobin 10.6 g/dl (14.0-18.0); Immature Granulocytes # (auto) 0.05 K/uL (0.01-0.20); Immature Granulocytes % (auto) 0.4 %; Lymphocytes # (auto) 1.64 K/uL (1.2-3.4); Lymphocytes % (auto) 14.7 %; Mean Corpuscular Hemoglobin 29.8 pg (25.0-34.0); Mean Corpuscular Volume 90.2 fL (80.0-100.0); Mean Platelet Volume 10.3 fL (9.4-12.4); Monocytes # (auto) 0.93 K/uL (0.11-0.59); Monocytes % (auto) 8.3 %; Neutrophils # (auto) 8.47 K/uL (1.40-6.50); Neutrophils % (auto) 76.1 %; Platelet Count 121 K/uL (130-400); RDW Coefficient of Variation 14.1 % (11.5-14.5); RDW Standard Deviation 47.1 fL (36.4-46.3); Red Blood Count 3.56 M/uL (4.70-6.10); White Blood Count 11.14 K/ul (4.8-10.8)
[2022-08-29] MEDS: BUDESONIDE 0.25 MG/2 ML VIAL (PULMICORT) INH SCH ×2 (07:15→20:15)
[2022-08-29] MEDS: FORMOTEROL 20 MCG/2 ML VIAL NEB SCH ×2 (07:16→20:15)
[2022-08-29] MEDS: ACETYLCYSTEINE 10% INHAL SOLN 4 ML **DISPENSED BY RESP. INH SCH ×2 (07:17→23:48)
[2022-08-29] MEDS: ALBUT/IPRATROP 3MG/0.5MG NEB 3 ML VIAL NEB SCH ×4 (07:17→20:15)
[2022-08-29 07:31] LABS: BUN Creatinine Ratio 16.8 (10-20); Calcium 9.4 mg/dl (8.5-10.1); Creatinine Clr Calc Pharmacy 64.4 ml/min; Phosphorus 2.9 mg/dl (2.5-4.9); Potassium 4.2 mmol/L (3.5-5.1)
[2022-08-29] MEDS: methylPREDNISolone 40 MG in SYRINGE 0 ML IV SCH (08:47)
[2022-08-29] MEDS: dilTIAZem HCL 240 MG CAPCR PO SCH (08:48)
[2022-08-29] MEDS: AZITHROMYCIN 250 MG TAB PO SCH (08:48)
[2022-08-29] MEDS: ADVANCED PROBIOTIC 1250 MG CAPSULE PO SCH (08:48)
[2022-08-29] MEDS: guaiFENesin 600 MG TABCR PO SCH ×2 (08:48→22:54)
[2022-08-29] MEDS: ROFLUMILAST 500 MCG TAB PO SCH (08:48)
[2022-08-29] MEDS: PANTOprazole 40 MG TAB PO SCH ×2 (08:48→22:53)
[2022-08-29] MEDS: CHOLECALCIFEROL 1,000 UNITS 25 MCG TAB PO SCH (08:48)
[2022-08-29] MEDS: ASCORBIC ACID 500 MG TAB PO SCH (08:48)
[2022-08-29] MEDS: POTASSIUM CHLORIDE 10 MEQ TABCR PO SCH (08:48)
[2022-08-29] MEDS: UMECLIDINIUM BROMIDE 62.5MCG/BLISTER 7 PUFFS/INHALER INH SCH (08:48)
[2022-08-29] MEDS: HEPARIN SOD 5,000 UNIT/0.5 ML VIAL SQ SCH (08:49)
[2022-08-29] MEDS: traMADol HCL 50 MG TABLET PO PRN (13:33)
--- NOTE | 2022-08-29 16:16 | Hospitalist Progress Note ---
Date of Service August 29, 2022 Assessment & Plan (1) Acute on chronic respiratory failure: Plan: Has been on 6 L of oxygen at baseline (2) Parainfluenza infection: Plan: Parainfluenza infection is the cause for exacerbation (3) Elevated lactic acid level: (4) Weakness: Plan 72 y/o with acute on chronic respiratory failure and parainfluenza infection. Steroids, continuation of home COPD meds, and cough expectorant; while following labs for continued improvement. May benefit from continuation of palliative medicine for overall goals of care despite him being resistant of this in the past. Acute on chronic respiratory failure: Parainfluenza infection: Elevated Lactate: Weakness: HORAN and SOB x a few days Suspected exacerbating factor includes + for parainfluenza 6LNC at baseline Follows with [facility] Uses Fomoterol at home Uses Ellipta and Ipratropium-albuterol neb PRN at home; continue Takes Roflumilast at home; continue Allergy to Pred; but tolerates Methylpred. Methylprednisone 125 mg in ED; continue 40 mg daily x3 days; followed by 20 mg IV daily x3 days nebs QID + PRN Mucinex PO Lactate 2.6; trend. Does not appear toxic. No leukocytosis Complains to have more cough and will provide Hycodan to suppress cough and also to help headache Cough is much improved with Hycodan Still remains significantly short of breath with minimal exertion-oxygen requirements is at baseline at 6 L/min at rest Not yet ready to be discharged Acute nosebleed Right side of the nose Stopped following form pressure May have black stool if swallowed posterior nasal bleeding Severe headache- Not being controlled with Tylenol and/or intravenous Toradol We will try we will add Hycodan to suppress cough Likely to improve headache as well Headache is not any better-we will try small dose of Ultram We will get an ABG to see the CO2 level Disposition: PCP: Dr. Patel with [facility] Code Status: Full Code VTE Prophyalxis: Heparin SQ Get PT and OT evaluation Possible discharge in a day or 2 Admission and Anticipated Discharge Date Admission Date: August 26, 2022 Subjective 08/27/2022 The patient was seen and examined in medical telemetry unit He was admitted with acute exacerbation of COPD and saturation was around 50s at home Has been complaining of pounding headache and is not responding to Tylenol and/or Toradol Complains to have cough and will provide Hycodan 08/28/2022 The patient was seen and examined in medical telemetry unit He has been feeling better but he still has significant shortness of breath with minimal exertion His cough and headache are improved 08/29/2022 Patient was seen and examined in medical telemetry unit He has had acute nosebleed since this morning which was stopped by form pressure for about 3 minutes Still complains severe headache but the cough seems to be improving Has significant shortness of breath with minimal exertion Review of Systems Review of Systems: All systems reviewed and are unremarkable except as noted below Respiratory: Cough without any severe respiratory distress Neurologic: Complains today of severe pounding headache Physical Exam Physical Exam: Lying in bed comfortably Constitutional: well developed, well nourished, + ill appearing and average body habitus Eyes: PERRL, conjunctivae normal, anicteric sclerae ENMT: external ear and nose normal, oropharynx normal Neck: trachea midline, no thyromegaly Respiratory: no respiratory distress Auscultation: + diminished lung sounds and + crackles (Minimal crackles at the bases) Cardiovascular: Rate/Rhythm: regular rate and regular rhythm; not tachycardic Heart Sounds: normal S1 and normal S2; no murmur Extremities: + edema (No edema) Gastrointestinal (Abdomen): Inspection/Auscultation: normal bowel sounds; abdomen not distended Percussion/Palpation: abdomen soft; abdomen nontender Musculoskeletal: No acute arthritis involving any joint Neurologic: normal touch/pain/proprioception and moves all extremities; no focal motor deficits Psychiatric: A+Ox3, euthymic affect Lymphatic: no cervical or axillary lymphadenopathy Results & Data Results & Data Vital Signs (Past 12 Hours) Vital Signs Temp Pulse Pulse Resp BP Pulse Ox O2 Del Method 08/29/22 14:55 36.7 C 83 18 126/74 97 High Flow Nasal Cannula 08/29/22 14:42 76 18 92 Nasal Cannula 08/29/22 11:31 36.6 C 82 18 133/76 93 High Flow Nasal Cannula 08/29/22 11:10 76 18 92 Nasal Cannula 08/29/22 11:04 High Flow Nasal Cannula 08/29/22 07:45 36.3 C L 76 18 143/80 H 90 High Flow Nasal Cannula 08/29/22 07:28 77 03/22/23 07:18 87 22 90 Nasal Cannula O2 Flow Rate 08/29/22 14:55 6 08/29/22 14:42 6 08/29/22 11:31 6 08/29/22 11:10 6 08/29/22 11:04 6 08/29/22 07:45 6 08/29/22 07:28 08/29/22 07:18 6 Laboratory Results Short CBC 08/29/22 Range/Units 06:20 WBC 11.14 H (4.8-10.8) K/ul Hgb 10.6 L (14.0-18.0) g/dl Hct 32.1 L (42.0-52.0) % Plt Count 121 L (130-400) K/uL BMP 08/29/22 06:20 Sodium 138 Potassium 4.2 Chloride 97 L Carbon Dioxide 36 H BUN 18 Creatinine 1.07 Glucose 116 H Calcium 9.4 Medications Administered Current Inpatient Medications Acetaminophen (Acetaminophen 325 Mg Tab) 650 mg PO Q4H PRN PRN Reason: Pain or Fever Stop: 09/25/22 17:50 Last Admin: 08/26/22 23:41 Dose: 650 mg Acetylcysteine (Acetylcysteine 10% Inhal Soln 4 Ml Dispensed By Resp.) 2 ml INH BID [facility] Stop: 09/25/22 20:59 Last Admin: 08/29/22 07:17 Dose: Not Given Al Hydrox/Mg Hydrox/Simethicone (Aluminum/Magnesium Susp 30 Ml Udc) 15 ml PO Q4H PRN PRN Reason: Dyspepsia Stop: 09/25/22 17:50 Albuterol (Albut/Ipratrop 3mg/0.5mg Neb 3 Ml Vial) 3 ml NEB QIDR [facility]; Protocol Stop: 09/25/22 18:59 Last Admin: 08/29/22 14:42 Dose: 3 ml Ascorbic Acid (Ascorbic Acid 500 Mg Tab) 1,000 mg PO DAILY [facility] Stop: 09/26/22 08:59 Last Admin: 08/29/22 08:48 Dose: 1,000 mg Azithromycin (Azithromycin 250 Mg Tab) 250 mg PO MoWeFr@0900 [facility] Stop: 09/03/22 08:59 Last Admin: 08/29/22 08:48 Dose: 250 mg Budesonide (Budesonide 0.25 Mg/2 Ml Vial (Pulmicort)) 0 mg INH BID [facility] Stop: 09/25/22 20:59 Last Admin: 08/29/22 07:15 Dose: 0.25 mg Buspirone HCl (Buspirone 7.5 Mg Tab) 7.5 mg PO HS [facility] Stop: 09/25/22 20:59 Last Admin: 08/28/22 21:11 Dose: 7.5 mg Cyanocobalamin (Cyanocobalamin (B-12) 500 Mcg Tablet) 1,000 mcg PO MoFr@0900 [facility] Stop: 09/26/22 08:59 Last Admin: 08/27/22 08:09 Dose: 1,000 mcg Diltiazem HCl (Diltiazem Hcl 240 Mg Capcr) 240 mg PO DAILY [facility] Stop: 09/26/22 08:59 Last Admin: 08/29/22 08:48 Dose: 240 mg Formoterol Fumarate (Formoterol 20 Mcg/2 Ml Vial) 20 mcg NEB BID [facility] Stop: 09/25/22 20:59 Last Admin: 08/29/22 07:16 Dose: 20 mcg Guaifenesin (Guaifenesin 600 Mg Tabcr) 1,200 mg PO BID [facility] Stop: 09/25/22 20:59 Last Admin: 08/29/22 08:48 Dose: 1,200 mg Heparin Sodium (Porcine) (Heparin Sod 5,000 Unit/0.5 Ml Vial) 5,000 units SQ Q12 [facility] Stop: 09/25/22 20:59 Last Admin: 08/29/22 08:49 Dose: 5,000 units Hydrocodone Bit/Homatropine Methylb (Hydrocodone/Homatropine Syrup 5mg/1.5mg 5ml Udp) 5 ml PO Q6H PRN PRN Reason: Cough Stop: 09/10/22 10:24 Last Admin: 08/29/22 14:02 Dose: 5 ml Methylprednisolone 40 mg/ (Syringe) 0.64 mls @ 1.5 mls/min IV DAILY [facility] Stop: 08/30/22 08:00 Last Admin: 08/29/22 08:47 Dose: 1.5 mls/min Methylprednisolone 20 mg/ (Syringe) 0.32 mls @ 1.5 mls/min IV DAILY [facility] Stop: 09/03/22 08:00 Lactobacillus Acidophilus (Advanced Probiotic 1250 Mg Capsule) 2 cap PO DAILY [facility] Stop: 09/26/22 08:59 Last Admin: 08/29/22 08:48 Dose: 2 cap Levalbuterol HCl (Levalbuterol Hcl 1.25 Mg/3 Ml Neb) 1.25 mg NEB Q4H PRN; Protocol PRN Reason: Shortness Of Breath Or Wheezing Stop: 09/27/22 01:44 Magnesium Hydroxide (Magnesium Hydroxide Susp 30 Ml Udc) 30 ml PO Q12H PRN PRN Reason: Constipation Stop: 09/25/22 17:50 Ondansetron HCl (Ondansetron Inj 2 Mg/Ml 2 Ml Vial) 4 mg IV Q6H PRN PRN Reason: Nausea Stop: 09/25/22 17:50 Pantoprazole Sodium (Pantoprazole 40 Mg Tab) 40 mg PO BID [facility] Stop: 09/25/22 20:59 Last Admin: 08/29/22 08:48 Dose: 40 mg Polyethylene Glycol (Polyethylene (Miralax) 17 Gm Pack) 17 gm PO DAILY PRN PRN Reason: Constipation Stop: 09/25/22 17:50 Potassium Chloride (Potassium Chloride 10 Meq Tabcr) 10 meq PO DAILY [facility] Stop: 09/26/22 08:59 Last Admin: 08/29/22 08:48 Dose: 10 meq Roflumilast (Roflumilast 500 Mcg Tab) 500 mcg PO DAILY [facility] Stop: 09/26/22 08:59 Last Admin: 08/29/22 08:48 Dose: 500 mcg Sertraline HCl (Sertraline Hcl 100 Mg Tablet) 200 mg PO HS [facility] Stop: 09/25/22 20:59 Last Admin: 08/28/22 21:11 Dose: 200 mg Tramadol HCl (Tramadol Hcl 50 Mg Tablet) 25 mg PO Q6H PRN PRN Reason: Headache Stop: 09/28/22 13:18 Last Admin: 08/29/22 13:33 Dose: 25 mg Trazodone HCl (Trazodone Hcl 50 Mg Tab) 150 mg PO HS [facility] Stop: 09/25/22 20:59 Last Admin: 08/28/22 21:11 Dose: 150 mg Umeclidinium [place] (Umeclidinium [place] 62.5mcg/Blister 7 Puffs/Inhaler) 1 puffs INH DAILY [facility] Stop: 09/26/22 08:59 Last Admin: 08/29/22 08:48 Dose: 1 puffs Vitamin D (Cholecalciferol 1,000 Units 25 Mcg Tab) 2,000 units PO QAM [facility] Stop: 09/26/22 08:59 Last Admin: 08/29/22 08:48 Dose: 2,000 units
[2022-08-29 16:41] LABS: Allen Test pos (Pos); Base Excess ABG 8.3 mEq/L (-9-1.8); HCO3 ABG 33 mmol/L (19-24); Oxygen Saturation ABG 97.9 % (90-95); PCO2 ABG 47 mmHg (35-46); PO2 ABG 87 mmHg (80-95); pH ABG 7.46 (7.35-7.45)
[2022-08-29] MEDS: traZODone HCL 50 MG TAB PO SCH (22:53)
[2022-08-29] MEDS: busPIRone 7.5 MG TAB PO SCH (22:54)
[2022-08-29] MEDS: SERTRALINE HCL 100 MG TABLET PO SCH (22:55)
[2022-08-30] MEDS: ACETYLCYSTEINE 10% INHAL SOLN 4 ML **DISPENSED BY RESP. INH SCH ×2 (06:57→20:28)
[2022-08-30] MEDS: FORMOTEROL 20 MCG/2 ML VIAL NEB SCH ×2 (06:57→20:27)
[2022-08-30] MEDS: BUDESONIDE 0.25 MG/2 ML VIAL (PULMICORT) INH SCH ×2 (06:57→20:26)
[2022-08-30] MEDS: ALBUT/IPRATROP 3MG/0.5MG NEB 3 ML VIAL NEB SCH ×4 (07:05→20:28)
[2022-08-30] MEDS: dilTIAZem HCL 240 MG CAPCR PO SCH (07:37)
[2022-08-30] MEDS: ROFLUMILAST 500 MCG TAB PO SCH (07:37)
[2022-08-30] MEDS: guaiFENesin 600 MG TABCR PO SCH ×2 (07:37→21:13)
[2022-08-30] MEDS: PANTOprazole 40 MG TAB PO SCH ×2 (07:37→21:13)
[2022-08-30] MEDS: UMECLIDINIUM BROMIDE 62.5MCG/BLISTER 7 PUFFS/INHALER INH SCH (07:38)
[2022-08-30] MEDS: ASCORBIC ACID 500 MG TAB PO SCH (07:38)
[2022-08-30] MEDS: CHOLECALCIFEROL 1,000 UNITS 25 MCG TAB PO SCH (07:38)
[2022-08-30] MEDS: ADVANCED PROBIOTIC 1250 MG CAPSULE PO SCH (07:38)
[2022-08-30] MEDS: POTASSIUM CHLORIDE 10 MEQ TABCR PO SCH (07:38)
[2022-08-30] MEDS: HYDROcodone/HOMATROPINE SYRUP 5MG/1.5MG 5ML UDP PO PRN ×2 (07:44→21:13)
[2022-08-30] MEDS: traMADol HCL 50 MG TABLET PO PRN (07:46)
--- NOTE | 2022-08-30 17:31 | Hospitalist Progress Note ---
Date of Service August 30, 2022 Assessment & Plan (1) Acute on chronic respiratory failure: Plan: Has been on 6 L of oxygen at baseline (2) Parainfluenza infection: Plan: Parainfluenza infection is the cause for exacerbation (3) Elevated lactic acid level: (4) Weakness: Plan 72-year-old male with PMH of COPD on chronic 6 L of oxygen, cirrhosis, HTN, PTSD, depression with anxiety, tobacco abuse, anemia presented to the ED 08/26 with complaint of SPO2 dropping down to 56% at home per patient. Then patient increased his oxygen to 10 L and then was able to wean himself down to 6 L. He also reports feeling weak and hurting all over the body. He also reports runny nose, sore throat, cough with occasional of white mucus. He denies any chest pain or diarrhea. Denies any nausea or vomiting. Reports normal appetite. He is being managed for the following: Acute on chronic respiratory failure: Parainfluenza infection: Elevated Lactate: Weakness: HORAN and SOB x few days [employer] Suspected exacerbating factor includes + for parainfluenza 6LNC at baseline Follows with [facility] Continue as needed and scheduled nebs, continue home inhalers. Continue with Mucomyst. Continue with home Roflumilast and azithromycin MWF. Patient is allergic to prednisone, currently being tapered down on methylprednisone. Patient reports feeling better, on exam decreasing wheezing, poor breath sounds on both lungs which appears to be his baseline. Reports improving cough with Hycodan. Continue with Mucinex, Tessalon Perles. Still short of breath with minimal exertion, ongoing PT/OT eval. Increased blood lactic acid level: Elevated at presentation, status post IV fluid, resolved. Acute nosebleed: Noted on right nose on 08/29, heparin subcu held, reports improvement today. Severe headache: Noted on 08/29, not improved with Tylenol and/or intravenous Toradol hence Hycodan added to suppress cough, improving headache today. Disposition: PCP: [facility]. [facility] Code Status: Full Code VTE Prophyalxis: Heparin SQ PT/OT to eval, CM to assist with DC planning. Expect in next 1 to 2 days. Admission and Anticipated Discharge Date Admission Date: August 26, 2022 Subjective Patient seen and examined at bedside as a follow-up of acute on chronic respiratory failure, acute exacerbation of COPD likely secondary to parainfluenza infection. Patient was lying in bed, on 6 L oxygen via nasal cannula, NAD, reports feeling better, reports decreasing cough, denies chest pain or sore throat, denies headache or dizziness, still desaturates easily with activity. Otherwise reports eating okay and moving bowels okay. Reports improvement in his headache and epistaxis that was present yesterday. Physical Exam Physical Exam: GENERAL: Alert and oriented x3. NAD, on 6L NC O2. Appears chroincally ill/frail/older than stated age. HEENT: No pallor, no icterus. Pupils equal, round and reactive to light. Oral mucosa moist. NECK: No JVD, no neck masses. HEART: S1 and S2 heard. Regular rate and rhythm. No murmur, no gallop. RESPIRATORY SYSTEM: Normal AP diameter. No accessory muscle use. occ b/l mid to basal wheezing, no crackles. decreased breath sounds. ABDOMEN: Soft, bowel sounds present, nontender, no distention. CENTRAL NERVOUS SYSTEM: No facial droop. Speech is clear. Obeys simple commands. Moves extremities. EXTREMITIES: No edema, no erythema seen. Results & Data Results & Data Vital Signs (Past 12 Hours) Vital Signs Temp Pulse Pulse Resp BP Pulse Ox O2 Del Method 08/30/22 15:31 36.9 C 85 20 110/66 91 Nasal Cannula 08/30/22 15:13 84 20 92 Nasal Cannula 08/30/22 15:07 87 08/30/22 12:15 36.6 C 86 20 101/62 90 Room Air 08/30/22 11:21 Nasal Cannula 08/30/22 08:35 75 08/30/22 07:04 86 20 94 Nasal Cannula 08/30/22 06:49 36.4 C L 84 18 136/78 94 Nasal Cannula O2 Flow Rate 08/30/22 15:31 6 08/30/22 15:13 6 08/30/22 15:07 08/30/22 12:15 08/30/22 11:21 6 08/30/22 08:35 08/30/22 07:04 6 08/30/22 06:49 5
[2022-08-30] MEDS: SERTRALINE HCL 100 MG TABLET PO SCH (21:13)
[2022-08-30] MEDS: busPIRone 7.5 MG TAB PO SCH (21:13)
[2022-08-30] MEDS: traZODone HCL 50 MG TAB PO SCH (21:13)
[2022-08-31] MEDS ORDERED: LORazepam 2 MG/1 ML VIAL IV PRN (03:40)
[2022-08-31 04:25] LABS: HCO3 ABG 43 mmol/L (19-24); Oxygen Saturation ABG 94.7 % (90-95); PCO2 ABG 66 mmHg (35-46); PO2 ABG 65 mmHg (80-95); pH ABG 7.42 (7.35-7.45)
[2022-08-31 04:27] LABS: Allen Test Pos (Pos)
[2022-08-31 04:32] LABS: Basophils # (auto) 0.02 K/uL (0-0.2); Basophils % (auto) 0.2 %; Eosinophils # (auto) 0.26 K/uL (0-0.50); Eosinophils % (auto) 2.7 %; Hematocrit (blood only) 32.2 % (42.0-52.0); Hemoglobin 10.4 g/dl (14.0-18.0); Immature Granulocytes # (auto) 0.04 K/uL (0.01-0.20); Immature Granulocytes % (auto) 0.4 %; Lymphocytes # (auto) 1.93 K/uL (1.2-3.4); Lymphocytes % (auto) 20.3 %; Mean Corpuscular Hemoglobin 29.6 pg (25.0-34.0); Mean Corpuscular Hgb Conc 32.3 g/dL (32.0-36.0); Mean Corpuscular Volume 91.7 fL (80.0-100.0); Mean Platelet Volume 10.7 fL (9.4-12.4); Monocytes # (auto) 1.07 K/uL (0.11-0.59); Monocytes % (auto) 11.2 %; Neutrophils # (auto) 6.21 K/uL (1.40-6.50); Neutrophils % (auto) 65.2 %; Platelet Count 118 K/uL (130-400); RDW Coefficient of Variation 14.4 % (11.5-14.5); RDW Standard Deviation 48.5 fL (36.4-46.3); Red Blood Count 3.51 M/uL (4.70-6.10); White Blood Count 9.53 K/ul (4.8-10.8)
[2022-08-31 04:57] LABS: Albumin Globulin Ratio 1.4 (0.9-2); Albumin Level 3.6 gm/dl (3.4-5.0); BUN Creatinine Ratio 16.5 (10-20); Bilirubin,Total 0.3 mg/dl (0.2-1.0); Calcium 9.2 mg/dl (8.6-10.3); Est GFR (African American) 68.9 ml/min; Est GFR (Non-African American) 59.5 ml/min; Globulin 2.5 gm/dl (2.5-4.0); Magnesium 1.9 mg/dl (1.7-2.4); Phosphorus 4.6 mg/dl (2.5-4.9); Potassium 4.4 mmol/L (3.5-5.1); Total Protein 6.1 gm/dl (6.0-8.3)
[2022-08-31] MEDS ORDERED: MAGNESIUM SULFATE / D5W 1 GM/100 ML BAG IV ONE (05:19)
[2022-08-31] MEDS ORDERED: SODIUM CHLORIDE 0.9% 1000ML 1,000 ML IV ONE (05:40)
--- NOTE | 2022-08-31 06:13 | Communication Note ---
Date of Service: August 31, 2022 Notified by RN of possible GTC seizures witnessed by [employer] OPERATOR around 2 AM. No tongue biting or incontinence noted. Patient little confused after episode after being roused by staff. Patient told staff that he "always shakes at home." Patient denies headache symptoms. AP ? New onset seizures Seizure precautions, Ativan as needed for active seizures DC homatropine antitussive given potential neurologic side effects Hold parameters for patient's neuropsychotropic meds for sedation confusion CT head now EEG, MRI brain for seizure work-up Neurology consult possible new onset seizures
[2022-08-31] MEDS: FORMOTEROL 20 MCG/2 ML VIAL NEB SCH ×2 (07:10→19:32)
[2022-08-31] MEDS: ACETYLCYSTEINE 10% INHAL SOLN 4 ML **DISPENSED BY RESP. INH SCH ×2 (07:10→19:23)
[2022-08-31] MEDS: BUDESONIDE 0.25 MG/2 ML VIAL (PULMICORT) INH SCH ×2 (07:10→19:32)
[2022-08-31] MEDS: ALBUT/IPRATROP 3MG/0.5MG NEB 3 ML VIAL NEB SCH ×4 (07:43→19:50)
[2022-08-31] MEDS: POTASSIUM CHLORIDE 10 MEQ TABCR PO SCH (08:45)
[2022-08-31] MEDS: ROFLUMILAST 500 MCG TAB PO SCH (08:45)
[2022-08-31] MEDS: methylPREDNISolone 20 MG in SYRINGE 0 ML IV SCH (08:45)
[2022-08-31] MEDS: guaiFENesin 600 MG TABCR PO SCH ×2 (08:46→22:07)
[2022-08-31] MEDS: dilTIAZem HCL 240 MG CAPCR PO SCH (08:46)
[2022-08-31] MEDS: ADVANCED PROBIOTIC 1250 MG CAPSULE PO SCH (08:46)
[2022-08-31] MEDS: AZITHROMYCIN 250 MG TAB PO SCH (08:47)
[2022-08-31] MEDS: CYANOCOBALAMIN (B-12) 500 MCG TABLET PO SCH (08:47)
[2022-08-31] MEDS: ASCORBIC ACID 500 MG TAB PO SCH (08:47)
[2022-08-31] MEDS: CHOLECALCIFEROL 1,000 UNITS 25 MCG TAB PO SCH (08:47)
[2022-08-31] MEDS: PANTOprazole 40 MG TAB PO SCH ×2 (08:48→22:08)
[2022-08-31] MEDS: UMECLIDINIUM BROMIDE 62.5MCG/BLISTER 7 PUFFS/INHALER INH SCH (08:49)
[2022-08-31] MEDS ORDERED: methylPREDNISolone 40 MG in SYRINGE 0 ML IV SCH (09:00)
[2022-08-31] MEDS: traMADol HCL 50 MG TABLET PO PRN (09:00)
[2022-08-31] MEDS ORDERED: GADOBUTROL 65ML VIAL IV ONE (11:07)
--- NOTE | 2022-08-31 11:34 | Magnetic Resonance Report ---
MR brain seizure wo/w con CLINICAL HISTORY: sz TECHNIQUE: Multiplanar and multisequence MR images of the brain were obtained prior to and following administration of gadolinium contrast. Comparison: Comparison is made to MRI brain 06/26/2014 FINDINGS: No abnormal restricted diffusion is identified. Foci of T2 and FLAIR hyperintensity are noted in the paraventricular areas consistent with chronic small vessel ischemic disease. Ex vacuo ventriculomegal y and sulcal enlargement is noted compatible with diffuse encephalomalacia. No mass or abnormal enhan cement is seen. There is no mass effect or midline shift. There is no evidence of acute intraparenchy mal hemorrhage. No extra axial fluid collections are seen. The corpus callosum, pituitary gland, and cerebellar tonsils appear grossly unremarkable. High-resolution images of the temporal lobes do not d emonstrate any signal abnormality. Flow voids of the major intracranial arterial vessels are identified. The imaged portions of the para nasal sinuses, mastoid air cells, and orbits are unremarkable. IMPRESSION: No acute abnormality. In particular, no edema in the temporal lobes bilaterally in this postictal pat ient. ACT 112: Negative or not required by law. Electronically signed by: Rosendo Dejesus M.D. 08/31/2022 11:33 AM
--- NOTE | 2022-08-31 15:05 | Hospitalist Progress Note ---
Date of Service August 31, 2022 Assessment & Plan (1) Acute on chronic respiratory failure: Plan: Has been on 6 L of oxygen at baseline (2) Parainfluenza infection: Plan: Parainfluenza infection is the cause for exacerbation (3) Elevated lactic acid level: (4) Weakness: Plan 72-year-old male with PMH of COPD on chronic 6 L of oxygen, cirrhosis, HTN, PTSD, depression with anxiety, tobacco abuse, anemia presented to the ED 08/26 with complaint of SPO2 dropping down to 56% at home per patient. Then patient increased his oxygen to 10 L and then was able to wean himself down to 6 L. He also reports feeling weak and hurting all over the body. He also reports runny nose, sore throat, cough with occasional of white mucus. He denies any chest pain or diarrhea. Denies any nausea or vomiting. Reports normal appetite. He is being managed for the following: Likely seizure: new onset, noted around 2 am of 08/31/22 (refer to communication note). Pt denies such involuntary movement of his limbs in the past when trying to confirm at bedside exam. Homatropine discontinued. MRI brain w/ no acute findings. EEG - await. Neurology consulted, await recs. Acute on chronic respiratory failure: Parainfluenza infection: Elevated Lactate: Weakness: HORAN and SOB x few days [employer] Suspected exacerbating factor includes + for parainfluenza 6LNC at baseline Follows with [facility] pulm Continue as needed and scheduled nebs, continue home inhalers. Continue with Mucomyst. Continue with home Roflumilast and azithromycin MWF. Patient is allergic to prednisone, currently being tapered down on methylprednisone. Patient reports feeling better, on exam decreasing wheezing, poor breath sounds on both lungs which appears to be his baseline. With dry cough, symptomatic management. Continue with Mucinex, Tessalon Perles. PT/OT eval Increased blood lactic acid level: Elevated at presentation, status post IV fluid, resolved. Acute nosebleed: Noted on right nose on 08/29, heparin subcu held, reports improvement. Severe headache: Resolved Disposition: PCP: [facility] Code Status: Full Code VTE Prophyalxis: Heparin SQ PT/OT to eval, CM to assist with DC planning. Pending neuro eval; pt improving resp laureano. Admission and Anticipated Discharge Date Admission Date: August 26, 2022 Subjective Patient seen and examined at bedside as a follow-up of acute on chronic respiratory failure, acute exacerbation of COPD likely secondary to parainfluenza infection. Patient was lying in bed, on 6 L oxygen via nasal cannula, NAD, had an episode of possible GTC seizure witnessed by [employer] TEAM MEMBER around 2 AM of 08/31/2022, no tongue biting or incontinence noted but patient was noted to be confused after the episode. Homatroprine antitussive discontinued, as needed Ativan was placed for seizure activity, and neurology was consulted along with neuro imagings ordered. Patient does reports dry cough but otherwise reports improvement in his activity with his drop in oxygen saturation improving close to his baseline. Patient reports eating okay and moving bowels okay. Patient denies any headache and also reports improving epistaxis. Physical Exam Physical Exam: GENERAL: Alert and oriented x3. NAD, on 6L NC O2. Appears chroincally ill/frail/older than stated age. HEENT: No pallor, no icterus. Pupils equal, round and reactive to light. Oral mucosa moist. NECK: No JVD, no neck masses. HEART: S1 and S2 heard. Regular rate and rhythm. No murmur, no gallop. RESPIRATORY SYSTEM: Normal AP diameter. No accessory muscle use. No wheezing, no crackles. decreased breath sounds. ABDOMEN: Soft, bowel sounds present, nontender, no distention. CENTRAL NERVOUS SYSTEM: No facial droop. Speech is clear. Obeys simple commands. Moves extremities. EXTREMITIES: No edema, no erythema seen. Results & Data Results & Data Vital Signs (Past 12 Hours) Vital Signs Temp Pulse Pulse Resp BP Pulse Ox O2 Del Method 08/31/22 07:00 76 08/31/22 09:00 Nasal Cannula 08/31/22 07:41 36.5 C 83 18 113/55 L 94 High Flow Nasal Cannula 08/31/22 07:10 94 H 18 98 Nasal Cannula O2 Flow Rate 08/31/22 07:00 08/31/22 09:00 6 08/31/22 07:41 6.5 08/31/22 07:10 7
--- NOTE | 2022-08-31 17:48 | Electroencephalogram ---
EEG Procedure Note Date of Service August 31, 2022 Start / End Times Start Time: 11:51 End Time: 12:11 Referring Physician Albert Roldan MD History Reportedly, the patient had a convulsive event overnight. This EEG is ordered to evaluate for epileptogenic activity. Home Medication List Medication Instructions Recorded Confirmed Type omeprazole 20 mg capsule,delayed 20 mg PO BID 04/08/18 08/26/22 History release sertraline 100 mg tablet 200 mg PO HS 04/08/18 08/26/22 History trazodone 150 mg tablet 150 mg PO HS 04/08/18 08/26/22 History albuterol sulfate 90 mcg/actuation 2 puff inhalation Q6H PRN 07/04/18 08/26/22 History aerosol inhaler Shortness Of Breath Or Wheezing epinephrine 0.3 mg/0.3 mL 0.3 mg IM DIRECTED PRN Allergic 08/22/18 08/26/22 History injection, auto-injector (EpiPen) Reaction cholecalciferol (vitamin D3) 25 2,000 unit PO QAM 08/19/19 08/26/22 History mcg (1,000 unit) capsule (Vitamin D3) cyanocobalamin (vitamin B-12) 1,000 mcg PO 2XWK 12/19/20 08/26/22 History 1,000 mcg tablet (Vitamin B-12) umeclidinium 62.5 mcg/actuation 1 inh inhalation DAILY 30 days #30 09/26/21 08/26/22 Rx blister powder for inhalation ea (Incruse Ellipta) acetylcysteine 100 mg/mL (10 %) 2 ml inhalation BID #100 mL 10/10/21 08/26/22 Rx solution formoterol fumarate 20 mcg/2 mL 20 mcg (2 mL) NEB BID 30 days #120 12/25/21 08/26/22 Rx solution for nebulization mL (Perforomist) ascorbic acid (vitamin C) 1,000 mg 1 g PO DAILY 06/11/22 08/26/22 History tablet (Vitamin C) budesonide 0.25 mg/2 mL suspension 0 mg inhalation BID 06/11/22 08/26/22 History for nebulization buspirone 15 mg tablet 7.5 mg PO HS 06/11/22 08/26/22 History ipratropium 0.5 mg-albuterol 3 mg 3 ml NEB QID PRN Shortness Of 06/11/22 08/26/22 History (2.5 mg base)/3 mL nebulization Breath Or Wheezing soln lactobacillus combination no.4 3 0 mmu cells PO DAILY 06/11/22 08/26/22 History billion cell capsule (Probiotic) lanolin alcohols-mineral 1 applic topical DAILY PRN Dry Skin 06/11/22 08/26/22 History oil-w.petrolatum-ceresin topical cream (Eucerin topical cream) potassium chloride 20 mEq 10 meq PO DAILY 06/11/22 08/26/22 History tablet,extended release azithromycin 250 mg tablet 250 mg PO 3XWK 06/12/22 08/26/22 History diltiazem HCl 240 mg 240 mg PO DAILY 06/12/22 08/26/22 History capsule,extended release 24 hr (Cardizem CD) roflumilast 500 mcg tablet 500 mcg PO DAILY 06/12/22 08/26/22 History (Daliresp) guaifenesin 600 mg tablet, 1,200 mg PO BID 08/26/22 08/26/22 History extended release 12 hr (Mucinex) Inpatient Medication List Acetaminophen (Acetaminophen 325 Mg Tab) 650 mg PO Q4H PRN PRN Reason: Pain or Fever Stop: 09/25/22 17:50 Last Admin: 08/26/22 23:41 Dose: 650 mg Documented By: KJL Acetylcysteine (Acetylcysteine 10% Inhal Soln 4 Ml Dispensed By Resp.) 2 ml INH BID PEARL Stop: 09/25/22 20:59 Last Admin: 08/31/22 07:10 Dose: 2 ml Documented By: Admin: 08/30/22 20:28 Dose: 2 ml Documented By: Admin: 08/30/22 06:57 Dose: Not Given Documented By: Admin: 08/29/22 23:48 Dose: Not Given Documented By: Admin: 08/29/22 07:17 Dose: Not Given Documented By: Admin: 08/28/22 20:09 Dose: Not Given Documented By: Admin: 08/28/22 10:10 Dose: Not Given Documented By: Admin: 08/27/22 19:19 Dose: Not Given Documented By: Admin: 08/27/22 07:05 Dose: Not Given Documented By: Admin: 08/26/22 21:30 Dose: 2 ml Documented By: DENISSE Albuterol (Albut/Ipratrop 3mg/0.5mg Neb 3 Ml Vial) 3 ml NEB QIDR PEARL; Protocol Stop: 09/25/22 18:59 Last Admin: 08/31/22 15:59 Dose: 3 ml Documented By: Admin: 08/31/22 11:45 Dose: Not Given Documented By: Admin: 08/31/22 07:43 Dose: Not Given Documented By: Admin: 08/30/22 20:28 Dose: Not Given Documented By: Admin: 08/30/22 15:12 Dose: 3 ml Documented By: Admin: 08/30/22 10:21 Dose: 3 ml Documented By: Admin: 08/30/22 07:05 Dose: Not Given Documented By: Admin: 08/29/22 20:15 Dose: 3 ml Documented By: Admin: 08/29/22 14:42 Dose: 3 ml Documented By: Admin: 08/29/22 11:09 Dose: 3 ml Documented By: Admin: 08/29/22 07:17 Dose: Not Given Documented By: Admin: 08/28/22 20:09 Dose: Not Given Documented By: Admin: 08/28/22 15:39 Dose: 3 ml Documented By: Admin: 08/28/22 11:05 Dose: Not Given Documented By: Admin: 08/28/22 07:15 Dose: 3 ml Documented By: Admin: 08/27/22 19:19 Dose: Not Given Documented By: Admin: 08/27/22 15:16 Dose: 3 ml Documented By: Admin: 08/27/22 11:03 Dose: 3 ml Documented By: Admin: 08/27/22 07:04 Dose: 3 ml Documented By: Admin: 08/26/22 19:52 Dose: Not Given Documented By: CS Ascorbic Acid (Ascorbic Acid 500 Mg Tab) 1,000 mg PO DAILY PEARL Stop: 09/26/22 08:59 Last Admin: 08/31/22 08:47 Dose: 1,000 mg Documented By: Admin: 08/30/22 07:38 Dose: 1,000 mg Documented By: Admin: 08/29/22 08:48 Dose: 1,000 mg Documented By: Admin: 08/28/22 08:42 Dose: 1,000 mg Documented By: Admin: 08/27/22 08:09 Dose: 1,000 mg Documented By: AGATHA Azithromycin (Azithromycin 250 Mg Tab) 250 mg PO MoWeFr@0900 PEARL Stop: 09/03/22 08:59 Last Admin: 08/31/22 08:47 Dose: 250 mg Documented By: Admin: 08/29/22 08:48 Dose: 250 mg Documented By: Admin: 08/27/22 08:10 Dose: 250 mg Documented By: AGATHA Budesonide (Budesonide 0.25 Mg/2 Ml Vial (Pulmicort)) 0 mg INH BID PEARL Stop: 09/25/22 20:59 Last Admin: 08/31/22 07:10 Dose: 0.25 mg Documented By: Admin: 08/30/22 20:26 Dose: 0.25 mg Documented By: Admin: 08/30/22 06:57 Dose: 0.25 mg Documented By: Admin: 08/29/22 20:15 Dose: 0.25 mg Documented By: Admin: 08/29/22 07:15 Dose: 0.25 mg Documented By: Admin: 08/28/22 20:08 Dose: 0.25 mg Documented By: Admin: 08/28/22 07:15 Dose: 0.25 mg Documented By: Admin: 08/27/22 19:18 Dose: 0.25 mg Documented By: Admin: 08/27/22 07:05 Dose: Not Given Documented By: Admin: 08/26/22 21:40 Dose: 0.25 mg Documented By: DENISSE Buspirone HCl (Buspirone 7.5 Mg Tab) 7.5 mg PO HS PEARL Stop: 09/25/22 20:59 Last Admin: 08/30/22 21:13 Dose: 7.5 mg Documented By: Admin: 08/29/22 22:54 Dose: 7.5 mg Documented By: Admin: 08/28/22 21:11 Dose: 7.5 mg Documented By: Admin: 08/27/22 21:09 Dose: 7.5 mg Documented By: Admin: 08/26/22 22:02 Dose: 7.5 mg Documented By: PORTIA Cyanocobalamin (Cyanocobalamin (B-12) 500 Mcg Tablet) 1,000 mcg PO MoFr@0900 PEARL Stop: 09/26/22 08:59 Last Admin: 08/31/22 08:47 Dose: 1,000 mcg Documented By: Admin: 08/27/22 08:09 Dose: 1,000 mcg Documented By: AGATHA Diltiazem HCl (Diltiazem Hcl 240 Mg Capcr) 240 mg PO DAILY PEARL Stop: 09/26/22 08:59 Last Admin: 08/31/22 08:46 Dose: 240 mg Documented By: Admin: 08/30/22 07:37 Dose: 240 mg Documented By: Admin: 08/29/22 08:48 Dose: 240 mg Documented By: Admin: 08/28/22 08:42 Dose: 240 mg Documented By: Admin: 08/27/22 08:09 Dose: 240 mg Documented By: AGATHA Formoterol Fumarate (Formoterol 20 Mcg/2 Ml Vial) 20 mcg NEB BID PEARL Stop: 09/25/22 20:59 Last Admin: 08/31/22 07:10 Dose: 20 mcg Documented By: Admin: 08/30/22 20:27 Dose: 20 mcg Documented By: Admin: 08/30/22 06:57 Dose: 20 mcg Documented By: Admin: 08/29/22 20:15 Dose: 20 mcg Documented By: Admin: 08/29/22 07:16 Dose: 20 mcg Documented By: Admin: 08/28/22 20:08 Dose: 20 mcg Documented By: Admin: 08/28/22 11:05 Dose: 20 mcg Documented By: Admin: 08/27/22 19:18 Dose: 20 mcg Documented By: Admin: 08/27/22 09:06 Dose: 20 mcg Documented By: Admin: 08/26/22 21:30 Dose: 20 mcg Documented By: DENISSE Guaifenesin (Guaifenesin 600 Mg Tabcr) 1,200 mg PO BID PEARL Stop: 09/25/22 20:59 Last Admin: 08/31/22 08:46 Dose: 1,200 mg Documented By: Admin: 08/30/22 21:13 Dose: 1,200 mg Documented By: Admin: 08/30/22 07:37 Dose: 1,200 mg Documented By: Admin: 08/29/22 22:54 Dose: 1,200 mg Documented By: Admin: 08/29/22 08:48 Dose: 1,200 mg Documented By: Admin: 08/28/22 21:10 Dose: 1,200 mg Documented By: Admin: 08/28/22 08:42 Dose: 1,200 mg Documented By: Admin: 08/27/22 21:08 Dose: 1,200 mg Documented By: Admin: 08/27/22 08:10 Dose: 1,200 mg Documented By: Admin: 08/26/22 22:00 Dose: 1,200 mg Documented By: PORTIA Heparin Sodium (Porcine) (Heparin Sod 5,000 Unit/0.5 Ml Vial) 5,000 units SQ Q12 PEARL Stop: 09/25/22 20:59 Last Admin: 08/29/22 08:49 Dose: 5,000 units Documented By: Admin: 08/28/22 21:12 Dose: 5,000 units Documented By: Admin: 08/28/22 08:42 Dose: 5,000 units Documented By: Admin: 08/27/22 21:09 Dose: 5,000 units Documented By: Admin: 08/27/22 08:10 Dose: 5,000 units Documented By: Admin: 08/26/22 22:00 Dose: 5,000 units Documented By: PORTIA Methylprednisolone 20 mg/ (Syringe) 0.32 mls @ 1.5 mls/min IV DAILY PEARL Stop: 09/03/22 08:00 Last Admin: 08/31/22 08:45 Dose: 1.5 mls/min Documented By: FARHAD Sodium Chloride (Nss 1000ml) 1,000 mls @ 75 mls/hr IV .[id number] ONE Stop: 08/31/22 18:59 Last Admin: 08/31/22 06:22 Dose: 75 mls/hr Documented By: JEN Lactobacillus Acidophilus (Advanced Probiotic 1250 Mg Capsule) 2 cap PO DAILY PEARL Stop: 09/26/22 08:59 Last Admin: 08/31/22 08:46 Dose: 2 cap Documented By: Admin: 08/30/22 07:38 Dose: 2 cap Documented By: Admin: 08/29/22 08:48 Dose: 2 cap Documented By: Admin: 08/28/22 08:42 Dose: 2 cap Documented By: Admin: 08/27/22 08:10 Dose: 2 cap Documented By: AGATHA Pantoprazole Sodium (Pantoprazole 40 Mg Tab) 40 mg PO BID PEARL Stop: 09/25/22 20:59 Last Admin: 08/31/22 08:48 Dose: 40 mg Documented By: Admin: 08/30/22 21:13 Dose: 40 mg Documented By: Admin: 08/30/22 07:37 Dose: 40 mg Documented By: Admin: 08/29/22 22:53 Dose: 40 mg Documented By: Admin: 08/29/22 08:48 Dose: 40 mg Documented By: Admin: 08/28/22 21:12 Dose: 40 mg Documented By: Admin: 08/28/22 08:43 Dose: 40 mg Documented By: Admin: 08/27/22 21:08 Dose: 40 mg Documented By: Admin: 08/27/22 08:09 Dose: 40 mg Documented By: Admin: 08/26/22 22:02 Dose: 40 mg Documented By: PORTIA Potassium Chloride (Potassium Chloride 10 Meq Tabcr) 10 meq PO DAILY PEARL Stop: 09/26/22 08:59 Last Admin: 08/31/22 08:45 Dose: 10 meq Documented By: Admin: 08/30/22 07:38 Dose: 10 meq Documented By: Admin: 08/29/22 08:48 Dose: 10 meq Documented By: Admin: 08/28/22 08:42 Dose: 10 meq Documented By: Admin: 08/27/22 08:09 Dose: 10 meq Documented By: AGATHA Roflumilast (Roflumilast 500 Mcg Tab) 500 mcg PO DAILY PEARL Stop: 09/26/22 08:59 Last Admin: 08/31/22 08:45 Dose: 500 mcg Documented By: Admin: 08/30/22 07:37 Dose: 500 mcg Documented By: Admin: 08/29/22 08:48 Dose: 500 mcg Documented By: Admin: 08/28/22 08:43 Dose: 500 mcg Documented By: Admin: 08/27/22 08:08 Dose: 500 mcg Documented By: AGATHA Sertraline HCl (Sertraline Hcl 100 Mg Tablet) 200 mg PO HS [facility] Stop: 09/25/22 20:59 Last Admin: 08/30/22 21:13 Dose: 200 mg Documented By: Admin: 08/29/22 22:55 Dose: 200 mg Documented By: Admin: 08/28/22 21:11 Dose: 200 mg Documented By: Admin: 08/27/22 21:07 Dose: 200 mg Documented By: Admin: 08/26/22 22:01 Dose: 200 mg Documented By: PORTIA Tramadol HCl (Tramadol Hcl 50 Mg Tablet) 25 mg PO Q6H PRN PRN Reason: Headache Stop: 09/28/22 13:18 Last Admin: 08/31/22 09:00 Dose: 25 mg Documented By: Admin: 08/30/22 07:46 Dose: 25 mg Documented By: Admin: 08/29/22 13:33 Dose: 25 mg Documented By: NICA Trazodone HCl (Trazodone Hcl 50 Mg Tab) 150 mg PO [facility] Stop: 09/25/22 20:59 Last Admin: 08/30/22 21:13 Dose: 150 mg Documented By: Admin: 08/29/22 22:53 Dose: 150 mg Documented By: Admin: 08/28/22 21:11 Dose: 150 mg Documented By: Admin: 08/27/22 21:13 Dose: 150 mg Documented By: Admin: 08/26/22 22:01 Dose: 150 mg Documented By: PORTIA Umeclidinium Pullman (Umeclidinium [place]man 62.5mcg/Blister 7 Puffs/Inhaler) 1 puffs INH DAILY PEARL Stop: 09/26/22 08:59 Last Admin: 08/31/22 08:49 Dose: 1 puffs Documented By: Admin: 08/30/22 07:38 Dose: 1 puffs Documented By: Admin: 08/29/22 08:48 Dose: 1 puffs Documented By: Admin: 08/28/22 08:41 Dose: 1 puffs Documented By: Admin: 08/27/22 08:09 Dose: 1 puffs Documented By: AGATHA Vitamin D (Cholecalciferol 1,000 Units 25 Mcg Tab) 2,000 units PO QAM [facility] Stop: 09/26/22 08:59 Last Admin: 08/31/22 08:47 Dose: 2,000 units Documented By: Admin: 08/30/22 07:38 Dose: 2,000 units Documented By: Admin: 08/29/22 08:48 Dose: 2,000 units Documented By: Admin: 08/28/22 08:43 Dose: 2,000 units Documented By: Admin: 08/27/22 08:09 Dose: 2,000 units Documented By: AGATHA Discontinued Medications Albuterol (Albut/Ipratrop 3mg/0.5mg Neb 3 Ml Vial) 3 ml NEB NOW STA; Protocol Stop: 08/26/22 16:10 Last Admin: 08/26/22 16:24 Dose: 3 ml Documented By: ROMA Albuterol (Albut/Ipratrop 3mg/0.5mg Neb 3 Ml Vial) 3 ml NEB NOW STA; Protocol Stop: 08/26/22 17:14 Last Admin: 08/26/22 17:43 Dose: 3 ml Documented By: ROMA Gadobutrol (Gadobutrol 65ml Vial) 8 ml IV ONCE ONE Stop: 08/31/22 11:08 Last Admin: 08/31/22 11:08 Dose: 8 ml Documented By: MIKHAIL Hydrocodone Bit/Homatropine Methylb (Hydrocodone/Homatropine Syrup 5mg/1.5mg 5ml Udp) 5 ml PO Q6H PRN PRN Reason: Cough Stop: 09/10/22 10:24 Last Admin: 08/30/22 21:13 Dose: 5 ml Documented By: Admin: 08/30/22 07:44 Dose: 5 ml Documented By: Admin: 08/29/22 22:54 Dose: 5 ml Documented By: Admin: 08/29/22 14:02 Dose: 5 ml Documented By: Admin: 08/29/22 07:48 Dose: 5 ml Documented By: Admin: 08/29/22 00:21 Dose: 5 ml Documented By: Admin: 08/28/22 18:11 Dose: 5 ml Documented By: Admin: 08/28/22 12:21 Dose: 5 ml Documented By: Admin: 08/28/22 06:15 Dose: 5 ml Documented By: Admin: 08/28/22 00:02 Dose: 5 ml Documented By: Admin: 08/27/22 17:50 Dose: 5 ml Documented By: Admin: 08/27/22 11:24 Dose: 5 ml Documented By: AGATHA Cefepime HCl (Maxipime) 2,000 mg in 20 mls @ 5 mls/min IV NOW STA; Protocol Stop: 08/26/22 16:33 Last Admin: 08/26/22 16:48 Dose: 5 mls/min Documented By: ROMA Sodium Chloride (Nss 1000ml) 500 mls @ 999 mls/hr IV .Q31M ONE Stop: 08/26/22 17:25 Last Infusion: 08/26/22 18:29 Dose: 0 mls/hr Documented By: Admin: 08/26/22 17:43 Dose: 999 mls/hr Documented By: ROMA Sodium Chloride (Nss 1000ml) 1,000 mls @ 80 mls/hr IV .[id number] PEARL Stop: 08/27/22 20:29 Last Infusion: 08/27/22 17:37 Dose: 0 mls/hr Documented By: Admin: 08/27/22 06:15 Dose: 80 mls/hr Documented By: Infusion: 08/27/22 06:15 Dose: 80 mls/hr Documented By: Admin: 08/26/22 22:23 Dose: 80 mls/hr Documented By: PORTIA Methylprednisolone 40 mg/ (Syringe) 0.64 mls @ 1.5 mls/min IV DAILY PEARL Stop: 08/30/22 08:00 Last Admin: 08/29/22 08:47 Dose: 1.5 mls/min Documented By: Admin: 08/28/22 08:41 Dose: 1.5 mls/min Documented By: Admin: 08/27/22 08:08 Dose: 1.5 mls/min Documented By: AGATHA Sodium Chloride (Nss) 500 mls @ 500 mls/hr IV .Q1H PEARL Stop: 08/26/22 23:59 Last Infusion: 08/27/22 01:34 Dose: 0 mls/hr Documented By: Admin: 08/26/22 23:20 Dose: 500 mls/hr Documented By: PORTIA Magnesium Sulfate/Dextrose (Magnesium Sulfate / D5w) 1 gm in 100 mls @ 50 mls/hr IV ONE ONE Stop: 08/31/22 07:18 Last Infusion: 08/31/22 09:18 Dose: 0 mls/hr Documented By: Admin: 08/31/22 06:21 Dose: 50 mls/hr Documented By: JEN Ketorolac Tromethamine (Ketorolac Tromethamine 15 Mg/Ml Vial) 15 mg IV Q6H PRN PRN Reason: Pain Stop: 09/01/22 08:57 Last Admin: 08/27/22 09:27 Dose: 15 mg Documented By: AGATHA Levalbuterol HCl (Levalbuterol 1.25mg/0.5ml Neb) Confirm Administered Dose 1.25 mg .ROUTE .STK-MED ONE Stop: 08/28/22 01:44 Last Admin: 08/28/22 01:47 Dose: 1.25 mg Documented By: YAQUELIN Loperamide HCl (Loperamide Hcl 2 Mg Cap) 2 mg PO NOW STA Stop: 08/26/22 21:57 Last Admin: 08/26/22 22:09 Dose: 2 mg Documented By: PORTIA Methylprednisolone (Methylprednisolone 125 Mg/2 Ml Vial) 125 mg IV NOW STA Stop: 08/26/22 16:10 Last Admin: 08/26/22 16:20 Dose: 125 mg Documented By: ROMA Oxycodone HCl (Oxycodone Hcl Ir 5 Mg Tab (Immediate Release)) 5 mg PO NOW STA Stop: 08/27/22 02:06 Last Admin: 08/27/22 02:57 Dose: 5 mg Documented By: PORTIA Description This is a 21 electrode EEG with a single channel dedicated to limited EKG. The electrodes were placed in accordance with the International 10-20 system. Interpretation During restful wakefulness, there as 30 to 50 V, 8 Hz posterior activity, attenuates with eye opening bilaterally. Background activity shows good organization without focal slowing or asymmetry. Photic stimulations induced posterior driving responses bilaterally. Hyperventilation is not attempted. There are no electrographic seizures, epileptogenic discharges, or asymmetries. No sleep recording is captured. Impression: This is a routine EEG, recorded in wakefulness, which is normal. There is no electrographic seizures or epileptogenic discharge. Clinical Correlation Normal routine EEG cannot rule out epileptogenic etiology and certainty. If clinically indicated, sleep deprived and prolonged EEG recording might offer further information.
--- NOTE | 2022-08-31 19:31 | Neurology Consultation ---
Date of Consultation August 31, 2022 Assessment & Plan (1) Observed seizure-like activity: Impression: Nursing staff noticed some generalized body shaking movements without tongue biting or urinary incontinence last night, which raise concern for seizures. However, the patient reports having similar nocturnal shakiness for many years. The patient has not had any seizure or seizure-like activities during daytime. Based on description, the patient might have REM sleep behavior disorder. Brain MRI and EEG studies were unremarkable. Recommendations/plan: There is no indication for antiepileptic medication at this time. Polysomnography might be helpful to identify any sleep disorder, if clinically indicated. If the patient experiences any additional seizure-like activity, including daytime convulsive events, then he should be followed at neurology clinic. Otherwise, we will sign off. (2) Acute on chronic respiratory failure with hypoxia and hypercapnia: Plan Thank you for the consultation. History of Present Illness Reason for Consultation: Seizure like activity Requesting Physician: Tommie Parra Attending Physician: Fidel Reilly MD History of Present Illness The patient is a 72-year-old gentleman, with long history of lung disease, on 6 L old supplemental oxygen, who was admitted to hospital recently, because of worsening respiratory distress, exertional dyspnea, and productive coughing. Overall, the patient has been stable and has been doing better since the admission. The last night, nursing staff noticed generalized body shaking in sleep, which raised concern for seizure disorder. However, the patient reports having shakiness in sleep, for many years. The patient has not been diagnosed with seizure disorder before. EEG was done today, which did not show epileptogenic activity. Brain MRI was also negative for acute intracranial pathology, potential epileptogenic pathology or mesial temporal sclerosis. The patient reports having no seizure or seizure-like activities during daytime. I have reviewed the patient's chart including imaging studies and EEG report. I have discussed the case with the patient and answered his questions in detail. Allergies Allergy/AdvReac Type Severity Reaction Status Date / Time bee venom protein (honey bee) Allergy Severe ANAPHYLAXIS Verified 08/26/22 18:23 amoxicillin Allergy Intermediate FACIAL Verified 08/26/22 18:23 SWELLING (EYES SWELLED SHUT) clavulanic acid Allergy Intermediate FACIAL Verified 08/26/22 18:23 SWELLING (EYES SWELLED SHUT) pneumococcal vaccine Allergy Intermediate SWELLING Verified 08/26/22 18:23 Fqahbim-YYC-ScD Reductase Allergy Intermediate CPK'S GO Verified 08/26/22 18:23 Inhibitor THROUGH [Xmluydn-Tbx-Yrn Reductase ROOF Inhibitor] prednisone AdvReac Intermediate confusion Verified 08/26/22 18:23 and agitation Home Medications Medication Instructions Recorded Confirmed Type omeprazole 20 mg capsule,delayed 20 mg PO BID 04/08/18 08/26/22 History release sertraline 100 mg tablet 200 mg PO HS 04/08/18 08/26/22 History trazodone 150 mg tablet 150 mg PO HS 04/08/18 08/26/22 History albuterol sulfate 90 mcg/actuation 2 puff inhalation Q6H PRN 07/04/18 08/26/22 History aerosol inhaler Shortness Of Breath Or Wheezing epinephrine 0.3 mg/0.3 mL 0.3 mg IM DIRECTED PRN Allergic 08/22/18 08/26/22 History injection, auto-injector (EpiPen) Reaction cholecalciferol (vitamin D3) 25 2,000 unit PO QAM 08/19/19 08/26/22 History mcg (1,000 unit) capsule (Vitamin D3) cyanocobalamin (vitamin B-12) 1,000 mcg PO 2XWK 12/19/20 08/26/22 History 1,000 mcg tablet (Vitamin B-12) umeclidinium 62.5 mcg/actuation 1 inh inhalation DAILY 30 days #30 09/26/21 08/26/22 Rx blister powder for inhalation ea (Incruse Ellipta) acetylcysteine 100 mg/mL (10 %) 2 ml inhalation BID #100 mL 10/10/21 08/26/22 Rx solution formoterol fumarate 20 mcg/2 mL 20 mcg (2 mL) NEB BID 30 days #120 12/25/21 08/26/22 Rx solution for nebulization mL (Perforomist) ascorbic acid (vitamin C) 1,000 mg 1 g PO DAILY 06/11/22 08/26/22 History tablet (Vitamin C) budesonide 0.25 mg/2 mL suspension 0 mg inhalation BID 06/11/22 08/26/22 History for nebulization buspirone 15 mg tablet 7.5 mg PO HS 06/11/22 08/26/22 History ipratropium 0.5 mg-albuterol 3 mg 3 ml NEB QID PRN Shortness Of 06/11/22 08/26/22 History (2.5 mg base)/3 mL nebulization Breath Or Wheezing soln lactobacillus combination no.4 3 0 mmu cells PO DAILY 06/11/22 08/26/22 History billion cell capsule (Probiotic) lanolin alcohols-mineral 1 applic topical DAILY PRN Dry Skin 06/11/22 08/26/22 History oil-w.petrolatum-ceresin topical cream (Eucerin topical cream) potassium chloride 20 mEq 10 meq PO DAILY 06/11/22 08/26/22 History tablet,extended release azithromycin 250 mg tablet 250 mg PO 3XWK 06/12/22 08/26/22 History diltiazem HCl 240 mg 240 mg PO DAILY 06/12/22 08/26/22 History capsule,extended release 24 hr (Cardizem CD) roflumilast 500 mcg tablet 500 mcg PO DAILY 06/12/22 08/26/22 History (Daliresp) guaifenesin 600 mg tablet, 1,200 mg PO BID 08/26/22 08/26/22 History extended release 12 hr (Mucinex) Patient History Medical History Anemia Anxiety Chronic dyspnea Chronic respiratory failure with hypoxia Cirrhosis of liver COPD (chronic obstructive pulmonary disease) with emphysema COPD exacerbation Depression End stage COPD GERD (gastroesophageal reflux disease) Hearing deficit BL BRUN[place] 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 Paicines exposure History of COVID-19 05/2020 - hospitalized at [facility] - sob, cough, generalized weakness --> pneumonia; still requiring more supplemental oxygen since having Covid (currently on 6 lpm cont home o2, prior to covid was only on 4 lpm) History of kidney stones History of tobacco abuse HTN (hypertension) On home O2 cont @ 6 lpm Osteoarthritis Palliative care encounter PTSD (post-traumatic stress disorder) Pulmonary nodules Thrombocytopenia Weakness Surgical History Dilatation of ureter H/O hernia repair History of appendectomy History of cardiac cath x 2 - most recent [place] 2010 - no stents; [place] [facility] [place] History of colonoscopy History of extraction of renal calculus History of tonsillectomy Loss of teeth due to extraction S/P arthroscopic surgery of right knee Family History Mother Colon cancer Father FH: kidney cancer Other Cancer Social History Smoking Status: Former smoker Tobacco Type: Cigarettes Cigarettes Per Day: 40 pack year hx; Second Hand Exposure: No; Hx Alcohol Use: Yes Alcohol type: hard liquor Hx Substance Use: No Preferred Language: Beninese Communication Ability: Effective [employer] Required: No Beliefs That Will Affect Care: None marital status: Current Living Situation: Spouse and Family Current Living Situation Comment: Lives with , son, DIL, grandkids 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 HENT: Normal exam with inspection. CV: Hearth rhythm is regular. Neck: Supple, no carotid bruits. Lungs: Bibasilar crackles Abdomen: Soft, non-tender, non-distended. Skin: No rash or ecchymosis. Extremities: No edema or cyanosis NEUROLOGICAL EXAMINATION: Mental Status: Alert and oriented to place, person and time. Cranial Nerves: II-XII are intact. No nystagmus. Funduscopy: Not assessed Motor: 5-/5 in all extremities without asymmetry. Tone: Normal without spasticity or rigidity. Sensory: Intact grossly Coordination: No dysmetria with FTN testing. Speech: Fluent. Comprehension is intact. Gait: Not assessed. Musculoskeletal: Normal muscle bulk, no atrophy. Results & Data Vital Signs (Past 12 Hours) Vital Signs Temp Pulse Pulse Resp BP Pulse Ox O2 Del Method 08/31/22 16:30 78 08/31/22 16:03 90 18 91 Nasal Cannula 08/31/22 15:26 36.8 C 75 20 131/71 90 Nasal Cannula 08/31/22 09:00 Nasal Cannula 08/31/22 07:41 36.5 C 83 18 113/55 L 94 High Flow Nasal Cannula O2 Flow Rate 08/31/22 16:30 08/31/22 16:03 7 08/31/22 15:26 6 08/31/22 09:00 6 03/24/23 07:41 6.5 Laboratory Results Laboratory Results - last 24 hr 08/31/22 08/31/22 08/31/22 03:38 04:14 04:14 WBC 9.53 RBC 3.51 L Hgb 10.4 L Hct 32.2 L MCV 91.7 MCH 29.6 MCHC 32.3 RDW Std Deviation 48.5 H RDW Coeff of Ren 14.4 Plt Count 118 L MPV 10.7 Immature Gran % (Auto) 0.4 Neut % (Auto) 65.2 Lymph % (Auto) 20.3 [place] % (Auto) 11.2 Eos % (Auto) 2.7 Baso % (Auto) 0.2 Neut # (Auto) 6.21 Lymph # (Auto) 1.93 [place] # (Auto) 1.07 H Eos # (Auto) 0.26 Baso # (Auto) 0.02 Immature Gran # (Auto) 0.04 ABG pH ABG pCO2 ABG pO2 ABG HCO3 ABG O2 Saturation ABG Base Excess Wyatt Test Oxygen Given Sodium 138 Potassium 4.4 Chloride 95 L Carbon Dioxide 38 H Anion Gap 5 BUN 20 Creatinine 1.21 Est Cr Clr Drug Dosing 57.0 Est GFR ( Amer) 68.9 Est GFR (Non-Af Amer) 59.5 BUN/Creatinine Ratio 16.5 Glucose 96 POC Glucose 103 H Calcium 9.2 Phosphorus 4.6 D Magnesium 1.9 Total Bilirubin 0.3 AST 23 ALT 20 Alkaline Phosphatase 67 Ammonia Total Protein 6.1 Albumin 3.6 Globulin 2.5 Albumin/Globulin Ratio 1.4 08/31/22 08/31/22 04:14 04:14 WBC RBC Hgb Hct MCV MCH MCHC RDW Std Deviation RDW Coeff of Ren Plt Count MPV Immature Gran % (Auto) Neut % (Auto) Lymph % (Auto) [place] % (Auto) Eos % (Auto) Baso % (Auto) Neut # (Auto) Lymph # (Auto) [place] # (Auto) Eos # (Auto) Baso # (Auto) Immature Gran # (Auto) ABG pH 7.42 ABG pCO2 66 H ABG pO2 65 L ABG HCO3 43 H ABG O2 Saturation 94.7 ABG Base Excess 15.0 H Wyatt Test Pos Oxygen Given 7L Sodium Potassium Chloride Carbon Dioxide Anion Gap BUN Creatinine Est Cr Clr Drug Dosing Est GFR ( Amer) Est GFR (Non-Af Amer) BUN/Creatinine Ratio Glucose POC Glucose Calcium Phosphorus Magnesium Total Bilirubin AST ALT Alkaline Phosphatase Ammonia 41.0 Total Protein Albumin Globulin Albumin/Globulin Ratio Diagnostic Findings Brain MRI 08/31/22 05:17 MR brain seizure wo/w con CLINICAL HISTORY: sz TECHNIQUE: Multiplanar and multisequence MR images of the brain were obtained prior to and following administration of gadolinium contrast. Comparison: Comparison is made to MRI brain 06/26/2014 FINDINGS: No abnormal restricted diffusion is identified. Foci of T2 and FLAIR hyperintensity are noted in the paraventricular areas consistent with chronic small vessel ischemic disease. Ex vacuo ventriculomegaly and sulcal enlargement is noted compatible with diffuse encephalomalacia. No mass or abnormal enhancement is seen. There is no mass effect or midline shift. There is no evidence of acute intraparenchymal hemorrhage. No extra axial fluid collections are seen. The corpus callosum, pituitary gland, and cerebellar tonsils appear grossly unremarkable. High-resolution images of the temporal lobes do not dem onstrate any signal abnormality. Flow voids of the major intracranial arterial vessels are identified. The imaged portions of the paranasal sinuses, mastoid air cells, and orbits are unremarkable. IMPRESSION: No acute abnormality. In particular, no edema in the temporal lobes bilaterally in this postictal patient. ACT 112: Negative or not required by law. Electronically signed by: Rosendo Dejesus M.D. 08/31/2022 11:33 AM
[2022-08-31] MEDS: BENZONATATE 100 MG CAPSULE PO SCH (22:06)
[2022-08-31] MEDS: busPIRone 7.5 MG TAB PO SCH (22:07)
[2022-08-31] MEDS: SERTRALINE HCL 100 MG TABLET PO SCH (22:09)
[2022-08-31] MEDS: traZODone HCL 50 MG TAB PO SCH (22:09)
[2022-09-01] MEDS: ACETYLCYSTEINE 10% INHAL SOLN 4 ML **DISPENSED BY RESP. INH SCH ×2 (07:12→19:51)
[2022-09-01] MEDS: BUDESONIDE 0.25 MG/2 ML VIAL (PULMICORT) INH SCH ×2 (07:13→19:51)
[2022-09-01] MEDS: FORMOTEROL 20 MCG/2 ML VIAL NEB SCH ×2 (07:14→19:51)
[2022-09-01] MEDS: ALBUT/IPRATROP 3MG/0.5MG NEB 3 ML VIAL NEB SCH ×4 (07:14→20:57)
[2022-09-01] MEDS: ACETAMINOPHEN 325 MG TAB PO PRN (11:28)
[2022-09-01] MEDS: methylPREDNISolone 20 MG in SYRINGE 0 ML IV SCH (11:31)
[2022-09-01] MEDS: BENZONATATE 100 MG CAPSULE PO SCH ×3 (11:32→22:11)
[2022-09-01] MEDS: dilTIAZem HCL 240 MG CAPCR PO SCH (11:32)
[2022-09-01] MEDS: CHOLECALCIFEROL 1,000 UNITS 25 MCG TAB PO SCH (11:32)
[2022-09-01] MEDS: ASCORBIC ACID 500 MG TAB PO SCH (11:32)
[2022-09-01] MEDS: POTASSIUM CHLORIDE 10 MEQ TABCR PO SCH (11:33)
[2022-09-01] MEDS: ROFLUMILAST 500 MCG TAB PO SCH (11:33)
[2022-09-01] MEDS: PANTOprazole 40 MG TAB PO SCH ×2 (11:33→22:17)
[2022-09-01] MEDS: guaiFENesin 600 MG TABCR PO SCH ×2 (11:33→22:16)
[2022-09-01] MEDS: ADVANCED PROBIOTIC 1250 MG CAPSULE PO SCH (11:33)
[2022-09-01] MEDS: UMECLIDINIUM BROMIDE 62.5MCG/BLISTER 7 PUFFS/INHALER INH SCH (11:34)
--- NOTE | 2022-09-01 16:17 | Hospitalist Progress Note ---
Date of Service September 01, 2022 Assessment & Plan (1) Acute on chronic respiratory failure: Plan: Has been on 6 L of oxygen at baseline (2) Parainfluenza infection: Plan: Parainfluenza infection is the cause for exacerbation (3) Elevated lactic acid level: (4) Weakness: Plan 72-year-old male with PMH of COPD on chronic 6 L of oxygen, cirrhosis, HTN, PTSD, depression with anxiety, tobacco abuse, anemia presented to the ED 08/26 with complaint of SPO2 dropping down to 56% at home per patient. Then patient increased his oxygen to 10 L and then was able to wean himself down to 6 L. He also reports feeling weak and hurting all over the body. He also reports runny nose, sore throat, cough with occasional of white mucus. He denies any chest pain or diarrhea. Denies any nausea or vomiting. Reports normal appetite. He is being managed for the following: Likely seizure: new onset, noted around 2 am of 08/31/22 (refer to communication note). Pt now reports such involuntary movement of his limbs (in the past) today. MRI brain w/ no acute findings. EEG - await. Neurology evaluated, no indication for antiepileptic medication at this time, concerning for REM sleep behavior disorder, polysomnography as an outpatient. 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 Continue with Mucomyst. Continue with home Roflumilast and azithromycin MWF. Patient is allergic to prednisone, currently being tapered down on methylprednisone. Patient reports feeling better, on exam minimal wheezing, poor breath sounds on both lungs which appears to be his baseline. With dry cough, symptomatic management. Continue with Mucinex, Tessalon Perles. PT/OT eval Increased blood lactic acid level: Elevated at presentation, status post IV fluid, resolved. Acute nosebleed: Noted on right nose on 08/29, reports improvement. Severe headache: Resolved Disposition: PCP: [facility] Code Status: Full Code VTE Prophyalxis: Heparin SQ PT/OT to eval, CM to assist with DC planning. Admission and Anticipated Discharge Date Admission Date: August 26, 2022 Subjective Patient seen and examined at bedside as a follow-up of acute on chronic respiratory failure, acute exacerbation of COPD likely secondary to parainfluenza infection. Patient was lying in bed, on 6 L oxygen via nasal cannula, NAD, no new acute events overnight. Patient does reports dry cough which appears to be improving per patient, reports improvement in his activity with his drop in oxygen saturation improving close to his baseline. Patient reports eating okay and moving bowels okay. Patient denies any headache and also reports improving epistaxis. Physical Exam Physical Exam: GENERAL: Alert and oriented x3. NAD, on 6L NC O2. Appears chroincally ill/frail/older than stated age. HEENT: No pallor, no icterus. Pupils equal, round and reactive to light. Oral mucosa moist. NECK: No JVD, no neck masses. HEART: S1 and S2 heard. Regular rate and rhythm. No murmur, no gallop. RESPIRATORY SYSTEM: Normal AP diameter. No accessory muscle use. No wheezing, no crackles. decreased breath sounds. ABDOMEN: Soft, bowel sounds present, nontender, no distention. CENTRAL NERVOUS SYSTEM: No facial droop. Speech is clear. Obeys simple commands. Moves extremities. EXTREMITIES: No edema, no erythema seen. Results & Data Results & Data Vital Signs (Past 12 Hours) Vital Signs Temp Pulse Pulse Resp BP Pulse Ox O2 Del Method 09/01/22 15:42 37.0 C 79 18 147/83 H 96 Nasal Cannula, High Flow Nasal Cannula 09/01/22 15:14 81 18 94 Nasal Cannula 09/01/22 11:19 83 18 95 Nasal Cannula 09/01/22 11:18 38.2 C H 84 20 110/67 90 Nasal Cannula 09/01/22 08:17 37.3 C 76 18 127/70 93 Nasal Cannula 09/01/22 07:37 65 09/01/22 07:18 75 18 99 Nasal Cannula O2 Flow Rate 09/01/22 15:42 4 09/01/22 15:14 5 09/01/22 11:19 6 09/01/22 11:18 6 09/01/22 08:17 6 09/01/22 07:37 09/01/22 07:18 8
[2022-09-01] MEDS: busPIRone 7.5 MG TAB PO SCH (22:16)
[2022-09-01] MEDS: SERTRALINE HCL 100 MG TABLET PO SCH (22:17)
[2022-09-01] MEDS: traZODone HCL 50 MG TAB PO SCH (22:18)
[2022-09-01] MEDS: HEPARIN SOD 5,000 UNIT/0.5 ML VIAL SQ SCH (22:54)
[2022-09-02] MEDS ORDERED: ALBUT/IPRATROP 3MG/0.5MG NEB 3 ML VIAL NEB STA (03:35)
--- NOTE | 2022-09-02 03:44 | Communication Note ---
Date of Service: September 02, 2022 3:35 AM Notified by RN of worsening oxygenation. Patient more wheezy and having trouble staying awake. Same dry cough symptoms as per RN. AP Worsening respiratory failure Hypercapnia on review of prior ABGs Ongoing treatment for COPD exacerbation Neuropsychotropic meds possibly contributory BiPAP now ABG, CXR Solu-Medrol early administration Stat nebs Hold neuropsychotropic meds for now Addendum Patient more awake as per RT on attempt to place patient on BiPAP. Patient refusing hospital BiPAP and prefers home BiPAP which his can bring tomorrow. Patient counseled about immediate need for BiPAP currently given decompensation. Patient agreed to trial of hospital BiPAP. Patient adamantly refused endotracheal intubation in the event of BiPAP failure. Patient okay with CPR and defibrillation if needed. Conditional CODE STATUS change documented. No intubation; CPR/defibrillation okay with patient. Patient family updated on the phone of developments, patient request for his home BiPAP to be brought to the hospital for use as needed, and change in CODE STATUS.
[2022-09-02] MEDS: methylPREDNISolone 40 MG in SYRINGE 0 ML IV SCH (03:58)
[2022-09-02 04:19] LABS: HCO3 ABG 40 mmol/L (19-24); Oxygen Saturation ABG > 100.0 % (90-95); PCO2 ABG 64 mmHg (35-46); PO2 ABG 171 mmHg (80-95)
[2022-09-02 04:20] LABS: Allen Test Pos (Pos)
[2022-09-02] MEDS: MAGNESIUM SULFATE / D5W 1 GM/100 ML BAG IV SCH ×2 (04:26→06:27)
[2022-09-02 04:35] LABS: Basophils # (auto) 0.02 K/uL (0-0.2); Basophils % (auto) 0.2 %; Eosinophils % (auto) 0.8 %; Hematocrit (blood only) 32.4 % (42.0-52.0); Hemoglobin 10.6 g/dl (14.0-18.0); Immature Granulocytes # (auto) 0.11 K/uL (0.01-0.20); Immature Granulocytes % (auto) 0.9 %; Lymphocytes # (auto) 1.78 K/uL (1.2-3.4); Lymphocytes % (auto) 14.6 %; Mean Corpuscular Hemoglobin 29.9 pg (25.0-34.0); Mean Corpuscular Hgb Conc 32.7 g/dL (32.0-36.0); Mean Corpuscular Volume 91.5 fL (80.0-100.0); Mean Platelet Volume 10.1 fL (9.4-12.4); Monocytes # (auto) 0.95 K/uL (0.11-0.59); Monocytes % (auto) 7.8 %; Neutrophils # (auto) 9.25 K/uL (1.40-6.50); Neutrophils % (auto) 75.7 %; Platelet Count 136 K/uL (130-400); RDW Coefficient of Variation 13.9 % (11.5-14.5); RDW Standard Deviation 47.3 fL (36.4-46.3); Red Blood Count 3.54 M/uL (4.70-6.10); White Blood Count 12.21 K/ul (4.8-10.8)
[2022-09-02 04:43] LABS: BUN Creatinine Ratio 22.1 (10-20); Calcium 9.2 mg/dl (8.6-10.3); Est GFR (African American) 74.8 ml/min; Est GFR (Non-African American) 64.6 ml/min; Magnesium 2.2 mg/dl (1.7-2.4); Potassium 4.1 mmol/L (3.5-5.1)
[2022-09-02 04:52] LABS: Partial Thromboplastin Ratio 0.9; Partial Thromboplastin Time 24.6 Seconds (21.0-31.0)
[2022-09-02] MEDS: ALBUT/IPRATROP 3MG/0.5MG NEB 3 ML VIAL NEB SCH ×4 (07:28→20:00)
[2022-09-02] MEDS: BUDESONIDE 0.25 MG/2 ML VIAL (PULMICORT) INH SCH ×2 (07:28→19:26)
[2022-09-02] MEDS: ACETYLCYSTEINE 10% INHAL SOLN 4 ML **DISPENSED BY RESP. INH SCH ×2 (07:29→19:27)
[2022-09-02] MEDS: FORMOTEROL 20 MCG/2 ML VIAL NEB SCH ×2 (07:30→19:26)
[2022-09-02] MEDS: BENZONATATE 100 MG CAPSULE PO SCH ×3 (08:02→21:24)
[2022-09-02] MEDS: ASCORBIC ACID 500 MG TAB PO SCH (08:02)
[2022-09-02] MEDS: CHOLECALCIFEROL 1,000 UNITS 25 MCG TAB PO SCH (08:03)
[2022-09-02] MEDS: guaiFENesin 600 MG TABCR PO SCH ×2 (08:03→21:25)
[2022-09-02] MEDS: dilTIAZem HCL 240 MG CAPCR PO SCH (08:03)
[2022-09-02] MEDS: HEPARIN SOD 5,000 UNIT/0.5 ML VIAL SQ SCH ×2 (08:04→21:23)
[2022-09-02] MEDS: UMECLIDINIUM BROMIDE 62.5MCG/BLISTER 7 PUFFS/INHALER INH SCH (08:04)
[2022-09-02] MEDS: POTASSIUM CHLORIDE 10 MEQ TABCR PO SCH (08:04)
[2022-09-02] MEDS: PANTOprazole 40 MG TAB PO SCH ×2 (08:04→21:25)
[2022-09-02] MEDS: ROFLUMILAST 500 MCG TAB PO SCH (08:04)
[2022-09-02] MEDS: ADVANCED PROBIOTIC 1250 MG CAPSULE PO SCH (08:04)
--- NOTE | 2022-09-02 08:40 | XRay Report ---
XR chest 1V portable CLINICAL HISTORY: low o2 TECHNIQUE: Single frontal radiograph of the chest was obtained. Comparison: Comparison is made to chest radiograph 08/27/2022 FINDINGS: No lines and tubes are seen. The cardiomediastinal silhouette is normal. Right lower lung airspace op acities noted. Emphysema and interstitial thickening are noted. No evidence of pleural effusion or pn eumothorax. IMPRESSION: Right lower lung airspace opacities likely represent atelectasis/scarring with or without superimpose d aspiration/pneumonia. Emphysematous changes and interstitial thickening are noted. ACT 112: Negative or not required by law. Electronically signed by: Rosendo Dejesus M.D. 09/02/2022 8:39 AM
[2022-09-02] MEDS ORDERED: guaiFENesin/DEXTROM SYRUP 100MG/10MG 5ML UDC PO PRN (14:45)
--- NOTE | 2022-09-02 14:55 | Discharge Summary ---
Date of Service September 02, 2022 Admission HPI Per Admitting Provider Mr. Cantu is a 72 year old male that presented to the ED today after he was experiencing shortness of breath at home. He, at baseline, wears 6LNC supplemental oxygen; he increased his home O2 to 10LNC with improvement. He reports having a sore throat and with productive yellow cough. Pt with recent admission 06/11-06/22 for COPD exacerbation related to PNA. This admission, COVID and RSV negative. CXR showed 1. Emphysema and bibasilar chronic interstitial thickening. Otherwise, no acute process within the chest. 2. Near-complete resolution of the right midlung zone density. There is a 9 mm nodular density remaining at the right midlung zone. This may represent an area of scarring. An additional [address] follow-up is recommended to ensure complete resolution. Covid negative. Biofire sent and positive for parainfluenza which appears to be causing him to be in COPD exacerbation. 2D echo 05-11-21: EF 65-70%, right ventricle systolic function is mildly reduced, grade 1 diastolic dysfunction. Normal right ventricular function. Additional PMH includes: COPD (Home O2), Combined pulmonary emphysema with fibrosis, chronic respiratory failure on 6 L O2, hypertension, depression, PTSD BiPAP nightly. Follows with Dr. Abel as pulmonary opt. Was a 60 pack year history smoker; stopped smoking at age 66. Pt denies chest pain, rashes, BRUNO, dizziness, abdominal pain, N/V/D, edema, recent falls or trauma. Pt will be admitted for further evaluation and management. Please see A/P for further details. Admission Exam Per Admitting Provider GENERAL: Alert and oriented x3. NAD, on 6L NC O2. Appears chroincally ill/frail/older than stated age. HEENT: No pallor, no icterus. Pupils equal, round and reactive to light. Oral mucosa moist. NECK: No JVD, no neck masses. HEART: S1 and S2 heard. Regular rate and rhythm. No murmur, no gallop. RESPIRATORY SYSTEM: Normal AP diameter. No accessory muscle use. mild b/l mid to basal wheezing, no crackles. ABDOMEN: Soft, bowel sounds present, nontender, no distention. CENTRAL NERVOUS SYSTEM: No facial droop. Speech is clear. Obeys simple comman ds. Moves extremities. EXTREMITIES: No edema, no erythema seen. Principal Diagnosis Acute on chronic respiratory failure Parainfluenza infection Acute exacerbation of COPD Increased blood lactic acid level Discharge Exam GENERAL: Alert and oriented x3. NAD, on 6L NC O2. Appears chroincally ill/f rail/older than stated age. HEENT: No pallor, no icterus. Pupils equal, round and reactive to light. Oral mucosa moist. NECK: No JVD, no neck masses. HEART: S1 and S2 heard. Regular rate and rhythm. No murmur, no gallop. RESPIRATORY SYSTEM: Normal AP diameter. No accessory muscle use. No wheezing, no crackles. decreased breath sounds. ABDOMEN: Soft, bowel sounds present, nontender, no distention. CENTRAL NERVOUS SYSTEM: No facial droop. Speech is clear. Obeys simple commands. Moves extremities. EXTREMITIES: No edema, no erythema seen. Discharge Data Allergies Allergy/AdvReac Type Severity Reaction Status Date / Time bee venom protein (honey bee) Allergy Severe ANAPHYLAXIS Verified 08/26/22 18:23 amoxicillin Allergy Intermediate FACIAL Verified 08/26/22 18:23 SWELLING (EYES SWELLED SHUT) clavulanic acid Allergy Intermediate FACIAL Verified 08/26/22 18:23 SWELLING (EYES SWELLED SHUT) pneumococcal vaccine Allergy Intermediate SWELLING Verified 08/26/22 18:23 [id number]-BkX Reductase Allergy Intermediate CPK'S GO Verified 08/26/22 18:23 Inhibitor THROUGH [Igedydo-Xky-Qpv Reductase ROOF Inhibitor] prednisone AdvReac Intermediate confusion Verified 08/26/22 18:23 and agitation Consultations 08/26/22 18:03 ED Decision to Admit Stat 08/31/22 05:18 Consult Neurology Routine Ordered Studies 08/31/22 05:17 MRI Brain [MR brain seizure wo/w con] Routine Hospital Course (1) Acute on chronic respiratory failure: Has been on 6 L of oxygen at baseline (2) Parainfluenza infection: Parainfluenza infection is the cause for exacerbation (3) Elevated lactic acid level: (4) Weakness: Plan 72-year-old male with PMH of COPD on chronic 6 L of oxygen, cirrhosis, HTN, PTSD, depression with anxiety, tobacco abuse, anemia presented to the ED 08/26 with complaint of SPO2 dropping down to 56% at home per patient. Then patient increased his oxygen to 10 L and then was able to wean himself down to 6 L. He also reports feeling weak and hurting all over the body. He also reports runny nose, sore throat, cough with occasional of white mucus. He denies any chest pain or diarrhea. Denies any nausea or vomiting. Reports normal appetite. He was managed for the following: Likely seizure: new onset, noted around 2 am of 08/31/22 (refer to communication note 09/01). Pt reports such involuntary movement of his limbs (in the past). MRI brain w/ no acute findings. EEG - wnl. Neurology evaluated, no indication for antiepileptic medication at this time, concerning for REM sleep behavior disorder, polysomnography as an outpatient. Acute on chronic respiratory failure: Parainfluenza infection: Elevated Lactate: Weakness: HORAN and SOB x few days [employer]UCK [employer] Suspected exacerbating factor includes + for parainfluenza 6LNC at baseline [facility] with [facility] Continue as needed and scheduled nebs, continue home inhalers. Continue with Mucomyst. Continue with home Roflumilast and azithromycin MWF. Patient is allergic to prednisone, currently being tapered down on methylprednisone --> will be discharged on tapering dose of methylprednisolone. Patient reports feeling better, on exam minimal wheezing, poor breath sounds on both lungs which appears to be his baseline. PT evaluated, patient reports being back to his baseline and would like to go home today. With dry cough, symptomatic management. Continue with Mucinex, Tessalon Perles. Patient advised to maintain his BiPAP use during sleep. Increased blood lactic acid level: Elevated at presentation, status post IV fluid, resolved. Acute nosebleed: Noted on right nose on 08/29, reports improvement. Severe headache: Resolved Disposition: PCP: [facility] Code Status: Full Code VTE Prophyalxis: Heparin SQ Patient being discharged home with family support with following instruction at the point of discharge: Follow-up with your primary care physician within a week time and likely you will need labs CBC/CMP/magnesium/phosphorus. Follow-up with your lung doctor in 2 to 4 weeks time. Maintain use of BiPAP at home while sleeping. You will be discharged on tapering dose of steroid. Recommend sleep study as an outpatient, coordinate with your PCP office to set up the test. Take your medications as prescribed. Home Health Attestation I certify that this patient is under my care and that I, or a physicians human services assistant working with me, had a face to-face encounter that meets the home health [id number] encounter requirements with this patient. The encounter with the patient was in whole, or in part, for the following medical condition, which is the primary reason for home health care (list medical condition): I certify that, based on my findings, the following services are medically necessary home health services: My clinical findings support the need for the above services because: Further, I certify that my clinical findings support that this patient is homebound (i.e. absences from home require considerable and taxing effort and are for medical reasons or confucianism services or infrequently or of short duration when for other reasons) because: Certification for Home Health Services: Based on the above findings, I certify that this patient is confined to the home and needs intermittent detention care, physical therapy and/or speech therapy or continues to need occupational therapy. The patient is under my care, and I have initiated the establishment of the plan of care. This patient will be followed by a physician who will periodically review the plan of care. Total Time Total Time Spent Total Time Spent (In Minutes): 55 Discharge Plan Discharge Items Patient Disposition: Home - Self-Care Reason For Visit: SOB Discharge Diagnosis: Acute on chronic respiratory failure Parainfluenza infection Acute exacerbation of COPD Increased blood lactic acid level Condition on Discharge: Fair Activity: Resume your previous activity Non-emergency contact: Primary Care Provider Call non-emergency contact if: you have any medication questions Follow-up/Referrals: Valencia Patel PA-C [Primary Care Provider] - Diet: Regular Addtl Attending Provider Instructions: Follow-up with your primary care physician within a week time and likely you will need labs CBC/CMP/magnesium/phosphorus. Follow-up with your lung doctor in 2 to 4 weeks time. Maintain use of BiPAP at home while sleeping. You will be discharged on tapering dose of steroid. Recommend sleep study as an outpatient, coordinate with your PCP office to set up the test. Take your medications as prescribed. Pending Studies at Discharge: No Stand-Alone Forms: [employer]™ [facility], Smoking Cessation Medications and DC Order Prescriptions: New benzonatate 100 mg Capsule 100 mg PO TID 5 Days Qty: 15 0RF methylprednisolone 4 mg tablets,dose pack 4 mg PO DAILY Qty: 21 0RF dextromethorphan-guaifenesin 10-100 mg/5 mL Syrup 5 ml PO Q6H PRN (Reason: cough) 5 Days Qty: 237 0RF Continued formoterol fumarate [Perforomist] 20 mcg/2 mL solution for nebulization 20 mcg NEB BID 30 Days Qty: 120 5RF acetylcysteine 100 mg/mL (10 %) solution 2 ml inhalation BID Qty: 100 3RF Rx Instructions: mix with nss albuterol sulfate 90 mcg/actuation Hfa Aerosol Inhaler 2 puff INHALATION Q6H PRN (Reason: Shortness Of Breath Or Wheezing) sertraline 100 mg Tablet 200 mg PO HS trazodone 150 mg Tablet 150 mg PO HS omeprazole 20 mg Capsule,Delayed Release(Dr/Ec) 20 mg PO BID epinephrine [EpiPen] 0.3 mg/0.3 mL Auto-Injector 0.3 mg IM DIRECTED PRN (Reason: Allergic Reaction) cholecalciferol (vitamin D3) [Vitamin D3] 25 mcg (1,000 unit) Capsule 2,000 unit PO QAM cyanocobalamin (vitamin B-12) [Vitamin B-12] 1,000 mcg Tablet 1,000 mcg PO 2XWK Rx Instructions: TAKE ON MON & FRI. Incruse Ellipta 62.5 mcg/actuation Blister With Device 1 inh inhalation DAILY 30 Days Qty: 30 2RF budesonide 0.25 mg/2 mL Suspension For Nebulization 0 mg INHALATION BID Rx Instructions: unknown srtength buspirone 15 mg Tablet 7.5 mg PO HS ascorbic acid (vitamin C) [Vitamin C] 1,000 mg Tablet 1 g PO DAILY Eucerin Cream 1 applic TOPICAL DAILY PRN (Reason: Dry Skin) Probiotic 3 billion cell Capsule 0 mmu cells PO DAILY Rx Instructions: administer with a meal potassium chloride 20 mEq Tablet Extended Release 10 meq PO DAILY ipratropium-albuterol 0.5 mg-3 mg(2.5 mg base)/3 mL solution for nebulization 3 ml NEB QID PRN (Reason: Shortness Of Breath Or Wheezing) Rx Instructions: also q4h prn for sob/wheezing azithromycin 250 mg Tablet 250 mg PO 3XWK Rx Instructions: TAKE THIS MED EVERY MON/WED/FRI diltiazem HCl [Cardizem CD] 240 mg Capsule,Extended Release 24hr 240 mg PO DAILY roflumilast [Daliresp] 500 mcg Tablet 500 mcg PO DAILY guaifenesin [Mucinex] 600 mg Tablet Extended Release 12hr 1,200 mg PO BID Discharge Orders: Discharge Order (Routine); Ordered 09/02/22 Ordered By: Fidel Reilly Admission Data Admit Date/Time: 08/26/22 17:51 Attending Provider: Fidel Reilly Admit Provider: Fidel Reilly Primary Care Provider: Valencia Patel Other Providers: Fidel Reilly ; [facility] ; Hussein Multani
--- NOTE | 2022-09-02 15:52 | Hospitalist Progress Note ---
Date of Service September 02, 2022 Assessment & Plan (1) Acute on chronic respiratory failure: Plan: Has been on 6 L of oxygen at baseline (2) Parainfluenza infection: Plan: Parainfluenza infection is the cause for exacerbation (3) Elevated lactic acid level: (4) Weakness: Plan 72-year-old male with PMH of COPD on chronic 6 L of oxygen, cirrhosis, HTN, PTSD, depression with anxiety, tobacco abuse, anemia presented to the ED 08/26 with complaint of SPO2 dropping down to 56% at home per patient. Then patient increased his oxygen to 10 L and then was able to wean himself down to 6 L. He also reports feeling weak and hurting all over the body. He also reports runny nose, sore throat, cough with occasional of white mucus. He denies any chest pain or diarrhea. Denies any nausea or vomiting. Reports normal appetite. He was managed for the following: Likely seizure: new onset, noted around 2 am of 08/31/22 (refer to communication note 09/01). Pt reports such involuntary movement of his limbs (in the past). MRI brain w/ no acute findings. EEG - wnl. Neurology evaluated, no indication for antiepileptic medication at this time, concerning for REM sleep behavior disorder, polysomnography as an outpatient. Acute on chronic respiratory failure: Parainfluenza infection: Elevated Lactate: Weakness: HORAN and SOB x few days [employer]ER Suspected exacerbating factor includes + for parainfluenza 6LNC at baseline [facility] with [facility] Continue as needed and scheduled nebs, continue home inhalers. Continue with Mucomyst. Continue with home Roflumilast and azithromycin MWF. Patient is allergic to prednisone, currently being tapered down on methylprednisone --> will be discharged on tapering dose of methylprednisolone. Patient reports feeling better, on exam minimal wheezing, poor breath sounds on both lungs which appears to be his baseline. PT evaluated, patient reports being back to his baseline and would like to go home today. With dry cough, symptomatic management. Continue with Mucinex, Tessalon Perles. Patient advised to maintain his BiPAP use during sleep. Increased blood lactic acid level: Elevated at presentation, status post IV fluid, resolved. Acute nosebleed: Noted on right nose on 08/29, reports improvement. Severe headache: Resolved Disposition: PCP: [facility] Code Status: Full Code VTE Prophyalxis: Heparin SQ Admission and Anticipated Discharge Date Admission Date: August 26, 2022 Subjective Patient seen and examined at bedside as a follow-up of acute on chronic respiratory failure, acute exacerbation of COPD likely secondary to parainfluenza infection. Patient was lying in bed, on 6 L oxygen via nasal cannula, NAD, was noted to be diffucult to arouse during midnight, ABG/CXR came back atleast baseline or better. Pt himself declines any feeling of worse than his baseline overnight. Lungs sounds better/at his baseline on exam in AM. Patient does reports dry cough which appears to be improving per patient, reports improvement in his activity with his drop in oxygen saturation improving close to his baseline. Patient reports eating okay and moving bowels okay. Patient denies any headache and also reports improving epistaxis. Physical Exam Physical Exam: GENERAL: Alert and oriented x3. NAD, on 6L NC O2. Appears chroincally ill/frail/older than stated age. HEENT: No pallor, no icterus. Pupils equal, round and reactive to light. Oral mucosa moist. NECK: No JVD, no neck masses. HEART: S1 and S2 heard. Regular rate and rhythm. No murmur, no gallop. RESPIRATORY SYSTEM: Normal AP diameter. No accessory muscle use. No wheezing, no crackles. decreased breath sounds. ABDOMEN: Soft, bowel sounds present, nontender, no distention. CENTRAL NERVOUS SYSTEM: No facial droop. Speech is clear. Obeys simple commands. Moves extremities. EXTREMITIES: No edema, no erythema seen. Results & Data Results & Data Vital Signs (Past 12 Hours) Vital Signs Temp Pulse Pulse Resp BP Pulse Ox O2 Del Method 09/02/22 15:30 91 H 18 95 Nasal Cannula 09/02/22 08:00 Nasal Cannula 09/02/22 11:40 87 L 09/02/22 11:27 36.4 C L 87 20 128/79 94 Nasal Cannula 09/02/22 11:02 88 18 94 Nasal Cannula 09/02/22 07:54 90 Nasal Cannula 09/02/22 07:39 73 09/02/22 07:39 96 H 18 93 Nasal Cannula, Other 09/02/22 07:06 87 L Nasal Cannula 09/02/22 04:47 Nasal Cannula 09/02/22 04:07 77 18 97 09/02/22 04:07 89 97 BiPAP O2 Flow Rate FiO2 09/02/22 15:30 7 09/02/22 08:00 6 09/02/22 11:40 09/02/22 11:27 09/02/22 11:02 7 09/02/22 07:54 6 09/02/22 07:39 09/02/22 07:39 6 09/02/22 07:06 6 09/02/22 04:47 5 09/02/22 04:07 40 09/02/22 04:07 40
[2022-09-02] MEDS: traZODone HCL 50 MG TAB PO SCH (21:53)
[2022-09-02] MEDS: SERTRALINE HCL 100 MG TABLET PO SCH (21:53)
[2022-09-02] MEDS: busPIRone 7.5 MG TAB PO SCH (21:53)
[2022-09-03] MEDS: BUDESONIDE 0.25 MG/2 ML VIAL (PULMICORT) INH SCH (07:39)
[2022-09-03] MEDS: FORMOTEROL 20 MCG/2 ML VIAL NEB SCH (07:40)
[2022-09-03] MEDS: ALBUT/IPRATROP 3MG/0.5MG NEB 3 ML VIAL NEB SCH ×2 (07:40→11:53)
[2022-09-03] MEDS: ACETYLCYSTEINE 10% INHAL SOLN 4 ML **DISPENSED BY RESP. INH SCH (07:40)
[2022-09-03] MEDS: ASCORBIC ACID 500 MG TAB PO SCH (07:56)
[2022-09-03] MEDS: BENZONATATE 100 MG CAPSULE PO SCH (07:56)
[2022-09-03] MEDS: POTASSIUM CHLORIDE 10 MEQ TABCR PO SCH (07:57)
[2022-09-03] MEDS: CYANOCOBALAMIN (B-12) 500 MCG TABLET PO SCH (07:57)
[2022-09-03] MEDS: dilTIAZem HCL 240 MG CAPCR PO SCH (07:57)
[2022-09-03] MEDS: guaiFENesin 600 MG TABCR PO SCH (07:57)
[2022-09-03] MEDS: PANTOprazole 40 MG TAB PO SCH (07:57)
[2022-09-03] MEDS: ADVANCED PROBIOTIC 1250 MG CAPSULE PO SCH (07:57)
[2022-09-03] MEDS: HEPARIN SOD 5,000 UNIT/0.5 ML VIAL SQ SCH (07:57)
[2022-09-03] MEDS: CHOLECALCIFEROL 1,000 UNITS 25 MCG TAB PO SCH (07:57)
[2022-09-03] MEDS: ROFLUMILAST 500 MCG TAB PO SCH (07:58)
[2022-09-03] MEDS: methylPREDNISolone 40 MG in SYRINGE 0 ML IV SCH (09:37)
[2022-09-03] MEDS: UMECLIDINIUM BROMIDE 62.5MCG/BLISTER 7 PUFFS/INHALER INH SCH (09:37)
== END 2022-09-03 15:24 | disposition home or self-care (01) | DRG 189 ==
LOC: ED 15:35 → SUATTDRO 17:51 → 2N 17:51

== ENCOUNTER 2022-09-30 06:09 | Inpatient (IN) ==
[2022-09-30 06:51] LABS: Base Excess VBG 7.9 mEq/L; HCO3 VBG 36 mmol/L; Oxygen Saturation VBG 91.1 %; PCO2 VBG 69 mmHg (38-50); PO2 VBG 60 mmHg; pH VBG 7.33 (7.36-7.41)
[2022-09-30 07:03] LABS: Basophils # (auto) 0.02 K/uL (0-0.2); Basophils % (auto) 0.2 %; Hematocrit (blood only) 37.5 % (42.0-52.0); Hemoglobin 11.9 g/dl (14.0-18.0); Immature Granulocytes # (auto) 0.05 K/uL (0.01-0.20); Immature Granulocytes % (auto) 0.5 %; Lymphocytes # (auto) 0.77 K/uL (1.2-3.4); Lymphocytes % (auto) 8.2 %; Mean Corpuscular Hemoglobin 29.2 pg (25.0-34.0); Mean Corpuscular Hgb Conc 31.7 g/dL (32.0-36.0); Mean Corpuscular Volume 92.1 fL (80.0-100.0); Mean Platelet Volume 10.4 fL (9.4-12.4); Monocytes # (auto) 1.03 K/uL (0.11-0.59); Neutrophils # (auto) 7.53 K/uL (1.40-6.50); Neutrophils % (auto) 80.1 %; Platelet Count 118 K/uL (130-400); RDW Coefficient of Variation 13.9 % (11.5-14.5); RDW Standard Deviation 46.7 fL (36.4-46.3); Red Blood Count 4.07 M/uL (4.70-6.10)
[2022-09-30 07:13] LABS: Alanine Aminotransferase 10 U/L (7-52); Albumin Globulin Ratio 1.2 (0.9-2); Albumin Level 3.8 gm/dl (3.4-5.0); Alkaline Phosphatase 79 U/L (34-104); Anion Gap 6 (3-11); Aspartate Aminotransferase 18 U/L (13-39); BUN Creatinine Ratio 13.1 (10-20); Bilirubin,Total 0.4 mg/dl (0.2-1.0); Blood Urea Nitrogen 14 mg/dl (6-23); Calcium 9.2 mg/dl (8.6-10.3); Carbon Dioxide 35 mmol/L (21-32); Chloride 95 mmol/L (98-107); Globulin 3.2 gm/dl (2.5-4.0); Glucose 132 mg/dl (70-99(Fasting)); Potassium 4.1 mmol/L (3.5-5.1); Sodium 136 mmol/L (136-145)
[2022-09-30] MEDS ORDERED: CEFEPIME 2,000 MG/20 ML VIAL IV STA (07:13)
[2022-09-30] MEDS ORDERED: SODIUM CHLORIDE 0.9% 1000ML 1,000 ML IV SCH (07:15)
[2022-09-30 07:23] LABS: Partial Thromboplastin Ratio 1.1; Partial Thromboplastin Time 31.1 Seconds (21.0-31.0); Prothrombin Time 11.2 Seconds (9.0-12.0)
[2022-09-30 07:54] LABS: Troponin I High Sensitivity 74.2 pg/ml (0-20)
[2022-09-30 08:10] LABS: Base Excess ABG 3.9 mEq/L (-9-1.8); HCO3 ABG 33 mmol/L (19-24); Oxygen Saturation ABG > 100.0 % (90-95); PCO2 ABG 70 mmHg (35-46); PO2 ABG 196 mmHg (80-95); pH ABG 7.28 (7.35-7.45)
--- NOTE | 2022-09-30 08:13 | XRay Report ---
XR chest 1V portable HISTORY: 72 years-old Male Chest pain, nonspecific acute chest pain COMPARISON: 09/02/2022 TECHNIQUE: AP view of the chest FINDINGS: Cardiac silhouette is enlarged. Unchanged appearance of the mediastinal contours. Severe emphysema wi th chronic interstitial coarsening. Progressively worsened bibasilar and right midlung airspace opaci ties. No pneumothorax or large pleural effusion. Degenerative changes of the shoulders and spine. IMPRESSION: 1. Severe emphysema with chronic interstitial coarsening. 2. Bibasilar and right midlung consolidation suggestive of multifocal pneumonia. ACT 112: Negative or not required by law. The above report was generated using voice recognition software. It may contain grammatical, syntax o r spelling errors. Electronically signed by: Felton Cr M.D. 09/30/2022 8:12 AM
[2022-09-30 08:17] LABS: Albumin Level 3.5 gm/dl (3.4-5.0); Bilirubin,Total 0.4 mg/dl (0.2-1.0); Magnesium 1.9 mg/dl (1.7-2.4); Total Protein 6.4 gm/dl (6.0-8.3)
[2022-09-30 08:20] LABS: Allen Test POS (Pos)
[2022-09-30 08:27] LABS: Troponin I High Sensitivity 75.3 pg/ml (0-20)
[2022-09-30] MEDS ORDERED: SODIUM CHLORIDE 0.9% 1000ML 1,000 ML IV ONE (09:01)
--- NOTE | 2022-09-30 09:24 | Emergency Department Note ---
Impression & Plan Dyspnea, Hypoxia, Bilateral interstitial pneumonia ED Provider Note INFORMANT: Patient ED PROVIDER(S): Anand Pickard DO CHIEF COMPLAINT: Shortness of breath PLAN: Disposition: Admission Outpatient prescription management: none Discussion with: I spoke with the hospitalist, who will see the patient for admission/observation and further evaluation and consultation. MEDICAL DECISION MAKING: This is a 72-year-old male who presents to the ED with a chief complaint of shortness of breath. The patient uses CPAP at night. Apparently the daughter found the patient to be cyanotic with the tube disconnected. She placed him on 6 L of oxygen via nasal cannula and gave him a DuoNeb treatment. When EMS arrived they found him to be saturating around 70% on 6 L. He was cyanotic when they arrived. The patient is now awake and alert. They did place him on CPAP and transported him here. He is currently on BiPAP. He does report a cough for the past several days. No other specific complaints. His exam reveals diminished breath sounds bilaterally. He has some crackles in the bases. His skin color is not cyanotic at this time. His heart is regular rate and rhythm. Abdomen is soft nontender. CBC did not show leukocytosis or anemia. VBG shows acidosis. Hypercarbia also noted. Chest x-ray shows bilateral lower lobe pneumonias. Chemistry panel shows no significant electrolyte abnormality or kidney dysfunction. EKG shows sinus rhythm at a rate of 94. Troponin was elevated 75 possibly related to his recent hypoxic episode. A ABG shows a pH of 7.28 with a PCO2 of 70. This represents a respiratory acidosis. The patient will be seen by the hospitalist for further evaluation and care. The patient was treated emergency department with IV fluids. 2 L normal saline was administered. The patient was also given IV Rocephin. Vital signs are stable and therefore additional IV fluids were not given. The patient does not appear to be septic. Triage Nursing notes reviewed. Vital Signs: reviewed Prior /Outside records reviewed: none Differential diagnosis: The differential was considered includes acute myocardial infarction, acute coronary syndrome, myocarditis, pericarditis, pericardial effusions /tamponad, esophageal perforation, pulmonary embolism, pneumonia, pneumothorax, c ardiomyopathy, congestive heart, anemia , COPD/asthma exacerbation. Diagnostics, as interpreted by me: 12 lead ECG: Sinus rhythm rate of 94. No ST elevation. No PVCs. Normal QTc Cardiac Monitoring ordered: Sinus rhythm in the 80s and 90s Medical decision rules: none Imaging studies: Chest x-ray: Bilateral lower lobe pneumonia Procedures: ABG analysis: 7.28/70/196, represents a respiratory acidosis with adequate oxygenation on BiPAP. Critical care: none. HPI: See MDM above. PAST MEDICAL HISTORY: See Below PAST SURGICAL HISTORY: See Below SOCIAL HISTORY: See Below HOME MEDICATIONS: See Below ALLERGIES: See Below VITALS: See Below PHYSICAL EXAMINATION: See MDM for positive findings otherwise unremarkable. CONSTITUTIONAL/VITAL SIGNS: Reviewed GENERAL:done as appropriate INTEGUMENTARY: done as appropriate HEAD: done as appropriate EYES: done as appropriate RESPIRATORY: done as appropriate CARDIOVASCULAR:done as appropriate GI/ABDOMEN:done as appropriate EXTREMITIES: done as appropriate NEUROLOGICAL: done as appropriate PSYCHIATRIC:done as appropriate MUSCULOSKELETAL:done as appropriate TRIAGE NURSING DOCUMENTATION REVIEWED. Past Med/Surg History Medical History Anemia Anxiety Chronic dyspnea Chronic respiratory failure with hypoxia Cirrhosis of liver COPD (chronic obstructive pulmonary disease) with emphysema COPD exacerbation Depression End stage COPD GERD (gastroesophageal reflux disease) Hearing deficit [place] BRUN[place] 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 [place] exposure History of COVID-19 05/2020 - hospitalized at [facility] - sob, cough, generalized weakness --> pneumonia; still requiring more supplemental oxygen since having Covid (currently on 6 lpm cont home o2, prior to covid was only on 4 lpm) History of kidney stones History of tobacco abuse HTN (hypertension) On home O2 cont @ 6 lpm Osteoarthritis Palliative care encounter PTSD (post-traumatic stress disorder) Pulmonary nodules Thrombocytopenia Weakness Surgical History Dilatation of ureter H/O hernia repair History of appendectomy History of cardiac cath x 2 - most recent 2010 - no stents; also [place] [facility] [place] History of colonoscopy History of extraction of renal calculus History of tonsillectomy Loss of teeth due to extraction S/P arthroscopic surgery of right knee Family History Mother Colon cancer Father FH: kidney cancer Other Cancer Social History Smoking Status: Former smoker Tobacco Type: Cigarettes Cigarettes Per Day: 40 pack year hx; Second Hand Exposure: No; Hx Alcohol Use: Yes Alcohol type: hard liquor Hx Substance Use: No Preferred Language: Uzbek Communication Ability: Effective 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 Beliefs That Will Affect Care: None marital status: Current Living Situation: Spouse and Family Current Living Situation Comment: Lives with , son, DIL, grandkids 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 Feels Safe at Home: Yes Assistive Devices: Oxygen - Continuous and Walker Allergies Allergies Allergy/AdvReac Type Severity Reaction Status Date / Time bee venom protein (honey bee) Allergy Severe ANAPHYLAXIS Verified 08/26/22 18:23 amoxicillin Allergy Intermediate FACIAL Verified 08/26/22 18:23 SWELLING (EYES SWELLED SHUT) clavulanic acid Allergy Intermediate FACIAL Verified 08/26/22 18:23 SWELLING (EYES SWELLED SHUT) pneumococcal vaccine Allergy Intermediate SWELLING Verified 08/26/22 18:23 Yntpygg-RIJ-MxB Reductase Allergy Intermediate CPK'S GO Verified 08/26/22 18:23 Inhibitor THROUGH [Rztsnup-Uop-Bai Reductase ROOF Inhibitor] prednisone AdvReac Intermediate confusion Verified 08/26/22 18:23 and agitation Home Meds Home Medications Medication Instructions Recorded Confirmed omeprazole 20 mg capsule,delayed 20 mg PO BID 04/08/18 08/26/22 release sertraline 100 mg tablet 200 mg PO HS 04/08/18 08/26/22 trazodone 150 mg tablet 150 mg PO HS 04/08/18 08/26/22 albuterol sulfate 90 mcg/actuation 2 puff inhalation Q6H PRN 07/04/18 08/26/22 aerosol inhaler Shortness Of Breath Or Wheezing epinephrine 0.3 mg/0.3 mL 0.3 mg IM DIRECTED PRN Allergic 08/22/18 08/26/22 injection, auto-injector (EpiPen) Reaction cholecalciferol (vitamin D3) 25 2,000 unit PO QAM 08/19/19 08/26/22 mcg (1,000 unit) capsule (Vitamin D3) cyanocobalamin (vitamin B-12) 1,000 mcg PO 2XWK 12/19/20 08/26/22 1,000 mcg tablet (Vitamin B-12) ascorbic acid (vitamin C) 1,000 mg 1 g PO DAILY 06/11/22 08/26/22 tablet (Vitamin C) budesonide 0.25 mg/2 mL suspension 0 mg inhalation BID 06/11/22 08/26/22 for nebulization buspirone 15 mg tablet 7.5 mg PO HS 06/11/22 08/26/22 ipratropium 0.5 mg-albuterol 3 mg 3 ml NEB QID PRN Shortness Of 06/11/22 08/26/22 (2.5 mg base)/3 mL nebulization Breath Or Wheezing soln lactobacillus combination no.4 3 0 mmu cells PO DAILY 06/11/22 08/26/22 billion cell capsule (Probiotic) lanolin alcohols-mineral 1 applic topical DAILY PRN Dry Skin 06/11/22 08/26/22 oil-w.petrolatum-ceresin topical cream (Eucerin topical cream) potassium chloride 20 mEq 10 meq PO DAILY 06/11/22 08/26/22 tablet,extended release azithromycin 250 mg tablet 250 mg PO 3XWK 06/12/22 08/26/22 diltiazem HCl 240 mg 240 mg PO DAILY 06/12/22 08/26/22 capsule,extended release 24 hr (Cardizem CD) roflumilast 500 mcg tablet 500 mcg PO DAILY 06/12/22 08/26/22 (Daliresp) guaifenesin 600 mg tablet, 1,200 mg PO BID 08/26/22 08/26/22 extended release 12 hr (Mucinex) Previous Rx's Medication Instructions Recorded umeclidinium 62.5 mcg/actuation 1 inh inhalation DAILY 30 days #30 09/26/21 blister powder for inhalation ea (Incruse Ellipta) acetylcysteine 100 mg/mL (10 %) 2 ml inhalation BID #100 mL 10/10/21 solution formoterol fumarate 20 mcg/2 mL 20 mcg (2 mL) NEB BID 30 days #120 12/25/21 solution for nebulization mL (Perforomist) methylprednisolone 4 mg tablets in 4 mg PO DAILY #21 ea 09/02/22 a dose pack Results & Data (ED) Vital Signs Vital Signs - 24 hr 09/30/22 06:23 09/30/22 06:23 09/30/22 06:23 Temperature 36.8 C Temperature Source Oral Pulse Rate 106 H 99 H Pulse Rate [Right Finger] Pulse Rhythm [Right Finger] Pulse Strength [Right Finger] Respiratory Rate 21 Respiratory Effort / Characteristics Labored Non-Labored Respiratory Depth Normal Normal Respiratory Pattern Regular Blood Pressure 96/76 L Blood Pressure [Right Arm] Blood Pressure Mean 82 Blood Pressure Mean [Right Arm] Blood Pressure Position [Right Arm] Pulse Oximetry 99 Oxygen Delivery Method CPAP Room Air Fraction of Inspired Oxygen Sepsis Recent Fever Within 48 Hours No Sepsis New/Unexplained Change in Mental Status No Sepsis Action Taken by Nursing No Action Required 09/30/22 06:26 09/30/22 06:50 Temperature Temperature Source Pulse Rate 99 H Pulse Rate [Right Finger] 95 H Pulse Rhythm [Right Finger] Regular Pulse Strength [Right Finger] Normal Respiratory Rate 25 H 30 H Respiratory Effort / Characteristics Labored Respiratory Depth Respiratory Pattern Blood Pressure Blood Pressure [Right Arm] 118/80 Blood Pressure Mean Blood Pressure Mean [Right Arm] 92 Blood Pressure Position [Right Arm] Sitting Pulse Oximetry 98 99 Oxygen Delivery Method CPAP Fraction of Inspired Oxygen 75 Sepsis Recent Fever Within 48 Hours Sepsis New/Unexplained Change in Mental Status Sepsis Action Taken by Nursing Laboratory Data 09/30/22 06:30 09/30/22 06:30 Lab Results 09/30/22 09/30/22 09/30/22 Range/Units 06:30 06:30 06:30 WBC 9.40 (4.8-10.8) K/ul RBC 4.07 L (4.70-6.10) M/uL Hgb 11.9 L (14.0-18.0) g/dl Hct 37.5 L (42.0-52.0) % MCV 92.1 (80.0-100.0) fL MCH 29.2 (25.0-34.0) pg MCHC 31.7 L (32.0-36.0) g/dL RDW Std Deviation 46.7 H (36.4-46.3) fL RDW Coeff of Ren 13.9 (11.5-14.5) % Plt Count 118 L (130-400) K/uL MPV 10.4 (9.4-12.4) fL Immature Gran % (Auto) 0.5 % Neut % (Auto) 80.1 % Lymph % (Auto) 8.2 % Brule % (Auto) 11.0 % Eos % (Auto) 0.0 % Baso % (Auto) 0.2 % Neut # (Auto) 7.53 H (1.40-6.50) K/uL Lymph # (Auto) 0.77 L (1.2-3.4) K/uL Brule # (Auto) 1.03 H (0.11-0.59) K/uL Eos # (Auto) 0.00 (0-0.50) K/uL Baso # (Auto) 0.02 (0-0.2) K/uL Immature Gran # (Auto) 0.05 (0.01-0.20) K/uL PT 11.2 (9.0-12.0) Seconds INR 1.0 (0.9-1.1) APTT 31.1 H (21.0-31.0) Seconds PTT Ratio 1.1 ABG pH (7.35-7.45) ABG pCO2 (35-46) mmHg ABG pO2 (80-95) mmHg ABG HCO3 (19-24) mmol/L ABG O2 Saturation (90-95) % ABG Base Excess (-9-1.8) mEq/L Wyatt Test (Pos) VBG pH (7.36-7.41) VBG pCO2 (38-50) mmHg VBG pO2 mmHg VBG HCO3 mmol/L VBG O2 Saturation % VBG Base Excess mEq/L Oxygen Given Sodium 136 (136-145) mmol/L Potassium 4.1 (3.5-5.1) mmol/L Chloride 95 L (98-107) mmol/L Carbon Dioxide 35 H (21-32) mmol/L Anion Gap 6 (3-11) BUN 14 (6-23) mg/dl Creatinine 1.07 (0.6-1.4) mg/dl Est Cr Clr Drug Dosing Not Reportable Est GFR ( Amer) 80.0 ml/min Est GFR (Non-Af Amer) 69.0 ml/min BUN/Creatinine Ratio 13.1 (10-20) Glucose 132 H (70-99(Fasting)) mg/dl Lactate (0.4-2.0) mmol/L Calcium 9.2 (8.6-10.3) mg/dl Magnesium (1.7-2.4) mg/dl Total Bilirubin 0.4 (0.2-1.0) mg/dl Direct Bilirubin (0-0.2) mg/dl AST 18 (13-39) U/L ALT 10 (7-52) U/L Alkaline Phosphatase 79 (34-104) U/L Troponin I High Sens 74.2 H* (0-20) pg/ml Total Protein 7.0 (6.0-8.3) gm/dl Albumin 3.8 (3.4-5.0) gm/dl Globulin 3.2 (2.5-4.0) gm/dl Albumin/Globulin Ratio 1.2 (0.9-2) Procalcitonin (0-0.5) ng/ml SARS-CoV-2, RNA, NAAT (NEGATIVE) 09/30/22 09/30/22 09/30/22 Range/Units 06:30 07:41 07:41 WBC (4.8-10.8) K/ul RBC (4.70-6.10) M/uL Hgb (14.0-18.0) g/dl Hct (42.0-52.0) % MCV (80.0-100.0) fL MCH (25.0-34.0) pg MCHC (32.0-36.0) g/dL RDW Std Deviation (36.4-46.3) fL RDW Coeff of Ren (11.5-14.5) % Plt Count (130-400) K/uL MPV (9.4-12.4) fL Immature Gran % (Auto) % Neut % (Auto) % Lymph % (Auto) % Brule % (Auto) % Eos % (Auto) % Baso % (Auto) % Neut # (Auto) (1.40-6.50) K/uL Lymph # (Auto) (1.2-3.4) K/uL Brule # (Auto) (0.11-0.59) K/uL Eos # (Auto) (0-0.50) K/uL Baso # (Auto) (0-0.2) K/uL Immature Gran # (Auto) (0.01-0.20) K/uL PT (9.0-12.0) Seconds INR (0.9-1.1) APTT (21.0-31.0) Seconds PTT Ratio ABG pH (7.35-7.45) ABG pCO2 (35-46) mmHg ABG pO2 (80-95) mmHg ABG HCO3 (19-24) mmol/L ABG O2 Saturation (90-95) % ABG Base Excess (-9-1.8) mEq/L Wyatt Test (Pos) VBG pH 7.33 L (7.36-7.41) VBG pCO2 69 H (38-50) mmHg VBG pO2 60 mmHg VBG HCO3 36 mmol/L VBG O2 Saturation 91.1 % VBG Base Excess 7.9 mEq/L Oxygen Given Sodium (136-145) mmol/L Potassium (3.5-5.1) mmol/L Chloride (98-107) mmol/L Carbon Dioxide (21-32) mmol/L Anion Gap (3-11) BUN (6-23) mg/dl Creatinine (0.6-1.4) mg/dl Est Cr Clr Drug Dosing Est GFR ( Amer) ml/min Est GFR (Non-Af Amer) ml/min BUN/Creatinine Ratio (10-20) Glucose (70-99(Fasting)) mg/dl Lactate 0.6 (0.4-2.0) mmol/L Calcium (8.6-10.3) mg/dl Magnesium 1.9 (1.7-2.4) mg/dl Total Bilirubin 0.4 (0.2-1.0) mg/dl Direct Bilirubin 0.0 (0-0.2) mg/dl AST 16 (13-39) U/L ALT 8 (7-52) U/L Alkaline Phosphatase 71 (34-104) U/L Troponin I High Sens 75.3 H* (0-20) pg/ml Total Protein 6.4 (6.0-8.3) gm/dl Albumin 3.5 (3.4-5.0) gm/dl Globulin (2.5-4.0) gm/dl Albumin/Globulin Ratio (0.9-2) Procalcitonin (0-0.5) ng/ml SARS-CoV-2, RNA, NAAT (NEGATIVE) 09/30/22 09/30/22 09/30/22 Range/Units 07:41 07:43 08:00 WBC (4.8-10.8) K/ul RBC (4.70-6.10) M/uL Hgb (14.0-18.0) g/dl Hct (42.0-52.0) % MCV (80.0-100.0) fL MCH (25.0-34.0) pg MCHC (32.0-36.0) g/dL RDW Std Deviation (36.4-46.3) fL RDW Coeff of Ren (11.5-14.5) % Plt Count (130-400) K/uL MPV (9.4-12.4) fL Immature Gran % (Auto) % Neut % (Auto) % Lymph % (Auto) % Brule % (Auto) % Eos % (Auto) % Baso % (Auto) % Neut # (Auto) (1.40-6.50) K/uL Lymph # (Auto) (1.2-3.4) K/uL Brule # (Auto) (0.11-0.59) K/uL Eos # (Auto) (0-0.50) K/uL Baso # (Auto) (0-0.2) K/uL Immature Gran # (Auto) (0.01-0.20) K/uL PT (9.0-12.0) Seconds INR (0.9-1.1) APTT (21.0-31.0) Seconds PTT Ratio ABG pH 7.28 L (7.35-7.45) ABG pCO2 70 H (35-46) mmHg ABG pO2 196 H (80-95) mmHg ABG HCO3 33 H (19-24) mmol/L ABG O2 Saturation > 100.0 H (90-95) % ABG Base Excess 3.9 H (-9-1.8) mEq/L Waytt Test POS (Pos) VBG pH (7.36-7.41) VBG pCO2 (38-50) mmHg VBG pO2 mmHg VBG HCO3 mmol/L VBG O2 Saturation % VBG Base Excess mEq/L Oxygen Given 95% Sodium (136-145) mmol/L Potassium (3.5-5.1) mmol/L Chloride (98-107) mmol/L Carbon Dioxide (21-32) mmol/L Anion Gap (3-11) BUN (6-23) mg/dl Creatinine (0.6-1.4) mg/dl Est Cr Clr Drug Dosing Est GFR ( Amer) ml/min Est GFR (Non-Af Amer) ml/min BUN/Creatinine Ratio (10-20) Glucose (70-99(Fasting)) mg/dl Lactate (0.4-2.0) mmol/L Calcium (8.6-10.3) mg/dl Magnesium (1.7-2.4) mg/dl Total Bilirubin (0.2-1.0) mg/dl Direct Bilirubin (0-0.2) mg/dl AST (13-39) U/L ALT (7-52) U/L Alkaline Phosphatase (34-104) U/L Troponin I High Sens (0-20) pg/ml Total Protein (6.0-8.3) gm/dl Albumin (3.4-5.0) gm/dl Globulin (2.5-4.0) gm/dl Albumin/Globulin Ratio (0.9-2) Procalcitonin < 0.05 (0-0.5) ng/ml SARS-CoV-2, RNA, NAAT NEGATIVE (NEGATIVE) Administered Medications Discontinued Medications Sodium Chloride (Nss 1000ml) 1,000 mls @ 999 mls/hr IV .[id number] [facility] Stop: 09/30/22 08:15 Last Admin: 09/30/22 07:42 Dose: 999 mls/hr Documented By: PETE Cefepime HCl (Maxipime) 2,000 mg in 20 mls @ 5 mls/min IV NOW STA; Protocol Stop: 09/30/22 07:16 Last Admin: 09/30/22 07:54 Dose: 5 mls/min Documented By: PETE Imaging Data Radiologist's Impression: Chest X-Ray 09/30/22 06:33 XR chest 1V portable HISTORY: 72 years-old Male Chest pain, nonspecific acute chest pain COMPARISON: 09/02/2022 TECHNIQUE: AP view of the chest FINDINGS: Cardiac silhouette is enlarged. Unchanged appearance of the mediastinal contours. Severe emphysema with chronic interstitial coarsening. Progressively worsened bibasilar and right midlung airspace opacities. No pneumothorax or large pleural effusion. Degenerative changes of the shoulders and spine. IMPRESSION: 1. Severe emphysema with chronic interstitial coarsening. 2. Bibasilar and right midlung consolidation suggestive of multifocal pneumonia. ACT 112: Negative or not required by law. The above report was generated using voice recognition software. It may contain grammatical, syntax or spelling errors. Electronically signed by: Felton Cr M.D. 09/30/2022 8:12 AM Discharge Plan Visit Data Chief Complaint: Shortness of Breath/Dyspnea Stated Complaint: SHORTNESS OF BREATH ED Provider: Anand Pickard Discharge Problem: Dyspnea, Hypoxia, Bilateral interstitial pneumonia Patient Disposition: Being Evaluated by Hospitalist Forms Stand Alone Forms: My [facility], Virtual Emergency Department, Important Visit Information Prescriptions Prescriptions: No Action formoterol fumarate [Perforomist] 20 mcg/2 mL solution for nebulization 20 mcg NEB BID 30 Days Qty: 120 5RF acetylcysteine 100 mg/mL (10 %) solution 2 ml inhalation BID Qty: 100 3RF Rx Instructions: mix with nss albuterol sulfate 90 mcg/actuation Hfa Aerosol Inhaler 2 puff INHALATION Q6H PRN (Reason: Shortness Of Breath Or Wheezing) sertraline 100 mg Tablet 200 mg PO HS trazodone 150 mg Tablet 150 mg PO HS omeprazole 20 mg Capsule,Delayed Release(Dr/Ec) 20 mg PO BID epinephrine [EpiPen] 0.3 mg/0.3 mL Auto-Injector 0.3 mg IM DIRECTED PRN (Reason: Allergic Reaction) cholecalciferol (vitamin D3) [Vitamin D3] 25 mcg (1,000 unit) Capsule 2,000 unit PO QAM cyanocobalamin (vitamin B-12) [Vitamin B-12] 1,000 mcg Tablet 1,000 mcg PO 2XWK Rx Instructions: TAKE ON MON & FRI. Incruse Ellipta 62.5 mcg/actuation Blister With Device 1 inh inhalation DAILY 30 Days Qty: 30 2RF budesonide 0.25 mg/2 mL Suspension For Nebulization 0 mg INHALATION BID Rx Instructions: unknown srtength buspirone 15 mg Tablet 7.5 mg PO HS ascorbic acid (vitamin C) [Vitamin C] 1,000 mg Tablet 1 g PO DAILY Eucerin Cream 1 applic TOPICAL DAILY PRN (Reason: Dry Skin) Probiotic 3 billion cell Capsule 0 mmu cells PO DAILY Rx Instructions: administer with a meal potassium chloride 20 mEq Tablet Extended Release 10 meq PO DAILY ipratropium-albuterol 0.5 mg-3 mg(2.5 mg base)/3 mL solution for nebulization 3 ml NEB QID PRN (Reason: Shortness Of Breath Or Wheezing) Rx Instructions: also q4h prn for sob/wheezing azithromycin 250 mg Tablet 250 mg PO 3XWK Rx Instructions: TAKE THIS MED EVERY MON/WED/FRI diltiazem HCl [Cardizem CD] 240 mg Capsule,Extended Release 24hr 240 mg PO DAILY roflumilast [Daliresp] 500 mcg Tablet 500 mcg PO DAILY guaifenesin [Mucinex] 600 mg Tablet Extended Release 12hr 1,200 mg PO BID methylprednisolone 4 mg tablets,dose pack 4 mg PO DAILY Qty: 21 0RF Referrals Referrals: Valencia Patel PA-C [Primary Care Provider] -
[2022-09-30] MEDS ORDERED: ALBUT/IPRATROP 3MG/0.5MG NEB 3 ML VIAL NEB STA (12:12)
[2022-09-30] MEDS ORDERED: POLYETHYLENE (MIRALAX) 17 GM PACK PO PRN (13:08)
[2022-09-30] MEDS ORDERED: ALBUT/IPRATROP 3MG/0.5MG NEB 3 ML VIAL NEB PRN (13:08)
--- NOTE | 2022-09-30 13:29 | History & Physical Report ---
Date of Service September 30, 2022 Assessment & Plan (1) Acute on chronic respiratory failure with hypoxia and hypercapnia: (2) Pneumonia: (3) COPD exacerbation: Plan: Admit to telemetry Patient presenting from home with reports of acute onset shortness of breath aft er his oxygen became disconnected from his CPAP overnight. Patient reports he was saturating in the 50s at home. In the ED, initially placed on BiPAP, now transitioned to 10 L of high flow nasal cannula Initial ABG-pH 7.28, PCO2 70, PO2 196, HCO3 33. Repeat pending. CXR shows bibasilar and right midlung consolidation consistent with multifocal pneumonia. Does not appear septic --afebrile, no leukocytosis, procalcitonin negative. Concern for possible aspiration. Received IV cefepime in the ED, will continue with and add Flagyl for aspiration coverage. Check MRSA nasal swab and a positive will add Vanco. IV Solu-Medrol Follow blood and sputum cultures Speech eval Aggressive pulmonary toilet with nebs, Mucinex, flutter valve. Continue other routine home inhalers and nebs. (4) Elevated troponin: Plan: HS trop 74.2 --> 75.3 No reports of chest pain, EKG without acute ST changes Likely demand ischemia in the setting of profound hypoxia. Continue to trend troponin, check resting echo (5) PTSD (post-traumatic stress disorder): (6) Anxiety: (7) Depression: Plan: Continue home meds DVT PROPHYLAXIS SQ Lovenox Dispo- Patient found to be covered in bugs and bug bites. Will need home health at a minimum at discharge. PT/OT evals, case management to follow. Patient seen in collaboration with Dr. Fry. I spent a total of 75 minutes coordinating, documenting, and providing care for this patient excluding time spent in the performance of separately billed services. This included personally reviewing all current laboratories and imaging studies, medication reconciliation, outpatient chart review, and discussion with specialists. Admission and Anticipated Discharge Date Admission Date: September 30, 2022 History of Present Illness Chief Complaint: Shortness of breath Primary Care Provider: Valencia Patel PA-C 72-year-old male with PMH end-stage, severe, oxygen dependent COPD on 6 L, cirrhosis, HTN, PTSD, depression and anxiety, history of tobacco abuse, chronic anemia, and other problems listed below who presents to the ED for evaluation of shortness of breath. History obtained from patient and review of recent a dmission records. Patient recently discharged from [facility] on 09/02. Patient reports he has been feeling poorly since returning home from the hospital. Reports progressive worsening shortness of breath, wheezing, cough. Overnight, patient's oxygen became detached from his CPAP machine and he woke up feeling very short of breath. Patient states that he was saturating in the 50s. Patient reports his cough has been productive for white sputum. Denies fevers and chills. No chest pain or shortness of breath. Denies lightheadedness, dizziness, diaphoresis, syncopal events. No abdominal pain, nausea, vomiting. Reports chronic diarrhea which is unchanged from baseline. No urinary symptoms. In the ED, patient was initially placed on BiPAP and is now on 10 L high flow nasal cannula. ABG shows pH 7.28, PCO2 70, PO2 196, HCO3 33. CXR shows bibasilar and right midlung consolidation suggestive of multifocal pneumonia. Patient was given nebulizer treatment and IV cefepime. Allergies Allergy/AdvReac Type Severity Reaction Status Date / Time bee venom protein (honey bee) Allergy Severe ANAPHYLAXIS Verified 08/26/22 18:23 amoxicillin Allergy Intermediate FACIAL Verified 08/26/22 18:23 SWELLING (EYES SWELLED SHUT) clavulanic acid Allergy Intermediate FACIAL Verified 08/26/22 18:23 SWELLING (EYES SWELLED SHUT) pneumococcal vaccine Allergy Intermediate SWELLING Verified 08/26/22 18:23 Qwldjcb-PCZ-DbU Reductase Allergy Intermediate CPK'S GO Verified 08/26/22 18:23 Inhibitor THROUGH [Eufshzs-Yxz-Enb Reductase ROOF Inhibitor] prednisone AdvReac Intermediate confusion Verified 08/26/22 18:23 and agitation Home Medications Medication Instructions Recorded Confirmed Type omeprazole 20 mg capsule,delayed 20 mg PO BID 04/08/18 09/30/22 History release sertraline 100 mg tablet 200 mg PO HS 04/08/18 09/30/22 History trazodone 150 mg tablet 150 mg PO HS 04/08/18 09/30/22 History albuterol sulfate 90 mcg/actuation 2 puff inhalation Q6H PRN 07/04/18 09/30/22 History aerosol inhaler Shortness Of Breath Or Wheezing epinephrine 0.3 mg/0.3 mL 0.3 mg IM DIRECTED PRN Allergic 08/22/18 09/30/22 History injection, auto-injector (EpiPen) Reaction cholecalciferol (vitamin D3) 25 2,000 unit PO QAM 08/19/19 09/30/22 History mcg (1,000 unit) capsule (Vitamin D3) cyanocobalamin (vitamin B-12) 1,000 mcg PO 2XWK 12/19/20 09/30/22 History 1,000 mcg tablet (Vitamin B-12) umeclidinium 62.5 mcg/actuation 1 inh inhalation DAILY 30 days #30 09/26/21 09/30/22 Rx blister powder for inhalation ea (Incruse Ellipta) acetylcysteine 100 mg/mL (10 %) 2 ml inhalation BID #100 mL 10/10/21 09/30/22 Rx solution formoterol fumarate 20 mcg/2 mL 20 mcg (2 mL) NEB BID 30 days #120 12/25/21 09/30/22 Rx solution for nebulization mL (Perforomist) ascorbic acid (vitamin C) 1,000 mg 1 g PO DAILY 06/11/22 09/30/22 History tablet (Vitamin C) budesonide 0.25 mg/2 mL suspension 0.5 mg inhalation BID 06/11/22 09/30/22 History for nebulization buspirone 15 mg tablet 7.5 mg PO HS 06/11/22 09/30/22 History ipratropium 0.5 mg-albuterol 3 mg 3 ml NEB QID PRN Shortness Of 06/11/22 09/30/22 History (2.5 mg base)/3 mL nebulization Breath Or Wheezing soln lactobacillus combination no.4 3 0 mmu cells PO DAILY 06/11/22 09/30/22 History billion cell capsule (Probiotic) lanolin alcohols-mineral 1 applic topical DAILY PRN Dry Skin 06/11/22 09/30/22 History oil-w.petrolatum-ceresin topical cream (Eucerin topical cream) potassium chloride 20 mEq 10 meq PO DAILY 06/11/22 09/30/22 History tablet,extended release azithromycin 250 mg tablet 250 mg PO 3XWK 06/12/22 09/30/22 History diltiazem HCl 240 mg 240 mg PO DAILY 06/12/22 09/30/22 History capsule,extended release 24 hr (Cardizem CD) roflumilast 500 mcg tablet 500 mcg PO DAILY 06/12/22 09/30/22 History (Daliresp) guaifenesin 600 mg tablet, 1,200 mg PO BID 08/26/22 09/30/22 History extended release 12 hr (Mucinex) Past Med/Surg History Medical History (Updated 09/30/22 @ 13:32 by MAYUR Collins) Anemia Anxiety Chronic dyspnea Chronic respiratory failure with hypoxia Cirrhosis of liver COPD (chronic obstructive pulmonary disease) with emphysema Depression End stage COPD GERD (gastroesophageal reflux disease) Hearing deficit [place] 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 [place]cano exposure History of COVID-19 05/2020 - hospitalized at [facility] - sob, cough, generalized weakness --> pneumonia; still requiring more supplemental oxygen since having Covid (currently on 6 lpm cont home o2, prior to covid was only on 4 lpm) History of kidney stones History of tobacco abuse HTN (hypertension) Observed seizure-like activity On home O2 cont @ 6 lpm Osteoarthritis PTSD (post-traumatic stress disorder) Pulmonary nodules Thrombocytopenia Surgical History Dilatation of ureter H/O hernia repair History of appendectomy History of cardiac cath x 2 - most recent [place] 2010 - no stents; also cath years prior at [facility] and no stents History of colonoscopy History of extraction of renal calculus History of tonsillectomy Loss of teeth due to extraction S/P arthroscopic surgery of right knee Family History Mother Colon cancer Father FH: kidney cancer Other Cancer Social History Smoking Status: Former smoker Tobacco Type: Cigarettes Cigarettes Per Day: 40 pack year hx; Second Hand Exposure: No; Hx Alcohol Use: Yes Alcohol type: hard liquor Hx Substance Use: No Preferred Language: Tajik Communication Ability: Effective Pharmacy Cashier Required: No Beliefs That Will Affect Care: None marital status: Current Living Situation: Spouse and Family Current Living Situation Comment: Lives with , son, DIL, grandkids 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 Other Information That Helps Us Care for You: No Feels Safe at Home: Yes Safety Concerns: Feels Safe At This Time Assistive Devices: None, Oxygen - Continuous and Walker Review of Systems Review of Systems: ROS per HPI, all other systems reviewed and negative Physical Exam Constitutional: + thin Chronically ill-appearing Eyes: PERRL, conjunctivae normal, anicteric sclerae ENMT: external ear and nose normal, oropharynx normal Respiratory: normal respiratory effort and + cough; no respiratory distress Auscultation: + wheezes (Bilateral, scattered, expiratory) Cardiovascular: Rate/Rhythm: regular rate and regular rhythm Vessels: normal peripheral pulses Extremities: no edema Gastrointestinal (Abdomen): normal bowel sounds, soft, nontender, no hepatosplenomegaly Musculoskeletal: no cyanosis or clubbing, extremities motor strength 5/5 Skin: no rashes, warm and dry Scattered pinpoint bug bites over both lower extremities Neurologic: PERRL, EOMI, accommodation nl, no face palsy, no dysarthria Psychiatric: A+Ox3, euthymic affect Results & Data Results & Data Vital Signs (Past 12 Hours) Vital Signs Temp Pulse Pulse Resp BP BP Pulse Ox 09/30/22 11:48 98 H 99 09/30/22 11:21 102 H 93 09/30/22 11:21 93 09/30/22 11:21 81 L 09/30/22 09:00 76 16 134/76 98 09/30/22 06:50 95 H 30 H 118/80 99 09/30/22 06:26 99 H 25 H 98 09/30/22 06:23 99 H 09/30/22 06:23 09/30/22 06:23 36.8 C 106 H 21 96/76 L 99 O2 Del Method O2 Flow Rate FiO2 09/30/22 11:48 High Flow Nasal Cannula 10 09/30/22 11:21 High Flow Nasal Cannula 13 09/30/22 11:21 High Flow Nasal Cannula 09/30/22 11:21 High Flow Nasal Cannula 10 09/30/22 09:00 09/30/22 06:50 CPAP 09/30/22 06:26 75 09/30/22 06:23 09/30/22 06:23 Room Air 09/30/22 06:23 CPAP Laboratory Results Short CBC 09/30/22 Range/Units 06:30 WBC 9.40 (4.8-10.8) K/ul Hgb 11.9 L (14.0-18.0) g/dl Hct 37.5 L (42.0-52.0) % Plt Count 118 L (130-400) K/uL BMP 09/30/22 06:30 Sodium 136 Potassium 4.1 Chloride 95 L Carbon Dioxide 35 H BUN 14 Creatinine 1.07 Glucose 132 H Calcium 9.2 Liver Function 09/30/22 09/30/22 Range/Units 06:30 07:41 Total Bilirubin 0.4 0.4 (0.2-1.0) mg/dl Direct Bilirubin 0.0 (0-0.2) mg/dl AST 18 16 (13-39) U/L ALT 10 8 (7-52) U/L Alkaline Phosphatase 79 71 (34-104) U/L Albumin 3.8 3.5 (3.4-5.0) gm/dl Diagnostic Findings Chest X-Ray 09/30/22 06:33 XR chest 1V portable HISTORY: 72 years-old Male Chest pain, nonspecific acute chest pain COMPARISON: 09/02/2022 TECHNIQUE: AP view of the chest FINDINGS: Cardiac silhouette is enlarged. Unchanged appearance of the mediastinal contours. Severe emphysema with chronic interstitial coarsening. Progressively w orsened bibasilar and right midlung airspace opacities. No pneumothorax or large pleural effusion. Degenerative changes of the shoulders and spine. IMPRESSION: 1. Severe emphysema with chronic interstitial coarsening. 2. Bibasilar and right midlung consolidation suggestive of multifocal pneumonia. ACT 112: Negative or not required by law. The above report was generated using voice recognition software. It may contain grammatical, syntax or spelling errors. Electronically signed by: Felton Cr M.D. 09/30/2022 8:12 AM Code Status & VTE Plan Code Status Patient wishes to be a full code without invasive ventilation as per my discussion with him. VTE Prophylaxis Plan VTE Prophylaxis will be ordered: Yes Supervising Physician Co-Signing Physician Notes I have seen and examined the patient and have discussed the case with the provider above. I agree with the assessment and plan as stated. 72-year-old end-stage severe COPD patient on 6 L of oxygen at baseline and with cirrhosis depression chronic anemia and other problems presented with acute hypoxia and respiratory distress after being found unplugged from his oxygen machine which he wears overnight. Per EMS report, he was found cyanotic. He was administered a nebulizer in the field and BiPAP was applied. In the ER he was oriented although respiratory acidosis was present on the ABG. He was notably covered in large bugs with approximately 6 live bugs found on his person under the blanket. He reports that he knows he had bugs crawling on him and they are in his house. When I spoke to his daughter who is his next-door neighbor and engineer intern, she was unaware of this but reports that she makes him food 3 times a day and sets out his pills. This patient bathes himself with using [facility]. He does have a bathtub but does not take a shower typically because of the oxygen needs. The patient was recently admitted for parainfluenza causing exacerbation of COPD. Patient reports that he never felt better when he went home and cough progressively got worse since that time. Daughter supports this. Today he is wheezing. He denies any chest pain. He has intermittent longstanding diarrhea and uses Imodium intermittently. He currently states he had diarrhea approximately 3 times daily for the last 2 days. On physical exam he is well-nourished well-developed with multiple bites all over his legs. He is on BiPAP and in no acute respiratory distress. Cardiovascular exam reveals S1-S2 heard with no murmurs rubs or gallops. He has no peripheral edema. Lungs are wheezy throughout. Airflow is diminished throughout. Abdomen is soft nontender nondistended. There are no gross focal neurologic deficits present and there are no gross focal musculoskeletal deficits. Work-up in the ER reveals a chest x-ray with new bibasilar and right midlung consolidation consistent with multifocal pneumonia. Severe emphysema with chronic interstitial coarsening is also noted. ABG as noted above. He has no evidence of leukocytosis and a chronic baseline anemia with H&H of 12 and 37. Chemistry panel is within normal limits. Lactate is negative. Hepatic panel within normal limits. Troponin is elevated at 74.2 and when trended was 75.3 then 56.8. EKG reveals no acute ischemic change. Urinalysis without evidence of infection, likely some contamination. COVID swab was negative. He was started on IV fluids, cefepime and given an neb treatment in the ER. He was started on methylprednisolone. 1. Acute respiratory failure with hypoxia and hypercarbia 2. Severe emphysema with baseline oxygen needs of 6 L/min via nasal cannula 3. COPD exacerbation secondary to pneumonia, possible aspiration contributing 4. Infestation of the home 5. Elevated troponin likely secondary to profound hypoxia/demand ischemia Agree with plan above to continue cefepime and add Flagyl for anaerobic coverage. Agree with speech evaluation. Office of aging should be notified regarding his infestation with bugs. It may be helpful to have home health services with a nurse who could come out and bathe him a few times a week. He has very limited functional capacity secondary to end-stage COPD. Continue BiPAP and supportive care with oxygen today and PT/OT evaluations when feeling improved. I did contact daughter by phone and explained the infestation issue. She verbalized understanding. Ang, DO
[2022-09-30] MEDS: ACETAMINOPHEN 325 MG TAB PO PRN (14:04)
--- NOTE | 2022-09-30 14:19 | Electrocardiogram Report ---
Test Reason : Blood Pressure : / mmHG Vent. Rate : 094 BPM Atrial Rate : 094 BPM P-R Int : 148 ms QRS Dur : 074 ms QT Int : 370 ms P-R-T Axes : 048 -56 040 degrees QTc Int : 462 ms Normal sinus rhythm Left axis deviation Abnormal ECG When compared with ECG of 26-AUG-2022 15:59, No significant change was found Confirmed by Reinaldo Wan ([id number]) on 09/30/2022 2:18:58 PM Referred By: REFERRED SELF Confirmed By:Reinaldo Wan
[2022-09-30 15:02] LABS: Base Excess ABG 6.4 mEq/L (-9-1.8); HCO3 ABG 35 mmol/L (19-24); Oxygen Saturation ABG 96.6 % (90-95); PCO2 ABG 72 mmHg (35-46); PO2 ABG 78 mmHg (80-95)
[2022-09-30 15:05] LABS: Allen Test Pos (Pos)
[2022-09-30] MEDS: CEFEPIME 2,000 MG in SYRINGE 0 ML IV SCH ×2 (15:25→23:41)
[2022-09-30] MEDS: metroNIDAZOLE 500 MG/100 ML BAG IV SCH ×2 (15:26→21:06)
[2022-09-30] MEDS: methylPREDNISolone 40 MG in SYRINGE 0 ML IV SCH ×2 (15:41→21:11)
[2022-09-30 15:56] LABS: Appearance Urine Turbid (Clear); Bacteria Urine Automated Negative (Negative); Bilirubin Urine Negative (Negative); Blood Urine 1+ (Negative); Color Urine Dark Yellow; Epithelial Cell Urine Auto >30 /lpf (0-5); Glucose Urine UA Negative (Negative); Ketones Urine Negative (Negative); Leukocyte Esterase Urine 3+ (Negative); Nitrite Urine Negative (Negative); Protein Urine 2+ (Negative); RBC Urine Automated 0-4 /hpf (0-4); Specific Gravity Urine 1.021 (1.000-1.030); Urobilinogen Urine Negative (Negative); WBC Urine Automated >30 /hpf (0-5); pH Urine 5.5 (4.5-7.5)
[2022-09-30 16:09] LABS: Cast Urine Automated 0 /lpf (0-5)
[2022-09-30] MEDS: traMADol HCL 50 MG TABLET PO PRN ×2 (16:35→21:11)
[2022-09-30] MEDS: FORMOTEROL 20 MCG/2 ML VIAL NEB SCH (18:38)
[2022-09-30] MEDS: BUDESONIDE 0.25 MG/2 ML VIAL (PULMICORT) INH SCH (18:39)
[2022-09-30] MEDS: ACETYLCYSTEINE 10% INHAL SOLN 4 ML **DISPENSED BY RESP. INH SCH (18:42)
[2022-09-30 18:48] LABS: Allen Test POS (Pos); Base Excess ABG 10.9 mEq/L (-9-1.8); HCO3 ABG 40 mmol/L (19-24); Oxygen Saturation ABG 94.3 % (90-95); PCO2 ABG 74 mmHg (35-46); PO2 ABG 63 mmHg (80-95); pH ABG 7.34 (7.35-7.45)
[2022-09-30] MEDS: PANTOprazole 40 MG TAB PO SCH (21:09)
[2022-09-30] MEDS: guaiFENesin 600 MG TABCR PO SCH (21:09)
[2022-09-30] MEDS: SERTRALINE HCL 100 MG TABLET PO SCH (21:10)
[2022-09-30] MEDS: busPIRone 7.5 MG TAB PO SCH (21:11)
[2022-09-30] MEDS: traZODone HCL 50 MG TAB PO SCH (21:12)
[2022-10-01] MEDS: FORMOTEROL 20 MCG/2 ML VIAL NEB SCH ×2 (05:19→19:34)
[2022-10-01] MEDS: ACETYLCYSTEINE 10% INHAL SOLN 4 ML **DISPENSED BY RESP. INH SCH ×2 (05:20→19:34)
[2022-10-01] MEDS: BUDESONIDE 0.25 MG/2 ML VIAL (PULMICORT) INH SCH ×2 (05:20→19:34)
[2022-10-01] MEDS: metroNIDAZOLE 500 MG/100 ML BAG IV SCH ×3 (05:45→21:46)
[2022-10-01 06:21] LABS: A calco-baum cmplx NotReported Not Detected (NotDetected); Bact fragilis Not Reported Not Detected (NotDetected); C auris Not Reported Not Detected (NotDetected); Calbicans Not Reported Not Detected (NotDetected); Candida glabrata Not Reported Not Detected (NotDetected); Candida krusei Not Reported Not Detected (NotDetected); Cneoformans/gatti Not Reported Not Detected (NotDetected); Cparapsilosis Not Reported Not Detected (NotDetected); Ctropicalis Not Reported Not Detected (NotDetected); E cloacae compx Not Reported Not Detected (NotDetected); Efaecalis Not Reported Not Detected (NotDetected); Efaecium Not Reported Not Detected (NotDetected); Enterobacterales Not Reported Not Detected (NotDetected); Escherichia coli Not Reported Not Detected (NotDetected); H influenzae Not Reported Not Detected (NotDetected); K aerogenes Not Reported Not Detected (NotDetected); Koxytoca Not Reported Not Detected (NotDetected); Kpneumoniae grp Not Reported Not Detected (NotDetected); Lmonocyt Not Reported Not Detected (NotDetected); N meningitidis Not Reported Not Detected (NotDetected); P aeruginosa Not Reported Not Detected (NotDetected); Proteus spp Not Reported Not Detected (NotDetected); Salmonella spp Not Reported Not Detected (NotDetected); Smarcescens Not Reported Not Detected (NotDetected); Staph lugdunensis Not Reported Not Detected (NotDetected); Staph spp. Not Reported DETECTED (NotDetected); Staphaureus Not Reported Not Detected (NotDetected); Staphepi Not Reported DETECTED (NotDetected); Stenmaltophilia Not Reported Not Detected (NotDetected); Strep agal(GrpB) Not Reported Not Detected (NotDetected); Strep pneum Not Reported Not Detected (NotDetected); Strep pyog (GrpA) Not Reported Not Detected (NotDetected); Strep spp Not Reported Not Detected (NotDetected)
[2022-10-01 06:29] LABS: Staphylococcus epidermidis DETECTED (NotDetected); Staphylococcus spp. DETECTED (NotDetected); mecAC Resistant Gene DETECTED (NotDetected)
--- NOTE | 2022-10-01 07:22 | Communication Note ---
Date of Service: October 01, 2022
[2022-10-01] MEDS ORDERED: VANCOMYCIN CONSULT ACTIVE PRN (07:23)
--- NOTE | 2022-10-01 07:36 | Pulmonary Consultation ---
Date of Consultation October 01, 2022 Assessment & Plan (1) COPD exacerbation: (2) Pneumonia: (3) Acute on chronic respiratory failure with hypoxia and hypercapnia: (4) End stage COPD: (5) Chronic dyspnea: Plan IMPRESSION: 72-year-old male with end-stage COPD and chronic hypoxia presenting with acute COPD exacerbation and possible aspiration pneumonia. Pulmonary medicine consulted for additional recommendations. RECOMMENDATIONS: 1. COPD with exacerbation - * Patient is currently on maximized therapy in the outpatient setting. On evaluation at bedside today, he is saturating well on nasal cannula. Would continue his current course of inhalers. Consideration for changing his budesonide to nebulized, however the patient appears to be moving air appropriately and in no significant distress, so I do not feel that this is necessary currently. * Agree with aspiration coverage given CT findings with RIGHT lower lobe infiltrative change. Will hopefully be able to transition to p.o. coverage in the near future. * Patient is slightly bronchospastic on exam today. Would work on tapering down his Solu-Medrol dosing though as he appears somewhat improved. Hopeful for transition to p.o. steroid taper in the near future. * Patient to continue azithromycin Saturday/Saturday/Saturday in the end-stage COPD patient. * Continue with supplemental oxygen and BiPAP at night. * Patient is with strong cough at this point. Would recommend sputum culture for completeness. * Could consider CoughAssist device, however patient appears to be doing well with his cough at this point. * Overall, patient appears to be near back to his baseline. We will continue to follow him with further recommendations as his hospital stay proceeds. 2. RIGHT lower lobe infiltrate - * Appears to be slightly worse than his baseline chest x-rays. Agree with aspiration coverage. * See above. 3. Chronic hypoxic respiratory failure - * Continue with supplemental oxygen for goal saturation of 88 to 92%. 4. Bacteremia - * Blood cultures positive for Gram positive cocci in clusters. Serology concerning for MRSA bacteremia. * Agree with MRSA coverage - Vancomycin. * BRIANA w/o findings of vegetation. * Continue workup for ?? sources. * May consider ID consult. Thank you for allowing us to participate in the care of this patient. We will continue to follow with this patient during .hospitalization Supervising Physician Co-Signing Physician Notes Patient seen and examined. EMR reviewed. Agree with assessment and plan as documented by [facility]. The patient is improved from a respiratory standpoint. Continue management for acute exacerbation of COPD. There may be some issues with medical compliance in the outpatient setting. Continue DuoNebs, Pulmicort. We will continue Solu- Medrol for now but should be able to transition fairly rapidly. The patient may not be able to care for himself adequately at home given frequent rehospitalization's in case management is recommended. Continue nocturnal noninvasive positive pressure ventilation while sleeping. We will continue to follow with you. Feel free to contact us with questions or concerns History of Present Illness Reason for Consultation: sev COPD w exacerb, +PNA, resp fail w hypercarbia Requesting Physician: Dr. Fry Attending Physician: Emeli Sandoval MD History of Present Illness Patient is a 72-year-old male with a significant past medical history of end- stage COPD, hypertension, history of tobacco abuse, oxygen dependence, and multiple frequent admissions for COPD. Patient was admitted to this institution on 09/30 with complaints of hypoxemia and COPD with exacerbation. Patient was found to be detached from his CPAP machine and saturating in the 50s. EMS was contacted and the patient is brought to the emergency department where he had been placed on CPAP. He had reportedly been experiencing ongoing cough and shortness of breath since his last discharge at the end of last month. Pulmonary medicine consulted for further recommendations. Patient follows with our clinic for his COPD. He is currently treated with maximal therapy including Incruse Ellipta, albuterol nebulizers, Perforomist, budesonide, albuterol inhalers, Mucomyst, and Daliresp. He is also on supplemental oxygen daily and utilizes BiPAP at night. During last office visit in April 2022, discussion with family regarding palliative care c onversations. Patient has previously declined lung transplant evaluation. In conversation with the patient bedside, he reports that he has had an ongoing cough and shortness of breath which has limited his activities of daily living most recently. He reports a cough productive of greenish sputum. He states that otherwise he had been doing fine and would have been okay had the BiPAP machine not become disconnected. The patient is awake, alert, and oriented and able to contribute conversation today. He feels much better than on presentation Allergies Allergy/AdvReac Type Severity Reaction Status Date / Time bee venom protein (honey bee) Allergy Severe ANAPHYLAXIS Verified 08/26/22 18:23 amoxicillin Allergy Intermediate FACIAL Verified 08/26/22 18:23 SWELLING (EYES SWELLED SHUT) clavulanic acid Allergy Intermediate FACIAL Verified 08/26/22 18:23 SWELLING (EYES SWELLED SHUT) pneumococcal vaccine Allergy Intermediate SWELLING Verified 08/26/22 18:23 Unhptvq-SZW-CgF Reductase Allergy Intermediate CPK'S GO Verified 08/26/22 18:23 Inhibitor THROUGH [Qfdqiod-Nsm-Uln Reductase ROOF Inhibitor] prednisone AdvReac Intermediate confusion Verified 08/26/22 18:23 and agitation Home Medications Medication Instructions Recorded Confirmed Type omeprazole 20 mg capsule,delayed 20 mg PO BID 04/08/18 09/30/22 History release sertraline 100 mg tablet 200 mg PO HS 04/08/18 09/30/22 History trazodone 150 mg tablet 150 mg PO HS 04/08/18 09/30/22 History albuterol sulfate 90 mcg/actuation 2 puff inhalation Q6H PRN 07/04/18 09/30/22 History aerosol inhaler Shortness Of Breath Or Wheezing epinephrine 0.3 mg/0.3 mL 0.3 mg IM DIRECTED PRN Allergic 08/22/18 09/30/22 History injection, auto-injector (EpiPen) Reaction cholecalciferol (vitamin D3) 25 2,000 unit PO QAM 08/19/19 09/30/22 History mcg (1,000 unit) capsule (Vitamin D3) cyanocobalamin (vitamin B-12) 1,000 mcg PO 2XWK 12/19/20 09/30/22 History 1,000 mcg tablet (Vitamin B-12) umeclidinium 62.5 mcg/actuation 1 inh inhalation DAILY 30 days #30 09/26/21 09/30/22 Rx blister powder for inhalation ea (Incruse Ellipta) acetylcysteine 100 mg/mL (10 %) 2 ml inhalation BID #100 mL 10/10/21 09/30/22 Rx solution formoterol fumarate 20 mcg/2 mL 20 mcg (2 mL) NEB BID 30 days #120 12/25/21 09/30/22 Rx solution for nebulization mL (Perforomist) ascorbic acid (vitamin C) 1,000 mg 1 g PO DAILY 06/11/22 09/30/22 History tablet (Vitamin C) budesonide 0.25 mg/2 mL suspension 0.5 mg inhalation BID 06/11/22 09/30/22 History for nebulization buspirone 15 mg tablet 7.5 mg PO HS 06/11/22 09/30/22 History ipratropium 0.5 mg-albuterol 3 mg 3 ml NEB QID PRN Shortness Of 06/11/22 09/30/22 History (2.5 mg base)/3 mL nebulization Breath Or Wheezing soln lactobacillus combination no.4 3 0 mmu cells PO DAILY 06/11/22 09/30/22 History billion cell capsule (Probiotic) lanolin alcohols-mineral 1 applic topical DAILY PRN Dry Skin 06/11/22 09/30/22 History oil-w.petrolatum-ceresin topical cream (Eucerin topical cream) potassium chloride 20 mEq 10 meq PO DAILY 06/11/22 09/30/22 History tablet,extended release azithromycin 250 mg tablet 250 mg PO 3XWK 06/12/22 09/30/22 History diltiazem HCl 240 mg 240 mg PO DAILY 06/12/22 09/30/22 History capsule,extended release 24 hr (Cardizem CD) roflumilast 500 mcg tablet 500 mcg PO DAILY 06/12/22 09/30/22 History (Daliresp) guaifenesin 600 mg tablet, 1,200 mg PO BID 08/26/22 09/30/22 History extended release 12 hr (Mucinex) Patient History Medical History (Updated 09/30/22 @ 13:32 by MAYUR Collins) Anemia Anxiety Chronic dyspnea Chronic respiratory failure with hypoxia Cirrhosis of liver COPD (chronic obstructive pulmonary disease) with emphysema Depression End stage COPD GERD (gastroesophageal reflux disease) Hearing deficit [place] 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 [place] exposure History of COVID-19 05/2020 - hospitalized at [facility] - sob, cough, generalized weakness --> pneumonia; still requiring more supplemental oxygen since having Covid (currently on 6 lpm cont home o2, prior to covid was only on 4 lpm) History of kidney stones History of tobacco abuse HTN (hypertension) Observed seizure-like activity On home O2 cont @ 6 lpm Osteoarthritis PTSD (post-traumatic stress disorder) Pulmonary nodules Thrombocytopenia Surgical History Dilatation of ureter H/O hernia repair History of appendectomy History of cardiac cath x 2 - most recent [place] 2010 - no stents; also cath years prior at [facility] and no stents History of colonoscopy History of extraction of renal calculus History of tonsillectomy Loss of teeth due to extraction S/P arthroscopic surgery of right knee Family History Mother Colon cancer Father FH: kidney cancer Other Cancer Social History Smoking Status: Former smoker Tobacco Type: Cigarettes Cigarettes Per Day: 40 pack year hx; Second Hand Exposure: No; Hx Alcohol Use: Yes Alcohol type: hard liquor Hx Substance Use: No Preferred Language: Georgian Communication Ability: Effective Family Development Specialist Required: No Beliefs That Will Affect Care: None marital status: Current Living Situation: Spouse and Family Current Living Situation Comment: Lives with , son, DIL, grandkids 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 All else were negative. Physical Exam Physical Exam: VITAL SIGNS - Vital signs and nursing notes were reviewed. GENERAL - 72-year-old male appearing his stated age who is in no acute distress. Communicates well with provider and answers questions appropriately. very hard of hearing. NOSE - Midline and without cyanosis. MOUTH/OROPHARYNX - Without perioral cyanosis. Buccal mucosa pink and dry. NECK - Neck with FROM. LUNGS - Auscultation reveals diffuse expiratory wheezes. CARDIAC - RRR with S1/S2. No murmur, rubs, or gallops appreciated. ABDOMEN - Abdominal inspection demonstrates flat abdomen. BS normoactive all four quadrants. No tenderness, palpable masses, or ascites noted. EXTREMITIES - No peripheral cyanosis. No pretibial edema present. +3/5 radial palpated throughout. PSYCH - A&Ox3 and cooperates fully with examiner. Pt is very pleasant and interacts well with examiner. Results & Data Results & Data Vital Signs (Past 12 Hours) Vital Signs Temp Pulse Pulse Resp BP Pulse Ox O2 Del Method 10/01/22 05:23 84 20 95 BiPAP 10/01/22 05:21 84 20 95 10/01/22 04:17 36.4 C L 73 14 99/62 L 95 BiPAP 09/30/22 22:30 104 H 10/01/22 02:09 90 26 H 95 09/30/22 22:37 98 H 15 96 09/30/22 22:18 36.8 C 100 H 22 110/68 93 CPAP 09/30/22 21:54 High Flow Nasal Cannula O2 Flow Rate FiO2 10/01/22 05:23 8 10/01/22 05:21 8 10/01/22 04:17 6 09/30/22 22:30 10/01/22 02:09 7 09/30/22 22:37 6 09/30/22 22:18 11 09/30/22 21:54 10 PG Care Time/CCT Total # of Minutes Spent Total Time Spent with Patient: Total time spent is greater than 50% in coordination of care (as documented) at patient's floor/unit and/or counseling patient: Coding Level of Care Code 90526 INT INP/OBS CARE 375MIN Diagnoses COPD exacerbation J44.1 Pneumonia J18.9 Acute on chronic respiratory failure with hypoxia and hypercapnia J96.21; J96.22 End stage COPD J44.9 Chronic dyspnea R06.09
[2022-10-01] MEDS ORDERED: VANCOMYCIN HCL 2,000 MG in SODIUM CHLORIDE 0.9% 500 ML IV ONE (07:45)
[2022-10-01] MEDS: PANTOprazole 40 MG TAB PO SCH ×2 (08:43→21:36)
[2022-10-01] MEDS: methylPREDNISolone 40 MG in SYRINGE 0 ML IV SCH ×3 (08:43→21:37)
[2022-10-01] MEDS: UMECLIDINIUM BROMIDE 62.5MCG/BLISTER 7 PUFFS/INHALER INH SCH (08:43)
[2022-10-01] MEDS: guaiFENesin 600 MG TABCR PO SCH ×2 (08:44→21:36)
[2022-10-01] MEDS: LACTOBACILLUS ACIDOPHILUS 1 GM PACK PO SCH (08:55)
[2022-10-01] MEDS: POTASSIUM CHLORIDE 10 MEQ TABCR PO SCH (08:55)
[2022-10-01] MEDS: CEFEPIME 2,000 MG in SYRINGE 0 ML IV SCH ×2 (08:56→15:21)
[2022-10-01] MEDS: ROFLUMILAST 500 MCG TAB PO SCH (08:57)
[2022-10-01 08:58] LABS: Hematocrit (blood only) 33.5 % (42.0-52.0); Hemoglobin 10.4 g/dl (14.0-18.0); Mean Corpuscular Hemoglobin 28.7 pg (25.0-34.0); Mean Corpuscular Volume 92.5 fL (80.0-100.0); Mean Platelet Volume 10.9 fL (9.4-12.4); Platelet Count 127 K/uL (130-400); RDW Coefficient of Variation 13.7 % (11.5-14.5); RDW Standard Deviation 46.5 fL (36.4-46.3); Red Blood Count 3.62 M/uL (4.70-6.10); White Blood Count 4.72 K/ul (4.8-10.8)
[2022-10-01] MEDS: dilTIAZem HCL 240 MG CAPCR PO SCH (08:58)
[2022-10-01 09:06] LABS: BUN Creatinine Ratio 15.2 (10-20); Calcium 9.1 mg/dl (8.6-10.3); Creatinine Clr Calc Pharmacy 74.9 ml/min; Est GFR (Non-African American) 82.8 ml/min; Magnesium 1.9 mg/dl (1.7-2.4); Potassium 4.4 mmol/L (3.5-5.1)
[2022-10-01] MEDS: traMADol HCL 50 MG TABLET PO PRN ×3 (09:17→21:38)
[2022-10-01] MEDS: ACETAMINOPHEN 325 MG TAB PO PRN (12:21)
--- NOTE | 2022-10-01 12:42 | Pharmacy Report ---
Pharmacy PK ABX Note - Date of Service October 01, 2022 - Assessment and Plan Assessment 72 year old M receiving vancomycin for treatment of bacteremia. Pertinent microbiologic data includes: blood culture from 09/30/22 growing Staph epi R to oxacillin (per BCID2). Day # 1 of antimicrobial therapy. Plan Vancomycin * Loading dose: 2000 mg IV x 1 * Maintenance dose: 1000 mg IV every 12 hours * Regimen is predicted to achieve target AUC/DANII of 400-600 mg/L.hr * Trough level ordered for if vancomycin continued > 48 hours Pharmacy will continue to follow and will adjust dose/frequency as necessary. Thank you. Pharmacy has transitioned to AUC monitoring for vancomycin. AUC/DANII is the preferred PK/PD target and is associated with decreased risk of nephrotoxicity compared to traditional trough targets.
--- NOTE | 2022-10-01 13:07 | Electrocardiogram Report ---
Test Reason : Blood Pressure : / mmHG Vent. Rate : 083 BPM Atrial Rate : 083 BPM P-R Int : 156 ms QRS Dur : 074 ms QT Int : 380 ms P-R-T Axes : 050 -32 030 degrees QTc Int : 446 ms Normal sinus rhythm Left axis deviation Abnormal ECG When compared with ECG of 30-SEP-2022 06:28, No significant change was found Confirmed by Reinaldo Wan ([id number]) on 10/01/2022 1:06:35 PM Referred By: REFERRED SELF Confirmed By:Reinaldo Wan
--- NOTE | 2022-10-01 16:27 | Hospitalist Progress Note ---
Date of Service October 01, 2022 Assessment & Plan (1) Acute on chronic respiratory failure with hypoxia and hypercapnia: Plan: Secondary to COPD exacerbation with pneumonia (2) Pneumonia: (3) COPD exacerbation: Plan: Patient presenting from home with reports of acute onset shortness of breath after his oxygen became disconnected from his CPAP overnight. Patient reports he was saturating in the 50s at home. In the ED, initially placed on BiPAP, now transitioned to 10 L of high flow nasal cannula Initial ABG-pH 7.28, PCO2 70, PO2 196, HCO3 33. Repeat-not any worse CXR shows bibasilar and right midlung consolidation consistent with multifocal pneumonia. Does not appear septic --afebrile, no leukocytosis, procalcitonin negative. Concern for possible aspiration. Received IV cefepime in the ED, will continue with and add Flagyl for aspiration coverage. Check MRSA nasal swab -negative for any MRSA IV Solu-Medrol Blood culture is growing gram-positive cocci in clusters 1 out of 2 bottles Repeat blood culture is pending Speech eval-recommended single bites small sips and slow rate Aggressive pulmonary toilet with nebs, Mucinex, flutter valve. Continue other routine home inhalers and nebs. Clinically little better we will continue current management (4) Elevated troponin: Plan: HS trop 74.2 --> 75.3 No reports of chest pain, EKG without acute ST changes Likely demand ischemia in the setting of profound hypoxia. Serial troponins are unremarkable for any ACS Patient remained asymptomatic (5) PTSD (post-traumatic stress disorder): Plan: No acute confusion (6) Anxiety: (7) Depression: Plan: Continue home meds DVT PROPHYLAXIS SQ Lovenox Dispo- Patient found to be covered in bugs and bug bites. Will need home health at a minimum at discharge. PT/OT hugo, case management to follow. s. Admission and Anticipated Discharge Date Admission Date: September 30, 2022 Subjective 10/01/2022 The patient was seen and examined in telemetry unit He has been feeling a little better since admission His wheezing and shortness of breath are improved and is still requiring 8 L to maintain saturation Denies any chest pain and/or palpitation Review of Systems Review of Systems: All systems reviewed and are unremarkable except as noted below Physical Exam Physical Exam: Lying in bed with minimal respiratory distress and wheezing Constitutional: + ill appearing and average body habitus Eyes: PERRL, conjunctivae normal, anicteric sclerae ENMT: external ear and nose normal, oropharynx normal Neck: trachea midline, no thyromegaly Respiratory: + respiratory distress (Mild to moderate) Auscultation: + diminished lung sounds, + crackles and + wheezes Cardiovascular: Rate/Rhythm: regular rate, regular rhythm and + tachycardic Heart Sounds: normal S1, normal S2 and + murmur Extremities: no edema Gastrointestinal (Abdomen): Inspection/Auscultation: normal bowel sounds; abdomen not distended Percussion/Palpation: abdomen soft; abdomen nontender Musculoskeletal: No acute arthritis involving any joint Neurologic: Alert, awake and oriented times. No focal sensory or no motor deficit appreciated Psychiatric: A+Ox3, euthymic affect Lymphatic: no cervical or axillary lymphadenopathy Results & Data Results & Data Vital Signs (Past 12 Hours) Vital Signs Temp Pulse Pulse Resp BP Pulse Ox Pulse Ox 10/01/22 16:11 113 H 10/01/22 12:30 81 10/01/22 12:20 89 L 10/01/22 12:22 36.6 C 89 20 118/74 95 10/01/22 10:17 10/01/22 10:17 89 L 10/01/22 08:59 89 18 109/67 88 L 10/01/22 05:23 84 20 95 10/01/22 05:21 84 20 95 O2 Del Method O2 Del Method O2 Flow Rate FiO2 10/01/22 16:11 10/01/22 12:30 10/01/22 12:20 10/01/22 12:22 High Flow Nasal Cannula 8 10/01/22 10:17 Nasal Cannula 7 10/01/22 10:17 High Flow Nasal Cannula 10/01/22 08:59 Nasal Cannula 6 10/01/22 05:23 BiPAP 8 10/01/22 05:21 8 Laboratory Results Short CBC 10/01/22 Range/Units 08:18 WBC 4.72 L (4.8-10.8) K/ul Hgb 10.4 L (14.0-18.0) g/dl Hct 33.5 L (42.0-52.0) % Plt Count 127 L (130-400) K/uL BMP 10/01/22 08:18 Sodium 139 Potassium 4.4 Chloride 98 Carbon Dioxide 38 H BUN 14 Creatinine 0.92 Glucose 121 H Calcium 9.1 Medications Administered Current Inpatient Medications Acetaminophen (Acetaminophen 325 Mg Tab) 650 mg PO Q4H PRN PRN Reason: Pain or Fever Stop: 10/30/22 13:07 Last Admin: 10/01/22 12:21 Dose: 650 mg Acetylcysteine (Acetylcysteine 10% Inhal Soln 4 Ml Dispensed By Resp.) 2 ml INH BID [facility] Stop: 10/30/22 20:59 Last Admin: 10/01/22 05:20 Dose: 2 ml Albuterol (Albut/Ipratrop 3mg/0.5mg Neb 3 Ml Vial) 3 ml NEB QIDR PRN; Protocol PRN Reason: Shortness Of Breath Or Wheezing Stop: 10/30/22 13:07 Budesonide (Budesonide 0.25 Mg/2 Ml Vial (Pulmicort)) 0.5 mg INH BIDR PEAR[facility] Stop: 10/30/22 18:59 Last Admin: 10/01/22 05:20 Dose: 0.5 mg Buspirone HCl (Buspirone 7.5 Mg Tab) 7.5 mg PO HS [facility] Stop: 10/30/22 20:59 Last Admin: 09/30/22 21:11 Dose: 7.5 mg Diltiazem HCl (Diltiazem Hcl 240 Mg Capcr) 240 mg PO DAILY [facility] Stop: 10/31/22 08:59 Last Admin: 10/01/22 08:58 Dose: 240 mg Formoterol Fumarate (Formoterol 20 Mcg/2 Ml Vial) 20 mcg NEB BIDR [facility] Stop: 10/30/22 18:59 Last Admin: 10/01/22 05:19 Dose: 20 mcg Guaifenesin (Guaifenesin 600 Mg Tabcr) 1,200 mg PO BID [facility] Stop: 10/30/22 20:59 Last Admin: 10/01/22 08:44 Dose: 1,200 mg Cefepime HCl 2,000 mg/ Syringe 20 mls @ 5 mls/min IV Q8H [facility]; Protocol Stop: 10/07/22 15:59 Last Admin: 10/01/22 15:21 Dose: 5 mls/min Metronidazole (Flagyl) 500 mg in 100 mls @ 100 mls/hr IV Q8H [facility] Stop: 10/07/22 13:59 Last Infusion: 10/01/22 15:20 Dose: Infused Methylprednisolone 40 mg/ (Syringe) 0.64 mls @ 1.5 mls/min IV Q12H [facility] Stop: 10/31/22 09:59 Last Admin: 10/01/22 12:21 Dose: 1.5 mls/min Vancomycin HCl 1,000 mg/ (Sodium Chloride) 270 mls @ 200 mls/hr IV Q12H [facility]; Protocol Stop: 10/15/22 19:59 Lactobacillus Acidophilus (Lactobacillus Acidophilus 1 Gm Pack) 2 gm PO DAILY [facility] Stop: 10/31/22 08:59 Last Admin: 10/01/22 08:55 Dose: 2 gm Miscellaneous Information (Vancomycin Consult Active) 1 each N/A UD PRN PRN Reason: Consult Stop: 10/31/22 07:22 Pantoprazole Sodium (Pantoprazole 40 Mg Tab) 40 mg PO BID [facility] Stop: 10/30/22 20:59 Last Admin: 10/01/22 08:43 Dose: 40 mg Polyethylene Glycol (Polyethylene (Miralax) 17 Gm Pack) 17 gm PO DAILY PRN PRN Reason: Constipation Stop: 10/30/22 13:07 Potassium Chloride (Potassium Chloride 10 Meq Tabcr) 10 meq PO DAILY [facility] Stop: 10/31/22 08:59 Last Admin: 10/01/22 08:55 Dose: 10 meq Roflumilast (Roflumilast 500 Mcg Tab) 500 mcg PO DAILY [facility] Stop: 10/31/22 08:59 Last Admin: 10/01/22 08:57 Dose: 500 mcg Sertraline HCl (Sertraline Hcl 100 Mg Tablet) 200 mg PO HS [facility] Stop: 10/30/22 20:59 Last Admin: 09/30/22 21:10 Dose: 200 mg Tramadol HCl (Tramadol Hcl 50 Mg Tablet) 50 mg PO Q6H PRN PRN Reason: Moderate-Severe Pain Stop: 10/30/22 15:36 Last Admin: 10/01/22 15:21 Dose: 50 mg Trazodone HCl (Trazodone Hcl 50 Mg Tab) 150 mg PO HS [facility] Stop: 10/30/22 20:59 Last Admin: 09/30/22 21:12 Dose: 150 mg Umeclidinium [place] (Umeclidinium [place] 62.5mcg/Blister 7 Puffs/Inhaler) 1 puffs INH DAILY [facility] Stop: 10/31/22 08:59 Last Admin: 10/01/22 08:43 Dose: 1 puffs
[2022-10-01] MEDS: VANCOMYCIN HCL 1,000 MG in SODIUM CHLORIDE 0.9% 250 ML IV SCH (21:05)
[2022-10-01] MEDS: busPIRone 7.5 MG TAB PO SCH (21:36)
[2022-10-01] MEDS: SERTRALINE HCL 100 MG TABLET PO SCH (21:37)
[2022-10-01] MEDS: traZODone HCL 50 MG TAB PO SCH (21:37)
[2022-10-02] MEDS: CEFEPIME 2,000 MG in SYRINGE 0 ML IV SCH ×3 (00:13→15:11)
[2022-10-02] MEDS: metroNIDAZOLE 500 MG/100 ML BAG IV SCH ×2 (06:09→13:24)
[2022-10-02] MEDS: ACETYLCYSTEINE 10% INHAL SOLN 4 ML **DISPENSED BY RESP. INH SCH ×2 (07:00→18:57)
[2022-10-02] MEDS: FORMOTEROL 20 MCG/2 ML VIAL NEB SCH ×2 (07:00→18:58)
[2022-10-02] MEDS: BUDESONIDE 0.25 MG/2 ML VIAL (PULMICORT) INH SCH ×2 (07:00→18:58)
[2022-10-02 07:43] LABS: Hematocrit (blood only) 34.4 % (42.0-52.0); Hemoglobin 11.1 g/dl (14.0-18.0); Mean Corpuscular Hemoglobin 29.4 pg (25.0-34.0); Mean Corpuscular Hgb Conc 32.3 g/dL (32.0-36.0); Mean Platelet Volume 10.7 fL (9.4-12.4); Platelet Count 130 K/uL (130-400); RDW Coefficient of Variation 13.5 % (11.5-14.5); RDW Standard Deviation 44.8 fL (36.4-46.3); Red Blood Count 3.78 M/uL (4.70-6.10); White Blood Count 7.23 K/ul (4.8-10.8)
[2022-10-02 08:03] LABS: Calcium 9.2 mg/dl (8.6-10.3); Creatinine Clr Calc Pharmacy 75.8 ml/min; Est GFR (African American) 97.2 ml/min; Est GFR (Non-African American) 83.9 ml/min; Potassium 4.4 mmol/L (3.5-5.1)
[2022-10-02] MEDS: UMECLIDINIUM BROMIDE 62.5MCG/BLISTER 7 PUFFS/INHALER INH SCH (08:05)
[2022-10-02] MEDS: VANCOMYCIN HCL 1,000 MG in SODIUM CHLORIDE 0.9% 250 ML IV SCH ×2 (08:05→21:14)
[2022-10-02] MEDS: POTASSIUM CHLORIDE 10 MEQ TABCR PO SCH (08:06)
[2022-10-02] MEDS: LACTOBACILLUS ACIDOPHILUS 1 GM PACK PO SCH (08:06)
[2022-10-02] MEDS: PANTOprazole 40 MG TAB PO SCH ×2 (08:07→20:47)
[2022-10-02] MEDS: guaiFENesin 600 MG TABCR PO SCH ×2 (08:07→20:46)
[2022-10-02] MEDS: dilTIAZem HCL 240 MG CAPCR PO SCH (08:07)
[2022-10-02] MEDS: ROFLUMILAST 500 MCG TAB PO SCH (08:08)
[2022-10-02 08:13] LABS: Basophils # (auto) 0.01 K/uL (0-0.2); Basophils % (auto) 0.1 %; Immature Granulocytes # (auto) 0.07 K/uL (0.01-0.20); Lymphocytes # (auto) 0.88 K/uL (1.2-3.4); Lymphocytes % (auto) 12.2 %; Monocytes # (auto) 0.63 K/uL (0.11-0.59); Monocytes % (auto) 8.7 %; Neutrophils # (auto) 5.64 K/uL (1.40-6.50)
[2022-10-02] MEDS: methylPREDNISolone 40 MG in SYRINGE 0 ML IV SCH (11:55)
--- NOTE | 2022-10-02 12:19 | Pulmonology Progress Note ---
Date of Service October 02, 2022 Assessment & Plan (1) COPD exacerbation: (2) Pneumonia: (3) Acute on chronic respiratory failure with hypoxia and hypercapnia: (4) End stage COPD: (5) Chronic dyspnea: Plan IMPRESSION: 72-year-old male with end-stage COPD and chronic hypoxia/hypercarbia presenting with acute COPD exacerbation and possible aspiration pneumonia. He is improved clinically RECOMMENDATIONS: 1. COPD with exacerbation -appears improved today. Can transition methy lprednisolone to prednisone with plans to complete 40 mg a day for 5 days. Continue Daliresp, Incruse, Perforomist, and budesonide with as needed DuoNebs. 2. Right lower lobe pneumonia: Blood cultures were likely contaminant (coag negative staph: Sputum cultures pending and repeat blood cultures no growth to date. Currently on vancomycin and cefepime. Can reduce to cefuroxime and azithromycin. Follow-up chest x-ray in 2 to 4 weeks in the outpatient setting recommended 3. Chronic hypoxic respiratory failure -maintain oxygen saturation at 88 to 90%. Avoid hyperoxygenation given concomitant CO2 retention. He should continue to use nocturnal noninvasive positive pressure ventilation. Advised him that we do not have access to Oxymizer sooner in the hospital and he will have to follow-up with his DME company. Case management can potentially assist in contacting his DME company to get him an updated Oxymizer 4. Patient was advised that he needs to increase activity. Out of bed to chair and ambulate as tolerated. Patient appears to be approaching his baseline chronically debilitated state. He appears to have declined rehab placement or home health and wants to go back home. Disposition per primary service. Admission and Anticipated Discharge Date Admission Date: September 30, 2022 Subjective Patient seen and examined. EMR reviewed. The patient states that his breathing is better. He would like to get another Oxymizer. He states that apparently his [facility] was taken from him when he got admitted to the hospital. He did cough up a little bit of phlegm. He has not had any hemoptysis. He remains in bed. His baseline oxygen requirement is about 6 L at home. He denies any chest pain or palpitations. No significant lower extremity edema. He is tolerating diet. Review of Systems Review of Systems: All systems reviewed & are unremarkable except as noted in Subjective Physical Exam Physical Exam: Constitutional: No acute distress HEENT: EOMI, PERRLA Respiratory system: Decreased air entry bilaterally, no rhonchi, positive crackles bilateral lower lobes, no wheezing CVS: S1-S2 positive, no murmurs or gallops Abdomen: Soft, nontender, nondistended, positive bowel sounds x4 Extremities: +2 pulses bilaterally radialis/ dorsalis pedis, no cyanosis, no edema Neuro: Awake alert oriented x3 Psych: Normal mood and affect G/U: No [place] Skin: no rashes, warm and dry Lymphatic: no cervical or axillary lymphadenopathy Results & Data Results & Data Vital Signs (Past 12 Hours) Vital Signs Temp Pulse Pulse Resp BP Pulse Ox O2 Del Method 10/02/22 09:58 79 10/02/22 07:38 Nasal Cannula 10/02/22 07:27 36.6 C 76 16 143/83 H 94 Nasal Cannula 10/02/22 02:38 36.7 C 73 20 107/69 92 Nasal Cannula 10/02/22 01:15 Nasal Cannula 10/02/22 00:31 36.8 C 82 18 115/69 94 Nasal Cannula O2 Flow Rate 10/02/22 09:58 10/02/22 07:38 10/02/22 07:27 7 10/02/22 02:38 7 10/02/22 01:15 7 10/02/22 00:31 7 Laboratory Results 10/02/22 07:25 10/02/22 07:25 Diagnostic Findings No new imaging PG Care Time/CCT Total # of Minutes Spent Total Time Spent with Patient: Total time spent is greater than 50% in coordination of care (as documented) at patient's floor/unit and/or counseling patient: Coding Level of Care Code 00867 SUB INP/OBS CARE 2/35MIN Diagnoses COPD exacerbation J44.1 Pneumonia J18.9 Acute on chronic respiratory failure with hypoxia and hypercapnia J96.21; J96. 22 End stage COPD J44.9 Chronic dyspnea R06.09
--- NOTE | 2022-10-02 13:00 | Electrocardiogram Report ---
Test Reason : Blood Pressure : / mmHG Vent. Rate : 073 BPM Atrial Rate : 073 BPM P-R Int : 154 ms QRS Dur : 072 ms QT Int : 380 ms P-R-T Axes : 034 -14 038 degrees QTc Int : 418 ms Poor data quality, interpretation may be adversely affected Normal sinus rhythm Normal ECG When compared with ECG of 01-OCT-2022 05:40, No significant change was found Confirmed by Reinaldo Wan ([id number]) on 10/02/2022 1:00:39 PM Referred By: REFERRED SELF Confirmed By:Reinaldo Wan
--- NOTE | 2022-10-02 16:57 | Hospitalist Progress Note ---
Date of Service October 02, 2022 Assessment & Plan (1) Acute on chronic respiratory failure with hypoxia and hypercapnia: Plan: Secondary to COPD exacerbation with pneumonia (2) Pneumonia: Plan: CXR shows bibasilar and right midlung consolidation consistent with multifocal pneumonia. Does not appear septic --afebrile, no leukocytosis, procalcitonin negative. Concern for possible aspiration-appreciate speech therapy input and recommendation. No significant swallowing problem reported Received IV cefepime in the ED, will continue with and add Flagyl for aspiration coverage. Check MRSA nasal swab -negative for any MRSA Blood culture is growing gram-positive cocci in clusters 1 out of 2 bottles- likely contaminant Repeat blood culture -negative Antibiotic will be changed to cefuroxime and azithromycin Continue Daliresp, Incruse, Perforomist, and budesonide with as needed DuoNebs. Remains afebrile and white count is normal We will get PT and OT evaluation (3) COPD exacerbation: Plan: Has end-stage COPD Patient presenting from home with reports of acute onset shortness of breath after his oxygen became disconnected from his CPAP overnight. Patient reports he was saturating in the 50s at home. In the ED, initially placed on BiPAP, now transitioned to 10 L of high flow nasal cannula Initial ABG-pH 7.28, PCO2 70, PO2 196, HCO3 33. Repeat-not any worse Appreciate pulmonary input and recommendation IV [id number] to oral prednisone and will have a total of 5 days course Has been getting nebulized bronchodilator But his symptoms are better today (4) Elevated troponin: Plan: HS trop 74.2 --> 75.3 No reports of chest pain, EKG without acute ST changes Likely demand ischemia in the setting of profound hypoxia. Serial troponins are unremarkable for any ACS Patient remained asymptomatic (5) PTSD (post-traumatic stress disorder): Plan: No acute confusion (6) Anxiety: (7) Depression: Plan: Continue home meds DVT PROPHYLAXIS SQ Lovenox Dispo- Patient found to be covered in bugs and bug bites. Will need home health at a minimum at discharge. PT/OT evals, case management to follow. s. Admission and Anticipated Discharge Date Admission Date: September 30, 2022 Subjective 10/01/2022 The patient was seen and examined in telemetry unit He has been feeling a little better since admission His wheezing and shortness of breath are improved and is still requiring 8 L to maintain saturation Denies any chest pain and/or palpitation 10/02/2022 The patient was seen and examined in telemetry unit He has been feeling much better today Cough and shortness of breath are improved Oxygen requirement has gone down Review of Systems Review of Systems: All systems reviewed and are unremarkable except as noted below Physical Exam Physical Exam: Lying in bed with minimal respiratory distress and wheezing Constitutional: + ill appearing and average body habitus Eyes: PERRL, conjunctivae normal, anicteric sclerae ENMT: external ear and nose normal, oropharynx normal Neck: trachea midline, no thyromegaly Respiratory: + respiratory distress (Mild to moderate) Auscultation: + diminished lung sounds, + crackles and + wheezes Cardiovascular: Rate/Rhythm: regular rate, regular rhythm and + tachycardic Heart Sounds: normal S1, normal S2 and + murmur Extremities: no edema Gastrointestinal (Abdomen): Inspection/Auscultation: normal bowel sounds; abdomen not distended Percussion/Palpation: abdomen soft; abdomen nontender Musculoskeletal: No acute arthritis involving any joint Neurologic: Alert, awake and oriented x3. Generally weak but no focal neurodeficit Psychiatric: A+Ox3, euthymic affect Lymphatic: no cervical or axillary lymphadenopathy Results & Data Results & Data Vital Signs (Past 12 Hours) Vital Signs Temp Pulse Pulse Resp BP Pulse Ox O2 Del Method 10/02/22 16:23 76 10/02/22 09:58 79 10/02/22 07:38 Nasal Cannula 10/02/22 07:27 36.6 C 76 16 143/83 H 94 Nasal Cannula O2 Flow Rate 10/02/22 16:23 10/02/22 09:58 10/02/22 07:38 10/02/22 07:27 7 Laboratory Results Short CBC 10/02/22 Range/Units 07:25 WBC 7.23 (4.8-10.8) K/ul Hgb 11.1 L (14.0-18.0) g/dl Hct 34.4 L (42.0-52.0) % Plt Count 130 (130-400) K/uL BMP 10/02/22 07:25 Sodium 137 Potassium 4.4 Chloride 96 L Carbon Dioxide 38 H BUN 20 Creatinine 0.91 Glucose 142 H Calcium 9.2 Medications Administered Current Inpatient Medications Acetaminophen (Acetaminophen 325 Mg Tab) 650 mg PO Q4H PRN PRN Reason: Pain or Fever Stop: 10/30/22 13:07 Last Admin: 10/01/22 12:21 Dose: 650 mg Acetylcysteine (Acetylcysteine 10% Inhal Soln 4 Ml Dispensed By Resp.) 2 ml INH BID [facility] Stop: 10/30/22 20:59 Last Admin: 10/02/22 07:00 Dose: 2 ml Albuterol (Albut/Ipratrop 3mg/0.5mg Neb 3 Ml Vial) 3 ml NEB QIDR PRN; Protocol PRN Reason: Shortness Of Breath Or Wheezing Stop: 10/30/22 13:07 Budesonide (Budesonide 0.25 Mg/2 Ml Vial (Pulmicort)) 0.5 mg INH BIDR [facility] Stop: 10/30/22 18:59 Last Admin: 10/02/22 07:00 Dose: 0.5 mg Buspirone HCl (Buspirone 7.5 Mg Tab) 7.5 mg PO HS [facility] Stop: 10/30/22 20:59 Last Admin: 10/01/22 21:36 Dose: 7.5 mg Diltiazem HCl (Diltiazem Hcl 240 Mg Capcr) 240 mg PO DAILY [facility] Stop: 10/31/22 08:59 Last Admin: 10/02/22 08:07 Dose: 240 mg Formoterol Fumarate (Formoterol 20 Mcg/2 Ml Vial) 20 mcg NEB BIDR [facility] Stop: 10/30/22 18:59 Last Admin: 10/02/22 07:00 Dose: 20 mcg Guaifenesin (Guaifenesin 600 Mg Tabcr) 1,200 mg PO BID [facility] Stop: 10/30/22 20:59 Last Admin: 10/02/22 08:07 Dose: 1,200 mg Cefepime HCl 2,000 mg/ Syringe 20 mls @ 5 mls/min IV Q8H [facility]; Protocol Stop: 10/07/22 15:59 Last Admin: 10/02/22 15:11 Dose: 5 mls/min Metronidazole (Flagyl) 500 mg in 100 mls @ 100 mls/hr IV Q8H [facility] Stop: 10/07/22 13:59 Last Infusion: 10/02/22 16:18 Dose: Infused Methylprednisolone 40 mg/ (Syringe) 0.64 mls @ 1.5 mls/min IV Q12H [facility] Stop: 10/31/22 09:59 Last Admin: 10/02/22 11:55 Dose: 1.5 mls/min Vancomycin HCl 1,000 mg/ (Sodium Chloride) 270 mls @ 200 mls/hr IV Q12H [facility]; Protocol Stop: 10/15/22 19:59 Last Infusion: 10/02/22 09:33 Dose: Infused Lactobacillus Acidophilus (Lactobacillus Acidophilus 1 Gm Pack) 2 gm PO DAILY [facility] Stop: 10/31/22 08:59 Last Admin: 10/02/22 08:06 Dose: 2 gm Miscellaneous Information (Vancomycin Consult Active) 1 each N/A UD PRN PRN Reason: Consult Stop: 10/31/22 07:22 Pantoprazole Sodium (Pantoprazole 40 Mg Tab) 40 mg PO BID [facility] Stop: 10/30/22 20:59 Last Admin: 10/02/22 08:07 Dose: 40 mg Polyethylene Glycol (Polyethylene (Miralax) 17 Gm Pack) 17 gm PO DAILY PRN PRN Reason: Constipation Stop: 10/30/22 13:07 Potassium Chloride (Potassium Chloride 10 Meq Tabcr) 10 meq PO DAILY [facility] Stop: 10/31/22 08:59 Last Admin: 10/02/22 08:06 Dose: 10 meq Roflumilast (Roflumilast 500 Mcg Tab) 500 mcg PO DAILY [facility] Stop: 10/31/22 08:59 Last Admin: 10/02/22 08:08 Dose: 500 mcg Sertraline HCl (Sertraline Hcl 100 Mg Tablet) 200 mg PO HS [facility] Stop: 10/30/22 20:59 Last Admin: 10/01/22 21:37 Dose: 200 mg Tramadol HCl (Tramadol Hcl 50 Mg Tablet) 50 mg PO Q6H PRN PRN Reason: Moderate-Severe Pain Stop: 10/30/22 15:36 Last Admin: 10/01/22 21:38 Dose: 50 mg Trazodone HCl (Trazodone Hcl 50 Mg Tab) 150 mg PO HS [facility] Stop: 10/30/22 20:59 Last Admin: 10/01/22 21:37 Dose: 150 mg Umeclidinium [place] (Umeclidinium [place] 62.5mcg/Blister 7 Puffs/Inhaler) 1 puffs INH DAILY [facility] Stop: 10/31/22 08:59 Last Admin: 10/02/22 08:05 Dose: 1 puffs
[2022-10-02] MEDS ORDERED: methylPREDNISolone 4 MG TAB, 6 DAY TAPER PO SCH (17:15)
[2022-10-02] MEDS: AZITHROMYCIN 500 MG in DEXTROSE 5% 250 ML IV SCH (18:12)
[2022-10-02] MEDS: methylPREDNISolone 4 MG TAB PO SCH ×2 (18:28→20:48)
[2022-10-02] MEDS: traMADol HCL 50 MG TABLET PO PRN (19:38)
[2022-10-02] MEDS: traZODone HCL 50 MG TAB PO SCH (20:46)
[2022-10-02] MEDS: SERTRALINE HCL 100 MG TABLET PO SCH (20:47)
[2022-10-02] MEDS: busPIRone 7.5 MG TAB PO SCH (20:48)
[2022-10-02] MEDS: cefUROXime 1,000 MG in DEXTROSE 5% 50 ML IV SCH (22:46)
[2022-10-03] MEDS: cefUROXime 1,000 MG in DEXTROSE 5% 50 ML IV SCH ×3 (05:32→21:08)
[2022-10-03] MEDS: FORMOTEROL 20 MCG/2 ML VIAL NEB SCH ×2 (07:04→19:15)
[2022-10-03] MEDS: ACETYLCYSTEINE 10% INHAL SOLN 4 ML **DISPENSED BY RESP. INH SCH ×2 (07:06→19:16)
[2022-10-03] MEDS: BUDESONIDE 0.25 MG/2 ML VIAL (PULMICORT) INH SCH ×2 (07:07→19:14)
[2022-10-03 08:27] LABS: Hematocrit (blood only) 35.3 % (42.0-52.0); Hemoglobin 11.4 g/dl (14.0-18.0); Mean Corpuscular Hemoglobin 29.4 pg (25.0-34.0); Mean Corpuscular Hgb Conc 32.3 g/dL (32.0-36.0); Mean Platelet Volume 11.1 fL (9.4-12.4); Platelet Count 148 K/uL (130-400); RDW Standard Deviation 46.3 fL (36.4-46.3); Red Blood Count 3.88 M/uL (4.70-6.10); White Blood Count 9.32 K/ul (4.8-10.8)
[2022-10-03 08:29] LABS: BUN Creatinine Ratio 20.4 (10-20); Calcium 9.2 mg/dl (8.6-10.3); Creatinine Clr Calc Pharmacy 70.4 ml/min; Est GFR (African American) 88.9 ml/min; Est GFR (Non-African American) 76.7 ml/min; Magnesium 2.1 mg/dl (1.7-2.4); Potassium 4.3 mmol/L (3.5-5.1)
[2022-10-03 08:48] LABS: Basophils # (auto) 0.02 K/uL (0-0.2); Basophils % (auto) 0.2 %; Immature Granulocytes # (auto) 0.14 K/uL (0.01-0.20); Immature Granulocytes % (auto) 1.5 %; Lymphocytes # (auto) 0.91 K/uL (1.2-3.4); Lymphocytes % (auto) 9.8 %; Monocytes # (auto) 0.63 K/uL (0.11-0.59); Monocytes % (auto) 6.8 %; Neutrophils # (auto) 7.62 K/uL (1.40-6.50); Neutrophils % (auto) 81.7 %
[2022-10-03] MEDS ORDERED: predniSONE 20 MG TAB PO SCH (09:00)
[2022-10-03] MEDS: methylPREDNISolone 4 MG TAB PO SCH ×3 (09:08→18:41)
[2022-10-03] MEDS: ROFLUMILAST 500 MCG TAB PO SCH (09:08)
[2022-10-03] MEDS: POTASSIUM CHLORIDE 10 MEQ TABCR PO SCH (09:09)
[2022-10-03] MEDS: guaiFENesin 600 MG TABCR PO SCH ×2 (09:09→21:11)
[2022-10-03] MEDS: LACTOBACILLUS ACIDOPHILUS 1 GM PACK PO SCH (09:09)
[2022-10-03] MEDS: PANTOprazole 40 MG TAB PO SCH ×2 (09:09→21:10)
[2022-10-03] MEDS: UMECLIDINIUM BROMIDE 62.5MCG/BLISTER 7 PUFFS/INHALER INH SCH (09:09)
[2022-10-03] MEDS: dilTIAZem HCL 240 MG CAPCR PO SCH (09:09)
--- NOTE | 2022-10-03 09:25 | Pulmonology Progress Note ---
Date of Service October 03, 2022 Assessment & Plan (1) COPD exacerbation: (2) Pneumonia: (3) Acute on chronic respiratory failure with hypoxia and hypercapnia: (4) End stage COPD: (5) Chronic dyspnea: Plan IMPRESSION: 72-year-old male with end-stage COPD and chronic hypoxia/hypercarbia presenting with acute COPD exacerbation and possible aspiration pneumonia. He is improved clinically RECOMMENDATIONS: 1. COPD with Exacerbation - * Continues to improve today. Is on steroid taper which he should complete in the outpatient setting. * Continue with home medications including Daliresp, Incruse, Perforomist, and budesonide. * Continue to de-escalate antibiotic therapy. * Can remain on his Azithromycin M/W/F at discharge. * Continue w/ Oxygen and BiPAP at night. * Otherwise, patient appears back to his baseline from a pulmonary perspective. 2. RIGHT Lower Lobe Infiltrate - * Finish antibiotics as above. 3. Chronic Hypoxic Respiratory Failure - * Continue w/ supplemental oxygen for goal saturations of 88-90% Patient appears back at his baseline at this point. Pulmonary medicine will sign off at this time. Admission and Anticipated Discharge Date Admission Date: September 30, 2022 Supervising Physician Co-Signing Physician Notes Patient seen and examined. EMR reviewed. Patient appears to be back to his baseline pulmonary status. He has declined interventions directed at home health or rehab. From a pulmonary standpoint, he can be dismissed from the hospital. He will need to follow-up with his [employer] company to get a new Oxymizer. Would complete prednisone burst as noted. He can follow-up with Dr. Abel in the outpatient setting Pulmonary will sign off. Feel free to contact us with questions or concerns Subjective Patient was seen and evaluated bedside today. He reports that his breathing is back at baseline. He is frustrated about his room assignment, but otherwise feels better. Review of Systems Review of Systems: A complete 6 point review of systems was reviewed with the patient with pertinent positives and negatives as per history of present illness. All else were negative. Physical Exam Physical Exam: VITAL SIGNS - Vital signs and nursing notes were reviewed. GENERAL - 72-year-old male appearing his stated age who is in no acute distress. Communicates well with provider and answers questions appropriately. very hard of hearing. MOUTH/OROPHARYNX - Without perioral cyanosis. Buccal mucosa pink and dry. NECK - Neck with FROM. LUNGS - Auscultation reveals slight expiratory wheezes. CARDIAC - RRR with S1/S2. No murmur, rubs, or gallops appreciated. ABDOMEN - Abdominal inspection demonstrates flat abdomen. BS normoactive all four quadrants. No tenderness, palpable masses, or ascites noted. EXTREMITIES - No peripheral cyanosis. No pretibial edema present. +3/5 radial palpated throughout. PSYCH - A&Ox3 and cooperates fully with examiner. Pt is very pleasant and interacts well with examiner. Results & Data Results & Data Vital Signs (Past 12 Hours) Vital Signs Temp Pulse Pulse Resp BP Pulse Ox Pulse Ox 10/03/22 07:00 71 10/03/22 07:12 88 18 98 10/03/22 03:30 36.9 C 88 20 121/72 94 10/03/22 02:02 70 17 93 10/03/22 00:28 89 10/02/22 23:34 36.6 C 82 20 146/63 H 93 10/02/22 21:30 92 O2 Del Method O2 Del Method O2 Flow Rate O2 Flow Rate 10/03/22 07:00 10/03/22 07:12 Nasal Cannula 7 10/03/22 03:30 High Flow Nasal Cannula 7 10/03/22 02:02 7 10/03/22 00:28 10/02/22 23:34 Nasal Cannula 7.0 10/02/22 21:30 Nasal Cannula 7 PG Care Time/CCT Total # of Minutes Spent Total Time Spent with Patient: Total time spent is greater than 50% in coordination of care (as documented) at patient's floor/unit and/or counseling patient: Coding Level of Care Code 74162 SUB INP/OBS CARE 3/50MIN Diagnoses COPD exacerbation J44.1 Pneumonia J18.9 Acute on chronic respiratory failure with hypoxia and hypercapnia J96.21; J96.22 End stage COPD J44.9 Chronic dyspnea R06.09
[2022-10-03] MEDS: AZITHROMYCIN 500 MG in DEXTROSE 5% 250 ML IV SCH (15:46)
--- NOTE | 2022-10-03 17:57 | Hospitalist Progress Note ---
Date of Service October 03, 2022 Assessment & Plan (1) Acute on chronic respiratory failure with hypoxia and hypercapnia: Plan: Secondary to COPD exacerbation with pneumonia (2) Pneumonia: Plan: CXR shows bibasilar and right midlung consolidation consistent with multifocal pneumonia. Does not appear septic --afebrile, no leukocytosis, procalcitonin negative. Concern for possible aspiration-appreciate speech therapy input and recommendation. No significant swallowing problem reported Received IV cefepime in the ED, will continue with and add Flagyl for aspiration coverage. Check MRSA nasal swab -negative for any MRSA Blood culture is growing gram-positive cocci in clusters 1 out of 2 bottles- likely contaminant Repeat blood culture -negative Antibiotic will be changed to cefuroxime and azithromycin Continue Daliresp, Incruse, Perforomist, and budesonide with as needed DuoNebs. Remains afebrile and white count is normal We will get PT and OT evaluation Condition is much better and awaiting PT and OT evaluation (3) COPD exacerbation: Plan: Has end-stage COPD Patient presenting from home with reports of acute onset shortness of breath after his oxygen became disconnected from his CPAP overnight. Patient reports he was saturating in the 50s at home. In the ED, initially placed on BiPAP, now transitioned to 10 L of high flow nasal cannula Initial ABG-pH 7.28, PCO2 70, PO2 196, HCO3 33. Repeat-not any worse Appreciate pulmonary input and recommendation IV [id number] to oral prednisone and will have a total of 5 days course Has been getting nebulized bronchodilator But his symptoms are better today No acute symptoms (4) Elevated troponin: Plan: HS trop 74.2 --> 75.3 No reports of chest pain, EKG without acute ST changes Likely demand ischemia in the setting of profound hypoxia. Serial troponins are unremarkable for any ACS Patient remained asymptomatic (5) PTSD (post-traumatic stress disorder): Plan: No acute confusion (6) Anxiety: (7) Depression: Plan: Continue home meds DVT PROPHYLAXIS SQ Lovenox Dispo- Patient found to be covered in bugs and bug bites. Will need home health at a minimum at discharge. PT/OT evals, case management to follow. s. Admission and Anticipated Discharge Date Admission Date: September 30, 2022 Subjective 10/01/2022 The patient was seen and examined in telemetry unit He has been feeling a little better since admission His wheezing and shortness of breath are improved and is still requiring 8 L to maintain saturation Denies any chest pain and/or palpitation 10/02/2022 The patient was seen and examined in telemetry unit He has been feeling much better today Cough and shortness of breath are improved Oxygen requirement has gone down 10/03/2022 The patient was seen and examined in telemetry unit He has been feeling much better Denies any significant symptoms and breathing has improved We will get PT and OT evaluation Review of Systems Review of Systems: All systems reviewed and are unremarkable except as noted below Physical Exam Physical Exam: Lying in bed with minimal respiratory distress and wheezing Constitutional: + ill appearing and average body habitus Eyes: PERRL, conjunctivae normal, anicteric sclerae ENMT: external ear and nose normal, oropharynx normal Neck: trachea midline, no thyromegaly Respiratory: + respiratory distress (Mild to moderate) Auscultation: + diminished lung sounds, + crackles and + wheezes Cardiovascular: Rate/Rhythm: regular rate, regular rhythm and + tachycardic Heart Sounds: normal S1, normal S2 and + murmur Extremities: no edema Gastrointestinal (Abdomen): Inspection/Auscultation: normal bowel sounds; abdomen not distended Percussion/Palpation: abdomen soft; abdomen nontender Psychiatric: A+Ox3, euthymic affect Lymphatic: no cervical or axillary lymphadenopathy Results & Data Results & Data Vital Signs (Past 12 Hours) Vital Signs Temp Pulse Pulse Resp BP Pulse Ox O2 Del Method 10/03/22 16:42 36.9 C 69 20 124/63 95 Nasal Cannula 10/03/22 15:35 81 10/03/22 12:00 37.0 C 87 19 108/71 97 Nasal Cannula 10/03/22 08:00 Nasal Cannula 10/03/22 07:00 71 10/03/22 07:12 88 18 98 Nasal Cannula O2 Flow Rate 10/03/22 16:42 7 10/03/22 15:35 10/03/22 12:00 7 10/03/22 08:00 10/03/22 07:00 10/03/22 07:12 7 Laboratory Results Short CBC 10/03/22 Range/Units 07:51 WBC 9.32 (4.8-10.8) K/ul Hgb 11.4 L (14.0-18.0) g/dl Hct 35.3 L (42.0-52.0) % Plt Count 148 (130-400) K/uL BMP 10/03/22 07:51 Sodium 138 Potassium 4.3 Chloride 96 L Carbon Dioxide 36 H BUN 20 Creatinine 0.98 Glucose 165 H Calcium 9.2 Medications Administered Current Inpatient Medications Acetaminophen (Acetaminophen 325 Mg Tab) 650 mg PO Q4H PRN PRN Reason: Pain or Fever Stop: 10/30/22 13:07 Last Admin: 10/01/22 12:21 Dose: 650 mg Acetylcysteine (Acetylcysteine 10% Inhal Soln 4 Ml Dispensed By Resp.) 2 ml INH BID [facility] Stop: 10/30/22 20:59 Last Admin: 10/03/22 19:16 Dose: 2 ml Albuterol (Albut/Ipratrop 3mg/0.5mg Neb 3 Ml Vial) 3 ml NEB QIDR PRN; Protocol PRN Reason: Shortness Of Breath Or Wheezing Stop: 10/30/22 13:07 Budesonide (Budesonide 0.25 Mg/2 Ml Vial (Pulmicort)) 0.5 mg INH BIDR [facility] Stop: 10/30/22 18:59 Last Admin: 10/03/22 19:14 Dose: 0.5 mg Buspirone HCl (Buspirone 7.5 Mg Tab) 7.5 mg PO HS [facility] Stop: 10/30/22 20:59 Last Admin: 10/02/22 20:48 Dose: 7.5 mg Diltiazem HCl (Diltiazem Hcl 240 Mg Capcr) 240 mg PO DAILY [facility] Stop: 10/31/22 08:59 Last Admin: 10/03/22 09:09 Dose: 240 mg Formoterol Fumarate (Formoterol 20 Mcg/2 Ml Vial) 20 mcg NEB BIDR [facility] Stop: 10/30/22 18:59 Last Admin: 10/03/22 19:15 Dose: 20 mcg Guaifenesin (Guaifenesin 600 Mg Tabcr) 1,200 mg PO BID [facility] Stop: 10/30/22 20:59 Last Admin: 10/03/22 09:09 Dose: 1,200 mg Cefuroxime Sodium 1,000 mg/ (Dextrose) 60 mls @ 100 mls/hr IV Q8 [facility]; Protocol Stop: 10/09/22 21:59 Last Infusion: 10/03/22 15:06 Dose: Infused Azithromycin 500 mg/ Dextrose 255 mls @ 127.5 mls/hr IV Q24H [facility] Stop: 10/09/22 17:08 Last Infusion: 10/03/22 17:48 Dose: Infused Lactobacillus Acidophilus (Lactobacillus Acidophilus 1 Gm Pack) 2 gm PO DAILY [facility] Stop: 10/31/22 08:59 Last Admin: 10/03/22 09:09 Dose: 2 gm Methylprednisolone (Methylprednisolone 4 Mg Tab) 8 mg PO HS [facility] Stop: 10/03/22 21:01 Methylprednisolone (Methylprednisolone 4 Mg Tab) 4 mg PO 0700,1300,1800,2100 [facility] Stop: 10/04/22 21:01 Methylprednisolone (Methylprednisolone 4 Mg Tab) 4 mg PO 0700,1300,2100 [facility] Stop: 10/05/22 21:01 Methylprednisolone (Methylprednisolone 4 Mg Tab) 4 mg PO 0700,2100 [facility] Stop: 10/06/22 21:01 Methylprednisolone (Methylprednisolone 4 Mg Tab) 4 mg PO 0700 [facility] Stop: 10/07/22 07:01 Pantoprazole Sodium (Pantoprazole 40 Mg Tab) 40 mg PO BID [facility] Stop: 10/30/22 20:59 Last Admin: 10/03/22 09:09 Dose: 40 mg Polyethylene Glycol (Polyethylene (Miralax) 17 Gm Pack) 17 gm PO DAILY PRN PRN Reason: Constipation Stop: 10/30/22 13:07 Potassium Chloride (Potassium Chloride 10 Meq Tabcr) 10 meq PO DAILY [facility] Stop: 10/31/22 08:59 Last Admin: 10/03/22 09:09 Dose: 10 meq Roflumilast (Roflumilast 500 Mcg Tab) 500 mcg PO DAILY [facility] Stop: 10/31/22 08:59 Last Admin: 10/03/22 09:08 Dose: 500 mcg Sertraline HCl (Sertraline Hcl 100 Mg Tablet) 200 mg PO HS [facility] Stop: 10/30/22 20:59 Last Admin: 10/02/22 20:47 Dose: 200 mg Tramadol HCl (Tramadol Hcl 50 Mg Tablet) 50 mg PO Q6H PRN PRN Reason: Moderate-Severe Pain Stop: 10/30/22 15:36 Last Admin: 10/02/22 19:38 Dose: 50 mg Trazodone HCl (Trazodone Hcl 50 Mg Tab) 150 mg PO HS [facility] Stop: 10/30/22 20:59 Last Admin: 10/02/22 20:46 Dose: 150 mg Umeclidinium [place] (Umeclidinium [place] 62.5mcg/Blister 7 Puffs/Inhaler) 1 puffs INH DAILY [facility] Stop: 10/31/22 08:59 Last Admin: 10/03/22 09:09 Dose: 1 puffs
[2022-10-03] MEDS ORDERED: methylPREDNISolone 4 MG TAB PO SCH (21:00)
[2022-10-03] MEDS: SERTRALINE HCL 100 MG TABLET PO SCH (21:10)
[2022-10-03] MEDS: busPIRone 7.5 MG TAB PO SCH (21:11)
[2022-10-03] MEDS: traZODone HCL 50 MG TAB PO SCH (21:11)
[2022-10-04] MEDS: cefUROXime 1,000 MG in DEXTROSE 5% 50 ML IV SCH ×3 (05:49→21:54)
[2022-10-04] MEDS: ACETYLCYSTEINE 10% INHAL SOLN 4 ML **DISPENSED BY RESP. INH SCH ×2 (06:51→19:32)
[2022-10-04] MEDS: BUDESONIDE 0.25 MG/2 ML VIAL (PULMICORT) INH SCH ×2 (06:51→19:36)
[2022-10-04] MEDS: FORMOTEROL 20 MCG/2 ML VIAL NEB SCH ×2 (06:51→19:32)
[2022-10-04 07:41] LABS: Basophils # (auto) 0.01 K/uL (0-0.2); Basophils % (auto) 0.1 %; Hematocrit (blood only) 32.1 % (42.0-52.0); Hemoglobin 10.4 g/dl (14.0-18.0); Immature Granulocytes # (auto) 0.13 K/uL (0.01-0.20); Immature Granulocytes % (auto) 1.5 %; Lymphocytes # (auto) 1.04 K/uL (1.2-3.4); Lymphocytes % (auto) 12.2 %; Mean Corpuscular Hemoglobin 29.2 pg (25.0-34.0); Mean Corpuscular Hgb Conc 32.4 g/dL (32.0-36.0); Mean Corpuscular Volume 90.2 fL (80.0-100.0); Mean Platelet Volume 10.2 fL (9.4-12.4); Monocytes # (auto) 0.69 K/uL (0.11-0.59); Monocytes % (auto) 8.1 %; Neutrophils # (auto) 6.63 K/uL (1.40-6.50); Neutrophils % (auto) 78.1 %; Platelet Count 132 K/uL (130-400); RDW Coefficient of Variation 13.8 % (11.5-14.5); RDW Standard Deviation 45.4 fL (36.4-46.3); Red Blood Count 3.56 M/uL (4.70-6.10)
[2022-10-04 08:03] LABS: BUN Creatinine Ratio 21.3 (10-20); Calcium 8.7 mg/dl (8.6-10.3); Creatinine Clr Calc Pharmacy 77.5 ml/min; Est GFR (Non-African American) 85.4 ml/min; Potassium 4.4 mmol/L (3.5-5.1)
[2022-10-04] MEDS: guaiFENesin 600 MG TABCR PO SCH ×2 (09:22→20:28)
[2022-10-04] MEDS: ROFLUMILAST 500 MCG TAB PO SCH (09:22)
[2022-10-04] MEDS: methylPREDNISolone 4 MG TAB PO SCH ×4 (09:22→20:26)
[2022-10-04] MEDS: PANTOprazole 40 MG TAB PO SCH ×2 (09:22→20:27)
[2022-10-04] MEDS: UMECLIDINIUM BROMIDE 62.5MCG/BLISTER 7 PUFFS/INHALER INH SCH (09:23)
[2022-10-04] MEDS: dilTIAZem HCL 240 MG CAPCR PO SCH (09:23)
[2022-10-04] MEDS: POTASSIUM CHLORIDE 10 MEQ TABCR PO SCH (09:23)
[2022-10-04] MEDS: LACTOBACILLUS ACIDOPHILUS 1 GM PACK PO SCH (09:23)
--- NOTE | 2022-10-04 16:31 | Hospitalist Progress Note ---
Date of Service October 04, 2022 Assessment & Plan (1) Acute on chronic respiratory failure with hypoxia and hypercapnia: Plan: Secondary to COPD exacerbation with pneumonia (2) Pneumonia: Plan: CXR shows bibasilar and right midlung consolidation consistent with multifocal pneumonia. Does not appear septic --afebrile, no leukocytosis, procalcitonin negative. Concern for possible aspiration-appreciate speech therapy input and recommendation. No significant swallowing problem reported Received IV cefepime in the ED, will continue with and add Flagyl for aspiration coverage. Check MRSA nasal swab -negative for any MRSA Blood culture is growing gram-positive cocci in clusters 1 out of 2 bottles- likely contaminant Repeat blood culture -negative Antibiotic will be changed to cefuroxime and azithromycin Continue Daliresp, Incruse, Perforomist, and budesonide with as needed DuoNebs. Remains afebrile and white count is normal We will get PT and OT evaluation Condition is much better and awaiting PT and OT evaluation PT OT recommended home but he is not yet ready to be discharged We will continue current management (3) COPD exacerbation: Plan: Has end-stage COPD Patient presenting from home with reports of acute onset shortness of breath after his oxygen became disconnected from his CPAP overnight. Patient reports he was saturating in the 50s at home. In the ED, initially placed on BiPAP, now transitioned to 10 L of high flow nasal cannula Initial ABG-pH 7.28, PCO2 70, PO2 196, HCO3 33. Repeat-not any worse Appreciate pulmonary input and recommendation IV [id number] to oral prednisone and will have a total of 5 days course Has been getting nebulized bronchodilator But his symptoms are better today No acute symptoms Will be transferred to medical floor for continuation of care COPD seems to be at his baseline Likely discharge in a day or 2 (4) Elevated troponin: Plan: HS trop 74.2 --> 75.3 No reports of chest pain, EKG without acute ST changes Likely demand ischemia in the setting of profound hypoxia. Serial troponins are unremarkable for any ACS Patient remained asymptomatic (5) PTSD (post-traumatic stress disorder): Plan: No acute confusion (6) Anxiety: (7) Depression: Plan: Continue home meds DVT PROPHYLAXIS SQ Lovenox Dispo- Patient found to be covered in bugs and bug bites. Will need home health at a minimum at discharge. PT/OT hugo, case management to follow. s. Admission and Anticipated Discharge Date Admission Date: September 30, 2022 Subjective 10/01/2022 The patient was seen and examined in telemetry unit He has been feeling a little better since admission His wheezing and shortness of breath are improved and is still requiring 8 L to maintain saturation Denies any chest pain and/or palpitation 10/02/2022 The patient was seen and examined in telemetry unit He has been feeling much better today Cough and shortness of breath are improved Oxygen requirement has gone down 10/03/2022 The patient was seen and examined in telemetry unit He has been feeling much better Denies any significant symptoms and breathing has improved We will get PT and OT evaluation 10/04/2022 The patient was seen and examined in telemetry unit He has been feeling much better today Minimal cough and no shortness of breath at rest Seems to be at his baseline Review of Systems Review of Systems: All systems reviewed and are unremarkable except as noted below Physical Exam Physical Exam: Lying in bed with minimal respiratory distress and wheezing Constitutional: + ill appearing and average body habitus Eyes: PERRL, conjunctivae normal, anicteric sclerae ENMT: external ear and nose normal, oropharynx normal Neck: trachea midline, no thyromegaly Respiratory: + respiratory distress (Mild to moderate) Auscultation: + diminished lung sounds, + crackles and + wheezes Cardiovascular: Rate/Rhythm: regular rate, regular rhythm and + tachycardic Heart Sounds: normal S1, normal S2 and + murmur Extremities: no edema Gastrointestinal (Abdomen): Inspection/Auscultation: normal bowel sounds; abdomen not distended Percussion/Palpation: abdomen soft; abdomen nontender Psychiatric: A+Ox3, euthymic affect Lymphatic: no cervical or axillary lymphadenopathy Results & Data Results & Data Vital Signs (Past 12 Hours) Vital Signs Temp Pulse Pulse Resp BP Pulse Ox O2 Del Method 10/04/22 14:14 86 16 114/73 93 Nasal Cannula 10/04/22 12:00 36.9 C 69 18 131/64 96 Room Air 10/04/22 08:00 Nasal Cannula 10/04/22 07:47 36.9 C 75 20 118/68 97 Nasal Cannula 10/04/22 07:00 83 10/04/22 06:53 78 18 91 Nasal Cannula O2 Flow Rate 10/04/22 14:14 6 10/04/22 12:00 10/04/22 08:00 10/04/22 07:47 10/04/22 07:00 10/04/22 06:53 6 Laboratory Results Short CBC 10/04/22 Range/Units 06:48 WBC 8.50 (4.8-10.8) K/ul Hgb 10.4 L (14.0-18.0) g/dl Hct 32.1 L (42.0-52.0) % Plt Count 132 (130-400) K/uL BMP 10/04/22 06:48 Sodium 140 Potassium 4.4 Chloride 96 L Carbon Dioxide 40 H BUN 19 Creatinine 0.89 Glucose 124 H Calcium 8.7 Medications Administered Current Inpatient Medications Acetaminophen (Acetaminophen 325 Mg Tab) 650 mg PO Q4H PRN PRN Reason: Pain or Fever Stop: 10/30/22 13:07 Last Admin: 10/01/22 12:21 Dose: 650 mg Acetylcysteine (Acetylcysteine 10% Inhal Soln 4 Ml Dispensed By Resp.) 2 ml INH BID PEARL Stop: 10/30/22 20:59 Last Admin: 10/04/22 06:51 Dose: 2 ml Albuterol (Albut/Ipratrop 3mg/0.5mg Neb 3 Ml Vial) 3 ml NEB QIDR PRN; Protocol PRN Reason: Shortness Of Breath Or Wheezing Stop: 10/30/22 13:07 Budesonide (Budesonide 0.25 Mg/2 Ml Vial (Pulmicort)) 0.5 mg INH BIDR PEARL Stop: 10/30/22 18:59 Last Admin: 10/04/22 06:51 Dose: 0.5 mg Buspirone HCl (Buspirone 7.5 Mg Tab) 7.5 mg PO HS PEARL Stop: 10/30/22 20:59 Last Admin: 10/03/22 21:11 Dose: 7.5 mg Diltiazem HCl (Diltiazem Hcl 240 Mg Capcr) 240 mg PO DAILY PEARL Stop: 10/31/22 08:59 Last Admin: 10/04/22 09:23 Dose: 240 mg Formoterol Fumarate (Formoterol 20 Mcg/2 Ml Vial) 20 mcg NEB BIDR PEARL Stop: 10/30/22 18:59 Last Admin: 10/04/22 06:51 Dose: 20 mcg Guaifenesin (Guaifenesin 600 Mg Tabcr) 1,200 mg PO BID PEARL Stop: 10/30/22 20:59 Last Admin: 10/04/22 09:22 Dose: 1,200 mg Cefuroxime Sodium 1,000 mg/ (Dextrose) 60 mls @ 100 mls/hr IV Q8 PEARL; Protocol Stop: 10/09/22 21:59 Last Admin: 10/04/22 14:48 Dose: 100 mls/hr Azithromycin 500 mg/ Dextrose 255 mls @ 127.5 mls/hr IV Q24H [facility]ARL Stop: 10/09/22 17:08 Last Infusion: 10/03/22 17:48 Dose: Infused Lactobacillus Acidophilus (Lactobacillus Acidophilus 1 Gm Pack) 2 gm PO DAILY PEARL Stop: 10/31/22 08:59 Last Admin: 10/04/22 09:23 Dose: 2 gm Methylprednisolone (Methylprednisolone 4 Mg Tab) 4 mg PO 0700,1300,1800,2100 [facility]AR[facility] Stop: 10/04/22 21:01 Last Admin: 10/04/22 13:49 Dose: 4 mg Methylprednisolone (Methylprednisolone 4 Mg Tab) 4 mg PO 0700,1300,2100 [facility]ARL Stop: 10/05/22 21:01 Methylprednisolone (Methylprednisolone 4 Mg Tab) 4 mg PO 0700,2100 PEARL Stop: 10/06/22 21:01 Methylprednisolone (Methylprednisolone 4 Mg Tab) 4 mg PO 0700 [facility]ARL Stop: 10/07/22 07:01 Pantoprazole Sodium (Pantoprazole 40 Mg Tab) 40 mg PO BID PEARL Stop: 10/30/22 20:59 Last Admin: 10/04/22 09:22 Dose: 40 mg Polyethylene Glycol (Polyethylene (Miralax) 17 Gm Pack) 17 gm PO DAILY PRN PRN Reason: Constipation Stop: 10/30/22 13:07 Potassium Chloride (Potassium Chloride 10 Meq Tabcr) 10 meq PO DAILY PEARL Stop: 10/31/22 08:59 Last Admin: 10/04/22 09:23 Dose: 10 meq Roflumilast (Roflumilast 500 Mcg Tab) 500 mcg PO DAILY [facility]ARL Stop: 10/31/22 08:59 Last Admin: 10/04/22 09:22 Dose: 500 mcg Sertraline HCl (Sertraline Hcl 100 Mg Tablet) 200 mg PO HS PEARL Stop: 10/30/22 20:59 Last Admin: 10/03/22 21:10 Dose: 200 mg Tramadol HCl (Tramadol Hcl 50 Mg Tablet) 50 mg PO Q6H PRN PRN Reason: Moderate-Severe Pain Stop: 10/30/22 15:36 Last Admin: 10/02/22 19:38 Dose: 50 mg Trazodone HCl (Trazodone Hcl 50 Mg Tab) 150 mg PO HS [facility] Stop: 10/30/22 20:59 Last Admin: 10/03/22 21:11 Dose: 150 mg Umeclidinium [place] (Umeclidinium [place] 62.5mcg/Blister 7 Puffs/Inhaler) 1 puffs INH DAILY [facility]AR[facility] Stop: 10/31/22 08:59 Last Admin: 10/04/22 09:23 Dose: 1 puffs
[2022-10-04] MEDS: AZITHROMYCIN 500 MG in DEXTROSE 5% 250 ML IV SCH (17:59)
[2022-10-04] MEDS: traZODone HCL 50 MG TAB PO SCH (20:26)
[2022-10-04] MEDS: SERTRALINE HCL 100 MG TABLET PO SCH (20:27)
[2022-10-04] MEDS: busPIRone 7.5 MG TAB PO SCH (20:28)
[2022-10-04] MEDS: traMADol HCL 50 MG TABLET PO PRN (20:31)
[2022-10-05] MEDS: cefUROXime 1,000 MG in DEXTROSE 5% 50 ML IV SCH (06:04)
[2022-10-05] MEDS: methylPREDNISolone 4 MG TAB PO SCH ×2 (06:05→12:49)
[2022-10-05] MEDS: BUDESONIDE 0.25 MG/2 ML VIAL (PULMICORT) INH SCH (07:27)
[2022-10-05] MEDS: ACETYLCYSTEINE 10% INHAL SOLN 4 ML **DISPENSED BY RESP. INH SCH (07:27)
[2022-10-05] MEDS: FORMOTEROL 20 MCG/2 ML VIAL NEB SCH (07:27)
[2022-10-05] MEDS: LACTOBACILLUS ACIDOPHILUS 1 GM PACK PO SCH (09:15)
[2022-10-05] MEDS: PANTOprazole 40 MG TAB PO SCH (09:15)
[2022-10-05] MEDS: ROFLUMILAST 500 MCG TAB PO SCH (09:16)
[2022-10-05] MEDS: dilTIAZem HCL 240 MG CAPCR PO SCH (09:17)
[2022-10-05] MEDS: guaiFENesin 600 MG TABCR PO SCH (09:17)
[2022-10-05] MEDS: UMECLIDINIUM BROMIDE 62.5MCG/BLISTER 7 PUFFS/INHALER INH SCH (09:18)
[2022-10-05] MEDS: POTASSIUM CHLORIDE 10 MEQ TABCR PO SCH (09:18)
--- NOTE | 2022-10-05 11:01 | Discharge Summary ---
Discharge Summary Date of Service October 05, 2022 Notes For Next Care Provider Patient hospitalized for acute on chronic hypercapnic and hypoxic respiratory failure, COPD exacerbation and multifocal pneumonia. He was treated with IV antibiotics which were de-escalated to azithromycin and cefuroxime. He will complete a 10-day course. He was also treated with IV Solu-Medrol which was eventually tapered to methylprednisolone. He did undergo speech therapy evaluation and aspiration was ruled out. Medication Changes From Visit Azithromycin 250 mg daily for additional 3 days, and then resume your maintenance dose of 3 times weekly. Cefuroxime 500 mg twice daily until complete, will finish on October 11. Complete prednisone taper with 3 tablets for 1 day, 2 tablets for 1 day and 1 tablet for 1 day then complete. Continue all other medications as prescribed. Admission HPI Per Admitting Provider 72-year-old male with PMH end-stage, severe, oxygen dependent COPD on 6 L, cirrhosis, HTN, PTSD, depression and anxiety, history of tobacco abuse, chronic anemia, and other problems listed below who presents to the ED for evaluation of shortness of breath. History obtained from patient and review of recent admission records. Patient recently discharged from [facility] on 09/02. Patient reports he has been feeling poorly since returning home from the hospital. Reports progressive worsening shortness of breath, wheezing, cough. Overnight, patient's oxygen became detached from his CPAP machine and he woke up feeling very short of breath. Patient states that he was saturating in the 50s. Patient reports his cough has been productive for white sputum. Denies fevers and chills. No chest pain or shortness of breath. Denies lightheadedness, dizziness, diaphoresis, syncopal events. No abdominal pain, nausea, vomiting. Reports chronic diarrhea which is unchanged from baseline. No urinary symptoms. In the ED, patient was initially placed on BiPAP and is now on 10 L high flow nasal cannula. ABG shows pH 7.28, PCO2 70, PO2 196, HCO3 33. CXR shows bibasilar and right midlung consolidation suggestive of multifocal pneumonia. Patient was given nebulizer treatment and IV cefepime. Admission Exam Per Admitting Provider Constitutional: + thinChronically ill-appearing Eyes: PERRL, conjunctivae normal, anicteric sclerae ENMT: external ear and nose normal, oropharynx normal Respiratory: normal respiratory effort and + cough; no respiratory distress Auscultation: + wheezes (Bilateral, scattered, expiratory) Cardiovascular: Rate/Rhythm: regular rate and regular rhythm Vessels: normal peripheral pulses Extremities: no edema Gastrointestinal (Abdomen): normal bowel sounds, soft, nontender, no hepatosplenomegaly Musculoskeletal: no cyanosis or clubbing, extremities motor strength 5/5 Skin: no rashes, warm and dry Scattered pinpoint bug bites over both lower extremities Neurologic: PERRL, EOMI, accommodation nl, no face palsy, no dysarthria Psychiatric: A+Ox3, euthymic affect Principal Dx & Hospital Course #1 = Principal Diagnosis (1) Acute on chronic respiratory failure with hypoxia and hypercapnia: (2) Pneumonia: (3) COPD exacerbation: (4) Elevated troponin: (5) PTSD (post-traumatic stress disorder): (6) Anxiety: (7) Depression: Plan 72-year-old male with PMH end-stage, severe, oxygen dependent COPD on 6 L, cirrhosis, HTN, PTSD, depression and anxiety, history of tobacco abuse, chronic anemia, and other problems listed below who presents to the ED for evaluation of shortness of breath. Initial chest x-ray showed bibasilar and right midlung consolidation consistent with multifocal pneumonia. He required BiPAP therapy on admission. At baseline he is on 6 L of oxygen. He was initially treated with broad-spectrum IV antibiotics. He was negative for MRSA. Initial blood cultures were positive for Staphylococcus species but was felt to be secondary to contaminant. Repeat blood cultures were negative. He was started on IV Solu-Medrol. Patient's antibiotics were de-escalated to oral azithromycin and cefuroxime. He was also de-escalated from IV Solu-Medrol to oral methylprednisolone taper. He was seen and evaluated by PT and OT and deemed safe to discharge home. He was also evaluated by speech therapy to rule out aspiration component of pneumonia and felt no significant swallowing problems reported. He continue his routine regimen of Daliresp, Incruse, Perforomist and budesonide with as needed DuoNebs while inpatient. Symptoms gradually improved while hospitalized. Also of note patient was found to be covered in bugs and bug bites on admission. It was recommended patient be discharged with home health services for further assistance at home as he lives at home with spouse. He states that he has been a home-based care and therefore does not want home health. On day of discharge patient was hemodynamically stable, felt symptoms were improving, back to baseline and was saturating at 97% on his normal 6 L. [facility]. Discharge Exam Gen: WD/WN, NAD, A&O x3, fraile, elderly HEENT: Normocephalic, atraumatic, conjunctivae moist, sclerae anicteric, mucous membranes dry Lung: Clear to Auscultation bilaterally, distant breath sounds b/l +crackle/wheeze no rhonchii Heart: Regular rate, regular rhythm, no murmurs, rubs, or gallops Abdomen: Soft, NT, ND +BS x 4 Extremities: No edema Skin: Warm, no rash, negative turgor. Updated Medication List Medication Instructions Recorded Confirmed Type omeprazole 20 mg capsule,delayed 20 mg PO BID 04/08/18 09/30/22 History release sertraline 100 mg tablet 200 mg PO HS 04/08/18 09/30/22 History trazodone 150 mg tablet 150 mg PO HS 04/08/18 09/30/22 History albuterol sulfate 90 mcg/actuation 2 puff inhalation Q6H PRN 07/04/18 09/30/22 History aerosol inhaler Shortness Of Breath Or Wheezing epinephrine 0.3 mg/0.3 mL 0.3 mg IM DIRECTED PRN Allergic 08/22/18 09/30/22 History injection, auto-injector (EpiPen) Reaction cholecalciferol (vitamin D3) 25 2,000 unit PO QAM 08/19/19 09/30/22 History mcg (1,000 unit) capsule (Vitamin D3) cyanocobalamin (vitamin B-12) 1,000 mcg PO 2XWK 12/19/20 09/30/22 History 1,000 mcg tablet (Vitamin B-12) umeclidinium 62.5 mcg/actuation 1 inh inhalation DAILY 30 days #30 09/26/21 0 09/30/22 Rx blister powder for inhalation ea (Incruse Ellipta) acetylcysteine 100 mg/mL (10 %) 2 ml inhalation BID #100 mL 10/10/21 09/30/22 Rx solution formoterol fumarate 20 mcg/2 mL 20 mcg (2 mL) NEB BID 30 days #120 12/25/21 09/30/22 Rx solution for nebulization mL (Perforomist) ascorbic acid (vitamin C) 1,000 mg 1 g PO DAILY 06/11/22 09/30/22 History tablet (Vitamin C) budesonide 0.25 mg/2 mL suspension 0.5 mg inhalation BID 06/11/22 09/30/22 History for nebulization buspirone 15 mg tablet 7.5 mg PO HS 06/11/22 09/30/22 History ipratropium 0.5 mg-albuterol 3 mg 3 ml NEB QID PRN Shortness Of 06/11/22 09/30/22 History (2.5 mg base)/3 mL nebulization Breath Or Wheezing soln lactobacillus combination no.4 3 0 mmu cells PO DAILY 06/11/22 09/30/22 History billion cell capsule (Probiotic) lanolin alcohols-mineral 1 applic topical DAILY PRN Dry Skin 06/11/22 09/30/22 History oil-w.petrolatum-ceresin topical cream (Eucerin topical cream) potassium chloride 20 mEq 10 meq PO DAILY 06/11/22 09/30/22 History tablet,extended release azithromycin 250 mg tablet 250 mg PO 3XWK 06/12/22 09/30/22 History diltiazem HCl 240 mg 240 mg PO DAILY 06/12/22 09/30/22 History capsule,extended release 24 hr (Cardizem CD) roflumilast 500 mcg tablet 500 mcg PO DAILY 06/12/22 09/30/22 History (Daliresp) guaifenesin 600 mg tablet, 1,200 mg PO BID 08/26/22 09/30/22 History extended release 12 hr (Mucinex) azithromycin 250 mg tablet 250 mg PO DAILY 3 days #3 tabs 10/05/22 Rx cefuroxime axetil 500 mg tablet 500 mg PO BID #13 tabs 10/05/22 Rx methylprednisolone 4 mg tablet 4 mg PO 0700 #1 tab 10/05/22 Rx methylprednisolone 4 mg tablet 4 mg PO 0700,1300,2100 #3 tabs 10/05/22 Rx methylprednisolone 4 mg tablet 4 mg PO 0700,2100 #2 tabs 10/05/22 Rx Hospital Stay Data Consultations 09/30/22 19:39 Consult Pulmonology Routine Diagnostic Imagining Performed Chest X-Ray 09/30/22 06:33 XR chest 1V portable HISTORY: 72 years-old Male Chest pain, nonspecific acute chest pain COMPARISON: 09/02/2022 TECHNIQUE: AP view of the chest FINDINGS: Cardiac silhouette is enlarged. Unchanged appearance of the mediastinal c ontours. Severe emphysema with chronic interstitial coarsening. Progressively worsened bibasilar and right midlung airspace opacities. No pneumothorax or large pleural effusion. Degenerative changes of the shoulders and spine. IMPRESSION: 1. Severe emphysema with chronic interstitial coarsening. 2. Bibasilar and right midlung consolidation suggestive of multifocal pneumonia. ACT 112: Negative or not required by law. The above report was generated using voice recognition software. It may contain grammatical, syntax or spelling errors. Electronically signed by: Felton Cr M.D. 09/30/2022 8:12 AM Pending Results Patient Have Any Pending Studies at Discharge: No Discharge Instructions Given to Patient (Per Discharging Provider) MEDICATION CHANGES: Azithromycin 250 mg daily for additional 3 days, and then resume your maintenance dose of 3 times weekly. Cefuroxime 500 mg twice daily until complete, will finish on October 11. Complete prednisone taper with 3 tablets for 1 day, 2 tablets for 1 day and 1 tablet for 1 day then complete. Continue all other medications as prescribed. RECOMMENDATIONS FOR FOLLOW-UP: Please follow-up with your primary care provider at the [facility] upon discharge from hospital. Continue all current medications. Remain compliant with Bipap therapy at bedtime. OTHER INSTRUCTIONS: Seek medical attention if you have: * temperature above 101 * chest pain or trouble breathing * abdominal pain, nausea, vomiting * diarrhea, dark stools or bloody stools * any unanswered questions or concerns Call 911 if symptoms are severe. Please take good care of yourself. It has been a pleasure taking care of you. Please take care of yourself. If you have any questions regarding your recent hospitalization please contact [facility] and request Milo Hung @ [phone]. Total Time Total Time Spent Total Time Spent (In Minutes): 45 minutes Supervising Physician Co-Signing Physician Notes Attending addendum The patient was seen and examined in the medical floor He has been feeling much better and denies any significant symptoms His cough and shortness of breath have improved He is back to his baseline oxygen requirement On examination Lying in bed comfortably Remains hemodynamically stable Chestdecreased breath sounds with minimal wheezing bilaterally Labs and imaging studies reviewed Medications on discharge reviewed Agree with assessment and plan as outlined above by Miriam mar
[2022-10-06] MEDS ORDERED: methylPREDNISolone 4 MG TAB PO SCH (07:00)
[2022-10-07] MEDS ORDERED: methylPREDNISolone 4 MG TAB PO SCH (07:00)
== END 2022-10-05 13:54 | disposition home or self-care (01) | DRG 193 ==
LOC: ED 06:09 → 2S 09:32 → SUATTDRO 09:32 → 2S 12:15 → 3E 10-04 14:05

== ENCOUNTER 2023-01-21 14:08 | Inpatient (IN) ==
--- NOTE | 2023-01-21 14:19 | Emergency Department Note ---
Impression & Plan Chest pain, COPD (chronic obstructive pulmonary disease) with emphysema, SOB (shortness of breath) ED Provider Note INFORMANT: Patient, EMS ED PROVIDER(S): Sanjeev Andino MD CHIEF COMPLAINT: Chest pain PLAN: Disposition: Admitted Condition: Guarded Outpatient prescription management: none Referral: None MEDICAL DECISION MAKING: Patient presented. He was already treated with a breathing treatment and Solu- Medrol. Prior records reviewed. Patient has long history of COPD. EMS noted the patient's living situation was poor. They did note a bedbug infestation. Patient was found to have a leukocytosis on CBC. Chemistry panel was unremarkable. Troponin negative but BNP was minimally elevated. Patient chest x-ray revealed advanced emphysematous changes. CT imaging of the chest revealed no thromboembolic disease. Advanced emphysematous changes some atelectasis noted. Patient received a second nebulizer treatment. He was given IV morphine for his chest pain. ECG did not reveal any acute ischemia. Patient desaturates quite easily with minimal exertion. Patient dropped into the high 70s with simple transfer from CT imaging to the [facility]. Patient will need further management in the hospital. Consultation was made with the [facility] hospitalist service. Patient was evaluated in the ER and admitted for further management. Discussed with acting manager After review of the information above and other included data, I feel the patient requires admission. Triage Nursing notes reviewed and agree them. Vital Signs: reviewed and remarkable for hypoxia Prior /Outside records reviewed: Prior visit and hospitalization records reviewed. Differential diagnosis: COPD,Reactive airway disease, pneumonia, pneumothorax, CHF, infections, cardiac ischemia, pulmonary embolism, musculoskeletal, gastrointestinal, as well as other pathologies. Diagnostics, as interpreted by me: EC Lead ECG performed and revealed Normal sinus rhythm at 99, normal [place], QRS normal. No elevation or depression. No PACs or PVCs Cardiac Monitoring: Cardiac monitoring ordered by me: The patient was placed on continuous cardiac monitoring and observed. It revealed a normal sinus rhythm at 84 beats per minute without ectopy or evidence of dysrhythmia. Medical decision rules: none Imaging studies: Chest x-ray and CT scan as above HPI: The patient is a 72year old male who presents to the Emergency Room with complaints of chest pain and shortness of breath. This started last night And is somewhat improved today. Patient has a long history of COPD. EMS was summoned. Patient was given a breathing treatment and Solu-Medrol. EMS noted that the patient's home was unkempt and that there was a bedbug infestation. the patient also notes the following associated symptoms, fatigue.Current pain is rated as 8/10. Pt denies LOC, headache, fevers, chills, diaphoresis, visual changes, neck pain, chest pain, breathing difficulties, nausea, vomiting, abdominal pain, back pain, melena, hematochezia, urinary symptoms, numbness, weakness, lymphadenopathy, rash, or other complaints. PAST MEDICAL HISTORY: See Below, COPD PAST SURGICAL HISTORY: See Below, SOCIAL HISTORY: See Below, retired HOME MEDICATIONS: See Below ALLERGIES: See Below VITALS: See Below PHYSICAL EXAMINATION: GENERAL: Awake, alert, mildly distant-appearing, in no distress HENT: Normocephalic, atraumatic. Oropharynx unremarkable. EYES: Normal conjunctiva. Sclera non-icteric. NECK: Inspection normal. Non-tender. Supple. No nuchal rigidity. FROM. No masses. RESPIRATORY: Clear to auscultation. No wheezes. No rales. Normal respiratory effort. CARDIAC: Borderline tachycardic rate. Normal rhythm. No murmurs. No rubs. Extremities warm and well perfused. Pulses equal. No JVD. GI: Soft, non-distended. No tenderness to palpation. No rebound or guarding. No masses. RECTAL: Deferred. MUSCULOSKELETAL: Atraumatic. Chest examination reveals right anterior tenderness. No joint edema. LOWER EXTREMITIES: Calves are equal size bilaterally and non-tender. No edema. No discoloration. NEURO: Normal sensorium. No sensory or motor deficits noted. SKIN: Few scattered petechiae in the lower extremities otherwise no rash or jaundice noted. Past Med/Surg History Medical History (Updated 01/21/23 @ 14:19 by Sanjeev Andino MD) Anemia Anxiety Chronic dyspnea Chronic respiratory failure with hypoxia Cirrhosis of liver COPD (chronic obstructive pulmonary disease) with emphysema Depression End stage COPD GERD (gastroesophageal reflux disease) Hearing deficit BL BRUNO 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 Wilbur exposure History of COVID-19 05/2020 - hospitalized at [facility] - sob, cough, generalized weakness --> pneumonia; still requiring more supplemental oxygen since having Covid (currently on 6 lpm cont home o2, prior to covid was only on 4 lpm) History of kidney stones History of tobacco abuse HTN (hypertension) Observed seizure-like activity On home O2 cont @ 6 lpm Osteoarthritis PTSD (post-traumatic stress disorder) Pulmonary nodules Thrombocytopenia Surgical History Dilatation of ureter H/O hernia repair History of appendectomy History of cardiac cath x 2 - most recent [place] 2010 - no stents; also cath years prior [place] [facility] [place] no stents History of colonoscopy History of extraction of renal calculus History of tonsillectomy Loss of teeth due to extraction S/P arthroscopic surgery of right knee Family History Mother Colon cancer Father FH: kidney cancer Other Cancer Social History Smoking Status: Former smoker Tobacco Type: Cigarettes Cigarettes Per Day: 40 pack year hx; Second Hand Exposure: No; Do You Dip or Chew Tobacco: No; Hx Alcohol Use: Yes Alcohol type: hard liquor Hx Substance Use: No Preferred Language: Hong Konger Communication Ability: Effective 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 Beliefs That Will Affect Care: None marital status: Current Living Situation: Spouse and Family Current Living Situation Comment: Lives with , son, DIL, grandkids 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 Feels Safe at Home: Yes Assistive Devices: Oxygen - Continuous, Stair Lift and Walker Allergies Allergies Allergy/AdvReac Type Severity Reaction Status Date / Time bee venom protein (honey bee) Allergy Severe ANAPHYLAXIS Verified 01/21/23 16:51 amoxicillin Allergy Intermediate FACIAL Verified 01/21/23 16:51 SWELLING (EYES SWELLED SHUT) clavulanic acid Allergy Intermediate FACIAL Verified 01/21/23 16:51 SWELLING (EYES SWELLED SHUT) pneumococcal vaccine Allergy Intermediate SWELLING Verified 01/21/23 16:51 Elxgcvm-FBF-VgT Reductase Allergy Intermediate CPK'S GO Verified 01/21/23 16:51 Inhibitor THROUGH [Thivpoe-Dth-Vyj Reductase ROOF Inhibitor] prednisone AdvReac Intermediate confusion Verified 01/21/23 16:51 and agitation Home Meds Home Medications Medication Instructions Recorded Confirmed omeprazole 20 mg capsule,delayed 20 mg PO BID 04/08/18 01/21/23 release sertraline 100 mg tablet 200 mg PO HS 04/08/18 01/21/23 trazodone 150 mg tablet 150 mg PO HS 04/08/18 01/21/23 albuterol sulfate 90 mcg/actuation 2 puff inhalation Q6H PRN 07/04/18 01/21/23 aerosol inhaler Shortness Of Breath Or Wheezing epinephrine 0.3 mg/0.3 mL 0.3 mg IM DIRECTED PRN Allergic 08/22/18 01/21/23 injection, auto-injector (EpiPen) Reaction cholecalciferol (vitamin D3) 25 2,000 unit PO QAM 08/19/19 01/21/23 mcg (1,000 unit) capsule (Vitamin D3) cyanocobalamin (vitamin B-12) 1,000 mcg PO 2XWK 12/19/20 01/21/23 1,000 mcg tablet (Vitamin B-12) ascorbic acid (vitamin C) 1,000 mg 1 g PO DAILY 06/11/22 01/21/23 tablet (Vitamin C) budesonide 0.25 mg/2 mL suspension 0.5 mg inhalation BID 06/11/22 01/21/23 for nebulization buspirone 15 mg tablet 7.5 mg PO HS 06/11/22 01/21/23 ipratropium 0.5 mg-albuterol 3 mg 3 ml NEB QID PRN Shortness Of 06/11/22 01/21/23 (2.5 mg base)/3 mL nebulization Breath Or Wheezing soln lactobacillus combination no.4 3 3 mmu cells PO 4XWK 06/11/22 01/21/23 billion cell capsule (Probiotic) lanolin alcohols-mineral 1 applic topical DAILY PRN Dry Skin 06/11/22 01/21/23 oil-w.petrolatum-ceresin topical cream (Eucerin topical cream) potassium chloride 20 mEq 10 meq PO DAILY 06/11/22 01/21/23 tablet,extended release azithromycin 250 mg tablet 250 mg PO 3XWK 06/12/22 01/21/23 diltiazem HCl 240 mg 240 mg PO DAILY 06/12/22 01/21/23 capsule,extended release 24 hr (Cardizem CD) roflumilast 500 mcg tablet 500 mcg PO DAILY 06/12/22 01/21/23 (Daliresp) guaifenesin 600 mg tablet, 1,200 mg PO BID 08/26/22 01/21/23 extended release 12 hr (Mucinex) aspirin 81 mg tablet,delayed 81 mg PO DAILY 01/21/23 01/21/23 release carboxymethylcellulose 0.5 1 drp OPB HS 01/21/23 01/21/23 %-glycerin 0.9 % eye drops (Lubricant Eye (cmc-glycerin)) diphenhydramine HCl 25 mg capsule 25 mg PO TID PRN ITCHING/CONGESTION 01/21/23 01/21/23 (Benadryl) emollient combination no.92 1 applic topical BID PRN Dry Skin 01/21/23 01/21/23 (Lubriderm Daily Moisture lotion) food supplemt, lactose-reduced 1 ea PO DAILY 01/21/23 01/21/23 (Ensure oral liquid) hydrocortisone 1 % lotion 1 applic topical BID PRN ITCHINESS 01/21/23 01/21/23 loperamide 2 mg tablet 2 mg PO BID PRN Diarrhea 01/21/23 01/21/23 sodium chloride 0.9 % for 2.5 ml inhalation BID 01/21/23 01/21/23 nebulization Previous Rx's Medication Instructions Recorded umeclidinium 62.5 mcg/actuation 1 inh inhalation DAILY 30 days #30 09/26/21 blister powder for inhalation ea (Incruse Ellipta) acetylcysteine 100 mg/mL (10 %) 2 ml inhalation BID #100 mL 10/10/21 solution formoterol fumarate 20 mcg/2 mL 20 mcg (2 mL) NEB BID 30 days #120 12/25/21 solution for nebulization mL (Perforomist) Results & Data (ED) Vital Signs Vital Signs - 24 hr 01/21/23 14:44 01/21/23 14:50 01/21/23 14:42 Temperature 36.5 C Temperature Source Temporal Artery Scan Pulse Rate 87 88 Pulse Rate [Apical] Pulse Rate from SpO2 Sensor Pulse Rhythm Regular Pulse Strength Normal Respiratory Rate 24 Respiratory Effort / Characteristics Short of Breath SOB on Exertion Respiratory Depth Normal Blood Pressure 128/58 L Blood Pressure Mean 81 Pulse Oximetry 100 100 Oxygen Delivery Method Oxymask Oxymask Oxygen Flow Rate 10 10 Sepsis Recent Fever Within 48 Hours No Sepsis New/Unexplained Change in Mental Status No Sepsis Action Taken by Nursing No Action Required Oxygen Flow Rate - Titration Pulse Oximetry Post Tiitration 01/21/23 16:25 01/21/23 14:43 01/21/23 15:00 Temperature Temperature Source Pulse Rate 88 86 Pulse Rate [Apical] Pulse Rate from SpO2 Sensor 88 86 Pulse Rhythm Pulse Strength Respiratory Rate 19 22 Respiratory Effort / Characteristics Respiratory Depth Blood Pressure 133/62 Blood Pressure Mean 85 Pulse Oximetry 78 L 100 100 Oxygen Delivery Method Nasal Cannula Oxymask Oxygen Flow Rate 6 10 Sepsis Recent Fever Within 48 Hours Sepsis New/Unexplained Change in Mental Status Sepsis Action Taken by Nursing Oxygen Flow Rate - Titration 8 Pulse Oximetry Post Tiitration 94 01/21/23 15:30 01/21/23 15:31 01/21/23 15:31 Temperature Temperature Source Pulse Rate 81 83 Pulse Rate [Apical] Pulse Rate from SpO2 Sensor 81 84 Pulse Rhythm Pulse Strength Respiratory Rate 17 22 Respiratory Effort / Characteristics Respiratory Depth Blood Pressure 131/46 L Blood Pressure Mean 74 Pulse Oximetry 95 97 91 Oxygen Delivery Method Oxymask Oxymask Nasal Cannula Oxygen Flow Rate 10 10 6 Sepsis Recent Fever Within 48 Hours Sepsis New/Unexplained Change in Mental Status Sepsis Action Taken by Nursing Oxygen Flow Rate - Titration Pulse Oximetry Post Tiitration 01/21/23 16:14 01/21/23 16:14 01/21/23 18:44 Temperature Temperature Source Pulse Rate 94 H 74 Pulse Rate [Apical] Pulse Rate from SpO2 Sensor 92 H Pulse Rhythm Pulse Strength Respiratory Rate 23 Respiratory Effort / Characteristics Respiratory Depth Blood Pressure 126/66 Blood Pressure Mean 86 Pulse Oximetry 88 L 72 L Oxygen Delivery Method Nasal Cannula Nasal Cannula Oxygen Flow Rate 6 6 Sepsis Recent Fever Within 48 Hours Sepsis New/Unexplained Change in Mental Status Sepsis Action Taken by Nursing Oxygen Flow Rate - Titration Pulse Oximetry Post Tiitration 01/21/23 20:10 01/21/23 16:30 01/21/23 16:30 Temperature Temperature Source Pulse Rate 84 Pulse Rate [Apical] 75 Pulse Rate from SpO2 Sensor 84 Pulse Rhythm Pulse Strength Respiratory Rate 21 22 Respiratory Effort / Characteristics Non-Labored Spontaneous Respiratory Depth Blood Pressure 127/61 Blood Pressure Mean 83 Pulse Oximetry 91 95 Oxygen Delivery Method Oxymask Oxymask Oxygen Flow Rate 8 8 Sepsis Recent Fever Within 48 Hours Sepsis New/Unexplained Change in Mental Status Sepsis Action Taken by Nursing Oxygen Flow Rate - Titration Pulse Oximetry Post Tiitration 01/21/23 17:00 01/21/23 17:30 01/21/23 18:00 Temperature Temperature Source Pulse Rate 81 81 78 Pulse Rate [Apical] Pulse Rate from SpO2 Sensor 81 81 78 Pulse Rhythm Pulse Strength Respiratory Rate 22 21 21 Respiratory Effort / Characteristics Respiratory Depth Blood Pressure Blood Pressure Mean Pulse Oximetry 93 91 91 Oxygen Delivery Method Oxymask Oxymask Oxymask Oxygen Flow Rate 8 8 8 Sepsis Recent Fever Within 48 Hours Sepsis New/Unexplained Change in Mental Status Sepsis Action Taken by Nursing Oxygen Flow Rate - Titration Pulse Oximetry Post Tiitration 01/21/23 18:30 01/21/23 19:00 01/21/23 19:30 Temperature Temperature Source Pulse Rate 77 76 81 Pulse Rate [Apical] Pulse Rate from SpO2 Sensor 77 77 84 Pulse Rhythm Pulse Strength Respiratory Rate 21 19 24 Respiratory Effort / Characteristics Respiratory Depth Blood Pressure Blood Pressure Mean Pulse Oximetry 90 92 92 Oxygen Delivery Method Oxymask Oxygen Flow Rate 8 Sepsis Recent Fever Within 48 Hours Sepsis New/Unexplained Change in Mental Status Sepsis Action Taken by Nursing Oxygen Flow Rate - Titration Pulse Oximetry Post Tiitration 01/21/23 20:00 01/21/23 20:30 01/21/23 21:00 Temperature Temperature Source Pulse Rate 75 74 74 Pulse Rate [Apical] Pulse Rate from SpO2 Sensor 75 74 76 Pulse Rhythm Pulse Strength Respiratory Rate 20 21 26 H Respiratory Effort / Characteristics Respiratory Depth Blood Pressure 138/91 Blood Pressure Mean 106 Pulse Oximetry 92 94 94 Oxygen Delivery Method Oxymask Oxymask Oxymask Oxygen Flow Rate 8 8 8 Sepsis Recent Fever Within 48 Hours Sepsis New/Unexplained Change in Mental Status Sepsis Action Taken by Nursing Oxygen Flow Rate - Titration Pulse Oximetry Post Tiitration 01/21/23 21:30 01/21/23 22:00 Temperature Temperature Source Pulse Rate 77 84 Pulse Rate [Apical] Pulse Rate from SpO2 Sensor 79 84 Pulse Rhythm Pulse Strength Respiratory Rate 19 19 Respiratory Effort / Characteristics Respiratory Depth Blood Pressure 145/81 H Blood Pressure Mean 102 Pulse Oximetry 93 91 Oxygen Delivery Method Oxygen Flow Rate Sepsis Recent Fever Within 48 Hours Sepsis New/Unexplained Change in Mental Status Sepsis Action Taken by Nursing Oxygen Flow Rate - Titration Pulse Oximetry Post Tiitration Laboratory Data 01/21/23 14:40 01/21/23 14:40 Lab Results 01/21/23 01/21/23 01/21/23 Range/Units 14:40 14:40 14:40 WBC 14.83 H (4.8-10.8) K/ul RBC 3.61 L (4.70-6.10) M/uL Hgb 9.8 L (14.0-18.0) g/dl Hct 32.6 L (42.0-52.0) % MCV 90.3 (80.0-100.0) fL MCH 27.1 (25.0-34.0) pg MCHC 30.1 L (32.0-36.0) g/dL RDW Std Deviation 47.3 H (36.4-46.3) fL RDW Coeff of Ren 14.3 (11.5-14.5) % Plt Count 219 (130-400) K/uL MPV 10.6 (9.4-12.4) fL Immature Gran % (Auto) 0.4 % Neut % (Auto) 77.1 % Lymph % (Auto) 13.6 % [place] % (Auto) 6.4 % Eos % (Auto) 2.0 % Baso % (Auto) 0.5 % Neut # (Auto) 11.43 H (1.40-6.50) K/uL Lymph # (Auto) 2.02 (1.2-3.4) K/uL [place] # (Auto) 0.95 H (0.11-0.59) K/uL Eos # (Auto) 0.29 (0-0.50) K/uL Baso # (Auto) 0.08 (0-0.2) K/uL Immature Gran # (Auto) 0.06 (0.01-0.20) K/uL Sodium 140 (136-145) mmol/L Potassium 3.5 (3.5-5.1) mmol/L Chloride 97 L (98-107) mmol/L Carbon Dioxide 32 (21-32) mmol/L Anion Gap 11 (3-11) BUN 13 (6-23) mg/dl Creatinine 1.01 (0.6-1.4) mg/dl Est Cr Clr Drug Dosing 73.9 ml/min Est GFR ( Amer) 85.7 ml/min Est GFR (Non-Af Amer) 74.0 ml/min BUN/Creatinine Ratio 12.9 (10-20) Glucose 144 H (70-99(Fasting)) mg/dl Calcium 9.3 (8.6-10.3) mg/dl Magnesium 1.8 (1.7-2.4) mg/dl Total Bilirubin 0.4 (0.2-1.0) mg/dl AST 16 (13-39) U/L ALT 9 (7-52) U/L Alkaline Phosphatase 79 (34-104) U/L Troponin I High Sens 14.0 (0-20) pg/ml B-Natriuretic Peptide 124 H (0-100) pg/ml Total Protein 7.4 (6.0-8.3) gm/dl Albumin 4.0 (3.4-5.0) gm/dl Globulin 3.4 (2.5-4.0) gm/dl Albumin/Globulin Ratio 1.2 (0.9-2) Procalcitonin (0-0.5) ng/ml Adenovirus (PCR) (NotDetected) B. pertussis DNA (PCR) (NotDetected) B.parapertussis DNA PCR (NotDetected) C. pneumoniae DNA (PCR) (NotDetected) Coronavirus OC43 (PCR) (NotDetected) Coronavirus HKU1 (PCR) (NotDetected) Coronavirus 229E (PCR) (NotDetected) SARS-CoV-2 (PCR) (NotDetected) Coronavirus NL63 (PCR) (NotDetected) Human Metapneumovir PCR (NotDetected) Influenza Type A (PCR) (NotDetected) Influenza Type B (PCR) (NotDetected) M. pneumoniae (PCR) (NotDetected) Parainfluenza 1 (PCR) (NotDetected) Parainfluenza 2 (PCR) (NotDetected) Parainfluenza 3 (PCR) (NotDetected) Parainfluenza 4 (PCR) (NotDetected) RSV (PCR) (NotDetected) Entero/Rhino (PCR) (NotDetected) 01/21/23 01/21/23 01/21/23 Range/Units 16:46 16:46 18:08 WBC (4.8-10.8) K/ul RBC (4.70-6.10) M/uL Hgb (14.0-18.0) g/dl Hct (42.0-52.0) % MCV (80.0-100.0) fL MCH (25.0-34.0) pg MCHC (32.0-36.0) g/dL RDW Std Deviation (36.4-46.3) fL RDW Coeff of Ren (11.5-14.5) % Plt Count (130-400) K/uL MPV (9.4-12.4) fL Immature Gran % (Auto) % Neut % (Auto) % Lymph % (Auto) % [place] % (Auto) % Eos % (Auto) % Baso % (Auto) % Neut # (Auto) (1.40-6.50) K/uL Lymph # (Auto) (1.2-3.4) K/uL [place] # (Auto) (0.11-0.59) K/uL Eos # (Auto) (0-0.50) K/uL Baso # (Auto) (0-0.2) K/uL Immature Gran # (Auto) (0.01-0.20) K/uL Sodium (136-145) mmol/L Potassium (3.5-5.1) mmol/L Chloride (98-107) mmol/L Carbon Dioxide (21-32) mmol/L Anion Gap (3-11) BUN (6-23) mg/dl Creatinine (0.6-1.4) mg/dl Est Cr Clr Drug Dosing ml/min Est GFR ( Amer) ml/min Est GFR (Non-Af Amer) ml/min BUN/Creatinine Ratio (10-20) Glucose (70-99(Fasting)) mg/dl Calcium (8.6-10.3) mg/dl Magnesium (1.7-2.4) mg/dl Total Bilirubin (0.2-1.0) mg/dl AST (13-39) U/L ALT (7-52) U/L Alkaline Phosphatase (34-104) U/L Troponin I High Sens 12.3 (0-20) pg/ml B-Natriuretic Peptide (0-100) pg/ml Total Protein (6.0-8.3) gm/dl Albumin (3.4-5.0) gm/dl Globulin (2.5-4.0) gm/dl Albumin/Globulin Ratio (0.9-2) Procalcitonin < 0.05 (0-0.5) ng/ml Adenovirus (PCR) Not Detected (NotDetected) B. pertussis DNA (PCR) Not Detected (NotDetected) B.parapertussis DNA PCR Not Detected (NotDetected) C. pneumoniae DNA (PCR) Not Detected (NotDetected) Coronavirus OC43 (PCR) Not Detected (NotDetected) Coronavirus HKU1 (PCR) Not Detected (NotDetected) Coronavirus 229E (PCR) Not Detected (NotDetected) SARS-CoV-2 (PCR) Not Detected (NotDetected) Coronavirus NL63 (PCR) Not Detected (NotDetected) Human Metapneumovir PCR Not Detected (NotDetected) Influenza Type A (PCR) Not Detected (NotDetected) Influenza Type B (PCR) Not Detected (NotDetected) M. pneumoniae (PCR) Not Detected (NotDetected) Parainfluenza 1 (PCR) Not Detected (NotDetected) Parainfluenza 2 (PCR) Not Detected (NotDetected) Parainfluenza 3 (PCR) Not Detected (NotDetected) Parainfluenza 4 (PCR) Not Detected (NotDetected) RSV (PCR) Not Detected (NotDetected) Entero/Rhino (PCR) DETECTED A* (NotDetected) Administered Medications Heparin Sodium (Porcine) (Heparin Sod 5,000 Unit/0.5 Ml Vial) 5,000 units SQ Q12 PEARL Stop: 02/20/23 20:59 Last Admin: 01/21/23 22:10 Dose: 5,000 units Documented By: KMO Sodium Chloride (Sodium Chlor 7% 4 Ml Neb) 4 ml NEB BIDR PEARL Stop: 02/20/23 18:59 Last Admin: 01/21/23 20:09 Dose: 4 ml Documented By: HMJuan Discontinued Medications Albuterol (Albut/Ipratrop 3mg/0.5mg Neb 3 Ml Vial) 3 ml NEB NOW STA; Protocol Stop: 01/21/23 14:57 Last Admin: 01/21/23 15:21 Dose: 3 ml Documented By: EUGENE Cefepime HCl (Maxipime) 2,000 mg in 20 mls @ 5 mls/min IV NOW STA; Protocol Stop: 01/21/23 16:30 Last Admin: 01/21/23 16:38 Dose: 5 mls/min Documented By: ARS Ioversol (Ioversol 350 Mg 125ml Prefilled Syringe) 118 ml IV ONCE ONE Stop: 01/21/23 16:02 Last Admin: 01/21/23 16:01 Dose: 118 ml Documented By: YAQUELIN Methylprednisolone (Methylprednisolone 40 Mg/Ml Vial) Confirm Administered Dose 40 mg .ROUTE .STK-MED ONE Stop: 01/21/23 20:04 Last Admin: 01/21/23 22:10 Dose: 40 mg Documented By: ROMA Morphine Sulfate (Morphine Sulfate 4 Mg/Ml 1 Ml Carp\Vial) 4 mg IV NOW STA Stop: 01/21/23 14:57 Last Admin: 01/21/23 15:20 Dose: 4 mg Documented By: EUGENE Morphine Sulfate (Morphine Sulfate 2 Mg/Ml Carp) 2 mg IV NOW STA Stop: 01/21/23 16:57 Last Admin: 01/21/23 18:03 Dose: 2 mg Documented By: EUGENE Imaging Data Radiologist's Impression: Chest X-Ray 01/21/23 14:10 XR chest 1V portable HISTORY: Dyspnea COMPARISON: Chest 09/30/2022. FINDINGS: No pneumothorax or no pleural effusions. The cardiac silhouette remains stable in size. Emphysema again noted. Interstitial thickening within the mid to lower lung zones has improved. This likely represents a resolving pneumonitis. No new focal lung consolidations to suggest a pneumonia. No evidence for pulmonary edema. A 1 cm nodular density within the right upper lobe is likely artifact. This will be better assessed on the same day chest CT. IMPRESSION: 1. Improved interstitial thickening within the lung bases. This likely repres ents a resolving pneumonitis. 2. No new focal lung consolidations identified. 3. Emphysema again noted. 4. A 1 cm nodular density within the right upper lobe is likely artifact. This will be better assessed on the same day chest CT. ACT 112: Negative or not required by law. Electronically signed by: Martin Perez M.D. 01/21/2023 4:02 PM Chest CTA 01/21/23 15:40 CT angio chest PE protocol CLINICAL HISTORY: Hypoxia, right chest pain, hx of pna and COPD TECHNIQUE: Multidetector row helical CT of the chest was performed with angiog raphic protocol. Coronal and sagittal reformations were obtained. Coronal and sagittal MIPS were obtained from the axial data set and were submitted for review. Automated dose lowering techniques and/or adjustment according to patient size were utilized for this exam. CT DOSE: 675.64 mGy.cm Comparison: Comparison is made to CT chest 06/11/2022 FINDINGS: Lungs and pleura: Diffuse centrilobular emphysema is seen most prominent in the upper lobes. No evidence of consolidation. There is a 9 mm nodule in the right upper lobe (series 4 image 152) and a 4 mm nodule in the left upper lobe (image 145). Heart and pericardium: Heart size is normal. No pericardial effusion. Vessels: The pulmonary trunk is enlarged measuring 41 mm in diameter. No pulmonary embolus is seen. Mediastinum and master: Subcentimeter lymph nodes are seen. Chest wall and lower neck: Unremarkable. Abdomen: Unremarkable. Bones: Degenerative changes in the thoracic spine. IMPRESSION: 1. Unremarkable evaluation of the chest. 2. Stable emphysema and pulmonary hypertension. 3. Stable pulmonary nodules. ACT 112: Negative or not required by law. Electronically signed by: Rosendo Dejesus M.D. 01/21/2023 4:23 PM Discharge Plan Visit Data Chief Complaint: Shortness of Breath/Dyspnea Stated Complaint: SHORTNESS OF BREATH, CHEST PAIN ED Provider: Sanjeev Andino Discharge Problem: Chest pain, COPD (chronic obstructive pulmonary disease) with emphysema, SOB (shortness of breath) Forms Stand Alone Forms: My [facility] [employer] Prescriptions Prescriptions: No Action formoterol fumarate [Perforomist] 20 mcg/2 mL solution for nebulization 20 mcg NEB BID 30 Days Qty: 120 5RF acetylcysteine 100 mg/mL (10 %) solution 2 ml inhalation BID Qty: 100 3RF Rx Instructions: mix with nss albuterol sulfate 90 mcg/actuation Hfa Aerosol Inhaler 2 puff INHALATION Q6H PRN (Reason: Shortness Of Breath Or Wheezing) Rx Instructions: rescue inh sertraline 100 mg Tablet 200 mg PO HS trazodone 150 mg Tablet 150 mg PO HS omeprazole 20 mg Capsule,Delayed Release(Dr/Ec) 20 mg PO BID epinephrine [EpiPen] 0.3 mg/0.3 mL Auto-Injector 0.3 mg IM DIRECTED PRN (Reason: Allergic Reaction) cholecalciferol (vitamin D3) [Vitamin D3] 25 mcg (1,000 unit) Capsule 2,000 unit PO QAM cyanocobalamin (vitamin B-12) [Vitamin B-12] 1,000 mcg Tablet 1,000 mcg PO 2XWK Rx Instructions: TAKE ON MON & FRI. Incruse Ellipta 62.5 mcg/actuation Blister With Device 1 inh inhalation DAILY 30 Days Qty: 30 2RF budesonide 0.25 mg/2 mL Suspension For Nebulization 0.5 mg INHALATION BID Rx Instructions: unknown srtength buspirone 15 mg Tablet 7.5 mg PO HS ascorbic acid (vitamin C) [Vitamin C] 1,000 mg Tablet 1 g PO DAILY Eucerin Cream 1 applic TOPICAL DAILY PRN (Reason: Dry Skin) Rx Instructions: before bed Probiotic 3 billion cell Capsule 3 mmu cells PO 4XWK Rx Instructions: TAKES SUN, TUES, THURS, & SAT. administer with a meal potassium chloride 20 mEq Tablet Extended Release 10 meq PO DAILY ipratropium-albuterol 0.5 mg-3 mg(2.5 mg base)/3 mL solution for nebulization 3 ml NEB QID PRN (Reason: Shortness Of Breath Or Wheezing) Rx Instructions: also q4h prn for sob/wheezing azithromycin 250 mg Tablet 250 mg PO 3XWK Hold Instructions: Resume on 10/10/22. Rx Instructions: TAKE THIS MED EVERY MON/WED/FRI diltiazem HCl [Cardizem CD] 240 mg Capsule,Extended Release 24hr 240 mg PO DAILY roflumilast [Daliresp] 500 mcg Tablet 500 mcg PO DAILY guaifenesin [Mucinex] 600 mg Tablet Extended Release 12hr 1,200 mg PO BID hydrocortisone 1 % Lotion 1 applic TOPICAL BID PRN (Reason: ITCHINESS) loperamide 2 mg Tablet 2 mg PO BID PRN (Reason: Diarrhea) aspirin 81 mg Tablet,Delayed Release (Dr/Ec) 81 mg PO DAILY diphenhydramine HCl [Benadryl] 25 mg Capsule 25 mg PO TID PRN (Reason: ITCHING/CONGESTION) sodium chloride 0.9 % Solution For Nebulization 2.5 ml INHALATION BID Rx Instructions: USE WITH ACETYLCYSTEINE Ensure Liquid 1 ea PO DAILY Lubricant Eye (cmc-glycerin) 0.5-0.9 % Drops 1 drp OPB HS Lubriderm Daily Moisture Lotion 1 applic TOPICAL BID PRN (Reason: Dry Skin) Referrals Referrals: Valencia Patel PA-C [Outside Practitioners] -
[2023-01-21] MEDS ORDERED: MoRPHine SULFATE 4 MG/ML 1 ML CARP\\VIAL IV STA (14:56)
[2023-01-21] MEDS ORDERED: ALBUT/IPRATROP 3MG/0.5MG NEB 3 ML VIAL NEB STA (14:56)
[2023-01-21 14:57] LABS: Basophils # (auto) 0.08 K/uL (0-0.2); Basophils % (auto) 0.5 %; Eosinophils # (auto) 0.29 K/uL (0-0.50); Hematocrit (blood only) 32.6 % (42.0-52.0); Hemoglobin 9.8 g/dl (14.0-18.0); Immature Granulocytes # (auto) 0.06 K/uL (0.01-0.20); Immature Granulocytes % (auto) 0.4 %; Lymphocytes # (auto) 2.02 K/uL (1.2-3.4); Lymphocytes % (auto) 13.6 %; Mean Corpuscular Hemoglobin 27.1 pg (25.0-34.0); Mean Corpuscular Hgb Conc 30.1 g/dL (32.0-36.0); Mean Corpuscular Volume 90.3 fL (80.0-100.0); Mean Platelet Volume 10.6 fL (9.4-12.4); Monocytes # (auto) 0.95 K/uL (0.11-0.59); Monocytes % (auto) 6.4 %; Neutrophils # (auto) 11.43 K/uL (1.40-6.50); Neutrophils % (auto) 77.1 %; Platelet Count 219 K/uL (130-400); RDW Coefficient of Variation 14.3 % (11.5-14.5); RDW Standard Deviation 47.3 fL (36.4-46.3); Red Blood Count 3.61 M/uL (4.70-6.10); White Blood Count 14.83 K/ul (4.8-10.8)
[2023-01-21 15:14] LABS: Albumin Globulin Ratio 1.2 (0.9-2); BUN Creatinine Ratio 12.9 (10-20); Bilirubin,Total 0.4 mg/dl (0.2-1.0); Calcium 9.3 mg/dl (8.6-10.3); Creatinine Clr Calc Pharmacy 73.9 ml/min; Est GFR (African American) 85.7 ml/min; Globulin 3.4 gm/dl (2.5-4.0); Magnesium 1.8 mg/dl (1.7-2.4); Potassium 3.5 mmol/L (3.5-5.1); Total Protein 7.4 gm/dl (6.0-8.3)
[2023-01-21] MEDS ORDERED: IOVERSOL 350 MG 125mL Prefilled Syringe IV ONE (16:01)
--- NOTE | 2023-01-21 16:03 | XRay Report ---
XR chest 1V portable HISTORY: Dyspnea COMPARISON: Chest 09/30/2022. FINDINGS: No pneumothorax or no pleural effusions. The cardiac silhouette remains stable in size. Emp hysema again noted. Interstitial thickening within the mid to lower lung zones has improved. This lik shaila represents a resolving pneumonitis. No new focal lung consolidations to suggest a pneumonia. No e vidence for pulmonary edema. A 1 cm nodular density within the right upper lobe is likely artifact. T his will be better assessed on the same day chest CT. IMPRESSION: 1. Improved interstitial thickening within the lung bases. This likely represents a resolving pneumon itis. 2. No new focal lung consolidations identified. 3. Emphysema again noted. 4. A 1 cm nodular density within the right upper lobe is likely artifact. This will be better assesse d on the same day chest CT. ACT 112: Negative or not required by law. Electronically signed by: Martin Perez M.D. 01/21/2023 4:02 PM
--- NOTE | 2023-01-21 16:24 | CT Scan Report ---
CT angio chest PE protocol CLINICAL HISTORY: Hypoxia, right chest pain, hx of pna and COPD TECHNIQUE: Multidetector row helical CT of the chest was performed with angiographic protocol. Candelaria l and sagittal reformations were obtained. Coronal and sagittal MIPS were obtained from the axial manuel a set and were submitted for review. Automated dose lowering techniques and/or adjustment according to patient size were utilized for this exam. CT DOSE: 675.64 mGy.cm Comparison: Comparison is made to CT chest 06/11/2022 FINDINGS: Lungs and pleura: Diffuse centrilobular emphysema is seen most prominent in the upper lobes. No evide nce of consolidation. There is a 9 mm nodule in the right upper lobe (series 4 image 152) and a 4 mm nodule in the left upper lobe (image 145). Heart and pericardium: Heart size is normal. No pericardial effusion. Vessels: The pulmonary trunk is enlarged measuring 41 mm in diameter. No pulmonary embolus is seen. Mediastinum and master: Subcentimeter lymph nodes are seen. Chest wall and lower neck: Unremarkable. Abdomen: Unremarkable. Bones: Degenerative changes in the thoracic spine. IMPRESSION: 1. Unremarkable evaluation of the chest. 2. Stable emphysema and pulmonary hypertension. 3. Stable pulmonary nodules. ACT 112: Negative or not required by law. Electronically signed by: Rosendo Dejesus M.D. 01/21/2023 4:23 PM
[2023-01-21] MEDS ORDERED: CEFEPIME 2,000 MG/20 ML VIAL IV STA (16:27)
[2023-01-21] MEDS ORDERED: MoRPHine SULFATE 2 MG/ML CARP IV STA (16:56)
[2023-01-21] MEDS ORDERED: POLYETHYLENE (MIRALAX) 17 GM PACK PO PRN (17:55)
[2023-01-21] MEDS ORDERED: NITROGLYCERIN SL 0.4 MG/TAB TAB SL PRN (17:55)
[2023-01-21] MEDS ORDERED: ALUMINUM/MAGNESIUM SUSP 30 ML UDC PO PRN (17:55)
[2023-01-21] MEDS ORDERED: MoRPHine SULFATE 2 MG/ML CARP IV PRN (17:55)
--- NOTE | 2023-01-21 18:11 | History & Physical Report ---
Date of Service January 21, 2023 Assessment & Plan (1) COPD exacerbation: Plan Acute on chronic respiratory failure: Acute exacerbation of COPD Leucocytosis: likely 2/2 acute resp distress, will get procal. 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 Follows with [facility]. Admitting CXR and CTA chest reviewed, no concern of PE. Admitting troponin negative and EKG with no new acute ST or T changes. We will trend troponin. Continue as needed and scheduled nebs, continue home inhalers. Continue with Mucomyst and hypertonic saline. Continue with home Roflumilast and azithromycin MWF. Patient is allergic to prednisone, will use Solu-Medrol Pulmonology consult in this advanced COPD patient with COPD exacerbation Await admitting blood culture, send respiratory BioFire and COVID test c/w solu medrol, cefepime started in the ED. Other chronic medical conditions: HTN, PTSD, depression, anxiety, chronic anemia, cirrhosis --- continue with/resume home meds as and when able. Disposition: PCP: Dr. Patel with [facility] Code Status: Full Code VTE Prophyalxis: Heparin SQ PT/OT, CM to assist with DC planning. History of Present Illness Chief Complaint: Worsening shortness of breath, dyspnea on exertion Primary Care Provider: [facility] 72-year-old male with PMH of COPD on chronic 6 L of oxygen, cirrhosis, HTN, PTSD, depression with anxiety, tobacco abuse, anemia presented to the ED 01/21 with complaint of SPO2 dropping down to 35% at home per patient. 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 Denies fever or chills. Patient does report worsening shortness of breath with exertion and chest tightness today prior to arrival. Patient denies any acute changes in his bowel or bladder habits. Patient denies any headache or dizziness. Patient denies any radiation of his chest discomfort, is unaware of any relieving factors for his chest discomfort. Patient reports he quit smoking 7 years ago, denies use of alcohol or drugs. Medications were reviewed with the patient. Plan of care discussed with the patient. DNR/DNI Allergies Allergy/AdvReac Type Severity Reaction Status Date / Time bee venom protein (honey bee) Allergy Severe ANAPHYLAXIS Verified 01/21/23 16:51 amoxicillin Allergy Intermediate FACIAL Verified 01/21/23 16:51 SWELLING (EYES SWELLED SHUT) clavulanic acid Allergy Intermediate FACIAL Verified 01/21/23 16:51 SWELLING (EYES SWELLED SHUT) pneumococcal vaccine Allergy Intermediate SWELLING Verified 01/21/23 16:51 Zaxbquf-RVP-CkA Reductase Allergy Intermediate CPK'S GO Verified 01/21/23 16:51 Inhibitor THROUGH [Boljzqw-Xad-Njp Reductase ROOF Inhibitor] prednisone AdvReac Intermediate confusion Verified 01/21/23 16:51 and agitation Home Medications Medication Instructions Recorded Confirmed Type omeprazole 20 mg capsule,delayed 20 mg PO BID 04/08/18 01/21/23 History release sertraline 100 mg tablet 200 mg PO HS 04/08/18 01/21/23 History trazodone 150 mg tablet 150 mg PO HS 04/08/18 01/21/23 History albuterol sulfate 90 mcg/actuation 2 puff inhalation Q6H PRN 07/04/18 01/21/23 History aerosol inhaler Shortness Of Breath Or Wheezing epinephrine 0.3 mg/0.3 mL 0.3 mg IM DIRECTED PRN Allergic 08/22/18 01/21/23 History injection, auto-injector (EpiPen) Reaction cholecalciferol (vitamin D3) 25 2,000 unit PO QAM 08/19/19 01/21/23 History mcg (1,000 unit) capsule (Vitamin D3) cyanocobalamin (vitamin B-12) 1,000 mcg PO 2XWK 12/19/20 01/21/23 History 1,000 mcg tablet (Vitamin B-12) umeclidinium 62.5 mcg/actuation 1 inh inhalation DAILY 30 days #30 09/26/21 01/21/23 Rx blister powder for inhalation ea (Incruse Ellipta) acetylcysteine 100 mg/mL (10 %) 2 ml inhalation BID #100 mL 10/10/21 01/21/23 Rx solution formoterol fumarate 20 mcg/2 mL 20 mcg (2 mL) NEB BID 30 days #120 12/25/21 01/21/23 Rx solution for nebulization mL (Perforomist) ascorbic acid (vitamin C) 1,000 mg 1 g PO DAILY 06/11/22 01/21/23 History tablet (Vitamin C) budesonide 0.25 mg/2 mL suspension 0.5 mg inhalation BID 06/11/22 01/21/23 History for nebulization buspirone 15 mg tablet 7.5 mg PO HS 06/11/22 01/21/23 History ipratropium 0.5 mg-albuterol 3 mg 3 ml NEB QID PRN Shortness Of 06/11/22 01/21/23 History (2.5 mg base)/3 mL nebulization Breath Or Wheezing soln lactobacillus combination no.4 3 3 mmu cells PO 4XWK 06/11/22 01/21/23 History billion cell capsule (Probiotic) lanolin alcohols-mineral 1 applic topical DAILY PRN Dry Skin 06/11/22 01/21/23 History oil-w.petrolatum-ceresin topical cream (Eucerin topical cream) potassium chloride 20 mEq 10 meq PO DAILY 06/11/22 01/21/23 History tablet,extended release azithromycin 250 mg tablet 250 mg PO 3XWK 06/12/22 01/21/23 History diltiazem HCl 240 mg 240 mg PO DAILY 06/12/22 01/21/23 History capsule,extended release 24 hr (Cardizem CD) roflumilast 500 mcg tablet 500 mcg PO DAILY 06/12/22 01/21/23 History (Daliresp) guaifenesin 600 mg tablet, 1,200 mg PO BID 08/26/22 01/21/23 History extended release 12 hr (Mucinex) aspirin 81 mg tablet,delayed 81 mg PO DAILY 01/21/23 01/21/23 History release carboxymethylcellulose 0.5 1 drp OPB HS 01/21/23 01/21/23 History %-glycerin 0.9 % eye drops (Lubricant Eye (cmc-glycerin)) diphenhydramine HCl 25 mg capsule 25 mg PO TID PRN ITCHING/CONGESTION 01/21/23 01/21/23 History (Benadryl) emollient combination no.92 1 applic topical BID PRN Dry Skin 01/21/23 01/21/23 History (Lubriderm Daily Moisture lotion) food supplemt, lactose-reduced 1 ea PO DAILY 01/21/23 01/21/23 History (Ensure oral liquid) hydrocortisone 1 % lotion 1 applic topical BID PRN ITCHINESS 01/21/23 01/21/23 History loperamide 2 mg tablet 2 mg PO BID PRN Diarrhea 01/21/23 01/21/23 History sodium chloride 0.9 % for 2.5 ml inhalation BID 01/21/23 01/21/23 History nebulization Past Med/Surg History Medical History (Updated 01/21/23 @ 14:19 by Sanjeev Andino MD) Anemia Anxiety Chronic dyspnea Chronic respiratory failure with hypoxia Cirrhosis of liver COPD (chronic obstructive pulmonary disease) with emphysema Depression End stage COPD GERD (gastroesophageal reflux disease) Hearing deficit [place] 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 [place] exposure History of COVID-19 05/2020 - hospitalized at [facility] - sob, cough, generalized weakness --> pneumonia; still requiring more supplemental oxygen since having Covid (currently on 6 lpm cont home o2, prior to covid was only on 4 lpm) History of kidney stones History of tobacco abuse HTN (hypertension) Observed seizure-like activity On home O2 cont @ 6 lpm Osteoarthritis PTSD (post-traumatic stress disorder) Pulmonary nodules Thrombocytopenia Surgical History Dilatation of ureter H/O hernia repair History of appendectomy History of cardiac cath x 2 - most recent [place] 2010 - no stents; [place] [facility] [place] History of colonoscopy History of extraction of renal calculus History of tonsillectomy Loss of teeth due to extraction S/P arthroscopic surgery of right knee Family History Mother Colon cancer Father FH: kidney cancer Other Cancer Social History Smoking Status: Former smoker Tobacco Type: Cigarettes Cigarettes Per Day: 40 pack year hx; Second Hand Exposure: No; Do You Dip or Chew Tobacco: No; Hx Alcohol Use: Yes Alcohol type: hard liquor Hx Substance Use: No Preferred Language: Lao Communication Ability: Effective 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 Physical Exam Physical Exam: GENERAL: Alert and oriented x3. NAD, on 8L O2 via OM. Appears chroincal ly ill/frail/older than stated age. NENANA HEENT: No pal michelle, no icterus. Pupils equal, roun d and reactive to light. Oral mucos a moist. NECK: No JVD, no neck mass es. HEART: S1 and S2 heard. Regula r rate and rhythm. No murmur, no ga llop. RESPIRATORY SYSTEM: Normal AP diameter. + acce ssory muscle use. + wheezing, no cr ackles. decreased breath sounds. ABD OMEN: Soft, bowel sounds present, n ontender, no diste ntion. CENTRAL NER VOUS SYSTEM: No f acial droop. Spee ch is clear. Obey s simple commands. Moves extremitie s. EXTREMITIES: N o edema, no erythe ma seen. Results & Data Results & Data Vital Signs (Past 12 Hours) Vital Signs Temp Pulse Resp BP Pulse Ox O2 Del Method O2 Flow Rate 01/21/23 16:14 94 H 23 72 L Nasal Cannula 01/21/23 16:14 126/66 88 L Nasal Cannula 01/21/23 15:31 131/46 L 91 Nasal Cannula 01/21/23 15:31 83 22 97 Oxymask 01/21/23 15:30 81 17 95 Oxymask 01/21/23 15:00 86 22 133/62 100 Oxymask 01/21/23 14:43 88 19 100 01/21/23 16:25 78 L Nasal Cannula 01/21/23 14:42 88 01/21/23 14:50 100 Oxymask 10 01/21/23 14:44 36.5 C 87 24 128/58 L 100 Oxymask 10
[2023-01-21 19:55] LABS: Adenovirus PCR Not Detected (NotDetected); Bordetella parapertussis PCR Not Detected (NotDetected); Bordetella pertussis PCR Not Detected (NotDetected); Chlamydia pneumoniae PCR Not Detected (NotDetected); Coronavirus 229E PCR Not Detected (NotDetected); Coronavirus CoV-2 (COVID19)PCR Not Detected (NotDetected); Coronavirus HKU1 PCR Not Detected (NotDetected); Coronavirus NL63 PCR Not Detected (NotDetected); Coronavirus OC43PCR Not Detected (NotDetected); Human Metapneumovirus PCR Not Detected (NotDetected); Influenza A PCR Not Detected (NotDetected); Influenza B PCR Not Detected (NotDetected); Mycoplasma pneumoniae PCR Not Detected (NotDetected); Parainfluenza Virus 1 PCR Not Detected (NotDetected); Parainfluenza Virus 2 PCR Not Detected (NotDetected); Parainfluenza Virus 3 PCR Not Detected (NotDetected); Parainfluenza Virus 4 PCR Not Detected (NotDetected); Respiratory Syncytial VirusPCR Not Detected (NotDetected)
[2023-01-21] MEDS: SODIUM CHLOR 7% 4 ML NEB NEB SCH (20:09)
[2023-01-21 20:30] LABS: Rhinovirus/Enterovirus PCR DETECTED (NotDetected)
[2023-01-21] MEDS: HEPARIN SOD 5,000 UNIT/0.5 ML VIAL SQ SCH (22:10)
[2023-01-21] MEDS ORDERED: diphenhydrAMINE Capsule 25 MG CAP PO PRN (22:58)
[2023-01-21] MEDS ORDERED: ALBUTEROL HFA 8 GM INHALER INH PRN (22:58)
[2023-01-21] MEDS ORDERED: NON-FORMULARY MEDICATION (Emollient Combination No.92 [Lubriderm Daily Moisture] Lotion) TOP PRN (22:58)
[2023-01-21] MEDS ORDERED: HYDROCORTISONE 1% CRM 30 GM TUBE EXT PRN (23:19)
[2023-01-21] MEDS ORDERED: LOPERAMIDE HCL 2 MG CAP PO PRN (23:19)
[2023-01-21] MEDS: ALBUT/IPRATROP 3MG/0.5MG NEB 3 ML VIAL NEB SCH (23:29)
[2023-01-21] MEDS: FORMOTEROL 20 MCG/2 ML VIAL NEB SCH (23:29)
[2023-01-21] MEDS: ACETYLCYSTEINE 10% INHAL SOLN 4 ML **DISPENSED BY RESP. INH SCH (23:29)
[2023-01-21] MEDS ORDERED: EUCERIN CR 120 GM JAR TOP PRN (23:29)
[2023-01-21] MEDS: BUDESONIDE 0.5 MG/2 ML VIAL (PULMICORT) INH SCH (23:29)
[2023-01-21] MEDS ORDERED: traMADol HCL 50 MG TABLET PO PRN (23:47)
[2023-01-21 23:49] LABS: Appearance Urine Turbid (Clear); Bacteria Urine Automated Negative (Negative); Bilirubin Urine Negative (Negative); Blood Urine 2+ (Negative); Color Urine Yellow; Epithelial Cell Urine Auto >30 /lpf (0-5); Glucose Urine UA Negative (Negative); Ketones Urine Negative (Negative); Leukocyte Esterase Urine 2+ (Negative); Nitrite Urine Negative (Negative); Protein Urine 1+ (Negative); Specific Gravity Urine > 1.045 (1.000-1.030); Urobilinogen Urine Negative (Negative); WBC Urine Automated >30 /hpf (0-5); pH Urine 5.5 (4.5-7.5)
[2023-01-21] MEDS: ACETAMINOPHEN 325 MG TAB PO PRN (23:51)
[2023-01-22] MEDS: SERTRALINE HCL 100 MG TABLET PO SCH ×2 (00:06→20:46)
[2023-01-22] MEDS: guaiFENesin 600 MG TABCR PO SCH ×3 (00:06→20:47)
[2023-01-22] MEDS: busPIRone 7.5 MG TAB PO SCH ×2 (00:06→20:46)
[2023-01-22] MEDS: traZODone HCL 50 MG TAB PO SCH ×2 (00:06→20:47)
[2023-01-22] MEDS: PANTOprazole 40 MG TAB PO SCH ×3 (00:07→20:47)
[2023-01-22] MEDS: ARTIFICIAL TEARS OP SCH ×2 (00:08→20:45)
[2023-01-22] MEDS: MoRPHine SULFATE 2 MG/ML CARP IV PRN ×3 (00:18→13:43)
[2023-01-22] MEDS: CEFEPIME 2,000 MG in SYRINGE 0 ML IV SCH ×3 (02:19→17:47)
[2023-01-22] MEDS: methylPREDNISolone 40 MG in SYRINGE 0 ML IV SCH ×3 (06:06→20:48)
[2023-01-22] MEDS: BUDESONIDE 0.5 MG/2 ML VIAL (PULMICORT) INH SCH ×2 (07:17→19:17)
[2023-01-22] MEDS: FORMOTEROL 20 MCG/2 ML VIAL NEB SCH ×2 (07:17→19:16)
[2023-01-22] MEDS: ACETYLCYSTEINE 10% INHAL SOLN 4 ML **DISPENSED BY RESP. INH SCH ×2 (07:17→19:17)
[2023-01-22] MEDS: SODIUM CHLOR 7% 4 ML NEB NEB SCH ×2 (07:18→19:17)
[2023-01-22] MEDS: ALBUT/IPRATROP 3MG/0.5MG NEB 3 ML VIAL NEB SCH ×4 (07:18→19:18)
[2023-01-22 08:02] LABS: Hematocrit (blood only) 27.4 % (42.0-52.0); Hemoglobin 8.3 g/dl (14.0-18.0); Mean Corpuscular Hemoglobin 26.9 pg (25.0-34.0); Mean Corpuscular Hgb Conc 30.3 g/dL (32.0-36.0); Mean Platelet Volume 11.3 fL (9.4-12.4); Platelet Count 133 K/uL (130-400); RDW Coefficient of Variation 14.3 % (11.5-14.5); RDW Standard Deviation 46.1 fL (36.4-46.3); Red Blood Count 3.08 M/uL (4.70-6.10); White Blood Count 7.51 K/ul (4.8-10.8)
[2023-01-22 08:05] LABS: BUN Creatinine Ratio 17.4 (10-20); Calcium 9.4 mg/dl (8.6-10.3); Creatinine Clr Calc Pharmacy 74.9 ml/min; Est GFR (Non-African American) 82.8 ml/min; Magnesium 1.9 mg/dl (1.7-2.4); Phosphorus 2.6 mg/dl (2.5-4.9)
[2023-01-22] MEDS: ROFLUMILAST 500 MCG TAB PO SCH (08:14)
[2023-01-22] MEDS: UMECLIDINIUM BROMIDE 62.5MCG/BLISTER 7 PUFFS/INHALER INH SCH (08:14)
[2023-01-22] MEDS: POTASSIUM CHLORIDE 10 MEQ TABCR PO SCH (08:14)
[2023-01-22] MEDS: ASPIRIN 81 MG ECTAB PO SCH (08:15)
[2023-01-22] MEDS: CHOLECALCIFEROL 1,000 UNITS 25 MCG TAB PO SCH (08:15)
[2023-01-22] MEDS: HEPARIN SOD 5,000 UNIT/0.5 ML VIAL SQ SCH ×2 (08:15→20:46)
[2023-01-22] MEDS: dilTIAZem HCL 240 MG CAPCR PO SCH (08:15)
[2023-01-22] MEDS: ADVANCED PROBIOTIC 1250 MG CAPSULE PO SCH (08:15)
[2023-01-22] MEDS: ASCORBIC ACID 500 MG TAB PO SCH (08:15)
[2023-01-22] MEDS ORDERED: NON-FORMULARY MEDICATION (Food Supplemt, Lactose-Reduced [Ensure] Liquid) PO SCH (09:00)
--- NOTE | 2023-01-22 10:33 | Pulmonary Consultation ---
Date of Consultation January 22, 2023 Assessment & Plan (1) COPD exacerbation: (2) Acute on chronic respiratory failure with hypoxia and hypercapnia: Plan IMPRESSION: 72-year-old male with end-stage COPD presenting in acute exacerbation in the setting of acute rhinovirus infection. RECOMMENDATIONS: 1. COPD with exacerbation -patient on maximized outpatient therapy at this point. We will continue with current nebulizer treatments and supplemental oxygen as you are. I did turn him down to his baseline 6 L which she is tolerating well. Would aim for goal saturations of 88 to 92%. Can de-escalate antibiotic therapies. Can continue with his scheduled azithromycin Saturday/Sat/Saturday. Patient is not bronchospastic on exam. Would start to decrease his steroid therapy if tolerated. Continue with BiPAP at night as previously ordered. Overall, the patient clinically appears well and is trending the right direction. 2. Acute on chronic hypoxic respiratory failure -in the setting of acute rhinovirus infection. Continue with supportive care. Continue with outpatient treatments as described above. 3. Question of RIGHT middle lobe nodularity. This was not appreciated on prior images. Will review this with my attending. Thank you for allowing us to participate in the care of this patient. Patient remains on maximal therapy at this time. No pulmonary interventions necessary at this point. Supervising Physician Co-Signing Physician Notes Patient seen and examined. EMR reviewed. Discussed with [facility] and agree with assessment plan as noted. The patient appears to be back to his pulmonary baseline. His oxygen requirement is that is at his baseline as well. He is not wheezing coughing or expectorating phlegm. He appears to be breathing comfortably and playing games on his phone. He is pending an evaluation at [facility] for potential bronchoscopic lung volume reduction. Would recommend rapid transition to oral steroids, continued bronchodilators, out of bed to chair as tolerated and ambulation as tolerated and if the patient does well he can likely be dismissed from the hospital with outpatient pulmonary follow-up. History of Present Illness Reason for Consultation: COPD Requesting Physician: Dr. Reilly Attending Physician: Fidel Reilly MD History of Present Illness Patient is a 72-year-old male with a significant past medical history of end- stage COPD, hypertension, history of tobacco abuse, oxygen dependence, and multiple frequent admissions for COPD. Patient follows with our clinic for his COPD. He is currently treated with maximal therapy including Incruse Ellipta, albuterol nebulizers, Perforomist, budesonide, albuterol inhalers, Mucomyst, and Daliresp. He is also on supplemental oxygen daily and utilizes BiPAP at night. During last office visit in April 2022, discussion with family regarding palliative care conversations. Patient has previously declined lung transplant evaluation. He was seen in the pulmonary clinic in follow-up after recent hospitalization and had referral for interventional pulmonology. The patient reports that he has had this approved and wishes to follow-up with [facility]. He can do this in the outpatient setting. Additionally, he underwent pulmonary function testing which demonstrates persistence of his severe COPD with significantly reduced DLCO. He developed a cough and upper respiratory symptoms at the end of last week and has had significant shortness of breath with severe hypoxia with any exertion which prompted his visit to the emergency department. Upon evaluation, the patient was noted to develop hypoxia with any movement. He has had ongoing nonproductive cough and nasal congestion. He states his symptoms have improved since admission. He feels better at this time. Allergies Allergy/AdvReac Type Severity Reaction Status Date / Time bee venom protein (honey bee) Allergy Severe ANAPHYLAXIS Verified 01/21/23 16:51 amoxicillin Allergy Intermediate FACIAL Verified 01/21/23 16:51 SWELLING (EYES SWELLED SHUT) clavulanic acid Allergy Intermediate FACIAL Verified 01/21/23 16:51 SWELLING (EYES SWELLED SHUT) pneumococcal vaccine Allergy Intermediate SWELLING Verified 01/21/23 16:51 Nyomrne-KYT-DsV Reductase Allergy Intermediate CPK'S GO Verified 01/21/23 16:51 Inhibitor THROUGH [Wmwidbr-Cwy-Npu Reductase ROOF Inhibitor] prednisone AdvReac Intermediate confusion Verified 01/21/23 16:51 and agitation Home Medications Medication Instructions Recorded Confirmed Type omeprazole 20 mg capsule,delayed 20 mg PO BID 04/08/18 01/21/23 History release sertraline 100 mg tablet 200 mg PO HS 04/08/18 01/21/23 History trazodone 150 mg tablet 150 mg PO HS 04/08/18 01/21/23 History albuterol sulfate 90 mcg/actuation 2 puff inhalation Q6H PRN 07/04/18 01/21/23 History aerosol inhaler Shortness Of Breath Or Wheezing epinephrine 0.3 mg/0.3 mL 0.3 mg IM DIRECTED PRN Allergic 08/22/18 01/21/23 History injection, auto-injector (EpiPen) Reaction cholecalciferol (vitamin D3) 25 2,000 unit PO QAM 08/19/19 01/21/23 History mcg (1,000 unit) capsule (Vitamin D3) cyanocobalamin (vitamin B-12) 1,000 mcg PO 2XWK 12/19/20 01/21/23 History 1,000 mcg tablet (Vitamin B-12) umeclidinium 62.5 mcg/actuation 1 inh inhalation DAILY 30 days #30 09/26/21 01/21/23 Rx blister powder for inhalation ea (Incruse Ellipta) acetylcysteine 100 mg/mL (10 %) 2 ml inhalation BID #100 mL 10/10/21 01/21/23 Rx solution formoterol fumarate 20 mcg/2 mL 20 mcg (2 mL) NEB BID 30 days #120 12/25/21 01/21/23 Rx solution for nebulization mL (Perforomist) ascorbic acid (vitamin C) 1,000 mg 1 g PO DAILY 06/11/22 01/21/23 History tablet (Vitamin C) budesonide 0.25 mg/2 mL suspension 0.5 mg inhalation BID 06/11/22 01/21/23 History for nebulization buspirone 15 mg tablet 7.5 mg PO HS 06/11/22 01/21/23 History ipratropium 0.5 mg-albuterol 3 mg 3 ml NEB QID PRN Shortness Of 06/11/22 01/21/23 History (2.5 mg base)/3 mL nebulization Breath Or Wheezing soln lactobacillus combination no.4 3 3 mmu cells PO 4XWK 06/11/22 01/21/23 History billion cell capsule (Probiotic) lanolin alcohols-mineral 1 applic topical DAILY PRN Dry Skin 06/11/22 01/21/23 History oil-w.petrolatum-ceresin topical cream (Eucerin topical cream) potassium chloride 20 mEq 10 meq PO DAILY 06/11/22 01/21/23 History tablet,extended release azithromycin 250 mg tablet 250 mg PO 3XWK 06/12/22 01/21/23 History diltiazem HCl 240 mg 240 mg PO DAILY 06/12/22 01/21/23 History capsule,extended release 24 hr (Cardizem CD) roflumilast 500 mcg tablet 500 mcg PO DAILY 06/12/22 01/21/23 History (Daliresp) guaifenesin 600 mg tablet, 1,200 mg PO BID 08/26/22 01/21/23 History extended release 12 hr (Mucinex) aspirin 81 mg tablet,delayed 81 mg PO DAILY 01/21/23 01/21/23 History release carboxymethylcellulose 0.5 1 drp OPB HS 01/21/23 01/21/23 History %-glycerin 0.9 % eye drops (Lubricant Eye (cmc-glycerin)) diphenhydramine HCl 25 mg capsule 25 mg PO TID PRN ITCHING/CONGESTION 01/21/23 01/21/23 History (Benadryl) emollient combination no.92 1 applic topical BID PRN Dry Skin 01/21/23 01/21/23 History (Lubriderm Daily Moisture lotion) food supplemt, lactose-reduced 1 ea PO DAILY 01/21/23 01/21/23 History (Ensure oral liquid) hydrocortisone 1 % lotion 1 applic topical BID PRN ITCHINESS 01/21/23 01/21/23 History loperamide 2 mg tablet 2 mg PO BID PRN Diarrhea 01/21/23 01/21/23 History sodium chloride 0.9 % for 2.5 ml inhalation BID 01/21/23 01/21/23 History nebulization Patient History Medical History (Updated 01/21/23 @ 14:19 by Sanjeev Andino MD) Anemia Anxiety Chronic dyspnea Chronic respiratory failure with hypoxia Cirrhosis of liver COPD (chronic obstructive pulmonary disease) with emphysema Depression End stage COPD GERD (gastroesophageal reflux disease) Hearing deficit [place] 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 Rowan exposure History of COVID-19 05/2020 - hospitalized at [facility] - sob, cough, generalized weakness --> pneumonia; still requiring more supplemental oxygen since having Covid (currently on 6 lpm cont home o2, prior to covid was only on 4 lpm) History of kidney stones History of tobacco abuse HTN (hypertension) Observed seizure-like activity On home O2 cont @ 6 lpm Osteoarthritis PTSD (post-traumatic stress disorder) Pulmonary nodules Thrombocytopenia Surgical History Dilatation of ureter H/O hernia repair History of appendectomy History of cardiac cath x 2 - most recent [place] 2010 - no stents; also cath years prior at [facility] and no stents History of colonoscopy History of extraction of renal calculus History of tonsillectomy Loss of teeth due to extraction S/P arthroscopic surgery of right knee Family History Mother Colon cancer Father FH: kidney cancer Other Cancer Social History Smoking Status: Former smoker Tobacco Type: Cigarettes Cigarettes Per Day: 40 pack year hx; Second Hand Exposure: No; Do You Dip or Chew Tobacco: No; Tobacco Cessation Education Requested by Patient: No Hx Alcohol Use: No Hx Substance Use: No Preferred Language: Finnish Communication Ability: Effective Inspector Penetrant Required: No Beliefs That Will Affect Care: None marital status: Current Living Situation: Spouse Current Living Situation Comment: home being treated for bed bugs 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 All else were negative. Physical Exam Physical Exam: VITAL SIGNS - Vital signs and nursing notes were reviewed. GENERAL - 72-year-old male appearing his stated age who is in no acute distress. Communicates well with provider and answers questions appropriately. LUNGS - Chest wall evaluation demonstrates increased chest wall A:P diameter. Auscultation reveals decreased air entry with slight inspiratory wheeze. CARDIAC - RRR with S1/S2. No murmur, rubs, or gallops appreciated. ABDOMEN - Abdominal inspection demonstrates a flat abdomen. BS normoactive all four quadrants. No tenderness, palpable masses, or ascites noted. PSYCH - A&Ox3 and cooperates fully with examiner. Pt is very pleasant and interacts well with examiner. Results & Data Results & Data Vital Signs (Past 12 Hours) Vital Signs Temp Pulse Pulse Resp BP BP Pulse Ox 01/22/23 07:39 68 01/22/23 07:39 01/22/23 07:22 75 16 95 01/22/23 06:57 36.8 C 71 19 128/72 95 01/22/23 02:22 36.9 C 82 18 127/72 91 01/21/23 23:00 01/21/23 23:00 88 01/21/23 23:00 36.6 C 73 18 130/74 90 01/21/23 22:31 O2 Del Method O2 Flow Rate 01/22/23 07:39 01/22/23 07:39 High Flow Nasal Cannula 8 01/22/23 07:22 Nasal Cannula 8 01/22/23 06:57 Nasal Cannula 8 01/22/23 02:22 High Flow Nasal Cannula 8 01/21/23 23:00 Oxymask 8 01/21/23 23:00 01/21/23 23:00 Nasal Cannula 8 01/21/23 22:31 Oxymask 8 PG Care Time/CCT Total # of Minutes Spent Total Time Spent with Patient: Total time spent is greater than 50% in coordination of care (as documented) at patient's floor/unit and/or counseling patient: Coding Level of Care Code 71479 IN/OBS CONSULT LVL 4,60M Diagnoses COPD exacerbation J44.1 Acute on chronic respiratory failure with hypoxia and hypercapnia J96.21; J96.22
[2023-01-22 14:18] LABS: Hematocrit (blood only) 27.8 % (42.0-52.0); Hemoglobin 8.5 g/dl (14.0-18.0)
--- NOTE | 2023-01-22 14:26 | Hospitalist Progress Note ---
Date of Service January 22, 2023 Assessment & Plan (1) COPD exacerbation: Plan Acute on chronic respiratory failure: Acute exacerbation of COPD Leucocytosis: likely 2/2 acute resp distress, procalcitonin negative. Entero-/rhinovirus respiratory infection: BioFire positive for the same. Symptomatic management. 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 [facility]. Admitting CXR and CTA chest reviewed, no concern of PE. Troponin trends negative, and admitting and follow-up EKG with no new acute ST or T changes. Continue as needed and scheduled nebs, continue home inhalers. Continue with Mucomyst and hypertonic saline. Continue with home Roflumilast and azithromycin MWF. Patient is allergic to prednisone, will use Solu-Medrol -->> went on Solu-Medrol as tolerated Pulmonology consult in this advanced COPD patient with COPD exacerbation, appreciate recommendation c/w solu medrol, cefepime started in the ED. await admitting blood cultures Other chronic medical conditions: HTN, PTSD, depression, anxiety, chronic anemia, cirrhosis --- continue with/resume home meds as and when able. Disposition: P[facility]: [facility] Code Status: Full Code VTE Prophyalxis: Heparin SQ PT/OT, CM to assist with DC planning. Admission and Anticipated Discharge Date Admission Date: January 21, 2023 Subjective Patient seen and examined at bedside as a follow-up of acute exacerbation of COPD likely secondary to entero-/rhinovirus infection. Patient was lying in bed, on 8 L oxygen via nasal cannula, reports feeling better, reports making whitish mucus with the cough now, denied chest pain in the morning/later on had right-sided chest pain after bouts of coughing/EKG was repeated with no acute ST or T changes/stat troponin pending. Patient was again seen at the bedside for this right-sided chest pain. Patient reports improvement in his breathing. Reports eating okay and moving bowels okay. Physical Exam Physical Exam: GENERAL: Alert and oriented x3. NAD, on 8L O2 via nc. Appears chronical ly ill/frail/older than stated age. [place] HEENT: No pal michelle, no icterus. Pupils equal, roun d and reactive to light. Oral mucos a moist. NECK: No JVD, no neck mass es. HEART: S1 and S2 heard. Regula r rate and rhythm. No murmur, no ga llop. RESPIRATORY SYSTEM: Normal AP diameter. No acc essory muscle use. No wheezing, no crackles. decrease d breath sounds. A BDOMEN: Soft, bow el sounds present, nontender, no dis tention. CENTRAL N ERVOUS SYSTEM: No facial droop. Sp eech is clear. Ob eys simple command s. Moves extremit ies. EXTREMITIES: No edema, no eryt silvio seen. Results & Data Results & Data Vital Signs (Past 12 Hours) Vital Signs Temp Pulse Pulse Resp BP Pulse Ox O2 Del Method 01/22/23 13:32 117/69 01/22/23 11:48 80 18 92 Nasal Cannula 01/22/23 11:26 36.6 C 77 18 124/70 91 Nasal Cannula 01/22/23 07:39 68 01/22/23 07:39 High Flow Nasal Cannula 01/22/23 07:22 75 16 95 Nasal Cannula 01/22/23 06:57 36.8 C 71 19 128/72 95 Nasal Cannula 01/22/23 02:22 36.9 C 82 18 127/72 91 High Flow Nasal Cannula O2 Flow Rate 01/22/23 13:32 01/22/23 11:48 6 01/22/23 11:26 7 01/22/23 07:39 01/22/23 07:39 8 01/22/23 07:22 8 01/22/23 06:57 8 01/22/23 02:22 8
--- NOTE | 2023-01-22 15:52 | Electrocardiogram Report ---
Test Reason : Blood Pressure : / mmHG Vent. Rate : 083 BPM Atrial Rate : 083 BPM P-R Int : 164 ms QRS Dur : 068 ms QT Int : 354 ms P-R-T Axes : 048 002 044 degrees QTc Int : 415 ms Normal sinus rhythm Normal ECG When compared with ECG of 21-JAN-2023 14:32, (unconfirmed) No significant change was found Confirmed by Reinaldo Wan ([id number]) on 01/22/2023 3:52:13 PM Referred By: REFERRED SELF Confirmed By:Reinaldo Wan
--- NOTE | 2023-01-22 15:55 | Electrocardiogram Report ---
Test Reason : Blood Pressure : / mmHG Vent. Rate : 099 BPM Atrial Rate : 099 BPM P-R Int : 134 ms QRS Dur : 070 ms QT Int : 344 ms P-R-T Axes : 049 -09 055 degrees QTc Int : 441 ms Normal sinus rhythm Normal ECG When compared with ECG of 02-OCT-2022 05:51, No significant change was found Confirmed by Reinaldo Wan ([id number]) on 01/22/2023 3:55:18 PM Referred By: REFERRED SELF Confirmed By:Reinaldo Wan
--- NOTE | 2023-01-22 16:03 | Electrocardiogram Report ---
Test Reason : Blood Pressure : / mmHG Vent. Rate : 064 BPM Atrial Rate : 064 BPM P-R Int : 164 ms QRS Dur : 072 ms QT Int : 424 ms P-R-T Axes : 058 001 050 degrees QTc Int : 437 ms Normal sinus rhythm Normal ECG When compared with ECG of 22-JAN-2023 00:04, (unconfirmed) No significant change was found Confirmed by Reinaldo Wan ([id number]) on 01/22/2023 4:03:12 PM Referred By: REFERRED SELF Confirmed By:Reinaldo Wan
[2023-01-22] MEDS: ACETAMINOPHEN 325 MG TAB PO PRN (20:45)
[2023-01-23] MEDS: CEFEPIME 2,000 MG in SYRINGE 0 ML IV SCH ×2 (02:20→10:15)
[2023-01-23] MEDS: ACETYLCYSTEINE 10% INHAL SOLN 4 ML **DISPENSED BY RESP. INH SCH ×2 (06:57→19:27)
[2023-01-23] MEDS: FORMOTEROL 20 MCG/2 ML VIAL NEB SCH ×2 (06:57→19:27)
[2023-01-23] MEDS: SODIUM CHLOR 7% 4 ML NEB NEB SCH ×3 (06:58→19:57)
[2023-01-23] MEDS: ALBUT/IPRATROP 3MG/0.5MG NEB 3 ML VIAL NEB SCH ×4 (06:58→19:27)
[2023-01-23] MEDS: BUDESONIDE 0.5 MG/2 ML VIAL (PULMICORT) INH SCH ×2 (06:58→19:27)
[2023-01-23] MEDS: ROFLUMILAST 500 MCG TAB PO SCH (08:29)
[2023-01-23] MEDS: PANTOprazole 40 MG TAB PO SCH ×2 (08:29→20:22)
[2023-01-23] MEDS: POTASSIUM CHLORIDE 10 MEQ TABCR PO SCH (08:29)
[2023-01-23] MEDS: HEPARIN SOD 5,000 UNIT/0.5 ML VIAL SQ SCH ×2 (08:30→20:21)
[2023-01-23] MEDS: AZITHROMYCIN 250 MG TAB PO SCH (08:30)
[2023-01-23] MEDS: ASPIRIN 81 MG ECTAB PO SCH (08:30)
[2023-01-23] MEDS: methylPREDNISolone 40 MG in SYRINGE 0 ML IV SCH (08:30)
[2023-01-23] MEDS: dilTIAZem HCL 240 MG CAPCR PO SCH (08:30)
[2023-01-23] MEDS: CHOLECALCIFEROL 1,000 UNITS 25 MCG TAB PO SCH (08:30)
[2023-01-23] MEDS: guaiFENesin 600 MG TABCR PO SCH ×2 (08:30→20:23)
[2023-01-23] MEDS: ASCORBIC ACID 500 MG TAB PO SCH (08:30)
[2023-01-23] MEDS: UMECLIDINIUM BROMIDE 62.5MCG/BLISTER 7 PUFFS/INHALER INH SCH (08:31)
[2023-01-23] MEDS ORDERED: AZITHROMYCIN 250 MG TAB PO SCH (09:00)
--- NOTE | 2023-01-23 09:43 | Pulmonology Progress Note ---
Date of Service January 23, 2023 Assessment & Plan (1) COPD exacerbation: (2) Acute on chronic respiratory failure with hypoxia and hypercapnia: Plan IMPRESSION: 72-year-old male with end-stage COPD presenting in acute exacerbation in the setting of acute rhinovirus infection. RECOMMENDATIONS: 1. COPD with exacerbation - Patient on maximized outpatient therapy at this point. We will continue with current nebulizer treatments and supplemental oxygen as you are. Would aim for goal saturations of 88 to 92%. Can de-escalate antibiotic therapies. Can continue with his scheduled azithromycin Saturday/Saturday/Saturday. Patient is not bronchospastic on exam. Would start to decrease his steroid therapy if tolerated. Continue with BiPAP at night as previously ordered. Overall, the patient clinically appears well and is trending the right direction. 2. Acute on chronic hypoxic respiratory failure -in the setting of acute rhinovirus infection. Continue with supportive care. Continue with outpatient treatments as described above. 3. RIGHT Upper Lobe Nodule - New 9 mm RUL nodule when compared to prior CT imaging studies of the chest. Would recommend follow-up CT in 3 months in the outpatient setting. Thank you for allowing us to participate in the care of this patient. Patient remains on maximal therapy at this time. No pulmonary interventions necessary at this point. Admission and Anticipated Discharge Date Admission Date: January 21, 2023 Supervising Physician Co-Signing Physician Notes Patient seen and examined. EMR reviewed. He appears to be back to his baseline. Recommended dismissal from the hospital with outpatient pulmonary follow-up. Complete 5-day course of prednisone and azithromycin. Feel free to contact us with questions or concerns. He can follow-up with Dr. Abel Subjective Patient was seen and evaluated at bedside today. He continues to appear well and is in good spirits. Reports that his breathing is improved. Offers no complaints today. Review of Systems Review of Systems: Unchanged from prior unchanged from prior Physical Exam Physical Exam: VITAL SIGNS - Vital signs and nursing notes were reviewed. GENERAL - 72-year-old male appearing his stated age who is in no acute distress. Communicates well with provider and answers questions appropriately. LUNGS - Chest wall evaluation demonstrates increased chest wall A:P diameter. Auscultation reveals decreased air entry with slight inspiratory wheeze. CARDIAC - RRR with S1/S2. No murmur, rubs, or gallops appreciated. ABDOMEN - Abdominal inspection demonstrates a flat abdomen. BS normoactive all four quadrants. No tenderness, palpable masses, or ascites noted. PSYCH - A&Ox3 and cooperates fully with examiner. Pt is very pleasant and interacts well with examiner. Results & Data Results & Data Vital Signs (Past 12 Hours) Vital Signs Temp Pulse Pulse Resp BP Pulse Ox O2 Del Method 01/23/23 08:00 Nasal Cannula, High Flow Nasal Cannula 01/23/23 08:13 37 C 83 20 149/99 H 92 High Flow Nasal Cannula 01/23/23 07:04 75 01/23/23 07:00 79 18 94 Nasal Cannula 01/23/23 02:23 36.7 C 90 18 130/74 90 High Flow Nasal Cannula 01/22/23 23:00 36.8 C 100 H 20 123/69 93 Nasal Cannula 01/22/23 22:49 98 H O2 Flow Rate 01/23/23 08:00 8 01/23/23 08:13 8 01/23/23 07:04 01/23/23 07:00 8 01/23/23 02:23 8 01/22/23 23:00 01/22/23 22:49 PG Care Time/CCT Total # of Minutes Spent Total Time Spent with Patient: Total time spent is greater than 50% in coordination of care (as documented) at patient's floor/unit and/or counseling patient: Coding Level of Care Code 16116 SUB INP/OBS CARE 2/35MIN Diagnoses COPD exacerbation J44.1 Acute on chronic respiratory failure with hypoxia and hypercapnia J96.21; J96.22
[2023-01-23 09:51] LABS: Hematocrit (blood only) 28.1 % (42.0-52.0); Hemoglobin 8.5 g/dl (14.0-18.0); Mean Corpuscular Hemoglobin 26.2 pg (25.0-34.0); Mean Corpuscular Hgb Conc 30.2 g/dL (32.0-36.0); Mean Corpuscular Volume 86.7 fL (80.0-100.0); Mean Platelet Volume 10.9 fL (9.4-12.4); Platelet Count 162 K/uL (130-400); RDW Coefficient of Variation 14.6 % (11.5-14.5); RDW Standard Deviation 45.9 fL (36.4-46.3); Red Blood Count 3.24 M/uL (4.70-6.10); White Blood Count 12.58 K/ul (4.8-10.8)
[2023-01-23 10:08] LABS: BUN Creatinine Ratio 25.3 (10-20); Calcium 9.5 mg/dl (8.6-10.3); Creatinine Clr Calc Pharmacy 75.8 ml/min; Est GFR (African American) 97.2 ml/min; Est GFR (Non-African American) 83.9 ml/min; Potassium 4.3 mmol/L (3.5-5.1)
--- NOTE | 2023-01-23 15:34 | Hospitalist Progress Note ---
Date of Service January 23, 2023 Assessment & Plan (1) COPD exacerbation: Plan Acute on chronic respiratory failure: Acute exacerbation of COPD Leucocytosis: likely 2/2 acute resp distress, procalcitonin negative. Entero-/rhinovirus respiratory infection: BioFire positive for the same. Symptomatic management. RUL nodule: 9 mm, [address] chest f/u. f/u pulm. 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 [facility]. Admitting CXR and CTA chest reviewed, no concern of PE. Troponin trends negative, and admitting and follow-up EKG with no new acute ST or T changes. Continue as needed and scheduled nebs, continue home inhalers. Continue with Mucomyst and hypertonic saline. Continue with home Roflumilast and azithromycin MWF. Patient is allergic to prednisone, will use Solu-Medrol -->> to p.o. methylprednisolone Pulmonology consult in this advanced COPD patient with COPD exacerbation, appreciate recommendation c/w solu medrol, cefepime started in the ED---- will discontinue. Other chronic medical conditions: HTN, PTSD, depression, anxiety, chronic anemia, cirrhosis --- continue with/resume home meds as and when able. Disposition: PCP: [facility] Code Status: Full Code VTE Prophyalxis: Heparin SQ PT/OT, CM to assist with DC planning. Admission and Anticipated Discharge Date Admission Date: January 21, 2023 Subjective Patient seen and examined at bedside as a follow-up of acute exacerbation of COPD likely secondary to entero-/rhinovirus infection. Patient was lying in bed, on 6 L oxygen via nasal cannula, reports feeling better, reports making whitish mucus with the cough, denies chest pain. Patient reports improvement in his breathing. Reports eating okay and moving bowels okay. Denies pain or burning with passing urine. Physical Exam Physical Exam: GENERAL: Alert and oriented x3. NAD, on 6L O2 via nc. Appears chronical ly ill/frail/older than stated age. [place] HEENT: No pal michelle, no icterus. Pupils equal, roun d and reactive to light. Oral mucos a moist. NECK: No JVD, no neck mass es. HEART: S1 and S2 heard. Regula r rate and rhythm. No murmur, no ga llop. RESPIRATORY SYSTEM: Normal AP diameter. No acc essory muscle use. No wheezing, no crackles. decrease d breath sounds. A BDOMEN: Soft, bow el sounds present, nontender, no dis tention. CENTRAL N ERVOUS SYSTEM: No facial droop. Sp eech is clear. Ob eys simple command s. Moves extremit ies. EXTREMITIES: No edema, no eryt silvio seen. Results & Data Results & Data Vital Signs (Past 12 Hours) Vital Signs Temp Pulse Pulse Resp BP Pulse Ox Pulse Ox 01/23/23 14:40 78 16 90 01/23/23 12:05 36.6 C 100 H 20 122/86 92 01/23/23 11:26 74 L 01/23/23 10:40 96 H 18 100 01/23/23 08:00 01/23/23 08:13 37 C 83 20 149/99 H 92 01/23/23 07:04 75 01/23/23 07:00 79 18 94 Pulse Ox O2 Del Method O2 Flow Rate O2 Flow Rate O2 Flow Rate 01/23/23 14:40 Nasal Cannula 6 01/23/23 12:05 High Flow Nasal Cannula 8 01/23/23 11:26 88 L 6 6 01/23/23 10:40 Nasal Cannula 6 01/23/23 08:00 Nasal Cannula, High Flow Nasal Cannula 8 01/23/23 08:13 High Flow Nasal Cannula 8 01/23/23 07:04 01/23/23 07:00 Nasal Cannula 8
--- NOTE | 2023-01-23 15:47 | Electrocardiogram Report ---
Test Reason : Blood Pressure : / mmHG Vent. Rate : 080 BPM Atrial Rate : 080 BPM P-R Int : 152 ms QRS Dur : 080 ms QT Int : 380 ms P-R-T Axes : 116 182 132 degrees QTc Int : 438 ms Suspect arm lead reversal, interpretation assumes no reversal Normal sinus rhythm Lateral infarct , age undetermined Abnormal ECG When compared with ECG of 22-JAN-2023 13:29, Premature atrial complexes are no longer Present Questionable change in QRS axis Lateral infarct is now Present T wave inversion now evident in Lateral leads Confirmed by Reinaldo Wan ([id number]) on 01/23/2023 3:46:38 PM Referred By: REFERRED SELF Confirmed By:Reinaldo Wan
[2023-01-23] MEDS: ARTIFICIAL TEARS OP SCH (20:21)
[2023-01-23] MEDS: busPIRone 7.5 MG TAB PO SCH (20:22)
[2023-01-23] MEDS: SERTRALINE HCL 100 MG TABLET PO SCH (20:22)
[2023-01-23] MEDS: traZODone HCL 50 MG TAB PO SCH (20:23)
[2023-01-24] MEDS: SODIUM CHLOR 7% 4 ML NEB NEB SCH ×2 (06:52→20:50)
[2023-01-24] MEDS: BUDESONIDE 0.5 MG/2 ML VIAL (PULMICORT) INH SCH ×2 (06:52→19:49)
[2023-01-24] MEDS: ALBUT/IPRATROP 3MG/0.5MG NEB 3 ML VIAL NEB SCH ×4 (06:52→19:50)
[2023-01-24] MEDS: FORMOTEROL 20 MCG/2 ML VIAL NEB SCH ×2 (06:52→19:49)
[2023-01-24] MEDS: ACETYLCYSTEINE 10% INHAL SOLN 4 ML **DISPENSED BY RESP. INH SCH ×2 (06:53→19:49)
[2023-01-24 08:49] LABS: Hemoglobin 8.6 g/dl (14.0-18.0); Mean Corpuscular Hemoglobin 26.8 pg (25.0-34.0); Mean Corpuscular Hgb Conc 30.7 g/dL (32.0-36.0); Mean Corpuscular Volume 87.2 fL (80.0-100.0); Mean Platelet Volume 10.5 fL (9.4-12.4); Platelet Count 143 K/uL (130-400); RDW Coefficient of Variation 14.6 % (11.5-14.5); RDW Standard Deviation 46.8 fL (36.4-46.3); Red Blood Count 3.21 M/uL (4.70-6.10); White Blood Count 11.48 K/ul (4.8-10.8)
[2023-01-24 09:06] LABS: BUN Creatinine Ratio 23.9 (10-20); Calcium 9.2 mg/dl (8.6-10.3); Creatinine Clr Calc Pharmacy 74.9 ml/min; Est GFR (Non-African American) 82.8 ml/min; Potassium 4.1 mmol/L (3.5-5.1)
[2023-01-24] MEDS: UMECLIDINIUM BROMIDE 62.5MCG/BLISTER 7 PUFFS/INHALER INH SCH (09:40)
[2023-01-24] MEDS: dilTIAZem HCL 240 MG CAPCR PO SCH (09:40)
[2023-01-24] MEDS: CHOLECALCIFEROL 1,000 UNITS 25 MCG TAB PO SCH (09:40)
[2023-01-24] MEDS: ADVANCED PROBIOTIC 1250 MG CAPSULE PO SCH (09:41)
[2023-01-24] MEDS: guaiFENesin 600 MG TABCR PO SCH ×2 (09:41→21:18)
[2023-01-24] MEDS: ASCORBIC ACID 500 MG TAB PO SCH (09:41)
[2023-01-24] MEDS: POTASSIUM CHLORIDE 10 MEQ TABCR PO SCH (09:41)
[2023-01-24] MEDS: PANTOprazole 40 MG TAB PO SCH ×2 (09:42→21:17)
[2023-01-24] MEDS: methylPREDNISolone 4 MG TAB PO SCH (09:42)
[2023-01-24] MEDS: ROFLUMILAST 500 MCG TAB PO SCH (09:42)
[2023-01-24] MEDS: ASPIRIN 81 MG ECTAB PO SCH (09:42)
[2023-01-24] MEDS: HEPARIN SOD 5,000 UNIT/0.5 ML VIAL SQ SCH ×2 (09:42→20:51)
--- NOTE | 2023-01-24 16:21 | Hospitalist Progress Note ---
Date of Service January 24, 2023 Assessment & Plan (1) COPD exacerbation: Plan Acute on chronic respiratory failure: Acute exacerbation of COPD Leucocytosis: likely 2/2 acute resp distress, procalcitonin negative. Entero-/rhinovirus respiratory infection: BioFire positive for the same. Symptomatic management. RUL nodule: 9 mm, [address] chest f/u. f/u pulm. 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 [facility]. Admitting CXR and CTA chest reviewed, no concern of PE. Troponin trends negative, and admitting and follow-up EKG with no new acute ST or T changes. Continue as needed and scheduled nebs, continue home inhalers. Continue with Mucomyst and hypertonic saline. Continue with home Roflumilast and azithromycin MWF. Patient is allergic to prednisone, will use Solu-Medrol -->> to p.o. methylprednisolone Pulmonology consult in this advanced COPD patient with COPD exacerbation, appreciate recommendation c/w solu medrol, cefepime started in the ED---- will discontinue. Other chronic medical conditions: HTN, PTSD, depression, anxiety, chronic anemia, cirrhosis --- continue with/resume home meds as and when able. Disposition: P[facility]: [facility] Code Status: Full Code VTE Prophyalxis: Heparin SQ PT/OT, CM to assist with DC planning. Admission and Anticipated Discharge Date Admission Date: January 21, 2023 Subjective Patient seen and examined at bedside as a follow-up of acute exacerbation of COPD likely secondary to entero-/rhinovirus infection. Patient was lying in bed, on 6 L oxygen via nasal cannula, reports feeling better, reports making whitish mucus with the cough, denies chest pain. Patient reports improvement in his breathing. Reports eating okay and moving bowels okay. Denies pain or burning with passing urine. PT/OT evaled, recommends Home w/ Home Health. Pt is maintaining at 6 L at rest which has been his baseline. Pulm has cleared him for DC. He is medically stable for DC. Patient feels he is not ready for discharge and would like to stay until Saturday until his "social issues" at home gets solved. CM has been notified that he is stable and at his baseline for discharge purposes. CM notified me that the patient's family wants a different MD on the case as they feel patient is not ready for discharge. Different MD will be replacing me tomorrow. Physical Exam Physical Exam: GENERAL: Alert and oriented x3. NAD, on 6L O2 via nc. Appears chronical ly ill/older than stated age. [place] HE ENT: No pallor, n o icterus. Pupils equal, round and reactive to light. Oral mucosa mois t. NECK: No JVD, no neck masses. HE ART: S1 and S2 he mariza. Regular rate and rhythm. No m urmur, no gallop. RESPIRATORY SYSTEM : Normal AP diame ter. No accessory muscle use. No w heezing, no crackl es. decreased mitesh th sounds. ABDOMEN : Soft, bowel anatoliy nds present, nonte nder, no distentio n. CENTRAL NERVOUS SYSTEM: No facia l droop. Speech i s clear. Obeys si mple commands. Mo ves extremities. E XTREMITIES: No ed rubén, no erythema s een. Results & Data Results & Data Vital Signs (Past 12 Hours) Vital Signs Temp Pulse Pulse Resp BP BP Pulse Ox 01/24/23 15:21 80 18 93 01/24/23 08:00 01/24/23 15:01 82 01/24/23 11:27 36.8 C 88 18 125/75 95 01/24/23 10:23 91 H 18 93 01/24/23 07:38 36.8 C 81 18 123/72 93 01/24/23 06:53 87 18 96 O2 Del Method O2 Flow Rate 01/24/23 15:21 Nasal Cannula 6 01/24/23 08:00 Nasal Cannula 01/24/23 15:01 01/24/23 11:27 Nasal Cannula 6 01/24/23 10:23 Nasal Cannula 6 01/24/23 07:38 Nasal Cannula 6 01/24/23 06:53 Nasal Cannula 6
[2023-01-24] MEDS: ARTIFICIAL TEARS OP SCH (20:51)
[2023-01-24] MEDS: busPIRone 7.5 MG TAB PO SCH (21:17)
[2023-01-24] MEDS: SERTRALINE HCL 100 MG TABLET PO SCH (21:17)
[2023-01-24] MEDS: traZODone HCL 50 MG TAB PO SCH (21:18)
[2023-01-25] MEDS: BUDESONIDE 0.5 MG/2 ML VIAL (PULMICORT) INH SCH ×2 (07:10→19:05)
[2023-01-25] MEDS: ALBUT/IPRATROP 3MG/0.5MG NEB 3 ML VIAL NEB SCH ×4 (07:10→19:05)
[2023-01-25] MEDS: FORMOTEROL 20 MCG/2 ML VIAL NEB SCH ×2 (07:10→19:04)
[2023-01-25] MEDS: SODIUM CHLOR 7% 4 ML NEB NEB SCH ×2 (07:36→19:05)
[2023-01-25] MEDS: ACETYLCYSTEINE 10% INHAL SOLN 4 ML **DISPENSED BY RESP. INH SCH ×2 (07:40→19:05)
[2023-01-25 09:16] LABS: Hematocrit (blood only) 29.8 % (42.0-52.0); Hemoglobin 9.1 g/dl (14.0-18.0); Mean Corpuscular Hemoglobin 26.8 pg (25.0-34.0); Mean Corpuscular Hgb Conc 30.5 g/dL (32.0-36.0); Mean Corpuscular Volume 87.6 fL (80.0-100.0); Mean Platelet Volume 11.2 fL (9.4-12.4); Platelet Count 163 K/uL (130-400); RDW Coefficient of Variation 14.7 % (11.5-14.5); RDW Standard Deviation 47.2 fL (36.4-46.3); White Blood Count 11.13 K/ul (4.8-10.8)
[2023-01-25 09:39] LABS: BUN Creatinine Ratio 23.2 (10-20); Calcium 9.3 mg/dl (8.6-10.3); Creatinine Clr Calc Pharmacy 72.6 ml/min; Est GFR (African American) 92.3 ml/min; Est GFR (Non-African American) 79.7 ml/min; Magnesium 2.2 mg/dl (1.7-2.4); Phosphorus 4.5 mg/dl (2.5-4.9); Potassium 4.7 mmol/L (3.5-5.1)
[2023-01-25] MEDS: HEPARIN SOD 5,000 UNIT/0.5 ML VIAL SQ SCH ×2 (09:45→20:31)
[2023-01-25] MEDS: CHOLECALCIFEROL 1,000 UNITS 25 MCG TAB PO SCH (09:45)
[2023-01-25] MEDS: methylPREDNISolone 4 MG TAB PO SCH (09:45)
[2023-01-25] MEDS: guaiFENesin 600 MG TABCR PO SCH ×2 (09:45→20:32)
[2023-01-25] MEDS: ROFLUMILAST 500 MCG TAB PO SCH (09:45)
[2023-01-25] MEDS: POTASSIUM CHLORIDE 10 MEQ TABCR PO SCH (09:45)
[2023-01-25] MEDS: PANTOprazole 40 MG TAB PO SCH ×2 (09:45→20:32)
[2023-01-25] MEDS: CYANOCOBALAMIN (B-12) 500 MCG TABLET PO SCH (09:46)
[2023-01-25] MEDS: dilTIAZem HCL 240 MG CAPCR PO SCH (09:46)
[2023-01-25] MEDS: UMECLIDINIUM BROMIDE 62.5MCG/BLISTER 7 PUFFS/INHALER INH SCH (09:46)
[2023-01-25] MEDS: AZITHROMYCIN 250 MG TAB PO SCH (09:46)
[2023-01-25] MEDS: ASPIRIN 81 MG ECTAB PO SCH (09:46)
[2023-01-25] MEDS: ASCORBIC ACID 500 MG TAB PO SCH (09:46)
--- NOTE | 2023-01-25 18:38 | Hospitalist Progress Note ---
Date of Service January 25, 2023 Assessment & Plan (1) COPD exacerbation: Plan Acute on chronic respiratory failure: Acute exacerbation of COPD Leucocytosis: 01/25-Stable currently. Extensive discussion today. Pt angry and frustrated, states he was not happy that he had to go through the process of being "washed in cold water" and having his new shoes destroyed. Was originally requesting to be transferred to [facility] [place] but later changed his mind, stating he just wants to be heard. Would like to be discharged on 01/28 as he states his house is being cleaned due to the bed bugs. PER PREVIOUS PROVIDER: likely 2/2 acute resp distress, procalcitonin negative. Entero-/rhinovirus respiratory infection: BioFire positive for the same. Symptomatic management. RUL nodule: 9 mm, [address] chest f/u. f/u pulm. 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 [facility]. Admitting CXR and CTA chest reviewed, no concern of PE. Troponin trends negative, and admitting and follow-up EKG with no new acute ST or T changes. Continue as needed and scheduled nebs, continue home inhalers. Continue with Mucomyst and hypertonic saline. Continue with home Roflumilast and azithromycin MWF. Patient is allergic to prednisone, will use Solu-Medrol -->> to p.o. methylprednisolone Pulmonology consult in this advanced COPD patient with COPD exacerbation, appreciate recommendation c/w solu medrol, cefepime started in the ED---- will discontinue. Other chronic medical conditions: HTN, PTSD, depression, anxiety, chronic anemia, cirrhosis --- continue with/resume home meds as and when able. Disposition: P[facility]: [facility] Code Status: Full Code VTE Prophyalxis: Heparin SQ PT/OT, CM to assist with DC planning. Admission and Anticipated Discharge Date Admission Date: January 21, 2023 Subjective Pt states that he is not happy with his care. Originally requesting to be transferred to [facility] in [place] but changed his mind later. States he would like to stay until Saturday, until his house is cleaned out of bed bugs. Review of Systems Review of Systems: All systems reviewed & are unremarkable except as noted in Subjective Physical Exam Physical Exam: General: Alert, oriented. No acute distress Psych: frustrated mood and affect Neuro: No gross deficits HEENT: NC/AT. CV: RRR Resp: Breath sounds decreased bilaterally, no increased effort of breathing. Abdomen:Soft, nontender, nondistended. No guarding. No organomegaly appreciated. Extremities: No edema in lower extremities bilaterally. Results & Data Results & Data Vital Signs (Past 12 Hours) Vital Signs Temp Pulse Pulse Resp BP BP Pulse Ox 01/25/23 08:00 88 01/25/23 16:45 37.0 C 101 H 17 111/85 90 01/25/23 15:22 90 18 90 01/25/23 12:12 36.6 C 92 H 20 114/63 95 01/25/23 10:55 88 16 92 01/25/23 08:05 36.8 C 84 20 121/73 97 01/25/23 07:10 78 18 97 O2 Del Method O2 Flow Rate 01/25/23 08:00 01/25/23 16:45 Nasal Cannula 6 01/25/23 15:22 Nasal Cannula 6 01/25/23 12:12 High Flow Nasal Cannula 8 01/25/23 10:55 Nasal Cannula 6 01/25/23 08:05 Nasal Cannula 8 01/25/23 07:10 Nasal Cannula 6
[2023-01-25] MEDS: busPIRone 7.5 MG TAB PO SCH (20:31)
[2023-01-25] MEDS: traZODone HCL 50 MG TAB PO SCH (20:31)
[2023-01-25] MEDS: SERTRALINE HCL 100 MG TABLET PO SCH (20:32)
[2023-01-25] MEDS: ARTIFICIAL TEARS OP SCH (20:32)
[2023-01-25] MEDS: MoRPHine SULFATE 2 MG/ML CARP IV PRN (22:53)
[2023-01-26] MEDS: MoRPHine SULFATE 2 MG/ML CARP IV PRN ×4 (02:10→20:09)
[2023-01-26] MEDS: SODIUM CHLOR 7% 4 ML NEB NEB SCH ×2 (07:27→19:19)
[2023-01-26] MEDS: BUDESONIDE 0.5 MG/2 ML VIAL (PULMICORT) INH SCH ×2 (07:28→19:19)
[2023-01-26] MEDS: FORMOTEROL 20 MCG/2 ML VIAL NEB SCH ×2 (07:28→19:18)
[2023-01-26] MEDS: ALBUT/IPRATROP 3MG/0.5MG NEB 3 ML VIAL NEB SCH ×4 (07:29→19:19)
[2023-01-26] MEDS: ACETYLCYSTEINE 10% INHAL SOLN 4 ML **DISPENSED BY RESP. INH SCH ×2 (07:29→19:19)
[2023-01-26] MEDS: CHOLECALCIFEROL 1,000 UNITS 25 MCG TAB PO SCH (08:31)
[2023-01-26] MEDS: ASPIRIN 81 MG ECTAB PO SCH (08:31)
[2023-01-26] MEDS: POTASSIUM CHLORIDE 10 MEQ TABCR PO SCH (08:31)
[2023-01-26] MEDS: methylPREDNISolone 4 MG TAB PO SCH (08:31)
[2023-01-26] MEDS: dilTIAZem HCL 240 MG CAPCR PO SCH (08:31)
[2023-01-26] MEDS: ROFLUMILAST 500 MCG TAB PO SCH (08:31)
[2023-01-26] MEDS: PANTOprazole 40 MG TAB PO SCH ×2 (08:31→20:01)
[2023-01-26] MEDS: ADVANCED PROBIOTIC 1250 MG CAPSULE PO SCH (08:31)
[2023-01-26] MEDS: guaiFENesin 600 MG TABCR PO SCH ×2 (08:31→20:01)
[2023-01-26] MEDS: UMECLIDINIUM BROMIDE 62.5MCG/BLISTER 7 PUFFS/INHALER INH SCH (08:32)
[2023-01-26] MEDS: HEPARIN SOD 5,000 UNIT/0.5 ML VIAL SQ SCH ×2 (08:32→20:01)
[2023-01-26] MEDS: ASCORBIC ACID 500 MG TAB PO SCH (08:33)
[2023-01-26 08:39] LABS: Basophils # (auto) 0.01 K/uL (0-0.2); Basophils % (auto) 0.1 %; Eosinophils # (auto) 0.14 K/uL (0-0.50); Hematocrit (blood only) 31.3 % (42.0-52.0); Hemoglobin 9.6 g/dl (14.0-18.0); Immature Granulocytes # (auto) 0.15 K/uL (0.01-0.20); Lymphocytes # (auto) 2.14 K/uL (1.2-3.4); Lymphocytes % (auto) 14.9 %; Mean Corpuscular Hemoglobin 26.4 pg (25.0-34.0); Mean Corpuscular Hgb Conc 30.7 g/dL (32.0-36.0); Mean Platelet Volume 10.9 fL (9.4-12.4); Monocytes # (auto) 1.41 K/uL (0.11-0.59); Monocytes % (auto) 9.8 %; Neutrophils # (auto) 10.52 K/uL (1.40-6.50); Neutrophils % (auto) 73.2 %; Platelet Count 203 K/uL (130-400); RDW Coefficient of Variation 14.6 % (11.5-14.5); RDW Standard Deviation 45.9 fL (36.4-46.3); Red Blood Count 3.64 M/uL (4.70-6.10); White Blood Count 14.37 K/ul (4.8-10.8)
[2023-01-26 08:52] LABS: BUN Creatinine Ratio 26.3 (10-20); Calcium 9.4 mg/dl (8.6-10.3); Creatinine Clr Calc Pharmacy 72.6 ml/min; Est GFR (African American) 92.3 ml/min; Est GFR (Non-African American) 79.7 ml/min; Potassium 4.1 mmol/L (3.5-5.1)
--- NOTE | 2023-01-26 16:46 | Hospitalist Progress Note ---
Date of Service January 26, 2023 Assessment & Plan (1) COPD exacerbation: Plan Acute on chronic respiratory failure: Acute exacerbation of COPD Leucocytosis: 01/25-Stable currently. Extensive discussion today. Pt angry and frustrated, states he was not happy that he had to go through the process of being "washed in cold water" and having his new shoes destroyed. Was originally requesting to be transferred to the [facility] in [place] but later changed his mind, stating he just wants to be heard. Would like to be discharged on 01/28 as he states his house is being cleaned due to the bed bugs. 01/26- Stable for discharge. Overnight was having difficulty urinating and getting cathed. Has saenz. PER PREVIOUS PROVIDER: likely 2/2 acute resp distress, procalcitonin negative. Entero-/rhinovirus respiratory infection: BioFire positive for the same. Symptomatic management. RUL nodule: 9 mm, [address] chest f/u. f/u pulm. 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 [facility]. Admitting CXR and CTA chest reviewed, no concern of PE. Troponin trends negative, and admitting and follow-up EKG with no new acute ST or T changes. Continue as needed and scheduled nebs, continue home inhalers. Continue with Mucomyst and hypertonic saline. Continue with home Roflumilast and azithromycin MWF. Patient is allergic to prednisone, will use Solu-Medrol -->> to p.o. methylprednisolone Pulmonology consult in this advanced COPD patient with COPD exacerbation, appreciate recommendation c/w solu medrol, cefepime started in the ED---- will discontinue. Other chronic medical conditions: HTN, PTSD, depression, anxiety, chronic anemia, cirrhosis --- continue with/resume home meds as and when able. Disposition: PCP: Dr. Patel [facility] Code Status: Full Code VTE Prophyalxis: Heparin SQ PT/OT, CM to assist with DC planning. Admission and Anticipated Discharge Date Admission Date: January 21, 2023 Subjective Pt states that he wants to use the toilet but he is being made to use a bedpan. Would like to use the toilet even though his oxygen saturations drop. States he would like to stay until Saturday, until his house is cleaned out of bed bugs. Denies other acute concerns today. Review of Systems Review of Systems: All systems reviewed & are unremarkable except as noted in Subjective Physical Exam Physical Exam: General: Alert, oriented. No acute distress Psych: frustrated mood and affect Neuro: No gross deficits HEENT: NC/AT. CV: RRR Resp: Breath sounds decreased bilaterally, no increased effort of breathing. Abdomen:Soft, nontender, nondistended. No guarding. No organomegaly appreciated. Extremities: No edema in lower extremities bilaterally. Results & Data Results & Data Vital Signs (Past 12 Hours) Vital Signs Temp Pulse Pulse Resp BP Pulse Ox O2 Del Method 01/26/23 15:58 76 01/26/23 14:11 83 18 92 Nasal Cannula 01/26/23 11:50 36.5 C 82 19 130/70 93 Nasal Cannula 01/26/23 11:12 85 18 100 Nasal Cannula 01/26/23 08:00 Nasal Cannula 01/26/23 08:10 36.5 C 81 19 121/75 90 Room Air 01/26/23 07:30 75 18 95 Nasal Cannula 01/26/23 07:24 72 O2 Flow Rate 01/26/23 15:58 01/26/23 14:11 6 01/26/23 11:50 11 01/26/23 11:12 11 01/26/23 08:00 6 01/26/23 08:10 01/26/23 07:30 6 01/26/23 07:24
[2023-01-26] MEDS: busPIRone 7.5 MG TAB PO SCH (20:00)
[2023-01-26] MEDS: traZODone HCL 50 MG TAB PO SCH (20:00)
[2023-01-26] MEDS: SERTRALINE HCL 100 MG TABLET PO SCH (20:00)
[2023-01-26] MEDS: ARTIFICIAL TEARS OP SCH (20:01)
[2023-01-27] MEDS: ALBUT/IPRATROP 3MG/0.5MG NEB 3 ML VIAL NEB SCH ×4 (07:15→19:10)
[2023-01-27] MEDS: ACETYLCYSTEINE 10% INHAL SOLN 4 ML **DISPENSED BY RESP. INH SCH ×2 (07:16→19:10)
[2023-01-27] MEDS: SODIUM CHLOR 7% 4 ML NEB NEB SCH ×2 (08:14→19:10)
[2023-01-27] MEDS: FORMOTEROL 20 MCG/2 ML VIAL NEB SCH ×2 (08:14→19:10)
[2023-01-27] MEDS: BUDESONIDE 0.5 MG/2 ML VIAL (PULMICORT) INH SCH ×2 (08:14→19:10)
[2023-01-27] MEDS: ROFLUMILAST 500 MCG TAB PO SCH (08:31)
[2023-01-27] MEDS: PANTOprazole 40 MG TAB PO SCH ×2 (08:31→20:46)
[2023-01-27] MEDS: ASCORBIC ACID 500 MG TAB PO SCH (08:31)
[2023-01-27] MEDS: dilTIAZem HCL 240 MG CAPCR PO SCH (08:31)
[2023-01-27] MEDS: guaiFENesin 600 MG TABCR PO SCH ×2 (08:31→20:46)
[2023-01-27] MEDS: POTASSIUM CHLORIDE 10 MEQ TABCR PO SCH (08:32)
[2023-01-27] MEDS: CHOLECALCIFEROL 1,000 UNITS 25 MCG TAB PO SCH (08:32)
[2023-01-27] MEDS: HEPARIN SOD 5,000 UNIT/0.5 ML VIAL SQ SCH ×2 (08:32→20:46)
[2023-01-27] MEDS: ASPIRIN 81 MG ECTAB PO SCH (08:32)
[2023-01-27] MEDS: ADVANCED PROBIOTIC 1250 MG CAPSULE PO SCH (08:32)
[2023-01-27] MEDS: methylPREDNISolone 4 MG TAB PO SCH (08:32)
[2023-01-27] MEDS: UMECLIDINIUM BROMIDE 62.5MCG/BLISTER 7 PUFFS/INHALER INH SCH (08:33)
[2023-01-27] MEDS: MoRPHine SULFATE 2 MG/ML CARP IV PRN ×2 (13:03→20:48)
--- NOTE | 2023-01-27 15:58 | Hospitalist Progress Note ---
Date of Service January 27, 2023 Assessment & Plan (1) COPD exacerbation: Plan Acute on chronic respiratory failure: Acute exacerbation of COPD Leucocytosis: 01/25-Stable currently. Extensive discussion today. Pt angry and frustrated, states he was not happy that he had to go through the process of being "washed in cold water" and having his new shoes destroyed. Was originally requesting to be transferred to [facility] [place] but later changed his mind, stating he just wants to be heard. Would like to be discharged on 01/28 as he states his house is being cleaned due to the bed bugs. 01/26- Stable for discharge. Overnight was having difficulty urinating and getting cathed. Has saenz. 01/27- Stable, no acute concerns. Awaiting placement or discharge home. PER PREVIOUS PROVIDER: likely 2/2 acute resp distress, procalcitonin negative. Entero-/rhinovirus respiratory infection: BioFire positive for the same. Symptomatic management. RUL nodule: 9 mm, [address] chest f/u. f/u pulm. 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 [facility]. Admitting CXR and CTA chest reviewed, no concern of PE. Troponin trends negative, and admitting and follow-up EKG with no new acute ST or T changes. Continue as needed and scheduled nebs, continue home inhalers. Continue with Mucomyst and hypertonic saline. Continue with home Roflumilast and azithromycin MWF. Patient is allergic to prednisone, will use Solu-Medrol -->> to p.o. methylprednisolone Pulmonology consult in this advanced COPD patient with COPD exacerbation, appreciate recommendation c/w solu medrol, cefepime started in the ED---- will discontinue. Other chronic medical conditions: HTN, PTSD, depression, anxiety, chronic anemia, cirrhosis --- continue with/resume home meds as and when able. Disposition: PCP: Dr. Patel [facility] Code Status: Full Code VTE Prophyalxis: Heparin SQ PT/OT, CM to assist with DC planning. Admission and Anticipated Discharge Date Admission Date: January 21, 2023 Subjective Pt states that he has been stable Denies other acute concerns today. Review of Systems Review of Systems: All systems reviewed & are unremarkable except as noted in Subjective Physical Exam Physical Exam: General: Alert, oriented. No acute distress Psych: frustrated mood and affect Neuro: No gross deficits HEENT: NC/AT. CV: RRR Resp: Breath sounds decreased bilaterally, no increased effort of breathing. Abdomen:Soft, nontender, nondistended. No guarding. No organomegaly appreciated. Extremities: No edema in lower extremities bilaterally. Results & Data Results & Data Vital Signs (Past 12 Hours) Vital Signs Temp Pulse Pulse Pulse Resp BP BP 01/27/23 15:29 85 01/27/23 14:37 81 16 01/27/23 11:23 01/27/23 11:20 37.1 C 88 20 111/63 01/27/23 10:56 81 16 01/27/23 07:37 80 01/27/23 07:33 36.9 C 85 18 112/69 01/27/23 07:13 78 20 01/27/23 04:22 36.8 C 80 18 113/71 Pulse Ox O2 Del Method O2 Flow Rate 01/27/23 15:29 01/27/23 14:37 94 Nasal Cannula 6 01/27/23 11:23 Nasal Cannula 6 01/27/23 11:20 94 High Flow Nasal Cannula 6 01/27/23 10:56 94 Nasal Cannula 6 01/27/23 07:37 01/27/23 07:33 93 High Flow Nasal Cannula 6 01/27/23 07:13 93 Nasal Cannula 6 01/27/23 04:22 100 Nasal Cannula 5
[2023-01-27 16:30] LABS: Hematocrit (blood only) 29.1 % (42.0-52.0); Mean Corpuscular Hemoglobin 26.4 pg (25.0-34.0); Mean Corpuscular Hgb Conc 30.9 g/dL (32.0-36.0); Mean Corpuscular Volume 85.3 fL (80.0-100.0); Mean Platelet Volume 11.2 fL (9.4-12.4); Platelet Count 164 K/uL (130-400); RDW Coefficient of Variation 14.2 % (11.5-14.5); RDW Standard Deviation 44.3 fL (36.4-46.3); Red Blood Count 3.41 M/uL (4.70-6.10)
[2023-01-27 16:49] LABS: BUN Creatinine Ratio 25.5 (10-20); Calcium 8.9 mg/dl (8.6-10.3); Creatinine Clr Calc Pharmacy 66.6 ml/min; Est GFR (African American) 84.1 ml/min; Est GFR (Non-African American) 72.6 ml/min; Potassium 4.7 mmol/L (3.5-5.1)
[2023-01-27 16:59] LABS: Basophils # (auto) 0.01 K/uL (0-0.2); Basophils % (auto) 0.1 %; Immature Granulocytes % (auto) 0.8 %; Lymphocytes # (auto) 0.27 K/uL (1.2-3.4); Lymphocytes % (auto) 2.2 %; Monocytes # (auto) 0.13 K/uL (0.11-0.59); Monocytes % (auto) 1.1 %; Neutrophils # (auto) 11.79 K/uL (1.40-6.50); Neutrophils % (auto) 95.8 %
[2023-01-27] MEDS: busPIRone 7.5 MG TAB PO SCH (20:45)
[2023-01-27] MEDS: traZODone HCL 50 MG TAB PO SCH (20:45)
[2023-01-27] MEDS: SERTRALINE HCL 100 MG TABLET PO SCH (20:46)
[2023-01-27] MEDS: ARTIFICIAL TEARS OP SCH (20:46)
[2023-01-28] MEDS: FORMOTEROL 20 MCG/2 ML VIAL NEB SCH (07:04)
[2023-01-28] MEDS: SODIUM CHLOR 7% 4 ML NEB NEB SCH (07:04)
[2023-01-28] MEDS: ALBUT/IPRATROP 3MG/0.5MG NEB 3 ML VIAL NEB SCH ×3 (07:06→14:17)
[2023-01-28] MEDS: BUDESONIDE 0.5 MG/2 ML VIAL (PULMICORT) INH SCH (07:06)
[2023-01-28] MEDS: ACETYLCYSTEINE 10% INHAL SOLN 4 ML **DISPENSED BY RESP. INH SCH (07:06)
[2023-01-28] MEDS: POTASSIUM CHLORIDE 10 MEQ TABCR PO SCH (09:06)
[2023-01-28] MEDS: HEPARIN SOD 5,000 UNIT/0.5 ML VIAL SQ SCH (09:06)
[2023-01-28] MEDS: PANTOprazole 40 MG TAB PO SCH (09:06)
[2023-01-28] MEDS: guaiFENesin 600 MG TABCR PO SCH (09:06)
[2023-01-28] MEDS: dilTIAZem HCL 240 MG CAPCR PO SCH (09:06)
[2023-01-28] MEDS: ASPIRIN 81 MG ECTAB PO SCH (09:07)
[2023-01-28] MEDS: CHOLECALCIFEROL 1,000 UNITS 25 MCG TAB PO SCH (09:07)
[2023-01-28] MEDS: CYANOCOBALAMIN (B-12) 500 MCG TABLET PO SCH (09:07)
[2023-01-28] MEDS: ASCORBIC ACID 500 MG TAB PO SCH (09:07)
[2023-01-28] MEDS: UMECLIDINIUM BROMIDE 62.5MCG/BLISTER 7 PUFFS/INHALER INH SCH (09:07)
[2023-01-28] MEDS: ROFLUMILAST 500 MCG TAB PO SCH (09:07)
[2023-01-28] MEDS: methylPREDNISolone 4 MG TAB PO SCH (09:07)
[2023-01-28] MEDS: AZITHROMYCIN 250 MG TAB PO SCH (09:07)
[2023-01-28] MEDS ORDERED: TAMSULOSIN HCL 0.4 MG CAP PO ONE (10:30)
[2023-01-28] MEDS: MoRPHine SULFATE 2 MG/ML CARP IV PRN (10:44)
--- NOTE | 2023-01-28 13:00 | Hospitalist Progress Note ---
Date of Service January 28, 2023 Assessment & Plan (1) COPD exacerbation: Plan Acute on chronic respiratory failure: Acute exacerbation of COPD Leucocytosis: 01/25-Stable currently. Extensive discussion today. Pt angry and frustrated, states he was not happy that he had to go through the process of being "washed in cold water" and having his new shoes destroyed. Was originally requesting to be transferred to the [facility] in [place] but later changed his mind, stating he just wants to be heard. Would like to be discharged on 01/28 as he states his house is being cleaned due to the bed bugs. 01/26- Stable for discharge. Overnight was having difficulty urinating and getting cathed. Has saenz. 01/27- Stable, no acute concerns. Awaiting placement or discharge home. 01/28/2023 He has been stable without any acute distress at rest with history of severe COPD and came in with acute on chronic respiratory failure. He is on 6 L nasal cannula oxygen at home Has been saturating normally on room air and has minimal cough With exertion her saturation goes down and he will have a formal to a stable O2 saturation test prior to discharge this afternoon His catheter will be discontinued and he will be given Flomax He is agreeable with that and is ready to be discharged in the evening. He will be given Medrol dose pack and Flomax on discharge and his other medications will be continued PER PREVIOUS PROVIDER: likely 2/2 acute resp distress, procalcitonin negative. Entero-/rhinovirus respiratory infection: BioFire positive for the same. Symptomatic management. RUL nodule: 9 mm, [address] chest f/u. f/u pulm. 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 [facility]. Admitting CXR and CTA chest reviewed, no concern of PE. Troponin trends negative, and admitting and follow-up EKG with no new acute ST or T changes. Continue as needed and scheduled nebs, continue home inhalers. Continue with Mucomyst and hypertonic saline. Continue with home Roflumilast and azithromycin MWF. Patient is allergic to prednisone, will use Solu-Medrol -->> to p.o. methylprednisolone Pulmonology consult in this advanced COPD patient with COPD exacerbation, appreciate recommendation c/w solu medrol, cefepime started in the ED---- will discontinue. Other chronic medical conditions: HTN, PTSD, depression, anxiety, chronic anemia, cirrhosis --- continue with/resume home meds as and when able. Disposition: PCP: Dr. Patel with [facility] Code Status: Full Code VTE Prophyalxis: Heparin SQ PT/OT, CM to assist with DC planning. Admission and Anticipated Discharge Date Admission Date: January 21, 2023 Subjective 01/28/2023 The patient was seen and examined in telemetry unit He has been saturating normally on room air but requires up to 6 L with exertion He does have end-stage COPD and required 6 L at home regularly Denies any other symptoms except that he has a Saenz Review of Systems Review of Systems: All systems reviewed and are unremarkable except as noted below Physical Exam Physical Exam: Lying in bed comfortably Constitutional: well developed, well nourished, + ill appearing and average body habitus ENMT: external ear and nose normal, oropharynx normal Neck: trachea midline, no thyromegaly Respiratory: + respiratory distress (Minimal distress at rest) Auscultation: + diminished lung sounds and + crackles (Occasional crackles at the bases) Cardiovascular: Rate/Rhythm: regular rate and regular rhythm; not tachycardic Heart Sounds: normal S1 and normal S2; no murmur Extremities: no edema Gastrointestinal (Abdomen): Inspection/Auscultation: normal bowel sounds; abdomen not distended Percussion/Palpation: abdomen soft; abdomen nontender Musculoskeletal: no cyanosis or clubbing, extremities motor strength 5/5 No acute arthritis involving any joint Neurologic: normal touch/pain/proprioception and moves all extremities; no focal motor deficits Lymphatic: no cervical or axillary lymphadenopathy Results & Data Results & Data Vital Signs (Past 12 Hours) Vital Signs Temp Pulse Pulse Resp BP Pulse Ox O2 Del Method 01/28/23 12:01 36.8 C 72 18 131/72 Room Air 01/28/23 09:47 High Flow Nasal Cannula 01/28/23 08:56 36.6 C 67 18 125/61 97 Room Air 01/28/23 07:41 77 01/28/23 07:06 89 18 100 Nasal Cannula 01/28/23 03:24 36.5 C 80 20 114/68 96 Nasal Cannula O2 Flow Rate 01/28/23 12:01 01/28/23 09:47 5 01/28/23 08:56 01/28/23 07:41 01/28/23 07:06 6 01/28/23 03:24 6 Laboratory Results Short CBC 01/27/23 Range/Units 16:09 WBC 12.30 H (4.8-10.8) K/ul Hgb 9.0 L (14.0-18.0) g/dl Hct 29.1 L (42.0-52.0) % Plt Count 164 (130-400) K/uL BMP 01/27/23 16:09 Sodium 133 L Potassium 4.7 Chloride 94 L Carbon Dioxide 33 H BUN 26 H Creatinine 1.02 Glucose 254 H Calcium 8.9 Medications Administered Current Inpatient Medications Acetaminophen (Acetaminophen 325 Mg Tab) 650 mg PO Q4H PRN PRN Reason: Pain or Fever Stop: 02/20/23 17:54 Last Admin: 01/22/23 20:45 Dose: 650 mg Acetylcysteine (Acetylcysteine 10% Inhal Soln 4 Ml Dispensed By Resp.) 2 ml INH BIDR [facility] Stop: 02/20/23 22:57 Last Admin: 01/28/23 07:06 Dose: Not Given Al Hydrox/Mg Hydrox/Simethicone (Aluminum/Magnesium Susp 30 Ml Udc) 15 ml PO Q4H PRN PRN Reason: Dyspepsia Stop: 02/20/23 17:54 Albuterol (Albuterol Hfa 8 Gm Inhaler) 2 puffs INH Q6H PRN PRN Reason: Shortness Of Breath Or Wheezing Stop: 02/20/23 22:57 Albuterol (Albut/Ipratrop 3mg/0.5mg Neb 3 Ml Vial) 3 ml NEB QIDR [facility]; Protocol Stop: 02/20/23 22:57 Last Admin: 01/28/23 07:06 Dose: Not Given Artificial Tears (Artificial Tears) 1 drops OP HS [facility] Stop: 02/20/23 22:57 Last Admin: 01/27/23 20:46 Dose: Not Given Ascorbic Acid (Ascorbic Acid 500 Mg Tab) 1,000 mg PO DAILY [facility] Stop: 02/21/23 08:59 Last Admin: 01/28/23 09:07 Dose: 1,000 mg Aspirin (Aspirin 81 Mg Ectab) 81 mg PO DAILY [facility] Stop: 02/21/23 08:59 Last Admin: 01/28/23 09:07 Dose: 81 mg Azithromycin (Azithromycin 250 Mg Tab) 250 mg PO MoWeFr@0900 [facility] Stop: 02/22/23 08:59 Last Admin: 01/28/23 09:07 Dose: 250 mg Budesonide (Budesonide 0.5 Mg/2 Ml Vial (Pulmicort)) 0.5 mg INH BIDR [facility] Stop: 02/20/23 22:57 Last Admin: 01/28/23 07:06 Dose: 0.5 mg Buspirone HCl (Buspirone 7.5 Mg Tab) 7.5 mg PO HS [facility] Stop: 02/20/23 22:57 Last Admin: 01/27/23 20:45 Dose: 7.5 mg Cyanocobalamin (Cyanocobalamin (B-12) 500 Mcg Tablet) 1,000 mcg PO MoFr@0900 [facility] Stop: 02/24/23 08:59 Last Admin: 01/28/23 09:07 Dose: 1,000 mcg Diltiazem HCl (Diltiazem Hcl 240 Mg Capcr) 240 mg PO DAILY [facility] Stop: 02/21/23 08:59 Last Admin: 01/28/23 09:06 Dose: 240 mg Diphenhydramine HCl (Diphenhydramine Capsule 25 Mg Cap) 25 mg PO TID PRN PRN Reason: ITCHING/CONGESTION Stop: 02/20/23 22:57 Formoterol Fumarate (Formoterol 20 Mcg/2 Ml Vial) 20 mcg NEB BIDR [facility] Stop: 02/20/23 22:57 Last Admin: 01/28/23 07:04 Dose: 20 mcg Guaifenesin (Guaifenesin 600 Mg Tabcr) 1,200 mg PO BID [facility] Stop: 02/20/23 22:57 Last Admin: 01/28/23 09:06 Dose: 1,200 mg Heparin Sodium (Porcine) (Heparin Sod 5,000 Unit/0.5 Ml Vial) 5,000 units SQ Q12 [facility] Stop: 02/20/23 20:59 Last Admin: 01/28/23 09:06 Dose: 5,000 units Hydrocortisone (Hydrocortisone 1% Crm 30 Gm Tube) 1 appln EXT BID PRN PRN Reason: ITCHINESS Stop: 02/20/23 23:18 Lactobacillus Acidophilus (Advanced Probiotic 1250 Mg Capsule) 2 cap PO SuTuThSa@0900 [facility] Stop: 02/21/23 08:59 Last Admin: 01/27/23 08:32 Dose: 2 cap Loperamide HCl (Loperamide Hcl 2 Mg Cap) 2 mg PO BID PRN PRN Reason: Diarrhea Stop: 02/20/23 23:18 Methylprednisolone (Methylprednisolone 4 Mg Tab) 40 mg PO QAM [facility] Stop: 02/23/23 08:59 Last Admin: 01/28/23 09:07 Dose: 40 mg Morphine Sulfate (Morphine Sulfate 2 Mg/Ml Carp) 2 mg IV Q3H PRN PRN Reason: Pain Stop: 02/04/23 23:47 Last Admin: 01/28/23 10:44 Dose: 2 mg Multi-Ingredient Cream (Eucerin Cr 120 Gm Jar) 1 appln TOP HS PRN PRN Reason: Dry Skin Stop: 02/20/23 23:28 Nitroglycerin (Nitroglycerin Sl 0.4 Mg/Tab Tab) 0.4 mg SL Q5M PRN PRN Reason: Chest Pain Stop: 02/20/23 17:54 Pantoprazole Sodium (Pantoprazole 40 Mg Tab) 40 mg PO BID [facility] Stop: 02/20/23 22:57 Last Admin: 01/28/23 09:06 Dose: 40 mg Polyethylene Glycol (Polyethylene (Miralax) 17 Gm Pack) 17 gm PO DAILY PRN PRN Reason: Constipation Stop: 02/20/23 17:54 Potassium Chloride (Potassium Chloride 10 Meq Tabcr) 10 meq PO DAILY [facility] Stop: 02/21/23 08:59 Last Admin: 01/28/23 09:06 Dose: 10 meq Roflumilast (Roflumilast 500 Mcg Tab) 500 mcg PO DAILY [facility] Stop: 02/21/23 08:59 Last Admin: 01/28/23 09:07 Dose: 500 mcg Sertraline HCl (Sertraline Hcl 100 Mg Tablet) 200 mg PO HS [facility] Stop: 02/20/23 22:57 Last Admin: 01/27/23 20:46 Dose: 200 mg Sodium Chloride (Sodium Chlor 7% 4 Ml Neb) 4 ml NEB BIDR [facility] Stop: 02/20/23 18:59 Last Admin: 01/28/23 07:04 Dose: 4 ml Tamsulosin HCl (Tamsulosin Hcl 0.4 Mg Cap) 0.4 mg PO HS [facility] Stop: 02/27/23 20:59 Tramadol HCl (Tramadol Hcl 50 Mg Tablet) 25 mg PO Q4H PRN PRN Reason: Pain Stop: 02/20/23 23:46 Trazodone HCl (Trazodone Hcl 50 Mg Tab) 150 mg PO HS [facility] Stop: 02/20/23 22:57 Last Admin: 01/27/23 20:45 Dose: 150 mg Umeclidinium Marion (Umeclidinium Marion 62.5mcg/Blister 7 Puffs/Inhaler) 1 puffs INH DAILY [facility] Stop: 02/21/23 08:59 Last Admin: 01/28/23 09:07 Dose: 1 puffs Vitamin D (Cholecalciferol 1,000 Units 25 Mcg Tab) [facility] Stop: 02/21/23 08:59 Last Admin: 01/28/23 09:07 Dose: 2,000 units
--- NOTE | 2023-01-28 18:29 | Discharge Summary ---
Date of Service January 28, 2023 Admission HPI Per Admitting Provider 72-year-old male with PMH of COPD on chronic 6 L of oxygen, cirrhosis, HTN, PTSD, depression with anxiety, tobacco abuse, anemia presented to the ED 01/21 with complaint of SPO2 dropping down to 35% at home per patient. Patient reports he has been having worsening shortness of breath with exertion, has been having veneer drier feeder cough since last 2 to 3 weeks, generally he has cough with phlegm at baseline. Denies fever or chills. Patient does report worsening shortness of breath with exertion and chest tightness today prior to arrival. Patient denies any acute changes in his bowel or bladder habits. Patient denies any headache or dizziness. Patient denies any radiation of his chest discomfort, is unaware of any relieving factors for his chest discomfort. Patient reports he quit smoking 7 years ago, denies use of alcohol or drugs. Medications were reviewed with the patient. Plan of care discussed with the patient. DNR/DNI Admission Exam Per Admitting Provider Physical Exam: GENERAL: Alert and oriented x3. NAD, on 8L O2 via OM. Appears chroincal ly ill/frail/older than stated age. [place] HEENT: No pal michelle, no icterus. Pupils equal, roun d and reactive to light. Oral mucos a moist. NECK: No JVD, no neck mass es. HEART: S1 and S2 heard. Regula r rate and rhythm. No murmur, no ga llop. RESPIRATORY SYSTEM: Normal AP diameter. + acce ssory muscle use. + wheezing, no cr ackles. decreased breath sounds. ABD OMEN: Soft, bowel sounds present, n ontender, no diste ntion. CENTRAL NER VOUS SYSTEM: No f acial droop. Spee ch is clear. Obey s simple commands. Moves extremitie s. EXTREMITIES: N o edema, no erythe ma seen. Principal Diagnosis Severe COPD with exacerbation, acute on chronic respiratory failure, hypertension, PTSD Discharge Exam Lying in bed comfortably Constitutional well developed, well nourished, + ill appearing and average body habitus ENMT external ear and nose normal, oropharynx normal Neck trachea midline, no thyromegaly Respiratory + respiratory distress (Minimal distress at rest) Auscultation: + diminished lung sounds and + crackles (Occasional crackles at the bases) Cardiovascular Rate/Rhythm: regular rate and regular rhythm; not tachycardic Heart Sounds: normal S1 and normal S2; no murmur Extremities: no edema Gastrointestinal (Abdomen) Inspection/Auscultation: normal bowel sounds; abdomen not distended Percussion/Palpation: abdomen soft; abdomen nontender Musculoskeletal no cyanosis or clubbing, extremities motor strength 5/5 Neurologic normal touch/pain/proprioception and moves all extremities; no focal motor deficits Lymphatic no cervical or axillary lymphadenopathy Discharge Data Allergies Allergy/AdvReac Type Severity Reaction Status Date / Time bee venom protein (honey bee) Allergy Severe ANAPHYLAXIS Verified 01/21/23 16:51 amoxicillin Allergy Intermediate FACIAL Verified 01/21/23 16:51 SWELLING (EYES SWELLED SHUT) clavulanic acid Allergy Intermediate FACIAL Verified 01/21/23 16:51 SWELLING (EYES SWELLED SHUT) pneumococcal vaccine Allergy Intermediate SWELLING Verified 01/21/23 16:51 Ljjleub-UN[facility]-NgA Reductase Allergy Intermediate CPK'S GO Verified 01/21/23 16:51 Inhibitor THROUGH [Wprtxkt-Tkc-Tys Reductase ROOF Inhibitor] prednisone AdvReac Intermediate confusion Verified 01/21/23 16:51 and agitation Consultations 01/21/23 17:55 Consult Pulmonology Routine Ordered Studies 01/21/23 15:40 CT for pulmonary embolism PE [CT angio chest PE protocol] Stat Hospital Course (1) COPD exacerbation: Plan Acute on chronic respiratory failure: Acute exacerbation of COPD Leucocytosis: 01/25-Stable currently. Extensive discussion today. Pt angry and frustrated, states he was not happy that he had to go through the process of being "washed in cold water" and having his new shoes destroyed. Was originally requesting to be transferred to the [facility] in [place] but later changed his mind, stating he just wants to be heard. Would like to be discharged on 01/28 as he states his house is being cleaned due to the bed bugs. 01/26- Stable for discharge. Overnight was having difficulty urinating and getting cathed. Has saenz. 01/27- Stable, no acute concerns. Awaiting placement or discharge home. 01/28/2023 He has been stable without any acute distress at rest with history of severe COPD and came in with acute on chronic respiratory failure. He is on 6 L nasal cannula oxygen at home Has been saturating normally on room air and has minimal cough With exertion her saturation goes down and he will have a formal to a stable O2 saturation test prior to discharge this afternoon His catheter will be discontinued and he will be given Flomax He is agreeable with that and is ready to be discharged in the evening. He will be given Medrol dose pack and Flomax on discharge and his other medications will be continued PER PREVIOUS PROVIDER: likely 2/2 acute resp distress, procalcitonin negative. Entero-/rhinovirus respiratory infection: BioFire positive for the same. Symptomatic management. RUL nodule: 9 mm, [address] chest f/u. f/u pulm. 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 Follows with [facility]. Admitting CXR and CTA chest reviewed, no concern of PE. Troponin trends negative, and admitting and follow-up EKG with no new acute ST or T changes. Continue as needed and scheduled nebs, continue home inhalers. Continue with Mucomyst and hypertonic saline. Continue with home Roflumilast and azithromycin MWF. Patient is allergic to prednisone, will use Solu-Medrol -->> to p.o. methylprednisolone Pulmonology consult in this advanced COPD patient with COPD exacerbation, appreciate recommendation c/w solu medrol, cefepime started in the ED---- will discontinue. Other chronic medical conditions: HTN, PTSD, depression, anxiety, chronic anemia, cirrhosis --- continue with/resume home meds as and when able. Disposition: PCP: Dr. Patel with [facility] Code Status: Full Code VTE Prophyalxis: Heparin SQ PT/OT, CM to assist with DC planning. Total Time Total Time Spent Total Time Spent (In Minutes): 35 minutes Discharge Plan Discharge Items Patient Disposition: Home - Home Health Services Reason For Visit: COPD EXACERBATION Discharge Diagnosis: Severe COPD with exacerbation, acute on chronic respiratory failure, hypertension, PTSD Condition on Discharge: Fair Activity: Resume your previous activity Non-emergency contact: Primary Care Provider Call non-emergency contact if: you have any medication questions and your symptoms worsen Follow-up/Referrals: [facility],Hospital [Primary Care Provider] - (Please make an appointment with your PCP within 7 days.) Diet: Heart Healthy Addtl Attending Provider Instructions: Please take precautions to avoid falls Take your medications as advised Please give appointments with your healthcare providers You will need to have a repeat CT scan of the chest to evaluate right upper lobe nodule You need to follow-up appointment with outpatient team physician Pending Studies at Discharge: No Stand-Alone Forms: My [facility], Smoking Cessation Medications and DC Order Prescriptions: New methylprednisolone [Methylpred DP] 4 mg tablets,dose pack 4 mg PO TID Qty: 21 0RF Rx Instructions: 1 pack as directed tamsulosin 0.4 mg Capsule 0.4 mg PO HS Qty: 30 0RF Continued formoterol fumarate [Perforomist] 20 mcg/2 mL solution for nebulization 20 mcg NEB BID 30 Days Qty: 120 5RF acetylcysteine 100 mg/mL (10 %) solution 2 ml inhalation BID Qty: 100 3RF Rx Instructions: mix with nss albuterol sulfate 90 mcg/actuation Hfa Aerosol Inhaler 2 puff INHALATION Q6H PRN (Reason: Shortness Of Breath Or Wheezing) Rx Instructions: rescue inh sertraline 100 mg Tablet 200 mg PO HS trazodone 150 mg Tablet 150 mg PO HS omeprazole 20 mg Capsule,Delayed Release(Dr/Ec) 20 mg PO BID epinephrine [EpiPen] 0.3 mg/0.3 mL Auto-Injector 0.3 mg IM DIRECTED PRN (Reason: Allergic Reaction) cholecalciferol (vitamin D3) [Vitamin D3] 25 mcg (1,000 unit) Capsule 2,000 unit PO QAM cyanocobalamin (vitamin B-12) [Vitamin B-12] 1,000 mcg Tablet 1,000 mcg PO 2XWK Rx Instructions: TAKE ON MON & FRI. Incruse Ellipta 62.5 mcg/actuation Blister With Device 1 inh inhalation DAILY 30 Days Qty: 30 2RF budesonide 0.25 mg/2 mL Suspension For Nebulization 0.5 mg INHALATION BID Rx Instructions: unknown srtength buspirone 15 mg Tablet 7.5 mg PO HS ascorbic acid (vitamin C) [Vitamin C] 1,000 mg Tablet 1 g PO DAILY Eucerin Cream 1 applic TOPICAL DAILY PRN (Reason: Dry Skin) Rx Instructions: before bed Probiotic 3 billion cell Capsule 3 mmu cells PO 4XWK Rx Instructions: TAKES SUN, TUES, THURS, & SAT. administer with a meal potassium chloride 20 mEq Tablet Extended Release 10 meq PO DAILY ipratropium-albuterol 0.5 mg-3 mg(2.5 mg base)/3 mL solution for nebulization 3 ml NEB QID PRN (Reason: Shortness Of Breath Or Wheezing) Rx Instructions: also q4h prn for sob/wheezing azithromycin 250 mg Tablet 250 mg PO 3XWK Hold Instructions: Resume on 10/10/22. Rx Instructions: TAKE THIS MED EVERY MON/WED/FRI diltiazem HCl [Cardizem CD] 240 mg Capsule,Extended Release 24hr 240 mg PO DAILY roflumilast [Daliresp] 500 mcg Tablet 500 mcg PO DAILY guaifenesin [Mucinex] 600 mg Tablet Extended Release 12hr 1,200 mg PO BID hydrocortisone 1 % Lotion 1 applic TOPICAL BID PRN (Reason: ITCHINESS) loperamide 2 mg Tablet 2 mg PO BID PRN (Reason: Diarrhea) aspirin 81 mg Tablet,Delayed Release (Dr/Ec) 81 mg PO DAILY diphenhydramine HCl [Benadryl] 25 mg Capsule 25 mg PO TID PRN (Reason: ITCHING/CONGESTION) sodium chloride 0.9 % Solution For Nebulization 2.5 ml INHALATION BID Rx Instructions: USE WITH ACETYLCYSTEINE Ensure Liquid 1 ea PO DAILY Lubricant Eye (cmc-glycerin) 0.5-0.9 % Drops 1 drp OPB HS Lubriderm Daily Moisture Lotion 1 applic TOPICAL BID PRN (Reason: Dry Skin) Discharge Orders: Discharge Order (Routine); Ordered 01/28/23 Ordered By: Emeli Sandoval Admission Data Admit Date/Time: 01/21/23 17:55 Attending Provider: Emeli Sandoval Admit Provider: Fidel Reilly Primary Care Provider: [facility] Other Providers: Luciano Chow ; Gerhard Mehta ; Joshua Abel ; Keon Marlow ; Lisbeth Osuna ; Aye Rodrigez ; Isha Burton ; Riaz Dukes ; Fidel Reilly ; Meryl Hooks Other Interventions: Discharge Summary Assessment (RN) Last Done: 01/28/23 15:38
[2023-01-28] MEDS ORDERED: TAMSULOSIN HCL 0.4 MG CAP PO SCH (21:00)
== END 2023-01-28 17:05 | disposition home health service (06) | DRG 190 ==
LOC: ED 14:08 → 2S 17:55 → SUATTDRO 17:55 → 2S 22:31